=== PATIENT | female | born 1970 | race African-American/Black ===

== ENCOUNTER 2018-07-15 16:20 | Emergency (ER) | payer SELFPAY ==
[2018-07-15] MEDS ORDERED: KETOROLAC 30 MG/ML INJ ONE (17:01)
[2018-07-15] MEDS ORDERED: NA CHLORIDE 0.9% 1,000 ML ONE (17:01)
[2018-07-15 17:09] LABS: Absolute Lymphocytes (CBC) 1.4 K/uL (0.7-4.9); Absolute Monocytes 0.6 K/uL (0.1-1.3); Absolute Neutrophil 7.3 K/uL (1.8-8.0); Eosinophils % 1.4 % (0-4.4); Hematocrit 41.6 % (36.0-45.0); Lymphocytes % 14.2 % (15.3-44.8); MCH 30.2 pg (27.0-35.0); MCV 89.9 fL (80-100); MPV 8.2 fL (7.6-11.3); Monocytes % 6.7 % (3.3-12.3); RBC Red Blood Cell Count 4.62 M/uL (3.86-4.86)
--- NOTE | 2018-07-15 17:18 | RAD REPORT ---
EXAM DESCRIPTION: CT - Stone Protocol - 07/15/2018 5:06 pm CLINICAL HISTORY: Abdominal pain. Right flank pain COMPARISON: 2015 TECHNIQUE: Computed axial tomography of the abdomen pelvis was obtained without oral or IV contrast. Lack of IV and oral contrast limits evaluation of solid organs, bowel, and vessels. Coronal reformat matthew images were obtained and reviewed. All CT scans are performed using dose optimization technique as appropriate and may include automated exposure control or mA/KV adjustment according to patient size. FINDINGS: Bilateral renal calculi. Extrarenal pelves. Dilatation right renal calyces. Marked dilatat ion of the right extrarenal pelvis. A 9 millimeter calculus right ureteral pelvic junction Hounsfield unit 960 Small hepatic cysts. Spleen, pancreas and adrenals appear grossly normal There is no evidence of diverticulitis. The appendix appears normal. 2 centimeter right ovarian cyst. Small amount of free fluid IMPRESSION: 9 millimeter calculus right ureteral pelvic junction. Marked dilatation of the right ext rarenal pelvis. Mild dilatation of the right renal calices
[2018-07-15 17:27] LABS: Albumin 3.7 g/dL (3.4-5.0); Bilirubin Direct 0.1 mg/dL (0-0.2); Bilirubin Total 0.5 mg/dL (0.2-1.0); Potassium 3.7 mmol/L (3.5-5.1); Protein, Total 7.5 g/dL (6.4-8.2)
[2018-07-15 17:54] LABS: Urine Blood 2+ (NEG); Urine Glucose NEGATIVE (NEG); Urine Protein 2+ (NEG); Urine pH 8.5 (5.0-7.0)
[2018-07-15 17:54] LABS: Urine Amorphous Sediment 2+ /HPF (NONE SEEN); Urine Bacteria 20-50 /HPF (<20); Urine Culture Reflex Order NOT NEEDED; Urine RBC 20-50 /HPF (NONE SEEN)
--- NOTE | 2018-07-15 18:51 | RAD REPORT ---
EXAM DESCRIPTION: RAD - Abdomen 1 View (KUB) - 07/15/2018 6:42 pm CLINICAL HISTORY: Abdomen pain. FINDINGS: The bowel gas pattern is unremarkable. A 9 millimeter calculus adjacent to the right aspect of the L4 vertebral body lies within a dilated r ight renal pelvis
--- NOTE | 2018-07-15 19:00 | ER ---
Nurse's Notes [facility] Name: Joanna Lim Age: 48 yrs Sex: Female : 1970 Arrival Date: 07/15/2018 Time: 16:24 Bed 19 Private MD: None, None Diagnosis: Calculus right ureteral pelvic junction Presentation: 07/15 16:34 Presenting complaint: Patient states: right flank pain and RLQ pain. Diarrhea sv yesterday. Transition of care: patient was not received from another setting of care. Onset of symptoms was July 14, 2018. Care prior to arrival: None. 16:34 Method Of Arrival: Ambulatory sv 16:34 Acuity: JAYSHREE 3 sv 16:44 Risk Assessment: Do you want to hurt yourself or someone else? Patient reports no rv desire to harm self or others. Initial Sepsis Screen: Does the patient meet any 2 criteria? No. Patient's initial sepsis screen is negative. Does the patient have a suspected source of infection? No. Patient's initial sepsis screen is negative. Triage Assessment: 16:36 General: Appears in no apparent distress. uncomfortable, Behavior is calm, cooperative. sv Pain: Complains of pain in posterior aspect of right lateral abdomen, anterior aspect of right lateral abdomen and right lower quadrant Pain currently is 7 out of 10 on a pain scale. Neuro: Level of Consciousness is awake, alert, obeys commands, Oriented to person, place, time, situation, Moves all extremities. Full function Gait is steady. Respiratory: Respiratory effort is even, unlabored, Respiratory pattern is regular, symmetrical. GI: Reports lower abdominal pain. 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 - Social history:: Smoking status: Patient/guardian denies using tobacco. - Ebola Screening: : No symptoms or risks identified at this time. Screenin:43 Abuse screen: Denies threats or abuse. Denies injuries from another. Nutritional rv screening: No deficits noted. Tuberculosis screening: No symptoms or risk factors identified. Fall Risk None identified. Assessment: 16:42 Reassessment:. General: Appears in no apparent distress. uncomfortable, Behavior is rv calm, cooperative. Pain: Complains of pain in right lower quadrant Pain radiates to back Pain currently is 7 out of 10 on a pain scale. Neuro: Level of Consciousness is awake, alert, obeys commands, Oriented to person, place, time, situation. Cardiovascular: Capillary refill < 3 seconds. Respiratory: Breath sounds are clear bilaterally. GI: Bowel sounds present X 4 quads. Abd is soft and non tender X 4 quads. : No signs and/or symptoms were reported regarding the genitourinary system. EENT: No signs and/or symptoms were reported regarding the EENT system. Derm: Skin is intact. Musculoskeletal: No signs and/or symptoms reported regarding the musculoskeletal system. 18:28 Reassessment: Patient appears in no apparent distress at this time. rv 19:05 Reassessment: Patient appears in no apparent distress at this time. No changes from jd3 previously documented assessment. Patient and/or family updated on plan of care and expected duration. Pain level reassessed. Patient is alert, oriented x 3, equal unlabored respirations, skin warm/dry/pink. awaiting X-ray film before discharge. 20:16 Reassessment: Patient appears in no apparent distress at this time. No changes from jd3 previously documented assessment. Patient and/or family updated on plan of care and expected duration. Pain level reassessed. Patient is alert, oriented x 3, equal unlabored respirations, skin warm/dry/pink. Vital Signs: 16:35 BP 137 / 79; Pulse 78; Resp 20; Temp 98.4; Pulse Ox 99% ; Weight 98.88 kg; Height 5 ft. sv 9 in. (175.26 cm); Pain 7/10; 17:23 BP 131 / 90; Pulse 85; Resp 16; Pulse Ox 97% on R/A; rv 18:36 BP 138 / 90; Pulse 86; Resp 16; Pulse Ox 100% on R/A; rv 19:06 BP 136 / 89; Pulse 73; Resp 17 S; Pulse Ox 98% on R/A; jd3 20:18 Pulse 76; Resp 18 S; Pulse Ox 99% on R/A; jd3 16:35 Body Mass Index 32.19 (98.88 kg, 175.26 cm) sv ED Course: 16:24 Patient arrived in ED. dl4 16:25 None, None is Private Physician. dl4 16:35 Triage completed. sv 16:35 Arm band placed on. sv 16:40 Vel Curtis, GEOFF is PHCP. pm1 16:40 Steven Meehan MD is Attending Physician. pm1 16:44 Patient has correct armband on for positive identification. Bed in low position. Call rv light in reach. Side rails up X 1. Pulse ox on. NIBP on. 17:00 Inserted saline lock: 20 gauge in right antecubital area, using aseptic technique. rv Blood collected. 17:04 CT Stone Protocol In Process Unspecified. EDMS 17:08 Basic Metabolic Panel Sent. rv 17:08 CBC with Diff Sent. rv 17:08 Hepatic Function Sent. rv 17:08 Creatinine for Radiology Sent. rv 17:08 Lipase Sent. rv 17:37 Urine Culture Sent. rv 17:37 Urine Microscopic Only Sent. rv 18:41 X-ray completed. Portable x-ray completed in exam room. Patient tolerated procedure la2 well. 18:42 Abdomen 1 View (KUB) XRAY In Process Unspecified. EDMS 18:59 Lizzie Schmitt MD is Referral Physician. pm1 19:05 Toni Mcnally, JULIENNE is Primary Nurse. jd3 20:18 No provider procedures requiring assistance completed. jd3 21:00 IV discontinued, intact, bleeding controlled, No redness/swelling at site. Pressure jd3 dressing applied. Administered Medications: 17:00 Drug: NS 0.9% 1000 ml Route: IV; Rate: 1000 ml; Site: right antecubital; rv 19:07 Follow up: Response: No adverse reaction; IV Status: Completed infusion; IV Intake: jd3 1000ml 17:00 Drug: TORadol 30 mg Route: IVP; Site: right antecubital; rv 17:37 Follow up: Response: Pain is decreased rv 20:59 Drug: Bactrim (160 mg-800 mg (DS) 1 tablet Route: PO; jd3 20:59 Follow up: Response: Medication administered at discharge. jd3 20:59 Drug: UltRAM 50 mg Route: PO; jd3 20:59 Follow up: Response: Medication administered at discharge. jd3 Intake: 19:07 IV: 1000ml; Total: 1000ml. jd3 Outcome: 18:59 Discharge ordered by . pm1 20:18 Condition: stable jd3 20:59 Discharged to home ambulatory, with family. jd3 20:59 Discharge instructions given to patient, family, Instructed on discharge instructions, follow up and referral plans. medication usage, Demonstrated understanding of instructions, follow-up care, medications, Prescriptions given X 2. 21:00 Patient left the ED. jd3 Addendum: 07/18/2018 09:05 Addendum: Culture Results: Positive urine culture. Bacteria is resistant to, has s s intermediate sensitivity, or is not tested against prescribed antibiotics. Report given to JAVED for further evaluation and then to food editor for follow up with patient. Phone call Attempt #1 called patient, no answer, left VM. Certified letter sent to listed address for patient. Signatures: Dispatcher Soft Tissue Regeneration EDMS Nadege Gipson RN RN sv Smirch, Shelby, RN RN ss Marinas, Patrick, GEOFF BROKERAGE OFFICE MANAGER pm1 Nelli Contreras la2 Toni Mcnally RN RN jd3 Vicente, Ronaldo, RN RN rv Luna, David dl4 Corrections: (The following items were deleted from the chart) 07/15 16:37 16:35 Pulse 78bpm; Resp 20bpm; Pulse Ox 99%; Temp 98.4F; 98.88 kg; Height 5 ft. 9 in.; sv BMI: 32.1; Pain 7/10; sv 20:18 19:06 BP 138 / 90; Pulse 73bpm; Resp 17bpm; Spontaneous; Pulse Ox 98% RA; jd3 jd3 20:18 19:06 Pulse 76bpm; Resp 18bpm; Spontaneous; Pulse Ox 99% RA; jd3 jd3
--- NOTE | 2018-07-15 19:00 | EDPHYS ---
Physician Documentation [facility] Name: Joanna Lim Age: 48 yrs Sex: Female : 1970 Arrival Date: 07/15/2018 Time: 16:24 Bed 19 Private MD: None, None ED Physician Steven Meehan HPI: 07/15 17:13 This 48 yrs old Black Female presents to ER via Ambulatory with complaints of Right pm1 flank pain. 17:15 The patient complains of pain in the right low back. Location: right groin. Onset: The pm1 symptoms/episode began/occurred yesterday. Modifying factors: The symptoms are alleviated by nothing. the symptoms are aggravated by nothing. Associated signs and symptoms: Pertinent negatives: diarrhea, dysuria, fever, nausea, vomiting. Severity of pain: in the emergency department the pain is actually worse. The patient has experienced similar episodes in the past, a few times, today's symptoms are similar, to previous kidney stone. The patient has been recently seen by a physician: completed some antibiotics yesterday. Possibly had a UTI. . 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 - Social history:: Smoking status: Patient/guardian denies using tobacco. - Ebola Screening: : No symptoms or risks identified at this time. ROS: 17:15 Constitutional: Negative for fever, chills, and weight loss, Eyes: Negative for injury, pm1 pain, redness, and discharge, ENT: Negative for injury, pain, and discharge, Neck: Negative for injury, pain, and swelling, Cardiovascular: Negative for chest pain, palpitations, and edema, Respiratory: Negative for shortness of breath, cough, wheezing, and pleuritic chest pain, Abdomen/GI: Negative for abdominal pain, nausea, vomiting, diarrhea, and constipation. 17:15 : Negative for injury, bleeding, discharge, and swelling, MS/Extremity: Negative for injury and deformity, Skin: Negative for injury, rash, and discoloration, Neuro: Negative for headache, weakness, numbness, tingling, and seizure. 17:15 Back: Positive for flank pain, on the right, Negative for decreased range of motion. Exam: 17:15 Constitutional: This is a well developed, well nourished patient who is awake, alert, pm1 and in no acute distress. Head/Face: Normocephalic, atraumatic. Eyes: Pupils equal round and reactive to light, extra-ocular motions intact. Lids and lashes normal. Conjunctiva and sclera are non-icteric and not injected. Cornea within normal limits. Periorbital areas with no swelling, redness, or edema. ENT: Nares patent. No nasal discharge, no septal abnormalities noted. Tympanic membranes are normal and external auditory canals are clear. Oropharynx with no redness, swelling, or masses, exudates, or evidence of obstruction, uvula midline. Mucous membranes moist. Neck: Trachea midline, no thyromegaly or masses palpated, and no cervical lymphadenopathy. Supple, full range of motion without nuchal rigidity, or vertebral point tenderness. No Meningismus. Chest/axilla: Normal chest wall appearance and motion. Nontender with no deformity. No lesions are appreciated. Cardiovascular: Regular rate and rhythm with a normal S1 and S2. No gallops, murmurs, or rubs. Normal PMI, no JVD. No pulse deficits. Respiratory: Lungs have equal breath sounds bilaterally, clear to auscultation and percussion. No rales, rhonchi or wheezes noted. No increased work of breathing, no retractions or nasal flaring. Abdomen/GI: Soft, non-tender, with normal bowel sounds. No distension or tympany. No guarding or rebound. No evidence of tenderness throughout. Back: No spinal tenderness. No costovertebral tenderness. Full range of motion. Skin: Warm, dry with normal turgor. Normal color with no rashes, no lesions, and no evidence of cellulitis. MS/ Extremity: Pulses equal, no cyanosis. Neurovascular intact. Full, normal range of motion. 17:15 Neuro: Orientation: is normal, Motor: is normal, moves all fours. Vital Signs: 16:35 BP 137 / 79; Pulse 78; Resp 20; Temp 98.4; Pulse Ox 99% ; Weight 98.88 kg; Height 5 ft. sv 9 in. (175.26 cm); Pain 7/10; 17:23 BP 131 / 90; Pulse 85; Resp 16; Pulse Ox 97% on R/A; rv 18:36 BP 138 / 90; Pulse 86; Resp 16; Pulse Ox 100% on R/A; rv 19:06 BP 136 / 89; Pulse 73; Resp 17 S; Pulse Ox 98% on R/A; jd3 20:18 Pulse 76; Resp 18 S; Pulse Ox 99% on R/A; jd3 16:35 Body Mass Index 32.19 (98.88 kg, 175.26 cm) sv MDM: 16:40 Patient medically screened. iva 17:39 Data reviewed: vital signs. Data interpreted: Pulse oximetry: on room air is 99 %. pm1 Interpretation: normal. Counseling: I had a detailed discussion with the patient and/or guardian regarding: the historical points, exam findings, and any diagnostic results supporting the discharge/admit diagnosis, lab results, radiology results, the need for further work-up and treatment in the hospital. 17:43 Physician consultation: Lizzie Schmitt MD was called at 17:44, was contacted at 17:44, pm1 regarding consult, patient's condition, and will see patient will put stent. tomorrow, would like admission per Dr. Heena Velez MD NPO. 17:48 Physician consultation: Lizzie Schmitt MD was contacted at 17:48, regarding Dr. Schmitt pm1 called back and requested KUB and for the patient to bring a copy with her to the office. Right sided lying position at home to help the stone go back into the kidney. Follow up in the office on Tuesday morning. Discharge patient home with Ultram. . 18:06 ED course: patient has recently completed antibiotic, that is possibly cipro. Therefore pm1 I will give the patient bactrim as a prescription. 07/15 16:28 Order name: Urine Culture [facility] 07/15 16:28 Order name: Urine Microscopic Only; Complete Time: 17:59 snw 07/15 16:44 Order name: Basic Metabolic Panel; Complete Time: 17:28 pm1 07/15 16:44 Order name: CBC with Diff; Complete Time: 17:21 pm1 07/15 16:44 Order name: Creatinine for Radiology; Complete Time: 17:28 pm1 07/15 16:44 Order name: Hepatic Function; Complete Time: 17:28 pm1 07/15 16:44 Order name: Lipase; Complete Time: 17:28 pm1 07/15 16:44 Order name: CT Stone Protocol; Complete Time: 17:21 pm1 07/15 17:37 Order name: Urine Dipstick--Ancillary (enter results); Complete Time: 17:59 ss 07/15 17:37 Order name: Urine --Ancillary (enter results); Complete Time: 17:59 ss 07/15 17:53 Order name: Abdomen 1 View (KUB) XRAY; Complete Time: 18:59 pm1 07/15 16:28 Order name: Urine Dipstick-Ancillary (obtain specimen); Complete Time: 17:37 snw 07/15 16:44 Order name: IV Saline Lock; Complete Time: 17:08 pm1 12 16:44 Order name: Labs collected and sent; Complete Time: 17:08 pm1 07/15 16:44 Order name: Urine Test (obtain specimen); Complete Time: 17:37 pm1 Administered Medications: 17:00 Drug: NS 0.9% 1000 ml Route: IV; Rate: 1000 ml; Site: right antecubital; rv 19:07 Follow up: Response: No adverse reaction; IV Status: Completed infusion; IV Intake: jd3 1000ml 17:00 Drug: TORadol 30 mg Route: IVP; Site: right antecubital; rv 17:37 Follow up: Response: Pain is decreased rv 20:59 Drug: Bactrim (160 mg-800 mg (DS) 1 tablet Route: PO; jd3 20:59 Follow up: Response: Medication administered at discharge. jd3 20:59 Drug: UltRAM 50 mg Route: PO; jd3 20:59 Follow up: Response: Medication administered at discharge. jd3 Disposition: 07/15/18 18:59 Discharged to Home. Impression: Calculus right ureteral pelvic junction. - Condition is Stable. - Discharge Instructions: Kidney Stones, Dietary Guidelines to Help Prevent Kidney Stones. - Prescriptions for Ultram 50 mg Oral Tablet - take 1 tablet by ORAL route every 6 hours As needed; 20 tablet. Bactrim DS 800- 160 mg Oral Tablet - take 1 tablet by ORAL route every 12 hours for 10 days; 20 tablet. - Medication Reconciliation Form, Thank You Letter, Antibiotic Education, Prescription Opioid Use form. - Follow up: Emergency Department; When: As needed; Reason: Worsening of condition. Follow up: Lizzie Schmitt; When: 07/17/2018; Reason: Recheck today's complaints, Continuance of care, Re-evaluation by your physician. - Problem is new. - Symptoms have improved. Addendum: 07/17/2018 06:31 Co-signature as Attending Physician, Steven Meehan MD I agree with the assessment and c mcgovern plan of care. Signatures: Dispatcher [employer] Nadege He RN RN sv Anderson, Corey, MD MD cha Therrien, Shelly, HEAD OF SALES-C HEAD OF SALES-[employer] Vel Curtis, GEOFF PHOTONICS ENGINEERING TECHNICIAN pm1 Toni Mcnally RN RN jd3 Jerel Spaulding RN RN rv Corrections: (The following items were deleted from the chart) 07/15 17:39 17:15 Constitutional: This is a well developed, well nourished patient who is awake, pm1 alert, and in no acute distress. Head/Face: Normocephalic, atraumatic. Eyes: Pupils equal round and reactive to light, extra-ocular motions intact. Lids and lashes normal. Conjunctiva and sclera are non-icteric and not injected. Cornea within normal limits. Periorbital areas with no swelling, redness, or edema. ENT: Nares patent. No nasal discharge, no septal abnormalities noted. Tympanic membranes are normal and external auditory canals are clear. Oropharynx with no redness, swelling, or masses, exudates, or evidence of obstruction, uvula midline. Mucous membranes moist. Neck: Trachea midline, no thyromegaly or masses palpated, and no cervical lymphadenopathy. Supple, full range of motion without nuchal rigidity, or vertebral point tenderness. No Meningismus. Chest/axilla: Normal chest wall appearance and motion. Nontender with no deformity. No lesions are appreciated. Cardiovascular: Regular rate and rhythm with a normal S1 and S2. No gallops, murmurs, or rubs. Normal PMI, no JVD. No pulse deficits. Respiratory: Lungs have equal breath sounds bilaterally, clear to auscultation and percussion. No rales, rhonchi or wheezes noted. No increased work of breathing, no retractions or nasal flaring. Abdomen/GI: Soft, non-tender, with normal bowel sounds. No distension or tympany. No guarding or rebound. No evidence of tenderness throughout. Back: No spinal tenderness. No costovertebral tenderness. Full range of motion. Skin: Warm, dry with normal turgor. Normal color with no rashes, no lesions, and no evidence of cellulitis. MS/ Extremity: Pulses equal, no cyanosis. Neurovascular intact. Full, normal range of motion. pm1 21:00 18:59 07/15/2018 18:59 Discharged to Home. Impression: Calculus right ureteral pelvic jd3 junction. Condition is Stable. Discharge Instructions: Kidney Stones, Dietary Guidelines to Help Prevent Kidney Stones. Prescriptions for Ultram 50 mg Oral Tablet - take 1 tablet by ORAL route every 6 hours As needed; 20 tablet, Bactrim DS 800-160 mg Oral Tablet - take 1 tablet by ORAL route every 12 hours for 10 days; 20 tablet. and Forms are Medication Reconciliation Form, Thank You Letter, Antibiotic Education, Prescription Opioid Use. Follow up: Emergency Department; When: As needed; Reason: Worsening of condition. Follow up: Lizzie Schmitt; When: 07/17/2018; Reason: Recheck today's complaints, Continuance of care, Re-evaluation by your physician. Problem is new. Symptoms have improved. pm1
[2018-07-15] MEDS ORDERED: SMZ./TMP. 800/160 MG TABLET ONE (21:00)
[2018-07-15] MEDS ORDERED: TRAMADOL HCL 50 MG TAB ONE (21:01)
[2018-07-15 21:13] VITALS: TEMP 98.4
[2018-07-15 21:17] VITALS: BP 136/89
[2018-07-15 21:18] VITALS: O2SAT 99
== END 2018-07-15 21:00 | disposition home or self-care (01) ==
LOC: ER 16:20
DX: N20.0 Calculus of kidney (principal); Z87.442 Personal history of urinary calculi; Z88.0 Allergy status to penicillin
CPT/HCPCS: 36415; 74018; 74176; 76377; 80048; 80076; 81003; 81015; 81025; 83690; 85025; 87077; 87086; 87088; 87186; 96361; 96374; 99284; J7030

== ENCOUNTER 2018-07-16 19:48 | Inpatient (IN) | payer SELFPAY ==
[2018-07-16 21:02] LABS: Absolute Lymphocytes (CBC) 1.9 K/uL (0.7-4.9); Absolute Monocytes 0.7 K/uL (0.1-1.3); Absolute Neutrophil 5.7 K/uL (1.8-8.0); Basophils % 0.9 % (0-1.3); Eosinophils % 2.5 % (0-4.4); Lymphocytes % 22.2 % (15.3-44.8); MCH 30.5 pg (27.0-35.0); MCV 90.6 fL (80-100); MPV 8.2 fL (7.6-11.3); Monocytes % 8.4 % (3.3-12.3); RBC Red Blood Cell Count 4.52 M/uL (3.86-4.86)
[2018-07-16 21:08] LABS: Urine Blood 3+ (NEG); Urine Glucose NEGATIVE (NEG); Urine Protein 1+ (NEG); Urine pH 7.5 (5.0-7.0)
[2018-07-16 21:11] LABS: Albumin 3.8 g/dL (3.4-5.0); Bilirubin Direct 0.1 mg/dL (0-0.2); Bilirubin Total 0.4 mg/dL (0.2-1.0); Potassium 3.7 mmol/L (3.5-5.1); Protein, Total 7.4 g/dL (6.4-8.2)
[2018-07-16] MEDS ORDERED: KETOROLAC 30 MG/ML INJ ONE (21:29)
--- NOTE | 2018-07-16 21:31 | ER ---
Nurse's Notes [facility] Name: Joanna Lim Age: 48 yrs Sex: Female : 1970 Arrival Date: 07/16/2018 Time: 20:03 Bed 18 Private MD: Diagnosis: Hydronephrosis with renal and ureteral calculous obstruction Presentation: 07/16 20:06 Presenting complaint: EMS states: "She was seen yesterday for a 9 mm kidney stone that jd3 had not interred the ureter yet so she was discharged home to see Dr. Schmitt. Today she reports the pain that is more continuous and her tramadol has not helped.". Transition of care: patient was not received from another setting of care. Onset of symptoms was July 16, 2018. Risk Assessment: Do you want to hurt yourself or someone else? Patient reports no desire to harm self or others. Initial Sepsis Screen: Does the patient meet any 2 criteria? No. Patient's initial sepsis screen is negative. Does the patient have a suspected source of infection? No. Patient's initial sepsis screen is negative. Care prior to arrival: Medication(s) given: pt reported taking tramadol around 1630. 20:06 Method Of Arrival: EMS: [facility] jd3 20:06 Acuity: JAYSHREE 3 jd3 Triage Assessment: 20:19 General: Appears in no apparent distress. Behavior is calm, cooperative. Pain: ak1 Complains of pain in abdomen and pelvis. EENT: No signs and/or symptoms were reported regarding the EENT system. Neuro: No deficits noted. Cardiovascular: No deficits noted. Respiratory: No deficits noted. GI: Reports pain due to kidney stone. pt seen in ER last night dx 9mm stone in kidney. pt c/o pain that prescribed pain medication can not control at home. : Reports pain pt with 9mm kidney stone. Derm: No signs and/or symptoms reported regarding the dermatologic system. Musculoskeletal: No signs and/or symptoms reported regarding the musculoskeletal system. 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 - Social history:: Smoking status: Patient/guardian denies using tobacco. - Ebola Screening: : Patient negative for fever greater than or equal to 101.5 degrees Fahrenheit, and additional compatible Ebola Virus Disease symptoms. Screenin:13 Abuse screen: Denies threats or abuse. Nutritional screening: No deficits noted. jd3 Tuberculosis screening: No symptoms or risk factors identified. Fall Risk Ambulatory Aid- None/Bed Rest/Nurse Assist (0 pts). Gait- Normal/Bed Rest/Wheelchair (0 pts) Mental Status- Oriented to own ability (0 pts). Total Vicente Fall Scale indicates No Risk (0-24 pts). Assessment: 20:21 GI: Bowel sounds present X 4 quads. Abd is soft and non tender X 4 quads. ak1 20:21 Reassessment: Patient appears in no apparent distress at this time. No changes from ak1 previously documented assessment. see triage assessment. 21:49 Reassessment: pt given water and orange juice, pt NPO after midnight. ak1 Vital Signs: 20:12 BP 160 / 97; Pulse 82; Resp 18 S; Temp 98.4(O); Pulse Ox 98% on R/A; Weight 99.34 kg jd3 (R); Height 5 ft. 9 in. (175.26 cm) (R); Pain 10/10; 21:50 BP 138 / 99; Pulse 84; Resp 18; Pulse Ox 98% on R/A; Pain 0/10; oe 20:12 Body Mass Index 32.34 (99.34 kg, 175.26 cm) [facility] ED Course: 20:03 Patient arrived in ED. rg4 20:03 Meir Lara MD is Attending Physician. tw4 20:03 Phoenix Schreiber PA is PHCP. jr8 20:10 Triage completed. jd3 20:13 Arm band placed on. jd3 20:13 Patient has correct armband on for positive identification. Bed in low position. Call [facility] light in reach. Side rails up X 1. 20:19 Sasha Farnsworth, RN is Primary Nurse. ak1 20:49 Inserted saline lock: 20 gauge in right antecubital area, using aseptic technique. oe Blood collected. 21:09 No provider procedures requiring assistance completed. ak1 21:30 Rocio Kilpatrick MD is Hospitalizing Provider. jr8 21:47 XRAY KUB In Process Unspecified. EDMS 22:36 Patient admitted, IV remains in place. ak1 Administered Medications: 21:22 Drug: TORadol 30 mg Route: IVP; Site: right antecubital; ak1 21:33 Follow up: Response: No adverse reaction ak1 21:45 Drug: Rocephin 1 grams Route: IV; Rate: calculated rate; Site: right antecubital; ak1 21:45 Follow up: IV Status: Completed infusion ak1 Outcome: 21:30 Decision to Hospitalize by Provider. jr8 22:36 Admitted to Med/surg accompanied by tech, via wheelchair, room 219, with chart, Report ak1 called to Annette 22:36 Condition: stable 22:36 Instructed on the need for admit. 22:53 Patient left the ED. jd3 Signatures: Dispatcher [employer] EDNE Phoenix Schreiber PA PA jr8 Sasha Farnsworth RN RN ak1 Shannon Oliver 4 Golden Fleming Jonathon, JULIENNE RN jd3 Meir Lara MD MD tw4
--- NOTE | 2018-07-16 21:31 | EDPHYS ---
Physician Documentation [facility] Name: Joanna Lim Age: 48 yrs Sex: Female : 1970 Arrival Date: 07/16/2018 Time: 20:03 Bed 18 Private MD: ED Physician Meir Lara HPI: 07/16 20:36 This 48 yrs old Black Female presents to ER via EMS with complaints of Possible Kidney jr8 Stone. 20:36 Onset: The symptoms/episode began/occurred acutely, yesterday. Associated signs and jr8 symptoms: Pertinent positives: abdominal pain. Modifying factors: The patient symptoms are alleviated by nothing, the patient symptoms are aggravated by nothing. The patient has not experienced similar symptoms in the past. The patient has been recently seen at the [facility] Emergency Department, yesterday, for similar complaints labs were performed, X-rays were performed, CT scan was performed, was given a prescription for antibiotics, was given a prescription for pain medications, the patient was told to return for a recheck. Patient was diagnosed with ureteral pelvic junction stone. Dr. Schmitt consulted and will see patient on Tuesday for possible stent placement. Came back today with worsening of pain . 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 - Social history:: Smoking status: Patient/guardian denies using tobacco. - Ebola Screening: : Patient negative for fever greater than or equal to 101.5 degrees Fahrenheit, and additional compatible Ebola Virus Disease symptoms. ROS: 20:36 Eyes: Negative for injury, pain, redness, and discharge, ENT: Negative for injury, jr8 pain, and discharge, Neck: Negative for injury, pain, and swelling, Cardiovascular: Negative for chest pain, palpitations, and edema, Respiratory: Negative for shortness of breath, cough, wheezing, and pleuritic chest pain, MS/Extremity: Negative for injury and deformity, Skin: Negative for injury, rash, and discoloration, Neuro: Negative for headache, weakness, numbness, tingling, and seizure. 20:36 Abdomen/GI: Positive for abdominal pain, nausea, Negative for vomiting, diarrhea, abdominal distension, anorexia, dysphagia, hematemesis, black/tarry stool, rectal pain, rectal bleeding, bowel incontinence, flatulence. 20:36 Back: Positive for flank pain, on the right. Exam: 20:36 Eyes: Pupils equal round and reactive to light, extra-ocular motions intact. Lids and jr8 lashes normal. Conjunctiva and sclera are non-icteric and not injected. Cornea within normal limits. Periorbital areas with no swelling, redness, or edema. ENT: Nares patent. No nasal discharge, no septal abnormalities noted. Tympanic membranes are normal and external auditory canals are clear. Oropharynx with no redness, swelling, or masses, exudates, or evidence of obstruction, uvula midline. Mucous membranes moist. Neck: Trachea midline, no thyromegaly or masses palpated, and no cervical lymphadenopathy. Supple, full range of motion without nuchal rigidity, or vertebral point tenderness. No Meningismus. Cardiovascular: Regular rate and rhythm with a normal S1 and S2. No gallops, murmurs, or rubs. Normal PMI, no JVD. No pulse deficits. Respiratory: Lungs have equal breath sounds bilaterally, clear to auscultation and percussion. No rales, rhonchi or wheezes noted. No increased work of breathing, no retractions or nasal flaring. Skin: Warm, dry with normal turgor. Normal color with no rashes, no lesions, and no evidence of cellulitis. MS/ Extremity: Pulses equal, no cyanosis. Neurovascular intact. Full, normal range of motion. Neuro: Awake and alert, GCS 15, oriented to person, place, time, and situation. Cranial nerves II-XII grossly intact. Motor strength 5/5 in all extremities. Sensory grossly intact. Cerebellar exam normal. Normal gait. 20:36 Abdomen/GI: Inspection: obese Bowel sounds: active, all quadrants, Palpation: soft, in all quadrants, moderate abdominal tenderness, in the anterior aspect of right lateral abdomen and right lower quadrant, rebound tenderness, is not appreciated, voluntary guarding, is not appreciated, involuntary guarding, is not appreciated, no appreciated organomegaly, Indicators: McBurney's point is not tender, Wallace's sign is negative, Rovsing's sign is negative, Liver: tenderness, is not appreciated. 20:36 Back: pain, that is mild, of the right flank. Vital Signs: 20:12 BP 160 / 97; Pulse 82; Resp 18 S; Temp 98.4(O); Pulse Ox 98% on R/A; Weight 99.34 kg jd3 (R); Height 5 ft. 9 in. (175.26 cm) (R); Pain 10/10; 21:50 BP 138 / 99; Pulse 84; Resp 18; Pulse Ox 98% on R/A; Pain 0/10; oe 20:12 Body Mass Index 32.34 (99.34 kg, 175.26 cm) jd3 MDM: 20:03 Patient medically screened. tw4 21:27 Data reviewed: vital signs, nurses notes, old medical records, lab test result(s), jr8 radiologic studies, plain films. Data interpreted: Pulse oximetry: on room air is 98 %. Interpretation: normal. Counseling: I had a detailed discussion with the patient and/or guardian regarding: the historical points, exam findings, and any diagnostic results supporting the discharge/admit diagnosis, lab results, radiology results, the need for further work-up and treatment in the hospital. Physician consultation: Lizzie Schmitt MD was called at 21:28, was contacted at 21:28, regarding admission, to the medical/surgical unit. consult, patient's condition, and will see patient in inpatient room, would like admission per Dr. Rocio Kilpatrick MD. 07/16 20:12 Order name: Basic Metabolic Panel; Complete Time: 21:[address] [facility] 07/16 20:12 Order name: CBC with Diff; Complete Time: 21:[address] [facility] 07/16 20:12 Order name: Creatinine for Radiology; Complete Time: 21:[address] [facility] 07/16 20:12 Order name: Hepatic Function; Complete Time: 21:[address] [facility] 07/16 20:12 Order name: Lipase; Complete Time: 21:[address] [facility] 07/16 20:36 Order name: Urine Dipstick--Ancillary (enter results); Complete Time: 21: [facility] 07/16 20:36 Order name: Urine --Ancillary (enter results); Complete Time: 21: [facility] 07/16 21:47 Order name: Comprehensive Metabolic Panel EDMO 07/16 21:47 Order name: Comprehensive Metabolic Panel EDMO 07/16 21:47 Order name: Magnesium EDMS 07/16 21:47 Order name: Magnesium EDMS 07/16 21:47 Order name: Phosphorus EDMS 07/16 21:47 Order name: Phosphorus EDMS 07/16 21:48 Order name: CBC with Automated Diff EDMS 07/16 20:12 Order name: IV Saline Lock; Complete Time: 20:[address] [facility] 07/16 20:12 Order name: Labs collected and sent; Complete Time: 20:[address] [facility] 07/16 20:12 Order name: Urine Dipstick-Ancillary (obtain specimen); Complete Time: 20:[address] [facility] 07/16 21:21 Order name: XRAY LUDMILAB; Complete Time: 22:[address] [facility] 07/16 21:47 Order name: CONS Physician Consult EDMO 07/16 21:48 Order name: NPO EDMO 07/16 21:48 Order name: CBC with Automated Diff EDMS Administered Medications: 21:22 Drug: TORadol 30 mg Route: IVP; Site: right antecubital; ak1 21:33 Follow up: Response: No adverse reaction ak1 21:45 Drug: Rocephin 1 grams Route: IV; Rate: calculated rate; Site: right antecubital; ak1 21:45 Follow up: IV Status: Completed infusion ak1 Disposition: 07/17 01:35 Co-signature as Attending Physician, Meir Lara MD I agree with the assessment and tw4 plan of care. Disposition: 07/16/18 21:30 Hospitalization ordered by Rocio Kilpatrick for Observation. Preliminary diagnosis is Hydronephrosis with renal and ureteral calculous obstruction. - Bed requested for Telemetry/MedSurg (observation). - Status is Observation. jd3 - Condition is Stable. - Problem is new. - Symptoms have improved. UTI on Admission? No Signatures: Dispatcher [employer] EDMO Phoenix Schreiber PA PA jr8 Sasha Farnsworth RN RN ak1 Dayna Oliver RN Toni Whitaker RN RN jd3 Wadley, Terrence, MD MD tw4 Corrections: (The following items were deleted from the chart) 07/16 21:30 21:27 Data reviewed: vital signs, nurses notes, lab test result(s), radiologic studies, jr8 plain films, jr8 22:31 21:30 Hospitalization Ordered by Rocio Kilpatrick MD for Observation. Preliminary cg diagnosis is Hydronephrosis with renal and ureteral calculous obstruction. Bed requested for Telemetry/MedSurg (observation). Status is Observation. Condition is Stable. Problem is new. Symptoms have improved. UTI on Admission? No. jr8 22:53 22:31 07/16/2018 21:30 Hospitalization Ordered by Rocio Kilpatrick MD for Observation. jd3 Preliminary diagnosis is Hydronephrosis with renal and ureteral calculous obstruction. Bed requested for Telemetry/MedSurg (observation). Status is Observation. Condition is Stable. Problem is new. Symptoms have improved. UTI on Admission? No. cg
[2018-07-16] MEDS ORDERED: ONDANSETRON 4 MG/2 ML VIAL IV PRN (21:44)
[2018-07-16] MEDS ORDERED: ACETAMINOPHEN 500 MG TAB PO PRN (21:44)
[2018-07-16] MEDS ORDERED: MAGNESIUM HYDROXIDE 8% 30 ML PO PRN (21:44)
[2018-07-16] MEDS ORDERED: CEFTRIAXONE/SWI 1gm 1 GM/10 ML SYR ONE (21:45)
--- NOTE | 2018-07-16 22:14 | RAD REPORT ---
EXAM DESCRIPTION: RAD - Abdomen 1 View (KUB) - 07/16/2018 9:47 pm CLINICAL HISTORY: renal stone Pain COMPARISON: Abdomen 1 View (KUB) dated 07/15/2018; Stone Protocol dated 07/15/2018 FINDINGS: The bowel gas pattern is non-obstructive. No evidence of free air or pneumatosis. Previous ly noted calcification to the right of the L4 vertebral body is less conspicuous on today's study. Th is may be due to superimposed bowel gas.
[2018-07-16 23:11] VITALS: BMI 31.6
[2018-07-16] MEDS: HYDROMORPHONE HCL 1 MG/ML INJ IV PRN (23:13)
[2018-07-16] MEDS: NA CHLORIDE 0.9% 1,000 ML IV SCH (23:13)
[2018-07-17] MEDS: DIPHENHYDRAMINE 50 MG/ML VIAL IV PRN (02:32)
[2018-07-17] MEDS: Levofloxacin500mg IV 500 MG/100 ML BAG IV SCH (02:33)
[2018-07-17 06:04] LABS: Absolute Lymphocytes (CBC) 2.2 K/uL (0.7-4.9); Absolute Monocytes 0.8 K/uL (0.1-1.3); Absolute Neutrophil 5.7 K/uL (1.8-8.0); Basophils % 0.9 % (0-1.3); Eosinophils % 3.6 % (0-4.4); Hematocrit 38.4 % (36.0-45.0); Lymphocytes % 24.1 % (15.3-44.8); MCH 30.6 pg (27.0-35.0); MCV 89.5 fL (80-100); MPV 8.2 fL (7.6-11.3); Monocytes % 9.1 % (3.3-12.3)
[2018-07-17 06:22] LABS: Urine Appearance CLOUDY; Urine Bilirubin NEGATIVE (NEG); Urine Blood 3+ (NEG); Urine Color YELLOW; Urine Glucose NEGATIVE (NEG); Urine Protein TRACE (NEG); Urine Urobilinogen 0.2 mg/dL (0.2-1.0); Urine pH 6.5 (5.0-7.0)
[2018-07-17 06:25] LABS: Albumin 3.4 g/dL (3.4-5.0); Bilirubin Total 0.5 mg/dL (0.2-1.0); Magnesium 2.1 mg/dL (1.8-2.4); Phosphorus 3.9 mg/dL (2.5-4.9); Potassium 3.9 mmol/L (3.5-5.1); Protein, Total 6.9 g/dL (6.4-8.2)
[2018-07-17 06:26] LABS: Urine Microscopic Reflex ORDER UMIC
[2018-07-17] MEDS ORDERED: POTASSIUM CL SA 10 MEQ TAB PO ONE (06:27)
[2018-07-17 06:31] LABS: Urine Bacteria <20 /HPF (<20); Urine Culture Reflex Order REFLEXED; Urine RBC >50 /HPF (NONE SEEN)
[2018-07-17] MEDS: HYDROMORPHONE HCL 1 MG/ML INJ IV PRN ×2 (07:27→15:24)
[2018-07-17] MEDS: NA CHLORIDE 0.9% 1,000 ML IV SCH ×2 (08:30→17:46)
--- NOTE | 2018-07-17 09:03 | P.HP ---
Certification for Inpatient Patient admitted to: Inpatient With expected LOS: >2 Midnights Patient will require the following post-hospital care: None Practitioner: I am a practitioner with admitting privileges, knowledge of patient current condition, hospital course, and medical plan of care. Services: Services provided to patient in accordance with Admission requirements found in Title 42 Section 412.3 of the Code of Federal Regulations Patient History Date of Service: 07/16/18 Reason for admission: Obstructive uropathy History of Present Illness: Patient is a 48-year-old female came to the hospital with an obstructive uropathy. Patient has some pain in her right flank yesterday. She came into the ER her CT scan revealed a right UVJ stone. This was 9 mm. Patient was having significant pain and on discharge she was scheduled a follow with urology. However, her pain did not improve, and it got progressively worse so she came back into the emergency room. Patient was admitted to the hospital for surgical intervention the morning. Patient low risk for cardiopulmonary complications. Patient denies any significant cardiac disease. No chest pain or shortness of breath. She is a normal performance status with normal comorbidities. She should tolerate the procedure just fine. Allergies Penicillins Allergy (Verified 07/16/18 23:02) Hives Home Medications: Cyclobenzaprine [Flexeril*] 1 tab PO BID PRN 07/16/18 Sulfamethoxazole/Trimethoprim [Sulfamethoxazole-Tmp Ds Tablet] 1 tab PO Q12H 04/25 - Past Medical/Surgical History Has patient received pneumonia vaccine in the past: No Diabetic: No -: Hyperthyroidism -: Yeast infection -: hysterectomy 2016 - Family History Father Medical History: Other (see notes) Notes: kidney ca Mother Medical History: Other (see notes) Notes: alzheimers - Social History Smoking Status: Never smoker Alcohol use: Yes CD- Drugs: No Place of Residence: Home Review of Systems 10-point ROS is otherwise unremarkable Physical Examination - Vital Signs Temperature: 97.4 F Blood Pressure: 113/58 Pulse: 77 Respirations: 18 Pulse Ox (%): 97 - Physical Exam General: Alert, In no apparent distress, Oriented x3 HEENT: Atraumatic, PERRLA, Mucous membr. moist/pink, EOMI, Sclerae nonicteric Neck: Supple, 2+ carotid pulse no bruit, No LAD, Without JVD or thyroid abnormality Respiratory: Clear to auscultation bilaterally, Normal air movement Cardiovascular: Regular rate/rhythm, Normal S1 S2, No murmurs Gastrointestinal: Normal bowel sounds, Soft and benign, Non-distended, No tenderness Musculoskeletal: No clubbing, No swelling, No tenderness Integumentary: No rashes Neurological: Normal gait, Normal speech, Normal strength at 5/5 x4 extr, Normal tone, Sensation intact, Cranial nerves 3-12 intact, Normal affect Lymphatics: No axilla or inguinal lymphadenopathy - Studies Laboratory Data (last 24 hrs) 07/16/18 20:46: Creatinine 1.20 07/16/18 20:46: WBC 8.6, Hgb 13.8, Hct 41.0, Plt Count 280 07/16/18 20:46: Sodium 142, Potassium 3.7, BUN 15, Creatinine 1.10, Glucose 104 , Total Bilirubin 0.4, AST 6 L, ALT 15, Alkaline Phosphatase 82, Lipase 94 Assessment & Plan - Problems (Diagnosis) (1) Obstructive uropathy Current Visit: Yes Status: Acute - Plan Plan: 1. NPO 2. Urology consultation 3. Pain control 4. IV hydration 5. Monitor electrolytes 6. GI and DVT prophylaxis Discharge Plan: Home Plan to discharge in: Greater than 2 days - Advance Directives Does patient have a Living Will: No Does patient have a Durable POA for Healthcare: No - Code Status/Comfort Care Code Status Assessed: Yes Code Status: Full Code Critical Care: No Time Spent Managing PTS Care (In Minutes): 55
--- NOTE | 2018-07-17 13:40 | CON ---
Subjective: This is a pleasant 48-year-old. Unfortunately, she has been having right-sided pain for 9 months now or so. She said she has been to an emergency room and they gave her something for musc le relaxants so she thought that is what she needed. She has been taking muscle relaxants for 9 babatunde hs now along with some NSAIDs. She also thought that her back pain was maybe from the weight of her breasts since she has large breasts. However, the pain became so worse 2 days ago that she came to [facility] emergency room where a CAT scan was done showing a 9 mm stone that was read to be in the right ure teropelvic junction location, Hounsfield units 960. Her pain was well controlled, so she was sent ho [place]. She came back yesterday again with intractable pain, so she was admitted. A KUB was done, but [facility] stone was not seen, possibly due to bowel in the area, but we are planing to repeat her KUB tomorr ow morning. She may be a candidate for an ESWL plus or minus stent. If her stone is not able to see n, we could do ureteroscopy and laser lithotripsy of stone at that time. Allergies: PENICILLIN CAUSES HIVES. Home Medications: Flexeril and Bactrim. Past Medical And Surgical History: Hyperthyroidism, yeast infection, hysterectomy in 2016. Family History: Father had kidney cancer. Mother had Alzheimer's. Social History: Never smoked. She drinks alcohol occasionally. No drug use. She resides at home. Review of Systems: Ten-point review of systems otherwise unremarkable. Physical Examination: Vital Signs: Temperature 97.4, pulse 77, respirations 18, BP 113/58, saturations 97%. General: Alert and oriented, no acute distress, appears to be in good nutritional status. HEENT: Atraumatic, normocephalic. Mucous membranes moist. Neck: Supple. Respiratory: Clear. Cardiovascular: Normal S1, S2. Musculoskeletal: No clubbing. Skin: No rashes. Neurologic: Alert and oriented x3. Cranial nerves were grossly intact. Lymphatics: No lymphadenopathy. Diagnostic Studies: CT scan as mentioned above. Laboratory Data: White count normal at 9.1, hemoglobin and hematocrit 13 and 38, and platelet count 307. Chemistry shows normal sodium 141, potassium 3.9, chloride 109, carbon dioxide 24, BUN 14, crea tinine 0.90. Magnesium normal at 2.1. Urine study showed 3+ blood, greater than 50 RBCs, white cell s 5-10 squamous epithelial cells less than 5, bacteria less than 20, pH 6.5. Assessment: A pleasant lady who has been suffering from 9 months in a lot of pain. She has a 9 mm s tone, Hounsfield units 960, stone appears to be in the upper ureter at the level of L4-L5 area, but w as not seen on the KUB this morning. We will order a KUB tomorrow. If it can be seen on the KUB, we can attempt to do ESWL plus or minus stent. If the stone is not able was seen, we can do cystoscopy , ureteroscopy, and laser lithotripsy of stone. All the general information were given. Alternative s and risks and she wishes to proceed. DANA/SONALI Voice ID: [id number] Report ID: [id number]
--- NOTE | 2018-07-17 13:43 | P.PN ---
Subjective Date of Service: 07/17/18 Chief Complaint: Obstructive uropathy Subjective: No new changes, No C/O voiced Patient seen and examined at bedside. No family at bedside. Chart reviewed and case discussed with nursing staff. Pain has slightly improved with pain medications. Review of Systems As noted Physical Examination - Vital Signs Temperature: 97.4 F Blood Pressure: 113/58 Pulse: 77 Respirations: 18 Pulse Ox (%): 97 - Physical Exam General: Alert, Oriented x3, Mild distress HEENT: Atraumatic, PERRLA, EOMI Neck: Supple, JVD not distended Respiratory: Clear to auscultation bilaterally, Normal air movement Cardiovascular: Regular rate/rhythm, Normal S1 S2 Gastrointestinal: Normal bowel sounds, Tenderness (Lower abdomen) Integumentary: No rashes Neurological: Normal speech, Normal tone, Normal affect Lymphatics: No axilla or inguinal lymphadenopathy - Studies Laboratory Data (last 24 hrs) 07/16/18 20:46: Creatinine 1.20 07/16/18 20:46: WBC 8.6, Hgb 13.8, Hct 41.0, Plt Count 280 07/16/18 20:46: Sodium 142, Potassium 3.7, BUN 15, Creatinine 1.10, Glucose 104 , Total Bilirubin 0.4, AST 6 L, ALT 15, Alkaline Phosphatase 82, Lipase 94 Assessment And Plan - Plan This is a 48-year-old female with: Obstructive uropathy Urology consulted, recommendations appreciated. Continue IV fluids, continue IV antibiotics. Patient can eat today, NPO after midnight for pending procedure (cystoscopy with stent placement) with Dr. Schmitt tomorrow Continue IV pain control. Hyperthyroidism Stable, and not on any home medications. Vital signs stable DVT prophylaxis: None, encouraged ambulation GI prophylaxis: Not needed Diet: Regular, NPO after midnight Disposition: Pending urological surgical intervention tomorrow. Physician Review: Patient Assessed, Agree with Above Assessment and Plan Time Spent Managing PTS Care (In Minutes): 35
[2018-07-18] MEDS: HYDROMORPHONE HCL 1 MG/ML INJ IV PRN ×4 (00:57→22:30)
[2018-07-18] MEDS: Levofloxacin500mg IV 500 MG/100 ML BAG IV SCH (02:40)
[2018-07-18] MEDS: NA CHLORIDE 0.9% 1,000 ML IV SCH ×3 (02:41→23:30)
[2018-07-18] MEDS: DIPHENHYDRAMINE 50 MG/ML VIAL IV PRN (05:05)
[2018-07-18 06:32] LABS: Potassium 4.1 mmol/L (3.5-5.1)
--- NOTE | 2018-07-18 09:30 | RAD REPORT ---
EXAM DESCRIPTION: RAD - Abdomen 1 View (KUB) - 07/18/2018 7:50 am CLINICAL HISTORY: Abdomen pain. FINDINGS: The bowel gas pattern is unremarkable. Right ureteral calculus adjacent to L4 is unchanged
[2018-07-18] MEDS ORDERED: Ringers Lactate 1,000 ML IV ONE (10:14)
[2018-07-18] MEDS ORDERED: CYCLOBENZAPRINE 10 MG TAB PO PRN (11:59)
[2018-07-18] MEDS ORDERED: MIDAZOLAM HCL 2 MG/2 ML INJ ONE (12:11)
[2018-07-18] MEDS ORDERED: FENTANYL CITR 100 MCG/2 ML ONE (12:20)
[2018-07-18] MEDS ORDERED: PROPOFOL 200 MG/20 ML VIAL IV ONE (12:21)
[2018-07-18] MEDS ORDERED: LIDOCAINE 1% MPF 2 ML AMPULE ONE (12:21)
[2018-07-18] MEDS: MEPERIDINE HCL 50 MG/ML AMP ONE ×2 (13:25→13:32)
[2018-07-18] MEDS ORDERED: OXYBUTYNIN CHLORIDE 5 MG TAB ONE (13:40)
[2018-07-18 14:04] LABS: Urine Specific Gravity 1.025 (1.005-1.030)
[2018-07-18 14:27] LABS: Urine Appearance TURBID
[2018-07-18 14:31] LABS: Urine Bilirubin NEGATIVE (NEG); Urine Blood 3+ (NEG); Urine Glucose NEGATIVE (NEG); Urine Protein 2+ (NEG); Urine Urobilinogen 0.2 mg/dL (0.2-1.0); Urine pH 6.5 (5.0-7.0)
[2018-07-18 14:32] LABS: Urine Color RED
[2018-07-18 14:33] LABS: Urine Bacteria NONE SEEN /HPF (<20)
[2018-07-18 14:34] LABS: Urine Culture Reflex Order NOT NEEDED; Urine RBC TNTC /HPF (NONE SEEN)
--- NOTE | 2018-07-18 21:48 | PN ---
Date of Progress Note: 07/18/2018 Subjective: The patient was seen and examined. Chart reviewed and case discussed with RN. The patient went down for a cystoscopy and stent placement today by Dr. Schmitt. Tolerated the procedure well. The patient is complaining of significant amount of pain. Her IV seems to have been infiltrated. Medications: List reviewed. Physical Examination: Vital Signs: Temperature 98.6, heart rate 91, blood pressure 140/71, respirations 16, O2 93% on room air. General: Awake, alert, oriented x3, in some moderate distress due to pain. Obese female, ill-appearing. CV: S1, S2. No murmurs. Regular rate and rhythm. Peripheral pulses present. Respiratory: Moving air well bilaterally. No wheezing or stridor. Gastrointestinal: Abdomen is soft. Mild tenderness to palpation. No rebound or guarding. Positive bowel sounds. Extremities: No clubbing, cyanosis, or edema. Neurologic: Nonfocal. Laboratory Data: Sodium 140, potassium 4.1, chloride 110, CO2 26, BUN 11, creatinine 0.9, glucose 81, calcium 8.4. Urine is red with 3+ blood, negative nitrite, 2+ leukocyte esterase, too numerous to count RBCs, no WBCs or bacteria. Assessment: A 48-year-old female with: 1. Obstructive uropathy status post cystoscopy with stent placement. Appreciate Dr. Schmitt's input. The patient is still having some hematuria and a significant amount of pain. 2. Hyperthyroidism. Stable, not on any medications at home. 3. Obesity, BMI 31. 4. Gross hematuria. 5. Gastrointestinal and deep vein thrombosis prophylaxis addressed. No chemical anticoagulation due to recent procedure. 6. Nephrolithiasis Plan: Likely discharge in the a.m. /MODL Voice ID: [id number] Report ID: [id number] MTDD
--- NOTE | 2018-07-19 00:51 | OP ---
Surgeon: Lizzie Schmitt MD Career Development Manager: Ramila Rudolph. Anesthesiologist: Dr. King. Preoperative Diagnoses: A 9-mm right mid urolithiasis with intractable pain. The patient admitted a s an inpatient. Postoperative Diagnoses: A 9-mm right mid urolithiasis with intractable pain. The patient admitted as an inpatient. Very hydronephrotic system, proximal to the stone, proximal to L4. Procedure Performed: Right ESWL, 3000 shock waves of stone and cysto, right stent placement. Anesthesia: General, LMA. Ebl: Minimal. Replacement: See record. Path Specimen: None. Complications: None. Drains: Stent as above. Indications: A 48-year-old lady came with intractable pain and having pain for quite a while now and diagnosed with a 9-mm stone in the right mid ureter by L4, unable to pass. Therefore, she was given all the general information, alternatives, and risks for proceeding with the above procedures, which she wishes to do. Description Of Procedure: She was properly identified, taken to the operative suite, and placed in a supine lithotomy position. The area was prepped and draped in the usual sterile fashion. She recei jeannette right shock wave lithotripsy to her right kidney stone, right urolithiasis. Stone was difficult to see after a while, possibly broken. We then did a cysto, retrograde pyelogram showing a filling d efect in the area where the stone was supposed to be. We did another 1000 shocks for a total of 3000 shocks and we did measure the ureter and place a 6-Welsh x [address] String was left a ttached in the vagina for easily facilitate removal. She did have a hydronephrotic drip from the rig ht collecting system, so she may go into some postobstructive diuresis. We need to give her lots of hydration by bedside and see how she does. The patient tolerated the procedure well, went to recover y room in stable condition. PB/MODL Voice ID: [id number] Report ID: [id number]
[2018-07-19] MEDS: HYDROMORPHONE HCL 1 MG/ML INJ IV PRN ×2 (02:30→06:29)
[2018-07-19] MEDS: Levofloxacin500mg IV 500 MG/100 ML BAG IV SCH (02:30)
[2018-07-19 05:59] LABS: Absolute Lymphocytes (CBC) 1.5 K/uL (0.7-4.9); Absolute Monocytes 0.7 K/uL (0.1-1.3); Absolute Neutrophil 3.9 K/uL (1.8-8.0); Basophils % 1.3 % (0-1.3); Eosinophils % 4.4 % (0-4.4); Hematocrit 37.7 % (36.0-45.0); Lymphocytes % 23.3 % (15.3-44.8); MCH 30.8 pg (27.0-35.0); MPV 8.4 fL (7.6-11.3); Monocytes % 10.5 % (3.3-12.3); RBC Red Blood Cell Count 4.18 M/uL (3.86-4.86)
[2018-07-19 06:16] LABS: Potassium 4.3 mmol/L (3.5-5.1)
[2018-07-19 09:34] VITALS: O2SAT 94
[2018-07-19 10:19] VITALS: BP 119/67; TEMP 97.3
--- NOTE | 2018-07-20 06:41 | DS ---
Date of Discharge: 07/19/2018 Consultants: Dr. Schmitt with Urology. Procedures: On 07/18/2018, cystoscopy with stent placement, extracorporeal shock wave lithotripsy. Postoperative Diagnosis: A 9 mm mid urolithiasis with intractable pain. Admitting Diagnoses: 1.Obstructive uropathy. 2.Right-sided nephrolithiasis. 3.Obesity. 4.Hyperthyroidism. Discharge Diagnoses: 1.Obstructive uropathy, status post cystoscopy and stent placement. 2.Right-sided nephrolithiasis, status post extracorporeal shock wave lithotripsy. 3.Hyperthyroidism. 4.Obesity. BMI 31. 5.Gross hematuria. Hospital Course: The patient is a 48-year-old female with past medical history of hyperthyroidism, c omes in with obstructive uropathy. CT scan revealed a right UVJ stone, 9 mm. The patient was seen b y Dr. Schmitt, who performed the procedure as mentioned above. The patient did well postoperatively, d id have some significant pain, which improved. She no longer had any difficulty urinating. The carmen ent was then cleared for discharge and was sent home in a stable condition. Activity: As tolerated. Medications: As per medication reconciliation list. No driving or operating heavy machinery while o n narcotics. Followup: Follow up with primary care physician in 2 to 3 days. Follow up with urologist, Dr. Schmitt , in 2 weeks. Return to ER for worsening condition. Diet: Calorie-restricted diet. Medications: Finish up course of nitrofurantoin. Physical Examination: General: Awake, alert, oriented, in no acute distress. Obese female. CV: S1, S2. No murmurs. Respiratory: Moving air well bilaterally. No wheezing. Gastrointestinal: Abdomen is soft, nontender, nondistended. Positive bowel sounds. Extremities: No clubbing, cyanosis, or edema. Neurologic: Nonfocal. Total time spent discharging the patient was 37 minutes. SA/MODL Voice ID: [id number] Report ID: [id number]
== END 2018-07-19 11:30 | disposition home or self-care (01) | DRG 661 ==
LOC: ER 19:48 → ERHOLD 21:45 → 2ND 22:41
PROVIDERS: ADMIT Hospitalist; ATTEND Family Medicine
PROC: BT1DYZZ Fluoroscopy of Right Kidney, Ureter and Bladder using Other Contrast (ICD-10-PCS; 2018-07-18)
PROC: 0TF68ZZ Fragmentation in Right Ureter, Via Natural or Artificial Opening Endoscopic (ICD-10-PCS; 2018-07-18)
PROC: 0T768DZ Dilation of Right Ureter with Intraluminal Device, Via Natural or Artificial Opening Endoscopic (ICD-10-PCS; principal; 2018-07-18 11:00)
DX: N13.9 Obstructive and reflux uropathy, unspecified (principal); E66.9 Obesity, unspecified; Z68.31 Body mass index [BMI] 31.0-31.9, adult; R31.0 Gross hematuria; Z88.0 Allergy status to penicillin; E05.90 Thyrotoxicosis, unspecified without thyrotoxic crisis or storm; N20.2 Calculus of kidney with calculus of ureter
CPT/HCPCS: 36415; 50590; 74018; 80048; 80053; 80076; 81001; 81003; 81015; 81025; 83690; 83735; 84100; 85025; 96374; 96375; 99285; J0696; J1170; J2001; J2175; J2250; J2704; J3010; J7030; Q9967

== ENCOUNTER 2018-10-08 03:47 | Emergency (ER) | payer SELFPAY ==
[2018-10-08] MEDS ORDERED: MORPHINE 2 MG/ML SYR ONE (04:24)
[2018-10-08] MEDS ORDERED: DIPHENHYDRAMINE 50 MG/ML VIAL ONE (04:25)
[2018-10-08] MEDS ORDERED: METOCLOPRAMIDE 10 MG/2mL INJ ONE (04:25)
[2018-10-08] MEDS ORDERED: NA CHLORIDE 0.9% 1,000 ML ONE (04:25)
[2018-10-08] MEDS ORDERED: KETOROLAC 30 MG/ML INJ ONE (04:25)
[2018-10-08 04:57] LABS: ALT/SGPT 12 U/L (12-78); AST/SGOT 5 U/L (15-37); Albumin 3.9 g/dL (3.4-5.0); Alkaline Phosphatase 91 U/L (45-117); BUN Blood Urea Nitrogen 18 mg/dL (7-18); Bicarbonate 27 mmol/L (21-32); Bilirubin Total 0.4 mg/dL (0.2-1.0); Glucose Level 113 mg/dL (74-106); Potassium 3.8 mmol/L (3.5-5.1); Protein, Total 7.6 g/dL (6.4-8.2); Sodium Level 142 mmol/L (136-145)
[2018-10-08 05:03] LABS: Absolute Lymphocytes (CBC) 1.6 K/uL (0.7-4.9); Absolute Monocytes 0.4 K/uL (0.1-1.3); Absolute Neutrophil 4.3 K/uL (1.8-8.0); Basophils % 1.1 % (0-1.3); Eosinophils % 2.7 % (0-4.4); Hematocrit 40.7 % (36.0-45.0); Lymphocytes % 24.6 % (15.3-44.8); MPV 8.6 fL (7.6-11.3); Monocytes % 6.7 % (3.3-12.3); RBC Red Blood Cell Count 4.66 M/uL (3.86-4.86)
--- NOTE | 2018-10-08 06:23 | EDPHYS ---
Physician Documentation [facility] Name: Joanna Lim Age: 48 yrs Sex: Female : 1970 Arrival Date: 10/08/2018 Time: 03:49 Bed 7 Private MD: ED Physician Steven Meehan HPI: 10/08 04:05 This 48 yrs old Black Female presents to ER via Ambulatory with complaints of Headache. iva 04:05 The patient complains of pain to the right alevism, left alevism, left temporal area and iva right temporal area. The patient describes the headache as aching. Onset: The symptoms/episode began/occurred 14 day(s) ago. Associated signs and symptoms: The patient has no apparent associated signs or symptoms. Severity of symptoms: At its worst the pain was mild, moderate. Headache History: Denies prior headaches. The patient has not experienced similar symptoms in the past. 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 - Social history:: Smoking status: Patient/guardian denies using tobacco. - Ebola Screening: : Patient negative for fever greater than or equal to 101.5 degrees Fahrenheit, and additional compatible Ebola Virus Disease symptoms. - Family history:: not pertinent. ROS: 04:05 Constitutional: Negative for fever, chills, and weight loss, Eyes: Negative for injury, iva pain, redness, and discharge, ENT: Negative for injury, pain, and discharge, Neck: Negative for injury, pain, and swelling, Cardiovascular: Negative for chest pain, palpitations, and edema, Respiratory: Negative for shortness of breath, cough, wheezing, and pleuritic chest pain, Abdomen/GI: Negative for abdominal pain, nausea, vomiting, diarrhea, and constipation, Back: Negative for injury and pain, : Negative for injury, bleeding, discharge, and swelling, MS/Extremity: Negative for injury and deformity, Skin: Negative for injury, rash, and discoloration, Psych: Negative for depression, anxiety, suicide ideation, homicidal ideation, and hallucinations, Allergy/Immunology: Negative for hives, rash, and allergies, Endocrine: Negative for neck swelling, polydipsia, polyuria, polyphagia, and marked weight changes, Hematologic/Lymphatic: Negative for swollen nodes, abnormal bleeding, and unusual bruising. 04:05 Neuro: Positive for headache. Exam: 04:05 Constitutional: This is a well developed, well nourished patient who is awake, alert, iva and in no acute distress. Head/Face: Normocephalic, atraumatic. Eyes: Pupils equal round and reactive to light, extra-ocular motions intact. Lids and lashes normal. Conjunctiva and sclera are non-icteric and not injected. Cornea within normal limits. Periorbital areas with no swelling, redness, or edema. ENT: Nares patent. No nasal discharge, no septal abnormalities noted. Tympanic membranes are normal and external auditory canals are clear. Oropharynx with no redness, swelling, or masses, exudates, or evidence of obstruction, uvula midline. Mucous membranes moist. Neck: Trachea midline, no thyromegaly or masses palpated, and no cervical lymphadenopathy. Supple, full range of motion without nuchal rigidity, or vertebral point tenderness. No Meningismus. Chest/axilla: Normal chest wall appearance and motion. Nontender with no deformity. No lesions are appreciated. Cardiovascular: Regular rate and rhythm with a normal S1 and S2. No gallops, murmurs, or rubs. Normal PMI, no JVD. No pulse deficits. Respiratory: Lungs have equal breath sounds bilaterally, clear to auscultation and percussion. No rales, rhonchi or wheezes noted. No increased work of breathing, no retractions or nasal flaring. Abdomen/GI: Soft, non-tender, with normal bowel sounds. No distension or tympany. No guarding or rebound. No evidence of tenderness throughout. Back: No spinal tenderness. No costovertebral tenderness. Full range of motion. Female : Normal external genitalia. Skin: Warm, dry with normal turgor. Normal color with no rashes, no lesions, and no evidence of cellulitis. MS/ Extremity: Pulses equal, no cyanosis. Neurovascular intact. Full, normal range of motion. Neuro: Awake and alert, GCS 15, oriented to person, place, time, and situation. Cranial nerves II-XII grossly intact. Motor strength 5/5 in all extremities. Sensory grossly intact. Cerebellar exam normal. Normal gait. Psych: Awake, alert, with orientation to person, place and time. Behavior, mood, and affect are within normal limits. 04:12 Neck: ROM/movement: is normal, no acute changes, Meningeal signs: are not present, iva Kernig's sign is negative, Brudzinski's sign is negative. Vital Signs: 03:59 BP 147 / 95; Pulse 78; Resp 16 S; Temp 98.4(O); Pulse Ox 100% on R/A; Weight 95.25 kg jd3 (R); Height 5 ft. 8 in. (172.72 cm) (R); Pain 8/10; 05:06 BP 134 / 93; Pulse 84; Resp 17 S; Pulse Ox 95% on R/A; jd3 06:47 BP 142 / 90; Pulse 71; Resp 16 S; Pulse Ox 98% on R/A; jd3 03:59 Body Mass Index 31.93 (95.25 kg, 172.72 cm) jd3 MDM: 04:03 Patient medically screened. [facility] 04:07 Data reviewed: vital signs, nurses notes, lab test result(s), radiologic studies, CT iva scan, plain films. 10/08 04:27 Order name: Urine Culture EDDE 10/08 04:40 Order name: Comprehensive Metabolic Panel EDDE 10/08 04:40 Order name: CBC with Automated Diff; Complete Time: 06:10 [facility] 10/08 04:43 Order name: Urine Dipstick--Ancillary (enter results) ag4 10/08 06:29 Order name: Bilirubin Direct EDDE 10/08 04:38 Order name: Head angio EDDE 10/08 06:29 Order name: Troponin (Emerg Dept Use Only) EDDE 10/08 06:29 Order name: NT PRO-BNP EDDE 10/08 06:29 Order name: Magnesium EDDE 10/08 06:29 Order name: Protime (+INR) EDDE 10/08 06:37 Order name: Chest Single View EDDE 10/08 04:03 Order name: Urine Dipstick-Ancillary (obtain specimen); Complete Time: 04:33 [facility] 10/08 04:03 Order name: Oxygen; Complete Time: 04:51 [facility] 10/08 04:27 Order name: IV; Complete Time: 04:27 jd3 10/08 06:16 Order name: EKG; Complete Time: 07:14 iva 10/08 06:16 Order name: Cardiac monitoring; Complete Time: 06:20 iva 10/08 06:16 Order name: EKG - Nurse/Tech; Complete Time: 06:47 iva 10/08 06:16 Order name: Labs collected and sent; Complete Time: 06:47 iva 10/08 06:16 Order name: O2 Per Protocol; Complete Time: 06:20 iva 10/08 06:16 Order name: O2 Sat Monitoring; Complete Time: 06:20 [facility] Administered Medications: 04:31 Drug: NS 0.9% 1000 ml Route: IV; Rate: 1 bolus; Site: right antecubital; tl1 07:44 Follow up: IV Status: Completed infusion jl7 04:31 Drug: TORadol 30 mg Route: IVP; Infused Over: 2 mins; Site: right antecubital; tl1 06:50 Follow up: Response: No adverse reaction jd3 04:32 Drug: morphine 2 mg Route: IVP; Infused Over: 2 mins; Site: right antecubital; tl1 06:51 Follow up: Response: No adverse reaction jd3 04:32 Drug: Benadryl 25 mg Route: IVP; Infused Over: 3 mins; Site: right antecubital; tl1 06:51 Follow up: Response: No adverse reaction jd3 04:32 Drug: Reglan 10 mg Route: IVP; Infused Over: 2 mins; Site: right antecubital; tl1 06:51 Follow up: Response: No adverse reaction jd3 07:08 Drug: Keppra 1000 mg Route: IV; Rate: per protocol; Site: right antecubital; jd3 07:23 Follow up: Response: No adverse reaction; IV Status: Completed infusion jl7 Disposition: 10/08/18 06:23 Transfer ordered to [facility]. Diagnosis is Nontraumatic subdural hemorrhage, unspecified - SUBACUTE, with 1 cm midline right to left midline shift. - Reason for transfer: Higher level of care. - Accepting physician is to [facility] NEURO ICU. - Condition is Fair. - Problem is new. - Symptoms have improved. Signatures: Dispatcher [employer] EDSteven Arambula MD MD cha Lasagna, Tonya, RN RN tl1 Jewell Jimenes RN RN jl7 Toni Mcnally RN RN jd3 Corrections: (The following items were deleted from the chart) 07:20 07:11 CBC+H.LAB.BRZ ordered. EDMS EDMS 07:20 07:14 BASIC METABOLIC PANEL+C.LAB.BRZ ordered. EDMS EDMS 07:20 07:14 HEPATIC FUNCTION+C.LAB.BRZ ordered. EDMS EDMS 07:20 07:14 MAGNESIUM+C.LAB.BRZ ordered. EDMS EDMS 07:20 07:14 PROBNP+C.LAB.BRZ ordered. EDMS EDMS 07:20 07:14 PROTIME (+INR)+COAG.LAB.BRZ ordered. EDMS EDMS 07:20 07:14 TROPONIN (EMERG DEPT USE ONLY)+C.LAB.BRZ ordered. EDMS EDMS 07:21 07:11 COMPREHENSIVE METABOLIC PANEL+C.LAB.BRZ ordered. EDMS EDMS 07:21 07:11 Urine Culture+BA.LAB.BRZ ordered. EDMS EDMS 07:29 07:11 Head Brain Wo Cont+CT.RAD.BRZ ordered. EDMS EDMS 07:30 07:14 Chest Single View+RAD.RAD.BRZ ordered. EDDE EDMS 07:44 06:23 10/08/2018 06:23 Transfer ordered to [facility]. Diagnosis is jl7 Nontraumatic subdural hemorrhage, unspecified - SUBACUTE, with 1 cm midline right to left midline shift. Reason for transfer: Higher level of care. Accepting physician is to [facility] NEURO ICU. Condition is Fair. Problem is new. Symptoms have improved. iva
--- NOTE | 2018-10-08 06:23 | ER ---
Nurse's Notes [facility] Name: Joanna Lim Age: 48 yrs Sex: Female : 1970 Arrival Date: 10/08/2018 Time: 03:49 Bed 7 Private MD: Diagnosis: Nontraumatic subdural hemorrhage, unspecified-SUBACUTE, with 1 cm midline right to left midline shift Presentation: 10/08 03:57 Presenting complaint: Patient states: "I have had a head ache for for about 1 week and jd3 it just seems like it keeps getting worse.". Transition of care: patient was not received from another setting of care. Onset of symptoms was October 04, 2018. Risk Assessment: Do you want to hurt yourself or someone else? Patient reports no desire to harm self or others. Initial Sepsis Screen: Does the patient meet any 2 criteria? No. Patient's initial sepsis screen is negative. Does the patient have a suspected source of infection? No. Patient's initial sepsis screen is negative. Care prior to arrival: None. 03:57 Method Of Arrival: Ambulatory jd3 03:57 Acuity: JAYSHREE 3 jd3 Triage Assessment: 04:03 Headache History: Denies prior headaches. jd3 04:04 Pain: Pain currently is 8 out of 10 on a pain scale. Pain began 2-3 days ago. Also jd3 complains of sleeplessness. 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 - Social history:: Smoking status: Patient/guardian denies using tobacco. - Ebola Screening: : Patient negative for fever greater than or equal to 101.5 degrees Fahrenheit, and additional compatible Ebola Virus Disease symptoms. - Family history:: not pertinent. Screenin:03 Abuse screen: Denies threats or abuse. Nutritional screening: No deficits noted. jd3 Tuberculosis screening: No symptoms or risk factors identified. Fall Risk Ambulatory Aid- None/Bed Rest/Nurse Assist (0 pts). Gait- Normal/Bed Rest/Wheelchair (0 pts) Mental Status- Oriented to own ability (0 pts). Total Vicente Fall Scale indicates No Risk (0-24 pts). Assessment: 04:01 General: Appears in no apparent distress. uncomfortable, Behavior is calm, cooperative, jd3 appropriate for age. Pain: Complains of pain in head Quality of pain is described as aching, sharp, throbbing. Neuro: Level of Consciousness is awake, alert, obeys commands, Oriented to person, place, time, situation, Appropriate for age. Cardiovascular: Denies chest pain, Capillary refill < 3 seconds Patient's skin is warm and dry. Respiratory: Airway is patent Respiratory effort is even, unlabored, Respiratory pattern is regular, symmetrical, Denies shortness of breath. GI: No signs and/or symptoms were reported involving the gastrointestinal system. : No signs and/or symptoms were reported regarding the genitourinary system. EENT: No signs and/or symptoms were reported regarding the EENT system. Derm: Skin is intact, Skin is dry, Skin is normal, Skin temperature is warm. Musculoskeletal: Circulation, motion, and sensation intact. Range of motion: intact in all extremities. 05:07 Reassessment: Patient appears in no apparent distress at this time. Patient and/or [facility] family updated on plan of care and expected duration. Pain level reassessed. Patient is alert, oriented x 3, equal unlabored respirations, skin warm/dry/pink. Patient states feeling better. 06:00 Reassessment: Patient appears in no apparent distress at this time. No changes from jd3 previously documented assessment. Patient and/or family updated on plan of care and expected duration. Pain level reassessed. Patient is alert, oriented x 3, equal unlabored respirations, skin warm/dry/pink. 06:47 Reassessment: Patient appears in no apparent distress at this time. No changes from jd3 previously documented assessment. 07:17 Reassessment: report given Tiana ROBINS for transfer. [facility] Vital Signs: 03:59 BP 147 / 95; Pulse 78; Resp 16 S; Temp 98.4(O); Pulse Ox 100% on R/A; Weight 95.25 kg jd3 (R); Height 5 ft. 8 in. (172.72 cm) (R); Pain 8/10; 05:06 BP 134 / 93; Pulse 84; Resp 17 S; Pulse Ox 95% on R/A; jd3 06:47 BP 142 / 90; Pulse 71; Resp 16 S; Pulse Ox 98% on R/A; jd3 03:59 Body Mass Index 31.93 (95.25 kg, 172.72 cm) jd3 ED Course: 03:49 Patient arrived in ED. ag3 03:55 Steven Meehan MD is Attending Physician. [facility] 03:57 Toni Mcnally, JULIENNE is Primary Nurse. jd3 03:58 Triage completed. jd3 04:00 Arm band placed on. jd3 04:04 Patient has correct armband on for positive identification. Bed in low position. Call j light in reach. Side rails up X 1. 04:20 Inserted saline lock: 20 gauge in right antecubital area, using aseptic technique. jd3 Blood collected. 04:56 Radiology exam delayed due to lab results not completed at this time. (BUN/Creatinine). kw1 05:25 Patient moved to MD via wheelchair. kw1 05:43 Head angio In Process Unspecified. EDMS 06:[address] Meehan with Josephine Bowman at the [facility] transfer eb center. 06:[address] Cortez the Neurologist crisis intervention specialist from [facility] with Dr. Meehan for eb patient transfer consulation. 06:32 Per Josephine Bowman at the [facility] transfer center pt has be declined due to not eb having any ICU beds. 06:[address] Meehan with Michelle Huynh at the [facility] eb transfer center. 06:38 connected the Neurologist crisis intervention specialist Dr. Phan with Dr. Meehan for patient transfer eb consultation. 06:42 administrative approval given by Michelle Huynh/ patient is going to the ER/ Dr. Phan eb has accepted the patient in transfer/report to be called to [phone]. 06:45 Chest Single View In Process Unspecified. EDMS 07:39 No provider procedures requiring assistance completed. Patient transferred, IV remains jl7 in place. intact, No redness/swelling at site. Administered Medications: 04:31 Drug: NS 0.9% 1000 ml Route: IV; Rate: 1 bolus; Site: right antecubital; tl1 07:44 Follow up: IV Status: Completed infusion jl7 04:31 Drug: TORadol 30 mg Route: IVP; Infused Over: 2 mins; Site: right antecubital; tl1 06:50 Follow up: Response: No adverse reaction jd3 04:32 Drug: morphine 2 mg Route: IVP; Infused Over: 2 mins; Site: right antecubital; tl1 06:51 Follow up: Response: No adverse reaction jd3 04:32 Drug: Benadryl 25 mg Route: IVP; Infused Over: 3 mins; Site: right antecubital; tl1 06:51 Follow up: Response: No adverse reaction jd3 04:32 Drug: Reglan 10 mg Route: IVP; Infused Over: 2 mins; Site: right antecubital; tl1 06:51 Follow up: Response: No adverse reaction jd3 07:08 Drug: Keppra 1000 mg Route: IV; Rate: per protocol; Site: right antecubital; jd3 07:23 Follow up: Response: No adverse reaction; IV Status: Completed infusion jl7 Outcome: 06:23 ER care complete, transfer ordered by MD. enrique 07:39 Transferred by ground EMS to [facility], Transfer form completed. jl7 07:39 Condition: stable 07:39 Discharge instructions given to patient, Instructed on the need for transfer, Demonstrated understanding of instructions. 07:44 Patient left the ED. jl7 Signatures: Dispatcher [employer] EDSteven Arambula MD MD cha Lasagna, Tonya RN RN tl1 Jewell Jimenes RN RN jl7 Toni Mcnally RN RN jd3 Dasha Knott kw1 April Mock Alice ag3 Corrections: (The following items were deleted from the chart) 05:12 05:07 Reassessment: Patient appears in no apparent distress at this time. No changes jd3 from previously documented assessment. Patient and/or family updated on plan of care and expected duration. Pain level reassessed. Patient is alert, oriented x 3, equal unlabored respirations, skin warm/dry/pink. jd3
[2018-10-08 06:39] LABS: Protime INR 1.09
[2018-10-08 06:51] LABS: Bilirubin Direct 0.1 mg/dL (0-0.2); NT PRO-BNP 30 pg/mL (<125); Troponin (Emerg Dept Use Only) < 0.02 ng/mL (0.0-0.045)
[2018-10-08] MEDS ORDERED: LEVETIRACETAM 500 MG/5 ML VIAL IV ONE (07:06)
[2018-10-08] MEDS ORDERED: NA CHLORIDE 0.9% 100 ML IV ONE (07:06)
[2018-10-08 08:00] VITALS: TEMP 98.4
[2018-10-08 08:03] VITALS: BP 142/90; O2SAT 98
[2018-10-08 08:50] LABS: Urine Blood 2+ (NEG); Urine Glucose NEGATIVE (NEG); Urine Protein TRACE (NEG); Urine pH 5.5 (5.0-7.0)
--- NOTE | 2018-10-08 09:37 | RAD REPORT ---
EXAM DESCRIPTION: RAD - Chest Single View - 10/08/2018 6:45 am CLINICAL HISTORY: Cough COMPARISON: January 2016 TECHNIQUE: AP portable chest image was obtained 0641 hour . FINDINGS: Lung volumes are low. No acute lung parenchymal process. Interstitial pattern is similar t o comparison. Heart and vasculature are normal. No measurable pleural effusion and no pneumothorax. N o acute bony abnormality seen. No acute aortic findings suspected. IMPRESSION: No acute cardiopulmonary process. No significant interval change.
--- NOTE | 2018-10-09 09:13 | EKG ---
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
--- NOTE | 2018-10-09 12:25 | RAD REPORT ---
EXAM DESCRIPTION: CT - Head angio - 10/08/2018 6:28 am CLINICAL HISTORY: The patient is 48 years old and is Female; DIZZINESS; HEADACHE TECHNIQUE: Axial computed tomographic angiography images of the head without and with intravenous co ntrast using CT angiography protocol. Sagittal and coronal reformatted images were created and revi ewed. Sagittal and coronal reformatted images were created and reviewed. This CT exam was perform ed using one or more of the following dose reduction techniques: automated exposure control, adjust ment of the mA and/or kV according to patient size, and/or use of iterative reconstruction technique. MIP reconstructed images were created and reviewed. Reconstruction technique. MIP reconstructed images were created and reviewed. COMPARISON: No relevant prior studies available. FINDINGS: VASCULATURE: Right internal carotid artery: No acute findings. Intracranial segment is patent with no signi ficant stenosis. No aneurysm. Right anterior cerebral artery: Unremarkable. No occlusion or significant stenosis. No aneur ysm. Right middle cerebral artery: Unremarkable. No occlusion or significant stenosis. No aneurys m. Right posterior cerebral artery: Unremarkable. No occlusion or significant stenosis. No aneu rysm. Right vertebral artery: Unremarkable as visualized. Left internal carotid artery: No acute findings. Intracranial segment is patent with no signif icant stenosis. No aneurysm. Left anterior cerebral artery: Unremarkable. No occlusion or significant stenosis. No aneury sm. Left middle cerebral artery: Unremarkable. No occlusion or significant stenosis. No aneurysm . Left posterior cerebral artery: Unremarkable. No occlusion or significant stenosis. No aneur ysm. Left vertebral artery: Unremarkable as visualized. Basilar artery: Unremarkable. No significant stenosis. No occlusion. No aneurysm. HEAD: Brain: A 0.9 cm right subdural low attenuating collection is present. There is associated mass e ffect in the 1 cm leftward midline shift. The gutierrez-white differentiation is otherwise maintained. No hemorrhage. Ventricles: Unremarkable. No ventriculomegaly. Bones/joints: No acute fracture. Soft tissues: Unremarkable. Sinuses: Unremarkable as visualized. No acute sinusitis. Mastoid air cells: Unremarkable as visualized. No mastoid effusion. IMPRESSION: 1. Findings suggestive of a subacute/chronic right subdural hemorrhage with associated 1 cm leftward midline shift. 2. Unremarkable CTA. Electronically signed by: Riri Edmond MD 10/08/2018 5:56 AM [facility] ADDENDUM #1 THIS REPORT CONTAINS FINDINGS THAT MAY BE CRITICAL TO PATIENT CARE: The findings were verbally discussed via telephone conference with Dr. Steven Meehan by Dr. Hector Edmond on 6:09 AM [facility] .The results were acknowledged and understood. Electronically signed by: Riri Edmond MD 10/08/2018 6:11 AM [facility] End of Addendum EXAM DESCRIPTION: CT Angiography Head Without And With Intravenous Contrast CLINICAL HISTORY: The patient is 48 years old and is Female; DIZZINESS; HEADACHE TECHNIQUE: Axial computed tomographic angiography images of the head without and with intravenous co ntrast using CT angiography protocol. Sagittal and coronal reformatted images were created and revi ewed. Sagittal and coronal reformatted images were created and reviewed. This CT exam was perform ed using one or more of the following dose reduction techniques: automated exposure control, adjust ment of the mA and/or kV according to patient size, and/or use of iterative reconstruction technique. MIP reconstructed images were created and reviewed. COMPARISON: No relevant prior studies available. FINDINGS: VASCULATURE: Right internal carotid artery: No acute findings. Intracranial segment is patent with no signi ficant stenosis. No aneurysm. Right anterior cerebral artery: Unremarkable. No occlusion or significant stenosis. No aneur ysm. Right middle cerebral artery: Unremarkable. No occlusion or significant stenosis. No aneurys m. Right posterior cerebral artery: Unremarkable. No occlusion or significant stenosis. No aneu rysm. Right vertebral artery: Unremarkable as visualized. Left internal carotid artery: No acute findings. Intracranial segment is patent with no signif icant stenosis. No aneurysm. Left anterior cerebral artery: Unremarkable. No occlusion or significant stenosis. No aneury sm. Left middle cerebral artery: Unremarkable. No occlusion or significant stenosis. No aneurysm . Left posterior cerebral artery: Unremarkable. No occlusion or significant stenosis. No aneur ysm. Left vertebral artery: Unremarkable as visualized. Basilar artery: Unremarkable. No significant stenosis. No occlusion. No aneurysm. HEAD: Brain: A 0.9 cm right subdural low attenuating collection is present. There is associated mass e ffect in the 1 cm leftward midline shift. The gutierrez-white differentiation is otherwise maintained. No hemorrhage. Ventricles: Unremarkable. No ventriculomegaly. Bones/joints: No acute fracture. Soft tissues: Unremarkable. Sinuses: Unremarkable as visualized. No acute sinusitis. Mastoid air cells: Unremarkable as visualized. No mastoid effusion. IMPRESSION: 1. Findings suggestive of a subacute/chronic right subdural hemorrhage with associated 1 cm leftward midline shift. 2. Unremarkable CTA. Electronically signed by: Riri Edmond MD 10/08/2018 5:56 AM [facility] Due to temporary technical issues with the PACS/Fluency reporting system, reports are being signed by the in house radiologist as a courtesy to ensure prompt reporting. The interpreting radiologist is f ully responsible for the content of the report.
== END 2018-10-08 07:44 | disposition short-term general hospital (02) ==
LOC: ER 03:47
DX: I62.02 Nontraumatic subacute subdural hemorrhage (principal); Z88.0 Allergy status to penicillin
CPT/HCPCS: 36415; 70496; 71045; 80053; 81003; 82248; 83735; 83880; 84484; 85025; 85610; 87086; 87088; 93005; 96361; 96374; 96375; 99285; J1953; J2270; J2765; J7030; Q9967

== ENCOUNTER 2020-02-24 15:47 | Emergency (ER) | payer OTHER ==
--- OUTSIDE RECORDS SUMMARY | 2020-02-24 15:51 | XMS REPORT | Continuity of Care Document ---
:1970 Author Organization [employer] Care Team Providers Name Role Phone [employer] [facility] [facility] Unavailable Un available Problems Problem Status Onset Classification Date Comments Sourc e Date Reported CHRONIC SDH Active [place] [id number] [facility] NON SUBACUTE Active [facility] TRAUMATIC [address] [place] [address] SUBDURAL Center HEMATOMA Simple obesity Active Problem 04/08/2019 Misc her (disorder) Neuro, OPID [place], OPID [place] NONTRAUMATIC Active [facility] CHRONIC SUBDURAL Med ical HEMORRHAGE Center Medications Medication Details Route Status Patient Ordering Order Source Instructions Provider Date methocarbamol 500 mg = 1 tab, Active [place] 500 mg oral PO, Q8H, X 5 2019 Medical tablet day, # 15 tab, 0 Center Refill(s) Levetiracetam 500 mg = 1 tab, Active [place] 500 MG Oral PO, Q12H, # 6 2019 Medica l Tablet tab, 0 Refill(s) [place] Albuterol 0.833 3 mL, NEB, RQ4H, Active [place] MG/ML / PRN Wheezing, 0 2019 Medical Ipratropium Refill(s) Center Dent 0.167 MG/ML Inhalant Solution Acetaminophen 100.4 F, 0 Active Alli as 325 MG Oral Refill(s) 2019 Medical Tablet Center Bisacodyl Notes: (Same As: Inactive [place] Dulcolax, 2019 Medical Bisco-Lax) Center Tramadol Notes: Not to Inactive [facility] exceed 2019 Medical 400mg/day. (Same Center As: Ultram) heparin Notes: porcine [facility] Medical [place] remove patch 1 patch, Route: No Longer 03/05/ [facility] [place] TOP, Bedtime, Active 2019 Medical Drug form: Center ERFILM, Start date: 10/09/18 21:00:00 RECREATION ATTENDANT SUPERVISOR, Duration: 30 day, Stop date: 11/07/18 21:00:00 CDT Robaxin Notes: (Same No Longer [place] as:Robaxin) Active 2019 Medical Center Lyrica Notes: (Same as: [place] Longer [place] Lyrica) Active 2019 Medical Center Miralax Notes: Dissolve No Longer [place] as in 8 oz of water Active 2019 Medical or juice. (Same Center as: Miralax) Lidocaine 0.05 1 patch, Route: No Longer [place] MG/MG TOP, Daily, Drug Active 2019 Medical Transdermal form: FILM, [place] Patch Start date: 10/09/18 9:00:00 RECREATION ATTENDANT SUPERVISOR, Duration: 30 day, Stop date: 11/07/18 9:00:00 CDT Tramadol Notes: Not to [place]er [place] exceed Active 2019 Medical 400mg/day. (Same Center As: Ultra) Rock Notes: (Same No Longer [facility] as:Kepp) Active 2019 Medical Center Saline Flush Notes: (Same as: No Longer [facility] 0.9% BD Posiflush) Active 2019 [facility] Center Levetiracetam Notes: Inactive [place] MEDICATION WASTE 2019 Medical Product Center Size: 500 mg Product Wasted: ___ mg sennosides, GROUP HOME Notes: (Same as: No Longer 10/09 [place] Senokot) Active 2019 [facility] Center Docusate 100 mg, 1 cap, No Longer [place] as Route: PO, Drug Active 2019 Medical form: CAP, Q12H, Center Dosing Weight 95.455, kg, Start date: 10/08/18 21:00:00 RECREATION ATTENDANT SUPERVISOR, Duration: 30 day, Stop date: 11/07/18 9:00:00 CDT Vancomycin 2001 mg: infuse No Longer [facility] over 2.5 hours Active 2019 Medical For adult Center patients only: Round to nearest 250 mg per Medical Staff approval MEDICATION WASTE Product Size: 1000 mg Product Wasted: ___ mg Artificial Tears 2 drp, Route: No Longer [place] BOTH EYES, BID, Active 2019 Medical Drug form: SOLN, [place] Start date: 10/08/18 17:00:00 RECREATION ATTENDANT SUPERVISOR, Duration: 30 day, Stop date: 11/07/18 9:00:00 CDT Vancomycin 1 gm, Route: IV, Inactive [place] Q8H, Dosing 2019 Medical Weight 95.455, Center kg, Start date: 10/08/18 16:00:00 RECREATION ATTENDANT SUPERVISOR, Duration: 1 day, Stop date: 10/09/18 8:00:00 RECREATION ATTENDANT SUPERVISOR, ABX Indication: Surgical Prophylaxis Glucagon 1 mg, Route: IM, No Longer [place] Drug form: Active 2019 Medical PDR/INJ, PRN, Center Dosing Weight 95.455, kg, PRN Blood Glucose Results, Start date: 10/08/18 14:19:00 RECREATION ATTENDANT SUPERVISOR, Duration: 30 day, Stop date: 11/07/18 15:18:00 CDT Dextrose 50% 25 gm, 50 mL, No Longer [place] Syringe Route: IVP, Drug Active 2019 Medical Form: INJ, Center Dosing Weight 95.455, kg, PRN, PRN Blood Glucose Results, Start date: 10/08/18 14:19:00 RECREATION ATTENDANT SUPERVISOR, Duration: 30 day, Stop date: 11/07/18 15:18:00 CDT Insulin regular 60 units) No Longer [place] WASTE: F/P - Active 2019 Medical Black; E - Center Municipal Trash Bin Stable for 28 days at room temperature Expires in days from Da te Potassium Notes: (Same as: No Longer [place] Chloride KCL) Infuse Active 2019 Medical over 2 hours. Center Calcium Notes: WASTE: No Longer [place] Gluconate F/P - Sink; E - Active 2019 Medica l Municipal Tr[facility] Bin Magnesium Oxide Notes: (Same as: No Longer 10/08 [place] Mag-Ox 400) Active 2019 [facility] Magnesium oxide Center [id number] elemental magnesium Dose=____mg magnesium oxide (___mg elemental magnesium) Calcium Notes: (Same As: [place] Longer [place] Carbonate 500 MG Tums) Calcium Active 2019 edical Chewable Tablet Carbonate 500 mg Center = 200 mg elemental calcium Dose = mg calcium carbonate ( mg elemental calcium) potassium Notes: (Same as: No Longer [place] phosphate K Phosphate.) Active 2019 Medical Do not infuse Center phosphorous concurrently in the same line as TPN or IVF that contains calcium. For double lumen central lines, phosphorous may be infused in a separate lumen from TPN. 1 mMol phoshate has 1.47 mEq potassium Infuse over 4 hours potassium Notes: (Same as: No Longer [place] phosphate-sodium Phos-NaK) Each Active 2019 Medical phosphate 250 1.5 gm pkt has [address] mg-280 mg-160 mg 250mg oral powder for phosphorous. Mix reconstitution w/2.5oz water and stir. Magnesium Notes: WASTE: No Longer [place] Sulfate F/P - Sink; E - Active 2019 [facility] Trash [place] Bin sodium phosphate Notes: Infuse No Longer [place] over 4 hour. Do Active 2019 Medical not infuse Center phosphorous concurrently in the same line as TPN or IVF that contains calcium. For double lumen central lines, phosphorous may be infused in a separate lumen from TPN. Hydralazine Notes: (Same as: No Longer 10/08/ [facility] [place] [facility] Apresoline) Push Active 2019 Medical over 5 minutes Center Labetalol 10 mg, 2 mL, [place] Longer [place] Route: IVP, Drug Active 2019 Medical form: INJ, Q4H, Center Dosing Weight 95.455, kg, PRN Hypertension, Start date: 10/08/18 14:13:00 RECREATION ATTENDANT SUPERVISOR, Duration: 30 day, Stop date: 11/07/18 14:12:00 CDT sugammadex Route: IV, Drug Inactive [place] (ANES) form: SOLN, 2019 Medical ONCE, Stop date: Center 10/08/18 12:30:00 RECREATION ATTENDANT SUPERVISOR Hydralazine 10 mg, Route: Inactive [place] IVP, Q20Min, 2019 Medical Dosing Weight Center 95.455, kg, PRN Elevated BP, Start date: 10/08/18 12:18:00 RECREATION ATTENDANT SUPERVISOR, Duration: 2 doses or times, Stop date: Limited # of times Labetalol 10 mg, 2 mL, Inactive [place] Route: IVP, Drug 2019 Medical form: INJ, Center Q5Min, Dosing Weight 95.455, kg, PRN Elevated BP, Start date: 10/08/18 12:18:00 RECREATION ATTENDANT SUPERVISOR, Duration: 5 doses or times, Stop date: 10/09/18 0:00:00 RECREATION ATTENDANT SUPERVISOR Acetaminophen 1,000 mg, Route: Inactive 10/08[facility] [place] PO, Drug form: 2019 Medical TAB, ONCE, Center Dosing Weight 95.455, kg, PRN Pain Score 1-3, Start date: 10/08/18 12:18:00 RECREATION ATTENDANT SUPERVISOR Promethazine 6.25 mg, Route: Inactive [place] IVPB, ONCE, 2019 Medical Dosing Weight Center 95.455, kg, PRN Nausea & Vomiting, Start date: 10/08/18 12:18:00 RECREATION ATTENDANT SUPERVISOR Ondansetron 4 mg, Route: Inactive 10/08[facility] [place] as IVP, ONCE, 2019 Medical Dosing Weight Center 95.455, kg, PRN Nausea & Vomiting, Start date: 10/08/18 12:18:00 RECREATION ATTENDANT SUPERVISOR Dexamethasone 4 mg, Route: Inactive 10/08[facility] [place] IVP, ONCE, 2019 Medical Dosing Weight Center 95.455, kg, PRN Nausea & Vomiting, Start date: 10/08/18 12:18:00 RECREATION ATTENDANT SUPERVISOR Naloxone 0.4 mg, Route: [place] IVP, Q2MIN, 2019 Medical Dosing Weight Center 95.455, kg, PRN Narcotic Reversal, Start date: 10/08/18 12:18:00 RECREATION ATTENDANT SUPERVISOR, Duration: 8 doses or times, Stop date: Limited # of times Flumazenil 0.2 mg, Route: Inactive 10/08[facility] [place] IVP, PRN, Dosing 2019 Medical Weight 95.455, Center kg, PRN Benzodiazepine Reversal, Initial dose, Start date: 10/08/18 12:18:00 RECREATION ATTENDANT SUPERVISOR, Duration: 30 day, Stop date: 11/07/18 13:17:00 CDT Hydromorphone 0.5 mg, Route: Inactive 10/08[facility] [place] IVP, Q5Min, 2019 Medical Dosing Weight Center 95.455, kg, PRN Pain Score 7-10, Start date: 10/08/18 12:18:00 RECREATION ATTENDANT SUPERVISOR, Duration: 4 doses or times, Stop date: Limited # of times sugammadex Notes: (Same as: No Longer [place] Bridion) Active 2019 [facility] famotidine Route: IV, Drug Inactive [place] (ANES) form: INJ, ONCE, 2018 Medical Stop date: [place] 10/08/18 11:59:00 RECREATION ATTENDANT SUPERVISOR metoclopramide Route: IV, Drug Inactive 10/08/ [place] (ANES) form: INJ, ONCE, 2018 Medical Stop date: [place] 10/08/18 11:59:00 RECREATION ATTENDANT SUPERVISOR ondansetron Route: IV, Drug Inactive 10/08/ [place] (ANES) form: INJ, ONCE, 2018 Medical Stop date: [place] 10/08/18 11:59:00 RECREATION ATTENDANT SUPERVISOR phenylephrine Route: IV, Drug Inactive 10/08/ [facility] [place] (ANES) form: INJ, ONCE, 2018 Medical Stop date: [place] 10/08/18 11:57:00 RECREATION ATTENDANT SUPERVISOR lidocaine (ANES) Route: IV, Drug Inactive 10/08/ [place] form: INJ, ONCE, 2018 Medical Stop date: [place] 10/08/18 11:51:00 RECREATION ATTENDANT SUPERVISOR dexamethasone Route: IV, Drug Inactive 10/08/ [facility] [place] (ANES) form: INJ, ONCE, 2018 Medical Stop date: [place] 10/08/18 11:51:00 RECREATION ATTENDANT SUPERVISOR propofol (ANES) Route: IV, Drug Inactive 10/08/ [place] form: INJ, ONCE, 2018 Medical Stop date: [place] 10/08/18 11:51:00 RECREATION ATTENDANT SUPERVISOR rocuronium Route: IV, Drug Inactive 10/08/ [place] (ANES) form: INJ, ONCE, 2018 Medical Stop date: [place] 10/08/18 11:51:00 RECREATION ATTENDANT SUPERVISOR levETIRAcetam Route: IV, Drug Inactive 10/08/ M [facility] [place] (ANES) form: INJ, ONCE, 2018 Medical Stop date: [place] 10/08/18 11:51:00 RECREATION ATTENDANT SUPERVISOR fentaNYL (ANES) Route: IV, Drug Inactive 10/08/ [place] form: INJ, ONCE, 2018 Medical Stop date: [place] 10/08/18 11:51:00 RECREATION ATTENDANT SUPERVISOR propofol (ANES) Route: IV, Drug Inactive 10/08/ [place] 10 mg form: INJ, Start 2018 Medical date: 10/08/18 [place] 10:30:00 RECREATION ATTENDANT SUPERVISOR, Stop date: 10/08/18 11:30:00 RECREATION ATTENDANT SUPERVISOR remifentanil Route: IV, Drug Inactive [place] (ANES) 1 mg form: INJ, Start 2019 Med ical date: 10/08/18 Center 10:30:00 RECREATION ATTENDANT SUPERVISOR, Stop date: 10/08/18 11:30:00 RECREATION ATTENDANT SUPERVISOR Sodium Chloride Route: IV, Drug Inactive [place] 0.9% IV (ANES) form: INJ, Start 2019 Medical 235 mL + date: 10/08/18 Center vancomycin 10:25:00 RECREATION ATTENDANT SUPERVISOR, (ANES) 1500 mg Stop date: 10/08/18 11:25:00 RECREATION ATTENDANT SUPERVISOR Isolyte S PH 7.4 Route: IV, Total Inactive 10/08 [place] (ANES) 1000 mL Volume: 1,000, 2019 Me dical Start date: Center 10/08/18 10:09:00 RECREATION ATTENDANT SUPERVISOR, Stop date: 10/08/18 11:09:00 RECREATION ATTENDANT SUPERVISOR Saline Flush Notes: (Same as: No Longer [place] 0.9% BD Posiflush) Active 2019 Medical Center Albuterol 0.833 3 ml, Route: No Longer [place] MG/ML / NEB, Drug Form: Active 2019 Medical Ipratropium SOLN, Dosing Center Dent 0.167 Weight 95.455, MG/ML Inhalant kg, RQ4H, PRN Solution Wheezing, Start date: 10/08/18 9:57:00 RECREATION ATTENDANT SUPERVISOR, Duration: 30 day, Stop date: 11/07/18 9:56:00 CDT Labetalol 10 mg, 2 mL, Inactive [place] Route: IVP, Drug 2019 Medical form: INJ, Center Q15Min, Dosing Weight 95.455, kg, PRN Hypertension, Start date: 10/08/18 9:57:00 RECREATION ATTENDANT SUPERVISOR, Duration: 30 day, Stop date: 11/07/18 10:56:00 CDT Hydralazine 20 mg, 1 mL, Inactive [place] as Route: IVP, Drug 2019 Medical form: INJ, Q4H, Center Dosing Weight 95.455, kg, PRN Hypertension, Start date: 10/08/18 9:57:00 RECREATION ATTENDANT SUPERVISOR, Duration: 30 day, Stop date: 11/07/18 9:56:00 CDT Sodium Chloride 1,000 mL, Rate: Inactive [place] 0.9% IV 1,000 mL 50 ml/hr, Infuse 2019 Medical over: 20 hr, Center Route: IV, Dosing Weight 95.455 kg, Total Volume: 1,000, Start date: 10/08/18 9:57:00 RECREATION ATTENDANT SUPERVISOR, Duration: 30 day, Stop date: 11/07/18 9:56:00 CDT, 2.16, m2 Levetiracetam Notes: Same as No Longer 10/08/ [facility] [place] [facility] Keppra Mix with Active 2019 Medical 100 mL NS, LR or Center D5W MEDICATION WASTE Product Size: 500 mg Product Wasted: ___ mg Acetaminophen 100.4 F, Start No Longer [facility] date: 10/08/18 Active 2019 Medical 9:57:00 RECREATION ATTENDANT SUPERVISOR, Center Duration: 30 day, Stop date: 11/07/18 9:56:00 CDT Ondansetron Notes: No Longer [place] MEDICATION WASTE Active 2019 Medical Product Center Size: 4 mg Product Wasted: ___ mg Bisacodyl 10 mg, 1 supp, [place] Longer [place] Route: ID, Drug Active 2019 Medical form: SUPP, Center Daily, Dosing Weight 95.455, kg, PRN Constipation, Start date: 10/08/18 9:57:00 RECREATION ATTENDANT SUPERVISOR, Duration: 30 day, Stop date: 11/07/18 9:56:00 CDT Zofran 4 mg, Route: Inactive [facility] IVP, Drug form: 2019 Medical INJ, ONCE, Center Dosing Weight 95.455, kg, Priority: STAT, Start date: 10/08/18 9:09:00 RECREATION ATTENDANT SUPERVISOR, Stop date: 10/08/18 9:09:00 RECREATION ATTENDANT SUPERVISOR Morphine 4 mg, Route: Inactive [facility] IVP, ONCE, 2019 Medical Dosing Weight Center 95.455, kg, Priority: STAT, Start date: 10/08/18 9:09:00 RECREATION ATTENDANT SUPERVISOR, Stop date: 10/08/18 9:09:00 RECREATION ATTENDANT SUPERVISOR Sodium Chloride 1,000 mL, Infuse Inactive [facility] 0.9% (Bolus) IV Over: 1 hr, 2019 [facility] Route: IV, ONCE, Center Priority: STAT, Dosing Weight 95.455 kg, Start date: 10/08/18 9:09:00 RECREATION ATTENDANT SUPERVISOR, Stop date: 10/08/18 9:09:00 RECREATION ATTENDANT SUPERVISOR Allergies, Adverse Reactions, Alerts Substance Category Reaction Severity Reaction Status Date Comments S ource type Reported penicillin Assertion Drug Active Mis reta allergy Neuro Immunizations Immunization Date Given Site Status Last Updated Comments Mohini rce influenza virus 10/11/2018 Not Given Mis reta vaccine, Neuro,[facility] inactivated [facility], HEATH Gonzalez, HEATH Ngo and Results Order Name Results Value Reference Date Interpretation Comments Mohini rce Range CHEM PANEL eGFR 73 10/11 Result Comment: The Medical eGFR is Center calculated using the CKD-EPI formula. In most young, healthy individuals the eGFR will be >90 mL/min/1.73m2 . The eGFR declines with age. An eGFR of 60-89 may be normal in some populations, particularly the elderly, for whom the CKD-EPI formula has not been extensively validated. Use of the eGFR is not recommended in the following populations:< br/>
Carmen viduals with unstable creatinine concentration s, including patients and those with serious co-morbid conditions.<b r/>
Patie nts with extremes in muscle mass or diet.

The data above are obtained from the National Kidney Disease Education Program (NKDEP) which additionally recommends that when the eGFR is used in patients with extremes of body mass index for purposes of drug dosing, the eGFR should be multiplied by the estimated BMI. CHEM PANEL Glucose Lvl 74 70 - 99 10/11 [facility] CHEM PANEL Creatinine 0.93 0.50 - 10/11 [facility] Lvl 1.40 [facility] CHEM PANEL Sodium Lvl 140 135 - 145 10/11 [facility] CHEM PANEL BUN 18 7 - 22 10/11 [facility] CHEM PANEL Calcium Lvl 8.9 8.5 - 10.5 10/11 [place]i as [facility] CHEM PANEL Potassium Lvl 3.9 3.5 - 5.1 10/11 [place] [facility] CHEM PANEL Chloride Lvl 106 95 - 109 10/11 [place] [facility] CHEM PANEL CO2 26 24 - 32 10/11 [facility]2018 [facility] CHEM PANEL AGAP 11.9 10.0 - 10/11 [place] 20.0 [facility] HEMATOLOGY WBC 9.0 3.7 - 10.4 03/ [facility] HEMATOLOGY Platelet 319 133 - 450 03/ [facility] HEMATOLOGY MPV 8.7 7.4 - 10.4 10/11 2018 [facility] HEMATOLOGY RDW 13.6 11.5 - 10/11 [facility] 14.5 /2018 [facility] HEMATOLOGY MCHC 33.2 32.0 - 03/ [facility] 36.0 [facility] HEMATOLOGY MCH 29.6 27.0 - 10/11 [facility] 31.0 [facility] HEMATOLOGY Hct 38.3 36.0 - 10/11 [facility] 48.0 2019 [facility] HEMATOLOGY RBC 4.30 4.20 - 10/11 [facility] 5.40 [facility] HEMATOLOGY MCV 89.1 80.0 - 10/11 [facility] 98.0 [facility] HEMATOLOGY Hgb 12.7 12.0 - 10/11 [facility] 16.0 [facility] HEMATOLOGY Eosinophils 2.9 0.0 - 4.0 03 [facility] HEMATOLOGY Lymphocytes 28.7 20.0 - 03 [facility] 40.0 2019 [facility] HEMATOLOGY Monocytes 9.5 2.0 - 12.0 03 [facility]2018 [facility] HEMATOLOGY Segs 58.7 45.0 - 03 [facility] 75.0 2019 [facility] HEMATOLOGY Lymphocytes # 2.6 1.0 - 5.5 03 [facility] HEMATOLOGY Eosinophils # 0.3 0.0 - 0.[address] HEMATOLOGY Basophils 0.2 0.0 - 1.0 03 [facility]2018 [facility] HEMATOLOGY Neutrophils # 5.3 1.5 - 8.1 10/11 [facility] HEMATOLOGY Monocytes # 0.9 0.0 - 0.8 03 [facility] CHEM PANEL Magnesium Lvl 2.0 1.8 - 2.4 10/[address] CHEM PANEL eGFR 68 03/ [facility] Comment: The Medical eGFR is Center calculated using the CKD-EPI formula. In most young, healthy individuals the eGFR will be >90 mL/min/1.73m2 . The eGFR declines with age. An eGFR of 60-89 may be normal in some populations, particularly the elderly, for whom the CKD-EPI formula has not been extensively validated. Use of the eGFR is not recommended in the following populations:< br/>
Carmen viduals with unstable creatinine concentration s, including patients and those with serious co-morbid conditions.<b r/>
Patie nts with extremes in muscle mass or diet.

The data above are obtained from the National Kidney Disease Education Program (NKDEP) which additionally recommends that when the eGFR is used in patients with extremes of body mass index for purposes of drug dosing, the eGFR should be multiplied by the estimated BMI. CHEM PANEL Potassium Lvl 3.9 3.5 - 5.[address] CHEM PANEL Chloride Lvl 112 95 - [address] CHEM PANEL Sodium Lvl 144 135 - [address] CHEM PANEL Creatinine 1.00 0.50 - 03 [facility] Lvl 1.40 [facility] CHEM PANEL Glucose Lvl 90 70 - [address] CHEM PANEL BUN 21 7 - [address] CHEM PANEL CO2 28 24 - [address] CHEM PANEL Calcium Lvl 8.6 8.5 - 10.[address] CHEM PANEL AGAP 7.9 10.0 - 0305 [facility] 20.0 [facility] CHEM PANEL Phosphorus 3.9 2.5 - 4.[address] HEMATOLOGY Basophils # 0.1 0.0 - 0.2 03/ [address] HEMATOLOGY Eosinophils # 0.2 0.0 - 0.5 03/ [address] HEMATOLOGY Eosinophils 2.0 0.0 - 4.0 03/ [address] HEMATOLOGY Lymphocytes # 2.1 1.0 - 5.[address] HEMATOLOGY Monocytes # 0.8 0.0 - 0.[address] HEMATOLOGY Basophils 0.8 0.0 - 1.[address] HEMATOLOGY Neutrophils # 5.4 1.5 - 8.1 03 Te [facility] HEMATOLOGY Lymphocytes 24.5 20.0 - 03/05 [place] 40.0 /2018 [facility] HEMATOLOGY Segs 63.8 45.0 - 03/05 [place] 75.0 [facility] HEMATOLOGY Monocytes 8.9 2.0 - 12.0 03/ [facility] HEMATOLOGY Platelet 262 133 - 450 03 [facility]2018 [facility] HEMATOLOGY MPV 8.2 7.4 - 10.4 10/10 [facility] HEMATOLOGY Hgb 12.3 12.0 - 03/ [place] 16.0 [facility] HEMATOLOGY RBC 4.13 4.20 - 0305 [place] 5.40 /2018 [facility] HEMATOLOGY WBC 8.4 3.7 - 10.4 10/10 [facility] HEMATOLOGY MCV 88.9 80.0 - 10/10 [facility] 98.0 [facility] HEMATOLOGY MCH 29.9 27.0 - 10/10 [place] 31.0 [facility] HEMATOLOGY Hct 36.7 36.0 - 03 [place] 48.0 [facility] HEMATOLOGY RDW 13.6 11.5 - 03/05 [place] 14.5 [facility] HEMATOLOGY MCHC 33.6 32.0 - 03/05 [place] 36.0 [facility] PARATHYROID Ca Norm WB 1.14 1.05 - 0305 [facility] PROFILE 1.25 [facility] PARATHYROID Ca Ion WB 1.15 1.05 - 10/10 [facility] PROFILE 1. [facility] CHEM PANEL Phosphorus 3.2 2.5 - 4.5 10/09 [facility] CHEM PANEL Magnesium Lvl 1.9 1.8 - 2.4 10/09 [facility] CHEM PANEL eGFR 81 10/09 [facility] Comment: The Medical eGFR is Center calculated using the CKD-EPI formula. In most young, healthy individuals the eGFR will be >90 mL/min/1.73m2 . The eGFR declines with age. An eGFR of 60-89 may be normal in some populations, particularly the elderly, for whom the CKD-EPI formula has not been extensively validated. Use of the eGFR is not recommended in the following populations:< br/>
Carmen viduals with unstable creatinine concentration s, including patients and those with serious co-morbid conditions.<b r/>
Patie nts with extremes in muscle mass or diet.

The data above are obtained from the National Kidney Disease Education Program (NKDEP) which additionally recommends that when the eGFR is used in patients with extremes of body mass index for purposes of drug dosing, the eGFR should be multiplied by the estimated BMI. CHEM PANEL AGAP 10.9 10.0 - 03/ [facility] 20.0 [facility] CHEM PANEL Calcium Lvl 8.5 8.5 - 10.5 10/09 [facility] CHEM PANEL Potassium Lvl 3.9 3.5 - 5.1 03 [facility] CHEM PANEL Sodium Lvl 142 135 - [address] CHEM PANEL Chloride Lvl 111 95 - 109 10/09 [facility] CHEM PANEL Creatinine 0.96 0.50 - 03 [facility] Lvl 1.40 [facility] CHEM PANEL BUN 17 7 - [address] CHEM PANEL Glucose Lvl 126 70 - [address] CHEM PANEL CO2 24 24 - [address] HEMATOLOGY Segs 86.1 45.0 - 03 [facility] 75.0 [facility] HEMATOLOGY Basophils 0.4 0.0 - 1.[address] HEMATOLOGY Neutrophils # 12.7 1.5 - 8.1 03 [facility] HEMATOLOGY Lymphocytes 6.3 20.0 - 03 40.0 [facility] HEMATOLOGY Monocytes 7.2 2.0 - 12.0 03/ [address] HEMATOLOGY Lymphocytes # 0.9 1.0 - 5.[address] HEMATOLOGY Basophils # 0.1 0.0 - 0.2 03 [facility]2018 [facility] HEMATOLOGY Monocytes # 1.1 0.0 - 0.8 03 [facility]2018 [facility] HEMATOLOGY MPV 8.3 7.4 - 10.[address] HEMATOLOGY MCHC 33.3 32.0 - 03 [facility] 36.0 [facility] HEMATOLOGY RDW 13.5 11.5 - 10/09 [place] 14.5 /2018 [facility] HEMATOLOGY Platelet 330 133 - 450 03 [facility] HEMATOLOGY Hgb 12.8 12.0 - 10/09 [facility] 16.0 /2018 [facility] HEMATOLOGY Hct 38.4 36.0 - 10/09 [facility] 48.0 /2018 [facility] HEMATOLOGY MCV 88.1 80.0 - 10/09 [facility] 98.0 /2018 [facility] HEMATOLOGY MCH 29.4 27.0 - 10/09 [facility] 31.0 /2018 [facility] HEMATOLOGY WBC 14.7 3.7 - 10.4 10/09 [facility] HEMATOLOGY RBC 4.36 4.20 - 04 [place] 5.40 [facility] PARATHYROID Ca Ion WB 1.15 1.05 - 10/09 [facility] PROFILE 1.25 [facility] PARATHYROID Ca Norm WB 1.16 1.05 - 10/09 [facility] PROFILE 1. [facility] CARDIAC Troponin-I <0.02 0.00 - 10/08 [facility] ENZYMES 0.40 [facility] URINE AND UA Bacteria Occasional None Seen 10/[place] ST[place]OL /HPF /HPF /2018 [facility] URINE AND UA RBC 0-2 /HPF 0 - 2 10/08 [facility] STOOL [facility] URINE AND UA WBC 0-2 /HPF None Seen 10/08 [facility] STOOL /HPF /[address] [place] [address] URINE AND UA Sq Epi Moderate Few /LPF 10/08 [facility] STOOL /LPF /2018 [facility] URINE AND UA Bili Negative Negative 10/08 [facility] STOOL *NA* /2018 [facility] (10/08/18 9:59 AM) [place] URINE AND UA Glucose Negative Negative 10/08 [facility] (10/08/18 9:59 AM) [facility] URINE AND UA Ketones Negative Negative 10/08 [facility] STOOL *NA* [facility] (10/08/18 9:59 AM) [place] URINE AND UA Spec Grav 1.010 <=1.030 10/08 [facility] /[address] [place] [address] URINE AND UA pH 6.0 5.0 - 8.0 10/08 [facility] STOOL /[address] [place] [address] URINE AND UA Color Yellow Yellow 10/08 [facility] STOOL *NA* /2018 [facility] (10/08/18 9:59 AM) [place] URINE AND UA Turbidity Clear Clear 10/08 [facility] (10/08/18 9:59 AM) /2018 [facility] Center URINE AND UA Nitrite Negative Negative 10/08 [facility] STOOL (10/08/18 9:59 AM) [facility] Center URINE AND UA Protein Negative Negative 10/08 [facility] STOOL (10/08/18 9:59 AM) [facility] URINE AND UA Blood Small Negative 10/08 [facility] STOOL *ABN* /2018 [facility] (10/08/18 9:59 AM) Center URINE AND UA Leuk Est Negative Negative 10/08 [facility] STOOL (10/08/18 9:59 AM) [facility] URINE AND UA 0.2 0.1 - 1.0 10/08 [facility] STOOL Urobilinogen /2018 [facility] HEMATOLOGY PTT 36.5 22.9 - 10/08 [place] 35.8 [facility] HEMATOLOGY PT 13.3 12.0 - 10/08 [place] 14.7 [facility] HEMATOLOGY INR 1.03 0.85 - 10/08 [place] 1.17 [facility] HEMATOLOGY [place] 0.6 10/08 [place] Rapid [facility] HEMATOLOGY R-time Rapid 0.7 0.4 - 0.7 10/08 [place] [facility] HEMATOLOGY ACT (TEG) 113 86 - 118 10/08 [place] Rapid [facility] HEMATOLOGY G-value Rapid 15.0 5.0 - 11.6 10/08 [place] [facility] HEMATOLOGY K-time Rapid 0.8 0.6 - 2.3 10/08 [place] [facility] HEMATOLOGY Estimated % 0.3 0.0 - 7.5 10/08 [place] [facility] HEMATOLOGY Angle Rapid 79 64 - 80 10/08 [facility] HEMATOLOGY Max Amplitude 75 52 - 71 10/08 [place] [facility] Center BLOOD BANK ABO/Rh O POS 10/08 [place] RESULTS [facility] Center BLOOD BANK Antibody Scrn Negative 10/08 [place] RESULTS (10/08/18 9:20 AM) [facility] CARDIAC Troponin-I <0.02 0.00 - 10/08 [facility] ENZYMES 0.40 [facility] CHEM PANEL Phosphorus 3.9 2.5 - 4.5 10/08 [facility] CHEM PANEL Magnesium Lvl 1.9 1.8 - 2.4 10/08 [facility] [place] [facility] CHEM PANEL Lactic Acid 0.8 0.5 - 2.2 10/08 [facility] s Lvl [facility] HEMATOLOGY Basophils # 0.1 0.0 - 0.2 10/08 [facility] s [facility] HEMATOLOGY Eosinophils # 0.1 0.0 - 0.5 10/08 [facility] HEMATOLOGY Eosinophils 1.8 0.0 - 4.0 10/08 [facility] s [facility] Pathology Reports No Data Provided for This Section Diagnostic Reports Report Value Date Source Brain wo contrast CT EXAM: CT BRAIN WITHOUT CONTRAST 12/07/2018 [facility] DATE: 12/07/2018 10:20 CDT INDICATION: - pt is scheduled w/ Trauma clinic on 12/07 @ 11:15am COMPARISON: CT brain without contrast 10/24/2018 at 08 42. TECHNIQUE: Routine axial jeri ges of the brain were obtained without contrast.Coronal and sagittal reformatted images. IV contrast: None. FINDINGS: Surgical changes are again n oted related to prior right frontal parietal minerva holes for evacuation of a right cerebral convexity subdural hematoma. Previously demonstrated areas of subdural hemorrhage a long the right cerebral conv exity and right tentorial leaflet has resolved. Previously seen traumatic subarachnoid hemorrhage along some of the right cerebral convexity sulci has resolved. No new intrac ranial hemorrhage or mass ef fect. No midline shift or downward herniation. The gutierrez-white interfaces are preserved. Previously seen small area of hypodense edema or encephalomalacia in the right frontal lobe is less conspicuous on today's exam. The ventricles are normal in size. The basal cisterns are patent. IMPRESSION: No adverse interval change. Previously seen areas of sub dural and subarachnoid hemorrhage along the right cerebral convexity have resolved. Postoperative changes related to right frontoparietal cranial minerva holes. Brain wo contrast CT Clinical Indication: -Evaluate for sub dural hematoma. 10/24/2018 [facility] Comparison: Comparison is made to CT study of TECHNIQUE: CT images were ob tained from the foramen magnum to the vertex on a multidetector CT. Coronal and sagittal reconstructions were obtained. CT radiation dose DLP: 436 mGy-cm FINDINGS: BRAIN PARENCHYMA: There is n o longer a subdural hematoma along the right frontal convexity or along the free edge of the tentorium/falx cerebri. There is no acute cortical infarct or parenchymal hemorrh age. Minimal subcortical gli osis is suspected in the right frontal lobe. Sella and parasellar structures in normal. There is no cerebellar tonsillar ectopia. VENTRICLES: The lateral vent ricles, third and fourth ventricles appear unremarkable. The basilar cisterns are normal. ORBITS, MASTOIDS AND PARANAS AL SINUSES: The visualized orbits and paranasal sinuses are unremarkable. The mastoid air cells are clear. SKULL: There are 2 minerva holes in the right front al cranium. IMPRESSION: There is no longer a subdura l hematoma along the right frontal convexity or along the free edge of the tentorium/falx cerebri. There is no acute cortical infarct or parenchymal hemorrhage. Minimal subco rtical gliosis is suspected in the right frontal lobe. SL: IRIS Brain wo contrast CT 10/08/2018 [facility] dical EXAMINATION: CT head without contrast Center DATE: 10/08/2018 INDICATION: Subdural hemorrhage. FINDINGS: Noncontrast CT images of the head are compared to an examination performed 8 hours earlier the same day at an outside institution prior to transfer. Over the interval, minerva hole craniotomies have been performed over the right hemisphere with evacuation of the previously described subdural collection. Extra-axial drainage catheters are in place. Ther e is been some improvement i n mass effect and midline shift some residual right to left shift of about 3.5 mm. Brain parenchyma is unremarkable. IMPRESSION: Status post right-sided subd ural hematoma evacuation. Unremarkable postoperative appearance. Resident preliminary: 1. Postoperative changes fr om same day evacuation of chronic subdural hematoma on the right with minerva holes present in the right frontal and right parietal bones. 2. Extra-axial fluid measur ing approximately 9 mm along the right cerebral convexity. 3. Right to left midline sh ift measures approximately 7 mm centered on the septum pellucidum. 4. Pneumocephalus and subga johnson emphysema near the minerva hole entry sites are as expected. [place] SECTION: Neuro Consultation Notes No Data Provided for This Section Discharge Summaries No Data Provided for This Section History and Physicals No Data Provided for This Section Vital Signs Vital Sign Value Date Comments Source Heart Rate 83 10/11/2018 [facility] Center Temperature Oral (F) 97.9 F 10/11/2018 [facility] Respitory Rate 18 10/11/2018 [facility] Systolic (mm Hg) 129 10/11/2018 [facility] dical Center Diastolic (mm Hg) 86 10/11/2018 [facility] Center Systolic (mm Hg) 138 10/11/2018 [facility] dical Center Diastolic (mm Hg) 90 10/11/2018 [facility] Respitory Rate 18 10/11/2018 [facility] Heart Rate 82 10/11/2018 [facility] Temperature Oral (F) 99.1 F 10/11/2018 [facility] Temperature Oral (F) 97.9 F 10/11/2018 [facility] Heart Rate 84 10/11/2018 [facility] Respitory Rate 18 10/11/2018 [facility] Systolic (mm Hg) 127 10/11/2018 [facility] Diastolic (mm Hg) 85 10/11/2018 [facility] Weight 95.456 10/08/2018 [facility] Weight 95.455 10/08/2018 [facility] Height 172.72 cm 10/08/2018 [facility] BMI Calculated 32 10/08/2018 [facility] Encounters Location Location Encounter Encounter Reason Attending ADM DC Stat us Source Details Type Number For Provider Date Date Visit [facility] [id number] Steven 10/08 10/11 Crystal [facility] /2018 [facility] Phone [id number] 10/17 10/19 Misc her Neurosurger Message [facility] [id number] Edis 10/24 10/25 [facility] [id number] TRAUMA 10/26 Active [facility] [place] [facility] [id number] Edis 10/26 10/27 [facility] Phone [id number] 10/27 10/29 Misc her Neurosurger Message /2018 [facility] Phone [id number] 10/31 11/02 Misc her Neurosurger Message [facility] [id number] TRAUMA 12/07 Active [facility] [place] [facility] Out[facility] Diag [id number] Edis 12/07 12/08 [facility] [place] [facility]patient [id number] Edis 12/07 12/08 [facility] Neurosurger Leroy ro y [facility] Phone [id number] 12/08 12/10 Misc her Neurosurger Message [facility] Phone [id number] 12/21 12/23 Misc her Neurosurger Message [facility] Phone [id number] 04/04 04/06 Misc her Neurosurger Message [facility] Procedures No Data Provided for This Section Assessment and Plan No Data Provided for This Section Plan of Care No Data Provided for This Section Social History Social History Date Source Social History TypeResponse 10/08/2018 [facility] Smoking Status Never smoker; Previous treatment: None; Exposure to Tobacco Smoke None; Cigarette Smoking Last 365 Days No; Reg Smoking Cessation Counseling No entered on: 10/08/18 Social History TypeResponse 10/08/2018 [facility] Smoking Status Never smoker; Previous treatment: None; Exposure to Tobacco Smoke None; Cigarette Smoking Last 365 Days No; Reg Smoking Cessation Counseling No entered on: 10/08/18 Social History TypeResponse 10/08/2018 [facility] [place] Smoking Status Never smoker; Previous treatment: None; Exposure to Tobacco Smoke None; Cigarette Smoking Last 365 Days No; Reg Smoking Cessation Counseling No entered on: 10/08/18 Social History TypeResponse 10/08/2018 [facility] Smoking Status Never smoker; Previous treatment: None; Exposure to Tobacco Smoke None; Cigarette Smoking Last 365 Days No; Reg Smoking Cessation Counseling No entered on: 10/08/18 Family History No Data Provided for This Section Advance Directives No Data Provided for This Section Functional Status No Data Provided for This Section
--- OUTSIDE RECORDS SUMMARY | 2020-02-24 15:52 | XMS REPORT | Summary of Care ---
:1970 Author Organization [facility] Address [address] [place] [address] Care Team Providers Name Role Phone Pcp, Does Not Have A Primary Care Provider Reason for Visit Reason Comments Skin Problem Encounter Details Date Type Department Care Team Description 12/20/2019 Case Management [facility] D[facility]atology, Diana Tate, Skin Problem [place] [address] [place] [address] [address] [facility] Entrance [address], [address] [place] [id number] Allergies Active Allergy Reactions Severity Noted Date Comments Penicillins Other - See comments 05/14/2015 Childho od allergy documented as of this encounter (statuses as of 12/20/2019) Medications Medication Sig Dispensed Refills Start Date End Date Status ciprofloxacin HCl Take 1 tablet by 20 tablet 3 02/01/2019 Active (CIPRO) 500 mg mouth tabletIndications: SEE-INSTRUCTIONS. Recurrent UTI 1 PO BID x 3 days when UTI symptoms begin cetirizine 10 mg Take 1 tablet by 30 tablet 0 10/22/2019 Active tabletIndications: mouth daily. Viral URI with cough fluticasone propionate Use 2 Sprays in 16 g 0 10/22/2019 Active 50 mcg/actuation nasal each nostril sprayIndications: Viral daily. URI with cough brompheniramine-pseudoe Take 5 mL by 118 mL 0 10/22/2019 Active phedrine-DM (BROMFED mouth 3 (three) DM) 2-30-10 mg/5 mL times daily as syrupIndications: Viral needed for Cold URI with cough symptoms. documented as of this encounter (statuses as of 12/20/2019) Active Problems Problem Noted Date Status post vaginal hysterectomy 09/30/2015 Post-operative state 09/30/2015 Uterine polyp 08/12/2015 Goiter 05/14/2015 documented as of this encounter (statuses as of 12/20/2019) Resolved Problems Problem Noted Date Resolved Date Excessive or frequent menstruation 08/12/201510/13 documented as of this encounter (statuses as of 12/20/2019) Social History Tobacco Use Types Packs/Day Years Used Date Never Smoker Smokeless Tobacco: Never Used Alcohol Use Drinks/Week oz/Week Comments Yes 0 Standard drinks or equivalent 0.0 Sex Assigned at Date Recorded Not on file Job Start Date Occupation Industry Not on file Not on file Not on file Travel History Travel Start Travel End No recent travel history available. documented as of this encounter Last Filed Vital Signs Not on filedocumented in this encounter Progress Notes Diana Tate MD - 12/20/2019 6:07 PM CDTCalled patient thrice for Telehealth appointment scheduled for 10/19/19 without response. Left VM on first attempt. Visit not completed. documented in this encounter Plan of Treatment Date Type Specialty Care Team Description 01/25/2020 Office Visit Endocrinology Diabetes & Erick Belcher MD [facility] [address] [address] 15 [phone] Health Maintenance Due Date Last Done Comments DTaP,Tdap,and Td Vaccines (1 - 1982 Tdap) Breast Cancer Screening 2011 (MAMMOGRAM) PAP SMEAR 09/09/2014 09/09/2011 INFLUENZA VACCINE (Season Ended) 2020 PNEUMOCOCCAL 0-64 YEARS COMBINED Aged Out No longer eligible based on SERIES patient's age to complete this topic documented as of this encounter Results Not on filedocumented in this encounter Insurance Payer Benefit Plan / Subscriber ID Effective Dates Phone Addre ss Type Group [place] xxxxxxxxx 2019-Present Medicaid HEALTH PLAN - HEALTH MANAGED MEDICAID documented as of this encounter Advance Directives Type Date Recorded Patient Community Health Education Coordinator Explanati on Advance Directives and Living 05/18/2015 2:24 PM Will Power of Salad Bar Clerk 08/10/2013 2:49 PM
--- OUTSIDE RECORDS SUMMARY | 2020-02-24 15:52 | XMS REPORT | Continuity of Care Document ---
:1970 Author Organization [facility] t Address [address] [place] [address] Care Team Providers Name Role Phone Ree Tate MD Attending Clinician Julio Cesar LONDON Attending Clinician VISIT, CLINIC Attending Clinician Unavailable Linda Ken Attending Clinician Xiomy Cazares II Attending Clinician Brandyn Duvall Jr Admitting Clinician Problems Condition Condition Condition Status Onset Resolution Last Treating Co mments Source Name Details Category Date Date Treatment Clinician Date CHRONIC Diagnosis Active 2019-02-01 Me moria SDH 3-03 10:05:00 l CHRONIC 00:00: [place] SDH 00 Active 10/08/2018 [facility] NON Diagnosis Active 2018-10-08 Mem oria SUBACUTE 3-03 10:22:00 l TRAUMATIC NON 00:00: [place] SUBDURAL SUBACUTE 00 HEMATOMA TRAUMATIC SUBDURAL HEMATOMA Active 10/08/2018 [facility] Simple Problem Active 2019-04-08 Memor ia obesity 00:24:36 l (disorder) Simple Herm ree obesity (disorder) Active Problem 04/08/2019 Ariel Neuro, HEATH Gonazlez, HEATH Palumbo NONTRAUMAT Diagnosis Active 2019-02-01 Memoria IC CHRONIC 10:05:00 l SUBDURAL [place] HEMORRHAGE NONTRAUMAT IC CHRONIC SUBDURAL HEMORRHAGE Active [facility] Allergies, Adverse Reactions, Alerts Allergy Allergy Status Severity Reaction(s) Onset Inactive Treating Comm ents Source Name Type Date Date Clinician penicill penicill Active Memori a in in l [place] Social History Smoking Status Start Date Stop Date Source Social History [facility] Medications Ordered Filled Start Stop Current Ordering Indication Dosage Frequency Signature Comments Components Source Medication Medication Date Date Medication? Clinician (SIG) Name Name mikeocarbam Yes 500 mg = 1 Memoria ol 500 mg 3-06 tab, PO, l oral tablet 15:24: Q8H, X 5 He rmann 00 day, # 15 tab, 0 Refill(s) Levetiracet Yes 500 mg = 1 Memoria am 500 MG 3-06 tab, PO, l Oral Tablet 15:24: Q12H, # 6 H erm 00 tab, 0 Refill(s) Albuterol Yes 3 mL, NEB, Me moria 0.833 MG/ML 3-06 RQ4H, PRN l / 15:24: Wheezing, [place] Ipratropium 00 0 [place] Refill(s) 0.167 MG/ML Inhalant Solution Acetaminoph Yes 100.4 F, M emoria en 325 MG 3-06 0 l Oral Tablet 15:24: Refill(s) H erm Bisacodyl No Notes: Memori a 3-05 (Same As: l 20:47: Dulcolax, Bisco-Lax) Tramadol No Notes: Not Mem oria 3-05 to exceed l 19:56: 400mg/day. (Same As: Ultram) heparin No Notes: Memoria 3-05 porcine l 05:55: heparin remove No 1 patch, Memoria patch 3-05 Route: l 03:00: TOP, [place] 00 Bedtime, Drug form: ERFILM, Start date: 10/09/18 21:00:00 TUBE DEPATCHER, Duration: 30 day, Stop date: 11/07/18 21:00:00 CDT Robaxin No Notes: Memoria 3-04 (Same l 19:00: as:Robaxin ) Lyrica No Notes: Memoria 3-04 (Same as: l 15:18: Lyrica) [place] 00 Miralax No Notes: Memoria 3-04 Dissolve l 15:17: in 8 oz of water or juice. (Same as: Miralax) Lidocaine No 1 patch, Edison anny 0.05 MG/MG 10-09 Route: l Transdermal 15:00: TOP, Narinder n Patch 00 Daily, Drug form: FILM, Start date: 10/09/18 9:00:00 TUBE DEPATCHER, Duration: 30 day, Stop date: 11/07/18 9:00:00 CDT Tramadol No Notes: Not Mem oria -04 to exceed l 04:24: 400mg/day. [place] (Same As: Ultram) Keppra No Notes: Memoria 3-04 (Same l 03:00: as:Keppra) Saline No Notes: Memoria Flush 0.9% 10-09 (Same as: l 03:00: BD Posiflush) Levetiracet No Notes: Memoria am 10-09 MEDICATION l 03:00: WASTE Product Size: 500 mg Product Wasted: ___ mg sennosides, No Notes: Edison anny ALF -04 (Same as: l 03:00: Senokot) Docusate No 100 mg, 1 Edison anny -04 cap, l 03:00: Route: PO, Drug form: CAP, Q12H, Dosing Weight 95.455, kg, Start date: 10/08/18 21:00:00 TUBE DEPATCHER, Duration: 30 day, Stop date: 11/07/18 9:00:00 CDT Vancomycin 0 No 2001 mg: Me moria 3-04 infuse l 00:00: over 2.5 hours For adult patients only: Round to nearest 250 mg per Medical Staff approval MEDICATION WASTE Product Size: 1000 mg Product Wasted: ___ mg Artificial No 2 drp, Memor ia Tears 10-08 Route: l 23:00: BOTH EYES, BID, Drug form: SOLN, Start date: 10/08/18 17:00:00 TUBE DEPATCHER, Duration: 30 day, Stop date: 11/07/18 9:00:00 CDT Vancomycin 2019-0 No 1 gm, Memori a 3-03 Route: IV, l 22:00: Q8H, [place] 00 Dosing Weight 95.455, kg, Start date: 10/08/18 16:00:00 TUBE DEPATCHER, Duration: 1 day, Stop date: 10/09/18 8:00:00 TUBE DEPATCHER, ABX Indication : Surgical Prophylaxi s Glucagon 2019-0 No 1 mg, Memoria 3-03 Route: IM, l 20:19: Drug form: [place] 00 PDR/INJ, PRN, Dosing Weight 95.455, kg, PRN Blood Glucose Results, Start date: 10/08/18 14:19:00 TUBE DEPATCHER, Duration: 30 day, Stop date: 11/07/18 15:18:00 CDT Dextrose 2019-0 No 25 gm, 50 Edison anny 50% Syringe 3-03 mL, Route: l 20:19: IVP, Drug Form: INJ, Dosing Weight 95.455, kg, PRN, PRN Blood Glucose Results, Start date: 10/08/18 14:19:00 TUBE DEPATCHER, Duration: 30 day, Stop date: 11/07/18 15:18:00 CDT Insulin 2019-0 No 60 Memoria regular 3-03 units) l 20:19: WASTE: F/P Carlos 00 - Black; E - Municipal Trash Bin Stable for 28 days at room temperatur e Expires in days from ____Date Potassium 2019-0 No Notes: Memori a Chloride 3- (Same as: l 20:18: KCL) [place] 00 Infuse over 2 hours. Calcium 2018-0 No Notes: Memoria Gluconate 3-03 WASTE: F/P l 20:18: - Sink; E Carlos - Municipal Trash Bin Magnesium 2018-0 No Notes: Memori a Oxide 3-03 (Same as: l 20:18: Mag-Ox [place] 00 400) Magnesium oxide 450aa=963k g elemental magnesium Dose=____m g magnesium oxide (___mg elemental magnesium) Calcium 2019-0 No Notes: Memoria Carbonate 3-03 (Same As: l 500 MG 20:18: Tums) [place] Chewable 00 Calcium Tablet Carbonate 500 mg = 200 mg elemental calcium Dose = mg calcium carbonate ( mg elemental calcium) potassium No Notes: Memori a phosphate - (Same as: l 20:18: K [place] 00 Phosphate. ) Do not infuse phosphorou s concurrent ly in the same line as TPN or IVF that contains calcium. For double lumen central lines, phosphorou s may be infused in a separate lumen from TPN. 1 mMol phoshate has 1.47 mEq potassium Infuse over 4 hours potassium No Notes: Memori a phosphate-s - (Same as: l odium 20:18: Phos-NaK) Carlos phosphate 00 Each 1.5 250 mg-280 gm pkt has mg-160 mg 250mg oral powder phosphorou for s. Mix reconstitut w/2.5oz ion water and stir. Magnesium No Notes: Memori a Sulfate 10-08 WASTE: F/P l 20:18: - Sink; E Carlos 00 - Municipal Trash Bin sodium No Notes: Memoria phosphate - Infuse l 20:18: over 4 [place] 00 hour. Do not infuse phosphorou s concurrent ly in the same line as TPN or IVF that contains calcium. For double lumen central lines, phosphorou s may be infused in a separate lumen from TPN. Hydralazine No Notes: Edison anny - (Same as: l 20:13: Apresoline ) Push over 5 minutes Labetalol No 10 mg, 2 Edison anny 3-03 mL, Route: l 20:13: IVP, Drug [place] 00 form: INJ, Q4H, Dosing Weight 95.455, kg, PRN Hypertensi on, Start date: 10/08/18 14:13:00 TUBE DEPATCHER, Duration: 30 day, Stop date: 11/07/18 14:12:00 CDT sugammadex No Route: IV, Norma emoria (ANES) 10-08 Drug form: l 18:30: SOLN, [place] 00 ONCE, Stop date: 10/08/18 12:30:00 TUBE DEPATCHER Hydralazine No 10 mg, Edison anny 10-08 Route: l 18:18: IVP, [place] 00 Q20Min, Dosing Weight 95.455, kg, PRN Elevated BP, Start date: 10/08/18 12:18:00 TUBE DEPATCHER, Duration: 2 doses or times, Stop date: Limited # of times Labetalol 2019-0 No 10 mg, 2 Edison anny 3-03 mL, Route: l 18:18: IVP, Drug form: INJ, Q5Min, Dosing Weight 95.455, kg, PRN Elevated BP, Start date: 10/08/18 12:18:00 TUBE DEPATCHER, Duration: 5 doses or times, Stop date: 10/09/18 0:00:00 TUBE DEPATCHER Acetaminoph 2019-0 No 1,000 mg, M emoria en 3 Route: PO, l 18:18: Drug form: [place] 00 TAB, ONCE, Dosing Weight 95.455, kg, PRN Pain Score 1-3, Start date: 10/08/18 12:18:00 TUBE DEPATCHER Promethazin 2019-0 No 6.25 mg, Me moria e 3 Route: l 18:18: IVPB, [place] 00 ONCE, Dosing Weight 95.455, kg, PRN Nausea & Vomiting, Start date: 10/08/18 12:18:00 TUBE DEPATCHER Ondansetron 2019-0 No 4 mg, Memor ia 3 Route: l 18:18: IVP, ONCE, Dosing Weight 95.455, kg, PRN Nausea & Vomiting, Start date: 10/08/18 12:18:00 TUBE DEPATCHER Dexamethaso 2019-0 No 4 mg, Memor ia ne 3 Route: l 18:18: IVP, ONCE, Dosing Weight 95.455, kg, PRN Nausea & Vomiting, Start date: 10/08/18 12:18:00 TUBE DEPATCHER Naloxone 2019-0 No 0.4 mg, Memori a 3 Route: l 18:18: IVP, [place] 00 Q2MIN, Dosing Weight 95.455, kg, PRN Narcotic Reversal, Start date: 10/08/18 12:18:00 TUBE DEPATCHER, Duration: 8 doses or times, Stop date: Limited # of times Flumazenil 2019-0 No 0.2 mg, Edison anny 3- Route: l 18:18: IVP, PRN, Dosing Weight 95.455, kg, PRN Benzodiaze pine Reversal, Initial dose, Start date: 10/08/18 12:18:00 TUBE DEPATCHER, Duration: 30 day, Stop date: 11/07/18 13:17:00 CDT Hydromorpho No 0.5 mg, Mem oria ne 10-08 Route: l 18:18: IVP, Q5Min, Dosing Weight 95.455, kg, PRN Pain Score 7-10, Start date: 10/08/18 12:18:00 TUBE DEPATCHER, Duration: 4 doses or times, Stop date: Limited # of times sugammadex No Notes: Memor ia 10-08 (Same as: l 18:00: [place]) famotidine No Route: IV, M emoria (ANES) 10-08 Drug form: l 17:59: INJ, ONCE, Stop date: 10/08/18 11:59:00 TUBE DEPATCHER metoclopram No Route: IV, Memoria anais (ANES) 10-08 Drug form: l 17:59: INJ, ONCE, Stop date: 10/08/18 11:59:00 TUBE DEPATCHER ondansetron No Route: IV, Memoria (ANES) 10-08 Drug form: l 17:59: INJ, ONCE, Stop date: 10/08/18 11:59:00 TUBE DEPATCHER phenylephri No Route: IV, Memoria ne (ANES) 10-08 Drug form: l 17:57: INJ, ONCE, Stop date: 10/08/18 11:57:00 TUBE DEPATCHER lidocaine 2018-0 No Route: IV, Me moria (ANES) 10-08 Drug form: l 17:51: INJ, ONCE, Stop date: 10/08/18 11:51:00 TUBE DEPATCHER dexamethaso No Route: IV, Memoria ne (ANES) 10-08 Drug form: l 17:51: INJ, ONCE, Stop date: 10/08/18 11:51:00 TUBE DEPATCHER propofol 0 No Route: IV, Mem oria (ANES) 10-08 Drug form: l 17:51: INJ, ONCE, Stop date: 10/08/18 11:51:00 TUBE DEPATCHER rocuronium No Route: IV, M emoria (ANES) 10-08 Drug form: l 17:51: INJ, ONCE, Stop date: 10/08/18 11:51:00 TUBE DEPATCHER levETIRAcet No Route: IV, Memoria am (ANES) 10-08 Drug form: l 17:51: INJ, ONCE, Stop date: 10/08/18 11:51:00 TUBE DEPATCHER fentaNYL No Route: IV, Mem oria (ANES) 10-08 Drug form: l 17:51: INJ, ONCE, Stop date: 10/08/18 11:51:00 TUBE DEPATCHER propofol No Route: IV, Mem oria (ANES) 10 10-08 Drug form: l mg 16:30: INJ, Start date: 10/08/18 10:30:00 TUBE DEPATCHER, Stop date: 10/08/18 11:30:00 TUBE DEPATCHER remifentani No Route: IV, Memoria l (ANES) 1 10-08 Drug form: l mg 16:30: INJ, Start date: 10/08/18 10:30:00 TUBE DEPATCHER, Stop date: 10/08/18 11:30:00 TUBE DEPATCHER Sodium No Route: IV, Memor ia Chloride 10-08 Drug form: l 0.9% IV 16:25: INJ, Start Herm ree (ANES) 235 00 date: mL + 10/08/18 vancomycin 10:25:00 (ANES) 1500 TUBE DEPATCHER, Stop mg date: 10/08/18 11:25:00 TUBE DEPATCHER Isolyte S No Route: IV, Me moria PH 7.4 10-08 Total l (ANES) 1000 16:09: Volume: Her salas mL 00 1,000, Start date: 10/08/18 10:09:00 TUBE DEPATCHER, Stop date: 10/08/18 11:09:00 TUBE DEPATCHER Saline No Notes: Memoria Flush 0.9% 10-08 (Same as: l 15:57: BD Posiflush) Albuterol No 3 ml, Memoria 0.833 MG/ML 3-03 Route: l / 15:57: NEB, Drug [place] Ipratropium 00 Form: [place] SOLN, 0.167 MG/ML Dosing Inhalant Weight Solution 95.455, kg, RQ4H, PRN Wheezing, Start date: 10/08/18 9:57:00 TUBE DEPATCHER, Duration: 30 day, Stop date: 11/07/18 9:56:00 CDT Labetalol 2018-0 No 10 mg, 2 Edison anny 3-03 mL, Route: l 15:57: IVP, Drug [place] 00 form: INJ, Q15Min, Dosing Weight 95.455, kg, PRN Hypertensi on, Start date: 10/08/18 9:57:00 TUBE DEPATCHER, Duration: 30 day, Stop date: 11/07/18 10:56:00 CDT Hydralazine 2018-0 No 20 mg, 1 Me moria 3-03 mL, Route: l 15:57: IVP, Drug [place] 00 form: INJ, Q4H, Dosing Weight 95.455, kg, PRN Hypertensi on, Start date: 10/08/18 9:57:00 TUBE DEPATCHER, Duration: 30 day, Stop date: 11/07/18 9:56:00 CDT Sodium 0 No 1,000 mL, Memori a Chloride 10-08 Rate: 50 l 0.9% IV 15:57: ml/hr, Carlos 1,000 mL 00 Infuse over: 20 hr, Route: IV, Dosing Weight 95.455 kg, Total Volume: 1,000, Start date: 10/08/18 9:57:00 TUBE DEPATCHER, Duration: 30 day, Stop date: 11/07/18 9:56:00 CDT, 2.16, m2 Levetiracet 2018-0 No Notes: Edison anny am -03 Same as l 15:57: Keppra [place] 00 Mix with 100 mL NS, LR or D5W MEDICATION WASTE Product Size: 500 mg Product Wasted: ___ mg Acetaminoph 2018-0 No 100.4 F, M emoanny en 303 Start l 15:57: date: [place] 10/08/18 9:57:00 TUBE DEPATCHER, Duration: 30 day, Stop date: 11/07/18 9:56:00 CDT Ondansetron 2019-0 No Notes: Memoria 3-03 MEDICATION l 15:57: WASTE [place] Product Size: 4 mg Product Wasted: ___ mg Bisacodyl 2019-0 No 10 mg, 1 Edison anny 3-03 supp, l 15:57: Route: WA, [place] 00 Drug form: SUPP, Daily, Dosing Weight 95.455, kg, PRN Constipati on, Start date: 10/08/18 9:57:00 TUBE DEPATCHER, Duration: 30 day, Stop date: 11/07/18 9:56:00 CDT Zofran 2019-0 No 4 mg, Memoria 3- Route: l 15:09: IVP, Drug [place] 00 form: INJ, ONCE, Dosing Weight 95.455, kg, Priority: STAT, Start date: 10/08/18 9:09:00 TUBE DEPATCHER, Stop date: 10/08/18 9:09:00 TUBE DEPATCHER Morphine 2019-0 No 4 mg, Memoria - Route: l 15:09: IVP, ONCE, Dosing Weight 95.455, kg, Priority: STAT, Start date: 10/08/18 9:09:00 TUBE DEPATCHER, Stop date: 10/08/18 9:09:00 TUBE DEPATCHER Sodium 2019-0 No 1,000 mL, Memori a Chloride - Infuse l 0.9% 15:09: Over: 1 [place] (Bolus) IV 00 hr, Route: IV, ONCE, Priority: STAT, Dosing Weight 95.455 kg, Start date: 10/08/18 9:09:00 TUBE DEPATCHER, Stop date: 10/08/18 9:09:00 TUBE DEPATCHER Vital Signs Vital Name Observation Time Observation Value Comments Source Heart Rate 2018-10-11 17:26:00 [facility] Temperature Oral (F) 2018-10-11 17:26:00 97.9 F [facility] Respitory Rate 2018-10-11 17:26:00 Memori al [place] Systolic (mm Hg) 2018-10-11 17:26:00 Edison rial [place] Diastolic (mm Hg) 2018-10-11 17:26:00 Mem orial [place] Systolic (mm Hg) 2018-10-11 13:44:00 Edison rial [place] Diastolic (mm Hg) 2018-10-11 13:44:00 Mem orial [place] Respitory Rate 2018-10-11 13:44:00 Memori al [place] Heart Rate 2018-10-11 13:44:00 [facility] [place] Temperature Oral (F) 2018-10-11 13:44:00 99.1 F [facility] [place] Temperature Oral (F) 2018-10-11 10:47:00 97.9 F [facility] [place] Heart Rate 2018-10-11 10:47:00 [facility] [place] Respitory Rate 2018-10-11 10:47:00 Memori al [place] Systolic (mm Hg) 2018-10-11 10:47:00 Edison rial [place] Diastolic (mm Hg) 2018-10-11 10:47:00 Mem orial [place] Weight 2018-10-08 21:12:00 [facility] [place] Weight 2018-10-08 14:38:00 [facility] [place] Height 2018-10-08 14:38:00 [facility] Calculated 2018-10-08 14:38:00 Memori al [place] Procedures This patient has no known procedures. Encounters Start End Encounter Admission Attending Care Care Encounter Source Date/Time Date/Time Type Type Clinicians Facility Department ID 2018-10-08 Inpatient E [facility] [id number] [facility] 09:57:00 2019-12-20 2019-12-20 [id number] 00:00:00 00:00:00 Management Diana [facility] [id number] IALTY [id number] CENTER [id number] [facility] 2019-11-13 2019-11-13 Nazario Harrell [facility] [id number] 00:00:00 00:00:00 [facility] [id number] Surgical [id number] Specialti [id number] es [address] [place] 2019-10-22 2019-10-22 [facility] [id number] 18:16:28 18:31:28 Care [facility] [id number] Surgical [id number] Specialti [id number] es 370 [place] 2019-04-04 2019-04-05 Outpatient MHMISCHER MHMISCHER [id number] 12:21:53 23:59:59 2018-12-21 2018-12-22 Outpatient MHMISCHER MHMISCHER [id number] 10:05:32 23:59:59 2018-12-08 2018-12-09 Outpatient MHMISCHER MHMISCHER [id number] 13:27:20 23:59:59 2018-12-07 2018-12-07 Outpatient VISIT, MHMISCHER MHMISCHER [id number] 11:15:00 23:59:59 [facility] 2018-12-07 2018-12-07 [facility] [id number] 10:09:00 23:59:00 Edis Mckeon 2018-10-31 2018-11-01 Outpatient MHMISCHER MHMISCHER [id number] 12:52:00 23:59:59 2018-10-27 2018-10-28 Outpatient MHMISCHER MHMISCHER [id number] 09:49:00 23:59:59 2018-10-26 2018-10-26 Outpatient VISIT, MHMISCHER MHMISCHER [id number] 12:15:00 23:59:59 [facility] 00 CLINIC 2018-10-24 2018-10-24 Outpatient MICHAEL KenP OIP [id number] 08:26:00 23:59:00 Edis Mckeon 2018-10-17 2018-10-18 Outpatient MHMISCHER MHMISCHER [id number] 10:08:00 23:59:59 2018-10-08 2018-10-11 Outpatient Sage [facility] [id number] 08:37:00 15:18:00 Bryan Pisano Results Test Description Test Time Test Comments Results Result Comments Source CHEM PANEL 2018-10-11 73 [facility] 06:11:00 CHEM PANEL 2018-10-11 74 [facility] 06:11:00 CHEM PANEL 2018-10-11 0.93 [facility] 06:11:00 CHEM PANEL 2018-10-11 140 [facility] 06:11:00 CHEM PANEL 2018-10-11 18 [facility] 06:11:00 CHEM PANEL 2018-10-11 8.9 [facility] 06:11:00 CHEM PANEL 2018-10-11 3.9 [facility] nn 06:11:00 CHEM PANEL 2018-10-11 106 [facility] 06:11:00 CHEM PANEL 2018-10-11 26 [facility] 06:11:00 CHEM PANEL 2018-10-11 11.9 [facility] 06:11:00 HEMATOLOGY 2018-10-11 9.0 [facility] 06:11:00 HEMATOLOGY 2018-10-11 319 [facility] 06:11:00 HEMATOLOGY 2018-10-11 8.7 [facility] 06:11:00 HEMATOLOGY 2018-10-11 13.6 [facility] 06:11:00 HEMATOLOGY 2018-10-11 33.2 [facility] nn 06:11:00 HEMATOLOGY 2018-10-11 06:11:00 Test Item Value Reference Range Interpretation Comme nts MCH (test code = MCH) 29.6 pg 27.0-31.0 [facility] HuwssrmIVMEVFBWEH3809-27-69 06:11:0038.3[facility]annHEMATOLOGY 2018-10-11 06:11:004.30[facility] ZjcghugOLLHQRBWZQ7849-82-94 06:11:0089.1[facility] EmqeqerQKFJIELFXE5180-49-78 06:11:0012.7[facility] GhbbahmHFOGRONFVX8786-73-75 06:11:002.9[facility] MoguoiaBIHZKFZADV3060-68-25 06:11:0028.7[facility] Carlos YPOOXFKHQZ1253-79-72 06:11:009.5[facility] LavnuvyATMXVYXWVI1983-97-08 06:11:00 58.7[facility] CxnjsnbTEIEIWQASA5001-80-69 06:11:002.6[facility] HermannHEMATOLOGY 2018-10-11 06:11:000.3[facility] CfkikseRQXNVLWTNU0874-14-95 06:11:000.2[facility] GmwllwqOZSDYBSRFF4355-39-38 06:11:005.3[facility] WvdlqurKCIYIKYSBB9643-52-89 06:11:000.9[facility] HermannCHEM OBQTH2686-48-31 06:24:002.0[facility] HermannCHEM MTAHN5437-49-25 06:24:0068[facility] HermannCHEM FVPUI4017-58-57 06:24:003.9 [facility] HermannCHEM JPRQV6611-62-28 06:24:16247Mbfubjie HermannCHEM PANEL 2018-10-10 06:24:07208Xyhjrogy HermannCHEM YTENF6615-50-78 06:24:001.00[facility] HermannCHEM QHJBL9616-41-97 06:24:0090[facility] HermannCHEM SBKKY1101-83-05 06:24:0021[facility] HermannCHEM UOASK7659-92-12 06:24:0028[facility] HermannCHEM JZVSD6592-04-13 06:24:008.6[facility] HermannCHEM HYKNZ1107-35-37 06:24:007.9 [facility]annCHEM FWPVX6924-95-08 06:24:003.9[facility] HermannHEMATOLOGY 2018-10-10 06:24:000.1[facility] LidaactFULLETUWRO9729-15-38 06:24:000.2[facility] RfmcrgiKONLXPARWE8673-75-62 06:24:002.0[facility] NpwrwppEBYKKZERIM6687-90-10 06:24:002.1[facility] IgbovzmMXKHAWGCPQ4166-54-72 06:24:000.8[facility] [place] KYIXDTLCHD5282-13-66 06:24:000.8[facility] SnyrzzkPJOCUGHVDO1005-67-63 06:24:005.4 [facility] WcyvuylMRNZEMSUFT5945-54-21 06:24:0024.5[facility] HermannHEMATOLOGY 2018-10-10 06:24:0063.8[facility] XwovxcqLBPDTETQLF7847-44-92 06:24:008.9[facility] HwgkewwCOZMQUCDTY1650-93-14 06:24:23773Fujfcime UydolzpEYPKWUHRBB4849-92-32 06:24:008.2[facility] NlrrareYXISDDFGPB2717-73-47 06:24:0012.3[facility] [place] ANHRCYYBPX9998-47-17 06:24:004.13[facility] JbgqzwnDGZHFXGLIG5956-11-59 06:24:00 8.4[facility] PpuawuzDQIALWQEJX2465-90-89 06:24:0088.9[facility] HermannHEMATOLOGY 2018-10-10 06:24:00 Test Item Value Reference Range Interpretation Comments MCH (test code = MCH) 29.9 pg 27.0-31.0 [facility] IvommavKDDMEJPCOO4864-42-40 06:24:0036.7[facility] HermannHEMATOLOGY 2018-10-10 06:24:0013.6[facility] FlocxntNTBSSALATE5684-33-66 06:24:0033.6[facility] HermannPARATHYROID QUOVSSH0777-07-51 06:24:001.14[facility] HermannPARATHYROID HXWEZOZ1766-39-06 06:24:001.15[facility] HermannCHEM YWGBC1927-05-84 07:49:003.2 [facility] HermannCHEM FMSGG3537-26-44 07:49:001.9[facility] HermannCHEM PANEL 2018-10-09 07:49:0081[facility] HermannCHEM VNDQP0959-25-54 07:49:0010.9[facility] HermannCHEM AUFTY8437-80-29 07:49:008.5[facility] HermannCHEM QYQBI5997-20-20 07:49:003.9[facility] HermannCHEM THJUG8453-85-92 07:49:66166Acnxawwv HermannCHEM MUXCO3890-44-04 07:49:10424Wxtuurvp HermannCHEM IICUH5665-57-48 07:49:000.96 [facility] HermannCHEM XRWCX0019-05-97 07:49:0017[facility] HermannCHEM PANEL 2018-10-09 07:49:76747Kszynsny HermannCHEM MBUYO1281-71-88 07:49:0024[facility] FjacuweZFVGKJMYDY8146-30-35 07:49:0086.1[facility] UakmozvKNSKZXZBSH1396-46-76 07:49:000.4[facility] FcekcsrONZHJZIXUP9434-09-71 07:49:0012.7[facility] CBNPYJJRAO1509-34-88 07:49:006.3[facility] PoisshjLCLQWZMFBD4803-82-25 07:49:007.2 [facility] HhramchWIHQBKDUWD7610-95-13 07:49:000.9[facility] HermannHEMATOLOGY 2018-10-09 07:49:000.1[facility] NzyqktnMIRHPREJSE1984-28-77 07:49:001.1[facility] FwyigxePGLJXTPYSM8068-54-82 07:49:008.3[facility] LbayvqjYGNLFNOVZL5956-48-17 07:49:0033.3[facility] UgqzjasCVJBHGBAES5278-45-18 07:49:0013.5[facility] CNTWQRXDTO4665-96-63 07:49:76723Hnwddrif WvaipicQPMLYZXBTP5142-36-31 07:49:00 12.8[facility] OdbbbxoHXKWZZEYFA8788-15-66 07:49:0038.4[facility] 2018-10-09 07:49:0088.1[facility] PenfstxBVETKDQNBM7703-01-54 07:49:00 Test Item Value Reference Range Interpretation Comments MCH (test code = MCH) 29.4 pg 27.0-31.0 [facility] IpnbdujHGOMNBVCKI6557-02-51 07:49:0014.7[facility]Y 2018-10-09 07:49:004.36[facility]annPARATHYROID YEGOJSK3328-12-95 07:49:00 1.15[facility]annPARATHYROID TRJJVHQ6617-15-84 07:49:001.16[facility] CARDIAC GZFMKMK8081-07-40 18:27:00<0.02[facility] STOOL 2018-10-08 15:59:00Negative *NA*(10/08/18 9:59 AM)[facility] 2018-10-08 15:59:00Negative (10/08/18 9:59 AM)[facility] 2018-10-08 15:59:00Negative *NA*(10/08/18 9:59 AM)[facility] 2018-10-08 15:59:00 Test Item Value Reference Range Interpretation Comments UA Spec Grav (test code = UA Spec 1.010 1 Grav) [facility] JOCVP3397[facility]56 15:59:00 Test Item Value Reference Range Interpretation Comments UA pH (test code = UA pH) 6.0 1 5.0-8.0 [facility] FAOTR3480-19-16 15:59:00Yellow *NA*(10/08/18 9:59 AM) [facility] JZQRR3937-42-02 15:59:00Clear (10/08/18 9:59 AM)[facility] NOFWA1125-93-47 15:59:00Negative (10/08/18 9:59 AM)[facility] NCBNO0560-69-86 15:59:00Negative (10/08/18 9:59 AM)[facility] AZAUI4161-93-76 15:59:00Small *ABN*(10/08/18 9:59 AM)[facility] NQZTS0159-30-15 15:59:00Negative (10/08/18 9:59 AM)[facility] ILDXA4556-02-81 15:59:000.2[facility] GupatarSTIEVSDWLJ3770-91-94 15:21:00 Test Item Value Reference Range Interpretation Comments PTT (test code = PTT) 36.5 s 22.9-35.8 [facility]M1220[facility] 15:21:00 Test Item Value Reference Range Interpretation Comments PT (test code = PT) 13.3 s 12.0-14.7 [facility]AtfpnntAYQAOVAKXZ6565-29-74 15:21:00 Test Item Value Reference Range Interpretation Comments INR (test code = INR) 1.03 1 0.85-1.17 [facility]OVUJJVXGN1341-90-64 15:21:00 Test Item Value Reference Range Interpretation Comments Split Point Rapid (test code = Split 0.6 min Point Rapid) [facility] HospitalDtpyvnhBTVTEZLPFI2165-98-35 15:21:00 Test Item Value Reference Range Interpretation Comments R-time Rapid (test code = R-time 0.7 min 0.4-0.7 Rapid) [facility] HospitalZlsjbhwZMBDJSXVQX2547-26-76 15:21:00 Test Item Value Reference Range Interpretation Comments ACT (TEG) Rapid (test code = ACT (TEG) 113 s 86-118 Rapid) [facility] TlvwruaBEQZIFVMQW9303-49-60 15:21:0015.0[facility] 2018-10-08 15:21:00 Test Item Value Reference Range Interpretation Comments K-time Rapid (test code = K-time 0.8 min 0.6-2.3 Rapid) [facility] [id number] 15:21:000.3[facility] 2018-10-08 15:21:00 Test Item Value Reference Range Interpretation Comments Angle Rapid (test code = Angle 79 degrees 64-80 Rapid) [facility] [id number] 15:21:00 Test Item Value Reference Range Interpretation Comments Max Amplitude Rapid (test code = Max 75 mm 52-71 Amplitude Rapid) [facility] [id number] 15:20:00Negative (10/08/18 9:20 AM) [facility]CARD[facility] [id number] 15:18:00<0.02[facility]annCHEM [id number] 15:18:003.9[facility] HermannCHEM [id number] 15:18:001.9 [facility]ann[facility] [id number] 15:18:000.8[facility]annHEMATOLOGY 2018-10-08 15:18:000.1[facility] [id number] 15:18:000.1[facility] [id number] 15:18:001.8[facility]
--- NOTE | 2020-02-24 17:20 | RAD REPORT ---
EXAM DESCRIPTION: RAD - Lumbar Spine 3 Views - 02/24/2020 5:14 pm CLINICAL HISTORY: PAIN Radiculopathy COMPARISON: Lumbar Spine 3 Views dated 08/09/2016 FINDINGS: Vertebral body heights appear maintained. No compression fracture noted. Mild disc thinnin g with small endplate osteophytes seen lower lumbar spine. No spondylolysis or spondylolisthesis. Tra nsitional lower lumbar level is present. IMPRESSION: No acute lumbar finding. Mild lower lumbar degenerative spondylosis.
[2020-02-24 17:41] LABS: Urine Blood 2+ (NEG); Urine Glucose NEGATIVE (NEG); Urine Protein NEGATIVE (NEG); Urine Specific Gravity 1.025 (1.005-1.030); Urine pH 5.5 (5.0-7.0)
[2020-02-24 18:17] LABS: Urine Bacteria >50 /HPF (<20)
[2020-02-24 18:18] LABS: Urine Culture Reflex Order REFLEXED; Urine Mucus 2+ /HPF (NONE SEEN)
--- NOTE | 2020-02-24 18:25 | EDPHYS ---
Physician Documentation [facility] Name: Joanna Lim Age: 50 yrs Sex: Female : 1970 Arrival Date: 02/24/2020 Time: 15:53 Bed 17 Private MD: GAGANDEEP Physician Steven Meehan HPI: 02/23 16:30 This 50 yrs old Black Female presents to ER via Ambulatory with complaints of Back Pain.cp 16:30 The patient presents with pain that is chronic, with no known mechanism of injury. The cp symptoms are located in the low back area and mid back area. Onset: The symptoms/episode began/occurred low back pain started 4 months ago, mid back pain started yesterday. The pain does not radiate. Associated signs and symptoms: Pertinent positives: urinary frequency, Pertinent negatives: abdominal pain, constipation, fever, incontinence, numbness, urinary retention, weakness. The problem was sustained from unknown cause. 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 - Social history:: Smoking status: Patient denies any tobacco usage or history of. ROS: 16:35 Constitutional: Negative for body aches, chills, fever, poor PO intake. cp 16:35 Eyes: Negative for injury, pain, redness, and discharge. cp 16:35 Neck: Negative for pain with movement, pain at rest, stiffness. 16:35 Cardiovascular: Negative for chest pain, palpitations. 16:35 Respiratory: Negative for cough, shortness of breath, wheezing. 16:35 Abdomen/GI: Negative for abdominal pain, nausea, vomiting, and diarrhea, constipation, bowel incontinence. 16:35 Back: Positive for pain at rest, pain with movement, of the low back area and mid back area. 16:35 : Positive for urinary frequency, Negative for burning with urination, bladder incontinence. 16:35 MS/extremity: Negative for pain, paresthesias. 16:35 Skin: Negative for rash. 16:35 Neuro: Negative for altered mental status, headache, numbness, tingling, saddle anesthesia. 16:35 All other systems are negative. Exam: 16:45 Constitutional: The patient appears in no acute distress, alert, awake, non-toxic, well cp developed, well nourished. 16:45 Head/Face: Normocephalic, atraumatic. cp 16:45 Eyes: Periorbital structures: appear normal, Conjunctiva: normal, no exudate, no injection, Sclera: no appreciated abnormality, Lids and lashes: appear normal, bilaterally. 16:45 ENT: External ear(s): are unremarkable, Nose: is normal, Mouth: Lips: moist, Oral mucosa: moist, Posterior pharynx: Airway: no evidence of obstruction, patent. 16:45 Chest/axilla: Inspection: normal. 16:45 Cardiovascular: Rate: normal. 16:45 Respiratory: the patient does not display signs of respiratory distress, Respirations: normal, no use of accessory muscles, no retractions, labored breathing, is not present. 16:45 Abdomen/GI: Exam negative for discomfort, distension, guarding, Inspection: abdomen appears normal. 16:45 Back: pain, of the low back area and mid back area, ROM is painful, with flexion, vertebral tenderness, is not appreciated, Straight leg raises: of both lower extremities does not illicit pain. 16:45 Neuro: Motor: moves all fours, strength is normal, Sensation: is normal, Deep tendon reflexes are 2+ (normal) in the right patellar, right Achilles, left patellar and left Achilles. Vital Signs: 16:31 BP 154 / 97; Pulse 76; Resp 18; Temp 97.8; Pulse Ox 98% on R/A; Weight 95.25 kg; Height ph 5 ft. 9 in. (175.26 cm); 18:30 BP 150 / 118; Pulse 82; Resp 18; Pulse Ox 99% on R/A; vc 16:31 Body Mass Index 31.01 (95.25 kg, 175.26 cm) ph MDM: 16:18 Patient medically screened. iva 16:45 Differential diagnosis: Cholelithiasis chronic back pain, Pyelonephritis cp Ureterolithiasis UTI. 18:22 Data reviewed: vital signs, nurses notes, lab test result(s), radiologic studies, plain cp films, and as a result, I will discharge patient. Counseling: I had a detailed discussion with the patient and/or guardian regarding: the historical points, exam findings, and any diagnostic results supporting the discharge/admit diagnosis, lab results, radiology results, the need for outpatient follow up, a family practitioner. 02/23 17:15 Order name: Urine Microscopic Only; Complete Time: 18:20 cp 02/23 18:20 Interpretation: Normal except: UWBC 5-10; URBC 5-10; UBACT >50; SQEPI 10-20. 02/23 17:17 Order name: Urine Dipstick--Ancillary (enter results); Complete Time: 17:46 mt 02/23 17:46 Interpretation: Normal except: UKET 1+; UBLD 2+. 02/23 16:26 Order name: XRAY Lumbar Spine (3 Views); Complete Time: 17:21 02/23 17:21 Interpretation: Report reviewed. 02/23 17:17 Order name: Urine --Ancillary (enter results); Complete Time: 17:46 mt 02/23 18:19 Order name: Urine Culture EDSC 02/23 16:25 Order name: Urine Dipstick-Ancillary (obtain specimen); Complete Time: 17:16 02/23 16:25 Order name: Urine Test (obtain specimen); Complete Time: 17:16 cp Administered Medications: 18:58 Drug: TORadol 30 mg Route: IM; Site: right deltoid; vc 18:58 Drug: Flexeril 10 mg Route: PO; vc Disposition: 02/24 08:13 Co-signature as Attending Physician, Steven LOPEZ I agree with the assessment and iva plan of care. Disposition: 02/24/20 18:24 Discharged to Home. Impression: Low back pain. - Condition is Stable. - Discharge Instructions: Back Pain, Adult, Heat Therapy, Back Exercises. - Prescriptions for Naprosyn 500 mg Oral Tablet - take 1 tablet by ORAL route 2 times per day take with food; 20 tablet. Cyclobenzaprine 10 mg Oral Tablet - take 1 tablet by ORAL route every 8 hours As needed no driving while taking medication; 20 tablet. Tramadol 50 mg Oral Tablet - take 1 tablet by ORAL route every 8 hours as needed; 12 tablet. Bactrim DS 800- 160 mg Oral Tablet - take 1 tablet by ORAL route every 12 hours for 5 days; 10 tablet. Lidoderm 5 % Topical adhesive patch,medicated - apply 1 patch by TRANSDERMAL route once daily; 1 box. - Medication Reconciliation Form, Thank You Letter, Antibiotic Education, Prescription Opioid Use form. - Follow up: Private Physician; When: 2 - 3 days; Reason: Recheck today's complaints. - Problem is new. - Symptoms are unchanged. Signatures: Dispatcher [employer] EDSteven Arambula MD MD cha Hall, Patricia, RN RN Steven Evans PA PA cp Katy Blanco RN RN vc Corrections: (The following items were deleted from the chart) 02/23 18:58 18:24 02/24/2020 18:24 Discharged to Home. Impression: Low back pain. Condition is vc Stable. Forms are Medication Reconciliation Form, Thank You Letter, Antibiotic Education, Prescription Opioid Use. Follow up: Private Physician; When: 2 - 3 days; Reason: Recheck today's complaints. Problem is new. Symptoms are unchanged. cp
--- NOTE | 2020-02-24 18:25 | ER ---
Nurse's Notes [facility] Name: Joanna Lim Age: 50 yrs Sex: Female : 1970 Arrival Date: 02/24/2020 Time: 15:53 Bed 17 Private MD: Diagnosis: Low back pain Presentation: 02/23 16:31 Chief complaint: Patient states: Mid back pain x 1 day, frequent urination, low back ph pain x approx 4 months, denies fever, N/V/D. Coronavirus screen: Patient denies shortness of breath or difficulty breathing. Patient denies measured and/or subjective temperature greater than 100.4F prior to today's visit. Patient denies travel on a cruise ship or to a country the [facility] currently lists as an affected area. Patient denies contact with known and/or suspected case of COVID-19. Proceed with normal triage. Ebola Screen: No symptoms or risks identified at this time. Initial Sepsis Screen: Does the patient meet any 2 criteria? No. Patient's initial sepsis screen is negative. Does the patient have a suspected source of infection? No. Patient's initial sepsis screen is negative. Risk Assessment: Do you want to hurt yourself or someone else? Patient reports no desire to harm self or others. Onset of symptoms was February 24, 2020. 16:31 Method Of Arrival: Ambulatory 16:31 Acuity: JAYSHREE 4 ph Triage Assessment: 17:00 General: Appears in no apparent distress. uncomfortable, Behavior is calm, cooperative, vc appropriate for age. Pain: Complains of pain in mid back area and low back area Pain does not radiate. Musculoskeletal: Circulation, motion, and sensation intact. Range of motion: intact in all extremities. 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 - Social history:: Smoking status: Patient denies any tobacco usage or history of. Screenin:00 Abuse screen: Denies threats or abuse. Nutritional screening: No deficits noted. vc Tuberculosis screening: No symptoms or risk factors identified. Fall Risk None identified. Assessment: 17:00 General: Appears in no apparent distress. uncomfortable, Behavior is calm, cooperative, vc appropriate for age. Pain: Complains of pain in mid back area and low back area Pain does not radiate. Pain currently is 10 out of 10 on a pain scale. Quality of pain is described as sharp, stabbing. Neuro: Level of Consciousness is awake, alert, obeys commands, Oriented to person, place, time, situation, Appropriate for age. Cardiovascular: Capillary refill < 3 seconds Patient's skin is warm and dry. Respiratory: Airway is patent Respiratory effort is even, unlabored, Respiratory pattern is regular, symmetrical. GI: No signs and/or symptoms were reported involving the gastrointestinal system. : Reports urinary frequency. Derm: No signs and/or symptoms reported regarding the dermatologic system. 18:00 Reassessment: Patient appears in no apparent distress at this time. Patient and/or vc family updated on plan of care and expected duration. Pain level reassessed. Patient is alert, oriented x 3, equal unlabored respirations, skin warm/dry/pink. 18:48 Reassessment: Patient appears in no apparent distress at this time. Patient and/or vc family updated on plan of care and expected duration. Pain level reassessed. Patient is alert, oriented x 3, equal unlabored respirations, skin warm/dry/pink. Vital Signs: 16:31 BP 154 / 97; Pulse 76; Resp 18; Temp 97.8; Pulse Ox 98% on R/A; Weight 95.25 kg; Height ph 5 ft. 9 in. (175.26 cm); 18:30 BP 150 / 118; Pulse 82; Resp 18; Pulse Ox 99% on R/A; vc 16:31 Body Mass Index 31.01 (95.25 kg, 175.26 cm) ph ED Course: 15:53 Patient arrived in ED. fj1 16:15 Steven Yan PA is PHCP. cp 16:15 Steven Meehan MD is Attending Physician. cp 16:15 Katy Blanco, JULIENNE is Primary Nurse. vc 16:32 Triage completed. ph 16:33 Arm band placed on Patient placed in an exam room, on a stretcher. ph 17:00 Patient has correct armband on for positive identification. Bed in low position. Call vc light in reach. 17:14 XRAY Lumbar Spine (3 Views) In Process Unspecified. EDMS 18:55 No provider procedures requiring assistance completed. IV discontinued, intact, vc bleeding controlled, No redness/swelling at site. Pressure dressing applied. Administered Medications: 18:58 Drug: TORadol 30 mg Route: IM; Site: right deltoid; vc 18:58 Drug: Flexeril 10 mg Route: PO; vc Outcome: 18:24 Discharge ordered by MD. cp 18:55 Discharged to home ambulatory. vc 18:55 Condition: good 18:55 Discharge instructions given to patient, Instructed on discharge instructions, follow up and referral plans. medication usage, Demonstrated understanding of instructions, follow-up care, medications, Prescriptions given X 4. 18:58 Patient left the ED. vc Signatures: Dispatcher [employer] Toyin Sifuentes, RN RN Steven Evans PA PA cp Calcote, Vanessa RN RN Teto Lala fj1
[2020-02-24] MEDS ORDERED: KETOROLAC 30 MG/ML INJ ONE (19:03)
[2020-02-24] MEDS ORDERED: CYCLOBENZAPRINE 10 MG TAB ONE (19:03)
[2020-02-24 19:30] VITALS: TEMP 97.8
[2020-02-24 19:31] VITALS: BP 150/118; O2SAT 99
== END 2020-02-24 18:58 | disposition home or self-care (01) ==
LOC: ER 15:47
DX: M54.5 Low back pain (principal); E07.9 Disorder of thyroid, unspecified; Z88.0 Allergy status to penicillin
CPT/HCPCS: 72100; 81003; 81015; 81025; 87086; 87088; 96372; 99283

== ENCOUNTER 2020-05-30 09:43 | Emergency (ER) | payer OTHER ==
--- OUTSIDE RECORDS SUMMARY | 2020-05-30 09:46 | XMS REPORT | Continuity of Care Document ---
:1970 Author Organization [employer] Care Team Providers Name Role Phone [employer] Unavailable Un available Problems Problem Status Onset Classification Date Comments Sourc e Date Reported CHRONIC SDH Active [place] [address] [facility] NON SUBACUTE Active [facility] TRAUMATIC [address] [place] [address] SUBDURAL Center HEMATOMA Simple obesity Active Problem [...] 2019 Medica l Tablet tab, 0 Refill(s) [place] Albuterol 0.833 3 mL, NEB, RQ4H, Active [place] MG/ML / PRN Wheezing, 0 2019 Medical Ipratropium Refill(s) Center [place] 0.167 MG/ML Inhalant Solution Acetaminophen 100.4 F, 0 Active [place] as 325 MG Oral Refill(s) 2019 Medical Tablet Center Bisacodyl Notes: (Same As: Inactive [place] Dulcolax, 2019 Medical Bisco-Lax) Center Tramadol Notes: Not to Inactive [facility] exceed 2019 Medical 400mg/day. (Same Center As: Ultram) heparin Notes: porcine No Longer [facility] s heparin Active 2019 Medical [place] remove patch 1 patch, Route: No Longer 03/05/ M H [place] TOP, Bedtime, Active 2019 Medical Drug form: Center ERFILM, Start date: 10/09/18 21:00:00 COMMISSIONS ANALYST, Duration: 30 day, Stop date: 11/07/18 21:00:00 CDT Robaxin Notes: (Same No Longer [facility] as:Robaxin) Active 2019 Medical Center Lyrica Notes: (Same as: [place]er [place] Lyrica) Active 2019 Medical Center Miralax Notes: Dissolve No Longer [place] in 8 oz of water Active 2019 Medical or juice. (Same Center as: Miralax) Lidocaine 0.05 1 patch, Route: No Longer [place] MG/MG TOP, Daily, Drug Active 2019 Medical Transdermal form: FILM, [place] Patch Start date: 10/09/18 9:00:00 COMMISSIONS ANALYST, Duration: 30 day, Stop date: 11/07/18 9:00:00 CDT Tramadol Notes: Not to [place]er [place] exceed Active 2019 Medical 400mg/day. (Same Center As: Ultra) Rock Notes: (Same No Longer [facility] as:Keppra) Active 2019 Medical Center Saline Flush Notes: (Same as: No Longer [facility] 0.9% BD Posiflush) Active 2019 [facility] Center Levetiracetam Notes: Inactive [place] MEDICATION WASTE 2019 Medical Product Center Size: 500 mg Product Wasted: ___ mg sennosides, GROUP HOME Notes: (Same as: No Longer 10/09 [place] Senokot) Active 2019 [facility] Center Docusate 100 mg, 1 cap, No Longer [place] Route: PO, Drug Active 2019 Medical form: CAP, Q12H, Center Dosing Weight 95.455, kg, Start date: 10/08/18 21:00:00 COMMISSIONS ANALYST, Duration: 30 day, Stop date: 11/07/18 9:00:00 CDT Vancomycin 2001 mg: infuse No Longer [facility] over 2.5 hours Active 2019 Medical For adult Center patients only: Round to nearest 250 mg per Medical Staff approval MEDICATION WASTE Product Size: 1000 mg Product Wasted: ___ mg Artificial Tears 2 drp, Route: No Longer [place] BOTH EYES, BID, Active 2019 Medical Drug form: SOLN, [place] Start date: 10/08/18 17:00:00 COMMISSIONS ANALYST, Duration: 30 day, Stop date: 11/07/18 9:00:00 CDT Vancomycin 1 gm, Route: IV, Inactive [place] Q8H, Dosing 2019 Medical Weight 95.455, Center kg, Start date: 10/08/18 16:00:00 COMMISSIONS ANALYST, Duration: 1 day, Stop date: 10/09/18 8:00:00 COMMISSIONS ANALYST, ABX Indication: Surgical Prophylaxis Glucagon 1 mg, Route: IM, No Longer [place] Drug form: Active 2019 Medical PDR/INJ, PRN, Center Dosing Weight 95.455, kg, PRN Blood Glucose Results, Start date: 10/08/18 14:19:00 COMMISSIONS ANALYST, Duration: 30 day, Stop date: 11/07/18 15:18:00 CDT Dextrose 50% 25 gm, 50 mL, No Longer [place] Syringe Route: IVP, Drug Active 2019 Medical Form: INJ, Center Dosing Weight 95.455, kg, PRN, PRN Blood Glucose Results, Start date: 10/08/18 14:19:00 COMMISSIONS ANALYST, Duration: 30 day, Stop date: 11/07/18 15:18:00 CDT Insulin regular 60 units) No Longer [place] WASTE: F/P - Active 2019 Medical Black; E - Center Municipal Trash Bin Stable for 28 days at room temperature Expires in days from Da te Potassium Notes: (Same as: No Longer [place] Chloride KCL) Infuse Active 2019 Medical over 2 hours. Center Calcium Notes: WASTE: No Longer [facility] Gluconate F/P - Sink; E - Active 2019 Medica l Municipal Trash Center Bin Magnesium Oxide Notes: (Same as: No Longer 10/08 [place] Mag-Ox 400) Active 2019 [facility] Magnesium oxide Center [id number] elemental magnesium Dose=____mg magnesium oxide (___mg elemental magnesium) Calcium Notes: (Same As: [place] Longer [place] Carbonate 500 MG Tums) Calcium Active 2019 edical Chewable Tablet Carbonate 500 mg Center = 200 mg elemental calcium Dose = mg calcium carbonate ( mg elemental calcium) potassium Notes: (Same as: No Longer [place] phosphate K Phosphate.) Active 2019 Medical Do not infuse Center phosphorous concurrently in the same line as TPN or IVF that contains calcium. For double lumen central lines, phosphorous may be infused in a separate lumen from TPN. 1 mMol phoshate has 1.47 mEq potassium Infuse over 4 hours potassium Notes: (Same as: No Longer [place] phosphate-sodium Phos-NaK) Each Active 2019 Medical phosphate 250 1.5 gm pkt has [address] mg-280 mg-160 mg 250mg oral powder for phosphorous. Mix reconstitution w/2.5oz water and stir. Magnesium Notes: WASTE: No Longer [place] Sulfate F/P - Sink; E - Active 2019 [facility] Trash [place] Bin sodium phosphate Notes: Infuse No Longer [place] over 4 hour. Do Active 2019 Medical not infuse Center phosphorous concurrently in the same line as TPN or IVF that contains calcium. For double lumen central lines, phosphorous may be infused in a separate lumen from TPN. Hydralazine Notes: (Same as: No Longer 10/08/ [facility] Apresoline) Push Active 2019 Medical over 5 minutes Center Labetalol 10 mg, 2 mL, [place] Longer [place] Route: IVP, Drug Active 2019 Medical form: INJ, Q4H, Center Dosing Weight 95.455, kg, PRN Hypertension, Start date: 10/08/18 14:13:00 COMMISSIONS ANALYST, Duration: 30 day, Stop date: 11/07/18 14:12:00 CDT sugammadex Route: IV, Drug Inactive [place] (ANES) form: SOLN, 2019 Medical ONCE, Stop date: Center 10/08/18 12:30:00 COMMISSIONS ANALYST Hydralazine 10 mg, Route: Inactive [place] IVP, Q20Min, 2019 Medical Dosing Weight Center 95.455, kg, PRN Elevated BP, Start date: 10/08/18 12:18:00 COMMISSIONS ANALYST, Duration: 2 doses or times, Stop date: Limited # of times Labetalol 10 mg, 2 mL, Inactive [place] Route: IVP, Drug 2019 Medical form: INJ, Center Q5Min, Dosing Weight 95.455, kg, PRN Elevated BP, Start date: 10/08/18 12:18:00 COMMISSIONS ANALYST, Duration: 5 doses or times, Stop date: 10/09/18 0:00:00 COMMISSIONS ANALYST Acetaminophen 1,000 mg, Route: Inactive [place] PO, Drug form: 2019 Medical TAB, ONCE, Center Dosing Weight 95.455, kg, PRN Pain Score 1-3, Start date: 10/08/18 12:18:00 COMMISSIONS ANALYST Promethazine 6.25 mg, Route: Inactive 10/08[facility] [place] IVPB, ONCE, 2019 Medical Dosing Weight Center 95.455, kg, PRN Nausea & Vomiting, Start date: 10/08/18 12:18:00 COMMISSIONS ANALYST Ondansetron 4 mg, Route: Inactive 10/08[facility] [place] as IVP, ONCE, 2019 Medical Dosing Weight Center 95.455, kg, PRN Nausea & Vomiting, Start date: 10/08/18 12:18:00 COMMISSIONS ANALYST Dexamethasone 4 mg, Route: Inactive 10/08[facility] [place] IVP, ONCE, 2019 Medical Dosing Weight Center 95.455, kg, PRN Nausea & Vomiting, Start date: 10/08/18 12:18:00 COMMISSIONS ANALYST Naloxone 0.4 mg, Route: Inactive [place] IVP, Q2MIN, 2019 Medical Dosing Weight Center 95.455, kg, PRN Narcotic Reversal, Start date: 10/08/18 12:18:00 COMMISSIONS ANALYST, Duration: 8 doses or times, Stop date: Limited # of times Flumazenil 0.2 mg, Route: Inactive [place]/08[facility] [place] IVP, PRN, Dosing 2019 Medical Weight 95.455, Center kg, PRN Benzodiazepine Reversal, Initial dose, Start date: 10/08/18 12:18:00 COMMISSIONS ANALYST, Duration: 30 day, Stop date: 11/07/18 13:17:00 CDT Hydromorphone 0.5 mg, Route: Inactive 10/08[facility] [place] IVP, Q5Min, 2019 Medical Dosing Weight Center 95.455, kg, PRN Pain Score 7-10, Start date: 10/08/18 12:18:00 COMMISSIONS ANALYST, Duration: 4 doses or times, Stop date: Limited # of times sugammadex Notes: (Same as: No Longer [place] Bridion) Active 2019 [facility] famotidine Route: IV, Drug Inactive [place] (ANES) form: INJ, ONCE, 2018 Medical Stop date: [place] 10/08/18 11:59:00 COMMISSIONS ANALYST metoclopramide Route: IV, Drug Inactive 10/08/ [place] (ANES) form: INJ, ONCE, 2018 Medical Stop date: [place] 10/08/18 11:59:00 COMMISSIONS ANALYST ondansetron Route: IV, Drug Inactive 10/08/ [place] (ANES) form: INJ, ONCE, 2018 Medical Stop date: [place] 10/08/18 11:59:00 COMMISSIONS ANALYST phenylephrine Route: IV, Drug Inactive 10/08/ M H [place] (ANES) form: INJ, ONCE, 2018 Medical Stop date: [place] 10/08/18 11:57:00 COMMISSIONS ANALYST lidocaine (ANES) Route: IV, Drug Inactive 10/08/ [place] form: INJ, ONCE, 2018 Medical Stop date: [place] 10/08/18 11:51:00 COMMISSIONS ANALYST dexamethasone Route: IV, Drug Inactive 10/08/ H [place] (ANES) form: INJ, ONCE, 2018 Medical Stop date: [place] 10/08/18 11:51:00 COMMISSIONS ANALYST propofol (ANES) Route: IV, Drug Inactive 10/08/ [place] form: INJ, ONCE, 2018 Medical Stop date: [place] 10/08/18 11:51:00 COMMISSIONS ANALYST rocuronium Route: IV, Drug Inactive 10/08/ [place] (ANES) form: INJ, ONCE, 2018 Medical Stop date: [place] 10/08/18 11:51:00 COMMISSIONS ANALYST levETIRAcetam Route: IV, Drug Inactive 10/08/ H [place] (ANES) form: INJ, ONCE, 2018 Medical Stop date: [place] 10/08/18 11:51:00 COMMISSIONS ANALYST fentaNYL (ANES) Route: IV, Drug Inactive 10/08/ [place] form: INJ, ONCE, 2018 Medical Stop date: [place] 10/08/18 11:51:00 COMMISSIONS ANALYST propofol (ANES) Route: IV, Drug Inactive 10/08/ [place] 10 mg form: INJ, Start 2018 Medical date: 10/08/18 [place] 10:30:00 COMMISSIONS ANALYST, Stop date: 10/08/18 11:30:00 COMMISSIONS ANALYST remifentanil Route: IV, Drug Inactive [place] (ANES) 1 mg form: INJ, Start 2019 Med ical date: 10/08/18 Center 10:30:00 COMMISSIONS ANALYST, Stop date: 10/08/18 11:30:00 COMMISSIONS ANALYST Sodium Chloride Route: IV, Drug Inactive [place] 0.9% IV (ANES) form: INJ, Start 2019 Medical 235 mL + date: 10/08/18 Center vancomycin 10:25:00 COMMISSIONS ANALYST, (ANES) 1500 mg Stop date: 10/08/18 11:25:00 COMMISSIONS ANALYST Isolyte S PH 7.4 Route: IV, Total Inactive 10/08 [place] (ANES) 1000 mL Volume: 1,000, 2019 Me dical Start date: Center 10/08/18 10:09:00 COMMISSIONS ANALYST, Stop date: 10/08/18 11:09:00 COMMISSIONS ANALYST Saline Flush Notes: (Same as: No Longer [place] 0.9% BD Posiflush) Active 2019 Medical Center Albuterol 0.833 3 ml, Route: No Longer [place] MG/ML / NEB, Drug Form: Active 2019 Medical Ipratropium SOLN, Dosing Center [place] 0.167 Weight 95.455, MG/ML Inhalant kg, RQ4H, PRN Solution Wheezing, Start date: 10/08/18 9:57:00 COMMISSIONS ANALYST, Duration: 30 day, Stop date: 11/07/18 9:56:00 CDT Labetalol 10 mg, 2 mL, Inactive [place] Route: IVP, Drug 2019 Medical form: INJ, Center Q15Min, Dosing Weight 95.455, kg, PRN Hypertension, Start date: 10/08/18 9:57:00 COMMISSIONS ANALYST, Duration: 30 day, Stop date: 11/07/18 10:56:00 CDT Hydralazine 20 mg, 1 mL, Inactive [place] as Route: IVP, Drug 2019 Medical form: INJ, Q4H, Center Dosing Weight 95.455, kg, PRN Hypertension, Start date: 10/08/18 9:57:00 COMMISSIONS ANALYST, Duration: 30 day, Stop date: 11/07/18 9:56:00 CDT Sodium Chloride 1,000 mL, Rate: Inactive [place] 0.9% IV 1,000 mL 50 ml/hr, Infuse 2019 Medical over: 20 hr, Center Route: IV, Dosing Weight 95.455 kg, Total Volume: 1,000, Start date: 10/08/18 9:57:00 COMMISSIONS ANALYST, Duration: 30 day, Stop date: 11/07/18 9:56:00 CDT, 2.16, m2 Levetiracetam Notes: Same as No Longer 10/08/ [facility] Keppra Mix with Active 2019 Medical 100 mL NS, LR or Center D5W MEDICATION WASTE Product Size: 500 mg Product Wasted: ___ mg Acetaminophen 100.4 F, Start No Longer [facility] date: 10/08/18 Active 2019 Medical 9:57:00 COMMISSIONS ANALYST, Center Duration: 30 day, Stop date: 11/07/18 9:56:00 CDT Ondansetron Notes: No Longer [place] MEDICATION WASTE Active 2019 Medical Product Center Size: 4 mg Product Wasted: ___ mg Bisacodyl 10 mg, 1 supp, [place] Longer [place] Route: MO, Drug Active 2019 Medical form: SUPP, Center Daily, Dosing Weight 95.455, kg, PRN Constipation, Start date: 10/08/18 9:57:00 COMMISSIONS ANALYST, Duration: 30 day, Stop date: 11/07/18 9:56:00 CDT Zofran 4 mg, Route: Inactive [facility] IVP, Drug form: 2019 Medical INJ, ONCE, Center Dosing Weight 95.455, kg, Priority: STAT, Start date: 10/08/18 9:09:00 COMMISSIONS ANALYST, Stop date: 10/08/18 9:09:00 COMMISSIONS ANALYST Morphine 4 mg, Route: Inactive [facility] IVP, ONCE, 2019 Medical Dosing Weight Center 95.455, kg, Priority: STAT, Start date: 10/08/18 9:09:00 COMMISSIONS ANALYST, Stop date: 10/08/18 9:09:00 COMMISSIONS ANALYST Sodium Chloride 1,000 mL, Infuse Inactive [facility] 0.9% (Bolus) IV Over: 1 hr, 2019 [facility] [place] Route: IV, ONCE, Center Priority: STAT, Dosing Weight 95.455 kg, Start date: 10/08/18 9:09:00 COMMISSIONS ANALYST, Stop date: 10/08/18 9:09:00 COMMISSIONS ANALYST Allergies, Adverse Reactions, Alerts Substance Category Reaction Severity Reaction Status Date Comments S ource type Reported penicillin Assertion Drug Active Mis reta allergy Neuro Immunizations Immunization Date Given Site Status Last Updated Comments Mohini rce influenza virus 10/11/2018 Not Given Mis reta vaccine, Neuro,[facility] inactivated [facility], HEATH Gonzalez, HEATH Ngo and Results Order [...] Glucose Lvl 74 70 - 99 10/11 [facility] CHEM PANEL Creatinine 0.93 0.50 - 10/11 [facility] Lvl 1.40 [facility] CHEM PANEL Sodium Lvl 140 135 - 145 10/11 [facility] CHEM PANEL BUN 18 7 - 22 10/11 [facility] CHEM PANEL Calcium Lvl 8.9 8.5 - 10.5 10/11 [place] as [facility] CHEM PANEL Potassium Lvl 3.9 3.5 - 5.1 10/11 [place] [facility] CHEM PANEL Chloride Lvl 106 95 - 109 10/11 [place] [facility] CHEM PANEL CO2 26 24 - 32 10/11 [facility]2018 [facility] CHEM PANEL AGAP 11.9 10.0 - 10/11 [place] 20.0 [facility] HEMATOLOGY WBC 9.0 3.7 - 10.4 03/ [facility] HEMATOLOGY Platelet 319 133 - 450 03/ [facility] HEMATOLOGY MPV 8.7 7.4 - 10.4 03 [facility]2018 [facility] HEMATOLOGY RDW 13.6 11.5 - 03 [facility] 14.5 /2018 [facility] HEMATOLOGY MCHC 33.2 32.0 - 03 [facility] 36.0 [facility] HEMATOLOGY MCH 29.6 27.0 - 03 [facility] 31.0 2019 [facility] HEMATOLOGY Hct 38.3 36.0 - 03 [facility] 48.0 2019 [facility] HEMATOLOGY RBC 4.30 4.20 - 03 [facility] 5.40 [facility] HEMATOLOGY MCV 89.1 80.0 - 10/11 [facility] 98.0 [facility] HEMATOLOGY Hgb 12.7 12.0 - 03/ [facility] 16.0 [facility] HEMATOLOGY Eosinophils 2.9 0.0 - 4.0 03 [facility] HEMATOLOGY Lymphocytes 28.7 20.0 - 03 [facility] 40.0 [facility] HEMATOLOGY Monocytes 9.5 2.0 - 12.0 03/ [facility]2018 [facility] HEMATOLOGY Segs 58.7 45.0 - 03/ [facility] 75.0 2019 [facility] HEMATOLOGY Lymphocytes # 2.6 1.0 - 5.5 03 [facility] HEMATOLOGY Eosinophils # 0.3 0.0 - 0.[address] HEMATOLOGY Basophils 0.2 0.0 - 1.0 03 [facility]2018 [facility] HEMATOLOGY Neutrophils # 5.3 1.5 - 8.1 03 [facility]2018 [facility] HEMATOLOGY Monocytes # 0.9 0.0 - 0.8 03 [facility]2018 [facility] CHEM PANEL Magnesium Lvl 2.0 1.8 - 2.4 10/[address] CHEM PANEL eGFR 68 03/ [facility] Comment: The Medical eGFR is Center calculated [...] Potassium Lvl 3.9 3.5 - 5.[address] CHEM PANEL Chloride Lvl 112 95 - [address] CHEM PANEL Sodium Lvl 144 135 - [address] CHEM PANEL Creatinine 1.00 0.50 - 03 [facility] Lvl 1.40 [facility] CHEM PANEL Glucose Lvl 90 70 - 99 03/ [address] CHEM PANEL BUN 21 7 - [address] CHEM PANEL CO2 28 24 - [address] CHEM PANEL Calcium Lvl 8.6 8.5 - 10.[address] CHEM PANEL AGAP 7.9 10.0 - 03/05 [facility] 20.0 [facility] CHEM PANEL Phosphorus 3.9 2.5 - 4.[address] HEMATOLOGY Basophils # 0.1 0.0 - 0.[address] HEMATOLOGY Eosinophils # 0.2 0.0 - 0.5 03/ [address] HEMATOLOGY Eosinophils 2.0 0.0 - 4.[address] HEMATOLOGY Lymphocytes # 2.1 1.0 - 5.[address] HEMATOLOGY Monocytes # 0.8 0.0 - 0.[address] HEMATOLOGY Basophils 0.8 0.0 - 1.[address] HEMATOLOGY Neutrophils # 5.4 1.5 - 8.1 03/ [facility] HEMATOLOGY Lymphocytes 24.5 20.0 - 03/05 [place] 40.0 /2018 [facility] HEMATOLOGY Segs 63.8 45.0 - 03/05 [place] 75.0 [facility] HEMATOLOGY Monocytes 8.9 2.0 - 12.0 03/ 2018 [facility] HEMATOLOGY Platelet 262 133 - 450 03 [facility]2018 [facility] HEMATOLOGY MPV 8.2 7.4 - 10.4 10/10 [facility] HEMATOLOGY Hgb 12.3 12.0 - 03/05 [place] 16.0 [facility] HEMATOLOGY RBC 4.13 4.20 - 0305 [place] 5.40 /2018 [facility] HEMATOLOGY WBC 8.4 3.7 - 10.4 10/10 [facility] HEMATOLOGY MCV 88.9 80.0 - 10/10 [facility] 98.0 [facility] HEMATOLOGY MCH 29.9 27.0 - 10/10 [place] 31.0 [facility] HEMATOLOGY Hct 36.7 36.0 - 0305 [place] 48.0 [facility] HEMATOLOGY RDW 13.6 11.5 - 03/05 [place] 14.5 [facility] HEMATOLOGY MCHC 33.6 32.0 - 03/05 [place] 36.0 2019 [facility] PARATHYROID Ca Norm WB 1.14 1.05 - 0305 [facility] PROFILE 1.25 [facility] PARATHYROID Ca Ion WB 1.15 1.05 - 10/10 [facility] PROFILE 1. [facility] CHEM PANEL Phosphorus 3.2 2.5 - 4.5 10/09 [facility] CHEM PANEL Magnesium Lvl 1.9 1.8 - 2.4 10/09 [facility] CHEM PANEL eGFR 81 10/09 [facility] Comment: The Medical eGFR is Center calculated [...] CHEM PANEL AGAP 10.9 10.0 - 03/ [facility] 20.0 [facility] CHEM PANEL Calcium Lvl 8.5 8.5 - 10.5 10/09 [facility] CHEM PANEL Potassium Lvl 3.9 3.5 - 5.1 03 [facility] CHEM PANEL Sodium Lvl 142 135 - [address] CHEM PANEL Chloride Lvl 111 95 - 109 10/09 [facility] CHEM PANEL Creatinine 0.96 0.50 - 03 [facility] Lvl 1.40 [facility] CHEM PANEL BUN 17 7 - [address] CHEM PANEL Glucose Lvl 126 70 - [address] CHEM PANEL CO2 24 24 - 32 03/ [address] HEMATOLOGY Segs 86.1 45.0 - 03 [facility] 75.0 [facility] HEMATOLOGY Basophils 0.4 0.0 - 1.0 03/ [address] HEMATOLOGY Neutrophils # 12.7 1.5 - 8.1 03 [facility] HEMATOLOGY Lymphocytes 6.3 20.0 - 03/ 40.0 [facility] HEMATOLOGY Monocytes 7.2 2.0 - 12.0 03/ [address] HEMATOLOGY Lymphocytes # 0.9 1.0 - 5.5 03 [facility]2018 [facility] HEMATOLOGY Basophils # 0.1 0.0 - 0.2 03 [facility]2018 [facility] HEMATOLOGY Monocytes # 1.1 0.0 - 0.8 03 [facility] HEMATOLOGY MPV 8.3 7.4 - 10.4 03/ [facility]2018 [facility] HEMATOLOGY MCHC 33.3 32.0 - 03/ [facility] 36.0 [facility] HEMATOLOGY RDW 13.5 11.5 - 10/09 [facility] 14.5 /2018 [facility] HEMATOLOGY Platelet 330 133 - 450 03 [facility] HEMATOLOGY Hgb 12.8 12.0 - 10/09 [place] 16.0 [facility] HEMATOLOGY Hct 38.4 36.0 - 10/09 [facility] 48.0 [facility] HEMATOLOGY MCV 88.1 80.0 - 10/09 [facility] 98.0 [facility] HEMATOLOGY MCH 29.4 27.0 - 10/09 [facility] 31.0 [facility] HEMATOLOGY WBC 14.7 3.7 - 10.4 10/09 [facility] HEMATOLOGY RBC 4.36 4.20 - /04 [place] 5.40 [facility] PARATHYROID Ca Ion WB 1.15 1.05 - 10/09 [facility] PROFILE 1.25 [facility] PARATHYROID Ca Norm WB 1.16 1.05 - 10/09 [facility] PROFILE 1. [facility] CARDIAC Troponin-I <0.02 0.00 - 10/08 [facility] ENZYMES 0.40 [facility] URINE AND UA Bacteria Occasional None Seen 10/[place] STOOL /HPF /HPF /2018 [facility] URINE AND UA RBC 0-2 /HPF 0 - 2 10/08 [facility] STOOL /2018 [facility] URINE AND UA WBC 0-2 /HPF None Seen 10/08 [facility] STOOL /HPF /2019 [facility] URINE AND UA Sq Epi Moderate Few /LPF 10/08 [facility] STOOL /LPF /2018 [facility] URINE AND UA Bili Negative Negative 10/08 [facility] STOOL *NA* /2018 [facility] (10/08/18 9:59 AM) [place] URINE AND UA Glucose Negative Negative 10/08 [facility] (10/08/18 9:59 AM) /2018 [facility] URINE AND UA Ketones Negative Negative 10/08 [facility] STOOL *NA* [facility] (10/08/18 9:59 AM) [place] URINE AND UA Spec Grav 1.010 <=1.030 10/08 [facility] /[address] [place] [address] URINE AND UA pH 6.0 5.0 - 8.0 10/08 [facility] STOOL /[address] [place] [address] URINE AND UA Color Yellow Yellow 10/08 [facility] STOOL *NA* /2018 [facility] (10/08/18 9:59 AM) [place] URINE AND UA Turbidity Clear Clear 10/08 [facility] STOOL (10/08/18 9:59 AM) /2018 [facility] Center URINE AND UA Nitrite Negative Negative 10/08 [facility] STOOL (10/08/18 9:59 AM) /2018 [facility] Center URINE AND UA Protein Negative Negative 10/08 [facility] STOOL (10/08/18 9:59 AM) [facility] URINE AND UA Blood Small Negative 10/08 [facility] STOOL *ABN* /2018 [facility] (10/08/18 9:59 AM) Center URINE AND UA Leuk Est Negative Negative 10/08 [facility] STOOL (10/08/18 9:59 AM) [facility] URINE AND UA 0.2 0.1 - 1.0 10/08 [facility] STOOL Urobilinogen /2018 [facility] HEMATOLOGY PTT 36.5 22.9 - 10/08 [place] 35.8 [facility] HEMATOLOGY PT 13.3 12.0 - 10/08 [place] 14.7 [facility] HEMATOLOGY INR 1.03 0.85 - 10/08 [place] 1.17 [facility] HEMATOLOGY [place] 0.6 10/08 [place] Rapid [facility] HEMATOLOGY R-time Rapid 0.7 0.4 - 0.7 10/08 [place] [facility] HEMATOLOGY ACT (TEG) 113 86 - 118 10/08 [place] Rapid [facility] HEMATOLOGY G-value [place] 15.0 5.0 - 11.6 10/08 [place] [facility] HEMATOLOGY K-time Rapid 0.8 0.6 - 2.3 10/08 [place] [facility] HEMATOLOGY Estimated % 0.3 0.0 - 7[place]5 [place] [facility] HEMATOLOGY Angle Rapid 79 64 - 80 10/08 [facility] HEMATOLOGY Max Amplitude 75 52 - 71 10[place] [facility] BLOOD BANK ABO/Rh O POS 10/08 [place] RESULTS [facility] BLOOD BANK Antibody Scrn Negative 10/08 [place] RESULTS (10/08/18 9:20 AM) [facility] CARDIAC Troponin-I <0.02 0.00 - 10/08 [facility] ENZYMES 0.40 [facility] CHEM PANEL Phosphorus 3.9 2.5 - 4.5 10/08 [facility] CHEM PANEL Magnesium Lvl 1.9 1.8 - 2.4 10/08 [facility] xa [facility] CHEM PANEL Lactic Acid 0.8 0.5 - 2.2 10/08 [facility] s Lvl [facility] HEMATOLOGY Basophils # 0.1 0.0 - 0.2 10/08 [facility] HEMATOLOGY Eosinophils # 0.1 0.0 - 0.5 10/08 [facility] HEMATOLOGY Eosinophils 1.8 0.0 - 4.0 10/08 [facility] s [facility] Pathology Reports No Data Provided for This Section Diagnostic Reports Report Value Date Source Brain wo contrast CT EXAM: CT BRAIN WITHOUT CONTRAST [facility] [place] DATE: 12/07/2018 10:20 CDT INDICATION: - pt [...] SL: IRIS Brain wo contrast CT 10/08/2018 [facility] dical EXAMINATION: CT head without contrast [...] Date Comments Source Heart Rate 83 10/11/2018 [facility] Temperature Oral (F) 97.9 F 10/11/2018 [facility] Respitory Rate 18 10/11/2018 [facility] Systolic (mm Hg) 129 10/11/2018 [facility] dical Center Diastolic (mm Hg) 86 10/11/2018 [facility] Systolic (mm Hg) 138 10/11/2018 [facility] dical Center Diastolic (mm Hg) 90 10/11/2018 [facility] Respitory Rate 18 10/11/2018 [facility] Heart Rate 82 10/11/2018 [facility] Temperature Oral (F) 99.1 F 10/11/2018 [facility] Temperature Oral (F) 97.9 F 10/11/2018 [facility] Heart Rate 84 10/11/2018 [facility] Respitory Rate 18 10/11/2018 [facility] Systolic (mm Hg) 127 10/11/2018 [facility] dical Center Diastolic (mm Hg) 85 10/11/2018 [facility] Weight 95.456 10/08/2018 [facility] Weight 95.455 10/08/2018 [facility] Height 172.72 cm 10/08/2018 [facility] BMI Calculated 32 10/08/2018 [facility] Encounters Location Location Encounter Encounter Reason Attending ADM DC Stat us Source Details Type Number For Provider Date Date Visit [facility] [id number] Steven 10/08 10/11 [facility] /2018 [facility] MNA Phone [id number] 10/17 10/19 Misc her Neurosurger Message [facility] [id number] Edis 10/24 10/25 [facility] [id number] TRAUMA 10/26 [facility] [place] [facility] [id number] Edis 10/26 10/27 [facility] Neurosurger Leroy [facility] Phone [id number] 10/27 10/29 Misc her Neurosurger Message /2018 [facility] Phone [id number] 10/31 11/02 Misc her Neurosurger Message /2018 [facility] [id number] TRAUMA 12/07 [facility] [place] [facility] [id number] Edis 12/07 12/08 [facility] [place] [facility] Outpatient [id number] Edis 12/07 12/08 [facility] Leroy ro y [facility] Phone [id number] 12/08 12/10 Misc her Neurosurger Message Neur o y [facility] Phone [id number] 12/21 12/23 Misc her Neurosurger Message Neur o y [facility] Phone [id number] 04/04 04/06 Misc her Neurosurger Message Neur [...] entered on: 10/08/18 Social History TypeResponse 10/08/2018 [facility] Smoking Status Never smoker; Previous treatment: None; Exposure to Tobacco Smoke None; Cigarette Smoking Last 365 Days No; Reg Smoking Cessation Counseling No entered on: 10/08/18 Family History No Data Provided for This Section Advance Directives No Data Provided for This Section Functional Status No Data Provided for This Section
--- OUTSIDE RECORDS SUMMARY | 2020-05-30 09:48 | XMS REPORT | Continuity of Care Document ---
:1970 Author Organization [facility] t Address [address] [place] [address] Care Team Providers Name Role Phone Gilma Pettit MD Attending Clinician VISIT, CLINIC Attending Clinician Unavailable Linda Ken Attending Clinician Xiomy Cazares II Attending Clinician Brandyn Duvall Jr Admitting Clinician Problems Condition Condition Condition Status Onset Resolution Last Treating Co mments Source Name Details Category Date Date Treatment Clinician Date CHRONIC Diagnosis Active 2019-02-01 Me moria SDH 3-03 10:05:00 l CHRONIC 00:00: [place] SDH 00 Active 10/08/2018 [facility] NON Diagnosis Active 2018-10-08 Mem oria SUBACUTE 3-03 10:22:00 l TRAUMATIC NON 00:00: [place] SUBDURAL SUBACUTE 00 HEMATOMA TRAUMATIC SUBDURAL HEMATOMA Active 10/08/2018 [facility] 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[facility] - lumbar lumbar Memoria region region l without without Outpati myelopathy myelopathy en t or or Clinics radiculopa radiculopa thy thy Screening Screening Diagnosis Active [facility] for colon for colon [facility] - cancer cancer [facility] Clin[facility] Family Family Diagnosis Active [facility] history of history of [place] kes - colon colon Memoria cancer in cancer in l mother mother Outpati ent Clinics Muscle Muscle Diagnosis Active [facility] spasm spasm [facility] Low TSH Low TSH Diagnosis Active [facility] Simple Problem Active 2019-04-08 Memor ia obesity 00:24:36 l (disorder) Simple Herm ree obesity (disorder) Active Problem 04/08/2019 Ariel Neuro, HEATH Gonzalez, OPIEdmundo Palumbo NONTRAUMAT Diagnosis Active 2019-02-01 Memoria IC CHRONIC 10:05:00 l SUBDURAL [place] HEMORRHAGE NONTRAUMAT IC CHRONIC SUBDURAL HEMORRHAGE Active [facility] Allergies, Adverse Reactions, Alerts Allergy Allergy Status Severity Reaction(s) Onset Inactive Treating Comm ents Source Name Type Date Date Clinician Penicill Adverse Active hives [facility] amine Reaction [facility] ent Clinics penicill penicill Active [facility]ori a in in [facility] Social History Smoking Status Start Date Stop Date Source Social History [facility] Medications Ordered Filled Start Stop Current Ordering Indication Dosage Frequency Signature Comments Components Source Medication Medication Date Date Medication? Clinician (SIG) Name Name methocarbam Yes 500 mg = 1 Memoria ol 500 mg 3-06 tab, PO, l oral tablet 15:24: Q8H, X 5 He rm 00 day, # 15 tab, 0 Refill(s) Levetiracet Yes 500 mg = 1 Memoria am 500 MG 3-06 tab, PO, l Oral Tablet 15:24: Q12H, # 6 H erm tab, 0 Refill(s) Albuterol Yes 3 mL, NEB, Me moria 0.833 MG/ML 3-06 RQ4H, PRN l / 15:24: Wheezing, Carlos Ipratropium 00 0 [place] Refill(s) 0.167 MG/ML Inhalant Solution Acetaminoph Yes 100.4 F, M emoria en 325 MG 3-06 0 l Oral Tablet 15:24: Refill(s) H erm Bisacodyl No Notes: Memori a 3-05 (Same As: l 20:47: Dulcolax, Bisco-Lax) Tramadol No Notes: Not Mem oria 3-05 to exceed l 19:56: 400mg/day. 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 (Same as: Miralax) Lidocaine No 1 patch, Edison anny 0.05 MG/MG 3-04 Route: l Transdermal 15:00: TOP, Narinder n Patch 00 Daily, Drug form: FILM, Start date: 10/09/18 9:00:00 SKIN [employer]ING TEACHER, Duration: 30 day, Stop date: 11/07/18 9:00:00 CDT Tramadol No Notes: Not Mem oria 3-04 to exceed l 04:24: 400mg/day. Carlos 00 (Same As: Ultram) Keppra No Notes: Memoria 3-04 (Same l 03:00: as:Keppra) Saline No Notes: Memoria Flush 0.9% 3-04 (Same as: l 03:00: BD Posiflush) Levetiracet No Notes: Memoria am 3-04 MEDICATION l 03:00: WASTE Product Size: 500 mg Product Wasted: ___ mg sennosides, 20190 No Notes: Edison anny ASSISTED 3-04 (Same as: l 03:00: Senokot) Docusate 0 No 100 mg, 1 Edison anny 3-04 cap, l 03:00: Route: PO, [place] 00 Drug form: CAP, Q12H, Dosing Weight 95.455, kg, Start date: 10/08/18 21:00:00 SKIN [employer]ING TEACHER, Duration: 30 day, Stop date: 11/07/18 9:00:00 CDT Vancomycin 2019-0 No 2001 mg: Me moria 3-04 infuse l 00:00: over 2.5 00 hours For adult patients only: Round to nearest 250 mg per Medical Staff approval MEDICATION WASTE Product Size: 1000 mg Product Wasted: ___ mg Artificial 2019-0 No 2 drp, Memor ia Tears 3-03 Route: l 23:00: BOTH EYES, BID, Drug form: SOLN, Start date: 10/08/18 17:00:00 SKIN DIVING TEACHER, Duration: 30 day, Stop date: 11/07/18 9:00:00 CDT Vancomycin 2018-0 No 1 gm, Memori a 3- Route: IV, l 22:00: Q8H, Dosing Weight 95.455, kg, Start date: 10/08/18 16:00:00 SKIN DIVING TEACHER, Duration: 1 day, Stop date: 10/09/18 8:00:00 SKIN DIVING TEACHER, ABX Indication : Surgical Prophylaxi s Glucagon 2018-0 No 1 mg, Memoria 3-03 Route: IM, l 20:19: Drug form: PDR/INJ, PRN, Dosing Weight 95.455, kg, PRN Blood Glucose Results, Start date: 10/08/18 14:19:00 SKIN DIVING TEACHER, Duration: 30 day, Stop date: 11/07/18 15:18:00 CDT Dextrose 2019-0 No 25 gm, 50 Edison anny 50% Syringe 3-03 mL, Route: l 20:19: IVP, Drug Form: INJ, Dosing Weight 95.455, kg, PRN, PRN Blood Glucose Results, Start date: 10/08/18 14:19:00 SKIN DIVING TEACHER, Duration: 30 day, Stop date: 11/07/18 15:18:00 CDT Insulin 2019-0 No 60 Memoria regular 3-03 units) l 20:19: WASTE: F/P - Black; E - Municipal Trash Bin Stable for 28 days at room temperatur e Expires in days from ____Date Potassium 2019-0 No Notes: Memori a Chloride 3-03 (Same as: l 20:18: KCL) Carlos 00 Infuse over 2 hours. Calcium No Notes: Memoria Gluconate - WASTE: F/P l 20:18: - Sink; E Carlos - Municipal Trash Bin Magnesium No Notes: Memori a Oxide 3-03 (Same as: l 20:18: Mag-Ox Carlos 00 400) Magnesium oxide 790ru=312t g elemental magnesium Dose=____m g magnesium oxide (___mg elemental magnesium) Calcium No Notes: Memoria Carbonate 3-03 (Same As: l 500 MG 20:18: Tums) Carlos Chewable 00 Calcium Tablet Carbonate 500 mg = 200 mg elemental calcium Dose = mg calcium carbonate ( mg elemental calcium) potassium No Notes: Memori a phosphate -03 (Same as: l 20:18: K [place] 00 [...] - (Same as: l odium 20:18: Phos-NaK) phosphate 00 Each 1.5 250 mg-280 gm pkt has mg-160 mg 250mg oral powder phosphorou for s. Mix reconstitut w/2.5oz ion water and stir. Magnesium No Notes: Memori a Sulfate 10-08 WASTE: F/P l 20:18: - Sink; E - Municipal Trash Bin sodium No Notes: Memoria phosphate 3-03 Infuse l 20:18: over 4 Carlos 00 hour. Do not infuse phosphorou s concurrent ly in the same line as TPN or IVF that contains calcium. For double lumen central lines, phosphorou s may be infused in a separate lumen from TPN. 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 DIVING TEACHER, Duration: 30 day, Stop date: 11/07/18 14:12:00 CDT sugammadex 2019-0 No Route: IV, Norma quinonesria (ANES) 10-08 Drug form: l 18:30: SOLN, ONCE, Stop date: 10/08/18 12:30:00 SKIN [employer]ING TEACHER Hydralazine 2019-0 No 10 mg, Edison anny 10-08 Route: l 18:18: IVP, [place] 00 Q20Min, Dosing Weight 95.455, kg, PRN Elevated BP, Start date: 10/08/18 12:18:00 SKIN DIVING TEACHER, Duration: 2 doses or times, Stop date: Limited # of times Labetalol 2019-0 No 10 mg, 2 Edison anny -03 mL, Route: l 18:18: IVP, Drug form: INJ, Q5Min, Dosing Weight 95.455, kg, PRN Elevated BP, Start date: 10/08/18 12:18:00 SKIN DIVING TEACHER, Duration: 5 doses or times, Stop date: 10/09/18 0:00:00 SKIN DIVING TEACHER Acetaminoph 2019-0 No 1,000 mg, Norma emoria en 10-08 Route: PO, l 18:18: Drug form: [place] 00 TAB, ONCE, Dosing Weight 95.455, kg, PRN Pain Score 1-3, Start date: 10/08/18 12:18:00 SKIN DIVING TEACHER Promethazin 2019-0 No 6.25 mg, Me moria e 10-08 Route: l 18:18: IVPB, ONCE, Dosing Weight 95.455, kg, PRN Nausea & Vomiting, Start date: 10/08/18 12:18:00 SKIN DIVING TEACHER Ondansetron 2019-0 No 4 mg, Memor ia 10-08 Route: l 18:18: IVP, ONCE, Dosing Weight 95.455, kg, PRN Nausea & Vomiting, Start date: 10/08/18 12:18:00 SKIN DIVING TEACHER Dexamethaso 2019-0 No 4 mg, Memor ia ne 10-08 Route: l 18:18: IVP, ONCE, Dosing Weight 95.455, kg, PRN Nausea & Vomiting, Start date: 10/08/18 12:18:00 SKIN DIVING TEACHER Naloxone 2018-0 No 0.4 mg, Memori a 10-08 Route: l 18:18: IVP, [place] 00 Q2MIN, Dosing Weight 95.455, kg, PRN Narcotic Reversal, Start date: 10/08/18 12:18:00 SKIN DIVING TEACHER, Duration: 8 doses or times, Stop date: Limited # of times Flumazenil 2018-0 No 0.2 mg, Edison anny 10-08 Route: l 18:18: IVP, PRN, Dosing Weight 95.455, kg, PRN Benzodiaze pine Reversal, Initial dose, Start date: 10/08/18 12:18:00 SKIN DIVING TEACHER, Duration: 30 day, Stop date: 11/07/18 13:17:00 CDT Hydromorpho 0 No 0.5 mg, Mem oria ne 10-08 Route: l 18:18: IVP, [place] 00 Q5Min, Dosing Weight 95.455, kg, PRN Pain Score 7-10, Start date: 10/08/18 12:18:00 SKIN DIVING TEACHER, Duration: 4 doses or times, Stop date: Limited # of times sugammadex No Notes: Memor ia 10-08 (Same as: l 18:00: [place]) famotidine No Route: IV, M emoria (ANES) 10-08 Drug form: l 17:59: INJ, ONCE, Stop date: 10/08/18 11:59:00 SKIN DIVING TEACHER metoclopram No Route: IV, Memoria anais (ANES) 10-08 Drug form: l 17:59: INJ, ONCE, Stop date: 10/08/18 11:59:00 SKIN DIVING TEACHER ondansetron No Route: IV, Memoria (ANES) 10-08 Drug form: l 17:59: INJ, ONCE, Stop date: 10/08/18 11:59:00 SKIN DIVING TEACHER phenylephri No Route: IV, Memoria ne (ANES) 10-08 Drug form: l 17:57: INJ, ONCE, Stop date: 10/08/18 11:57:00 SKIN DIVING TEACHER lidocaine 2018-0 No Route: IV, Me moria (ANES) 10-08 Drug form: l 17:51: INJ, ONCE, Stop date: 10/08/18 11:51:00 SKIN DIVING TEACHER dexamethaso 2018-0 No Route: IV, Memoria ne (ANES) 10-08 Drug form: l 17:51: INJ, ONCE, Stop date: 10/08/18 11:51:00 SKIN DIVING TEACHER propofol 2018-0 No Route: IV, Mem oria (ANES) 10-08 Drug form: l 17:51: INJ, ONCE, Stop date: 10/08/18 11:51:00 SKIN DIVING TEACHER rocuronium No Route: IV, M emoria (ANES) 10-08 Drug form: l 17:51: INJ, ONCE, Stop date: 10/08/18 11:51:00 SKIN DIVING TEACHER levETIRAcet No Route: IV, Memoria am (ANES) 10-08 Drug form: l 17:51: INJ, ONCE, Stop date: 10/08/18 11:51:00 SKIN DIVING TEACHER fentaNYL 2018-0 No Route: IV, Mem oria (ANES) 10-08 Drug form: l 17:51: INJ, ONCE, Stop date: 10/08/18 11:51:00 SKIN DIVING TEACHER propofol 2019-0 No Route: IV, Mem oria (ANES) 10 10-08 Drug form: l mg 16:30: INJ, Start Carlos 00 date: 10/08/18 10:30:00 SKIN DIVING TEACHER, Stop date: 10/08/18 11:30:00 SKIN DIVING TEACHER remifentani 2018-0 No Route: IV, Memoria l (ANES) 1 10-08 Drug form: l mg 16:30: INJ, Start Carlos 00 date: 10/08/18 10:30:00 SKIN DIVING TEACHER, Stop date: 10/08/18 11:30:00 SKIN DIVING TEACHER Sodium 2019-0 No Route: IV, Memor ia Chloride 10-08 Drug form: l 0.9% IV 16:25: INJ, Start Herm ree (ANES) 235 00 date: mL + 10/08/18 vancomycin 10:25:00 (ANES) 1500 SKIN DIVING TEACHER, Stop mg date: 10/08/18 11:25:00 SKIN DIVING TEACHER Isolyte S 2019-0 No Route: IV, Me moria PH 7.4 10-08 Total l (ANES) 1000 16:09: Volume: Her salas mL 00 1,000, Start date: 10/08/18 10:09:00 SKIN DIVING TEACHER, Stop date: 10/08/18 11:09:00 SKIN DIVING TEACHER Saline 2018-0 No Notes: Memoria Flush 0.9% 10-08 (Same as: l 15:57: BD [place] 00 Posiflush) Albuterol 2019-0 No 3 ml, Memoria 0.833 MG/ML 10-08 Route: l / 15:57: NEB, Drug Carlos Ipratropium 00 Form: [place] SOLN, 0.167 MG/ML Dosing Inhalant Weight Solution 95.455, kg, RQ4H, PRN Wheezing, Start date: 10/08/18 9:57:00 SKIN DIVING TEACHER, Duration: 30 day, Stop date: 11/07/18 9:56:00 CDT Labetalol 2018-0 No 10 mg, 2 Edison anny 3-03 mL, Route: l 15:57: IVP, Drug [place] 00 form: INJ, Q15Min, Dosing Weight 95.455, kg, PRN Hypertensi on, Start date: 10/08/18 9:57:00 SKIN DIVING TEACHER, Duration: 30 day, Stop date: 11/07/18 10:56:00 CDT Hydralazine 2018-0 No 20 mg, 1 Me moria 3-03 mL, Route: l 15:57: IVP, Drug [place] 00 form: INJ, Q4H, Dosing Weight 95.455, kg, PRN Hypertensi on, Start date: 10/08/18 9:57:00 SKIN DIVING TEACHER, Duration: 30 day, Stop date: 11/07/18 9:56:00 CDT Sodium 2019-0 No 1,000 mL, Memori a Chloride 10-08 Rate: 50 l 0.9% IV 15:57: ml/hr, [place] 1,000 mL 00 Infuse over: 20 hr, Route: IV, Dosing Weight 95.455 kg, Total Volume: 1,000, Start date: 10/08/18 9:57:00 SKIN DIVING TEACHER, Duration: 30 day, Stop date: 11/07/18 9:56:00 CDT, 2.16, m2 Levetiracet 2019-0 No Notes: Edison anny am - Same as l 15:57: Keppra [place] 00 Mix with 100 mL NS, LR or D5W MEDICATION WASTE Product Size: 500 mg Product Wasted: ___ mg Acetaminoph 2019-0 No 100.4 F, M emoria en 303 Start l 15:57: date: [place] 00 10/08/18 9:57:00 SKIN DIVING TEACHER, Duration: 30 day, Stop date: 11/07/18 9:56:00 CDT Ondansetron 2019-0 No Notes: Memoria 3- MEDICATION l 15:57: WASTE Product Size: 4 mg Product Wasted: ___ mg Bisacodyl 2018-0 No 10 mg, 1 Edison anny - supp, l 15:57: Route: IN, Carlos 00 Drug form: SUPP, Daily, Dosing Weight 95.455, kg, PRN Constipati on, Start date: 10/08/18 9:57:00 SKIN DIVING TEACHER, Duration: 30 day, Stop date: 11/07/18 9:56:00 CDT Zofran 2018-0 No 4 mg, Memoria 3- Route: l 15:09: IVP, Drug form: INJ, ONCE, Dosing Weight 95.455, kg, Priority: STAT, Start date: 10/08/18 9:09:00 SKIN DIVING TEACHER, Stop date: 10/08/18 9:09:00 SKIN DIVING TEACHER Morphine 2018-0 No 4 mg, Memoria 3- Route: l 15:09: IVP, ONCE, Dosing Weight 95.455, kg, Priority: STAT, Start date: 10/08/18 9:09:00 SKIN DIVING TEACHER, Stop date: 10/08/18 9:09:00 SKIN DIVING TEACHER Sodium 2019-0 No 1,000 mL, Memori a Chloride 10-08 Infuse l 0.9% 15:09: Over: 1 [place] (Bolus) IV 00 hr, Route: IV, ONCE, Priority: STAT, Dosing Weight 95.455 kg, Start date: 10/08/18 9:09:00 SKIN DIVING TEACHER, Stop date: 10/08/18 9:09:00 SKIN DIVING TEACHER Sulfamethox Sulfamethox Yes Parminder not [facility] azole-TMP azole-TMP Velez defined L ukes - DS [facility] Tramadol Tramadol Yes Parminder [address] HCl HCl Velez [facility] Naproxen Naproxen Yes Parminder [address] Vele[place] with food [facility] - or milk as [facility]oria needed l Outpati ent Clinics Vital Signs Vital Name Observation Time Observation Value Comments Source Heart Rate 2018-10-11 17:26:00 [facility] [place] Temperature Oral (F) 2018-10-11 17:26:00 97.9 F [facility] [place] Respitory Rate 2018-10-11 17:26:00 Memori al [place] Systolic (mm Hg) 2018-10-11 17:26:00 Edison rial [place] Diastolic (mm Hg) 2018-10-11 17:26:00 Mem orial [place] Systolic (mm Hg) 2018-10-11 13:44:00 Edison rial [place] Diastolic (mm Hg) 2018-10-11 13:44:00 Mem orial [place] Respitory Rate 2018-10-11 13:44:00 Memori al [place] Heart Rate 2018-10-11 13:44:00 [facility] [place] Temperature Oral (F) 2018-10-11 13:44:00 99.1 F [facility] [place] Temperature Oral (F) 2018-10-11 10:47:00 97.9 F [facility] [place] Heart Rate 2018-10-11 10:47:00 [facility] [place] Respitory Rate 2018-10-11 10:47:00 Memori al [place] Systolic (mm Hg) 2018-10-11 10:47:00 Edison rial [place] Diastolic (mm Hg) 2018-10-11 10:47:00 Mem orial [place] Weight 2018-10-08 21:12:00 [facility] [place] Weight 2018-10-08 14:38:00 [facility] Height 2018-10-08 14:38:00 172.72 cm [facility] BMI Calculated 2018-10-08 14:38:00 Memori al [place] Procedures This patient has no known procedures. Encounters Start End Encounter Admission Attending Care Care Encounter Source Date/Time Date/Time Type Type Clinicians Facility Department ID 2018-10-08 Inpatient E [facility] [id number] [facility] 09:57:00 2020-03-26 2020-03-26 [facility] [id number] [facility] 15:00:00 15:00:00 [place] [facility]ina Goodman [facility] - [facility] Out[facility] ent Clinics 2020-03-24 2020-03-24 [facility] [id number] [facility] 08:34:00 08:34:00 [place] Georgina Goodman Luke [facility] - Drive [facility] 2020-03-18 2020-03-18 [facility] [id number] 16:45:00 16:45:00 [place] Georgina Goodman Luke s - Drive [facility] 2020-03-18 2020-03-18 [facility] [id number] [address] 15:30:00 15:30:00 [place] [facility] - [facility] Outpat[facility] Clinics 2020-03-05 2020-03-05 [facility] [id number] 10:30:00 10:30:00 [place] [facility] - [facility] Outpat[facility] ent [facility] 2020-01-25 2020-01-25 Office Pettit, [facility] [id number] 09:00:00 09:30:00 Visit [facility] [id number] [facility] [id number] [facility] [phone] [facility] 220 [facility] 2019-04-04 2019-04-05 Outpatient MHMISCHER MHMISCHER [id number] 12:21:53 23:59:59 05 2018-12-21 2018-12-22 Outpatient MHMISCHER MHMISCHER [id number] 10:05:32 23:59:59 04 2018-12-08 2018-12-09 Outpatient MHMISCHER MHMISCHER [id number] 13:27:20 23:59:59 03 2018-12-07 2018-12-07 Outpatient VISIT, MHMISCHER MHMISCHER [id number] 11:15:00 23:59:59 TRAUMA 01 CLINIC 2018-12-07 2018-12-07 Outpatient KALEN Ken [facility] [id number] 10:09:00 23:59:00 Edis Mckeon 2018-10-31 2018-11-01 Outpatient MHMISCHER MHMISCHER [id number] 12:52:00 23:59:59 2018-10-27 2018-10-28 Outpatient MHMISCHER MHMISCHER [id number] 09:49:00 23:59:59 2018-10-26 2018-10-26 Outpatient VISIT, MHMISCHER MHMISCHER [id number] 12:15:00 23:59:59 TRAUMA 00 CLINIC 2018-10-24 2018-10-24 Outpatient MICHAEL KenP OIP [id number] 08:26:00 23:59:00 Edis Linda 2018-10-17 2018-10-18 Outpatient MHMISCHER MHMISCHER [id number] 10:08:00 23:59:59 2018-10-08 2018-10-11 Outpatient Sage [facility] [id number] 08:37:00 15:18:00 Bryan W 62 Results Test Description Test Time Test Comments [...] code = MCH) 29.6 pg 27.0-31.0 [facility] AwftvusMURFOVOBAT0770-66-89 06:11:0038.3[facility]ann[facility]OLOGY 2018-10-11 06:11:004.30[facility] KvgelrbDFKWEJDLML9270-38-68 06:11:0089.1[facility] RezjtvuCSQVTQJXFA3890-67-82 06:11:0012.7[facility] HwxfgufCSKGCWXFHM6941-27-71 06:11:002.9[facility] CplyqbzNRUHDXURGS7283-06-94 06:11:0028.7[facility] [place] JWFFBSAXIK6803-07-62 06:11:009.5[facility] HqroewxUDBHXJGBYH0450-94-94 06:11:00 58.7[facility] HuxtqawCUDUCYSQXB6455-52-08 06:11:002.6[facility]annHEMATOLOGY 2018-10-11 06:11:000.3[facility] PrazgpuJIHSHMWOCF4775-15-16 06:11:000.2[facility] QdjbgqxGPHQXAMVSE8583-03-80 06:11:005.3[facility] WqvevwjEICNQYSPER9221-73-26 06:11:000.9[facility] HermannCHEM EEXSB9897-63-52 06:24:002.0[facility] HermannCHEM RKZYS4420-03-23 06:24:0068[facility] HermannCHEM GSDBH4389-49-82 06:24:003.9 [facility] HermannCHEM HPAFD8197-72-20 06:24:44636Erlnxyww HermannCHEM PANEL 2018-10-10 06:24:09922Uyjwvcev HermannCHEM BXRBZ6415-28-75 06:24:001.00[facility] HermannCHEM FTXHI6400-32-85 06:24:0090[facility] HermannCHEM KAUHV2914-22-52 06:24:0021[facility] HermannCHEM KTXXR4077-52-52 06:24:0028[facility] HermannCHEM QAPXC0181-25-29 06:24:008.6[facility] HermannCHEM KJXML6891-63-42 06:24:007.9 [facility] HermannCHEM IUSTQ4105-70-73 06:24:003.9[facility] HermannHEMATOLOGY 2018-10-10 06:24:000.1[facility] VajbgiiGSZHMYMKNW6578-60-36 06:24:000.2[facility] VecsarkPVWOQBYQOD6052-70-61 06:24:002.0[facility] KqslmbhZEIVJKBMWR5639-48-26 06:24:002.1[facility] DmlrawhYIXYEJUUMK2239-73-58 06:24:000.8[facility] [place] MZMDWSXZNG6372-49-02 06:24:000.8[facility] TfkelotVHEUUINHFG5754-76-75 06:24:005.4 [facility] UjxpmupTOCSVOPVKJ1205-70-61 06:24:0024.5[facility] HermannHEMATOLOGY 2018-10-10 06:24:0063.8[facility] EicrseqFVOVJRKIGU5260-64-08 06:24:008.9[facility] CaladkeRTGZRYUSRC8702-05-63 06:24:83901Scudmivl DfivzvvWXJDFXRHSS1256-04-52 06:24:008.2[facility] TltsknsPZOXWBWCTQ9865-31-27 06:24:0012.3[facility] [place] PLDQQPGRXN7876-86-60 06:24:004.13[facility] OwsvqftDCJIGWNXKL7690-27-53 06:24:00 8.4[facility] MdywuwqLXYSBHFRQS5047-21-20 06:24:0088.9[facility] HermannHEMATOLOGY 2018-10-10 06:24:00 Test Item Value Reference Range Interpretation Comments MCH (test code = MCH) 29.9 pg 27.0-31.0 [facility] TduxhxaNQPYLYVCQG0171-36-39 06:24:0036.7[facility] HermannHEMATOLOGY 2018-10-10 06:24:0013.6[facility] ViabgbvRLJHGHITUM5355-54-62 06:24:0033.6[facility] HermannPARATHYROID KQCFYCW0048-95-65 06:24:001.14[facility] HermannPARATHYROID UCXHRIA1568-20-30 06:24:001.15[facility] HermannCHEM SNXZO6243-92-45 07:49:003.2 [facility] HermannCHEM TYAVW6693-01-16 07:49:001.9[facility] HermannCHEM PANEL 2018-10-09 07:49:0081[facility] HermannCHEM HSYXV4659-38-46 07:49:0010.9[facility] HermannCHEM NZBET2316-68-10 07:49:008.5[facility] HermannCHEM KRVGE2621-31-99 07:49:003.9[facility] HermannCHEM LNHOM3750-60-13 07:49:56042Cpmmrurv HermannCHEM RIUXU7843-74-30 07:49:28722Movskpsx HermannCHEM QWBNO6460-43-90 07:49:000.96 [facility] HermannCHEM SBUJM3811-55-54 07:49:0017[facility] HermannCHEM PANEL 2018-10-09 07:49:00735Pgksdjph HermannCHEM VHZZB7548-78-52 07:49:0024[facility] UawankmUMEAISXVOV9864-39-31 07:49:0086.1[facility] EsztgsfCMOUEHDHBX6433-26-55 07:49:000.4[facility] CagacybRHGQVSIAQJ5063-49-56 07:49:0012.7[facility] HUBFBVGITB5527-22-19 07:49:006.3[facility] JmsepsiUOUUFFRFVS0003-58-30 07:49:007.2 [facility] WgknqbzGLPVXDTMCO9075-75-21 07:49:000.9[facility]annHEMATOLOGY 2018-10-09 07:49:000.1[facility] HxyjfgzJDGYZOPKLA9833-59-78 07:49:001.1[facility] QxzkrprXVTKWCINZL0495-50-56 07:49:008.3[facility] DgviqjdHFMDDHKBOQ3801-27-64 07:49:0033.3[facility] YupjxalCPJZARBPNU4613-62-27 07:49:0013.5[facility] IXUIAPRSNK1625-08-95 07:49:80476Pnazwoyn DvjnajnJQOOHJXCGA8043-80-88 07:49:00 12.8[facility] BfrtzkyBBQDTJBCBG6783-89-81 07:49:0038.4[facility]annHEMATOLOGY 2018-10-09 07:49:0088.1[facility] YilhgbjYGQFZKMJQD7683-92-51 07:49:00 Test Item Value Reference Range Interpretation Comments MCH (test code = MCH) 29.4 pg 27.0-31.0 [facility] VnldwsxPIHPXVICRL2924-92-75 07:49:0014.7[facility] HermannHEMATOLOGY 2018-10-09 07:49:004.36[facility] HermannPARATHYROID EUQPQOB4422-31-22 07:49:00 1.15[facility] HermannPARATHYROID ZOMQZQL9480-63-01 07:49:001.16[facility] CARDIAC XDTXSED3277-99-07 18:27:00<0.02[facility]annURINE AND STOOL 2018-10-08 15:59:00Negative *NA*(10/08/18 9:59 AM)[facility] STOOL 2018-10-08 15:59:00Negative (10/08/18 9:59 AM)[facility] STOOL 2018-10-08 15:59:00Negative *NA*(10/08/18 9:59 AM)[facility] ST[facility]OL 2018-10-08 15:59:00 Test Item Value Reference Range Interpretation Comments UA Spec Grav (test code = UA Spec 1.010 1 Grav) [facility] [id number] 15:59:00 Test Item Value Reference Range Interpretation Comments UA pH (test code = UA pH) 6.0 1 5.0-8.0 [facility] OJGFQ5477-35-35 15:59:00Yellow *NA*(10/08/18 9:59 AM) [facility] VEUOZ2171-26-25 15:59:00Clear (10/08/18 9:59 AM)[facility] DVKIU7496-72-36 15:59:00Negative (10/08/18 9:59 AM)[facility] EPIZD2153-18-60 15:59:00Negative (10/08/18 9:59 AM)[facility]ATL[facility] AND AZYIK2388-44-13 15:59:00Small *ABN*(10/08/18 9:59 AM)[facility] AND TDEMH6937-80-59 15:59:00Negative (10/08/18 9:59 AM)[facility] CampusannATLANT[facility] AND [id number] 15:59:000.2[facility] [id number] 15:21:00 Test Item Value Reference Range Interpretation Comments PTT (test code = PTT) 36.5 s 22.9-35.8 [facility]iscoSyujzydBLRJAKUARJ1239-99-07 15:21:00 Test Item Value Reference Range Interpretation Comments PT (test code = PT) 13.3 s 12.0-14.7 [facility]aultDurfpdgQDZSNSMERH1133-35-27 15:21:00 Test Item Value Reference Range Interpretation Comments INR (test code = INR) 1.03 1 0.85-1.17 [facility] [id number] 15:21:00 Test Item Value Reference Range Interpretation Comments Split Point Rapid (test code = Split 0.6 min Point Rapid) [facility] Sau[id number] 15:21:00 Test Item Value Reference Range Interpretation Comments R-time Rapid (test code = R-time 0.7 min 0.4-0.7 Rapid) [facility] [id number] 15:21:00 Test Item Value Reference Range Interpretation Comments ACT (TEG) Rapid (test code = ACT (TEG) 113 s 86-118 Rapid) [facility] Sau[id number] 15:21:0015.0[facility] 2018-10-08 15:21:00 Test Item Value Reference Range Interpretation Comments K-time Rapid (test code = K-time 0.8 min 0.6-2.3 Rapid) [facility] SaultWggjfpjQQPUFNBLOA0992-15-49 15:21:000.3[facility] 2018-10-08 15:21:00 Test Item Value Reference Range Interpretation Comments Angle Rapid (test code = Angle 79 degrees 64-80 Rapid) [facility] SaultWnxtnhzECDMOYYFQU8509-12-20 15:21:00 Test Item Value Reference Range Interpretation Comments Max Amplitude Rapid (test code = Max 75 mm 52-71 Amplitude Rapid) [facility] HermannBLOOD BANK [id number] 15:20:00Negative (10/08/18 9:20 AM) [facility]annCARDIAC [id number] 15:18:00<0.02[facility] HermannCHEM [id number] 15:18:003.9[facility] HermannCHEM [id number] 15:18:001.9 [facility]annCHEM [id number] 15:18:000.8[facility]annHEMATOLOGY 2018-10-08 15:18:000.1[facility] [id number] 15:18:000.1[facility] [id number] 15:18:001.8[facility] [place]
--- OUTSIDE RECORDS SUMMARY | 2020-05-30 09:48 | XMS REPORT ---
:1970 Author Organization eClinicalWorks Care Team Providers Name Role Phone Agustin Parminder Provider Role Unavailable Allergies, Adverse Reactions, Alerts Substance Reaction Event Type Penicillamine hives Drug Allergy Problems Problem Type Condition Code Onset Dates Condition Statu s Assessment Encounter for wellness examination Z00.00 Active in adult Problem Spondylosis of lumbar region M47.816 Active without myelopathy or radiculopathy Assessment Screening mammogram, encounter for Z12.31 Active Assessment Spondylosis of lumbar region M47.816 Active without myelopathy or radiculopathy Medications Medication Code Code Instructions Start End Status Dosage System Date Date Sulfamethoxazo NDC 0 Active not le-TMP DS defined Tramadol HCl NDC 66244141954 50 MG Orally Active 1 tablet Once a day as needed Naproxen NDC 54143193014 500 MG Orally Active 1 tab let every 12 hrs with food or milk as needed Results No Known Results Summary Purpose eClinicalWorks Submission
--- OUTSIDE RECORDS SUMMARY | 2020-05-30 09:48 | XMS REPORT ---
:1970 Author Organization eClinicalWorks Care Team Providers Name Role Phone Jose Daniel Velezh Provider Role Unavailable Allergies, Adverse Reactions, Alerts Substance Reaction Event Type Penicillamine hives Drug Allergy Problems Problem Type Condition Code Onset Dates Condition Statu s Assessment Spondylosis of lumbar region M47.816 Active without myelopathy or radiculopathy Problem Spondylosis of lumbar region M47.816 Active without myelopathy or radiculopathy Assessment Screening for colon cancer Z12.11 A ctive Assessment Family history of colon cancer in Z80.0 Active mother Assessment Muscle spasm M62.838 Active Assessment Low TSH level R79.89 Active Medications Medication Code Code Instructions Start End Status Dosage System Date Date Tramadol HCl [facility] 95032562627 50 MG Orally Active 1 tablet Once a day as needed Naproxen ND 27254168269 500 MG Orally Active 1 tab let every 12 hrs with food or milk as needed Sulfamethoxazo NDC 0 Active not le-TMP DS defined Results No Known Results Summary Purpose eClinicalWorks Submission
--- OUTSIDE RECORDS SUMMARY | 2020-05-30 09:48 | XMS REPORT ---
:1970 Author Organization eClinicalWorks Care Team Providers Name Role Phone Agustin Parminder Provider Role Unavailable Allergies No Known Allergies Problems Problem Type Condition Code Onset Dates Condition Statu s Problem Spondylosis of lumbar region M47.816 Active without myelopathy or radiculopathy Medications No Known Medications Results No Known Results Summary Purpose eClinicalWorks Submission
--- OUTSIDE RECORDS SUMMARY | 2020-05-30 09:48 | XMS REPORT ---
:1970 Author Organization eClinicalWorks Care Team Providers Name Role Phone [facility] Provider Role Unavailable Allergies, Adverse Reactions, Alerts Substance Reaction Event Type Penicillamine hives Drug Allergy Problems Problem Type Condition Code Onset Dates Condition Statu s Assessment Spondylosis of lumbar region M47.816 Active without myelopathy or radiculopathy Problem Spondylosis of lumbar region M47.816 Active without myelopathy or radiculopathy Assessment Muscle spasm M62.838 Active Medications Medication Code Code Instructions Start End Status Dosage System Date Date Sulfamethoxazo NDC 0 Active not le-TMP DS defined Tramadol HCl NDC 19532394661 50 MG Orally Active 1 tablet Once a day as needed Naproxen NDC 60838320914 500 MG Orally Active 1 tab let every 12 hrs with food or milk as needed Results No Known Results Summary Purpose eClinicalWorks Submission
[2020-05-30 10:22] LABS: Urine Blood TRACE (NEG); Urine Glucose NEGATIVE (NEG); Urine Protein NEGATIVE (NEG)
[2020-05-30] MEDS ORDERED: KETOROLAC 30 MG/ML INJ ONE (10:25)
[2020-05-30 10:35] LABS: Urine Bacteria >50 /HPF (<20); Urine Culture Reflex Order REFLEXED
--- NOTE | 2020-05-30 10:35 | ER ---
Nurse's Notes [facility] Name: Joanna Lim Age: 50 yrs Sex: Female : 1970 Arrival Date: 05/30/2020 Time: 09:47 Bed 15 Private MD: Diagnosis: Low back pain Presentation: 05/30 09:54 Chief complaint: Patient states: mid- low back pain that has been ongoing "forever". ss Coronavirus screen: Client denies travel out of the [place] in the last 14 days. Ebola Screen: Patient denies exposure to infectious person. Patient denies travel to an Ebola-affected area in the 21 days before illness onset. Initial Sepsis Screen: Does the patient meet any 2 criteria? No. Patient's initial sepsis screen is negative. Does the patient have a suspected source of infection? No. Patient's initial sepsis screen is negative. Risk Assessment: Do you want to hurt yourself or someone else? Patient reports no desire to harm self or others. Onset of symptoms is unknown. 09:54 Method Of Arrival: Ambulatory 09:54 Acuity: JAYSHREE 4 ss Triage Assessment: 10:47 General: Behavior is. 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 - Social history:: Smoking status: Patient denies any tobacco usage or history of. Screenin:00 Abuse screen: Denies threats or abuse. Denies injuries from another. Nutritional ca1 screening: No deficits noted. Tuberculosis screening: No symptoms or risk factors identified. Fall Risk None identified. Assessment: 10:00 General: Appears in no apparent distress. comfortable. Pain: Complains of pain in mid ca1 back area Pain does not radiate. Pain currently is 7 out of 10 on a pain scale. Is intermittent. Neuro: Level of Consciousness is awake, alert, obeys commands, Oriented to person, place, time, situation. : Reports urgency, urinary frequency. Derm: Skin is intact, is healthy with good turgor, Skin is pink, warm \\T\\ dry. Musculoskeletal: Capillary refill < 3 seconds, Range of motion: intact in all extremities. 10:41 Reassessment: Patient appears in no apparent distress at this time. Patient is alert, ca1 oriented x 3, equal unlabored respirations, skin warm/dry/pink. Vital Signs: 09:54 BP 146 / 86; Pulse 79; Resp 15; Temp 97.8(TE); Pulse Ox 100% on R/A; Weight 97.52 kg; Height 5 ft. 9 in. (175.26 cm); Pain 7/10; 10:41 BP 127 / 79; Pulse 77; Resp 16 S; Pulse Ox 100% on R/A; ca1 09:54 Body Mass Index 31.75 (97.52 kg, 175.26 cm) ED Course: 09:47 Patient arrived in ED. ds1 09:51 Steven Yan PA is PHCP. cp 09:51 Erick Snowden MD is Attending Physician. cp 09:55 Triage completed. ss 09:56 Nadia García RN is Primary Nurse. ca1 09:56 Arm band placed on right wrist. ss 10:00 Patient has correct armband on for positive identification. Bed in low position. Call ca1 light in reach. Side rails up X 1. Pulse ox on. NIBP on. Warm blanket given. 10:17 Urine Microscopic Only Sent. ca1 10:47 No provider procedures requiring assistance completed. Patient did not have IV access ca1 during this emergency room visit. Administered Medications: 10:15 Drug: Ketorolac 30 mg Route: IM; Site: right gluteus; ca1 10:45 Follow up: Response: No adverse reaction; Pain is decreased ca1 Outcome: 10:34 Discharge ordered by . cp 10:47 Discharged to home ambulatory. ca1 10:47 Condition: stable 10:47 Discharge instructions given to patient, Instructed on discharge instructions, follow up and referral plans. medication usage, Demonstrated understanding of instructions, follow-up care, medications, Prescriptions given X 2. 10:48 Patient left the ED. ca1 Signatures: Michelle Welsh ds1 Kina Lay RN RN Steven Yan PA PA cp Nadia García RN RN ca1
--- NOTE | 2020-05-30 10:35 | EDPHYS ---
Physician Documentation [facility] Name: Joanna Lim Age: 50 yrs Sex: Female : 1970 Arrival Date: 05/30/2020 Time: 09:47 Bed 15 Private MD: ED Physician Erick Snowden HPI: 05/30 10:10 This 50 yrs old Black Female presents to ER via Ambulatory with complaints of Lower cp Back Pain. 10:10 The patient presents with pain that is chronic, with no known mechanism of injury. The cp symptoms are located in the low back. The pain does not radiate. Onset: The symptoms/episode began/occurred "for years". Associated signs and symptoms: Pertinent positives: urinary frequency, Pertinent negatives: abdominal pain, constipation, dysuria, fever, incontinence, numbness, tingling, urinary retention, weakness. 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 - Social history:: Smoking status: Patient denies any tobacco usage or history of. ROS: 10:11 Constitutional: Negative for body aches, chills, fever. cp 10:11 Abdomen/GI: Negative for abdominal pain, bowel incontinence. 10:11 Back: Positive for pain at rest, pain with movement, of the low back area, Negative for decreased range of motion. 10:11 : Positive for urinary frequency, Negative for hematuria, flank pain, burning with urination, difficulty urinating, bladder incontinence. 10:11 Neuro: Negative for numbness, tingling, weakness. 10:11 All other systems are negative. Exam: 10:20 Constitutional: The patient appears in no acute distress, alert, awake, non-toxic, well cp developed, well nourished, obese. 10:20 Head/Face: Normocephalic, atraumatic. cp 10:20 Eyes: Periorbital structures: appear normal, Conjunctiva: normal, no exudate, no injection, Lids and lashes: appear normal, bilaterally. 10:20 Neck: ROM/movement: is normal, is supple, without pain, no range of motions limitations. 10:20 Chest/axilla: Inspection: normal. 10:20 Cardiovascular: Rate: normal. 10:20 Respiratory: the patient does not display signs of respiratory distress, Respirations: normal, no use of accessory muscles, no retractions. 10:20 Abdomen/GI: Exam negative for discomfort, distension, guarding, Inspection: abdomen appears normal. 10:20 Back: pain, that is mild, of the low back area, ROM is normal, vertebral tenderness, is not appreciated, Straight leg raises: of both lower extremities does not illicit pain. 10:20 Neuro: Motor: moves all fours, strength is normal, Sensation: no obvious gross deficits, Deep tendon reflexes are 2+ (normal) in the right patellar, right Achilles, left patellar and left Achilles. Vital Signs: 09:54 BP 146 / 86; Pulse 79; Resp 15; Temp 97.8(TE); Pulse Ox 100% on R/A; Weight 97.52 kg; ss Height 5 ft. 9 in. (175.26 cm); Pain 7/10; 10:41 BP 127 / 79; Pulse 77; Resp 16 S; Pulse Ox 100% on R/A; ca1 09:54 Body Mass Index 31.75 (97.52 kg, 175.26 cm) ss MDM: 10:03 Patient medically screened. cp 10:33 Data reviewed: vital signs, nurses notes, lab test result(s), and as a result, I will cp discharge patient. 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 05/30 10:09 Order name: Urine Microscopic Only cp 05/30 10:10 Order name: Urine Dipstick--Ancillary (enter results); Complete Time: 10:30 eb 05/30 10:30 Interpretation: Normal except: UBLD TRACE. cp 05/30 10:09 Order name: Urine Dipstick-Ancillary (obtain specimen); Complete Time: 10:10 cp 05/30 10:10 Order name: Urine --Ancillary (enter results); Complete Time: 10:30 eb 05/30 10:37 Order name: Urine Culture EDMS Administered Medications: 10:15 Drug: Ketorolac 30 mg Route: IM; Site: right gluteus; ca1 10:45 Follow up: Response: No adverse reaction; Pain is decreased ca1 Disposition: 11:00 Chart complete. cp 14:33 Co-signature as Attending Physician, Erick Snowden MD I agree with the assessment and kdr plan of care. Disposition: 05/30/20 10:34 Discharged to Home. Impression: Low back pain. - Condition is Stable. - Discharge Instructions: Chronic Back Pain, Heat Therapy, Back Exercises. - Prescriptions for Lidoderm 5 % Topical adhesive patch,medicated - apply 1 patch by TRANSDERMAL route once daily As needed; 1 box. Cyclobenzaprine 10 mg Oral Tablet - take 1 tablet by ORAL route every 8 hours As needed; 20 tablet. - Medication Reconciliation Form, Thank You Letter, Antibiotic Education, Prescription Opioid Use, Work release form form. - Follow up: Private Physician; When: 2 - 3 days; Reason: Recheck today's complaints. - Problem is chronic. - Symptoms have improved. Signatures: Dispatcher [employer] EDWI Erick Snowden MD MD [facility] Kina Lay RN RN ss Steven Yan PA PA cp Nadia García RN RN ca1 Corrections: (The following items were deleted from the chart) 10:48 10:34 05/30/2020 10:34 Discharged to Home. Impression: Low back pain. Condition is ca1 Stable. Forms are Medication Reconciliation Form, Thank You Letter, Antibiotic Education, Prescription Opioid Use. Follow up: Private Physician; When: 2 - 3 days; Reason: Recheck today's complaints. Problem is chronic. Symptoms have improved. cp
[2020-05-30 10:56] VITALS: TEMP 97.8; O2SAT 100
[2020-05-30 11:01] VITALS: BP 127/79
== END 2020-05-30 10:48 | disposition home or self-care (01) ==
LOC: ER 09:43
DX: M54.5 Low back pain (principal); Z88.0 Allergy status to penicillin
CPT/HCPCS: 81003; 81015; 81025; 87086; 87088; 96372; 99284

== ENCOUNTER 2021-04-01 13:00 | Emergency (ER) | payer OTHER ==
--- OUTSIDE RECORDS SUMMARY | 2021-04-01 13:04 | XMS REPORT | Continuity of Care Document ---
:1970 Author Organization [facility] t Address [address] [place] [address] Support Name Relationship Address Phone Carina Unavailable [address] [phone] [place] [address] Carina Unavailable [address] [phone] [place] [address] Ruiz Other [address] [place] [address] L Ruiz Relative [address] [place] [address] N Carina Child [address] [place] [address] Care Team Providers Name Role Phone Jaycee MAXWELL APRN, RENETTAP-BC, N Attending Clinician [phone] Doctor Unassigned, Name Attending Clinician Unavailable VISIT, CLINIC Attending Clinician Unavailable Linda Ken Attending Clinician Xiomy Cazares II Attending Clinician Kedar Duvall Jr Admitting Clinician Problems Condition Condition Condition Status Onset Resolution Last Treating Co mments Source Name Details Category Date Date Treatment Clinician Date CHRONIC Diagnosis Active 2019-02-01 Me moria SDH 3-03 10:05:00 l CHRONIC 00:00: [place] SDH 00 Active 10/08/2018 [facility] NON Diagnosis Active 2018-10-08 Mem oria SUBACUTE 3-03 10:22:00 l TRAUMATIC NON 00:00: [place] SUBDURAL SUBACUTE 00 HEMATOMA TRAUMATIC SUBDURAL HEMATOMA Active 10/08/2018 [facility] Simple Problem Active 2019-04-08 Memor ia obesity 00:24:36 l (disorder) Simple Herm ree obesity (disorder) Active Problem 04/08/2019 [facility] OPID Carlos, OPIEdmundo Palumbo NONTRAUMAT Diagnosis Active 2019-02-01 Memoria IC CHRONIC 10:05:00 l SUBDURAL Carlos HEMORRHAGE NONTRAUMAT IC CHRONIC SUBDURAL HEMORRHAGE Active [facility] Allergies, Adverse Reactions, Alerts Allergy Allergy Status Severity Reaction(s) Onset Inactive Treating Comm ents Source Name Type Date Date Clinician Penicill Adverse Active hives [facility] penicill penicill Active [facility] in l [place] Social History Smoking Status Start Date Stop Date Source Social History [facility] Medications Ordered Filled Start Stop Current Ordering Indication Dosage Frequency Signature Comments Components Source Medication Medication Date Date Medication? Clinician (SIG) Name Name methocarbam Yes 500 mg = 1 Memoria ol 500 mg 3-06 tab, PO, l oral tablet 15:24: Q8H, X 5 He rm day, # 15 tab, 0 Refill(s) Levetiracet Yes 500 mg = 1 Memoria am 500 MG 3-06 tab, PO, l Oral Tablet 15:24: Q12H, # 6 H erm 00 tab, 0 Refill(s) Albuterol Yes 3 mL, NEB, Me moria 0.833 MG/ML 3- RQ4H, PRN l / 15:24: Wheezing, [place] Ipratropium 00 0 [place] Refill(s) 0.167 MG/ML Inhalant Solution Acetaminoph Yes 100.4 F, M emoria en 325 MG 3-06 0 l Oral Tablet 15:24: Refill(s) H erm Bisacodyl No Notes: Memori a 3-05 (Same As: l 20:47: Dulcolax, [place] Bisco-Lax) Tramadol No Notes: Not Mem oria 3-05 to exceed l 19:56: 400mg/day. [place] 00 (Same As: Ultram) heparin No Notes: Memoria 3-05 porcine l 05:55: heparin Carlos remove No 1 patch, Memoria patch 3-05 Route: l 03:00: TOP, Carlos 00 Bedtime, Drug form: ERFILM, Start date: 10/09/18 21:00:00 TURBINE ATTENDANT, Duration: 30 day, Stop date: 11/07/18 21:00:00 CDT Robaxin No Notes: Memoria 3-04 (Same l 19:00: as:Robaxin ) Lyrica No Notes: Memoria 3-04 (Same as: l 15:18: Lyrica) Miralax No Notes: Memoria 3-04 Dissolve l 15:17: in 8 oz of water or juice. (Same as: Miralax) Lidocaine No 1 patch, Edison anny 0.05 MG/MG 10-09 Route: l Transdermal 15:00: TOP, Narinder n Patch 00 Daily, Drug form: FILM, Start date: 10/09/18 9:00:00 TURBINE ATTENDANT, Duration: 30 day, Stop date: 11/07/18 9:00:00 [...] ___ mg sennosides, No Notes: Edison anny [facility] 3-04 (Same as: l 03:00: Senokot) Docusate 0 No 100 mg, 1 Edison anny 3-04 cap, l 03:00: Route: PO, Drug form: CAP, Q12H, Dosing Weight 95.455, kg, Start date: 10/08/18 21:00:00 TURBINE ATTENDANT, Duration: 30 day, Stop date: 11/07/18 9:00:00 CDT Vancomycin 2018-0 No 2001 mg: Me moria 3-04 infuse l 00:00: over 2.5 [place] 00 hours For adult patients only: Round to nearest 250 mg per Medical Staff approval MEDICATION WASTE Product Size: 1000 mg Product Wasted: ___ mg Artificial 2019-0 No 2 drp, Memor ia Tears 10-08 Route: l 23:00: BOTH EYES, Carlos 00 BID, Drug form: SOLN, Start date: 10/08/18 17:00:00 TURBINE ATTENDANT, Duration: 30 day, Stop date: 11/07/18 9:00:00 CDT Vancomycin 2019-0 No 1 gm, Memori a 10-08 Route: IV, l 22:00: Q8H, Dosing Weight 95.455, kg, Start date: 10/08/18 16:00:00 TURBINE ATTENDANT, Duration: 1 day, Stop date: 10/09/18 8:00:00 TURBINE ATTENDANT, ABX Indication : Surgical Prophylaxi s Glucagon 2019-0 No 1 mg, Memoria -03 Route: IM, l 20:19: Drug form: PDR/INJ, PRN, Dosing Weight 95.455, kg, PRN Blood Glucose Results, Start date: 10/08/18 14:19:00 TURBINE ATTENDANT, Duration: 30 day, Stop date: 11/07/18 15:18:00 CDT Dextrose 2019-0 No 25 gm, 50 Edison anny 50% Syringe 3-03 mL, Route: l 20:19: IVP, Drug Form: INJ, Dosing Weight 95.455, kg, PRN, PRN Blood Glucose Results, Start date: 10/08/18 14:19:00 TURBINE ATTENDANT, Duration: 30 day, Stop date: 11/07/18 15:18:00 CDT Insulin 2019-0 No 60 Memoria regular 3-03 units) l 20:19: WASTE: F/P Carlos - Black; E - Municipal Trash Bin Stable for 28 days at room temperatur e Expires in days from ____Date Potassium 2018-0 No Notes: Memori a Chloride -03 (Same as: l 20:18: KCL) Infuse over 2 hours. Calcium 2018-0 No Notes: Memoria Gluconate - WASTE: F/P l 20:18: - Sink; E Carlos 00 - Municipal Trash Bin Magnesium No Notes: Memori a Oxide 3-03 (Same as: l 20:18: Mag-Ox [place] 00 400) Magnesium oxide [id number] g elemental magnesium Dose=____m g magnesium oxide (___mg elemental magnesium) Calcium No Notes: Memoria Carbonate 3-03 (Same As: l 500 MG 20:18: Tums) [place] Chewable 00 Calcium Tablet Carbonate 500 mg = 200 mg elemental calcium Dose = mg calcium carbonate ( mg elemental calcium) potassium No Notes: Memori a phosphate 3-03 (Same as: l 20:18: K Phosphate. ) Do not infuse phosphorou s [...] phosphate 3-03 Infuse l 20:18: over 4 hour. Do not infuse phosphorou s concurrent [...] PRN Hypertensi on, Start date: 10/08/18 14:13:00 TURBINE ATTENDANT, Duration: 30 day, Stop date: 11/07/18 14:12:00 CDT sugammadex 2019-0 No Route: IV, Norma quinonesria (ANES) 10-08 Drug form: l 18:30: SOLN, [place] 00 ONCE, Stop date: 10/08/18 12:30:00 TURBINE ATTENDANT Hydralazine 2019-0 No 10 mg, Edison anny - Route: l 18:18: IVP, [place] 00 Q20Min, Dosing Weight 95.455, kg, PRN Elevated BP, Start date: 10/08/18 12:18:00 TURBINE ATTENDANT, Duration: 2 doses or times, Stop date: Limited # of times Labetalol 2019-0 No 10 mg, 2 Edison anny 3-03 mL, Route: l 18:18: IVP, Drug form: INJ, Q5Min, Dosing Weight 95.455, kg, PRN Elevated BP, Start date: 10/08/18 12:18:00 TURBINE ATTENDANT, Duration: 5 doses or times, Stop date: 10/09/18 0:00:00 TURBINE ATTENDANT Acetaminoph 2019-0 No 1,000 mg, Norma emoria en 10-08 Route: PO, l 18:18: Drug form: [place] 00 TAB, ONCE, Dosing Weight 95.455, kg, PRN Pain Score 1-3, Start date: 10/08/18 12:18:00 TURBINE ATTENDANT Promethazin 2019-0 No 6.25 mg, Me moria e 10-08 Route: l 18:18: IVPB, [place] 00 ONCE, Dosing Weight 95.455, kg, PRN Nausea & Vomiting, Start date: 10/08/18 12:18:00 TURBINE ATTENDANT Ondansetron 2019-0 No 4 mg, Memor ia 10-08 Route: l 18:18: IVP, ONCE, Dosing Weight 95.455, kg, PRN Nausea & Vomiting, Start date: 10/08/18 12:18:00 TURBINE ATTENDANT Dexamethaso 2019-0 No 4 mg, Memor ia ne 10-08 Route: l 18:18: IVP, ONCE, Dosing Weight 95.455, kg, PRN Nausea & Vomiting, Start date: 10/08/18 12:18:00 TURBINE ATTENDANT Naloxone 2018-0 No 0.4 mg, Memori a 10-08 Route: l 18:18: IVP, Carlos 00 Q2MIN, Dosing Weight 95.455, kg, PRN Narcotic Reversal, Start date: 10/08/18 12:18:00 TURBINE ATTENDANT, Duration: 8 doses or times, Stop date: Limited # of times Flumazenil No 0.2 mg, Edison anny 10-08 Route: l 18:18: IVP, PRN, Carlos 00 Dosing Weight 95.455, kg, PRN Benzodiaze pine Reversal, Initial dose, Start date: 10/08/18 12:18:00 TURBINE ATTENDANT, Duration: 30 day, Stop date: 11/07/18 13:17:00 CDT Hydromorpho No 0.5 mg, Mem oria ne 10-08 Route: l 18:18: IVP, [place] 00 Q5Min, Dosing Weight 95.455, kg, PRN Pain Score 7-10, Start date: 10/08/18 12:18:00 TURBINE ATTENDANT, Duration: 4 doses or times, Stop date: Limited # of times sugammadex No Notes: Memor ia 10-08 (Same as: l 18:00: [place]) famotidine No Route: IV, M emoria (ANES) 10-08 Drug form: l 17:59: INJ, ONCE, Stop date: 10/08/18 11:59:00 TURBINE ATTENDANT metoclopram No Route: IV, Memoria anais (ANES) 10-08 Drug form: l 17:59: INJ, ONCE, Stop date: 10/08/18 11:59:00 TURBINE ATTENDANT ondansetron No Route: IV, Memoria (ANES) 10-08 Drug form: l 17:59: INJ, ONCE, Stop date: 10/08/18 11:59:00 TURBINE ATTENDANT phenylephri No Route: IV, Memoria ne (ANES) 10-08 Drug form: l 17:57: INJ, ONCE, Stop date: 10/08/18 11:57:00 TURBINE ATTENDANT lidocaine 0 No Route: IV, Me moria (ANES) 10-08 Drug form: l 17:51: INJ, ONCE, Stop date: 10/08/18 11:51:00 TURBINE ATTENDANT dexamethaso 2018- No Route: IV, Memoria ne (ANES) 10-08 Drug form: l 17:51: INJ, ONCE, Stop date: 10/08/18 11:51:00 TURBINE ATTENDANT propofol 2019-0 No Route: IV, Mem oria (ANES) 10-08 Drug form: l 17:51: INJ, ONCE, Stop date: 10/08/18 11:51:00 TURBINE ATTENDANT rocuronium No Route: IV, M emoria (ANES) 10-08 Drug form: l 17:51: INJ, ONCE, Stop date: 10/08/18 11:51:00 TURBINE ATTENDANT levETIRAcet No Route: IV, Memoria am (ANES) 10-08 Drug form: l 17:51: INJ, ONCE, Stop date: 10/08/18 11:51:00 TURBINE ATTENDANT fentaNYL 2019-0 No Route: IV, Mem oria (ANES) 10-08 Drug form: l 17:51: INJ, ONCE, Stop date: 10/08/18 11:51:00 TURBINE ATTENDANT propofol 2018-0 No Route: IV, Mem oria (ANES) 10 10-08 Drug form: l mg 16:30: INJ, Start date: 10/08/18 10:30:00 TURBINE ATTENDANT, Stop date: 10/08/18 11:30:00 TURBINE ATTENDANT remifentani No Route: IV, Memoria l (ANES) 1 10-08 Drug form: l mg 16:30: INJ, Start date: 10/08/18 10:30:00 TURBINE ATTENDANT, Stop date: 10/08/18 11:30:00 TURBINE ATTENDANT Sodium 2018-0 No Route: IV, Memor ia Chloride 10-08 Drug form: l 0.9% IV 16:25: INJ, Start Herm ree (ANES) date: mL + 10/08/18 vancomycin 10:25:00 (ANES) 1500 TURBINE ATTENDANT, Stop mg date: 10/08/18 11:25:00 TURBINE ATTENDANT Isolyte S No Route: IV, Me moria PH 7.4 10-08 Total l (ANES) 1000 16:09: Volume: Her salas mL 00 1,000, Start date: 10/08/18 10:09:00 TURBINE ATTENDANT, Stop date: 10/08/18 11:09:00 TURBINE ATTENDANT Saline 2018-0 No Notes: Memoria Flush 0.9% 10-08 (Same as: l 15:57: BD Carlos 00 Posiflush) Albuterol 2018-0 No 3 ml, Memoria 0.833 MG/ML 10-08 Route: l / 15:57: NEB, Drug [place] Ipratropium 00 Form: [place] SOLN, 0.167 MG/ML Dosing Inhalant Weight Solution 95.455, kg, RQ4H, PRN Wheezing, Start date: 10/08/18 9:57:00 TURBINE ATTENDANT, Duration: 30 day, Stop date: 11/07/18 9:56:00 CDT Labetalol 0 No 10 mg, 2 Edison anny 3-03 mL, Route: l 15:57: IVP, Drug [place] 00 form: INJ, Q15Min, Dosing Weight 95.455, kg, PRN Hypertensi on, Start date: 10/08/18 9:57:00 TURBINE ATTENDANT, Duration: 30 day, Stop date: 11/07/18 10:56:00 CDT Hydralazine 0 No 20 mg, 1 Me moria 3-03 mL, Route: l 15:57: IVP, Drug [place] 00 form: INJ, Q4H, Dosing Weight 95.455, kg, PRN Hypertensi on, Start date: 10/08/18 9:57:00 TURBINE ATTENDANT, Duration: 30 day, Stop date: 11/07/18 9:56:00 CDT Sodium 2019-0 No 1,000 mL, Memori a Chloride 10-08 Rate: 50 l 0.9% IV 15:57: ml/hr, [place] 1,000 mL 00 Infuse over: 20 hr, Route: IV, Dosing Weight 95.455 kg, Total Volume: 1,000, Start date: 10/08/18 9:57:00 TURBINE ATTENDANT, Duration: 30 day, Stop date: 11/07/18 9:56:00 CDT, 2.16, m2 Levetiracet 2018-0 No Notes: Edison anny am 3-03 Same as l 15:57: Keppra [place] 00 Mix with 100 mL NS, LR or D5W MEDICATION WASTE Product Size: 500 mg Product Wasted: ___ mg Acetaminoph 2019-0 No 100.4 F, M emoria en 10-08 Start l 15:57: date: Carlos 10/08/18 9:57:00 TURBINE ATTENDANT, Duration: 30 day, Stop date: 11/07/18 9:56:00 CDT Ondansetron 2019-0 No Notes: Memoria 3- MEDICATION l 15:57: WASTE Product Size: 4 mg Product Wasted: ___ mg Bisacodyl 2018-0 No 10 mg, 1 Edison anny 10-08 supp, l 15:57: Route: UT, Carlos 00 Drug form: SUPP, Daily, Dosing Weight 95.455, kg, PRN Constipati on, Start date: 10/08/18 9:57:00 TURBINE ATTENDANT, Duration: 30 day, Stop date: 11/07/18 9:56:00 CDT Zofran 2018-0 No 4 mg, Memoria 10-08 Route: l 15:09: IVP, Drug form: INJ, ONCE, Dosing Weight 95.455, kg, Priority: STAT, Start date: 10/08/18 9:09:00 TURBINE ATTENDANT, Stop date: 10/08/18 9:09:00 TURBINE ATTENDANT Morphine 2018-0 No 4 mg, Memoria 10-08 Route: l 15:09: IVP, ONCE, Dosing Weight 95.455, kg, Priority: STAT, Start date: 10/08/18 9:09:00 TURBINE ATTENDANT, Stop date: 10/08/18 9:09:00 TURBINE ATTENDANT Sodium 2019-0 No 1,000 mL, Memori a Chloride 10-08 Infuse l 0.9% 15:09: Over: 1 [place] (Bolus) IV 00 hr, Route: IV, ONCE, Priority: STAT, Dosing Weight 95.455 kg, Start date: 10/08/18 9:09:00 TURBINE ATTENDANT, Stop date: 10/08/18 9:09:00 TURBINE ATTENDANT Sulfamethox Sulfamethox Yes Parminder not [facility] [...] Comments Source Heart Rate 2018-10-11 17:26:00 [facility] [place] Temperature Oral (F) 2018-10-11 17:26:00 97.9 F [facility] [place] Respitory Rate 2018-10-11 17:26:00 Memori al [place] Systolic (mm Hg) 2018-10-11 17:26:00 Edison rial [place] Diastolic (mm Hg) 2018-10-11 17:26:00 Mem orial [place] Systolic (mm Hg) 2018-10-11 13:44:00 Edison rial [place] Diastolic (mm Hg) 2018-10-11 13:44:00 Mem orial [place] Respitory Rate 2018-10-11 13:44:00 Memori al [place] Heart Rate 2018-10-11 13:44:00 [facility] [place] Temperature Oral (F) 2018-10-11 13:44:00 99.1 F [facility] [place] Temperature Oral (F) 2018-10-11 10:47:00 97.9 F [facility] [place] Heart Rate 2018-10-11 10:47:00 [facility] [place] Respitory Rate 2018-10-11 10:47:00 Memori al [place] Systolic (mm Hg) 2018-10-11 10:47:00 Edison rial [place] Diastolic (mm Hg) 2018-10-11 10:47:00 Mem orial [place] Weight 2018-10-08 21:12:00 [facility] [place] Weight 2018-10-08 14:38:00 [facility] [place] Height 2018-10-08 14:38:00 172.72 cm [facility] [place] BMI Calculated 2018-10-08 14:38:00 Memori al [place] Procedures This patient has no known procedures. Encounters Start End Encounter Admission Attending Care Care Encounter Source Date/Time Date/Time Type Type Clinicians Facility Department ID 2018-10-08 Inpatient E [facility] [id number] [facility] 09:57:00 2021-02-23 2021-02-23 Outpatient [facility] [id number] [facility] 2021-02-23 2021-02-23 [facility] [id number] 2021-01-26 2021-01-26 [facility] [id number] [facility] 2021-01-23 2021-01-23 Office [facility] [id number] 08:50:29 10:03:02 Visit [facility] [id number] [place] [id number] [place] [id number] Medical 098 Office Building 2021-01-23 2021-01-23 Orders Doctor KEDAR [id number] 00:00:00 00:00:00 Only Unassigned, NIKO [id number] [place] [facility] [id number] 2021-01-15 2021-01-15 [facility] [id number] [facility] 2021-01-06 2021-01-06 [facility] [id number] [facility] 2020-11-25 2020-11-25 [facility] [id number] [facility] 2020-09-11 2020-09-11 [facility] [id number] [facility] 2020-09-11 2020-09-11 Outpatient [facility] [id number] [facility] 2020-08-14 2020-08-14 [facility] [id number] [facility] 2020-07-16 2020-07-16 Outpatient [facility] [id number] [facility] 2020-03-26 2020-03-26 [facility] [id number] 15:00:00 15:00:[address] [place] [address] [place] [address] - Drive [facility] Clinics 2020-03-24 2020-03-24 [facility] [id number] [address] 08:34:00 08:34:[address] [place] [address] Luke s - Drive [facility] Out[facility] Clinics 2020-03-18 2020-03-18 [facility] [id number] 16:45:00 16:45:00 [place] [address] Luke s - Drive [facility] Medicine Outpat[facility] ent Clinics 2020-03-18 2020-03-18 [facility] [id number] 15:30:00 15:30:00 [place] [address] Luke s - Drive [facility] Family [facility] l Medicine Outpat[facility] ent Clinics 2020-03-05 2020-03-05 [facility] [id number] 10:30:00 10:30:00 [place] [address] - [address] [facility] l Medicine Outpat[facility] ent Clinics 2019-04-04 2019-04-06 Phone nullFlavo MNA [id number] Memoria 17:21:53 04:59:59 Message r Neurosurger 05 l y [facility] 2019-04-04 2019-04-05 Outpatient MHMISCHER MHMISCHER [id number] 12:21:53 23:59:59 2018-12-21 2018-12-23 Phone nullFlavo MNA [id number] Memoria 15:05:32 04:59:59 Message r Neurosurger 04 l y [facility] 2018-12-21 2018-12-22 Outpatient MHMISCHER MHMISCHER [id number] 10:05:32 23:59:59 2018-12-08 2018-12-10 Phone nullFlavo MNA [id number] Memoria 18:27:20 04:59:59 Message r Neurosurger 03 l y [facility] 2018-12-08 2018-12-09 Outpatient MHMISCHER MHMISCHER [id number] 13:27:20 23:59:59 2018-12-07 2018-12-08 Outpatient nullFlavo MNA [id number] Memoria 16:15:00 04:59:59 r Neurosurger 01 l y [facility] 2018-12-07 2018-12-08 Outpt Diag nullFlavo [facility] [id number] Memoria 15:09:00 04:59:00 Services r Outpatient 01 l Imaging [facility] 2018-12-07 2018-12-07 Outpatient VISIT, MHMISCHER MHMISCHER [id number] 11:15:00 23:59:[address] [place] [address] 2018-12-07 2018-12-07 Outpatient Suellen [facility] [id number] 10:09:00 23:59:00 Edis Mckeon 2018-12-07 2018-12-07 Outpatient MHIE MHIE [id number] Memoria 11:15:00 11:15:00 01 pauly [place] 2018-10-31 2018-11-02 Phone nullFlavo MNA [id number] Memoria 17:52:00 04:59:59 Message r Neurosurger 02 l y [facility] 2018-10-31 2018-11-01 Outpatient MHMISCHER MHMISCHER [id number] 12:52:00 23:59:59 2018-10-27 2018-10-29 Phone nullFlavo MNA [id number] Memoria 14:49:00 04:59:59 Message r Neurosurger 01 l y [facility] 2018-10-27 2018-10-28 Outpatient MHMISCHER MHMISCHER [id number] 09:49:00 23:59:59 2018-10-26 2018-10-27 Outpatient nullFlavo MNA [id number] Memoria 17:15:00 04:59:59 r Neurosurger 00 l y [facility] 2018-10-26 2018-10-26 Outpatient VISIT, MHMISCHER MHMISCHER [id number] 12:15:00 23:59:59 TRAUMA 00 CLINIC 2018-10-26 2018-10-26 Outpatient MHIE MHIE [id number] Memoria 12:15:00 12:15:00 00 l [place] 2018-10-24 2018-10-25 Outpt Diag nullFlavo [facility] [id number] Memoria 13:26:00 04:59:00 Services r Outpatient 00 l Imaging [facility] 2018-10-24 2018-10-24 Outpatient MICHAEL KenP [facility] [id number] 08:26:00 23:59:00 Edis iji 00 2018-10-17 2018-10-19 Phone nullFlavo MNA [id number] Memoria 15:08:00 04:59:59 Message r Neurosurger 00 l y [facility] 2018-10-17 2018-10-18 Outpatient MISCHER MISCHER [id number] 10:08:00 23:59:59 00 2018-10-08 2018-10-11 Inpatient nullFlavo [facility] [id number] Memoria 14:37:00 21:18:00 r [place] 62 l [facility] 2018-10-08 2018-10-11 Outpatient Sage [facility] [id number] 08:37:00 15:18:00 Bryan Pisano Results Test Description Test Time Test Comments Results Result Comments Source CHEM PANEL 2018-10-11 18 [facility] Yoon nn [...] code = MCH) 29.6 pg 27.0-31.0 [facility] MzatetuYJDUYSYWXD6336-08-56 06:11:0038.3[facility] Hermann[facility]MATOLOGY 2018-10-11 06:11:004.30[facility] SuxespgCFLSDUBNEJ7282-00-74 06:11:0089.1[facility] UmlaoveGGENEBZOYU9442-27-70 06:11:0012.7[facility] XrjzgshCWXAAISHGI9091-17-12 06:11:002.9[facility] RwkvpeiHHPKGFJZDS0586-47-18 06:11:0028.7[facility] [place] RIHAHVZWCX2131-82-75 06:11:009.5[facility] PvbgieyVJHRCCPNZC5781-50-19 06:11:00 58.7[facility] RpezobwKYRLWPURRV5580-56-66 06:11:002.6[facility] HermannHEMATOLOGY 2018-10-11 06:11:000.3[facility] OjvbpzkRONYCESHKW6225-17-24 06:11:000.2[facility] JboamaoXHQDAGLVGT3521-97-63 06:11:005.3[facility] PapeprmSUAKLVNNSF3272-27-85 06:11:000.9[facility] HermannCHEM KIMCO3705-48-83 06:11:0073[facility] HermannCHEM HXAFB3775-53-17 06:11:0074[facility] HermannCHEM MZRZB2881-08-68 06:11:000.93 [facility] HermannCHEM [id number] 06:11:34485Kihttdpu HermannCHEM PANEL 2018-10-10 06:24:002.0[facility] HermannCHEM RBSSB5174-99-09 06:24:0068[facility] HermannCHEM VWNPN2539-22-00 06:24:003.9[facility] HermannCHEM CEPCN3760-61-10 06:24:59411Pfqchsbj HermannCHEM MUNUQ2272-20-35 06:24:00754Jlswywiq HermannCHEM PHOOX7091-34-20 06:24:001.00[facility] HermannCHEM XGDZF2371-06-89 06:24:0090 [facility] HermannCHEM ZZKFJ4477-20-78 06:24:0021[facility] HermannCHEM PANEL 2018-10-10 06:24:0028[facility] HermannCHEM AAIIG8633-13-15 06:24:008.6[facility] HermannCHEM SAGZA6735-59-86 06:24:007.9[facility] HermannCHEM TNKCF5308-82-10 06:24:003.9[facility] LjsfajnEJHQDNWCBB2666-81-49 06:24:000.1[facility] [place] LQYZIJJWHC8580-47-26 06:24:000.2[facility] LkiudrjJKUTUHHMRK4356-34-74 06:24:002.0 [facility] FnsqwxrWITWFZRGPW8121-33-01 06:24:002.1[facility]annHEMATOLOGY 2018-10-10 06:24:000.8[facility] DswizvhRWVPOPKHCL5785-39-79 06:24:000.8[facility] PnhrkqzUXLADTHROJ8425-59-72 06:24:005.4[facility] FzjuvarWWUXEEFKAX2265-32-35 06:24:0024.5[facility] NxxjonqOEIBNBWSNB3656-23-44 06:24:0063.8[facility] [place] VABKPXCXEF9652-26-21 06:24:008.9[facility] IxazwvtWOICSHEPFN2603-74-34 06:24:48962 [facility] ZdaqwjxGMITEQNSZD0505-35-38 06:24:008.2[facility]annHEMATOLOGY 2018-10-10 06:24:0012.3[facility] CkndvkdYMGEPXQKDX1505-50-93 06:24:004.13[facility] LixigzpRKIIRPKROV4793-18-53 06:24:008.4[facility] JtqvkhzGWIBQPVRAO7785-27-38 06:24:0088.9[facility] NbnbaebZCQCHLSNPZ9367-49-88 06:24:00 Test Item Value Reference Range Interpretation Comments MCH (test code = MCH) 29.9 pg 27.0-31.0 [facility] KishjgmBDUREIOYBD0120-49-82 06:24:0036.7[facility]annHEMATOLOGY 2018-10-10 06:24:0013.6[facility] McwcfvaMLKDBBXZDM2815-37-87 06:24:0033.6[facility] HermannPARATHYROID VGHCWMN4960-02-25 06:24:001.14[facility] HermannPARATHYROID YWXHAFQ4591-17-68 06:24:001.15[facility]annCHEM SZIDZ1296-97-37 07:49:003.2 [facility]annCHEM OPGNK3871-05-03 07:49:001.9[facility]annCHEM PANEL 2018-10-09 07:49:0081[facility]annCHEM JWUDN8863-97-83 07:49:0010.9[facility]annCHEM XTCUA9266-70-12 07:49:008.5[facility]annCHEM WXDKQ8738-50-81 07:49:003.9[facility]annCHEM PIWPT9206-31-44 07:49:54006Shoxerlc HermannCHEM XBRXG0575-90-48 07:49:02378Gkcpqugd HermannCHEM IQYLD4184-73-46 07:49:000.96 [facility]annCHE[facility] ITRYH5586-86-34 07:49:0017[facility]annCHEM PANEL 2018-10-09 07:49:55451Kzjfatvk HermannCHEM LPGWZ1492-41-10 07:49:0024[facility] LljhitlCEFFMZAMKC9058-58-96 07:49:0086.1[facility] TpzvndlIBCAENQAFZ7136-05-80 07:49:000.4[facility] KephdrmWAKCJUCECV3771-83-65 07:49:0012.7[facility] AYPMDKAFJC3898-56-09 07:49:006.3[facility] CtqqeswTXMXXSKMWQ9396-98-15 07:49:007.2 [facility] WwvekilWYYYQPOOXC4884-45-08 07:49:000.9[facility]annHEMATOLOGY 2018-10-09 07:49:000.1[facility] XtssshhYKHMHADKDL6850-14-96 07:49:001.1[facility] ShytavrYFQKQDFNLC5394-69-33 07:49:008.3[facility] HlmipazUTRUPDWXGJ0123-95-03 07:49:0033.3[facility] TfyjcijGYKULUGNMT6461-73-14 07:49:0013.5[facility] [place] RJTILGEIOA3152-89-96 07:49:23719Crvlhklw UgyitvhJUWBNQSSDT2583-49-62 07:49:00 12.8[facility] SatxbayXWWGXNRVYK4482-99-47 07:49:0038.4[facility]Y 2018-10-09 07:49:0088.1[facility] CuohiyyHQKEUSFBWA7951-21-31 07:49:00 Test Item Value Reference Range Interpretation Comments MCH (test code = MCH) 29.4 pg 27.0-31.0 [facility] VzzgvjmTGGTERMLGM6721-92-52 07:49:0014.7[facility]annHEMATOLOGY 2018-10-09 07:49:004.36[facility] HermannPARATHYROID MWDBFLH4743-72-79 07:49:00 1.15[facility] HermannPARATHYROID HLHTCWY7885-05-25 07:49:001.16[facility] CARDIAC HKSTZDG5087-57-18 18:27:00<0.02[facility]annURINE AND STOOL 2018-10-08 15:59:00Negative *NA*(10/08/18 9:59 AM)[facility] ST[facility]OL 2018-10-08 15:59:00Negative (10/08/18 9:59 AM)[facility] ST[facility] 2018-10-08 15:59:00Negative *NA*(10/08/18 9:59 AM)[facility] ST[facility]OL 2018-10-08 15:59:00 Test Item Value Reference Range Interpretation Comments UA Spec Grav (test code = UA Spec 1.010 1 Grav) [facility] [id number] 15:59:00 Test Item Value Reference Range Interpretation Comments UA pH (test code = UA pH) 6.0 1 5.0-8.0 [facility] [id number] 15:59:00Yellow *NA*(10/08/18 9:59 AM) [facility] [id number] 15:59:00Clear (10/08/18 9:59 AM)[facility] [id number] 15:59:00Negative (10/08/18 9:59 AM)[facility] [id number] 15:59:00Negative (10/08/18 9:59 AM)[facility] [id number] 15:59:00Small *ABN*(10/08/18 9:59 AM)[facility] [id number] 15:59:00Negative (10/08/18 9:59 AM)[facility] EKIPR5538-09-29 15:59:000.2[facility] CdnrabyRBAFOXWYOU4704-36-90 15:21:00 Test Item Value Reference Range Interpretation Comments PTT (test code = PTT) 36.5 s 22.9-35.[address] [facility]jodldoXBRZKXXSXL6385-99-42 15:21:00 Test Item Value Reference Range Interpretation Comments PT (test code = PT) 13.3 s 12.0-14.7 [facility]ser[facility]ICUIAOSRE0911-19-20 15:21:00 Test Item Value Reference Range Interpretation Comments INR (test code = INR) 1.03 1 0.85-1.17 [facility] CenterVuyvkeuKECYSZNULQ7083-12-79 15:21:00 Test Item Value Reference Range Interpretation Comments Split Point Rapid (test code = Split 0.6 min Point Rapid) [facility] HospitalHgdpnhxOAZRCXGCEJ5469-81-86 15:21:00 Test Item Value Reference Range Interpretation Comments R-time Rapid (test code = R-time 0.7 min 0.4-0.7 Rapid) [facility] CenterZtbtboqRAPDJVMRFT8165-61-46 15:21:00 Test Item Value Reference Range Interpretation Comments ACT (TEG) Rapid (test code = ACT (TEG) 113 s 86-118 Rapid) [facility] HospitalOxfgjxuTAAQYJKJOE7016-93-67 15:21:0015.0[facility] 2018-10-[facility] 15:21:00 Test Item Value Reference Range Interpretation Comments K-time Rapid (test code = K-time 0.8 min 0.6-2.3 Rapid) [facility] HospitalTlsrezgLXFRUIXZQV4689-71-47 15:21:000.3[facility]annHEMATOLOGY 2018-10-08 15:21:00 Test Item Value Reference Range Interpretation Comments Angle Rapid (test code = Angle 79 degrees 64-80 Rapid) [facility] [id number] 15:21:00 Test Item Value Reference Range Interpretation Comments Max Amplitude Rapid (test code = Max 75 mm 52-71 Amplitude Rapid) [facility] [id number] 15:20:00Negative (10/08/18 9:20 AM) [facility] HermannCARDIAC PYKQOYW3951-72-87 15:18:00<0.02[facility] HermannCHEM VOROJ3812-05-07 15:18:003.9[facility] HermannCHEM [id number] 15:18:001.9 [facility]annCHEM [id number] 15:18:000.8[facility]annHEMATOLOGY 2018-10-08 15:18:000.1[facility] IbpvmnfNZGKJSLYQH8255-02-63 15:18:000.1[facility] AoaxsvdPJEWGSXVXA8807-50-15 15:18:001.8[facility] [place]
[2021-04-01 15:03] LABS: SARS-COV-2 RT PCR NEGATIVE (NEGATIVE)
--- NOTE | 2021-04-01 15:37 | EDPHYS ---
Physician Documentation [facility] Name: Joanna Lim Age: 51 yrs Sex: Female : 1970 Arrival Date: 04/01/2021 Time: 13:03 Bed Waiting Private MD: GAGANDEEP Physician Steven Meehan HPI: 04/01 15:59 This 51 yrs old Black Female presents to ER via Ambulatory with complaints of r/o covid.kb 15:59 The patient or guardian reports flu symptoms, myalgias. Onset: The symptoms/episode kb began/occurred today. Severity of symptoms: At their worst the symptoms were very mild, in the emergency department the symptoms are unchanged. Modifying factors: The symptoms are alleviated by nothing, the symptoms are aggravated by nothing. Associated signs and symptoms: The patient has no apparent associated signs or symptoms. The patient has not experienced similar symptoms in the past. The patient has not recently seen a physician. Historical: - Allergies: 13:26 PENICILLINS; ss - PMHx: 13:26 "Thyroid Problem"; ss - Immunization history:: Client reports having NOT received the Covid vaccine. - Social history:: Smoking status: Patient denies any tobacco usage or history of. ROS: 15:59 Respiratory: Negative for shortness of breath, cough, wheezing, and pleuritic chest kb pain. 15:59 Constitutional: Positive for body aches. 15:59 All other systems are negative. Exam: 15:59 Constitutional: This is a well developed, well nourished patient who is awake, alert, kb and in no acute distress. Head/Face: Normocephalic, atraumatic. Respiratory: Respirations even and unlabored. No increased work of breathing, no retractions or nasal flaring. Skin: Warm, dry with normal turgor. Normal color. MS/ Extremity: Pulses equal, no cyanosis. Neurovascular intact. Full, normal range of motion. Neuro: Awake and alert, GCS 15, oriented to person, place, time, and situation. Moves all extremities. Normal gait. Psych: Awake, alert, with orientation to person, place and time. Behavior, mood, and affect are within normal limits. Vital Signs: 13:27 BP 128 / 92; Pulse 75; Resp 16; Temp 98.1(TE); Pulse Ox 100% on R/A; Pain 6/10; ss MDM: 14:03 Patient medically screened. kb 15:57 Data reviewed: vital signs, nurses notes. Data interpreted: Pulse oximetry: on room air kb is 100 %. Interpretation: normal. Counseling: I had a detailed discussion with the patient and/or guardian regarding: the historical points, exam findings, and any diagnostic results supporting the discharge/admit diagnosis, lab results, the need for outpatient follow up, a family practitioner, to return to the emergency department if symptoms worsen or persist or if there are any questions or concerns that arise at home. 04/01 15:03 Order name: COVID-19/FLU A+B; Complete Time: 15:28 EDMS Administered Medications: No medications were administered Disposition: 04/02 14:48 Co-signature as Attending Physician, Steven Meehan MD I agree with the assessment and iva plan of care. Disposition Summary: 04/01/21 15:37 Discharge Ordered Location: Home kb Condition: Stable kb Diagnosis - Myalgia kb Followup: kb - With: Emergency Department - When: As needed - Reason: Worsening of condition Followup: kb - With: Private Physician - When: 2 - 3 days - Reason: Recheck today's complaints, Continuance of care, Re-evaluation by your physician Discharge Instructions: - Discharge Summary Sheet kb - Muscle Pain, Adult kb Forms: - Medication Reconciliation Form kb - Thank You Letter kb - Antibiotic Education kb - Prescription Opioid Use kb - Work release form sv Signatures: Dispatcher [employer] EDLetitia Amador, GROUP INSURANCE SPECIAL AGENT-C GROUP INSURANCE SPECIAL AGENT-Steven Amezcua MD MD cha Smirch, Shelby, RN RN ss Corrections: (The following items were deleted from the chart) 04/01 14:20 13:27 CORONAVIRUS+MR.LAB.BRZ ordered. EDMS EDMS 14:21 13:27 Influenza Screen (A \\T\\ B)+BA.LAB.BRZ ordered. EDMS EDMS
--- NOTE | 2021-04-01 15:37 | ER ---
Nurse's Notes [facility] Name: Joanna Lim Age: 51 yrs Sex: Female : 1970 Arrival Date: 04/01/2021 Time: 13:03 Bed Waiting Private MD: Diagnosis: Myalgia Presentation: 04/01 13:25 Chief complaint: Patient states: "Sweats and body aches" Pt reports her symptoms have ss been ongoing for a week. Coronavirus screen: Client presents with at least one sign or symptom that may indicate coronavirus-19. Standard/surgical mask placed on the client. Provider contacted for isolation considerations. Ebola Screen: Patient denies exposure to infectious person. Patient denies travel to an Ebola-affected area in the 21 days before illness onset. Initial Sepsis Screen: Does the patient meet any 2 criteria? No. Patient's initial sepsis screen is negative. Does the patient have a suspected source of infection? No. Patient's initial sepsis screen is negative. Risk Assessment: Do you want to hurt yourself or someone else? Patient reports no desire to harm self or others. Onset of symptoms was March 25, 2021. 13:25 Method Of Arrival: Ambulatory ss 13:25 Acuity: JAYSHREE 4 ss Triage Assessment: 13:25 General: Appears in no apparent distress. comfortable, Behavior is calm, cooperative, sv appropriate for age. Pain: Denies pain. Neuro: Level of Consciousness is awake, alert, obeys commands, Oriented to person, place, time, situation, Gait is steady. Respiratory: Airway is patent Respiratory effort is even, unlabored. Derm: Skin is normal. Historical: - Allergies: 13:26 PENICILLINS; ss - PMHx: 13:26 "Thyroid Problem"; ss - Immunization history:: Client reports having NOT received the Covid vaccine. - Social history:: Smoking status: Patient denies any tobacco usage or history of. Screenin:50 Abuse screen: Denies threats or abuse. Denies injuries from another. Nutritional sv screening: No deficits noted. Tuberculosis screening: No symptoms or risk factors identified. Fall Risk None identified. Assessment: 15:50 Reassessment: Patient appears in no apparent distress at this time. No changes from sv previously documented assessment. Patient and/or family updated on plan of care and expected duration. Pain level reassessed. Patient is alert, oriented x 3, equal unlabored respirations, skin warm/dry/pink. Vital Signs: 13:27 BP 128 / 92; Pulse 75; Resp 16; Temp 98.1(TE); Pulse Ox 100% on R/A; Pain 6/10; ss ED Course: 13:03 Patient arrived in ED. as 13:26 Triage completed. ss 13:26 Arm band placed on left wrist. ss 14:02 Letitia Noe FNP-C is [facility]. kb 14:02 Steven Meehan MD is Attending Physician. kb 14:11 COVID swab sent to lab. Flu and/or RSV swab sent to lab. sv 15:50 Nadege Gipson, RN is Primary Nurse. sv 15:50 Patient has correct armband on for positive identification. sv 15:50 No provider procedures requiring assistance completed. Patient did not have IV access sv during this emergency room visit. Administered Medications: No medications were administered Outcome: 15:37 Discharge ordered by MD. kb 15:50 Patient left the ED. sv 15:50 Discharged to home ambulatory. sv 15:50 Condition: stable 15:50 Discharge instructions given to patient, Instructed on discharge instructions, follow up and referral plans. Demonstrated understanding of instructions, follow-up care. Signatures: Letitia Noe FNP-C NEONATOLOGIST-Ckb Nadege Gipson, RN RN Gabbi Casanova Shelby, RN RN Corrections: (The following items were deleted from the chart) 14:11 14:11 COVID swab sent to lab. sv sv
[2021-04-01 16:01] VITALS: BP 128/92; TEMP 98.1; O2SAT 100
== END 2021-04-01 15:50 | disposition home or self-care (01) ==
LOC: ER 13:00
DX: M79.10 Myalgia, unspecified site (principal); Z20.822 Contact with and (suspected) exposure to COVID-19; Z88.0 Allergy status to penicillin
CPT/HCPCS: 0240U; 99283

== ENCOUNTER 2021-04-19 18:40 | Emergency (ER) | payer OTHER ==
--- OUTSIDE RECORDS SUMMARY | 2021-04-19 18:44 | XMS REPORT | Continuity of Care Document ---
:1970 Author Organization [facility] t Address [address] [place] [address] Support Name Relationship Address Phone Carina Unavailable [address] [phone] [place] [address] Carina Unavailable [address] [phone] [place] [address] Ruiz Other [address] [place] [address] L Joseph Relative [address] [place] [address] N Carina Child [address] [place] [address] Care Team Providers Name Role Phone Jaycee MAXWELL, ACUTE SPECIALIST, CNP-BC, N Attending Clinician [phone] Doctor Unassigned, Name Attending Clinician Unavailable Problems This patient has no known problems. Allergies, Adverse Reactions, Alerts Allergy Allergy Status Severity Reaction(s) Onset Inactive Treating Comm ents Source Name Type Date Date Clinician Penicill Adverse Active hives [facility] Medications Ordered Filled Start Stop Current Ordering Indication Dosage Frequency Signature Comments Components Source Medication Medication Date Date Medication? Clinician (SIG) Name Name Sulfamethox Sulfamethox Yes Parminder not [facility] azole-TMP azole-TMP [place] defined [facility] - [facility] Tramadol Tramadol Yes Parminder [address] HCl HCl [place]ele[facility] as needed [facility] Naproxen Naproxen Yes Parminder [address] [place] with food [facility] - or milk as [facility] Procedures This patient has no known procedures. Encounters Start End Encounter Admission Attending Care Care Encounter Source Date/Time Date/Time Type Type Clinicians Facility Department ID 2021-02-23 2021-02-23 [id number] 2021-02-23 2021-02-23 [facility] [id number] [facility] 2021-01-26 2021-01-26 [facility] [id number] [facility] 2021-01-23 2021-01-23 Office [facility] [id number] 08:50:29 10:03:02 Visit [facility] [id number] [place] [id number] [place] [id number] Medical 098 Office Building 2021-01-23 2021-01-23 Orders Doctor KEDAR [id number] 00:00:00 00:00:00 Only Unassigned, NIKO [id number] [place] [facility] [id number] 2021-01-15 2021-01-15 [facility] [id number] [facility] 2021-01-06 2021-01-06 [facility] [id number] [facility] 2020-11-25 2020-11-25 [facility] [id number] 2020-09-11 2020-09-11 [facility] [id number] [facility] 2020-09-11 2020-09-11 [facility] [id number] [facility] 2020-08-14 2020-08-14 [facility] [id number] [facility] 2020-07-16 2020-07-16 [facility] [id number] [facility] 2020-03-26 2020-03-26 [facility] [id number] [address] 15:00:00 15:00:00 [facility] 2020-03-24 2020-03-24 [facility] [id number] [address] 08:34:00 08:34:00 [facility] [employer] [facility] 2020-03-18 2020-03-18 [facility] [id number] 16:45:00 16:45:00 t [place] [employer] [facility] 2020-03-18 2020-03-18 [facility] [id number] 15:30:00 15:30:00 [facility] [employer] [facility] 2020-03-05 2020-03-05 [facility] [id number] 10:30:00 10:30:00 [facility] [employer] [facility] Results This patient has no known results.
[2021-04-19 19:58] LABS: Urine Blood Trace-intact (Negative); Urine Glucose Negative (Negative); Urine Protein Negative (Negative); Urine Specific Gravity >=1.030 (1.005-1.030); Urine pH 5.5 (5.0-7.0)
[2021-04-19] MEDS ORDERED: KETOROLAC 30 MG/ML INJ ONE (20:10)
--- NOTE | 2021-04-19 20:55 | RAD REPORT ---
EXAM DESCRIPTION: CT - Stone Protocol - 04/19/2021 8:33 pm CLINICAL HISTORY: Flank pain. FLANK PAIN COMPARISON: Stone Protocol dated 07/15/2018 TECHNIQUE: Axial images were obtained without oral or IV contrast. Lack of contrast limits solid org an and vascular assessment. The haxmv-gq-kwui spans the entirety of the system partially obscuring uppermost abdomen and lung bases. Coronal reformatted images were obtained and reviewed. All CT scans are performed using dose optimization technique as appropriate and may include automated exposure control or mA/KV adjustment according to patient size. FINDINGS: The lower lung callejas are clear. Imaged portions of the liver and spleen show no suspicious findings on non-contrast imaging.Small low -density liver lesions are stable since comparative CT. The pancreas and adrenal glands are normal. N o pathologic lymphadenopathy in the abdomen or pelvis. 5 mm stone is present mid-pole left kidney. Punctate stone is noted mid-pole right kidney. No hydrone phrosis. No bowel obstruction, free air, free fluid or abscess. Normal appendix noted. No significant bony abnormality. IMPRESSION: Bilateral nephrolithiasis without hydronephrosis. Mild lower lumbar degenerative spondylosis.
--- NOTE | 2021-04-19 21:20 | EDPHYS ---
Physician Documentation [facility] Name: Joanna Lim Age: 51 yrs Sex: Female : 1970 Arrival Date: 04/19/2021 Time: 18:42 Bed 19 Private MD: ED Physician Meir Lara HPI: 04/20 05:37 This 51 yrs old Black Female presents to ER via Ambulatory with complaints of Back Pain.tw4 05:37 The patient presents with pain that is chronic, with no known mechanism of injury. The tw4 symptoms are located in the low back. Onset: The symptoms/episode began/occurred 6 month(s) ago, and became worse 4 day(s) ago. The pain does not radiate. Associated signs and symptoms: The patient has no apparent associated signs or symptoms. The problem was sustained from unknown cause. Modifying factors: The patient symptoms are alleviated by nothing, the patient symptoms are aggravated by lifting, movement. Severity of symptoms: At their worst the symptoms were mild, in the emergency department the symptoms are unchanged. The patient has experienced similar episodes in the past, several times. Historical: - Allergies: 04/19 18:47 PENICILLINS; hb - Home Meds: 18:47 Cyclobenzaprine Oral [Active]; Tramadol Oral [Active]; hb - PMHx: 18:47 "Thyroid Problem"; hb - Immunization history:: Client reports having NOT received the Covid vaccine. - Social history:: Smoking status: Patient denies any tobacco usage or history of. ROS: 04/20 05:37 Constitutional: Negative for fever, chills, and weight loss, Eyes: Negative for injury, tw4 pain, redness, and discharge, Cardiovascular: Negative for chest pain, palpitations, and edema, Respiratory: Negative for shortness of breath, cough, wheezing, and pleuritic chest pain, Abdomen/GI: Negative for abdominal pain, nausea, vomiting, diarrhea, and constipation, MS/Extremity: Negative for injury and deformity, Skin: Negative for injury, rash, and discoloration, Neuro: Negative for headache, weakness, numbness, tingling, and seizure. Back: Positive for decreased range of motion, pain at rest, pain with movement, Negative for injury or acute deformity, radiated pain. Exam: 05:37 Constitutional: This is a well developed, well nourished patient who is awake, alert, tw4 and in no acute distress. Head/Face: Normocephalic, atraumatic. Chest/axilla: Normal chest wall appearance and motion. Nontender with no deformity. No lesions are appreciated. Cardiovascular: Regular rate and rhythm with a normal S1 and S2. No gallops, murmurs, or rubs. Normal PMI, no JVD. No pulse deficits. Respiratory: Lungs have equal breath sounds bilaterally, clear to auscultation and percussion. No rales, rhonchi or wheezes noted. No increased work of breathing, no retractions or nasal flaring. Abdomen/GI: Soft, non-tender, with normal bowel sounds. No distension or tympany. No guarding or rebound. No evidence of tenderness throughout. 05:37 Skin: Warm, dry with normal turgor. Normal color with no rashes, no lesions, and no evidence of cellulitis. MS/ Extremity: Pulses equal, no cyanosis. Neurovascular intact. Full, normal range of motion. Neuro: Awake and alert, GCS 15, oriented to person, place, time, and situation. Cranial nerves II-XII grossly intact. Motor strength 5/5 in all extremities. Sensory grossly intact. Cerebellar exam normal. Normal gait. 05:37 Back: pain, that is mild, ROM is normal, normal spinal alignment noted. Vital Signs: 04/19 18:45 BP 146 / 97; Pulse 91; Resp 16; Temp 98; Pulse Ox 100% on R/A; Pain 8/10; hb 19:22 BP 139 / 92; Pulse 87; Resp 18; Pulse Ox 99% on R/A; lh3 21:55 BP 138 / 82; Pulse 73; Resp 18; Pulse Ox 99% on R/A; lh3 MDM: 21:19 Patient medically screened. tw4 04/20 05:37 Differential diagnosis: arthritis, chronic back pain, Fatigue Joint Injury Ligament tw4 Injury Osteoarthritis Pyelonephritis Ureterolithiasis. Data reviewed: vital signs, nurses notes. Data interpreted: Pulse oximetry: Interpretation: normal. Counseling: I had a detailed discussion with the patient and/or guardian regarding: the historical points, exam findings, and any diagnostic results supporting the discharge/admit diagnosis, lab results, radiology results. Special discussion: I discussed with the patient/guardian in detail that at this point there is no indication for admission to the hospital. It is understood, however, that if the symptoms persist or worsen the patient needs to return immediately for re-evaluation. 04/19 19:57 Order name: Urine Dipstick-Ancillary [facility] 04/19 19:43 Order name: Urine Dipstick-Ancillary (obtain specimen); Complete Time: 20:06 tw4 04/19 20:01 Order name: CT Stone Protocol; Complete Time: 20:56 tw4 Administered Medications: 04/19 19:47 Drug: Ketorolac 60 mg Route: IM; Site: right gluteus; lh3 Disposition Summary: 04/19/21 21:19 Discharge Ordered Location: Home tw4 Problem: new tw4 Symptoms: have improved tw4 Condition: Stable tw4 Diagnosis - Chronic back pain tw4 - Other intervertebral disc disorders, lumbar region tw4 - Calculus of kidney tw4 Followup: tw4 - With: Private Physician - When: Upon discharge from the Emergency Department - Reason: Recheck today's complaints, Continuance of care, Re-evaluation by your physician Followup: tw4 - With: Rhonda Rodríguez MD - When: Upon discharge from the Emergency Department - Reason: Recheck today's complaints, Continuance of care, Re-evaluation by your physician Followup: tw4 - With: Mendel Mercedes MD - When: Upon discharge from the Emergency Department - Reason: Recheck today's complaints, Continuance of care, Re-evaluation by your physician Followup: tw4 - With: Abdi Restrepo DO - When: Upon discharge from the Emergency Department - Reason: Recheck today's complaints, Continuance of care, Re-evaluation by your physician Discharge Instructions: - Discharge Summary Sheet tw4 - Chronic Back Pain tw4 - Degenerative Disk Disease tw4 - Kidney Stones tw4 Forms: - Medication Reconciliation Form tw4 - Thank You Letter tw4 - Antibiotic Education tw4 - Prescription Opioid Use tw4 Prescriptions: - Tramadol 50 mg Oral Tablet - take 1 tablet by ORAL route every 8 hours as needed; 12 tablet; Refills: 0, tw4 Product Selection Permitted - Lidoderm 5 % Topical adhesive patch,medicated - apply 2 patch by TRANSDERMAL route once daily; 1 patch; Refills: 0, Product tw4 Selection Permitted Signatures: Dispatcher [employer] Liyah Simpson, RN RN hb Meir Lara MD MD tw4 Maya Cline RN RN lh3
--- NOTE | 2021-04-19 21:20 | ER ---
Nurse's Notes [facility] Name: Joanna Lim Age: 51 yrs Sex: Female : 1970 Arrival Date: 04/19/2021 Time: 18:42 Bed 19 Private MD: Diagnosis: Chronic back pain;Other intervertebral disc disorders, lumbar region;Calculus of kidney Presentation: 04/19 18:45 Chief complaint: Chronic low back pain, today pain is 8/10. Sees pain management, has hb not taken her muscle relaxers today. Coronavirus screen: At this time, the client does not indicate any symptoms associated with coronavirus-19. Ebola Screen: No symptoms or risks identified at this time. Risk Assessment: Do you want to hurt yourself or someone else? Patient reports no desire to harm self or others. Onset of symptoms is unknown. 18:45 Method Of Arrival: Ambulatory hb 18:45 Acuity: JAYSHREE 4 hb 21:56 Initial Sepsis Screen: Does the patient meet any 2 criteria? No. Patient's initial 3 sepsis screen is negative. Does the patient have a suspected source of infection? No. Patient's initial sepsis screen is negative. Historical: - Allergies: 18:47 PENICILLINS; hb - Home Meds: 18:47 Cyclobenzaprine Oral [Active]; Tramadol Oral [Active]; hb - PMHx: 18:47 "Thyroid Problem"; hb - Immunization history:: Client reports having NOT received the Covid vaccine. - Social history:: Smoking status: Patient denies any tobacco usage or history of. Screenin:22 Abuse screen: Denies threats or abuse. Nutritional screening: No deficits noted. 3 Tuberculosis screening: No symptoms or risk factors identified. Fall Risk None identified. Assessment: 19:22 General: Appears in no apparent distress. Behavior is calm, cooperative, appropriate lh3 for age. Pain: Complains of pain in left mid back and right mid back. 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 Gait is steady, Speech is normal, Facial symmetry appears normal. 21:56 Reassessment: Patient states feeling better. 3 Vital Signs: 18:45 BP 146 / 97; Pulse 91; Resp 16; Temp 98; Pulse Ox 100% on R/A; Pain 8/10; hb 19:22 BP 139 / 92; Pulse 87; Resp 18; Pulse Ox 99% on R/A; lh3 21:55 BP 138 / 82; Pulse 73; Resp 18; Pulse Ox 99% on R/A; 3 ED Course: 18:42 Patient arrived in ED. rg4 18:47 Triage completed. hb 18:47 Arm band placed on. hb 19:13 Meir Lara MD is Attending Physician. tw4 19:14 Maya Cline, RN is Primary Nurse. lh3 19:22 Patient has correct armband on for positive identification. Bed in low position. Call 3 light in reach. Side rails up X 1. 19:22 No provider procedures requiring assistance completed. 3 20:33 CT Stone Protocol In Process Unspecified. EDMS 21:20 Rhonda Rodríguez MD is Referral Physician. tw4 21:20 Mendel Mercedes MD is Referral Physician. tw4 21:20 Abdi Restrepo DO is Referral Physician. tw4 21:56 Patient did not have IV access during this emergency room visit. 3 Administered Medications: 19:47 Drug: Ketorolac 60 mg Route: IM; Site: right gluteus; 3 Outcome: 21:19 Discharge ordered by . tw4 21:56 Discharged to home ambulatory. 3 21:56 Condition: good 21:56 Discharge instructions given to patient, Instructed on discharge instructions, follow up and referral plans. medication usage, Demonstrated understanding of instructions, follow-up care, medications, Prescriptions given X 1. 21:57 Patient left the ED. 3 Signatures: Dispatcher [employer] EDNH Liyah Arnold, RN RN Shannon Oliver 4 Meir Lara MD MD [facility] Maya Cline RN RN 3
[2021-04-19 22:12] VITALS: TEMP 98
[2021-04-19 22:14] VITALS: O2SAT 99
[2021-04-19 22:15] VITALS: BP 138/82
== END 2021-04-19 21:57 | disposition home or self-care (01) ==
LOC: ER 18:40
DX: N20.0 Calculus of kidney (principal); M51.86 Other intervertebral disc disorders, lumbar region; E07.9 Disorder of thyroid, unspecified; Z88.0 Allergy status to penicillin
CPT/HCPCS: 74176; 76377; 81003; 96372; 99283

== ENCOUNTER 2021-06-13 18:40 | Emergency (ER) | payer OTHER ==
[2021-06-13] MEDS ORDERED: MORPHINE 4 MG/ML SYR ONE (20:04)
[2021-06-13] MEDS ORDERED: ONDANSETRON 4 MG/2 ML VIAL ONE (20:05)
[2021-06-13] MEDS ORDERED: NA CHLORIDE 0.9% 2,000 ML ONE (20:05)
[2021-06-13 20:10] LABS: Urine Blood 2+ (Negative); Urine Glucose Negative (Negative); Urine Protein Negative (Negative); Urine Specific Gravity >=1.030 (1.005-1.030)
[2021-06-13 20:12] LABS: Absolute Lymphocytes (CBC) 2.6 K/uL (0.7-4.9); Basophils % 0.8 % (0-1.3); Lymphocytes % 28.6 % (15.3-44.8); MPV 8.4 fL (7.6-11.3)
[2021-06-13 20:23] LABS: Sodium Level 145 mmol/L (136-145)
[2021-06-13 20:24] LABS: Albumin 3.9 g/dL (3.4-5.0); BUN Blood Urea Nitrogen 18 mg/dL (7-18); Bicarbonate 31 mmol/L (21-32); Glucose Level 80 mg/dL (74-106); Lipase 108 U/L (73-393)
[2021-06-13 20:25] LABS: Potassium 4.6 mmol/L (3.5-5.1)
[2021-06-13 20:39] LABS: ALT/SGPT 17 U/L (12-78); Alkaline Phosphatase 85 U/L (45-117); Bilirubin Direct < 0.1 mg/dL (0-0.2); Bilirubin Total 0.4 mg/dL (0.2-1.0); Troponin (Emerg Dept Use Only) < 0.02 ng/mL (0.0-0.045)
[2021-06-13 20:41] LABS: AST/SGOT 16 U/L (15-37)
--- NOTE | 2021-06-13 21:39 | RAD REPORT ---
EXAM DESCRIPTION: US - Abdomen Exam Limited - 06/13/2021 9:18 pm CLINICAL HISTORY: ABD PAIN COMPARISON: Stone Protocol dated 04/19/2021 FINDINGS: The gallbladder demonstrates no gallstones. No pericholecystic fluid or gallbladder wall t hickening. The common bile duct is normal measuring 3 mm. The liver demonstrates no findings of intrahepatic biliary dilatation. IMPRESSION: Unremarkable examination. Negative for cholelithiasis or acute cholecystitis.
--- NOTE | 2021-06-13 22:06 | RAD REPORT ---
EXAM DESCRIPTION: CTAbdomen Pelvis W Contrast - 06/13/2021 9:57 pm CLINICAL HISTORY: ABD PAIN COMPARISON: Stone Protocol dated 04/19/2021 TECHNIQUE: CT of the abdomen and pelvis was performed. All CT scans are performed using dose optimization technique as appropriate and may include automated exposure control or mA/KV adjustment according to patient size. FINDINGS: Lower chest: No acute abnormality. Liver: Multiple low-density liver lesions which are incompletely characterized but favored benign. Th ere is a flash fill hemangioma in the right hepatic lobe measuring 9 millimeters. Biliary: No biliary ductal dilatation. Stomach: No significant focal abnormality. Duodenum: No significant focal abnormality. Pancreas: No significant abnormality. Spleen: No significant abnormality. Adrenal: No suspicious lesions. Kidney/ureter: No hydronephrosis. Nonobstructive bilateral nephrolithiasis. Retroperitoneum: No retroperitoneal adenopathy. Vascular: No aneurysm. Bowel: No significant focal abnormality. Normal appendix. Peritoneum: No ascites or free air. Bladder: Grossly unremarkable. Reproductive: No adnexal masses. Hysterectomy Bones: No acute fracture. Multilevel degenerative changes are present in the spine. Other: n/a IMPRESSION: No acute intra-abdominal or pelvic finding. Bilateral nonobstructive nephrolithiasis. No rmal appendix.
--- NOTE | 2021-06-13 23:14 | EDPHYS ---
Physician Documentation [facility] Name: Joanna Lim Age: 51 yrs Sex: Female : 1970 Arrival Date: 06/13/2021 Time: 18:46 Bed 15 Private MD: ED Physician Pino Barber HPI: 06/13 19:49 This 51 yrs old Black Female presents to ER via Ambulatory with complaints of Abdominal pkl Pain, Back Pain. 19:49 The patient presents with abdominal pain in the epigastric area. Onset: The pkl symptoms/episode began/occurred just prior to arrival, 3 hour(s) ago. The symptoms radiate to mid back. 19:51 Associated signs and symptoms: none. 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 - Social history:: Smoking status: Patient denies any tobacco usage or history of. ROS: 19:51 Eyes: Negative for injury, pain, redness, and discharge, ENT: Negative for injury, pkl pain, and discharge, Neck: Negative for injury, pain, and swelling, Cardiovascular: Negative for chest pain, palpitations, and edema, Respiratory: Negative for shortness of breath, cough, wheezing, and pleuritic chest pain. 19:51 Abdomen/GI: Positive for abdominal pain, of the epigastric area. 19:51 Back: Positive for pain at rest, of the mid back. 19:51 : Negative for urinary symptoms. 19:51 MS/extremity: Negative for acute changes. 19:51 Skin: Negative for rash. 19:51 Neuro: Negative for altered mental status, loss of consciousness. Exam: 19:51 Head/Face: Normocephalic, atraumatic. Eyes: Pupils equal round and reactive to light, pkl extra-ocular motions intact. Lids and lashes normal. Conjunctiva and sclera are non-icteric and not injected. Cornea within normal limits. Periorbital areas with no swelling, redness, or edema. ENT: Nares patent. No nasal discharge, no septal abnormalities noted. Tympanic membranes are normal and external auditory canals are clear. Oropharynx with no redness, swelling, or masses, exudates, or evidence of obstruction, uvula midline. Mucous membranes moist. Neck: Trachea midline, no thyromegaly or masses palpated, and no cervical lymphadenopathy. Supple, full range of motion without nuchal rigidity, or vertebral point tenderness. No Meningismus. Chest/axilla: Normal chest wall appearance and motion. Nontender with no deformity. No lesions are appreciated. Cardiovascular: Regular rate and rhythm with a normal S1 and S2. No gallops, murmurs, or rubs. Normal PMI, no JVD. No pulse deficits. Respiratory: Lungs have equal breath sounds bilaterally, clear to auscultation and percussion. No rales, rhonchi or wheezes noted. No increased work of breathing, no retractions or nasal flaring. 19:51 Abdomen/GI: Bowel sounds: normal, Palpation: soft, mild abdominal tenderness, in the epigastric area. 19:51 Back: pain, that is moderate, of the mid back, mild swelling noted. 19:51 : Exam negative for acute changes. 19:51 Musculoskeletal/extremity: Exam is negative for acute changes. 19:51 Skin: Exam negative for rash. 19:51 Neuro: Orientation: is normal, Mentation: is normal, Cranial nerves: grossly normal, Motor: is normal. Vital Signs: 19:06 BP 144 / 88; Pulse 67; Resp 18; Temp 97.6; Pulse Ox 100% ; Weight 92.53 kg; Height 5 vg1 ft. 8 in. (172.72 cm); Pain 7/10; 20:00 BP 113 / 60; Pulse 67; Resp 20; Pulse Ox 97% on R/A; Pain 1/10; dc2 21:00 BP 124 / 68; Pulse 68; Resp 17; Pulse Ox 98% on R/A; Pain 0/10; dc2 22:00 BP 134 / 76; Pulse 65; Resp 18; Pulse Ox 99% ; Pain 2/10; dc2 23:02 BP 153 / 80; Pulse 84; Resp 17; Temp 98.0; Pulse Ox 98% ; Pain 5/10; dc2 19:06 Body Mass Index 31.02 (92.53 kg, 172.72 cm) vg1 MDM: 19:38 Patient medically screened. pkl 23:07 Data reviewed: vital signs, nurses notes, lab test result(s), EKG, radiologic studies, pkl CT scan. ED course: Patient feeling better. Not in any distress. Discussed lab, EKG and imaging studies patient. Advised to follow up with PCP in 2 to 3 days. To return if necessary. Patient understood instructions. 06/13 19:47 Order name: Basic Metabolic Panel; Complete Time: 20:45 pkl 06/13 19:47 Order name: CBC with Diff; Complete Time: 20:45 pkl 06/13 19:47 Order name: Hepatic Function; Complete Time: 20:45 pkl 06/13 19:47 Order name: Lipase; Complete Time: 20:45 pkl 06/13 19:48 Order name: Troponin (emerg Dept Use Only); Complete Time: 20:45 pkl 06/13 20:10 Order name: Urine Dipstick-Ancillary; Complete Time: 20:45 EDMS 06/13 19:47 Order name: IV Saline Lock pkl 06/13 19:48 Order name: EKG; Complete Time: 19:49 pkl 06/13 20:13 Order name: US Abdomen Limited; Complete Time: 21:42 pkl 06/13 21:41 Order name: CT Abd/Pelvis - IV Contrast Only; Complete Time: 22:54 pkl 06/13 19:47 Order name: Labs collected and sent pkl 06/13 19:48 Order name: Urine Dipstick-Ancillary (obtain specimen); Complete Time: 20:25 pkl Administered Medications: 20:00 Drug: NS 0.9% 1000 ml Route: IV; Rate: 1000 ml; Infused Over: 1 hrs; Site: left dc2 antecubital; 23:23 Follow up: IV Status: Completed infusion; IV Intake: 1000ml dc2 20:00 Drug: NS 0.9% 1000 ml Route: IV; Rate: 125 ml/hr; Site: left antecubital; dc2 23:23 Follow up: IV Status: Order to discontinue infusion; IV Intake: 200ml dc2 20:00 Drug: Zofran (Ondansetron) 4 mg Route: IVP; Site: left antecubital; dc2 20:20 Follow up: Response: Nausea is decreased dc2 20:05 Drug: morphine 4 mg Route: IVP; Site: left antecubital; dc2 20:20 Follow up: Response: Pain is decreased dc2 Disposition Summary: 06/13/21 23:14 Discharge Ordered Location: Home pkl Problem: new pkl Symptoms: have improved pkl Condition: Stable pkl Diagnosis - Abbominal pain pkl Followup: pkl - With: Private Physician - When: 2 - 3 days - Reason: Re-evaluation by your physician Discharge Instructions: - Discharge Summary Sheet pkl Forms: - Medication Reconciliation Form pkl - Thank You Letter pkl - Antibiotic Education pkl - Prescription Opioid Use pkl Prescriptions: - Protonix 40 mg Oral tablet,delayed release (DR/EC) - take 1 tablet by ORAL route once daily; 15 tablet; Refills: 0, Product pkl Selection Permitted Signatures: Dispatcher [employer] Pino Kennedy MD MD pkl Carmen Oliver RN RN vg1 Ana Terry RN RN dc2
--- NOTE | 2021-06-13 23:14 | ER ---
Nurse's Notes [facility] Name: Joanna Lim Age: 51 yrs Sex: Female : 1970 Arrival Date: 06/13/2021 Time: 18:46 Bed 15 Private MD: Diagnosis: Abbominal pain Presentation: 06/13 19:06 Chief complaint: Patient states: About three hours ago pt states epigastric day and vg1 took two tums. Stated 'after a while' the pain would radiate to the back. Pt states that back feels swollen and is tender to touch. Denies NVD. Coronavirus screen: Vaccine status: Patient reports being unvaccinated. Client denies travel out of the [place] in the last 14 days. Ebola Screen: Patient negative for fever greater than or equal to 101.5 degrees Fahrenheit, and additional compatible Ebola Virus Disease symptoms. Initial Sepsis Screen: Does the patient meet any 2 criteria? No. Patient's initial sepsis screen is negative. Does the patient have a suspected source of infection? No. Patient's initial sepsis screen is negative. Risk Assessment: Do you want to hurt yourself or someone else? Patient reports no desire to harm self or others. Onset of symptoms was June 13, 2021. 19:06 Method Of Arrival: Ambulatory vg1 19:06 Acuity: JAYSHREE 3 vg1 Triage Assessment: 19:08 General: Appears in no apparent distress. uncomfortable, Behavior is cooperative. Pain: vg1 Complains of pain in back and epigastric area. GI: Abdomen is round. 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 - Social history:: Smoking status: Patient denies any tobacco usage or history of. Screenin:00 Abuse screen: Denies threats or abuse. Denies injuries from another. Nutritional dc2 screening: No deficits noted. Tuberculosis screening: No symptoms or risk factors identified. Never had TB. Fall Risk None identified. No fall in past 12 months (0 pts). No secondary diagnosis (0 pts). No IV (0 pts). Ambulatory Aid- None/Bed Rest/Nurse Assist (0 pts). Gait- Normal/Bed Rest/Wheelchair (0 pts) Mental Status- Oriented to own ability (0 pts). Total Vicente Fall Scale indicates No Risk (0-24 pts). Assessment: 19:39 Reassessment: Pt ambulate to room 15 with steady gait and triage nurse. dc2 19:46 Reassessment: Pt to bathroom for urine sample. Upon return instructed on poc re blood , dc2 iv, scans . Verbalize understaning. General: Appears in no apparent distress. uncomfortable, Behavior is calm, cooperative. Pain: Complains of pain in Right back, epigastric , upper abdominal pain Pain currently is 8 out of 10 on a pain scale. Quality of pain is described as throbbing, Pain began 4 hours ago. Has chronic back pain but this pain today is more towards the posterior right side , swelling can be felt and observed to right posterior middle back. Extremely tender to touch, epigastric pain started this afternoon. Neuro: No deficits noted. Level of Consciousness is awake, alert, obeys commands, Oriented to person, place, time, situation, Denies blurred vision headache. Cardiovascular: No deficits noted. Bruits present. Respiratory: No deficits noted. Airway is patent Breath sounds are clear bilaterally. GI: No deficits noted. No signs and/or symptoms were reported involving the gastrointestinal system. Bowel sounds present X 4 quads. Abd is soft and non tender Abdomen is tender to palpation in upper abdomen and epigastric area. : No deficits noted. No signs and/or symptoms were reported regarding the genitourinary system. Urine is clear. Derm: No deficits noted. No signs and/or symptoms reported regarding the dermatologic system. Musculoskeletal: No deficits noted. No signs and/or symptoms reported regarding the musculoskeletal system. Vital Signs: 19:06 BP 144 / 88; Pulse 67; Resp 18; Temp 97.6; Pulse Ox 100% ; Weight 92.53 kg; Height 5 vg1 ft. 8 in. (172.72 cm); Pain 7/10; 20:00 BP 113 / 60; Pulse 67; Resp 20; Pulse Ox 97% on R/A; Pain 1/10; dc2 21:00 BP 124 / 68; Pulse 68; Resp 17; Pulse Ox 98% on R/A; Pain 0/10; dc2 22:00 BP 134 / 76; Pulse 65; Resp 18; Pulse Ox 99% ; Pain 2/10; dc2 23:02 BP 153 / 80; Pulse 84; Resp 17; Temp 98.0; Pulse Ox 98% ; Pain 5/10; dc2 19:06 Body Mass Index 31.02 (92.53 kg, 172.72 cm) vg1 ED Course: 18:46 Patient arrived in ED. mr 19:08 Triage completed. vg1 19:08 Arm band placed on. vg1 19:38 Pino Barber MD is Attending Physician. pkl 19:39 Ana Terry RN is Primary Nurse. dc2 19:50 Patient has correct armband on for positive identification. Allergy band placed. Placed dc2 in gown. Bed in low position. Call light in reach. Side rails up X 1. tin recovery worker on. Pulse ox on. NIBP on. Door closed. Lights dimmed. 20:00 Inserted saline lock: 20 gauge in left antecubital area, using aseptic technique. dc2 20:56 ultrasound at bedside. dc2 21:18 US Abdomen Limited In Process Unspecified. EDMS 21:30 No provider procedures requiring assistance completed. dc2 21:[address] via stretcher. dc2 21:57 CT Abd/Pelvis - IV Contrast Only In Process Unspecified. EDMS 22:09 Patient moved back from CT. dc2 22:32 No apparent distress. Resting quietly. Awaiting lab results, Awaiting radiology results.dc2 23:22 IV discontinued, intact, bleeding controlled, No redness/swelling at site. Pressure dc2 dressing applied. Administered Medications: 20:00 Drug: NS 0.9% 1000 ml Route: IV; Rate: 1000 ml; Infused Over: 1 hrs; Site: left dc2 antecubital; 23:23 Follow up: IV Status: Completed infusion; IV Intake: 1000ml dc2 20:00 Drug: NS 0.9% 1000 ml Route: IV; Rate: 125 ml/hr; Site: left antecubital; dc2 23:23 Follow up: IV Status: Order to discontinue infusion; IV Intake: 200ml dc2 20:00 Drug: Zofran (Ondansetron) 4 mg Route: IVP; Site: left antecubital; dc2 20:20 Follow up: Response: Nausea is decreased dc2 20:05 Drug: morphine 4 mg Route: IVP; Site: left antecubital; dc2 20:20 Follow up: Response: Pain is decreased dc2 Intake: 23:23 IV: 200ml; Total: 200ml. dc2 23:23 IV: 1000ml; Total: 1200ml. dc2 Outcome: 23:14 Discharge ordered by . zuleika 23:22 Discharged to home ambulatory. dc2 23:22 Condition: stable 23:22 Discharge instructions given to Instructed on discharge instructions, follow up and referral plans. Demonstrated understanding of instructions, follow-up care. 23:24 Patient left the ED. dc2 Signatures: Dispatcher [employer] Pino Kennedy MD MD pkl Rivera, Mary Benito, Carmen, RN RN vg1 Ana eTrry RN RN dc2
[2021-06-13 23:40] VITALS: BP 153/80; TEMP 98; O2SAT 98
--- NOTE | 2021-06-15 18:28 | EKG ---
Test Date: 2021-06-13 Test Time: 20:07:27 Glove Brusher: ZACHARIAH MEASUREMENT RESULTS: Intervals: Rate: 76 ID: [id number] QRSD: 72 QT: 376 QTc: 423 [place]: P: 36 ID: [id number] QRS: 2 T: 39 INTERPRETIVE STATEMENTS: Normal sinus rhythm Normal ECG Compared to ECG 10/08/2018 06:32:37 Myocardial infarct finding no longer present Electronically Signed On 06-15-21 18:24:02 WOOLEN SUITING SHRINKER by Romel Green
--- OUTSIDE RECORDS SUMMARY | 2021-06-20 14:45 | XMS REPORT | Continuity of Care Document ---
:1970 Author Organization [facility] t Address [address] [place] [address] Support Name Relationship Address Phone Sedrick Unavailable [address] [phone] [place] [address] Sedrick Unavailable [address] [phone] [place] [address] SEDRICK, N E [address] [place] [address] OPAL, L Relative [address] [place] [address] L Ruiz Relative [address] [place] [address] N Sedrick Child [address] [place] [address] Ruiz Other [address] [place] [address] Care Team Providers Name Role Phone Norma VELEZ Primary Care Physician Unavailable BROWN, Gilma Attending Clinician Unavailable Brown LOPEZ, H Attending Clinician Jaycee DNP, [facility] N Attending Clinician Doctor Unassigned, Name Attending Clinician Unavailable Payers Payer Name Policy Type Policy Number Effective Date Expiration Date S [place] [employer] [id number] 2019 HEALTH 00:00:00 Problems Condition Condition Condition Status Onset Resolution Last Treating Co mments Source Name Details Category Date Date Treatment Clinician Date CHRONIC Diagnosis Active 2019-02-01 Me moria SDH 3-03 10:05:00 l CHRONIC 00:00: Carlos SDH 00 Active 10/08/2018 [facility] NON Diagnosis Active 2018-10-08 Mem oria SUBACUTE 3-03 10:22:00 l TRAUMATIC NON 00:00: Carlos SUBDURAL SUBACUTE 00 HEMATOMA TRAUMATIC SUBDURAL HEMATOMA Active 10/08/2018 [facility] Status Status Disease Active Univers post post 2 ity of vaginal vaginal 00:00: [place] hysterecto hysterecto 00 Me dical my my Branch Post-opera Post-opera Disease Active U nivers tive state tive state 09-30 it y of 00:00: [place] [facility] Uterine Uterine Disease Active Univers polyp polyp 1-05 ity of 00:00: [place] 00 Medical Branch Goiter Goiter Disease Active 2014-08 Univers 0-07 ity of 00:00: [place] 00 Medical [facility] Simple Problem Active 2019-04-08 Memor ia obesity 00:24:36 l (disorder) Simple Herm ree obesity (disorder) Active Problem 04/08/2019 [facility], OPID Carlos, OPID [place] NONTRAUMAT Diagnosis Active 2019-02-01 Memoria IC CHRONIC 10:05:00 l SUBDURAL [place] HEMORRHAGE NONTRAUMAT IC CHRONIC SUBDURAL HEMORRHAGE Active [facility] Allergies, Adverse Reactions, Alerts Allergy Allergy Status Severity Reaction(s) Onset Inactive Treating Comm ents Source Name Type Date Date Clinician PENICILL Drug Active Other-Cmnt 2014-08 Univ ers INS Class 0-07 ity of 00:00: [place] 00 Medical Branch Penicill Propensi Active Other - See 2014-08 Childhoo d Univers ins ty to comments 0-07 allergy ity of adverse 00:00: [place] reaction 00 Medical s Branch Penicill Adverse Active hives [facility] penicill penicill Active Memori a in in l [place] Social History Social Habit Start Date Stop Date Quantity Comments Source Exposure to Not sure [facility] SARS-CoV-2 (event) Medica l Branch Alcohol intake 2021-06-05 2021-06-05 0 /d [facility] 00:00:00 00:00:00 Medical Branch Sex [birth year] [facility] [place] 00:00:00 00:00:00 Medical Branch Smoking Status Start Date Stop Date Source Never smoker [facility] Medical Branch Medications Ordered Filled Start Stop Current Ordering Indication Dosage Frequency Signature Comments Components Source Medication Medication Date Date Medication? Clinician (SIG) Name Name NAPROXEN 2020-08 Yes 1{tbl} Take 1 Unive rs ORAL 0-29 tablet by ity of 10:13: mouth. [place] [id number] [facility] [place] DULoxetine 2020-08 Yes 20mg Take 20 mg U nivers 20 mg 0-29 by mouth ity of capsule 10:13: daily. [address] traMADoL 2019-08 Yes [id number] 50mg Take 1 Univers (ULTRAM) 50 2-02 tablet by ity of mg tablet 00:00: mouth [place] 00 every 6 Medical (six) Branch hours as needed for Pain (scale 7-10). Indication s: acute pain methocarbam 2019-08 Yes [id number] 750mg Take 1 Univers oL 750 mg 2-02 tablet by ity o f tablet 00:00: mouth [place] 00 every 6 Medical (six) Branch hours as needed (MUSCLE SPASM). Nitrofurant 2019-08- No [id number] 100mg Take 1 Univers oin&Nit. 2-02 10- capsule by ity of Macrocryst 00:00: 00:00 mouth 2 Alli as (MACROBID) 00 :00 (two) Medical 100 mg times Branch capsule daily. cetirizine Yes [id number] 10mg Take 1 Univers 10 mg 3-16 tablet by ity of tablet 00:00: mouth [place] 00 daily. Medical Branch fluticasone Yes [id number] 2{spray Use 2 Univers propionate 3-16 } Sprays in ity of 50 00:00: each [place] mcg/actuati 00 nostril Medic al on nasal daily. Branch spray bromphenira 2020- No [id number] 5mL Take 5 mL Univers mine-pseudo 3-16 -29 by mouth 3 i ty of ephedrine-D 00:00[place]three[place] (BROMFED 00 :00 times Medical DM) 2-30-10 daily as Bran ch mg/5 mL needed for syrup Cold symptoms. ciprofloxac 2020- No [id number] 500mg Take 1 Univers in HCl 6-27 10-29 tablet by ity of (CIPRO) 500 00:00: 00:00 [place] mg tablet 00 :00 SEE-INSTRU Medi calderon CTIONS. 1 Branch PO BID x 3 days when UTI symptoms begin methocarbam 2019- Yes 500 mg = 1 Memoria ol 500 mg 3-06 tab, PO, l oral tablet 15:24: Q8H, X 5 He rm day, # 15 tab, 0 Refill(s) Levetiracet 2019-0 Yes 500 mg = 1 Memoria am 500 MG 3-06 tab, PO, l Oral Tablet 15:24: Q12H, # 6 H ermann 00 tab, 0 Refill(s) Albuterol 2019-0 Yes 3 mL, NEB, Me moria 0.833 MG/ML 3-06 RQ4H, PRN l / 15:24: Wheezing, [place] Ipratropium 00 0 [place] Refill(s) 0.167 MG/ML Inhalant Solution Acetaminoph Yes 100.4 F, M emoria en 325 MG 3-06 0 l Oral Tablet 15:24: Refill(s) H erm methocarbam Yes 500 mg = 1 Memoria ol 500 mg 3-06 tab, PO, l oral tablet 15:24: Q8H, X 5 He rm day, # 15 tab, 0 Refill(s) Levetiracet 2019-0 Yes 500 mg = 1 Memoria am 500 MG 3-06 tab, PO, l Oral Tablet 15:24: Q12H, # 6 H ermann 00 tab, 0 Refill(s) Albuterol 2019-0 Yes 3 mL, NEB, Me moria 0.833 MG/ML 3-06 RQ4H, PRN l / 15:24: Wheezing, Carlos Ipratropium 00 0 [place] Refill(s) 0.167 MG/ML Inhalant Solution Acetaminoph Yes 100.4 F, M emoria en 325 MG 3-06 0 l Oral Tablet 15:24: Refill(s) H erm Bisacodyl No Notes: Memori a 3-05 (Same As: l 20:47: Dulcolax, Carlos 00 Bisco-Lax) Bisacodyl No Notes: Memori a 3-05 (Same As: l 20:47: Dulcolax, Carlos 00 Bisco-Lax) Tramadol No Notes: Not Mem oria 3-05 to exceed l 19:56: 400mg/day. Richardson 00 (Same As: Ultram) Tramadol No Notes: Not Mem oria 3-05 to exceed l 19:56: 400mg/day. Carlos 00 (Same As: Ultram) heparin No Notes: Memoria 3-05 porcine l 05:55: heparin [place] heparin No Notes: Memoria 3-05 porcine l 05:55: heparin [place] remove No 1 patch, Memoria patch 3-05 Route: l 03:00: TOP, Richardson 00 Bedtime, Drug form: ERFILM, Start date: 10/09/18 21:00:00 HEALTH/SAFETY JOB TITLES, Duration: 30 day, Stop date: 11/07/18 21:00:00 CDT remove No 1 patch, Memoria patch 305 Route: l 03:00: TOP, Richardson 00 Bedtime, Drug form: ERFILM, Start date: 10/09/18 21:00:00 HEALTH/SAFETY JOB TITLES, Duration: 30 day, Stop date: 11/07/18 21:00:00 CDT Robaxin No Notes: Memoria 3-04 (Same l 19:00: as:Robaxin [place] 00 ) Robaxin No Notes: Memoria 3-04 (Same l 19:00: as:Robaxin [place] 00 ) Lyrica No Notes: Memoria 3-04 (Same as: l 15:18: Lyrica) Carlos Lyrica No Notes: Memoria 3-04 (Same as: l 15:18: Lyrica) Carlos 00 Miralax No Notes: Memoria 3-04 Dissolve l 15:17: in 8 oz of Carlos 00 water or juice. (Same as: Miralax) Miralax No Notes: Memoria 3-04 Dissolve l 15:17: in 8 oz of Richardson 00 water or juice. (Same as: Miralax) Lidocaine No 1 patch, Edison anny 0.05 MG/MG 10-09 Route: l Transdermal 15:00: TOP, Narinder n Patch 00 Daily, Drug form: FILM, Start date: 10/09/18 9:00:00 HEALTH/SAFETY JOB TITLES, Duration: 30 day, Stop date: 11/07/18 9:00:00 CDT Lidocaine No 1 patch, Edison anny 0.05 MG/MG 3-04 Route: l Transdermal 15:00: TOP, Narinder n Patch 00 Daily, Drug form: FILM, Start date: 10/09/18 9:00:00 HEALTH/SAFETY JOB TITLES, Duration: 30 day, Stop date: 11/07/18 9:00:00 CDT Tramadol No Notes: Not Mem oria 3-04 to exceed l 04:24: 400mg/day. Richardson 00 (Same As: Ultram) Tramadol No Notes: Not Mem oria 3-04 to exceed l 04:24: 400mg/day. [place] 00 (Same As: Ultram) Keppra No Notes: Memoria 3-04 (Same l 03:00: as:Keppra) Saline No Notes: Memoria Flush 0.9% 3-04 (Same as: l 03:00: BD Posiflush) Levetiracet No Notes: Memoria am 3-04 MEDICATION l 03:00: WASTE Product Size: 500 mg Product Wasted: ___ mg sennosides, No Notes: Edison anny FDC 3-04 (Same as: l 03:00: Senokot) Docusate No 100 mg, 1 Edison anny 3-04 cap, l 03:00: Route: PO, Drug form: CAP, Q12H, Dosing Weight 95.455, kg, Start date: 10/08/18 21:00:00 HEALTH/SAFETY JOB TITLES, Duration: 30 day, Stop date: 11/07/18 9:00:00 CDT Keppra No Notes: Memoria 3-04 (Same l 03:00: as:Keppra) Saline No Notes: Memoria Flush 0.9% 3-04 (Same as: l 03:00: BD Richardson 00 Posiflush) Levetiracet No Notes: Memoria am 3-04 MEDICATION l 03:00: WASTE Product Size: 500 mg Product Wasted: ___ mg sennosides, 2019-0 No Notes: Edison anny FDC 3-04 (Same as: l 03:00: Senokot) Docusate 2019-0 No 100 mg, 1 Edison anny 3-04 cap, l 03:00: Route: PO, Drug form: CAP, Q12H, Dosing Weight 95.455, kg, Start date: 10/08/18 21:00:00 HEALTH/SAFETY JOB TITLES, Duration: 30 day, Stop date: 11/07/18 9:00:00 CDT Vancomycin 2019-0 No 2000 mg: Me moria 3-04 infuse l 00:00: over 2.5 [place] 00 hours For adult patients only: Round to nearest 250 mg per Medical Staff approval MEDICATION WASTE Product Size: 1000 mg Product Wasted: ___ mg Vancomycin 2019-0 No 2000 mg: Me moria 3-04 infuse l 00:00: over 2.5 [place] 00 hours For adult patients only: Round to nearest 250 mg per Medical Staff approval MEDICATION WASTE Product Size: 1000 mg Product Wasted: ___ mg Artificial 2019-0 No 2 drp, Memor ia Tears 3 Route: l 23:00: BOTH EYES, Carlos 00 BID, Drug form: SOLN, Start date: 10/08/18 17:00:00 HEALTH/SAFETY JOB TITLES, Duration: 30 day, Stop date: 11/07/18 9:00:00 CDT Artificial 2019-0 No 2 drp, Memor ia Tears 10-08 Route: l 23:00: BOTH EYES, Richardson 00 BID, Drug form: SOLN, Start date: 10/08/18 17:00:00 HEALTH/SAFETY JOB TITLES, Duration: 30 day, Stop date: 11/07/18 9:00:00 CDT Vancomycin 2018-0 No 1 gm, Memori a 3 Route: IV, l 22:00: Q8H, Dosing Weight 95.455, kg, Start date: 10/08/18 16:00:00 HEALTH/SAFETY JOB TITLES, Duration: 1 day, Stop date: 10/09/18 8:00:00 HEALTH/SAFETY JOB TITLES, ABX Indication : Surgical Prophylaxi s Vancomycin 2018-0 No 1 gm, Memori a 3-03 Route: IV, l 22:00: Q8H, Richardson 00 Dosing Weight 95.455, kg, Start date: 10/08/18 16:00:00 HEALTH/SAFETY JOB TITLES, Duration: 1 day, Stop date: 10/09/18 8:00:00 HEALTH/SAFETY JOB TITLES, ABX Indication : Surgical Prophylaxi s Glucagon 2019-0 No 1 mg, Memoria 3-03 Route: IM, l 20:19: Drug form: Carlos 00 PDR/INJ, PRN, Dosing Weight 95.455, kg, PRN Blood Glucose Results, Start date: 10/08/18 14:19:00 HEALTH/SAFETY JOB TITLES, Duration: 30 day, Stop date: 11/07/18 15:18:00 CDT Dextrose 2019-0 No 25 gm, 50 Edison anny 50% Syringe 3-03 mL, Route: l 20:19: IVP, Drug Form: INJ, Dosing Weight 95.455, kg, PRN, PRN Blood Glucose Results, Start date: 10/08/18 14:19:00 HEALTH/SAFETY JOB TITLES, Duration: 30 day, Stop date: 11/07/18 15:18:00 CDT Insulin 2019-0 No 60 Memoria regular 3-03 units) l 20:19: WASTE: F/P Carlos - Black; E - Municipal Trash Bin Stable for 28 days at room temperatur e Expires in days from ____Date Glucagon 2019-0 No 1 mg, Memoria 3-03 Route: IM, l 20:19: Drug form: PDR/INJ, PRN, Dosing Weight 95.455, kg, PRN Blood Glucose Results, Start date: 10/08/18 14:19:00 HEALTH/SAFETY JOB TITLES, Duration: 30 day, Stop date: 11/07/18 15:18:00 CDT Dextrose 2019-0 No 25 gm, 50 Edison anny 50% Syringe 3-03 mL, Route: l 20:19: IVP, Drug Form: INJ, Dosing Weight 95.455, kg, PRN, PRN Blood Glucose Results, Start date: 10/08/18 14:19:00 HEALTH/SAFETY JOB TITLES, Duration: 30 day, Stop date: 11/07/18 15:18:00 CDT Insulin 2019-0 No 60 Memoria regular 3-03 units) l 20:19: WASTE: F/P Richardson 00 - Black; E - Municipal Trash Bin Stable for 28 days at room temperatur e Expires in days from ____Date Potassium No Notes: Memori a Chloride 3-03 (Same as: l 20:18: KCL) Carlos 00 Infuse over 2 hours. Calcium No Notes: Memoria Gluconate 3- WASTE: F/P l 20:18: - Sink; E [place] - Municipal Trash Bin Magnesium No Notes: Memori a Oxide 3- (Same as: l 20:18: Mag-Ox Richardson 00 400) Magnesium oxide [id number] g elemental magnesium Dose=____m g magnesium oxide (___mg elemental magnesium) Calcium No Notes: Memoria Carbonate 3- (Same As: l 500 MG 20:18: Tums) Richardson Chewable 00 Calcium Tablet Carbonate 500 mg = 200 mg elemental calcium Dose = mg calcium carbonate ( mg elemental calcium) potassium No Notes: Memori a phosphate 3-03 (Same as: l 20:18: K Carlos 00 Phosphate. ) Do not infuse phosphorou s concurrent ly in the same line as TPN or IVF that contains calcium. For double lumen central lines, phosphorou s may be infused in a separate lumen from TPN. 1 mMol phoshate has 1.47 mEq potassium Infuse over 4 hours potassium No Notes: Memori a phosphate-s 3-03 (Same as: l odium 20:18: Phos-NaK) Richardson phosphate 00 Each 1.5 250 mg-280 gm pkt has mg-160 mg 250mg oral powder phosphorou for s. Mix reconstitut w/2.5oz ion water and stir. Magnesium No Notes: Memori a Sulfate 3- WASTE: F/P l 20:18: - Sink; E Richardson - Municipal Trash Bin sodium No Notes: Memoria phosphate 3-03 Infuse l 20:18: over 4 Richardson 00 hour. Do not infuse phosphorou s concurrent ly in the same line as TPN or IVF that contains calcium. For double lumen central lines, phosphorou s may be infused in a separate lumen from TPN. Potassium No Notes: Memori a Chloride 3-03 (Same as: l 20:18: KCL) Carlos 00 Infuse over 2 hours. Calcium No Notes: Memoria Gluconate 3-03 WASTE: F/P l 20:18: - Sink; E Richardson 00 - Municipal Trash Bin Magnesium No Notes: Memori a Oxide 3-03 (Same as: l 20:18: Mag-Ox Carlos 00 400) Magnesium oxide [id number]=[id number] g elemental magnesium Dose=____m g magnesium oxide (___mg elemental magnesium) Calcium No Notes: Memoria Carbonate 3-03 (Same As: l 500 MG 20:18: Tums) Richardson Chewable 00 Calcium Tablet Carbonate 500 mg = 200 mg elemental calcium Dose = mg calcium carbonate ( mg elemental calcium) potassium No Notes: Memori a phosphate 3-03 (Same as: l 20:18: K Carlos 00 Phosphate. ) Do not infuse phosphorou s concurrent ly in the same line as TPN or IVF that contains calcium. For double lumen central lines, phosphorou s may be infused in a separate lumen from TPN. 1 mMol phoshate has 1.47 mEq potassium Infuse over 4 hours potassium No Notes: Memori a phosphate-s 3-03 (Same as: l odium 20:18: Phos-NaK) Richardson phosphate 00 Each 1.5 250 mg-280 gm pkt has mg-160 mg 250mg oral powder phosphorou for s. Mix reconstitut w/2.5oz ion water and stir. Magnesium No Notes: Memori a Sulfate 3-03 WASTE: F/P l 20:18: - Sink; E Carlos - Municipal Trash Bin sodium No Notes: Memoria phosphate 3-03 Infuse l 20:18: over 4 Carlos 00 hour. Do not infuse phosphorou s concurrent ly in the same line as TPN or IVF that contains calcium. For double lumen central lines, phosphorou s may be infused in a separate lumen from TPN. Hydralazine No Notes: Edison anny 3-03 (Same as: l 20:13: Apresoline Richardson ) Push over 5 minutes Labetalol 2019-0 No 10 mg, 2 Edison anny 3-03 mL, Route: l 20:13: IVP, Drug Richardson form: INJ, Q4H, Dosing Weight 95.455, kg, PRN Hypertensi on, Start date: 10/08/18 14:13:00 HEALTH/SAFETY JOB TITLES, Duration: 30 day, Stop date: 11/07/18 14:12:00 CDT Hydralazine 2019-0 No Notes: Edison anny 3-03 (Same as: l 20:13: Apresoline Carlos 00 ) Push over 5 minutes Labetalol 2019-0 No 10 mg, 2 Edison anny 3-03 mL, Route: l 20:13: IVP, Drug Richardson 00 form: INJ, Q4H, Dosing Weight 95.455, kg, PRN Hypertensi on, Start date: 10/08/18 14:13:00 HEALTH/SAFETY JOB TITLES, Duration: 30 day, Stop date: 11/07/18 14:12:00 CDT sugammadex 2019-0 No Route: IV, M emoria (ANES) 3-03 Drug form: l 18:30: SOLN, Carlos 00 ONCE, Stop date: 10/08/18 12:30:00 HEALTH/SAFETY JOB TITLES sugammadex 2019-0 No Route: IV, M emoria (ANES) 3-03 Drug form: l 18:30: SOLN, Richardson 00 ONCE, Stop date: 10/08/18 12:30:00 HEALTH/SAFETY JOB TITLES Hydralazine 2019-0 No 10 mg, Edison anny 3-03 Route: l 18:18: IVP, Richardson 00 Q20Min, Dosing Weight 95.455, kg, PRN Elevated BP, Start date: 10/08/18 12:18:00 HEALTH/SAFETY JOB TITLES, Duration: 2 doses or times, Stop date: Limited # of times Labetalol 2019-0 No 10 mg, 2 Edison anny 3-03 mL, Route: l 18:18: IVP, Drug [place] 00 form: INJ, Q5Min, Dosing Weight 95.455, kg, PRN Elevated BP, Start date: 10/08/18 12:18:00 HEALTH/SAFETY JOB TITLES, Duration: 5 doses or times, Stop date: 10/09/18 0:00:00 HEALTH/SAFETY JOB TITLES Acetaminoph 2019-0 No 1,000 mg, M emoria en 3 Route: PO, l 18:18: Drug form: Carlos 00 TAB, ONCE, Dosing Weight 95.455, kg, PRN Pain Score 1-3, Start date: 10/08/18 12:18:00 HEALTH/SAFETY JOB TITLES Promethazin 2019-0 No 6.25 mg, Me moria e 3 Route: l 18:18: IVPB, Richardson 00 ONCE, Dosing Weight 95.455, kg, PRN Nausea & Vomiting, Start date: 10/08/18 12:18:00 HEALTH/SAFETY JOB TITLES Ondansetron 2019-0 No 4 mg, Memor ia 3- Route: l 18:18: IVP, ONCE, Dosing Weight 95.455, kg, PRN Nausea & Vomiting, Start date: 10/08/18 12:18:00 HEALTH/SAFETY JOB TITLES Dexamethaso 2019-0 No 4 mg, Memor ia ne 3 Route: l 18:18: IVP, ONCE, Dosing Weight 95.455, kg, PRN Nausea & Vomiting, Start date: 10/08/18 12:18:00 HEALTH/SAFETY JOB TITLES Naloxone 2019-0 No 0.4 mg, Memori a 10-08 Route: l 18:18: IVP, Richardson 00 Q2MIN, Dosing Weight 95.455, kg, PRN Narcotic Reversal, Start date: 10/08/18 12:18:00 HEALTH/SAFETY JOB TITLES, Duration: 8 doses or times, Stop date: Limited # of times Flumazenil 2019-0 No 0.2 mg, Edison anny 10-08 Route: l 18:18: IVP, PRN, Dosing Weight 95.455, kg, PRN Benzodiaze pine Reversal, Initial dose, Start date: 10/08/18 12:18:00 HEALTH/SAFETY JOB TITLES, Duration: 30 day, Stop date: 11/07/18 13:17:00 CDT Hydromorpho 2019-0 No 0.5 mg, Mem oria ne 3 Route: l 18:18: IVP, Carlos 00 Q5Min, Dosing Weight 95.455, kg, PRN Pain Score 7-10, Start date: 10/08/18 12:18:00 HEALTH/SAFETY JOB TITLES, Duration: 4 doses or times, Stop date: Limited # of times Hydralazine 2019-0 No 10 mg, Edison anny 3 Route: l 18:18: IVP, Carlos 00 Q20Min, Dosing Weight 95.455, kg, PRN Elevated BP, Start date: 10/08/18 12:18:00 HEALTH/SAFETY JOB TITLES, Duration: 2 doses or times, Stop date: Limited # of times Labetalol 2019-0 No 10 mg, 2 Edison anny 3-03 mL, Route: l 18:18: IVP, Drug form: INJ, Q5Min, Dosing Weight 95.455, kg, PRN Elevated BP, Start date: 10/08/18 12:18:00 HEALTH/SAFETY JOB TITLES, Duration: 5 doses or times, Stop date: 10/09/18 0:00:00 HEALTH/SAFETY JOB TITLES Acetaminoph 2019-0 No 1,000 mg, M emoria en 10-08 Route: PO, l 18:18: Drug form: Carlos 00 TAB, ONCE, Dosing Weight 95.455, kg, PRN Pain Score 1-3, Start date: 10/08/18 12:18:00 HEALTH/SAFETY JOB TITLES Promethazin 2019-0 No 6.25 mg, Me moria e 10-08 Route: l 18:18: IVPB, Richardson 00 ONCE, Dosing Weight 95.455, kg, PRN Nausea & Vomiting, Start date: 10/08/18 12:18:00 HEALTH/SAFETY JOB TITLES Ondansetron 2019-0 No 4 mg, Memor ia 10-08 Route: l 18:18: IVP, ONCE, Dosing Weight 95.455, kg, PRN Nausea & Vomiting, Start date: 10/08/18 12:18:00 HEALTH/SAFETY JOB TITLES Dexamethaso 2019-0 No 4 mg, Memor ia ne 10-08 Route: l 18:18: IVP, ONCE, Dosing Weight 95.455, kg, PRN Nausea & Vomiting, Start date: 10/08/18 12:18:00 HEALTH/SAFETY JOB TITLES Naloxone 2019-0 No 0.4 mg, Memori a 10-08 Route: l 18:18: IVP, Richardson 00 Q2MIN, Dosing Weight 95.455, kg, PRN Narcotic Reversal, Start date: 10/08/18 12:18:00 HEALTH/SAFETY JOB TITLES, Duration: 8 doses or times, Stop date: Limited # of times Flumazenil 2019-0 No 0.2 mg, Edison anny 10-08 Route: l 18:18: IVP, PRN, Carlos 00 Dosing Weight 95.455, kg, PRN Benzodiaze pine Reversal, Initial dose, Start date: 10/08/18 12:18:00 HEALTH/SAFETY JOB TITLES, Duration: 30 day, Stop date: 11/07/18 13:17:00 CDT Hydromorpho No 0.5 mg, Mem oria ne 10-08 Route: l 18:18: IVP, Carlos 00 Q5Min, Dosing Weight 95.455, kg, PRN Pain Score 7-10, Start date: 10/08/18 12:18:00 HEALTH/SAFETY JOB TITLES, Duration: 4 doses or times, Stop date: Limited # of times sugammadex No Notes: Memor ia 10-08 (Same as: l 18:00: [place]) sugammadex 2018-0 No Notes: Memor ia 10-08 (Same as: l 18:00: [place]) famotidine No Route: IV, M emoria (ANES) 10-08 Drug form: l 17:59: INJ, ONCE, Stop date: 10/08/18 11:59:00 HEALTH/SAFETY JOB TITLES metoclopram 0 No Route: IV, Memoria anais (ANES) 10-08 Drug form: l 17:59: INJ, ONCE, Stop date: 10/08/18 11:59:00 HEALTH/SAFETY JOB TITLES ondansetron 2018-0 No Route: IV, Memoria (ANES) 10-08 Drug form: l 17:59: INJ, ONCE, Stop date: 10/08/18 11:59:00 HEALTH/SAFETY JOB TITLES famotidine 2018-0 No Route: IV, M emoria (ANES) 10-08 Drug form: l 17:59: INJ, ONCE, Stop date: 10/08/18 11:59:00 HEALTH/SAFETY JOB TITLES metoclopram 2018-0 No Route: IV, Memoria anais (ANES) 10-08 Drug form: l 17:59: INJ, ONCE, Stop date: 10/08/18 11:59:00 HEALTH/SAFETY JOB TITLES ondansetron 2018-0 No Route: IV, Memoria (ANES) 10-08 Drug form: l 17:59: INJ, ONCE, Stop date: 10/08/18 11:59:00 HEALTH/SAFETY JOB TITLES phenylephri 2018-0 No Route: IV, Memoria ne (ANES) 10-08 Drug form: l 17:57: INJ, ONCE, Stop date: 10/08/18 11:57:00 HEALTH/SAFETY JOB TITLES phenylephri 2018-0 No Route: IV, Memoria ne (ANES) 10-08 Drug form: l 17:57: INJ, ONCE, Stop date: 10/08/18 11:57:00 HEALTH/SAFETY JOB TITLES lidocaine 2019-0 No Route: IV, Me moria (ANES) 10-08 Drug form: l 17:51: INJ, ONCE, Stop date: 10/08/18 11:51:00 HEALTH/SAFETY JOB TITLES dexamethaso 2018-0 No Route: IV, Memoria ne (ANES) 10-08 Drug form: l 17:51: INJ, ONCE, Stop date: 10/08/18 11:51:00 HEALTH/SAFETY JOB TITLES propofol 2019-0 No Route: IV, Mem oria (ANES) 10-08 Drug form: l 17:51: INJ, ONCE, Stop date: 10/08/18 11:51:00 HEALTH/SAFETY JOB TITLES rocuronium 2018-0 No Route: IV, M emoria (ANES) 10-08 Drug form: l 17:51: INJ, ONCE, Stop date: 10/08/18 11:51:00 HEALTH/SAFETY JOB TITLES levETIRAcet 2018-0 No Route: IV, Memoria am (ANES) 10-08 Drug form: l 17:51: INJ, ONCE, Stop date: 10/08/18 11:51:00 HEALTH/SAFETY JOB TITLES fentaNYL 2019-0 No Route: IV, Mem oria (ANES) 10-08 Drug form: l 17:51: INJ, ONCE, Stop date: 10/08/18 11:51:00 HEALTH/SAFETY JOB TITLES lidocaine 2019-0 No Route: IV, Me moria (ANES) 10-08 Drug form: l 17:51: INJ, ONCE, Stop date: 10/08/18 11:51:00 HEALTH/SAFETY JOB TITLES dexamethaso 2019-0 No Route: IV, Memoria ne (ANES) 10-08 Drug form: l 17:51: INJ, ONCE, Stop date: 10/08/18 11:51:00 HEALTH/SAFETY JOB TITLES propofol 2019-0 No Route: IV, Mem oria (ANES) 10-08 Drug form: l 17:51: INJ, ONCE, Stop date: 10/08/18 11:51:00 HEALTH/SAFETY JOB TITLES rocuronium 2018-0 No Route: IV, M emoria (ANES) 10-08 Drug form: l 17:51: INJ, ONCE, Stop date: 10/08/18 11:51:00 HEALTH/SAFETY JOB TITLES levETIRAcet 2018- No Route: IV, Memoria am (ANES) 10-08 Drug form: l 17:51: INJ, ONCE, Stop date: 10/08/18 11:51:00 HEALTH/SAFETY JOB TITLES fentaNYL 2019-0 No Route: IV, Mem oria (ANES) 10-08 Drug form: l 17:51: INJ, ONCE, Stop date: 10/08/18 11:51:00 HEALTH/SAFETY JOB TITLES propofol 2019-0 No Route: IV, Mem oria (ANES) 10 10-08 Drug form: l mg 16:30: INJ, Start date: 10/08/18 10:30:00 HEALTH/SAFETY JOB TITLES, Stop date: 10/08/18 11:30:00 HEALTH/SAFETY JOB TITLES remifentani 2019-0 No Route: IV, Memoria l (ANES) 1 10-08 Drug form: l mg 16:30: INJ, Start date: 10/08/18 10:30:00 HEALTH/SAFETY JOB TITLES, Stop date: 10/08/18 11:30:00 HEALTH/SAFETY JOB TITLES propofol 2019-0 No Route: IV, Mem oria (ANES) 10 10-08 Drug form: l mg 16:30: INJ, Start date: 10/08/18 10:30:00 HEALTH/SAFETY JOB TITLES, Stop date: 10/08/18 11:30:00 HEALTH/SAFETY JOB TITLES remifentani 2019-0 No Route: IV, Memoria l (ANES) 1 10-08 Drug form: l mg 16:30: INJ, Start date: 10/08/18 10:30:00 HEALTH/SAFETY JOB TITLES, Stop date: 10/08/18 11:30:00 HEALTH/SAFETY JOB TITLES Sodium 2019-0 No Route: IV, Memor ia Chloride 3-03 Drug form: l 0.9% IV 16:25: INJ, Start Herm ree (ANES) 235 00 date: mL + 10/08/18 vancomycin 10:25:00 (ANES) 1500 HEALTH/SAFETY JOB TITLES, Stop mg date: 10/08/18 11:25:00 HEALTH/SAFETY JOB TITLES Sodium 2019-0 No Route: IV, Memor ia Chloride 3-03 Drug form: l 0.9% IV 16:25: INJ, Start Herm ree (ANES) 235 00 date: mL + 10/08/18 vancomycin 10:25:00 (ANES) 1500 HEALTH/SAFETY JOB TITLES, Stop mg date: 10/08/18 11:25:00 HEALTH/SAFETY JOB TITLES Isolyte S 2019-0 No Route: IV, Me moria PH 7.4 3-03 Total l (ANES) 1000 16:09: Volume: Her salas mL 00 1,000, Start date: 10/08/18 10:09:00 HEALTH/SAFETY JOB TITLES, Stop date: 10/08/18 11:09:00 HEALTH/SAFETY JOB TITLES Isolyte S 2019-0 No Route: IV, Me moria PH 7.4 3-03 Total l (ANES) 1000 16:09: Volume: Her salas mL 00 1,000, Start date: 10/08/18 10:09:00 HEALTH/SAFETY JOB TITLES, Stop date: 10/08/18 11:09:00 HEALTH/SAFETY JOB TITLES Saline 2019-0 No Notes: Memoria Flush 0.9% 10-08 (Same as: l 15:57: BD Richardson 00 Posiflush) Albuterol 2018-0 No 3 ml, Memoria 0.833 MG/ML 03 Route: l / 15:57: NEB, Drug Richardson Ipratropium 00 Form: [place] SOLN, 0.167 MG/ML Dosing Inhalant Weight Solution 95.455, kg, RQ4H, PRN Wheezing, Start date: 10/08/18 9:57:00 HEALTH/SAFETY JOB TITLES, Duration: 30 day, Stop date: 11/07/18 9:56:00 CDT Labetalol 2019-0 No 10 mg, 2 Edison anny 3-03 mL, Route: l 15:57: IVP, Drug Carlos 00 form: INJ, Q15Min, Dosing Weight 95.455, kg, PRN Hypertensi on, Start date: 10/08/18 9:57:00 HEALTH/SAFETY JOB TITLES, Duration: 30 day, Stop date: 11/07/18 10:56:00 CDT Hydralazine 2018-0 No 20 mg, 1 Me moria 3-03 mL, Route: l 15:57: IVP, Drug form: INJ, Q4H, Dosing Weight 95.455, kg, PRN Hypertensi on, Start date: 10/08/18 9:57:00 HEALTH/SAFETY JOB TITLES, Duration: 30 day, Stop date: 11/07/18 9:56:00 CDT Sodium 2018-0 No 1,000 mL, Memori a Chloride 10-08 Rate: 50 l 0.9% IV 15:57: ml/hr, Richardson 1,000 mL 00 Infuse over: 20 hr, Route: IV, Dosing Weight 95.455 kg, Total Volume: 1,000, Start date: 10/08/18 9:57:00 HEALTH/SAFETY JOB TITLES, Duration: 30 day, Stop date: 11/07/18 9:56:00 CDT, 2.16, m2 Levetiracet 2018-0 No Notes: Edison anny am -03 Same as l 15:57: Keppra Mix with 100 mL NS, LR or D5W MEDICATION WASTE Product Size: 500 mg Product Wasted: ___ mg Acetaminoph 2019-0 No 100.4 F, M emoria en 3-03 Start l 15:57: date: 10/08/18 9:57:00 HEALTH/SAFETY JOB TITLES, Duration: 30 day, Stop date: 11/07/18 9:56:00 CDT Ondansetron 2018-0 No Notes: Memoria - MEDICATION l 15:57: WASTE Product Size: 4 mg Product Wasted: ___ mg Bisacodyl 2019-0 No 10 mg, 1 Edison anny 3-03 supp, l 15:57: Route: NH, Drug form: SUPP, Daily, Dosing Weight 95.455, kg, PRN Constipati on, Start date: 10/08/18 9:57:00 HEALTH/SAFETY JOB TITLES, Duration: 30 day, Stop date: 11/07/18 9:56:00 CDT Saline 2019-0 No Notes: Memoria Flush 0.9% 10-08 (Same as: l 15:57: BD Posiflush) Albuterol 2019-0 No 3 ml, Memoria 0.833 MG/ML 10-08 Route: l / 15:57: NEB, Drug Carlos Ipratropium 00 Form: [place] SOLN, 0.167 MG/ML Dosing Inhalant Weight Solution 95.455, kg, RQ4H, PRN Wheezing, Start date: 10/08/18 9:57:00 HEALTH/SAFETY JOB TITLES, Duration: 30 day, Stop date: 11/07/18 9:56:00 CDT Labetalol 0 No 10 mg, 2 Edisno anny 3-03 mL, Route: l 15:57: IVP, Drug Carlos 00 form: INJ, Q15Min, Dosing Weight 95.455, kg, PRN Hypertensi on, Start date: 10/08/18 9:57:00 HEALTH/SAFETY JOB TITLES, Duration: 30 day, Stop date: 11/07/18 10:56:00 CDT Hydralazine 0 No 20 mg, 1 Me moria 3-03 mL, Route: l 15:57: IVP, Drug form: INJ, Q4H, Dosing Weight 95.455, kg, PRN Hypertensi on, Start date: 10/08/18 9:57:00 HEALTH/SAFETY JOB TITLES, Duration: 30 day, Stop date: 11/07/18 9:56:00 CDT Sodium 2018-0 No 1,000 mL, Memori a Chloride 10-08 Rate: 50 l 0.9% IV 15:57: ml/hr, Carlos 1,000 mL 00 Infuse over: 20 hr, Route: IV, Dosing Weight 95.455 kg, Total Volume: 1,000, Start date: 10/08/18 9:57:00 HEALTH/SAFETY JOB TITLES, Duration: 30 day, Stop date: 11/07/18 9:56:00 CDT, 2.16, m2 Levetiracet 2018-0 No Notes: Edison anny am 03 Same as l 15:57: Keppra Carlos 00 Mix with 100 mL NS, LR or D5W MEDICATION WASTE Product Size: 500 mg Product Wasted: ___ mg Acetaminoph 2018-0 No 100.4 F, M emoria en 303 Start l 15:57: date: Carlos 10/08/18 9:57:00 HEALTH/SAFETY JOB TITLES, Duration: 30 day, Stop date: 11/07/18 9:56:00 CDT Ondansetron 2019-0 No Notes: Memoria 3-03 MEDICATION l 15:57: WASTE Carlos 00 Product Size: 4 mg Product Wasted: ___ mg Bisacodyl 2019-0 No 10 mg, 1 Edison anny 3-03 supp, l 15:57: Route: NH, Richardson Drug form: SUPP, Daily, Dosing Weight 95.455, kg, PRN Constipati on, Start date: 10/08/18 9:57:00 HEALTH/SAFETY JOB TITLES, Duration: 30 day, Stop date: 11/07/18 9:56:00 CDT Zofran 2019-0 No 4 mg, Memoria 3-03 Route: l 15:09: IVP, Drug form: INJ, ONCE, Dosing Weight 95.455, kg, Priority: STAT, Start date: 10/08/18 9:09:00 HEALTH/SAFETY JOB TITLES, Stop date: 10/08/18 9:09:00 HEALTH/SAFETY JOB TITLES Morphine 2019-0 No 4 mg, Memoria 3-03 Route: l 15:09: IVP, ONCE, Dosing Weight 95.455, kg, Priority: STAT, Start date: 10/08/18 9:09:00 HEALTH/SAFETY JOB TITLES, Stop date: 10/08/18 9:09:00 HEALTH/SAFETY JOB TITLES Sodium 2019-0 No 1,000 mL, Memori a Chloride 3-03 Infuse l 0.9% 15:09: Over: 1 Richardson (Bolus) IV 00 hr, Route: IV, ONCE, Priority: STAT, Dosing Weight 95.455 kg, Start date: 10/08/18 9:09:00 HEALTH/SAFETY JOB TITLES, Stop date: 10/08/18 9:09:00 HEALTH/SAFETY JOB TITLES Zofran 2019-0 No 4 mg, Memoria 3-03 Route: l 15:09: IVP, Drug form: INJ, ONCE, Dosing Weight 95.455, kg, Priority: STAT, Start date: 10/08/18 9:09:00 HEALTH/SAFETY JOB TITLES, Stop date: 10/08/18 9:09:00 HEALTH/SAFETY JOB TITLES Morphine 2019-0 No 4 mg, Memoria 3-03 Route: l 15:09: IVP, ONCE, Carlos 00 Dosing Weight 95.455, kg, Priority: STAT, Start date: 10/08/18 9:09:00 HEALTH/SAFETY JOB TITLES, Stop date: 10/08/18 9:09:00 HEALTH/SAFETY JOB TITLES Sodium 2019-0 No 1,000 mL, Memori a Chloride 3-03 Infuse l 0.9% 15:09: Over: 1 Richardson (Bolus) IV 00 hr, Route: IV, ONCE, Priority: STAT, Dosing Weight 95.455 kg, Start date: 10/08/18 9:09:00 HEALTH/SAFETY JOB TITLES, Stop date: 10/08/18 9:09:00 HEALTH/SAFETY JOB TITLES Sulfamethox Sulfamethox Yes Parminder not [facility] azole-TMP azole-TMP Velez defined [facility] Tramadol Tramadol Yes Parminder [address] HCl HCl Velez [facility] Naproxen Naproxen Yes Parminder [address] Velez with food [facility] or milk as [facility] Vital Signs Vital Name Observation Time Observation Value Comments Source Systolic blood 2021-06-05 15:13:00 122 mm[facility]Hg[facility] Diastolic blood 2021-06-05 15:13:00 75 mm[Hg[facility] 2021-06-05 15:13:00 81 /min [facility] Respiratory rate 2021-06-05 15:13:00 20 /min [facility] Body height 2021-06-05 15:13:00 172.7 cm [facility] Body weight 2021-06-05 15:13:00 95.573 kg [facility] BMI 2021-06-05 15:13:00 32.04 kg/m2 [facility] Oxygen saturation in 2021-06-05 15:13:00 98 /min [facility] Arterial blood by [facility] Pulse oximetry [facility] Heart Rate 2018-10-11 17:26:00 Tracy Gonzalez Temperature Oral (F) 2018-10-11 17:26:00 97.9 F Tracy Gonzalez Respitory Rate 2018-10-11 17:26:00 Kathy Otero Systolic (mm Hg) 2018-10-11 17:26:00 Edison rial Carlos Diastolic (mm Hg) 2018-10-11 17:26:00 Mem orial Carlos Systolic (mm Hg) 2018-10-11 13:44:00 Edison rial Carlos Diastolic (mm Hg) 2018-10-11 13:44:00 Mem orial Richardson Respitory Rate 2018-10-11 13:44:00 Memori al Richardson Heart Rate 2018-10-11 13:44:00 [facility] Richardson Temperature Oral (F) 2018-10-11 13:44:00 99.1 F [facility] Temperature Oral (F) 2018-10-11 10:47:00 97.9 F [facility] Heart Rate 2018-10-11 10:47:00 [facility] Richardson Respitory Rate 2018-10-11 10:47:00 Memori al Carlos Systolic (mm Hg) 2018-10-11 10:47:00 Edison rial Carlos Diastolic (mm Hg) 2018-10-11 10:47:00 Mem orial Carlos Weight 2018-10-08 21:12:00 [facility] Richardson Weight 2018-10-08 14:38:00 [facility] Height 2018-10-08 14:38:00 172.72 cm [facility] BMI Calculated 2018-10-08 14:38:00 Memori al Richardson Procedures This patient has no known procedures. Encounters Start End Encounter Admission Attending Care Care Encounter Source Date/Time Date/Time Type Type Clinicians Facility Department ID 2018-10-08 Inpatient E [facility] [id number] [facility] 09:57:00 2021-06-05 2021-06-05 Outpatient R BROWN [facility] [id number] [facility] 10:00:00 11:11:01 ERICK contreras [facility] 2021-06-05 2021-06-05 [facility] [id number] 09:59:23 11:11:01 Visit Erick Dillard [facility] [id number] Ines [id number] Alli as TRAM?BLEA [id number] [address] MEDICAL OFFICE BUILDING 2021-05-05 2021-05-05 Outpatient [facility] [id number] [facility] 2021-02-23 2021-02-23 [facility] [id number] [facility] 2021-02-23 2021-02-23 [facility] [id number] [facility] 2021-01-26 2021-01-26 [facility] [id number] [facility] 2021-01-23 2021-01-23 Office [facility] [id number] 08:50:29 10:03:02 Visit [facility] [id number] Clear [id number] [place] [id number] Medical 098 Office Building 2021-01-23 2021-01-23 Orders Doctor KEDAR [id number] 00:00:00 00:00:00 Only Unassigned, NIKO [id number] [place] [facility] [id number] 2021-01-15 2021-01-15 [facility] [id number] [facility] 2021-01-06 2021-01-06 [facility] [id number] [facility] 2020-11-25 2020-11-25 [facility] [id number] [facility] 2020-09-11 2020-09-11 [facility] [id number] [facility] 2020-09-11 2020-09-11 [facility] [id number] [facility] 2020-08-14 2020-08-14 [facility] [id number] [facility] 2020-07-16 2020-07-16 [facility] [id number] [facility] 2020-03-26 2020-03-26 [facility] [id number] 15:00:00 15:00:00 t Webrazzi s - [employer] [facility] Medicine Outpati ent Clinics 2020-03-24 2020-03-24 [facility] [id number] 08:34:00 08:34:00 t Webrazzi s - [employer] [facility] Medicine Outpati ent Clinics 2020-03-18 2020-03-18 [facility] [id number] 16:45:00 16:45:00 t Webrazzi s - Drive [facility] Medicine Outpati ent Clinics 2020-03-18 2020-03-18 [facility] [id number] 15:30:00 15:30:00 t Webrazzi s - [employer] [facility] Medicine Outpati ent Clinics 2020-03-05 2020-03-05 [facility] [id number] 10:30:00 10:30:00 t Webrazzi s - [employer] [facility] Medicine Outpati ent Clinics 2019-04-04 2019-04-06 Phone nullFlavo MNA [id number] Memoria 17:21:53 04:59:59 Message r Neurosurger 05 l y [facility] 2018-12-21 2018-12-23 Phone nullFlavo MNA [id number] [facility]oria 15:05:32 04:59:59 Message r Neurosurger 04 l y [facility] 2018-12-08 2018-12-10 Phone nullFlavo MNA [id number] [facility]oria 18:27:20 04:59:59 Message r Neurosurger 03 l y [facility] 2018-12-07 2018-12-08 Outpatient nullFlavo MNA [id number] Memoria 16:15:00 04:59:59 r Neurosurger 01 l y [facility] 2018-12-07 2018-12-08 Outpt Diag nullFlavo [facility] [id number] Memoria 15:09:00 04:59:00 Services r Outpatient 01 l Imaging [facility] 2018-10-31 2018-11-02 Phone nullFlavo MNA [id number] [facility] 17:52:00 04:59:59 Message r Neurosurger 02 l y [facility] 2018-10-27 2018-10-29 Phone nullFlavo MNA [id number] [facility] 14:49:00 04:59:59 Message r Neurosurger 01 l y [facility] 2018-10-26 2018-10-27 Outpatient nullFlavo VAA [id number] Memoria 17:15:00 04:59:59 r Neurosurger 00 l y [facility] 2018-10-24 2018-10-25 Outpt Diag nullFlavo [facility] [id number] Memoria 13:26:00 04:59:00 Services r Outpatient 00 l Imaging [facility] 2018-10-17 2018-10-19 Phone nullFlavo VAA [id number] [facility] 15:08:00 04:59:59 Message r Neurosurger 00 l y [facility] 2018-10-08 2018-10-11 Inpatient nullFlavo [facility] [id number] Memoria 14:37:00 21:18:00 r Richardson [address] [facility] Results Test Description Test Time Test Comments [...] code = MCH) 29.6 pg 27.0-31.0 [facility] MsebdxkGLRHUFOLDQ4642-00-87 06:11:0038.3[facility]ann[facility]MATOLOGY 2018-10-11 06:11:004.30[facility] KvsvzbqMRAIUWWLFT1281-11-78 06:11:0089.1[facility] QqqmahlYVXTNHQGQY9145-03-39 06:11:0012.7[facility] HggrkfpGLYFEUPVVD2076-15-96 06:11:002.9[facility] XyryumrYSCZLCTCJB6677-71-31 06:11:0028.7[facility] Richardson BMAQCZPHXF5457-54-08 06:11:009.5[facility] QaqnthaJKATNMOKBM8727-16-37 06:11:00 58.7[facility] TnxikqtUGTGQWNQSO0198-55-96 06:11:002.6[facility] HermannHEMATOLOGY 2018-10-11 06:11:000.3[facility] FlkqnuaKSNWYRINMN7943-11-39 06:11:000.2[facility] TezktvgHKYBFYBKUE6572-02-91 06:11:005.3[facility] HmprcdaJXVHJQLOGL5416-22-66 06:11:000.9[facility] UabjnhsGMLHOVTDBY9078-38-87 06:11:009.5[facility] Carlos EPQEYDAFOY3371-81-87 06:11:0058.7[facility] LtdtgrqZKTCCOWFXL2740-82-47 06:11:00 2.6[facility] XqorpzcJZKLLFFCBO4349-29-15 06:11:000.3[facility] HermannHEMATOLOGY 2018-10-11 06:11:000.2[facility] RwwypgxQRNWZVJYIG6507-87-21 06:11:005.3[facility] YrfsyueLJEFOLIGBP6922-06-62 06:11:000.9[facility] HermannCHEM ZBXGF2373-56-56 06:11:0073[facility] HermannCHEM LROXP5234-12-09 06:11:0074[facility] HermannCHEM XEALA4598-08-47 06:11:000.93[facility] HermannCHEM RNUSU1320-02-71 06:11:39335 [facility]annCHEM UIRZF9674-45-09 06:11:0018[facility] HermannCHEM PANEL 2018-10-11 06:11:008.9[facility] HermannCHEM TTFCT8750-91-69 06:11:003.9[facility] HermannCHEM URNFI4906-66-69 06:11:19862Jkbzpaty HermannCHEM UAPFI6850-70-20 06:11:0026[facility] HermannCHEM ITVYU5976-88-02 06:11:0011.9[facility] Richardson OJYSSMIOXR4674-91-63 06:11:009.0[facility] DkvmjbeMSBKJTHTLZ2641-18-95 06:11:07235 [facility] ShrahthGAHKHIXDBN5805-09-82 06:11:008.7[facility] HermannHEMATOLOGY 2018-10-11 06:11:0013.6[facility] IaaigtuEMTLXOJWUN6232-83-80 06:11:0033.2[facility] QwsemmiTCTANQOWQB8345-83-79 06:11:00 Test Item Value Reference Range Interpretation Comments MCH (test code = MCH) 29.6 pg 27.0-31.0 Memorial LmhoobsPHYZBDKKIO6597-43-49 06:11:0038.3[facility] HermannHEMATOLOGY 2018-10-11 06:11:004.30[facility] OucwzpgEQFEIXWJFM1710-72-74 06:11:0089.1[facility] MysalowSIFGQZNNAS4790-98-12 06:11:0012.7[facility] NldtsrkDXFHOTERAN6539-98-19 06:11:002.9[facility] HzfiewpHPGXAOXGXT0088-40-11 06:11:0028.7[facility] HermannCHEM JSMXE3824-09-49 06:24:002.0[facility] HermannCHEM IULON3074-55-35 06:24:0068 [facility] HermannCHEM GPXTW3767-78-57 06:24:003.9[facility] HermannCHEM PANEL 2018-10-10 06:24:17021[place] HermannCHEM PDXOH7011-59-02 06:24:03734Hksgpyra HermannCHEM ZVEUP6364-17-90 06:24:001.00[facility] HermannCHEM ZHGNQ6329-46-26 06:24:0090[facility] HermannCHEM FOJHR0561-89-84 06:24:0021[facility] HermannCHEM FPKUI4934-61-02 06:24:0028[facility] HermannCHEM TQLBT8835-01-14 06:24:008.6 [facility] HermannCHEM USIIS0529-35-64 06:24:007.9[facility] HermannCHEM PANEL 2018-10-10 06:24:003.9[facility] RrfczsnTUMOOTONYA6040-39-02 06:24:000.1[facility] BzssoqvPTOBQNNJZM0219-63-40 06:24:000.2[facility] RvivalfIHVKUSSHII3279-11-89 06:24:002.0[facility] QkpwtogLQMNHSJRAE3395-99-75 06:24:002.1[facility] Carlos AYULOPGQAC8668-38-34 06:24:000.8[facility] PdozcmdFZLGNGPPRN2066-73-38 06:24:000.8 [facility] ByqngkrPHLNTPLBVY0126-98-25 06:24:005.4[facility] HermannHEMATOLOGY 2018-10-10 06:24:0024.5[facility] ZvopigcQRIMTKLOCA4411-49-14 06:24:0063.8[facility] NqbfevgVUFMBEZKHD0861-28-07 06:24:008.9[facility] WcznppiXZNLNVVWHM0025-27-19 06:24:62916Lmjkpfig XrxtkmxQUVDTIXKTH0698-19-27 06:24:008.2[facility] Carlos SVPGLPEHUY0610-29-46 06:24:0012.3[facility] NmxwuyqCCIPOTHYGP6108-89-08 06:24:00 4.13[facility] VzineomNFMPQCQMGZ0104-25-98 06:24:008.4[facility] HermannHEMATOLOGY 2018-10-10 06:24:0088.9[facility] HdlowdhFHELCLEHVP5934-51-70 06:24:00 Test Item Value Reference Range Interpretation Comments MCH (test code = MCH) 29.9 pg 27.0-31.0 Memorial VggzsqwRBORDUMLWU2704-09-78 06:24:0036.7[facility] HermannHEMATOLOGY 2018-10-10 06:24:0013.6[facility] CxmppgbBZNGIEVVFF0280-15-25 06:24:0033.6[facility] HermannPARATHYROID PCLEPVG0764-75-19 06:24:001.14[facility] HermannPARATHYROID RBLPNLV5558-80-79 06:24:001.15[facility] HermannCHEM PJHES6537-14-77 06:24:002.0 [facility] HermannCHEM QWTJT9486-88-18 06:24:0068[facility] HermannCHEM PANEL 2018-10-10 06:24:003.9[facility] HermannCHEM DSKTH7380-58-46 06:24:80746Vmifhweg HermannCHEM JYFIO5885-21-33 06:24:33874Gzszqqko HermannCHEM ZJVGA5151-38-95 06:24:001.00[facility] HermannCHEM SPHIA8221-31-71 06:24:0090[facility] HermannCHEM TDLXB2217-94-92 06:24:0021[facility] HermannCHEM VLKSR4156-69-43 06:24:0028 [facility] HermannCHEM ZYXZB7395-14-74 06:24:008.6[facility] HermannCHEM PANEL 2018-10-10 06:24:007.9[facility] HermannCHEM WHVJO5696-67-27 06:24:003.9[facility] CcczxtdYFVCMYRVUK7376-57-46 06:24:000.1[facility] RsmotmdMBBUQNPQDB2744-21-30 06:24:000.2[facility] KadoldgTPVBNTYZWW7019-96-99 06:24:002.0[facility] ABHEUGUOFP8834-52-77 06:24:002.1[facility] VtgsbirHJCEQDTGWW5757-14-13 06:24:000.8 [facility] QjgrblkRQZRGMWFCW2148-73-66 06:24:000.8[facility] HermannHEMATOLOGY 2018-10-10 06:24:005.4[facility] TxlvnnwKPJPYUXNPO5246-46-26 06:24:0024.5[facility] FxcniaxGODMIVAYBF6429-95-48 06:24:0063.8[facility] VczhhagMONCLAMACY6572-62-54 06:24:008.9[facility] RdtfxlzSLSBIPLVVQ8760-72-75 06:24:39840Eqspmbtv Carlos PXMIRZQQON7736-36-67 06:24:008.2[facility] KzsuhkkNUWXTQRALI8263-83-39 06:24:00 12.3[facility] IhgonppPJFZRWRBHS9600-85-45 06:24:004.13[facility] HermannHEMATOLOGY 2018-10-10 06:24:008.4[facility] AfgeycoKENSNRITCN6479-87-33 06:24:0088.9[facility] LixmnuzMQNTGJRGFL8809-46-89 06:24:00 Test Item Value Reference Range Interpretation Comments MCH (test code = MCH) 29.9 pg 27.0-31.0 [facility] XrbttvyJRGDWTIALQ8247-63-05 06:24:0036.7[facility] HermannHEMATOLOGY 2018-10-10 06:24:0013.6[facility] KktmfvsVZOJFOSDLX7767-23-86 06:24:0033.6[facility] HermannPARATHYROID LPLYIAO0597-70-10 06:24:001.14[facility] HermannPARATHYROID OOZCBWW8423-69-07 06:24:001.15[facility] HermannCHEM QOWHE9755-46-77 07:49:003.2 [facility] HermannCHEM SECCM2453-39-37 07:49:001.9[facility] HermannCHEM PANEL 2018-10-09 07:49:0081[facility] HermannCHEM MBXZE1762-32-05 07:49:0010.9[facility] HermannCHEM VBYGH7240-83-86 07:49:008.5[facility] HermannCHEM WMVAK8707-44-28 07:49:003.9[facility] HermannCHEM IGCYN7360-25-98 07:49:95370Vvznogxl HermannCHEM PRTXN2274-35-45 07:49:52949Nglmbzgy HermannCHEM COBLT6563-97-85 07:49:000.96 [facility] HermannCHEM AEDUK8643-07-85 07:49:0017[facility] HermannCHEM PANEL 2018-10-09 07:49:01461Jkmfppyc HermannCHEM LRUDL2840-57-63 07:49:0024[facility] GdboxzdAGGYKQXLPD4444-47-32 07:49:0086.1[facility] DhrbkjaIUYIMLOSPZ8049-28-89 07:49:000.4[facility] QukvfpeSGPUDFCPAQ3476-33-47 07:49:0012.7[facility] Carlos VFYPNGTTXN0326-16-13 07:49:006.3[facility] UugqtypZSNCDEBPQA2216-33-59 07:49:007.2 [facility] BwrvmxuAHXORLYUSM9945-52-72 07:49:000.9[facility] HermannHEMATOLOGY 2018-10-09 07:49:000.1[facility] DohotzpQZWCFYXPNW3387-37-52 07:49:001.1[facility] TdtgsciVRLPDLFYTV1390-61-71 07:49:008.3[facility] OjqmvhcRCLPPKZYTA3065-12-67 07:49:0033.3[facility] VljlogbRJCZRTFOHY7945-37-93 07:49:0013.5[facility] OVNVLJPOIW8369-48-85 07:49:75484Pomerghm IsosogzPCIMPLCHZX7218-42-35 07:49:00 12.8[facility] RighweeNHYIBSLKYP7691-20-78 07:49:0038.4[facility]annHEMATOLOGY 2018-10-09 07:49:0088.1[facility] FiflxenSIPJLSIPMV8302-95-20 07:49:00 Test Item Value Reference Range Interpretation Comments MCH (test code = MCH) 29.4 pg 27.0-31.0 [facility] TwasjmfKVSFHULZWW6667-01-55 07:49:0014.7[facility]annHEMATOLOGY 2018-10-09 07:49:004.36[facility] HermannPARATHYROID FOIEGPI7695-20-63 07:49:00 1.15[facility]annPARATHYROID UBNJNPJ9313-69-25 07:49:001.16[facility] CHEM UNZRT2503-75-20 07:49:003.2[facility]annCHEM YSYEB2346-52-92 07:49:001.9 [facility]annCHEM WVEFL7951-88-90 07:49:0081[facility]annCHEM PANEL 2018-10-09 07:49:0010.9[facility]annCHEM MEHFB6614-09-30 07:49:008.5[facility]annCHEM QFSQL1499-46-60 07:49:003.9[facility]annCHEM FHEVJ2853-56-77 07:49:72928Uqbnqzlf HermannCHEM EFEQM4680-28-39 07:49:87698Dwzffwqh HermannCHEM CZVUU1553-28-64 07:49:000.96[facility]annCHEM IIYLZ0379-77-37 07:49:0017 [facility]annCHEM UJQGU5413-97-77 07:49:78639Iyvzbhuu HermannCHEM PANEL 2018-10-09 07:49:0024[facility] UelgphvCVAYQNUMDS2422-95-69 07:49:0086.1[facility] HjgdnjxGKXRIECVJH3604-98-85 07:49:000.4[facility] KgebhspOGQMLTWRHM7010-66-11 07:49:0012.7[facility] FyahdfiKCKCXWWGTZ3010-11-44 07:49:006.3[facility] ZLCVXOPNBL1152-15-32 07:49:007.2[facility] GjtgkunQACBINVVUM4064-58-38 07:49:000.9 [facility] QzqexjhCUJXTHDJTG2155-00-84 07:49:000.1[facility]annHEMATOLOGY 2018-10-09 07:49:001.1[facility] OserlduWATWYVSRSK8815-40-22 07:49:008.3[facility] HmuflbrVMVGKJUAGD0877-40-85 07:49:0033.3[facility] SubrvyiTOVGPVMTBH7859-53-87 07:49:0013.5[facility] RwqmacmDWECHETDXI9082-87-47 07:49:33874Zhdsvqwc Carlos ZOXDLWLSTO0427-91-94 07:49:0012.8[facility] OrbizhtQKRPJVBNFJ0605-30-70 07:49:00 38.4[facility] NnhvftmDMIDVCNFFE4530-36-22 07:49:0088.1[facility]annHEMATOLOGY 2018-10-09 07:49:00 Test Item Value Reference Range Interpretation Comments MCH (test code = MCH) 29.4 pg 27.0-31.0 [facility] IyjfowdMXMAJWDSAJ4107-62-36 07:49:0014.7[facility]annHEMATOLOGY 2018-10-09 07:49:004.36[facility] HermannPARATHYROID NVFKSQJ9711-90-52 07:49:00 1.15[facility] HermannPARATHYROID XNUCFQC9020-25-70 07:49:001.16[facility] CARDIAC IKGWLHZ2201-82-35 18:27:00<0.02[facility] HermannCARDIAC ENZYMES 2018-10-08 18:27:00<0.02[facility]annURINE AND CGVKK1001-87-79 15:59:00 Negative *NA*(10/08/18 9:59 AM)[facility] ETCZF8721-81-45 15:59:00 Negative (10/08/18 9:59 AM)[facility] IPORA7617-46-29 15:59:00 Negative *NA*(10/08/18 9:59 AM)[facility] YROIF7903-29-52 15:59:00 Test Item Value Reference Range Interpretation Comments UA Spec Grav (test code = UA Spec 1.010 1 Grav) [facility] YKGKN0245-25-28 15:59:00 Test Item Value Reference Range Interpretation Comments UA pH (test code = UA pH) 6.0 1 5.0-8.0 [facility] NURVK8255-54-76 15:59:00Yellow *NA*(10/08/18 9:59 AM) [facility] YKSYW8066-82-64 15:59:00Clear (10/08/18 9:59 AM)[facility] ENDEY5328-82-25 15:59:00Negative (10/08/18 9:59 AM)[facility] XOCMM0680-68-03 15:59:00Negative (10/08/18 9:59 AM)[facility] DKCZB9482-64-71 15:59:00Small *ABN*(10/08/18 9:59 AM)[facility] QFBZA9142-29-03 15:59:00Negative (10/08/18 9:59 AM)[facility] UTKEH2121-53-05 15:59:000.2[facility] STOOL 2018-10-08 15:59:00Negative *NA*(10/08/18 9:59 AM)[facility] STOOL 2018-10-08 15:59:00Negative (10/08/18 9:59 AM[facility]:59:00Negative *NA*(10/08/18 9:59 AM)[facility] 2018-10-08 15:59:00 Test Item Value Reference Range Interpretation Comments UA Spec Grav (test code = UA Spec 1.010 1 Grav) [facility] [id number] 15:59:00 Test Item Value Reference Range Interpretation Comments UA pH (test code = UA pH) 6.0 1 5.0-8.0 [facility] [id number] 15:59:00Yellow *NA*(10/08/18 9:59 AM) [facility] [id number] 15:59:00Clear (10/08/18 9:59 AM)[facility] [id number] 15:59:00Negative (10/08/18 9:59 AM)[facility] [id number] 15:59:00Negative (10/08/18 9:59 AM)[facility] [id number] 15:59:00Small *ABN*(10/08/18 9:59 AM)[facility] AND [id number] 15:59:00Negative (10/08/18 9:59 AM)[facility] AND [id number] 15:59:000.2[facility] GszgbmqEUBRYPARHX9856-78-84 15:21:00 Test Item Value Reference Range Interpretation Comments PTT (test code = PTT) 36.[address] [facility]JDMAXMJEVL6709-49-33 15:21:00 Test Item Value Reference Range Interpretation Comments PT (test code = PT) 13.3 s 12.0-14.[address] [facility]ZotmurmYJXZCTCAXS2185-07-38 15:21:00 Test Item Value Reference Range Interpretation Comments INR (test code = INR) 1.03 1 0.85-1.[address] [facility]PmcpdptRFFRFBFXPE5349-26-20 15:21:00 Test Item Value Reference Range Interpretation Comments Split Point Rapid (test code = Split 0.6 min Point Rapid) [facility] HospitalVioomjpDFSZJQHBAH1711-28-99 15:21:00 Test Item Value Reference Range Interpretation Comments R-time Rapid (test code = R-time 0.7 min 0.4-0.7 Rapid) [facility] HospitalNpvyeccZMKETWGNOB3205-88-12 15:21:00 Test Item Value Reference Range Interpretation Comments ACT (TEG) Rapid (test code = ACT (TEG) 113 s 86-118 Rapid) [facility] HospitalHaazcsvPMRJKALCQR2306-92-50 15:21:0015.0[facility] 2018-10-08 15:21:00 Test Item Value Reference Range Interpretation Comments K-time Rapid (test code = K-time 0.8 min 0.6-2.3 Rapid) [facility] HospitalNlhflpcQLXWXPHWPY8634-95-06 15:21:000.3[facility] 2018-10-08 15:21:00 Test Item Value Reference Range Interpretation Comments Angle Rapid (test code = Angle 79 degrees 64-80 Rapid) [facility] HospitalXsqdrdmRKTDFHJIFT1634-77-26 15:21:00 Test Item Value Reference Range Interpretation Comments Max Amplitude Rapid (test code = Max 75 mm 52-71 Amplitude Rapid) [facility] HospitalMiimkdpWDLONAWXSM3303-85-18 15:21:00 Test Item Value Reference Range Interpretation Comments PTT (test code = PTT) 36.5 s 22.9-35.[address] [facility]AvbaijcBIUKBOMCKK9731-85-25 15:21:00 Test Item Value Reference Range Interpretation Comments PT (test code = PT) 13.3 s 12.0-14.[address] [facility] HospitalBsccoltZIGHEMILQS9898-99-09 15:21:00 Test Item Value Reference Range Interpretation Comments INR (test code = INR) 1.03 1 0.85-1.[address] [facility] HospitalTojpiooIAZQLRSVGE5793-85-70 15:21:00 Test Item Value Reference Range Interpretation Comments Split Point Rapid (test code = Split 0.6 min Point Rapid) [facility] HospitalYarmwmoQAEWFYORTS9528-01-86 15:21:00 Test Item Value Reference Range Interpretation Comments R-time Rapid (test code = R-time 0.7 min 0.4-0.7 Rapid) [facility] HospitalPbpbysnSTBXZJDNFP2861-24-44 15:21:00 Test Item Value Reference Range Interpretation Comments ACT (TEG) Rapid (test code = ACT (TEG) 113 s 86-118 Rapid) [facility] HospitalOydjgkwHNCKVSZWYS4087-73-25 15:21:0015.0[facility] 2018-10-08 15:21:00 Test Item Value Reference Range Interpretation Comments K-time Rapid (test code = K-time 0.8 min 0.6-2.3 Rapid) [facility] HospitalScgtdzsMEIZLHGDWA0717-90-73 15:21:000.3[facility]annHE[facility] 2018-10-08 15:21:00 Test Item Value Reference Range Interpretation Comments Angle Rapid (test code = Angle 79 degrees 64-80 Rapid) [facility] HospitalFqnvzsbLGATIAYEBU8143-77-33 15:21:00 Test Item Value Reference Range Interpretation Comments Max Amplitude Rapid (test code = Max 75 mm 52-71 Amplitude Rapid) [facility] [id number] 15:20:00Negative (10/08/18 9:20 AM) [facility] [id number] 15:20:00Negative (10/08/18 9:20 AM) [facility] [id number] 15:18:00<0.02[facility] [id number] 15:18:003.9[facility]annCHE[facility] WMXYU3708-82-13 15:18:001.9 [facility] [id number] 15:18:000.8[facility]HE[facility] 2018-10-08 15:18:000.1[facility] AadhmbkPGFAXHFAJI5949-85-57 15:18:000.1[facility] ZmvuupiPDCSKAGGAY0741-10-46 15:18:001.8[facility]annCARD[facility]AC AIVICVF0921-17-91 15:18:00<0.02[facility]annCHEM BWDFN3725-19-64 15:18:003.9[facility]annCHE[facility] CNAPU5162-12-08 15:18:001.9[facility]annCHEM OYILU8352-85-22 15:18:000.8[facility] ZutjqnyAEXDQLIFVR9382-03-67 15:18:000.1[facility] ZNEKJEQUHN0897-68-85 15:18:000.1[facility] EjbttvjPNFEZBJTTO9162-71-00 15:18:001.8 [facility]
== END 2021-06-13 23:24 | disposition home or self-care (01) ==
LOC: ER 18:40
DX: R10.13 Epigastric pain (principal)
CPT/HCPCS: 96361; 93005; 85025; 80048; 36415; 80076; 81003; 84484; 83690; 74177; 76705; 96375; 96374; 99285; Q9967; J7030; J2405

== ENCOUNTER 2021-07-21 07:26 | Emergency (ER) | payer OTHER ==
--- OUTSIDE RECORDS SUMMARY | 2021-07-21 07:31 | XMS REPORT | Continuity of Care Document ---
:1970 Author Organization [facility] t Address [address] [place] [address] Support Name Relationship Address Phone Joseph Lauren [address] [place] [address] L Ruiz Relative [address] [place] [address] N Dubose Child [address] [place] [address] Sedrick Unavailable [address] [phone] [place] [address] Sedrick Unavailable [address] [phone] [place] [address] SEDRICK, N E [address] [place] [address] Savi RUIZ Relative [address] [place] [address] Care Team Providers Name Role Phone Norma VELEZ Primary Care Physician Unavailable KEREN Attending Clinician Unavailable [facility]rodynamics, Bls Urogyn Attending Clinician Unavailable Brittnee Wolf Attending Clinician Doctor Unassigned, Name Attending Clinician Unavailable Payers Payer Name Policy Type Policy Number Effective Date Expiration Date S [place] [employer] [id number] 2019 HEALTH 00:00:00 Problems Condition Condition Condition Status Onset Resolution Last Treating Co mments Source Name Details Category Date Date Treatment Clinician Date CHRONIC Diagnosis Active 2019-02-01 Me moria SDH - 10:05:00 l CHRONIC 00:00: Maxwell SDH 00 Active 10/08/2018 [facility] NON Diagnosis Active 2018-10-08 Mem oria SUBACUTE 10-08 10:22:00 l TRAUMATIC NON 00:00: Carlos SUBDURAL SUBACUTE 00 HEMATOMA TRAUMATIC SUBDURAL HEMATOMA Active 10/08/2018 [facility] Status Status Disease Active [facility] post post 09-30 ity of vaginal vaginal 00:00: [place] hysterecto [...] Active Problem 04/08/2019 [facility], OPID Carlos, OPID [place] NONTRAUMAT Diagnosis Active 2019-02-01 Memoria IC CHRONIC 10:05:00 l SUBDURAL Maxwell HEMORRHAGE NONTRAUMAT IC CHRONIC SUBDURAL HEMORRHAGE Active [facility] Allergies, Adverse Reactions, Alerts [...] penicill Active Memori a in in l Maxwell Social History Social Habit Start Date Stop Date Quantity Comments Source Exposure to Not sure [facility] SARS-CoV-2 (event) Medica l Branch Alcohol intake 2021-07-20 2021-07-20 0 /d [facility] 00:00:00 00:00:00 Medical Branch Sex Ass[birth year] At [birth year] [facility] 00:00:00 00:00:00 Medical Branch Smoking Status Start Date Stop Date Source Never smoker [facility] Medical Branch Medications Ordered Filled Start Stop Current Ordering Indication Dosage Frequency Signature Comments Components Source Medication Medication Date Date Medication? Clinician (SIG) Name Name NAPROXEN 2020-08 Yes 1{tbl} Take 1 Unive rs ORAL 0-29 tablet by ity of 10:13: mouth. [address] DULoxetine 2020-08 Yes 20mg Take 20 mg U nivers 20 mg 0-29 by mouth ity of capsule 10:13: daily. [address] traMADoL 2019-08 Yes [id number] 50mg Take 1 [facility] (ULTRAM) 50 2-02 tablet by ity of mg tablet 00:00: mouth [place] 00 every 6 Medical (six) Branch hours as needed for Pain (scale 7-10). Indication s: acute pain methocarbam 2019-08 Yes [id number] 750mg Take 1 [facility] oL 750 mg 2-02 tablet by ity o f tablet 00:00: mouth [place] 00 every 6 Medical (six) Branch hours as needed (MUSCLE SPASM). cetirizine Yes [id number] 10mg Take 1 [facility] 10 mg 3-16 tablet by ity of tablet 00:00: mouth [place] 00 daily. Medical Branch fluticasone Yes [id number] 2{spray Use 2 [facility] propionate 3-16 } Sprays in ity of 50 00:00: each [place] mcg/actuati 00 nostril Medic al on nasal daily. Branch spray methocarbam Yes 500 mg = 1 Memoria [...] / 15:24: Wheezing, Carlos Ipratropium 00 0 [place] Refill(s) 0.167 MG/ML Inhalant Solution Acetaminoph Yes [...] H ermann 00 tab, 0 Refill(s) Albuterol Yes 3 mL, NEB, Me moria 0.833 MG/ML 3-06 RQ4H, PRN l / 15:24: Wheezing, Maxwell Ipratropium 00 0 [place] Refill(s) 0.167 MG/ML Inhalant Solution Acetaminoph Yes 100.4 F, M emoria en 325 MG 3-06 0 l Oral Tablet 15:24: Refill(s) H erm Bisacodyl No Notes: Memori a 3-05 (Same As: l 20:47: Dulcolax, Maxwell 00 Bisco-Lax) Bisacodyl No Notes: Memori a 3-05 (Same As: l 20:47: Dulcolax, Carlos 00 Bisco-Lax) Tramadol No Notes: Not Mem oria 3-05 to exceed l 19:56: 400mg/day. Maxwell 00 (Same As: Ultram) Tramadol No Notes: Not Mem oria 3-05 to exceed l 19:56: 400mg/day. Carlos 00 (Same As: Ultram) heparin No Notes: Memoria 3-05 porcine l 05:55: heparin Carlos heparin No Notes: Memoria 3-05 porcine l 05:55: heparin Maxwell remove No 1 patch, Memoria patch 3-05 Route: l 03:00: TOP, Maxwell 00 Bedtime, Drug form: ERFILM, Start date: 10/09/18 21:00:00 [employer] SOL[employer]IONS ARCHITECT, Duration: 30 day, Stop date: 11/07/18 21:00:00 CDT remove No 1 patch, Memoria patch 3-05 Route: l 03:00: TOP, Carlos 00 Bedtime, Drug form: ERFILM, Start date: 10/09/18 21:00:00 [employer] SOL[employer]IONS ARCHITECT, Duration: 30 day, Stop date: 11/07/18 21:00:00 CDT Robaxin No Notes: Memoria 3-04 (Same l 19:00: as:Robaxin ) Robaxin No Notes: Memoria 3-04 (Same l 19:00: as:Robaxin Maxwell 00 ) Lyrica No Notes: Memoria 3-04 (Same as: l 15:18: Lyrica) Maxwell 00 Lyrica No Notes: Memoria 3-04 (Same as: l 15:18: Lyrica) Carlos 00 Miralax No Notes: Memoria 3-04 Dissolve l 15:17: in 8 oz of Maxwell 00 water or juice. (Same as: Miralax) Miralax No Notes: Memoria 3-04 Dissolve l 15:17: in 8 oz of Maxwell 00 water or juice. (Same as: Miralax) Lidocaine No 1 patch, Edison anny 0.05 MG/MG 3-04 Route: l Transdermal 15:00: TOP, Narinder n Patch 00 Daily, Drug form: FILM, Start date: 10/09/18 9:00:00 [employer] SOL[employer]IONS ARCHITECT, Duration: 30 day, Stop date: 11/07/18 9:00:00 CDT Lidocaine No 1 patch, Edison anny 0.05 MG/MG 3-04 Route: l Transdermal 15:00: TOP, Narinder n Patch 00 Daily, Drug form: FILM, Start date: 10/09/18 9:00:00 [employer] SOLUTIONS ARCHITECT, Duration: 30 day, Stop date: 11/07/18 9:00:00 CDT Tramadol No Notes: Not Mem oria 3-04 to exceed l 04:24: 400mg/day. Carlos (Same As: Ultram) Tramadol No Notes: Not Mem oria 3-04 to exceed l 04:24: 400mg/day. Maxwell 00 (Same As: Ultram) Keppra No Notes: Memoria 3-04 (Same l 03:00: as:Keppra) Saline No Notes: Memoria Flush 0.9% 3-04 (Same as: l 03:00: BD Carlos 00 Posiflush) Levetiracet 2019-0 No Notes: Memoria am 3-04 MEDICATION l 03:00: WASTE Product Size: 500 mg Product Wasted: ___ mg sennosides, No Notes: Edison anny GROUP HOME 3-04 (Same as: l 03:00: Senokot) Docusate No 100 mg, 1 Edison anny 3-04 cap, l 03:00: Route: PO, Carlos 00 Drug form: CAP, Q12H, Dosing Weight 95.455, kg, Start date: 10/08/18 21:00:00 [employer] SOL[employer]IONS ARCHITECT, Duration: 30 day, Stop date: 11/07/18 9:00:00 CDT Keppra No Notes: Memoria 3-04 (Same l 03:00: as:Keppra) Saline No Notes: Memoria Flush 0.9% 10-09 (Same as: l 03:00: BD Posiflush) Levetiracet No Notes: Memoria am 3-04 MEDICATION l 03:00: WASTE Product Size: 500 mg Product Wasted: ___ mg sennosides, No Notes: Edison anny GROUP HOME 3-04 (Same as: l 03:00: Senokot) Docusate No 100 mg, 1 Edison anny 3-04 cap, l 03:00: Route: PO, Carlos 00 Drug form: CAP, Q12H, Dosing Weight 95.455, kg, Start date: 10/08/18 21:00:00 [employer] SOL[employer] ARCHITECT, Duration: 30 day, Stop date: 11/07/18 9:00:00 CDT Vancomycin 2018-0 No 2001 mg: Me moria 3-04 infuse l 00:00: over 2.5 Carlos 00 hours For adult patients only: Round to nearest 250 mg per Medical Staff approval MEDICATION WASTE Product Size: 1000 mg Product Wasted: ___ mg Vancomycin 2018- No 2001 mg: Me moria 3-04 infuse l 00:00: over 2.5 Carlos 00 hours For adult patients only: Round to nearest 250 mg per Medical Staff approval MEDICATION WASTE Product Size: 1000 mg Product Wasted: ___ mg Artificial 2019-0 No 2 drp, Memor ia Tears 3- Route: l 23:00: BOTH EYES, Maxwell BID, Drug form: SOLN, Start date: 10/08/18 17:00:00 [employer] SOL[employer] ARCHITECT, Duration: 30 day, Stop date: 11/07/18 9:00:00 CDT Artificial 2019-0 No 2 drp, Memor ia Tears 3- Route: l 23:00: BOTH EYES, Carlos 00 BID, Drug form: SOLN, Start date: 10/08/18 17:00:00 [employer] SOL[employer]IONS ARCHITECT, Duration: 30 day, Stop date: 11/07/18 9:00:00 CDT Vancomycin 2019-0 No 1 gm, Memori a 3-03 Route: IV, l 22:00: Q8H, Dosing Weight 95.455, kg, Start date: 10/08/18 16:00:00 SAP SOLUTIONS ARCHITECT, Duration: 1 day, Stop date: 10/09/18 8:00:00 SAP SOLUTIONS ARCHITECT, ABX Indication : Surgical Prophylaxi s Vancomycin 2019-0 No 1 gm, Memori a 3-03 Route: IV, l 22:00: Q8H, Dosing Weight 95.455, kg, Start date: 10/08/18 16:00:00 SAP SOLUTIONS ARCHITECT, Duration: 1 day, Stop date: 10/09/18 8:00:00 SAP SOLUTIONS ARCHITECT, ABX Indication : Surgical Prophylaxi s Glucagon 2019-0 No 1 mg, Memoria 3-03 Route: IM, l 20:19: Drug form: Carlos PDR/INJ, PRN, Dosing Weight 95.455, kg, PRN Blood Glucose Results, Start date: 10/08/18 14:19:00 SAP SOLUTIONS ARCHITECT, Duration: 30 day, Stop date: 11/07/18 15:18:00 CDT Dextrose 2019-0 No 25 gm, 50 Edison anny 50% Syringe 3-03 mL, Route: l 20:19: IVP, Drug Form: INJ, Dosing Weight 95.455, kg, PRN, PRN Blood Glucose Results, Start date: 10/08/18 14:19:00 SAP SOLUTIONS ARCHITECT, Duration: 30 day, Stop date: 11/07/18 15:18:00 CDT Insulin 2019-0 No 60 Memoria regular 3-03 units) l 20:19: WASTE: F/P Carlos 00 - Black; E - Municipal Trash Bin Stable for 28 days at room temperatur e Expires in days from ____Date Glucagon 2019-0 No 1 mg, Memoria 3-03 Route: IM, l 20:19: Drug form: Carlos PDR/INJ, PRN, Dosing Weight 95.455, kg, PRN Blood Glucose Results, Start date: 10/08/18 14:19:00 SAP SOLUTIONS ARCHITECT, Duration: 30 day, Stop date: 11/07/18 15:18:00 CDT Dextrose 2019-0 No 25 gm, 50 Edison anny 50% Syringe 3-03 mL, Route: l 20:19: IVP, Drug Form: INJ, Dosing Weight 95.455, kg, PRN, PRN Blood Glucose Results, Start date: 10/08/18 14:19:00 SAP SOLUTIONS ARCHITECT, Duration: 30 day, Stop date: 11/07/18 15:18:00 CDT Insulin 2019-0 No 60 Memoria regular 3-03 units) l 20:19: WASTE: F/P Carlos 00 - Black; E - Municipal Trash Bin Stable for 28 days at room temperatur e Expires in days from ____Date Potassium 2018-0 No Notes: Memori a Chloride 3- (Same as: l 20:18: KCL) Carlos 00 Infuse over 2 hours. Calcium No Notes: Memoria Gluconate 3-03 WASTE: F/P l 20:18: - Sink; E Maxwell - Municipal Trash Bin Magnesium 2018- No Notes: Memori a Oxide 3-03 (Same as: l 20:18: Mag-Ox Maxwell 00 400) Magnesium oxide 357oi=395g g elemental magnesium Dose=____m g magnesium oxide (___mg elemental magnesium) Calcium No Notes: Memoria Carbonate 3-03 (Same As: l 500 MG 20:18: Tums) Maxwell Chewable 00 Calcium Tablet Carbonate 500 mg = 200 mg elemental calcium Dose = mg calcium carbonate ( mg elemental calcium) potassium No Notes: Memori a phosphate 3-03 (Same as: l 20:18: K Maxwell 00 Phosphate. ) Do not infuse phosphorou s concurrent ly in the same line as TPN or IVF that contains calcium. For double lumen central lines, phosphorou s may be infused in a separate lumen from TPN. 1 mMol phoshate has 1.47 mEq potassium Infuse over 4 hours potassium No Notes: Memori a phosphate-s 3-03 (Same as: l odium 20:18: Phos-NaK) Carlos phosphate 00 Each 1.5 250 mg-280 gm pkt has mg-160 mg 250mg oral powder phosphorou for s. Mix reconstitut w/2.5oz ion water and stir. Magnesium No Notes: Memori a Sulfate - WASTE: F/P l 20:18: - Sink; E Carlos - Municipal Trash Bin sodium No Notes: Memoria phosphate 3-03 Infuse l 20:18: over 4 Maxwell 00 hour. Do not infuse phosphorou s concurrent ly in the same line as TPN or IVF that contains calcium. For double lumen central lines, phosphorou s may be infused in a separate lumen from TPN. Potassium No Notes: Memori a Chloride 3-03 (Same as: l 20:18: KCL) 00 Infuse over 2 hours. Calcium No Notes: Memoria Gluconate 3- WASTE: F/P l 20:18: - Sink; E - Municipal Trash Bin Magnesium No Notes: Memori a Oxide 3-03 (Same as: l 20:18: Mag-Ox Carlos 00 400) Magnesium oxide 727sq=925x g elemental magnesium Dose=____m g magnesium oxide (___mg elemental magnesium) Calcium No Notes: Memoria Carbonate 3-03 (Same As: l 500 MG 20:18: Tums) Maxwell Chewable 00 Calcium Tablet Carbonate 500 mg = 200 mg elemental calcium Dose = mg calcium carbonate ( mg elemental calcium) potassium No Notes: Memori a phosphate 3-03 (Same as: l 20:18: K Maxwell 00 Phosphate. ) Do not infuse phosphorou s concurrent ly in the same line as TPN or IVF that contains calcium. For double lumen central lines, phosphorou s may be infused in a separate lumen from TPN. 1 mMol phoshate has 1.47 mEq potassium Infuse over 4 hours potassium No Notes: Memori a phosphate-s 3-03 (Same as: l odium 20:18: Phos-NaK) Maxwell phosphate 00 Each 1.5 250 mg-280 gm pkt has mg-160 mg 250mg oral powder phosphorou for s. Mix reconstitut w/2.5oz ion water and stir. Magnesium No Notes: Memori a Sulfate - WASTE: F/P l 20:18: - Sink; [...] PRN Hypertensi on, Start date: 10/08/18 14:13:00 SAP SOLUTIONS ARCHITECT, Duration: 30 day, Stop date: 11/07/18 14:12:00 CDT Hydralazine No Notes: Edison anny 3-03 (Same as: l 20:13: Apresoline ) Push over 5 minutes Labetalol No 10 mg, 2 Edison anny 3-03 mL, Route: l 20:13: IVP, Drug form: INJ, Q4H, Dosing Weight 95.455, kg, PRN Hypertensi on, Start date: 10/08/18 14:13:00 SAP SOLUTIONS ARCHITECT, Duration: 30 day, Stop date: 11/07/18 14:12:00 CDT sugammadex 2019-0 No Route: IV, Norma emoria (ANES) 10-08 Drug form: l 18:30: SOLN, Carlos 00 ONCE, Stop date: 10/08/18 12:30:00 SAP SOLUTIONS ARCHITECT sugammadex 2019-0 No Route: IV, Norma emoria (ANES) 10-08 Drug form: l 18:30: SOLN, Maxwell 00 ONCE, Stop date: 10/08/18 12:30:00 SAP SOLUTIONS ARCHITECT Hydralazine 2019-0 No 10 mg, Edison anny 10-08 Route: l 18:18: IVP, Carlos 00 Q20Min, Dosing Weight 95.455, kg, PRN Elevated BP, Start date: 10/08/18 12:18:00 SAP SOLUTIONS ARCHITECT, Duration: 2 doses or times, Stop date: Limited # of times Labetalol 2019-0 No 10 mg, 2 Edison anny -03 mL, Route: l 18:18: IVP, Drug form: INJ, Q5Min, Dosing Weight 95.455, kg, PRN Elevated BP, Start date: 10/08/18 12:18:00 SAP SOLUTIONS ARCHITECT, Duration: 5 doses or times, Stop date: 10/09/18 0:00:00 SAP SOLUTIONS ARCHITECT Acetaminoph 2019-0 No 1,000 mg, M emoria en 10-08 Route: PO, l 18:18: Drug form: Carlos 00 TAB, ONCE, Dosing Weight 95.455, kg, PRN Pain Score 1-3, Start date: 10/08/18 12:18:00 SAP SOLUTIONS ARCHITECT Promethazin 2019-0 No 6.25 mg, Me moria e 10-08 Route: l 18:18: IVPB, Maxwell 00 ONCE, Dosing Weight 95.455, kg, PRN Nausea & Vomiting, Start date: 10/08/18 12:18:00 SAP SOLUTIONS ARCHITECT Ondansetron 2019-0 No 4 mg, Memor ia 10-08 Route: l 18:18: IVP, ONCE, Dosing Weight 95.455, kg, PRN Nausea & Vomiting, Start date: 10/08/18 12:18:00 SAP SOLUTIONS ARCHITECT Dexamethaso 2019-0 No 4 mg, Memor ia ne 10-08 Route: l 18:18: IVP, ONCE, Dosing Weight 95.455, kg, PRN Nausea & Vomiting, Start date: 10/08/18 12:18:00 SAP SOLUTIONS ARCHITECT Naloxone 2019-0 No 0.4 mg, Memori a 3- Route: l 18:18: IVP, Carlos 00 Q2MIN, Dosing Weight 95.455, kg, PRN Narcotic Reversal, Start date: 10/08/18 12:18:00 SAP SOLUTIONS ARCHITECT, Duration: 8 doses or times, Stop date: Limited # of times Flumazenil 2019-0 No 0.2 mg, Edison anny 3- Route: l 18:18: IVP, PRN, Maxwell 00 Dosing Weight 95.455, kg, PRN Benzodiaze pine Reversal, Initial dose, Start date: 10/08/18 12:18:00 SAP SOLUTIONS ARCHITECT, Duration: 30 day, Stop date: 11/07/18 13:17:00 CDT Hydromorpho 2019-0 No 0.5 mg, Mem oria ne 3 Route: l 18:18: IVP, Carlos 00 Q5Min, Dosing Weight 95.455, kg, PRN Pain Score 7-10, Start date: 10/08/18 12:18:00 SAP SOLUTIONS ARCHITECT, Duration: 4 doses or times, Stop date: Limited # of times Hydralazine 2019-0 No 10 mg, Edison anny 3-03 Route: l 18:18: IVP, Maxwell 00 Q20Min, Dosing Weight 95.455, kg, PRN Elevated BP, Start date: 10/08/18 12:18:00 SAP SOLUTIONS ARCHITECT, Duration: 2 doses or times, Stop date: Limited # of times Labetalol 2019-0 No 10 mg, 2 Edison anny 3-03 mL, Route: l 18:18: IVP, Drug Carlos 00 form: INJ, Q5Min, Dosing Weight 95.455, kg, PRN Elevated BP, Start date: 10/08/18 12:18:00 SAP SOLUTIONS ARCHITECT, Duration: 5 doses or times, Stop date: 10/09/18 0:00:00 SAP SOLUTIONS ARCHITECT Acetaminoph 2019-0 No 1,000 mg, M emoria en 3-03 Route: PO, l 18:18: Drug form: Carlos 00 TAB, ONCE, Dosing Weight 95.455, kg, PRN Pain Score 1-3, Start date: 10/08/18 12:18:00 SAP SOLUTIONS ARCHITECT Promethazin 2019-0 No 6.25 mg, Me moria e 10-08 Route: l 18:18: IVPB, Carlos 00 ONCE, Dosing Weight 95.455, kg, PRN Nausea & Vomiting, Start date: 10/08/18 12:18:00 SAP SOLUTIONS ARCHITECT Ondansetron 2019-0 No 4 mg, Memor ia 3 Route: l 18:18: IVP, ONCE, Dosing Weight 95.455, kg, PRN Nausea & Vomiting, Start date: 10/08/18 12:18:00 SAP SOLUTIONS ARCHITECT Dexamethaso 2019-0 No 4 mg, Memor ia ne 10-08 Route: l 18:18: IVP, ONCE, Dosing Weight 95.455, kg, PRN Nausea & Vomiting, Start date: 10/08/18 12:18:00 SAP SOLUTIONS ARCHITECT Naloxone 2019-0 No 0.4 mg, Memori a 10-08 Route: l 18:18: IVP, Maxwell 00 Q2MIN, Dosing Weight 95.455, kg, PRN Narcotic Reversal, Start date: 10/08/18 12:18:00 SAP SOLUTIONS ARCHITECT, Duration: 8 doses or times, Stop date: Limited # of times Flumazenil 2018-0 No 0.2 mg, Edison anny 10-08 Route: l 18:18: IVP, PRN, Dosing Weight 95.455, kg, PRN Benzodiaze pine Reversal, Initial dose, Start date: 10/08/18 12:18:00 SAP SOLUTIONS ARCHITECT, Duration: 30 day, Stop date: 11/07/18 13:17:00 CDT Hydromorpho 2018-0 No 0.5 mg, Mem oria ne 10-08 Route: l 18:18: IVP, Maxwell 00 Q5Min, Dosing Weight 95.455, kg, PRN Pain Score 7-10, Start date: 10/08/18 12:18:00 SAP SOLUTIONS ARCHITECT, Duration: 4 doses or times, Stop date: Limited # of times sugammadex 2018-0 No Notes: Memor ia 3-03 (Same as: l 18:00: [place]) sugammadex 2018-0 No Notes: Memor ia 3-03 (Same as: l 18:00: [place]) famotidine 2018-0 No Route: IV, M emoria (ANES) 3-03 Drug form: l 17:59: INJ, ONCE, Stop date: 10/08/18 11:59:00 SAP SOLUTIONS ARCHITECT metoclopram 2019-0 No Route: IV, Memoria anais (ANES) 10-08 Drug form: l 17:59: INJ, ONCE, Stop date: 10/08/18 11:59:00 SAP SOLUTIONS ARCHITECT ondansetron 2019-0 No Route: IV, Memoria (ANES) 10-08 Drug form: l 17:59: INJ, ONCE, Stop date: 10/08/18 11:59:00 SAP SOLUTIONS ARCHITECT famotidine 2018-0 No Route: IV, M emoria (ANES) 10-08 Drug form: l 17:59: INJ, ONCE, Stop date: 10/08/18 11:59:00 SAP SOLUTIONS ARCHITECT metoclopram 2019-0 No Route: IV, Memoria anais (ANES) 10-08 Drug form: l 17:59: INJ, ONCE, Stop date: 10/08/18 11:59:00 SAP SOLUTIONS ARCHITECT ondansetron 2018-0 No Route: IV, Memoria (ANES) 10-08 Drug form: l 17:59: INJ, ONCE, Stop date: 10/08/18 11:59:00 SAP SOLUTIONS ARCHITECT phenylephri 2018-0 No Route: IV, Memoria ne (ANES) 10-08 Drug form: l 17:57: INJ, ONCE, Stop date: 10/08/18 11:57:00 SAP SOLUTIONS ARCHITECT phenylephri 2018-0 No Route: IV, Memoria ne (ANES) 10-08 Drug form: l 17:57: INJ, ONCE, Stop date: 10/08/18 11:57:00 SAP SOLUTIONS ARCHITECT lidocaine 2019-0 No Route: IV, Me moria (ANES) 10-08 Drug form: l 17:51: INJ, ONCE, Stop date: 10/08/18 11:51:00 SAP SOLUTIONS ARCHITECT dexamethaso 2018-0 No Route: IV, Memoria ne (ANES) 10-08 Drug form: l 17:51: INJ, ONCE, Stop date: 10/08/18 11:51:00 SAP SOLUTIONS ARCHITECT propofol 2019-0 No Route: IV, Mem oria (ANES) 10-08 Drug form: l 17:51: INJ, ONCE, Stop date: 10/08/18 11:51:00 SAP SOLUTIONS ARCHITECT rocuronium 2019-0 No Route: IV, M emoria (ANES) 10-08 Drug form: l 17:51: INJ, ONCE, Stop date: 10/08/18 11:51:00 SAP SOLUTIONS ARCHITECT levETIRAcet 2019-0 No Route: IV, Memoria am (ANES) 10-08 Drug form: l 17:51: INJ, ONCE, Stop date: 10/08/18 11:51:00 SAP SOLUTIONS ARCHITECT fentaNYL 2019-0 No Route: IV, Mem oria (ANES) 10-08 Drug form: l 17:51: INJ, ONCE, Stop date: 10/08/18 11:51:00 SAP SOLUTIONS ARCHITECT lidocaine 2019-0 No Route: IV, Me moria (ANES) 10-08 Drug form: l 17:51: INJ, ONCE, Stop date: 10/08/18 11:51:00 SAP SOLUTIONS ARCHITECT dexamethaso 2018-0 No Route: IV, Memoria ne (ANES) 10-08 Drug form: l 17:51: INJ, ONCE, Stop date: 10/08/18 11:51:00 SAP SOLUTIONS ARCHITECT propofol 2019-0 No Route: IV, Mem oria (ANES) 10-08 Drug form: l 17:51: INJ, ONCE, Stop date: 10/08/18 11:51:00 SAP SOLUTIONS ARCHITECT rocuronium 2019-0 No Route: IV, M emoria (ANES) 10-08 Drug form: l 17:51: INJ, ONCE, Stop date: 10/08/18 11:51:00 SAP SOLUTIONS ARCHITECT levETIRAcet 2019-0 No Route: IV, Memoria am (ANES) 10-08 Drug form: l 17:51: INJ, ONCE, Stop date: 10/08/18 11:51:00 SAP SOLUTIONS ARCHITECT fentaNYL 2019-0 No Route: IV, Mem oria (ANES) 10-08 Drug form: l 17:51: INJ, ONCE, Stop date: 10/08/18 11:51:00 SAP SOLUTIONS ARCHITECT propofol 2019-0 No Route: IV, Mem oria (ANES) 10 10-08 Drug form: l mg 16:30: INJ, Start date: 10/08/18 10:30:00 SAP SOLUTIONS ARCHITECT, Stop date: 10/08/18 11:30:00 SAP SOLUTIONS ARCHITECT remifentani 2019-0 No Route: IV, Memoria l (ANES) 1 10-08 Drug form: l mg 16:30: INJ, Start date: 10/08/18 10:30:00 SAP SOLUTIONS ARCHITECT, Stop date: 10/08/18 11:30:00 SAP SOLUTIONS ARCHITECT propofol 2019-0 No Route: IV, Mem oria (ANES) 10 10-08 Drug form: l mg 16:30: INJ, Start date: 10/08/18 10:30:00 SAP SOLUTIONS ARCHITECT, Stop date: 10/08/18 11:30:00 SAP SOLUTIONS ARCHITECT remifentani 2019-0 No Route: IV, Memoria l (ANES) 1 10-08 Drug form: l mg 16:30: INJ, date: 10/08/18 10:30:00 SAP SOLUTIONS ARCHITECT, Stop date: 10/08/18 11:30:00 SAP SOLUTIONS ARCHITECT Sodium 2019-0 No Route: IV, Memor ia Chloride 3-03 Drug form: l 0.9% IV 16:25: INJ, Start Herm ree (ANES) 00 date: mL + 10/08/18 vancomycin 10:25:00 (ANES) 1500 SAP SOLUTIONS ARCHITECT, Stop mg date: 10/08/18 11:25:00 SAP SOLUTIONS ARCHITECT Sodium 2019-0 No Route: IV, Memor ia Chloride 3-03 Drug form: l 0.9% IV 16:25: INJ, Start Herm ree (ANES) date: mL + 10/08/18 vancomycin 10:25:00 (ANES) 1500 SAP SOLUTIONS ARCHITECT, Stop mg date: 10/08/18 11:25:00 SAP SOLUTIONS ARCHITECT Isolyte S 2019-0 No Route: IV, Me moria PH 7.4 3-03 Total l (ANES) 1000 16:09: Volume: Her salas mL 00 1,000, Start date: 10/08/18 10:09:00 SAP SOLUTIONS ARCHITECT, Stop date: 10/08/18 11:09:00 SAP SOLUTIONS ARCHITECT Isolyte S 2019-0 No Route: IV, Me moria PH 7.4 3-03 Total l (ANES) 1000 16:09: Volume: Her salas mL 00 1,000, Start date: 10/08/18 10:09:00 SAP SOLUTIONS ARCHITECT, Stop date: 10/08/18 11:09:00 SAP SOLUTIONS ARCHITECT Saline 2018-0 No Notes: Memoria Flush 0.9% 10-08 (Same as: l 15:57: BD Maxwell 00 Posiflush) Albuterol 2018-0 No 3 ml, Memoria 0.833 MG/ML 10-08 Route: l / 15:57: NEB, Drug Maxwell Ipratropium 00 Form: [place] SOLN, 0.167 MG/ML Dosing Inhalant Weight Solution 95.455, kg, RQ4H, PRN Wheezing, Start date: 10/08/18 9:57:00 SAP SOLUTIONS ARCHITECT, Duration: 30 day, Stop date: 11/07/18 9:56:00 CDT Labetalol 2018-0 No 10 mg, 2 Edison anny 3-03 mL, Route: l 15:57: IVP, Drug Carlos 00 form: INJ, Q15Min, Dosing Weight 95.455, kg, PRN Hypertensi on, Start date: 10/08/18 9:57:00 SAP SOLUTIONS ARCHITECT, Duration: 30 day, Stop date: 11/07/18 10:56:00 CDT Hydralazine 0 No 20 mg, 1 Me moria 3-03 mL, Route: l 15:57: IVP, Drug form: INJ, Q4H, Dosing Weight 95.455, kg, PRN Hypertensi on, Start date: 10/08/18 9:57:00 [employer], Duration: 30 day, Stop date: 11/07/18 9:56:00 CDT Sodium 2019-0 No 1,000 mL, Memori a Chloride 10-08 Rate: 50 l 0.9% IV 15:57: ml/hr, Maxwell 1,000 mL 00 Infuse over: 20 hr, Route: IV, Dosing Weight 95.455 kg, Total Volume: 1,000, Start date: 10/08/18 9:57:00 [employer], Duration: 30 day, Stop date: 11/07/18 9:56:00 CDT, 2.16, m2 Levetiracet 2018-0 No Notes: Edison anny am -03 Same as l 15:57: Keppra Maxwell 00 Mix with 100 mL NS, LR or D5W MEDICATION WASTE Product Size: 500 mg Product Wasted: ___ mg Acetaminoph 2019-0 No 100.4 F, M emoria en 10-08 Start l 15:57: date: 10/08/18 9:57:00 [employer], Duration: 30 day, Stop date: 11/07/18 9:56:00 CDT Ondansetron 2018-0 No Notes: Memoria - MEDICATION l 15:57: WASTE Product Size: 4 mg Product Wasted: ___ mg Bisacodyl 2018-0 No 10 mg, 1 Edison anny -03 supp, l 15:57: Route: ND, Drug form: SUPP, Daily, Dosing Weight 95.455, kg, PRN Constipati on, Start date: 10/08/18 9:57:00 [employer], Duration: 30 day, Stop date: 11/07/18 9:56:00 CDT Saline 2018-0 No Notes: Memoria Flush 0.9% 10-08 (Same as: l 15:57: BD Posiflush) Albuterol 0 No 3 ml, Memoria 0.833 MG/ML 10-08 Route: l / 15:57: NEB, Drug Ipratropium Form: [place] SOLN, 0.167 MG/ML Dosing Inhalant Weight Solution 95.455, kg, RQ4H, PRN Wheezing, Start date: 10/08/18 9:57:00 [employer] SOLUTIONS ARCHITECT, Duration: 30 day, Stop date: 11/07/18 9:56:00 CDT Labetalol No 10 mg, 2 Edison anny 3-03 mL, Route: l 15:57: IVP, Drug form: INJ, Q15Min, Dosing Weight 95.455, kg, PRN Hypertensi on, Start date: 10/08/18 9:57:00 [employer] SOL[employer] ARCHITECT, Duration: 30 day, Stop date: 11/07/18 10:56:00 CDT Hydralazine 0 No 20 mg, 1 Me moria 3-03 mL, Route: l 15:57: IVP, Drug form: INJ, Q4H, Dosing Weight 95.455, kg, PRN Hypertensi on, Start date: 10/08/18 9:57:00 [employer] SOLUT[employer] ARCHITECT, Duration: 30 day, Stop date: 11/07/18 9:56:00 CDT Sodium 2019-0 No 1,000 mL, Memori a Chloride 10-08 Rate: 50 l 0.9% IV 15:57: ml/hr, Carlos 1,000 mL 00 Infuse over: 20 hr, Route: IV, Dosing Weight 95.455 kg, Total Volume: 1,000, Start date: 10/08/18 9:57:00 [employer] SOL[employer] ARCHITECT, Duration: 30 day, Stop date: 11/07/18 9:56:00 CDT, 2.16, m2 Levetiracet 2019-0 No Notes: Edison anny am 10-08 Same as l 15:57: Keppra Mix with 100 mL NS, LR or D5W MEDICATION WASTE Product Size: 500 mg Product Wasted: ___ mg Acetaminoph 2018-0 No 100.4 F, M emoria en 03 Start l 15:57: date: Carlos 10/08/18 9:57:00 [employer] SOL[employer] ARCHITECT, Duration: 30 day, Stop date: 11/07/18 9:56:00 CDT Ondansetron 2018-0 No Notes: Memoria - MEDICATION l 15:57: WASTE Product Size: 4 mg Product Wasted: ___ mg Bisacodyl 2019-0 No 10 mg, 1 Edison anny - supp, l 15:57: Route: ND, Drug form: SUPP, Daily, Dosing Weight 95.455, kg, PRN Constipati on, Start date: 10/08/18 9:57:00 [employer] ARCHITECT, Duration: 30 day, Stop date: 11/07/18 9:56:00 CDT Zofran 2018-0 No 4 mg, Memoria 3- Route: l 15:09: IVP, Drug form: INJ, ONCE, Dosing Weight 95.455, kg, Priority: STAT, Start date: 10/08/18 9:09:00 [employer] SOL[employer] ARCHITECT, Stop date: 10/08/18 9:09:00 [employer] SOL[employer] ARCHITECT Morphine 2018-0 No 4 mg, Memoria 3- Route: l 15:09: IVP, ONCE, Maxwell 00 Dosing Weight 95.455, kg, Priority: STAT, Start date: 10/08/18 9:09:00 [employer] SOL[employer] ARCHITECT, Stop date: 10/08/18 9:09:00 [employer] ARCHITECT Sodium 2019-0 No 1,000 mL, Memori a Chloride 3-03 Infuse l 0.9% 15:09: Over: 1 Maxwell (Bolus) IV 00 hr, Route: IV, ONCE, Priority: STAT, Dosing Weight 95.455 kg, Start date: 10/08/18 9:09:00 [employer] SOL[employer] ARCHITECT, Stop date: 10/08/18 9:09:00 [employer] SOL[employer] ARCHITECT Zofran 2019-0 No 4 mg, Memoria 3- Route: l 15:09: IVP, Drug form: INJ, ONCE, Dosing Weight 95.455, kg, Priority: STAT, Start date: 10/08/18 9:09:00 [employer] SOL[employer] ARCHITECT, Stop date: 10/08/18 9:09:00 [employer] SOL[employer] ARCHITECT Morphine 2019-0 No 4 mg, Memoria 3- Route: l 15:09: IVP, ONCE, Dosing Weight 95.455, kg, Priority: STAT, Start date: 10/08/18 9:09:00 [employer] SOL[employer] ARCHITECT, Stop date: 10/08/18 9:09:00 [employer] SOL[employer] ARCHITECT Sodium 2019-0 No 1,000 mL, Memori a Chloride 3-03 Infuse l 0.9% 15:09: Over: 1 Carlos (Bolus) IV 00 hr, Route: IV, ONCE, Priority: STAT, Dosing Weight 95.455 kg, Start date: 10/08/18 9:09:00 [employer] SOL[employer] ARCHITECT, Stop date: 10/08/18 9:09:00 [employer] SOL[employer] ARCHITECT Sulfamethox Sulfamethox Yes Parminder not [facility] [...] Name Observation Time Observation Value Comments Source Body height 2021-07-20 15:18:00 172.7 cm [facility] Body weight 2021-07-20 15:18:00 95.573 kg [facility] BMI 2021-07-20 15:18:00 32.04 kg/m2 [facility] Heart Rate 2018-10-11 17:26:00 [facility] Temperature Oral (F) 2018-10-11 17:26:00 97.9 F [facility] Respitory Rate 2018-10-11 17:26:00 Mem[facility] al [facility] Systolic (mm Hg) 2018-10-11 17:26:00 Edison rial [facility] Diastolic (mm Hg) 2018-10-11 17:26:00 Mem orial [facility] Systolic (mm Hg) 2018-10-11 13:44:00 Edison rial Carlos Diastolic (mm Hg) 2018-10-11 13:44:00 Mem orial [facility] Respitory Rate 2018-10-11 13:44:00 [facility] Heart Rate 2018-10-11 13:44:00 [facility] Temperature Oral (F) 2018-10-11 13:44:00 99.1 F [facility] Temperature Oral (F) 2018-10-11 10:47:00 97.9 F [facility] Heart Rate 2018-10-11 10:47:00 [facility] Respitory Rate 2018-10-11 10:47:00 [facility] Systolic (mm Hg) 2018-10-11 10:47:00 Edison rial [facility] Diastolic (mm Hg) 2018-10-11 10:47:00 Mem orial [facility] Weight 2018-10-08 21:12:00 [facility] Weight 2018-10-08 14:38:00 [facility] Height 2018-10-08 14:38:00 172.72 cm [facility] BMI Calculated 2018-10-08 14:38:00 [facility] Procedures This patient has no known procedures. Encounters Start End Encounter Admission Attending Care Care Encounter Source Date/Time Date/Time Type Type Clinicians Facility Department ID 2018-10-08 Inpatient E [facility] [id number] [facility] 09:57:00 2021-07-24 2021-07-24 Outpatient R KEREN [facility] [id number] [facility] 10:30:00 10:30:00 KELBY contreras [facility] 2021-07-20 2021-07-20 Office Urodynamics, Clc Bls Urogyn [facility] [id number] [facility] 09:04:35 10:09:39 Visit Felisa Champion [facility] [id number] 10 ity of CLEAR [id number] Allia kayode TORRES [phone] [address] OFFICE BUILDING 2021-07-01 2021-07-01 ambulatory [facility] [id number] [facility] 2021-06-30 2021-06-30 ambulatory [facility] [id number] [facility] 2021-05-05 2021-05-05 Outpatient [facility] [id number] [facility] 2021-02-23 2021-02-23 Outpatient [facility] [id number] [facility] 2021-02-23 2021-02-23 Outpatient [facility] [id number] [facility] 2021-01-26 2021-01-26 Outpatient [facility] [id number] [facility] 2021-01-23 2021-01-23 Office Jaycee [facility] [id number] 08:50:29 10:03:02 Visit Felisa [facility] [id number] Clear [id number] Torres [phone] [place] [address] Office Building 2021-01-23 2021-01-23 Orders Doctor THACKER [id number] 00:00:00 00:00:00 Only Unassigned, NIKO [id number] [facility] [id number] 2021-01-15 2021-01-15 Outpatient [facility] [id number] [facility] 2021-01-06 2021-01-06 Outpatient [facility] [id number] [facility] 2020-11-25 2020-11-25 Outpatient [facility] [id number] [facility] 2020-09-11 2020-09-11 Outpatient [facility] [id number] [facility] 2020-09-11 2020-09-11 Outpatient [facility] [id number] [facility] 2020-08-14 2020-08-14 Outpatient [facility] [id number] [facility] 2020-07-16 2020-07-16 Outpatient [facility] [id number] [facility] 2020-03-26 2020-03-26 [facility] [id number] 15:00:00 15:00:00 t [place] [email or web address] s - [facility] l Medicine Outpati ent Clinics 2020-03-24 2020-03-24 [facility] [id number] 08:34:00 08:34:00 t [place] [email or web address] [facility] - [facility] l Medicine Outpati ent Clinics 2020-03-18 2020-03-18 [facility] [id number] [address] 16:45:00 16:45:00 t [place] [facility] l Medicine Outpati ent Clinics 2020-03-18 2020-03-18 [facility] [id number] 15:30:00 15:30:[address] [facility] Medicine Outpati ent Clinics 2020-03-05 2020-03-05 [facility] [id number] 10:30:00 10:30:[address] [facility] Medicine Outpati ent Clinics 2019-04-04 2019-04-06 Phone nullFlavo MNA [id number] [facility] 17:21:53 04:59:59 Message r Neurosurger 05 l [facility] 2018-12-21 2018-12-23 Phone nullFlavo MNA [id number] [facility] 15:05:32 04:59:59 Message r Neurosurger 04 l y [facility] 2018-12-08 2018-12-10 Phone nullFlavo MNA [id number] [facility] 18:27:20 04:59:59 Message r Neurosurger 03 l y [facility] 2018-12-07 2018-12-08 Outpatient nullFlavo MNA [id number] [facility] 16:15:00 04:59:59 r Neurosurger 01 l y [facility] 2018-12-07 2018-12-08 Outpt Diag nullFlavo [facility] [id number] Memoria 15:09:00 04:59:00 Services r Outpatient 01 l Imaging [facility] 2018-10-31 2018-11-02 Phone nullFlavo MNA [id number] [facility] 17:52:00 04:59:59 Message r Neurosurger 02 l y [facility] 2018-10-27 2018-10-29 Phone nullFlavo MNA [id number] [facility] 14:49:00 04:59:59 Message r Neurosurger 01 l y [facility] 2018-10-26 2018-10-27 Outpatient nullFlavo MNA [id number] [facility] 17:15:00 04:59:59 r Neurosurger 00 l y [facility] 2018-10-24 2018-10-25 Outpt Diag nullFlavo [facility] [id number] Memoria 13:26:00 04:59:00 Services r Outpatient 00 l Imaging [facility] 2018-10-17 2018-10-19 Phone nullFlavo MNA [id number] [facility] 15:08:00 04:59:59 Message r Neurosurger 00 l y [facility] 2018-10-08 2018-10-11 Inpatient nullFlavo [facility] [id number] Mem[facility] 14:37:00 21:18:00 [facility] Results Test Description Test Time Test Comments [...] code = MCH) 29.6 pg 27.0-31.0 [facility] MfvchglDXTECFXWQQ8671-54-12 06:11:0038.3[facility]ann[facility]OLOGY 2018-10-11 06:11:004.30[facility] PsefpbdNLHSESSDYQ7990-30-12 06:11:0089.1[facility] LgjcrbzMCPSZTYATZ4580-98-82 06:11:0012.7[facility] RjpcsytIVOZAJBPVN5077-81-13 06:11:002.9[facility] VhlssnyQBHGYHJVRN6000-20-08 06:11:0028.7[facility] LSTAFXMVXA2193-21-50 06:11:009.5[facility] RcnbsmbGQQJZGDIUL6318-24-71 06:11:00 58.7[facility] KixltyfVPECHZXTIV2496-80-33 06:11:002.6[facility]annHEMATOLOGY 2018-10-11 06:11:000.3[facility] HtgqrypTYTXMVZNKY9220-59-19 06:11:000.2[facility] BrevvpuBHOLZPQSER5292-19-70 06:11:005.3[facility] SqadltsVNAAEPXTMV4393-30-57 06:11:000.9[facility] EdbcuomMGFOXQFOUX4888-06-93 06:11:005.3[facility] ZQGUKBHQCX6426-41-53 06:11:000.9[facility] HermannCHEM EYFEB7194-98-24 06:11:0073 [facility]annCHEM VAPBU0718-61-86 06:11:0074[facility] HermannCHEM PANEL 2018-10-11 06:11:000.93[facility] HermannCHEM QHTBA9184-41-44 06:11:80674Qxqoolft HermannCHEM JSWZQ3893-65-58 06:11:0018[facility] HermannCHEM GISXY9012-19-96 06:11:008.9[facility]annCHEM NCTPT4731-64-20 06:11:003.9[facility]annCHEM QTOTF0665-28-14 06:11:72408Hnphvpoc HermannCHEM BIRTU6797-85-87 06:11:0026 [facility]annCHEM KAOOT9577-35-01 06:11:0011.9[facility]annHEMATOLOGY 2018-10-11 06:11:009.0[facility] LenyuldKYXDAWJQLQ0900-99-80 06:11:75947Lvfntmoa UajjtqpZHSMYHYXWC8583-66-36 06:11:008.7[facility] VxbntatLIZPNYHHSM3429-78-53 06:11:0013.6[facility] DyqxryqTQEVAJQRCN7104-66-82 06:11:0033.2[facility] IMBXKUWBDN1683-68-04 06:11:00 Test Item Value Reference Range Interpretation Comments MCH (test code = MCH) 29.6 pg 27.0-31.0 [facility] WhxyybrWDLJYKGLZW8298-14-89 06:11:0038.3[facility]annHEMATOLOGY 2018-10-11 06:11:004.30[facility] PkfwifhUILPFOULDR6750-10-46 06:11:0089.1[facility] HtqunxlWPCSCWFCLZ3844-95-78 06:11:0012.7[facility] WozeqehFFVSUNQFMM4487-32-94 06:11:002.9[facility] CddiafoISEOEUZXXU8808-01-28 06:11:0028.7[facility] PGCFJAZFWD7686-82-72 06:11:009.5[facility] YnwdptoHYRVKLRMXB4609-99-75 06:11:00 58.7[facility] JniosqvYEORJDGRYT0732-71-79 06:11:002.6[facility]annHEMATOLOGY 2018-10-11 06:11:000.3[facility] JlvtqlaTVHPXUZRXA9878-79-46 06:11:000.2[facility] HermannCHEM CKNSZ4565-95-70 06:24:002.0[facility] HermannCHEM BMKZJ9115-55-63 06:24:0068[facility] HermannCHEM VAEWF5018-52-98 06:24:003.9[facility] HermannCHEM VJFGQ6497-95-71 06:24:11191Hmsiorts HermannCHEM KQLHE9464-29-96 06:24:40043 [facility]annCHEM WVSKK7455-11-43 06:24:001.00[facility] HermannCHEM PANEL 2018-10-10 06:24:0090[facility] HermannCHEM HQQHA4444-40-69 06:24:0021[facility] HermannCHEM WJVYQ7434-28-43 06:24:0028[facility] HermannCHEM ONZCR3282-03-52 06:24:008.6[facility] HermannCHEM BACCQ5124-82-67 06:24:007.9[facility] HermannCHEM AFSLM7577-05-39 06:24:003.9[facility] QmceciiPQUMRVFTYA5774-79-06 06:24:000.1 [facility] EidkanqMHCGANNUVJ6259-99-93 06:24:000.2[facility] HermannHEMATOLOGY 2018-10-10 06:24:002.0[facility] BasyxrcDXMYGRKBNI3880-63-93 06:24:002.1[facility] RgdqbtyBFUIHTCVAY1207-41-41 06:24:000.8[facility] IcgqezjIJIUABUNKU5537-07-51 06:24:000.8[facility] ByexyavAXENWROJSX2652-10-36 06:24:005.4[facility] YPGLMWMXRH0087-72-78 06:24:0024.5[facility] CfaucagKSWDPEOAUQ6628-45-84 06:24:00 63.8[facility] DcatfzzQQLGTFNONB3973-27-10 06:24:008.9[facility] HermannHEMATOLOGY 2018-10-10 06:24:84108Wwyufvwd XgrtoraMUXVREMAWO4435-57-77 06:24:008.2[facility] XuutojiEJMACFMJEG8371-02-97 06:24:0012.3[facility] EaogfywJMRKMYBQTW7189-12-22 06:24:004.13[facility] OhmvgdwCFVCKOXKCX5375-99-92 06:24:008.4[facility] WDFORNKIVJ0144-93-09 06:24:0088.9[facility] NmkyupeXGBXHGUHNQ0165-02-06 06:24:00 Test Item Value Reference Range Interpretation Comments MCH (test code = MCH) 29.9 pg 27.0-31.0 [facility] DvrhreiCPUELVMDUO2930-38-14 06:24:0036.7[facility] HermannHEMATOLOGY 2018-10-10 06:24:0013.6[facility] HsvcdyxUQBUAGYCKQ1753-63-24 06:24:0033.6[facility] HermannPARATHYROID IYDOMSP2726-08-40 06:24:001.14[facility] HermannPARATHYROID EZGTRDY2103-03-21 06:24:001.15[facility] HermannCHEM PWVQL3375-97-19 06:24:002.0 [facility] HermannCHEM YFWLW5788-37-84 06:24:0068[facility] HermannCHEM PANEL 2018-10-10 06:24:003.9[facility] HermannCHEM ZFJEP7207-01-44 06:24:56706Vqdxgutf HermannCHEM ILIUF7919-94-89 06:24:25514Oqiuahfd HermannCHEM GXULX5308-74-28 06:24:001.00[facility] HermannCHEM LBMFO7360-04-60 06:24:0090[facility] HermannCHEM MNRKB6859-50-07 06:24:0021[facility] HermannCHEM LSXRB5791-72-62 06:24:0028 [facility] HermannCHEM HHJYT7317-06-83 06:24:008.6[facility] HermannCHEM PANEL 2018-10-10 06:24:007.9[facility] HermannCHEM WKTGC7306-46-32 06:24:003.9[facility] IhehhpkUTLVOMZBHD2990-71-14 06:24:000.1[facility] AgdylmiFIPXICXHYK7134-53-06 06:24:000.2[facility] QkqukfyYXWPZPYBWW8317-96-71 06:24:002.0[facility] YMMEEVVUKI3999-86-14 06:24:002.1[facility] QeetzjuYAADBEHSKG5228-95-60 06:24:000.8 [facility] QbwzmzmATWBBFBIPJ8995-37-24 06:24:000.8[facility] HermannHEMATOLOGY 2018-10-10 06:24:005.4[facility] RkpzxoyBMYBJAVRDI3365-40-03 06:24:0024.5[facility] IpxajduPKFQDGHZKO8359-42-48 06:24:0063.8[facility] PxiebosNEGVJRDSTV6604-95-32 06:24:008.9[facility] HfkernyDVJVOMBEIP5821-68-62 06:24:26425Vailnqxh Carlos OOXQTGRJKT2837-50-29 06:24:008.2[facility] JnmdfsuHIIHTZISEH7027-85-23 06:24:00 12.3[facility] GkicyxlJILDCPGDZK0892-33-94 06:24:004.13[facility] HermannHEMATOLOGY 2018-10-10 06:24:008.4[facility] XocfjaiQMVBUBJIRT4266-76-07 06:24:0088.9[facility] KzjhqyqWWOOGGCGKZ6371-10-80 06:24:00 Test Item Value Reference Range Interpretation Comments MCH (test code = MCH) 29.9 pg 27.0-31.0 [facility] DntxcnfTECCJGETLF7826-06-38 06:24:0036.7[facility] HermannHEMATOLOGY 2018-10-10 06:24:0013.6[facility] IttwuaoPBUFFYKXLT3950-80-06 06:24:0033.6[facility] HermannPARATHYROID DZQBASH2532-89-65 06:24:001.14[facility] HermannPARATHYROID PNPNYEV6050-78-04 06:24:001.15[facility] HermannCHEM CVREJ4904-98-89 07:49:003.2 [facility] HermannCHEM EOYFN6821-49-97 07:49:001.9[facility] HermannCHEM PANEL 2018-10-09 07:49:0081[facility] HermannCHEM GTYXH2520-46-21 07:49:0010.9[facility] HermannCHEM SPJPS6631-34-26 07:49:008.5[facility] HermannCHEM OCKZY7527-45-96 07:49:003.9[facility] HermannCHEM XYOHB8076-28-81 07:49:92206Gadutfgu HermannCHEM QBVCX3884-13-57 07:49:45889Xzlfecfc HermannCHEM UYOWP1657-58-06 07:49:000.96 [facility]annCHEM HOJKQ5269-66-42 07:49:0017[facility] HermannCHEM PANEL 2018-10-09 07:49:14774Kgqwbbok HermannCHEM NGPBC6043-47-71 07:49:0024[facility] MezgrgcQIOXXDWNFP4562-38-55 07:49:0086.1[facility] LtbiwphNNKAYGNOWO0422-89-29 07:49:000.4[facility] OgdinghYGEGMCNEZM9486-48-68 07:49:0012.7[facility] VKDAUGUBNG0861-81-60 07:49:006.3[facility] WiivjvvMJANHIQZDC4517-09-33 07:49:007.2 [facility] JofkaclWSTHJRSIQS3802-21-66 07:49:000.9[facility] HermannHEMATOLOGY 2018-10-09 07:49:000.1[facility] PhyuaoqAWSICCZYMJ5849-17-25 07:49:001.1[facility] PrxjkxyDSFLFKBTRC6869-85-68 07:49:008.3[facility] YmowvpqQNAXQJXGQX4087-25-13 07:49:0033.3[facility] DnqvzrhJDZXSWPBNZ0828-80-22 07:49:0013.5[facility] TZVTUYARMS9060-70-15 07:49:66758Owjvbala VarvmziFKOQAPLSMC2046-32-58 07:49:00 12.8[facility] IxicxmpUFCMEUPRKG0771-37-83 07:49:0038.4[facility] HermannHEMATOLOGY 2018-10-09 07:49:0088.1[facility] BpwzwgbKCZKFDLEIW3567-07-38 07:49:00 Test Item Value Reference Range Interpretation Comments MCH (test code = MCH) 29.4 pg 27.0-31.0 [facility] IdcxzzuNUBENYIXLD4194-46-78 07:49:0014.7[facility] HermannHEMATOLOGY 2018-10-09 07:49:004.36[facility] HermannPARATHYROID IFSMLJU4148-08-68 07:49:00 1.15[facility] HermannPARATHYROID HZMMZEZ4867-90-97 07:49:001.16[facility] CHEM PZVHN6290-67-88 07:49:003.2[facility] HermannCHEM RWQQR7297-56-86 07:49:001.9 [facility]annCHEM UMDGS4394-39-40 07:49:0081[facility] HermannCHEM PANEL 2018-10-09 07:49:0010.9[facility] HermannCHEM EHSUE3581-49-59 07:49:008.5[facility] HermannCHEM MHVFN8308-42-91 07:49:003.9[facility] HermannCHEM FZOMF4613-16-49 07:49:79521Qarlrfte HermannCHEM DDNSQ1396-49-17 07:49:98858Vwusszly HermannCHEM NVHDX4969-99-13 07:49:000.96[facility] HermannCHEM RJLVX6693-40-39 07:49:0017 [facility]annCHEM WWOBF5971-40-55 07:49:64287Xibyofnd HermannCHEM PANEL 2018-10-09 07:49:0024[facility] MmfhflzLPXOINGZRV5556-91-09 07:49:0086.1[facility] YkehazxLYRLZHGLHX6566-42-01 07:49:000.4[facility] DudjrfxBHVBZKWXRX4014-72-11 07:49:0012.7[facility] QzkxdmjONNZAEMFPY2571-85-44 07:49:006.3[facility] QUZAGFTATS0128-85-10 07:49:007.2[facility] TibjyfsJWKVQYPSHH4320-99-67 07:49:000.9 [facility] BgmtesmUGOYKRORSV4381-94-18 07:49:000.1[facility]annHEMATOLOGY 2018-10-09 07:49:001.1[facility] NgjewryLYTTTPWJKA7668-80-18 07:49:008.3[facility] SrzvknzFKQQQBDDLJ5372-88-70 07:49:0033.3[facility] NdsxemzCROQUTZMKF5272-40-64 07:49:0013.5[facility] ZeauqxhXJXVLZROLT4920-50-66 07:49:50711Kdvdrwqh [facility] ISOFFQGLYM5736-59-05 07:49:0012.8[facility] SwqyobtSJRTYMIGCP6508-74-89 07:49:00 38.4[facility] FsptdipEEVSPRYTFX8456-16-36 07:49:0088.1[facility]annHEMATOLOGY 2018-10-09 07:49:00 Test Item Value Reference Range Interpretation Comments MCH (test code = MCH) 29.4 pg 27.0-31.0 [facility] UirorvaHZFFJCMULQ2736-10-62 07:49:0014.7[facility] HermannHEMATOLOGY 2018-10-09 07:49:004.36[facility] HermannPARATHYROID OPJTHKI6473-01-90 07:49:00 1.15[facility] HermannPARATHYROID RHCWLZJ5289-51-06 07:49:001.16[facility] CARDIAC OLYDAKJ0009-17-92 18:27:00<0.02[facility] HermannCARDIAC ENZYMES 2018-10-08 18:27:00<0.02[facility]annURINE AND UFPEC6988-64-76 15:59:00 Negative *NA*(10/08/18 9:59 AM)[facility] OKSOU6334-47-75 15:59:00 Negative (10/08/18 9:59 AM)[facility] UZCMH1518-41-96 15:59:00 Negative *NA*(10/08/18 9:59 AM)[facility] LPVHM2450-21-99 15:59:00 Test Item Value Reference Range Interpretation Comments UA Spec Grav (test code = UA Spec 1.010 1 Grav) [facility] RXDNL2859-10-09 15:59:00 Test Item Value Reference Range Interpretation Comments UA pH (test code = UA pH) 6.0 1 5.0-8.0 [facility] VWITB1405-80-57 15:59:00Yellow *NA*(10/08/18 9:59 AM) [facility] EGAEM0724-10-31 15:59:00Clear (10/08/18 9:59 AM)[facility] ATOXJ9004-86-53 15:59:00Negative (10/08/18 9:59 AM)[facility] [id number] 15:59:00Negative (10/08/18 9:59 AM)[facility] [id number] 15:59:00Small *ABN*(10/08/18 9:59 AM)[facility] [id number] 15:59:00Negative (10/08/18 9:59 AM)[facility] [id number] 15:59:000.2[facility] STOOL 2018-10-08 15:59:00Negative *NA*(10/08/18 9:59 AM)[facility] 2018-10-08 15:59:00Negative (10/08/18 9:59 AM)[facility] 2018-10-08 15:59:00Negative *NA*(10/08/18 9:59 AM)[facility] 2018-10-08 15:59:00 Test Item Value Reference Range Interpretation Comments UA Spec Grav (test code = UA Spec 1.010 1 Grav) [facility] [id number] 15:59:00 Test Item Value Reference Range Interpretation Comments UA pH (test code = UA pH) 6.0 1 5.0-8.0 [facility] [id number] 15:59:00Yellow *NA*(10/08/18 9:59 AM) [facility] [id number] 15:59:00Clear (10/08/18 9:59 AM)[facility] [id number] 15:59:00Negative (10/08/18 9:59 AM)[facility] [id number] 15:59:00Negative (10/08/18 9:59 AM)[facility] [id number] 15:59:00Small *ABN*(10/08/18 9:59 AM)[facility] [id number] 15:59:00Negative (10/08/18 9:59 AM)[facility] [id number] 15:59:000.2[facility] LaiodorTQHQUFRJBS0597-40-10 15:21:00 Test Item Value Reference Range Interpretation Comments PTT (test code = PTT) 36.5 s 22.9-35.8 [facility] SngtikfTNUAFMRHFV5450-31-41 15:21:00 Test Item Value Reference Range Interpretation Comments PT (test code = PT) 13.3 s 12.0-14.7 [facility] KacqamlRTTJBDDIPJ5136-16-82 15:21:00 Test Item Value Reference Range Interpretation Comments INR (test code = INR) 1.03 1 0.85-1.17 [facility] VxpiumuVOZTRFTYAB8219-46-23 15:21:00 Test Item Value Reference Range Interpretation Comments Split Point Rapid (test code = Split 0.6 min Point Rapid) [facility] AgirfsuJXJCJXJDQD7080-66-96 15:21:00 Test Item Value Reference Range Interpretation Comments R-time Rapid (test code = R-time 0.7 min 0.4-0.7 Rapid) [facility]UVZVXRIX1339-42-64 15:21:00 Test Item Value Reference Range Interpretation Comments ACT (TEG) Rapid (test code = ACT (TEG) 113 s 86-118 Rapid) [facility] CenterKsksqnhLOHGLIPPAX3260-88-27 15:[facility] 15:21:00 Test Item Value Reference Range Interpretation Comments K-time Rapid (test code = K-time 0.8 min 0.6-2.3 Rapid) [facility] CenterQdbsgsqFSFORHHDPG1294-12-19 15:21:000.3[facility] 2018-10-08 15:21:00 Test Item Value Reference Range Interpretation Comments Angle Rapid (test code = Angle 79 degrees 64-80 Rapid) [facility] CenterLfxgkuhWWNPFPXHMA5180-06-57 15:21:00 Test Item Value Reference Range Interpretation Comments Max Amplitude Rapid (test code = Max 75 mm 52-71 Amplitude Rapid) [facility] CenterPxwtwxvLEUIODBNYJ7572-15-34 15:21:00 Test Item Value Reference Range Interpretation Comments PTT (test code = PTT) 36.5 s 22.9-35.8 [facility] CenterRskfpmuGEPDKFZGNJ3657-11-09 15:21:00 Test Item Value Reference Range Interpretation Comments PT (test code = PT) 13.3 s 12.0-14.7 [facility] CenterQnizmnpRTJUOFJQVF0841-19-76 15:21:00 Test Item Value Reference Range Interpretation Comments INR (test code = INR) 1.03 1 0.85-1.17 [facility] CenterGvevdzmHGAJPMOCHE7194-70-96 15:21:00 Test Item Value Reference Range Interpretation Comments Split Point Rapid (test code = Split 0.6 min Point Rapid) [facility] CenterMhqpmgtJKBSFXWWIO2789-25-87 15:21:00 Test Item Value Reference Range Interpretation Comments R-time Rapid (test code = R-time 0.7 min 0.4-0.7 Rapid) [facility] CenterIfonvvePHGJPYVSTT4787-02-59 15:21:00 Test Item Value Reference Range Interpretation Comments ACT (TEG) Rapid (test code = ACT (TEG) 113 s 86-118 Rapid) [facility] CenterRzoljwnOINHNMPBDN9972-39-56 15:21:0015.0[facility] 2018-10-08 15:21:00 Test Item Value Reference Range Interpretation Comments K-time Rapid (test code = K-time 0.8 min 0.6-2.3 Rapid) [facility] EkggicmNRJMVCCYWD0633-34-36 15:21:[facility].3[facility] 2018-[facility]-08 15:21:00 Test Item Value Reference Range Interpretation Comments Angle Rapid (test code = Angle 79 degrees 64-80 Rapid) [facility] [id number] 15:21:00 Test Item Value Reference Range Interpretation Comments Max Amplitude Rapid (test code = Max 75 mm 52-71 Amplitude Rapid) [facility] [id number] 15:20:00Negative (10/08/18 9:20 AM) [facility] B[facility] [id number] 15:20:00Negative (10/08/18 9:20 AM) [facility]ARD[facility] [id number] 15:18:00<0.02[facility]annCHEM [id number] 15:18:003.9[facility]annCHEM [id number] 15:18:001.9 [facility]annCHEM [id number] 15:18:000.8[facility]annHEMATOLOGY 2018-10-08 15:18:000.1[facility] [id number] 15:18:000.1[facility] [id number] 15:18:001.8[facility]annCARDIAC [id number] 15:18:00<0.02[facility]annCHEM [id number] 15:18:003.9[facility] CHEM [id number] 15:18:001.9[facility] HermannCHEM [id number] 15:18:000.8 [facility] [id number] 15:18:000.1[facility]annHEMATOLOGY 2018-10-08 15:18:000.1[facility] [id number] 15:18:001.8[facility]
[2021-07-21] MEDS ORDERED: IBUPROFEN 400 MG TAB ONE (07:54)
[2021-07-21 08:52] LABS: Urine Blood 1+ (Negative); Urine Glucose Negative (Negative); Urine Protein Negative (Negative); Urine Specific Gravity 1.015 (1.005-1.030)
[2021-07-21 08:58] LABS: SARS-COV-2 RT PCR POSITIVE (NEGATIVE)
--- NOTE | 2021-07-21 09:09 | EDPHYS ---
Physician Documentation [facility] Name: Joanna Lim Age: 51 yrs Sex: Female : 1970 Arrival Date: 07/21/2021 Time: 07:28 Bed 16 Private MD: Parminder Velez ED Physician Sarkis Munoz HPI: 07/21 07:45 This 51 yrs old Black Female presents to ER via Ambulatory with complaints of Fever. rn 07:45 The patient reports fever, not measured (subjective). Onset: The symptoms/episode rn began/occurred last night. Modifying factors: The patient has had contact with sick daughter. Associated signs and symptoms: Pertinent positives: cough, runny nose, sore throat, Pertinent negatives: abdominal pain, altered mental status, chest pain, headache, hemoptysis, skin rash, shortness of breath, vomiting. Severity of symptoms: At their worst the symptoms were mild in the emergency department the symptoms are unchanged. The patient has experienced similar episodes in the past. The patient has not recently seen a physician. Pt reports subjective fever, cough, runny nose, sore throat, raspy voice since yesterday at 8 pm. Reports daughter with similar symptoms. Non-smoker. No sob . No abd pain/vomiting/diarrhea. . 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 - Social history:: Smoking status: Patient denies any tobacco usage or history of. - Family history:: not pertinent. - Hospitalizations: : No recent hospitalization is reported. ROS: 07:45 Constitutional: + fever Eyes: Negative for injury, pain, redness, and discharge, ENT: + rn nasal congestion and sore throat Cardiovascular: Negative for chest pain, palpitations, and edema, Respiratory: + cough Abdomen/GI: Negative for abdominal pain, nausea, vomiting, diarrhea, and constipation, Back: Negative for injury and pain, : Negative for injury, bleeding, discharge, and swelling, MS/Extremity: Negative for injury and deformity, Skin: Negative for injury, rash, and discoloration, Neuro: Negative for headache, weakness, numbness, tingling, and seizure. Exam: 07:54 Constitutional: This is a well developed, well nourished patient who is awake, alert, rn and in no acute distress. Ambulatory to room without difficulty or assistance. Head/Face: Normocephalic, atraumatic. Eyes: Periorbital areas with no swelling, redness, or edema. Cardiovascular: Tachycardic, regular. No pulse deficits. Respiratory: No increased work of breathing, no retractions or nasal flaring. Abdomen/GI: Soft, non-tender Skin: Warm, dry MS/ Extremity: Pulses equal, no cyanosis. Neuro: Awake and alert, GCS 15 Vital Signs: 07:32 BP 132 / 89; Pulse 107; Resp 17; Temp 99.3; Pulse Ox 98% ; Weight 97.52 kg; Height 5 jh6 ft. 8 in. (172.72 cm); Pain 8/10; 07:46 BP 127 / 79; Pulse 103; Resp 18; Pulse Ox 99% on R/A; ap3 07:32 Body Mass Index 32.69 (97.52 kg, 172.72 cm) 6 MDM: 07:38 Patient medically screened. rn 09:06 Differential diagnosis: viral Infection, bacterial infection, URI, pneumonia COVID. rn Data reviewed: vital signs, nurses notes, lab test result(s), radiologic studies, plain films, and as a result, I will discharge patient. Test interpretation: by ED physician or midlevel provider: plain radiologic studies, CXR negative for pneumonia/pneumothorax. Counseling: I had a detailed discussion with the patient and/or guardian regarding: the historical points, exam findings, and any diagnostic results supporting the discharge/admit diagnosis, lab results, radiology results, the need for outpatient follow up, to return to the emergency department if symptoms worsen or persist or if there are any questions or concerns that arise at home. Special discussion: I discussed with the patient/guardian in detail that at this point there is no indication for admission to the hospital. It is understood, however, that if the symptoms persist or worsen the patient needs to return immediately for re-evaluation. 09:06 ED course: CXR neg for pneumonia, COVID +, no oxygen requirement, will dc home with rn instructions to quarantine.. 07/21 07:45 Order name: Strep; Complete Time: 08:53 rn 07/21 08:15 Order name: COVID-19/FLU A+B; Complete Time: 08:59 EDMS 07/21 08:30 Order name: Throat Culture EDRI 07/21 08:52 Order name: Urine Dipstick-Ancillary EDRI 07/21 07:45 Order name: XRAY Chest (1 view); Complete Time: 09:30 rn 07/21 07:54 Order name: Urine Dipstick-Ancillary (obtain specimen); Complete Time: 09:11 rn Administered Medications: 07:55 Drug: Motrin (ibuprofen) 800 mg Route: PO; ap3 09:22 Follow up: Response: No adverse reaction; Pain is decreased ap3 Disposition Summary: 07/21/21 09:08 Discharge Ordered Location: Home rn Problem: new rn Symptoms: have improved rn Condition: Stable rn Diagnosis - Acute upper respiratory infection, unspecified rn - Fever, unspecified rn Followup: rn - With: Private Physician - When: As needed - Reason: Recheck today's complaints, Re-evaluation by your physician Discharge Instructions: - Discharge Summary Sheet rn - Fever, Adult rn - Upper Respiratory Infection, Adult rn - Viral Respiratory Infection rn Forms: - Medication Reconciliation Form rn - Thank You Letter 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 rn - Work release form ap3 Signatures: Dispatcher [employer] EDMS Sarkis Munoz MD MD rn Prokisch, Amanda, RN RN 3 Michelle Rios RN RN 6 Corrections: (The following items were deleted from the chart) 07:36 07:35 PMHx: "Thyroid Problem"; [place] [id number] 07:36 07:35 PMHx: Chronic pain; [place] [address] 07:54 07:45 Constitutional: + fever Eyes: Negative for injury, pain, redness, and discharge, 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 EDRI EDMS 08:16 07:45 Influenza Screen (A \\T\\ B)+BA.LAB.BRZ ordered. EDRI EDMS
--- NOTE | 2021-07-21 09:09 | ER ---
Nurse's Notes [facility] Name: Joanna Lim Age: 51 yrs Sex: Female : 1970 Arrival Date: 07/21/2021 Time: 07:28 Bed 16 Private MD: Parminder Velez Diagnosis: Acute upper respiratory infection, unspecified;Fever, unspecified Presentation: 07/21 07:32 Chief complaint: Patient states: fever body aches started last night. 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 [facility] Coronavirus screen: At this time, unable to obtain information related to travel outside the [place] At this time, the client does not indicate any symptoms associated with coronavirus-19. Ebola Screen: Patient denies travel to an Ebola-affected area in the 21 days before illness onset. Initial Sepsis Screen: Does the patient meet any 2 criteria? No. Patient's initial sepsis screen is negative. Does the patient have a suspected source of infection? No. Patient's initial sepsis screen is negative. Risk Assessment: Do you want to hurt yourself or someone else? Patient reports no desire to harm self or others. Onset of symptoms was July 20, 2021. Care prior to arrival: None. 07:32 Method Of Arrival: Ambulatory [facility] 07:32 Method Of Arrival: Ambulatory [facility] 07:32 Acuity: JAYSHREE 4 6 Triage Assessment: 07:36 General: Appears in no apparent distress. uncomfortable, Behavior is calm, cooperative. 6 Pain: Complains of pain in face Pain currently is 8 out of 10 on a pain scale. Quality of pain is described as aching. EENT: Reports nasal congestion pain in forehead. 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 - Social history:: Smoking status: Patient denies any tobacco usage or history of. - Family history:: not pertinent. - Hospitalizations: : No recent hospitalization is reported. Screenin:45 Abuse screen: Denies threats or abuse. Nutritional screening: No deficits noted. ap3 Tuberculosis screening: No symptoms or risk factors identified. Fall Risk None identified. Assessment: 07:45 General: Appears in no apparent distress. uncomfortable, Behavior is calm, cooperative. ap3 General: Reports fever for 0-12 hours. Pain: Complains of pain in general body aches and pains. Neuro: Level of Consciousness is awake, alert, obeys commands, Oriented to person, place, time, situation, Appropriate for age Gait is steady, Speech is normal. Cardiovascular: Capillary refill < 3 seconds Patient's skin is warm and dry. Respiratory: Reports cough that is dry, Airway is patent Respiratory effort is even, unlabored, Respiratory pattern is regular, symmetrical, Breath sounds are clear bilaterally. Vital Signs: 07:32 BP 132 / 89; Pulse 107; Resp 17; Temp 99.3; Pulse Ox 98% ; Weight 97.52 kg; Height 5 jh6 ft. 8 in. (172.72 cm); Pain 8/10; 07:46 BP 127 / 79; Pulse 103; Resp 18; Pulse Ox 99% on R/A; ap3 07:32 Body Mass Index 32.69 (97.52 kg, 172.72 cm) 6 ED Course: 07:28 Patient arrived in ED. ds1 07:28 Parminder Velez DO is Private Physician. ds1 07:35 Triage completed. jh6 07:37 Arm band placed on left wrist. jh6 07:38 Sarkis Munoz MD is Attending Physician. rn 07:39 Bessie Smith RN is Primary Nurse. ap3 07:45 Patient has correct armband on for positive identification. Bed in low position. Call ap3 light in reach. Side rails up X 1. Pulse ox on. NIBP on. Door closed. Noise minimized. 07:54 Strep Sent. mh5 07:54 COVID swab sent to lab. Flu and/or RSV swab sent to lab. Strep swab sent to lab. mh5 07:59 XRAY Chest (1 view) In Process Unspecified. EDMS 09:04 ED physician to see patient. ap3 09:33 No provider procedures requiring assistance completed. Patient did not have IV access ap3 during this emergency room visit. Administered Medications: 07:55 Drug: Motrin (ibuprofen) 800 mg Route: PO; ap3 09:22 Follow up: Response: No adverse reaction; Pain is decreased ap3 Outcome: 09:08 Discharge ordered by . rn 09:34 Discharged to home ambulatory. ap3 09:34 Condition: good 09:34 Discharge instructions given to patient, Instructed on discharge instructions, follow up and referral plans. COVID quarantine Demonstrated understanding of instructions, follow-up care. 09:35 Patient left the ED. ap3 Signatures: Dispatcher [employer] [facility] BlaiseMichelle 1 Sarkis Munoz MD MD rn Martinez, Maria [facility] Bessie Smith RN RN ap3 Michelle Rios RN RN 6 Corrections: (The following items were deleted from the chart) 07:36 07:35 PMHx: "Thyroid Problem"; [place] [id number] 07:36 07:35 PMHx: Chronic pain; [place] [id number] 08:15 07:54 SARS-COV-2 RT PCR+MOL.LAB.BRZ drawn and sent. [address] 08:16 07:54 Influenza Screen (A \\T\\ B)+BA.LAB.BRZ drawn and sent. [address]
--- NOTE | 2021-07-21 09:26 | RAD REPORT ---
EXAM DESCRIPTION: RAD - Chest Single View - 07/21/2021 7:59 am CLINICAL HISTORY: COUGH COMPARISON: October 2018 TECHNIQUE: AP portable chest image was obtained 07/21/2021 7:59 am . FINDINGS: Lung volumes are very low. Large body habitus and overlying soft tissue affects further li mannie the examination. No focal mass or consolidation. Lung base and posterior gutter assessment is limited. Failure and vol ume overload are not suspected. Heart and vasculature are normal. No measurable pleural effusion and no pneumothorax. No acute bony a bnormality seen. No acute aortic findings suspected. IMPRESSION: Chest exam is limited but no acute cardiopulmonary process identified.
[2021-07-21 09:44] VITALS: TEMP 99.3
[2021-07-21 09:48] VITALS: BP 127/79; O2SAT 99
== END 2021-07-21 09:35 | disposition home or self-care (01) ==
LOC: ER 07:26
DX: U07.1 COVID-19 (principal); J06.9 Acute upper respiratory infection, unspecified
CPT/HCPCS: 87070; 87081; 81003; 0240U; 71045; 99284

== ENCOUNTER 2021-08-03 08:49 | Emergency (ER) | payer OTHER ==
--- OUTSIDE RECORDS SUMMARY | 2021-08-03 08:54 | XMS REPORT | Continuity of Care Document ---
:1970 Author Organization [facility] t Address [address] [place] [address] Support Name Relationship Address Phone Joseph Other [address] [place] [address] L Ruiz Relative [address] [place] [address] N Sedrick Child [address] [place] [address] Sedrick Unavailable [address] [phone] [place] [address] Sedrick Unavailable [address] [phone] [place] [address] SEDRICK, N [address] [place] [address] Savi RUIZ Relative [address] [place] [address] Care Team Providers Name Role Phone Norma Velez Primary Care Physician Hasmukh LOPEZ Attending Clinician Jaycee DNP, APPOINTMENT MANAGER, CNP-BC, N Attending Clinician Doctor Unassigned, Name Attending Clinician Unavailable Payers Payer Name Policy Type Policy Number Effective Date Expiration Date S ource Problems Condition Condition Condition Status Onset Resolution Last Treating Co mments Source Name Details Category Date Date Treatment Clinician Date CHRONIC Diagnosis Active 2019-02-01 Me moria SDH 3-03 10:05:00 l CHRONIC 00:00: [place] SDH 00 Active 10/08/2018 [facility] NON Diagnosis Active 2018-10-08 Mem oria SUBACUTE 3-03 10:22:00 l TRAUMATIC NON 00:00: Carlos SUBDURAL SUBACUTE 00 HEMATOMA TRAUMATIC SUBDURAL HEMATOMA Active 10/08/2018 [facility] Status Status Disease Active [facility] post post 2 ity of vaginal vaginal 00:00: [place] hysterecto hysterecto 00 Me dical my my Branch Post-opera Post-opera Disease Active U nivers tive state tive state 2-23 it y of 00:00: [place] 00 Medical Branch Uterine Uterine Disease Active [facility] polyp polyp 1-05 ity of 00:00: [place] 00 Medical Branch Goiter Goiter Disease Active 2014-08 [facility] 0-07 ity of 00:00: [place] 00 Medical Branch Simple Problem Active 2019-04-08 Memor ia obesity 00:24:36 l (disorder) Simple Herm ree obesity (disorder) Active Problem 04/08/2019 [facility], OPID Carlos, OPID Dewar NONTRAUMAT Diagnosis Active 2019-02-01 Memoria IC CHRONIC 10:05:00 l SUBDURAL Carlos HEMORRHAGE NONTRAUMAT IC CHRONIC SUBDURAL HEMORRHAGE Active [facility] Allergies, Adverse Reactions, Alerts Allergy Allergy Status Severity Reaction(s) Onset Inactive Treating Comm ents Source Name Type Date Date Clinician Penicill Propensi Active Other - See 2014-08 Childhoo d [facility] ins ty to comments 07 allergy ity of adverse 00:00: [place] reaction 00 Medical s Branch Penicill Adverse Active hives [facility] penicill penicill Active Memori a in in l [place] Social History Social Habit Start Date Stop Date Quantity Comments Source History SDDC [facility] [place] Alcohol Frequency Medical Branch History SDOH [facility] [place] Alcohol Std Drinks Medica l Branch History [facility] [place] Alcohol Binge Medical [facility] Exposure to Not sure [facility] SARS-CoV-2 (event) Medica l Branch Alcohol intake 2021-07-24 2021-07-24 0 /d [facility] 00:00:00 00:00:00 Medical Branch Alcohol Comment 2021-07-24 2021-07-24 occasional [facility] 00:00:00 00:00:00 Medical Branch Sex Ass[birth year] [facility] 00:00:00 00:00:00 Medical Branch Smoking Status Start Date Stop Date Source Never smoker [facility] Medical Branch Medications Ordered Filled Start Stop Current Ordering Indication Dosage Frequency Signature Comments Components Source Medication Medication Date Date Medication? Clinician (SIG) Name Name solifenacin 2020-08 Yes [id number] 10mg Take 1 Univers (VESICARE) 2-17 tablet by ity of 10 mg 00:00: mouth at [place] tablet 00 bedtime. Medical Branch NAPROXEN 2020-08 Yes 1{tbl} Take 1 Unive rs ORAL 0-29 tablet by ity of 10:13: mouth. [address] DULoxetine 2020-08 Yes 20mg Take 20 mg U nivers 20 mg 0-29 by mouth ity of capsule 10:13: daily. [address] traMADoL 2019-08 Yes [id number] 50mg Take 1 Univers (ULTRAM) 50 2-02 tablet by ity of mg tablet 00:00: mouth [place] 00 every 6 Medical (six) Branch hours as needed for Pain (scale 7-10). Indication s: acute pain methocarbam 2019-08 Yes [id number] 750mg Take 1 Univers oL 750 mg 2-02 tablet by ity o f tablet 00:00: mouth [place] 00 every 6 Medical (six) Branch hours as needed (MUSCLE SPASM). cetirizine Yes [id number] 10mg Take 1 Univers 10 mg 3-16 tablet by ity of tablet 00:00: mouth [place] 00 daily. Medical Branch fluticasone Yes [id number] 2{spray Use 2 Univers propionate 3-16 } [...] H ermann 00 tab, 0 Refill(s) Albuterol 2018- Yes 3 mL, NEB, Me moria 0.833 MG/ML 3-06 RQ4H, PRN l / 15:24: Wheezing, Carlos Ipratropium 00 0 [place] Refill(s) 0.167 MG/ML Inhalant Solution Acetaminoph Yes [...] / 15:24: Wheezing, Carlos Ipratropium 00 0 [place] Refill(s) 0.167 MG/ML Inhalant Solution Acetaminoph Yes 100.4 F, M emoria en 325 MG 3-06 0 l Oral Tablet 15:24: Refill(s) H erm Bisacodyl No Notes: Memori a 3-05 (Same As: l 20:47: Dulcolax, [place] 00 Bisco-Lax) Bisacodyl No Notes: Memori a 3-05 (Same As: l 20:47: Dulcolax, [place] 00 Bisco-Lax) Tramadol No Notes: Not Mem oria 3-05 to exceed l 19:56: 400mg/day. Perry 00 (Same As: Ultram) Tramadol No Notes: Not Mem oria 3-05 to exceed l 19:56: 400mg/day. [place] 00 (Same As: Ultram) heparin No Notes: Memoria 3-05 porcine l 05:55: heparin [place] heparin No Notes: Memoria 3-05 porcine l 05:55: heparin [place] 00 remove No 1 patch, Memoria patch 3-05 Route: l 03:00: TOP, Perry 00 Bedtime, Drug form: ERFILM, Start date: 10/09/18 21:00:00 EXCEL DEVELOPER, Duration: 30 day, Stop date: 11/07/18 21:00:00 CDT remove No 1 patch, Memoria patch 3-05 Route: l 03:00: TOP, Carlos 00 Bedtime, Drug form: ERFILM, Start date: 10/09/18 21:00:00 EXCEL DEVELOPER, Duration: 30 day, Stop date: 11/07/18 21:00:00 CDT Robaxin No Notes: Memoria 3-04 (Same l 19:00: as:Robaxin [place] ) Robaxin No Notes: Memoria 3-04 (Same l 19:00: as:Robaxin Carlos 00 ) Lyrica No Notes: Memoria 3-04 (Same as: l 15:18: Lyrica) Carlos Lyrica No Notes: Memoria 3-04 (Same as: l 15:18: Lyrica) Carlos 00 Miralax No Notes: Memoria 3-04 Dissolve l 15:17: in 8 oz of Perry 00 water or juice. (Same as: Miralax) Miralax No Notes: Memoria 3-04 Dissolve l 15:17: in 8 oz of Perry 00 water or juice. (Same as: Miralax) Lidocaine No 1 patch, Edison anny 0.05 MG/MG 3-04 Route: l Transdermal 15:00: TOP, Narinder n Patch 00 Daily, Drug form: FILM, Start date: 10/09/18 9:00:00 EXCEL DEVELOPER, Duration: 30 day, Stop date: 11/07/18 9:00:00 CDT Lidocaine No 1 patch, Edison anny 0.05 MG/MG 3-04 Route: l Transdermal 15:00: TOP, Narinder n Patch 00 Daily, Drug form: FILM, Start date: 10/09/18 9:00:00 EXCEL DEVELOPER, Duration: 30 day, Stop date: 11/07/18 9:00:00 CDT Tramadol No Notes: Not Mem oria 3-04 to exceed l 04:24: 400mg/day. Perry 00 (Same As: Ultram) Tramadol No Notes: [...] ___ mg sennosides, No Notes: Edison anny ASSISTED 3-04 (Same as: l 03:00: Senokot) Docusate No 100 mg, 1 Edison anny 3-04 cap, l 03:00: Route: PO, Carlos 00 Drug form: CAP, Q12H, Dosing Weight 95.455, kg, Start date: 10/08/18 21:00:00 EXCEL DEVELOPER, Duration: 30 day, Stop date: 11/07/18 9:00:00 CDT Keppra No Notes: Memoria 3-04 (Same l 03:00: as:Keppra) Saline No Notes: Memoria Flush 0.9% 3-04 (Same as: l 03:00: BD Posiflush) Levetiracet No Notes: Memoria am 3-04 MEDICATION l 03:00: WASTE Product Size: 500 mg Product Wasted: ___ mg sennosides, No Notes: Edison anny ASSISTED 3-04 (Same as: l 03:00: Senokot) Docusate No 100 mg, 1 Edison anny 3-04 cap, l 03:00: Route: PO, Perry 00 Drug form: CAP, Q12H, Dosing Weight 95.455, kg, Start date: 10/08/18 21:00:00 EXCEL DEVELOPER, Duration: 30 day, Stop date: 11/07/18 9:00:00 CDT Vancomycin No 2001 mg: Me moria 3-04 infuse l 00:00: over 2.5 [place] 00 hours For adult patients only: Round to nearest 250 mg per Medical Staff approval MEDICATION WASTE Product Size: 1000 mg Product Wasted: ___ mg Vancomycin 2019-0 No 2001 mg: Me moria 3-04 infuse l 00:00: over 2.5 Carlos 00 hours For adult patients only: Round to nearest 250 mg per Medical Staff approval MEDICATION WASTE Product Size: 1000 mg Product Wasted: ___ mg Artificial 2019-0 No 2 drp, Memor ia Tears 3 Route: l 23:00: BOTH EYES, Carlos 00 BID, Drug form: SOLN, Start date: 10/08/18 17:00:00 EXCEL DEVELOPER, Duration: 30 day, Stop date: 11/07/18 9:00:00 CDT Artificial 2019-0 No 2 drp, Memor ia Tears 10-08 Route: l 23:00: BOTH EYES, Perry 00 BID, Drug form: SOLN, Start date: 10/08/18 17:00:00 EXCEL DEVELOPER, Duration: 30 day, Stop date: 11/07/18 9:00:00 CDT Vancomycin 2019-0 No 1 gm, Memori a 3- Route: IV, l 22:00: Q8H, Dosing Weight 95.455, kg, Start date: 10/08/18 16:00:00 EXCEL DEVELOPER, Duration: 1 day, Stop date: 10/09/18 8:00:00 EXCEL DEVELOPER, ABX Indication : Surgical Prophylaxi s Vancomycin 2019-0 No 1 gm, Memori a 3-03 Route: IV, l 22:00: Q8H, Dosing Weight 95.455, kg, Start date: 10/08/18 16:00:00 EXCEL DEVELOPER, Duration: 1 day, Stop date: 10/09/18 8:00:00 EXCEL DEVELOPER, ABX Indication : Surgical Prophylaxi s Glucagon 2019-0 No 1 mg, Memoria 3-03 Route: IM, l 20:19: Drug form: Carlos PDR/INJ, PRN, Dosing Weight 95.455, kg, PRN Blood Glucose Results, Start date: 10/08/18 14:19:00 EXCEL DEVELOPER, Duration: 30 day, Stop date: 11/07/18 15:18:00 CDT Dextrose 2019-0 No 25 gm, 50 Edison anny 50% Syringe 3-03 mL, Route: l 20:19: IVP, Drug [place] 00 Form: INJ, Dosing Weight 95.455, kg, PRN, PRN Blood Glucose Results, Start date: 10/08/18 14:19:00 EXCEL DEVELOPER, Duration: 30 day, Stop date: 11/07/18 15:18:00 [...] Blood Glucose Results, Start date: 10/08/18 14:19:00 EXCEL DEVELOPER, Duration: 30 day, Stop date: 11/07/18 15:18:00 CDT Dextrose 2019-0 No 25 gm, 50 Edison anny 50% Syringe 3-03 mL, Route: l 20:19: IVP, Drug Carlos 00 Form: INJ, Dosing Weight 95.455, kg, PRN, PRN Blood Glucose Results, Start date: 10/08/18 14:19:00 EXCEL DEVELOPER, Duration: 30 day, Stop date: 11/07/18 15:18:00 CDT Insulin 2019-0 No 60 Memoria regular 3-03 units) l 20:19: WASTE: F/P [place] - Black; E - Municipal Trash Bin Stable for 28 days at room temperatur e Expires in days from ____Date Potassium 2019-0 No Notes: Memori a Chloride - (Same as: l 20:18: KCL) [place] 00 Infuse over 2 hours. Calcium 2018-0 No Notes: Memoria Gluconate 3- WASTE: F/P l 20:18: - Sink; E [place] - Municipal Trash Bin Magnesium 2019-0 No Notes: Memori a Oxide - (Same as: l 20:18: Mag-Ox Carlos 00 400) Magnesium oxide 113rk=244v g elemental magnesium Dose=____m g magnesium oxide [...] 3-03 (Same as: l odium 20:18: Phos-NaK) [place] phosphate 00 Each 1.5 250 mg-280 gm pkt has mg-160 mg 250mg oral powder phosphorou for s. Mix reconstitut w/2.5oz ion water and stir. Magnesium No Notes: Memori a Sulfate - WASTE: F/P l 20:18: - Sink; E Perry 00 - Municipal Trash Bin sodium No Notes: Memoria phosphate 3-03 Infuse l 20:18: over 4 Perry 00 hour. Do not infuse phosphorou s [...] WASTE: F/P l 20:18: - Sink; E [place] - Municipal Trash Bin Magnesium No Notes: Memori a Oxide 3-03 (Same as: l 20:18: Mag-Ox Carlos 00 400) Magnesium oxide 179ol=170o g elemental magnesium Dose=____m g magnesium oxide [...] phosphate 3-03 Infuse l 20:18: over 4 Perry 00 hour. Do not infuse phosphorou s [...] PRN Hypertensi on, Start date: 10/08/18 14:13:00 EXCEL DEVELOPER, Duration: 30 day, Stop date: 11/07/18 14:12:00 CDT Hydralazine No Notes: Edison anny 3-03 (Same as: l 20:13: Apresoline ) Push over 5 minutes Labetalol No 10 mg, 2 Edison anny 3-03 mL, Route: l 20:13: IVP, Drug Carlos 00 form: INJ, Q4H, Dosing Weight 95.455, kg, PRN Hypertensi on, Start date: 10/08/18 14:13:00 EXCEL DEVELOPER, Duration: 30 day, Stop date: 11/07/18 14:12:00 CDT sugammadex 2019-0 No Route: IV, Norma emoria (ANES) 10-08 Drug form: l 18:30: SOLN, Carlos 00 ONCE, Stop date: 10/08/18 12:30:00 EXCEL DEVELOPER sugammadex 2019-0 No Route: IV, M emoria (ANES) 10-08 Drug form: l 18:30: SOLN, Carlos 00 ONCE, Stop date: 10/08/18 12:30:00 EXCEL DEVELOPER Hydralazine 2019-0 No 10 mg, Edison anny 10-08 Route: l 18:18: IVP, [place] 00 Q20Min, Dosing Weight 95.455, kg, PRN Elevated BP, Start date: 10/08/18 12:18:00 EXCEL DEVELOPER, Duration: 2 doses or times, Stop date: Limited # of times Labetalol 2019-0 No 10 mg, 2 Edison anny 3-03 mL, Route: l 18:18: IVP, Drug form: INJ, Q5Min, Dosing Weight 95.455, kg, PRN Elevated BP, Start date: 10/08/18 12:18:00 EXCEL DEVELOPER, Duration: 5 doses or times, Stop date: 10/09/18 0:00:00 EXCEL DEVELOPER Acetaminoph 2019-0 No 1,000 mg, M emoria en 10-08 Route: PO, l 18:18: Drug form: Carlos 00 TAB, ONCE, Dosing Weight 95.455, kg, PRN Pain Score 1-3, Start date: 10/08/18 12:18:00 EXCEL DEVELOPER Promethazin 2019-0 No 6.25 mg, Me moria e 10-08 Route: l 18:18: IVPB, Carlos 00 ONCE, Dosing Weight 95.455, kg, PRN Nausea & Vomiting, Start date: 10/08/18 12:18:00 EXCEL DEVELOPER Ondansetron 2019-0 No 4 mg, Memor ia 10-08 Route: l 18:18: IVP, ONCE, Carlos 00 Dosing Weight 95.455, kg, PRN Nausea & Vomiting, Start date: 10/08/18 12:18:00 EXCEL DEVELOPER Dexamethaso 2019-0 No 4 mg, Memor ia ne 10-08 Route: l 18:18: IVP, ONCE, [place] 00 Dosing Weight 95.455, kg, PRN Nausea & Vomiting, Start date: 10/08/18 12:18:00 EXCEL DEVELOPER Naloxone 2019-0 No 0.4 mg, Memori a 10-08 Route: l 18:18: IVP, Carlos 00 Q2MIN, Dosing Weight 95.455, kg, PRN Narcotic Reversal, Start date: 10/08/18 12:18:00 EXCEL DEVELOPER, Duration: 8 doses or times, Stop date: Limited # of times Flumazenil 2019-0 No 0.2 mg, Edison anny 10-08 Route: l 18:18: IVP, PRN, Dosing Weight 95.455, kg, PRN Benzodiaze pine Reversal, Initial dose, Start date: 10/08/18 12:18:00 EXCEL DEVELOPER, Duration: 30 day, Stop date: 11/07/18 13:17:00 CDT Hydromorpho 2019-0 No 0.5 mg, Mem oria ne 10-08 Route: l 18:18: IVP, [place] 00 Q5Min, Dosing Weight 95.455, kg, PRN Pain Score 7-10, Start date: 10/08/18 12:18:00 EXCEL DEVELOPER, Duration: 4 doses or times, Stop date: Limited # of times Hydralazine 2019-0 No 10 mg, Edison anny 3-03 Route: l 18:18: IVP, [place] 00 Q20Min, Dosing Weight 95.455, kg, PRN Elevated BP, Start date: 10/08/18 12:18:00 EXCEL DEVELOPER, Duration: 2 doses or times, Stop date: Limited # of times Labetalol 2019-0 No 10 mg, 2 Edison anny 3-03 mL, Route: l 18:18: IVP, Drug form: INJ, Q5Min, Dosing Weight 95.455, kg, PRN Elevated BP, Start date: 10/08/18 12:18:00 EXCEL DEVELOPER, Duration: 5 doses or times, Stop date: 10/09/18 0:00:00 EXCEL DEVELOPER Acetaminoph 2019-0 No 1,000 mg, M joniria en 3 Route: PO, l 18:18: Drug form: [place] 00 TAB, ONCE, Dosing Weight 95.455, kg, PRN Pain Score 1-3, Start date: 10/08/18 12:18:00 EXCEL DEVELOPER Promethazin 2019-0 No 6.25 mg, Me moria e 10-08 Route: l 18:18: IVPB, [place] 00 ONCE, Dosing Weight 95.455, kg, PRN Nausea & Vomiting, Start date: 10/08/18 12:18:00 EXCEL DEVELOPER Ondansetron 2019-0 No 4 mg, Memor ia - Route: l 18:18: IVP, ONCE, Dosing Weight 95.455, kg, PRN Nausea & Vomiting, Start date: 10/08/18 12:18:00 EXCEL DEVELOPER Dexamethaso 2019-0 No 4 mg, Memor ia ne 10-08 Route: l 18:18: IVP, ONCE, Dosing Weight 95.455, kg, PRN Nausea & Vomiting, Start date: 10/08/18 12:18:00 EXCEL DEVELOPER Naloxone 2019-0 No 0.4 mg, Memori a 10-08 Route: l 18:18: IVP, [place] 00 Q2MIN, Dosing Weight 95.455, kg, PRN Narcotic Reversal, Start date: 10/08/18 12:18:00 EXCEL DEVELOPER, Duration: 8 doses or times, Stop date: Limited # of times Flumazenil 2019-0 No 0.2 mg, Edison anny 10-08 Route: l 18:18: IVP, PRN, Dosing Weight 95.455, kg, PRN Benzodiaze pine Reversal, Initial dose, Start date: 10/08/18 12:18:00 EXCEL DEVELOPER, Duration: 30 day, Stop date: 11/07/18 13:17:00 CDT Hydromorpho 2019-0 No 0.5 mg, Mem oria ne 10-08 Route: l 18:18: IVP, [place] 00 Q5Min, Dosing Weight 95.455, kg, PRN Pain Score 7-10, Start date: 10/08/18 12:18:00 EXCEL DEVELOPER, Duration: 4 doses or times, Stop date: Limited # of times sugammadex 2019-0 No Notes: Memor ia 3- (Same as: l 18:00: [place]) sugammadex 2018-0 No Notes: Memor ia 3- (Same as: l 18:00: [place]) famotidine 0 No Route: IV, M emoria (ANES) 10-08 Drug form: l 17:59: INJ, ONCE, Stop date: 10/08/18 11:59:00 EXCEL DEVELOPER metoclopram 2018-0 No Route: IV, Memoria anais (ANES) 10-08 Drug form: l 17:59: INJ, ONCE, Stop date: 10/08/18 11:59:00 EXCEL DEVELOPER ondansetron 2018-0 No Route: IV, Memoria (ANES) 10-08 Drug form: l 17:59: INJ, ONCE, Stop date: 10/08/18 11:59:00 EXCEL DEVELOPER famotidine 2018-0 No Route: IV, M emoria (ANES) 10-08 Drug form: l 17:59: INJ, ONCE, Stop date: 10/08/18 11:59:00 EXCEL DEVELOPER metoclopram 2018-0 No Route: IV, Memoria anais (ANES) 10-08 Drug form: l 17:59: INJ, ONCE, Stop date: 10/08/18 11:59:00 EXCEL DEVELOPER ondansetron 2018-0 No Route: IV, Memoria (ANES) 10-08 Drug form: l 17:59: INJ, ONCE, Stop date: 10/08/18 11:59:00 EXCEL DEVELOPER phenylephri 2018-0 No Route: IV, Memoria ne (ANES) 10-08 Drug form: l 17:57: INJ, ONCE, Stop date: 10/08/18 11:57:00 EXCEL DEVELOPER phenylephri 2018-0 No Route: IV, Memoria ne (ANES) 10-08 Drug form: l 17:57: INJ, ONCE, Stop date: 10/08/18 11:57:00 EXCEL DEVELOPER lidocaine 2019-0 No Route: IV, Me moria (ANES) 10-08 Drug form: l 17:51: INJ, ONCE, Stop date: 10/08/18 11:51:00 EXCEL DEVELOPER dexamethaso 2019-0 No Route: IV, Memoria ne (ANES) 10-08 Drug form: l 17:51: INJ, ONCE, Stop date: 10/08/18 11:51:00 EXCEL DEVELOPER propofol 2019-0 No Route: IV, Mem oria (ANES) 10-08 Drug form: l 17:51: INJ, ONCE, Stop date: 10/08/18 11:51:00 EXCEL DEVELOPER rocuronium 2019-0 No Route: IV, M emoria (ANES) 10-08 Drug form: l 17:51: INJ, ONCE, Stop date: 10/08/18 11:51:00 EXCEL DEVELOPER levETIRAcet 2019-0 No Route: IV, Memoria am (ANES) 10-08 Drug form: l 17:51: INJ, ONCE, Stop date: 10/08/18 11:51:00 EXCEL DEVELOPER fentaNYL 2019-0 No Route: IV, Mem oria (ANES) 10-08 Drug form: l 17:51: INJ, ONCE, Stop date: 10/08/18 11:51:00 EXCEL DEVELOPER lidocaine 2019-0 No Route: IV, Me moria (ANES) 10-08 Drug form: l 17:51: INJ, ONCE, Stop date: 10/08/18 11:51:00 EXCEL DEVELOPER dexamethaso 2019-0 No Route: IV, Memoria ne (ANES) 10-08 Drug form: l 17:51: INJ, ONCE, Stop date: 10/08/18 11:51:00 EXCEL DEVELOPER propofol 2019-0 No Route: IV, Mem oria (ANES) 10-08 Drug form: l 17:51: INJ, ONCE, Stop date: 10/08/18 11:51:00 EXCEL DEVELOPER rocuronium 2019-0 No Route: IV, M emoria (ANES) 10-08 Drug form: l 17:51: INJ, ONCE, Stop date: 10/08/18 11:51:00 EXCEL DEVELOPER levETIRAcet 2019-0 No Route: IV, Memoria am (ANES) 10-08 Drug form: l 17:51: INJ, ONCE, Stop date: 10/08/18 11:51:00 EXCEL DEVELOPER fentaNYL 2019-0 No Route: IV, Mem oria (ANES) 10-08 Drug form: l 17:51: INJ, ONCE Stop date: 10/08/18 11:51:00 EXCEL DEVELOPER propofol 2019-0 No Route: IV, Mem oria (ANES) 10 10-08 Drug form: l mg 16:30: INJ, date: 10/08/18 10:30:00 EXCEL DEVELOPER, Stop date: 10/08/18 11:30:00 EXCEL DEVELOPER remifentani 2019-0 No Route: IV, Memoria l (ANES) 1 10-08 Drug form: l mg 16:30: INJ, date: 10/08/18 10:30:00 EXCEL DEVELOPER, Stop date: 10/08/18 11:30:00 EXCEL DEVELOPER propofol 2019-0 No Route: IV, Mem oria (ANES) 10 10-08 Drug form: l mg 16:30: INJ, date: 10/08/18 10:30:00 EXCEL DEVELOPER, Stop date: 10/08/18 11:30:00 EXCEL DEVELOPER remifentani 2019-0 No Route: IV, Memoria l (ANES) 1 10-08 Drug form: l mg 16:30: INJ, date: 10/08/18 10:30:00 EXCEL DEVELOPER, Stop date: 10/08/18 11:30:00 EXCEL DEVELOPER Sodium 2019-0 No Route: IV, Memor ia Chloride 10-08 Drug form: l 0.9% IV 16:25: INJ, Start Herm ree (ANES) date: mL + 10/08/18 vancomycin 10:25:00 (ANES) 1500 EXCEL DEVELOPER, Stop mg date: 10/08/18 11:25:00 EXCEL DEVELOPER Sodium 2019-0 No Route: IV, Memor ia Chloride 303 Drug form: l 0.9% IV 16:25: INJ, Start Herm ree (ANES) date: mL 10/08/18 vancomycin 10:25:00 (ANES) 1500 EXCEL DEVELOPER, Stop mg date: 10/08/18 11:25:00 EXCEL DEVELOPER Isolyte S 2018-0 No Route: IV, Me moria PH 7.4 3-03 Total l (ANES) 1000 16:09: Volume: Her salas mL 00 1,000, Start date: 10/08/18 10:09:00 EXCEL DEVELOPER, Stop date: 10/08/18 11:09:00 EXCEL DEVELOPER Isolyte S 2018-0 No Route: IV, Me moria PH 7.4 3-03 Total l (ANES) 1000 16:09: Volume: Her salas mL 00 1,000, Start date: 10/08/18 10:09:00 EXCEL DEVELOPER, Stop date: 10/08/18 11:09:00 EXCEL DEVELOPER Saline 2018-0 No Notes: Memoria Flush 0.9% 10-08 (Same as: l 15:57: BD Perry 00 Posiflush) Albuterol 2019-0 No 3 ml, Memoria 0.833 MG/ML 10-08 Route: l / 15:57: NEB, Drug Perry Ipratropium 00 Form: [place] SOLN, 0.167 MG/ML Dosing Inhalant Weight Solution 95.455, kg, RQ4H, PRN Wheezing, Start date: 10/08/18 9:57:00 EXCEL DEVELOPER, Duration: 30 day, Stop date: 11/07/18 9:56:00 CDT Labetalol 2018-0 No 10 mg, 2 Edison anny 3-03 mL, Route: l 15:57: IVP, Drug Perry 00 form: INJ, Q15Min, Dosing Weight 95.455, kg, PRN Hypertensi on, Start date: 10/08/18 9:57:00 EXCEL DEVELOPER, Duration: 30 day, Stop date: 11/07/18 10:56:00 CDT Hydralazine 2018-0 No 20 mg, 1 Me moria 3-03 mL, Route: l 15:57: IVP, Drug Carlos 00 form: INJ, Q4H, Dosing Weight 95.455, kg, PRN Hypertensi on, Start date: 10/08/18 9:57:00 EXCEL DEVELOPER, Duration: 30 day, Stop date: 11/07/18 9:56:00 CDT Sodium 2019-0 No 1,000 mL, Memori a Chloride 10-08 Rate: 50 l 0.9% IV 15:57: ml/hr, Carlos 1,000 mL 00 Infuse over: 20 hr, Route: IV, Dosing Weight 95.455 kg, Total Volume: 1,000, Start date: 10/08/18 9:57:00 EXCEL DEVELOPER, Duration: 30 day, Stop date: 11/07/18 9:56:00 CDT, 2.16, m2 Levetiracet No Notes: Edison anny am 10-08 Same as l 15:57: Keppra Mix with 100 mL NS, LR or D5W MEDICATION WASTE Product Size: 500 mg Product Wasted: ___ mg Acetaminoph No 100.4 F, M emoria en 03 Start l 15:57: date: Perry 00 10/08/18 9:57:00 EXCEL DEVELOPER, Duration: 30 day, Stop date: 11/07/18 9:56:00 CDT Ondansetron No Notes: Memoria - MEDICATION l 15:57: WASTE Product Size: 4 mg Product Wasted: ___ mg Bisacodyl No 10 mg, 1 Edison anny 10-08 supp, l 15:57: Route: IA, Drug form: SUPP, Daily, Dosing Weight 95.455, kg, PRN Constipati on, Start date: 10/08/18 9:57:00 EXCEL DEVELOPER, Duration: 30 day, Stop date: 11/07/18 9:56:00 CDT Saline 0 No Notes: Memoria Flush 0.9% 10-08 (Same as: l 15:57: BD Posiflush) Albuterol No 3 ml, Memoria 0.833 MG/ML 10-08 Route: l / 15:57: NEB, Drug Ipratropium Form: [place] SOLN, 0.167 MG/ML Dosing Inhalant Weight Solution 95.455, kg, RQ4H, PRN Wheezing, Start date: 10/08/18 9:57:00 EXCEL DEVELOPER, Duration: 30 day, Stop date: 11/07/18 9:56:00 CDT Labetalol No 10 mg, 2 Edison anny 3-03 mL, Route: l 15:57: IVP, Drug form: INJ, Q15Min, Dosing Weight 95.455, kg, PRN Hypertensi on, Start date: 10/08/18 9:57:00 EXCEL DEVELOPER, Duration: 30 day, Stop date: 11/07/18 10:56:00 CDT Hydralazine 2019-0 No 20 mg, 1 Me moria 3-03 mL, Route: l 15:57: IVP, Drug form: INJ, Q4H, Dosing Weight 95.455, kg, PRN Hypertensi on, Start date: 10/08/18 9:57:00 EXCEL DEVELOPER, Duration: 30 day, Stop date: 11/07/18 9:56:00 CDT Sodium 2018-0 No 1,000 mL, Memori a Chloride 10-08 Rate: 50 l 0.9% IV 15:57: ml/hr, Carlos 1,000 mL 00 Infuse over: 20 hr, Route: IV, Dosing Weight 95.455 kg, Total Volume: 1,000, Start date: 10/08/18 9:57:00 EXCEL DEVELOPER, Duration: 30 day, Stop date: 11/07/18 9:56:00 CDT, 2.16, m2 Levetiracet 2018-0 No Notes: Edison anny am -03 Same as l 15:57: Keppra Mix with 100 mL NS, LR or D5W MEDICATION WASTE Product Size: 500 mg Product Wasted: ___ mg Acetaminoph 2018-0 No 100.4 F, M emoria en 3-03 Start l 15:57: date: 10/08/18 9:57:00 EXCEL DEVELOPER, Duration: 30 day, Stop date: 11/07/18 9:56:00 CDT Ondansetron 2018-0 No Notes: Memoria 3-03 MEDICATION l 15:57: WASTE Product Size: 4 mg Product Wasted: ___ mg Bisacodyl 2019-0 No 10 mg, 1 Edison anny 3-03 supp, l 15:57: Route: IA, Drug form: SUPP, Daily, Dosing Weight 95.455, kg, PRN Constipati on, Start date: 10/08/18 9:57:00 EXCEL DEVELOPER, Duration: 30 day, Stop date: 11/07/18 9:56:00 CDT Zofran 2019-0 No 4 mg, Memoria 3-03 Route: l 15:09: IVP, Drug Perry 00 form: INJ, ONCE, Dosing Weight 95.455, kg, Priority: STAT, Start date: 10/08/18 9:09:00 EXCEL DEVELOPER, Stop date: 10/08/18 9:09:00 EXCEL DEVELOPER Morphine 2019-0 No 4 mg, Memoria 3-03 Route: l 15:09: IVP, ONCE, Perry 00 Dosing Weight 95.455, kg, Priority: STAT, Start date: 10/08/18 9:09:00 EXCEL DEVELOPER, Stop date: 10/08/18 9:09:00 EXCEL DEVELOPER Sodium 2019-0 No 1,000 mL, Mem[facility] a Chloride 3-03 Infuse l 0.9% 15:09: Over: 1 Perry (Bolus) IV 00 hr, Route: IV, ONCE, Priority: STAT, Dosing Weight 95.455 kg, Start date: 10/08/18 9:09:00 EXCEL DEVELOPER, Stop date: 10/08/18 9:09:00 EXCEL DEVELOPER Zofran 2019-0 No 4 mg, [facility] 3-03 Route: l 15:09: IVP, Drug Perry form: INJ, ONCE, Dosing Weight 95.455, kg, Priority: STAT, Start date: 10/08/18 9:09:00 EXCEL DEVELOPER, Stop date: 10/08/18 9:09:00 EXCEL DEVELOPER Morphine 2019-0 No 4 mg, [facility] 3-03 Route: l 15:09: IVP, ONCE, Perry Dosing Weight 95.455, kg, Priority: STAT, Start date: 10/08/18 9:09:00 EXCEL DEVELOPER, Stop date: 10/08/18 9:09:00 EXCEL DEVELOPER Sodium 2019-0 No 1,000 mL, [facility] a Chloride 3-03 Infuse l 0.9% 15:09: Over: 1 Carlos (Bolus) IV 00 hr, Route: IV, ONCE, Priority: STAT, Dosing Weight 95.455 kg, Start date: 10/08/18 9:09:00 EXCEL DEVELOPER, Stop date: 10/08/18 9:09:00 EXCEL DEVELOPER Sulfamethox Sulfamethox Yes Parminder not [facility] [...] Comments Source Heart Rate 2018-10-11 17:26:00 [facility] Temperature Oral (F) 2018-10-11 17:26:00 97.9 F [facility] Respitory Rate 2018-10-11 17:26:00 [facility] Systolic (mm Hg) 2018-10-11 17:26:00 [facility] Diastolic (mm Hg) 2018-10-11 17:26:00 [facility] Systolic (mm Hg) 2018-10-11 13:44:00 [facility] Diastolic (mm Hg) 2018-10-11 13:44:00 [facility] Respitory Rate 2018-10-11 13:44:00 [facility] Heart Rate 2018-10-11 13:44:00 [facility] Temperature Oral (F) 2018-10-11 13:44:00 99.1 F [facility] Temperature Oral (F) 2018-10-11 10:47:00 97.9 F [facility] Heart Rate 2018-10-11 10:47:00 [facility] Respitory Rate 2018-10-11 10:47:00 [facility] Systolic (mm Hg) 2018-10-11 10:47:00 [facility] Diastolic (mm Hg) 2018-10-11 10:47:00 [facility] [place] Weight 2018-10-08 21:12:00 [facility] Carlos Weight 2018-10-08 14:38:00 [facility] Carlos Height 2018-10-08 14:38:00 172.72 cm [facility] BMI Calculated 2018-10-08 14:38:00 [facility] Procedures This patient has no known procedures. Encounters Start End Encounter Admission Attending Care Care Encounter Source Date/Time Date/Time Type Type Clinicians Facility Department ID 2018-10-08 Inpatient E [facility] [id number] [facility] 09:57:00 2021-07-27 2021-07-27 Telephone Hasmukh [facility] [id number] [facility] 00:00:00 00:00:00 [facility] [id number] it y of CLEAR [id number] Zahira TORRES [id number] [facility] [address] [place] OFFICE BUILDING 2021-07-01 2021-07-01 ambulatory [facility] [id number] [facility] 2021-06-30 2021-06-30 ambulatory [facility] [id number] [facility] 2021-05-05 2021-05-05 Outpatient [facility] [id number] [facility] 2021-02-23 2021-02-23 Outpatient [facility] [id number] [facility] 2021-02-23 2021-02-23 Outpatient [facility] [id number] [facility] 2021-01-26 2021-01-26 Outpatient [facility] [id number] [facility] 2021-01-23 2021-01-23 Office [facility] [id number] 08:50:29 10:03:[facility] [id number] Clear [id number] Torres [phone] [place] [address] Office Building 2021-01-23 2021-01-23 Orders Doctor KEDAR [id number] 00:00:00 00:00:00 Only Unassigned, NIKO [id number] [place] [facility] [id number] 2021-01-15 2021-01-15 Outpatient [facility] [id number] [facility] 2021-01-06 2021-01-06 Outpatient [facility] [id number] [facility] 2020-11-25 2020-11-25 Outpatient [facility] [id number] [facility] 2020-09-11 2020-09-11 Outpatient [facility]LC [id number] [facility] 2020-09-11 2020-09-11 Outpatient [facility] [id number] [facility] 2020-08-14 2020-08-14 Outpatient [facility] [id number] [facility] 2020-07-16 2020-07-16 [id number] 2020-03-26 2020-03-26 [facility] [id number] [facility] 15:00:00 15:00:00 t Casar [employer] s - Drive [facility] Family Medicine l Medicine Outpati ent Clinics 2020-03-24 2020-03-24 [facility] [id number] 08:34:00 08:34:00 t Casar [employer] s - Drive [facility] Family Medicine l Medicine Outpati ent Clinics 2020-03-18 2020-03-18 [facility] [id number] 16:45:00 16:45:00 t Casar [employer] s - Drive [facility] Family Medicine l Medicine Outpati ent Clinics 2020-03-18 2020-03-18 [facility] [id number] 15:30:00 15:30:00 t Casar [employer] s - Drive [facility] Medicine l Medicine Outpati ent Clinics 2020-03-05 2020-03-05 [facility] [id number] 10:30:00 10:30:[address] [facility] Family Medicine Medicine Outpati ent Clinics 2019-04-04 2019-04-06 Phone nullFlavo MNA [id number] [facility] 17:21:53 04:59:59 Message r Neurosurger 05 l y [facility] 2018-12-21 2018-12-23 Phone nullFlavo MNA [id number] [facility] 15:05:32 04:59:59 Message r Neurosurger 04 l y [facility] 2018-12-08 2018-12-10 Phone nullFlavo MNA [id number] [facility] 18:27:20 04:59:59 Message r Neurosurger 03 l y [facility] 2018-12-07 2018-12-08 Outpatient nullFlavo MEA [id number] [facility] 16:15:00 04:59:59 r Neurosurger 01 l y [facility] 2018-12-07 2018-12-08 Outpt Diag nullFlavo [facility] [id number] Memoria 15:09:00 04:59:00 Services r Outpatient 01 l Imaging [facility] 2018-10-31 2018-11-02 Phone nullFlavo MNA [id number] [facility] 17:52:00 04:59:59 Message r Neurosurger 02 l y [facility] 2018-10-27 2018-10-29 Phone nullFlavo MNA [id number] [facility] 14:49:00 04:59:59 Message r Neurosurger 01 l y [facility] 2018-10-26 2018-10-27 Outpatient nullFlavo MEA [id number] [facility] 17:15:00 04:59:59 r Neurosurger 00 l y [facility] 2018-10-24 2018-10-25 Outpt Diag nullFlavo [facility] [id number] Memoria 13:26:00 04:59:00 Services r Outpatient 00 l Imaging [facility] 2018-10-17 2018-10-19 Phone nullFlavo MNA [id number] [facility] 15:08:00 04:59:59 Message r Neurosurger 00 l y [facility] 2018-10-08 2018-10-11 Inpatient nullFlavo [facility] [id number] [facility] 14:37:00 21:18:00 [facility] Results Test Description Test Time Test Comments [...] code = MCH) 29.6 pg 27.0-31.0 [facility] EoyquqrTYPNKRKBTS9318-33-98 06:11:0038.3[facility]OLOG[facility] 2018-10-11 06:11:004.30[facility] CyuyqvjRENSSZLEHS0081-89-14 06:11:0089.1[facility] XsfjfcfVKXAHLHXUI7257-58-40 06:11:0012.7[facility] KlpddnyCVCDMZNAIV8338-68-71 06:11:002.9[facility] DzemjedQEXIRWZAEO3275-22-19 06:11:0028.7[facility] OZRUDLUTVJ5677-73-82 06:11:009.5[facility] HfubgrtYSPOHIPAVY4643-50-43 06:11:00 58.7[facility] CuemyplOZCBGXQBQG0961-55-46 06:11:002.6[facility] HermannHEMATOLOGY 2018-10-11 06:11:000.3[facility] YortbgfDNCQAISVVU0759-42-96 06:11:000.2[facility] HmidzxqDVBHOOWBMC5065-53-65 06:11:005.3[facility] KcgmovbWHTHMIXEIC4596-45-33 06:11:000.9[facility] XffqgvhCSOZRRIITR1990-74-53 06:11:000.9[facility] HermannCHEM ADLZD6475-21-36 06:11:0073[facility] HermannCHEM DQLXM5898-14-37 06:11:0074 [facility] HermannCHEM IYVOK8906-31-35 06:11:000.93[facility] HermannCHEM PANEL 2018-10-11 06:11:11427Ftubdsri HermannCHEM XYQEO4184-88-37 06:11:0018[facility] HermannCHEM IQJKU2101-02-40 06:11:008.9[facility] HermannCHEM GBQIZ4931-42-63 06:11:003.9[facility] HermannCHEM YPESL4832-81-80 06:11:07239Dmgjivqk HermannCHEM JBULD0671-67-96 06:11:0026[facility] HermannCHEM GVXND0857-67-49 06:11:0011.9 [facility] ZvvnxldCKQNYIMHDS2964-53-06 06:11:009.0[facility] HermannHEMATOLOGY 2018-10-11 06:11:13553Ymhamffx CbprnnsIVBKSQFNVS4831-55-86 06:11:008.7[facility] SixdcakHNZULDBPXA9771-48-41 06:11:0013.6[facility] ZdtpsusXMVNRGCDYI2885-51-78 06:11:0033.2[facility] KrdkzghGFFNMMOFJV1092-10-35 06:11:00 Test Item Value Reference Range Interpretation Comments MCH (test code = MCH) 29.6 pg 27.0-31.0 [facility] RkjdugsUOCQWQHCDE2561-01-52 06:11:0038.3[facility] HermannHEMATOLOGY 2018-10-11 06:11:004.30[facility] SvmuuirVVSKIJVEVK3998-97-77 06:11:0089.1[facility] RovnvyjRCYGZNVLAE4615-13-00 06:11:0012.7[facility] WpgtsxgQXUWYCAZEH9747-17-18 06:11:002.9[facility] RwlejleUWAFFMPUBE6042-10-47 06:11:0028.7[facility] NYIQOWIRTR9467-92-43 06:11:009.5[facility] LzzcncnGZRJTDERRA2669-80-28 06:11:00 58.7[facility] OrtqlxnXJAFRXZLKO1080-23-78 06:11:002.6[facility] HermannHEMATOLOGY 2018-10-11 06:11:000.3[facility] DxjdlyjKJGTWLMDTW5747-83-54 06:11:000.2[facility] OcmcxwsMEZMRUTBOK6450-78-10 06:11:005.3[facility] HermannCHEM QQTCP5863-53-61 06:24:002.0[facility] HermannCHEM EMAFA2282-51-40 06:24:0068[facility] HermannCHEM HGXUR9630-78-50 06:24:003.9[facility] HermannCHEM GVXOU3485-28-50 06:24:19234 [facility]annCHEM EMNGR9656-86-57 06:24:91331Whqzbsjn HermannCHEM PANEL 2018-10-10 06:24:001.00[facility] HermannCHEM EETZZ2479-72-40 06:24:0090[facility] HermannCHEM WMKDI7482-14-74 06:24:0021[facility] HermannCHEM GKNVO3500-87-91 06:24:0028[facility] HermannCHEM PWTGZ7104-72-94 06:24:008.6[facility] HermannCHEM TOTEB7494-21-32 06:24:007.9[facility] HermannCHEM CDWGX3044-45-02 06:24:003.9 [facility] CmzpegmZVFWOLMPMV6788-08-81 06:24:000.1[facility] HermannHEMATOLOGY 2018-10-10 06:24:000.2[facility] GwgaqlbOMSWFHDEVZ1942-68-77 06:24:002.0[facility] BzdsnzzILEALGZNXV5689-19-95 06:24:002.1[facility] KtgfciaJUOEHMGWSX9514-13-78 06:24:000.8[facility] RkofbbbWSGLSDCUBE2211-70-13 06:24:000.8[facility] NMIBAPKBSZ0758-73-59 06:24:005.4[facility] UwycmanVNATXWZLGL7660-08-72 06:24:00 24.5[facility] QuulmwjCGMTORPCMR1151-34-79 06:24:0063.8[facility] HermannHEMATOLOGY 2018-10-10 06:24:008.9[facility] LvqlrmpIWXUTTICLN3792-08-49 06:24:08391Lpciadcx DgljatcCWFJDMNQHE2835-53-72 06:24:008.2[facility] UnqkkrhCHGLHHJJHS6031-33-84 06:24:0012.3[facility] JztcvurJUZUSIKIUF6323-10-24 06:24:004.13[facility] RKYAJUYZCT4867-02-16 06:24:008.4[facility] RkwkftnWGIUBLFJTV8396-99-66 06:24:00 88.9[facility] SguusgkVFKJPUBBYJ5669-74-46 06:24:00 Test Item Value Reference Range Interpretation Comments MCH (test code = MCH) 29.9 pg 27.0-31.0 [facility] PjokupsCMHNCFRAWR0675-79-89 06:24:0036.7[facility] HermannHEMATOLOGY 2018-10-10 06:24:0013.6[facility] VjwzwloRMTWSREHYI1348-97-27 06:24:0033.6[facility] HermannPARATHYROID UWXJJCX3623-89-91 06:24:001.14[facility] HermannPARATHYROID PUBVPZD6584-14-74 06:24:001.15[facility] HermannCHEM PVZDN0324-12-21 06:24:002.0 [facility] HermannCHEM KQYUS2308-18-26 06:24:0068[facility] HermannCHEM PANEL 2018-10-10 06:24:003.9[facility] HermannCHEM WSIRP8129-03-00 06:24:35927Yhdroygp HermannCHEM OWXWY8635-66-89 06:24:40788Qtfkeeqv HermannCHEM OSGCT7511-71-08 06:24:001.00[facility] HermannCHEM EBPPO8888-85-42 06:24:0090[facility] HermannCHEM LIBEQ9611-37-51 06:24:0021[facility] HermannCHEM DHKLM1264-79-34 06:24:0028 [facility] HermannCHEM UHIQC9515-62-57 06:24:008.6[facility] HermannCHEM PANEL 2018-10-10 06:24:007.9[facility] HermannCHEM LXINZ0731-24-28 06:24:003.9[facility] QpinuloPULLOPNZRH2310-85-25 06:24:000.1[facility] TgkomwpIYMRDFINOD7738-95-20 06:24:000.2[facility] ZkfairiDOMWPQQXSM1137-43-68 06:24:002.0[facility] SMRVAXCUQS3328-49-05 06:24:002.1[facility] OovkdajMQBNGTROQP5365-84-27 06:24:000.8 [facility] RcevaqjJDFFYNWIVP5116-92-66 06:24:000.8[facility] HermannHEMATOLOGY 2018-10-10 06:24:005.4[facility] BtguzeiEPVNKQBJVK6431-79-78 06:24:0024.5[facility] AdmdhexYHDJUXYNML7164-72-16 06:24:0063.8[facility] QnnommbHVRPXIZPJS0914-36-10 06:24:008.9[facility] DfzejlzDJNEDUGKZZ0129-23-79 06:24:24802Umiudnby Carlos SQTGIWSOOB1518-78-58 06:24:008.2[facility] QjsymchWNNHXAFCBZ6047-99-99 06:24:00 12.3[facility] PtamaqsLDNLMMJBNX3987-81-95 06:24:004.13[facility] HermannHEMATOLOGY 2018-10-10 06:24:008.4[facility] WkvqivtUEOKTAVCYC8517-87-02 06:24:0088.9[facility] KtgszrhIGEMZVTLCJ8187-00-89 06:24:00 Test Item Value Reference Range Interpretation Comments MCH (test code = MCH) 29.9 pg 27.0-31.0 [facility] VthmhtuPLVLVTGBOQ9258-25-08 06:24:0036.7[facility] HermannHEMATOLOGY 2018-10-10 06:24:0013.6[facility] ZxwubceVEGDWUWVHX7666-76-01 06:24:0033.6[facility] HermannPARATHYROID AFJMLSL3519-93-17 06:24:001.14[facility] HermannPARATHYROID NWTVKST6654-42-85 06:24:001.15[facility] HermannCHEM BYTXB1757-98-39 07:49:003.2 [facility] HermannCHEM UBMBC6108-19-65 07:49:001.9[facility] HermannCHEM PANEL 2018-10-09 07:49:0081[facility] HermannCHEM SBSAC8116-88-76 07:49:0010.9[facility] HermannCHEM BQNMP6517-77-86 07:49:008.5[facility] HermannCHEM COGVI8171-97-53 07:49:003.9[facility] HermannCHEM KUEJX5763-02-81 07:49:20058Fsilwjxj HermannCHEM ONQEP9407-48-21 07:49:46824Sqkeljnv HermannCHEM MTVUQ5021-87-95 07:49:000.96 [facility] HermannCHEM DVFRE7027-10-04 07:49:0017[facility] HermannCHEM PANEL 2018-10-09 07:49:56780Daxhxwii HermannCHEM UEWGM9487-71-29 07:49:0024[facility] BjnbsxyDLFLOBAOLV8961-16-26 07:49:0086.1[facility] VnupfuuIWMAVNKTGD4618-44-23 07:49:000.4[facility] PoygkgmAFKLPPLDSO3144-37-15 07:49:0012.7[facility] IBZZRNSBIN6457-22-56 07:49:006.3[facility] YesynxaCQGLKIQTIS8926-36-15 07:49:007.2 [facility] VssmidaFAWEYNKWYO6701-73-01 07:49:000.9[facility] HermannHEMATOLOGY 2018-10-09 07:49:000.1[facility] FrzeolqYCYFRSJHBR6306-03-67 07:49:001.1[facility] XrsqgjhKTLVWNJIWX5138-65-40 07:49:008.3[facility] QqaoupcUTRRYDMKXD4997-87-24 07:49:0033.3[facility] YfapfjfXJXUEHIPCN3281-99-80 07:49:0013.5[facility] XSALNUKTSB9118-74-89 07:49:29903Wepuibgh CpczdicMDGLLMYYML6929-69-62 07:49:00 12.8[facility] IuxniqgMEIULMCUXK4083-11-26 07:49:0038.4[facility] HermannHEMATOLOGY 2018-10-09 07:49:0088.1[facility] UrklxbhTHZEJGPXBA6294-34-61 07:49:00 Test Item Value Reference Range Interpretation Comments MCH (test code = MCH) 29.4 pg 27.0-31.0 [facility] PnofkzaYGWROBAKAA2981-29-07 07:49:0014.7[facility] HermannHEMATOLOGY 2018-10-09 07:49:004.36[facility] HermannPARATHYROID JVAQGYI3239-94-52 07:49:00 1.15[facility] HermannPARATHYROID PBGXSBL4378-70-83 07:49:001.16[facility] CHEM YJNRT6522-70-16 07:49:003.2[facility] HermannCHEM NECLQ6114-87-81 07:49:001.9 [facility] HermannCHEM WIKJY9862-15-61 07:49:0081[facility] HermannCHEM PANEL 2018-10-09 07:49:0010.9[facility] HermannCHEM JNUSF9228-24-14 07:49:008.5[facility] HermannCHEM VHKIV7970-87-30 07:49:003.9[facility] HermannCHEM DLXRK9871-88-99 07:49:01019Trubpxyf HermannCHEM ERENC4802-54-75 07:49:76647Fgrjhfhj HermannCHEM PPGCN2082-26-01 07:49:000.96[facility] HermannCHEM DQZOR8442-32-20 07:49:0017 [facility] HermannCHEM KXWQG6922-52-66 07:49:39573Svlqimfr HermannCHEM PANEL 2018-10-09 07:49:0024[facility] FeuowzfYWLGORTOOD0251-22-38 07:49:0086.1[facility] YnqzhngWQGTSWUWPX0823-82-25 07:49:000.4[facility] MsukqijURVBFOXJWT6845-38-58 07:49:0012.7[facility] SxkdfnkDHVCJKVNGL0412-51-40 07:49:006.3[facility] AWKDHTOYEE1828-72-16 07:49:007.2[facility] DofrinuYZNKCWVHXF7412-18-56 07:49:000.9 [facility] BsrxxddDDXEYBPSBA7308-50-31 07:49:000.1[facility]annHEMATOLOGY 2018-10-09 07:49:001.1[facility] XxrzeivOUOPTBTVIW6382-95-92 07:49:008.3[facility] RftvwmrVPSWCWFCZM4083-69-58 07:49:0033.3[facility] DqwwvsjOPSUFTAXAW5031-70-51 07:49:0013.5[facility] KcxpwyjJUSAEZFPAW4623-22-08 07:49:75129Hcygxdcb Carlos OAHZOZHGCY9803-75-10 07:49:0012.8[facility] CduwfmwBEZRQRIWOH3321-89-70 07:49:00 38.4[facility] FvkudwkXKAXZDRQLZ4755-13-69 07:49:0088.1[facility] HermannHEMATOLOGY 2018-10-09 07:49:00 Test Item Value Reference Range Interpretation Comments MCH (test code = MCH) 29.4 pg 27.0-31.0 [facility] BrfqvgnOSJHFUQSJY7787-92-74 07:49:0014.7[facility] HermannHEMATOLOGY 2018-10-09 07:49:004.36[facility] HermannPARATHYROID XIKJTWE5684-44-85 07:49:00 1.15[facility] HermannPARATHYROID XDUGCBZ4750-65-84 07:49:001.16[facility] CARDIAC NUUDEKP6195-67-14 18:27:00<0.02[facility] HermannCARDIAC ENZYMES 2018-10-08 18:27:00<0.02[facility]annURINE AND BMIZQ8074-24-25 15:59:00 Negative *NA*(10/08/18 9:59 AM)[facility] TJXLO6239-80-38 15:59:00 Negative (10/08/18 9:59 AM)[facility] FNXCM4892-30-40 15:59:00 Negative *NA*(10/08/18 9:59 AM)[facility] NVFJQ3310-24-28 15:59:00 Test Item Value Reference Range Interpretation Comments UA Spec Grav (test code = UA Spec 1.010 1 Grav) [facility] YGBDM4024-42-02 15:59:00 Test Item Value Reference Range Interpretation Comments UA pH (test code = UA pH) 6.0 1 5.0-8.0 [facility] HPJJY6136-97-86 15:59:00Yellow *NA*(10/08/18 9:59 AM) [facility] MVGHU0373-46-48 15:59:00Clear (10/08/18 9:59 AM)[facility] ATWSW6606-97-56 15:59:00Negative (10/08/18 9:59 AM)[facility] HCMWH2346-43-71 15:59:00Negative (10/08/18 9:59 AM)[facility] NTJSP3445-29-24 15:59:00Small *ABN*(10/08/18 9:59 AM)[facility] XVOWF3798-69-93 15:59:00Negative (10/08/18 9:59 AM)[facility] ZSZJO5610-54-42 15:59:000.2[facility] STOOL 2018-10-08 15:59:00Negative *NA*(10/08/18 9:59 AM)[facility] STOOL 2018-10-08 15:59:00Negative (10/08/18 9:59 AM)[facility] STOOL 2018-10-08 15:59:00Negative *NA*(10/08/18 9:59 AM)[facility] STOOL 2018-10-08 15:59:00 Test Item Value Reference Range Interpretation Comments UA Spec Grav (test code = UA Spec 1.010 1 Grav) [facility] XXZJJ6316-06-29 15:59:00 Test Item Value Reference Range Interpretation Comments UA pH (test code = UA pH) 6.0 1 5.0-8.0 [facility] VKRXR1767-12-76 15:59:00Yellow *NA*(10/08/18 9:59 AM) [facility] HAPRW0686-90-91 15:59:00Clear (10/08/18 9:59 AM)[facility] XOAIH4036-17-35 15:59:00Negative (10/08/18 9:59 AM)[facility] LTTHC7159-32-54 15:59:00Negative (10/08/18 9:59 AM)[facility] VEHVP8712-78-58 15:59:00Small *ABN*(10/08/18 9:59 AM)[facility] TZOTF7730-80-05 15:59:00Negative (10/08/18 9:59 AM)[facility] HZWJD7128-03-29 15:59:000.2[facility] CbxqtpyKHUSBAAGDB2591-37-96 15:21:00 Test Item Value Reference Range Interpretation Comments PTT (test code = PTT) 36.5 s 22.9-35.8 [facility]GxdakohPPSCVXJPOW9339-68-19 15:21:00 Test Item Value Reference Range Interpretation Comments PT (test code = PT) 13.3 s 12.0-14.7 [facility] HealthLbkmlwgZEIDTNZFDX4097-26-06 15:21:00 Test Item Value Reference Range Interpretation Comments INR (test code = INR) 1.03 1 0.85-1.17 [facility] HealthEkpytmwKAUQLOVFBV2233-16-19 15:21:00 Test Item Value Reference Range Interpretation Comments Split Point Rapid (test code = Split 0.6 min Point Rapid) [facility] HealthKvsbpxnHQAZDMSTJC2384-32-53 15:21:00 Test Item Value Reference Range Interpretation Comments R-time Rapid (test code = R-time 0.7 min 0.4-0.7 Rapid) [facility] HealthCgbtxkyDSZDCTCSZY2475-23-40 15:21:00 Test Item Value Reference Range Interpretation Comments ACT (TEG) Rapid (test code = ACT (TEG) 113 s 86-118 Rapid) [facility]nRMXVXMHPSD3825-90-29 15:21:0015.0[facility] 2018-10[facility]08 15:21:00 Test Item Value Reference Range Interpretation Comments K-time Rapid (test code = K-time 0.8 min 0.6-2.3 Rapid) [facility]NlwgujjWOLFUXMXOT5057-09-59 15:21:000.3[facility] 2018-10-08 15:21:00 Test Item Value Reference Range Interpretation Comments Angle Rapid (test code = Angle 79 degrees 64-80 Rapid) [facility]SydapzfWXPHGCKODG0066-35-33 15:21:00 Test Item Value Reference Range Interpretation Comments Max Amplitude Rapid (test code = Max 75 mm 52-71 Amplitude Rapid) [facility] CenterOydvlufYNRSQHJDST5710-92-79 15:21:00 Test Item Value Reference Range Interpretation Comments PTT (test code = PTT) 36.5 s 22.9-35.8 [facility] CenterJthkuazMKFZDNWAPD1361-62-44 15:21:00 Test Item Value Reference Range Interpretation Comments PT (test code = PT) 13.3 s 12.0-14.7 [facility] CenterLgxjetpTTORAFXPWJ0663-78-28 15:21:00 Test Item Value Reference Range Interpretation Comments INR (test code = INR) 1.03 1 0.85-1.17 [facility]UmzhynmYFJYWBOEWG2183-33-06 15:21:00 Test Item Value Reference Range Interpretation Comments Split Point Rapid (test code = Split 0.6 min Point Rapid) [facility] CenterMazznluONKQJUTMZI3929-48-51 15:21:00 Test Item Value Reference Range Interpretation Comments R-time Rapid (test code = R-time 0.7 min 0.4-0.7 Rapid) [facility] CenterIaomlepWJLAVEFYNG9615-20-41 15:21:00 Test Item Value Reference Range Interpretation Comments ACT (TEG) Rapid (test code = ACT (TEG) 113 s 86-118 Rapid) [facility] CenterRmeocozERZKEBTOZK4858-69-15 15:21:0015.0[facility] 2018-10-08 15:21:00 Test Item Value Reference Range Interpretation Comments K-time Rapid (test code = K-time 0.8 min 0.6-2.3 Rapid) [facility] CenterNvtjnaqSEMHOWDOFY7195-92-75 15:[facility].3[facility] 2018-[facility]08 15:21:00 Test Item Value Reference Range Interpretation Comments Angle Rapid (test code = Angle 79 degrees 64-80 Rapid) [facility] TnrdlqrYYNKHSQVOB6740-94-87 15:21:00 Test Item Value Reference Range Interpretation Comments Max Amplitude Rapid (test code = Max 75 mm 52-71 Amplitude Rapid) [facility] [id number] 15:20:00Negative (10/08/18 9:20 AM) [facility] [id number] 15:20:00Negative (10/08/18 9:20 AM) [facility]annCARDIAC QYWRCSF8338-69-76 15:18:00<0.02[facility]annCHEM [id number] 15:18:003.9[facility]annCHEM [id number] 15:18:001.9 [facility]annCHE[facility] [id number] 15:18:000.8[facility] 2018-10-08 15:18:000.1[facility] OnqlimxTALAPNNTWX6131-91-33 15:18:000.1[facility] AljffsoPYNUBIOZIR6632-40-77 15:18:001.8[facility]annCARDIAC OYUPOMQ3314-28-30 15:18:00<0.02[facility]annCHEM OZSWT3740-31-35 15:18:003.9[facility] CHEM ILFVU1043-06-93 15:18:001.9[facility]annCHEM NEWJE3334-60-67 15:18:000.8 [facility] OiivaveWRROWTEPQD1840-70-58 15:18:000.1[facility] 2018-10-08 15:18:000.1[facility] EwffblzPXVNFUKHNW3445-20-09 15:18:001.8[facility]
--- NOTE | 2021-08-03 11:44 | RAD REPORT ---
EXAM DESCRIPTION: RAD - Chest Pa And Lat (2 Views) - 08/03/2021 11:18 am CLINICAL HISTORY: Cough;Congestion COMPARISON: July 21October 2018 TECHNIQUE: Frontal and lateral views of the chest were obtained. FINDINGS: The lungs are clear. Interstitial pattern is similar to comparison. Lung volumes are low. There is lung base atelectasis present. Heart size is normal and central vasculature is within carmen l limits. No pneumothorax seen. Costophrenic angle blunting on the right on the frontal projection i s believed be due to overlying soft tissues. No measurable pleural effusion seen. No acute bony finding noted. No aortic abnormality. IMPRESSION: No acute cardiopulmonary process. No significant change from comparison.
--- NOTE | 2021-08-03 11:55 | ER ---
Nurse's Notes [facility] Name: Joanna Lim Age: 51 yrs Sex: Female : 1970 Arrival Date: 08/03/2021 Time: 08:52 Bed 11 Private MD: Parminder Velez Diagnosis: Cough Presentation: 08/03 09:23 Chief complaint: Patient states: she tested positive for COVID 07/20/21. Patient ap3 reports continued symptoms of cough and congestion. Coronavirus screen: Client reports previous positive COVID test result. Date of collection: July 20, 2021. Ebola Screen: No symptoms or risks identified at this time. Initial Sepsis Screen: Does the patient meet any 2 criteria? No. Patient's initial sepsis screen is negative. Does the patient have a suspected source of infection? No. Patient's initial sepsis screen is negative. Risk Assessment: Do you want to hurt yourself or someone else? Patient reports no desire to harm self or others. Onset of symptoms was July 19, 2021. 09:23 Method Of Arrival: Ambulatory ap3 09:23 Acuity: JAYSHREE 4 ap3 Triage Assessment: : General: Appears in no apparent distress. Behavior is calm, cooperative. Pain: Denies ap3 pain. EENT: Reports nasal congestion. Neuro: Level of Consciousness is awake, alert, obeys commands, Oriented to person, place, time, situation, Appropriate for age. Respiratory: Airway is patent Respiratory effort is even, unlabored. 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 - Social history:: Smoking status: Patient denies any tobacco usage or history of. Patient uses alcohol, occasionally. Screenin:28 Abuse screen: Denies threats or abuse. Nutritional screening: No deficits noted. ap3 Tuberculosis screening: No symptoms or risk factors identified. Fall Risk None identified. Assessment: 10:19 Reassessment: No changes from previously documented assessment. Patient and/or family ll1 updated on plan of care and expected duration. Pain level reassessed. Patient is alert, oriented x 3, equal unlabored respirations, skin warm/dry/pink. 11:20 Reassessment: No changes from previously documented assessment. Patient and/or family ll1 updated on plan of care and expected duration. Pain level reassessed. Patient is alert, oriented x 3, equal unlabored respirations, skin warm/dry/pink. 12:07 Reassessment: No changes from previously documented assessment. Patient and/or family ll1 updated on plan of care and expected duration. Pain level reassessed. Patient is alert, oriented x 3, equal unlabored respirations, skin warm/dry/pink. Vital Signs: 09:23 BP 132 / 78; Pulse 66; Resp 17; Temp 98.1(TE); Pulse Ox 98% on R/A; Weight 94.35 kg; ap3 Height 5 ft. 8 in. (172.72 cm); 12:06 BP 145 / 79; Pulse 65; Resp 17; Pulse Ox 98% ; ll1 09:23 Body Mass Index 31.63 (94.35 kg, 172.72 cm) ap3 ED Course: 08:52 Patient arrived in ED. mr 08:53 Parminder Velez DO is Private Physician. mr 09:24 Triage completed. ap3 09:28 Arm band placed on right wrist. ap3 09:28 Patient has correct armband on for positive identification. Call light in reach. Pulse ap3 ox on. NIBP on. 10:13 Let[facility] No[facility]C [facility]. kb 10:13 Steven Meehan MD is Attending Physician. kb 10:13 Arm band placed on Patient placed in an exam room, on a stretcher. ll1 10:18 Alanis Chang, JULIENNE is Primary Nurse. ll1 11:18 Chest Pa And Lat (2 Views) XRAY In Process Unspecified. EDMS 12:07 No provider procedures requiring assistance completed. Patient did not have IV access ll1 during this emergency room visit. Administered Medications: No medications were administered Outcome: 11:54 Discharge ordered by . kb 12:07 Discharged to home ambulatory. ll1 12:07 Condition: stable 12:07 Discharge instructions given to patient, Instructed on discharge instructions, follow up and referral plans. Demonstrated understanding of instructions, follow-up care. 12:07 Patient left the ED. ll1 Signatures: Dispatcher [employer] EDLetitia Amador, DANTE MANRIQUEZ-Ramila Cormier Amanda RN RN ap3 Alanis Chang RN RN ll1
--- NOTE | 2021-08-03 11:55 | EDPHYS ---
Physician Documentation [facility] Name: Joanna Lim Age: 51 yrs Sex: Female : 1970 Arrival Date: 08/03/2021 Time: 08:52 Bed 11 Private MD: Agustin [facility] ED Physician Steven Meehan HPI: 08/03 11:10 This 51 yrs old Black Female presents to ER via Ambulatory with complaints of Sinus kb Congestion, Cough. 11:51 The patient or guardian reports cough, that is intermittent, described as mild. Onset: kb The symptoms/episode began/occurred 2 week(s) ago. Severity of symptoms: At their worst the symptoms were mild, in the emergency department the symptoms are unchanged. Modifying factors: The symptoms are alleviated by nothing, the symptoms are aggravated by nothing. Associated signs and symptoms: Pertinent positives: rhinorrhea, Pertinent negatives: chest pain, diarrhea, ear ache, fever, nausea, sore throat, vomiting. The patient has not experienced similar symptoms in the past. The patient has not recently seen a physician. Pt reports she tested positive for COVID on 07/20 and is still having cough and congestion. . 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 - Social history:: Smoking status: Patient denies any tobacco usage or history of. Patient uses alcohol, occasionally. ROS: 11:51 Constitutional: Negative for fever, chills, and weight loss. kb 11:51 ENT: Positive for rhinorrhea, sinus congestion. 11:51 Respiratory: Positive for cough, Negative for dyspnea on exertion, hemoptysis, orthopnea, pleurisy, shortness of breath, sputum production, wheezing. 11:51 All other systems are negative. Exam: 11:53 Constitutional: This is a well developed, well nourished patient who is awake, alert, kb and in no acute distress. Head/Face: Normocephalic, atraumatic. ENT: Moist Mucous membranes Cardiovascular: Regular rate and rhythm with a normal S1 and S2. No gallops, murmurs, or rubs. No pulse deficits. Respiratory: Respirations even and unlabored. No increased work of breathing. Talking in full sentences Skin: Warm, dry with normal turgor. Normal color. MS/ Extremity: Pulses equal, no cyanosis. Neurovascular intact. Full, normal range of motion. Neuro: Awake and alert, GCS 15, oriented to person, place, time, and situation. Moves all extremities. Normal gait. Psych: Awake, alert, with orientation to person, place and time. Behavior, mood, and affect are within normal limits. Vital Signs: 09:23 BP 132 / 78; Pulse 66; Resp 17; Temp 98.1(TE); Pulse Ox 98% on R/A; Weight 94.35 kg; ap3 Height 5 ft. 8 in. (172.72 cm); 12:06 BP 145 / 79; Pulse 65; Resp 17; Pulse Ox 98% ; ll1 09:23 Body Mass Index 31.63 (94.35 kg, 172.72 cm) ap3 MDM: 10:13 Patient medically screened. kb 11:52 Data reviewed: vital signs, nurses notes. Data interpreted: Pulse oximetry: on room air kb is 98 %. Interpretation: normal. Counseling: I had a detailed discussion with the patient and/or guardian regarding: the historical points, exam findings, and any diagnostic results supporting the discharge/admit diagnosis, radiology results, the need for outpatient follow up, a family practitioner, to return to the emergency department if symptoms worsen or persist or if there are any questions or concerns that arise at home. 08/03 09:58 Order name: Chest Pa And Lat (2 Views) XRAY; Complete Time: 11:46 kb Administered Medications: No medications were administered Disposition Summary: 08/03/21 11:54 Discharge Ordered Location: Home kb Condition: Stable kb Diagnosis - Cough kb Followup: kb - With: Emergency Department - When: As needed - Reason: Worsening of condition Followup: kb - With: Private Physician - When: 2 - 3 days - Reason: Recheck today's complaints, Continuance of care, Re-evaluation by your physician Discharge Instructions: - Discharge Summary Sheet kb - Viral Respiratory Infection, [id number] kb Forms: - Medication Reconciliation Form kb - Thank You Letter kb - Antibiotic Education kb - Prescription Opioid Use kb Addendum: 08/04/2021 12:50 Co-signature as Attending Physician, Steven Meehan MD I agree with the assessment and c mcgovern plan of care. Signatures: Dispatcher [employer] EDLetitia Amador, DEHAIRING MACHINE TENDER-C DEHAIRING MACHINE TENDER-Ckb Steven Meehan MD MD cha Prokisch, Amanda, RN RN ap3
[2021-08-03 12:20] VITALS: TEMP 98.1; O2SAT 98
[2021-08-03 12:26] VITALS: BP 145/79
== END 2021-08-03 12:07 | disposition home or self-care (01) ==
LOC: ER 08:49
DX: R05.9 Cough, unspecified (principal); Z86.16 Personal history of COVID-19
CPT/HCPCS: 71046; 99283

== ENCOUNTER 2021-09-16 17:26 | Emergency (ER) | payer OTHER ==
--- OUTSIDE RECORDS SUMMARY | 2021-09-16 17:32 | XMS REPORT | Continuity of Care Document ---
:1970 Author Organization [facility] t Address [address] [place] [address] Support Name Relationship Address Phone Carina Unavailable [address] [phone] [place] [address] Dubose Unavailable [address] [phone] [place] [address] [address] Other [address] [place] [address] L Ruiz Relative [address] [place] [address] N Carina Child [address] [place] [address] Brittnee DUBOSE [address] [place] [address] Savi RUIZ Relative [address] [place] [address] Care Team Providers Name Role Phone Norma VELEZ Primary Care Physician Unavailable Norma Velez Attending Clinician Unavailable [place] Attending Clinician Unavailable Jaycee DNP, GAS CUTTING MACHINE OPERATOR, CNP-BC, N Attending Clinician Doctor Unassigned, Name Attending Clinician Unavailable Payers Payer Name Policy Type Policy Number Effective Date Expiration Date S [place] [employer] [id number] 2016 HEALTH 00:00:00 Problems Condition Condition Condition Status Onset Resolution Last Treating Co mments Source Name Details Category Date Date Treatment Clinician Date CHRONIC Diagnosis Active 2019-02-01 Me moria SDH 3- 10:05:00 l CHRONIC 00:00: Carlos SDH 00 Active 10/08/2018 [facility] NON Diagnosis Active 2018-10-08 Mem oria SUBACUTE 3 10:22:00 l TRAUMATIC NON 00:00: [place] SUBDURAL SUBACUTE 00 HEMATOMA TRAUMATIC SUBDURAL HEMATOMA Active 10/08/2018 [facility] Status Status Disease Active Univers post post 2 ity of vaginal vaginal 00:00: [place] hysterecto hysterecto 00 Me dical my my Branch Post-opera Post-opera Disease Active U nivers tive state tive state 2- it y of 00:00: [place] 00 Medical Branch Uterine Uterine Disease Active [facility] polyp polyp 1-05 ity of 00:00: [place] 00 Medical Branch Goiter Goiter Disease Active 2014-08 Univers 0-07 ity of 00:00: [place] 00 Medical Branch Simple Problem Active 2019-04-08 Memor ia obesity 00:24:36 l (disorder) Simple Herm ree obesity (disorder) Active Problem 04/08/2019 [facility] OPID [place], OPID [place] NONTRAUMAT Diagnosis Active 2019-02-01 Memoria IC CHRONIC 10:05:00 l SUBDURAL [place] HEMORRHAGE NONTRAUMAT IC CHRONIC SUBDURAL HEMORRHAGE Active [facility] Allergies, Adverse Reactions, Alerts Allergy Allergy Status Severity Reaction(s) Onset Inactive Treating Comm ents Source Name Type Date Date Clinician Penicill Propensi Active Other - See 2014-08 Childhoo d [facility] ins ty to comments 0-07 allergy ity of adverse 00:00: [place] reaction 00 Medical s Branch PENICILL Drug Active Other-Cmnt 2014-08 Univ ers INS Class 0-07 ity of 00:00: [place] 00 Medical Branch penicill penicill Active Memori a in in l [place] Penicill Adverse Active hives [facility] Social History Social Habit Start Date Stop Date Quantity Comments Source Exposure to Not sure [facility] SARS-CoV-2 (event) Medica l Branch History SDOH [facility] [place] Alcohol Frequency Medical Branch History SDOH [facility] [place] Alcohol Std Drinks Medica l Branch History SDCT [facility] [place] Alcohol Binge Medical [facility] Alcohol intake 2021-08-21 2021-08-21 [facility] 00:[facility] 00:00:00 Medical Branch Alcohol Comment 2021-07-24 2021-07-24 occasional [facility] 00:00:00 00:00:00 Medical Branch Sex Ass[birth year] [facility] [place] 00:00:00 00:00:00 Medical Branch Smoking Status Start Date Stop Date Source Never smoker [facility] Medical Branch Medications Ordered Filled Start Stop Current Ordering Indication Dosage Frequency Signature Comments Components Source Medication Medication Date Date Medication? Clinician (SIG) Name Name kelly 2020-08 Yes [id number] 10mg Take 1 Univers (VESICARE) 2-17 tablet by ity of 10 mg 00:00: mouth at [place] tablet 00 bedtime. Medical Branch NAPROXEN 2020-08 Yes 1{tbl} Take 1 Unive rs ORAL 0-29 tablet by ity of 10:13: mouth. [address] DULoxetine 2020-08 Yes 20mg Take 20 mg U nivers 20 mg 0-29 by mouth ity of capsule 10:13: daily. [address] traMADoL 2019-08 Yes [id number] 50mg Take 1 Univers (ULTRAM) 50 2-02 tablet by ity of mg tablet 00:00: mouth [place] 00 every 6 Medical (six) Branch hours as needed for Pain (scale 7-10). Indication s: acute pain methocarbam 2019-08 Yes [id number] 750mg Take 1 Univers oL 750 mg 2-02 tablet by ity o f tablet 00:00: mouth [place] 00 every 6 Medical (six) Branch hours as needed (MUSCLE SPASM). cetirizine Yes [id number] 10mg Take 1 Univers 10 mg 3-16 tablet by ity of tablet 00:00: mouth [place] 00 daily. Medical Branch fluticasone Yes [id number] 2{spray Use 2 Univers propionate 3-16 } [...] / 15:24: Wheezing, [place] Ipratropium 00 0 [place] Refill(s) 0.167 MG/ML Inhalant Solution Acetaminoph Yes [...] / 15:24: Wheezing, [place] Ipratropium 00 0 [place] Refill(s) 0.167 MG/ML Inhalant Solution Acetaminoph Yes [...] 19:56: 400mg/day. [place] 00 (Same As: Ultram) Tramadol No Notes: Not Mem oria 3-05 to exceed l 19:56: 400mg/day. [place] 00 (Same As: Ultram) heparin No Notes: Memoria 3-05 porcine l 05:55: heparin [place] 00 heparin No Notes: Memoria 3-05 porcine l 05:55: heparin [place] 00 remove No 1 patch, Memoria patch 3-05 Route: l 03:00: TOP, [place] 00 Bedtime, Drug form: ERFILM, Start date: 10/09/18 21:00:00 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, Duration: 30 day, Stop date: 11/07/18 21:00:00 CDT remove 2019-0 No 1 patch, Memoria patch 3-05 Route: l 03:00: TOP, [place] 00 Bedtime, Drug form: ERFILM, Start date: 10/09/18 21:00:00 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, Duration: 30 day, Stop date: 11/07/18 21:00:00 CDT Robaxin No Notes: Memoria 3-04 (Same l 19:00: as:Robaxin [place] ) Robaxin No Notes: Memoria 3-04 (Same l 19:00: as:Robaxin [place] ) Lyrica No Notes: Memoria 3-04 (Same as: l 15:18: Lyrica) [place] Lyrica No Notes: Memoria 3-04 (Same as: l 15:18: Lyrica) [place] Miralax No Notes: Memoria 3-04 Dissolve l 15:17: in 8 oz of [place] 00 water or juice. (Same as: Miralax) Miralax No Notes: Memoria 3-04 Dissolve l 15:17: in 8 oz of [place] 00 water or juice. (Same as: Miralax) Lidocaine No 1 patch, Edison anny 0.05 MG/MG 3-04 Route: l Transdermal 15:00: TOP, Narinder n Patch 00 Daily, Drug form: FILM, Start date: 10/09/18 9:00:00 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, Duration: 30 day, Stop date: 11/07/18 9:00:00 CDT Lidocaine 2018- No 1 patch, Edison anny 0.05 MG/MG 3-04 Route: l Transdermal 15:00: TOP, Narinder n Patch 00 Daily, Drug form: FILM, Start date: 10/09/18 9:00:00 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, Duration: 30 day, Stop date: 11/07/18 9:00:00 CDT Tramadol 2018- No Notes: Not Mem oria 3-04 to exceed l 04:24: 400mg/day. [place] 00 (Same As: Ultram) Tramadol No Notes: Not Mem oria 3-04 to exceed l 04:24: 400mg/day. [place] 00 (Same As: Ultram) Keppra No Notes: Memoria 3-04 (Same l 03:00: as:Keppra) Saline No Notes: Memoria Flush 0.9% 3-04 (Same as: l 03:00: BD [place] 00 Posiflush) Levetiracet No Notes: Memoria am 3-04 MEDICATION l 03:00: WASTE Product Size: 500 mg Product Wasted: ___ mg sennosides, No Notes: Edison anny SKILLED NURSING 3-04 (Same as: l 03:00: Senokot) Docusate No 100 mg, 1 Edison anny 3-04 cap, l 03:00: Route: PO, [place] 00 Drug form: CAP, Q12H, Dosing Weight 95.455, kg, Start date: 10/08/18 21:00:00 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, Duration: 30 day, Stop date: 11/07/18 9:00:00 CDT Keppra No Notes: Memoria 3-04 (Same l 03:00: as:Keppra) Saline No Notes: Memoria Flush 0.9% 3-04 (Same as: l 03:00: BD Posiflush) Levetiracet No Notes: Memoria am 3-04 MEDICATION l 03:00: WASTE Product Size: 500 mg Product Wasted: ___ mg sennosides, No Notes: Edison anny SKILLED NURSING 3-04 (Same as: l 03:00: Senokot) Docusate No 100 mg, 1 Edison anny 3-04 cap, l 03:00: Route: PO, [place] 00 Drug form: CAP, Q12H, Dosing Weight 95.455, kg, Start date: 10/08/18 21:00:00 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, Duration: 30 day, Stop date: 11/07/18 9:00:00 CDT Vancomycin 2019-0 No 2000 mg: Me moria 3-04 infuse l 00:00: over 2.5 [place] 00 hours For adult patients only: Round [...] Drug form: SOLN, Start date: 10/08/18 17:00:00 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, Duration: 30 day, Stop date: 11/07/18 9:00:00 CDT Artificial 2019-0 No 2 drp, Memor ia Tears 10-08 Route: l 23:00: BOTH EYES, [place] 00 BID, Drug form: SOLN, Start date: 10/08/18 17:00:00 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, Duration: 30 day, Stop date: 11/07/18 9:00:00 CDT Vancomycin 2018-0 No 1 gm, Memori a 3- Route: IV, l 22:00: Q8H, Dosing Weight 95.455, kg, Start date: 10/08/18 16:00:00 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, Duration: 1 day, Stop date: 10/09/18 8:00:00 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, ABX Indication : Surgical Prophylaxi s Vancomycin 2018-0 No 1 gm, Memori a 3-03 Route: IV, l 22:00: Q8H, Dosing Weight 95.455, kg, Start date: 10/08/18 16:00:00 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, Duration: 1 day, Stop date: 10/09/18 8:00:00 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, ABX Indication : Surgical Prophylaxi s Glucagon 2019-0 No 1 mg, Memoria 3-03 Route: IM, l 20:19: Drug form: [place] 00 PDR/INJ, PRN, Dosing Weight 95.455, kg, PRN Blood Glucose Results, Start date: 10/08/18 14:19:00 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, Duration: 30 day, Stop date: 11/07/18 15:18:00 CDT Dextrose 2019-0 No 25 gm, 50 Edison anny 50% Syringe 3-03 mL, Route: l 20:19: IVP, Drug Form: INJ, Dosing Weight 95.455, kg, PRN, PRN Blood Glucose Results, Start date: 10/08/18 14:19:00 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, Duration: 30 day, Stop date: 11/07/18 15:18:00 [...] Blood Glucose Results, Start date: 10/08/18 14:19:00 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, Duration: 30 day, Stop date: 11/07/18 15:18:00 CDT Dextrose 2019-0 No 25 gm, 50 Edison anny 50% Syringe 3-03 mL, Route: l 20:19: IVP, Drug Form: INJ, Dosing Weight 95.455, kg, PRN, PRN Blood Glucose Results, Start date: 10/08/18 14:19:00 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, Duration: 30 day, Stop date: 11/07/18 15:18:00 CDT Insulin 2019-0 No 60 Memoria regular 3-03 units) l 20:19: WASTE: F/P [place] 00 - Black; E - Municipal Trash Bin Stable for 28 days at room temperatur e Expires in days from ____Date Potassium 2018-0 No Notes: Memori a Chloride - (Same as: l 20:18: KCL) Infuse over 2 hours. Calcium 2019-0 No Notes: Memoria Gluconate - WASTE: F/P l 20:18: - Sink; E [place] - Municipal Trash Bin Magnesium No Notes: Memori a Oxide 3-03 (Same as: l 20:18: Mag-Ox [place] 00 400) Magnesium oxide [id number] g elemental magnesium Dose=____m g magnesium oxide (___mg elemental magnesium) Calcium No Notes: Memoria Carbonate 3-03 (Same As: l 500 MG 20:18: Tums) [place] Chewable 00 Calcium Tablet Carbonate 500 mg = 200 mg elemental calcium Dose = mg calcium carbonate ( mg elemental calcium) potassium No Notes: Memori a phosphate 3-03 (Same as: l 20:18: K [place] Phosphate. ) Do not infuse phosphorou s concurrent ly in the same line as TPN or IVF that contains calcium. For double lumen central lines, phosphorou s may be infused in a separate lumen from TPN. 1 mMol phoshate has 1.47 mEq potassium Infuse over 4 hours potassium No Notes: Memori a phosphate-s 3-03 (Same as: l odium 20:18: Phos-NaK) [place] phosphate 00 Each 1.5 250 mg-280 gm [...] WASTE: F/P l 20:18: - Sink; E [place] - Municipal Trash Bin Magnesium No Notes: Memori a Oxide 3-03 (Same as: l 20:18: Mag-Ox [place] 00 400) Magnesium oxide [id number] g elemental magnesium Dose=____m g magnesium oxide (___mg elemental magnesium) Calcium No Notes: Memoria Carbonate 3-03 (Same As: l 500 MG 20:18: Tums) [place] Chewable 00 Calcium Tablet Carbonate 500 mg = 200 mg elemental calcium Dose = mg calcium carbonate ( mg elemental calcium) potassium No Notes: Memori a phosphate 3-03 (Same as: l 20:18: K [place] 00 Phosphate. ) Do not infuse phosphorou s concurrent ly in the same line as TPN or IVF that contains calcium. For double lumen central lines, phosphorou s may be infused in a separate lumen from TPN. 1 mMol phoshate has 1.47 mEq potassium Infuse over 4 hours potassium No Notes: Memori a phosphate-s -03 (Same as: l odium 20:18: Phos-NaK) [place] phosphate 00 Each 1.5 250 mg-280 gm pkt has mg-160 mg 250mg oral powder phosphorou for s. Mix reconstitut w/2.5oz ion water and stir. Magnesium No Notes: Memori a Sulfate - WASTE: F/P l 20:18: - Sink; E [place] 00 - Municipal Trash Bin sodium No [...] 5 minutes Labetalol No 10 mg, 2 Ediosn anny 3-03 mL, Route: l 20:13: IVP, Drug form: INJ, Q4H, Dosing Weight 95.455, kg, PRN Hypertensi on, Start date: 10/08/18 14:13:00 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, Duration: 30 day, Stop date: 11/07/18 14:12:00 CDT Hydralazine No Notes: Edison anny 3-03 (Same as: l 20:13: Apresoline [place] 00 ) Push over 5 minutes Labetalol 2019-0 No 10 mg, 2 Edison anny 3-03 mL, Route: l 20:13: IVP, Drug [place] 00 form: INJ, Q4H, Dosing Weight 95.455, kg, PRN Hypertensi on, Start date: 10/08/18 14:13:00 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, Duration: 30 day, Stop date: 11/07/18 14:12:00 CDT sugammadex 2019-0 No Route: IV, M emoria (ANES) 10-08 Drug form: l 18:30: SOLN, [place] 00 ONCE, Stop date: 10/08/18 12:30:00 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 sugammadex 2019-0 No Route: IV, M emoria (ANES) 10-08 Drug form: l 18:30: SOLN, [place] 00 ONCE, Stop date: 10/08/18 12:30:00 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 Hydralazine 2019-0 No 10 mg, Edison anny 10-08 Route: l 18:18: IVP, [place] 00 Q20Min, Dosing Weight 95.455, kg, PRN Elevated BP, Start date: 10/08/18 12:18:00 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, Duration: 2 doses or times, Stop date: Limited # of times Labetalol 2019-0 No 10 mg, 2 Edison anny 3-03 mL, Route: l 18:18: IVP, Drug form: INJ, Q5Min, Dosing Weight 95.455, kg, PRN Elevated BP, Start date: 10/08/18 12:18:00 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, Duration: 5 doses or times, Stop date: 10/09/18 0:00:00 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 Acetaminoph 2019-0 No 1,000 mg, M emoria en 10-08 Route: PO, l 18:18: Drug form: [place] 00 TAB, ONCE, Dosing Weight 95.455, kg, PRN Pain Score 1-3, Start date: 10/08/18 12:18:00 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 Promethazin 2019-0 No 6.25 mg, Me moria e 10-08 Route: l 18:18: IVPB, [place] 00 ONCE, Dosing Weight 95.455, kg, PRN Nausea & Vomiting, Start date: 10/08/18 12:18:00 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 Ondansetron 2019-0 No 4 mg, Memor ia 3-03 Route: l 18:18: IVP, ONCE, Dosing Weight 95.455, kg, PRN Nausea & Vomiting, Start date: 10/08/18 12:18:00 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 Dexamethaso 2019-0 No 4 mg, Memor ia ne 3- Route: l 18:18: IVP, ONCE, [place] 00 Dosing Weight 95.455, kg, PRN Nausea & Vomiting, Start date: 10/08/18 12:18:00 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 Naloxone 2019-0 No 0.4 mg, Memori a 3-03 Route: l 18:18: IVP, [place] 00 Q2MIN, Dosing Weight 95.455, kg, PRN Narcotic Reversal, Start date: 10/08/18 12:18:00 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, Duration: 8 doses or times, Stop date: Limited # of times Flumazenil 2019-0 No 0.2 mg, Edison anny 3-03 Route: l 18:18: IVP, PRN, Dosing Weight 95.455, kg, PRN Benzodiaze pine Reversal, Initial dose, Start date: 10/08/18 12:18:00 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, Duration: 30 day, Stop date: 11/07/18 13:17:00 CDT Hydromorpho 2019-0 No 0.5 mg, Mem oria ne 3-03 Route: l 18:18: IVP, [place] 00 Q5Min, Dosing Weight 95.455, kg, PRN Pain Score 7-10, Start date: 10/08/18 12:18:00 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, Duration: 4 doses or times, Stop date: Limited # of times Hydralazine 2019-0 No 10 mg, Edison anny 3-03 Route: l 18:18: IVP, [place] 00 Q20Min, Dosing Weight 95.455, kg, PRN Elevated BP, Start date: 10/08/18 12:18:00 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, Duration: 2 doses or times, Stop date: Limited # of times Labetalol 2019-0 No 10 mg, 2 Edison anny 3-03 mL, Route: l 18:18: IVP, Drug [place] 00 form: INJ, Q5Min, Dosing Weight 95.455, kg, PRN Elevated BP, Start date: 10/08/18 12:18:00 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, Duration: 5 doses or times, Stop date: 10/09/18 0:00:00 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 Acetaminoph 2019-0 No 1,000 mg, M emoria en 10-08 Route: PO, l 18:18: Drug form: [place] 00 TAB, ONCE, Dosing Weight 95.455, kg, PRN Pain Score 1-3, Start date: 10/08/18 12:18:00 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 Promethazin 2019-0 No 6.25 mg, Me moria e 10-08 Route: l 18:18: IVPB, [place] 00 ONCE, Dosing Weight 95.455, kg, PRN Nausea & Vomiting, Start date: 10/08/18 12:18:00 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 Ondansetron 2019-0 No 4 mg, Memor ia 10-08 Route: l 18:18: IVP, ONCE, Dosing Weight 95.455, kg, PRN Nausea & Vomiting, Start date: 10/08/18 12:18:00 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 Dexamethaso 2019-0 No 4 mg, Memor ia ne 10-08 Route: l 18:18: IVP, ONCE, Dosing Weight 95.455, kg, PRN Nausea & Vomiting, Start date: 10/08/18 12:18:00 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 Naloxone 2019-0 No 0.4 mg, Memori a 10-08 Route: l 18:18: IVP, [place] 00 Q2MIN, Dosing Weight 95.455, kg, PRN Narcotic Reversal, Start date: 10/08/18 12:18:00 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, Duration: 8 doses or times, Stop date: Limited # of times Flumazenil 2019-0 No 0.2 mg, Edison anny 10-08 Route: l 18:18: IVP, PRN, [place] 00 Dosing Weight 95.455, kg, PRN Benzodiaze pine Reversal, Initial dose, Start date: 10/08/18 12:18:00 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, Duration: 30 day, Stop date: 11/07/18 13:17:00 CDT Hydromorpho 2019-0 No 0.5 mg, Mem oria ne 10-08 Route: l 18:18: IVP, [place] 00 Q5Min, Dosing Weight 95.455, kg, PRN Pain Score 7-10, Start date: 10/08/18 12:18:00 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, Duration: 4 doses or times, Stop date: Limited # of times sugammadex 2019-0 No Notes: Memor ia 3-03 (Same as: l 18:00: [place]) sugammadex 2018-0 No Notes: Memor ia 3-03 (Same as: l 18:00: [place]) famotidine 2018-0 No Route: IV, M emoria (ANES) 10-08 Drug form: l 17:59: INJ, ONCE, Stop date: 10/08/18 11:59:00 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 metoclopram 2019-0 No Route: IV, Memoria anais (ANES) 10-08 Drug form: l 17:59: INJ, ONCE, Stop date: 10/08/18 11:59:00 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 ondansetron 2019-0 No Route: IV, Memoria (ANES) 10-08 Drug form: l 17:59: INJ, ONCE, Stop date: 10/08/18 11:59:00 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 famotidine 2018-0 No Route: IV, M emoria (ANES) 10-08 Drug form: l 17:59: INJ, ONCE, Stop date: 10/08/18 11:59:00 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 metoclopram 2019-0 No Route: IV, Memoria anais (ANES) 10-08 Drug form: l 17:59: INJ, ONCE, Stop date: 10/08/18 11:59:00 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 ondansetron 2019-0 No Route: IV, Memoria (ANES) 3 Drug form: l 17:59: INJ, ONCE, Stop date: 10/08/18 11:59:00 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 phenylephri 2019-0 No Route: IV, Memoria ne (ANES) 3 Drug form: l 17:57: INJ, ONCE, Stop date: 10/08/18 11:57:00 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 phenylephri 2019-0 No Route: IV, Memoria ne (ANES) 3 Drug form: l 17:57: INJ, ONCE, Stop date: 10/08/18 11:57:00 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 lidocaine 2019-0 No Route: IV, Me moria (ANES) 10-08 Drug form: l 17:51: INJ, ONCE, Stop date: 10/08/18 11:51:00 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 dexamethaso 2019-0 No Route: IV, Memoria ne (ANES) 10-08 Drug form: l 17:51: INJ, ONCE, Stop date: 10/08/18 11:51:00 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 propofol 2019-0 No Route: IV, Mem oria (ANES) 10-08 Drug form: l 17:51: INJ, ONCE, Stop date: 10/08/18 11:51:00 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 rocuronium 2019-0 No Route: IV, M emoria (ANES) 10-08 Drug form: l 17:51: INJ, ONCE, Stop date: 10/08/18 11:51:00 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 levETIRAcet 2019-0 No Route: IV, Memoria am (ANES) 10-08 Drug form: l 17:51: INJ, ONCE, Stop date: 10/08/18 11:51:00 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 fentaNYL 2019-0 No Route: IV, Mem oria (ANES) 10-08 Drug form: l 17:51: INJ, ONCE, Stop date: 10/08/18 11:51:00 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 lidocaine 2019-0 No Route: IV, Me moria (ANES) 10-08 Drug form: l 17:51: INJ, ONCE, Stop date: 10/08/18 11:51:00 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 dexamethaso 2019-0 No Route: IV, Memoria ne (ANES) 10-08 Drug form: l 17:51: INJ, ONCE, Stop date: 10/08/18 11:51:00 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 propofol 2019-0 No Route: IV, Mem oria (ANES) 10-08 Drug form: l 17:51: INJ, ONCE, Stop date: 10/08/18 11:51:00 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 rocuronium 2019-0 No Route: IV, M emoria (ANES) 10-08 Drug form: l 17:51: INJ, ONCE, Stop date: 10/08/18 11:51:00 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 levETIRAcet 2018-0 No Route: IV, Memoria am (ANES) 10-08 Drug form: l 17:51: INJ, ONCE Stop date: 10/08/18 11:51:00 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 fentaNYL 2019-0 No Route: IV, Mem oria (ANES) 10-08 Drug form: l 17:51: INJ, ONCE, Stop date: 10/08/18 11:51:00 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 propofol 2019-0 No Route: IV, Mem oria (ANES) 10 10-08 Drug form: l mg 16:30: INJ, Start date: 10/08/18 10:30:00 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, Stop date: 10/08/18 11:30:00 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 remifentani 2019-0 No Route: IV, Memoria l (ANES) 1 10-08 Drug form: l mg 16:30: INJ, Start date: 10/08/18 10:30:00 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, Stop date: 10/08/18 11:30:00 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 propofol 2019-0 No Route: IV, Mem oria (ANES) 10 10-08 Drug form: l mg 16:30: INJ, Start date: 10/08/18 10:30:00 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, Stop date: 10/08/18 11:30:00 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 remifentani 2018-0 No Route: IV, Memoria l (ANES) 1 10-08 Drug form: l mg 16:30: INJ, Start date: 10/08/18 10:30:00 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, Stop date: 10/08/18 11:30:00 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 Sodium 2019-0 No Route: IV, Memor ia Chloride 10-08 Drug form: l 0.9% IV 16:25: INJ, Start Herm ree (ANES) date: mL + 10/08/18 vancomycin 10:25:00 (ANES) 1500 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, Stop mg date: 10/08/18 11:25:00 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 Sodium 2019-0 No Route: IV, Memor ia Chloride 10-08 Drug form: l 0.9% IV 16:25: INJ, Start Herm ree (ANES) date: mL + 10/08/18 vancomycin 10:25:00 (ANES) 1500 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, Stop mg date: 10/08/18 11:25:00 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 Isolyte S 2019-0 No Route: IV, Me moria PH 7.4 3-03 Total l (ANES) 1000 16:09: Volume: Her salas mL 00 1,000, Start date: 10/08/18 10:09:00 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, Stop date: 10/08/18 11:09:00 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 Isolyte S 2019-0 No Route: IV, Me moria PH 7.4 3-03 Total l (ANES) 1000 16:09: Volume: Her salas mL 00 1,000, Start date: 10/08/18 10:09:00 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, Stop date: 10/08/18 11:09:00 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 Saline 2018-0 No Notes: Memoria Flush 0.9% 3 (Same as: l 15:57: BD [place] 00 Posiflush) Albuterol 2019-0 No 3 ml, Memoria 0.833 MG/ML 10-08 Route: l / 15:57: NEB, Drug [place] Ipratropium 00 Form: [place] SOLN, 0.167 MG/ML Dosing Inhalant Weight Solution 95.455, kg, RQ4H, PRN Wheezing, Start date: 10/08/18 9:57:00 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, Duration: 30 day, Stop date: 11/07/18 9:56:00 CDT Labetalol 2019-0 No 10 mg, 2 Edison anny 3-03 mL, Route: l 15:57: IVP, Drug [place] form: INJ, Q15Min, Dosing Weight 95.455, kg, PRN Hypertensi on, Start date: 10/08/18 9:57:00 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, Duration: 30 day, Stop date: 11/07/18 10:56:00 CDT Hydralazine 2018-0 No 20 mg, 1 Me moria 3-03 mL, Route: l 15:57: IVP, Drug [place] form: INJ, Q4H, Dosing Weight 95.455, kg, PRN Hypertensi on, Start date: 10/08/18 9:57:00 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, Duration: 30 day, Stop date: 11/07/18 9:56:00 CDT Sodium 2019-0 No 1,000 mL, Memori a Chloride 303 Rate: 50 l 0.9% IV 15:57: ml/hr, [place] 1,000 mL 00 Infuse over: 20 hr, Route: IV, Dosing Weight 95.455 kg, Total Volume: 1,000, Start date: 10/08/18 9:57:00 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, Duration: 30 day, Stop date: 11/07/18 9:56:00 CDT, 2.16, m2 Levetiracet 2019-0 No Notes: Edison anny am 10-08 Same as l 15:57: Keppra Mix with 100 mL NS, LR or D5W MEDICATION WASTE Product Size: 500 mg Product Wasted: ___ mg Acetaminoph 2018-0 No 100.4 F, M emoria en 10-08 Start l 15:57: date: [place] 00 10/08/18 9:57:00 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, Duration: 30 day, Stop date: 11/07/18 9:56:00 CDT Ondansetron 2018-0 No Notes: Memoria - MEDICATION l 15:57: WASTE Product Size: 4 mg Product Wasted: ___ mg Bisacodyl 2018-0 No 10 mg, 1 Edison anny - supp, l 15:57: Route: FL, Drug form: SUPP, Daily, Dosing Weight 95.455, kg, PRN Constipati on, Start date: 10/08/18 9:57:00 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, Duration: 30 day, Stop date: 11/07/18 9:56:00 CDT Saline 2018-0 No Notes: Memoria Flush 0.9% 10-08 (Same as: l 15:57: BD Posiflush) Albuterol 0 No 3 ml, Memoria 0.833 MG/ML 10-08 Route: l / 15:57: NEB, Drug Ipratropium Form: [place] SOLN, 0.167 MG/ML Dosing Inhalant Weight Solution 95.455, kg, RQ4H, PRN Wheezing, Start date: 10/08/18 9:57:00 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, Duration: 30 day, Stop date: 11/07/18 9:56:00 CDT Labetalol 0 No 10 mg, 2 Edison anny 3-03 mL, Route: l 15:57: IVP, Drug form: INJ, Q15Min, Dosing Weight 95.455, kg, PRN Hypertensi on, Start date: 10/08/18 9:57:00 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, Duration: 30 day, Stop date: 11/07/18 10:56:00 CDT Hydralazine 2019-0 No 20 mg, 1 Me moria 3-03 mL, Route: l 15:57: IVP, Drug form: INJ, Q4H, Dosing Weight 95.455, kg, PRN Hypertensi on, Start date: 10/08/18 9:57:00 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, Duration: 30 day, Stop date: 11/07/18 9:56:00 CDT Sodium 2018-0 No 1,000 mL, Memori a Chloride 10-08 Rate: 50 l 0.9% IV 15:57: ml/hr, [place] 1,000 mL 00 Infuse over: 20 hr, Route: IV, Dosing Weight 95.455 kg, Total Volume: 1,000, Start date: 10/08/18 9:57:00 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, Duration: 30 day, Stop date: 11/07/18 9:56:00 CDT, 2.16, m2 Levetiracet 2018-0 No Notes: Edison anny am - Same as l 15:57: Keppra Mix with 100 mL NS, LR or D5W MEDICATION WASTE Product Size: 500 mg Product Wasted: ___ mg Acetaminoph 2018-0 No 100.4 F, M emoria en 03 Start l 15:57: date: [place] 00 10/08/18 9:57:00 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, Duration: 30 day, Stop date: 11/07/18 9:56:00 CDT Ondansetron 2018-0 No Notes: Memoria -03 MEDICATION l 15:57: WASTE Product Size: 4 mg Product Wasted: ___ mg Bisacodyl 2019-0 No 10 mg, 1 Edison anny 3-03 supp, l 15:57: Route: FL, [place] 00 Drug form: SUPP, Daily, Dosing Weight 95.455, kg, PRN Constipati on, Start date: 10/08/18 9:57:00 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, Duration: 30 day, Stop date: 11/07/18 9:56:00 CDT Zofran 2019-0 No 4 mg, Memoria 3-03 Route: l 15:09: IVP, Drug [place] 00 form: INJ, ONCE, Dosing Weight 95.455, kg, Priority: STAT, Start date: 10/08/18 9:09:00 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, Stop date: 10/08/18 9:09:00 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 Morphine 2019-0 No 4 mg, Memoria 3-03 Route: l 15:09: IVP, ONCE, [place] 00 Dosing Weight 95.455, kg, Priority: STAT, Start date: 10/08/18 9:09:00 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, Stop date: 10/08/18 9:09:00 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 Sodium 2019-0 No 1,000 mL, Memori a Chloride 3-03 Infuse l 0.9% 15:09: Over: 1 Carlos (Bolus) IV 00 hr, Route: IV, ONCE, Priority: STAT, Dosing Weight 95.455 kg, Start date: 10/08/18 9:09:00 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, Stop date: 10/08/18 9:09:00 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 Zofran 2019-0 No 4 mg, Memoria 3-03 Route: l 15:09: IVP, Drug [place] form: INJ, ONCE, Dosing Weight 95.455, kg, Priority: STAT, Start date: 10/08/18 9:09:00 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, Stop date: 10/08/18 9:09:00 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 Morphine 2019-0 No 4 mg, Memoria 3-03 Route: l 15:09: IVP, ONCE, [place] 00 Dosing Weight 95.455, kg, Priority: STAT, Start date: 10/08/18 9:09:00 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, Stop date: 10/08/18 9:09:00 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 Sodium 2019-0 No 1,000 mL, Memori a Chloride 3-03 Infuse l 0.9% 15:09: Over: 1 Carlos (Bolus) IV 00 hr, Route: IV, ONCE, Priority: STAT, Dosing Weight 95.455 kg, Start date: 10/08/18 9:09:00 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, Stop date: 10/08/18 9:09:00 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 Sulfamethox Sulfamethox Yes Parminder not [facility] azole-TMP azole-TMP Velez defined L ukes - DS DS [facility] Tramadol Tramadol Yes Parminder [address] HCl HCl [facility]elez as [facility] Naproxen Naproxen Yes Parminder [address] [facility] with food [facility] or milk as [facility] Vital Signs Vital Name Observation Time Observation Value Comments Source Systolic blood 2021-08-21 16:46:00 [facility] Diastolic blood 2021-08-21 16:46:00 89 mm[Hg] [facility] 2021-08-21 16:45:00 75 /min [facility] Body temperature 2021-08-21 16:45:00 36.94 [facility] Respiratory rate 2021-08-21 16:45:00 18 /min [facility] Body height 2021-08-21 16:45:00 172.7 cm [facility] Body weight 2021-08-21 16:45:00 96.163 kg [facility] BMI 2021-08-21 16:45:00 32.23 kg/m2 [facility] Heart Rate 2018-10-11 17:26:00 [facility] [place] Temperature Oral (F) 2018-10-11 17:26:00 97.9 F [facility] [place] Respitory Rate 2018-10-11 17:26:00 Memori al [place] Systolic (mm Hg) 2018-10-11 17:26:00 Edison rial [place] Diastolic (mm Hg) 2018-10-11 17:26:00 Mem orial [place] Systolic (mm Hg) 2018-10-11 13:44:00 Edison rial [place] Diastolic (mm Hg) 2018-10-11 13:44:00 Mem orial [place] Respitory Rate 2018-10-11 13:44:00 Memori al [place] Heart Rate 2018-10-11 13:44:00 [facility] [place] Temperature Oral (F) 2018-10-11 13:44:00 99.1 F [facility] [place] Temperature Oral (F) 2018-10-11 10:47:00 97.9 F [facility] 2018-10-11 10:47:00 [facility] [place] Respitory Rate 2018-10-11 10:47:00 Kathy estrada [place] Systolic (mm Hg) 2018-10-11 10:47:00 Edison alvarez [place] Diastolic (mm Hg) 2018-10-11 10:47:00 Eben Chiann Weight 2018-10-08 21:12:00 [facility] [place] Weight 2018-10-08 14:38:00 [facility] Height 2018-10-08 14:38:00 172.72 cm [facility] BMI Calculated 2018-10-08 14:38:00 Kathy Otero Procedures This patient has no known procedures. Encounters Start End Encounter Admission Attending Care Care Encounter Source Date/Time Date/Time Type Type Clinicians Facility Department ID 2021-09-07 Out[facility], [facility]02 [facility] 2021-09-02 Outpatient Velez, [facility] 14:16:27 [facility] [id number] [facility] 2021-09-02 Outpatient Velez, [facility] 14:04:31 [facility]minder [id number] [facility] 2021-09-02 Outpatient Velez, [facility] 13[facility]55:58 [facility] [id number] [facility] 2021-09-02 Outpatient Velez, [facility] [id number] 13:16:30 [facility]minder [id number] [facility] 2021-09-02 Outpatient Velez, [facility] [id number] 13:09:28 [facility]minder [id number] [facility] 2021-09-02 Outpatient Velez, [facility] [id number] [facility] 13:08:55 Parminder [id number] [facility] 2021-09-02 Outpatient Velez, [facility] [id number] [facility] 12:53:51 Parminder [id number] [facility] 2021-09-02 Outpatient Velez, [facility] 12:45:22 [facility]minder [id number] [facility] 2021-09-02 Outpatient Velez, [facility] 12:36:15 [facility]min[facility] [id number] [facility] 2021-09-02 Outpatient Velez, [facility] 12:19:27 Parminder [id number] [facility] 2021-09-02 Outpatient Velez, [facility] 12:07:47 Parminder [id number] [facility] 2021-09-02 Outpatient Velez, [facility] 12:07:23 Parminder [id number] [facility] 2021-09-02 Outpatient Velez, [facility] 11:44:55 Parminder [id number] [facility] 2021-09-02 Outpatient Velez, [facility] 11:42:01 Parminder [id number] [facility] 2021-09-02 Outpatient Velez, [facility] 11:39:14 Parminder [id number] [facility] 2021-09-02 [facility] 11[facility]33:37 [facility]min[facility] [id number] [facility] 2018-10-08 Inpatient E [facility] [id number] [facility] 09:57:00 2021-09-18 2021-09-18 [facility] [id number] Univers 11:30:00 11:30:00 PREMA [id number] [facility] 2021-09-18 2021-09-18 [facility] [id number] Univers 11:30:00 11:30:00 PREMA [facility] 2021-08-21 2021-08-21 Outpatient [facility] [id number] Univers 10:30:00 11:04:[address] [facility] 2021-08-21 2021-08-21 Office [facility] [id number] Univers 10:30:00 11:00:00 Visit Prema LUNDY [id number] i jj alvarez [place] [id number] Zahira BENITEZ [id number] Ok dical NAL 8 Branch [facility] 2021-07-01 2021-07-01 ambulatory [facility] [id number] [facility] 2021-06-30 2021-06-30 ambulatory [facility] [id number] [facility]00 [facility] 2021-05-05 2021-05-05 Outpatient [facility] [id number] [facility]00 [facility] 2021-02-23 2021-02-23 Outpatient [facility] [id number] [facility]00 [facility] 2021-02-23 2021-02-23 Outpatient [facility] [id number] [facility]00 [facility] 2021-01-26 2021-01-26 Outpatient [facility] [id number] [facility]00 [facility] 2021-01-23 2021-01-23 Office [facility] [id number] 08:50:29 10:03:02 Visit Felisa Vasquez [id number] [place] [id number] [place] [phone] [place] [id number] Office [facility] 2021-01-23 2021-01-23 Orders Doctor THACKER [id number] 00:00:00 00:00:00 Only Unassigned, NIKO [id number] [place] [facility] [id number] 2021-01-15 2021-01-15 Outpatient [facility] [id number] [facility]00 [facility] 2021-01-06 2021-01-06 Outpatient [facility] [id number] [facility] 2020-11-25 2020-11-25 Outpatient [facility] [id number] [facility] 2020-09-11 2020-09-11 Outpatient [facility] [id number] [facility]00 [facility] 2020-09-11 2020-09-11 Outpatient [facility] [id number] [facility]00 [facility] 2020-08-14 2020-08-14 Outpatient [facility] [id number] [facility]00 [facility] 2020-07-16 2020-07-16 Outpatient [facility] [id number] [facility]00 [facility] 2020-03-26 2020-03-26 [facility] [id number] [facility] 15:00:00 15:00:00 t Sh[place] s - Drive [facility] Medicine l Medicine Outpati ent Clinics 2020-03-24 2020-03-24 [facility] [id number] [facility] 08:34:00 08:34:00 t Shaser s - Drive [facility] Medicine l Medicine Outpati ent Clinics 2020-03-18 2020-03-18 [facility] [id number] 16:45:00 16:45:00 t Sh[place] s - Drive [facility] Medicine l Medicine Outpati ent Clinics 2020-03-18 2020-03-18 [facility] [id number] 15:30:00 15:30:[address] [place] s - Drive [facility] Medicine Outpati ent Clinics 2020-03-05 2020-03-05 [facility] [id number] 10:30:00 10:30:[address] [place] Drive [facility] Outpati ent Clinics 2019-04-04 2019-04-06 Phone nullFlavo MNA [id number] Memoria 17:21:53 04:59:59 Message r Neurosurger 05 l y [facility] 2018-12-21 2018-12-23 Phone nullFlavo MNA [id number] [facility]oria 15:05:32 04:59:59 Message r Neurosurger 04 l y [facility] 2018-12-08 2018-12-10 Phone nullFlavo MNA [id number] [facility] 18:27:20 04:59:59 Message r Neurosurger 03 l y [facility] 2018-12-07 2018-12-08 Outpatient nullFlavo RIA [id number] Mem[facility] 16:15:00 04:59:59 r Neurosurger 01 l y [facility] 2018-12-07 2018-12-08 Outpt Diag nullFlavo [facility] [id number] Memoria 15:09:00 04:59:00 Services r Outpatient 01 l Imaging [facility] 2018-10-31 2018-11-02 Phone nullFlavo MNA [id number] [facility] 17:52:00 04:59:59 Message r Neurosurger 02 l y [facility] 2018-10-27 2018-10-29 Phone nullFlavo MNA [id number] [facility] 14:49:00 04:59:59 Message r Neurosurger 01 l y [facility] 2018-10-26 2018-10-27 Outpatient nullFlavo MNA [id number] [facility] 17:15:00 04:59:59 r Neurosurger 00 l y [facility] 2018-10-24 2018-10-25 Outpt Diag nullFlavo [facility] [id number] Memoria 13:26:00 04:59:00 Services r Outpatient 00 l Imaging [facility] 2018-10-17 2018-10-19 Phone nullFlavo MNA [id number] [facility]oria 15:08:00 04:59:59 Message r Neurosurger 00 l y [facility] 2018-10-08 2018-10-11 Inpatient nullFlavo [facility] [id number] Mem[facility] 14:37:00 21:18:00 [facility] [place] [facility] [place] Results Test Description Test Time Test Comments [...] code = MCH) 29.6 pg 27.0-31.0 [facility] CeabiubBRMODKRLSE5542-88-67 06:11:0038.3[facility] 2018-10-11 06:11:004.30[facility] WwkudyaMNIOHHNUYT5514-93-62 06:11:0089.1[facility] XwwynweNSXNIBOFKW7436-38-82 06:11:0012.7[facility] RriofohLEQKVHGOAJ6561-26-50 06:11:002.9[facility] HodzuxbUBCQKLZDEQ5295-46-23 06:11:0028.7[facility] [place] JBZDMATSCD1471-36-90 06:11:009.5[facility] IirktuyXRJFGXCRGC5435-93-44 06:11:00 58.7[facility] CqonwcpBOFPWCIKWH8842-00-85 06:11:002.6[facility]ann[facility]MATOLOGY 2018-10-11 06:11:000.3[facility] StucqyqHHQZKGBSRZ7309-35-95 06:11:000.2[facility] IcigdmmYDVWYIEKKJ5029-52-18 06:11:005.3[facility] SrfadvlKZQOXRXITM9897-16-20 06:11:000.9[facility] EytvwjpWHIXMDTJJR1946-90-79 06:11:009.0[facility] [place] IOEDQUNLLY1510-89-67 06:11:09632Jzphppup MrrecqrQUNENNIKTF9097-03-26 06:11:008.7 [facility] FgaegzsSNTTVHYLOJ0490-14-01 06:11:0013.6[facility]annHEMATOLOGY 2018-10-11 06:11:0033.2[facility] CdxocllIWMQGSMNSV4202-83-55 06:11:00 Test Item Value Reference Range Interpretation Comments MCH (test code = MCH) 29.6 pg 27.0-31.0 [facility] NxrbcgwGCBBHOMUPE8163-66-26 06:11:0038.3[facility]annHEMATOLOGY 2018-10-11 06:11:004.30[facility] YtjizmfDKWAJBLUKB4916-08-92 06:11:0089.1[facility] OqbatlgGVTRVUVYNC9901-86-28 06:11:0012.7[facility] KuuorxsJBQOONRLQO0058-49-67 06:11:002.9[facility] AtkojjyQICOVVKCMR7688-11-74 06:11:0028.7[facility] [place] DMKUVQNAPQ3465-90-72 06:11:009.5[facility] PqxsvzcGUGBPTUVGT4367-27-70 06:11:00 58.7[facility] HdqeoegHRAZTBAFQU8102-08-24 06:11:002.6[facility]ann[facility]MATOLOGY 2018-10-11 06:11:000.3[facility] PaplatgAQHIUHIRCL5436-97-80 06:11:000.2[facility] GbfpwlsLOLWCGPDFY2667-35-36 06:11:005.3[facility] EfvjulwZGQTJKAFIC7834-95-51 06:11:000.9[facility] HermannCHEM DYYHN1619-15-80 06:11:0073[facility] HermannCHEM BXRHO6716-35-19 06:11:0074[facility] HermannCHEM DEXQA3386-35-63 06:11:000.93 [facility] HermannCHEM KREPQ2825-50-39 06:11:17918Btygxpxz HermannCHEM PANEL 2018-10-11 06:11:0018[facility] HermannCHEM FPGCA1388-32-04 06:11:008.9[facility] HermannCHEM VLNQC0318-57-11 06:11:003.9[facility] HermannCHEM QAKWX2781-86-72 06:11:96304Prdqient HermannCHEM JQQZH4068-40-38 06:11:0026[facility] HermannCHEM VEVCS4053-82-35 06:11:0011.9[facility] HermannCHEM RWFRW3474-16-44 06:24:002.0 [facility] HermannCHEM XXNFT8222-58-35 06:24:0068[facility] HermannCHEM PANEL 2018-10-10 06:24:003.9[facility] HermannCHEM OSSLI7984-86-76 06:24:87103Blwmmarb HermannCHEM FUOIG8344-47-93 06:24:70418Phrgubvw HermannCHEM AVQME6591-42-47 06:24:001.00[facility] HermannCHEM MTHNB7823-85-30 06:24:0090[facility] HermannCHEM XNWZN1134-35-90 06:24:0021[facility] HermannCHEM EZWHX5607-03-05 06:24:0028 [facility] HermannCHEM DSUDB4182-30-06 06:24:008.6[facility] HermannCHEM PANEL 2018-10-10 06:24:007.9[facility] HermannCHEM GSXBK2905-95-56 06:24:003.9[facility] JuzzbexESFVSAUPJE2212-62-37 06:24:000.1[facility] RqjxbcvRHYPZUUWZT4100-62-92 06:24:000.2[facility] XjevlybCBTTSUEKTY5745-26-95 06:24:002.0[facility] [place] MBAWMBVSLN3557-89-78 06:24:002.1[facility] PzshgytDHFTCMNCFK8011-64-71 06:24:000.8 [facility] XzddodiWGPGHYGZSH6927-29-65 06:24:000.8[facility] HermannHEMATOLOGY 2018-10-10 06:24:005.4[facility] WyfhfccPMAGDJNPQL6619-83-21 06:24:0024.5[facility] LgzhkflLNNITXIBJC8802-25-77 06:24:0063.8[facility] BhexnpuLXOXZHZDWC8104-97-87 06:24:008.9[facility] IvvwsbeBCTYQTNCJU4377-30-07 06:24:92588Ouwwjjjl [place] ZCAZWDTBZF5816-43-26 06:24:008.2[facility] CxpnlbhXQCCKFIVEL0245-42-64 06:24:00 12.3[facility] EgndxulTQFZDFHLYN2528-93-57 06:24:004.13[facility]annHEMATOLOGY 2018-10-10 06:24:008.4[facility] TjzhpggLARMAIXFDH2625-00-58 06:24:0088.9[facility] YesayvkQIXNYHHNIC8935-31-88 06:24:00 Test Item Value Reference Range Interpretation Comments MCH (test code = MCH) 29.9 pg 27.0-31.0 [facility] UfwmantRWZRPHNUYM9771-40-41 06:24:0036.7[facility]annHEMATOLOGY 2018-10-10 06:24:0013.6[facility] YxlqqtiYUNJMBATHF3794-82-00 06:24:0033.6[facility] HermannPARATHYROID ZPFLIEI9797-38-78 06:24:001.14[facility] HermannPARATHYROID YRYXXPA7491-91-40 06:24:001.15[facility] HermannCHEM JBPTE9105-25-71 06:24:002.0 [facility] HermannCHEM JEGLN1625-86-43 06:24:0068[facility] HermannCHEM PANEL 2018-10-10 06:24:003.9[facility] HermannCHEM SHWTS3742-40-88 06:24:42927Erhvwrjy HermannCHEM KMWUQ9580-72-59 06:24:50437Migdfijn HermannCHEM DXANO7688-69-52 06:24:001.00[facility] HermannCHEM LOHMM5958-42-32 06:24:0090[facility] HermannCHEM GHXCQ3789-83-22 06:24:0021[facility] HermannCHEM IGVCN3150-73-87 06:24:0028 [facility] HermannCHEM UCFJJ4265-44-33 06:24:008.6[facility] HermannCHEM PANEL 2018-10-10 06:24:007.9[facility] HermannCHEM DERWB2215-68-51 06:24:003.9[facility] QiiaqobYBJEXJKFRO9556-81-32 06:24:000.1[facility] DwksyvfSBPFRPYBHI0127-38-56 06:24:000.2[facility] YejdolwDRDCDTBYMW7102-18-83 06:24:002.0[facility] [place] ZAMUNAQLTE0067-39-91 06:24:002.1[facility] XkpvqniUDAFAVKZJD7835-87-65 06:24:000.8 [facility] IxssclpWKWWAVKPQP7038-94-53 06:24:000.8[facility]annHEMATOLOGY 2018-10-10 06:24:005.4[facility] FjbjvysWGKCXCBVUK4509-99-57 06:24:0024.5[facility] SxicbyfNILDNFWURS1621-94-60 06:24:0063.8[facility] ChwreuuMBKMCOKBCK8016-20-34 06:24:008.9[facility] ZmsxlibONTUIJUPOI6351-34-71 06:24:16209Trnzufbe Carlos XDGKECILHR6921-81-23 06:24:008.2[facility] SiepfmzVGZJWFICTL8431-95-90 06:24:00 12.3[facility] AuyipdlHHAZWYKGJB6709-51-98 06:24:004.13[facility]annHEMATOLOGY 2018-10-10 06:24:008.4[facility] JdcceiwJQHXYCNHRD6832-61-04 06:24:0088.9[facility] FwmyhryNALDXVKWCK0995-13-81 06:24:00 Test Item Value Reference Range Interpretation Comments MCH (test code = MCH) 29.9 pg 27.0-31.0 [facility] IhfixpcVDVUAMCSBP0744-33-33 06:24:0036.7[facility]annHEMATOLOGY 2018-10-10 06:24:0013.6[facility] DymvfwhBXKEVBGXWL2693-70-95 06:24:0033.6[facility] HermannPARATHYROID JQVWDAD8052-80-99 06:24:001.14[facility] HermannPARATHYROID GSNGIKA4768-94-57 06:24:001.15[facility] HermannCHEM JRQQC2412-86-26 07:49:003.2 [facility] HermannCHEM AHWWF5957-88-71 07:49:001.9[facility] HermannCHEM PANEL 2018-10-09 07:49:0081[facility] HermannCHEM VUAJK8471-85-43 07:49:0010.9[facility] HermannCHEM XRWVE7379-03-94 07:49:008.5[facility] HermannCHEM BFXUU5110-82-88 07:49:003.9[facility] HermannCHEM HFUKB4971-58-24 07:49:70342Vkazffav HermannCHEM WWZJI9433-25-77 07:49:71170Mtnsdxvy HermannCHEM HXBJP3130-89-72 07:49:000.96 [facility] HermannCHEM ECLNQ9336-25-70 07:49:0017[facility] HermannCHEM PANEL 2018-10-09 07:49:99257Tbluuszn HermannCHEM EXJZG5370-68-45 07:49:0024[facility] VgvixxaAAHTWPDETC7569-86-48 07:49:0086.1[facility] VcpaplwCXCKNJIKMU8075-89-19 07:49:000.4[facility] AsyxzqnVQHWSOFRIB0707-23-86 07:49:0012.7[facility] [place] KTUMTVBNOO3171-95-50 07:49:006.3[facility] EftktoaSOJLFFUHRL2141-35-69 07:49:007.2 [facility] MrdlfutYMBDHTMWSX9391-28-16 07:49:000.9[facility] HermannHEMATOLOGY 2018-10-09 07:49:000.1[facility] JiqsepaYODOABEWUT7552-37-79 07:49:001.1[facility] HfxcbflASRBTSNMQG1272-04-27 07:49:008.3[facility] WgzzywlICMETHYTXM5475-10-75 07:49:0033.3[facility] NpsbkqwZOMULWDVPN7738-39-09 07:49:0013.5[facility] [place] WCTDBCSYNT8757-73-65 07:49:29574Qtzetgpu RvrlokzNFDRQULCKU1488-11-82 07:49:00 12.8[facility] TowrdiaKRVUQWPOLB3909-61-08 07:49:0038.4[facility]annHEMATOLOGY 2018-10-09 07:49:0088.1[facility] WkdzldaQKODOYZMDX8101-74-58 07:49:00 Test Item Value Reference Range Interpretation Comments MCH (test code = MCH) 29.4 pg 27.0-31.0 [facility] UojejdoZQZQQRCJCI0954-02-62 07:49:0014.7[facility] HermannHEMATOLOGY 2018-10-09 07:49:004.36[facility] HermannPARATHYROID YSLTXNY9142-94-88 07:49:00 1.15[facility] HermannPARATHYROID TLAYRNU2793-33-76 07:49:001.16[facility] [place] CHEM TXMXU6972-28-12 07:49:003.2[facility] HermannCHEM XJKTU2234-50-03 07:49:001.9 [facility] HermannCHEM YOQBF1271-84-82 07:49:0081[facility]annCHEM PANEL 2018-10-09 07:49:0010.9[facility]annCHEM RNWQC3987-04-66 07:49:008.5[facility]annCHEM ZDXMX0886-81-57 07:49:003.9[facility]annCHEM SRZTO3651-77-63 07:49:68214Jvciqcaz HermannCHEM PFYMU2287-16-72 07:49:13414Wqncjgfp HermannCHEM TWSTO3340-02-65 07:49:000.96[facility]annCHEM RFHGG6407-26-59 07:49:0017 [facility]annCHEM ALVVB6920-02-60 07:49:04135Fpvqnqjv HermannCHEM PANEL 2018-10-09 07:49:0024[facility] MvdonibZIPFVNVVOH2161-86-98 07:49:0086.1[facility] TyqeraaXOUEVMLRLA5527-52-17 07:49:000.4[facility] WnwavbdKFWBJKAEEB1386-45-83 07:49:0012.7[facility] ZpwwcubIHAEIBKPTJ8293-41-60 07:49:006.3[facility] DTBACPGBMP9094-46-59 07:49:007.2[facility] IfttutvNMUAJLEVXE7037-85-99 07:49:000.9 [facility] TqpruppBLXOTILGIS2452-03-08 07:49:000.1[facility]annHEMATOLOGY 2018-10-09 07:49:001.1[facility] FwafcsuELJOZXBJZI4160-87-59 07:49:008.3[facility] CqfyjybTXKQDDPLLO8089-33-93 07:49:0033.3[facility] QeulkvdXFOIBTXYMI8473-95-29 07:49:0013.5[facility] YsvebhgPWGTTRQUQT9225-38-46 07:49:98299Xxtctzbt [place] LYKABGFXVT3117-34-92 07:49:0012.8[facility] BqwvtbtAGPFKSZCFR3451-99-25 07:49:00 38.4[facility] YqfreesDRWSLGDTOB8231-74-74 07:49:0088.1[facility]annHEMATOLOGY 2018-10-09 07:49:00 Test Item Value Reference Range Interpretation Comments MCH (test code = MCH) 29.4 pg 27.0-31.0 [facility] YiolaktRNWPTPKIUF5142-89-86 07:49:0014.7[facility]annHEMATOLOGY 2018-10-09 07:49:004.36[facility]annPARATHYROID INXLIVD5928-91-72 07:49:00 1.15[facility]annPARATHYROID KFGUGOX0293-77-32 07:49:001.16[facility] [place] CARDIAC WGSERIB8779-49-01 18:27:00<0.02[facility]annCARDIAC ENZYMES 2018-10-08 18:27:00<0.02[facility]annUR[facility] AND GQKPK0214-68-99 15:59:00 Negative *NA*(10/08/18 9:59 AM)[facility] EWLRW9265-26-72 15:59:00 Negative (10/08/18 9:59 AM)[facility] ULPKP0175-58-52 15:59:00 Negative *NA*(10/08/18 9:59 AM)[facility] WUVQQ6738-27-82 15:59:00 Test Item Value Reference Range Interpretation Comments UA Spec Grav (test code = UA Spec 1.010 1 Grav) [facility] [id number] 15:59:00 Test Item Value Reference Range Interpretation Comments UA pH (test code = UA pH) 6.0 1 5.0-8.0 [facility] IPRWK2622-36-80 15:59:00Yellow *NA*(10/08/18 9:59 AM) [facility] ASEPZ1924-91-72 15:59:00Clear (10/08/18 9:59 AM)[facility] FJXMS2404-39-42 15:59:00Negative (10/08/18 9:59 AM)[facility] UOMQL7809-51-83 15:59:00Negative (10/08/18 9:59 AM)[facility] RRCQO5879-79-57 15:59:00Small *ABN*(10/08/18 9:59 AM)[facility] BMBXJ1097-21-69 15:59:00Negative (10/08/18 9:59 AM)[facility] GNLVF4267-17-58 15:59:000.2[facility] STOOL 2018-10-08 15:59:00Negative *NA*(10/08/18 9:59 AM)[facility] STOOL 2018-10-08 15:59:00Negative (10/08/18 9:59 AM)[facility] STOOL 2018-10-08 15:59:00Negative *NA*(10/08/18 9:59 AM)[facility] STOOL 2018-10-08 15:59:00 Test Item Value Reference Range Interpretation Comments UA Spec Grav (test code = UA Spec 1.010 1 Grav) [facility] [id number] 15:59:00 Test Item Value Reference Range Interpretation Comments UA pH (test code = UA pH) 6.0 1 5.0-8.0 [facility] SIJFG1010-05-39 15:59:00Yellow *NA*(10/08/18 9:59 AM) [facility] TZTGM4677-92-60 15:59:00Clear (10/08/18 9:59 AM)[facility] PXTER2044-10-97 15:59:00Negative (10/08/18 9:59 AM)[facility] [id number] 15:59:00Negative (10/08/18 9:59 AM)[facility] [id number] 15:59:00Small *ABN*(10/08/18 9:59 AM)[facility] [id number] 15:59:00Negative (10/08/18 9:59 AM)[facility] [id number] 15:59:000.2[facility] [id number] 15:21:00 Test Item Value Reference Range Interpretation Comments PTT (test code = PTT) 36.5 s 22.9-35.8 [facility] [id number] 15:21:00 Test Item Value Reference Range Interpretation Comments PT (test code = PT) 13.3 s 12.0-14.7 [facility] [id number] 15:21:00 Test Item Value Reference Range Interpretation Comments INR (test code = INR) 1.03 1 0.85-1.17 [facility] RlkjfszLJPMPZTWEQ2667-06-30 15:21:00 Test Item Value Reference Range Interpretation Comments Split Point Rapid (test code = Split 0.6 min Point Rapid) [facility] [id number] 15:21:00 Test Item Value Reference Range Interpretation Comments R-time Rapid (test code = R-time 0.7 min 0.4-0.7 Rapid) [id number] 15:21:00 Test Item Value Reference Range Interpretation Comments ACT (TEG) Rapid (test code = ACT (TEG) 113 s 86-118 Rapid) [facility] AtlantaCeoxaqnTJVXUUJENJ1785-27-20 15:21:0015.0[facility] 2018-10-08 15:21:00 Test Item Value Reference Range Interpretation Comments K-time Rapid (test code = K-time 0.8 min 0.6-2.3 Rapid) [facility] [id number] 15:21:000.3[facility] 2018-10-08 15:21:00 Test Item Value Reference Range Interpretation Comments Angle Rapid (test code = Angle 79 degrees 64-80 Rapid) [facility] [id number] 15:21:00 Test Item Value Reference Range Interpretation Comments Max Amplitude Rapid (test code = Max 75 mm 52-71 Amplitude Rapid) [facility] AtlantaAilxwjmKBEBLVRWAU1164-49-00 15:21:00 Test Item Value Reference Range Interpretation Comments PTT (test code = PTT) 36.5 s 22.9-35.8 [facility] AtlantaUdsazpqUXNMUCKIRQ0637-24-10 15:21:00 Test Item Value Reference Range Interpretation Comments PT (test code = PT) 13.3 s 12.0-14.7 [facility] [id number] 15:21:00 Test Item Value Reference Range Interpretation Comments INR (test code = INR) 1.03 1 0.85-1.17 [facility] AtlantaRrelxbuKBEVSQNQRZ4480-83-71 15:21:00 Test Item Value Reference Range Interpretation Comments Split Point Rapid (test code = Split 0.6 min Point Rapid) [facility] [id number] 15:21:00 Test Item Value Reference Range Interpretation Comments R-time Rapid (test code = R-time 0.7 min 0.4-0.7 Rapid) [facility] [id number] 15:21:00 Test Item Value Reference Range Interpretation Comments ACT (TEG) Rapid (test code = ACT (TEG) 113 s 86-118 Rapid) [facility] AtlantaWiqrcfvNBZJUYAENS6362-78-81 15:21:0015.0[facility] 2018-10-08 15:21:00 Test Item Value Reference Range Interpretation Comments K-time Rapid (test code = K-time 0.8 min 0.6-2.3 Rapid) [facility] XkvogppCWRKPXBUDI9622-66-59 15:21:000.3[facility] 2018-10-08 15:21:00 Test Item Value Reference Range Interpretation Comments Angle Rapid (test code = Angle 79 degrees 64-80 Rapid) [facility] EqbmseoMKLYCNHPWJ4475-57-52 15:21:00 Test Item Value Reference Range Interpretation Comments Max Amplitude Rapid (test code = Max 75 mm 52-71 Amplitude Rapid) [facility] [id number] 15:20:00Negative (10/08/18 9:20 AM) [facility] [id number] 15:20:00Negative (10/08/18 9:20 AM) [facility]CARDIAC [id number] 15:18:00<0.02[facility]annCHEM [id number] 15:18:003.9[facility]annCHEM [id number] 15:18:001.9 [facility]annCHE[facility] [id number] 15:18:000.8[facility] 2018-10-08 15:18:000.1[facility] FnbxpwnDNSGUXZNZZ4413-53-38 15:18:000.1[facility] DqnufmoOUQNIVMPRS7553-13-44 15:18:001.8[facility]annCARDIAC [id number] 15:18:00<0.02[facility]annCHEM [id number] 15:18:003.9[facility]annCHEM [id number] 15:18:001.9[facility]annCHEM [id number] 15:18:000.8[facility] OtqlovtKNWPDYKMCX8237-67-29 15:18:000.1[facility] [id number] 15:18:000.1[facility] ZyvakczHGKQWQIIQM1164-19-27 15:18:001.8 [facility]
[2021-09-16 19:04] LABS: Urine Bacteria >50 /HPF (<20); Urine RBC LOADED /HPF (NONE SEEN)
--- NOTE | 2021-09-16 19:24 | EDPHYS ---
Physician Documentation [facility] Name: Joanna Lim Age: 51 yrs Sex: Female : 1970 Arrival Date: 09/16/2021 Time: 17:29 Bed 12 Private MD: Jose Daniel Velezh ED Physician Steven Meehan HPI: 09/16 19:17 This 51 yrs old Black Female presents to ER via Ambulatory with complaints of Dysuria. jmm 19:17 The patient presents with urinary symptoms, Abnormal color, abnormal color, abnormal jmm smell. Onset: The symptoms/episode began/occurred gradually. Modifying factors: The symptoms are alleviated by nothing, the symptoms are aggravated by nothing. Associated signs and symptoms: Pertinent negatives: fever, vaginal bleeding, vaginal discharge, vomiting. 51-year-old female with a history of chronic lower back pain the presents emerged part with complaints of abnormal urination, abnormal smell to her urine, and increased frequency. Patient denies back pain, vomiting. 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 - Social history:: Smoking status: Patient denies any tobacco usage or history of. ROS: 19:17 Constitutional: Negative for fever, chills, and weight loss, Cardiovascular: Negative jmm for chest pain, palpitations, and edema, Respiratory: Negative for shortness of breath, cough, wheezing, and pleuritic chest pain. 19:17 Back: Positive for pain with movement. 19:17 : Positive for urinary symptoms. 19:17 All other systems are negative. Exam: 19:17 Constitutional: This is a well developed, well nourished patient who is awake, alert, jmm and in no acute distress. Head/Face: atraumatic. Eyes: EOMI, no conjunctival erythema appreciated ENT: Moist Mucus Membranes Neck: Trachea midline, Supple Chest/axilla: Normal chest wall appearance and motion. Cardiovascular: Regular rate and rhythm. No edema appreciated Respiratory: Normal respirations, no respiratory distress appreciated 19:17 Back: Normal ROM Skin: General appearance color normal MS/ Extremity: Moves all extremities, no obvious deformities appreciated, no edema noted to the lower extremities Neuro: Awake and alert Psych: Behavior is normal, Mood is normal, Patient is cooperative and pleasant 19:17 Abdomen/GI: Inspection: abdomen appears normal, Bowel sounds: normal, Palpation: soft, nontender, in all quadrants. Vital Signs: 17:34 BP 153 / 103; Pulse 88; Resp 17; Temp 97.6; Pulse Ox 100% ; Weight 95.25 kg; Height 5 vg1 ft. 8 in. (172.72 cm); Pain 2/10; 19:09 BP 149 / 86; Pulse 81; Resp 16; Pulse Ox 98% on R/A; ab2 17:34 Body Mass Index 31.93 (95.25 kg, 172.72 cm) vg1 MDM: 17:38 Patient medically screened. [facility] 19:21 Data reviewed: vital signs, nurses notes. Counseling: I had a detailed discussion with [facility] the patient and/or guardian regarding: the historical points, exam findings, and any diagnostic results supporting the discharge/admit diagnosis, lab results, the need for outpatient follow up, to return to the emergency department if symptoms worsen or persist or if there are any questions or concerns that arise at home. ED course: Patient alert and nontoxic in appearance in the ED. UA reveals concerns for UTI. Will treat with oral antibiotics. Patient otherwise given strict return precautions. Patient understood agrees plan of care.. 09/16 17:43 Order name: Urine Microscopic Only; Complete Time: 19:05 [facility] 09/16 17:43 Order name: Urine Culture [facility] 09/16 17:42 Order name: Urine Dipstick-Ancillary (obtain specimen); Complete Time: 17:46 vg1 Administered Medications: 19:28 Drug: Valium (diazepam) 5 mg Route: PO; ab2 Disposition: 09/17 08:26 Co-signature as Attending Physician, Steven Meehan MD I agree with the assessment and [facility] plan of care. Disposition Summary: 09/16/21 19:23 Discharge Ordered Location: Home [facility] Condition: Stable [facility] Diagnosis - UTI/ Urinary tract infection, site not specified [facility] Followup: [facility] - With: Parminder Velez, DO - When: 2 - 3 days - Reason: Recheck today's complaints, Continuance of care, Re-evaluation by your physician Discharge Instructions: - Discharge Summary Sheet [facility] - Urinary Tract Infection, Adult [facility] Forms: - Medication Reconciliation Form [facility] - Thank You Letter [facility] - Antibiotic Education [facility] - Prescription Opioid Use [facility] Prescriptions: - Macrobid 100 mg Oral Capsule - take 1 capsule by ORAL route every 12 hours for 7 days; 14 capsule; Refills: 0, jm Product Selection Permitted Signatures: Dispatcher [employer] Steven Wynne MD MD cha Mickail, Joel, PA PA jmm Garcia, Victoria, RN RN vg1 Samuel Patterson2
--- NOTE | 2021-09-16 19:24 | ER ---
Nurse's Notes [facility] Name: Joanna Lim Age: 51 yrs Sex: Female : 1970 Arrival Date: 09/16/2021 Time: 17:29 Bed 12 Private MD: Parminder Velez Diagnosis: UTI/ Urinary tract infection, site not specified Presentation: 09/16 17:34 Chief complaint: Patient states: frequent urination began today; states urine is 'dark vg1 in color' and LLQ pain and headache. Coronavirus screen: Vaccine status: Patient reports being unvaccinated. Client denies travel out of the [place] in the last 14 days. Ebola Screen: Patient negative for fever greater than or equal to 101.5 degrees Fahrenheit, and additional compatible Ebola Virus Disease symptoms. Initial Sepsis Screen: Does the patient meet any 2 criteria? No. Patient's initial sepsis screen is negative. Does the patient have a suspected source of infection? No. Patient's initial sepsis screen is negative. Risk Assessment: Do you want to hurt yourself or someone else? Patient reports no desire to harm self or others. Onset of symptoms was September 16, 2021. 17:34 Method Of Arrival: Ambulatory vg1 17:34 Acuity: JAYSHREE 4 vg1 Triage Assessment: 17:36 General: Appears in no apparent distress. uncomfortable, Behavior is calm, cooperative. vg1 Pain: Complains of pain in left lower quadrant and head. 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 - Social history:: Smoking status: Patient denies any tobacco usage or history of. Screenin:59 Abuse screen: Denies threats or abuse. Denies injuries from another. Nutritional ab2 screening: No deficits noted. Tuberculosis screening: No symptoms or risk factors identified. Fall Risk None identified. Assessment: 17:57 General: Appears in no apparent distress. comfortable, Behavior is calm, cooperative, ab2 appropriate for age. Pain: Complains of pain in left lower quadrant Pain currently is 6 out of 10 on a pain scale. Neuro: Level of Consciousness is awake, alert, obeys commands, Oriented to person, place, time, situation, Appropriate for age. Neuro: Reports headache. Cardiovascular: No deficits noted. Denies chest pain, Heart tones S1 S2 present Patient's skin is warm and dry. Chest pain is denied. Respiratory: No deficits noted. Airway is patent Breath sounds are clear bilaterally. Denies shortness of breath. GI: Reports lower abdominal pain. : Urine is blood tinged, Reports urgency, urinary frequency. EENT: No deficits noted. No signs and/or symptoms were reported regarding the EENT system. Derm: No deficits noted. No signs and/or symptoms reported regarding the dermatologic system. 19:32 Reassessment: Patient appears in no apparent distress at this time. ab2 Vital Signs: 17:34 BP 153 / 103; Pulse 88; Resp 17; Temp 97.6; Pulse Ox 100% ; Weight 95.25 kg; Height 5 vg1 ft. 8 in. (172.72 cm); Pain 2/10; 19:09 BP 149 / 86; Pulse 81; Resp 16; Pulse Ox 98% on R/A; ab2 17:34 Body Mass Index 31.93 (95.25 kg, 172.72 cm) vg1 ED Course: 17:29 Patient arrived in ED. am2 17:29 Parminder Velez DO is Private Physician. am2 17:36 Triage completed. vg1 17:36 [facility] Tony [facility] 17:36 Steven Meehan MD is Attending Physician. [facility] 17:36 Arm band placed on. vg1 17:45 Samuel Patterson is Primary Nurse. ab2 17:46 Urine Culture Sent. ab2 17:46 Urine Microscopic Only Sent. ab2 17:59 Patient has correct armband on for positive identification. Bed in low position. Call ab2 light in reach. Side rails up X2. 17:59 No provider procedures requiring assistance completed. ab2 19:22 Parminder Velez DO is Referral Physician. [facility] 19:32 Patient did not have IV access during this emergency room visit. ab2 Administered Medications: 19:28 Drug: Valium (diazepam) 5 mg Route: PO; ab2 Outcome: 19:23 Discharge ordered by . sanjuanita 19:32 Discharged to home ambulatory. ab2 19:32 Condition: good 19:32 Discharge instructions given to patient, Instructed on discharge instructions, follow up and referral plans. medication usage, Demonstrated understanding of instructions, follow-up care, medications, Prescriptions given X 1. 19:32 Patient left the ED. ab2 Signatures: Francis Tony PA PA jmm Moreno, Amanda am2 Garcia, Victoria, RN RN vg1 Samuel Patterson ab2
[2021-09-16] MEDS ORDERED: DIAZEPAM 5 MG TABLET ONE (19:29)
[2021-09-16 19:49] VITALS: TEMP 97.6
[2021-09-16 19:50] VITALS: BP 149/86; O2SAT 98
== END 2021-09-16 19:32 | disposition home or self-care (01) ==
LOC: ER 17:26
DX: N39.0 Urinary tract infection, site not specified (principal); Z88.0 Allergy status to penicillin
CPT/HCPCS: 81015; 87086; 87088; 99283

== ENCOUNTER 2021-10-27 19:58 | Emergency (ER) | payer OTHER ==
--- OUTSIDE RECORDS SUMMARY | 2021-10-27 20:06 | XMS REPORT | Continuity of Care Document ---
:1970 Author Organization [facility] t Address [address] [place] [address] Support Name Relationship Address Phone Joseph Lauren [address] [place] [address] L Joseph Relative [address] [place] [address] N Carina Child [address] [facility] [place] [address] Carina Unavailable [address] [phone] [place] [address] Carina Unavailable [address] [phone] [place] [address] Brittnee DUBOSE E [address] [facility] [facility] [place] [address] JOSEPHSavi Relative [address] [place] [address] Care Team Providers Name Role Phone Norma Velez Primary Care Physician Katie VELEZ Attending Clinician Unavailable Norma Velez Attending Clinician Unavailable Bc LOPEZ Attending Clinician BC Attending Clinician Unavailable Only, Test Attending Clinician Unavailable Rashi MANRIQUEZ A Attending Clinician Catrina LOPEZ Attending Clinician CATRINA Attending Clinician Unavailable Pob, Lab Main Attending Clinician Unavailable Joey ROBINS, L Attending Clinician Unavailable TRISTON KEITA Attending Clinician Unavailable TRISTON KEITA Attending Clinician Unavailable Zach CORCORAN Attending Clinician Unavailable [place] DNP, RECYCLING OR RUBBISH COLLECTOR, CNP-BC, N Attending Clinician Doctor Unassigned, Name Attending Clinician Unavailable Bc LOPEZ Admitting Clinician BC Admitting Clinician Unavailable Payers Payer Name Policy Type Policy Number Effective Date Expiration Date Emilia naranjo [place] [id number] 2019 00:00:00 [employer] PLAN CHIP Problems Condition Condition Condition Status Onset Resolution Last Treating Co mments Source Name Details Category Date Date Treatment Clinician Date Left Left Disease Active Overview: Univer s ureteral ureteral 3-07 Formattin ity of stone stone 00:00: g of this [place] 00 note Medical might be Branch different from the original. Added automatic ally from request for surgery [id number] Obesity Obesity Disease Active Univers (BMI (BMI 3-07 ity of 30-39.9) 30-39.9) 00:00: [place] 00 Medical Branch CHRONIC Diagnosis Active 2019-02-01 Me moria SDH 3-03 10:05:00 l CHRONIC 00:00: [place] SDH 00 Active 10/08/2018 [facility] NON Diagnosis Active 2018-10-08 Mem oria SUBACUTE 3-03 10:22:00 l TRAUMATIC NON 00:00: [place] SUBDURAL SUBACUTE 00 HEMATOMA TRAUMATIC SUBDURAL HEMATOMA Active 10/08/2018 [facility] Status Status Disease Active Univers post post 2-23 ity of vaginal vaginal 00:00: [place] hysterecto hysterecto 00 Me dical my my Branch Post-opera Post-opera Disease Active U nivers tive state tive state 2-23 it y of 00:00: [place] Medical [facility] [...] 2019-02-01 Memoria IC CHRONIC 10:05:00 l SUBDURAL [place] HEMORRHAGE NONTRAUMAT IC CHRONIC SUBDURAL HEMORRHAGE Active [facility] Allergies, Adverse Reactions, Alerts [...] of 00:00: [place] 00 Medical Branch Penicill Adverse Active hives [facility] Reaction [facility] penicill penicill Active Memori a in in l [place] Social History Social Habit Start Date Stop Date Quantity Comments Source History SDOH [facility] [place] Alcohol Frequency Medical Branch History SDOH [facility] [place] Alcohol Std Drinks Medica l Branch History [facility] [place] Alcohol Binge Medical [facility] Exposure to Not sure [facility] SARS-CoV-2 (event) Medica l Branch Alcohol intake 2021-10-14 2021-10-14 0 /d [facility] 00:00:00 00:00:00 Medical Branch Alcohol Comment 2021-07-24 2021-07-24 occasional [facility] 00:00:00 00:00:00 Medical Branch Sex Ass[birth year] [facility] 00:00:00 00:00:00 Smoking Status Start Date Stop Date Source Never smoker [facility] Medications Ordered Filled Start Stop Current Ordering Indication Dosage Frequency Signature Comments Components Source Medication Medication Date Date Medication? Clinician (SIG) Name Name lactated Yes 500mL at 75 Univers ringers IV 3-22 mL/hr, 500 ity of infusion 13:45: mL, IV [place] 500 mL 00 Infusion, Medical CONTINUOUS Branch , Starting on Tue10/27/21 at 0845, Until Discontinu ed, Routine, PACU HYDROcodone 2021- No 1{tbl} 1 tablet, Univers -acetaminop 10-27 Oral, ity of hen (NORCO 13:45: 15:48 ONCE, 1 Alli as 5) 5-325 mg 00 :00 dose, On Medi calderon tablet 1 Tue Branch tablet 10/27/21 at 0845, Routine, PACU HYDROmorphO Yes .2mg 0.2 mg, Uni vers ne 10-27 Slow IV ity of (DILAUDID) 13:40: Push, [place] injection 06 Q5MIN PRN, Medi calderon 0.2 mg 10 doses, Branch Starting on Tue10/27/21 at 0840, Until Discontinu ed, Routine, Pain (scale 7-10), PACU
Us e approved by (Faculty): PACU USE -ANESTHESI A SERVICE-HY DROMORPHON E INJECTIONS FENTanyl PF 2021-0 Yes 25ug 25 mcg, Uni vers (SUBLIMAZE 3-22 Slow IV ity of (PF)) 13:40: Push, [place] injection 06 Q5MIN PRN, Medi calderon 25 mcg 4 doses, Branch Starting on Tue10/27/21 at 0840, Until Discontinu ed, Routine, Pain (scale 4-6), PACU ondansetron 0 Yes 4mg 4 mg, Slow Univers (ZOFRAN 3-22 IV Push, ity of (PF)) 13:40: PRN, 1 [place] injection 4 06 dose, Medical mg Starting Branch on Tue10/27/21 at 0840, Until Discontinu ed, Routine, Nausea and Vomiting (N/V), PACU NAPROXEN 2021-0 Yes 1{tbl} Take 1 Unive rs ORAL 3-22 tablet by ity of 11:13: mouth. [address] DULoxetine 2021-0 Yes 20mg Take 20 mg U nivers 20 mg 3-22 by mouth ity of capsule 11:13: daily. [address] tiZANidine 2021-0 Yes 4mg Take 4 mg Un leonel 4 mg 3-22 by mouth 3 ity of capsule 11:13: (three) [place] [id number] times Medical daily. Branch NAPROXEN 2021-0 Yes 1{tbl} Take 1 Unive rs ORAL 3-22 tablet by ity of 11:13: mouth. [address] DULoxetine 2021-0 Yes 20mg Take 20 mg U nivers 20 mg 3-22 by mouth ity of capsule 11:13: daily. [address] tiZANidine 2021-0 Yes 4mg Take 4 mg Un leonel 4 mg 3-22 by mouth 3 ity of capsule 11:13: (three) [place] 06 times Medical daily. Branch ibuprofen 2021-0 Yes [id number] 400mg Take 2 U nivers (MOTRIN IB) 3-22 tablets by it y of 200 mg 00:00: mouth [place] tablet 00 every 6 Medical (six) Branch hours as needed for Pain (scale 1-3). ibuprofen Yes [id number] 400mg Take 2 U nivers (MOTRIN IB) 3-22 tablets by it y of 200 mg 00:00: mouth [place] tablet 00 every 6 Medical (six) Branch hours as needed for Pain (scale 1-3). acetaminoph 2022- Yes [id number] 650mg Take 2 Univers en 325 mg -27 10-23 tablets by ity of tablet 00:00: 04:59 mouth [place] 00 :00 every 6 Medical (six) Branch hours as needed for Pain (scale 1-3). acetaminoph 2022- Yes [id number] 650mg Take 2 Univers en 325 mg -27 10-23 tablets by ity of tablet 00:00: 04:59 mouth [place] 00 :00 every 6 Medical (six) Branch hours as needed for Pain (scale 1-3). oxybutynin 2021- Yes [id number] 5mg Take 1 Univers chloride 5 -27 10-30 tablet by ity of mg tablet 00:00: 04:59 mouth 3 [place] 00 :[place] (three) Medical times Branch daily as needed for Bladder spasms for up to 7 days. For bladder spasms or stent pain. tamsulosin 2021- Yes [id number] .4mg Take 1 Univers 0.4 mg 24 -27 10-30 capsule by ity of hr capsule 00:00: 04:59 mouth [place] 00 :00 daily for Medical 7 days. Branch oxybutynin 2021- Yes [id number] 5mg Take 1 Univers chloride 5 -27 10-30 tablet by ity of mg tablet 00:00: 04:59 mouth 3 [place] 00 :00 (three) Medical times Branch daily as needed for Bladder spasms for up to 7 days. For bladder spasms or stent pain. tamsulosin 2021- Yes [id number] .4mg Take 1 Univers 0.4 mg 24 3- 03-30 capsule by ity of hr capsule 00:00: 04:59 mouth [place] 00 :00 daily for Medical 7 days. Branch tiZANidine Yes 4mg Take 4 mg Un leonel 4 mg 3-16 by mouth 3 ity of capsule 11:43: (three) [place] 56 times Medical daily. Branch tiZANidine 2-0 Yes 4mg Take 4 mg Un leonel 4 mg 3-10 by mouth 3 ity of capsule 04:22: (three) [place] 01 times Medical daily. Branch tiZANidine 2022-0 Yes 4mg Take 4 mg Un leonel 4 mg 3-10 by mouth 3 ity of capsule 04:22: (three) [place] 01 times Medical daily. Branch HYDROcodone 2021-0 2022- No 1{tbl} 1 tablet, Univers -acetaminop 3-08 03-08 Oral, ity of hen (NORCO 21:15: 21:13 ONCE, 1 Alli as 5) 5-325 mg 00 :00 dose, On Medi calderon tablet 1 Tue10/13/21 Branc h tablet at 1515, Routine, PACU HYDROcodone 2021-0 2- No 1{tbl} 1 tablet, Univers -acetaminop 3- 03-08 Oral, ity of hen (NORCO 21:15: 21:13 ONCE, 1 Alli as 5) 5-325 mg 00 :00 dose, On Medi calderon tablet 1 Tue10/13/21 Branc h tablet at 1515, Routine, PACU HYDROmorphO 2021-0 Yes .2mg 0.2 mg, Uni vers ne 3-08 Slow IV ity of (DILAUDID) 21:00: Push, [place] injection 51 Q5MIN PRN, Medi calderon 0.2 mg 10 doses, Branch Starting on Tue10/13/21 at 1500, Until Discontinu ed, Routine, Pain (scale 7-10), PACU
Us e approved by (Faculty): PACU USE -ANESTHESI A SERVICE-HY DROMORPHON E INJECTIONS FENTanyl PF 2021-0 Yes 25ug 25 mcg, Uni vers (SUBLIMAZE 3-08 Slow IV ity of (PF)) 21:00: Push, [place] injection 51 Q5MIN PRN, Medi calderon 25 mcg 4 doses, Branch Starting on Tue10/13/21 at 1500, Until Discontinu ed, Routine, Pain (scale 4-6), PACU ondansetron 2021-0 Yes 4mg 4 mg, Slow Univers (ZOFRAN 3-08 IV Push, ity of (PF)) 21:00: PRN, 1 [place] injection 4 51 dose, Medical mg Starting Branch on Tue10/13/21 at 1500, Until Discontinu ed, Routine, Nausea and Vomiting (N/V), PACU HYDROmorphO 2021- No .2mg 0.2 mg, Un leonel ne 10-13-09 Slow IV ity of (DILAUDID) 21:00: 00:27 Push, [place] injection 51 :52 Q5MIN PRN, Medi calderon 0.2 mg 10 doses, Branch Starting on Tue10/13/21 at 1500, Until Tue10/13/21 at 1827, Routine, Pain (scale 7-10), PACU
Us e approved by (Faculty): PACU USE -ANESTHESI A SERVICE-HY DROMORPHON E INJECTIONS FENTanyl PF 2021- No 25ug 25 mcg, Un leonel (SUBLIMAZE 10-13 Slow IV ity o f (PF)) 21:00: 00:27 Push, [place] injection 51 :52 Q5MIN PRN, Medi calderon 25 mcg 4 doses, Branch Starting on Tue10/13/21 at 1500, Until Tue10/13/21 at 1827, Routine, Pain (scale 4-6), PACU ondansetron 2021- No 4mg 4 mg, Slow Univers (ZOFRAN 10-13- IV Push, ity of (PF)) 21:00: 00:27 PRN, 1 [place] injection 4 51 :52 dose, Medical mg Starting Branch on Tue10/13/21 at 1500, Until Tue10/13/21 at 1827, Routine, Nausea and Vomiting (N/V), PACU ibuprofen 2021- Yes 800mg 800 mg, Univ ers (IBU) 3-08 Oral, PRN, ity of tablet 800 21:00: 1 dose, [place] mg 47 Starting Medical on Tue Branch 10/13/21 at 1500, Until Discontinu ed, Routine, Pain (scale 1-3), DSU Recovery ondansetron 2021-0 Yes 4mg 4 mg, Slow Univers (ZOFRAN 3-08 IV Push, ity of (PF)) 21:00: Q4HPRN, 1 [place] injection 4 47 dose, Medical mg Starting Branch on Tue10/13/21 at 1500, Until Discontinu ed, Routine, Nausea and Vomiting (N/V), DSU Recovery ibuprofen No 800mg 800 mg, Uni vers (IBU) 10-13 03-09 Oral, PRN, ity of tablet 800 21:00: 00:27 1 dose, Alli as mg 47 :52 Starting Medical on Tue10/13/21 at 1500, Until Tue10/13/21 at 1827, Routine, Pain (scale 1-3), DSU Recovery ondansetron 2021- No 4mg 4 mg, Slow Univers (ZOFRAN 10-1309 IV Push, ity of (PF)) 21:00: 00:27 Q4HPRN, 1 [place] injection 4 47 :52 dose, Medical mg Starting Branch on Tue10/13/21 at 1500, Until Tue10/13/21 at 1827, Routine, Nausea and Vomiting (N/V), DSU Recovery NAPROXEN 2021-0 Yes 1{tbl} Take 1 Unive rs ORAL 3-08 tablet by ity of 16:27: mouth. [address] DULoxetine 0 Yes 20mg Take 20 mg U nivers 20 mg 3-08 by mouth ity of capsule 16:27: daily. [address] tiZANidine 0 Yes 4mg Take 4 mg Un leonel 4 mg 3-08 by mouth 3 ity of capsule 16:27: (three) [address] daily[address] Branch NAPROXEN 0 Yes 1{tbl} Take 1 Unive rs ORAL 3-08 tablet by ity of 16:27: mouth. [address] DULoxetine 0 Yes 20mg Take 20 mg U nivers 20 mg 3-08 by mouth ity of capsule 16:27: daily. [address] NAPROXEN 2021-0 Yes 1{tbl} Take 1 Unive rs ORAL 3-08 tablet by ity of 16:27: mouth. [place] [address] Medical [place] DULoxetine 2021-0 Yes 20mg Take 20 mg U nivers 20 mg 3-08 by mouth ity of capsule 16:27: daily. [place] [address] Medical Branch NAPROXEN 2021-0 Yes 1{tbl} Take 1 Unive rs ORAL 3-08 tablet by ity of 16:27: mouth. [address] Branch DULoxetine 2021-0 Yes 20mg Take 20 mg U nivers 20 mg 3-08 by mouth ity of capsule 16:27: daily. [address] NAPROXEN 2021-0 Yes 1{tbl} Take 1 Unive rs ORAL 3-08 tablet by ity of 16:27: mouth. [address] DULoxetine 2021-0 Yes 20mg Take 20 mg U nivers 20 mg 3-08 by mouth ity of capsule 16:27: daily. [address] Branch tiZANidine 2021-0 Yes 4mg Take 4 mg Un leonel 4 mg 3-08 by mouth 3 ity of capsule 16:27: (three) [place] [address] times Medical daily. Branch NAPROXEN 2021-0 Yes 1{tbl} Take 1 Unive rs ORAL 3-08 tablet by ity of 16:27: mouth. [address] DULoxetine 2021-0 Yes 20mg Take 20 mg U nivers 20 mg 3-08 by mouth ity of capsule 16:27: daily. [address] Branch tiZANidine 2021-0 Yes 4mg Take 4 mg Un leonel 4 mg 3-08 by mouth 3 ity of capsule 16:27: (three) [place] [address] times Medical daily. Branch ibuprofen 2021-0 Yes [id number] 400mg Take 2 U nivers (MOTRIN IB) 3-08 tablets by it y of 200 mg 00:00: mouth [place] tablet 00 every 6 Medical (six) Branch hours as needed for Pain (scale 1-3). phenazopyri 2021-0 Yes [id number] 100mg Take 1 Univers dine 100 mg 3-08 tablet by ity of tablet 00:00: mouth 3 [place] 00 (three) Medical times Branch daily as needed (Bladder Pain). ibuprofen 202-0 Yes [id number] 400mg Take 2 U nivers (MOTRIN IB) 3-08 tablets by it y of 200 mg 00:00: mouth [place] tablet 00 every 6 Medical (six) Branch hours as needed for Pain (scale 1-3). phenazopyri 202-0 Yes [id number] 100mg Take 1 Univers dine 100 mg 3-08 tablet by ity of tablet 00:00: mouth 3 [place] 00 (three) Medical times Branch daily as needed (Bladder Pain). ibuprofen 2021-0 Yes [id number] 400mg Take 2 U nivers (MOTRIN IB) 3-08 tablets by it y of 200 mg 00:00: mouth [place] tablet 00 every 6 Medical (six) Branch hours as needed for Pain (scale 1-3). phenazopyri 2021-0 Yes [id number] 100mg Take 1 Univers dine 100 mg 3-08 tablet by ity of tablet 00:00: mouth 3 [place] 00 (three) Medical times Branch daily as needed (Bladder Pain). ibuprofen 2021-0 Yes [id number] 400mg Take 2 U nivers (MOTRIN IB) 3-08 tablets by it y of 200 mg 00:00: mouth [place] tablet 00 every 6 Medical (six) Branch hours as needed for Pain (scale 1-3). phenazopyri 2021-0 Yes [id number] 100mg Take 1 Univers dine 100 mg 3-08 tablet by ity of tablet 00:00: mouth 3 [place] 00 (three) Medical times Branch daily as needed (Bladder Pain). ibuprofen 2021-0 Yes [id number] 400mg Take 2 U nivers (MOTRIN IB) 3-08 tablets by it y of 200 mg 00:00: mouth [place] tablet 00 every 6 Medical (six) Branch hours as needed for Pain (scale 1-3). phenazopyri 2021-0 Yes [id number] 100mg Take 1 Univers dine 100 mg 3-08 tablet by ity of tablet 00:00: mouth 3 [place] 00 (three) Medical times Branch daily as needed (Bladder Pain). ibuprofen 2021-0 Yes [id number] 400mg Take 2 U nivers (MOTRIN IB) 3-08 tablets by it y of 200 mg 00:00: mouth [place] tablet 00 every 6 Medical (six) Branch hours as needed for Pain (scale 1-3). phenazopyri 2022-0 Yes [id number] 100mg Take 1 Univers dine 100 mg 3-08 tablet by ity of tablet 00:00: mouth 3 [place] 00 (three) Medical times Branch daily as needed (Bladder Pain). ibuprofen 2021-0 Yes [id number] 400mg Take 2 U nivers (MOTRIN IB) 3-08 tablets by it y of 200 mg 00:00: mouth [place] tablet 00 every 6 Medical (six) Branch hours as needed for Pain (scale 1-3). phenazopyri Yes [id number] 100mg Take 1 Univers dine 100 mg 3-08 tablet by ity of tablet 00:00: mouth 3 [place] 00 (three) Medical times Branch daily as needed (Bladder Pain). ibuprofen Yes [id number] 400mg Take 2 U nivers (MOTRIN IB) 3-08 tablets by it y of 200 mg 00:00: mouth [place] tablet 00 every 6 Medical (six) Branch hours as needed for Pain (scale 1-3). phenazopyri Yes [id number] 100mg Take 1 Univers dine 100 mg 3-08 tablet by ity of tablet 00:00: mouth 3 [place] 00 (three) Medical times Branch daily as needed (Bladder Pain). acetaminoph 2022- Yes [id number] 650mg Take 2 Univers en 325 mg 3-08 03-09 tablets by ity of tablet 00:00: 05:59 mouth [place] 00 :00 every 6 Medical (six) Branch hours as needed for Pain (scale 1-3). acetaminoph 2022- Yes [id number] 650mg Take 2 Univers en 325 mg 3-08 03-09 tablets by ity of tablet 00:00: 05:59 mouth [place] 00 :00 every 6 Medical (six) Branch hours as needed for Pain (scale 1-3). acetaminoph 2022- Yes [id number] 650mg Take 2 Univers en 325 mg 3-08 03-09 tablets by ity of tablet 00:00: 05:59 mouth [place] 00 :00 every 6 Medical (six) Branch hours as needed for Pain (scale 1-3). acetaminoph 2022- Yes [id number] 650mg Take 2 Univers en 325 mg 3-08 03-09 tablets by ity of tablet 00:00: 05:59 mouth [place] 00 :00 every 6 Medical (six) Branch hours as needed for Pain (scale 1-3). acetaminoph 2022- Yes [id number] 650mg Take 2 Univers en 325 mg 3-08 03-09 tablets by ity of tablet 00:00: 05:59 mouth [place] 00 :00 every 6 Medical (six) Branch hours as needed for Pain (scale 1-3). acetaminoph 2022- Yes [id number] 650mg Take 2 Univers en 325 mg 10-13-09 tablets by ity of tablet 00:00: 05:59 mouth [place] 00 :00 every 6 Medical (six) Branch hours as needed for Pain (scale 1-3). acetaminoph 2022- Yes [id number] 650mg Take 2 Univers en 325 mg 10-13- tablets by ity of tablet 00:00: 05:59 mouth [place] 00 :00 every 6 Medical (six) Branch hours as needed for Pain (scale 1-3). acetaminoph 2022- Yes [id number] 650mg Take 2 Univers en 325 mg 10-13- tablets by ity of tablet 00:00: 05:59 mouth [place] 00 :00 every 6 Medical (six) Branch hours as needed for Pain (scale 1-3). oxybutynin 2021- Yes [id number] 5mg Take 1 Univers chloride 5 10-13 tablet by ity of mg tablet 00:00: 04:59 mouth 3 [place] 00 :00 (three) Medical times Branch daily as needed for Bladder spasms for up to 14 days. For bladder spasms or stent pain. tamsulosin 2021- Yes [id number] .4mg Take 1 Univers 0.4 mg 24 10-13 capsule by ity of hr capsule 00:00: 04:59 mouth [place] 00 :00 daily for Medical 14 days. Branch oxybutynin 2021- Yes [id number] 5mg Take 1 Univers chloride 5 10-13 tablet by ity of mg tablet 00:00: 04:59 mouth 3 [place] 00 :00 (three) Medical times Branch daily as needed for Bladder spasms for up to 14 days. For bladder spasms or stent pain. tamsulosin 2021- Yes [id number] .4mg Take 1 Univers 0.4 mg 24 10-13 capsule by ity of hr capsule 00:00: 04:59 mouth [place] 00 :00 daily for Medical 14 days. Branch oxybutynin 2021- Yes [id number] 5mg Take 1 Univers chloride 5 3-08 03-23 tablet by ity of mg tablet 00:00: 04:59 mouth 3 [place] 00 :00 (three) Medical times Branch daily as needed for Bladder spasms for up to 14 days. For bladder spasms or stent pain. tamsulosin 2021- Yes [id number] .4mg Take 1 Univers 0.4 mg 24 3-23 capsule by ity of hr capsule 00:00: 04:59 mouth [place] 00 :00 daily for Medical 14 days. Branch oxybutynin 2021- Yes [id number] 5mg Take 1 Univers chloride 5 10-13- tablet by ity of mg tablet 00:00: 04:59 mouth 3 [place] 00 :00 (three) Medical times Branch daily as needed for Bladder spasms for up to 14 days. For bladder spasms or stent pain. tamsulosin 2021- Yes [id number] .4mg Take 1 Univers 0.4 mg 24 10-13 capsule by ity of hr capsule 00:00: 04:59 mouth [place] 00 :00 daily for Medical 14 days. Branch oxybutynin 2021- Yes [id number] 5mg Take 1 Univers chloride 5 10-13 tablet by ity of mg tablet 00:00: 04:59 mouth 3 [place] 00 :00 (three) Medical times Branch daily as needed for Bladder spasms for up to 14 days. For bladder spasms or stent pain. tamsulosin 2021- Yes [id number] .4mg Take 1 Univers 0.4 mg 24 10-13 capsule by ity of hr capsule 00:00: 04:59 mouth [place] 00 :00 daily for Medical 14 days. Branch oxybutynin 2021- Yes [id number] 5mg Take 1 Univers chloride 5 10-13 tablet by ity of mg tablet 00:00: 04:59 mouth 3 [place] 00 :00 (three) Medical times Branch daily as needed for Bladder spasms for up to 14 days. For bladder spasms or stent pain. tamsulosin 2021- Yes [id number] .4mg Take 1 Univers 0.4 mg 24 3- capsule by ity of hr capsule 00:00: 04:59 mouth [place] 00 :00 daily for Medical 14 days. Branch oxybutynin 2021- Yes [id number] 5mg Take 1 Univers chloride 5 10-13 tablet by ity of mg tablet 00:00: 04:59 mouth 3 [place] 00 :00 (three) Medical times [place] daily as needed for Bladder spasms for up to 14 days. For bladder spasms or stent pain. tamsulosin 2021- Yes [id number] .4mg Take 1 Univers 0.4 mg 24 10-13 capsule by ity of hr capsule 00:00: 04:59 mouth [place] 00 :00 daily for Medical 14 days. Branch oxybutynin 2021- Yes [id number] 5mg Take 1 Univers chloride 5 10-13 tablet by ity of mg tablet 00:00: 04:59 mouth 3 [place] 00 :00 (three) Medical times [place] daily as needed for Bladder spasms for up to 14 days. For bladder spasms or stent pain. tamsulosin 2021- Yes [id number] .4mg Take 1 Univers 0.4 mg 24 10-13 capsule by ity of hr capsule 00:00: 04:59 mouth [place] 00 :00 daily for Medical 14 days. [place] NAPROXEN 0 Yes 1{tbl} Take 1 Unive rs ORAL 3-07 tablet by ity of 14:27: mouth. [address] DULoxetine 0 Yes 20mg Take 20 mg U nivers 20 mg 3-07 by mouth ity of capsule 14:27: daily. [address] tiZANidine 2021-0 Yes 4mg Take 4 mg Un leonel 4 mg 3-07 by mouth 3 ity of capsule 14:27: (three) [place] [address] times [facility] daily. [place] NAPROXEN 0 Yes 1{tbl} Take 1 Unive rs ORAL 3-07 tablet by ity of 14:27: mouth. [address] DULoxetine 2021-0 Yes 20mg Take 20 mg U nivers 20 mg 3-07 by mouth ity of capsule 14:27: daily. [address] tiZANidine 2021-0 Yes 4mg Take 4 mg Un leonel 4 mg 3-07 by mouth 3 ity of capsule 14:27: (three) [place] [address] times Medical daily. Branch NAPROXEN 2-0 Yes 1{tbl} Take 1 Unive rs ORAL 3-07 tablet by ity of 14:27: mouth. [address] Branch DULoxetine 2-0 Yes 20mg Take 20 mg U nivers 20 mg 3-07 by mouth ity of capsule 14:27: daily. [address] Branch tiZANidine 2-0 Yes 4mg Take 4 mg Un leonel 4 mg 3-07 by mouth 3 ity of capsule 14:27: (three) [place] [address] times Medical daily. Branch NAPROXEN 2-0 Yes 1{tbl} Take 1 Unive rs ORAL 3-07 tablet by ity of 14:27: mouth. [address] Branch DULoxetine 2021-0 Yes 20mg Take 20 mg U nivers 20 mg 3-07 by mouth ity of capsule 14:27: daily. [address] Branch tiZANidine 2021-0 Yes 4mg Take 4 mg Un leonel 4 mg 3-07 by mouth 3 ity of capsule 14:27: (three) [address] Medical daily. Branch DULoxetine 2-0 Yes 20mg Take 20 mg U nivers 20 mg 3-07 by mouth ity of capsule 08:32: daily. [address] Branch DULoxetine 2-0 Yes 20mg Take 20 mg U nivers 20 mg 3-07 by mouth ity of capsule 08:32: daily. [address] Branch DULoxetine 2-0 Yes 20mg Take 20 mg U nivers 20 mg 3-07 by mouth ity of capsule 08:32: daily. [address] DULoxetine 2-0 Yes 20mg Take 20 mg U nivers 20 mg 3-07 by mouth ity of capsule 08:32: daily. [address] Branch DULoxetine 2-0 Yes 20mg Take 20 mg U nivers 20 mg 3-07 by mouth ity of capsule 08:32: daily. [address] Branch sulfamethox 2022-0 Yes [id number] 1{tbl} Take 1 Univers azole-trime 3-07 tablet by ity of thoprim 00:00: mouth 2 [place] (BACTRIM 00 (two) Medical DS) 800-160 times Branch mg per daily. tablet sulfamethox 2022-0 Yes [id number] 1{tbl} Take 1 Univers azole-trime 3-07 tablet by ity of thoprim 00:00: mouth 2 [place] (BACTRIM 00 (two) Medical DS) 800-160 times Branch mg per daily. tablet sulfamethox 2022-0 Yes [id number] 1{tbl} Take 1 Univers azole-trime 3-07 tablet by ity of thoprim 00:00: mouth 2 [place] (BACTRIM 00 (two) Medical DS) 800-160 times Branch mg per daily. tablet sulfamethox 2022-0 Yes [id number] 1{tbl} Take 1 Univers azole-trime 3-07 tablet by ity of thoprim 00:00: mouth 2 [place] (BACTRIM 00 (two) Medical DS) 800-160 times Branch mg per daily. tablet sulfamethox 2022-0 Yes [id number] 1{tbl} Take 1 Univers azole-trime 3-07 tablet by ity of thoprim 00:00: mouth 2 [place] (BACTRIM 00 (two) Medical DS) 800-160 times Branch mg per daily. tablet sulfamethox 2022-0 Yes [id number] 1{tbl} Take 1 Univers azole-trime 3-07 tablet by ity of thoprim 00:00: mouth 2 [place] (BACTRIM 00 (two) Medical DS) 800-160 times Branch mg per daily. tablet sulfamethox 2022-0 Yes [id number] 1{tbl} Take 1 Univers azole-trime 3-07 tablet by ity of thoprim 00:00: mouth 2 [place] (BACTRIM 00 (two) Medical DS) 800-160 times Branch mg per daily. tablet sulfamethox 2022-0 Yes [id number] 1{tbl} Take 1 Univers azole-trime 3-07 tablet by [facility] of thoprim 00:00: mouth 2 [place] (BACTRIM 00 (two) Medical DS) 800-160 times Branch mg per daily. tablet sulfamethox 2022-0 Yes [id number] 1{tbl} Take 1 [facility] azole-trime 3-07 tablet by ity of thoprim 00:00: mouth 2 [place] (BACTRIM 00 (two) Medical DS) 800-160 times Branch mg per daily. tablet sulfamethox 2022-0 Yes [id number] 1{tbl} Take 1 [facility] azole-trime 3-07 tablet by ity of thoprim 00:00: mouth 2 [place] (BACTRIM 00 (two) Medical DS) 800-160 times Branch mg per daily. tablet sulfamethox 2022-0 Yes [id number] 1{tbl} Take 1 [facility] azole-trime 3-07 tablet by ity of thoprim 00:00: mouth 2 [place] (BACTRIM 00 (two) Medical DS) 800-160 times Branch mg per daily. tablet sulfamethox 2022-0 Yes [id number] 1{tbl} Take 1 [facility] azole-trime 3-07 tablet by ity of thoprim 00:00: mouth 2 [place] (BACTRIM 00 (two) Medical DS) 800-160 times Branch mg per daily. tablet sulfamethox 2022-0 Yes [id number] 1{tbl} Take 1 [facility] azole-trime 3-07 tablet by ity of thoprim 00:00: mouth 2 [place] (BACTRIM 00 (two) Medical DS) 800-160 times Branch mg per daily. tablet tamsulosin 2021-0 Yes [id number] .4mg Take 1 [facility] (FLOMAX) 2-28 capsule by ity o f 0.4 mg 24 00:00: mouth [place] hr capsule 00 daily. Medical Branch tamsulosin 2021-0 Yes [id number] .4mg Take 1 [facility] (FLOMAX) 2-28 capsule by ity o f 0.4 mg 24 00:00: mouth [place] hr capsule 00 daily. Medical [facility] tamsulosin 2021-0 Yes [id number] .4mg Take 1 [facility] (FLOMAX) 2-28 capsule by ity o f 0.4 mg 24 00:00: mouth [place] hr capsule 00 daily. [facility] tamsulosin 2021-0 Yes [id number] .4mg Take 1 [facility] (FLOMAX) 2-28 capsule by ity o f 0.4 mg 24 00:00: mouth [place] hr capsule 00 daily. [facility] tamsulosin 2021-0 Yes [id number] .4mg Take 1 [facility] (FLOMAX) 2-28 capsule by ity o f 0.4 mg 24 00:00: mouth [place] hr capsule 00 daily. [facility] tamsulosin 2021-0 Yes [id number] .4mg Take 1 [facility] (FLOMAX) 2-28 capsule by ity o f 0.4 mg 24 00:00: mouth [place] hr capsule 00 daily. [facility] tamsulosin 2021-0 Yes [id number] .4mg Take 1 [facility] (FLOMAX) 2-28 capsule by ity o f 0.4 mg 24 00:00: mouth [place] hr capsule 00 daily. [facility] tamsulosin 2021-0 Yes [id number] .4mg Take 1 [facility] (FLOMAX) 2-28 capsule by ity o f 0.4 mg 24 00:00: mouth [place] hr capsule 00 daily. [facility] tamsulosin 0 Yes [id number] .4mg Take 1 [facility] (FLOMAX) 2-28 capsule by ity o f 0.4 mg 24 00:00: mouth [place] hr capsule 00 daily. [facility] tamsulosin 0 Yes [id number] .4mg Take 1 [facility] (FLOMAX) 2-28 capsule by ity o f 0.4 mg 24 00:00: mouth [place] hr capsule 00 daily. [facility] tamsulosin 0 Yes [id number] .4mg Take 1 [facility] (FLOMAX) 2-28 capsule by ity o f 0.4 mg 24 00:00: mouth [place] hr capsule 00 daily. [facility] tamsulosin 0 Yes [id number] .4mg Take 1 [facility] (FLOMAX) 2-28 capsule by ity o f 0.4 mg 24 00:00: mouth [place] hr capsule 00 daily. [facility] tamsulosin 0 Yes [id number] .4mg Take 1 [facility] (FLOMAX) 2-28 capsule by ity o f 0.4 mg 24 00:00: mouth [place] hr capsule 00 daily. [facility] tamsulosin 0 Yes [id number] .4mg Take 1 [facility] (FLOMAX) 2-28 capsule by ity o f 0.4 mg 24 00:00: mouth [place] hr capsule 00 daily. [facility] tamsulosin 2021-0 Yes [id number] .4mg Take 1 [facility] (FLOMAX) 2-28 capsule by ity o f 0.4 mg 24 00:00: mouth [place] hr capsule 00 daily. Medical [facility] tamsulosin 2021-0 Yes [id number] .4mg Take 1 [facility] (FLOMAX) 2-28 capsule by ity o f 0.4 mg 24 00:00: mouth [place] hr capsule 00 daily. Medical [facility] tamsulosin 2021-0 Yes [id number] .4mg Take 1 [facility] (FLOMAX) 2-28 capsule by ity o f 0.4 mg 24 00:00: mouth [place] hr capsule 00 daily. [facility] ketorolac 2-0 Yes [id number] 10mg Take 1 [facility] 10 mg 2-22 tablet by ity of tablet 00:00: mouth [place] 00 every 6 Medical (six) Branch hours as needed for Pain (scale 1-3). ketorolac 2021-0 Yes [id number] 10mg Take 1 [facility] [place] 10 mg 2-22 tablet by ity of tablet 00:00: mouth [place] 00 every 6 Medical (six) Branch hours as needed for Pain (scale 1-3). ketorolac 2021-0 Yes [id number] 10mg Take 1 [facility] [place] 10 mg 2-22 tablet by ity of tablet 00:00: mouth [place] 00 every 6 Medical (six) Branch hours as needed for Pain (scale 1-3). ketorolac 2021-0 Yes [id number] 10mg Take 1 [facility] [place] 10 mg 2-22 tablet by ity of tablet 00:00: mouth [place] 00 every 6 Medical (six) Branch hours as needed for Pain (scale 1-3). ketorolac 2-0 Yes [id number] 10mg Take 1 [facility] [place] 10 mg 2-22 tablet by ity of tablet 00:00: mouth [place] 00 every 6 Medical (six) Branch hours as needed for Pain (scale 1-3). ketorolac 2022-0 Yes [id number] 10mg Take 1 [facility] [place] 10 mg 2-22 tablet by ity of tablet 00:00: mouth [place] 00 every 6 Medical (six) Branch hours as needed for Pain (scale 1-3). ketorolac 2022-0 Yes [id number] 10mg Take 1 [facility] [place] 10 mg 2-22 tablet by ity of tablet 00:00: mouth [place] 00 every 6 Medical (six) Branch hours as needed for Pain (scale 1-3). ketorolac 2022-0 Yes [id number] 10mg Take 1 [facility] [place] 10 mg 2-22 tablet by ity of tablet 00:00: mouth [place] 00 every 6 Medical (six) Branch hours as needed for Pain (scale 1-3). ketorolac 2022-0 Yes [id number] 10mg Take 1 [facility] 10 mg 2-22 tablet by ity of tablet 00:00: mouth [place] 00 every 6 Medical (six) Branch hours as needed for Pain (scale 1-3). ketorolac 2022-0 Yes [id number] 10mg Take 1 Un elonel 10 mg 2-22 tablet by ity of tablet 00:00: mouth [place] 00 every 6 Medical (six) Branch hours as needed for Pain (scale 1-3). ketorolac 2022-0 Yes [id number] 10mg Take 1 [facility] [place] 10 mg 2-22 tablet by ity of tablet 00:00: mouth [place] 00 every 6 Medical (six) Branch hours as needed for Pain (scale 1-3). ketorolac 2022-0 Yes [id number] 10mg Take 1 [facility] [place] 10 mg 2-22 tablet by ity of tablet 00:00: mouth [place] 00 every 6 Medical (six) Branch hours as needed for Pain (scale 1-3). ketorolac 2022-0 Yes [id number] 10mg Take 1 [facility] [place] 10 mg 2-22 tablet by ity of tablet 00:00: mouth [place] 00 every 6 Medical (six) Branch hours as needed for Pain (scale 1-3). ketorolac 2022-0 Yes [id number] 10mg Take 1 [facility] [place] 10 mg 2-22 tablet by ity of tablet 00:00: mouth [place] 00 every 6 Medical (six) Branch hours as needed for Pain (scale 1-3). ketorolac 2022-0 Yes [id number] 10mg Take 1 [facility] [place] 10 mg 2-22 tablet by ity of tablet 00:00: mouth [place] 00 every 6 Medical (six) Branch hours as needed for Pain (scale 1-3). ketorolac 2022-0 Yes [id number] 10mg Take 1 [facility] [place] 10 mg 2-22 tablet by ity of tablet 00:00: mouth [place] 00 every 6 Medical (six) Branch hours as needed for Pain (scale 1-3). ketorolac 2022-0 Yes [id number] 10mg Take 1 [facility] [place] 10 mg 2-22 tablet by ity of tablet 00:00: mouth [place] 00 every 6 Medical (six) Branch hours as needed for Pain (scale 1-3). solifenacin 2020-08 Yes [id number] 10mg Take 1 [facility] (VESICARE) 2-17 tablet by ity of 10 mg 00:00: mouth at [place] tablet 00 bedtime. [facility] Branch solifenacin 2020-08 Yes [id number] 10mg Take 1 [facility] (VESICARE) 2-17 tablet by ity of 10 mg 00:00: mouth at [place] tablet 00 bedtime. [facility] solifenacin 2020-08 Yes [id number] 10mg Take 1 [facility] (VESICARE) 2-17 tablet by ity of 10 mg 00:00: mouth at [place] tablet 00 bedtime. [facility] solifenacin 2020-08 Yes [id number] 10mg Take 1 [facility] (VESICARE) 2-17 tablet by ity of 10 mg 00:00: mouth at [place] tablet 00 bedtime. [facility] solifenacin 2020-08 Yes [id number] 10mg Take 1 [facility] (VESICARE) 2-17 tablet by ity of 10 mg 00:00: mouth at [place] tablet 00 bedtime. [facility] solifenacin 2020-08 Yes [id number] 10mg Take 1 [facility] (VESICARE) 2-17 tablet by ity of 10 mg 00:00: mouth at [place] tablet 00 bedtime. [facility] solifenacin 2020-08 Yes [id number] 10mg Take 1 [facility] (VESICARE) 2-17 tablet by ity of 10 mg 00:00: mouth at [place] tablet 00 bedtime. [facility] solifenacin 2020-08 Yes [id number] 10mg Take 1 [facility] (VESICARE) 2-17 tablet by ity of 10 mg 00:00: mouth at [place] tablet 00 bedtime. [facility] solifenacin 2020-08 Yes [id number] 10mg Take 1 [facility] (VESICARE) 2-17 tablet by ity of 10 mg 00:00: mouth at [place] tablet 00 bedtime. [facility] solifenacin 2020-08 Yes [id number] 10mg Take 1 [facility] (VESICARE) 2-17 tablet by ity of 10 mg 00:00: mouth at [place] tablet 00 bedtime. [facility] solifenacin 2020-08 Yes [id number] 10mg Take 1 [facility] (VESICARE) 2-17 tablet by ity of 10 mg 00:00: mouth at [place] tablet 00 bedtime. [facility] solifenacin 2020-08 Yes [id number] 10mg Take 1 [facility] (VESICARE) 2-17 tablet by ity of 10 mg 00:00: mouth at [place] tablet 00 bedtime. [facility] solifenacin 2020-08 Yes [id number] 10mg Take 1 [facility] (VESICARE) 2-17 tablet by ity of 10 mg 00:00: mouth at [place] tablet 00 bedtime. [facility] solifenacin 2020-08 Yes [id number] 10mg Take 1 [facility] (VESICARE) 2-17 tablet by ity of 10 mg 00:00: mouth at [place] tablet 00 bedtime. [facility] solifenacin 2020-08 Yes [id number] 10mg Take 1 [facility] (VESICARE) 2-17 tablet by ity of 10 mg 00:00: mouth at [place] tablet 00 bedtime. [facility] solifenacin 2020-08 Yes [id number] 10mg Take 1 [facility] (VESICARE) 2-17 tablet by ity of 10 mg 00:00: mouth at [place] tablet 00 bedtime. [facility] solifenacin 2020-08 Yes [id number] 10mg Take 1 [facility] (VESICARE) 2-17 tablet by ity of 10 mg 00:00: mouth at [place] tablet 00 bedtime. [facility] NAPROXEN 2020-08 Yes 1{tbl} Take 1 Unive rs ORAL 0-29 tablet by ity of 10:13: mouth. [address] NAPROXEN 2020-08 Yes 1{tbl} Take 1 Unive rs ORAL 0-29 tablet by ity of 10:13: mouth. [address] NAPROXEN 2020-08 Yes 1{tbl} Take 1 Unive rs ORAL 0-29 tablet by ity of 10:13: mouth. [address] NAPROXEN 2020-08 Yes 1{tbl} Take 1 Unive rs ORAL 0-29 tablet by ity of 10:13: mouth. [address] NAPROXEN 2020-08 Yes 1{tbl} Take 1 Unive rs ORAL 0-29 tablet by ity of 10:13: mouth. [address] traMADoL 2019-08 Yes [id number] 50mg Take 1 [facility] (ULTRAM) 50 2-02 tablet by ity of mg tablet 00:00: mouth [place] 00 every 6 Medical (six) Branch hours as needed for Pain (scale 7-10). Indication s: acute pain methocarbam 2019- Yes [id number] 750mg Take 1 [facility] oL 750 mg 2-02 tablet by ity o f tablet 00:00: mouth [place] 00 every 6 Medical (six) Branch hours as needed (MUSCLE SPASM). traMADoL 2019-08 Yes [id number] 50mg Take 1 [facility] (ULTRAM) 50 2-02 tablet by ity of mg tablet 00:00: mouth [place] 00 every 6 Medical (six) Branch hours as needed for Pain (scale 7-10). Indication s: acute pain methocarbam 2019-08 Yes [id number] 750mg Take 1 [facility] oL 750 mg 2-02 tablet by ity o f tablet 00:00: mouth [place] 00 every 6 Medical (six) Branch hours as needed (MUSCLE SPASM). traMADoL 2019-08 Yes [id number] 50mg Take 1 [facility] (ULTRAM) 50 2-02 tablet by ity of mg tablet 00:00: mouth [place] 00 every 6 Medical (six) Branch hours as needed for Pain (scale 7-10). Indication s: acute pain methocarbam 2019-08 Yes [id number] 750mg Take 1 [facility] oL 750 mg 2-02 tablet by ity o f tablet 00:00: mouth [place] 00 every 6 Medical (six) Branch hours as needed (MUSCLE SPASM). traMADoL 2019-08 Yes [id number] 50mg Take 1 [facility] (ULTRAM) 50 2-02 tablet by ity of mg tablet 00:00: mouth [place] 00 every 6 Medical (six) Branch hours as needed for Pain (scale 7-10). Indication s: acute pain methocarbam 2019- Yes [id number] 750mg Take 1 [facility] oL 750 mg 2-02 tablet by ity o f tablet 00:00: mouth [place] 00 every 6 Medical (six) Branch hours as needed (MUSCLE SPASM). traMADoL 2019- Yes [id number] 50mg Take 1 [facility] (ULTRAM) 50 2-02 tablet by ity of mg tablet 00:00: mouth [place] 00 every 6 Medical (six) Branch hours as needed for Pain (scale 7-10). Indication s: acute pain methocarbam 2019- Yes [id number] 750mg Take 1 [facility] oL 750 mg 2-02 tablet by ity o f tablet 00:00: mouth [place] 00 every 6 Medical (six) Branch hours as needed (MUSCLE SPASM). traMADoL 2019-08 Yes [id number] 50mg Take 1 [facility] (ULTRAM) 50 2-02 tablet by ity of mg tablet 00:00: mouth [place] 00 every 6 Medical (six) Branch hours as needed for Pain (scale 7-10). Indication s: acute pain methocarbam 2019-08 Yes [id number] 750mg Take 1 [facility] oL 750 mg 2-02 tablet by ity o f tablet 00:00: mouth [place] 00 every 6 Medical (six) Branch hours as needed (MUSCLE SPASM). traMADoL 2019-08 Yes [id number] 50mg Take 1 [facility] (ULTRAM) 50 2-02 tablet by ity of mg tablet 00:00: mouth [place] 00 every 6 Medical (six) Branch hours as needed for Pain (scale 7-10). Indication s: acute pain methocarbam 2019-08 Yes [id number] 750mg Take 1 [facility] oL 750 mg 2-02 tablet by ity o f tablet 00:00: mouth [place] 00 every 6 Medical (six) Branch hours as needed (MUSCLE SPASM). traMADoL 2019-08 Yes [id number] 50mg Take 1 [facility] (ULTRAM) 50 2-02 tablet by ity of mg tablet 00:00: mouth [place] 00 every 6 Medical (six) Branch hours as needed for Pain (scale 7-10). Indication s: acute pain methocarbam 2019-08 Yes [id number] 750mg Take 1 [facility] oL 750 mg 2-02 tablet by ity o f tablet 00:00: mouth [place] 00 every 6 Medical (six) Branch hours as needed (MUSCLE SPASM). traMADoL 2019-08 Yes [id number] 50mg Take 1 [facility] (ULTRAM) 50 2-02 tablet by ity of mg tablet 00:00: mouth [place] 00 every 6 Medical (six) Branch hours as needed for Pain (scale 7-10). Indication s: acute pain methocarbam 2019-08 Yes [id number] 750mg Take 1 [facility] oL 750 mg 2-02 tablet by ity o f tablet 00:00: mouth [place] 00 every 6 Medical (six) Branch hours as needed (MUSCLE SPASM). traMADoL 2019-08 Yes [id number] 50mg Take 1 [facility] (ULTRAM) 50 2-02 tablet by ity of mg tablet 00:00: mouth [place] 00 every 6 Medical (six) Branch hours as needed for Pain (scale 7-10). Indication s: acute pain methocarbam 2019- Yes [id number] 750mg Take 1 [facility] oL 750 mg 2-02 tablet by ity o f tablet 00:00: mouth [place] 00 every 6 Medical (six) Branch hours as needed (MUSCLE SPASM). traMADoL 2019-08 Yes [id number] 50mg Take 1 [facility] (ULTRAM) 50 2-02 tablet by ity of mg tablet 00:00: mouth [place] 00 every 6 Medical (six) Branch hours as needed for Pain (scale 7-10). Indication s: acute pain methocarbam 2019-08 Yes [id number] 750mg Take 1 [facility] oL 750 mg 2-02 tablet by ity o f tablet 00:00: mouth [place] 00 every 6 Medical (six) Branch hours as needed (MUSCLE SPASM). traMADoL 2019-08 Yes [id number] 50mg Take 1 [facility] (ULTRAM) 50 2-02 tablet by ity of mg tablet 00:00: mouth [place] 00 every 6 Medical (six) Branch hours as needed for Pain (scale 7-10). Indication s: acute pain methocarbam 2019-08 Yes [id number] 750mg Take 1 [facility] oL 750 mg 2-02 tablet by ity o f tablet 00:00: mouth [place] 00 every 6 Medical (six) Branch hours as needed (MUSCLE SPASM). traMADoL 2019-08 Yes [id number] 50mg Take 1 [facility] (ULTRAM) 50 2-02 tablet by ity of mg tablet 00:00: mouth [place] 00 every 6 Medical (six) Branch hours as needed for Pain (scale 7-10). Indication s: acute pain methocarbam 2019-08 Yes [id number] 750mg Take 1 [facility] oL 750 mg 2-02 tablet by ity o f tablet 00:00: mouth [place] 00 every 6 Medical (six) Branch hours as needed (MUSCLE SPASM). traMADoL 2019-08 Yes [id number] 50mg Take 1 [facility] (ULTRAM) 50 2-02 tablet by ity of mg tablet 00:00: mouth [place] 00 every 6 Medical (six) Branch hours as needed for Pain (scale 7-10). Indication s: acute pain methocarbam 2019- Yes [id number] 750mg Take 1 [facility] oL 750 mg 2-02 tablet by ity o f tablet 00:00: mouth [place] 00 every 6 Medical (six) Branch hours as needed (MUSCLE SPASM). traMADoL 2019-08 Yes [id number] 50mg Take 1 [facility] (ULTRAM) 50 2-02 tablet by ity of mg tablet 00:00: mouth [place] 00 every 6 Medical (six) Branch hours as needed for Pain (scale 7-10). Indication s: acute pain methocarbam 2019-08 Yes [id number] 750mg Take 1 [facility] oL 750 mg 2-02 tablet by ity o f tablet 00:00: mouth [place] 00 every 6 Medical (six) Branch hours as needed (MUSCLE SPASM). traMADoL 2019-08 Yes [id number] 50mg Take 1 [facility] (ULTRAM) 50 2-02 tablet by ity of mg tablet 00:00: mouth [place] 00 every 6 Medical (six) Branch hours as needed for Pain (scale 7-10). Indication s: acute pain methocarbam 2019-08 Yes [id number] 750mg Take 1 [facility] oL 750 mg 2-02 tablet by ity o f tablet 00:00: mouth [place] 00 every 6 Medical (six) Branch hours as needed (MUSCLE SPASM). traMADoL 2019-08 Yes [id number] 50mg Take 1 [facility] (ULTRAM) 50 2-02 tablet by ity of mg tablet 00:00: mouth [place] 00 every 6 Medical (six) Branch hours as needed for Pain (scale 7-10). Indication s: acute pain methocarbam 2019-08 Yes [id number] 750mg Take 1 [facility] oL 750 mg 2-02 tablet by ity o f tablet 00:00: mouth [place] 00 every 6 Medical (six) Branch hours as needed (MUSCLE SPASM). cetirizine 2019-0 Yes [id number] 10mg Take 1 [facility] 10 mg 3-16 tablet by ity of tablet 00:00: mouth [place] 00 daily. Medical Branch fluticasone 2019-0 Yes [id number] 2{spray Use 2 [facility] propionate 3-16 } Sprays in ity of 50 00:00: each [place] mcg/actuati 00 nostril Medic al on nasal daily. Branch spray cetirizine 2019-0 Yes [id number] 10mg Take 1 [facility] 10 mg 3-16 tablet by ity of tablet 00:00: mouth [place] 00 daily. Medical Branch fluticasone 2019-0 Yes [id number] 2{spray Use 2 [facility] propionate 3-16 } Sprays in ity of 50 00:00: each [place] mcg/actuati 00 nostril Medic al on nasal daily. Branch spray cetirizine 2020-0 Yes [id number] 10mg Take 1 [facility] 10 mg 3-16 tablet by ity of tablet 00:00: mouth [place] 00 daily. Medical Branch fluticasone 2020-0 Yes [id number] 2{spray Use 2 [facility] propionate 3-16 } Sprays in ity of 50 00:00: each [place] mcg/actuati 00 nostril Medic al on nasal daily. Branch spray cetirizine 2020-0 Yes [id number] 10mg Take 1 [facility] 10 mg 3-16 tablet by ity of tablet 00:00: mouth [place] 00 daily. Medical Branch fluticasone 2020-0 Yes [id number] 2{spray Use 2 [facility] propionate 3-16 } Sprays in ity of 50 00:00: each [place] mcg/actuati 00 nostril Medic al on nasal daily. Branch spray cetirizine 2020-0 Yes [id number] 10mg Take 1 [facility] 10 mg 3-16 tablet by ity of tablet 00:00: mouth [place] 00 daily. Medical Branch fluticasone 2020-0 Yes [id number] 2{spray Use 2 [facility] propionate 3-16 } Sprays in ity of 50 00:00: each [place] mcg/actuati 00 nostril Medic al on nasal daily. Branch spray cetirizine 2020-0 Yes [id number] 10mg Take 1 [facility] 10 mg 3-16 tablet by ity of tablet 00:00: mouth [place] 00 daily. Medical Branch fluticasone 2020-0 Yes [id number] 2{spray Use 2 [facility] propionate 3-16 } Sprays in ity of 50 00:00: each [place] mcg/actuati 00 nostril Medic al on nasal daily. Branch spray cetirizine 2020-0 Yes [id number] 10mg Take 1 [facility] 10 mg 3-16 tablet by ity of tablet 00:00: mouth [place] 00 daily. Medical Branch fluticasone 2020-0 Yes [id number] 2{spray Use 2 [facility] propionate 3-16 } Sprays in ity of 50 00:00: each [place] mcg/actuati 00 nostril Medic al on nasal daily. Branch spray cetirizine 2020-0 Yes [id number] 10mg Take 1 [facility] 10 mg 3-16 tablet by ity of tablet 00:00: mouth [place] 00 daily. Medical Branch fluticasone 2020-0 Yes [id number] 2{spray Use 2 [facility] propionate 3-16 } Sprays in ity of 50 00:00: each [place] mcg/actuati 00 nostril Medic al on nasal daily. Branch spray cetirizine 2020-0 Yes [id number] 10mg Take 1 [facility] 10 mg 3-16 tablet by ity of tablet 00:00: mouth [place] 00 daily. Medical Branch fluticasone 2020-0 Yes [id number] 2{spray Use 2 [facility] propionate 3-16 } Sprays in ity of 50 00:00: each [place] mcg/actuati 00 nostril Medic al on nasal daily. Branch spray cetirizine 2020-0 Yes [id number] 10mg Take 1 [facility] 10 mg 3-16 tablet by ity of tablet 00:00: mouth [place] 00 daily. Medical Branch fluticasone 2020-0 Yes [id number] 2{spray Use 2 [facility] propionate 3-16 } Sprays in ity of 50 00:00: each [place] mcg/actuati 00 nostril Medic al on nasal daily. Branch spray cetirizine 2020-0 Yes [id number] 10mg Take 1 [facility] 10 mg 3-16 tablet by ity of tablet 00:00: mouth [place] 00 daily. Medical Branch fluticasone 2020-0 Yes [id number] 2{spray Use 2 [facility] propionate 3-16 } Sprays in ity of 50 00:00: each [place] mcg/actuati 00 nostril Medic al on nasal daily. Branch spray cetirizine 2020-0 Yes [id number] 10mg Take 1 [facility] 10 mg 3-16 tablet by ity of tablet 00:00: mouth [place] 00 daily. Medical Branch fluticasone 2020-0 Yes [id number] 2{spray Use 2 [facility] propionate 3-16 } Sprays in ity of 50 00:00: each [place] mcg/actuati 00 nostril Medic al on nasal daily. Branch spray cetirizine 2020-0 Yes [id number] 10mg Take 1 [facility] 10 mg 3-16 tablet by ity of tablet 00:00: mouth [place] 00 daily. Medical Branch fluticasone 2020-0 Yes [id number] 2{spray Use 2 [facility] propionate 3-16 } Sprays in ity of 50 00:00: each [place] mcg/actuati 00 nostril Medic al on nasal daily. Branch spray cetirizine 2020-0 Yes [id number] 10mg Take 1 [facility] 10 mg 3-16 tablet by ity of tablet 00:00: mouth [place] 00 daily. Medical Branch fluticasone 2020-0 Yes [id number] 2{spray Use 2 [facility] propionate 3-16 } Sprays in ity of 50 00:00: each [place] mcg/actuati 00 nostril Medic al on nasal daily. Branch spray cetirizine 2020-0 Yes [id number] 10mg Take 1 [facility] 10 mg 3-16 tablet by ity of tablet 00:00: mouth [place] 00 daily. Medical Branch fluticasone 2020-0 Yes [id number] 2{spray Use 2 [facility] propionate 3-16 } Sprays in ity of 50 00:00: each [place] mcg/actuati 00 nostril Medic al on nasal daily. Branch spray cetirizine 2020-0 Yes [id number] 10mg Take 1 [facility] 10 mg 3-16 tablet by ity of tablet 00:00: mouth [place] 00 daily. Medical Branch fluticasone 2020-0 Yes [id number] 2{spray Use 2 [facility] propionate 3-16 } Sprays in ity of 50 00:00: each [place] mcg/actuati 00 nostril Medic al on nasal daily. Branch spray cetirizine 2020-0 Yes [id number] 10mg Take 1 [facility] 10 mg 3-16 tablet by ity of tablet 00:00: mouth [place] 00 daily. Medical Branch fluticasone 2020-0 Yes [id number] 2{spray Use 2 [facility] propionate 3-16 } Sprays in ity of 50 00:00: each [place] mcg/actuati 00 nostril Medic al on nasal daily. Branch spray methocarbam 2018- Yes 500 mg = 1 [facility] ol 500 mg 3-06 tab, PO, l oral tablet 15:24: Q8H, X 5 He rmann day, # 15 tab, 0 Refill(s) Levetiracet 2018-0 Yes 500 mg = 1 [facility] am 500 MG 3-06 tab, PO, l Oral Tablet 15:24: Q12H, # 6 H ermann 00 tab, 0 Refill(s) Albuterol 2019- Yes 3 mL, NEB, Me moria 0.833 MG/ML 3-06 RQ4H, PRN l / 15:24: Wheezing, [place] Ipratropium 00 0 [place] Refill(s) 0.167 MG/ML Inhalant Solution Acetaminoph Yes [...] 3 mL, NEB, Me moria 0.833 MG/ML 306 RQ4H, PRN l / 15:24: Wheezing, [place] Ipratropium 00 0 [place] Refill(s) 0.167 MG/ML Inhalant Solution Acetaminoph Yes 100.4 F, M emoria en 325 MG 3-06 0 l Oral Tablet 15:24: Refill(s) H Bisacodyl No Notes: Memori a 3-05 (Same As: l 20:47: Dulcolax, [place] 00 Bisco-Lax) Bisacodyl No Notes: Mem[facility] a 3-05 (Same As: l 20:47: Dulcolax, [place] 00 Bisco-Lax) Tramadol No Notes: Not Mem oria 3-05 to exceed l 19:56: 400mg/day. [place] 00 (Same As: Ultram) Tramadol No Notes: Not Mem [facility] 3-05 to exceed l 19:56: 400mg/day. 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 (Same as: Miralax) Miralax No Notes: [facility] 3-04 Dissolve l 15:17: in 8 oz of [place] 00 water or juice. 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 [place] 00 (Same As: Ultram) Tramadol No Notes: Not Mem oria 3-04 to exceed l 04:24: 400mg/day. Carlos 00 (Same As: Ultram) Keppra No Notes: Memoria 3-04 (Same l 03:00: as:Keppra) [place] 00 Saline No Notes: Memoria Flush 0.9% 3-04 (Same as: l 03:00: BD [place] 00 Posiflush) Levetiracet No Notes: Memoria am 3-04 MEDICATION l 03:00: WASTE Product Size: 500 mg Product Wasted: ___ mg sennosides, No Notes: Edison anny RESIDENTIAL 3-04 (Same as: l 03:00: Senokot) Docusate No 100 mg, 1 Edison anny 3-04 cap, l 03:00: Route: PO, Drug form: CAP, Q12H, Dosing Weight 95.455, kg, Start date: 10/08/18 21:00:00 HEATER OPERATOR, Duration: 30 day, Stop date: 11/07/18 9:00:00 CDT Keppra No Notes: Memoria 3-04 (Same l 03:00: as:Keppra) Saline No Notes: Memoria Flush 0.9% 3-04 (Same as: l 03:00: BD Posiflush) Levetiracet No Notes: Memoria am 3-04 MEDICATION l 03:00: WASTE Product Size: 500 mg Product Wasted: ___ mg sennosides, No Notes: Edison anny RESIDENTIAL 3-04 (Same as: l 03:00: Senokot) Docusate No 100 mg, 1 Edison anny 3-04 cap, l 03:00: Route: PO, Carlos 00 Drug form: CAP, Q12H, Dosing Weight 95.455, kg, Start date: 10/08/18 21:00:00 HEATER OPERATOR, Duration: 30 day, Stop date: 11/07/18 9:00:00 CDT Vancomycin 2019-0 No 2000 mg: Me moria 3-04 infuse l 00:00: over 2.5 [place] 00 hours For adult patients only: Round to nearest 250 mg per Medical Staff approval MEDICATION WASTE Product Size: 1000 mg Product Wasted: ___ mg Vancomycin 2019-0 No 2000 mg: Me moria 3-04 infuse l 00:00: over 2.5 [place] 00 hours For adult patients only: Round to nearest 250 mg per Medical Staff approval MEDICATION WASTE Product Size: 1000 mg Product Wasted: ___ mg Artificial 2019-0 No 2 drp, Memor ia Tears 10-08 Route: l 23:00: BOTH EYES, [place] 00 BID, Drug form: SOLN, Start date: 10/08/18 17:00:00 HEATER OPERATOR, Duration: 30 day, Stop date: 11/07/18 9:00:00 CDT Artificial 2019-0 No 2 drp, Memor ia Tears 10-08 Route: l 23:00: BOTH EYES, [place] 00 BID, Drug form: SOLN, Start date: 10/08/18 17:00:00 HEATER OPERATOR, Duration: 30 day, Stop date: 11/07/18 9:00:00 CDT Vancomycin 2019-0 No 1 gm, Memori a 3-03 Route: IV, l 22:00: Q8H, [place] 00 Dosing Weight 95.455, kg, Start date: 10/08/18 16:00:00 HEATER OPERATOR, Duration: 1 day, Stop date: 10/09/18 8:00:00 HEATER OPERATOR, ABX Indication : Surgical Prophylaxi s Vancomycin 2019-0 No 1 gm, Memori a 3-03 Route: IV, l 22:00: Q8H, [place] 00 Dosing Weight 95.455, kg, Start date: 10/08/18 16:00:00 HEATER OPERATOR, Duration: 1 day, Stop date: 10/09/18 8:00:00 HEATER OPERATOR, ABX Indication : Surgical Prophylaxi s Glucagon 2019-0 No 1 mg, Memoria 3-03 Route: IM, l 20:19: Drug form: [place] 00 PDR/INJ, PRN, Dosing Weight 95.455, kg, PRN Blood Glucose Results, Start date: 10/08/18 14:19:00 HEATER OPERATOR, Duration: 30 day, Stop date: 11/07/18 15:18:00 CDT Dextrose 2019-0 No 25 gm, 50 Edison anny 50% Syringe 3-03 mL, Route: l 20:19: IVP, Drug Form: INJ, Dosing Weight 95.455, kg, PRN, PRN Blood Glucose Results, Start date: 10/08/18 14:19:00 HEATER OPERATOR, Duration: 30 day, Stop date: 11/07/18 15:18:00 [...] Blood Glucose Results, Start date: 10/08/18 14:19:00 HEATER OPERATOR, Duration: 30 day, Stop date: 11/07/18 15:18:00 CDT Dextrose 2019-0 No 25 gm, 50 Edison anny 50% Syringe 3-03 mL, Route: l 20:19: IVP, Drug Form: INJ, Dosing Weight 95.455, kg, PRN, PRN Blood Glucose Results, Start date: 10/08/18 14:19:00 HEATER OPERATOR, Duration: 30 day, Stop date: 11/07/18 15:18:00 CDT Insulin 2019-0 No 60 Memoria regular 3-03 units) l 20:19: WASTE: F/P [place] - Black; E - Municipal Trash Bin Stable for 28 days at room temperatur e Expires in days from ____Date Potassium 2019-0 No Notes: Memori a Chloride -03 (Same as: l 20:18: KCL) Infuse over 2 hours. Calcium 2019-0 No Notes: Memoria Gluconate 3-03 WASTE: F/P l 20:18: - Sink; E [place] 00 - Municipal Trash Bin Magnesium No Notes: Memori a Oxide 3-03 (Same as: l 20:18: Mag-Ox [place] 00 400) Magnesium oxide [id number] g elemental magnesium Dose=____m g magnesium oxide (___mg elemental magnesium) Calcium No Notes: Memoria Carbonate 3-03 (Same As: l 500 MG 20:18: Tums) [place] Chewable 00 Calcium Tablet Carbonate 500 mg = 200 mg elemental calcium Dose = mg calcium carbonate ( mg elemental calcium) potassium No Notes: Memori a phosphate 3-03 (Same as: l 20:18: K [place] 00 Phosphate. ) Do not infuse phosphorou [...] 20:18: Mag-Ox [place] 00 400) Magnesium oxide 888np=263i g elemental magnesium Dose=____m g magnesium oxide (___mg elemental magnesium) Calcium No Notes: Memoria Carbonate 3-03 (Same As: l 500 MG 20:18: Tums) [place] Chewable 00 Calcium Tablet Carbonate 500 mg [...] 3-03 (Same as: l odium 20:18: Phos-NaK) [place] phosphate 00 Each 1.5 250 mg-280 gm pkt has mg-160 mg 250mg oral powder phosphorou for s. Mix reconstitut w/2.5oz ion water and stir. Magnesium No Notes: Memori a Sulfate - WASTE: F/P l 20:18: - Sink; E - Municipal Trash Bin sodium No Notes: Memoria phosphate 3-03 Infuse l 20:18: over 4 [place] 00 hour. Do not infuse phosphorou s [...] PRN Hypertensi on, Start date: 10/08/18 14:13:00 HEATER OPERATOR, Duration: 30 day, Stop date: 11/07/18 14:12:00 CDT Hydralazine 2019-0 No Notes: Edison anny 3-03 (Same as: l 20:13: Apresoline [place] 00 ) Push over 5 minutes Labetalol 2019-0 No 10 mg, 2 Edison anny 3-03 mL, Route: l 20:13: IVP, Drug [place] 00 form: INJ, Q4H, Dosing Weight 95.455, kg, PRN Hypertensi on, Start date: 10/08/18 14:13:00 HEATER OPERATOR, Duration: 30 day, Stop date: 11/07/18 14:12:00 CDT sugammadex 2018-0 No Route: IV, M emoria (ANES) 10-08 Drug form: l 18:30: SOLN, [place] 00 ONCE, Stop date: 10/08/18 12:30:00 HEATER OPERATOR sugammadex 2019-0 No Route: IV, M emoria (ANES) 10-08 Drug form: l 18:30: SOLN, [place] 00 ONCE, Stop date: 10/08/18 12:30:00 HEATER OPERATOR Hydralazine 2019-0 No 10 mg, Edison anny - Route: l 18:18: IVP, [place] 00 Q20Min, Dosing Weight 95.455, kg, PRN Elevated BP, Start date: 10/08/18 12:18:00 HEATER OPERATOR, Duration: 2 doses or times, Stop date: Limited # of times Labetalol 2019-0 No 10 mg, 2 Edison anny 3-03 mL, Route: l 18:18: IVP, Drug form: INJ, Q5Min, Dosing Weight 95.455, kg, PRN Elevated BP, Start date: 10/08/18 12:18:00 HEATER OPERATOR, Duration: 5 doses or times, Stop date: 10/09/18 0:00:00 HEATER OPERATOR Acetaminoph 2019-0 No 1,000 mg, M emoria en - Route: PO, l 18:18: Drug form: [place] 00 TAB, ONCE, Dosing Weight 95.455, kg, PRN Pain Score 1-3, Start date: 10/08/18 12:18:00 HEATER OPERATOR Promethazin 2019-0 No 6.25 mg, Me moria e 10-08 Route: l 18:18: IVPB, [place] 00 ONCE, Dosing Weight 95.455, kg, PRN Nausea & Vomiting, Start date: 10/08/18 12:18:00 HEATER OPERATOR Ondansetron 2019-0 No 4 mg, Memor ia 3-03 Route: l 18:18: IVP, ONCE, Dosing Weight 95.455, kg, PRN Nausea & Vomiting, Start date: 10/08/18 12:18:00 HEATER OPERATOR Dexamethaso 2019-0 No 4 mg, Memor ia ne 3-03 Route: l 18:18: IVP, ONCE, Dosing Weight 95.455, kg, PRN Nausea & Vomiting, Start date: 10/08/18 12:18:00 HEATER OPERATOR Naloxone 2019-0 No 0.4 mg, Memori a 3-03 Route: l 18:18: IVP, [place] 00 Q2MIN, Dosing Weight 95.455, kg, PRN Narcotic Reversal, Start date: 10/08/18 12:18:00 HEATER OPERATOR, Duration: 8 doses or times, Stop date: Limited # of times Flumazenil 2019-0 No 0.2 mg, Edison anny 3-03 Route: l 18:18: IVP, PRN, Dosing Weight 95.455, kg, PRN Benzodiaze pine Reversal, Initial dose, Start date: 10/08/18 12:18:00 HEATER OPERATOR, Duration: 30 day, Stop date: 11/07/18 13:17:00 CDT Hydromorpho 2019-0 No 0.5 mg, Mem oria ne 3-03 Route: l 18:18: IVP, [place] 00 Q5Min, Dosing Weight 95.455, kg, PRN Pain Score 7-10, Start date: 10/08/18 12:18:00 HEATER OPERATOR, Duration: 4 doses or times, Stop date: Limited # of times Hydralazine 2019-0 No 10 mg, Edison anny 3-03 Route: l 18:18: IVP, [place] 00 Q20Min, Dosing Weight 95.455, kg, PRN Elevated BP, Start date: 10/08/18 12:18:00 HEATER OPERATOR, Duration: 2 doses or times, Stop date: Limited # of times Labetalol 2019-0 No 10 mg, 2 Edison anny 3-03 mL, Route: l 18:18: IVP, Drug form: INJ, Q5Min, Dosing Weight 95.455, kg, PRN Elevated BP, Start date: 10/08/18 12:18:00 HEATER OPERATOR, Duration: 5 doses or times, Stop date: 10/09/18 0:00:00 HEATER OPERATOR Acetaminoph 2019-0 No 1,000 mg, M emoria en 10-08 Route: PO, l 18:18: Drug form: [place] 00 TAB, ONCE, Dosing Weight 95.455, kg, PRN Pain Score 1-3, Start date: 10/08/18 12:18:00 HEATER OPERATOR Promethazin 2019-0 No 6.25 mg, Me moria e 10-08 Route: l 18:18: IVPB, ONCE, Dosing Weight 95.455, kg, PRN Nausea & Vomiting, Start date: 10/08/18 12:18:00 HEATER OPERATOR Ondansetron 2019-0 No 4 mg, Memor ia 10-08 Route: l 18:18: IVP, ONCE, Dosing Weight 95.455, kg, PRN Nausea & Vomiting, Start date: 10/08/18 12:18:00 HEATER OPERATOR Dexamethaso 2019-0 No 4 mg, Memor ia ne 10-08 Route: l 18:18: IVP, ONCE, Dosing Weight 95.455, kg, PRN Nausea & Vomiting, Start date: 10/08/18 12:18:00 HEATER OPERATOR Naloxone 2019-0 No 0.4 mg, Memori a 10-08 Route: l 18:18: IVP, Q2MIN, Dosing Weight 95.455, kg, PRN Narcotic Reversal, Start date: 10/08/18 12:18:00 HEATER OPERATOR, Duration: 8 doses or times, Stop date: Limited # of times Flumazenil 2019-0 No 0.2 mg, Edison anny 10-08 Route: l 18:18: IVP, PRN, Dosing Weight 95.455, kg, PRN Benzodiaze pine Reversal, Initial dose, Start date: 10/08/18 12:18:00 HEATER OPERATOR, Duration: 30 day, Stop date: 11/07/18 13:17:00 CDT Hydromorpho 2019-0 No 0.5 mg, Mem oria ne 3- Route: l 18:18: IVP, [place] 00 Q5Min, Dosing Weight 95.455, kg, PRN Pain Score 7-10, Start date: 10/08/18 12:18:00 HEATER OPERATOR, Duration: 4 doses or times, Stop date: Limited # of times sugammadex No Notes: Memor ia 3- (Same as: l 18:00: [place]) sugammadex 2018- No Notes: Memor ia 3- (Same as: l 18:00: [place]) famotidine No Route: IV, M emoria (ANES) 10-08 Drug form: l 17:59: INJ, ONCE, Stop date: 10/08/18 11:59:00 HEATER OPERATOR metoclopram 0 No Route: IV, Memoria anais (ANES) 10-08 Drug form: l 17:59: INJ, ONCE, Stop date: 10/08/18 11:59:00 HEATER OPERATOR ondansetron 2018-0 No Route: IV, Memoria (ANES) 10-08 Drug form: l 17:59: INJ, ONCE, Stop date: 10/08/18 11:59:00 HEATER OPERATOR famotidine No Route: IV, M emoria (ANES) 10-08 Drug form: l 17:59: INJ, ONCE, Stop date: 10/08/18 11:59:00 HEATER OPERATOR metoclopram 0 No Route: IV, Memoria anais (ANES) 10-08 Drug form: l 17:59: INJ, ONCE, Stop date: 10/08/18 11:59:00 HEATER OPERATOR ondansetron 2018-0 No Route: IV, Memoria (ANES) 10-08 Drug form: l 17:59: INJ, ONCE, Stop date: 10/08/18 11:59:00 HEATER OPERATOR phenylephri 2018-0 No Route: IV, Memoria ne (ANES) 10-08 Drug form: l 17:57: INJ, ONCE, Stop date: 10/08/18 11:57:00 HEATER OPERATOR phenylephri 2018-0 No Route: IV, Memoria ne (ANES) 10-08 Drug form: l 17:57: INJ, ONCE, Stop date: 10/08/18 11:57:00 HEATER OPERATOR lidocaine 2019-0 No Route: IV, Me moria (ANES) 10-08 Drug form: l 17:51: INJ, ONCE, Stop date: 10/08/18 11:51:00 HEATER OPERATOR dexamethaso 2019-0 No Route: IV, Memoria ne (ANES) 10-08 Drug form: l 17:51: INJ, ONCE, Stop date: 10/08/18 11:51:00 HEATER OPERATOR propofol 2019-0 No Route: IV, Mem oria (ANES) 10-08 Drug form: l 17:51: INJ, ONCE, Stop date: 10/08/18 11:51:00 HEATER OPERATOR rocuronium 2019-0 No Route: IV, M emoria (ANES) 10-08 Drug form: l 17:51: INJ, ONCE, Stop date: 10/08/18 11:51:00 HEATER OPERATOR levETIRAcet 2018-0 No Route: IV, Memoria am (ANES) 10-08 Drug form: l 17:51: INJ, ONCE, Stop date: 10/08/18 11:51:00 HEATER OPERATOR fentaNYL 2019-0 No Route: IV, Mem oria (ANES) 10-08 Drug form: l 17:51: INJ, ONCE, Stop date: 10/08/18 11:51:00 HEATER OPERATOR lidocaine 2019-0 No Route: IV, Me moria (ANES) 10-08 Drug form: l 17:51: INJ, ONCE, Stop date: 10/08/18 11:51:00 HEATER OPERATOR dexamethaso 2019-0 No Route: IV, Memoria ne (ANES) 10-08 Drug form: l 17:51: INJ, ONCE, Stop date: 10/08/18 11:51:00 HEATER OPERATOR propofol 2019-0 No Route: IV, Mem oria (ANES) 10-08 Drug form: l 17:51: INJ, ONCE, Stop date: 10/08/18 11:51:00 HEATER OPERATOR rocuronium 2019-0 No Route: IV, M emoria (ANES) 10-08 Drug form: l 17:51: INJ, ONCE Stop date: 10/08/18 11:51:00 HEATER OPERATOR levETIRAcet 2019-0 No Route: IV, Memoria am (ANES) 10-08 Drug form: l 17:51: INJ, ONCE Stop date: 10/08/18 11:51:00 HEATER OPERATOR fentaNYL 2019-0 No Route: IV, Mem oria (ANES) 10-08 Drug form: l 17:51: INJ, ONCE, Stop date: 10/08/18 11:51:00 HEATER OPERATOR propofol 2019-0 No Route: IV, Mem oria (ANES) 10 10-08 Drug form: l mg 16:30: INJ, Start date: 10/08/18 10:30:00 HEATER OPERATOR, Stop date: 10/08/18 11:30:00 HEATER OPERATOR remifentani 2019-0 No Route: IV, Memoria l (ANES) 1 10-08 Drug form: l mg 16:30: INJ, date: 10/08/18 10:30:00 HEATER OPERATOR, Stop date: 10/08/18 11:30:00 HEATER OPERATOR propofol 2019-0 No Route: IV, Mem oria (ANES) 10 10-08 Drug form: l mg 16:30: INJ, Start date: 10/08/18 10:30:00 HEATER OPERATOR, Stop date: 10/08/18 11:30:00 HEATER OPERATOR remifentani 2019-0 No Route: IV, Memoria l (ANES) 1 10-08 Drug form: l mg 16:30: INJ, Start date: 10/08/18 10:30:00 HEATER OPERATOR, Stop date: 10/08/18 11:30:00 HEATER OPERATOR Sodium 2019-0 No Route: IV, Memor ia Chloride 10-08 Drug form: l 0.9% IV 16:25: INJ, Start Herm ree (ANES) date: mL + 10/08/18 vancomycin 10:25:00 (ANES) 1500 HEATER OPERATOR, Stop mg date: 10/08/18 11:25:00 HEATER OPERATOR Sodium 2019-0 No Route: IV, Memor ia Chloride 10-08 Drug form: l 0.9% IV 16:25: INJ, Start Herm ree (ANES) date: mL + 10/08/18 vancomycin 10:25:00 (ANES) 1500 HEATER OPERATOR, Stop mg date: 10/08/18 11:25:00 HEATER OPERATOR Isolyte S 2019-0 No Route: IV, Me moria PH 7.4 3-03 Total l (ANES) 1000 16:09: Volume: Her salas mL 00 1,000, Start date: 10/08/18 10:09:00 HEATER OPERATOR, Stop date: 10/08/18 11:09:00 HEATER OPERATOR Isolyte S 2019-0 No Route: IV, Me moria PH 7.4 3-03 Total l (ANES) 1000 16:09: Volume: Her salas mL 00 1,000, Start date: 10/08/18 10:09:00 HEATER OPERATOR, Stop date: 10/08/18 11:09:00 HEATER OPERATOR Saline 2019-0 No Notes: Memoria Flush 0.9% 3 (Same as: l 15:57: BD [place] 00 Posiflush) Albuterol 2019-0 No 3 ml, Memoria 0.833 MG/ML 10-08 Route: l / 15:57: NEB, Drug [place] Ipratropium 00 Form: [place] SOLN, 0.167 MG/ML Dosing Inhalant Weight Solution 95.455, kg, RQ4H, PRN Wheezing, Start date: 10/08/18 9:57:00 HEATER OPERATOR, Duration: 30 day, Stop date: 11/07/18 9:56:00 CDT Labetalol 2019-0 No 10 mg, 2 Edison anny 3-03 mL, Route: l 15:57: IVP, Drug [place] 00 form: INJ, Q15Min, Dosing Weight 95.455, kg, PRN Hypertensi on, Start date: 10/08/18 9:57:00 HEATER OPERATOR, Duration: 30 day, Stop date: 11/07/18 10:56:00 CDT Hydralazine 2019-0 No 20 mg, 1 Me moria 3-03 mL, Route: l 15:57: IVP, Drug [place] 00 form: INJ, Q4H, Dosing Weight 95.455, kg, PRN Hypertensi on, Start date: 10/08/18 9:57:00 HEATER OPERATOR, Duration: 30 day, Stop date: 11/07/18 9:56:00 CDT Sodium 0 No 1,000 mL, Memori a Chloride 10-08 Rate: 50 l 0.9% IV 15:57: ml/hr, [place] 1,000 mL 00 Infuse over: 20 hr, Route: IV, Dosing Weight 95.455 kg, Total Volume: 1,000, Start date: 10/08/18 9:57:00 HEATER OPERATOR, Duration: 30 day, Stop date: 11/07/18 9:56:00 CDT, 2.16, m2 Levetiracet 2018-0 No Notes: Edison anny am 10-08 Same as l 15:57: Keppra Mix with 100 mL NS, LR or D5W MEDICATION WASTE Product Size: 500 mg Product Wasted: ___ mg Acetaminoph No 100.4 F, M emoria en 10-08 Start l 15:57: date: [place] 10/08/18 9:57:00 HEATER OPERATOR, Duration: 30 day, Stop date: 11/07/18 9:56:00 CDT Ondansetron 2018-0 No Notes: Memoria - MEDICATION l 15:57: WASTE Product Size: 4 mg Product Wasted: ___ mg Bisacodyl No 10 mg, 1 Edison anny 10-08 supp, l 15:57: Route: OK, Drug form: SUPP, Daily, Dosing Weight 95.455, kg, PRN Constipati on, Start date: 10/08/18 9:57:00 HEATER OPERATOR, Duration: 30 day, Stop date: 11/07/18 9:56:00 CDT Saline 2018-0 No Notes: Memoria Flush 0.9% 10-08 (Same as: l 15:57: BD [place] 00 Posiflush) Albuterol 0 No 3 ml, Memoria 0.833 MG/ML 10-08 Route: l / 15:57: NEB, Drug Ipratropium 00 Form: [place] SOLN, 0.167 MG/ML Dosing Inhalant Weight Solution 95.455, kg, RQ4H, PRN Wheezing, Start date: 10/08/18 9:57:00 HEATER OPERATOR, Duration: 30 day, Stop date: 11/07/18 9:56:00 CDT Labetalol 2018-0 No 10 mg, 2 Edison anny 3-03 mL, Route: l 15:57: IVP, Drug form: INJ, Q15Min, Dosing Weight 95.455, kg, PRN Hypertensi on, Start date: 10/08/18 9:57:00 HEATER OPERATOR, Duration: 30 day, Stop date: 11/07/18 10:56:00 CDT Hydralazine 0 No 20 mg, 1 Me moria 3-03 mL, Route: l 15:57: IVP, Drug form: INJ, Q4H, Dosing Weight 95.455, kg, PRN Hypertensi on, Start date: 10/08/18 9:57:00 HEATER OPERATOR, Duration: 30 day, Stop date: 11/07/18 9:56:00 CDT Sodium 2018-0 No 1,000 mL, Memori a Chloride 10-08 Rate: 50 l 0.9% IV 15:57: ml/hr, [place] 1,000 mL 00 Infuse over: 20 hr, Route: IV, Dosing Weight 95.455 kg, Total Volume: 1,000, Start date: 10/08/18 9:57:00 HEATER OPERATOR, Duration: 30 day, Stop date: 11/07/18 9:56:00 CDT, 2.16, m2 Levetiracet 2018-0 No Notes: Edison anny am -03 Same as l 15:57: Keppra Mix with 100 mL NS, LR or D5W MEDICATION WASTE Product Size: 500 mg Product Wasted: ___ mg Acetaminoph 2018-0 No 100.4 F, M emoria en -03 Start l 15:57: date: [place] 00 10/08/18 9:57:00 HEATER OPERATOR, Duration: 30 day, Stop date: 11/07/18 9:56:00 CDT Ondansetron 2018-0 No Notes: Memoria 3-03 MEDICATION l 15:57: WASTE Product Size: 4 mg Product Wasted: ___ mg Bisacodyl 2019-0 No 10 mg, 1 Edison anny 3-03 supp, l 15:57: Route: OK, Drug form: SUPP, Daily, Dosing Weight 95.455, kg, PRN Constipati on, Start date: 10/08/18 9:57:00 HEATER OPERATOR, Duration: 30 day, Stop date: 11/07/18 9:56:00 CDT Zofran 2019-0 No 4 mg, Memoria 3-03 Route: l 15:09: IVP, Drug [place] 00 form: INJ, ONCE, Dosing Weight 95.455, kg, Priority: STAT, Start date: 10/08/18 9:09:00 HEATER OPERATOR, Stop date: 10/08/18 9:09:00 HEATER OPERATOR Morphine 2019-0 No 4 mg, Memoria 3-03 Route: l 15:09: IVP, ONCE, [place] 00 Dosing Weight 95.455, kg, Priority: STAT, Start date: 10/08/18 9:09:00 HEATER OPERATOR, Stop date: 10/08/18 9:09:00 HEATER OPERATOR Sodium 2019-0 No 1,000 mL, Memori a Chloride 3-03 Infuse l 0.9% 15:09: Over: 1 Carlos (Bolus) IV 00 hr, Route: IV, ONCE, Priority: STAT, Dosing Weight 95.455 kg, Start date: 10/08/18 9:09:00 HEATER OPERATOR, Stop date: 10/08/18 9:09:00 HEATER OPERATOR Zofran 2019-0 No 4 mg, Memoria 3-03 Route: l 15:09: IVP, Drug [place] 00 form: INJ, ONCE, Dosing Weight 95.455, kg, Priority: STAT, Start date: 10/08/18 9:09:00 HEATER OPERATOR, Stop date: 10/08/18 9:09:00 HEATER OPERATOR Morphine 2019-0 No 4 mg, Memoria 3-03 Route: l 15:09: IVP, ONCE, [place] 00 Dosing Weight 95.455, kg, Priority: STAT, Start date: 10/08/18 9:09:00 HEATER OPERATOR, Stop date: 10/08/18 9:09:00 HEATER OPERATOR Sodium 2019-0 No 1,000 mL, Memori a Chloride 3-03 Infuse l 0.9% 15:09: Over: 1 [place] (Bolus) IV 00 hr, Route: IV, ONCE, Priority: STAT, Dosing Weight 95.455 kg, Start date: 10/08/18 9:09:00 HEATER OPERATOR, Stop date: 10/08/18 9:09:00 HEATER OPERATOR Sulfamethox Sulfamethox Yes Parminder not [facility] azole-TMP azole-TMP Velez defined L [facility]kes - DS DS [facility] Tramadol Tramadol Yes Parminder [address] HCl HCl [facility]elez as needed [facility] Naproxen Naproxen Yes Parminder [address] [facility]ele[facility] with food [facility] - or milk as [facility] needed l [facility] Vital Signs Vital Name Observation Time Observation Value Comments Source Systolic blood 2021-10-27 15:45:00 144 mm[Hg] [facility] Diastolic blood 2021-10-27 15:45:00 95 mm[facility]Hg] [facility] Heart rate 2021-10-27 15:45:00 85 /min [facility] Respiratory rate 2021-10-27 15:45:00 21 /min [facility] saturation in 2021-10-27 15:45:00 98 /min [facility] blood by [facility] Pulse oximetry Branch Body temperature 2021-10-27 14:14:00 36 [facility] Body height 2021-10-27 10:39:00 172.7 cm [facility] Body weight 2021-10-27 10:39:00 95.8 kg [facility] BMI 2021-10-27 10:39:00 32.11 kg/m2 [facility] Systolic blood 2021-10-13 22:00:00 128 mm[Hg] [facility] Diastolic blood 2021-10-13 22:00:00 79 mm[Hg] [facility] Heart rate 2021-10-13 22:00:00 83 /min [facility] Respiratory rate 2021-10-13 22:00:00 17 /min [facility] in 2021-10-13 22:00:00 95 /min [facility]ter[facility] blood by [facility] Pulse oximetry [facility] Body temperature 2021-10-13 20:55:00 36 [facility] Body height 2021-10-13 17:44:00 172.7 cm [facility] Body weight 2021-10-13 17:44:00 97 kg [facility] BMI 2021-10-13 17:44:00 32.52 kg/m2 [facility] Systolic blood 2021-10-13 17:44:00 162 mm[Hg] [facility] Diastolic blood 2021-10-13 17:44:00 90 mm[Hg] [facility] Heart rate 2021-10-13 17:44:00 68 /min [facility] Body temperature 2021-10-13 17:44:00 35.61 [facility] Respiratory rate 2021-10-13 17:44:00 16 /min [facility] Body height 2021-10-13 17:44:00 172.7 cm [facility] Body weight 2021-10-13 17:44:00 97 kg [facility] BMI 2021-10-13 17:44:00 32.52 kg/m2 [facility] Oxygen saturation in 2021-10-13 17:44:00 100 /min [facility]ter[facility] blood by [facility] Pulse oximetry [facility] Systolic blood 2021-10-12 14:28:00 139 mm[Hg] [facility] Diastolic blood 2021-10-12 14:28:00 88 mm[Hg] [facility] Heart rate 2021-10-12 14:28:00 80 /min [facility] Body temperature 2021-10-12 14:28:00 36.83 [facility] Respiratory rate 2021-10-12 14:28:00 18 /min [facility] Body height 2021-10-12 14:28:00 172.7 cm [facility] Body weight 2021-10-12 14:28:00 96.616 kg [facility] BMI 2021-10-12 14:28:00 32.39 kg/m2 [facility] Oxygen saturation in 2021-10-12 14:28:00 99 /min [facility] Arterial blood by [facility] Pulse oximetry Branch Heart Rate 2018-10-11 17:26:00 [facility] Temperature Oral (F) 2018-10-11 17:26:00 97.9 F [facility] Respitory Rate 2018-10-11 17:26:00 [facility] Systolic (mm Hg) 2018-10-11 17:26:00 [facility] [place] Diastolic (mm Hg) 2018-10-11 17:26:00 [facility] [place] Systolic (mm Hg) 2018-10-11 13:44:00 [facility] [place] Diastolic (mm Hg) 2018-10-11 13:44:00 [facility] [place] Respitory Rate 2018-10-11 13:44:00 [facility] Heart Rate 2018-10-11 13:44:00 [facility] Temperature Oral (F) 2018-10-11 13:44:00 99.1 F [facility] Temperature Oral (F) 2018-10-11 10:47:00 97.9 F [facility] Heart Rate 2018-10-11 10:47:00 [facility] Respitory Rate 2018-10-11 10:47:00 [facility] [place] Systolic (mm Hg) 2018-10-11 10:47:00 [facility] [place] Diastolic (mm Hg) 2018-10-11 10:47:00 [facility] [place] Weight 2018-10-08 21:12:00 [facility] Weight 2018-10-08 14:38:00 [facility] 2018-10-08 14:38:00 172[facility]72 [facility] BMI Calculated 2018-10-08 14:38:00 [facility] [place] Procedures Procedure Date / Time Performing Clinician Source Performed CONSENT/REFUSAL FOR 2021-10-27 10:32:27 Doctor Unassigned, [facility] DIAGNOSIS AND TREATMENT [facility] ASSIGNMENT OF BENEFITS 2021-10-27 10:32:06 Doctor Unassigned, [facility] [place] TIME OR (NON-REPORTABLE) 2021-10-13 20:41:00 Alfredo Frank [facility] [place] TIME OR (NON-REPORTABLE) 2021-10-13 20:41:00 Alfredo Frank [facility] URINE CULTURE 2021-10-13 20:14:00 [facility] STENT PLACEMENT 2021-10-13 19:28:00 [facility] INTRAOPERATIVE 2021-10-13 19:28:00 [facility] [place], [facility] NEPHROURETEROGRAM [facility] CONSENT/REFUSAL FOR 2021-10-13 17:27:15 [facility] CONSENT/REFUSAL FOR 2021-10-13 17:27:15 Doctor [facility]alicia [facility]IS [facility] TREATMENT [facility] ASSIGNMENT OF BENEFITS 2021-10-13 17:26:59 Doctor Un[facility]alicia, [facility] [facility] ASSIGNMENT OF BENEFITS 2021-10-13 17:26:59 Doctor Breessalicia, [facility] [place] [facility] 2021-10-13 06:01:00 [facility] [facility] NOTICE OF PRIVACY PRACTICES 2021-10-12 22:38:48 Doctor Ortiz bond [facility] NOTICE OF PRIVACY PRACTICES 2021-10-12 22:38:48 Doctor Ortiz bond [facility] CONSENT/REFUSAL FOR 2021-10-12 22:38:21 Doctor Aleksandar [facility] DIAGNOSIS AND TREATMENT [facility] CONSENT/REFUSAL FOR 2021-10-12 22:38:21 Doctor [facility]andar [facility] DI[facility]NOSIS [facility] TREATMENT [facility] ASSIGNMENT OF BENEFITS 2021-10-12 22:37:55 Doctor Bre[facility]alicia, [facility] [facility] ASSIGNMENT OF BENEFITS 2021-10-12 22:37:55 Doctor Breessalicia, [facility] [place] [facility] CT ABDOMEN PELVIS WO 2021-10-12 15:46:00 [facility] CONTRAST [facility] Branch POCT URINALYSIS AUTO 2021-10-12 14:48:00 Jeanna Markham [facility] Plan of Care Planned Activity Planned Date Details Comments Source Encounters Start End Encounter Admission Attending Care Care Encounter Source Date/Time Date/Time Type Type Clinicians Facility Department ID 2021-09-21 Outpatient VELEZ, [facility] [id number] [place] 08:39:13 [facility] 2021-09-07 Outpatient Velez, [facility] 10[facility] 2021-09-02 Outpatient Velez, [facility] 14:16:27 Parminder [id number] [facility] 2021-09-02 Outpatient Velez, [facility] 14:04:31 Parminder [id number] [facility] 2021-09-02 Outpatient Velez, [facility] 13:55:58 Parminder [id number] [facility] 2021-09-02 Outpatient Velez, [facility] 13:16:30 Parminder [id number] [facility] 2021-09-02 Outpatient Velez, [facility] 13:09:28 Parminder [id number] [facility] 2021-09-02 Outpatient Velez, [facility] 13:08:55 Parminder [id number] [facility] 2021-09-02 Outpatient Velez, [facility] 12:53:51 Parminder [id number] [facility] 2021-09-02 Outpatient Velez, [facility] [id number] 12:45:22 Parminder [id number] [facility] 2021-09-02 Outpatient Velez, [facility] [id number] 12:36:15 Parminder [id number] [facility] 2021-09-02 Outpatient Velez, [facility] 12:19:27 Parminder [id number] [facility] 2021-09-02 Outpatient Velez, [facility] [id number] 12:07:47 Parminder [id number] [facility] 2021-09-02 Outpatient Velez, [facility] [id number] 12:07:23 Parminder [id number] [facility] 2021-09-02 Outpatient Velez, [facility] [id number] 11:44:55 Parminder [id number] [facility] 2021-09-02 Outpatient Velez, [facility] [id number] 11:42:01 Parminder [id number] [facility] 2021-09-02 Outpatient Velez, ST[facility] [id number] 11:39:14 Parminder [id number] [facility] 2021-09-02 Outpatient Velez, [facility] 11:33:37 Parminder [id number] [facility] 2018-10-08 [facility] [id number] [facility] 09:57:00 2021-10-27 2021-10-27 [facility] RUTHANN Yancey [id number] Univers 05:30:00 11:13:00 Encounter Lidia POPE [id number] ity [facility] 4.2.7.2.686 Alli as [phone] [address] 2021-10-27 2021-10-27 Outpatient R DEBORA YANCEY SUU [id number] Univers 05:30:00 11:13:00 LIDIA ity [facility] 2021-10-27 2021-10-27 Telephone DEBORA Yancey 1.2.840.114 [id number] Univers 00:00:00 00:00:00 Lidia LUNDY [id number] i ty [facility] [place] [id number] [place] dic[address] 2021-10-24 2021-10-24 Laboratory Only, Adc Test [facility] 1.2.840. 114 [id number] Univers 11:30:00 11:45:00 Only Lidia Yancey [place] [id number] ity [facility] [place] [id number] [address] 2021-10-24 2021-10-24 Outpatient R [facility] [id number] Univers 11:30:00 11:30:00 [id number] ity of [facility] 2021-10-24 2021-10-24 Outpatient R [facility] [id number] Univers 11:30:00 11:30:00 LIDIA ity [facility] 2021-10-19 2021-10-19 Telephone [facility] 1.2.840.114 [id number] Univers 00:00:00 00:00:00 Lidia [place] 350.1.13.10 i ty of [place] 4.[place].7.2.[place] [id number] [address] 2021-10-16 2021-10-16 Telephone [facility] 1.2.840.114 [id number] Univers 00:00:00 00:00:00 Lidia [place] [id number] i ty of [place] 4.2.7.2.[place] [id number] [address] 2021-10-14 2021-10-14 [facility] [id number] Univers 00:00:00 00:00:00 Jeanna LUNDY [id number] ity of [place] 4.[place].7.2.[place] [id number] [address] 2021-10-13 2021-10-13 Outpatient R [facility] SUU [id number] Univers 11:26:00 16:22:00 LIDIA ity of [facility] 2021-10-13 2021-10-13 [facility] RUTHANN Yancey [id number] Univers 11:26:00 16:22:00 Encounter Lidia NIKO 350.1.13.10 ity of [place] [id number] [place]i [place] [phone] [facility] 104 Branch 2021-10-13 2021-10-13 Surgery RUTHANN Yancey 1.2.840.114 [id number] Univers 12:50:00 14:52:00 Lidia POPE 350.1.13.10 it y of [facility] 4.2.7.2.686 Alli as [phone] [facility] 103 Branch 2021-10-12 2021-10-12 Hospital [facility] 1.2.840.114 [id number] Univers 09:12:54 23:59:00 Encounter Jeanna LUNDY 350.1.13.10 ity of [place] 4.2.7.2.686 [place] [id number] [facility] 801 Branch 2021-10-12 2021-10-12 Outpatient R [facility] [id number] Univers 16:45:00 16:45:00 [id number] ity [facility] 2021-10-12 2021-10-12 Laboratory Only, Adc Test [facility] 1.2.840. 114 [id number] Univers 16:00:00 16:15:00 Only Kyle Stanley 350.1.13.10 ity of [facility] 4.2.7.2.686 [facility] [id number] [facility] 353 Branch 2021-10-12 2021-10-12 Outpatient R CATRINA [facility] [id number] Univers 16:00:00 16:00:00 KYLE itstevie [facility] 2021-10-12 2021-10-12 [employer] Operator [employer] Taylor, Adc Lab Main [facility] 1.2.8 40.114 [id number] Univers 11:15:00 11:30:00 Visit Jeanna Markham 350.1.13.10 ity of [facility] 4.2.7.2.[address] [place] [facility] [phone] [place] dic[address] 2021-10-12 2021-10-12 Office [facility] 1.2.840.114 [id number] Univers 08:00:00 08:57:20 Visit Jeanna LUNDY 350.1.13.10 ity of [facility] 4.2.7.2.[place] [phone] [address] 2021-10-12 2021-10-12 [facility] 1.2.840.114 [id number] Univers 00:00:00 00:00:00 Surgery Jeanna LUNDY 350.1.13.10 ity of [place] 4.2.7.2.[place] [id number] [address] 2021-10-12 2021-10-12 Case [facility] 1.2.840.114 [id number] Univers 00:00:00 00:00:00 Management Jeanna Shaffer NIKKIE 350.1.13.10 ity of [place] 4.2.7.2.[place] [id number] [address] 2021-10-12 2021-10-12 Telephone [facility] [id number] Univers 00:00:00 00:00:00 Jeanna LUNDY 350.1.13.10 ity of [place] 4.2.7.2.[place] [id number] [address] 2021-10-12 2021-10-12 Telephone JoeyKEDAR 1.2.222.354 [id number] Univers 00:00:00 00:00:00 Jason POPE 350.1.13.10 ity of [facility] 4.2.7.2.686 Alli as [phone] [address] 2021-10-09 2021-10-09 Outpatient R CECILE KEITA [facility] [id number] Univers 10:30:00 10:30:00 CECILE KEITA of [facility] 2021-09-29 2021-09-29 ambulatory [facility] [id number] [facility] 00[facility]:00 Tonja Pineda ent Clinics 2021-09-23 2021-09-23 ambulatory [facility] [id number] [facility] 2021-09-22 2021-09-22 ambulatory [facility] [id number] [facility] 2021-09-22 2021-09-22 ambulatory [facility] [id number] [facility] 2021-09-21 2021-09-21 ambulatory [facility] [id number] [facility] 2021-09-17 2021-09-17 Telephone Nilda Serrano [facility] 1.2.840. 114 [id number] [place] 00:00:00 00:00:00 Nilda Serrano [facility] 350.1.13.58 Health [address] 9.2.7.2.686 [id number] 2021-09-16 2021-09-16 Telephone VERONICA Velez [id number] 1.2.840.114 [id number] [place] 00:00:00 00:00:[address] 350.1.13.58 Health 9.2.7.2.686 [id number] 2021-07-01 2021-07-01 ambulatory [facility] [id number] [facility] 2021-06-30 2021-06-30 ambulatory [facility] [id number] [facility] 2021-05-05 2021-05-05 Outpatient [facility] [id number] [facility] 2021-02-23 2021-02-23 Outpatient [facility] [id number] [facility] 2021-02-23 2021-02-23 Outpatient [facility] [id number] [facility] 2021-01-26 2021-01-26 Outpatient [facility] [id number] [facility]00 [facility] 2021-01-23 2021-01-23 Office DEBORA Champion 1.2.840.114 [id number] 08:50:29 10:03:02 Visit Felisa [facility] 350.1.13.10 [place] 4.2.7.2.686 [place] [phone] Medical 098 Office Building 2021-01-23 2021-01-23 Orders Doctor KEDAR 1.2.840.114 [id number] 00:00:00 00:00:00 Only Unassigned, NIKO 350.1.13.10 [place] [facility] 4.2.7.2.686 [id number] 2021-01-15 2021-01-15 Outpatient [facility] [id number] [facility] 2021-01-06 2021-01-06 Outpatient [facility] [id number] [facility] 2020-11-25 2020-11-25 Outpatient [facility] [id number] [facility] 2020-09-11 2020-09-11 Outpatient [facility] [id number] [facility]00 [facility] 2020-09-11 2020-09-11 Outpatient [facility] [id number] [facility]00 [facility] 2020-08-14 2020-08-14 Outpatient [facility] [id number] [facility] 2020-07-16 2020-07-16 Outpatient [facility] [id number] [facility] 2020-03-26 2020-03-26 [facility] [id number] 15:00:00 15:00:00 [place] s - Drive [facility] l Medicine Outpati ent Clinics 2020-03-24 2020-03-24 [facility] [id number] 08:34:00 08:34:00 [place] BRAINDIGIT s - [employer] [facility] Medicine l Medicine Outpati ent Clinics 2020-03-18 2020-03-18 [facility] [id number] 16:45:00 16:45:00 [place] BRAINDIG[place] s - Drive [facility] Medicine l Medicine Outpati ent Clinics 2020-03-18 2020-03-18 [facility] [id number] 15:30:00 15:30:00 t [place] [employer] s - Drive [facility] Medicine l Medicine Outpati ent Clinics 2020-03-05 2020-03-05 [facility] [id number] 10:30:00 10:30:00 t [place] - [employer] [facility] Medicine l Medicine Outpati ent Clinics 2019-04-04 2019-04-06 Phone nullFlavo MNA [id number] Memoria 17:21:53 04:59:59 Message r Neurosurger 05 l y [facility] 2018-12-21 2018-12-23 Phone nullFlavo MNA [id number] Memoria 15:05:32 04:59:59 Message r Neurosurger 04 l y [facility] 2018-12-08 2018-12-10 Phone nullFlavo MNA [id number] Memoria 18:27:20 04:59:59 Message r Neurosurger 03 l y [facility] 2018-12-07 2018-12-08 Outpatient nullFlavo MNA [id number] Memoria 16:15:00 04:59:59 r Neurosurger 01 l y [facility] 2018-12-07 2018-12-08 Outpt Diag nullFlavo [facility] [id number] Memoria 15:09:00 04:59:00 Services r Outpatient 01 l Imaging [facility] 2018-10-31 2018-11-02 Phone nullFlavo MNA [id number] Memoria 17:52:00 04:59:59 Message r Neurosurger 02 l y [facility] 2018-10-27 2018-10-29 Phone nullFlavo MNA [id number] Memoria 14:49:00 04:59:59 Message r Neurosurger 01 l y [facility] 2018-10-26 2018-10-27 Outpatient nullFlavo [facility] [id number] Memoria 17:15:00 04:59:59 r Neurosurger 00 l y [facility] 2018-10-24 2018-10-25 Outpt Diag nullFlavo [facility] [id number] Memoria 13:26:00 04:59:00 Services r Outpatient 00 l Imaging [facility] 2018-10-17 2018-10-19 Phone nullFlavo MNA [id number] Memoria 15:08:00 04:59:59 Message r Neurosurger [address] [facility] 2018-10-08 2018-10-11 Inpatient nullFlavo [facility] [id number] Memoria 14:37:00 21:18:00 [facility] 62 l [facility] Results Test Description Test Time Test Comments Results Result Comments Source POCT URINALYSIS, INSTRUMENT 2021-10-12 14:49:00 Test Item Value Reference Range Interpretation Comme nts POCT U SP GRAV (test code = 3255) 1.025 mg/dl 1.005-1.025 POCT PH U (test code = 3254) 6.5 mg/dl 5-8 POCT U LEUK EST (test code = 3263) small Negative - Negative POCT U NIT (test code = 3262) negative Negative - Negative POCT U PROT (test code = 3259) Negative - Negative POCT U GLU (test code = 3256) negative Negative - Negative POCT U KETONE (test code = 3258) negative Negative - Negative POCT U UROBILI (test code = 3260) 0.2 mg/dl 0.2-1 POCT U BILI (test code = 3261) negative Negative - Negative POCT U BLD (test code = 3257) large Negative - Negative POCT U COLOR (test code = 3266) dark yellow POCT U APPEAR (test code = 3267) cloudy Lab Interpretation (test code = 04216-4) [facility] [id number] 14:49:00 Test Item Value Reference Range Interpretation Comments POCT U SP GRAV (test code = 1.025 mg/dl 1.005-1.025 3255) POCT PH U (test code = 3254) 6.5 mg/dl 5-8 POCT U LEUK EST (test code = small Negative - Negative 3263) POCT U NIT (test code = 3262) negative Negative - Negative POCT U PROT (test code = Negative - Negative 3259) POCT U GLU (test code = 3256) negative Negative - Negative POCT U KETONE (test code = negative Negative - Negative 3258) POCT U UROBILI (test code = 0.2 mg/dl 0.2-1 3260) POCT U BILI (test code = negative Negative - Negative 3261) POCT U BLD (test code = 3257) large Negative - Negative POCT U COLOR (test code = dark yellow 3266) POCT U APPEAR (test code = cloudy 3267) Lab Interpretation (test code Abnormal = 97703-2) [facility] GIZUC4940-93-12 06:11:0073[facility] SDXVQ7486-23-83 06:11:0074[facility]ann[facility] MWINL5468-50-05 06:11:000.93[facility]ann[facility] ADCFA1263-11-83 06:11:92408Txukqlgy HermannCHEM ZAWQD6559-79-04 06:11:0018[facility]ann[facility] EHTPZ3631-25-79 06:11:008.9 [facility] OXXDV7144-59-25 06:11:003.9[facility]ann[facility] PANEL 2018-10-11 06:11:91796Riqwpzvt HermannCHEM MZQXJ0201-44-71 06:11:0026[facility]annCHEM GDSUK2420-38-08 06:11:0011.9[facility] PuccushCRRERGUXAU3931-90-87 06:11:009.0[facility] NakbkwrMYLGLATJYT5114-01-16 06:11:76325Ykqadrhq [place] WSMWFIYKQY3412-55-87 06:11:008.7[facility]orial TxopmnyYWYRXLXZIM1233-07-25 06:11:00 13.6Memorial KtqnebmLMRHTCSSFH6939-63-64 06:11:0033.2[facility]ann[facility]MATOLOGY 2018-10-11 06:11:00 Test Item Value Reference Range Interpretation Comments MCH (test code = MCH) 29.6 pg 27.0-31.0 Memorial LjlpclbMWBGFNQIZR7334-64-50 06:11:0038.3[facility]ann[facility]MATOLOGY 2018-10-11 06:11:004.30[facility] FlynwkoAFDIKXOKNP8782-89-71 06:11:0089.1[facility]orial SwtmqwyVTXKAVAXQD4851-41-91 06:11:0012.7[facility] WictfouBIBPYRMRRD6773-39-81 06:11:002.9[facility]orial ElkzvgvSQHCHWQGXS8793-36-43 06:11:0028.7[facility] [place] UZOTJDMVYS5779-70-05 06:11:009.5[facility] JysrztrSXYPMYBOIW5868-67-19 06:11:00 58.7[facility] ZevejtcVARFNGGTWA3002-41-63 06:11:002.6[facility]ann[facility]MATOLOGY 2018-10-11 06:11:000.3[facility] SmbrpplXZWZLBCSFK2007-36-66 06:11:000.2[facility] GiuctnhXPSBTAIKLZ9630-70-60 06:11:005.3[facility]orial YsufnozHSDSPBTELK8342-50-34 06:11:000.9[facility]orial GsyfbvtZMCQKVUVJG4950-30-17 06:11:0038.3[facility] Carlos MGHGWTVRIX8728-34-35 06:11:004.30[facility] AimcvhqNPOAPPSJLT3980-69-90 06:11:00 89.1Memorial XmeazkhECVUGERNKH5473-78-30 06:11:0012.7[facility] HermannHEMATOLOGY 2018-10-11 06:11:002.9[facility]orial KkhptknMRYIFKQKGP5448-86-12 06:11:0028.7[facility] MrjjfucSGHRENOQNS5775-24-26 06:11:009.5[facility]orial LeyfhxgYJQMDWOJUZ0299-07-49 06:11:0058.7[facility]orial RpabsugXNBRJOQNTX3483-82-86 06:11:002.6[facility] [place] IFFMRUHKZB0348-58-86 06:11:000.3[facility] JflhwzpGSYUUASTIB3545-36-60 06:11:000.2 Memorial BlbhaklOAJBOPTGRB0396-28-25 06:11:005.3[facility] HermannHEMATOLOGY 2018-10-11 06:11:000.9[facility] HermannCHEM GFGGA8909-49-80 06:11:0073[facility] HermannCHEM PTNGX4837-58-50 06:11:0074[facility] HermannCHEM HKZBF5305-44-99 06:11:000.93[facility] HermannCHEM UHNYR1857-19-38 06:11:40667Diaojyfy HermannCHEM SGYMH6226-32-79 06:11:0018[facility] HermannCHEM CJJRM8172-85-72 06:11:008.9 [facility]annCHEM GNYZY8142-81-89 06:11:003.9[facility] HermannCHEM PANEL 2018-10-11 06:11:49152Zmxkfglv HermannCHEM ZJNDM5688-72-81 06:11:0026[facility] HermannCHEM OKFHF2774-98-07 06:11:0011.9[facility] JfdzsrrQFBBUZUYPN9366-18-06 06:11:009.0[facility] FqggqocIHEAUODHVT8011-65-14 06:11:23119Ywxjntmm [place] JDLWIARFNE8959-36-60 06:11:008.7[facility] PujgwbeRJNSBSYPVN1900-61-21 06:11:00 13.6Memorial RdsgdihYENHEPIDVK2664-10-04 06:11:0033.2[facility] HermannHEMATOLOGY 2018-10-11 06:11:00 Test Item Value Reference Range Interpretation Comments MCH (test code = MCH) 29.6 pg 27.0-31.0 [facility]annCHEM VBPGK9810-68-84 06:24:002.0[facility] HermannCHEM PANEL 2018-10-10 06:24:0068[facility] HermannCHEM LITHL5893-89-50 06:24:003.9[facility] HermannCHEM WXLIC4559-75-63 06:24:34647Ztpdzmuj HermannCHEM FWLNL6284-69-95 06:24:86239Wsxtewtg HermannCHEM BEVIH7367-33-01 06:24:001.00[facility] HermannCHEM EDEOW8685-03-48 06:24:0090[facility] HermannCHEM QSWYA1715-18-42 06:24:0021 [facility] HermannCHEM VLUAQ8973-10-92 06:24:0028[facility] HermannCHEM PANEL 2018-10-10 06:24:008.6[facility] HermannCHEM EIIKQ2227-21-54 06:24:007.9[facility] HermannCHEM GXTLW2794-28-46 06:24:003.9[facility]orial ZqghtydPXSVVJLWXQ0215-65-42 06:24:000.1Memorial QjoaudwECKVAVDITP3852-09-83 06:24:000.2[facility] [place] RENPWEVJMB7060-38-46 06:24:002.0[facility]orial BzpswxiGIHWUZLWYX9585-46-64 06:24:002.1 Memorial EkqvxebPWGHNNXYKQ7260-64-74 06:24:000.8[facility] HermannHEMATOLOGY 2018-10-10 06:24:000.8[facility] LimzsmnOTWLZMSGZN0896-33-19 06:24:005.4Memorial IstweorJZIPJOHUPD1907-18-35 06:24:0024.5[facility] PjimmjgRPRMTMNXJI6562-68-92 06:24:0063.8[facility] NyhrtcxKJTLXNVXED3966-30-54 06:24:008.9[facility] IGDOXAPPJA9397-44-53 06:24:71633Xeowssnv IzdfyunVFYQHJHYWV2504-34-69 06:24:008.2 [facility] VhethtcGVFAJGPQZK7649-74-03 06:24:0012.3[facility]annHEMATOLOGY 2018-10-10 06:24:004.13[facility] IilmxtlEANRHBZTHK3801-51-44 06:24:008.4[facility] MuwjqguHTNICSOJDG2026-84-06 06:24:0088.9[facility] FotsesiTNCELHOENH4302-92-11 06:24:00 Test Item Value Reference Range Interpretation Comments MCH (test code = MCH) 29.9 pg 27.0-31.0 [facility] QiahbncRCRWDWVOTX2364-02-63 06:24:0036.7[facility]annHEMATOLOGY 2018-10-10 06:24:0013.6[facility] NqvomftPTSTVHGAZB0376-30-89 06:24:0033.6[facility] HermannPARATHYROID DZTMQNA1282-82-26 06:24:001.14[facility] HermannPARATHYROID GXGDXXT6927-17-07 06:24:001.15[facility]annCHEM TOYNJ9480-49-85 06:24:002.0 [facility]annCHEM VYGFA7766-70-01 06:24:0068[facility]annCHEM PANEL 2018-10-10 06:24:003.9[facility]annCHEM QQENL6602-19-78 06:24:45956Rzvqqtfn HermannCHEM QYNZC8036-00-89 06:24:23453Kykkuany HermannCHEM DMQQE2974-69-20 06:24:001.00[facility]annCHEM EJXCK6072-66-21 06:24:0090[facility]annCHEM JVKZR8831-52-92 06:24:0021[facility]annCHEM JDFSO4963-39-80 06:24:0028 [facility]annCHEM JTDRO7402-02-39 06:24:008.6[facility]annCHEM PANEL 2018-10-10 06:24:007.9[facility]annCHEM MOKQD0227-98-29 06:24:003.9[facility] NmxjhegMDJHOHLTGF3317-61-29 06:24:000.1[facility] LrmbkcyZAJFNLOWOU7482-28-82 06:24:000.2[facility] WjfgpqjHQNZZJQQMY9307-69-46 06:24:002.0[facility] QYVHYVAIFV2393-31-25 06:24:002.1[facility] IdsdcepFLRNAEBDKA4776-29-22 06:24:000.8 [facility] DbpydcoXFVESHENRA3383-39-88 06:24:000.8[facility]annHEMATOLOGY 2018-10-10 06:24:005.4[facility] KvwrpryDAEDPUPYKD2384-62-19 06:24:0024.5[facility] VkujcayTJESXXTQGO4623-85-21 06:24:0063.8[facility] HqcbwogFBPFHINXHD2683-29-03 06:24:008.9[facility] QsvmufdKRBQBQKRNQ4070-47-20 06:24:62510Hcvqcedu [facility] UGYSANVDED6089-28-31 06:24:008.2[facility] VujfaolMMRWINCZHZ7327-20-77 06:24:00 12.3[facility] CzfwbufYCFBUKVVLP8418-60-29 06:24:004.13[facility]annHEMATOLOGY 2018-10-10 06:24:008.4[facility] RqgybptTXSIAKBWQU9917-97-75 06:24:0088.9[facility] OhunpkwBWUYEXNKDM9205-37-78 06:24:00 Test Item Value Reference Range Interpretation Comments MCH (test code = MCH) 29.9 pg 27.0-31.0 [facility] ZfkyvoaJQIAOSRJBZ3692-05-64 06:24:0036.7[facility]annHEMATOLOGY 2018-10-10 06:24:0013.6[facility] GkmdhhfXQTMZDWZEP8117-38-89 06:24:0033.6[facility] HermannPARATHYROID QKQQPKY6204-65-47 06:24:001.14[facility] HermannPARATHYROID AFFBXME2248-10-12 06:24:001.15[facility] HermannCHEM YJGLG8819-50-19 07:49:003.2 [facility]annCHEM USKBJ6319-15-82 07:49:001.9[facility]annCHEM PANEL 2018-10-09 07:49:0081[facility]annCHEM YKAIZ0609-62-28 07:49:0010.9[facility] HermannCHEM CKSVJ6205-08-70 07:49:008.5[facility]annCHEM ZEWLQ5741-92-53 07:49:003.9[facility] HermannCHEM BVCCO0415-62-46 07:49:59228Ddtokiss HermannCHEM EQNMY6195-94-12 07:49:40390Pfmcqbvd HermannCHEM MEPSK7305-18-00 07:49:000.96 [facility] YNZVC9039-76-68 07:49:0017[facility]annCHEM PANEL 2018-10-09 07:49:56616Sjnveclt HermannCHEM OCSPP7774-25-11 07:49:0024[facility] HkgnlsdSAEROCRFYB2032-90-23 07:49:0086.1[facility] WkqrikxLOFPQSFFTC0176-02-13 07:49:000.4[facility] DemlbtdAVPFSOFXDE5297-94-91 07:49:0012.7[facility] OOWCDAASBA2611-03-30 07:49:006.3[facility] PuweambZLZPSXFNSB0319-94-13 07:49:007.2 [facility] DdmatqyHRPJJBBELC2588-37-94 07:49:000.9[facility] HermannHEMATOLOGY 2018-10-09 07:49:000.1[facility] YpswnnyTEEXFQPSUN8895-01-70 07:49:001.1[facility] EckzbceJMWZFRZAOK1494-80-50 07:49:008.3[facility] BovbzznAUAOBDDDAZ2235-24-80 07:49:0033.3[facility] WkgdxtfPBKTNBOANY9863-62-44 07:49:0013.5[facility] TQBPFTHTVZ5884-61-39 07:49:20130Fnnsjmuh FehzdulIKEFRIZQKY8520-41-73 07:49:00 12.8[facility] QhwtrmpZRZQYVPFRW8207-27-14 07:49:0038.4[facility] HermannHEMATOLOGY 2018-10-09 07:49:0088.1[facility] UdkrrnhCNHFFISWMP4448-28-01 07:49:00 Test Item Value Reference Range Interpretation Comments MCH (test code = MCH) 29.4 pg 27.0-31.0 [facility] HxmkhteBAGTDVNYMG7918-56-39 07:49:0014.7[facility] HermannHEMATOLOGY 2018-10-09 07:49:004.36[facility] HermannPARATHYROID YNXFUVX7396-96-25 07:49:00 1.15[facility] HermannPARATHYROID HLWZXZK3784-16-40 07:49:001.16[facility] CHEM EZZHE7867-25-75 07:49:003.2[facility]annCHEM EAJYX8758-14-90 07:49:001.9 [facility]annCHE[facility] SKVVM7922-94-28 07:49:0081[facility]annCHEM PANEL 2018-10-09 07:49:0010.9[facility]annCHEM KEKSG5624-32-40 07:49:008.5[facility]annCHEM KWANA4329-04-89 07:49:003.9[facility]annCHEM GKOGU4282-30-94 07:49:30691Ejnjrupa HermannCHEM DEUVM0126-62-93 07:49:49026Rjjfiiqm HermannCHEM ITYHU5096-91-81 07:49:000.96[facility]annCHEM ETINZ9535-97-80 07:49:0017 [facility]CHE[facility] YVIGZ4392-77-62 07:49:55150Abwamslu HermannCHEM PANEL 2018-10-09 07:49:0024[facility] TiwaibxVPJYUCDHJR1454-11-59 07:49:0086.1[facility] JohbjlvMYAOYGHYKW0555-21-09 07:49:000.4[facility] MqavjqsZJPDMLSWOV1008-96-54 07:49:0012.7[facility] BaisqstBMHOWKKNUV9945-44-10 07:49:006.3[facility] [place] EAMOPQIRRS4120-53-29 07:49:007.2[facility] XjdoydqVTFFBGZEQJ2814-51-03 07:49:000.9 [facility] TettqwcSIKTVXEHYL4878-52-69 07:49:000.1[facility]annHEMATOLOGY 2018-10-09 07:49:001.1[facility] QhgvquiVOTSABEDTI6061-95-95 07:49:008.3[facility] TfbbsvnLJJKHNPBXR9351-52-01 07:49:0033.3[facility] QtqjsipGTGSKGOBKM7268-55-42 07:49:0013.5[facility] TgsbiywFJRFYCQVHU2618-40-96 07:49:55646Zoummrkd [place] FIVDBDWDSI8699-40-70 07:49:0012.8[facility] FiutnkyBDVFEEMDXK8298-46-67 07:49:00 38.4[facility] WytbmzyAMVNCHBTSG0394-57-87 07:49:0088.1[facility]annHEMATOLOGY 2018-10-09 07:49:00 Test Item Value Reference Range Interpretation Comments MCH (test code = MCH) 29.4 pg 27.0-31.0 [facility] QxayxdrHJFCMFZOLC8494-59-82 07:49:0014.7[facility] HermannHEMATOLOGY 2018-10-09 07:49:004.36[facility] HermannPARATHYROID ZGHXYAK6181-33-32 07:49:00 1.15[facility] HermannPARATHYROID FOZEFNM0276-43-09 07:49:001.16[facility] CARDIAC HZEXPJL4477-24-33 18:27:00<0.02[facility] HermannCARDIAC ENZYMES 2018-10-08 18:27:00<0.02[facility]annURINE AND GWKJT5809-36-79 15:59:00 Negative *NA*(10/08/18 9:59 AM)[facility] PBFWC5305-69-12 15:59:00 Negative (10/08/18 9:59 AM)[facility] CRYMJ1659-22-46 15:59:00 Negative *NA*(10/08/18 9:59 AM)[facility] FVVGY0172-35-32 15:59:00 Test Item Value Reference Range Interpretation Comments UA Spec Grav (test code = UA Spec 1.010 1 Grav) [facility] WTCYU1667-23-63 15:59:00 Test Item Value Reference Range Interpretation Comments UA pH (test code = UA pH) 6.0 1 5.0-8.0 [facility] GDLUZ9280-68-87 15:59:00Yellow *NA*(10/08/18 9:59 AM) [facility] EAOYV4303-07-39 15:59:00Clear (10/08/18 9:59 AM)[facility] DBUBH6318-69-03 15:59:00Negative (10/08/18 9:59 AM)[facility] HABAA1861-77-97 15:59:00Negative (10/08/18 9:59 AM)[facility] SLZOX9058-79-73 15:59:00Small *ABN*(10/08/18 9:59 AM)[facility] IDZNH6857-38-84 15:59:00Negative (10/08/18 9:59 AM)[facility] TGRGP2932-45-38 15:59:000.2[facility] STOOL 2018-10-08 15:59:00Negative *NA*(10/08/18 9:59 AM)[facility] STOOL 2018-10-08 15:59:00Negative (10/08/18 9:59 AM)[facility] STOOL 2018-10-08 15:59:00Negative *NA*(10/08/18 9:59 AM)[facility] STOOL 2018-10-08 15:59:00 Test Item Value Reference Range Interpretation Comments UA Spec Grav (test code = UA Spec 1.010 1 Grav) [facility] JZXKA2556-58-33 15:59:00 Test Item Value Reference Range Interpretation Comments UA pH (test code = UA pH) 6.0 1 5.0-8.0 [facility] WBQBI6689-46-61 15:59:00Yellow *NA*(10/08/18 9:59 AM) [facility] CVBIT8864-74-43 15:59:00Clear (10/08/18 9:59 AM)[facility] FZKQW6235-53-41 15:59:00Negative (10/08/18 9:59 AM)[facility] SZKIU4456-98-32 15:59:00Negative (10/08/18 9:59 AM)[facility] WPAAE2760-25-15 15:59:00Small *ABN*(10/08/18 9:59 AM)[facility] HHIGN6940-60-55 15:59:00Negative (10/08/18 9:59 AM)[facility]2019-03-03 15:59:000.2[facility] JiciuiyFUIIYFUMER7544-24-96 15:21:00 Test Item Value Reference Range Interpretation Comments PTT (test code = PTT) 36.5 s 22.9-35.8 [facility]dpjqxfKZQPRASMTP0346-88-19 15:21:00 Test Item Value Reference Range Interpretation Comments PT (test code = PT) 13.3 s 12.0-14.7 [facility]burgGjpdqojIRMLZSMDYV4679-59-61 15:21:00 Test Item Value Reference Range Interpretation Comments INR (test code = INR) 1.03 1 0.85-1.17 [facility]burgVjxwsaiYUOWKSISAM0316-59-31 15:21:00 Test Item Value Reference Range Interpretation Comments Split Point Rapid (test code = Split 0.6 min Point Rapid) [facility]burgTgzcdchHBYZUJFUUX6234-31-73 15:21:00 Test Item Value Reference Range Interpretation Comments R-time Rapid (test code = R-time 0.7 min 0.4-0.7 Rapid) [facility]burgBbghstrJMHQVMCOCV5992-91-22 15:21:00 Test Item Value Reference Range Interpretation Comments ACT (TEG) Rapid (test code = ACT (TEG) 113 s 86-118 Rapid) [facility]burgWohgcjzQWWUFJJMZP5228-61-34 15:21:0015.0[facility] 2018-10-08 15:21:00 Test Item Value Reference Range Interpretation Comments K-time Rapid (test code = K-time 0.8 min 0.6-2.3 Rapid) [facility]burgZqgyxogIBMAZVSNLA8745-24-58 15:21:000.3[facility] 2018-10-08 15:21:00 Test Item Value Reference Range Interpretation Comments Angle Rapid (test code = Angle 79 degrees 64-80 Rapid) [facility]burgRnkehiyAYQDEWXYQP1138-96-73 15:21:00 Test Item Value Reference Range Interpretation Comments Max Amplitude Rapid (test code = Max 75 mm 52-71 Amplitude Rapid) [facility]burgFpxuzdpJQBXCSWLMA8048-11-93 15:21:00 Test Item Value Reference Range Interpretation Comments PTT (test code = PTT) 36.5 s 22.9-35.8 [facility]burgSlisnwhFHPDZTAYHA8439-16-94 15:21:00 Test Item Value Reference Range Interpretation Comments PT (test code = PT) 13.3 s 12.0-14.7 [facility]IkrijciSDTPMTZWQQ0655-78-54 15:21:00 Test Item Value Reference Range Interpretation Comments INR (test code = INR) 1.03 1 0.85-1.17 [facility] MarshallJnhjtvxAMXIXLSFFP5333-62-08 15:21:00 Test Item Value Reference Range Interpretation Comments Split Point Rapid (test code = Split 0.6 min Point Rapid) [facility] MarshallVkggdqqVYNRCTGQMH9995-08-32 15:21:00 Test Item Value Reference Range Interpretation Comments R-time Rapid (test code = R-time 0.7 min 0.4-0.7 Rapid) [facility]IMZWXILVGT2265-86-78 15:21:00 Test Item Value Reference Range Interpretation Comments ACT (TEG) Rapid (test code = ACT (TEG) 113 s 86-118 Rapid) [facility] MarshallJbqmkxwTEIHYEBETB0576-21-10 15:21:0015.0[facility] 2018-10-08 15:21:00 Test Item Value Reference Range Interpretation Comments K-time Rapid (test code = K-time 0.8 min 0.6-2.3 Rapid) [facility] MarshallQotiiqhCSCMWHFNTM7553-51-71 15:21:000.3[facility] 2018-10-08 15:21:00 Test Item Value Reference Range Interpretation Comments Angle Rapid (test code = Angle 79 degrees 64-80 Rapid) [facility] MarshallCmrptqpUWSDLCXWMN7495-32-34 15:21:00 Test Item Value Reference Range Interpretation Comments Max Amplitude Rapid (test code = Max 75 mm 52-71 Amplitude Rapid) [facility] ZHOEISJ8521-82-20 15:20:00Negative (10/08/18 9:20 AM) [facility] BWASLSI4570-76-50 15:20:00Negative (10/08/18 9:20 AM) [facility] CenterannCARDIAC LRSBHXF8820-47-20 15:18:00<0.02[facility] HermannCHEM UUARF3238-95-54 15:18:003.9[facility] HermannCHEM KUFKM9297-50-56 15:18:001.9 [facility]annCHEM VSWWG5271-48-91 15:18:000.8[facility]annHEMATOLOGY 2018-10-08 15:18:000.1[facility] TjfioxtMNHMSXEYMS2960-12-67 15:18:000.1[facility] HyiiiedOXTWMRTSPN0079 15:18:001.8[facility] HermannCARDIAC WQEGUCE2055-55-93 15:18:00<0.02[facility] HermannCHEM QLTLS7000-28-42 15:18:003.9[facility] HermannCHEM BDWLX8675-26-13 15:18:001.9[facility] HermannCHEM FUOSH9153-84-28 15:18:000.8[facility] LakuigtJPPRECFEQU5573-65-32 15:18:000.1[facility] HNRTZJVPDW0399-55-13 15:18:000.1[facility] XdmuwpkVMEKWFYXKN6173-44-57 15:18:001.8 [facility]
[2021-10-27] MEDS ORDERED: ONDANSETRON 4 MG/2 ML VIAL ONE (20:46)
[2021-10-27] MEDS ORDERED: CEFTRIAXONE 1000 MG/VIAL ONE (20:46)
[2021-10-27] MEDS ORDERED: NA CHLORIDE 0.9% 1,000 ML ONE (20:46)
[2021-10-27] MEDS ORDERED: MORPHINE 2 MG/ML SYR ONE (20:46)
[2021-10-27 20:57] LABS: Urine Blood 3+ (Negative); Urine Glucose Negative (Negative); Urine Protein 2+ (Negative)
[2021-10-27 21:17] LABS: Absolute Lymphocytes (CBC) 0.7 K/uL (0.7-4.9); Hematocrit 40.1 % (36.0-45.0); Lymphocytes % 4.3 % (15.3-44.8); MPV 8.9 fL (7.6-11.3); RBC Red Blood Cell Count 4.59 M/uL (3.86-4.86)
[2021-10-27 21:19] LABS: Protime INR 1.05
--- NOTE | 2021-10-27 21:37 | RAD REPORT ---
EXAM DESCRIPTION: CT - Stone Protocol - 10/27/2021 9:09 pm CLINICAL HISTORY: Abdominal pain. COMPARISON: 2020 TECHNIQUE: Computed axial tomography of the abdomen pelvis was obtained without oral or IV contrast. Lack of IV and oral contrast limits evaluation of solid organs, bowel, and vessels. Coronal reformat matthew images were obtained and reviewed. All CT scans are performed using dose optimization technique as appropriate and may include automated exposure control or mA/KV adjustment according to patient size. FINDINGS: Recent placement of a left ureteral stent is in place. There is marked dilatation of the l eft extrarenal pelvis and proximal left ureter. 6 millimeter calculus is present within the proximal left ureter best seen on the coronal reconstruction. There is present within the left renal calices. Air within the bladder. Bilateral small renal calculi Moderate dilatation of the right extrarenal pelvis. Small hepatic cysts. The spleen, pancreas and adrenals are unremarkable There is no evidence of diverticulitis. The appendix appears normal A 4 centimeter right ovarian cyst mildly enlarged from the prior exam IMPRESSION: Marked dilatation of a left extrarenal pelvis and proximal left ureter. 6 millimeter calderon cification within the proximal left ureter near the transition to normal caliber ureter. It is uncert ain if this is the cause of the obstruction. 4 centimeter right ovarian cyst is mildly enlarged
--- NOTE | 2021-10-27 21:39 | RAD REPORT ---
EXAM DESCRIPTION: Kate Single View10/27/2021 9:20 pm CLINICAL HISTORY: Abdominal pain COMPARISON: 2020 FINDINGS: The lungs appear clear of acute infiltrate. The heart is normal size IMPRESSION: No acute abnormalities displayed
--- NOTE | 2021-10-27 21:41 | RAD REPORT ---
EXAM DESCRIPTION: RAD - Abdomen 1 View (KUB) - 10/27/2021 9:20 pm CLINICAL HISTORY: Abdomen pain. FINDINGS: The bowel gas pattern is unremarkable. Pelvic calcifications likely phleboliths Patient's known genitourinary calculi are not well visualized on this exam
[2021-10-27] MEDS ORDERED: Levofloxacin500mg IV 500 MG/100 ML BAG IV ONE (21:49)
[2021-10-27 21:54] LABS: Blood Morphology Comment NOT SEEN (NOT SEEN); Platelet Estimate ADEQ; White Blood Cell Scan OK (OK)
--- NOTE | 2021-10-27 22:19 | ER ---
Nurse's Notes [facility] Name: Joanna Lim Age: 51 yrs Sex: Female : 1970 Arrival Date: 10/27/2021 Time: 19:59 Bed 4 Private MD: Diagnosis: Hydronephrosis with renal and ureteral calculous obstruction;Abdominal tenderness;Elevated white blood cell count;UTI/ Urinary tract infection, site not specified Presentation: 10/27 19:59 Chief complaint: Patient states: increasing left sided pain after kidney stone removal lg3 and stent placement this morning. Coronavirus screen: Client denies travel out of the [place] in the last 14 days. At this time, the client does not indicate any symptoms associated with coronavirus-19. Ebola Screen: No symptoms or risks identified at this time. Initial Sepsis Screen: Does the patient meet any 2 criteria? No. Patient's initial sepsis screen is negative. Does the patient have a suspected source of infection? No. Patient's initial sepsis screen is negative. Risk Assessment: Do you want to hurt yourself or someone else? Patient reports no desire to harm self or others. Onset of symptoms was October 27, 2021. 19:59 Method Of Arrival: EMS: [facility] lg3 19:59 Acuity: JAYSHREE 3 lg3 Triage Assessment: 20:03 General: Appears in no apparent distress. uncomfortable, Behavior is calm, cooperative. lg3 Pain: Complains of pain in left upper quadrant and left lower quadrant Pain currently is 10 out of 10 on a pain scale. EENT: No deficits noted. No signs and/or symptoms were reported regarding the EENT system. Neuro: No deficits noted. Level of Consciousness is awake, alert, obeys commands, Oriented to person, place, time, situation. Cardiovascular: No deficits noted. Denies chest pain, shortness of breath. Respiratory: No deficits noted. Airway is patent Trachea midline Respiratory effort is even, unlabored, Respiratory pattern is regular, symmetrical. GI: Abdomen is round Bowel sounds present X 4 quads. Reports lower abdominal pain, upper abdominal pain, cramping, Pain is 10 out of 10 on a pain scale. : Reports urinary frequency. Derm: No deficits noted. Skin is intact, is healthy with good turgor, Skin is dry. Musculoskeletal: No deficits noted. No signs and/or symptoms reported regarding the musculoskeletal system. Circulation, motion, and sensation intact. Range of motion: intact in all extremities. STEWARD/STEWARDESS NIGHT: 20:03 LMP N/A - Hysterectomy lg3 Historical: - Allergies: 20:03 PENICILLINS; lg3 - Home Meds: 20:03 meloxicam Oral [Active]; multiple muscle relaxers [Active]; tizanidine Oral [Active]; lg3 - PMHx: 20:03 Back pain; lg3 - PSHx: 20:03 Total abdominal hysterectomy; Lithotripsy; renal stent; lg3 - Immunization history:: Adult Immunizations up to date, Client reports having NOT received the Covid vaccine. - Social history:: Smoking status: Patient denies any tobacco usage or history of. Patient uses alcohol, occasionally. - Family history:: not pertinent. Screenin:07 Abuse screen: Denies threats or abuse. Denies injuries from another. Nutritional lg3 screening: No deficits noted. Tuberculosis screening: No symptoms or risk factors identified. Fall Risk None identified. Assessment: 20:07 General: see triage assessment . lg3 21:08 Reassessment: Patient appears in no apparent distress at this time. No changes from lg3 previously documented assessment. Patient and/or family updated on plan of care and expected duration. Pain level reassessed. Patient is alert, oriented x 3, equal unlabored respirations, skin warm/dry/pink. Vital Signs: 19:59 BP 156 / 92; Pulse 87; Resp 16; Temp 97.9(O); Pulse Ox 97% on R/A; Weight 96.62 kg (R); lg3 Height 5 ft. 8 in. (172.72 cm) (R); Pain 10/10; 21:49 BP 140 / 81; Pulse 85; Resp 18 S; Pulse Ox 98% on R/A; lg3 22:30 BP 144 / 89; Pulse 88; Resp 25 S; Pulse Ox 100% on R/A; as6 23:28 BP 120 / 100; Pulse 80; Resp 14 S; Pulse Ox 99% on R/A; as6 19:59 Body Mass Index 32.39 (96.62 kg, 172.72 cm) lg3 ED Course: 19:59 Patient arrived in ED. oe 20:03 Triage completed. lg3 20:03 Arm band placed on right wrist. lg3 20:07 Sharona Campbell, JULIENNE is Primary Nurse. lg3 20:07 Patient has correct armband on for positive identification. Bed in low position. Call lg3 light in reach. Side rails up X 1. Pulse ox on. NIBP on. Door closed. Noise minimized. Warm blanket given. 20:23 Steven Meehan MD is Attending Physician. iva 21:04 Urine Culture Sent. lg3 21:04 Lipase Sent. lg3 21:05 Basic Metabolic Panel Sent. lg3 21:05 CBC with Diff Sent. lg3 21:05 LFT's Sent. lg3 21:06 Magnesium Sent. lg3 21:06 PT-INR Sent. lg3 21:06 Troponin HS Sent. lg3 21:06 Inserted saline lock: 20 gauge in left antecubital area, using aseptic technique. Blood lg3 collected. 21:09 CT Stone Protocol In Process Unspecified. EDMS 21:19 XRAY Chest (1 view) In Process Unspecified. EDMS 21:19 Abdomen 1 View (KUB) XRAY In Process Unspecified. EDMS 21:26 Basic Metabolic Panel Sent. lg3 21:26 LFT's Sent. lg3 21:26 Magnesium Sent. lg3 21:26 Troponin HS Sent. lg3 22:08 initiated a transfer with Parker from [facility] Transfer center[facility] 22:36 administrative approval given by Parker Muniz/ patient has been accepted to [address] 9 D 967/ Dr. Grier accepted the patient in transfer/report to be called to [phone]. 22:54 SARS-COV-2 RT PCR (Document "Date of Onset" if Symptomatic) Sent. lg3 22:54 SARS-COV-2 RT PCR Sent. lg3 22:54 Urine Culture Sent. lg3 10/28 00:02 No provider procedures requiring assistance completed. Patient transferred, IV remains lg3 in place. intact, No redness/swelling at site. Administered Medications: 10/27 21:03 Drug: morphine 2 mg Route: IVP; Site: left antecubital; lg3 21:04 Follow up: Response: No adverse reaction; RASS: Alert and Calm (0) lg3 21:03 Drug: Zofran (Ondansetron) 4 mg Route: IVP; Site: left antecubital; lg3 21:03 Follow up: Response: No adverse reaction lg3 21:03 Drug: Rocephin (cefTRIAXone) 1 grams Route: IV; Rate: per protocol; Site: left lg3 antecubital; 21:03 Follow up: Response: No adverse reaction lg3 21:26 Drug: NS 0.9% 1000 ml Route: IV; Rate: 1 bolus; Site: left antecubital; lg3 10/28 00:04 Follow up: Response: No adverse reaction; IV Status: Completed infusion; IV Intake: as6 1000ml 10/27 21:48 Drug: levofloxacin 500 mg Volume: 100 ml; Route: IVPB; Infused Over: 60 mins; Site: lg3 left antecubital; 10/28 00:03 Follow up: IV Status: Completed infusion; IV Intake: 100ml lg3 00:03 Follow up: Response: No adverse reaction; IV Status: Completed infusion; IV Intake: as6 100ml 10/27 23:20 Drug: Dilaudid (HYDROmorphone) 0.5 mg Route: IVP; Site: left antecubital; as6 10/28 00:03 Follow up: Response: No adverse reaction; RASS: Alert and Calm (0) lg3 Intake: 00:03 IV: 100ml; Total: 100ml. lg3 00:03 IV: 100ml; Total: 200ml. as6 00:04 IV: 1000ml; Total: 1200ml. as6 Outcome: 10/27 22:18 ER care complete, transfer ordered by . iva 10/28 00:02 Transferred by ground EMS to [facility], Transfer form lg3 completed. Condition: stable Instructed on the need for transfer. 00:04 Patient left the ED. as6 Signatures: Dispatcher [employer] EDSteven Arambula MD MD cha Espinosa, [place] oe [place], MyKena mw2 Sharona Campbell, JULIENNE RN lg3 Ravi Bautista RN RN as6
--- NOTE | 2021-10-27 22:19 | EDPHYS ---
Physician Documentation [facility] Name: Joanna Lim Age: 51 yrs Sex: Female : 1970 Arrival Date: 10/27/2021 Time: 19:59 Bed 4 Private MD: Steven Fields HPI: 10/27 20:35 This 51 yrs old Black Female presents to ER via EMS with complaints of abd pain , left iva flank pain sp lithotripsy. 20:35 The patient presents with abdominal pain in the left lower quadrant, abdominal iva distention in the upper abdomen, in the lower abdomen. Onset: The symptoms/episode began/occurred today. The patient complains of pain in the left low back and left mid back. The pain does not radiate. Onset: The symptoms/episode began/occurred today. Modifying factors: The symptoms are alleviated by nothing. the symptoms are aggravated by nothing. The patient presents with flank pain, on the left. Onset: The symptoms/episode began/occurred today. Modifying factors: The symptoms are alleviated by nothing, the symptoms are aggravated by movement, pressure, walking. Associated signs and symptoms: The patient has no apparent associated signs or symptoms. Severity of symptoms: At their worst the symptoms were moderate, in the emergency department the symptoms are unchanged. [employer] INSIGHTS: 20:03 LMP N/A - Hysterectomy lg3 Historical: - Allergies: 20:03 PENICILLINS; lg3 - Home Meds: 20:03 meloxicam Oral [Active]; multiple muscle relaxers [Active]; tizanidine Oral [Active]; lg3 - PMHx: 20:03 Back pain; lg3 - PSHx: 20:03 Total abdominal hysterectomy; Lithotripsy; renal stent; lg3 - Immunization history:: Adult Immunizations up to date, Client reports having NOT received the Covid vaccine. - Social history:: Smoking status: Patient denies any tobacco usage or history of. Patient uses alcohol, occasionally. - Family history:: not pertinent. ROS: 20:35 Constitutional: Negative for fever, chills, and weight loss, Eyes: Negative for injury, iva pain, redness, and discharge, ENT: Negative for injury, pain, and discharge, Neck: Negative for injury, pain, and swelling, Cardiovascular: Negative for chest pain, palpitations, and edema, Respiratory: Negative for shortness of breath, cough, wheezing, and pleuritic chest pain, Back: Negative for injury and pain, MS/Extremity: Negative for injury and deformity, Skin: Negative for injury, rash, and discoloration, Neuro: Negative for headache, weakness, numbness, tingling, and seizure, Psych: Negative for depression, anxiety, suicide ideation, homicidal ideation, and hallucinations, Allergy/Immunology: Negative for hives, rash, and allergies, Endocrine: Negative for neck swelling, polydipsia, polyuria, polyphagia, and marked weight changes, Hematologic/Lymphatic: Negative for swollen nodes, abnormal bleeding, and unusual bruising. 20:35 Abdomen/GI: Positive for abdominal pain, of the posterior aspect of left lateral abdomen, anterior aspect of left lateral abdomen, left upper quadrant and left lower quadrant. Exam: 20:35 Constitutional: This is a well developed, well nourished patient who is awake, alert, iva and in no acute distress. Head/Face: Normocephalic, atraumatic. Eyes: Pupils equal round and reactive to light, extra-ocular motions intact. Lids and lashes normal. Conjunctiva and sclera are non-icteric and not injected. Cornea within normal limits. Periorbital areas with no swelling, redness, or edema. ENT: Nares patent. No nasal discharge, no septal abnormalities noted. Tympanic membranes are normal and external auditory canals are clear. Oropharynx with no redness, swelling, or masses, exudates, or evidence of obstruction, uvula midline. Mucous membranes moist. Neck: Trachea midline, no thyromegaly or masses palpated, and no cervical lymphadenopathy. Supple, full range of motion without nuchal rigidity, or vertebral point tenderness. No Meningismus. Chest/axilla: Normal chest wall appearance and motion. Nontender with no deformity. No lesions are appreciated. Cardiovascular: Regular rate and rhythm with a normal S1 and S2. No gallops, murmurs, or rubs. Normal PMI, no JVD. No pulse deficits. Respiratory: Lungs have equal breath sounds bilaterally, clear to auscultation and percussion. No rales, rhonchi or wheezes noted. No increased work of breathing, no retractions or nasal flaring. Skin: Warm, dry with normal turgor. Normal color with no rashes, no lesions, and no evidence of cellulitis. MS/ Extremity: Pulses equal, no cyanosis. Neurovascular intact. Full, normal range of motion. Neuro: Awake and alert, GCS 15, oriented to person, place, time, and situation. Cranial nerves II-XII grossly intact. Motor strength 5/5 in all extremities. Sensory grossly intact. Cerebellar exam normal. Normal gait. Psych: Awake, alert, with orientation to person, place and time. Behavior, mood, and affect are within normal limits. 20:35 Abdomen/GI: Inspection: distension, that is mild, Bowel sounds: normal, Palpation: moderate abdominal tenderness, in the posterior aspect of left lateral abdomen, anterior aspect of left lateral abdomen, left upper quadrant and left lower quadrant, Liver: no appreciated palpable abnormalities, Hernia: not appreciated. 21:35 ECG was reviewed by the Attending Physician. iva Vital Signs: 19:59 BP 156 / 92; Pulse 87; Resp 16; Temp 97.9(O); Pulse Ox 97% on R/A; Weight 96.62 kg (R); lg3 Height 5 ft. 8 in. (172.72 cm) (R); Pain 10/10; 21:49 BP 140 / 81; Pulse 85; Resp 18 S; Pulse Ox 98% on R/A; lg3 22:30 BP 144 / 89; Pulse 88; Resp 25 S; Pulse Ox 100% on R/A; as6 23:28 BP 120 / 100; Pulse 80; Resp 14 S; Pulse Ox 99% on R/A; as6 19:59 Body Mass Index 32.39 (96.62 kg, 172.72 cm) lg3 MDM: 20:23 Patient medically screened. iva 20:39 Differential diagnosis: nephrolithiasis, pyelonephritis, urinary tract infection, bowel iva obstruction, diverticulitis, non-specific abd pain, pancreatitis. Data reviewed: vital signs, nurses notes, lab test result(s), EKG, radiologic studies, CT scan, plain films. Data interpreted: equipment monitor phototypesetting: rate is 87 beats/min, rhythm is regular, Pulse oximetry: on room air is 97 %. Test interpretation: by ED physician or midlevel provider: ECG, plain radiologic studies. Counseling: I had a detailed discussion with the patient and/or guardian regarding: the historical points, exam findings, and any diagnostic results supporting the discharge/admit diagnosis, lab results, radiology results, the need for outpatient follow up. 10/27 20:32 Order name: Basic Metabolic Panel; Complete Time: 23:43 [facility] 10/27 20:32 Order name: CBC with Diff 10/27 20:32 Order name: LFT's; Complete Time: 23:43 [facility] 10/27 20:32 Order name: Magnesium; Complete Time: 23:43 [facility] 10/27 20:32 Order name: PT-INR; Complete Time: 21:33 [facility] 10/27 20:32 Order name: Troponin HS; Complete Time: 23:43 [facility] 10/27 20:32 Order name: XRAY Chest (1 view); Complete Time: 22:07 [facility] 10/27 20:32 Order name: Lipase; Complete Time: 23:43 [facility] 10/27 20:32 Order name: Abdomen 1 View (KUB) XRAY; Complete Time: 22:07 [facility] 10/27 20:45 Order name: Urine Culture [facility] 10/27 20:57 Order name: Urine Dipstick-Ancillary; Complete Time: 21:33 [facility] [place] 10/27 21:54 Order name: CBC Smear Scan [facility] 10/27 22:14 Order name: SARS-COV-2 RT PCR (Document "Date of Onset" if Symptomatic) [facility] 10/27 22:14 Order name: SARS-COV-2 RT PCR [facility] [place] 10/27 20:32 Order name: EKG; Complete Time: 20:33 [facility] 10/27 20:32 Order name: Cardiac monitoring; Complete Time: 21:26 [facility] 10/27 20:32 Order name: EKG - Nurse/Tech; Complete Time: 21:26 [facility] 10/27 20:32 Order name: IV Saline Lock; Complete Time: 21:05 [facility] 10/27 20:32 Order name: Labs collected and sent; Complete Time: 21:05 [facility] 10/27 20:32 Order name: O2 Per Protocol; Complete Time: 21:05 [facility] 10/27 20:32 Order name: O2 Sat Monitoring; Complete Time: 21:05 [facility] 10/27 20:32 Order name: CT Stone Protocol; Complete Time: 22:07 [facility] 10/27 20:45 Order name: Urine Dipstick-Ancillary (obtain specimen); Complete Time: 20:59 [facility] 10/27 22:39 Order name: IV Saline Lock - Large Bore; Complete Time: 22:54 [facility] EC:35 Rate is 84 beats/min. Rhythm is regular. QRS [place] is Normal. [place] interval is normal. QRS iva interval is normal. QT interval is normal. No Q waves. T waves are Normal. No ST changes noted. Clinical impression: Normal ECG and No evidence of ischemia. Interpreted by me. Reviewed by me. Administered Medications: 21:03 Drug: morphine 2 mg Route: IVP; Site: left antecubital; lg3 21:04 Follow up: Response: No adverse reaction; RASS: Alert and Calm (0) lg3 21:03 Drug: Zofran (Ondansetron) 4 mg Route: IVP; Site: left antecubital; lg3 21:03 Follow up: Response: No adverse reaction lg3 21:03 Drug: Rocephin (cefTRIAXone) 1 grams Route: IV; Rate: per protocol; Site: left lg3 antecubital; 21:03 Follow up: Response: No adverse reaction lg3 21:26 Drug: NS 0.9% 1000 ml Route: IV; Rate: 1 bolus; Site: left antecubital; lg3 10/28 00:04 Follow up: Response: No adverse reaction; IV Status: Completed infusion; IV Intake: as6 1000ml 10/27 21:48 Drug: levofloxacin 500 mg Volume: 100 ml; Route: IVPB; Infused Over: 60 mins; Site: 3 left antecubital; 10/28 00:03 Follow up: IV Status: Completed infusion; IV Intake: 100ml lg3 00:03 Follow up: Response: No adverse reaction; IV Status: Completed infusion; IV Intake: as6 100ml 10/27 23:20 Drug: Dilaudid (HYDROmorphone) 0.5 mg Route: IVP; Site: left antecubital; as6 10/28 00:03 Follow up: Response: No adverse reaction; RASS: Alert and Calm (0) lg3 Disposition Summary: 10/27/21 22:18 Transfer Ordered Transfer Location: [facility] iva Reason: Higher level of care iva Condition: Fair iva Problem: new iva Symptoms: have improved iva Accepting Physician: [facility](10/28/21 00:04) as6 Diagnosis - Hydronephrosis with renal and ureteral calculous obstruction iva - Abdominal tenderness iva - Elevated white blood cell count iva - UTI/ Urinary tract infection, site not specified iva Forms: - Medication Reconciliation Form iva - SBAR form iva Signatures: Dispatcher [employer] Steven Wynne MD MD cha Gibson, Lacie, RN RN lg3 Ravi Bautista RN RN as6 Corrections: (The following items were deleted from the chart) 00:04 10/27 22:18 [facility] iva as6
[2021-10-27 22:46] LABS: ALT/SGPT 14 U/L (12-78); AST/SGOT 5 U/L (15-37); Albumin 3.2 g/dL (3.4-5.0); Alkaline Phosphatase 68 U/L (45-117); BUN Blood Urea Nitrogen 18 mg/dL (7-18); Bicarbonate 28 mmol/L (21-32); Bilirubin Total 0.2 mg/dL (0.2-1.0); Glucose Level 125 mg/dL (74-106); Lipase 57 U/L (73-393); Magnesium 1.8 mg/dL (1.8-2.4); Potassium 4.1 mmol/L (3.5-5.1); Protein, Total 6.8 g/dL (6.4-8.2); Sodium Level 144 mmol/L (136-145)
[2021-10-27 23:04] LABS: Bilirubin Direct < 0.1 mg/dL (0-0.2)
[2021-10-27] MEDS ORDERED: HYDROMORPHONE HCL 0.5 MG/0.5 ML INJ ONE (23:12)
[2021-10-28 02:26] VITALS: TEMP 97.9
[2021-10-28 02:30] VITALS: BP 120/100; O2SAT 99
--- NOTE | 2021-10-29 07:46 | EKG ---
Test Date: 2021-10-27 Test Time: 21:24:04 [employer] Teacher: NIK MEASUREMENT RESULTS: Intervals: Rate: 84 ME: 136 QRSD: 76 QT: 358 QTc: 423 [place]: P: 48 ME: 136 QRS: 15 T: 51 INTERPRETIVE STATEMENTS: Normal sinus rhythm Normal ECG Compared to ECG 06/13/2021 20:07:27 No significant changes Electronically Signed On 10-29-21 07:41:45 CDT by Romel Green
== END 2021-10-28 00:04 | disposition short-term general hospital (02) ==
LOC: ER 19:58
DX: N13.2 Hydronephrosis with renal and ureteral calculous obstruction (principal); N39.0 Urinary tract infection, site not specified; D72.829 Elevated white blood cell count, unspecified; Z20.822 Contact with and (suspected) exposure to COVID-19; Z88.0 Allergy status to penicillin
CPT/HCPCS: 96365; 93005; 87088; 85025; 87086; 80048; 36415; 83735; 85610; 80076; 81003; 84484; 83690; 76377; 74176; 74018; 71045; 96375; 99285; 96366; U0003; J2270; J1170; J7030; J2405

== ENCOUNTER 2022-03-26 12:18 | Emergency (ER) | payer OTHER ==
--- OUTSIDE RECORDS SUMMARY | 2022-03-26 12:25 | XMS REPORT | Continuity of Care Document ---
:1970 Author Organization [facility] t Address [address] [place] [address] Support Name Relationship Address Phone Yolanda Ruiz [address] [place] [address] L Dane Ruiz Relative [address] [place] [address] N Jonah Dubose Child [address] [place] [address] Dubose, Joanna Unavailable [address] [phone] [place] [address] Carina Joanna Unavailable [address] [phone] [place] [address] JONAH DUBOSE N [address] [place] [address] DANE RUIZ Relative [address] [place] [address] Care Team Providers Name Role Phone GIANNA VELEZ Primary Care Physician Unavailable Gianna Velez Attending Clinician Unavailable KARMEN VELEZ Attending Clinician Unavailable PINA WILLIAMSON Attending Clinician Unavailable ALEXYS AGUILAR Attending Clinician Unavailable LIDIA YANCEY Attending Clinician Unavailable Lidia Yancey MD Attending Clinician PATSY FROST Attending Clinician Unavailable Doctor Unassigned, [place] Attending Clinician Unavailable Nilda Serrano MA Attending Clinician Unavailable Jaycee DNP, HEALTH INFORMATION ASSISTANT, CNP-BC, Felisa Denton Attending Clinician LIDIA YANCEY Admitting Clinician Unavailable Payers Payer Name Policy Type Policy Number Effective Date Expiration Date [place] [id number] 2019 HEALTH PLAN CHIP 00:00:00 [place] CHILDRENEmilia [id number] 2016 HEALTH 00:00:00 Problems Condition Condition Condition Status Onset Resolution Last Treating Co mments Source Name Details Category Date Date Treatment Clinician Date 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 Added automatic ally from request for surgery [id number] Obesity Obesity Disease Active Univers (BMI (BMI 3 ity of 30-39.9) 30-39.9) 00:00: [place] [address] Medical Branch CHRONIC CHRONIC Diagnosis Active 2019-02-01 Memoria SDH SDH Active 10-08 10:05:00 l 10/08/2018 00:00: Narinder denton [address] NON NON Diagnosis Active 2018-10-08 Mem oria SUBACUTE SUBACUTE 10-08 10:22:00 l TRAUMATIC TRAUMATIC 00:00: [facility] ree SUBDURAL SUBDURAL 00 HEMATOMA HEMATOMA Active 10/08/2018 [facility] Status Status Disease Active Univers post post 2 ity of vaginal vaginal 00:00: [place] hysterecto hysterecto 00 Me dical my my Branch Post-opera Post-opera Disease Active U nivers tive state tive state 2- it y of 00:00: Medical Branch Uterine Uterine Disease Active Univers polyp polyp 1-05 ity of 00:00: [place] [address] Medical Branch Goiter Goiter Disease Active 2014-08 Univers 0-07 ity of 00:00: [place] [address] Medical Branch Simple Simple Problem Active 2019-04-08 [place] anny obesity obesity 00:24:36 l (disorder) (disorder) He rmann Active Problem 04/08/2019 Ariel Neuro, HEATH Gonzalez, HEATH Palumbo NONTRAUMAT NONTRAUMA Diagnosis Active 2019-02-01 Memoria IC CHRONIC TIC 10:05:00 l SUBDURAL CHRONIC [place] HEMORRHAGE SUBDURAL HEMORRHAGE Active [facility] Allergies, Adverse Reactions, Alerts Allergy [...] Active Memori a in in l [place] Adverse Active hives Common amine Reaction [facility] Social History Social Habit Start Date Stop Date Quantity Comments Source History SDOH University o f Alcohol Frequency [place] M edical Branch History SDOH University o f Alcohol Std [place] Medical Drinks Branch History SDOH University o f Alcohol Binge [place] Medic al Branch Exposure to 2022-02-28 2022-03-10 Not sure [facility] SARS-CoV-2 00:00:00 18:20:00 [facility] (event) Branch Alcohol intake 2022-01-25 2022-01-25 0 /d University of 00:00:00 00:00:00 [facility] Alcohol Comment 2021-07-24 2021-07-24 occasional Universit y of 00:00:00 00:00:00 [facility] Tobacco use and 2019-02-01 2019-02-01 Smokeless tobacco Un iversity of exposure 00:00:00 00:00:00 non-user [facility] Sex Assigned At [birth year] [facility] 00:00:00 00:00:00 Smoking Status Start Date Stop Date Source Never smoked tobacco [facility] [place] [facility] Medications Ordered Filled Start Stop Current Ordering Indication Dosage Frequency Signature Comments Components Source Medication Medication Date Date Medication? Clinician (SIG) Name Name NAPROXEN Yes 1{tbl} Take 1 Unive rs ORAL 6-20 tablet by ity of 14:45: mouth. [address] tiZANidine Yes 4mg Take 4 mg Un leonel 4 mg 6-20 by mouth 3 ity of capsule 14:45: (three) [place] [address] times Medical daily. Branch NAPROXEN Yes 1{tbl} Take 1 Unive rs ORAL 6-20 tablet by ity of 14:45: mouth. [address] tiZANidine Yes 4mg Take 4 mg Un leonel 4 mg 6-20 by mouth 3 ity of capsule 14:45: (three) [place] 04 times Medical daily. Branch NAPROXEN 2021-0 Yes 1{tbl} Take 1 Unive rs ORAL 6-20 tablet by ity of 14:45: mouth. [place] [address] Medical Branch tiZANidine 2021-0 Yes 4mg Take 4 mg Un leonel 4 mg 6-20 by mouth 3 ity of capsule 14:45: (three) [place] 04 times Medical daily. Branch NAPROXEN 2021-0 Yes 1{tbl} Take 1 Unive rs ORAL 6-20 tablet by ity of 14:45: mouth. [place] [address] Medical Branch tiZANidine 2021-0 Yes 4mg Take 4 mg Un leonel 4 mg 6-20 by mouth 3 ity of capsule 14:45: (three) [place] 04 times Medical daily. Branch DULoxetine 2021-0 Yes 20mg Take 20 mg U nivers 20 mg 3-23 by mouth ity of capsule 19:13: daily. [address] Branch DULoxetine 2021-0 Yes 20mg Take 20 mg U nivers 20 mg 3-23 by mouth ity of capsule 19:13: daily. [address] Branch DULoxetine 2021-0 Yes 20mg Take 20 mg U nivers 20 mg 3-23 by mouth ity of capsule 19:13: daily. [address] Branch DULoxetine 2021-0 Yes 20mg Take 20 mg U nivers 20 mg 3-23 by mouth ity of capsule 19:13: daily. [address] Branch TAMSULOSIN 2021-0 Yes [id number] TAKE 1 U nivers 0.4 mg 24 3-23 CAPSULE BY ity of hr capsule 00:00: MOUTH [place] 00 EVERY DAY Medical Branch TAMSULOSIN 2-0 Yes [id number] TAKE 1 U nivers 0.4 mg 24 3-23 CAPSULE BY ity of hr capsule 00:00: MOUTH [place] EVERY DAY Medical Branch TAMSULOSIN 2-0 Yes [id number] TAKE 1 U nivers 0.4 mg 24 3-23 CAPSULE BY ity of hr capsule 00:00: MOUTH [place] EVERY DAY Medical Branch TAMSULOSIN 2-0 Yes [id number] TAKE 1 U nivers 0.4 mg 24 3-23 CAPSULE BY ity of hr capsule 00:00: MOUTH [place] 00 EVERY DAY Medical Branch ibuprofen Yes [id number] 400mg Take 2 U nivers (MOTRIN IB) 3-22 tablets by it y of 200 mg 00:00: mouth [place] tablet 00 every 6 Medical (six) Branch hours as needed for Pain (scale 1-3). ibuprofen Yes [id number] 400mg Take 2 U nivers (MOTRIN IB) 3-22 tablets by it y of 200 mg 00:00: mouth [place] tablet 00 every 6 Medical (six) Branch hours as needed for Pain (scale 1-3). ibuprofen Yes [id number] 400mg Take 2 U nivers (MOTRIN IB) 3-22 tablets by it y of 200 mg 00:00: mouth [place] tablet 00 every 6 Medical (six) Branch hours as needed for Pain (scale 1-3). ibuprofen Yes [id number] 400mg Take 2 U nivers (MOTRIN IB) 3-22 tablets by it y of 200 mg 00:00: mouth [place] tablet 00 every 6 Medical (six) Branch hours as needed for Pain (scale 1-3). acetaminoph 2022- No [id number] 650mg Take 2 Univers en 325 mg 3-22 03-23 tablets by ity of tablet 00:00: 04:59 mouth [place] 00 :00 every 6 Medical (six) Branch hours as needed for Pain (scale 1-3). acetaminoph 2022- No [id number] 650mg Take 2 Univers en 325 mg 3-22 03-23 tablets by ity of tablet 00:00: 04:59 mouth [place] 00 :00 every 6 Medical (six) Branch hours as needed for Pain (scale 1-3). acetaminoph 2022- No [id number] 650mg Take 2 Univers en 325 mg 3-22 03-23 tablets by ity of tablet 00:00: 04:59 mouth [place] 00 :00 every 6 Medical (six) Branch hours as needed for Pain (scale 1-3). acetaminoph 2022- No [id number] 650mg Take 2 Univers en 325 mg 3-22 03-23 tablets by ity of tablet 00:00: 04:59 mouth [place] 00 :00 every 6 Medical (six) Branch hours as needed for Pain (scale 1-3). ibuprofen 2022-0 Yes [id number] 400mg Take 2 U nivers (MOTRIN IB) 3-08 tablets by it y of 200 mg 00:00: mouth [place] tablet 00 every 6 Medical (six) Branch hours as needed for Pain (scale 1-3). phenazopyri 2021-0 Yes [id number] 100mg Take 1 Univers dine 100 mg 3-08 tablet by ity of tablet 00:00: mouth 3 [place] 00 (three) Medical times Branch daily as needed (Bladder Pain). ibuprofen 2021-0 Yes [id number] 400mg Take 2 U nivers (MOTRIN IB) 3-08 tablets by it y of 200 mg 00:00: mouth [place] tablet 00 every 6 Medical (six) Branch hours as needed for Pain (scale 1-3). phenazopyri 2021-0 Yes [id number] 100mg Take 1 Univers dine 100 mg 3-08 tablet by ity of tablet 00:00: mouth 3 [place] 00 (three) Medical times Branch daily as needed (Bladder Pain). ibuprofen 2021-0 Yes [id number] 400mg Take 2 U nivers (MOTRIN IB) 3-08 tablets by it y of 200 mg 00:00: mouth [place] tablet 00 every 6 Medical (six) Branch hours as needed for Pain (scale 1-3). phenazopyri 2021-0 Yes [id number] 100mg Take 1 Univers dine 100 mg 3-08 tablet by ity of tablet 00:00: mouth 3 [place] 00 (three) Medical times Branch daily as needed (Bladder Pain). ibuprofen 2021-0 Yes [id number] 400mg Take 2 U nivers (MOTRIN IB) 3-08 tablets by it y of 200 mg 00:00: mouth [place] tablet 00 every 6 Medical (six) Branch hours as needed for Pain (scale 1-3). phenazopyri 2021-0 Yes [id number] 100mg Take 1 Univers dine 100 mg 3-08 tablet by ity of tablet 00:00: mouth 3 [place] 00 (three) Medical times Branch daily as needed (Bladder Pain). acetaminoph 2021-0 2023- No [id number] 650mg Take 2 Univers en 325 mg 3-08 03-09 tablets by ity of tablet 00:00: 05:59 mouth [place] 00 :00 every 6 Medical (six) Branch hours as needed for Pain (scale 1-3). acetaminoph 2021-0 3- No [id number] 650mg Take 2 Univers en 325 mg 3-08 03-09 tablets by ity of tablet 00:00: 05:59 mouth [place] 00 :00 every 6 Medical (six) Branch hours as needed for Pain (scale 1-3). acetaminoph 2021-0 3- No [id number] 650mg Take 2 Univers en 325 mg 3-08 03-09 tablets by ity of tablet 00:00: 05:59 mouth [place] 00 :00 every 6 Medical (six) Branch hours as needed for Pain (scale 1-3). acetaminoph 2021-0 3- No [id number] 650mg Take 2 Univers en 325 mg 3-08 03-09 tablets by ity of tablet 00:00: 05:59 mouth [place] 00 :00 every 6 Medical (six) Branch hours as needed for Pain (scale 1-3). sulfamethox 2022-0 Yes [id number] 1{tbl} Take 1 Univers azole-trime 3-07 tablet by ity of thoprim 00:00: mouth 2 [place] (BACTRIM 00 (two) Medical DS) 800-160 times Branch mg per daily. tablet sulfamethox 2022-0 Yes [id number] 1{tbl} Take 1 Univers azole-trime 3-07 tablet by ity of thoprim 00:00: mouth 2 [place] (BACTRIM 00 (two) Medical DS) 800-160 times Branch mg per daily. tablet sulfamethox 2022-0 Yes [id number] 1{tbl} Take 1 Univers azole-trime 3-07 tablet by ity of thoprim 00:00: mouth 2 [place] (BACTRIM 00 (two) Medical DS) 800-160 times Branch mg per daily. tablet sulfamethox 2022-0 Yes [id number] 1{tbl} Take 1 Univers azole-trime 3-07 tablet by ity of thoprim 00:00: mouth 2 [place] (BACTRIM 00 (two) Medical DS) 800-160 times Branch mg per daily. tablet ketorolac 2022-0 Yes [id number] 10mg Take 1 Un leonel 10 mg 2-22 tablet by ity of tablet 00:00: mouth [place] 00 every 6 Medical (six) Branch hours as needed for Pain (scale 1-3). ketorolac 2022-0 Yes [id number] 10mg Take 1 Un leonel 10 mg 2-22 tablet by ity of tablet 00:00: mouth [place] 00 every 6 Medical (six) Branch hours as needed for Pain (scale 1-3). ketorolac Yes [id number] 10mg Take 1 Un leonel 10 mg 2-22 tablet by ity of tablet 00:00: mouth [place] 00 every 6 Medical (six) Branch hours as needed for Pain (scale 1-3). ketorolac Yes [id number] 10mg Take 1 Un leonel 10 mg 2-22 tablet by ity of tablet 00:00: mouth [place] 00 every 6 Medical (six) Branch hours as needed for Pain (scale 1-3). solifenacin 2020-08 Yes [id number] 10mg Take 1 Univers (VESICARE) 2-17 tablet by ity of 10 mg 00:00: mouth at [place] tablet 00 bedtime. Medical Branch solifenacin 2020-08 Yes [id number] 10mg Take 1 Univers (VESICARE) 2-17 tablet by ity of 10 mg 00:00: mouth at [place] tablet 00 bedtime. Medical Branch solifenacin 2020-08 Yes [id number] 10mg Take 1 Univers (VESICARE) 2-17 tablet by ity of 10 mg 00:00: mouth at [place] tablet 00 bedtime. Medical Branch solifenacin 2020-08 Yes [id number] 10mg Take 1 Univers (VESICARE) 2-17 tablet by ity of 10 mg 00:00: mouth at [place] tablet 00 bedtime. Medical Branch traMADoL 2019-08 Yes [id number] 50mg Take 1 Univers (ULTRAM) 50 2-02 tablet by ity of mg tablet 00:00: mouth [place] 00 every 6 Medical (six) Branch hours as needed for Pain (scale 7-10). Indication s: acute pain methocarbam 2019-08 Yes [id number] 750mg Take 1 Univers oL 750 mg [...] (scale 7-10). Indication s: acute pain methocarbam 2020-1 Yes [id number] 750mg Take 1 Univers oL 750 mg [...] Indication s: acute pain methocarbam 2019- Yes [id number] 750mg Take 1 Univers oL 750 mg [...] (scale 7-10). Indication s: acute pain methocarbam 2019-1 Yes [id number] 750mg Take 1 Univers oL 750 mg 2-02 tablet by ity o f tablet 00:00: mouth [place] 00 every 6 Medical (six) Branch hours as needed (MUSCLE SPASM). cetirizine 2020-0 Yes [id number] 10mg Take 1 Univers 10 mg 3-16 tablet by ity of tablet 00:00: mouth [place] 00 daily. Medical Branch fluticasone 2020-0 Yes [id number] 2{spray Use 2 Univers propionate 3-16 } Sprays in ity of 50 00:00: each [place] mcg/actuati 00 nostril Medic al on nasal daily. Branch spray cetirizine 2020-0 Yes [id number] 10mg Take 1 Univers 10 mg 3-16 tablet by ity of tablet 00:00: mouth [place] 00 daily. Medical Branch fluticasone 2020-0 Yes [id number] 2{spray Use 2 Univers propionate 3-16 } Sprays in ity of 50 00:00: each [place] mcg/actuati 00 nostril Medic al on nasal daily. Branch spray cetirizine 2020-0 Yes [id number] 10mg Take 1 Univers 10 mg 3-16 tablet by ity of tablet 00:00: mouth [place] 00 daily. [facility] fluticasone 2020-0 Yes [id number] 2{spray Use 2 Univers propionate 3-16 } Sprays in ity of 50 00:00: each [place] mcg/actuati 00 nostril Medic al on nasal daily. [place] spray cetirizine 2019-0 Yes [id number] 10mg Take 1 Univers 10 mg 3-16 tablet by ity of tablet 00:00: mouth daily. [facility] fluticasone 2020-0 Yes [id number] 2{spray Use 2 Univers propionate 3-16 } Sprays in ity of 50 00:00: each [place] mcg/actuati 00 nostril Medic al on nasal daily. [place] spray methocarbam 2018- Yes 500 mg = [...] 3-06 RQ4H, PRN l / 15:24: Wheezing, [place] Ipratropium 00 0 [place] Refill(s) 0.167 MG/ML Inhalant Solution Acetaminoph 2018-0 Yes 100.4 F, M emoria en 325 MG 3-06 0 l Oral Tablet 15:24: Refill(s) H erm methocarbam 2019-0 Yes 500 mg = 1 Memoria ol [...] / 15:24: Wheezing, [place] Ipratropium 00 0 [place] Refill(s) 0.167 MG/ML Inhalant Solution Acetaminoph Yes 100.4 F, M emoria en 325 MG 3-06 0 l Oral Tablet 15:24: Refill(s) H erm Bisacodyl No Notes: Memori a 3-05 (Same As: l 20:47: Dulcolax, [place] 00 Bisco-Lax) Bisacodyl No Notes: Memori a 3-05 (Same As: l 20:47: Dulcolax, [place] 00 Bisco-Lax) Tramadol No Notes: Not Mem [...] Drug form: ERFILM, Start date: 10/09/18 21:00:00 QUALITY CONTROL TECHNICIAN, Duration: 30 day, Stop date: 11/07/18 21:00:00 CDT remove No 1 patch, Memoria patch 3-05 Route: l 03:00: TOP, [place] 00 Bedtime, Drug form: ERFILM, Start date: 10/09/18 21:00:00 QUALITY CONTROL TECHNICIAN, Duration: 30 day, Stop date: 11/07/18 21:00:00 CDT Robaxin No Notes: Memoria 3-04 (Same l 19:00: as:Robaxin [place] 00 ) Robaxin No Notes: Memoria 3-04 (Same l 19:00: as:Robaxin ) Lyrica No Notes: Memoria 3-04 (Same as: l 15:18: Lyrica) [place] 00 Lyrica No Notes: Memoria 3-04 (Same as: l 15:18: Lyrica) Miralax No Notes: Memoria 3-04 Dissolve l 15:17: in 8 oz of [place] 00 water or juice. (Same as: Miralax) Miralax No Notes: Memoria 3-04 Dissolve l 15:17: in 8 oz of [place] 00 water or juice. (Same as: Miralax) Lidocaine No 1 patch, [place] ann[place] 0.05 MG/MG 3-04 Route: l Transdermal 15:00: TOP, Narinder n Patch 00 Daily, Drug form: FILM, Start date: 10/09/18 9:00:00 QUALITY CONTROL TECHNICIAN, Duration: 30 day, Stop date: 11/07/18 9:00:00 CDT Lidocaine No 1 patch, [place] ann[place] 0.05 MG/MG 3-04 Route: l Transdermal 15:00: TOP, Narinder n Patch 00 Daily, Drug form: FILM, Start date: 10/09/18 9:00:00 QUALITY CONTROL TECHNICIAN, Duration: 30 day, Stop date: 11/07/18 9:00:00 CDT Tramadol No Notes: Not Mem oria 3-04 to exceed l 04:24: 400mg/day. (Same As: Ultram) Tramadol No Notes: Not Mem oria 3-04 to exceed l 04:24: 400mg/day. (Same As: Ultram) Keppra No Notes: Memoria [...] Weight 95.455, kg, Start date: 10/08/18 21:00:00 QUALITY CONTROL TECHNICIAN, Duration: 30 day, Stop date: 11/07/18 9:00:00 CDT Keppra 0 No Notes: Memoria 3-04 (Same l 03:00: [...] Weight 95.455, kg, Start date: 10/08/18 21:00:00 QUALITY CONTROL TECHNICIAN, Duration: 30 day, Stop date: 11/07/18 9:00:00 CDT Vancomycin No 2001 mg: Me moria 3-04 infuse l 00:00: over 2.5 [place] 00 hours For adult patients only: Round to nearest 250 mg per Medical Staff approval MEDICATION WASTE Product Size: 1000 mg Product Wasted: ___ mg Vancomycin No 2001 mg: Me moria 3-04 infuse l 00:00: over 2.5 [place] 00 hours For adult patients only: Round to nearest 250 mg per Medical Staff approval MEDICATION WASTE Product Size: 1000 mg Product Wasted: ___ mg Artificial No 2 drp, Memor ia Tears 3 Route: l 23:00: BOTH EYES, [place] 00 BID, Drug form: SOLN, Start date: 10/08/18 17:00:00 QUALITY CONTROL TECHNICIAN, Duration: 30 day, Stop date: 11/07/18 9:00:00 CDT Artificial 0 No 2 drp, Memor ia Tears 3 Route: l 23:00: BOTH EYES, [place] 00 BID, Drug form: SOLN, Start date: 10/08/18 17:00:00 QUALITY CONTROL TECHNICIAN, Duration: 30 day, Stop date: 11/07/18 9:00:00 CDT Vancomycin 2019-0 No 1 gm, Memori a 10-08 Route: IV, l 22:00: Q8H, Dosing Weight 95.455, kg, Start date: 10/08/18 16:00:00 QUALITY CONTROL TECHNICIAN, Duration: 1 day, Stop date: 10/09/18 8:00:00 QUALITY CONTROL TECHNICIAN, ABX Indication : Surgical Prophylaxi s Vancomycin 2019-0 No 1 gm, Memori a - Route: IV, l 22:00: Q8H, Dosing Weight 95.455, kg, Start date: 10/08/18 16:00:00 QUALITY CONTROL TECHNICIAN, Duration: 1 day, Stop date: 10/09/18 8:00:00 QUALITY CONTROL TECHNICIAN, ABX Indication : Surgical Prophylaxi s Glucagon 2019-0 No 1 mg, Memoria 10-08 Route: IM, l 20:19: Drug form: [place] 00 PDR/INJ, PRN, Dosing Weight 95.455, kg, PRN Blood Glucose Results, Start date: 10/08/18 14:19:00 QUALITY CONTROL TECHNICIAN, Duration: 30 day, Stop date: 11/07/18 15:18:00 CDT Dextrose 2019-0 No 25 gm, 50 [place] ann[place] 50% Syringe 3-03 mL, Route: l 20:19: IVP, Drug Form: INJ, Dosing Weight 95.455, kg, PRN, PRN Blood Glucose Results, Start date: 10/08/18 14:19:00 QUALITY CONTROL TECHNICIAN, Duration: 30 day, Stop date: 11/07/18 15:18:00 CDT Insulin 2019-0 No 60 units) [place] anny regular 10-08 WASTE: F/P l 20:19: - Black; E - Municipal Trash Bin Stable for 28 days at room temperatur e Expires in days from ____Date Glucagon 2019-0 No 1 mg, Memoria 10-08 Route: IM, l 20:19: Drug form: [place] 00 PDR/INJ, PRN, Dosing Weight 95.455, kg, PRN Blood Glucose Results, Start date: 10/08/18 14:19:00 QUALITY CONTROL TECHNICIAN, Duration: 30 day, Stop date: 11/07/18 15:18:00 CDT Dextrose 2019-0 No 25 gm, 50 [place] ann[place] 50% Syringe 3-03 mL, Route: l 20:19: IVP, Drug [place] 00 Form: INJ, Dosing Weight 95.455, kg, PRN, PRN Blood Glucose Results, Start date: 10/08/18 14:19:00 QUALITY CONTROL TECHNICIAN, Duration: 30 day, Stop date: 11/07/18 15:18:00 CDT Insulin 2019- No 60 units) [place] ann[place] regular 3- WASTE: F/P l 20:19: - Black; E [place] - Municipal Trash Bin Stable for 28 days at room temperatur e Expires in days from ____Date Potassium No Notes: Memori a Chloride - (Same as: l 20:18: KCL) [place] Infuse over 2 hours. Calcium No Notes: Memoria Gluconate 3- WASTE: F/P l 20:18: - Sink; E [place] - Municipal Trash Bin Magnesium No Notes: Memori a Oxide - (Same as: l 20:18: Mag-Ox [place] 00 400) Magnesium oxide 419rc=754l g elemental magnesium Dose=____m g magnesium oxide (___mg elemental magnesium) Calcium No Notes: Memoria Carbonate 3- (Same As: l 500 MG 20:18: Tums) [place] Chewable 00 Calcium Tablet Carbonate 500 mg = 200 mg elemental calcium Dose = mg calcium carbonate ( mg elemental calcium) potassium No Notes: Memori a phosphate 3-03 (Same as: l 20:18: K [place] Phosphate. ) Do not infuse phosphorou s [...] WASTE: F/P l 20:18: - Sink; E [place] 00 - Municipal Trash Bin sodium No Notes: Memoria phosphate 3-03 Infuse l 20:18: over 4 [place] 00 hour. Do not infuse phosphorou s concurrent ly in the same line as TPN or IVF that contains calcium. For double lumen central lines, phosphorou s may be infused in a separate lumen from TPN. Potassium No Notes: Memori a Chloride - (Same as: l 20:18: KCL) [place] 00 Infuse over 2 hours. Calcium No Notes: Memoria Gluconate 10-08 WASTE: F/P l 20:18: - Sink; E [place] - Municipal Trash Bin Magnesium No Notes: Memori a Oxide - (Same as: l 20:18: Mag-Ox [place] 00 400) Magnesium oxide 582ri=120d g elemental magnesium Dose=____m g magnesium oxide (___mg elemental magnesium) Calcium No Notes: Memoria Carbonate - (Same As: l 500 MG 20:18: Tums) [...] -03 (Same as: l odium 20:18: Phos-NaK) [place] phosphate 00 Each 1.5 250 mg-280 gm pkt has mg-160 mg 250mg oral powder phosphorou for s. Mix reconstitut w/2.5oz ion water and stir. Magnesium No Notes: Memori a Sulfate 10-08 WASTE: F/P l 20:18: - Sink; E [place] 00 - Municipal Trash Bin sodium No Notes: Memoria phosphate 3-03 Infuse l 20:18: over 4 [place] 00 hour. Do not infuse phosphorou s [...] PRN Hypertensi on, Start date: 10/08/18 14:13:00 QUALITY CONTROL TECHNICIAN, Duration: 30 day, Stop date: 11/07/18 14:12:00 CDT Hydralazine No Notes: [place] anny 3-03 (Same as: l 20:13: Apresoline ) Push over 5 minutes Labetalol No 10 mg, 2 [place] anny 3-03 mL, Route: l 20:13: IVP, Drug form: INJ, Q4H, Dosing Weight 95.455, kg, PRN Hypertensi on, Start date: 10/08/18 14:13:00 QUALITY CONTROL TECHNICIAN, Duration: 30 day, Stop date: 11/07/18 14:12:00 CDT sugammadex No Route: IV, M emoria (ANES) 10-08 Drug form: l 18:30: SOLN, [place] 00 ONCE, Stop date: 10/08/18 12:30:00 QUALITY CONTROL TECHNICIAN sugammadex 2018-0 No Route: IV, M emoria (ANES) 3 Drug form: l 18:30: SOLN, [place] 00 ONCE, Stop date: 10/08/18 12:30:00 QUALITY CONTROL TECHNICIAN Hydralazine No 10 mg, [place] anny 3-03 Route: l 18:18: IVP, [place] 00 Q20Min, Dosing Weight 95.455, kg, PRN Elevated BP, Start date: 10/08/18 12:18:00 QUALITY CONTROL TECHNICIAN, Duration: 2 doses or times, Stop date: Limited # of times Labetalol 2019-0 No 10 mg, 2 [place] anny 3-03 mL, Route: l 18:18: IVP, Drug form: INJ, Q5Min, Dosing Weight 95.455, kg, PRN Elevated BP, Start date: 10/08/18 12:18:00 QUALITY CONTROL TECHNICIAN, Duration: 5 doses or times, Stop date: 10/09/18 0:00:00 QUALITY CONTROL TECHNICIAN Acetaminoph 2019-0 No 1,000 mg, M emoria en 10-08 Route: PO, l 18:18: Drug form: [place] 00 TAB, ONCE, Dosing Weight 95.455, kg, PRN Pain Score 1-3, Start date: 10/08/18 12:18:00 QUALITY CONTROL TECHNICIAN Promethazin 2019-0 No 6.25 mg, Me moria e 10-08 Route: l 18:18: IVPB, [place] 00 ONCE, Dosing Weight 95.455, kg, PRN Nausea & Vomiting, Start date: 10/08/18 12:18:00 QUALITY CONTROL TECHNICIAN Ondansetron 2019-0 No 4 mg, Memor ia 10-08 Route: l 18:18: IVP, ONCE, Dosing Weight 95.455, kg, PRN Nausea & Vomiting, Start date: 10/08/18 12:18:00 QUALITY CONTROL TECHNICIAN Dexamethaso 2019-0 No 4 mg, Memor ia ne 10-08 Route: l 18:18: IVP, ONCE, Dosing Weight 95.455, kg, PRN Nausea & Vomiting, Start date: 10/08/18 12:18:00 QUALITY CONTROL TECHNICIAN Naloxone 2019-0 No 0.4 mg, Memori a 10-08 Route: l 18:18: IVP, [place] 00 Q2MIN, Dosing Weight 95.455, kg, PRN Narcotic Reversal, Start date: 10/08/18 12:18:00 QUALITY CONTROL TECHNICIAN, Duration: 8 doses or times, Stop date: Limited # of times Flumazenil 2019-0 No 0.2 mg, [place] anny 10-08 Route: l 18:18: IVP, PRN, [place] 00 Dosing Weight 95.455, kg, PRN Benzodiaze pine Reversal, Initial dose, Start date: 10/08/18 12:18:00 QUALITY CONTROL TECHNICIAN, Duration: 30 day, Stop date: 11/07/18 13:17:00 CDT Hydromorpho 2019-0 No 0.5 mg, Mem oria ne 3-03 Route: l 18:18: IVP, [place] 00 Q5Min, Dosing Weight 95.455, kg, PRN Pain Score 7-10, Start date: 10/08/18 12:18:00 QUALITY CONTROL TECHNICIAN, Duration: 4 doses or times, Stop date: Limited # of times Hydralazine 2019-0 No 10 mg, Edison anny 3-03 Route: l 18:18: IVP, [place] 00 Q20Min, Dosing Weight 95.455, kg, PRN Elevated BP, Start date: 10/08/18 12:18:00 QUALITY CONTROL TECHNICIAN, Duration: 2 doses or times, Stop date: Limited # of times Labetalol 2019-0 No 10 mg, 2 Edison anny 3-03 mL, Route: l 18:18: IVP, Drug form: INJ, Q5Min, Dosing Weight 95.455, kg, PRN Elevated BP, Start date: 10/08/18 12:18:00 QUALITY CONTROL TECHNICIAN, Duration: 5 doses or times, Stop date: 10/09/18 0:00:00 QUALITY CONTROL TECHNICIAN Acetaminoph 2019-0 No 1,000 mg, M emoria en 3- Route: PO, l 18:18: Drug form: [place] 00 TAB, ONCE, Dosing Weight 95.455, kg, PRN Pain Score 1-3, Start date: 10/08/18 12:18:00 QUALITY CONTROL TECHNICIAN Promethazin 2019-0 No 6.25 mg, Me moria e 3- Route: l 18:18: IVPB, [place] 00 ONCE, Dosing Weight 95.455, kg, PRN Nausea & Vomiting, Start date: 10/08/18 12:18:00 QUALITY CONTROL TECHNICIAN Ondansetron 2019-0 No 4 mg, Memor ia 3- Route: l 18:18: IVP, ONCE, Dosing Weight 95.455, kg, PRN Nausea & Vomiting, Start date: 10/08/18 12:18:00 QUALITY CONTROL TECHNICIAN Dexamethaso 2019-0 No 4 mg, Memor ia ne 10-08 Route: l 18:18: IVP, ONCE, Dosing Weight 95.455, kg, PRN Nausea & Vomiting, Start date: 10/08/18 12:18:00 QUALITY CONTROL TECHNICIAN Naloxone 2018-0 No 0.4 mg, Memori a 10-08 Route: l 18:18: IVP, [place] 00 Q2MIN, Dosing Weight 95.455, kg, PRN Narcotic Reversal, Start date: 10/08/18 12:18:00 QUALITY CONTROL TECHNICIAN, Duration: 8 doses or times, Stop date: Limited # of times Flumazenil 2018-0 No 0.2 mg, Edison anny 10-08 Route: l 18:18: IVP, PRN, [place] 00 Dosing Weight 95.455, kg, PRN Benzodiaze pine Reversal, Initial dose, Start date: 10/08/18 12:18:00 QUALITY CONTROL TECHNICIAN, Duration: 30 day, Stop date: 11/07/18 13:17:00 CDT Hydromorpho 2018-0 No 0.5 mg, Mem oria ne 10-08 Route: l 18:18: IVP, [place] 00 Q5Min, Dosing Weight 95.455, kg, PRN Pain Score 7-10, Start date: 10/08/18 12:18:00 QUALITY CONTROL TECHNICIAN, Duration: 4 doses or times, Stop date: Limited # of times sugammadex 0 No Notes: Memor ia 3-03 (Same as: l 18:00: [place]) sugammadex 2018-0 No Notes: Memor ia 3-03 (Same as: l 18:00: [place]) famotidine No Route: IV, M emoria (ANES) 10-08 Drug form: l 17:59: INJ, ONCE, Stop date: 10/08/18 11:59:00 QUALITY CONTROL TECHNICIAN metoclopram No Route: IV, Memoria anais (ANES) 10-08 Drug form: l 17:59: INJ, ONCE, Stop date: 10/08/18 11:59:00 QUALITY CONTROL TECHNICIAN ondansetron No Route: IV, Memoria (ANES) - Drug form: l 17:59: INJ, ONCE, Stop date: 10/08/18 11:59:00 QUALITY CONTROL TECHNICIAN famotidine 2018-0 No Route: IV, M emoria (ANES) 10-08 Drug form: l 17:59: INJ, ONCE, Stop date: 10/08/18 11:59:00 QUALITY CONTROL TECHNICIAN metoclopram 2018-0 No Route: IV, Memoria anais (ANES) 10-08 Drug form: l 17:59: INJ, ONCE, Stop date: 10/08/18 11:59:00 QUALITY CONTROL TECHNICIAN ondansetron 2018-0 No Route: IV, Memoria (ANES) 10-08 Drug form: l 17:59: INJ, ONCE, Stop date: 10/08/18 11:59:00 QUALITY CONTROL TECHNICIAN phenylephri 2018-0 No Route: IV, Memoria ne (ANES) 10-08 Drug form: l 17:57: INJ, ONCE, Stop date: 10/08/18 11:57:00 QUALITY CONTROL TECHNICIAN phenylephri 2018-0 No Route: IV, Memoria ne (ANES) 10-08 Drug form: l 17:57: INJ, ONCE, Stop date: 10/08/18 11:57:00 QUALITY CONTROL TECHNICIAN lidocaine 2018-0 No Route: IV, Me moria (ANES) 10-08 Drug form: l 17:51: INJ, ONCE, Stop date: 10/08/18 11:51:00 QUALITY CONTROL TECHNICIAN dexamethaso 2018-0 No Route: IV, Memoria ne (ANES) 10-08 Drug form: l 17:51: INJ, ONCE, Stop date: 10/08/18 11:51:00 QUALITY CONTROL TECHNICIAN propofol 2019-0 No Route: IV, Mem oria (ANES) 10-08 Drug form: l 17:51: INJ, ONCE, Stop date: 10/08/18 11:51:00 QUALITY CONTROL TECHNICIAN rocuronium 2018-0 No Route: IV, M emoria (ANES) 10-08 Drug form: l 17:51: INJ, ONCE, Stop date: 10/08/18 11:51:00 QUALITY CONTROL TECHNICIAN levETIRAcet 2018-0 No Route: IV, Memoria am (ANES) 10-08 Drug form: l 17:51: INJ, ONCE, Stop date: 10/08/18 11:51:00 QUALITY CONTROL TECHNICIAN fentaNYL 2019-0 No Route: IV, Mem oria (ANES) 10-08 Drug form: l 17:51: INJ, ONCE, Stop date: 10/08/18 11:51:00 QUALITY CONTROL TECHNICIAN lidocaine 2019-0 No Route: IV, Me moria (ANES) 10-08 Drug form: l 17:51: INJ, ONCE, Stop date: 10/08/18 11:51:00 QUALITY CONTROL TECHNICIAN dexamethaso 2018-0 No Route: IV, Memoria ne (ANES) 10-08 Drug form: l 17:51: INJ, ONCE, Stop date: 10/08/18 11:51:00 QUALITY CONTROL TECHNICIAN propofol 2019-0 No Route: IV, Mem oria (ANES) 10-08 Drug form: l 17:51: INJ, ONCE, Stop date: 10/08/18 11:51:00 QUALITY CONTROL TECHNICIAN rocuronium 2019-0 No Route: IV, M emoria (ANES) 10-08 Drug form: l 17:51: INJ, ONCE, Stop date: 10/08/18 11:51:00 QUALITY CONTROL TECHNICIAN levETIRAcet 2018-0 No Route: IV, Memoria am (ANES) 10-08 Drug form: l 17:51: INJ, ONCE, Stop date: 10/08/18 11:51:00 QUALITY CONTROL TECHNICIAN fentaNYL 2019-0 No Route: IV, Mem oria (ANES) 10-08 Drug form: l 17:51: INJ, ONCE, Stop date: 10/08/18 11:51:00 QUALITY CONTROL TECHNICIAN propofol 2019-0 No Route: IV, Mem oria (ANES) 10 10-08 Drug form: l mg 16:30: INJ, Start date: 10/08/18 10:30:00 QUALITY CONTROL TECHNICIAN, Stop date: 10/08/18 11:30:00 QUALITY CONTROL TECHNICIAN remifentani 2019-0 No Route: IV, Memoria l (ANES) 1 10-08 Drug form: l mg 16:30: INJ, Start date: 10/08/18 10:30:00 QUALITY CONTROL TECHNICIAN, Stop date: 10/08/18 11:30:00 QUALITY CONTROL TECHNICIAN propofol 2019-0 No Route: IV, Mem oria (ANES) 10 10-08 Drug form: l mg 16:30: INJ, Start [place] 00 date: 10/08/18 10:30:00 QUALITY CONTROL TECHNICIAN, Stop date: 10/08/18 11:30:00 QUALITY CONTROL TECHNICIAN remifentani 2018-0 No Route: IV, Memoria l (ANES) 1 10-08 Drug form: l mg 16:30: INJ, Start [place] 00 date: 10/08/18 10:30:00 QUALITY CONTROL TECHNICIAN, Stop date: 10/08/18 11:30:00 QUALITY CONTROL TECHNICIAN Sodium 2018-0 No Route: IV, Memor ia Chloride 10-08 Drug form: l 0.9% IV 16:25: INJ, Start Herm ree (ANES) 235 00 date: mL + 10/08/18 vancomycin 10:25:00 (ANES) 1500 QUALITY CONTROL TECHNICIAN, Stop mg date: 10/08/18 11:25:00 QUALITY CONTROL TECHNICIAN Sodium 2018-0 No Route: IV, Memor ia Chloride 10-08 Drug form: l 0.9% IV 16:25: INJ, Start Herm ree (ANES) 235 00 date: mL + 10/08/18 vancomycin 10:25:00 (ANES) 1500 QUALITY CONTROL TECHNICIAN, Stop mg date: 10/08/18 11:25:00 QUALITY CONTROL TECHNICIAN Isolyte S 2018-0 No Route: IV, Me moria PH 7.4 3-03 Total l (ANES) 1000 16:09: Volume: Her salas mL 00 1,000, Start date: 10/08/18 10:09:00 QUALITY CONTROL TECHNICIAN, Stop date: 10/08/18 11:09:00 QUALITY CONTROL TECHNICIAN Isolyte S 2018-0 No Route: IV, Me moria PH 7.4 3-03 Total l (ANES) 1000 16:09: Volume: Her salas mL 00 1,000, Start date: 10/08/18 10:09:00 QUALITY CONTROL TECHNICIAN, Stop date: 10/08/18 11:09:00 QUALITY CONTROL TECHNICIAN Saline 2018-0 No Notes: Memoria Flush 0.9% 10-08 (Same as: l 15:57: BD [place] 00 Posiflush) Albuterol 2018-0 No 3 ml, Memoria 0.833 MG/ML 10-08 Route: l / 15:57: NEB, Drug [place] Ipratropium 00 Form: [place] SOLN, 0.167 MG/ML Dosing Inhalant Weight Solution 95.455, kg, RQ4H, PRN Wheezing, Start date: 10/08/18 9:57:00 QUALITY CONTROL TECHNICIAN, Duration: 30 day, Stop date: 11/07/18 9:56:00 CDT Labetalol 0 No 10 mg, 2 Edison anny 3-03 mL, Route: l 15:57: IVP, Drug form: INJ, Q15Min, Dosing Weight 95.455, kg, PRN Hypertensi on, Start date: 10/08/18 9:57:00 QUALITY CONTROL TECHNICIAN, Duration: 30 day, Stop date: 11/07/18 10:56:00 CDT Hydralazine No 20 mg, 1 Me moria 3-03 mL, Route: l 15:57: IVP, Drug form: INJ, Q4H, Dosing Weight 95.455, kg, PRN Hypertensi on, Start date: 10/08/18 9:57:00 QUALITY CONTROL TECHNICIAN, Duration: 30 day, Stop date: 11/07/18 9:56:00 CDT Sodium No 1,000 mL, Memori a Chloride 10-08 Rate: 50 l 0.9% IV 15:57: ml/hr, Carlos 1,000 mL 00 Infuse over: 20 hr, Route: IV, Dosing Weight 95.455 kg, Total Volume: 1,000, Start date: 10/08/18 9:57:00 QUALITY CONTROL TECHNICIAN, Duration: 30 day, Stop date: 11/07/18 9:56:00 CDT, 2.16, m2 Levetiracet 0 No Notes: Edison anny am 10-08 Same as l 15:57: Keppra Mix with 100 mL NS, LR or D5W MEDICATION WASTE Product Size: 500 mg Product Wasted: ___ mg Acetaminoph No 100.4 F, M emoria en 10-08 Start l 15:57: date: 10/08/18 9:57:00 QUALITY CONTROL TECHNICIAN, Duration: 30 day, Stop date: 11/07/18 9:56:00 CDT Ondansetron 0 No Notes: Memoria 3-03 MEDICATION l 15:57: WASTE Product Size: 4 mg Product Wasted: ___ mg Bisacodyl 2019-0 No 10 mg, 1 Edison anny 3-03 supp, l 15:57: Route: [place], [place] 00 Drug form: SUPP, Daily, Dosing Weight 95.455, kg, PRN Constipati on, Start date: 10/08/18 9:57:00 QUALITY CONTROL TECHNICIAN, Duration: 30 day, Stop date: 11/07/18 9:56:00 CDT Saline 2019-0 No Notes: Memoria Flush 0.9% 10-08 (Same as: l 15:57: BD [place] 00 Posiflush) Albuterol 2019-0 No 3 ml, Memoria 0.833 MG/ML 10-08 Route: l / 15:57: NEB, Drug Ipratropium 00 Form: [place] SOLN, 0.167 MG/ML Dosing Inhalant Weight Solution 95.455, kg, RQ4H, PRN Wheezing, Start date: 10/08/18 9:57:00 QUALITY CONTROL TECHNICIAN, Duration: 30 day, Stop date: 11/07/18 9:56:00 CDT Labetalol 2019-0 No 10 mg, 2 Edison anny 3-03 mL, Route: l 15:57: IVP, Drug form: INJ, Q15Min, Dosing Weight 95.455, kg, PRN Hypertensi on, Start date: 10/08/18 9:57:00 QUALITY CONTROL TECHNICIAN, Duration: 30 day, Stop date: 11/07/18 10:56:00 CDT Hydralazine 2018-0 No 20 mg, 1 Me moria 3-03 mL, Route: l 15:57: IVP, Drug form: INJ, Q4H, Dosing Weight 95.455, kg, PRN Hypertensi on, Start date: 10/08/18 9:57:00 QUALITY CONTROL TECHNICIAN, Duration: 30 day, Stop date: 11/07/18 9:56:00 CDT Sodium 2019-0 No 1,000 mL, Memori a Chloride 10-08 Rate: 50 l 0.9% IV 15:57: ml/hr, Carlos 1,000 mL 00 Infuse over: 20 hr, Route: IV, Dosing Weight 95.455 kg, Total Volume: 1,000, Start date: 10/08/18 9:57:00 QUALITY CONTROL TECHNICIAN, Duration: 30 day, Stop date: 11/07/18 9:56:00 CDT, 2.16, m2 Levetiracet 2019-0 No Notes: Edison anny am 10-08 Same as l 15:57: Keppra Mix with 100 mL NS, LR or D5W MEDICATION WASTE Product Size: 500 mg Product Wasted: ___ mg Acetaminoph 2018-0 No 100.4 F, M emoria en - Start l 15:57: date: [place] 10/08/18 9:57:00 QUALITY CONTROL TECHNICIAN, Duration: 30 day, Stop date: 11/07/18 9:56:00 CDT Ondansetron 2018-0 No Notes: Memoria - MEDICATION l 15:57: WASTE Product Size: 4 mg Product Wasted: ___ mg Bisacodyl 2018-0 No 10 mg, 1 Edison anny 10-08 supp, l 15:57: Route: [place], [place] 00 Drug form: SUPP, Daily, Dosing Weight 95.455, kg, PRN Constipati on, Start date: 10/08/18 9:57:00 QUALITY CONTROL TECHNICIAN, Duration: 30 day, Stop date: 11/07/18 9:56:00 CDT Zofran 2018-0 No 4 mg, Memoria 3- Route: l 15:09: IVP, Drug form: INJ, ONCE, Dosing Weight 95.455, kg, Priority: STAT, Start date: 10/08/18 9:09:00 QUALITY CONTROL TECHNICIAN, Stop date: 10/08/18 9:09:00 QUALITY CONTROL TECHNICIAN Morphine 2018-0 No 4 mg, Memoria -03 Route: l 15:09: IVP, ONCE, Dosing Weight 95.455, kg, Priority: STAT, Start date: 10/08/18 9:09:00 QUALITY CONTROL TECHNICIAN, Stop date: 10/08/18 9:09:00 QUALITY CONTROL TECHNICIAN Sodium 2018-0 No 1,000 mL, Memori a Chloride 10-08 Infuse l 0.9% 15:09: Over: 1 [place] (Bolus) IV 00 hr, Route: IV, ONCE, Priority: STAT, Dosing Weight 95.455 kg, Start date: 10/08/18 9:09:00 QUALITY CONTROL TECHNICIAN, Stop date: 10/08/18 9:09:00 QUALITY CONTROL TECHNICIAN Zofran 2019-0 No 4 mg, Memoria 3- Route: l 15:09: IVP, Drug form: INJ, ONCE, Dosing Weight 95.455, kg, Priority: STAT, Start date: 10/08/18 9:09:00 QUALITY CONTROL TECHNICIAN, Stop date: 10/08/18 9:09:00 QUALITY CONTROL TECHNICIAN Morphine 2019-0 No 4 mg, Memoria 3- Route: l 15:09: IVP, ONCE, Dosing Weight 95.455, kg, Priority: STAT, Start date: 10/08/18 9:09:00 QUALITY CONTROL TECHNICIAN, Stop date: 10/08/18 9:09:00 QUALITY CONTROL TECHNICIAN Sodium 2019-0 No 1,000 mL, Memori a Chloride - Infuse l 0.9% 15:09: Over: 1 [place] (Bolus) IV 00 hr, Route: IV, ONCE, Priority: STAT, Dosing Weight 95.455 kg, Start date: 10/08/18 9:09:00 QUALITY CONTROL TECHNICIAN, Stop date: 10/08/18 9:09:00 QUALITY CONTROL TECHNICIAN Sulfamethox Sulfamethox Yes Gianna not Common azole-TMP azole-TMP Velez defined S pirit DS DS - [facility] Tramadol Tramadol Yes Gianna 1 tablet C ommon HCl HCl Velez as needed Spirit - [facility] Naproxen Naproxen Yes Gianna 1 tablet C ommon Velez with food Spirit or milk as - [facility] needed [facility] Vital Signs Vital Name Observation Time Observation Value Comments Source Systolic blood 2022-01-25 19:43:00 131 mm[Hg] [facility] Diastolic blood 2022-01-25 19:43:00 85 mm[Hg[facility] Heart rate 2022-01-25 19:43:00 80 /min [facility] Body temperature 2022-01-25 19:43:00 35.94 [facility] Respiratory rate 2022-01-25 19:43:00 18 /min [facility] Body height 2022-01-25 19:43:00 172.7 cm [facility] Body weight 2022-01-25 19:43:00 94.802 kg [facility] BMI 2022-01-25 19:43:00 31.78 kg/m2 [facility] Heart Rate 2018-10-11 17:26:00 [facility] [place] Temperature Oral (F) 2018-10-11 17:26:00 97.9 F [facility] [place] Respitory Rate 2018-10-11 17:26:00 Memori al [place] Systolic (mm Hg) 2018-10-11 17:26:00 Edison rial [place] Diastolic (mm Hg) 2018-10-11 17:26:00 Mem orial [place] Systolic (mm Hg) 2018-10-11 13:44:00 Edison rial [place] Diastolic (mm Hg) 2018-10-11 13:44:00 Mem orial [place] Respitory Rate 2018-10-11 13:44:00 Memori al [place] Heart Rate 2018-10-11 13:44:00 [facility] [place] Temperature Oral (F) 2018-10-11 13:44:00 99.1 F [facility] [place] Temperature Oral (F) 2018-10-11 10:47:00 97.9 F [facility] [place] Heart Rate 2018-10-11 10:47:00 [facility] [place] Respitory Rate 2018-10-11 10:47:00 Memori al [place] Systolic (mm Hg) 2018-10-11 10:47:00 Edison rial [place] Diastolic (mm Hg) 2018-10-11 10:47:00 Mem orial [place] Weight 2018-10-08 21:12:00 [facility] [place] Weight 2018-10-08 14:38:00 [facility] [place] Height 2018-10-08 14:38:00 172.72 cm [facility] [place] BMI Calculated 2018-10-08 14:38:00 Memori al [place] Procedures Procedure Date / Time Performing Clinician Source Performed US RETROPERITONEAL 2022-03-16 15:37:56 Lidia Yancey [facility] Branch POCT URINALYSIS AUTO 2022-01-25 19:47:00 Lidia Yancey [facility] AUTHORIZATION FOR RELEASE 2021-11-10 05:01:00 Doctor Unassigned, [facility] [place] [facility] Encounters Start End Encounter Admission Attending Care Care Encounter Source Date/Time Date/Time Type Type Clinicians Facility Department ID 2022-01-27 Outpatient Velez, STLMLC STLMLC [id number] Common 09:17:01 Gianna [facility] 2021-12-28 Outpatient Velez, STLMLC STLMLC [id number] Common 14:58:02 Gianna [facility] 2021-12-23 Outpatient Velez, STLMLC STLMLC [id number] Common 10:50:32 Gianna [facility] 2021-09-21 Outpatient VELEZ, [facility] [id number] [place] 08:39:13 [facility] 2021-09-07 Outpatient Velez, STLMLC STLMLC [id number] Common 10:55:02 Gianna [facility] 2021-09-02 Outpatient Velez, STLMLC STLMLC [id number] Common 14:16:27 Gianna [id number] [facility] 2021-09-02 Outpatient Velez, STLMLC STLMLC [id number] Common 14:04:31 Gianna [id number] [facility] 2021-09-02 Outpatient Velez, STLMLC STLMLC [id number] Common 13:55:58 Gianna [id number] [facility] 2021-09-02 Outpatient Velez, STLMLC STLMLC [id number] Common 13:16:30 Gianna [id number] [facility] 2021-09-02 Outpatient Velez, STLMLC STLMLC [id number] Common 13:09:28 Gianna [id number] [facility] 2021-09-02 Outpatient Velez, STLMLC STLMLC [id number] Common 13:08:55 Gianna [id number] [facility] 2021-09-02 Outpatient Velez, STLMLC STLMLC [id number] Common 12:53:51 Gianna [id number] [facility] 2021-09-02 Outpatient Velez, STLMLC STLMLC [id number] Common 12:45:22 Gianna [id number] [facility] 2021-09-02 Outpatient Velez, STLMLC STLMLC [id number] Common 12:36:15 Gianna [id number] [facility] 2021-09-02 Outpatient Velez, STLMLC STLMLC [id number] Common 12:19:27 Gianna [id number] [facility] 2021-09-02 Outpatient Velez, STLMLC STLMLC [id number] Common 12:07:47 Gianna [id number] [facility] 2021-09-02 Outpatient Velez, STLMLC STLMLC [id number] Common 12:07:23 Gianna [id number] [facility] 2021-09-02 Outpatient Velez, STLMLC STLMLC [id number] Common 11:44:55 Gianna 23425 [facility] 2021-09-02 Outpatient Velez, STLMLC STLMLC [id number] Common 11:42:01 Gianna [id number] [facility] 2021-09-02 Outpatient Velez, STLMLC STLMLC [id number] Common 11:39:14 Gianna [id number] [facility] 2021-09-02 Outpatient Velez, STLMLC STLMLC [id number] Common 11:33:37 Gianna [id number] [facility] 2018-10-08 [id number] 09:57:00 2022-07-28 2022-07-28 Outpatient R [facility] [id number] [facility] 10:00:00 10:00:00 PINA [id number] diane o f [facility] 2022-04-29 2022-04-29 [facility] [id number] Univers 10:00:00 10:00:00 ALEXYS [id number] [facility] 2022-03-16 2022-03-16 [facility] [id number] Univers 10:05:27 23:59:00 LIDIA [facility] 2022-03-16 2022-03-16 [facility] [id number] Univers : 23:59:00 Encounter Lidia LUNDY [id number] ity [facility] [id number] [place] [id number] [facility] [address] [place] 2022-03-16 2022-03-16 [facility] [id number] Univers 10:00:00 10:00:00 [facility] [id number] [facility] 2022-02-03 2022-02-03 [facility] [id number] Univers 16:15:00 16:15:00 PATSY [facility] 2022-01-27 2022-01-27 ambulatory STLMLC STLMLC [id number] Common 00:00:00 00:00:00 [facility] 2022-01-25 2022-01-25 Office [facility] [id number] Univers 13:45:00 14:56:27 Visit Lidia LUNDY [id number] i ty [facility] [id number] [id number] [place] [address] 2022-01-25 2022-01-25 [facility] [id number] Univers 13:45:00 14:56:27 [facility] 2022-01-07 2022-01-07 ambulatory STLMLC STLMLC [id number] Common 00:00:00 00:00:00 [facility] 2021-12-28 2021-12-28 ambulatory STLMLC STLMLC [id number] Common 00:00:00 00:00:00 [facility] 2021-12-25 2021-12-25 ambulatory STLMLC STLMLC [id number] Common 00:00:00 00:00:00 [facility] 2021-11-12 2021-11-12 ambulatory STLMLC STLMLC [id number] Common 00:00:00 00:00:00 [facility] 2021-11-10 2021-11-10 Orders Doctor KEDAR [id number] Univers 00:00:00 00:00:00 Only Unassigned, NIKO [id number] ity of [place] [facility] [id number] Alli as [id number] [place] [address] Branch 2021-09-29 2021-09-29 ambulatory STLMLC STLMLC [id number] Common 00:00:00 00:00:00 [facility] 2021-09-23 2021-09-23 ambulatory STLMLC STLMLC [id number] Common 00:00:00 00:00:00 [facility] 2021-09-22 2021-09-22 ambulatory STLMLC STLMLC [id number] Common 00:00:00 00:00:00 [facility] 2021-09-22 2021-09-22 ambulatory STLMLC STLMLC [id number] Common 00:00:00 00:00:00 [facility] 2021-09-21 2021-09-21 ambulatory STLMLC STLMLC [id number] Common 00:00:00 00:00:00 [facility] 2021-09-17 2021-09-17 Telephone Nilda Serrano [facility] [id number] [place] 00:00:00 00:00:00 Nilda Serrano [facility] [id number] Health [address] [id number] 2021-09-16 2021-09-16 Telephone VERONICA Velez [id number] [place] 00:00:00 00:00:[address] [id number] Health [id number] 2021-07-01 2021-07-01 ambulatory STLMLC STLMLC [id number] Common 00:00:00 00:00:00 [facility] 2021-06-30 2021-06-30 ambulatory STLMLC STLMLC [id number] Common 00:00:00 00:00:00 [facility] 2021-05-05 2021-05-05 Outpatient STLMLC STLMLC [id number] Common 00:00:00 00:00:00 [facility] 2021-02-23 2021-02-23 Outpatient STLMLC STLMLC [id number] Common 00:00:00 00:00:00 [facility] 2021-02-23 2021-02-23 Outpatient STLMLC STLMLC [id number] Common 00:00:00 00:00:00 [facility] 2021-01-26 2021-01-26 Outpatient STLMLC STLMLC [id number] Common 00:00:00 00:00:00 [facility] 2021-01-23 2021-01-23 Office [facility] [id number] 08:50:29 10:03:02 Visit [facility] [id number] [place] [id number] [place] [phone] Medical 098 Office Building 2021-01-23 2021-01-23 Orders Doctor [facility] [id number] 00:00:00 00:00:00 Only Unassigned, [place] [id number] [place] [facility] [id number] 2021-01-15 2021-01-15 Outpatient STLMLC STLMLC [id number] Common 00:00:00 00:00:00 [facility] 2021-01-06 2021-01-06 Outpatient STLMLC STLMLC [id number] Common 00:00:00 00:00:00 [facility] 2020-11-25 2020-11-25 Outpatient STLMLC STLMLC [id number] Common 00:00:00 00:00:00 [facility] 2020-09-11 2020-09-11 Outpatient STLMLC STLMLC [id number] Common 00:00:00 00:00:00 [facility] 2020-09-11 2020-09-11 Outpatient STLMLC STLMLC [id number] Common 00:00:00 00:00:00 [facility] 2020-08-14 2020-08-14 Outpatient STLMLC STLMLC [id number] Common 00:00:00 00:00:00 [facility] 2020-07-16 2020-07-16 Outpatient STLMLC STLMLC [id number] Common 00:00:00 00:00:00 [facility] 2020-03-26 2020-03-26 [facility] [id number] Common 15:00:00 15:00:[address] [facility] 2020-03-24 2020-03-24 [facility] [id number] Common 08:34:00 08:34:[address] [facility] 2020-03-18 2020-03-18 [facility] [id number] Common 16:45:00 16:45:[address] [facility] 2020-03-18 2020-03-18 [facility] [id number] Common 15:30:00 15:30:[address] [facility] 2020-03-05 2020-03-05 [facility] [id number] Common 10:30:00 10:30:[address] [facility] 2019-04-04 2019-04-06 Phone nullFlavo MNA [id number] [place]oria 17:21:53 04:59:59 Message r Neurosurger 05 l y [facility] 2018-12-21 2018-12-23 Phone nullFlavo MNA [id number] [place] 15:05:32 04:59:59 Message r Neurosurger 04 l y [facility] 2018-12-08 2018-12-10 Phone nullFlavo MNA [id number] [place] 18:27:20 04:59:59 Message r Neurosurger 03 l y [facility] 2018-12-07 2018-12-08 Outpatient nullFlavo MNA [id number] [place] 16:15:00 04:59:59 r Neurosurger 01 l y [facility] 2018-12-07 2018-12-08 Outpt Diag nullFlavo [facility] [id number] Memoria 15:09:00 04:59:00 Services r Outpatient 01 l Imaging [facility] 2018-10-31 2018-11-02 Phone nullFlavo MNA [id number] [place] 17:52:00 04:59:59 Message r Neurosurger 02 l y [facility] 2018-10-27 2018-10-29 Phone nullFlavo MNA [phone] Memoria 14:49:00 04:59:59 Message r Neurosurger 01 l y [facility] 2018-10-26 2018-10-27 Outpatient nullFlavo SDA [phone] Memoria 17:15:00 04:59:59 r Neurosurger 00 l y [facility] 2018-10-24 2018-10-25 Outpt Diag nullFlavo [facility] [phone] Memoria 13:26:00 04:59:00 Services r Outpatient 00 l Imaging [facility] 2018-10-17 2018-10-19 Phone nullFlavo SDA [phone] Memoria 15:08:00 04:59:59 Message r Neurosurger [address] [facility] 2018-10-08 2018-10-11 Inpatient nullFlavo [facility] [phone] Memoria 14:37:00 21:18:[address] Results Test Description Test Time Test Comments Results Result Comments Source POCT URINALYSIS, INSTRUMENT 2022-01-25 19:47:00 Test Item Value Reference Range Interpretation Comme nts POCT U SP GRAV (test code = 3255) >1.030 1.005-1.025 A POCT PH U (test code = 3254) 6.0 mg/dl 5-8 POCT U LEUK EST (test code = 3263) negative Negative - Negative POCT U NIT (test code = 3262) negative Negative - Negative POCT U PROT (test code = 3259) negative Negative - Negative POCT U GLU (test code = 3256) negative Negative - Negative POCT U KETONE (test code = 3258) trace Negative - Negative POCT U UROBILI (test code = 3260) 0.2 mg/dl 0.2-1 POCT U BILI (test code = 3261) negative Negative - Negative POCT U BLD (test code = 3257) negative Negative - Negative POCT U COLOR (test code = 3266) yellow POCT U APPEAR (test code = 3267) clear Lab Interpretation (test code = 38488-0) Abnormal [facility], FRCUERFQXI7239-09-63 19:47:00 Test Item Value Reference Range Interpretation Comments POCT U SP GRAV (test code = >1.030 1.005-1.025 A 3255) POCT PH U (test code = 3254) 6.0 mg/dl 5-8 POCT U LEUK EST (test code = negative Negative - Negative 3263) POCT U NIT (test code = 3262) negative Negative - Negative POCT U PROT (test code = 3259) negative Negative - Negative POCT U GLU (test code = 3256) negative Negative - Negative POCT U KETONE (test code = trace Negative - Negative 3258) POCT U UROBILI (test code = 0.2 mg/dl 0.2-1 3260) POCT U BILI (test code = 3261) negative Negative - Negative POCT U BLD (test code = 3257) negative Negative - Negative POCT U COLOR (test code = 3266) yellow POCT U APPEAR (test code = clear 3267) Lab Interpretation (test code = Abnormal 50694-1) [facility] TUVQS2172-55-05 06:11:0073[facility] LAALG4620-37-44 06:11:0074[facility]annCHEM NGZVB1279-07-46 06:11:000.93[facility]annCHEM BQMRR1037-19-40 06:11:01623Mrdvtyiy HermannCHEM ZYQAW8687-07-43 06:11:0018[facility]annCHE[facility] TVLRF8601-69-94 06:11:008.9 [facility]annCHE[facility] OVOMJ2736-33-12 06:11:003.9[facility]annCHEM PANEL 2018-10-11 06:11:23882Vstwwmqv HermannCHEM QMEUC3148-87-22 06:11:0026[facility]annCHEM PQBSK7499-52-60 06:11:0011.9[facility] UoxwttoLVCEPMMIZR5441-21-23 06:11:009.0[facility] PpcebzfVBCEJUUXPU3622-71-76 06:11:88639Jvayqaag [place] DKHYBYUCZF5357-98-78 06:11:008.7[facility] SlhdjeaUVAZHFQIAV1976-42-36 06:11:00 13.6[facility] YwllolqUEPUPBIPYX6331-00-33 06:11:0033.2[facility]annHEMATOLOGY 2018-10-11 06:11:00 Test Item Value Reference Range Interpretation Comments MCH (test code = MCH) 29.6 pg 27.0-31.0 [facility] EamztnrZJLJWJJXLI8953-43-70 06:11:0038.3[facility]annHEMATOLOGY 2018-10-11 06:11:004.30[facility] FqbztalBLPFQGJPJC7138-19-51 06:11:0089.1[facility] MndhsihPBYPJPAPNG7361-16-38 06:11:0012.7[facility] PlrmhxtCUEMJZFJXT2667-79-45 06:11:002.9[facility] NflsrwvIRLKKDQVIL7463-66-40 06:11:0028.7[facility] KOEMTPAAKN7988-48-55 06:11:009.5[facility] DgpfatgCDFDMPBTGX5102-67-70 06:11:00 58.7[facility] IaznmseWQHQRHIWAH8397-03-73 06:11:002.6[facility]annHEMATOLOGY 2018-10-11 06:11:000.3[facility] CiewsynJNPRXVTDFH1605-15-97 06:11:000.2[facility] WowwrehNMDTGBXGQB5546-03-95 06:11:005.3[facility] VncdjonNDGFHWHLMC8928-83-44 06:11:000.9[facility] MrcxpxjAIQIWXZSJQ4242-24-25 06:11:009.0[facility] UHUGIBZEIH5477-48-43 06:11:07433Aubtqrub UyifgqaPYDWIXRXHB0874-78-40 06:11:008.7 [facility] KfrqxoiOXSAENHNPT2001-12-88 06:11:0013.6[facility]annHEMATOLOGY 2018-10-11 06:11:0033.2[facility] SyujylsXSQAIJJGYQ1392-05-19 06:11:00 Test Item Value Reference Range Interpretation Comments MCH (test code = MCH) 29.6 pg 27.0-31.0 [facility] JdyrlpwVDHKCXBOXY3418-15-30 06:11:0038.3[facility]annHEMATOLOGY 2018-10-11 06:11:004.30[facility] JsnkfkuGZVNJSEKWS7508-18-77 06:11:0089.1[facility] WmgwttaQPHPGAMOFG5696-34-78 06:11:0012.7[facility] YxbjiuaERGBZNCBXJ7632-70-11 06:11:002.9[facility] XlrurwiBLMERXTBWE4416-62-93 06:11:0028.7[facility] [place] TNRWTHMZLF0062-09-17 06:11:009.5[facility] YtyqisrYZUZEHMEOD0922-79-76 06:11:00 58.7[facility] CgvrxbmEJVDUYIFYU0130-09-17 06:11:002.6[facility]annHEMATOLOGY 2018-10-11 06:11:000.3[facility] MuyseqyEBQSUKDUVF7571-67-11 06:11:000.2[facility] PrvkoozXEKCSBWBOU6449-19-59 06:11:005.3[facility] UyezctyUFLZFGVZKG1816-26-45 06:11:000.9[facility]annCHEM XLUPH0432-77-11 06:11:0073[facility]annCHEM NNXUC4562-39-66 06:11:0074[facility]annCHEM UHAJS4317-87-31 06:11:000.93 [facility]annCHE[facility] SDQNM6654-59-90 06:11:45939Ftzjcnsd HermannCHEM PANEL 2018-10-11 06:11:0018[facility]annCHEM OFUYC7926-73-60 06:11:008.9[facility]annCHEM RCHIY2152-64-50 06:11:003.9[facility]annCHEM KBRPL8799-22-58 06:11:03639Bsgevlhr HermannCHEM GDJJJ4263-79-51 06:11:0026[facility]annCHEM ECENG6606-31-98 06:11:0011.9[facility]annCHEM EGXCU6885-41-79 06:24:002.0 [facility]annCHE[facility] XWWYR4246-26-78 06:24:0068[facility]annCHEM PANEL 2018-10-10 06:24:003.9[facility]annCHEM UBYHP6922-40-39 06:24:98922Ivwfilfu HermannCHEM NBUWD8062-93-72 06:24:63879Nhuuejpk HermannCHEM XQEJN5651-49-66 06:24:001.00[facility]annCHEM HCBTV0094-89-58 06:24:0090[facility]annCHEM MVYSC9556-46-03 06:24:0021[facility]annCHEM STSIM3749-83-37 06:24:0028 [facility]annCHE[facility] LNJZU3912-39-44 06:24:008.6[facility]annCHEM PANEL 2018-10-10 06:24:007.9[facility] HermannCHEM BFVXD1234-15-85 06:24:003.9[facility] TlekxmwAEMOIUHRFZ0755-10-61 06:24:000.1[facility] BlrgijnPNCSMFPBQG0505-75-23 06:24:000.2[facility] EyfhfuhTNOUQQUMGU8346-54-00 06:24:002.0[facility] [place] CQAFIQDCNA6973-22-52 06:24:002.1[facility] IxpwhrtOIVTYGIISR1297-97-99 06:24:000.8 [facility] JftcwwpJHRLOLASVQ0374-02-01 06:24:000.8[facility]annHEMATOLOGY 2018-10-10 06:24:005.4[facility] OcilcgoFOWAKTYJCI6655-67-14 06:24:0024.5[facility] OibfimtXCWHJXDUMY1051-16-42 06:24:0063.8[facility] IrirtypZBYHMXSSWX0007-38-82 06:24:008.9[facility] VfsjhxxETLQZRYLAS2533-23-37 06:24:65509Dpzvlrcg Carlos GWVRTHMJZN6320-08-47 06:24:008.2[facility] MiwcdgcUFNYVDPARG3858-96-54 06:24:00 12.3[facility] VwfpxjbFGLQEAYMJJ4569-23-38 06:24:004.13[facility]annHEMATOLOGY 2018-10-10 06:24:008.4[facility] WxkmfqyZNSLUWEUZM8070-96-25 06:24:0088.9[facility] GrjrovfRMVZGMRYNU4338-40-39 06:24:00 Test Item Value Reference Range Interpretation Comments MCH (test code = MCH) 29.9 pg 27.0-31.0 [facility] ZvxtojqDRDQUASPLY1921-47-89 06:24:0036.7[facility]annHEMATOLOGY 2018-10-10 06:24:0013.6[facility] ZzdnjxmSLZDAEBRXZ2925-91-70 06:24:0033.6[facility] HermannPARATHYROID DTGZKJQ6676-05-52 06:24:001.14[facility] HermannPARATHYROID ZQGBECS9900-61-42 06:24:001.15[facility] HermannCHEM QMZQJ2038-16-86 06:24:002.0 [facility]annCHEM DMVZS7542-67-99 06:24:0068[facility] HermannCHEM PANEL 2018-10-10 06:24:003.9[facility] HermannCHEM XQOCT6314-57-14 06:24:73168Xbrsmmsm HermannCHEM BPPGW7274-25-86 06:24:22647Egomqrfv HermannCHEM GSAYT0580-11-67 06:24:001.00[facility] HermannCHEM IDHTO3583-51-49 06:24:0090[facility] HermannCHEM IHMSX7752-28-47 06:24:0021[facility] HermannCHEM GAOZT7185-82-68 06:24:0028 [facility]annCHEM WHVSF9302-95-89 06:24:008.6[facility] HermannCHEM PANEL 2018-10-10 06:24:007.9[facility] HermannCHEM HMSQM6293-45-01 06:24:003.9[facility] IlhyoirQTZTYZNRUC4017-40-95 06:24:000.1[facility] LczwhzzLGCHZKKNFL9295-79-61 06:24:000.2[facility] FvfukgbYQWQLVIXDJ1546-50-16 06:24:002.0[facility] [place] PLWYETNPEZ5289-81-28 06:24:002.1[facility] ZkiqgizYPMOTAYKQR7908-85-90 06:24:000.8 [facility] EpvfqieCJFJBIYSLB7640-02-99 06:24:000.8[facility] HermannHEMATOLOGY 2018-10-10 06:24:005.4[facility] DatwvrxUPRBPFWJBH2862-45-84 06:24:0024.5[facility] ZgnviirRBALOWMDEK2475-75-92 06:24:0063.8[facility] WdujlmnNVKKZHFTDD9420-89-16 06:24:008.9[facility] PpnukulZMYJCVWFWX8158-91-76 06:24:11087Jpqvsqxs Carlos YFFSLGJTSK2173-20-15 06:24:008.2[facility] EmevknvPCEMDQNPVJ4181-78-18 06:24:00 12.3[facility] JutgofhIKUBWPBZIZ5170-27-12 06:24:004.13[facility] HermannHEMATOLOGY 2018-10-10 06:24:008.4[facility] VrwfrtzSFXKTEFOLR6710-91-39 06:24:0088.9[facility] FkzhoznUDPSQNTKSI5782-94-83 06:24:00 Test Item Value Reference Range Interpretation Comments MCH (test code = MCH) 29.9 pg 27.0-31.0 [facility] ImmckjtERYEZIAFZY1817-97-63 06:24:0036.7[facility] HermannHEMATOLOGY 2018-10-10 06:24:0013.6[facility] NykdusiODQJHZNJIP0614-18-32 06:24:0033.6[facility] HermannPARATHYROID UGOBPFS9200-78-16 06:24:001.14[facility] HermannPARATHYROID JMEZCEJ5864-26-19 06:24:001.15[facility] HermannCHEM XTTCM0854-80-84 07:49:003.2 [facility]annCHEM YUKZQ7829-99-13 07:49:001.9[facility] HermannCHEM PANEL 2018-10-09 07:49:0081[facility] HermannCHEM WLRIF1146-88-90 07:49:0010.9[facility] HermannCHEM DWOJX2885-86-42 07:49:008.5[facility] HermannCHEM HLYED2538-20-66 07:49:003.9[facility]annCHEM IXXQZ4846-06-92 07:49:73447Yjsbqqjm HermannCHEM HDYJI4485-29-94 07:49:95295Yikikvak HermannCHEM KEOHM7582-53-82 07:49:000.96 [facility]annCHE[facility] QZAEY0263-39-50 07:49:0017[facility] HermannCHEM PANEL 2018-10-09 07:49:36162Ymtbokfy HermannCHEM SHPCU9098-00-90 07:49:0024[facility] RzkgcnvWJKWJVWFIG9160-83-55 07:49:0086.1[facility] ZztajnuDCKHLPGKQF4187-06-41 07:49:000.4[facility] PgmfpijKDZHVOFROD7750-75-58 07:49:0012.7[facility] [place] NYFXQBMSIC1432-77-26 07:49:006.3[facility] MgihujzJWEEFMEYQW2700-11-74 07:49:007.2 [facility] InuixlzCDGHAYJERI9205-16-73 07:49:000.9[facility]annHEMATOLOGY 2018-10-09 07:49:000.1[facility] TppxmttFPZXZOVPYR5524-05-57 07:49:001.1[facility] NdquleuGHGCYSGMWC5613-87-93 07:49:008.3[facility] WryyyooTQMUQRRNES4742-42-37 07:49:0033.3[facility] DtncqjaSJWDBYEDPC6047-94-29 07:49:0013.5[facility] SCTDRKBKCS5952-77-41 07:49:51133Zaunbhjx KmwzhalWKNJVHKHME6964-85-66 07:49:00 12.8[facility] RzymmcoYEMCDQMZHE4214-26-65 07:49:0038.4[facility]annHEMATOLOGY 2018-10-09 07:49:0088.1[facility] BocyfgiDCPDIMRJFC3175-82-83 07:49:00 Test Item Value Reference Range Interpretation Comments MCH (test code = MCH) 29.4 pg 27.0-31.0 [facility] FibygouKYHDWCWFFD8196-16-88 07:49:0014.7[facility]annHEMATOLOGY 2018-10-09 07:49:004.36[facility] HermannPARATHYROID YUFQQIT8657-18-15 07:49:00 1.15[facility] HermannPARATHYROID TRJXCFE3793-24-25 07:49:001.16[facility] CHEM PNIUR5992-24-55 07:49:003.2[facility] HermannCHEM PWNYK1306-55-64 07:49:001.9 [facility]annCHEM LEQCA6193-16-72 07:49:0081[facility]annCHEM PANEL 2018-10-09 07:49:0010.9[facility] HermannCHEM LWDTQ7936-73-39 07:49:008.5[facility]annCHEM BWHMI3827-74-77 07:49:003.9[facility] HermannCHEM UWTKY4860-03-74 07:49:58900Sduorkfg HermannCHEM OYUOU7953-06-47 07:49:75751Hsdxsfcn HermannCHEM GBTKP7206-61-22 07:49:000.96[facility]annCHEM UJUKZ8848-23-42 07:49:0017 [facility]annCHEM JUKIG2838-21-69 07:49:60648Mlxrihbm HermannCHEM PANEL 2018-10-09 07:49:0024[facility] MjnqxssXYECTJDVPX3176-58-83 07:49:0086.1[facility] XjlqpgpFCNOHGSPJY9876-18-50 07:49:000.4[facility] XaaxsjlRDCAALMYPT3903-74-69 07:49:0012.7[facility] LqlkmrjMSJNSGMXTJ4255-07-67 07:49:006.3[facility] [place] CZFKHESBMS4187-49-25 07:49:007.2[facility] ZwdswmbBHEJEHHXFA7412-23-37 07:49:000.9 [facility] CvdgdmlWRGZLDGXCC5370-29-28 07:49:000.1[facility]annHEMATOLOGY 2018-10-09 07:49:001.1[facility] VykzlmoZTBLXMVZJL2900-75-91 07:49:008.3[facility] AdngojkXUGJBZYOCQ8764-09-31 07:49:0033.3[facility] RvnpyxnNQTVAIGFXE4584-59-03 07:49:0013.5[facility] DosdiqfUNSUKOYKIJ1118-40-74 07:49:98075Eisnuolr [place] FLXEYVMWQI2075-03-84 07:49:0012.8[facility] DkonrueKRVSJCMRBG1121-08-85 07:49:00 38.4[facility] ImtmyueAINWXLJJBQ6340-35-88 07:49:0088.1[facility]annHEMATOLOGY 2018-10-09 07:49:00 Test Item Value Reference Range Interpretation Comments MCH (test code = MCH) 29.4 pg 27.0-31.0 [facility] PhrajsrYQMYJJVWFY4491-06-75 07:49:0014.7[facility]annHEMATOLOGY 2018-10-09 07:49:004.36[facility] HermannPARATHYROID FMTLAPC7321-00-25 07:49:00 1.15[facility] HermannPARATHYROID GVTWKMQ5520-98-39 07:49:001.16[facility] [place] CARDIAC MOCHDMO3465-44-02 18:27:00<0.02[facility] HermannCARDIAC ENZYMES 2018-10-08 18:27:00<0.02[facility]annURINE AND BYIBA0541-59-51 15:59:00 Negative *NA*(10/08/18 9:59 AM)[facility] WJXBH7260-42-71 15:59:00 Negative (10/08/18 9:59 AM)[facility] CQKCP1905-07-04 15:59:00 Negative *NA*(10/08/18 9:59 AM)[facility] QHKHP6645-91-75 15:59:00 Test Item Value Reference Range Interpretation Comments UA Spec Grav (test code = UA Spec 1.010 1 Grav) [facility] MAYQI1157-53-83 15:59:00 Test Item Value Reference Range Interpretation Comments UA pH (test code = UA pH) 6.0 1 5.0-8.0 [facility] BJUDD2175-58-52 15:59:00Yellow *NA*(10/08/18 9:59 AM) [facility] QOYAR8802-10-95 15:59:00Clear (10/08/18 9:59 AM)[facility] VJFZC1753-55-90 15:59:00Negative (10/08/18 9:59 AM)[facility] TZVFH7598-04-21 15:59:00Negative (10/08/18 9:59 AM)[facility] XLIEH8168-44-66 15:59:00Small *ABN*(10/08/18 9:59 AM)[facility] JJULX6584-57-46 15:59:00Negative (10/08/18 9:59 AM)[facility] XRZWM1984-70-67 15:59:000.2[facility] STOOL 2018-10-08 15:59:00Negative *NA*(10/08/18 9:59 AM)[facility] STOOL 2018-10-08 15:59:00Negative (10/08/18 9:59 AM)[facility] STOOL 2018-10-08 15:59:00Negative *NA*(10/08/18 9:59 AM)[facility] STOOL 2018-10-08 15:59:00 Test Item Value Reference Range Interpretation Comments UA Spec Grav (test code = UA Spec 1.010 1 Grav) [facility] PMBJN6623-86-35 15:59:00 Test Item Value Reference Range Interpretation Comments UA pH (test code = UA pH) 6.0 1 5.0-8.0 [facility] LNZXF2254-34-05 15:59:00Yellow *NA*(10/08/18 9:59 AM) [facility] VWPCE4309-32-44 15:59:00Clear (10/08/18 9:59 AM)[facility] BOKSB2689-20-58 15:59:00Negative (10/08/18 9:59 AM)[facility] DTLKR1126-28-16 15:59:00Negative (10/08/18 9:59 AM)[facility] AND UAVGA5116-45-90 15:59:00Small *ABN*(10/08/18 9:59 AM)[facility] AND XFAUX8195-99-16 15:59:00Negative (10/08/18 9:59 AM)[facility] AND YKSFL6772-64-50 15:59:000.2[facility] SlouwxoZJXYWNSPIQ7295-70-96 15:21:00 Test Item Value Reference Range Interpretation Comments PTT (test code = PTT) 36.5 s 22.9-35.8 [facility]GezgzmhCDCVATWTFC6746-30-[facility] 15:21:00 Test Item Value Reference Range Interpretation Comments PT (test code = PT) 13.3 s 12.0-14.7 [facility] CenterYalgjseHDABIUFMEA4392-65-39 15:21:00 Test Item Value Reference Range Interpretation Comments INR (test code = INR) 1.03 1 0.85-1.17 [facility] CenterOlpcqpiARISGNVDJC7733-24-51 15:21:00 Test Item Value Reference Range Interpretation Comments Split Point Rapid (test code = Split 0.6 min Point Rapid) [facility] CenterZeuhvvmVLQAISHQHZ6830-53-70 15:21:00 Test Item Value Reference Range Interpretation Comments R-time Rapid (test code = R-time 0.7 min 0.4-0.7 Rapid) [facility] CenterZfctswoHMYYTOPWOV5003-80-09 15:21:00 Test Item Value Reference Range Interpretation Comments ACT (TEG) Rapid (test code = ACT (TEG) 113 s 86-118 Rapid) [facility] CenterSvjeofbTNKGJEHKVH0751-56-26 15:21:0015.0[facility] 2018-10-08 15:21:00 Test Item Value Reference Range Interpretation Comments K-time Rapid (test code = K-time 0.8 min 0.6-2.3 Rapid) [facility] CenterWduqrkrGCWZEWEPTK1240-45-13 15:21:[facility].3[facility] 15:21:00 Test Item Value Reference Range Interpretation Comments Angle Rapid (test code = Angle 79 degrees 64-80 Rapid) [facility] CenterEqanedeLQULLZJVCQ5540-07-68 15:21:00 Test Item Value Reference Range Interpretation Comments Max Amplitude Rapid (test code = Max 75 mm 52-71 Amplitude Rapid) [facility] CenterBzdldbpWXJWZVYSYF2649-44-20 15:21:00 Test Item Value Reference Range Interpretation Comments PTT (test code = PTT) 36.5 s 22.9-35.8 [facility] CenterPtmezwsBFAPXVVGFG7806-13-84 15:21:00 Test Item Value Reference Range Interpretation Comments PT (test code = PT) 13.3 s 12.0-14.7 [facility] CenterAffupueAHIKLOJETA4816-86-03 15:21:00 Test Item Value Reference Range Interpretation Comments INR (test code = INR) 1.03 1 0.85-1.17 [facility] CenterAdwjlniAXUWAOOJCF9432-46-26 15:21:00 Test Item Value Reference Range Interpretation Comments Split Point Rapid (test code = Split 0.6 min Point Rapid) [facility] CenterYfuzrgePYWRJDERZK5290-93-35 15:21:00 Test Item Value Reference Range Interpretation Comments R-time Rapid (test code = R-time 0.7 min 0.4-0.7 Rapid) [facility] CenterAwkaehpJTZFVPQJCV3644-69-26 15:21:00 Test Item Value Reference Range Interpretation Comments ACT (TEG) Rapid (test code = ACT (TEG) 113 s 86-118 Rapid) [facility] CenterQrnujdaCTUXQIWGNQ9519-22-24 15:21:0015.0[facility] 2018-[facility] 15:21:00 Test Item Value Reference Range Interpretation Comments K-time Rapid (test code = K-time 0.8 min 0.6-2.3 Rapid) [facility] CenterHdssffdZYKPELMRHH7893-33-39 15:21:000.3[facility] 2018-10-08 15:21:00 Test Item Value Reference Range Interpretation Comments Angle Rapid (test code = Angle 79 degrees 64-80 Rapid) [facility] CenterYbwakieXDXWMSBTUS1333-97-97 15:21:00 Test Item Value Reference Range Interpretation Comments Max Amplitude Rapid (test code = Max 75 mm 52-71 Amplitude Rapid) [facility] OWUOVCF9036-66-34 15:20:00Negative (10/08/18 9:20 AM) [facility] KUUXJNH5310-61-58 15:20:00Negative (10/08/18 9:20 AM) [facility] JCOCYLP0122-90-40 15:18:00<0.02[facility] HermannCHEM MIUYB0518-44-65 15:18:003.9[facility] HermannCHEM FCSKE5505-61-00 15:18:001.9 [facility]annCHE[facility] PVXBM8178-37-39 15:18:000.8[facility]annHEMATOLOGY 2018-10-08 15:18:000.1[facility] EfkoruoIRHNPULXBQ3959-30-07 15:18:000.1[facility] EvsbolnHXKGCLJHEV7403-80-52 15:18:001.8[facility] HermannCARDIAC WAQJXJA9519-76-12 15:18:00<0.02[facility] HermannCHEM HVBGA0267-01-60 15:18:003.9[facility] HermannCHEM HLSHP0910-07-37 15:18:001.9[facility] HermannCHEM FFEPO0550-58-95 15:18:000.8[facility] EnmzoyqFJOAQSJXYY1666-35-77 15:18:000.1[facility] ZNUDXMHFVF5006-07-01 15:18:000.1[facility] JmdfgcsGVZBCNXYKJ2006-54-70 15:18:001.8 [facility]
[2022-03-26] MEDS ORDERED: HYDROCODONE/APAP 10/325 TAB ONE (12:55)
--- NOTE | 2022-03-26 13:33 | RAD REPORT ---
EXAM DESCRIPTION: USExtremity Venous Uni Ltd03/26/2022 1:19 pm CLINICAL HISTORY: left leg pain COMPARISON: None FINDINGS: Left common femoral, superficial femoral, popliteal and posterior tibial veins are compre ssible and demonstrate augmentation. Doppler demonstrates good flow. Grayscale, color and spectral analysis performed on all vessels IMPRESSION: No evidence of deep venous thrombosis involving the left lower extremity.
--- NOTE | 2022-03-26 13:35 | RAD REPORT ---
EXAM DESCRIPTION: RAD - Pelvis - 03/26/2022 1:20 pm CLINICAL HISTORY: Pelvic pain FINDINGS: No fracture or dislocation is seen. No significant bone or joint abnormality noted. Brad sacralization L5
--- NOTE | 2022-03-26 13:36 | RAD REPORT ---
EXAM DESCRIPTION: RAD - Hip Left 2 View - 03/26/2022 1:20 pm CLINICAL HISTORY: Left hip pain FINDINGS: No fracture or dislocation is seen. No significant bone joint abnormality noted
--- NOTE | 2022-03-26 13:38 | RAD REPORT ---
EXAM DESCRIPTION: RAD - Foot Left 3 View - 03/26/2022 1:20 pm CLINICAL HISTORY: Left Foot pain FINDINGS: No fracture or dislocation is seen. No significant bone or joint abnormality noted
[2022-03-26] MEDS ORDERED: NA CHLORIDE 0.9% 1,000 ML ONE (14:36)
[2022-03-26] MEDS ORDERED: KETOROLAC 30 MG/ML INJ ONE (14:36)
[2022-03-26 14:57] LABS: Absolute Lymphocytes (CBC) 1.8 K/uL (0.7-4.9); Hematocrit 38.6 % (36.0-45.0); Lymphocytes % 21.6 % (15.3-44.8); MCV 85.1 fL (80-100); MPV 7.5 fL (7.6-11.3); RBC Red Blood Cell Count 4.54 M/uL (3.86-4.86)
[2022-03-26 15:17] LABS: C-Reactive Protein 7.26 mg/L (<3.00); Potassium 3.6 mmol/L (3.5-5.1)
[2022-03-26 16:38] LABS: Urine Blood 3+ (Negative); Urine Glucose Negative (Negative); Urine Protein Negative (Negative); Urine Specific Gravity 1.025 (1.005-1.030)
[2022-03-26 17:00] LABS: Urine Bacteria 20-50 /HPF (<20); Urine RBC >50 /HPF (None Seen)
--- NOTE | 2022-03-26 17:27 | ER ---
Nurse's Notes [facility] Name: Joanna Lim Age: 52 yrs Sex: Female : 1970 Arrival Date: 03/26/2022 Time: 12:19 Bed 12 Private MD: Parminder Velez Diagnosis: Pain in left toe(s);Sciatica, left side;UTI/ Urinary tract infection, site not specified Presentation: 03/26 12:29 Chief complaint: Patient states: my left toenail came off and it hurts and also my left ap3 hip started hurting really bad and I think there is something wrong with my leg. Coronavirus screen: At this time, the client does not indicate any symptoms associated with coronavirus-19. Ebola Screen: No symptoms or risks identified at this time. Initial Sepsis Screen: Does the patient meet any 2 criteria? No. Patient's initial sepsis screen is negative. Does the patient have a suspected source of infection? No. Patient's initial sepsis screen is negative. Risk Assessment: Do you want to hurt yourself or someone else? Patient reports no desire to harm self or others. Onset of symptoms was March 26, 2022. 12:29 Method Of Arrival: Ambulatory ap3 12:29 Acuity: JAYSHREE 4 ap3 Triage Assessment: 12:30 General: Appears in no apparent distress. uncomfortable, Behavior is calm, cooperative, ap3 appropriate for age. Pain: Complains of pain in left iliac crest and left hip Pain radiates to left femoral area. EENT: No deficits noted. No signs and/or symptoms were reported regarding the EENT system. Neuro: No deficits noted. Cardiovascular: No deficits noted. Respiratory: No deficits noted. GI: No deficits noted. No signs and/or symptoms were reported involving the gastrointestinal system. : No deficits noted. No signs and/or symptoms were reported regarding the genitourinary system. Derm: No deficits noted. No signs and/or symptoms reported regarding the dermatologic system. Musculoskeletal: Reports pain in left hip. BUILDING PRINCIPAL: 12:28 LMP N/A - Post-menopause ap3 Historical: - Allergies: 12:30 PENICILLINS; ap3 - Home Meds: 12:30 meloxicam Oral [Active]; tizanidine Oral [Active]; multiple muscle relaxers [Active]; ap3 - PMHx: 12:30 Back pain; ap3 - PSHx: 16:22 Lithotripsy; renal stent; Total abdominal hysterectomy; kb3 - Immunization history:: Adult Immunizations up to date. - Social history:: Patient/guardian denies using tobacco products, Smoking status: Patient denies any tobacco usage or history of. Screenin:32 Abuse screen: Denies threats or abuse. Nutritional screening: No deficits noted. ap3 Tuberculosis screening: No symptoms or risk factors identified. Fall Risk No fall in past 12 months (0 pts). Secondary diagnosis (15 points) impaired mobility, No IV (0 pts). Ambulatory Aid- None/Bed Rest/Nurse Assist (0 pts). Gait- Weak (10 pts.). Mental Status- Oriented to own ability (0 pts). Total Vicente Fall Scale indicates Low Risk Score (25-44 pts). Fall prevention measures have been instituted. Side Rails Up X 2 Placed close to Nursing Station Frequent Obs/Assesments occuring As available Patient and Family Educated on Fall Prevention Program and strategies. Assessment: 15:10 Reassessment: No changes from previously documented assessment. Patient and/or family kb3 updated on plan of care and expected duration. Pain level reassessed. 15:10 General: Received care of pt from day shift RN. Pt is AAO x4, states no needs at this 3 time. Updated regarding POC including awaiting all test results for disposition. Educated pt regarding need for urine sample to complete testing. Pt states understanding. Call light within reach. 15:50 General: Pt ambulatory to restroom without distress. Upon return, pt reports that she [facility] has no urge to void at this time and would like to ask PA if she can be discharged without urinae specimen. OLAF Yan notified of pt request.. 16:39 General: Pt reports that she was able to collect a urine specimen. PA notified. 3 Vital Signs: 12:28 BP 145 / 75; Pulse 90; Resp 16; Temp 97.8(TE); Pulse Ox 100% on R/A; Weight 97.52 kg ap3 (R); Height 5 ft. 8 in. (172.72 cm); Pain 9/10; 15:10 BP 154 / 93; Pulse 72; Resp 18; Temp 98.2; Pulse Ox 100% ; Pain 5/10; kb3 17:49 BP 148 / 88; Pulse 78; Resp 20; Pulse Ox 99% ; Pain 5/10; kb3 12:28 Body Mass Index 32.69 (97.52 kg, 172.72 cm) ap3 ED Course: 12:19 Patient arrived in ED. am2 12:19 Parminder Velez DO is Private Physician. am2 12:28 Arm band placed on right wrist. ap3 12:30 Steven Yan PA is PHCP. cp 12:30 Steven Meehan MD is Attending Physician. cp 12:30 Triage completed. ap3 12:32 Patient has correct armband on for positive identification. Bed in low position. Call ap3 light in reach. Side rails up X 1. Pulse ox on. NIBP on. Door closed. Noise minimized. Warm blanket given. 12:44 Bessie Smith, RN is Primary Nurse. ap3 13:21 XRAY Foot LEFT 3 View In Process Unspecified. EDMS 13:21 US Extremity Venous Unilateral Ltd In Process Unspecified. EDMS 13:22 XRAY Pelvis In Process Unspecified. EDMS 13:22 XRAY Hip LEFT 2 view In Process Unspecified. EDMS 14:44 Inserted saline lock: 20 gauge in right antecubital area, using aseptic technique. kc6 Blood collected. 14:44 ESR Sent. kc6 14:44 CK Sent. kc6 14:45 CRP Sent. kc6 14:45 BMP Sent. kc6 14:45 CBC with Diff Sent. kc6 15:10 No provider procedures requiring assistance completed. kb3 17:50 IV discontinued, intact, bleeding controlled, No redness/swelling at site. kb3 Administered Medications: 12:47 Drug: HYDROcodone-acetaminophen 10 mg-325 mg 1 tabs Route: PO; ap3 14:22 Follow up: Response: No adverse reaction; Pain is decreased ap3 14:52 Drug: NS 0.9% 1000 ml Route: IV; Rate: 500 ml/hr; Site: right antecubital; ap3 16:53 Follow up: IV Status: Completed infusion; IV Intake: 500ml kb3 16:53 Follow up: Response: No adverse reaction kb3 14:54 Drug: Ketorolac 15 mg Route: IVP; Site: right antecubital; ap3 16:53 Follow up: Response: No adverse reaction kb3 17:48 Drug: Bactrim (trimethoprim-sulfamethoxazole) (160 mg-800 mg (DS) 2 tabs Route: PO; kb3 17:48 Follow up: Response: No adverse reaction; Medication administered at discharge. kb3 Medication: 15:10 VIS not applicable for this client. kb3 Intake: 16:53 IV: 500ml; Total: 500ml. kb3 Outcome: 17:26 Discharge ordered by . moises 17:49 Discharged to home ambulatory. kb3 17:49 Condition: stable 17:49 Discharge instructions given to patient, Instructed on discharge instructions, follow up and referral plans. medication usage, wound care, Demonstrated understanding of instructions, follow-up care, medications, wound care, Prescriptions given X 3. 17:50 Patient left the ED. kb3 Signatures: Dispatcher [employer] EDMS Steven Yan PA PA cp Moreno, Amanda am2 Bessie Smith RN RN ap3 Portia Andrade kc6 Payal Boucher RN RN kb3
--- NOTE | 2022-03-26 17:27 | EDPHYS ---
Physician Documentation [facility] Name: Joanna Lim Age: 52 yrs Sex: Female : 1970 Arrival Date: 03/26/2022 Time: 12:19 Bed 12 Private MD: Agustin [facility] ED Physician Steven Meehan HPI: 03/26 13:00 This 52 yrs old Black Female presents to ER via Ambulatory with complaints of Hip Pain, cp Toe Injury. 13:00 The patient presents with pain, that is acute. The complaints affect the left gluteal cp fold and left hamstring and left great toe. 13:00 Context: left great toe pain started after having recent manicure and left posterior cp upper leg since yesterday. 13:00 Associated signs and symptoms: Pertinent positives: chronic back pain, Pertinent cp negatives fever, numbness, rash, tingling, warmth, weakness. 13:00 Treatment prior to arrival includes: over the counter medications. Severity of cp symptoms: in the emergency department the symptoms are unchanged, despite home interventions. 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 - Social history:: Patient/guardian denies using tobacco products, Smoking status: Patient denies any tobacco usage or history of. ROS: 13:05 Constitutional: Negative for body aches, chills, fever, poor PO intake. cp 13:05 Eyes: Negative for injury, pain, redness, and discharge. cp 13:05 ENT: Negative for drainage from ear(s), ear pain, sore throat, difficulty swallowing, difficulty handling secretions. 13:05 Cardiovascular: Negative for chest pain, edema, palpitations. 13:05 Respiratory: Negative for cough, shortness of breath, wheezing. 13:05 Abdomen/GI: Negative for abdominal pain, nausea, vomiting, and diarrhea. 13:05 Back: Positive for chronic pain. 13:05 MS/extremity: Positive for pain, of the posterior aspect of left upper leg and left great toe, Negative for injury or acute deformity, decreased range of motion. 13:05 Neuro: Negative for altered mental status, headache, weakness. 13:05 All other systems are negative. Exam: 13:10 Constitutional: The patient appears in no acute distress, alert, awake, non-toxic, well cp developed, well nourished, uncomfortable. 13:10 Head/Face: Normocephalic, atraumatic. cp 13:10 Eyes: Periorbital structures: appear normal, Conjunctiva: normal, no exudate, no injection, Sclera: no appreciated abnormality, Lids and lashes: appear normal, bilaterally. 13:10 ENT: External ear(s): are unremarkable, Nose: is normal, Mouth: Lips: moist, Oral mucosa: moist, Posterior pharynx: Airway: no evidence of obstruction, patent. 13:10 Chest/axilla: Inspection: normal. 13:10 Cardiovascular: Rate: normal, Rhythm: regular. 13:10 Respiratory: the patient does not display signs of respiratory distress, Respirations: normal, no use of accessory muscles, no retractions, labored breathing, is not present, Breath sounds: are clear throughout, no decreased breath sounds, no stridor, no wheezing. 13:10 Abdomen/GI: Inspection: abdomen appears normal, Palpation: abdomen is soft and non-tender, in all quadrants. 13:10 Back: pain, that is moderate, of the low back area, ROM is normal. 13:10 Musculoskeletal/extremity: Extremities: grossly normal except: noted in the posterior aspect left upper leg: pain, tenderness, noted in the left great toe: pain, tenderness, nail deformity. 13:10 Skin: cellulitis, is not appreciated, no rash present. 13:10 Neuro: Orientation: to person, place \T\ time. Mentation: is normal. Vital Signs: 12:28 BP 145 / 75; Pulse 90; Resp 16; Temp 97.8(TE); Pulse Ox 100% on R/A; Weight 97.52 kg ap3 (R); Height 5 ft. 8 in. (172.72 cm); Pain 9/10; 15:10 BP 154 / 93; Pulse 72; Resp 18; Temp 98.2; Pulse Ox 100% ; Pain 5/10; kb3 17:49 BP 148 / 88; Pulse 78; Resp 20; Pulse Ox 99% ; Pain 5/10; kb3 12:28 Body Mass Index 32.69 (97.52 kg, 172.72 cm) ap3 MDM: 12:30 Patient medically screened. [facility] 17:25 Data reviewed: vital signs, nurses notes, radiologic studies, plain films, and as a cp result, I will discharge patient. 17:25 Counseling: I had a detailed discussion with the patient and/or guardian regarding: the cp historical points, exam findings, and any diagnostic results supporting the discharge/admit diagnosis, lab results, radiology results, the need for outpatient follow up, a family practitioner, to return to the emergency department if symptoms worsen or persist or if there are any questions or concerns that arise at home. 03/26 14:15 Order name: CBC with Diff; Complete Time: 17:01 cp 03/26 17:01 Interpretation: Normal except: MPV 7.5. cp 03/26 14:15 Order name: BMP; Complete Time: 17: cp 03/26 17:01 Interpretation: Normal except: CL 111; ANION GAP 4.6; GFR 74. cp 03/26 14:15 Order name: CRP; Complete Time: 17:01 cp 03/26 17:01 Interpretation: Abnormal: C-REACTIVE PROT 7.26. cp 03/26 14:15 Order name: Urine Microscopic Only; Complete Time: 17:02 cp 03/26 17:03 Interpretation: Normal except: URBC >50; UBACT 20-50. cp 03/26 14:15 Order name: ESR; Complete Time: 17:01 cp 03/26 14:15 Order name: CK; Complete Time: 17:01 cp 03/26 12:42 Order name: XRAY Foot LEFT 3 View; Complete Time: 17: cp 03/26 17:01 Interpretation: Reviewed report. cp 03/26 12:42 Order name: US Extremity Venous Unilateral Ltd; Complete Time: 17:01 cp 03/26 12:42 Order name: XRAY Pelvis; Complete Time: 17:01 cp 03/26 12:42 Order name: XRAY Hip LEFT 2 view; Complete Time: 17: cp 03/26 16:38 Order name: Urine Dipstick-Ancillary; Complete Time: 17:01 EDMS 03/26 17:04 Order name: Urine Culture [facility] 03/26 14:15 Order name: Urine Dipstick-Ancillary (obtain specimen); Complete Time: 16:39 cp 03/26 14:15 Order name: IV; Complete Time: 14:44 cp Administered Medications: 12:47 Drug: HYDROcodone-acetaminophen 10 mg-325 mg 1 tabs Route: PO; ap3 14:22 Follow up: Response: No adverse reaction; Pain is decreased ap3 14:52 Drug: NS 0.9% 1000 ml Route: IV; Rate: 500 ml/hr; Site: right antecubital; ap3 16:53 Follow up: IV Status: Completed infusion; IV Intake: 500ml kb3 16:53 Follow up: Response: No adverse reaction kb3 14:54 Drug: Ketorolac 15 mg Route: IVP; Site: right antecubital; ap3 16:53 Follow up: Response: No adverse reaction kb3 17:48 Drug: Bactrim (trimethoprim-sulfamethoxazole) (160 mg-800 mg (DS) 2 tabs Route: PO; kb3 17:48 Follow up: Response: No adverse reaction; Medication administered at discharge. kb3 Disposition Summary: 03/26/22 17:26 Discharge Ordered Location: Home cp Problem: new cp Symptoms: have improved cp Condition: Stable cp Diagnosis - Pain in left toe(s) cp - Sciatica, left side cp - UTI/ Urinary tract infection, site not specified cp Followup: cp - With: Private Physician - When: 2 - 3 days - Reason: Recheck today's complaints Discharge Instructions: - Discharge Summary Sheet cp - Sciatica cp - Urinary Tract Infection, Adult cp - Back Exercises cp Forms: - Medication Reconciliation Form cp - Thank You Letter cp - Antibiotic Education cp - Prescription Opioid Use cp Prescriptions: - Diclofenac Sodium 75 mg Oral Tablet Sustained Release - take 1 tablet by ORAL route 2 times per day; 30 tablet; Refills: 0, Product cp Selection Permitted - Tramadol 50 mg Oral Tablet - take 1 tablet by ORAL route every 8 hours as needed; 12 tablet; Refills: 0, cp Product Selection Permitted - Bactrim DS 800-160 mg Oral Tablet - take 1 tablet by ORAL route every 12 hours for 7 days; 14 tablet; Refills: 0, cp Product Selection Permitted Signatures: Dispatcher [employer] EDMS Zoran, MD MD iva Harris Corey, PA PA cp Prokisch, Amanda, RN RN ap3 Payal Boucher, RN RN kb3
[2022-03-26] MEDS ORDERED: SMZ./TMP. 800/160 MG TABLET ONE (17:50)
[2022-03-26 20:05] VITALS: TEMP 98.2
[2022-03-26 20:07] VITALS: BP 148/88; O2SAT 99
== END 2022-03-26 17:50 | disposition home or self-care (01) ==
LOC: ER 12:18
DX: M79.675 Pain in left toe(s) (principal); M54.32 Sciatica, left side; N39.0 Urinary tract infection, site not specified; Z88.0 Allergy status to penicillin
CPT/HCPCS: 96361; 87088; 85025; 87086; 80048; 36415; 82550; 85652; 86140; 72170; 73502; 73630; 93971; 96374; 99284; J7030; 81003; 81015

== ENCOUNTER 2022-04-14 12:23 | Emergency (ER) | payer OTHER ==
--- OUTSIDE RECORDS SUMMARY | 2022-04-14 12:34 | XMS REPORT | Continuity of Care Document ---
:1970 Author Organization [facility] t Address [address] [place] [address] Support Name Relationship Address Phone Yolanda Ruiz [address] [place] [address] L Dane Ruiz Relative [address] [place] [address] N Jonah Dubose Child [address] [place] [address] Dubose, Joanna Unavailable [address] [phone] [place] [address] Carina Joanna Unavailable [address] [phone] [place] [address] JONAH DUBOSE N [address] [place] [address] DANE RUIZ Relative [address] [place] [address] Care Team Providers Name Role Phone GIANNA VELEZ Primary Care Physician Unavailable Gianna Velez Attending Clinician Unavailable KARMEN VELEZ Attending Clinician Unavailable PINA WILLIAMSON Attending Clinician Unavailable YVETTE ANN Attending Clinician Unavailable YVETTE ANN Attending Clinician Unavailable ALEXYS AGUILAR Attending Clinician Unavailable LIDIA YANCEY Attending Clinician Unavailable Lidia Yancey MD Attending Clinician PATSY FROST Attending Clinician Unavailable Doctor Unassigned, Gough Attending Clinician Unavailable Nilda Serrano MA Attending Clinician Unavailable Jaycee MAXWELL, MA[employer] SECURITY, CNP-BC, Felisa Denton Attending Clinician VISIT, [facility] Attending Clinician Unavailable Edis Ken Attending Clinician Bryan Cazares II Attending Clinician LIDIA YANCEY Admitting Clinician Unavailable Dmitry Duvall Jr Admitting Clinician Payers Payer Name Policy Type Policy Number Effective Date Expiration Date Emilia naranjo [place] [employer] [id number] 2019 HEALTH PLAN CHIP 00:00:00 [place] [facility] [id number] 2016 HEALTH 00:00:00 Problems Condition Condition Condition Status Onset Resolution Last Treating Co mments Source Name Details Category Date Date Treatment Clinician Date 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 Added automatic ally from request for surgery [id number] Obesity Obesity Disease Active Univers (BMI (BMI 10-12 ity of 30-39.9) 30-39.9) 00:00: [place] [address] Medical Branch CHRONIC CHRONIC Diagnosis Active 2019-02-01 Memoria SDH SDH Active 10-08 10:05:00 l 10/08/2018 00:00: Narinder denton [address] NON NON Diagnosis Active 2018-10-08 Mem oria SUBACUTE SUBACUTE 10-08 10:22:00 l TRAUMATIC TRAUMATIC 00:00: Alon keenan SUBDURAL SUBDURAL 00 HEMATOMA HEMATOMA Active 10/08/2018 [facility] Status Status Disease Active Univers post post 09-30 ity of vaginal vaginal 00:00: [place] hysterecto hysterecto 00 Me dical my my Branch Post-opera Post-opera Disease Active U nivers tive state tive state - it y of 00:00: [place] [facility] Uterine Uterine Disease Active Univers polyp polyp 1-05 ity of 00:00: [place] [facility] Goiter Goiter Disease Active 2014-08 Univers 0-07 ity of 00:00: [place] [address] Medical Branch Simple Simple Problem Active 2019-04-08 [place] anny obesity obesity 00:24:36 l (disorder) (disorder) Hai chau Active Problem 04/08/2019 [facility], OPID [place], OPID [place] NONTRAUMAT NONTRAUMA Diagnosis Active 2019-02-01 Memoria IC CHRONIC TIC 10:05:00 l SUBDURAL CHRONIC [place] HEMORRHAGE SUBDURAL HEMORRHAGE Active [facility] Allergies, Adverse Reactions, Alerts Allergy Allergy Status Severity Reaction(s) Onset Inactive Treating Comm ents Source Name Type Date Date Clinician Penicill Propensi Active Other - See 2014-08 Childhoo d Univers ins ty to comments 0-07 allergy ity of adverse 00:00: [place] reaction 00 Medical s Branch PENICILL Drug Active Other-Cmnt 2014-08 Univ ers INS Class 0-07 ity of 00:00: [place] [address] Medical Branch Penicill Adverse Active hives Common amine Reaction [facility] penicill penicill Active Memori a in in l [place] Social History Social Habit Start Date Stop Date Quantity Comments Source History SDOH University o f Alcohol Frequency [facility] edical Branch History SDOH University o f Alcohol Std [place] Medical Drinks Branch History SDWY University o f Alcohol Binge [place] Medic al Branch Exposure to 2022-02-28 2022-03-10 Not sure [facility] SARS-CoV-2 00:00:00 18:20:00 [facility] (event) Branch Alcohol intake 2022-01-25 2022-01-25 0 /d University of 00:00:00 00:00:00 [facility] Alcohol Comment 2021-07-24 2021-07-24 occasional Universit y of 00:00:00 00:00:00 [facility] Tobacco use and 2019-02-01 2019-02-01 Smokeless tobacco Un iversity of exposure 00:00:00 00:00:00 non-user [facility] Sex Assigned At [birth year] [facility] 00:00:00 00:00:00 Smoking Status Start Date Stop Date Source Social History [facility] Medications Ordered Filled Start Stop Current Ordering Indication Dosage Frequency Signature Comments Components Source Medication Medication Date Date Medication? Clinician (SIG) Name Name NAPROXEN Yes 1{tbl} Take 1 Unive rs ORAL 6-20 tablet by ity of 14:45: mouth. [address] tiZANidine Yes 4mg Take 4 mg Un [place] 4 mg 6-20 by mouth 3 ity of capsule 14:45: (three) [place] 04 times Medical daily. Branch NAPROXEN 2022-0 Yes 1{tbl} Take 1 Unive rs ORAL 6-20 tablet by ity of 14:45: mouth. [address] Branch tiZANidine 2022-0 Yes 4mg Take 4 mg Un [place] 4 mg 6-20 by mouth 3 ity of capsule 14:45: (three) [place] 04 times Medical daily. Branch NAPROXEN 2022-0 Yes 1{tbl} Take 1 Unive rs ORAL 6-20 tablet by ity of 14:45: mouth. [address] Branch tiZANidine 2-0 Yes 4mg Take 4 mg Un [place] 4 mg 6-20 by mouth 3 ity of capsule 14:45: (three) [place] 04 times Medical daily. Branch NAPROXEN 2-0 Yes 1{tbl} Take 1 Unive rs ORAL 6-20 tablet by ity of 14:45: mouth. [address] tiZANidine 2-0 Yes 4mg Take 4 mg Un [place] 4 mg 6-20 by mouth 3 ity of capsule 14:45: (three) [place] 04 times Medical daily. Branch DULoxetine 2-0 Yes 20mg Take 20 mg U nivers 20 mg 3-23 by mouth ity of capsule 19:13: daily. [address] DULoxetine 2-0 Yes 20mg Take 20 mg U nivers 20 mg 3-23 by mouth ity of capsule 19:13: daily. [address] DULoxetine 2022-0 Yes 20mg Take 20 mg U nivers 20 mg 3-23 by mouth ity of capsule 19:13: daily. [address] DULoxetine 2022-0 Yes 20mg Take 20 mg U nivers 20 mg 3-23 by mouth ity of capsule 19:13: daily. [address] Branch TAMSULOSIN 2-0 Yes [id number] TAKE 1 U nivers 0.4 mg 24 3-23 CAPSULE BY ity of hr capsule 00:00: MOUTH [place] 00 EVERY DAY Medical Branch TAMSULOSIN 2022-0 Yes [id number] TAKE 1 U nivers 0.4 mg 24 3-23 CAPSULE BY ity of hr capsule 00:00: MOUTH [place] 00 EVERY DAY Medical Branch TAMSULOSIN 2022-0 Yes [id number] TAKE 1 U nivers 0.4 mg 24 3-23 CAPSULE BY ity of hr capsule 00:00: MOUTH [place] 00 EVERY DAY Medical Branch TAMSULOSIN 0 Yes [id number] TAKE 1 U nivers 0.4 mg 24 3-23 CAPSULE BY ity of hr capsule 00:00: MOUTH [place] 00 EVERY DAY Medical Branch ibuprofen Yes [id number] 400mg Take 2 U nivers (MOTRIN IB) 3-22 tablets by it y of 200 mg 00:00: mouth [place] tablet 00 every 6 Medical (six) Branch hours as needed for Pain (scale 1-3). ibuprofen Yes [id number] 400mg Take 2 U nivers (MOTRIN IB) 3-22 tablets by it y of 200 mg 00:00: mouth [place] tablet 00 every 6 Medical (six) Branch hours as needed for Pain (scale 1-3). ibuprofen Yes [id number] 400mg Take 2 U nivers (MOTRIN IB) 3-22 tablets by it y of 200 mg 00:00: mouth [place] tablet 00 every 6 Medical (six) Branch hours as needed for Pain (scale 1-3). ibuprofen Yes [id number] 400mg Take 2 U nivers (MOTRIN IB) 3-22 tablets by it y of 200 mg 00:00: mouth [place] tablet 00 every 6 Medical (six) Branch hours as needed for Pain (scale 1-3). acetaminoph 2022- No [id number] 650mg Take 2 Univers en 325 mg 3-22 03-23 tablets by ity of tablet 00:00: 04:59 mouth [place] 00 :00 every 6 Medical (six) Branch hours as needed for Pain (scale 1-3). acetaminoph 2022- No [id number] 650mg Take 2 Univers en 325 mg 3-22 03-23 tablets by ity of tablet 00:00: 04:59 mouth [place] 00 :00 every 6 Medical (six) Branch hours as needed for Pain (scale 1-3). acetaminoph 2022- No [id number] 650mg Take 2 Univers en 325 mg 3-22 03-23 tablets by ity of tablet 00:00: 04:59 mouth [place] 00 :00 every 6 Medical (six) Branch hours as needed for Pain (scale 1-3). acetaminoph 2022-0 2023- No [id number] 650mg Take 2 Univers en 325 mg 3-22 03-23 tablets by ity of tablet 00:00: 04:59 mouth [place] 00 :00 every 6 Medical (six) Branch hours as needed for Pain (scale 1-3). ibuprofen 2021-0 Yes [id number] 400mg Take 2 U nivers (MOTRIN IB) 3-08 tablets by it y of 200 mg 00:00: mouth [place] tablet 00 every 6 Medical (six) Branch hours as needed for Pain (scale 1-3). phenazopyri 2021-0 Yes [id number] 100mg Take 1 Univers dine 100 mg 3-08 tablet by ity of tablet 00:00: mouth 3 [place] 00 (three) Medical times Branch daily as needed (Bladder Pain). ibuprofen 2021-0 Yes [id number] 400mg Take 2 U nivers (MOTRIN IB) 3-08 tablets by it y of 200 mg 00:00: mouth [place] tablet 00 every 6 Medical (six) Branch hours as needed for Pain (scale 1-3). phenazopyri 2021-0 Yes [id number] 100mg Take 1 Univers dine 100 mg 3-08 tablet by ity of tablet 00:00: mouth 3 [place] 00 (three) Medical times Branch daily as needed (Bladder Pain). ibuprofen 2021-0 Yes [id number] 400mg Take 2 U nivers (MOTRIN IB) 3-08 tablets by it y of 200 mg 00:00: mouth [place] tablet 00 every 6 Medical (six) Branch hours as needed for Pain (scale 1-3). phenazopyri 2021-0 Yes [id number] 100mg Take 1 Univers dine 100 mg 3-08 tablet by ity of tablet 00:00: mouth 3 [place] 00 (three) Medical times Branch daily as needed (Bladder Pain). ibuprofen 2021-0 Yes [id number] 400mg Take 2 U nivers (MOTRIN IB) 3-08 tablets by it y of 200 mg 00:00: mouth [place] tablet 00 every 6 Medical (six) Branch hours as needed for Pain (scale 1-3). phenazopyri 2021-0 Yes [id number] 100mg Take 1 Univers dine 100 mg 3-08 tablet by ity of tablet 00:00: mouth 3 [place] 00 (three) Medical times Branch daily as needed (Bladder Pain). acetaminoph 2021-0 3- No [id number] 650mg Take 2 Univers en 325 mg 3-08 03-09 tablets by ity of tablet 00:00: 05:59 mouth [place] 00 :00 every 6 Medical (six) Branch hours as needed for Pain (scale 1-3). acetaminoph 2-0 2023- No [id number] 650mg Take 2 Univers en 325 mg 3- 03-09 tablets by ity of tablet 00:00: 05:59 mouth [place] 00 :00 every 6 Medical (six) Branch hours as needed for Pain (scale 1-3). acetaminoph 2021-0 2023- No [id number] 650mg Take 2 Univers en 325 mg 3- 03-09 tablets by ity of tablet 00:00: 05:59 mouth [place] 00 :00 every 6 Medical (six) Branch hours as needed for Pain (scale 1-3). acetaminoph 2021-0 3- No [id number] 650mg Take 2 Univers en 325 mg 3- 03-09 tablets by ity of tablet 00:00: 05:59 mouth [place] 00 :00 every 6 Medical (six) Branch hours as needed for Pain (scale 1-3). sulfamethox 2022-0 Yes [id number] 1{tbl} Take 1 Univers azole-trime 3-07 tablet by ity of thoprim 00:00: mouth 2 [place] (BACTRIM 00 (two) Medical DS) 800-160 times Branch mg per daily. tablet sulfamethox 2022-0 Yes [id number] 1{tbl} Take 1 Univers azole-trime 3-07 tablet by ity of thoprim 00:00: mouth 2 [place] (BACTRIM 00 (two) Medical DS) 800-160 times Branch mg per daily. tablet sulfamethox 2022-0 Yes [id number] 1{tbl} Take 1 Univers azole-trime 3-07 tablet by ity of thoprim 00:00: mouth 2 [place] (BACTRIM 00 (two) Medical DS) 800-160 times Branch mg per daily. tablet sulfamethox 2022-0 Yes [id number] 1{tbl} Take 1 Univers azole-trime 3-07 tablet by ity of thoprim 00:00: mouth 2 [place] (BACTRIM 00 (two) Medical DS) 800-160 times Branch mg per daily. tablet ketorolac 2-0 Yes [id number] 10mg Take 1 Un leonel 10 mg 2-22 tablet by ity of tablet 00:00: mouth [place] 00 every 6 Medical (six) Branch hours as needed for Pain (scale 1-3). ketorolac 2021-0 Yes [id number] 10mg Take 1 Un le[place] 10 mg 2-22 tablet by ity of tablet 00:00: mouth [place] 00 every 6 Medical (six) Branch hours as needed for Pain (scale 1-3). ketorolac 202-0 Yes [id number] 10mg Take 1 Un le[place] 10 mg 2-22 tablet by ity of tablet 00:00: mouth [place] 00 every 6 Medical (six) Branch hours as needed for Pain (scale 1-3). ketorolac 2021-0 Yes [id number] 10mg Take 1 Un le[place] 10 mg 2-22 tablet by ity of tablet 00:00: mouth [place] 00 every 6 Medical (six) Branch hours as needed for Pain (scale 1-3). solifenacin 2020-08 Yes [id number] 10mg Take 1 Univers (VESICARE) 2-17 tablet by ity of 10 mg 00:00: mouth at [place] tablet 00 bedtime. Medical Branch solifenacin 2020-08 Yes [id number] 10mg Take 1 Univers (VESICARE) 2-17 tablet by ity of 10 mg 00:00: mouth at [place] tablet 00 bedtime. Medical Branch solifenacin 2020-08 Yes [id number] 10mg Take 1 Univers (VESICARE) 2-17 tablet by ity of 10 mg 00:00: mouth at [place] tablet 00 bedtime. Medical Branch solifenacin 2020-08 Yes [id number] 10mg Take 1 Univers (VESICARE) 2-17 tablet by ity of 10 mg 00:00: mouth at [place] tablet 00 bedtime. Medical Branch traMADoL 2019-08 Yes [id number] 50mg Take 1 Univers (ULTRAM) 50 2-02 tablet by ity of mg tablet 00:00: mouth [place] 00 every 6 Medical (six) Branch hours as needed for Pain (scale 7-10). Indication s: acute pain methocarbam 2019-08 Yes [id number] 750mg Take 1 Univers oL 750 mg [...] Indication s: acute pain methocarbam 2019-08 Yes [id number] 750mg Take 1 Univers oL 750 mg [...] Indication s: acute pain methocarbam 2019-08 Yes [id number] 750mg Take 1 Univers oL 750 mg [...] Indication s: acute pain methocarbam 2019-08 Yes [id number] 750mg Take 1 Univers oL 750 mg 2-02 tablet by ity o f tablet 00:00: mouth [place] 00 every 6 Medical (six) Branch hours as needed (MUSCLE SPASM). cetirizine 2019-0 Yes [id number] 10mg Take 1 Univers 10 mg 3-16 tablet by ity of tablet 00:00: mouth [place] 00 daily. Medical Branch fluticasone 2019-0 Yes [id number] 2{spray Use 2 Univers propionate 3-16 } Sprays in ity of 50 00:00: each [place] mcg/actuati 00 nostril Medic al on nasal daily. Branch spray cetirizine 2019-0 Yes [id number] 10mg Take 1 Univers 10 mg 3-16 tablet by ity of tablet 00:00: mouth [place] 00 daily. Medical Branch fluticasone 2019-0 Yes [id number] 2{spray Use 2 Univers propionate 3-16 } Sprays in ity of 50 00:00: each [place] mcg/actuati 00 nostril Medic al on nasal daily. Branch spray cetirizine 2020-0 Yes [id number] 10mg Take 1 Univers 10 mg 3-16 tablet by ity of tablet 00:00: mouth 00 daily. Medical Branch fluticasone 2020-0 Yes [id number] 2{spray Use 2 Univers propionate 3-16 } Sprays in ity of 50 00:00: each [place] mcg/actuati 00 nostril Medic al on nasal daily. Branch spray cetirizine 2020-0 Yes [id number] 10mg Take 1 Univers 10 mg 3-16 tablet by ity of tablet 00:00: mouth 00 daily. Medical Branch fluticasone 2020-0 Yes [id number] 2{spray Use 2 Univers propionate 3-16 } [...] Tablet 15:24: Q12H, # 6 H ermann tab, 0 Refill(s) Albuterol 2018- Yes 3 mL, NEB, Me moria 0.833 MG/ML 3-06 RQ4H, PRN l / 15:24: Wheezing, [place] Ipratropium 00 0 [place] Refill(s) 0.167 MG/ML Inhalant Solution Acetaminoph 2018- Yes 100.4 F, M emoria en 325 MG 3-06 0 l Oral Tablet 15:24: Refill(s) H erm methocarbam 2018- Yes 500 mg = 1 Memoria ol 500 mg 3-06 tab, PO, l oral tablet 15:24: Q8H, X 5 He rm day, # 15 tab, 0 Refill(s) Levetiracet 2018- Yes 500 mg = 1 Memoria am 500 MG 3-06 tab, PO, l Oral Tablet 15:24: Q12H, # 6 H ermann 00 tab, 0 Refill(s) Albuterol 2018-0 Yes 3 mL, NEB, Me moria 0.833 MG/ML 3-06 RQ4H, PRN l / 15:24: Wheezing, [place] Ipratropium 00 0 [place] Refill(s) 0.167 MG/ML Inhalant Solution Acetaminoph Yes [...] 3-06 RQ4H, PRN l / 15:24: Wheezing, [place] Ipratropium 00 0 [place] Refill(s) 0.167 MG/ML Inhalant Solution Acetaminoph Yes 100.4 F, M emoria en 325 MG 3-06 0 l Oral Tablet 15:24: Refill(s) H Bisacodyl No Notes: Memori a 3-05 (Same As: l 20:47: Dulcolax, [place] 00 Bisco-Lax) Bisacodyl No Notes: Memori a 3-05 (Same As: l 20:47: Dulcolax, [place] 00 Bisco-Lax) Bisacodyl No Notes: Memori a 3-05 (Same As: l 20:47: Dulcolax, [place] 00 Bisco-Lax) Tramadol No Notes: Not Mem oria 3-05 to exceed l 19:56: 400mg/day. (Same As: Ultram) Tramadol No Notes: Not Mem oria 3-05 to exceed l 19:56: 400mg/day. Acrlos 00 (Same As: Ultram) Tramadol No Notes: Not Mem oria 3-05 to exceed l 19:56: 400mg/day. [place] 00 (Same As: Ultram) heparin No Notes: Memoria 3-05 porcine l 05:55: heparin [place] heparin No Notes: Memoria 3-05 porcine l 05:55: heparin [place] heparin No Notes: Memoria 3-05 porcine l 05:55: heparin [place] remove No 1 patch, Memoria patch 3-05 Route: l 03:00: TOP, [place] 00 Bedtime, Drug form: ERFILM, Start date: 10/09/18 21:00:00 [place], Duration: 30 day, Stop date: 11/07/18 21:00:00 CDT remove No 1 patch, Memoria patch 3-05 Route: l 03:00: TOP, [place] 00 Bedtime, Drug form: ERFILM, Start date: 10/09/18 21:00:00 [place], Duration: 30 day, Stop date: 11/07/18 21:00:00 CDT remove No 1 patch, Memoria patch 305 Route: l 03:00: TOP, [place] 00 Bedtime, Drug form: ERFILM, Start date: 10/09/18 21:00:00 [place], Duration: 30 day, Stop date: 11/07/18 21:00:00 CDT Robaxin No Notes: Memoria 3-04 (Same l 19:00: as:Robaxin [place] 00 ) Robaxin No Notes: Memoria 3-04 (Same l 19:00: as:Robaxin [place] 00 ) Robaxin No Notes: Memoria 3-04 (Same l 19:00: as:Robaxin [place] 00 ) Lyrica No Notes: Memoria 3-04 (Same as: l 15:18: Lyrica) [place] Lyrica No Notes: Memoria 3-04 (Same as: l 15:18: Lyrica) [place] Lyrica No Notes: Memoria 3-04 (Same as: l 15:18: Lyrica) [place] 00 Miralax 2018- No Notes: Memoria 3-04 Dissolve l 15:17: in 8 oz of [place] 00 water or juice. (Same as: Miralax) Miralax 0 No Notes: Memoria 3-04 Dissolve l 15:17: in 8 oz of [place] 00 water or juice. (Same as: Miralax) Miralax No Notes: Memoria 3-04 Dissolve l 15:17: in 8 oz of [place] 00 water or juice. (Same as: Miralax) Lidocaine No 1 patch, [place] anny 0.05 MG/MG 3-04 Route: l Transdermal 15:00: TOP, Narinder n Patch 00 Daily, Drug form: FILM, Start date: 10/09/18 9:00:00 [place], Duration: 30 day, Stop date: 11/07/18 9:00:00 CDT Lidocaine No 1 patch, [place] anny 0.05 MG/MG 3-04 Route: l Transdermal 15:00: TOP, Narinder n Patch 00 Daily, Drug form: FILM, Start date: 10/09/18 9:00:00 [place], Duration: 30 day, Stop date: 11/07/18 9:00:00 CDT Lidocaine No 1 patch, [place] anny 0.05 MG/MG 3-04 Route: l Transdermal 15:00: TOP, Narinder n Patch 00 Daily, Drug form: FILM, Start date: 10/09/18 9:00:00 [place], Duration: 30 day, Stop date: 11/07/18 9:00:00 CDT Tramadol 0 No Notes: Not Mem oria 3-04 to exceed l 04:24: 400mg/day. [place] 00 (Same As: Ultram) Tramadol 2018-0 No Notes: Not Mem oria 3-04 to exceed l 04:24: 400mg/day. [place] 00 (Same As: Ultram) Tramadol 2018-0 No Notes: Not Mem oria 3-04 to exceed l 04:24: 400mg/day. [place] 00 (Same As: Ultram) Keppra 2018-0 No Notes: Memoria 3-04 (Same l 03:00: as:Keppra) [place] 00 Saline 2019-0 No Notes: Memoria Flush 0.9% 3-04 (Same as: l 03:00: BD [place] Posiflush) Levetiracet No Notes: Memoria am 3-04 MEDICATION l 03:00: WASTE Product Size: 500 mg Product Wasted: ___ mg sennosides, No Notes: [place] anny [facility] 3-04 (Same as: l 03:00: Senokot) Docusate No 100 mg, 1 [place] anny 3-04 cap, l 03:00: Route: PO, [place] 00 Drug form: CAP, Q12H, Dosing Weight 95.455, kg, Start date: 10/08/18 21:00:00 [place], Duration: 30 day, Stop date: 11/07/18 9:00:00 CDT Keppra No Notes: Memoria 3-04 (Same l 03:00: as:Keppra) [place] 00 Saline No Notes: Memoria Flush 0.9% 3-04 (Same as: l 03:00: BD [place] Posiflush) Levetiracet No Notes: Memoria am 3-04 MEDICATION l 03:00: WASTE Product Size: 500 mg Product Wasted: ___ mg sennosides, No Notes: [place] anny [facility] 3-04 (Same as: l 03:00: Senokot) Docusate No 100 mg, 1 [place] anny 3-04 cap, l 03:00: Route: PO, [place] 00 Drug form: CAP, Q12H, Dosing Weight 95.455, kg, Start date: 10/08/18 21:00:00 [place], Duration: 30 day, Stop date: 11/07/18 9:00:00 CDT Keppra No Notes: Memoria 3-04 (Same l 03:00: as:Keppra) [place] 00 Saline No Notes: Memoria Flush 0.9% 3-04 (Same as: l 03:00: BD [place] Posiflush) Levetiracet 2019-0 No Notes: Memoria am 3-04 MEDICATION l 03:00: WASTE Product Size: 500 mg Product Wasted: ___ mg sennosides, 2018-0 No Notes: [place] anny [facility] 3-04 (Same as: l 03:00: Senokot) Docusate 2018-0 No 100 mg, 1 [place] anny 3-04 cap, l 03:00: Route: PO, Drug form: CAP, Q12H, Dosing Weight 95.455, kg, Start date: 10/08/18 21:00:00 [place], Duration: 30 day, Stop date: 11/07/18 9:00:00 [...] 1000 mg Product Wasted: ___ mg Vancomycin 2018-0 No 2001 mg: Me moria 3-04 infuse l 00:00: over 2.5 [place] 00 hours For adult patients only: Round to nearest 250 mg per Medical Staff approval MEDICATION WASTE Product Size: 1000 mg Product Wasted: ___ mg Artificial 2018-0 No 2 drp, Memor ia Tears 10-08 Route: l 23:00: BOTH EYES, [place] 00 BID, Drug form: SOLN, Start date: 10/08/18 17:00:00 [place], Duration: 30 day, Stop date: 11/07/18 9:00:00 CDT Artificial 2018-0 No 2 drp, Memor ia Tears 10-08 Route: l 23:00: BOTH EYES, [place] 00 BID, Drug form: SOLN, Start date: 10/08/18 17:00:00 [place], Duration: 30 day, Stop date: 11/07/18 9:00:00 CDT Artificial 2018-0 No 2 drp, Memor ia Tears 10-08 Route: l 23:00: BOTH EYES, BID, Drug form: SOLN, Start date: 10/08/18 17:00:00 [place], Duration: 30 day, Stop date: 11/07/18 9:00:00 CDT Vancomycin 2019-0 No 1 gm, Memori a 10-08 Route: IV, l 22:00: Q8H, Dosing Weight 95.455, kg, Start date: 10/08/18 16:00:00 [place], Duration: 1 day, Stop date: 10/09/18 8:00:00 [place], ABX Indication : Surgical Prophylaxi s Vancomycin 2019-0 No 1 gm, Memori a 10-08 Route: IV, l 22:00: Q8H, Dosing Weight 95.455, kg, Start date: 10/08/18 16:00:00 [place], Duration: 1 day, Stop date: 10/09/18 8:00:00 [place], ABX Indication : Surgical Prophylaxi s Vancomycin 2019-0 No 1 gm, Memori a 10-08 Route: IV, l 22:00: Q8H, Dosing Weight 95.455, kg, Start date: 10/08/18 16:00:00 [place], Duration: 1 day, Stop date: 10/09/18 8:00:00 [place], ABX Indication : Surgical Prophylaxi s Glucagon 2019-0 No 1 mg, Memoria 10-08 Route: IM, l 20:19: Drug form: PDR/INJ, PRN, Dosing Weight 95.455, kg, PRN Blood Glucose Results, Start date: 10/08/18 14:19:00 [place], Duration: 30 day, Stop date: 11/07/18 15:18:00 CDT Dextrose 2019-0 No 25 gm, 50 [place] anny 50% Syringe 3- mL, Route: l 20:19: IVP, Drug Form: INJ, Dosing Weight 95.455, kg, PRN, PRN Blood Glucose Results, Start date: 10/08/18 14:19:00 [place], Duration: 30 day, Stop date: 11/07/18 15:18:00 CDT Insulin 2019-0 No 60 units) [place] anny regular 10-08 WASTE: F/P l 20:19: - Black; E [place] 00 - Municipal Trash Bin Stable for 28 days at room temperatur e Expires in days from ____Date Glucagon 2018-0 No 1 mg, Memoria 10-08 Route: IM, l 20:19: Drug form: [place] 00 PDR/INJ, PRN, Dosing Weight 95.455, kg, PRN Blood Glucose Results, Start date: 10/08/18 14:19:00 [place], Duration: 30 day, Stop date: 11/07/18 15:18:00 CDT Dextrose 2019-0 No 25 gm, 50 [place] anny 50% Syringe 3-03 mL, Route: l 20:19: IVP, Drug Form: INJ, Dosing Weight 95.455, kg, PRN, PRN Blood Glucose Results, Start date: 10/08/18 14:19:00 [place], Duration: 30 day, Stop date: 11/07/18 15:18:00 CDT Insulin 2019-0 No 60 units) [place] anny regular 10-08 WASTE: F/P l 20:19: - Black; E [place] 00 - [facility] Trash Bin Stable for 28 days at room temperatur e Expires in days from ____Date Glucagon 2018-0 No 1 mg, Memoria 10-08 Route: IM, l 20:19: Drug form: PDR/INJ, PRN, Dosing Weight 95.455, kg, PRN Blood Glucose Results, Start date: 10/08/18 14:19:00 [place], Duration: 30 day, Stop date: 11/07/18 15:18:00 CDT Dextrose 2019-0 No 25 gm, 50 [place] anny 50% Syringe 3-03 mL, Route: l 20:19: IVP, Drug Form: INJ, Dosing Weight 95.455, kg, PRN, PRN Blood Glucose Results, Start date: 10/08/18 14:19:00 [place], Duration: 30 day, Stop date: 11/07/18 15:18:00 CDT Insulin 2019-0 No 60 units) [place] anny regular 10-08 WASTE: F/P l 20:19: - Black; E [place] - [facility] Trash Bin Stable for 28 days at room temperatur e Expires in days from ____Date Potassium No Notes: Memori a Chloride 3-03 (Same as: l 20:18: KCL) [place] 00 Infuse over 2 hours. Calcium No Notes: [facility] Gluconate 3- WASTE: F/P l 20:18: - Sink; E [place] - [facility] Trash [facility] Magnesium No Notes: Memori a Oxide 3-03 (Same as: l 20:18: Mag-Ox [place] 00 400) Magnesium oxide 143rv=807v g elemental magnesium Dose=____m g magnesium oxide (___mg elemental magnesium) Calcium No Notes: [facility] Carbonate 3-03 (Same As: l 500 MG 20:18: Tums) [place] Chewable 00 Calcium Tablet Carbonate 500 mg = 200 mg elemental calcium Dose = mg calcium carbonate ( mg elemental calcium) potassium No Notes: Memori a phosphate 3-03 (Same as: l 20:18: K [place] 00 Phosphate. ) Do not infuse phosphorou s concurrent ly in the same line as TPN or IVF that contains calcium. For double lumen central lines, phosphorou s may be infused in a separate lumen from TPN. 1 mMol phoshate has 1.47 mEq potassium Infuse over 4 hours potassium No Notes: Memori a phosphate-s -03 (Same as: l odium 20:18: Phos-NaK) [place] phosphate 00 Each 1.5 250 mg-280 gm pkt has mg-160 mg 250mg oral powder phosphorou for s. Mix reconstitut w/2.5oz ion water and stir. Magnesium No Notes: Memori a Sulfate 3- WASTE: F/P l 20:18: - Sink; E [place] - [facility] Tr[facility] sodium No Notes: [facility]oria phosphate 3-03 Infuse l 20:18: over 4 [place] 00 hour. Do not infuse phosphorou s [...] 20:18: Mag-Ox [place] 00 400) Magnesium oxide [id number] g elemental magnesium Dose=____m g magnesium oxide [...] WASTE: F/P l 20:18: - Sink; E [place] - [facility] sodium No Notes: [facility] phosphate 3-03 Infuse l 20:18: over 4 [place] 00 hour. Do not infuse phosphorou s [...] WASTE: F/P l 20:18: - Sink; E [place] - [facility] Magnesium No Notes: Memori a Oxide 3-03 (Same as: l 20:18: Mag-Ox [place] 00 400) Magnesium oxide [id number]=401r g elemental magnesium Dose=____m g magnesium oxide (___mg elemental magnesium) Calcium No Notes: [facility] Carbonate 3- (Same As: l 500 MG 20:18: Tums) [place] Chewable 00 Calcium Tablet Carbonate 500 mg = 200 mg elemental calcium Dose = mg calcium carbonate ( mg elemental calcium) potassium No Notes: Memori a phosphate -03 (Same as: l 20:18: K [place] 00 Phosphate. ) Do not infuse phosphorou [...] 3-03 mL, Route: l 20:13: IVP, Drug [place] 00 form: INJ, Q4H, Dosing Weight 95.455, kg, PRN Hypertensi on, Start date: 10/08/18 14:13:00 [facility], Duration: 30 day, Stop date: 11/07/18 14:12:00 CDT Hydralazine 2019-0 No Notes: [facility] anny 3-03 (Same as: l 20:13: Apresoline [place] ) Push over 5 minutes Labetalol 2019-0 No 10 mg, 2 Edison anny 3-03 mL, Route: l 20:13: IVP, Drug [place] form: INJ, Q4H, Dosing Weight 95.455, kg, PRN Hypertensi on, Start date: 10/08/18 14:13:00 [facility], Duration: 30 day, Stop date: 11/07/18 14:12:00 CDT Hydralazine 2019-0 No Notes: Edison anny 3-03 (Same as: l 20:13: Apresoline [place] ) Push over 5 minutes Labetalol 2018-0 No 10 mg, 2 Edison anny 3-03 mL, Route: l 20:13: IVP, Drug [place] 00 form: INJ, Q4H, Dosing Weight 95.455, kg, PRN Hypertensi on, Start date: 10/08/18 14:13:00 [facility], Duration: 30 day, Stop date: 11/07/18 14:12:00 CDT sugammadex 2019-0 No Route: IV, M emoria (ANES) 3- Drug form: l 18:30: SOLN, [place] 00 ONCE, Stop date: 10/08/18 12:30:00 [facility] sugammadex 2019-0 No Route: IV, M emoria (ANES) 3- Drug form: l 18:30: SOLN, [place] 00 ONCE, Stop date: 10/08/18 12:30:00 [facility] sugammadex 2019-0 No Route: IV, M emoria (ANES) 3- Drug form: l 18:30: SOLN, [place] 00 ONCE, Stop date: 10/08/18 12:30:00 [facility] Hydralazine 2019-0 No 10 mg, Edison anny 3-03 Route: l 18:18: IVP, [place] 00 Q20Min, Dosing Weight 95.455, kg, PRN Elevated BP, Start date: 10/08/18 12:18:00 [facility], Duration: 2 doses or times, Stop date: Limited # of times Labetalol 2019-0 No 10 mg, 2 Edison anny 3-03 mL, Route: l 18:18: IVP, Drug form: INJ, Q5Min, Dosing Weight 95.455, kg, PRN Elevated BP, Start date: 10/08/18 12:18:00 [facility], Duration: 5 doses or times, Stop date: 10/09/18 0:00:00 [facility] Acetaminoph 2019-0 No 1,000 mg, M emoria en 3 Route: PO, l 18:18: Drug form: [place] 00 TAB, ONCE, Dosing Weight 95.455, kg, PRN Pain Score 1-3, Start date: 10/08/18 12:18:00 [facility] Promethazin 2019-0 No 6.25 mg, Me moria e 3 Route: l 18:18: IVPB, [place] 00 ONCE, Dosing Weight 95.455, kg, PRN Nausea & Vomiting, Start date: 10/08/18 12:18:00 [facility] Ondansetron 2019-0 No 4 mg, Memor ia 3- Route: l 18:18: IVP, ONCE, Dosing Weight 95.455, kg, PRN Nausea & Vomiting, Start date: 10/08/18 12:18:00 [facility] Dexamethaso 2019-0 No 4 mg, Memor ia ne 3 Route: l 18:18: IVP, ONCE, Dosing Weight 95.455, kg, PRN Nausea & Vomiting, Start date: 10/08/18 12:18:00 [facility] Naloxone 2019-0 No 0.4 mg, Memori a 3 Route: l 18:18: IVP, [place] 00 Q2MIN, Dosing Weight 95.455, kg, PRN Narcotic Reversal, Start date: 10/08/18 12:18:00 [facility], Duration: 8 doses or times, Stop date: Limited # of times Flumazenil 2019-0 No 0.2 mg, Edison anny 3-03 Route: l 18:18: IVP, PRN, [place] 00 Dosing Weight 95.455, kg, PRN Benzodiaze pine Reversal, Initial dose, Start date: 10/08/18 12:18:00 [facility], Duration: 30 day, Stop date: 11/07/18 13:17:00 CDT Hydromorpho 2019-0 No 0.5 mg, Mem oria ne 3- Route: l 18:18: IVP, [place] 00 Q5Min, Dosing Weight 95.455, kg, PRN Pain Score 7-10, Start date: 10/08/18 12:18:00 [facility], Duration: 4 doses or times, Stop date: Limited # of times Hydralazine 2019-0 No 10 mg, Edison anny 3- Route: l 18:18: IVP, [place] 00 Q20Min, Dosing Weight 95.455, kg, PRN Elevated BP, Start date: 10/08/18 12:18:00 [facility], Duration: 2 doses or times, Stop date: Limited # of times Labetalol 2019-0 No 10 mg, 2 Edison anny 3-03 mL, Route: l 18:18: IVP, Drug form: INJ, Q5Min, Dosing Weight 95.455, kg, PRN Elevated BP, Start date: 10/08/18 12:18:00 [facility], Duration: 5 doses or times, Stop date: 10/09/18 0:00:00 [facility] Acetaminoph 2019-0 No 1,000 mg, M emoria en 10-08 Route: PO, l 18:18: Drug form: [place] 00 TAB, ONCE, Dosing Weight 95.455, kg, PRN Pain Score 1-3, Start date: 10/08/18 12:18:00 [facility] Promethazin 2019-0 No 6.25 mg, Me moria e 3- Route: l 18:18: IVPB, ONCE, Dosing Weight 95.455, kg, PRN Nausea & Vomiting, Start date: 10/08/18 12:18:00 [facility] Ondansetron 2019-0 No 4 mg, Memor ia 3- Route: l 18:18: IVP, ONCE, Dosing Weight 95.455, kg, PRN Nausea & Vomiting, Start date: 10/08/18 12:18:00 [facility] Dexamethaso 2019-0 No 4 mg, Memor ia ne 10-08 Route: l 18:18: IVP, ONCE, [place] 00 Dosing Weight 95.455, kg, PRN Nausea & Vomiting, Start date: 10/08/18 12:18:00 [facility] Naloxone 2019-0 No 0.4 mg, Memori a 10-08 Route: l 18:18: IVP, [place] 00 Q2MIN, Dosing Weight 95.455, kg, PRN Narcotic Reversal, Start date: 10/08/18 12:18:00 [facility], Duration: 8 doses or times, Stop date: Limited # of times Flumazenil 2019-0 No 0.2 mg, Edison anny 10-08 Route: l 18:18: IVP, PRN, [place] 00 Dosing Weight 95.455, kg, PRN Benzodiaze pine Reversal, Initial dose, Start date: 10/08/18 12:18:00 [facility], Duration: 30 day, Stop date: 11/07/18 13:17:00 CDT Hydromorpho 2019-0 No 0.5 mg, Mem oria ne 10-08 Route: l 18:18: IVP, [place] 00 Q5Min, Dosing Weight 95.455, kg, PRN Pain Score 7-10, Start date: 10/08/18 12:18:00 [facility], Duration: 4 doses or times, Stop date: Limited # of times Hydralazine 2019-0 No 10 mg, Edison anny - Route: l 18:18: IVP, [place] 00 Q20Min, Dosing Weight 95.455, kg, PRN Elevated BP, Start date: 10/08/18 12:18:00 [facility], Duration: 2 doses or times, Stop date: Limited # of times Labetalol 2019-0 No 10 mg, 2 [facility] anny 3-03 mL, Route: l 18:18: IVP, Drug [place] 00 form: INJ, Q5Min, Dosing Weight 95.455, kg, PRN Elevated BP, Start date: 10/08/18 12:18:00 [facility], Duration: 5 doses or times, Stop date: 10/09/18 0:00:00 [facility] Acetaminoph 2019-0 No 1,000 mg, M emoria en 10-08 Route: PO, l 18:18: Drug form: [place] 00 TAB, ONCE, Dosing Weight 95.455, kg, PRN Pain Score 1-3, Start date: 10/08/18 12:18:00 [facility] Promethazin 2019-0 No 6.25 mg, Me moria e 3- Route: l 18:18: IVPB, [place] 00 ONCE, Dosing Weight 95.455, kg, PRN Nausea & Vomiting, Start date: 10/08/18 12:18:00 [facility] Ondansetron 2019-0 No 4 mg, Memor ia 3- Route: l 18:18: IVP, ONCE, Dosing Weight 95.455, kg, PRN Nausea & Vomiting, Start date: 10/08/18 12:18:00 [facility] Dexamethaso 2019-0 No 4 mg, Memor ia ne 3- Route: l 18:18: IVP, ONCE, Dosing Weight 95.455, kg, PRN Nausea & Vomiting, Start date: 10/08/18 12:18:00 [facility] Naloxone 2019-0 No 0.4 mg, Memori a - Route: l 18:18: IVP, [place] 00 Q2MIN, Dosing Weight 95.455, kg, PRN Narcotic Reversal, Start date: 10/08/18 12:18:00 [facility], Duration: 8 doses or times, Stop date: Limited # of times Flumazenil 2019-0 No 0.2 mg, Edison anny 10-08 Route: l 18:18: IVP, PRN, Dosing Weight 95.455, kg, PRN Benzodiaze pine Reversal, Initial dose, Start date: 10/08/18 12:18:00 [facility], Duration: 30 day, Stop date: 11/07/18 13:17:00 CDT Hydromorpho 2019-0 No 0.5 mg, Mem oria ne 3- Route: l 18:18: IVP, [place] 00 Q5Min, Dosing Weight 95.455, kg, PRN Pain Score 7-10, Start date: 10/08/18 12:18:00 [facility], Duration: 4 doses or times, Stop date: Limited # of times sugammadex 2019-0 No Notes: Memor ia 3-03 (Same as: l 18:00: [place]) [place] 00 sugammadex 2019-0 No Notes: Memor ia 3- (Same as: l 18:00: [place]) sugammadex 2018-0 No Notes: Memor ia 3- (Same as: l 18:00: [place]) famotidine 2018-0 No Route: IV, M emoria (ANES) 10-08 Drug form: l 17:59: INJ, ONCE, Stop date: 10/08/18 11:59:00 [facility] metoclopram 2019-0 No Route: IV, Memoria anais (ANES) 10-08 Drug form: l 17:59: INJ, ONCE, Stop date: 10/08/18 11:59:00 [facility] ondansetron 2019-0 No Route: IV, [facility]oria (ANES) 10-08 Drug form: l 17:59: INJ, ONCE, Stop date: 10/08/18 11:59:00 [facility] famotidine 2018-0 No Route: IV, M emoria (ANES) 10-08 Drug form: l 17:59: INJ, ONCE, Stop date: 10/08/18 11:59:00 [facility] metoclopram 2018-0 No Route: IV, [facility]oria anais (ANES) 10-08 Drug form: l 17:59: INJ, ONCE, Stop date: 10/08/18 11:59:00 [facility] ondansetron 2019-0 No Route: IV, Memoria (ANES) 10-08 Drug form: l 17:59: INJ, ONCE, Stop date: 10/08/18 11:59:00 [facility] famotidine 2018-0 No Route: IV, M emoria (ANES) 10-08 Drug form: l 17:59: INJ, ONCE, Stop date: 10/08/18 11:59:00 [facility] metoclopram 2019-0 No Route: IV, Memoria anais (ANES) 10-08 Drug form: l 17:59: INJ, ONCE, Stop date: 10/08/18 11:59:00 [facility] ondansetron 2019-0 No Route: IV, [facility]oria (ANES) 10-08 Drug form: l 17:59: INJ, ONCE, Stop date: 10/08/18 11:59:00 [facility] phenylephri 2018-0 No Route: IV, Memoria ne (ANES) 10-08 Drug form: l 17:57: INJ, ONCE, Stop date: 10/08/18 11:57:00 [facility] phenylephri 2018-0 No Route: IV, Memoria ne (ANES) 10-08 Drug form: l 17:57: INJ, ONCE, Stop date: 10/08/18 11:57:00 [facility] phenylephri 2018-0 No Route: IV, Memoria ne (ANES) 10-08 Drug form: l 17:57: INJ, ONCE, Stop date: 10/08/18 11:57:00 [facility] lidocaine 2018-0 No Route: IV, Me moria (ANES) 10-08 Drug form: l 17:51: INJ, ONCE, Stop date: 10/08/18 11:51:00 [facility] dexamethaso 2018-0 No Route: IV, Memoria ne (ANES) 10-08 Drug form: l 17:51: INJ, ONCE, Stop date: 10/08/18 11:51:00 [facility] propofol 2019-0 No Route: IV, Mem oria (ANES) 10-08 Drug form: l 17:51: INJ, ONCE, Stop date: 10/08/18 11:51:00 [facility] rocuronium 2018-0 No Route: IV, M emoria (ANES) 10-08 Drug form: l 17:51: INJ, ONCE, Stop date: 10/08/18 11:51:00 [facility] levETIRAcet 2018-0 No Route: IV, Memoria am (ANES) 10-08 Drug form: l 17:51: INJ, ONCE, Stop date: 10/08/18 11:51:00 [facility] fentaNYL 2019-0 No Route: IV, Mem oria (ANES) 10-08 Drug form: l 17:51: INJ, ONCE, Stop date: 10/08/18 11:51:00 [facility] lidocaine 2019-0 No Route: IV, Me moria (ANES) 10-08 Drug form: l 17:51: INJ, ONCE, Stop date: 10/08/18 11:51:00 [facility] dexamethaso 2019-0 No Route: IV, Memoria ne (ANES) 10-08 Drug form: l 17:51: INJ, ONCE, Stop date: 10/08/18 11:51:00 [facility] propofol 2019-0 No Route: IV, Mem oria (ANES) 10-08 Drug form: l 17:51: INJ, ONCE, Stop date: 10/08/18 11:51:00 [facility] rocuronium 2019-0 No Route: IV, M emoria (ANES) 10-08 Drug form: l 17:51: INJ, ONCE, Stop date: 10/08/18 11:51:00 [facility] levETIRAcet 2019-0 No Route: IV, Memoria am (ANES) 10-08 Drug form: l 17:51: INJ, ONCE, Stop date: 10/08/18 11:51:00 [facility] fentaNYL 2019-0 No Route: IV, Mem oria (ANES) 10-08 Drug form: l 17:51: INJ, ONCE, Stop date: 10/08/18 11:51:00 [facility] lidocaine 2019-0 No Route: IV, Me moria (ANES) 10-08 Drug form: l 17:51: INJ, ONCE, Stop date: 10/08/18 11:51:00 [facility] dexamethaso 2019-0 No Route: IV, Memoria ne (ANES) 10-08 Drug form: l 17:51: INJ, ONCE, Stop date: 10/08/18 11:51:00 [facility] propofol 2019-0 No Route: IV, Mem oria (ANES) 10-08 Drug form: l 17:51: INJ, ONCE, Stop date: 10/08/18 11:51:00 [facility] rocuronium 2019-0 No Route: IV, M emoria (ANES) 3 Drug form: l 17:51: INJ, ONCE, Stop date: 10/08/18 11:51:00 [facility] levETIRAcet 2019-0 No Route: IV, Memoria am (ANES) 10-08 Drug form: l 17:51: INJ, ONCE, Stop date: 10/08/18 11:51:00 [facility] fentaNYL 2019-0 No Route: IV, Mem oria (ANES) 10-08 Drug form: l 17:51: INJ, ONCE Stop date: 10/08/18 11:51:00 [facility] propofol 2019-0 No Route: IV, Mem oria (ANES) 10 10-08 Drug form: l mg 16:30: INJ, Start date: 10/08/18 10:30:00 [facility], Stop date: 10/08/18 11:30:00 [facility] remifentani 2019-0 No Route: IV, Memoria l (ANES) 1 10-08 Drug form: l mg 16:30: INJ, Start [place] 00 date: 10/08/18 10:30:00 [facility], Stop date: 10/08/18 11:30:00 [facility] propofol 2019-0 No Route: IV, Mem oria (ANES) 10 10-08 Drug form: l mg 16:30: INJ, Start date: 10/08/18 10:30:00 [facility], Stop date: 10/08/18 11:30:00 [facility] remifentani 2018-0 No Route: IV, Memoria l (ANES) 1 10-08 Drug form: l mg 16:30: INJ, Start [place] 00 date: 10/08/18 10:30:00 [facility], Stop date: 10/08/18 11:30:00 [facility] propofol 2019-0 No Route: IV, Mem oria (ANES) 10 10-08 Drug form: l mg 16:30: INJ, Start [place] 00 date: 10/08/18 10:30:00 [facility], Stop date: 10/08/18 11:30:00 [facility] remifentani 2018-0 No Route: IV, Memoria l (ANES) 1 10-08 Drug form: l mg 16:30: INJ, Start [place] 00 date: 10/08/18 10:30:00 [facility], Stop date: 10/08/18 11:30:00 [facility] Sodium 2019-0 No Route: IV, Memor ia Chloride 10-08 Drug form: l 0.9% IV 16:25: INJ, Start Herm ree (ANES) 235 00 date: mL + 10/08/18 vancomycin 10:25:00 (ANES) 1500 [facility], Stop mg date: 10/08/18 11:25:00 [facility] Sodium 2019-0 No Route: IV, Memor ia Chloride -03 Drug form: l 0.9% IV 16:25: INJ, Start Herm ree (ANES) 235 00 date: mL + 10/08/18 vancomycin 10:25:00 (ANES) 1500 [facility], Stop mg date: 10/08/18 11:25:00 [facility] Sodium 2019-0 No Route: IV, Memor ia Chloride -03 Drug form: l 0.9% IV 16:25: INJ, Start Herm ree (ANES) 235 00 date: mL + 10/08/18 vancomycin 10:25:00 (ANES) 1500 [facility], Stop mg date: 10/08/18 11:25:00 [facility] Isolyte S 2019-0 No Route: IV, Me moria PH 7.4 3-03 Total l (ANES) 1000 16:09: Volume: Her salas mL 00 1,000, Start date: 10/08/18 10:09:00 [facility], Stop date: 10/08/18 11:09:00 [facility] Isolyte S 2019-0 No Route: IV, Me moria PH 7.4 3-03 Total l (ANES) 1000 16:09: Volume: Her sal[place] mL 00 1,000, Start date: 10/08/18 10:09:00 [facility], Stop date: 10/08/18 11:09:00 [facility] Isolyte S 2019-0 No Route: IV, Me moria PH 7.4 3-03 Total l (ANES) 1000 16:09: Volume: Her sal[place] mL 00 1,000, Start date: 10/08/18 10:09:00 [facility], Stop date: 10/08/18 11:09:00 [facility] Saline 2019-0 No Notes: [facility] Flush 0.9% 10-08 (Same as: l 15:57: BD [place] 00 Posiflush) Albuterol 2019-0 No 3 ml, Memoria 0.833 MG/ML 10-08 Route: l / 15:57: NEB, Drug [place] Ipratropium 00 Form: [place] SOLN, 0.167 MG/ML Dosing Inhalant Weight Solution 95.455, kg, RQ4H, PRN Wheezing, Start date: 10/08/18 9:57:00 [facility], Duration: 30 day, Stop date: 11/07/18 9:56:00 CDT Labetalol 2019-0 No 10 mg, 2 Edison anny 3-03 mL, Route: l 15:57: IVP, Drug form: INJ, Q15Min, Dosing Weight 95.455, kg, PRN Hypertensi on, Start date: 10/08/18 9:57:00 [facility], Duration: 30 day, Stop date: 11/07/18 10:56:00 CDT Hydralazine 0 No 20 mg, 1 Me moria 3-03 mL, Route: l 15:57: IVP, Drug form: INJ, Q4H, Dosing Weight 95.455, kg, PRN Hypertensi on, Start date: 10/08/18 9:57:00 [facility], Duration: 30 day, Stop date: 11/07/18 9:56:00 CDT Sodium 2018-0 No 1,000 mL, Memori a Chloride 10-08 Rate: 50 l 0.9% IV 15:57: ml/hr, [place] 1,000 mL 00 Infuse over: 20 hr, Route: IV, Dosing Weight 95.455 kg, Total Volume: 1,000, Start date: 10/08/18 9:57:00 [facility], Duration: 30 day, Stop date: 11/07/18 9:56:00 CDT, 2.16, m2 Levetiracet 2018-0 No Notes: Edison anny am -03 Same as l 15:57: Keppra Mix with 100 mL NS, LR or D5W MEDICATION WASTE Product Size: 500 mg Product Wasted: ___ mg Acetaminoph 2019-0 No 100.4 F, M emoria en 3-03 Start l 15:57: date: [place] 00 10/08/18 9:57:00 [facility], Duration: 30 day, Stop date: 11/07/18 9:56:00 CDT Ondansetron 2018-0 No Notes: Memoria 3-03 MEDICATION l 15:57: WASTE Product Size: 4 mg Product Wasted: ___ mg Bisacodyl 0 No 10 mg, 1 Edison anny 3-03 supp, l 15:57: Route: IA, [place] 00 Drug form: SUPP, Daily, Dosing Weight 95.455, kg, PRN Constipati on, Start date: 10/08/18 9:57:00 [facility], Duration: 30 day, Stop date: 11/07/18 9:56:00 CDT Saline 2019-0 No Notes: Memoria Flush 0.9% 3 (Same as: l 15:57: BD [place] 00 Posiflush) Albuterol 2019-0 No 3 ml, Memoria 0.833 MG/ML 10-08 Route: l / 15:57: NEB, Drug [place] Ipratropium 00 Form: [place] SOLN, 0.167 MG/ML Dosing Inhalant Weight Solution 95.455, kg, RQ4H, PRN Wheezing, Start date: 10/08/18 9:57:00 [facility], Duration: 30 day, Stop date: 11/07/18 9:56:00 CDT Labetalol 2019-0 No 10 mg, 2 Edison anny 3-03 mL, Route: l 15:57: IVP, Drug form: INJ, Q15Min, Dosing Weight 95.455, kg, PRN Hypertensi on, Start date: 10/08/18 9:57:00 [facility], Duration: 30 day, Stop date: 11/07/18 10:56:00 CDT Hydralazine 2018-0 No 20 mg, 1 Me moria 3-03 mL, Route: l 15:57: IVP, Drug form: INJ, Q4H, Dosing Weight 95.455, kg, PRN Hypertensi on, Start date: 10/08/18 9:57:00 [facility], Duration: 30 day, Stop date: 11/07/18 9:56:00 CDT Sodium 2019-0 No 1,000 mL, Memori a Chloride 10-08 Rate: 50 l 0.9% IV 15:57: ml/hr, [place] 1,000 mL 00 Infuse over: 20 hr, Route: IV, Dosing Weight 95.455 kg, Total Volume: 1,000, Start date: 10/08/18 9:57:00 [facility], Duration: 30 day, Stop date: 11/07/18 9:56:00 CDT, 2.16, m2 Levetiracet 2019-0 No Notes: Edison anny am - Same as l 15:57: Keppra Mix with 100 mL NS, LR or D5W MEDICATION WASTE Product Size: 500 mg Product Wasted: ___ mg Acetaminoph 0 No 100.4 F, M emoria en 10-08 Start l 15:57: date: 10/08/18 9:57:00 [facility], Duration: 30 day, Stop date: 11/07/18 9:56:00 CDT Ondansetron 2018-0 No Notes: Memoria - MEDICATION l 15:57: WASTE Product Size: 4 mg Product Wasted: ___ mg Bisacodyl No 10 mg, 1 Edison anny - supp, l 15:57: Route: IA, Drug form: SUPP, Daily, Dosing Weight 95.455, kg, PRN Constipati on, Start date: 10/08/18 9:57:00 [facility], Duration: 30 day, Stop date: 11/07/18 9:56:00 CDT Saline 2018-0 No Notes: Memoria Flush 0.9% 10-08 (Same as: l 15:57: BD Posiflush) Albuterol No 3 ml, Memoria 0.833 MG/ML 10-08 Route: l / 15:57: NEB, Drug Ipratropium Form: [place] SOLN, 0.167 MG/ML Dosing Inhalant Weight Solution 95.455, kg, RQ4H, PRN Wheezing, Start date: 10/08/18 9:57:00 [facility], Duration: 30 day, Stop date: 11/07/18 9:56:00 CDT Labetalol No 10 mg, 2 Edison anny 3-03 mL, Route: l 15:57: IVP, Drug form: INJ, Q15Min, Dosing Weight 95.455, kg, PRN Hypertensi on, Start date: 10/08/18 9:57:00 [facility], Duration: 30 day, Stop date: 11/07/18 10:56:00 CDT Hydralazine 0 No 20 mg, 1 Me moria 3-03 mL, Route: l 15:57: IVP, Drug form: INJ, Q4H, Dosing Weight 95.455, kg, PRN Hypertensi on, Start date: 10/08/18 9:57:00 [facility], Duration: 30 day, Stop date: 11/07/18 9:56:00 CDT Sodium 2019-0 No 1,000 mL, Memori a Chloride 10-08 Rate: 50 l 0.9% IV 15:57: ml/hr, [place] 1,000 mL 00 Infuse over: 20 hr, Route: IV, Dosing Weight 95.455 kg, Total Volume: 1,000, Start date: 10/08/18 9:57:00 [facility], Duration: 30 day, Stop date: 11/07/18 9:56:00 CDT, 2.16, m2 Levetiracet 2018-0 No Notes: Edison anny am 10-08 Same as l 15:57: Keppra Mix with 100 mL NS, LR or D5W MEDICATION WASTE Product Size: 500 mg Product Wasted: ___ mg Acetaminoph 2019-0 No 100.4 F, M emoria en 3-03 Start l 15:57: date: [place] 00 10/08/18 9:57:00 [facility], Duration: 30 day, Stop date: 11/07/18 9:56:00 CDT Ondansetron 2018-0 No Notes: Memoria 3-03 MEDICATION l 15:57: WASTE Product Size: 4 mg Product Wasted: ___ mg Bisacodyl 2019-0 No 10 mg, 1 Edison anny - supp, l 15:57: Route: IA, Drug form: SUPP, Daily, Dosing Weight 95.455, kg, PRN Constipati on, Start date: 10/08/18 9:57:00 [facility], Duration: 30 day, Stop date: 11/07/18 9:56:00 CDT Zofran 2018-0 No 4 mg, Memoria 3-03 Route: l 15:09: IVP, Drug form: INJ, ONCE, Dosing Weight 95.455, kg, Priority: STAT, Start date: 10/08/18 9:09:00 [place], Stop date: 10/08/18 9:09:00 [place] Morphine 2019-0 No 4 mg, Memoria 3-03 Route: l 15:09: IVP, ONCE, [place] 00 Dosing Weight 95.455, kg, Priority: STAT, Start date: 10/08/18 9:09:00 [place], Stop date: 10/08/18 9:09:00 [place] Sodium 2019-0 No 1,000 mL, Memori a Chloride 3-03 Infuse l 0.9% 15:09: Over: 1 Carlos (Bolus) IV 00 hr, Route: IV, ONCE, Priority: STAT, Dosing Weight 95.455 kg, Start date: 10/08/18 9:09:00 [place], Stop date: 10/08/18 9:09:00 [place] Zofran 2019-0 No 4 mg, Memoria 3-03 Route: l 15:09: IVP, Drug Carlos form: INJ, ONCE, Dosing Weight 95.455, kg, Priority: STAT, Start date: 10/08/18 9:09:00 [place], Stop date: 10/08/18 9:09:00 [place] Morphine 2019-0 No 4 mg, Memoria 3-03 Route: l 15:09: IVP, ONCE, Carlos Dosing Weight 95.455, kg, Priority: STAT, Start date: 10/08/18 9:09:00 [place], Stop date: 10/08/18 9:09:00 [place] Sodium 2019-0 No 1,000 mL, Memori a Chloride 3-03 Infuse l 0.9% 15:09: Over: 1 [place] (Bolus) IV 00 hr, Route: IV, ONCE, Priority: STAT, Dosing Weight 95.455 kg, Start date: 10/08/18 9:09:00 [place], Stop date: 10/08/18 9:09:00 [place] Zofran 2019-0 No 4 mg, Memoria 3-03 Route: l 15:09: IVP, Drug [place] 00 form: INJ, ONCE, Dosing Weight 95.455, kg, Priority: STAT, Start date: 10/08/18 9:09:00 [place], Stop date: 10/08/18 9:09:00 [place] Morphine 2019-0 No 4 mg, Memoria 3-03 Route: l 15:09: IVP, ONCE, [place] 00 Dosing Weight 95.455, kg, Priority: STAT, Start date: 10/08/18 9:09:00 [place], Stop date: 10/08/18 9:09:00 [place] Sodium 2019-0 No 1,000 mL, Memori a Chloride 3-03 Infuse l 0.9% 15:09: Over: 1 [place] (Bolus) IV 00 hr, Route: IV, ONCE, Priority: STAT, Dosing Weight 95.455 kg, Start date: 10/08/18 9:09:00 [place], Stop date: 10/08/18 9:09:00 [place] Sulfamethox Sulfamethox Yes Gianna not Common azole-TMP azole-TMP Velez defined S pirit DS DS - [facility] Tramadol Tramadol Yes Gianna 1 tablet C ommon HCl HCl Velez as needed Spirit - [facility] Naproxen Naproxen Yes Gianna 1 tablet C ommon Velez with food Spirit or milk as - [facility] Vital Signs Vital Name Observation Time Observation Value Comments Source Systolic blood 2022-01-25 19:43:00 131 mm[Hg] [facility] Diastolic blood 2022-01-25 19:43:00 85 mm[Hg] [facility] Heart rate 2022-01-25 19:43:00 80 /min [facility] Body temperature 2022-01-25 19:43:00 35.94 [facility] Respiratory rate 2022-01-25 19:43:00 18 /min [facility] Body height 2022-01-25 19:43:00 172.7 cm [facility] Body weight 2022-01-25 19:43:00 94.802 kg [facility] BMI 2022-01-25 19:43:00 31.78 kg/m2 [facility] Heart Rate 2018-10-11 17:26:00 Tracy Gonzalez Temperature Oral (F) 2018-10-11 17:26:00 97.9 F [facility] [place] Respitory Rate 2018-10-11 17:26:00 Kathy Otero Systolic (mm Hg) 2018-10-11 17:26:00 Edison rial [place] Diastolic (mm Hg) 2018-10-11 17:26:00 Mem orial [place] Systolic (mm Hg) 2018-10-11 13:44:00 Edison rial [place] Diastolic (mm Hg) 2018-10-11 13:44:00 Mem orial [place] Respitory Rate 2018-10-11 13:44:00 Memori al [place] Heart Rate 2018-10-11 13:44:00 [facility] Temperature Oral (F) 2018-10-11 13:44:00 99.1 F [facility] Temperature Oral (F) 2018-10-11 10:47:00 97.9 F [facility] Heart Rate 2018-10-11 10:47:00 [facility] Respitory Rate 2018-10-11 10:47:00 [facility] Systolic (mm Hg) 2018-10-11 10:47:00 [facility] [place] [facility] Diastolic (mm Hg) 2018-10-11 10:47:00 [facility] [place] [facility] Weight 2018-10-08 21:12:00 [facility] Weight 2018-10-08 14:38:00 [facility] Height 2018-10-08 14:38:00 172.72 cm [facility] BMI Calculated 2018-10-08 14:38:00 [facility] Procedures Procedure Date / Time Performing Clinician Source Performed US RETROPERITONEAL 2022-03-16 15:37:56 Lidia Yancey [facility] POCT URINALYSIS AUTO 2022-01-25 19:47:[address] [facility] AUTHORIZATION FOR RELEASE 2021-11-10 05:01:00 Doctor Unassigned, [facility] Encounters Start End Encounter Admission Attending Care Care Encounter Source Date/Time Date/Time Type Type Clinicians Facility Department ID 2022-01-27 Outpatient Velez, STLMLC STLMLC [id number] Common 09:17:01 [facility] 2021-12-28 Outpatient Velez, STLMLC STLMLC [id number] Common 14:58:02 [facility] 2021-12-23 Outpatient Velez, STLMLC STLMLC [id number] Common 10:50:32 Gianna [facility] 2021-09-21 Outpatient VELEZ, [facility] [id number] [place] 08:39:13 [facility] 2021-09-07 Outpatient Velez, STLMLC STLMLC [id number] Common 10:55:02 Gianna [facility] 2021-09-02 Outpatient Velez, STLMLC STLMLC [id number] Common 14:16:27 Gianna 16012 [facility] 2021-09-02 Outpatient Velez, STLMLC STLMLC [id number] Common 14:04:31 Gianna 74775 [facility] 2021-09-02 Outpatient Velez, STLMLC STLMLC [id number] Common 13:55:58 Gianna [facility] 2021-09-02 Outpatient Velez, STLMLC STLMLC [id number] Common 13:16:30 Gianna 07439 [facility] 2021-09-02 Outpatient Velez, STLMLC STLMLC [id number] Common 13:09:28 Gianna 50777 [facility] 2021-09-02 Outpatient Velez, STLMLC STLMLC [id number] Common 13:08:55 Gianna 19241 [facility] 2021-09-02 Outpatient Velez, STLMLC STLMLC [id number] Common 12:53:51 Gianna 07218 [facility] 2021-09-02 Outpatient Velez, STLMLC STLMLC [id number] Common 12:45:22 Gianna [id number] [facility] 2021-09-02 Outpatient Velez, STLMLC STLMLC [id number] Common 12:36:15 Gianna 82957 [facility] 2021-09-02 Outpatient Velez, STLMLC STLMLC [id number] Common 12:19:27 Gianna 01591 [facility] 2021-09-02 Outpatient Velez, STLMLC STLMLC [id number] Common 12:07:47 Gianna [id number] [facility] 2021-09-02 Outpatient [facility]z, [facility] [id number] Common 12:07:23 Gianna 14459 [facility] 2021-09-02 Outpatient Velez, ST[facility]MLC [facility] [id number] Common 11:44:55 Gianna [id number] [facility] 2021-09-02 Out[facility] Velez, STLC [facility] [id number] Common 11:42:01 Gianna 32412 [facility] 2021-09-02 Outpatient Velez, STLMLC [facility] [id number] Common 11:39:14 Gianna 69945 [facility] 2021-09-02 [facility] [id number] Common 11:33:37 Gianna 42278 [facility] 2018-10-08 [facility] [id number] [facility] 09:57:00 2022-07-28 2022-07-28 Outpatient R CLAY [facility] [id number] Univers 10:00:00 10:00:00 PINA [id number] ity o f [facility] 2022-04-30 2022-04-30 Outpatient R YVETTE ANN [facility] [id number] Univers 09:30:00 09:30:00 YVETTE ANN [id number] [facility] 2022-04-29 2022-04-29 [facility] [id number] Univers 10:00:00 10:00:00 ALEXYS [id number] [facility] 2022-03-16 2022-03-16 Outpatient R BC [facility] [id number] Univers 10:05:27 23:59:00 LIDIA [facility] 2022-03-16 2022-03-16 [facility] [id number] Univers 09:06:20 23:59:00 Encounter Lidia LUNDY [id number] [facility] [id number] [facility] [id number] [place] [address] Branch 2022-03-16 2022-03-16 Outpatient R BC [facility] [id number] Univers 10:00:00 10:00:00 [facility] [id number] [facility] 2022-02-03 2022-02-03 Outpatient R FROST [facility] [id number] Univers 16:15:00 16:15:00 PATSY [facility] 2022-01-27 2022-01-27 ambulatory STLMLC STLMLC [id number] Common 00:00:00 00:00:00 [facility] 2022-01-25 2022-01-25 [facility] [id number] Univers 13:45:00 14:56:27 Visit Lidia LUNDY [id number] i ty [facility] [phone] [address] 2022-01-25 2022-01-25 [facility] [id number] Univers 13:45:00 14:56:27 LIDIA [facility] 2022-01-07 2022-01-07 ambulatory STLMLC STLMLC [id number] Common 00:00:00 00:00:00 [facility] 2021-12-28 2021-12-28 ambulatory STLMLC STLMLC [id number] Common 00:00:00 00:00:00 [facility] 2021-12-25 2021-12-25 ambulatory STLMLC STLMLC [id number] Common 00:00:00 00:00:00 [facility] 2021-11-12 2021-11-12 ambulatory STLMLC STLMLC [id number] Common 00:00:00 00:00:00 [facility] 2021-11-10 2021-11-10 Orders Doctor THACKER [id number] Univers 00:00:00 00:00:00 Only Unassigned, NIKO [id number] ity of [facility] [id number] Alli as [id number] [address] 2021-09-29 2021-09-29 ambulatory STLMLC STLMLC [id number] Common 00:00:00 00:00:00 [facility] 2021-09-23 2021-09-23 ambulatory STLMLC STLMLC [id number] Common 00:00:00 00:00:00 [facility] 2021-09-22 2021-09-22 ambulatory STLMLC STLMLC [id number] Common 00:00:00 00:00:00 [facility] 2021-09-22 2021-09-22 ambulatory STLMLC STLMLC [id number] Common 00:00:00 00:00:00 [facility] 2021-09-21 2021-09-21 ambulatory STLMLC STLMLC [id number] Common 00:00:00 00:00:00 [facility] 2021-09-17 2021-09-17 Telephone Nilda Serrano [facility] 1.2.840. [id number] [place] 00:00:00 00:00:00 Nilda Serrano MED [id number] 2 [id number] [id number] 2021-09-16 2021-09-16 Telephone VERONICA Velez [id number] [id number] [place] 00:00:00 00:00:[address] [id number] Health [id number] [id number] 2021-07-01 2021-07-01 ambulatory STLMLC STLMLC [id number] Common 00:00:00 00:00:00 [facility] 2021-06-30 2021-06-30 ambulatory STLMLC STLMLC [id number] Common 00:00:00 00:00:00 [facility] 2021-05-05 2021-05-05 Outpatient STLMLC STLMLC [id number] Common 00:00:00 00:00:00 [facility] 2021-02-23 2021-02-23 Outpatient STLMLC STLMLC [id number] Common 00:00:00 00:00:00 [facility] 2021-02-23 2021-02-23 Outpatient STLMLC STLMLC [id number] Common 00:00:00 00:00:00 [facility] 2021-01-26 2021-01-26 Outpatient STLMLC STLMLC [id number] Common 00:00:00 00:00:00 [facility] 2021-01-23 2021-01-23 Office [place], [facility] [id number] 08:50:29 10:03:02 Visit [facility] [id number] [place] [id number] [place] [id number] Medical [address] Office Building 2021-01-23 2021-01-23 Orders Doctor KEDAR [id number] 00:00:00 00:00:00 Only Unassigned, NIKO [id number] [place] [facility] [id number] [id number] 2021-01-15 2021-01-15 Outpatient STLMLC STLMLC [id number] Common 00:00:00 00:00:00 [facility] 2021-01-06 2021-01-06 Outpatient STLMLC STLMLC [id number] Common 00:00:00 00:00:00 [facility] 2020-11-25 2020-11-25 Outpatient STLMLC STLMLC [id number] Common 00:00:00 00:00:00 [facility] 2020-09-11 2020-09-11 Outpatient STLMLC STLMLC [id number] Common 00:00:00 00:00:00 [facility] 2020-09-11 2020-09-11 Outpatient STLMLC STLMLC [id number] Common 00:00:00 00:00:00 [facility] 2020-08-14 2020-08-14 Outpatient STLMLC STLMLC [id number] Common 00:00:00 00:00:00 [facility] 2020-07-16 2020-07-16 Outpatient STLMLC STLMLC [id number] Common 00:00:00 00:00:00 [facility] 2020-03-26 2020-03-26 [facility] [id number] Common 15:00:00 15:00:[address] [facility] 2020-03-24 2020-03-24 [facility] [id number] Common 08:34:00 08:34:[address] [facility] 2020-03-18 2020-03-18 [facility] [id number] Common 16:45:00 16:45:[address] [facility] 2020-03-18 2020-03-18 [facility] [id number] Common 15:30:00 15:30:[address] [facility] 2020-03-05 2020-03-05 [facility] [id number] Common 10:30:00 10:30:[address] [facility] 2019-04-04 2019-04-06 Phone nullFlavo MNA [id number] [facility] 17:21:53 04:59:59 Message r Neurosurger 05 l y [facility] 2019-04-04 2019-04-06 Phone nullFlavo MNA [id number] Memoria 17:21:53 04:59:59 Message r Neurosurger 05 l y [facility] 2019-04-04 2019-04-05 Outpatient MHMISCHER MHMISCHER [id number] 12:21:53 23:59:59 2018-12-21 2018-12-23 Phone nullFlavo MNA [id number] Memoria 15:05:32 04:59:59 Message r Neurosurger 04 l y [facility] 2018-12-21 2018-12-23 Phone nullFlavo MNA [id number] Memoria 15:05:32 04:59:59 Message r Neurosurger 04 l y [facility] 2018-12-21 2018-12-22 Outpatient MHMISCHER MHMISCHER [id number] 10:05:32 23:59:59 04 2018-12-08 2018-12-10 Phone nullFlavo MNA [id number] Memoria 18:27:20 04:59:59 Message r Neurosurger 03 l y [facility] 2018-12-08 2018-12-10 Phone nullFlavo MNA [id number] Memoria 18:27:20 04:59:59 Message r Neurosurger 03 l y [facility] 2018-12-08 2018-12-09 Outpatient MHMISCHER MHMISCHER [id number] 13:27:20 23:59:59 03 2018-12-07 2018-12-08 Outpatient nullFlavo MNA [id number] Memoria 16:15:00 04:59:59 r Neurosurger 01 l y [facility] 2018-12-07 2018-12-08 Outpatient nullFlavo MNA [id number] Memoria 16:15:00 04:59:59 r Neurosurger 01 l y [facility] 2018-12-07 2018-12-08 Outpt Diag nullFlavo [facility] [id number] Memoria 15:09:00 04:59:00 Services r Outpatient 01 Imaging [facility] 2018-12-07 2018-12-08 Outpt Diag nullFlavo [facility] [id number] Memoria 15:09:00 04:59:00 Services r Outpatient 01 l [facility] 2018-12-07 2018-12-07 Outpatient VISIT, MHMISCHER MISCHER [id number] 11:15:00 23:59:59 [facility] 01 [facility] 2018-12-07 2018-12-07 [facility] [id number] 10:09:00 23:59:00 Edis Mckeon 2018-12-07 2018-12-07 Outpatient MHIE MHIE [id number] Memoria 11:15:00 11:15:[address] [place] [address] 2018-10-31 2018-11-02 Phone nullFlavo MNA [id number] Memoria 17:52:00 04:59:59 Message r Neurosurger 02 l y [facility] 2018-10-31 2018-11-02 Phone nullFlavo MNA [id number] Memoria 17:52:00 04:59:59 Message r Neurosurger 02 l y [facility] 2018-10-31 2018-11-01 Outpatient MHMISCHER MHMISCHER [id number] 12:52:00 23:59:59 2018-10-27 2018-10-29 Phone nullFlavo MNA [id number] Memoria 14:49:00 04:59:59 Message r Neurosurger 01 l y [facility] 2018-10-27 2018-10-29 Phone nullFlavo MNA [id number] Memoria 14:49:00 04:59:59 Message r Neurosurger 01 l y [facility] 2018-10-27 2018-10-28 Outpatient MHMISCHER MHMISCHER [id number] 09:49:00 23:59:59 2018-10-26 2018-10-27 Outpatient nullFlavo MNA [id number] Memoria 17:15:00 04:59:59 r Neurosurger 00 l y [facility] 2018-10-26 2018-10-27 Outpatient nullFlavo MNA [id number] Memoria 17:15:00 04:59:59 r Neurosurger 00 l y [facility] 2018-10-26 2018-10-26 Outpatient VISIT, MHMISCHER MISCHER [id number] 12:15:00 23:59:59 TRAUMA 00 CLINIC 2018-10-26 2018-10-26 Outpatient MHIE MHIE [id number] Memoria 12:15:00 12:15:00 00 [facility] 2018-10-24 2018-10-25 Outpt Diag nullFlavo [facility] [id number] Memoria 13:26:00 04:59:00 Services r Outpatient 00 l Imaging [facility] 2018-10-24 2018-10-25 Outpt Diag nullFlavo [facility] [id number] Memoria 13:26:00 04:59:00 Services r Outpatient 00 l [facility] 2018-10-24 2018-10-24 Outpatient Suellen[facility] [id number] 08:26:00 23:59:00 Edis Estradaiji 00 2018-10-17 2018-10-19 Phone nullFlavo MNA [id number] Memoria 15:08:00 04:59:59 Message r Neurosurger 00 l y [facility] 2018-10-17 2018-10-19 Phone nullFlavo MNA [id number] Memoria 15:08:00 04:59:59 Message r Neurosurger 00 l y [facility] 2018-10-17 2018-10-18 Outpatient [place] [id number] 10:08:00 23:59:59 00 2018-10-08 2018-10-11 Inpatient nullFlavo [facility] [id number] Memoria 14:37:00 21:18:[address] 2018-10-08 2018-10-11 Inpatient nullFlavo [facility] [id number] Memoria 14:37:00 21:18:[address] 2018-10-08 2018-10-11 [facility] [id number] 08:37:00 15:18:00 Bryan Pisano Results Test Description [...] 3267) clear Lab Interpretation (test code = 47344-2) Abnormal [facility] URINALYSIS, VOBBEIILQS7972-03-38 19:47:00 Test Item Value Reference Range Interpretation [...] 3267) Lab Interpretation (test code = Abnormal 63554-6) [facility] 06:[facility]:0073[facility] IIZCW9154-64-03 06:11:0074[facility] RBCAI1254-52-01 06:11:000.93[facility]annCHE[facility] QTGLE0765-35-82 06:11:26859Pshiudji HermannCHEM GTBIM9431-13-27 06:11:0018[facility]annCHEM CICHC4209-08-65 06:11:008.9 [facility] ULXHT2836-85-06 06:11:003.9[facility]annCHEM PANEL 2018-10-11 06:11:78679Vrjcpvky HermannCHEM TMKKJ1032-71-44 06:11:0026[facility]annCHEM UFXUR3360-24-14 06:11:0011.9[facility]orial GgnhidzOQTCKRPBCY4077-11-02 06:11:009.0[facility] KcahpxiBLGUDBIOVT0652-87-64 06:11:63444Dgdovtcc [facility] QKLXLUDONM2915-79-35 06:11:008.7[facility]orial XmhskuiXFTOTMWNHH4017-75-92 06:11:00 13.6Memorial JtuhxhwPOCAWWMMBC1668-18-94 06:11:0033.2[facility]OLOG[facility] 2018-10-11 06:11:00 Test Item Value Reference Range Interpretation Comments MCH (test code = MCH) 29.6 pg 27.0-31.0 [facility] HpkieauSELUZKCHDZ8672-66-38 06:11:0038.3[facility]ann[facility]MATOLOGY 2018-10-11 06:11:004.30[facility] YyuhppdLXFSIGHPCV9728-92-58 06:11:0089.1[facility]orial PbehjhuVFSUYLOIIJ2823-53-83 06:11:0012.7[facility] DdbihjmHUAUDCBPOG6761-82-91 06:11:002.9[facility] QpqlkkzMKZEYAAISA7541-19-50 06:11:0028.7[facility] RNNSHFHYZB9827-60-17 06:11:009.5[facility]orial YsiztiaGLBQFBECCY9939-81-28 06:11:00 58.7Memorial ColatgkLZSPVRXQPH0835-48-48 06:11:002.6[facility]annHEMATOLOGY 2018-10-11 06:11:000.3[facility]orial LmvhwwqBLFLTRALZR2502-24-50 06:11:000.2[facility]orial XfkmdpwKGKTJMHFGE5342-27-16 06:11:005.3[facility]orial GsxgomgZZRZOGSIOU5320-60-71 06:11:000.9[facility]annCHEM MQGQV7859-73-34 06:11:00 Test Item Value Reference Range Interpretation Comments BUN (test code = BUN) 18 7-22 [facility] HermannCHEM MYMSU3665-85-05 06:11:00 Test Item Value Reference Range Interpretation Comments Calcium Lvl (test code = Calcium Lvl) 8.9 8.5-10.5 [facility] HermannCHEM TEVZP5993-15-24 06:11:00 Test Item Value Reference Range Interpretation Comments Potassium Lvl (test code = Potassium 3.9 3.5-5.1 Lvl) [facility] MFIWL3592-92-50 06:11:00 Test Item Value Reference Range Interpretation Comments Chloride Lvl (test code = Chloride Lvl) 106 95-109 [facility] HermannCHEM XIKJB0308-21-41 06:11:00 Test Item Value Reference Range Interpretation Comments CO2 (test code = CO2) 26 24-32 [facility] QBQRV3615-93-56 06:11:00 Test Item Value Reference Range Interpretation Comments AGAP (test code = AGAP) 11.9 10.0-20.0 [facility]cfyntwKOKBZBXQBN4936-96-18 06:11:00 Test Item Value Reference Range Interpretation Comments WBC (test code = WBC) 9.0 3.7-10.4 [facility]leGkcmxzxNPSENJQVCG0397-66-57 06:11:00 Test Item Value Reference Range Interpretation Comments Platelet (test code = Platelet) 319 545-450 [facility]leRrklawdVFIECNPVRK6033-88-18 06:11:00 Test Item Value Reference Range Interpretation Comments MPV (test code = MPV) 8.7 7.4-10.4 [facility]leLqcacnkSIQEUYKZHX2399-75-64 06:11:00 Test Item Value Reference Range Interpretation Comments RDW (test code = RDW) 13.6 11.5-14.5 [facility]leMfuylysPCZMQJXNUT3697-36-59 06:11:00 Test Item Value Reference Range Interpretation Comments MCHC (test code = MCHC) 33.2 32.0-36.0 [facility]leOlxemetFMFSWTYDMH8089-82-78 06:11:00 Test Item Value Reference Range Interpretation Comments MCH (test code = MCH) 29.6 pg 27.0-31.0 [facility]leNjvfpgxPTFSDUHJOF6787-23-64 06:11:00 Test Item Value Reference Range Interpretation Comments Hct (test code = Hct) 38.3 36.0-48.0 [facility]lePqdjiiuHXNIQSMCUE1448-35-38 06:11:00 Test Item Value Reference Range Interpretation Comments RBC (test code = RBC) 4.30 4.20-5.40 [facility]leKzxquacWQFMXVAGPN1616-75-74 06:11:00 Test Item Value Reference Range Interpretation Comments MCV (test code = MCV) 89.1 80.0-98.0 [facility] AzleUzvitpbRIZVSXWFJT0183-76-76 06:11:00 Test Item Value Reference Range Interpretation Comments Hgb (test code = Hgb) 12.7 12.0-16.0 [facility] AzleLbguojiCRZSEZKXTL4856-39-07 06:11:00 Test Item Value Reference Range Interpretation Comments Eosinophils (test code = 2.9 See_Comment [A utomated message] The Eosinophils) system which ge nerated this result tra nsmitted reference range : <=4.0. The reference r kunal was not used to int erpret this result as normal/abnormal . [facility]lePxshlnvFVXZAHAZEI5371-57-50 06:11:00 Test Item Value Reference Range Interpretation Comments Lymphocytes (test code = Lymphocytes) 28.7 20.0-40.0 [facility] AzleRuexesmNJQPKWARHT4606-83-93 06:11:00 Test Item Value Reference Range Interpretation Comments Monocytes (test code = Monocytes) 9.5 2.0-12.0 [facility]leEoeeomfMHIYSIKLFU1624-99-82 06:11:00 Test Item Value Reference Range Interpretation Comments Segs (test code = Segs) 58.7 45.0-75.0 [facility]leNfhfwymQOMQWVKSRD9961-22-99 06:11:00 Test Item Value Reference Range Interpretation Comments Lymphocytes # (test code = Lymphocytes 2.6 1.0-5.5 #) [facility]leXwcntzbDKFJUITCKD9773-24-75 06:11:00 Test Item Value Reference Range Interpretation Comments Eosinophils # (test code 0.3 See_Comment [A utomated message] The = Eosinophils #) system [facility] generated this result tra nsmitted reference range : <=0.5. The reference r kunal was not used to int erpret this result as normal/abnormal . [facility] AzleWhfovuaDJGRDHQMKH8341-62-06 06:11:00 Test Item Value Reference Range Interpretation Comments Basophils (test code = 0.2 See_Comment [Aut omated message] The Basophils) system which ge nerated this result tra nsmitted reference range : <=1.0. The reference r kunal was not used to int erpret this result as normal/abnormal . [facility] AzleDyoxdxiRXALWRRGTA5590-66-86 06:11:00 Test Item Value Reference Range Interpretation Comments Neutrophils # (test code = Neutrophils 5.3 1.5-8.1 #) [facility] AzleDrwhlawLKLZIZZYLK2702-60-22 06:11:00 Test Item Value Reference Range Interpretation Comments Monocytes # (test code 0.9 See_Comment [Aut omated message] The = Monocytes #) system which generated this result tra nsmitted reference range : <=0.8. The reference r kunal was not used to int erpret this result as normal/abnormal . [facility] XAUTZ5945-62-29 06:11:00 Test Item Value Reference Range Interpretation Comments eGFR (test code = eGFR) 73 [facility]2019-03-06 06:11:00 Test Item Value Reference Range Interpretation Comments Glucose Lvl (test code = Glucose Lvl) 74 70-99 [facility]2019-03-06 06:11:00 Test Item Value Reference Range Interpretation Comments Creatinine Lvl (test code = Creatinine 0.93 0.50-1.40 Lvl) [facility] NKGKR7677-73-87 06:11:00 Test Item Value Reference Range Interpretation Comments Sodium Lvl (test code = Sodium Lvl) 140 135-145 [facility]stip[facility]OKOKZZMEG0946-22-65 06:11:009.0[facility] 2018-10-11 06:11:72001Poidmndx CuzwqjsIKEPIVQKEC4658-61-96 06:11:008.7[facility] PqgihjyYJDZWBFZHP1030-96-72 06:11:0013.6[facility] OsskntrLXZGVUSIJL7844-44-32 06:11:0033.2[facility] OjqxbwoUVHUYXWEEW2465-87-73 06:11:00 Test Item Value Reference Range Interpretation Comments MCH (test code = MCH) 29.6 pg 27.0-31.0 [facility] QxgapfgQFAIDOMCTK6411-63-44 06:11:0038.3[facility]annHEMATOLOGY 2018-10-11 06:11:004.30[facility] AvujrwqVZCMNCUMUQ7172-40-19 06:11:0089.1[facility] YeiercqJWVDETINNK5761-47-52 06:11:0012.7[facility] CqlbnbyILBWBYZOUU5780-98-82 06:11:002.9[facility] UtlaktpXZONLHELCV2526-90-70 06:11:0028.7[facility] ARKRSAYYAU6462-40-08 06:11:009.5[facility] ZoszsouPNOQGSXOUL5632-43-42 06:11:00 58.7[facility] CeuwjihXVNDTYFZJQ2805-69-50 06:11:002.6[facility] HermannHEMATOLOGY 2018-10-11 06:11:000.3[facility] HnilkrvOJOEKPWOQN3863-65-68 06:11:000.2[facility] NdyuxyuVCXXAOJYJC2529-39-77 06:11:005.3[facility] YlmtbcgREAFUCDYKF2845-60-55 06:11:000.9[facility] HermannCHEM IEPKZ8736-50-52 06:11:0073[facility] HermannCHEM ZQHNX6749-86-18 06:11:0074[facility] HermannCHEM EBXHR1214-54-22 06:11:000.93 [facility]annCHEM VVBDX8181-01-71 06:11:61842Qbwnohfi HermannCHEM PANEL 2018-10-11 06:11:0018[facility]annCHEM ZYGFZ5913-25-69 06:11:008.9[facility]annCHEM QNRQM9939-68-17 06:11:003.9[facility]annCHEM SGRWS7129-31-46 06:11:61761Bnsizbmt HermannCHEM LHXPC1760-52-90 06:11:0026[facility]annCHEM VNNJE4349-56-77 06:11:0011.9[facility]annCHEM OMQEZ3274-42-60 06:24:002.0 [facility]annCHE[facility] LEVQP6465-43-25 06:24:0068[facility]annCHEM PANEL 2018-10-10 06:24:003.9[facility]annCHEM WUJQF7914-85-42 06:24:00224Yhsiyouk HermannCHEM TZMUR5673-95-50 06:24:88329Zbgyrcvx HermannCHEM NHNDY6269-64-94 06:24:001.00[facility]annCHEM DSGTX5374-72-27 06:24:0090[facility]annCHEM ZDWKN0285-49-70 06:24:0021[facility]annCHEM MWNOX7135-14-94 06:24:0028 [facility]CHE[facility] ADQCJ2463-36-44 06:24:008.6[facility]annCHEM PANEL 2018-10-10 06:24:007.9[facility]annCHEM GAOSP9787-85-76 06:24:003.9[facility] PhedwddUGFMCDVVZH1912-23-73 06:24:000.1[facility] NggbzamDDJZUIFJEM7677-30-16 06:24:000.2[facility] PrdbuqeCSDMNOZUZJ1928-15-62 06:24:002.0[facility] PKBLOBAGLA6707-94-92 06:24:002.1[facility] ThludseSNGGMRGHII3190-85-19 06:24:000.8 [facility] PpxjairKXVKZAKCZL8227-40-11 06:24:000.8[facility] 2018-[facility]10 06:24:005.4[facility] JodpyxkYXNDMWLYVF2935-30-73 06:24:0024.5[facility] XvaqkbsKPNNSKZCCP0822-32-36 06:24:0063.8[facility] VnasowaDDMNGHOHOJ3664-92-51 06:24:008.9[facility] PmbbtptJFIGPFUIOK7687-63-59 06:24:89707Npetrket [place] ROZQXYGFVL4545-48-25 06:24:008.2[facility] ZexyieqBKUMKQBIQU1757-75-86 06:24:00 12.3[facility] GwcupchKQRZERGXXL8618-31-58 06:24:004.13[facility]ann[facility]OLOGY 2018-10-10 06:24:008.4[facility] KxiybmeBOJIYCXPVQ5412-05-33 06:24:0088.9[facility] FvqppciSRLZOXYVHL1075-29-43 06:24:00 Test Item Value Reference Range Interpretation Comments MCH (test code = MCH) 29.9 pg 27.0-31.0 [facility] ZbpbgzfXNSCQODQXK3000-86-95 06:24:0036.7[facility]annHEMATOLOGY 2018-10-10 06:24:0013.6[facility] MejygrtLSLZILPELE5301-41-13 06:24:0033.6[facility] HermannPARATHYROID TKKLEZJ4963-55-08 06:24:001.14[facility] HermannPARATHYROID DKBAAEB7031-72-69 06:24:001.15[facility]annCHEM WGMKP7118-17-91 06:24:00 Test Item Value Reference Range Interpretation Comments Magnesium Lvl (test code = Magnesium 2.0 1.8-2.4 Lvl) [facility]2019-03-05 06:24:00 Test Item Value Reference Range Interpretation Comments eGFR (test code = eGFR) 68 [facility]2019-03-05 06:24:00 Test Item Value Reference Range Interpretation Comments Potassium Lvl (test code = Potassium 3.9 3.5-5.1 Lvl) [facility]2019-03-05 06:24:00 Test Item Value Reference Range Interpretation Comments Chloride Lvl (test code = Chloride Lvl) 112 95-109 [facility]2019-03-05 06:24:00 Test Item Value Reference Range Interpretation Comments Sodium Lvl (test code = Sodium Lvl) 144 135-145 [facility]2019-03-05 06:24:00 Test Item Value Reference Range Interpretation Comments Creatinine Lvl (test code = Creatinine 1.00 0.50-1.40 Lvl) [facility]2019-03-05 06:24:00 Test Item Value Reference Range Interpretation Comments Glucose Lvl (test code = Glucose Lvl) 90 70-99 [facility]2019-03-05 06:24:00 Test Item Value Reference Range Interpretation Comments BUN (test code = BUN) 21 7-22 [facility]2019-03-05 06:24:00 Test Item Value Reference Range Interpretation Comments CO2 (test code = CO2) 28 24-32 [facility]2019-03-05 06:24:00 Test Item Value Reference Range Interpretation Comments Calcium Lvl (test code = Calcium Lvl) 8.6 8.5-10.5 [facility]2019-03-05 06:24:00 Test Item Value Reference Range Interpretation Comments AGAP (test code = AGAP) 7.9 10.0-20.0 [facility]2019-03-05 06:24:00 Test Item Value Reference Range Interpretation Comments Phosphorus (test code = Phosphorus) 3.9 2.5-4.5 [facility]BOS[facility]U9141[facility] 06:24:00 Test Item Value Reference Range Interpretation Comments Basophils # (test code 0.1 See_Comment [Aut omated message] The = Basophils #) system which generated this result tra nsmitted reference range : <=0.2. The reference r kunal was not used to int erpret this result as normal/abnormal . [facility]LqxwrqiUTOOUYIAXO4316-74-25 06:24:00 Test Item Value Reference Range Interpretation Comments Eosinophils # (test code 0.2 See_Comment [A utomated message] The = Eosinophils #) system whic h generated this result tra nsmitted reference range : <=0.5. The reference r kunal was not used to int erpret this result as normal/abnormal . [facility]leCgqtlttGGFRZXXAYO4565-88-79 06:24:00 Test Item Value Reference Range Interpretation Comments Eosinophils (test code = 2.0 See_Comment [A utomated message] The Eosinophils) system which ge nerated this result tra nsmitted reference range : <=4.0. The reference r kunal was not used to int erpret this result as normal/abnormal . [facility]leKdqtjusFPXNGDTYYW3019-63-88 06:24:00 Test Item Value Reference Range Interpretation Comments Lymphocytes # (test code = Lymphocytes 2.1 1.0-5.5 #) [facility]leAomhqbaQXXGNBSRZF7660-72-88 06:24:00 Test Item Value Reference Range Interpretation Comments Monocytes # (test code 0.8 See_Comment [Aut omated message] The = Monocytes #) system which generated this result tra nsmitted reference range : <=0.8. The reference r kunal was not used to int erpret this result as normal/abnormal . [facility]leTfiaxjaYXLIZRZTOW8160-28-86 06:24:00 Test Item Value Reference Range Interpretation Comments Basophils (test code = 0.8 See_Comment [Aut omated message] The Basophils) system which ge nerated this result tra nsmitted reference range : <=1.0. The reference r kunal was not used to int erpret this result as normal/abnormal . [facility] AzleZfpmjwzLREJFENVFG4287-96-93 06:24:00 Test Item Value Reference Range Interpretation Comments Neutrophils # (test code = Neutrophils 5.4 1.5-8.1 #) [facility] AzleYdzdwjiNNZRBFMGSW7270-69-65 06:24:00 Test Item Value Reference Range Interpretation Comments Lymphocytes (test code = Lymphocytes) 24.5 20.0-40.0 [facility] AzleZandnscTELMXFQIMI0437-51-53 06:24:00 Test Item Value Reference Range Interpretation Comments Segs (test code = Segs) 63.8 45.0-75.0 [facility]GflmlcnQVPNAJZXOX7303-40-17 06:24:00 Test Item Value Reference Range Interpretation Comments Monocytes (test code = Monocytes) 8.9 2.0-12.0 [facility]ombSmxqlqbURIUIFNCXU6169-38-66 06:24:00 Test Item Value Reference Range Interpretation Comments Platelet (test code = Platelet) 262 133-450 [facility]ombFypucbkQHNPVCEJGZ6917-51-33 06:24:00 Test Item Value Reference Range Interpretation Comments MPV (test code = MPV) 8.2 7.4-10.4 [facility]ombThegpmnVBYOEEYEJQ0320-75-74 06:24:00 Test Item Value Reference Range Interpretation Comments Hgb (test code = Hgb) 12.3 12.0-16.0 [facility] AzleGstdziiIRRHMVGBKV2360-70-43 06:24:00 Test Item Value Reference Range Interpretation Comments RBC (test code = RBC) 4.13 4.20-5.40 [facility] AzleEffpecdLKFSLSWZIT2096-46-71 06:24:00 Test Item Value Reference Range Interpretation Comments WBC (test code = WBC) 8.4 3.7-10.4 [facility]ombJudnodvMYKUBWAKAE8225-88-60 06:24:00 Test Item Value Reference Range Interpretation Comments MCV (test code = MCV) 88.9 80.0-98.0 [facility] CenterHxwdvyjUIKLOOGYJW6797-97-56 06:24:00 Test Item Value Reference Range Interpretation Comments MCH (test code = MCH) 29.9 pg 27.0-31.0 [facility]ombIwpfaqkNEAPVWSADB9748-80-54 06:24:00 Test Item Value Reference Range Interpretation Comments Hct (test code = Hct) 36.7 36.0-48.0 [facility] CenterIofiossHDUEJMRKTT4997-12-86 06:24:00 Test Item Value Reference Range Interpretation Comments RDW (test code = RDW) 13.6 11.5-14.5 [facility]ombXeukbetJSMIXIUFWK0908-48-27 06:24:00 Test Item Value Reference Range Interpretation Comments MCHC (test code = MCHC) 33.6 32.0-36.0 [facility] CenterPARATHYROID ISDZJVR9356-92-78 06:24:00 Test Item Value Reference Range Interpretation Comments Ca Norm WB (test code = Ca Norm WB) 1.14 1.05-1.25 [facility] CenterPARATHYROID WVSSRUU3273-86-28 06:24:00 Test Item Value Reference Range Interpretation Comments Ca Ion WB (test code = Ca Ion WB) 1.15 1.05-1.25 [facility]CHE[facility] CFPEO9589-02-14 06:24:002.0[facility]annCHEM PANEL 2018-10-10 06:24:0068[facility]annCHEM ZZFPR1312-21-30 06:24:003.9[facility]annCHEM PDEJX6075-12-68 06:24:69881Abwerjwj HermannCHEM NVDDM9730-06-82 06:24:39686Gtulfvyo HermannCHEM JVMPE7022-05-91 06:24:001.00[facility]annCHEM HSIIK6971-80-85 06:24:0090[facility]annCHEM BNPJA7751-28-13 06:24:0021 [facility]annCHE[facility] HGPTE1148-66-34 06:24:0028[facility]annCHEM PANEL 2018-10-10 06:24:008.6[facility]annCHEM DSLSS6570-18-69 06:24:007.9[facility]annCHEM BNBBV7165-86-97 06:24:003.9[facility] BgbcpbgGYKJFZVSXL4087-53-28 06:24:000.1[facility] ChnpqamUBYCRMUFTR1018-20-59 06:24:000.2[facility] LBOHZPBFRI0641-82-78 06:24:002.0[facility] TfnmmozHOYMYIEWSB3951-12-84 06:24:002.1 [facility] UlpnvxiQGZVFFKPFV7836-06-47 06:24:000.8[facility]annHEMATOLOGY 2018-10-10 06:24:000.8[facility] GgnmrysDBXCPFHKRR8469-22-75 06:24:005.4[facility] BdkavqbCZWQMXOJIC7259-53-40 06:24:0024.5[facility] CxmiqgkXVKIIRIKNH0980-57-65 06:24:0063.8[facility] XgquduyFVKJYNDLAO7519-04-57 06:24:008.9[facility] MXZLDPNSEW8610-79-97 06:24:98613Itdfizgd HzfilqiIAEIIRHWEU7048-48-86 06:24:008.2 [facility] ZvwngvfDEEZGVZVJR7792-46-51 06:24:0012.3[facility]annHEMATOLOGY 2018-10-10 06:24:004.13[facility] YtsdgrfMTPUPTEUQA1046-20-48 06:24:008.4[facility] LhcyqjxSRRYAEJSUD9181-47-23 06:24:0088.9[facility] YxgkztlNVOQHLHOUY6107-58-39 06:24:00 Test Item Value Reference Range Interpretation Comments MCH (test code = MCH) 29.9 pg 27.0-31.0 [facility] DpiidsuSVTZJPWSEL0247-69-55 06:24:0036.7[facility]annHEMATOLOGY 2018-10-10 06:24:0013.6[facility] PjbuxhgFKYVNROUXR6608-60-98 06:24:0033.6[facility] HermannPARATHYROID UHMYEOM7543-64-25 06:24:001.14[facility]annPARATHYROID GPBWTAD2316-35-65 06:24:001.15[facility]annCHEM ABDWV4349-68-47 07:49:003.2 [facility]annCHEM SEUDF0573-54-28 07:49:001.9[facility]annCHEM PANEL 2018-10-09 07:49:0081[facility]annCHEM FDUWH9968-88-86 07:49:0010.9[facility]annCHEM YLQMI1314-07-81 07:49:008.5[facility]annCHEM EXBKY8663-20-85 07:49:003.9[facility]annCHEM HLITP7443-75-55 07:49:85674Efmrxcqr HermannCHEM FLPPM7724-57-49 07:49:35507Sgikqcku HermannCHEM VZQWE8064-67-77 07:49:000.96 [facility]annCHEM PUPIS4201-45-84 07:49:0017[facility]annCHEM PANEL 2018-10-09 07:49:88842Fujwxhtp HermannCHEM VEYHU2698-87-56 07:49:0024[facility] MnwieuaSVKXKZCMSZ7878-43-94 07:49:0086.1[facility] RanmkxzALQZXJOVRB9306-43-83 07:49:000.4[facility] ObjbuueACRPCBIYBA3646-49-16 07:49:0012.7[facility] ZELLZUVCCK4156-34-56 07:49:006.3[facility] SdgrnoePSGAWSHUXK2580-02-63 07:49:007.2 [facility] QbmibcsPROIUVBZYY3446-32-59 07:49:000.9[facility]annHEMATOLOGY 2018-10-09 07:49:000.1[facility] HkgkyqbSREGUBBIHV1389-66-94 07:49:001.1[facility] OxsfqnzZPDEAMQCDL9931-40-79 07:49:008.3[facility] VhsaejtHDKXPJDGNH2091-62-51 07:49:0033.3[facility] MmafdsaOKHPFNLJWR7774-67-61 07:49:0013.5[facility] LVIKZEMHXS2156-67-31 07:49:54878Ybgrznsu CgmjpdqVPUQXCSLHJ1038-19-66 07:49:00 12.8[facility] EplesajLODUAZFDNR4077-27-11 07:49:0038.4[facility]annHEMATOLOGY 2018-10-09 07:49:0088.1[facility] LdeevrzQKLTWTRGRO8702-34-75 07:49:00 Test Item Value Reference Range Interpretation Comments MCH (test code = MCH) 29.4 pg 27.0-31.0 [facility] VlmrhuxSCDJRECAGF5883-39-14 07:49:0014.7[facility]annHEMATOLOGY 2018-10-09 07:49:004.36[facility] HermannPARATHYROID BZEZTOS1637-29-08 07:49:00 1.15[facility] HermannPARATHYROID JFVTQCQ8508-84-53 07:49:001.16[facility] CHEM GXTNG4629-81-30 07:49:00 Test Item Value Reference Range Interpretation Comments Phosphorus (test code = Phosphorus) 3.2 2.5-4.5 [facility]annCHEM OYOIA9851-24-85 07:49:00 Test Item Value Reference Range Interpretation Comments Magnesium Lvl (test code = Magnesium 1.9 1.8-2.4 Lvl) [facility]2019-03-04 07:49:00 Test Item Value Reference Range Interpretation Comments eGFR (test code = eGFR) 81 [facility]2019-03-04 07:49:00 Test Item Value Reference Range Interpretation Comments AGAP (test code = AGAP) 10.9 10.0-20.0 [place] 907019-03-04 07:49:00 Test Item Value Reference Range Interpretation Comments Calcium Lvl (test code = Calcium Lvl) 8.5 8.5-10.5 [facility]2019-03-04 07:49:00 Test Item Value Reference Range Interpretation Comments Potassium Lvl (test code = Potassium 3.9 3.5-5.1 Lvl) [facility]2019-03-04 07:49:00 Test Item Value Reference Range Interpretation Comments Sodium Lvl (test code = Sodium Lvl) 142 135-145 [facility]2019-03-04 07:49:00 Test Item Value Reference Range Interpretation Comments Chloride Lvl (test code = Chloride Lvl) 111 95-109 [facility]2019-03-04 07:49:00 Test Item Value Reference Range Interpretation Comments Creatinine Lvl (test code = Creatinine 0.96 0.50-1.40 Lvl) [facility]2019-03-04 07:49:00 Test Item Value Reference Range Interpretation Comments BUN (test code = BUN) 17 7-22 [facility]2019-03-04 07:49:00 Test Item Value Reference Range Interpretation Comments Glucose Lvl (test code = Glucose Lvl) 126 70-99 [facility]2019-03-04 07:49:00 Test Item Value Reference Range Interpretation Comments CO2 (test code = CO2) 24 24-32 [facility]leHffjmyrURGTTIFMGD2734-54-56 07:49:00 Test Item Value Reference Range Interpretation Comments Segs (test code = Segs) 86.1 45.0-75.0 [facility] AzleVsherfzDSHXEXHYXQ7075-67-71 07:49:00 Test Item Value Reference Range Interpretation Comments Basophils (test code = 0.4 See_Comment [Aut omated message] The Basophils) system which ge nerated this result tra nsmitted reference range : <=1.0. The reference r kunal was not used to int erpret this result as normal/abnormal . [facility] AzleDrqfruyGUTRJTLFJD6446-98-99 07:49:00 Test Item Value Reference Range Interpretation Comments Neutrophils # (test code = Neutrophils 12.7 1.5-8.1 #) [facility] AzleCoreemeEAAJYCSLVA8307-34-10 07:49:00 Test Item Value Reference Range Interpretation Comments Lymphocytes (test code = Lymphocytes) 6.3 20.0-40.0 [facility] AzleAwjjyhoGIBLITVKNX0309-65-12 07:49:00 Test Item Value Reference Range Interpretation Comments Monocytes (test code = Monocytes) 7.2 2.0-12.0 [facility] AzleAahsugjFZPJZWARIF7239-45-65 07:49:00 Test Item Value Reference Range Interpretation Comments Lymphocytes # (test code = Lymphocytes 0.9 1.0-5.5 #) [facility] AzleGioefmhAXUAXRNFAC2183-91-11 07:49:00 Test Item Value Reference Range Interpretation Comments Basophils # (test code 0.1 See_Comment [Aut omated message] The = Basophils #) system which generated this result tra nsmitted reference range : <=0.2. The reference r kunal was not used to int erpret this result as normal/abnormal . [facility] AzleIbajryiVIGCDZDFFI4149-12-32 07:49:00 Test Item Value Reference Range Interpretation Comments Monocytes # (test code 1.1 See_Comment [Aut omated message] The = Monocytes #) system which generated this result tra nsmitted reference range : <=0.8. The reference r kunal was not used to int erpret this result as normal/abnormal . [facility] AzleLrkfhccTAQJSMMVBX7047-80-31 07:49:00 Test Item Value Reference Range Interpretation Comments MPV (test code = MPV) 8.3 7.4-10.4 [facility] AzleFaczolhIKTAIKSESW7313-91-64 07:49:00 Test Item Value Reference Range Interpretation Comments MCHC (test code = MCHC) 33.3 32.0-36.0 [facility] AzleTmvjiaqBRLWKFMNDD9593-40-71 07:49:00 Test Item Value Reference Range Interpretation Comments RDW (test code = RDW) 13.5 11.5-14.5 [facility] AzlePmijufeSMAADIXPWU6634-54-44 07:49:00 Test Item Value Reference Range Interpretation Comments Platelet (test code = Platelet) 330 133450 [facility] CenterHnvgobaMUMKYKDQMM2793-65-13 07:49:00 Test Item Value Reference Range Interpretation Comments Hgb (test code = Hgb) 12.8 12.0-16.0 [facility] CenterDxljhfkHCOUXBKEPO8470-82-30 07:49:00 Test Item Value Reference Range Interpretation Comments Hct (test code = Hct) 38.4 36.0-48.0 [facility]StkjkkqSBOIPHPOZM9669-75-03 07:49:00 Test Item Value Reference Range Interpretation Comments MCV (test code = MCV) 88.1 80.0-98.0 [facility]OuzjisoLTMCZOKLFP7476-62-23 07:49:00 Test Item Value Reference Range Interpretation Comments MCH (test code = MCH) 29.4 pg 27.0-31.0 [facility] CenterMvmvverOAPUZBBDBS3483-66-41 07:49:00 Test Item Value Reference Range Interpretation Comments WBC (test code = WBC) 14.7 3.7-10.4 [facility]ombFejcmlrMERJGWXNKK0172-94-00 07:49:00 Test Item Value Reference Range Interpretation Comments RBC (test code = RBC) 4.36 4.20-5.40 [facility] HospitalannPARATHYROID DJCDQLJ2507-51-54 07:49:00 Test Item Value Reference Range Interpretation Comments Ca Ion WB (test code = Ca Ion WB) 1.15 1.05-1.25 [facility] HospitalannPARATHYROID QVQLPMB8499-68-07 07:49:00 Test Item Value Reference Range Interpretation Comments Ca Norm WB (test code = Ca Norm WB) 1.16 1.05-1.25 [facility]annCHE[facility] SDZVP9214-60-48 07:49:003.2[facility]annCHEM PANEL 2018-10-09 07:49:001.9[facility] HermannCHEM JSJXA6784-52-47 07:49:0081[facility]annCHEM BZKUD7120-29-07 07:49:0010.9[facility]annCHEM UNSVI4654-81-09 07:49:008.5[facility]annCHEM NLGKP1857-27-06 07:49:003.9[facility]annCHEM DVYYB9523-52-16 07:49:53849Jjiiefar HermannCHEM SBOZO8715-76-58 07:49:87834 [facility]annCHEM ZPIIE2123-82-76 07:49:000.96[facility]annCHEM PANEL 2018-10-09 07:49:0017[facility] HermannCHEM PUIYE2928-16-06 07:49:54831Cfzlabln HermannCHEM LIQCX7461-59-30 07:49:0024[facility] NzethecJUDWANXTMA9857-53-84 07:49:0086.1[facility] JbtybkyQOAYKRRIFH3028-95-07 07:49:000.4[facility] [place] TBWEMJIZQM0582-17-21 07:49:0012.7[facility] KosghddDMELLEIDZN9989-89-09 07:49:00 6.3[facility] MmtvljnMYWPUDDZCX1806-69-35 07:49:007.2[facility]annHEMATOLOGY 2018-10-09 07:49:000.9[facility] RofleluBIWDGMYXRY1770-03-04 07:49:000.1[facility] CzrqywbGUCAEQFTKU7027-34-40 07:49:001.1[facility] WlitmbtJPUUZRKCYR5803-25-68 07:49:008.3[facility] HznvarsBENMZZTQJW2209-52-16 07:49:0033.3[facility] CWNEUOJEPO0775-41-53 07:49:0013.5[facility] TuoykskUEDOOAKWDT9778-39-79 07:49:00 330[facility] LlctnvhQOEXOVNWMY0391-93-47 07:49:0012.8[facility]annHEMATOLOGY 2018-10-09 07:49:0038.4[facility] IqamrmkZRALXCIRJB9451-88-52 07:49:0088.1[facility] LlpwjldKWTSHQBYMS2424-06-95 07:49:00 Test Item Value Reference Range Interpretation Comments MCH (test code = MCH) 29.4 pg 27.0-31.0 [facility] MscpdzrATNLNJKXTU9571-35-12 07:49:0014.7[facility]annHEMATOLOGY 2018-10-09 07:49:004.36[facility] HermannPARATHYROID CQFJYTT1784-39-73 07:49:00 1.15[facility] HermannPARATHYROID SXMCMJQ1120-58-60 07:49:001.16[facility] [place] CARDIAC OXSDRBJ0137-17-13 18:27:00<0.02[facility] HermannCARDIAC ENZYMES 2018-10-08 18:27:00 Test Item Value Reference Range Interpretation Comments Troponin-I (test code no gt See_Comment [Auto mated message] The = Troponin-I) system which g enerated this result transmit matthew reference range : <=0.40. The reference r kunal was not used to interpr et this result as carmen l/abnormal. [facility]annCARDIAC CPQDKBF6979-01-72 18:27:00<0.02[facility]annURINE AND SBPYM2268-17-11 15:59:00Negative *NA*(10/08/18 9:59 AM)[facility] AND XDWWX3462-20-87 15:59:00Negative (10/08/18 9:59 AM)[facility] JDZUY0428-79-32 15:59:00Negative *NA*(10/08/18 9:59 AM)[facility] AND QPJCG8958-16-20 15:59:00 Test Item Value Reference Range Interpretation Comments UA Spec Grav (test code = UA Spec 1.010 1 Grav) [facility] PNMFT2285-20-31 15:59:00 Test Item Value Reference Range Interpretation Comments UA pH (test code = UA pH) 6.0 1 5.0-8.0 [facility] SWJGT5300-21-57 15:59:00Yellow *NA*(10/08/18 9:59 AM) [facility] UUZFE8246-18-70 15:59:00Clear (10/08/18 9:59 AM)[facility] TRDII0659-07-80 15:59:00Negative (10/08/18 9:59 AM)[facility] UTEON1764-28-16 15:59:00Negative (10/08/18 9:59 AM)[facility] WGBBP2405-57-21 15:59:00Small *ABN*(10/08/18 9:59 AM)[facility] VMQFY0264-11-67 15:59:00Negative (10/08/18 9:59 AM)[facility] AND AYGVI6971-29-99 15:59[facility]000.2[facility] 2018-10-08 15:59:00 Test Item Value Reference Range Interpretation Comments UA Bacteria (test code = UA Occasional /HPF Bacteria) [facility] AND [id number] 15:59:00 Test Item Value Reference Range Interpretation Comments UA RBC (test code = 0-2 /HPF See_Comment [Automa matthew message] The UA RBC) system which ge nerated this result tra nsmitted reference range : <=2. The reference range was not used to interpr et this result as carmen l/abnormal. [facility] AND NCUNU0695-53-58 15:59:00 Test Item Value Reference Range Interpretation Comments UA WBC (test code = UA WBC) 0-2 /HPF [facility] AND MJQOB1217-00-09 15:59:00 Test Item Value Reference Range Interpretation Comments UA Sq Epi (test code = UA Sq Moderate /LPF Epi) [facility] AND SGBSP8612-74-99 15:59:00 Test Item Value Reference Range Interpretation Comments UA Bili (test code = Negative *NA*(10/08/18 UA Bili) 9:59 AM) [facility] AND RNKNP9751-17-78 15:59:00 Test Item Value Reference Range Interpretation Comments UA Glucose (test code Negative (10/08/18 9:59 = UA Glucose) AM) [facility] AND [id number] 15:59:00 Test Item Value Reference Range Interpretation Comments UA Ketones (test code Negative *NA*(10/08/18 = UA Ketones) 9:59 AM) [facility] AND [id number] 15:59:00 Test Item Value Reference Range Interpretation Comments UA Spec Grav (test code = UA Spec 1.010 1 Grav) [facility] AND [id number] 15:59:00 Test Item Value Reference Range Interpretation Comments UA pH (test code = UA pH) 6.0 1 5.0-8.0 [facility] AND FDIAM2427-17-58 15:59:00 Test Item Value Reference Range Interpretation Comments UA Color (test code = Yellow *NA*(10/08/18 9:59 UA Color) AM) [facility] QRSNF7158-70-59 15:59:00 Test Item Value Reference Range Interpretation Comments UA Turbidity (test code = Clear (10/08/18 9:59 UA Turbidity) AM) [facility] ZCYIO1859-86-51 15:59:00 Test Item Value Reference Range Interpretation Comments UA Nitrite (test code Negative (10/08/18 9:59 = UA Nitrite) AM) [facility] KLEKZ7647-51-60 15:59:00 Test Item Value Reference Range Interpretation Comments UA Protein (test code Negative (10/08/18 9:59 = UA Protein) AM) [facility] [id number] 15:59:00 Test Item Value Reference Range Interpretation Comments UA Blood (test code = Small *ABN*(10/08/18 UA Blood) 9:59 AM) [facility] [id number] 15:59:00 Test Item Value Reference Range Interpretation Comments UA Leuk Est (test Negative (10/08/18 9:59 code = UA Leuk Est) AM) [facility] [id number] 15:59:00 Test Item Value Reference Range Interpretation Comments UA Urobilinogen (test code = UA 0.2 0.1-1.0 Urobilinogen) [facility] YPJUA9071-75-24 15:59:00Negative *NA*(10/08/18 9:59 AM) [facility] FAFVR2665-17-22 15:59:00Negative (10/08/18 9:59 AM) [facility] [id number] 15:59:00Negative *NA*(10/08/18 9:59 AM) [facility] [id number] 15:59:00 Test Item Value Reference Range Interpretation Comments UA Spec Grav (test code = UA Spec 1.010 1 Grav) [facility] [id number] 15:59:00 Test Item Value Reference Range Interpretation Comments UA pH (test code = UA pH) 6.0 1 5.0-8.0 [facility] [id number] 15:59:00Yellow *NA*(10/08/18 9:59 AM) [facility] [id number] 15:59:00Clear (10/08/18 9:59 AM)[facility] [id number] 15:59:00Negative (10/08/18 9:59 AM)[facility] [id number] 15:59:00Negative (10/08/18 9:59 AM)[facility] [id number] 15:59:00Small *ABN*(10/08/18 9:59 AM)[facility] [id number] 15:59:00Negative (10/08/18 9:59 AM)[facility] [id number] 15:59:000.2[id number] 15:21:00 Test Item Value Reference Range Interpretation Comments PTT (test code = PTT) 36.5 s 22.9-35.8 [id number] 15:21:00 Test Item Value Reference Range Interpretation Comments PT (test code = PT) 13.3 s 12.0-14.7 [facility]FDTZ[facility]RSER6090-84-10 15:21:00 Test Item Value Reference Range Interpretation Comments INR (test code = INR) 1.03 1 0.85-1.17 [facility]bz[facility]WTGFABKJFI5152-86-96 15:21:00 Test Item Value Reference Range Interpretation Comments Split Point Rapid (test code = Split 0.6 min Point Rapid) [facility] CenterNngbslrCHPKQUQMXS5152-57-66 15:21:00 Test Item Value Reference Range Interpretation Comments R-time Rapid (test code = R-time 0.7 min 0.4-0.7 Rapid) [facility] CenterXoxzssfWLNITKYXTZ1537-05-32 15:21:00 Test Item Value Reference Range Interpretation Comments ACT (TEG) Rapid (test code = ACT (TEG) 113 s 86-118 Rapid) [facility] CenterSbfqjfnPDIERNYDHW1515-70-24 15:21:0015.0[facility] 2018-10-08 15:21:00 Test Item Value Reference Range Interpretation Comments K-time Rapid (test code = K-time 0.8 min 0.6-2.3 Rapid) [facility] CenterTeyjbohBHZJPZBPTN9086-51-77 15:[facility] 15:21:00 Test Item Value Reference Range Interpretation Comments Angle Rapid (test code = Angle 79 degrees 64-80 Rapid) [facility]hbggdlYCWWURYKRD5772-98-07 15:21:00 Test Item Value Reference Range Interpretation Comments Max Amplitude Rapid (test code = Max 75 mm 52-71 Amplitude Rapid) [facility]leWrqclphYWMDCNEUUD8280-89-35 15:21:00 Test Item Value Reference Range Interpretation Comments PTT (test code = PTT) 36.5 s 22.9-35.8 [facility]leApuvqtxBRKNMRIGGE1096-47-53 15:21:00 Test Item Value Reference Range Interpretation Comments PT (test code = PT) 13.3 s 12.0-14.7 [facility]leTmydpovOCVAVGSPOE3279-95-40 15:21:00 Test Item Value Reference Range Interpretation Comments INR (test code = INR) 1.03 1 0.85-1.17 [facility]leNwxqwggPQXAJVBMBE5242-95-07 15:21:00 Test Item Value Reference Range Interpretation Comments Split Point Rapid (test code = Split 0.6 min Point Rapid) [facility]leTmaxlszBPPSYXTAYZ0463-52-80 15:21:00 Test Item Value Reference Range Interpretation Comments R-time Rapid (test code = R-time 0.7 min 0.4-0.7 Rapid) [facility] AzleFlesdeeYECPHQZYHJ0236-07-45 15:21:00 Test Item Value Reference Range Interpretation Comments ACT (TEG) Rapid (test code = ACT (TEG) 113 s 86-118 Rapid) [facility]leYyajmdwFMLUDMDEDG2513-49-20 15:21:00 Test Item Value Reference Range Interpretation Comments G-value Rapid (test code = G-value 15.0 5.0-11.6 Rapid) [facility]leOihooknMKMZVKRKYI5123-43-35 15:21:00 Test Item Value Reference Range Interpretation Comments K-time Rapid (test code = K-time 0.8 min 0.6-2.3 Rapid) [facility]leHiymygrYPXLIHNBUL6118-62-77 15:21:00 Test Item Value Reference Range Interpretation Comments Estimated % Lysis Rapid 0.3 See_Comment [Au tomated message] The (test code = Estimated syste m which generated % Lysis Rapid) this result t ransmitted reference range : <=7.5. The reference r kunal was not used to int erpret this result as normal/abnormal . [facility] AzleZapfbmoNQAEBCJBAY0206-30-35 15:21:00 Test Item Value Reference Range Interpretation Comments Angle Rapid (test code = Angle 79 degrees 64-80 Rapid) [facility]leQmqqkvvQHZMRTCNXT7305-61-81 15:21:00 Test Item Value Reference Range Interpretation Comments Max Amplitude Rapid (test code = Max 75 mm 52-71 Amplitude Rapid) [facility]leWitdixsBNQLCRCDPZ5508-08-29 15:21:00 Test Item Value Reference Range Interpretation Comments PTT (test code = PTT) 36.5 s 22.9-35.8 [facility]leNauzfbkEPTSMRNEVT5740-29-72 15:21:00 Test Item Value Reference Range Interpretation Comments PT (test code = PT) 13.3 s 12.0-14.7 [facility] AzleEgkcaekOJWDHXNFTD0202-40-96 15:21:00 Test Item Value Reference Range Interpretation Comments INR (test code = INR) 1.03 1 0.85-1.17 [facility] AzleFpqlpriQZFCVKIWML6731-35-00 15:21:00 Test Item Value Reference Range Interpretation Comments Split Point Rapid (test code = Split 0.6 min Point Rapid) [facility] AzleTrmhhlaBPQWSYBVCW9936-09-31 15:21:00 Test Item Value Reference Range Interpretation Comments R-time Rapid (test code = R-time 0.7 min 0.4-0.7 Rapid) [facility] AzleZkffaruUWQWFHVKFJ5569-33-32 15:21:00 Test Item Value Reference Range Interpretation Comments ACT (TEG) Rapid (test code = ACT (TEG) 113 s 86-118 Rapid) [facility] AzleYqgqjdjGXEYQHJZIK9767-33-70 15:21:0015.0[facility] 2018-10-08 15:21:00 Test Item Value Reference Range Interpretation Comments K-time Rapid (test code = K-time 0.8 min 0.6-2.3 Rapid) [facility] AzleJsjqgznEJMSQBMBFL6992-07-97 15:21:000.3[facility] 2018-10-08 15:21:00 Test Item Value Reference Range Interpretation Comments Angle Rapid (test code = Angle 79 degrees 64-80 Rapid) [facility] AzleDydsndsJMXDKKYVJS1578-85-16 15:21:00 Test Item Value Reference Range Interpretation Comments Max Amplitude Rapid (test code = Max 75 mm 52-71 Amplitude Rapid) [facility] [employer] BANK [id number] 15:20:00Negative (10/08/18 9:20 AM) [facility] [id number] 15:20:00 Test Item Value Reference Range Interpretation Comments ABO/Rh (test code = ABO/Rh) O [facility] [employer] BANK [id number] 15:20:00 Test Item Value Reference Range Interpretation Comments Antibody Scrn (test Negative (10/08/18 9:20 code = Antibody Scrn) AM) [facility] [employer] BANK [id number] 15:20:00Negative (10/08/18 9:20 AM) [facility]annCARDIAC [id number] 15:18:00<0.02[facility]annCHEM [id number] 15:18:003.9[facility]annCHEM [id number] 15:18:001.9 [facility] PF ChangsannCHEM [id number] 15:18:000.8[facility]annHEMATOLOGY 2018-10-08 15:18:000.1[facility] HubhketRCFNAAHXXY3172-67-35 15:18:000.1[facility] BgbrvonKCIHQDIVZF1060-15-22 15:18:001.8[facility] HermannCARDIAC [id number] 15:18:00 Test Item Value Reference Range Interpretation Comments Troponin-I (test code no gt See_Comment [Auto mated message] The = Troponin-I) system which g enerated this result transmit matthew reference range : <=0.40. The reference r kunal was not used to interpr et this result as carmen l/abnormal. [facility] ChangsannCHEM [id number] 15:18:00 Test Item Value Reference Range Interpretation Comments Phosphorus (test code = Phosphorus) 3.9 2.5-4.5 [facility] PF ChangsannCHEM [id number] 15:18:00 Test Item Value Reference Range Interpretation Comments Magnesium Lvl (test code = Magnesium 1.9 1.8-2.4 Lvl) [facility] PF ChangsannCHEM [id number] 15:18:00 Test Item Value Reference Range Interpretation Comments Lactic Acid Lvl (test code = Lactic 0.8 0.5-2.2 Acid Lvl) [facility] 15:18:00 Test Item Value Reference Range Interpretation Comments Basophils # (test code 0.1 See_Comment [Aut omated message] The = Basophils #) system which generated this result tra nsmitted reference range : <=0.2. The reference r kunal was not used to int erpret this result as normal/abnormal . [facility]AdmuetpHJJIMHQWPH7582-06-66 15:18:00 Test Item Value Reference Range Interpretation Comments Eosinophils # (test code 0.1 See_Comment [A utomated message] The = Eosinophils #) system whic h generated this result tra nsmitted reference range : <=0.5. The reference r kunal was not used to int erpret this result as normal/abnormal . [facility] AzleCxerjhoGNJHKALDTN2273-65-89 15:18:00 Test Item Value Reference Range Interpretation Comments Eosinophils (test code = 1.8 See_Comment [A utomated message] The Eosinophils) system which ge nerated this result tra nsmitted reference range : <=4.0. The reference r kunal was not used to int erpret this result as normal/abnormal . [facility] HermannCARDIAC [id number] 15:18:00<0.02[facility] HermannCHEM [id number] 15:18:003.9[facility] HermannCHEM [id number] 15:18:001.9 [facility]annCHEM [id number] 15:18:000.8[facility]annHEMATOLOGY 2018-10-08 15:18:000.1[facility] GaeqjtoKXGGKNZUYH6321-01-40 15:18:000.1[facility] VycfleoUIHNSJBCKT9892-04-22 15:18:001.8[facility]
--- NOTE | 2022-04-14 13:24 | RAD REPORT ---
EXAM DESCRIPTION: CT - Head Brain Wo Cont - 04/14/2022 1:13 pm CLINICAL HISTORY: frontal mcgovern, hx of subdural Headache, drowsiness COMPARISON: Head angio dated 10/08/2018 TECHNIQUE: All CT scans are performed using dose optimization technique as appropriate and may inclu de automated exposure control or mA/KV adjustment according to patient size. FINDINGS: No intracranial hemorrhage, hydrocephalus or extra-axial fluid collection.No areas of brai n edema or evidence of midline shift. The paranasal sinuses and mastoids are clear. The calvarium is intact. IMPRESSION: No acute intracranial abnormality.
[2022-04-14 14:45] LABS: Urine Blood 1+ (Negative); Urine Glucose Negative (Negative); Urine Protein 1+ (Negative); Urine Specific Gravity >=1.030 (1.005-1.030); Urine pH 5.5 (5.0-7.0)
--- NOTE | 2022-04-14 15:53 | ER ---
Nurse's Notes [facility] Name: Joanna Lim Age: 52 yrs Sex: Female : 1970 Arrival Date: 04/14/2022 Time: 12:25 Bed Treatment Private MD: Parminder Velez Diagnosis: Headache;Toenail Avulsion Presentation: 04/14 12:47 Chief complaint: Patient states: Pt reports VALLECILLO across forehead x2 days. States no kb3 relief with Aleve taken yesterday. Describes as tense. Coronavirus screen: Vaccine status: Patient reports receiving the 2nd dose of the covid vaccine. Client denies travel out of the [place] in the last 14 days. Ebola Screen: Patient negative for fever greater than or equal to 101.5 degrees Fahrenheit, and additional compatible Ebola Virus Disease symptoms Patient denies exposure to infectious person. Patient denies travel to an Ebola-affected area in the 21 days before illness onset. Initial Sepsis Screen: Does the patient meet any 2 criteria? No. Patient's initial sepsis screen is negative. Does the patient have a suspected source of infection? No. Patient's initial sepsis screen is negative. Risk Assessment: Do you want to hurt yourself or someone else? Patient reports no desire to harm self or others. Onset of symptoms was April 12, 2022 at 18:00. 12:47 Method Of Arrival: Ambulatory 3 12:47 Acuity: JAYSHREE 3 kb3 Triage Assessment: 12:50 Headache History: The patient has had previous headaches and this one is similar to kb3 previous episodes. General: Appears in no apparent distress. comfortable. General: Behavior is calm, cooperative. Pain: Complains of pain in forehead Pain does not radiate. Pain currently is 8 out of 10 on a pain scale. Pain began 2-3 days ago. Also complains of no other associated symptoms. Neuro: No deficits noted. 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 - Social history:: Smoking status: Patient denies any tobacco usage or history of. Screenin:14 Abuse screen: Denies threats or abuse. Denies injuries from another. iw 16:15 Nutritional screening: No deficits noted. Tuberculosis screening: No symptoms or risk iw factors identified. Fall Risk None identified. Assessment: 15:00 General: Appears in no apparent distress. Behavior is calm, cooperative. Pain: iw Complains of pain in forehead. Neuro: Level of Consciousness is awake, alert, obeys commands, Oriented to person, place, time, situation, Moves all extremities. Full function. Cardiovascular: Patient's skin is warm and dry. Respiratory: Respiratory effort is even, unlabored, Respiratory pattern is regular, symmetrical. Derm: No deficits noted. Musculoskeletal: Range of motion: intact in all extremities. Vital Signs: 12:47 BP 137 / 84; Pulse 81; Resp 20; Temp 97.9; Pulse Ox 98% ; Weight 97.52 kg; Height 5 ft. kb3 8 in. (172.72 cm); Pain 8/10; 12:47 Body Mass Index 32.69 (97.52 kg, 172.72 cm) kb3 ED Course: 12:25 Patient arrived in ED. am2 12:25 Parminder Velez DO is Private Physician. am2 12:50 Triage completed. kb3 12:50 Arm band placed on right wrist. kb3 12:53 Luis Alberto Hollins DO is Attending Physician. ms3 12:57 Francis Tony PA is PHCP. sanjuanita 13:15 CT Head Brain wo Cont In Process Unspecified. EDMS 15:00 Patient has correct armband on for positive identification. iw 15:07 Angela Cazares, RN is Primary Nurse. iw 15:51 Parminder Velez DO is Referral Physician. sanjuanita 16:14 No provider procedures requiring assistance completed. Patient did not have IV access iw during this emergency room visit. Administered Medications: 16:15 Drug: Ketorolac 30 mg Route: IM; Site: left deltoid; iw 16:30 Follow up: Response: No adverse reaction iw Medication: 16:30 VIS not applicable for this client. iw Outcome: 15:52 Discharge ordered by . sanjuanita 16:14 Discharged to home ambulatory. iw 16:14 Condition: good 16:14 Discharge instructions given to patient, Instructed on discharge instructions, follow up and referral plans. medication usage, Demonstrated understanding of instructions, follow-up care, Prescriptions given X 2. 16:15 Patient left the ED. iw Signatures: Dispatcher [employer] EDMS Francis Tony PA PA jmm Williams, Irene, RN RN iw Bessie Dia am2 Luis Alberto Hollins DO DO ms3 Payal Boucher RN RN kb3 Corrections: (The following items were deleted from the chart) 12:53 12:50 Home Meds: meloxicam Oral; kb3 kb3 12:53 12:50 Home Meds: multiple muscle relaxers; kb3 kb3 12:53 12:50 Home Meds: tizanidine Oral; kb3 kb3
--- NOTE | 2022-04-14 15:53 | EDPHYS ---
Physician Documentation [facility] Name: Joanna Lim Age: 52 yrs Sex: Female : 1970 Arrival Date: 04/14/2022 Time: 12:25 Bed Treatment Private MD: [facility] ED Physician Luis Alberto Hollins HPI: 04/14 12:59 This 52 yrs old Black Female presents to ER via Ambulatory with complaints of Headache, jmm Toe Injury. 12:59 The patient complains of pain to the forehead. Onset: The symptoms/episode jmm began/occurred gradually. Associated signs and symptoms: Pertinent negatives: fever. This is a 52-year-old female with a history of subdural hematoma that presents emerged department with complaints of a frontal headache beginning approximately 1 day ago. Patient states pain is similar to when she experienced a subdural hematoma. Also complains of a painful great toenail. Also complains of dysuria.. 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 - Social history:: Smoking status: Patient denies any tobacco usage or history of. ROS: 12:59 Constitutional: Negative for fever, chills, and weight loss, Cardiovascular: Negative jmm for chest pain, palpitations, and edema, Respiratory: Negative for shortness of breath, cough, wheezing, and pleuritic chest pain, Abdomen/GI: Negative for abdominal pain, nausea, vomiting, diarrhea, and constipation. 12:59 : Positive for urinary symptoms. 12:59 Neuro: Positive for headache. 12:59 All other systems are negative. Exam: 12:59 Constitutional: This is a well developed, well nourished patient who is awake, alert, jmm and in no acute distress. Head/Face: atraumatic. Eyes: EOMI, no conjunctival erythema appreciated ENT: Moist Mucus Membranes Neck: Trachea midline, Supple Chest/axilla: Normal chest wall appearance and motion. Cardiovascular: Regular rate and rhythm. No edema appreciated Respiratory: Normal respirations, no respiratory distress appreciated Abdomen/GI: Non distended Back: Normal ROM Skin: General appearance color normal 12:59 Musculoskeletal/extremity: ROM: intact in all extremities. 12:59 Skin: Appearance: Color: normal in color. 12:59 Neuro: Orientation: is normal, Mentation: is normal, Memory: is normal. 12:59 Psych: Behavior/mood is pleasant, cooperative. Vital Signs: 12:47 BP 137 / 84; Pulse 81; Resp 20; Temp 97.9; Pulse Ox 98% ; Weight 97.52 kg; Height 5 ft. kb3 8 in. (172.72 cm); Pain 8/10; 12:47 Body Mass Index 32.69 (97.52 kg, 172.72 cm) kb3 MDM: 12:59 Patient medically screened. [facility] 15:50 Data reviewed: vital signs, nurses notes. Counseling: I had a detailed discussion with sanjuanita the patient and/or guardian regarding: the historical points, exam findings, and any diagnostic results supporting the discharge/admit diagnosis, the need for outpatient follow up, to return to the emergency department if symptoms worsen or persist or if there are any questions or concerns that arise at home. 04/14 14:46 Order name: Urine Dipstick-Ancillary; Complete Time: 14:47 [facility] 04/14 13:00 Order name: CT Head Brain wo Cont; Complete Time: 13:25 [facility] 04/14 14:42 Order name: Urine Dipstick-Ancillary (obtain specimen); Complete Time: 15:30 [facility] Administered Medications: 16:15 Drug: Ketorolac 30 mg Route: IM; Site: left deltoid; iw 16:30 Follow up: Response: No adverse reaction iw Disposition: 23:00 Co-signature as Attending Physician, Luis Alberto Hollins DO I agree with the assessment and ms3 plan of care. Disposition Summary: 04/14/22 15:52 Discharge Ordered Location: Home [facility] Condition: Stable [facility] Diagnosis - Headache [facility] - Toenail Avulsion [facility] Followup: [facility] - With: Parminder Velez, DO - When: 2 - 3 days - Reason: Recheck today's complaints, Continuance of care, Re-evaluation by your physician Discharge Instructions: - Discharge Summary Sheet m - General Headache Without Cause jmm - Fingernail or Toenail Removal, Adult jm Forms: - Medication Reconciliation Form jmm - Thank You Letter jm - Antibiotic Education [facility] - Prescription Opioid Use [facility] Prescriptions: - Diclofenac Sodium 75 mg Oral Tablet Sustained Release - take 1 tablet by ORAL route 2 times per day; 30 tablet; Refills: 0, Product jm Selection Permitted - orphenadrine citrate 100 mg Oral Tablet Sustained Release - take 1 tablet by ORAL route 2 times per day As needed; 20 tablet; Refills: 0, jm Product Selection Permitted Signatures: Dispatcher [employer] EDMS Francis Tony PA PA jmm Williams, Irene, RN RN iw Sims, Marcus, DO DO ms3 Payal Boucher, JULIENNE RN kb3 Corrections: (The following items were deleted from the chart) 12:53 12:50 Home Meds: meloxicam Oral; kb3 kb3 12:53 12:50 Home Meds: multiple muscle relaxers; kb3 kb3 12:53 12:50 Home Meds: tizanidine Oral; kb3 kb3
[2022-04-14] MEDS ORDERED: KETOROLAC 30 MG/ML INJ ONE (16:15)
[2022-04-14 16:24] VITALS: BP 137/84; TEMP 97.9; O2SAT 98
== END 2022-04-14 16:15 | disposition home or self-care (01) ==
LOC: ER 12:23
DX: R51.9 Headache, unspecified (principal); S91.201A Unspecified open wound of right great toe with damage to nail, initial encounter; Z88.0 Allergy status to penicillin; Z88.5 Allergy status to narcotic agent
CPT/HCPCS: 70450; 81003; 96372; 99283

== ENCOUNTER 2022-08-24 21:22 | Emergency (ER) | payer OTHER ==
--- OUTSIDE RECORDS SUMMARY | 2022-08-24 21:34 | XMS REPORT | Continuity of Care Document ---
:1970 Author Organization [facility] t Address [address] [place] [address] Support Name Relationship Address Phone Yolanda Ruiz Other [address] [place] [address] L Dane Ruiz Relative [address] [place] [address] N Jonah Lim Child [address] [place] [address] JONAH LIM N [address] [place] [address] DANE RUIZ L Relative [address] [place] [address] Carina Joanna Unavailable [address] [phone] [place] [address] Lim, Joanna Unavailable [address] [phone] [place] [address] Care Team Providers Name Role Phone Parminder Velez Primary Care Physician [phone] Parminder Velez Attending Clinician Unavailable LIEN AYALA Attending Clinician Unavailable Lien Ramachandran Attending Clinician Pob, [facility] Main Attending Clinician Unavailable Doctor Unassigned, [place] Attending Clinician Unavailable RADIOLOGY Attending Clinician Unavailable ZOIE VASQUEZ Attending Clinician Unavailable Karmen Velez MD Attending Clinician Betty Be MA Attending Clinician Unavailable CHRIS CRANE Attending Clinician Unavailable Chris Crane MD Attending Clinician UNKNOWN, ATTENDING Attending Clinician Unavailable PATSY FROST Attending Clinician Unavailable SEBASTIAN KHAN Attending Clinician Unavailable Sebastian Franklin Attending Clinician Nurse, [facility] Surgery Gu Attending Clinician Unavailable Paula LOPEZ, Adiel Attending Clinician ADIEL MITCHELL Attending Clinician Unavailable Only, Adc Test Attending Clinician Unavailable Jeanna Gar Attending Clinician Jaden LOPEZ, Kyle Attending Clinician KYLE STANLEY Attending Clinician Unavailable JEANNA VILCHIS Attending Clinician Unavailable Joey ROBINS, Jason Hou Attending Clinician Unavailable CECILE EKITA Attending Clinician Unavailable CECILE KEITA Attending Clinician Unavailable 2, [facility] Lab Attending Clinician Unavailable NORA PEACOCK Attending Clinician Unavailable NORA PEACOCK Attending Clinician Unavailable NATALYA FUNES Attending Clinician Unavailable Natalya Funes DO Attending Clinician KELBY VELIZ Attending Clinician Unavailable Nilda Serrano MA Attending Clinician Unavailable Cecile Keita MD Attending Clinician Ifoema Harrell PA-C Attending Clinician [employer], [facility] Bl[facility] Urogyn Attending Clinician Unavailable Elizabeth Wolf Attending Clinician [phone] ELIZABETH MOREAU Attending Clinician Unavailable ERICK PETTIT Attending Clinician Unavailable Erick Pettit MD Attending Clinician JARROD ORTIZ Attending Clinician Unavailable Brooke Terrell MD Attending Clinician BROOKE TERRELL Attending Clinician Unavailable Keyon Marquez DO Attending Clinician JERMAINE LE Attending Clinician Unavailable [place] Attending Clinician Jermaine Le MD Attending Clinician Diana Tate MD Attending Clinician JESSICA HE Attending Clinician Unavailable NILS GARCIA Attending Clinician Unavailable Unknown, Attending Attending Clinician Unavailable MATTHEW METCALF Attending Clinician Unavailable VISIT[facility] Attending Clinician Unavailable Edis Ken Attending Clinician Bryan Funes II Attending Clinician CHRIS CRANE Admitting Clinician Unavailable SEBASTIAN KHAN Admitting Clinician Unavailable ADIEL MITCHELL Admitting Clinician Unavailable Adiel Mitchell MD Admitting Clinician Chris Crane MD Admitting Clinician NATALYA FUNES Admitting Clinician Unavailable RAZIA GRANT Admitting Clinician Unavailable ERICK PETTIT Admitting Clinician Unavailable Dmitry Duvall Jr Admitting Clinician Payers Payer Name Policy Type Policy Number Effective Date Expiration Date S mar[place] [id number] 2016 CHILDREN'S 00:00:00 HEALTH PLAN [place] [id number] 2020 Common Sp jaylene HEALTH PLAN 00:00:00 - [place] [id number] 2020 Common Sp jaylene HEALTH PLAN 00:00:00 - [place] [id number] 2020 Common Sp jaylene HEALTH PLAN 00:00:00 - [facility] Problems Condition Condition Condition Status Onset Resolution Last Treating Co mments Source Name Details Category Date Date Treatment Clinician Date Left Left Disease Active Overview: [facility] s ureteral ureteral 10-12 Formattin ity of stone stone 00:00: g of this [place] 00 note Medical might be Branch different from the original. Added automatic ally from request for surgery [id number] CHRONIC CHRONIC Diagnosis Active 2019-02-01 Memoria SDH SDH Active 10-08 10:05:00 l 10/08/2018 00:00: Narinder denton [address] NON NON Diagnosis Active 2018-10-08 Mem oria SUBACUTE SUBACUTE 10-08 10:22:00 l TRAUMATIC TRAUMATIC 00:00: Alon keenan SUBDURAL SUBDURAL 00 HEMATOMA HEMATOMA Active 10/08/2018 [facility] Status Status Disease Active Univers post post 2-23 ity of vaginal vaginal 00:00: [place] hysterecto hysterecto 00 Me dical my my Branch Status Status Disease Active Univers post post 09-30 ity of vaginal vaginal 00:00: [place] hysterecto hysterecto 00 Me dical my my Branch Post-opera Post-opera Disease Active U nivers tive state tive state 09-30 it y of 00:00: [place] 00 Medical Branch Uterine Uterine Disease Active Univers polyp polyp 1-05 ity of 00:00: [place] 00 Medical Branch Goiter Goiter Disease Active 2014-08 Univers 0-07 ity of 00:00: [place] 00 Medical Branch Simple Simple Problem Active 2019-04-08 [place] anny obesity obesity 00:24:36 l (disorder) (disorder) He rmann Active Problem 04/08/2019 Ariel Neuro, HEATH Gonzalez, HEATH Palumbo NONTRAUMAT NONTRAUMA Diagnosis Active 2019-02-01 Memoria IC CHRONIC TIC 10:05:00 l SUBDURAL CHRONIC [place] HEMORRHAGE SUBDURAL HEMORRHAGE Active [facility] [id number] Mixed Problem Common hyperlipid Spirit emia - [facility] [id number] Body mass Problem Com mon index Spirit [BMI] - [facility] 32.0-32.9, [facility] [id number] Other Problem Common obesity Spirit due to - [facility] excess [facility] [id number] 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 - [facility] region [facility] myelopathy Medica l or Center radiculopa thy [id number] Other Problem Common chronic Spirit pain - [facility] [id number] Thyroid Problem Commo n nodule Spirit - [facility] [id number] Renal Problem Common calculus Spirit or stone - [facility] [id number] Urinary Problem Commo n incontinen Spirit ce, - [facility] unspecifie [facility] Allergies, Adverse Reactions, Alerts Allergy Allergy Status Severity Reaction(s) Onset Inactive Treating Comm ents Source Name Type Date Date Clinician Penicill Allergy Active Hives 2021-08 [place] amine to 09-13 Health substanc 00:00: e 00 Penicill Propensi Active Other - See 2014-08 [...] 00:00: [place] reaction 00 Medical s Branch penicill penicill Active Memori a in in l [place] penicill penicill Active hives Common amine amine Spirit - [facility] Social History Social Habit Start Date Stop Date Quantity Comments Source History SDNY University o f Alcohol Frequency [place] M edical Branch History SDNY University o f Alcohol Std [place] Medical Drinks Branch History SDNY University o f Alcohol Binge [place] Medic al Branch History of Common Spirit - Tobacco Use [facility] Sex Assigned At Common Sp jaylene - [facility] Exposure to 2022-08-07 2022-08-17 Not sure [facility] SARS-CoV-2 00:00:00 14:58:00 [facility] (event) [place] Alcohol intake 2022-07-29 2022-07-29 0 /d University of 00:00:00 00:00:00 [facility] Tobacco use and 2022-07-28 2022-07-28 Smokeless tobacco Un iversity of exposure 00:00:00 00:00:00 non-user [facility] Tobacco Comment 2022-07-13 2022-07-13 Smoking History [facility] 00:00:00 Packs/day: N. Recorded:10/09/19 21 Alcohol Comment 2021-07-24 2021-07-24 occasional Universit y of 00:00:00 00:00:00 [facility] Smoking Status Start Date Stop Date Source Social History [facility] Medications Ordered Filled Start Stop Current Ordering Indication Dosage Frequency Signature Comments Components Source Medication Medication Date Date Medication? Clinician (SIG) Name Name celecoxib 2021-08- Yes [id number] 100mg Q.5D Take 1 [facility] (CeleBREX) 2-08-13 capsule Healt h 100 MG 00:00: 05:59 (100 mg capsule 00 :00 total) by mouth in the morning and 1 capsule (100 mg total) in the evening. orphenadrin 2021-08 Yes 100mg Q.5D Take 100 U T e (Norflex) 1-20 mg by Health 100 MG 12 00:00: mouth 2 hr tablet 00 (two) times a day if needed. NAPROXEN 2022-0 Yes 1{tbl} Take 1 Unive rs ORAL 6-20 tablet by ity of 14:45: mouth. [address] tiZANidine 2022-0 Yes 4mg Take 4 mg Un leonel 4 mg 6-20 by mouth 3 ity of capsule 14:45: (three) [place] 04 times Medical daily. Branch NAPROXEN 2022-0 Yes 1{tbl} Take 1 Unive rs ORAL 6-20 tablet by ity of 14:45: mouth. [address] tiZANidine 2022-0 Yes 4mg Take 4 mg Un leonel 4 mg 6-20 by mouth 3 ity of capsule 14:45: (three) [place] 04 times Medical daily. Branch NAPROXEN 2-0 Yes 1{tbl} Take 1 Unive rs ORAL 6-20 tablet by ity of 14:45: mouth. [address] tiZANidine 2-0 Yes 4mg Take 4 mg Un leonel 4 mg 6-20 by mouth 3 ity of capsule 14:45: (three) [place] 04 times Medical daily. Branch NAPROXEN 2-0 Yes 1{tbl} Take 1 Unive rs ORAL 6-20 tablet by ity of 14:45: mouth. [address] tiZANidine 2-0 Yes 4mg Take 4 mg Un leonel 4 mg 6-20 by mouth 3 ity of capsule 14:45: (three) [place] 04 times Medical daily. Branch NAPROXEN 2-0 Yes 1{tbl} Take 1 Unive rs ORAL 6-20 tablet by ity of 14:45: mouth. [address] tiZANidine 2-0 Yes 4mg Take 4 mg Un leonel 4 mg 6-20 by mouth 3 ity of capsule 14:45: (three) [place] 04 times Medical daily. Branch NAPROXEN 2-0 Yes 1{tbl} Take 1 Unive rs ORAL 6-20 tablet by ity of 14:45: mouth. [address] tiZANidine 2022-0 Yes 4mg Take 4 mg Un leonel 4 mg 6-20 by mouth 3 ity of capsule 14:45: (three) [place] 04 times Medical daily. Branch NAPROXEN 2-0 Yes 1{tbl} Take 1 Unive rs ORAL 6-20 tablet by ity of 14:45: mouth. [address] tiZANidine 2-0 Yes 4mg Take 4 mg Un leonel 4 mg 6-20 by mouth 3 ity of capsule 14:45: (three) [place] 04 times Medical daily. Branch NAPROXEN 2-0 Yes 1{tbl} Take 1 Unive rs ORAL 6-20 tablet by ity of 14:45: mouth. [address] tiZANidine 2-0 Yes 4mg Take 4 mg Un leonel 4 mg 6-20 by mouth 3 ity of capsule 14:45: (three) [place] 04 times Medical daily. Branch NAPROXEN 2-0 Yes 1{tbl} Take 1 Unive rs ORAL 6-20 tablet by ity of 14:45: mouth. [address] tiZANidine 2-0 Yes 4mg Take 4 mg Un leonel 4 mg 6-20 by mouth 3 ity of capsule 14:45: (three) [place] 04 times Medical daily. Branch NAPROXEN 2-0 Yes 1{tbl} Take 1 Unive rs ORAL 6-20 tablet by ity of 14:45: mouth. [address] tiZANidine 2-0 Yes 4mg Take 4 mg Un leonel 4 mg 6-20 by mouth 3 ity of capsule 14:45: (three) [place] 04 times Medical daily. Branch NAPROXEN 2-0 Yes 1{tbl} Take 1 Unive rs ORAL 6-20 tablet by ity of 14:45: mouth. [address] tiZANidine 2-0 Yes 4mg Take 4 mg Un leonel 4 mg 6-20 by mouth 3 ity of capsule 14:45: (three) [place] 04 times Medical daily. Branch NAPROXEN 2-0 Yes 1{tbl} Take 1 Unive rs ORAL 6-20 tablet by ity of 14:45: mouth. [address] tiZANidine 2-0 Yes 4mg Take 4 mg Un leonel 4 mg 6-20 by mouth 3 ity of capsule 14:45: (three) [place] 04 times Medical daily. Branch NAPROXEN 2-0 Yes 1{tbl} Take 1 Unive rs ORAL 6-20 tablet by ity of 14:45: mouth. [place] 04 Medical Branch tiZANidine 2021-0 Yes 4mg Take 4 mg Un leonel 4 mg 6-20 by mouth 3 ity of capsule 14:45: (three) [place] [address] times Medical daily. Branch DULoxetine 2021-0 Yes 20mg Take 20 mg U nivers 20 mg 3-23 by mouth ity of capsule 19:13: daily. [address] Branch DULoxetine 2021-0 Yes 20mg Take 20 mg U nivers 20 mg 3-23 by mouth ity of capsule 19:13: daily. [address] Branch DULoxetine 2021-0 Yes 20mg Take 20 mg U nivers 20 mg 3-23 by mouth ity of capsule 19:13: daily. [address] Branch DULoxetine 2021-0 Yes 20mg Take 20 mg U nivers 20 mg 3-23 by mouth ity of capsule 19:13: daily. [address] DULoxetine 2021-0 Yes 20mg Take 20 mg U nivers 20 mg 3-23 by mouth ity of capsule 19:13: daily. [address] DULoxetine 2021-0 Yes 20mg Take 20 mg U nivers 20 mg 3-23 by mouth ity of capsule 19:13: daily. [address] Branch DULoxetine 2021-0 Yes 20mg Take 20 mg U nivers 20 mg 3-23 by mouth ity of capsule 19:13: daily. [address] DULoxetine 2021-0 Yes 20mg Take 20 mg U nivers 20 mg 3-23 by mouth ity of capsule 19:13: daily. [address] DULoxetine 2021-0 Yes 20mg Take 20 mg U nivers 20 mg 3-23 by mouth ity of capsule 19:13: daily. [address] DULoxetine 2021-0 Yes 20mg Take 20 mg U nivers 20 mg 3-23 by mouth ity of capsule 19:13: daily. [address] DULoxetine 2021-0 Yes 20mg Take 20 mg U nivers 20 mg 3-23 by mouth ity of capsule 19:13: daily. [address] Branch DULoxetine 2021-0 Yes 20mg Take 20 mg U nivers 20 mg 3-23 by mouth ity of capsule 19:13: daily. [address] DULoxetine 2021-0 Yes 20mg Take 20 mg U nivers 20 mg 3-23 by mouth ity of capsule 19:13: daily. [place] [address] Medical Branch TAMSULOSIN 2-0 Yes [id number] TAKE 1 U nivers 0.4 mg 24 3-23 CAPSULE BY ity of hr capsule 00:00: [facility] EVERY DAY Medical Branch TAMSULOSIN 2-0 Yes [id number] TAKE 1 U nivers 0.4 mg 24 3-23 CAPSULE BY ity of hr capsule 00:00: [facility] EVERY DAY Medical Branch TAMSULOSIN 2-0 Yes [id number] TAKE 1 U nivers 0.4 mg 24 3-23 CAPSULE BY ity of hr capsule 00:00: [facility] EVERY DAY Medical Branch TAMSULOSIN 2021-0 Yes [id number] TAKE 1 U nivers 0.4 mg 24 3-23 CAPSULE BY ity of hr capsule 00:00: [facility] EVERY DAY Medical Branch TAMSULOSIN 2021-0 Yes [id number] TAKE 1 U nivers 0.4 mg 24 3-23 CAPSULE BY ity of hr capsule 00:00: [facility] EVERY DAY Medical Branch TAMSULOSIN 2021-0 Yes [id number] TAKE 1 U nivers 0.4 mg 24 3-23 CAPSULE BY ity of hr capsule 00:00: [facility] EVERY DAY Medical Branch TAMSULOSIN 2021-0 Yes [id number] TAKE 1 U nivers 0.4 mg 24 3-23 CAPSULE BY ity of hr capsule 00:00: [facility] EVERY DAY Medical Branch TAMSULOSIN 2-0 Yes [id number] TAKE 1 U nivers 0.4 mg 24 3-23 CAPSULE BY ity of hr capsule 00:00: [facility] EVERY DAY Medical Branch TAMSULOSIN 2-0 Yes [id number] TAKE 1 U nivers 0.4 mg 24 3-23 CAPSULE BY ity of hr capsule 00:00: [facility] EVERY DAY Medical Branch TAMSULOSIN 2-0 Yes [id number] TAKE 1 U nivers 0.4 mg 24 3-23 CAPSULE BY ity of hr capsule 00:00: [facility] EVERY DAY Medical Branch TAMSULOSIN 2-0 Yes [id number] TAKE 1 U nivers 0.4 mg 24 3-23 CAPSULE BY ity of hr capsule 00:00: [facility] EVERY DAY Medical Branch TAMSULOSIN 2-0 Yes [id number] TAKE 1 U nivers 0.4 mg 24 3-23 CAPSULE BY ity of hr capsule 00:00: MOUTH [place] 00 EVERY DAY Medical Branch TAMSULOSIN 2021-0 Yes [id number] TAKE 1 U nivers 0.4 mg 24 3-23 CAPSULE BY ity of hr capsule 00:00: MOUTH [place] 00 EVERY DAY Medical Branch ibuprofen 2021-0 Yes [id number] 400mg Take 2 U nivers (MOTRIN IB) 3-22 tablets by it y of 200 mg 00:00: mouth [place] tablet 00 every 6 Medical (six) Branch hours as needed for Pain (scale 1-3). ibuprofen 2021-0 Yes [id number] 400mg Take 2 U nivers (MOTRIN IB) 3-22 tablets by it y of 200 mg 00:00: mouth [place] tablet 00 every 6 Medical (six) Branch hours as needed for Pain (scale 1-3). ibuprofen 2021-0 Yes [id number] 400mg Take 2 U nivers (MOTRIN IB) 3-22 tablets by it y of 200 mg 00:00: mouth [place] tablet 00 every 6 Medical (six) Branch hours as needed for Pain (scale 1-3). ibuprofen 2021-0 Yes [id number] 400mg Take 2 U nivers (MOTRIN IB) 3-22 tablets by it y of 200 mg 00:00: mouth [place] tablet 00 every 6 Medical (six) Branch hours as needed for Pain (scale 1-3). ibuprofen 2021-0 Yes [id number] 400mg Take 2 U nivers (MOTRIN IB) 3-22 tablets by it y of 200 mg 00:00: mouth [place] tablet 00 every 6 Medical (six) Branch hours as needed for Pain (scale 1-3). ibuprofen 2021-0 Yes [id number] 400mg Take 2 U nivers (MOTRIN IB) 3-22 tablets by it y of 200 mg 00:00: mouth [place] tablet 00 every 6 Medical (six) Branch hours as needed for Pain (scale 1-3). ibuprofen 2021-0 Yes [id number] 400mg Take 2 U nivers (MOTRIN IB) 3-22 tablets by it y of 200 mg 00:00: mouth [place] tablet 00 every 6 Medical (six) Branch hours as needed for Pain (scale 1-3). ibuprofen 2021-0 Yes [id number] 400mg Take 2 U nivers (MOTRIN IB) 3-22 tablets by it y of 200 mg 00:00: mouth [place] tablet 00 every 6 Medical (six) Branch hours as needed for Pain (scale 1-3). ibuprofen 2021-0 Yes [id number] 400mg Take 2 U nivers (MOTRIN IB) 3-22 tablets by it y of 200 mg 00:00: mouth [place] tablet 00 every 6 Medical (six) Branch hours as needed for Pain (scale 1-3). ibuprofen 2021-0 Yes [id number] 400mg Take 2 U nivers (MOTRIN IB) 3-22 tablets by it y of 200 mg 00:00: mouth [place] tablet 00 every 6 Medical (six) Branch hours as needed for Pain (scale 1-3). ibuprofen 2021-0 Yes [id number] 400mg Take 2 U nivers (MOTRIN IB) 3-22 tablets by it y of 200 mg 00:00: mouth [place] tablet 00 every 6 Medical (six) Branch hours as needed for Pain (scale 1-3). ibuprofen Yes [id number] 400mg Take 2 U nivers (MOTRIN IB) 3-22 tablets by it y of 200 mg 00:00: mouth [place] tablet 00 every 6 Medical (six) Branch hours as needed for Pain (scale 1-3). ibuprofen 0 Yes [id number] 400mg Take 2 U nivers (MOTRIN IB) 3-22 tablets by it y of 200 mg 00:00: mouth [place] tablet 00 every 6 Medical (six) Branch hours as needed for Pain (scale 1-3). acetaminoph 2022- No [id number] 650mg Take 2 Univers en 325 mg 3-22 03-23 tablets by ity of tablet 00:00: 04:59 mouth [place] 00 :00 every 6 Medical (six) Branch hours as needed for Pain (scale 1-3). acetaminoph 2022- No [id number] 650mg Take 2 Univers en 325 mg 3-22 03-23 tablets by ity of tablet 00:00: 04:59 mouth [place] 00 :00 every 6 Medical (six) Branch hours as needed for Pain (scale 1-3). acetaminoph 2022- No [id number] 650mg Take 2 Univers en 325 mg 3-22 03-23 tablets by ity of tablet 00:00: 04:59 mouth [place] 00 :00 every 6 Medical (six) Branch hours as needed for Pain (scale 1-3). acetaminoph 2022- No [id number] 650mg Take 2 Univers en 325 mg 3-22 03-23 tablets by ity of tablet 00:00: 04:59 mouth [place] 00 :00 every 6 Medical (six) Branch hours as needed for Pain (scale 1-3). acetaminoph 2022- No [id number] 650mg Take 2 Univers en 325 mg 3-22 03-23 tablets by ity of tablet 00:00: 04:59 mouth [place] 00 :00 every 6 Medical (six) Branch hours as needed for Pain (scale 1-3). acetaminoph 2022- No [id number] 650mg Take 2 Univers en 325 mg 3-22 03-23 tablets by ity of tablet 00:00: 04:59 mouth [place] 00 :00 every 6 Medical (six) Branch hours as needed for Pain (scale 1-3). acetaminoph 2022- No [id number] 650mg Take 2 Univers en 325 mg 3-22 03-23 tablets by ity of tablet 00:00: 04:59 mouth [place] 00 :00 every 6 Medical (six) Branch hours as needed for Pain (scale 1-3). acetaminoph 2022- No [id number] 650mg Take 2 Univers en 325 mg 3-22 03-23 tablets by ity of tablet 00:00: 04:59 mouth [place] 00 :00 every 6 Medical (six) Branch hours as needed for Pain (scale 1-3). acetaminoph 2022- No [id number] 650mg Take 2 Univers en 325 mg 3-22 03-23 tablets by ity of tablet 00:00: 04:59 mouth [place] 00 :00 every 6 Medical (six) Branch hours as needed for Pain (scale 1-3). acetaminoph 2022- No [id number] 650mg Take 2 Univers en 325 mg 3-22 03-23 tablets by ity of tablet 00:00: 04:59 mouth [place] 00 :00 every 6 Medical (six) Branch hours as needed for Pain (scale 1-3). acetaminoph 2022- No [id number] 650mg Take 2 Univers en 325 mg 3-22 03-23 tablets by ity of tablet 00:00: 04:59 mouth [place] 00 :00 every 6 Medical (six) Branch hours as needed for Pain (scale 1-3). acetaminoph 2021-0 3- No [id number] 650mg Take 2 Univers en 325 mg 3-27 10-23 tablets by ity of tablet 00:00: 04:59 mouth [place] 00 :00 every 6 Medical (six) Branch hours as needed for Pain (scale 1-3). acetaminoph 2021-0 3- No [id number] 650mg Take 2 Univers en 325 mg 3-27 10-23 tablets by ity of tablet 00:00: 04:59 mouth [place] 00 :00 every 6 Medical (six) Branch hours as needed for Pain (scale 1-3). ibuprofen 2021-0 Yes [id number] 400mg Take 2 U nivers (MOTRIN IB) 3-08 tablets by it y of 200 mg 00:00: mouth [place] tablet 00 every 6 Medical (six) Branch hours as needed for Pain (scale 1-3). phenazopyri 2021-0 Yes [id number] 100mg Take 1 Univers dine 100 mg 3-08 tablet by ity of tablet 00:00: mouth 3 [place] 00 (three) Medical times Branch daily as needed (Bladder Pain). ibuprofen 2021-0 Yes [id number] 400mg Take 2 U nivers (MOTRIN IB) 3-08 tablets by it y of 200 mg 00:00: mouth [place] tablet 00 every 6 Medical (six) Branch hours as needed for Pain (scale 1-3). phenazopyri 2021-0 Yes [id number] 100mg Take 1 Univers dine 100 mg 3-08 tablet by ity of tablet 00:00: mouth 3 [place] 00 (three) Medical times Branch daily as needed (Bladder Pain). ibuprofen 2021-0 Yes [id number] 400mg Take 2 U nivers (MOTRIN IB) 3-08 tablets by it y of 200 mg 00:00: mouth [place] tablet 00 every 6 Medical (six) Branch hours as needed for Pain (scale 1-3). phenazopyri 2021-0 Yes [id number] 100mg Take 1 Univers dine 100 mg 3-08 tablet by ity of tablet 00:00: mouth 3 [place] 00 (three) Medical times Branch daily as needed (Bladder Pain). ibuprofen 2021-0 Yes [id number] 400mg Take 2 U nivers (MOTRIN IB) 3-08 tablets by it y of 200 mg 00:00: mouth [place] tablet 00 every 6 Medical (six) Branch hours as needed for Pain (scale 1-3). phenazopyri 2022-0 Yes [id number] 100mg Take 1 Univers dine 100 mg 3-08 tablet by ity of tablet 00:00: mouth 3 [place] 00 (three) Medical times Branch daily as needed (Bladder Pain). ibuprofen 2021-0 Yes [id number] 400mg Take 2 U nivers (MOTRIN IB) 3-08 tablets by it y of 200 mg 00:00: mouth [place] tablet 00 every 6 Medical (six) Branch hours as needed for Pain (scale 1-3). phenazopyri 2021-0 Yes [id number] 100mg Take 1 Univers dine 100 mg 3-08 tablet by ity of tablet 00:00: mouth 3 [place] 00 (three) Medical times Branch daily as needed (Bladder Pain). ibuprofen 2021-0 Yes [id number] 400mg Take 2 U nivers (MOTRIN IB) 3-08 tablets by it y of 200 mg 00:00: mouth [place] tablet 00 every 6 Medical (six) Branch hours as needed for Pain (scale 1-3). phenazopyri 2021-0 Yes [id number] 100mg Take 1 Univers dine 100 mg 3-08 tablet by ity of tablet 00:00: mouth 3 [place] 00 (three) Medical times Branch daily as needed (Bladder Pain). ibuprofen 2021-0 Yes [id number] 400mg Take 2 U nivers (MOTRIN IB) 3-08 tablets by it y of 200 mg 00:00: mouth [place] tablet 00 every 6 Medical (six) Branch hours as needed for Pain (scale 1-3). phenazopyri 2-0 Yes [id number] 100mg Take 1 Univers dine 100 mg 3-08 tablet by ity of tablet 00:00: mouth 3 [place] 00 (three) Medical times Branch daily as needed (Bladder Pain). ibuprofen 2022-0 Yes [id number] 400mg Take 2 U nivers (MOTRIN IB) 3-08 tablets by it y of 200 mg 00:00: mouth [place] tablet 00 every 6 Medical (six) Branch hours as needed for Pain (scale 1-3). phenazopyri 2022-0 Yes [id number] 100mg Take 1 Univers dine 100 mg 3-08 tablet by ity of tablet 00:00: mouth 3 [place] 00 (three) Medical times Branch daily as needed (Bladder Pain). ibuprofen 2021-0 Yes [id number] 400mg Take 2 U nivers (MOTRIN IB) 3-08 tablets by it y of 200 mg 00:00: mouth [place] tablet 00 every 6 Medical (six) Branch hours as needed for Pain (scale 1-3). phenazopyri 2021-0 Yes [id number] 100mg Take 1 Univers dine 100 mg 3-08 tablet by ity of tablet 00:00: mouth 3 [place] 00 (three) Medical times Branch daily as needed (Bladder Pain). ibuprofen 2021-0 Yes [id number] 400mg Take 2 U nivers (MOTRIN IB) 3-08 tablets by it y of 200 mg 00:00: mouth [place] tablet 00 every 6 Medical (six) Branch hours as needed for Pain (scale 1-3). phenazopyri 2021-0 Yes [id number] 100mg Take 1 Univers dine 100 mg 3-08 tablet by ity of tablet 00:00: mouth 3 [place] 00 (three) Medical times Branch daily as needed (Bladder Pain). ibuprofen 2021-0 Yes [id number] 400mg Take 2 U nivers (MOTRIN IB) 3-08 tablets by it y of 200 mg 00:00: mouth [place] tablet 00 every 6 Medical (six) Branch hours as needed for Pain (scale 1-3). phenazopyri 2021-0 Yes [id number] 100mg Take 1 [facility] dine 100 mg 3-08 tablet by [facility] of tablet 00:00: mouth 3 [place] 00 (three) Medical times Branch daily as needed (Bladder Pain). ibuprofen 2021-0 Yes [id number] 400mg Take 2 [facility] (MOTRIN IB) 3-08 tablets by it y of 200 mg 00:00: mouth [place] tablet 00 every 6 Medical (six) Branch hours as needed for Pain (scale 1-3). phenazopyri 2022-0 Yes [id number] 100mg Take 1 [facility] dine 100 mg 3-08 tablet by ity of tablet 00:00: mouth 3 [place] 00 (three) Medical times Branch daily as needed (Bladder Pain). ibuprofen 2022-0 Yes [id number] 400mg Take 2 [facility] (MOTRIN IB) 3-08 tablets by it y of 200 mg 00:00: mouth [place] tablet 00 every 6 Medical (six) Branch hours as needed for Pain (scale 1-3). phenazopyri 2021- Yes [id number] 100mg Take 1 [facility] dine 100 mg 3-08 tablet by ity of tablet 00:00: mouth 3 [place] 00 (three) Medical times Branch daily as needed (Bladder Pain). acetaminoph 2022- No [id number] 650mg Take 2 [facility] en 325 mg 3-08 03-09 tablets by ity of tablet 00:00: 05:59 mouth [place] 00 :00 every 6 Medical (six) Branch hours as needed for Pain (scale 1-3). acetaminoph 2022- No [id number] 650mg Take 2 [facility] en 325 mg 3- 03-09 tablets by ity of tablet 00:00: 05:59 mouth [place] 00 :00 every 6 Medical (six) Branch hours as needed for Pain (scale 1-3). acetaminoph 2022- No [id number] 650mg Take 2 [facility] en 325 mg 3-08 03-09 tablets by ity of tablet 00:00: 05:59 mouth [place] 00 :00 every 6 Medical (six) Branch hours as needed for Pain (scale 1-3). acetaminoph 2022- No [id number] 650mg Take 2 [facility] en 325 mg 3-08 03-09 tablets by ity of tablet 00:00: 05:59 mouth [place] 00 :00 every 6 Medical (six) Branch hours as needed for Pain (scale 1-3). acetaminoph 2022- No [id number] 650mg Take 2 [facility] en 325 mg 3-08 03-09 tablets by ity of tablet 00:00: 05:59 mouth [place] 00 :00 every 6 Medical (six) Branch hours as needed for Pain (scale 1-3). acetaminoph 2022- No [id number] 650mg Take 2 [facility] en 325 mg 3-08 03-09 tablets by ity of tablet 00:00: 05:59 mouth [place] 00 :00 every 6 Medical (six) Branch hours as needed for Pain (scale 1-3). acetaminoph 2022- No [id number] 650mg Take 2 [facility] en 325 mg 3-08 03-09 tablets by ity of tablet 00:00: 05:59 mouth [place] 00 :00 every 6 Medical (six) Branch hours as needed for Pain (scale 1-3). acetaminoph 2022- No [id number] 650mg Take 2 [facility] en 325 mg 3-03 10-09 tablets by ity of tablet 00:00: 05:59 mouth [place] 00 :00 every 6 Medical (six) Branch hours as needed for Pain (scale 1-3). acetaminoph 2022- No [id number] 650mg Take 2 [facility] en 325 mg 3-03 10-09 tablets by ity of tablet 00:00: 05:59 mouth [place] 00 :00 every 6 Medical (six) Branch hours as needed for Pain (scale 1-3). acetaminoph 2022- No [id number] 650mg Take 2 [facility] en 325 mg 3-03 10-09 tablets by ity of tablet 00:00: 05:59 mouth [place] 00 :00 every 6 Medical (six) Branch hours as needed for Pain (scale 1-3). acetaminoph 2022- No [id number] 650mg Take 2 [facility] en 325 mg 3-09 tablets by ity of tablet 00:00: 05:59 mouth [place] 00 :00 every 6 Medical (six) Branch hours as needed for Pain (scale 1-3). acetaminoph 2022- No [id number] 650mg Take 2 [facility] en 325 mg 3-09 tablets by ity of tablet 00:00: 05:59 mouth [place] 00 :00 every 6 Medical (six) Branch hours as needed for Pain (scale 1-3). acetaminoph 3- No [id number] 650mg Take 2 [facility] en 325 mg 3- 03-09 tablets by ity of tablet 00:00: 05:59 mouth [place] 00 :00 every 6 Medical (six) Branch hours as needed for Pain (scale 1-3). sulfamethox 2021-0 Yes [id number] 1{tbl} Take 1 [facility] azole-trime 3-07 tablet by ity of thoprim 00:00: mouth 2 [place] (BACTRIM 00 (two) Medical DS) 800-160 times Branch mg per daily. tablet sulfamethox 2022-0 Yes [id number] 1{tbl} Take 1 [facility] azole-trime 3-07 tablet by ity of thoprim 00:00: mouth 2 [place] (BACTRIM 00 (two) Medical DS) 800-160 times Branch mg per daily. tablet sulfamethox 2022-0 Yes [id number] 1{tbl} Take 1 [facility] azole-trime 3-07 tablet by ity of thoprim 00:00: mouth 2 [place] (BACTRIM 00 (two) Medical DS) 800-160 times Branch mg per daily. tablet sulfamethox 2022-0 Yes [id number] 1{tbl} Take 1 [facility] azole-trime 3-07 tablet by ity of thoprim 00:00: mouth 2 [place] (BACTRIM 00 (two) Medical DS) 800-160 times Branch mg per daily. tablet sulfamethox 2022-0 Yes [id number] 1{tbl} Take 1 [facility] azole-trime 3-07 tablet by ity of thoprim 00:00: mouth 2 [place] (BACTRIM 00 (two) Medical DS) 800-160 times Branch mg per daily. tablet sulfamethox 2022-0 Yes [id number] 1{tbl} Take 1 [facility] azole-trime 3-07 tablet by ity of thoprim 00:00: mouth 2 [place] (BACTRIM 00 (two) Medical DS) 800-160 times Branch mg per daily. tablet sulfamethox 2022-0 Yes [id number] 1{tbl} Take 1 [facility] azole-trime 3-07 tablet by ity of thoprim 00:00: mouth 2 [place] (BACTRIM 00 (two) Medical DS) 800-160 times Branch mg per daily. tablet sulfamethox 2022-0 Yes [id number] 1{tbl} Take 1 [facility] azole-trime 3-07 tablet by ity of thoprim 00:00: mouth 2 [place] (BACTRIM 00 (two) Medical DS) 800-160 times Branch mg per daily. tablet sulfamethox 2022-0 Yes [id number] 1{tbl} Take 1 [facility] azole-trime 3-07 tablet by ity of thoprim 00:00: mouth 2 [place] (BACTRIM 00 (two) Medical DS) 800-160 times Branch mg per daily. tablet sulfamethox 2022-0 Yes [id number] 1{tbl} Take 1 [facility] azole-trime 3-07 tablet by ity of thoprim 00:00: mouth 2 [place] (BACTRIM 00 (two) Medical DS) 800-160 times Branch mg per daily. tablet sulfamethox 2022-0 Yes [id number] 1{tbl} Take 1 [facility] azole-trime 3-07 tablet by ity of thoprim 00:00: mouth 2 [place] (BACTRIM 00 (two) Medical DS) 800-160 times Branch mg per daily. tablet sulfamethox 2022-0 Yes [id number] 1{tbl} Take 1 [facility] azole-trime 3-07 tablet by ity of thoprim 00:00: mouth 2 [place] (BACTRIM 00 (two) Medical DS) 800-160 times Branch mg per daily. tablet sulfamethox 2022-0 Yes [id number] 1{tbl} Take 1 [facility] azole-trime 3-07 tablet by ity of thoprim 00:00: mouth 2 [place] (BACTRIM 00 (two) Medical DS) 800-160 times Branch mg per daily. tablet ketorolac 2022-0 Yes [id number] 10mg Take 1 [facility] le[facility] 10 mg 2-22 tablet by ity of tablet 00:00: mouth [place] 00 every 6 Medical (six) Branch hours as needed for Pain (scale 1-3). ketorolac 2022-0 Yes [id number] 10mg Take 1 [facility] [place] 10 mg 2-22 tablet by ity of tablet 00:00: mouth [place] 00 every 6 Medical (six) Branch hours as needed for Pain (scale 1-3). ketorolac 2022-0 Yes [id number] 10mg Take 1 [facility] [place] 10 mg 2-22 tablet by ity of tablet 00:00: mouth [place] 00 every 6 Medical (six) Branch hours as needed for Pain (scale 1-3). ketorolac 2022-0 Yes [id number] 10mg Take 1 [facility] [place] 10 mg 2-22 tablet by ity of tablet 00:00: mouth [place] 00 every 6 Medical (six) Branch hours as needed for Pain (scale 1-3). ketorolac 2022-0 Yes [id number] 10mg Take 1 [facility] [place] 10 mg 2-22 tablet by ity of tablet 00:00: mouth [place] 00 every 6 Medical (six) Branch hours as needed for Pain (scale 1-3). ketorolac 2022-0 Yes [id number] 10mg Take 1 [facility] [place] 10 mg 2-22 tablet by ity of tablet 00:00: mouth [place] 00 every 6 Medical (six) Branch hours as needed for Pain (scale 1-3). ketorolac 2022-0 Yes [id number] 10mg Take 1 [facility] [place] 10 mg 2-22 tablet by it[facility] of tablet 00:00: mouth [place] 00 every 6 Medical (six) Branch hours as needed for Pain (scale 1-3). ketorolac 2022-0 Yes [id number] 10mg Take 1 [facility] [place] 10 mg 2-22 tablet by it[facility] of tablet 00:00: mouth [place] 00 every 6 Medical (six) Branch hours as needed for Pain (scale 1-3). ketorolac 2022-0 Yes [id number] 10mg Take 1 [facility] [place] 10 mg 2-22 tablet by it[facility] of tablet 00:00: mouth [place] 00 every 6 Medical (six) Branch hours as needed for Pain (scale 1-3). ketorolac 2022-0 Yes [id number] 10mg Take 1 [facility] [place] 10 mg 2-22 tablet by it[facility] of tablet 00:00: mouth [place] 00 every 6 Medical (six) Branch hours as needed for Pain (scale 1-3). ketorolac 2022-0 Yes [id number] 10mg Take 1 [facility] [place] 10 mg 2-22 tablet by ity of tablet 00:00: mouth [place] 00 every 6 Medical (six) Branch hours as needed for Pain (scale 1-3). ketorolac 2022-0 Yes [id number] 10mg Take 1 [facility] [place] 10 mg 2-22 tablet by ity of tablet 00:00: mouth [place] 00 every 6 Medical (six) Branch hours as needed for Pain (scale 1-3). ketorolac 2022-0 Yes [id number] 10mg Take 1 [facility] [place] 10 mg 2-22 tablet by ity of tablet 00:00: mouth [place] 00 every 6 Medical (six) Branch hours as needed for Pain (scale 1-3). Sulfamethox Sulfamethox 2022-0 2022- No 1{table BID Sulfametho azole-Trime azole-Trime 2-15 -20 t} xazole-Tri thoprim thoprim 00:00: 00:00 methoprim 800-160 MG 800-160 MG 00 :00 800-160 MG Sulfamethox Sulfamethox 2021- No 1{table BID Sulfametho azole-Trime azole-Trime -09-27 t} xazole-Tri thoprim thoprim 00:00: 00:00 methoprim 800-160 MG 800-160 MG 00 :00 800-160 MG Sulfamethox Sulfamethox 202- No 1{table BID Sulfametho azole-Trime azole-Trime 209-27 t} xazole-Tri thoprim thoprim 00:00: 00:00 methoprim 800-160 MG 800-160 MG 00 :00 800-160 MG solifenacin 2020-08 Yes [id number] 10mg Take 1 [facility] (VESICARE) 2-17 tablet by ity of 10 mg 00:00: mouth at [place] tablet 00 bedtime. Medical Branch solifenacin 2020-08 Yes [id number] 10mg Take 1 [facility] (VESICARE) 2-17 tablet by ity of 10 mg 00:00: mouth at [place] tablet 00 bedtime. Medical Branch solifenacin 2020-08 Yes [id number] 10mg Take 1 [facility] (VESICARE) 2-17 tablet by ity of 10 mg 00:00: mouth at [place] tablet 00 bedtime. Medical Branch solifenacin 2020-08 Yes [id number] 10mg Take 1 [facility] (VESICARE) 2-17 tablet by ity of 10 mg 00:00: mouth at [place] tablet 00 bedtime. Medical Branch solifenacin 2020-08 Yes [id number] 10mg Take 1 [facility] (VESICARE) 2-17 tablet by ity of 10 mg 00:00: mouth at [place] tablet 00 bedtime. Medical Branch solifenacin 2020-08 Yes [id number] 10mg Take 1 [facility] (VESICARE) 2-17 tablet by ity of 10 mg 00:00: mouth at [place] tablet 00 bedtime. Medical Branch solifenacin 2020-08 Yes [id number] 10mg Take 1 [facility] (VESICARE) 2-17 tablet by ity of 10 mg 00:00: mouth at [place] tablet 00 bedtime. Medical Branch solifenacin 2020-08 Yes [id number] 10mg Take 1 [facility] (VESICARE) 2-17 tablet by ity of 10 mg 00:00: mouth at [place] tablet 00 bedtime. Medical Branch solifenacin 2020-08 Yes [id number] 10mg Take 1 [facility] (VESICARE) 2-17 tablet by ity of 10 mg 00:00: mouth at [place] tablet 00 bedtime. Medical Branch solifenacin 2020-08 Yes [id number] 10mg Take 1 [facility] (VESICARE) 2-17 tablet by ity of 10 mg 00:00: mouth at [place] tablet 00 bedtime. Medical Branch solifenacin 2020-08 Yes [id number] 10mg Take 1 [facility] (VESICARE) 2-17 tablet by ity of 10 mg 00:00: mouth at [place] tablet 00 bedtime. Medical Branch solifenacin 2020-08 Yes [id number] 10mg Take 1 [facility] (VESICARE) 2-17 tablet by ity of 10 mg 00:00: mouth at [place] tablet 00 bedtime. Medical Branch solifenacin 2020-08 Yes [id number] 10mg Take 1 [facility] (VESICARE) 2-17 tablet by ity of 10 mg 00:00: mouth at [place] tablet 00 bedtime. Medical Branch DULoxetine Yes TAKE 1 [facility] (Cymbalta) 8-11 CAPSULE BY [place] lt [address] 00:00: MOUTH capsule 00 EVERY 12 HOURS DIRECTED traMADoL 2019-08 Yes [id number] 50mg Take 1 [facility] (ULTRAM) 50 2-02 tablet by ity of mg tablet 00:00: mouth [place] 00 every 6 Medical (six) Branch hours as needed for Pain (scale 7-10). Indication s: acute pain methocarbam 2019-08 Yes [id number] 750mg Take 1 [facility] oL 750 mg [...] Indication s: acute pain methocarbam 2019-08 Yes [id number] 750mg Take 1 [facility] oL 750 mg [...] Indication s: acute pain methocarbam 2019-08 Yes [id number] 750mg Take 1 [facility] oL 750 mg [...] Indication s: acute pain methocarbam 2019-08 Yes [id number] 750mg Take 1 [facility] oL 750 mg [...] Indication s: acute pain methocarbam 2019-08 Yes [id number] 750mg Take 1 [facility] oL 750 mg [...] Indication s: acute pain methocarbam 2019-08 Yes [id number] 750mg Take 1 [facility] oL 750 mg [...] Indication s: acute pain methocarbam 2019- Yes [id number] 750mg Take 1 [facility] oL 750 mg [...] Indication s: acute pain methocarbam 2019-08 Yes [id number] 750mg Take 1 [facility] oL 750 mg [...] Indication s: acute pain methocarbam 2019-08 Yes [id number] 750mg Take 1 [facility] oL 750 mg [...] Indication s: acute pain methocarbam 2019- Yes [id number] 750mg Take 1 [facility] oL 750 mg [...] Indication s: acute pain methocarbam 2019- Yes [id number] 750mg Take 1 [facility] oL 750 mg [...] Indication s: acute pain methocarbam 2019- Yes [id number] 750mg Take 1 [facility] oL 750 mg [...] Indication s: acute pain methocarbam 2019- Yes [id number] 750mg Take 1 [facility] oL 750 mg 2-02 tablet by ity o f tablet 00:00: mouth [place] 00 every 6 Medical (six) Branch hours as needed (MUSCLE SPASM). cetirizine 2020-0 Yes [id number] 10mg Take 1 [facility] 10 mg 3-16 tablet by ity of tablet 00:00: mouth [place] 00 daily. Medical Branch fluticasone 2020-0 Yes [id number] 2{spray Use 2 [facility] propionate 3-16 } Sprays in ity of 50 00:00: each [place] mcg/actuati 00 nostril Medic al on nasal daily. Branch spray cetirizine 2020-0 Yes [id number] 10mg Take 1 [facility] 10 mg 3-16 tablet by ity of tablet 00:00: mouth [place] 00 daily. Medical Branch fluticasone 2020-0 Yes [id number] 2{spray Use 2 [facility] propionate 3-16 } Sprays in ity of 50 00:00: each [place] mcg/actuati 00 nostril Medic al on nasal daily. Branch spray cetirizine 2020-0 Yes [id number] 10mg Take 1 [facility] 10 mg 3-16 tablet by ity of tablet 00:00: mouth [place] 00 daily. Medical Branch fluticasone 2020-0 Yes [id number] 2{spray Use 2 [facility] propionate 3-16 } Sprays in ity of 50 00:00: each [place] mcg/actuati 00 nostril Medic al on nasal daily. Branch spray cetirizine 2020-0 Yes [id number] 10mg Take 1 [facility] 10 mg 3-16 tablet by ity of tablet 00:00: mouth [place] 00 daily. Medical Branch fluticasone 2020-0 Yes [id number] 2{spray Use 2 [facility] propionate 3-16 } Sprays in ity of 50 00:00: each [place] mcg/actuati 00 nostril Medic al on nasal daily. Branch spray cetirizine 2020-0 Yes [id number] 10mg Take 1 [facility] 10 mg 3-16 tablet by ity of tablet 00:00: mouth [place] 00 daily. Medical Branch fluticasone 2020-0 Yes [id number] 2{spray Use 2 [facility] propionate 3-16 } Sprays in ity of 50 00:00: each [place] mcg/actuati 00 nostril Medic al on nasal daily. Branch spray cetirizine 2020-0 Yes [id number] 10mg Take 1 [facility] 10 mg 3-16 tablet by ity of tablet 00:00: mouth [place] 00 daily. Medical Branch fluticasone 2020-0 Yes [id number] 2{spray Use 2 [facility] propionate 3-16 } Sprays in ity of 50 00:00: each [place] mcg/actuati 00 nostril Medic al on nasal daily. Branch spray cetirizine 2020-0 Yes [id number] 10mg Take 1 [facility] 10 mg 3-16 tablet by ity of tablet 00:00: mouth [place] 00 daily. Medical Branch fluticasone 2020-0 Yes [id number] 2{spray Use 2 [facility] propionate 3-16 } Sprays in ity of 50 00:00: each [place] mcg/actuati 00 nostril Medic al on nasal daily. Branch spray cetirizine 2020-0 Yes [id number] 10mg Take 1 [facility] 10 mg 3-16 tablet by ity of tablet 00:00: mouth [place] 00 daily. Medical Branch fluticasone 2020-0 Yes [id number] 2{spray Use 2 [facility] propionate 3-16 } Sprays in ity of 50 00:00: each [place] mcg/actuati 00 nostril Medic al on nasal daily. Branch spray cetirizine 2020-0 Yes [id number] 10mg Take 1 [facility] 10 mg 3-16 tablet by ity of tablet 00:00: mouth [place] 00 daily. Medical Branch fluticasone 2020-0 Yes [id number] 2{spray Use 2 [facility] propionate 3-16 } Sprays in ity of 50 00:00: each [place] mcg/actuati 00 nostril Medic al on nasal daily. Branch spray cetirizine 2020-0 Yes [id number] 10mg Take 1 [facility] 10 mg 3-16 tablet by ity of tablet 00:00: mouth [place] 00 daily. Medical Branch fluticasone 2020-0 Yes [id number] 2{spray Use 2 [facility] propionate 3-16 } Sprays in ity of 50 00:00: each [place] mcg/actuati 00 nostril Medic al on nasal daily. Branch spray cetirizine 2020-0 Yes [id number] 10mg Take 1 [facility] 10 mg 3-16 tablet by ity of tablet 00:00: mouth [place] 00 daily. Medical Branch fluticasone 2020-0 Yes [id number] 2{spray Use 2 [facility] propionate 3-16 } Sprays in ity of 50 00:00: each [place] mcg/actuati 00 nostril Medic al on nasal daily. Branch spray cetirizine 2020-0 Yes [id number] 10mg Take 1 [facility] 10 mg 3-16 tablet by ity of tablet 00:00: mouth [place] 00 daily. Medical Branch fluticasone 2020-0 Yes [id number] 2{spray Use 2 [facility] propionate 3-16 } Sprays in ity of 50 00:00: each [place] mcg/actuati 00 nostril Medic al on nasal daily. Branch spray cetirizine 2020-0 Yes [id number] 10mg Take 1 [facility] 10 mg 3-16 tablet by ity of tablet 00:00: mouth [place] 00 daily. Medical Branch fluticasone 2020-0 Yes [id number] 2{spray Use 2 [facility] propionate 3-16 } [...] / 15:24: Wheezing, [place] Ipratropium 00 0 [place] Refill(s) 0.167 MG/ML Inhalant Solution Acetaminoph 2019-0 Yes 100.4 F, M emoria en 325 [...] / 15:24: Wheezing, [place] Ipratropium 00 0 [place] Refill(s) 0.167 MG/ML Inhalant Solution Acetaminoph 2018-0 [...] / 15:24: Wheezing, [place] Ipratropium 00 0 [place] Refill(s) 0.167 MG/ML Inhalant Solution Acetaminoph 2019-0 Yes 100.4 F, M emoria en 325 [...] 3 mL, NEB, Me moria 0.833 MG/ML 3 RQ4H, PRN l / 15:24: Wheezing, [place] Ipratropium 00 0 [place] Refill(s) 0.167 MG/ML Inhalant Solution Acetaminoph Yes 100.4 F, M emoria en 325 MG 3-06 0 l Oral Tablet 15:24: Refill(s) H erm Bisacodyl No Notes: [facility] a 3-05 (Same As: l 20:47: Dulcolax, [place] 00 Bisco-Lax) Bisacodyl No Notes: [facility] a 3-05 (Same As: l 20:47: Dulcolax, [place] 00 Bisco-Lax) Bisacodyl No Notes: [facility] a 3-05 (Same As: l 20:47: Dulcolax, [place] 00 Bisco-Lax) Bisacodyl No Notes: [facility] a 3-05 (Same As: l 20:47: Dulcolax, [place] 00 Bisco-Lax) Tramadol No Notes: Not Mem oria 3-05 to exceed l 19:56: 400mg/day. [place] 00 (Same As: Ultram) Tramadol No Notes: Not Mem o[facility] 3-05 to exceed l 19:56: 400mg/day. [place] 00 (Same As: Ultram) Tramadol No Notes: Not Mem o[facility] 3-05 to exceed l 19:56: 400mg/day. [place] 00 (Same As: Ultram) Tramadol No Notes: Not Mem o[facility] 3-05 to exceed l 19:56: 400mg/day. [place] 00 (Same As: Ultram) heparin No Notes: [facility] 3-05 porcine l 05:55: heparin [place] heparin No Notes: [facility] 3-05 porcine l 05:55: heparin [place] heparin No Notes: [facility] 3-05 porcine l 05:55: heparin [place] heparin No Notes: [facility] 3-05 porcine l 05:55: heparin [place] 00 remove No 1 patch, [facility] patch 3-05 Route: l 03:00: TOP, [place] 00 Bedtime, Drug form: ERFILM, Start date: 10/09/18 21:00:00 ADMITTED ATTORNEYS, Duration: 30 day, Stop date: 11/07/18 21:00:00 CDT remove No 1 patch, [facility] patch 3-05 Route: l 03:00: TOP, [place] 00 Bedtime, Drug form: ERFILM, Start date: 10/09/18 21:00:00 ADMITTED ATTORNEYS, Duration: 30 day, Stop date: 11/07/18 21:00:00 CDT remove No 1 patch, [facility] patch 3-05 Route: l 03:00: TOP, [place] 00 Bedtime, Drug form: ERFILM, Start date: 10/09/18 21:00:00 ADMITTED ATTORNEYS, Duration: 30 day, Stop date: 11/07/18 21:00:00 CDT remove No 1 patch, [facility] patch 3-05 Route: l 03:00: TOP, [place] 00 Bedtime, Drug form: ERFILM, Start date: 10/09/18 21:00:00 ADMITTED ATTORNEYS, Duration: 30 day, Stop date: 11/07/18 21:00:00 CDT Robaxin No Notes: [facility] 3-04 (Same l 19:00: as:Robaxin [place] 00 ) Robaxin No Notes: [facility] 3-04 (Same l 19:00: as:Robaxin [place] 00 ) Robaxin No Notes: [facility] 3-04 (Same l 19:00: as:Robaxin [place] 00 ) Robaxin No Notes: [facility] 3-04 (Same l 19:00: as:Robaxin ) Lyrica No Notes: [facility] 3-04 (Same as: l 15:18: Lyrica) [place] 00 Lyrica No Notes: [facility] 3-04 (Same as: l 15:18: Lyrica) [place] 00 Lyrica No Notes: [facility] 3-04 (Same as: l 15:18: Lyrica) [place] 00 Lyrica No Notes: [facility] 3-04 (Same as: l 15:18: Lyrica) Miralax No Notes: [facility] 3-04 Dissolve l 15:17: in 8 oz of [place] 00 water or juice. (Same as: Miralax) Miralax No Notes: [facility] 3-04 Dissolve l 15:17: in 8 oz of [place] 00 water or juice. (Same as: Miralax) [...] Drug form: FILM, Start date: 10/09/18 9:00:00 ADMITTED ATTORNEYS, Duration: 30 day, Stop date: 11/07/18 9:00:00 CDT Lidocaine No 1 patch, [place] anny 0.05 MG/MG 3-04 Route: l Transdermal 15:00: TOP, [place] n Patch 00 Daily, Drug form: FILM, Start date: 10/09/18 9:00:00 ADMITTED ATTORNEYS, Duration: 30 day, Stop date: 11/07/18 9:00:00 CDT Lidocaine 2018-0 No 1 patch, [place] anny 0.05 MG/MG 3-04 Route: l Transdermal 15:00: TOP, [place] n Patch 00 Daily, Drug form: FILM, Start date: 10/09/18 9:00:00 ADMITTED ATTORNEYS, Duration: 30 day, Stop date: 11/07/18 9:00:00 CDT Lidocaine 2018- No 1 patch, [place] anny 0.05 MG/MG 3- Route: l Transdermal 15:00: TOP, [place] n Patch 00 Daily, Drug form: FILM, Start date: 10/09/18 9:00:00 ADMITTED ATTORNEYS, Duration: 30 day, Stop date: 11/07/18 9:00:00 [...] ___ mg sennosides, No Notes: Edison anny INTERMEDIATE 3-04 (Same as: l 03:00: Senokot) Docusate 0 No 100 mg, 1 [place] anny 3-04 cap, l 03:00: Route: PO, Drug form: CAP, Q12H, Dosing Weight 95.455, kg, Start date: 10/08/18 21:00:00 ADMITTED ATTORNEYS, Duration: 30 day, Stop date: 11/07/18 9:00:00 CDT Keppra No Notes: [facility] 3-04 (Same l 03:00: as:Keppra) [place] Saline No Notes: [facility] Flush 0.9% 3-04 (Same as: l 03:00: BD [place] Posiflush) Levetiracet No Notes: [facility] am 3-04 MEDICATION l 03:00: WASTE Product Size: 500 mg Product Wasted: ___ mg sennosides, No Notes: [place] anny INTERMEDIATE 3-04 (Same as: l 03:00: Senokot) [place] 00 Docusate No 100 mg, 1 [place] anny 3-04 cap, l 03:00: Route: PO, [place] 00 Drug form: CAP, Q12H, Dosing Weight 95.455, kg, Start date: 10/08/18 21:00:00 ADMITTED ATTORNEYS, Duration: 30 day, Stop date: 11/07/18 9:00:00 CDT Keppra No Notes: [facility] 3-04 (Same l 03:00: as:Keppra) [place] 00 Saline No Notes: [facility] Flush 0.9% 3-04 (Same as: l 03:00: BD [place] Posiflush) Levetiracet No Notes: [facility] am 3-04 MEDICATION l 03:00: WASTE Product Size: 500 mg Product Wasted: ___ mg sennosides, No Notes: [place] anny INTERMEDIATE 3-04 (Same as: l 03:00: Senokot) [place] 00 Docusate No 100 mg, 1 [place] anny 3-04 cap, l 03:00: Route: PO, [place] 00 Drug form: CAP, Q12H, Dosing Weight 95.455, kg, Start date: 10/08/18 21:00:00 ADMITTED ATTORNEYS, Duration: 30 day, Stop date: 11/07/18 9:00:00 CDT Keppra No Notes: [facility] 3-04 (Same l 03:00: as:Keppra) [place] Saline No Notes: [facility] Flush 0.9% 3-04 (Same as: l 03:00: BD [place] Posiflush) Levetiracet 2018-0 No Notes: [facility] am 10-09 MEDICATION l 03:00: WASTE [place] 00 Product Size: 500 mg Product Wasted: ___ mg sennosides, 2018-0 No Notes: [facility] anny INTERMEDIATE 3-04 (Same as: l 03:00: Senokot) Docusate 0 No 100 mg, 1 [place] anny -04 cap, l 03:00: Route: PO, Drug form: CAP, Q12H, Dosing Weight 95.455, kg, Start date: 10/08/18 21:00:00 ADMITTED ATTORNEYS, Duration: 30 day, Stop date: 11/07/18 9:00:00 CDT Vancomycin 2018-0 No 2000 mg: Me moria 3-04 infuse l 00:00: over 2.5 [place] 00 hours For adult patients only: Round to nearest 250 mg per Medical Staff approval MEDICATION WASTE Product Size: 1000 mg Product Wasted: ___ mg Vancomycin 2018-0 No 2000 mg: Me moria 3-04 infuse l 00:00: over 2.5 [place] 00 hours For adult patients only: Round to nearest 250 mg per Medical Staff approval MEDICATION WASTE Product Size: 1000 mg Product Wasted: ___ mg Vancomycin 2018-0 No 2000 mg: Me moria 3-04 infuse l 00:00: over 2.5 [place] 00 hours For adult patients only: Round to nearest 250 mg per Medical Staff approval MEDICATION WASTE Product Size: 1000 mg Product Wasted: ___ mg Vancomycin 2018-0 No 2000 mg: Me moria 3-04 infuse l 00:00: over 2.5 [place] 00 hours For adult patients only: Round to nearest 250 mg per Medical Staff approval MEDICATION WASTE Product Size: 1000 mg Product Wasted: ___ mg Artificial 2019-0 No 2 drp, [facility] Tears 10-08 Route: l 23:00: BOTH EYES, [place] 00 BID, Drug form: SOLN, Start date: 10/08/18 17:00:00 ADMITTED ATTORNEYS, Duration: 30 day, Stop date: 11/07/18 9:00:00 CDT Artificial 2019-0 No 2 drp, [facility] Tears 3-03 Route: l 23:00: BOTH EYES, [place] 00 BID, Drug form: SOLN, Start date: 10/08/18 17:00:00 ADMITTED ATTORNEYS, Duration: 30 day, Stop date: 11/07/18 9:00:00 CDT Artificial 2019-0 No 2 drp, [facility] Tears 3-03 Route: l 23:00: BOTH EYES, [place] 00 BID, Drug form: SOLN, Start date: 10/08/18 17:00:00 ADMITTED ATTORNEYS, Duration: 30 day, Stop date: 11/07/18 9:00:00 CDT Artificial 2019-0 No 2 drp, [facility] Tears 3-03 Route: l 23:00: BOTH EYES, [place] 00 BID, Drug form: SOLN, Start date: 10/08/18 17:00:00 ADMITTED ATTORNEYS, Duration: 30 day, Stop date: 11/07/18 9:00:00 CDT Vancomycin 2019-0 No 1 gm, [facility] a 3-03 Route: IV, l 22:00: Q8H, [place] 00 Dosing Weight 95.455, kg, Start date: 10/08/18 16:00:00 ADMITTED ATTORNEYS, Duration: 1 day, Stop date: 10/09/18 8:00:00 ADMITTED ATTORNEYS, ABX Indication : Surgical Prophylaxi s Vancomycin 2019-0 No 1 gm, Memori a 3-03 Route: IV, l 22:00: Q8H, [place] 00 Dosing Weight 95.455, kg, Start date: 10/08/18 16:00:00 ADMITTED ATTORNEYS, Duration: 1 day, Stop date: 10/09/18 8:00:00 ADMITTED ATTORNEYS, ABX Indication : Surgical Prophylaxi s Vancomycin 2019-0 No 1 gm, Memori a 3-03 Route: IV, l 22:00: Q8H, [place] 00 Dosing Weight 95.455, kg, Start date: 10/08/18 16:00:00 ADMITTED ATTORNEYS, Duration: 1 day, Stop date: 10/09/18 8:00:00 ADMITTED ATTORNEYS, ABX Indication : Surgical Prophylaxi s Vancomycin 2019-0 No 1 gm, Memori a 3-03 Route: IV, l 22:00: Q8H, [place] 00 Dosing Weight 95.455, kg, Start date: 10/08/18 16:00:00 ADMITTED ATTORNEYS, Duration: 1 day, Stop date: 10/09/18 8:00:00 ADMITTED ATTORNEYS, ABX Indication : Surgical Prophylaxi s Glucagon 2019-0 No 1 mg, Memoria 3 Route: IM, l 20:19: Drug form: [place] PDR/INJ, PRN, Dosing Weight 95.455, kg, PRN Blood Glucose Results, Start date: 10/08/18 14:19:00 ADMITTED ATTORNEYS, Duration: 30 day, Stop date: 11/07/18 15:18:00 CDT Dextrose 2019-0 No 25 gm, 50 Edison anny 50% Syringe 3-03 mL, Route: l 20:19: IVP, Drug Form: INJ, Dosing Weight 95.455, kg, PRN, PRN Blood Glucose Results, Start date: 10/08/18 14:19:00 ADMITTED ATTORNEYS, Duration: 30 day, Stop date: 11/07/18 15:18:00 CDT Insulin 2019-0 No 60 units) Edison anny regular 10-08 WASTE: F/P l 20:19: - Black; E [place] 00 - [facility] Trash Bin Stable for 28 days at room [facility] Expires in days from ____Date Glucagon 2018-0 No 1 mg, Memoria 10-08 Route: IM, l 20:19: Drug form: [place] 00 PDR/INJ, PRN, Dosing Weight 95.455, kg, PRN Blood Glucose Results, Start date: 10/08/18 14:19:00 ADMITTED ATTORNEYS, Duration: 30 day, Stop date: 11/07/18 15:18:00 CDT Dextrose 2019-0 No 25 gm, 50 Edison anny 50% Syringe 3-03 mL, Route: l 20:19: IVP, Drug Form: INJ, Dosing Weight 95.455, kg, PRN, PRN Blood Glucose Results, Start date: 10/08/18 14:19:00 ADMITTED ATTORNEYS, Duration: 30 day, Stop date: 11/07/18 15:18:00 CDT Insulin 2019-0 No 60 units) Edison anny regular 10-08 WASTE: F/P l 20:19: - Black; E [place] 00 - Municipal Trash Bin Stable for 28 days at room [facility] Expires in days from ____Date Glucagon 2019-0 No 1 mg, Memoria 3-03 Route: IM, l 20:19: Drug form: [place] 00 PDR/INJ, PRN, Dosing Weight 95.455, kg, PRN Blood Glucose Results, Start date: 10/08/18 14:19:00 ADMITTED ATTORNEYS, Duration: 30 day, Stop date: 11/07/18 15:18:00 CDT Dextrose 2019-0 No 25 gm, 50 Edison anny 50% Syringe 3-03 mL, Route: l 20:19: IVP, Drug Form: INJ, Dosing Weight 95.455, kg, PRN, PRN Blood Glucose Results, Start date: 10/08/18 14:19:00 ADMITTED ATTORNEYS, Duration: 30 day, Stop date: 11/07/18 15:18:00 CDT Insulin 2019-0 No 60 units) Edison anny regular - WASTE: F/P l 20:19: - Black; E [facility] Trash Bin Stable for 28 days at room [facility] Expires in days from ____Date Glucagon 2019-0 No 1 mg, Memoria 3-03 Route: IM, l 20:19: Drug form: [place] 00 PDR/INJ, PRN, Dosing Weight 95.455, kg, PRN Blood Glucose Results, Start date: 10/08/18 14:19:00 ADMITTED ATTORNEYS, Duration: 30 day, Stop date: 11/07/18 15:18:00 CDT Dextrose 2019-0 No 25 gm, 50 Edison anny 50% Syringe 3-03 mL, Route: l 20:19: IVP, Drug Form: INJ, Dosing Weight 95.455, kg, PRN, PRN Blood Glucose Results, Start date: 10/08/18 14:19:00 ADMITTED ATTORNEYS, Duration: 30 day, Stop date: 11/07/18 15:18:00 CDT Insulin 2019-0 No 60 units) Edison anny regular 3- WASTE: F/P l 20:19: - Black; E [place] [facility] Trash Bin Stable for 28 days [...] Oxide 3-03 (Same as: l 20:18: Mag-Ox [place] 00 400) Magnesium oxide 618sl=472d g elemental magnesium Dose=____m g magnesium oxide [...] 3-03 (Same as: l odium 20:18: Phos-NaK) [place] phosphate 00 Each 1.5 250 mg-280 gm [...] in a separate lumen from TPN. Potassium 2019-0 No Notes: Memori a Chloride 3-03 (Same as: l 20:18: KCL) [place] 00 Infuse over 2 hours. Calcium No Notes: Memoria Gluconate 3-03 WASTE: F/P l 20:18: - Sink; E [place] - Municipal Trash Bin Magnesium No Notes: Memori a Oxide 3-03 (Same as: l 20:18: Mag-Ox [place] 00 400) Magnesium oxide 086cx=637o g elemental magnesium Dose=____m g magnesium oxide (___mg elemental magnesium) Calcium No Notes: Memoria Carbonate 3-03 (Same As: l 500 MG 20:18: Tums) [place] Chewable 00 Calcium Tablet Carbonate 500 mg = 200 mg elemental calcium Dose = mg calcium carbonate ( mg elemental calcium) potassium No Notes: Memori a phosphate 3-03 (Same as: l 20:18: K [place] 00 Phosphate. ) Do not infuse phosphorou s concurrent ly in the same line as TPN or IVF that contains calcium. For double lumen central lines, phosphorou s may be infused in a separate lumen from TPN. 1 mMol phoshate has 1.47 mEq potassium Infuse over 4 hours potassium No Notes: Memori a phosphate-s 3-03 (Same as: l odium 20:18: Phos-NaK) [place] phosphate 00 Each 1.5 250 mg-280 gm [...] 20:18: Mag-Ox [place] 00 400) Magnesium oxide 476bb=030y g elemental magnesium Dose=____m g magnesium oxide [...] 3-03 (Same as: l odium 20:18: Phos-NaK) phosphate 00 Each 1.5 250 mg-280 gm pkt has mg-160 mg 250mg oral powder phosphorou for s. Mix reconstitut w/2.5oz ion water and stir. Magnesium No Notes: Memori a Sulfate 3- WASTE: F/P l 20:18: - Sink; E - Municipal Trash Bin sodium No Notes: Memoria phosphate 3-03 Infuse l 20:18: over 4 [place] 00 hour. Do not infuse phosphorou s concurrent ly in the same line as TPN or IVF that contains calcium. For double lumen central lines, phosphorou s may be infused in a separate lumen from TPN. Potassium No Notes: Memori a Chloride 3-03 (Same as: l 20:18: KCL) [place] 00 Infuse over 2 hours. Calcium No Notes: Memoria Gluconate 3-03 WASTE: F/P l 20:18: - Sink; E - Municipal Trash Bin Magnesium No Notes: Memori a Oxide 3-03 (Same as: l 20:18: Mag-Ox [place] 00 400) Magnesium oxide 619ed=024z g elemental magnesium Dose=____m g magnesium oxide (___mg elemental magnesium) Calcium No Notes: Memoria Carbonate 3-03 (Same As: l 500 MG 20:18: Tums) [place] Chewable 00 Calcium Tablet Carbonate 500 mg = 200 mg elemental calcium Dose = mg calcium carbonate ( mg elemental calcium) potassium No Notes: Memori a phosphate 3-03 (Same as: l 20:18: K [place] 00 Phosphate. ) Do not infuse phosphorou [...] PRN Hypertensi on, Start date: 10/08/18 14:13:00 ADMITTED ATTORNEYS, Duration: 30 day, Stop date: 11/07/18 14:12:00 CDT Hydralazine 2019-0 No Notes: Edison anny 3-03 (Same as: l 20:13: Apresoline [place] 00 ) Push over 5 minutes Labetalol 2019-0 No 10 mg, 2 Edison anny 3-03 mL, Route: l 20:13: IVP, Drug [place] form: INJ, Q4H, Dosing Weight 95.455, kg, PRN Hypertensi on, Start date: 10/08/18 14:13:00 ADMITTED ATTORNEYS, Duration: 30 day, Stop date: 11/07/18 14:12:00 CDT Hydralazine 2019-0 No Notes: Edison anny 3-03 (Same as: l 20:13: Apresoline [place] 00 ) Push over 5 minutes Labetalol 2019-0 No 10 mg, 2 Edison anny 3-03 mL, Route: l 20:13: IVP, Drug [place] 00 form: INJ, Q4H, Dosing Weight 95.455, kg, PRN Hypertensi on, Start date: 10/08/18 14:13:00 ADMITTED ATTORNEYS, Duration: 30 day, Stop date: 11/07/18 14:12:00 CDT Hydralazine 2019-0 No Notes: Edison anny 3-03 (Same as: l 20:13: Apresoline [place] 00 ) Push over 5 minutes Labetalol 2018-0 No 10 mg, 2 Edison anny 3-03 mL, Route: l 20:13: IVP, Drug [place] 00 form: INJ, Q4H, Dosing Weight 95.455, kg, PRN Hypertensi on, Start date: 10/08/18 14:13:00 ADMITTED ATTORNEYS, Duration: 30 day, Stop date: 11/07/18 14:12:00 CDT sugammadex 2019-0 No Route: IV, M emoria (ANES) 3-03 Drug form: l 18:30: SOLN, [place] 00 ONCE, Stop date: 10/08/18 12:30:00 ADMITTED ATTORNEYS sugammadex 2019-0 No Route: IV, M emoria (ANES) 3-03 Drug form: l 18:30: SOLN, [place] 00 ONCE, Stop date: 10/08/18 12:30:00 ADMITTED ATTORNEYS sugammadex 2019-0 No Route: IV, M emoria (ANES) 10-08 Drug form: l 18:30: SOLN, [place] 00 ONCE, Stop date: 10/08/18 12:30:00 ADMITTED ATTORNEYS sugammadex 2019-0 No Route: IV, Norma emoria (ANES) 10-08 Drug form: l 18:30: SOLN, [place] 00 ONCE, Stop date: 10/08/18 12:30:00 ADMITTED ATTORNEYS Hydralazine 2019-0 No 10 mg, Edison anny - Route: l 18:18: IVP, [place] 00 Q20Min, Dosing Weight 95.455, kg, PRN Elevated BP, Start date: 10/08/18 12:18:00 ADMITTED ATTORNEYS, Duration: 2 doses or times, Stop date: Limited # of times Labetalol 2019-0 No 10 mg, 2 Edison anny 3-03 mL, Route: l 18:18: IVP, Drug [place] 00 form: INJ, Q5Min, Dosing Weight 95.455, kg, PRN Elevated BP, Start date: 10/08/18 12:18:00 ADMITTED ATTORNEYS, Duration: 5 doses or times, Stop date: 10/09/18 0:00:00 ADMITTED ATTORNEYS Acetaminoph 2019-0 No 1,000 mg, M emoria en 10-08 Route: PO, l 18:18: Drug form: [place] 00 TAB, ONCE, Dosing Weight 95.455, kg, PRN Pain Score 1-3, Start date: 10/08/18 12:18:00 ADMITTED ATTORNEYS Promethazin 2019-0 No 6.25 mg, Me moria e 10-08 Route: l 18:18: IVPB, [place] 00 ONCE, Dosing Weight 95.455, kg, PRN Nausea & Vomiting, Start date: 10/08/18 12:18:00 ADMITTED ATTORNEYS Ondansetron 2019-0 No 4 mg, Memor ia 10-08 Route: l 18:18: IVP, ONCE, Dosing Weight 95.455, kg, PRN Nausea & Vomiting, Start date: 10/08/18 12:18:00 ADMITTED ATTORNEYS Dexamethaso 2019-0 No 4 mg, Memor ia ne 10-08 Route: l 18:18: IVP, ONCE, Dosing Weight 95.455, kg, PRN Nausea & Vomiting, Start date: 10/08/18 12:18:00 ADMITTED ATTORNEYS Naloxone 2019-0 No 0.4 mg, Memori a 3- Route: l 18:18: IVP, [place] 00 Q2MIN, Dosing Weight 95.455, kg, PRN Narcotic Reversal, Start date: 10/08/18 12:18:00 ADMITTED ATTORNEYS, Duration: 8 doses or times, Stop date: Limited # of times Flumazenil 2019-0 No 0.2 mg, Edison anny 3- Route: l 18:18: IVP, PRN, [place] 00 Dosing Weight 95.455, kg, PRN Benzodiaze pine Reversal, Initial dose, Start date: 10/08/18 12:18:00 ADMITTED ATTORNEYS, Duration: 30 day, Stop date: 11/07/18 13:17:00 CDT Hydromorpho 2019-0 No 0.5 mg, Mem oria ne 3 Route: l 18:18: IVP, [place] 00 Q5Min, Dosing Weight 95.455, kg, PRN Pain Score 7-10, Start date: 10/08/18 12:18:00 ADMITTED ATTORNEYS, Duration: 4 doses or times, Stop date: Limited # of times Hydralazine 2019-0 No 10 mg, Edison anny 3-03 Route: l 18:18: IVP, [place] 00 Q20Min, Dosing Weight 95.455, kg, PRN Elevated BP, Start date: 10/08/18 12:18:00 ADMITTED ATTORNEYS, Duration: 2 doses or times, Stop date: Limited # of times Labetalol 2019-0 No 10 mg, 2 Edison anny 3-03 mL, Route: l 18:18: IVP, Drug [place] 00 form: INJ, Q5Min, Dosing Weight 95.455, kg, PRN Elevated BP, Start date: 10/08/18 12:18:00 ADMITTED ATTORNEYS, Duration: 5 doses or times, Stop date: 10/09/18 0:00:00 ADMITTED ATTORNEYS Acetaminoph 2019-0 No 1,000 mg, M emoria en 3-03 Route: PO, l 18:18: Drug form: [place] 00 TAB, ONCE, Dosing Weight 95.455, kg, PRN Pain Score 1-3, Start date: 10/08/18 12:18:00 ADMITTED ATTORNEYS Promethazin 2019-0 No 6.25 mg, Me moria e 3- Route: l 18:18: IVPB, [place] 00 ONCE, Dosing Weight 95.455, kg, PRN Nausea & Vomiting, Start date: 10/08/18 12:18:00 ADMITTED ATTORNEYS Ondansetron 2019-0 No 4 mg, Memor ia 3- Route: l 18:18: IVP, ONCE, [place] 00 Dosing Weight 95.455, kg, PRN Nausea & Vomiting, Start date: 10/08/18 12:18:00 ADMITTED ATTORNEYS Dexamethaso 2019-0 No 4 mg, Memor ia ne 3 Route: l 18:18: IVP, ONCE, [place] 00 Dosing Weight 95.455, kg, PRN Nausea & Vomiting, Start date: 10/08/18 12:18:00 ADMITTED ATTORNEYS Naloxone 2019-0 No 0.4 mg, Memori a 10-08 Route: l 18:18: IVP, [place] 00 Q2MIN, Dosing Weight 95.455, kg, PRN Narcotic Reversal, Start date: 10/08/18 12:18:00 ADMITTED ATTORNEYS, Duration: 8 doses or times, Stop date: Limited # of times Flumazenil 2019-0 No 0.2 mg, Edison anny 10-08 Route: l 18:18: IVP, PRN, [place] 00 Dosing Weight 95.455, kg, PRN Benzodiaze pine Reversal, Initial dose, Start date: 10/08/18 12:18:00 ADMITTED ATTORNEYS, Duration: 30 day, Stop date: 11/07/18 13:17:00 CDT Hydromorpho 2019-0 No 0.5 mg, Mem oria ne 10-08 Route: l 18:18: IVP, [place] 00 Q5Min, Dosing Weight 95.455, kg, PRN Pain Score 7-10, Start date: 10/08/18 12:18:00 ADMITTED ATTORNEYS, Duration: 4 doses or times, Stop date: Limited # of times Hydralazine 2019-0 No 10 mg, Edison anny 3- Route: l 18:18: IVP, [place] 00 Q20Min, Dosing Weight 95.455, kg, PRN Elevated BP, Start date: 10/08/18 12:18:00 ADMITTED ATTORNEYS, Duration: 2 doses or times, Stop date: Limited # of times Labetalol 2019-0 No 10 mg, 2 Edison anny 3-03 mL, Route: l 18:18: IVP, Drug form: INJ, Q5Min, Dosing Weight 95.455, kg, PRN Elevated BP, Start date: 10/08/18 12:18:00 ADMITTED ATTORNEYS, Duration: 5 doses or times, Stop date: 10/09/18 0:00:00 ADMITTED ATTORNEYS Acetaminoph 2019-0 No 1,000 mg, M emoria en 10-08 Route: PO, l 18:18: Drug form: [place] 00 TAB, ONCE, Dosing Weight 95.455, kg, PRN Pain Score 1-3, Start date: 10/08/18 12:18:00 ADMITTED ATTORNEYS Promethazin 2019-0 No 6.25 mg, Me moria e 10-08 Route: l 18:18: IVPB, ONCE, Dosing Weight 95.455, kg, PRN Nausea & Vomiting, Start date: 10/08/18 12:18:00 ADMITTED ATTORNEYS Ondansetron 2019-0 No 4 mg, Memor ia 10-08 Route: l 18:18: IVP, ONCE, Dosing Weight 95.455, kg, PRN Nausea & Vomiting, Start date: 10/08/18 12:18:00 ADMITTED ATTORNEYS Dexamethaso 2019-0 No 4 mg, Memor ia ne 10-08 Route: l 18:18: IVP, ONCE, Dosing Weight 95.455, kg, PRN Nausea & Vomiting, Start date: 10/08/18 12:18:00 ADMITTED ATTORNEYS Naloxone 2019-0 No 0.4 mg, Memori a 10-08 Route: l 18:18: IVP, Q2MIN, Dosing Weight 95.455, kg, PRN Narcotic Reversal, Start date: 10/08/18 12:18:00 ADMITTED ATTORNEYS, Duration: 8 doses or times, Stop date: Limited # of times Flumazenil 2019-0 No 0.2 mg, Edison anny 10-08 Route: l 18:18: IVP, PRN, Dosing Weight 95.455, kg, PRN Benzodiaze pine Reversal, Initial dose, Start date: 10/08/18 12:18:00 ADMITTED ATTORNEYS, Duration: 30 day, Stop date: 11/07/18 13:17:00 CDT Hydromorpho 2019-0 No 0.5 mg, Mem oria ne 3- Route: l 18:18: IVP, [place] 00 Q5Min, Dosing Weight 95.455, kg, PRN Pain Score 7-10, Start date: 10/08/18 12:18:00 ADMITTED ATTORNEYS, Duration: 4 doses or times, Stop date: Limited # of times Hydralazine 2019-0 No 10 mg, Edison anny 3-03 Route: l 18:18: IVP, [place] 00 Q20Min, Dosing Weight 95.455, kg, PRN Elevated BP, Start date: 10/08/18 12:18:00 ADMITTED ATTORNEYS, Duration: 2 doses or times, Stop date: Limited # of times Labetalol 2019-0 No 10 mg, 2 Edison anny 3-03 mL, Route: l 18:18: IVP, Drug form: INJ, Q5Min, Dosing Weight 95.455, kg, PRN Elevated BP, Start date: 10/08/18 12:18:00 ADMITTED ATTORNEYS, Duration: 5 doses or times, Stop date: 10/09/18 0:00:00 ADMITTED ATTORNEYS Acetaminoph 2019-0 No 1,000 mg, M emoria en 10-08 Route: PO, l 18:18: Drug form: [place] 00 TAB, ONCE, Dosing Weight 95.455, kg, PRN Pain Score 1-3, Start date: 10/08/18 12:18:00 ADMITTED ATTORNEYS Promethazin 2019-0 No 6.25 mg, Me moria e 3 Route: l 18:18: IVPB, ONCE, Dosing Weight 95.455, kg, PRN Nausea & Vomiting, Start date: 10/08/18 12:18:00 ADMITTED ATTORNEYS Ondansetron 2019-0 No 4 mg, Memor ia 3- Route: l 18:18: IVP, ONCE, Dosing Weight 95.455, kg, PRN Nausea & Vomiting, Start date: 10/08/18 12:18:00 ADMITTED ATTORNEYS Dexamethaso 2019-0 No 4 mg, Memor ia ne 3- Route: l 18:18: IVP, ONCE, Dosing Weight 95.455, kg, PRN Nausea & Vomiting, Start date: 10/08/18 12:18:00 ADMITTED ATTORNEYS Naloxone 2018- No 0.4 mg, Memori a 10-08 Route: l 18:18: IVP, [place] 00 Q2MIN, Dosing Weight 95.455, kg, PRN Narcotic Reversal, Start date: 10/08/18 12:18:00 ADMITTED ATTORNEYS, Duration: 8 doses or times, Stop date: Limited # of times Flumazenil No 0.2 mg, Edison anny 10-08 Route: l 18:18: IVP, PRN, [place] 00 Dosing Weight 95.455, kg, PRN Benzodiaze pine Reversal, Initial dose, Start date: 10/08/18 12:18:00 ADMITTED ATTORNEYS, Duration: 30 day, Stop date: 11/07/18 13:17:00 CDT Hydromorpho No 0.5 mg, Mem oria ne 10-08 Route: l 18:18: IVP, [place] 00 Q5Min, Dosing Weight 95.455, kg, PRN Pain Score 7-10, Start date: 10/08/18 12:18:00 ADMITTED ATTORNEYS, Duration: 4 doses or times, Stop date: Limited # of times sugammadex No Notes: Memor ia 3-03 (Same as: l 18:00: [place]) sugammadex No Notes: Memor ia 3-03 (Same as: l 18:00: [place]) sugammadex No Notes: Memor ia 3-03 (Same as: l 18:00: [place]) sugammadex No Notes: Memor ia 3-03 (Same as: l 18:00: [place]) famotidine No Route: IV, M emoria (ANES) 10-08 Drug form: l 17:59: INJ, ONCE, Stop date: 10/08/18 11:59:00 ADMITTED ATTORNEYS metoclopram No Route: IV, Memoria anais (ANES) 10-08 Drug form: l 17:59: INJ, ONCE, Stop date: 10/08/18 11:59:00 ADMITTED ATTORNEYS ondansetron No Route: IV, Memoria (ANES) 3- Drug form: l 17:59: INJ, ONCE, Stop date: 10/08/18 11:59:00 ADMITTED ATTORNEYS famotidine 2019-0 No Route: IV, M emoria (ANES) 10-08 Drug form: l 17:59: INJ, ONCE, Stop date: 10/08/18 11:59:00 ADMITTED ATTORNEYS metoclopram 2019-0 No Route: IV, Memoria anais (ANES) 10-08 Drug form: l 17:59: INJ, ONCE, Stop date: 10/08/18 11:59:00 ADMITTED ATTORNEYS ondansetron 2019-0 No Route: IV, Memoria (ANES) 10-08 Drug form: l 17:59: INJ, ONCE, Stop date: 10/08/18 11:59:00 ADMITTED ATTORNEYS famotidine 2019-0 No Route: IV, M emoria (ANES) 10-08 Drug form: l 17:59: INJ, ONCE, Stop date: 10/08/18 11:59:00 ADMITTED ATTORNEYS metoclopram 2019-0 No Route: IV, Memoria anais (ANES) 10-08 Drug form: l 17:59: INJ, ONCE, Stop date: 10/08/18 11:59:00 ADMITTED ATTORNEYS ondansetron 2019-0 No Route: IV, Memoria (ANES) 10-08 Drug form: l 17:59: INJ, ONCE, Stop date: 10/08/18 11:59:00 ADMITTED ATTORNEYS famotidine 2018-0 No Route: IV, M emoria (ANES) 10-08 Drug form: l 17:59: INJ, ONCE, Stop date: 10/08/18 11:59:00 ADMITTED ATTORNEYS metoclopram 2019-0 No Route: IV, Memoria anais (ANES) 10-08 Drug form: l 17:59: INJ, ONCE, Stop date: 10/08/18 11:59:00 ADMITTED ATTORNEYS ondansetron 2019-0 No Route: IV, Memoria (ANES) 10-08 Drug form: l 17:59: INJ, ONCE, Stop date: 10/08/18 11:59:00 ADMITTED ATTORNEYS phenylephri 2018-0 No Route: IV, Memoria ne (ANES) 10-08 Drug form: l 17:57: INJ, ONCE, Stop date: 10/08/18 11:57:00 ADMITTED ATTORNEYS phenylephri 2018-0 No Route: IV, Memoria ne (ANES) 10-08 Drug form: l 17:57: INJ, ONCE, Stop date: 10/08/18 11:57:00 ADMITTED ATTORNEYS phenylephri 2018-0 No Route: IV, Memoria ne (ANES) 10-08 Drug form: l 17:57: INJ, ONCE, Stop date: 10/08/18 11:57:00 ADMITTED ATTORNEYS phenylephri 2018-0 No Route: IV, Memoria ne (ANES) 10-08 Drug form: l 17:57: INJ, ONCE, Stop date: 10/08/18 11:57:00 ADMITTED ATTORNEYS lidocaine 2018-0 No Route: IV, Me moria (ANES) 10-08 Drug form: l 17:51: INJ, ONCE, Stop date: 10/08/18 11:51:00 ADMITTED ATTORNEYS dexamethaso 2018-0 No Route: IV, Memoria ne (ANES) 10-08 Drug form: l 17:51: INJ, ONCE, Stop date: 10/08/18 11:51:00 ADMITTED ATTORNEYS propofol 2018-0 No Route: IV, Mem oria (ANES) 10-08 Drug form: l 17:51: INJ, ONCE, Stop date: 10/08/18 11:51:00 ADMITTED ATTORNEYS rocuronium 2018-0 No Route: IV, M emoria (ANES) 10-08 Drug form: l 17:51: INJ, ONCE, Stop date: 10/08/18 11:51:00 ADMITTED ATTORNEYS levETIRAcet 2018-0 No Route: IV, Memoria am (ANES) 10-08 Drug form: l 17:51: INJ, ONCE, Stop date: 10/08/18 11:51:00 ADMITTED ATTORNEYS fentaNYL 2019-0 No Route: IV, Mem oria (ANES) 10-08 Drug form: l 17:51: INJ, ONCE, Stop date: 10/08/18 11:51:00 ADMITTED ATTORNEYS lidocaine 2019-0 No Route: IV, Me moria (ANES) 10-08 Drug form: l 17:51: INJ, ONCE, Stop date: 10/08/18 11:51:00 ADMITTED ATTORNEYS dexamethaso 2019-0 No Route: IV, Memoria ne (ANES) 10-08 Drug form: l 17:51: INJ, ONCE, Stop date: 10/08/18 11:51:00 ADMITTED ATTORNEYS propofol 2019-0 No Route: IV, Mem oria (ANES) 10-08 Drug form: l 17:51: INJ, ONCE, Stop date: 10/08/18 11:51:00 ADMITTED ATTORNEYS rocuronium 2019-0 No Route: IV, M emoria (ANES) 10-08 Drug form: l 17:51: INJ, ONCE, Stop date: 10/08/18 11:51:00 ADMITTED ATTORNEYS levETIRAcet 2019-0 No Route: IV, Memoria am (ANES) 10-08 Drug form: l 17:51: INJ, ONCE, Stop date: 10/08/18 11:51:00 ADMITTED ATTORNEYS fentaNYL 2019-0 No Route: IV, Mem oria (ANES) 10-08 Drug form: l 17:51: INJ, ONCE, Stop date: 10/08/18 11:51:00 ADMITTED ATTORNEYS lidocaine 2019-0 No Route: IV, Me moria (ANES) 10-08 Drug form: l 17:51: INJ, ONCE, Stop date: 10/08/18 11:51:00 ADMITTED ATTORNEYS dexamethaso 2019-0 No Route: IV, Memoria ne (ANES) 10-08 Drug form: l 17:51: INJ, ONCE, Stop date: 10/08/18 11:51:00 ADMITTED ATTORNEYS propofol 2019-0 No Route: IV, Mem oria (ANES) 10-08 Drug form: l 17:51: INJ, ONCE, Stop date: 10/08/18 11:51:00 ADMITTED ATTORNEYS rocuronium 2019-0 No Route: IV, M emoria (ANES) 10-08 Drug form: l 17:51: INJ, ONCE, Stop date: 10/08/18 11:51:00 ADMITTED ATTORNEYS levETIRAcet 2019-0 No Route: IV, Memoria am (ANES) 10-08 Drug form: l 17:51: INJ, ONCE, Stop date: 10/08/18 11:51:00 ADMITTED ATTORNEYS fentaNYL 2019-0 No Route: IV, Mem oria (ANES) 10-08 Drug form: l 17:51: INJ, ONCE, Stop date: 10/08/18 11:51:00 ADMITTED ATTORNEYS lidocaine 2019-0 No Route: IV, Me moria (ANES) 10-08 Drug form: l 17:51: INJ, ONCE, Stop date: 10/08/18 11:51:00 ADMITTED ATTORNEYS dexamethaso 2018-0 No Route: IV, Memoria ne (ANES) 10-08 Drug form: l 17:51: INJ, ONCE, Stop date: 10/08/18 11:51:00 ADMITTED ATTORNEYS propofol 2019-0 No Route: IV, Mem oria (ANES) 10-08 Drug form: l 17:51: INJ, ONCE, Stop date: 10/08/18 11:51:00 ADMITTED ATTORNEYS rocuronium 2018-0 No Route: IV, M emoria (ANES) 10-08 Drug form: l 17:51: INJ, ONCE, Stop date: 10/08/18 11:51:00 ADMITTED ATTORNEYS levETIRAcet 2018-0 No Route: IV, Memoria am (ANES) 10-08 Drug form: l 17:51: INJ, ONCE, Stop date: 10/08/18 11:51:00 ADMITTED ATTORNEYS fentaNYL 2019-0 No Route: IV, Mem oria (ANES) 10-08 Drug form: l 17:51: INJ, ONCE, Stop date: 10/08/18 11:51:00 ADMITTED ATTORNEYS propofol 2019-0 No Route: IV, Mem oria (ANES) 10 10-08 Drug form: l mg 16:30: INJ, Start date: 10/08/18 10:30:00 ADMITTED ATTORNEYS, Stop date: 10/08/18 11:30:00 ADMITTED ATTORNEYS remifentani 2019-0 No Route: IV, Memoria l (ANES) 1 10-08 Drug form: l mg 16:30: INJ, Start date: 10/08/18 10:30:00 ADMITTED ATTORNEYS, Stop date: 10/08/18 11:30:00 ADMITTED ATTORNEYS propofol 2019-0 No Route: IV, Mem oria (ANES) 10 10-08 Drug form: l mg 16:30: INJ, Start [place] 00 date: 10/08/18 10:30:00 ADMITTED ATTORNEYS, Stop date: 10/08/18 11:30:00 ADMITTED ATTORNEYS remifentani 2019-0 No Route: IV, Memoria l (ANES) 1 10-08 Drug form: l mg 16:30: INJ, Start [place] 00 date: 10/08/18 10:30:00 ADMITTED ATTORNEYS, Stop date: 10/08/18 11:30:00 ADMITTED ATTORNEYS propofol 2019-0 No Route: IV, Mem oria (ANES) 10 10-08 Drug form: l mg 16:30: INJ, Start date: 10/08/18 10:30:00 ADMITTED ATTORNEYS, Stop date: 10/08/18 11:30:00 ADMITTED ATTORNEYS remifentani 2019-0 No Route: IV, Memoria l (ANES) 1 10-08 Drug form: l mg 16:30: INJ, Start date: 10/08/18 10:30:00 ADMITTED ATTORNEYS, Stop date: 10/08/18 11:30:00 ADMITTED ATTORNEYS propofol 2019-0 No Route: IV, Mem oria (ANES) 10 10-08 Drug form: l mg 16:30: INJ, Start [place] 00 date: 10/08/18 10:30:00 ADMITTED ATTORNEYS, Stop date: 10/08/18 11:30:00 ADMITTED ATTORNEYS remifentani 2019-0 No Route: IV, Memoria l (ANES) 1 10-08 Drug form: l mg 16:30: INJ, Start [place] 00 date: 10/08/18 10:30:00 ADMITTED ATTORNEYS, Stop date: 10/08/18 11:30:00 ADMITTED ATTORNEYS Sodium 2019-0 No Route: IV, Memor ia Chloride 3- Drug form: l 0.9% IV 16:25: INJ, Start Herm ree (ANES) date: mL + 10/08/18 vancomycin 10:25:00 (ANES) 1500 ADMITTED ATTORNEYS, Stop mg date: 10/08/18 11:25:00 ADMITTED ATTORNEYS Sodium 2019-0 No Route: IV, Memor ia Chloride 3- Drug form: l 0.9% IV 16:25: INJ, Start Herm ree (ANES) date: mL + 10/08/18 vancomycin 10:25:00 (ANES) 1500 ADMITTED ATTORNEYS, Stop mg date: 10/08/18 11:25:00 ADMITTED ATTORNEYS Sodium 2019-0 No Route: IV, Memor ia Chloride 3-03 Drug form: l 0.9% IV 16:25: INJ, Start Herm ree (ANES) date: mL + 10/08/18 vancomycin 10:25:00 (ANES) 1500 ADMITTED ATTORNEYS, Stop mg date: 10/08/18 11:25:00 ADMITTED ATTORNEYS Sodium 2019-0 No Route: IV, Memor ia Chloride 3-03 Drug form: l 0.9% IV 16:25: INJ, Start Herm ree (ANES) date: mL + 10/08/18 vancomycin 10:25:00 (ANES) 1500 ADMITTED ATTORNEYS, Stop mg date: 10/08/18 11:25:00 ADMITTED ATTORNEYS Isolyte S 2019-0 No Route: IV, Me moria PH 7.4 3-03 Total l (ANES) 1000 16:09: Volume: Her salas mL 00 1,000, Start date: 10/08/18 10:09:00 ADMITTED ATTORNEYS, Stop date: 10/08/18 11:09:00 ADMITTED ATTORNEYS Isolyte S 2019-0 No Route: IV, Me moria PH 7.4 3-03 Total l (ANES) 1000 16:09: Volume: Her sal[place] mL 00 1,000, Start date: 10/08/18 10:09:00 ADMITTED ATTORNEYS, Stop date: 10/08/18 11:09:00 ADMITTED ATTORNEYS Isolyte S 2019-0 No Route: IV, Me moria PH 7.4 3-03 Total l (ANES) 1000 16:09: Volume: Her salas mL 00 1,000, Start date: 10/08/18 10:09:00 ADMITTED ATTORNEYS, Stop date: 10/08/18 11:09:00 ADMITTED ATTORNEYS Isolyte S 2019-0 No Route: IV, Me moria PH 7.4 3-03 Total l (ANES) 1000 16:09: Volume: Her sal[place] mL 00 1,000, Start date: 10/08/18 10:09:00 ADMITTED ATTORNEYS, Stop date: 10/08/18 11:09:00 ADMITTED ATTORNEYS Saline 2019-0 No Notes: Memoria Flush 0.9% 3-03 (Same as: l 15:57: BD [place] 00 Posiflush) Albuterol 2019-0 No 3 ml, Memoria 0.833 MG/ML 10-08 Route: l / 15:57: NEB, Drug [place] Ipratropium 00 Form: [place] SOLN, 0.167 MG/ML Dosing Inhalant Weight Solution 95.455, kg, RQ4H, PRN Wheezing, Start date: 10/08/18 9:57:00 ADMITTED ATTORNEYS, Duration: 30 day, Stop date: 11/07/18 9:56:00 CDT Labetalol 2019-0 No 10 mg, 2 Edison anny 3-03 mL, Route: l 15:57: IVP, Drug form: INJ, Q15Min, Dosing Weight 95.455, kg, PRN Hypertensi on, Start date: 10/08/18 9:57:00 ADMITTED ATTORNEYS, Duration: 30 day, Stop date: 11/07/18 10:56:00 CDT Hydralazine 2018-0 No 20 mg, 1 Me moria 3-03 mL, Route: l 15:57: IVP, Drug form: INJ, Q4H, Dosing Weight 95.455, kg, PRN Hypertensi on, Start date: 10/08/18 9:57:00 ADMITTED ATTORNEYS, Duration: 30 day, Stop date: 11/07/18 9:56:00 CDT Sodium 2018-0 No 1,000 mL, Memori a Chloride 10-08 Rate: 50 l 0.9% IV 15:57: ml/hr, [place] 1,000 mL 00 Infuse over: 20 hr, Route: IV, Dosing Weight 95.455 kg, Total Volume: 1,000, Start date: 10/08/18 9:57:00 ADMITTED ATTORNEYS, Duration: 30 day, Stop date: 11/07/18 9:56:00 CDT, 2.16, m2 Levetiracet 2018-0 No Notes: Edison anny am 10-08 Same as l 15:57: Keppra Mix [place] 00 with 100 mL NS, LR or D5W MEDICATION WASTE Product Size: 500 mg Product Wasted: ___ mg Acetaminoph 2018-0 No 100.4 F, M emoria en 03 Start l 15:57: date: [place] 00 10/08/18 9:57:00 ADMITTED ATTORNEYS, Duration: 30 day, Stop date: 11/07/18 9:56:00 CDT Ondansetron 2019-0 No Notes: Memoria 3- MEDICATION l 15:57: WASTE Product Size: 4 mg Product Wasted: ___ mg Bisacodyl 2019-0 No 10 mg, 1 Edison anny 3-03 supp, l 15:57: Route: SC, Drug form: SUPP, Daily, Dosing Weight 95.455, kg, PRN Constipati on, Start date: 10/08/18 9:57:00 ADMITTED ATTORNEYS, Duration: 30 day, Stop date: 11/07/18 9:56:00 CDT Saline 2019-0 No Notes: Memoria Flush 0.9% 10-08 (Same as: l 15:57: BD Posiflush) Albuterol 2019-0 No 3 ml, Memoria 0.833 MG/ML 10-08 Route: l / 15:57: NEB, Drug Ipratropium 00 Form: [place] SOLN, 0.167 MG/ML Dosing Inhalant Weight Solution 95.455, kg, RQ4H, PRN Wheezing, Start date: 10/08/18 9:57:00 ADMITTED ATTORNEYS, Duration: 30 day, Stop date: 11/07/18 9:56:00 CDT Labetalol 2019-0 No 10 mg, 2 Edison anny 3-03 mL, Route: l 15:57: IVP, Drug form: INJ, Q15Min, Dosing Weight 95.455, kg, PRN Hypertensi on, Start date: 10/08/18 9:57:00 ADMITTED ATTORNEYS, Duration: 30 day, Stop date: 11/07/18 10:56:00 CDT Hydralazine 2018-0 No 20 mg, 1 Me moria 3-03 mL, Route: l 15:57: IVP, Drug form: INJ, Q4H, Dosing Weight 95.455, kg, PRN Hypertensi on, Start date: 10/08/18 9:57:00 ADMITTED ATTORNEYS, Duration: 30 day, Stop date: 11/07/18 9:56:00 CDT Sodium 2019-0 No 1,000 mL, Memori a Chloride 3-03 Rate: 50 l 0.9% IV 15:57: ml/hr, [place] 1,000 mL 00 Infuse over: 20 hr, Route: IV, Dosing Weight 95.455 kg, Total Volume: 1,000, Start date: 10/08/18 9:57:00 ADMITTED ATTORNEYS, Duration: 30 day, Stop date: 11/07/18 9:56:00 CDT, 2.16, m2 Levetiracet 2018-0 No Notes: Edison anny am 10-08 Same as l 15:57: Keppra Mix with 100 mL NS, LR or D5W MEDICATION WASTE Product Size: 500 mg Product Wasted: ___ mg Acetaminoph No 100.4 F, M emoria en 10-08 Start l 15:57: date: [place] 00 10/08/18 9:57:00 ADMITTED ATTORNEYS, Duration: 30 day, Stop date: 11/07/18 9:56:00 CDT Ondansetron 2018-0 No Notes: Memoria - MEDICATION l 15:57: WASTE Product Size: 4 mg Product Wasted: ___ mg Bisacodyl 0 No 10 mg, 1 Eidson anny 10-08 supp, l 15:57: Route: SC, Drug form: SUPP, Daily, Dosing Weight 95.455, kg, PRN Constipati on, Start date: 10/08/18 9:57:00 ADMITTED ATTORNEYS, Duration: 30 day, Stop date: 11/07/18 9:56:00 CDT Saline 2018-0 No Notes: Memoria Flush 0.9% 10-08 (Same as: l 15:57: BD Posiflush) Albuterol 0 No 3 ml, Memoria 0.833 MG/ML 10-08 Route: l / 15:57: NEB, Drug Ipratropium Form: [place] SOLN, 0.167 MG/ML Dosing Inhalant Weight Solution 95.455, kg, RQ4H, PRN Wheezing, Start date: 10/08/18 9:57:00 ADMITTED ATTORNEYS, Duration: 30 day, Stop date: 11/07/18 9:56:00 CDT Labetalol 0 No 10 mg, 2 Edison anny 3-03 mL, Route: l 15:57: IVP, Drug form: INJ, Q15Min, Dosing Weight 95.455, kg, PRN Hypertensi on, Start date: 10/08/18 9:57:00 ADMITTED ATTORNEYS, Duration: 30 day, Stop date: 11/07/18 10:56:00 CDT Hydralazine No 20 mg, 1 Me moria 3-03 mL, Route: l 15:57: IVP, Drug form: INJ, Q4H, Dosing Weight 95.455, kg, PRN Hypertensi on, Start date: 10/08/18 9:57:00 ADMITTED ATTORNEYS, Duration: 30 day, Stop date: 11/07/18 9:56:00 CDT Sodium No 1,000 mL, Memori a Chloride 10-08 Rate: 50 l 0.9% IV 15:57: ml/hr, [place] 1,000 mL 00 Infuse over: 20 hr, Route: IV, Dosing Weight 95.455 kg, Total Volume: 1,000, Start date: 10/08/18 9:57:00 ADMITTED ATTORNEYS, Duration: 30 day, Stop date: 11/07/18 9:56:00 CDT, 2.16, m2 Levetiracet No Notes: Edison anny am 03 Same as l 15:57: Keppra Mix with 100 mL NS, LR or D5W MEDICATION WASTE Product Size: 500 mg Product Wasted: ___ mg Acetaminoph No 100.4 F, M emoria en 03 Start l 15:57: date: [place] 00 10/08/18 9:57:00 ADMITTED ATTORNEYS, Duration: 30 day, Stop date: 11/07/18 9:56:00 CDT Ondansetron 2018-0 No Notes: Memoria - MEDICATION l 15:57: WASTE Product Size: 4 mg Product Wasted: ___ mg Bisacodyl 0 No 10 mg, 1 Edison anny 3-03 supp, l 15:57: Route: SC, Drug form: SUPP, Daily, Dosing Weight 95.455, kg, PRN Constipati on, Start date: 10/08/18 9:57:00 ADMITTED ATTORNEYS, Duration: 30 day, Stop date: 11/07/18 9:56:00 CDT Saline 2018-0 No Notes: Memoria Flush 0.9% 10-08 (Same as: l 15:57: BD [place] 00 Posiflush) Albuterol 2018-0 No 3 ml, Memoria 0.833 MG/ML 10-08 Route: l / 15:57: NEB, Drug [place] Ipratropium 00 Form: [place] SOLN, 0.167 MG/ML Dosing Inhalant Weight Solution 95.455, kg, RQ4H, PRN Wheezing, Start date: 10/08/18 9:57:00 ADMITTED ATTORNEYS, Duration: 30 day, Stop date: 11/07/18 9:56:00 CDT Labetalol 0 No 10 mg, 2 Edison anny 3-03 mL, Route: l 15:57: IVP, Drug form: INJ, Q15Min, Dosing Weight 95.455, kg, PRN Hypertensi on, Start date: 10/08/18 9:57:00 ADMITTED ATTORNEYS, Duration: 30 day, Stop date: 11/07/18 10:56:00 CDT Hydralazine 0 No 20 mg, 1 Me moria 3-03 mL, Route: l 15:57: IVP, Drug form: INJ, Q4H, Dosing Weight 95.455, kg, PRN Hypertensi on, Start date: 10/08/18 9:57:00 ADMITTED ATTORNEYS, Duration: 30 day, Stop date: 11/07/18 9:56:00 CDT Sodium 2018-0 No 1,000 mL, Memori a Chloride 10-08 Rate: 50 l 0.9% IV 15:57: ml/hr, [place] 1,000 mL 00 Infuse over: 20 hr, Route: IV, Dosing Weight 95.455 kg, Total Volume: 1,000, Start date: 10/08/18 9:57:00 ADMITTED ATTORNEYS, Duration: 30 day, Stop date: 11/07/18 9:56:00 CDT, 2.16, m2 Levetiracet 2018-0 No Notes: Edison anny am 03 Same as l 15:57: Keppra Mix [place] 00 with 100 mL NS, LR or D5W MEDICATION WASTE Product Size: 500 mg Product Wasted: ___ mg Acetaminoph 2019-0 No 100.4 F, M emoria en 10-08 Start l 15:57: date: [place] 00 10/08/18 9:57:00 ADMITTED ATTORNEYS, Duration: 30 day, Stop date: 11/07/18 9:56:00 CDT Ondansetron 2018-0 No Notes: Memoria 3- MEDICATION l 15:57: WASTE Product Size: 4 mg Product Wasted: ___ mg Bisacodyl 2018-0 No 10 mg, 1 Edison anny - supp, l 15:57: Route: SC, [place] 00 Drug form: SUPP, Daily, Dosing Weight 95.455, kg, PRN Constipati on, Start date: 10/08/18 9:57:00 ADMITTED ATTORNEYS, Duration: 30 day, Stop date: 11/07/18 9:56:00 CDT Zofran 2018-0 No 4 mg, Memoria 10-08 Route: l 15:09: IVP, Drug form: INJ, ONCE, Dosing Weight 95.455, kg, Priority: STAT, Start date: 10/08/18 9:09:00 ADMITTED ATTORNEYS, Stop date: 10/08/18 9:09:00 ADMITTED ATTORNEYS Morphine 2018-0 No 4 mg, Memoria - Route: l 15:09: IVP, ONCE, Dosing Weight 95.455, kg, Priority: STAT, Start date: 10/08/18 9:09:00 ADMITTED ATTORNEYS, Stop date: 10/08/18 9:09:00 ADMITTED ATTORNEYS Sodium 2019-0 No 1,000 mL, Memori a Chloride 10-08 Infuse l 0.9% 15:09: Over: 1 [place] (Bolus) IV 00 hr, Route: IV, ONCE, Priority: STAT, Dosing Weight 95.455 kg, Start date: 10/08/18 9:09:00 ADMITTED ATTORNEYS, Stop date: 10/08/18 9:09:00 ADMITTED ATTORNEYS Zofran 2019-0 No 4 mg, Memoria - Route: l 15:09: IVP, Drug form: INJ, ONCE, Dosing Weight 95.455, kg, Priority: STAT, Start date: 10/08/18 9:09:00 ADMITTED ATTORNEYS, Stop date: 10/08/18 9:09:00 ADMITTED ATTORNEYS Morphine 2019-0 No 4 mg, Memoria 3-03 Route: l 15:09: IVP, ONCE, [place] 00 Dosing Weight 95.455, kg, Priority: STAT, Start date: 10/08/18 9:09:00 ADMITTED ATTORNEYS, Stop date: 10/08/18 9:09:00 ADMITTED ATTORNEYS Sodium 2019-0 No 1,000 mL, Memori a Chloride 3-03 Infuse l 0.9% 15:09: Over: 1 [place] ([place]) IV 00 hr, Route: IV, ONCE, Priority: STAT, Dosing Weight 95.455 kg, Start date: 10/08/18 9:09:00 ADMITTED ATTORNEYS, Stop date: 10/08/18 9:09:00 ADMITTED ATTORNEYS Zofran 2019-0 No 4 mg, Memoria 3-03 Route: l 15:09: IVP, Drug [place] 00 form: INJ, ONCE, Dosing Weight 95.455, kg, Priority: STAT, Start date: 10/08/18 9:09:00 ADMITTED ATTORNEYS, Stop date: 10/08/18 9:09:00 ADMITTED ATTORNEYS Morphine 2019-0 No 4 mg, Memoria 3-03 Route: l 15:09: IVP, ONCE, [place] 00 Dosing Weight 95.455, kg, Priority: STAT, Start date: 10/08/18 9:09:00 ADMITTED ATTORNEYS, Stop date: 10/08/18 9:09:00 ADMITTED ATTORNEYS Sodium 2019-0 No 1,000 mL, Memori a Chloride 3-03 Infuse l 0.9% 15:09: Over: 1 [place] ([place]) IV 00 hr, Route: IV, ONCE, Priority: STAT, Dosing Weight 95.455 kg, Start date: 10/08/18 9:09:00 ADMITTED ATTORNEYS, Stop date: 10/08/18 9:09:00 ADMITTED ATTORNEYS Zofran 2019-0 No 4 mg, Memoria 3-03 Route: l 15:09: IVP, Drug [place] 00 form: INJ, ONCE, Dosing Weight 95.455, kg, Priority: STAT, Start date: 10/08/18 9:09:00 ADMITTED ATTORNEYS, Stop date: 10/08/18 9:09:00 ADMITTED ATTORNEYS Morphine 2019-0 No 4 mg, Memoria 3-03 Route: l 15:09: IVP, ONCE, [place] 00 Dosing Weight 95.455, kg, Priority: STAT, Start date: 10/08/18 9:09:00 ADMITTED ATTORNEYS, Stop date: 10/08/18 9:09:00 ADMITTED ATTORNEYS Sodium 2019-0 No 1,000 mL, Memori a Chloride 3-03 Infuse l 0.9% 15:09: Over: 1 [place] ([place]) IV 00 hr, Route: IV, ONCE, Priority: STAT, Dosing Weight 95.455 kg, Start date: 10/08/18 9:09:00 ADMITTED ATTORNEYS, Stop date: 10/08/18 9:09:00 ADMITTED ATTORNEYS Sulfamethox Sulfamethox Yes Parminder not Common azole-TMP azole-TMP Velez defined S pirit DS DS - [facility] Tramadol Tramadol Yes Parminder 1 tablet C ommon HCl HCl Velez as needed Spirit - [facility] Naproxen Naproxen Yes Parminder 1 tablet C ommon Velez with food Spirit or milk as - [facility] Gabapentin Gabapentin No 1{capsu Gabapentin 300 MG 300 MG le} 300 MG Sulfamethox Sulfamethox No Sulfametho azole-TMP azole-TMP xazole-TMP DS DS DS Naproxen Naproxen No BID Naproxen 500 MG 500 MG 500 MG traMADol traMADol No 1{table QD traMADol HCl 50 MG HCl 50 MG t_as_ne HCl 50 MG eded} Sulfamethox Sulfamethox No Sulfametho azole-TMP azole-TMP xazole-TMP DS DS DS Naproxen Naproxen No BID Naproxen 500 MG 500 MG 500 MG Methocarbam Methocarbam No Methocarba ol 750 MG ol 750 MG mol 750 MG DULoxetine DULoxetine No DULoxetine HCl 30 MG HCl 30 MG HCl 30 MG traMADol traMADol No 1{table QD traMADol HCl 50 MG HCl 50 MG t_as_ne HCl 50 MG eded} Methocarbam Methocarbam No Methocarba ol 750 MG ol 750 MG mol 750 MG Sulfamethox Sulfamethox No Sulfametho azole-TMP azole-TMP xazole-TMP DS DS DS Naproxen Naproxen No BID Naproxen 500 MG 500 MG 500 MG DULoxetine DULoxetine No DULoxetine HCl 30 MG HCl 30 MG HCl 30 MG traMADol traMADol No 1{table QD traMADol HCl 50 MG HCl 50 MG t_as_ne HCl 50 MG eded} Methocarbam Methocarbam No Methocarba ol 750 MG ol 750 MG mol 750 MG Sulfamethox Sulfamethox No Sulfametho azole-TMP azole-TMP xazole-TMP DS DS DS Naproxen Naproxen No BID Naproxen 500 MG 500 MG 500 MG DULoxetine DULoxetine No DULoxetine HCl 30 MG HCl 30 MG HCl 30 MG Naproxen Naproxen No BID Naproxen 500 MG 500 MG 500 MG Sulfamethox Sulfamethox No Sulfametho azole-TMP azole-TMP xazole-TMP DS DS DS DULoxetine DULoxetine No DULoxetine HCl 30 MG HCl 30 MG HCl 30 MG traMADol traMADol No 1{table QD traMADol HCl 50 MG HCl 50 MG t_as_ne HCl 50 MG eded} Methocarbam Methocarbam No Methocarba ol 750 MG ol 750 MG mol 750 MG Naproxen Naproxen No BID Naproxen 500 MG 500 MG 500 MG Sulfamethox Sulfamethox No Sulfametho azole-TMP azole-TMP xazole-TMP DS DS DS DULoxetine DULoxetine No DULoxetine HCl 30 MG HCl 30 MG HCl 30 MG traMADol traMADol No 1{table QD traMADol HCl 50 MG HCl 50 MG t_as_ne HCl 50 MG eded} Methocarbam Methocarbam No Methocarba ol 750 MG ol 750 MG mol 750 MG Naproxen Naproxen No BID Naproxen 500 MG 500 MG 500 MG Sulfamethox Sulfamethox No Sulfametho azole-TMP azole-TMP xazole-TMP DS DS DS DULoxetine DULoxetine No DULoxetine HCl 30 MG HCl 30 MG HCl 30 MG traMADol traMADol No 1{table QD traMADol HCl 50 MG HCl 50 MG t_as_ne HCl 50 MG eded} Methocarbam Methocarbam No Methocarba ol 750 MG ol 750 MG mol 750 MG Naproxen Naproxen No BID Naproxen 500 MG 500 MG 500 MG Sulfamethox Sulfamethox No Sulfametho azole-TMP azole-TMP xazole-TMP DS DS DS Methocarbam Methocarbam No Methocarba ol 750 MG ol 750 MG mol 750 MG traMADol traMADol No 1{table QD traMADol HCl 50 MG HCl 50 MG t_as_ne HCl 50 MG eded} DULoxetine DULoxetine No DULoxetine HCl 30 MG HCl 30 MG HCl 30 MG Naproxen Naproxen No BID Naproxen 500 MG 500 MG 500 MG Sulfamethox Sulfamethox No Sulfametho azole-TMP azole-TMP xazole-TMP DS DS DS Methocarbam Methocarbam No Methocarba ol 750 MG ol 750 MG mol 750 MG traMADol traMADol No 1{table QD traMADol HCl 50 MG HCl 50 MG t_as_ne HCl 50 MG eded} DULoxetine DULoxetine No DULoxetine HCl 30 MG HCl 30 MG HCl 30 MG Cetirizine Cetirizine No 1{table QD Cetirizine HCl 10 MG HCl 10 MG t} HCl 10 MG Gabapentin Gabapentin No 1{capsu Gabapentin 300 MG 300 MG le} 300 MG Oxybutynin Oxybutynin No 1{table Oxybutynin Chloride 5 Chloride 5 t} Chloride 5 MG MG MG Ibuprofen Ibuprofen No QID Ibuprofen 200 MG 200 MG 200 MG Tamsulosin Tamsulosin No 1{capsu Tamsulosin HCl 0.4 MG HCl 0.4 MG le} HCl 0.4 MG Solifenacin Solifenacin No 1{table QD Solifenaci Succinate Succinate t} n 10 MG 10 MG Succinate 10 MG Naproxen Naproxen No BID Naproxen 500 MG 500 MG 500 MG Acetaminoph Acetaminoph No 1{table QID Acetaminop en 325 MG en 325 MG t_as_ne hen 325 MG eded} tiZANidine tiZANidine No 1{capsu TID tiZANidine HCl 4 MG HCl 4 MG le_as_n HCl 4 MG eeded} Methocarbam Methocarbam No Methocarba ol 750 MG ol 750 MG mol 750 MG traMADol traMADol No 1{table QD traMADol HCl 50 MG HCl 50 MG t_as_ne HCl 50 MG eded} Phenazopyri Phenazopyri No 1{table TID Phenazopyr dine HCl dine HCl t_after idine HCl 100 MG 100 MG _meals} 100 MG DULoxetine DULoxetine No DULoxetine HCl 20 MG HCl 20 MG HCl 20 MG Sulfamethox Sulfamethox No Sulfametho azole-TMP azole-TMP xazole-TMP DS DS DS Oxybutynin Oxybutynin No 1{table Oxybutynin Chloride 5 Chloride 5 t} Chloride 5 MG MG MG Cetirizine Cetirizine No 1{table QD Cetirizine HCl 10 MG HCl 10 MG t} HCl 10 MG Solifenacin Solifenacin No 1{table QD Solifenaci Succinate Succinate t} n 10 MG 10 MG Succinate 10 MG traMADol traMADol No 1{table QD traMADol HCl 50 MG HCl 50 MG t_as_ne HCl 50 MG eded} Sulfamethox Sulfamethox No Sulfametho azole-TMP azole-TMP xazole-TMP DS DS DS Phenazopyri Phenazopyri No 1{table TID Phenazopyr dine HCl dine HCl t_after idine HCl 100 MG 100 MG _meals} 100 MG Tamsulosin Tamsulosin No 1{capsu Tamsulosin HCl 0.4 MG HCl 0.4 MG le} HCl 0.4 MG Naproxen Naproxen No BID Naproxen 500 MG 500 MG 500 MG Acetaminoph Acetaminoph No 1{table QID Acetaminop en 325 MG en 325 MG t_as_ne hen 325 MG eded} Ibuprofen Ibuprofen No QID Ibuprofen 200 MG 200 MG 200 MG DULoxetine DULoxetine No DULoxetine HCl 20 MG HCl 20 MG HCl 20 MG tiZANidine tiZANidine No 1{capsu TID tiZANidine HCl 4 MG HCl 4 MG le_as_n HCl 4 MG eeded} Methocarbam Methocarbam No Methocarba ol 750 MG ol 750 MG mol 750 MG Gabapentin Gabapentin No 1{capsu Gabapentin 300 MG 300 MG le} 300 MG Oxybutynin Oxybutynin No 1{table Oxybutynin Chloride 5 Chloride 5 t} Chloride 5 MG MG MG Cetirizine Cetirizine No 1{table QD Cetirizine HCl 10 MG HCl 10 MG t} HCl 10 MG Solifenacin Solifenacin No 1{table QD Solifenaci Succinate Succinate t} n 10 MG 10 MG Succinate 10 MG traMADol traMADol No 1{table QD traMADol HCl 50 MG HCl 50 MG t_as_ne HCl 50 MG eded} Sulfamethox Sulfamethox No Sulfametho azole-TMP azole-TMP xazole-TMP DS DS DS Phenazopyri Phenazopyri No 1{table TID Phenazopyr dine HCl dine HCl t_after idine HCl 100 MG 100 MG _meals} 100 MG Tamsulosin Tamsulosin No 1{capsu Tamsulosin HCl 0.4 MG HCl 0.4 MG le} HCl 0.4 MG Naproxen Naproxen No BID Naproxen 500 MG 500 MG 500 MG Acetaminoph Acetaminoph No 1{table QID Acetaminop en 325 MG en 325 MG t_as_ne hen 325 MG eded} Ibuprofen Ibuprofen No QID Ibuprofen 200 MG 200 MG 200 MG DULoxetine DULoxetine No DULoxetine HCl 20 MG HCl 20 MG HCl 20 MG tiZANidine tiZANidine No 1{capsu TID tiZANidine HCl 4 MG HCl 4 MG le_as_n HCl 4 MG eeded} Methocarbam Methocarbam No Methocarba ol 750 MG ol 750 MG mol 750 MG Gabapentin Gabapentin No 1{capsu Gabapentin 300 MG 300 MG le} 300 MG Oxybutynin Oxybutynin No 1{table Oxybutynin Chloride 5 Chloride 5 t} Chloride 5 MG MG MG Cetirizine Cetirizine No 1{table QD Cetirizine HCl 10 MG HCl 10 MG t} HCl 10 MG Solifenacin Solifenacin No 1{table QD Solifenaci Succinate Succinate t} n 10 MG 10 MG Succinate 10 MG traMADol traMADol No 1{table QD traMADol HCl 50 MG HCl 50 MG t_as_ne HCl 50 MG eded} Sulfamethox Sulfamethox No Sulfametho azole-TMP azole-TMP xazole-TMP DS DS DS Phenazopyri Phenazopyri No 1{table TID Phenazopyr dine HCl dine HCl t_after idine HCl 100 MG 100 MG _meals} 100 MG Tamsulosin Tamsulosin No 1{capsu Tamsulosin HCl 0.4 MG HCl 0.4 MG le} HCl 0.4 MG Naproxen Naproxen No BID Naproxen 500 MG 500 MG 500 MG Acetaminoph Acetaminoph No 1{table QID Acetaminop en 325 MG en 325 MG t_as_ne hen 325 MG eded} Ibuprofen Ibuprofen No QID Ibuprofen 200 MG 200 MG 200 MG DULoxetine DULoxetine No DULoxetine HCl 20 MG HCl 20 MG HCl 20 MG tiZANidine tiZANidine No 1{capsu TID tiZANidine HCl 4 MG HCl 4 MG le_as_n HCl 4 MG eeded} Methocarbam Methocarbam No Methocarba ol 750 MG ol 750 MG mol 750 MG Gabapentin Gabapentin No 1{capsu Gabapentin 300 MG 300 MG le} 300 MG traMADol traMADol No 1{table QD traMADol HCl 50 MG HCl 50 MG t_as_ne HCl 50 MG eded} Acetaminoph Acetaminoph No 1{table QID Acetaminop en 325 MG en 325 MG t_as_ne hen 325 MG eded} Ibuprofen Ibuprofen No QID Ibuprofen 200 MG 200 MG 200 MG Gabapentin Gabapentin No 1{capsu Gabapentin 300 MG 300 MG le} 300 MG Oxybutynin Oxybutynin No 1{table Oxybutynin Chloride 5 Chloride 5 t} Chloride 5 MG MG MG Cetirizine Cetirizine No 1{table QD Cetirizine HCl 10 MG HCl 10 MG t} HCl 10 MG Sulfamethox Sulfamethox No Sulfametho azole-TMP azole-TMP xazole-TMP DS DS DS DULoxetine DULoxetine No DULoxetine HCl 20 MG HCl 20 MG HCl 20 MG tiZANidine tiZANidine No 1{capsu TID tiZANidine HCl 4 MG HCl 4 MG le_as_n HCl 4 MG eeded} Naproxen Naproxen No BID Naproxen 500 MG 500 MG 500 MG Solifenacin Solifenacin No 1{table QD Solifenaci Succinate Succinate t} n 10 MG 10 MG Succinate 10 MG Tamsulosin Tamsulosin No 1{capsu Tamsulosin HCl 0.4 MG HCl 0.4 MG le} HCl 0.4 MG Methocarbam Methocarbam No Methocarba ol 750 MG ol 750 MG mol 750 MG Phenazopyri Phenazopyri No 1{table TID Phenazopyr dine HCl dine HCl t_after idine HCl 100 MG 100 MG _meals} 100 MG Tamsulosin Tamsulosin No 1{capsu Tamsulosin HCl 0.4 MG HCl 0.4 MG le} HCl 0.4 MG Phenazopyri Phenazopyri No 1{table TID Phenazopyr dine HCl dine HCl t_after idine HCl 100 MG 100 MG _meals} 100 MG DULoxetine DULoxetine No DULoxetine HCl 20 MG HCl 20 MG HCl 20 MG Acetaminoph Acetaminoph No 1{table QID Acetaminop en 325 MG en 325 MG t_as_ne hen 325 MG eded} Ibuprofen Ibuprofen No QID Ibuprofen 200 MG 200 MG 200 MG Solifenacin Solifenacin No 1{table QD Solifenaci Succinate Succinate t} n 10 MG 10 MG Succinate 10 MG Methocarbam Methocarbam No Methocarba ol 750 MG ol 750 MG mol 750 MG tiZANidine tiZANidine No 1{capsu TID tiZANidine HCl 4 MG HCl 4 MG le_as_n HCl 4 MG eeded} Cetirizine Cetirizine No 1{table QD Cetirizine HCl 10 MG HCl 10 MG t} HCl 10 MG Oxybutynin Oxybutynin No 1{table Oxybutynin Chloride 5 Chloride 5 t} Chloride 5 MG MG MG traMADol traMADol No 1{table QD traMADol HCl 50 MG HCl 50 MG t_as_ne HCl 50 MG eded} Gabapentin Gabapentin No 1{capsu Gabapentin 300 MG 300 MG le} 300 MG Sulfamethox Sulfamethox No Sulfametho azole-TMP azole-TMP xazole-TMP DS DS DS Naproxen Naproxen No BID Naproxen 500 MG 500 MG 500 MG Sulfamethox Sulfamethox No Sulfametho azole-TMP azole-TMP xazole-TMP DS DS DS tiZANidine tiZANidine No 1{capsu TID tiZANidine HCl 4 MG HCl 4 MG le_as_n HCl 4 MG eeded} Naproxen Naproxen No BID Naproxen 500 MG 500 MG 500 MG Ibuprofen Ibuprofen No QID Ibuprofen 200 MG 200 MG 200 MG Solifenacin Solifenacin No 1{table QD Solifenaci Succinate Succinate t} n 10 MG 10 MG Succinate 10 MG DULoxetine DULoxetine No DULoxetine HCl 20 MG HCl 20 MG HCl 20 MG Phenazopyri Phenazopyri No 1{table TID Phenazopyr dine HCl dine HCl t_after idine HCl 100 MG 100 MG _meals} 100 MG Gabapentin Gabapentin No 1{capsu Gabapentin 300 MG 300 MG le} 300 MG Cetirizine Cetirizine No 1{table QD Cetirizine HCl 10 MG HCl 10 MG t} HCl 10 MG Acetaminoph Acetaminoph No 1{table QID Acetaminop en 325 MG en 325 MG t_as_ne hen 325 MG eded} Tamsulosin Tamsulosin No 1{capsu Tamsulosin HCl 0.4 MG HCl 0.4 MG le} HCl 0.4 MG Oxybutynin Oxybutynin No 1{table Oxybutynin Chloride 5 Chloride 5 t} Chloride 5 MG MG MG traMADol traMADol No 1{table QD traMADol HCl 50 MG HCl 50 MG t_as_ne HCl 50 MG eded} Methocarbam Methocarbam No Methocarba ol 750 MG ol 750 MG mol 750 MG Tamsulosin Tamsulosin No 1{capsu Tamsulosin HCl 0.4 MG HCl 0.4 MG le} HCl 0.4 MG Phenazopyri Phenazopyri No 1{table TID Phenazopyr dine HCl dine HCl t_after idine HCl 100 MG 100 MG _meals} 100 MG DULoxetine DULoxetine No DULoxetine HCl 20 MG HCl 20 MG HCl 20 MG Acetaminoph Acetaminoph No 1{table QID Acetaminop en 325 MG en 325 MG t_as_ne hen 325 MG eded} Ibuprofen Ibuprofen No QID Ibuprofen 200 MG 200 MG 200 MG Solifenacin Solifenacin No 1{table QD Solifenaci Succinate Succinate t} n 10 MG 10 MG Succinate 10 MG Methocarbam Methocarbam No Methocarba ol 750 MG ol 750 MG mol 750 MG tiZANidine tiZANidine No 1{capsu TID tiZANidine HCl 4 MG HCl 4 MG le_as_n HCl 4 MG eeded} Cetirizine Cetirizine No 1{table QD Cetirizine HCl 10 MG HCl 10 MG t} HCl 10 MG Oxybutynin Oxybutynin No 1{table Oxybutynin Chloride 5 Chloride 5 t} Chloride 5 MG MG MG traMADol traMADol No 1{table QD traMADol HCl 50 MG HCl 50 MG t_as_ne HCl 50 MG eded} Vital Signs Vital Name Observation Time Observation Value Comments Source Systolic blood 2022-07-28 16:13:00 134 mm[Hg] [facility] Diastolic blood 2022-07-28 16:13:00 87 mm[Hg] [facility] Heart rate 2022-07-28 16:13:00 92 /min [facility] Body temperature 2022-07-28 16:13:00 36.56 [facility] 2022-07-28 16[facility]13:00 18 /min [facility] Body height 2022-07-28 16:13:00 170.2 cm [facility] Body weight 2022-07-28 16:13:00 95.981 kg [facility] BMI 2022-07-28 16:13:00 33.14 kg/m2 [facility] [facility] Oxygen saturation in 2022-07-28 16:13:00 99 /min [facility] blood by [facility] Pulse oximetry Branch height 2022-07-28 09:20:00 68.5 [in_i] [facility] weight 2022-07-28 09:20:00 213 [lb_av] [facility] temperature 2022-07-28 09:20:00 98 [degF] [facility] bmi 2022-07-28 09:20:00 31.91 kg/m2 [facility] blood pressure 2022-07-28 09:20:00 125 mm[Hg] [facility] - systolic [facility] blood pressure 2022-07-28 09:20:00 72 mm[Hg] [facility] - diastolic [facility] Systolic blood 2022-07-13 18:25:00 136 mm[Hg] [facility] Diastolic blood 2022-07-13 18:25:00 92 mm[Hg] [facility] Heart rate 2022-07-13 18:25:00 84 /min [facility] height 2022-07-13 18:25:00 172.7 cm [facility] weight 2022-07-13 18:25:00 [facility].255 [facility] BMI 2022-07-13 18:25:00 31.93 kg[facility]m2 [facility] height 2022-04-28 16:10:00 68.5 [in_i] Common [facility] weight 2022-04-28 16:10:00 215 [lb_av] [facility] temperature 2022-04-28 16:10:00 97 [degF] [facility] bmi 2022-04-28 16:10:00 32.21 kg/m2 Common S pirit [facility] blood pressure 2022-04-28 16:10:00 122 mm[Hg] [facility] - systolic [facility] blood pressure 2022-04-28 16:10:00 75 mm[Hg] [facility] - diastolic [facility] height 2022-01-27 09:10:00 68.5 [in_i] Common [facility] weight 2022-01-27 09:10:00 212 [lb_av] [facility] temperature 2022-01-27 09:10:00 98 [degF] Common [facility] bmi 2022-01-27 09:10:00 31.76 kg/m2 [facility] 2022-01-27 09:10:00 128 mm[Hg] [facility] - systolic [facility] blood pressure 2022-01-27 09:10:00 76 mm[Hg] [facility] - diastolic [facility] Systolic blood 2022-01-25 19:43:00 131 mm[Hg] Univer sity of pressure [facility] Diastolic blood 2022-01-25 19:43:00 85 mm[Hg] Unive rsity of pressure [facility] Heart rate 2022-01-25 19:43:00 80 /min Universi ty [facility] Body temperature 2022-01-25 19:43:00 35.94 [facility] ersity [facility] Respiratory rate 2022-01-25 19:43:00 18 /min [facility] height 2022-01-25 19:43:00 172.7 cm Universi ty [facility] Body weight 2022-01-25 19:43:00 94.802 kg [facility] BMI 2022-01-25 19:43:00 31.78 kg/m2 [facility] height 2021-12-25 10:40:00 68.5 [in_i] [facility] - [facility] weight 2021-12-25 10:40:00 211.8 [lb_av] [facility] - [facility] temperature 2021-12-25 10:40:00 97.8 [degF] Common S pirit [facility] bmi 2021-12-25 10:40:00 31.73 kg/m2 [facility] oximetry 2021-12-25 10:40:00 96 % Common [facility] respiratory rate 2021-12-25 10:40:00 17 /min Comm on [facility] blood pressure 2021-12-25 10:40:00 132 mm[Hg] Common [facility] - systolic [facility] blood pressure 2021-12-25 10:40:00 70 mm[Hg] [facility] - [facility] height 2021-09-22 16:20:00 68.5 [in_i] Common S [facility] weight 2021-09-22 16:20:00 215 [lb_av] [facility] bmi 2021-09-22 16:20:00 32.21 kg/m2 [facility] S [facility] height 2021-06-30 07:40:00 68.5 [in_i] [facility] S pirit [facility] weight 2021-06-30 07:40:00 215 [lb_av] Common S pirit [facility] temperature 2021-06-30 07:40:00 97.3 [degF] [facility] bmi 2021-06-30 07:40:00 32.21 kg/m2 [facility] blood pressure 2021-06-30 07:40:00 135 mm[Hg] [facility] - systolic [facility] blood pressure 2021-06-30 07:40:00 72 mm[Hg] [facility] - diastolic [facility] Heart Rate 2018-10-11 17:26:00 [facility] [place] Temperature Oral (F) 2018-10-11 17:26:00 97.9 F [facility] [place] Respitory Rate 2018-10-11 17:26:00 [facility] al [facility] Systolic (mm Hg) 2018-10-11 17:26:00 [facility] [place] Diastolic (mm Hg) 2018-10-11 17:26:00 Mem orial [facility] Systolic (mm Hg) 2018-10-11 13:44:00 Edison [facility] Diastolic (mm Hg) 2018-10-11 13:44:00 Mem orial [place] Respitory Rate 2018-10-11 13:44:00 Mem[facility] al [facility] Heart Rate 2018-10-11 13:44:00 [facility] Temperature Oral (F) 2018-10-11 13:44:00 99.1 F [facility] [place] Temperature Oral (F) 2018-10-11 10:47:00 97.9 F [facility] Heart Rate 2018-10-11 10:47:00 [facility] Respitory Rate 2018-10-11 10:47:00 [facility] [place] Systolic (mm Hg) 2018-10-11 10:47:00 Edison [facility] Diastolic (mm Hg) 2018-10-11 10:47:00 Mem orial [facility] Weight 2018-10-08 21:12:00 [facility] [place] Weight 2018-10-08 14:38:00 [facility] Height 2018-10-08 14:38:00 172.72 cm [facility] BMI Calculated 2018-10-08 14:38:00 Mem[facility] Procedures Procedure Date / Time Performing Clinician Source Performed CT ABDOMEN PELVIS WO 2022-08-17 21:33:21 Lien Ayala [facility] CONTRAST Medical Branch AUTHORIZATION TO RELEASE 2022-08-12 06:01:00 Doctor Unassigned, [facility] PHI TO [facility] [place] Medical [facility] US RETROPERITONEAL 2022-03-16 15:37:56 Chris Crane [facility] COMPLETE Medical Branch POCT URINALYSIS AUTO 2022-01-25 19:47:00 Chris Crane [facility] Medical Branch AUTHORIZATION FOR RELEASE 2021-11-10 05:01:00 Doctor Unassigned, [facility] [place] Medical Branch Encounters Start End Encounter Admission Attending Care Care Encounter Source Date/Time Date/Time Type Type Clinicians Facility Department ID 2022-07-27 Outpatient Velez, STLMLC STLMLC [id number] Common 11:26:02 [facility] 2022-07-15 Outpatient [facility] [id number] [place] 15:14:16 [id number] [facility] 2022-07-13 Outpatient [facility] [id number] [place] 10:08:40 [id number] [facility] 2022-07-12 Outpatient [facility] [id number] [place] 09:49:05 [id number] [facility] 2022-07-07 Outpatient [facility] [id number] [place] 16:25:20 [id number] [facility] 2022-07-06 Outpatient [facility] [id number] [place] 14:50:41 [id number] [facility] 2022-01-27 Outpatient Velez, STLMLC STLMLC [id number] Common 09:17:01 [facility] 2021-12-28 Outpatient Velez, STLMLC STLMLC [id number] Common 14:58:02 [facility] 2021-12-23 Outpatient Velez, STLMLC STLMLC [id number] Common 10:50:32 [facility] 2021-09-07 Outpatient Velez, STLMLC STLMLC [id number] Common 10:55:02 [facility] 2021-09-02 Outpatient Velez, STLMLC STLMLC [id number] Common 14:16:27 [facility] 2021-09-02 Outpatient Velez, STLMLC STLMLC [id number] Common 14:04:31 [facility] 2021-09-02 Outpatient Velez, STLMLC STLMLC [id number] Common 13:55:58 [facility] 2021-09-02 Outpatient Velez, STLMLC STLMLC [id number] Common 13:16:30 [facility] 41595 [facility] 2021-09-02 Outpatient Velez, STLMLC STLMLC [id number] Common 13:09:28 Parminder 03980 [facility] 2021-09-02 Outpatient Velez, STLMLC STLMLC [id number] Common 13:08:55 Parminder 39822 [facility] 2021-09-02 Outpatient Velez, STLMLC STLMLC [id number] Common 12:53:51 Parminder 86202 [facility] 2021-09-02 Outpatient Velez, STLMLC STLMLC [id number] Common 12:45:22 Parminder 66164 [facility] 2021-09-02 Outpatient Velez, STLMLC STLMLC [id number] Common 12:36:15 Parminder 34956 [facility] 2021-09-02 Outpatient Velez, STLMLC STLMLC [id number] Common 12:19:27 Parminder 56531 [facility] 2021-09-02 Outpatient Velez, STLMLC STLMLC [id number] Common 12:07:47 Parminder 86010 [facility] 2021-09-02 Outpatient Velez, STLMLC STLMLC [id number] Common 12:07:23 Parminder 08877 [facility] 2021-09-02 Outpatient Velez, STLMLC STLMLC [id number] Common 11:44:55 Parminder 54975 [facility] 2021-09-02 Outpatient Velez, STLMLC STLMLC [id number] Common 11:42:01 Parminder 77743 [facility] 2021-09-02 Outpatient Velez, STLMLC STLMLC [id number] Common 11:39:14 Parminder 01507 [facility] 2021-09-02 Outpatient Velez, STLMLC STLMLC [id number] Common 11:33:37 Parminder [id number] [facility] 2018-10-08 Inpatient E [facility] [id number] [facility] H 09:57:00 2022-08-20 2022-08-20 DEBORA Calloway 1.2.840.114 [id number] Univers 00:00:00 00:00:00 Management Lien LUN[place] 350.1.13.10 [place] [id number] [facility] 204 [facility] 2022-08-17 2022-08-17 [facility] [id number] Univers 14:58:30 23:59:00 LIEN ity o f [facility] 2022-08-17 2022-08-17 [facility] 1.2.840.114 [id number] Univers 14:58:30 23:59:00 Encounter Lien LUNDY 350.1.13.10 [place] [id number] [facility] [address] 2022-08-17 2022-08-17 Senior Portfolio Analyst Taylor, Adc Lab Main [facility] 1.2.8 40.114 [id number] Univers 08:45:00 09:00:00 Visit Lien Ayala 350.1.13. 10 [place] [id number] [facility] 353 [facility] 2022-08-12 2022-08-12 Orders Doctor KEDAR 1.2.840.114 [id number] Univers 00:00:00 00:00:00 Only Unassigned, NIKO 350.1.13.10 ity of [place] 4.2.7.2.686 Alli as [id number] [facility] [address] 2022-08-02 2022-08-02 Telephone [facility] 1.2.840.114 [id number] Univers 00:00:00 00:00:00 Lien NIKKIE [id number] [place] [id number] [facility] 204 [facility] 2022-07-28 2022-07-28 [facility] 1.2.840.114 [id number] Univers 10:30:00 11:07:33 Visit Lien LUNDY 350.1.13.10 [place] of [place]I [id number] Fl dical [facility] 204 [facility] 2022-07-28 2022-07-28 [facility] [id number] Co mmon 00:00:00 00:00:00 VISIT Spirit ESTAB PT - CHI LEVEL 4 [facility] 2022-07-28 2022-07-28 Outpatient R RADIOLOGY [facility] [id number] Univers 00:00:00 00:00:00 ity of [facility] 2022-07-22 2022-07-22 Outpatient R AKINSIPE, [facility] [id number] Univers 09:15:00 09:15:00 ZOIE ity o f [facility] 2022-07-13 2022-07-13 Office VERONICA Velez [facility] 1.2.840.114 [id number] [place] 09:40:00 12:09:13 Visit Karmen R SE MED [id number] [address] 9.2.7.2.686 [id number] 2022-06-16 2022-06-16 Telephone MIKAYLA Be 1.2.062.[id number] [facility] 00:00:00 00:00:00 Betty HAYES 350.1.13.10 [place] [id number] [address] 2022-04-28 2022-04-28 OFFICE [facility] [id number] Co mmon 00:00:00 00:00:00 VISIT EST Spir it PT LEVEL 3 - CHI [facility] 2022-03-16 2022-03-16 Outpatient R ROYCE [facility] [id number] Univers 10:05:27 23:59:00 CHRIS ity [facility] 2022-03-16 2022-03-16 [facility] 1.2.186.486 [id number] Univers 09:06:20 23:59:00 Encounter Chris LUNDY 350.1.13.10 ity of [place] 4.2.7.2.686 [facility] [id number] [facility] [address] 2022-02-04 2022-02-04 Outpatient R RYAN [facility] [id number] Univers 09:00:00 09:00:00 ATTENDING ity [facility] 2022-02-03 2022-02-03 [facility] [id number] Univers 16:15:00 16:15:00 PATSY itstevie [facility] 2022-01-27 2022-01-27 [facility] [id number] Univers 00:00:00 00:00:00 [facility] 2022-01-27 2022-01-27 [facility] [id number] Co mmon 00:00:00 00:00:00 VISIT Fausto LYNCH PT - CHI LEVEL 4 [facility] 2022-01-25 2022-01-25 [facility] [id number] Univers 13:45:00 14:56:27 [facility] 2022-01-25 2022-01-25 [facility] 1.2.840.114 [id number] Univers 13:45:00 14:56:27 Visit Chris LUNDY 350.1.13.10 i ty of [place] 4.2.7.2.686 [facility] [id number] Fl dical NAL 204 [facility] 2022-01-25 2022-01-25 Outpatient [facility] [id number] Univers 13:45:00 14:56:27 CHRIS ity [facility] 2022-01-18 2022-01-18 Outpatient [facility] [id number] Univers 14:45:00 14:45:00 [facility] 2022-01-08 2022-01-08 Orders Doctor KEDAR 1.2.840.114 [id number] Univers 00:00:00 00:00:00 Only Unassigned, NIKO 350.1.13.10 ity of [place] [facility] 4.2.7.2.686 Alli [id number] [facility] [address] Branch 2022-01-07 2022-01-07 (TEL) STLC STLC [id number] Co mmon 00:00:00 00:00:00 [facility] 2021-12-28 2021-12-28 Emergency [facility] [id number] Univers 12:29:00 14:39:00 SEBASTIAN ity [facility] 2021-12-28 2021-12-28 Emergency [facility] 1.2.840.114 [id number] Univers 12:29:00 14:39:00 Sebastian LUNDY 350.1.13.10 i ty [facility] 4.2.7.2.686 [facility] [id number] [facility] 084 Branch 2021-12-28 2021-12-28 (TEL) STLC STLC [id number] Co mmon 00:00:00 00:00:00 [facility] 2021-12-25 2021-12-25 PREV [facility] [id number] Common 00:00:00 00:00:00 EST AGE [facility] 40-64 - [facility] 2021-11-12 2021-11-12 (TEL) STLC STLMLC [id number] Co mmon 00:00:00 00:00:00 [facility] 2021-11-10 2021-11-10 Orders Doctor KEDAR 1.2.840.114 [id number] Univers 00:00:00 00:00:00 Only Unassigned, NIKO 350.1.13.10 ity of [facility] 4.2.7.2.[address] [facility] [id number] [facility] [address] 2021-11-02 2021-11-02 Outpatient R ROYCE [facility] [id number] Univers 13:30:00 13:35:36 CHRIS contreras [facility] 2021-11-02 2021-11-02 Nurse Nurse, Adc Surgery [facility] 1.2. 840.114 [id number] Univers 13:30:00 13:35:36 Visit Chris Crane 350.1.13.10 ity [facility] [place] [id number] Fl dical NAL [address] [place] [address] 2021-11-02 2021-11-02 Outpatient R [facility] [id number] Univers 13:30:00 13:30:00 ity of [facility] 2021-11-02 2021-11-02 Letter Royce [facility] 1.2.840.114 [id number] Univers 00:00:00 00:00:00 (Out) Chris LUNDY 350.1.13.10 i ty [facility] [place] [id number] Fl dic[address] 2021-10-29 2021-10-29 [facility] [id number] Univers 14:00:00 14:57:31 [facility] 2021-10-29 2021-10-29 Office Chris Crane [facility] 1.2.840.114 [id number] Univers 14:00:00 14:57:31 Visit Adiel Mitchell 350.1.13.10 ity [facility] 4[place] [id number] [address] 2021-10-29 2021-10-29 Outpatient [facility] [id number] Univers 14:00:00 14:57:31 [facility] 2021-10-28 2021-10-28 Outpatient U [facility] SUU [id number] Univers 01:14:00 18:00:00 [facility] 2021-10-28 2021-10-28 [facility] 1.2.840. 114 [id number] Univers 01:14:00 18:00:00 Encounter Chris Crane 350.1.13.10 ity [facility] 4.2.7.2.686 Alli as [id number] [address] 2021-10-28 2021-10-28 [facility] 1.2.840.114 [id number] Univers 00:00:00 00:00:00 Chris [place] 350.1.13.10 i ty [place] [id number] Fl dical NAL [address] [facility] 2021-10-28 2021-10-28 Orders Doctor KEDAR 1.2.840.114 [id number] Univers 00:00:00 00:00:00 Only Unassigned, NIKO 350.1.13.10 ity of [place] [facility] 4.2.7.2.686 Alli as [id number] [facility] [address] 2021-10-27 2021-10-27 Hospital RUTHANN Crane 1.2.098.976 [id number] Univers 05:30:00 11:13:00 Encounter Chris NIKO 350.1.13.10 ity of [facility] 4.2.7.2.686 Alli as [id number] [facility] 104 [address] 2021-10-27 2021-10-[address] [id number] Univers 05:30:00 11:13:00 CHRIS ity of [facility] 2021-10-27 2021-10-27 Surgery RUTHANN Crane 1.2.840.114 [id number] Univers 07:15:00 09:32:00 Chris NIKO 350.1.13.10 it y of [facility] 4.2.7.2.686 Alli as [id number] [facility] 103 [address] 2021-10-27 2021-10-27 Telephone Royce [facility] 1.2.840.114 [id number] Univers 00:00:00 00:00:00 Chris [place] 350.1.13.10 i [place] [id number] Fl dical [facility] 204 [facility] 2021-10-24 2021-10-24 Laboratory Only, Adc Test [facility] 1.2.840. 114 [id number] Univers 11:30:00 11:45:00 Only Chris Crane 350.1.13.10 [place] [id number] [facility] [address] 2021-10-24 2021-10-24 Outpatient R [facility] [id number] Univers 11:30:00 11:30:00 CHRIS ity [facility] 2021-10-19 2021-10-19 Telephone [facility] 1.2.840.114 [id number] Univers 00:00:00 00:00:00 Chris [place] 350.1.13.10 i ty [place] [id number] [address] 2021-10-16 2021-10-16 Telephone [facility] 1.2.840.114 [id number] Univers 00:00:00 00:00:00 Chris [place] 350.1.13.10 i ty [place] [id number] [address] 2021-10-14 2021-10-14 [facility] 1.2.295.778 [id number] Univers 00:00:00 00:00:00 Jeanna A [place] 350.1.13.10 [place] [id number] [address] 2021-10-13 2021-10-13 Outpatient R [facility] SUU [id number] Univers 11:26:00 16:22:00 CHRIS ity of [facility] 2021-10-13 2021-10-13 Hospital RUTHANN Crane 1.2.597.311 [id number] Univers 11:26:00 16:22:00 Encounter Chris NIKO 350.1.13.10 ity of [facility] 4.2.7.2.686 Alli as [id number] [facility] [address] 2021-10-13 2021-10-13 Surgery RUTHANN Crane 1.2.840.114 [id number] Univers 12:50:00 14:52:00 Chris NIKO 350.1.13.10 it y of [facility] 4.2.7.2.686 Alli as [id number] [facility] 103 [address] 2021-10-12 2021-10-12 [facility] 1.2.840.114 [id number] Univers 09:12:54 23:59:00 Encounter Jeanna LUNDY 350.1.13.10 ity of [place] [id number] [facility] [address] 2021-10-12 2021-10-12 Laboratory Only, Adc Test [facility] 1.2.840. 114 [id number] Univers 16:00:00 16:15:00 Only Kyle Stanley 350.1.13.10 [facility] [place] [id number] [facility] [address] 2021-10-12 2021-10-12 Outpatient [facility] [id number] Univers 16:00:00 16:00:00 KYLE contreras [facility] 2021-10-12 2021-10-12 Senior Portfolio Analyst Taylor, [facility] Lab Main [facility] 1.2.8 40.114 [id number] Univers 11:15:00 11:30:00 Visit Jeanna Vilchis 350.1.13.10 ity of [place] [id number] [facility] 353 [facility] 2021-10-12 2021-10-12 Outpatient [facility] [id number] Univers 08:00:00 08:57:20 JEANNA ity of [facility] 2021-10-12 2021-10-12 Office [facility] 1.2.840.114 [id number] Univers 08:00:00 08:57:20 Visit Jeanna QU[place]AT[place] 350.1.13.10 ity of [place] [id number] Fl dicid NAL 204 [facility] 2021-10-12 2021-10-12 Letter [facility] 1.2.840.114 [id number] Univers 00:00:00 00:00:00 (Out) Jeanna [place] 350.1.13.10 [facility] [place] [id number] [address] 2021-10-12 2021-10-12 Orders Doctor KEDAR 1.2.840.114 [id number] Univers 00:00:00 00:00:00 Only Unassigned, NIKO 350.1.13.10 ity of [place] 4.2.7.2.686 Alli as [id number] [facility] [address] 2021-10-12 2021-10-12 Prep For [facility] 1.2.840.114 [id number] Univers 00:00:00 00:00:00 Surgery Jeanna LUNDY 350.1.13.10 [place] [id number] [address] 2021-10-12 2021-10-12 Case [facility] 1.2.840.114 [id number] Univers 00:00:00 00:00:00 Management Jeanna LUNDY 350.1.13.10 [place] [id number] [address] 2021-10-12 2021-10-12 Telephone [facility] 1.2.755.245 [id number] Univers 00:00:00 00:00:00 Jeanna LUNDY 350.1.13.10 [place] of [place] [id number] [address] 2021-10-12 2021-10-12 Telephone KEDAR Cook 1.2.633.749 [id number] Univers 00:00:00 00:00:00 Jason POPE 350.1.13.10 ity of [facility] 4.2.7.2.686 Alli as [id number] [facility] [address] 2021-10-09 2021-10-09 Outpatient R CECILE KEITA [facility] [id number] Univers 10:30:00 10:30:00 CECILE KEITA [facility] 2021-10-09 2021-10-09 Outpatient R CECILE KEITA [facility] [id number] Univers 10:30:00 10:30:00 CECILE KEITA [facility] 2021-10-09 2021-10-09 Outpatient R CECILE KEITA [facility] [id number] Univers 10:30:00 10:30:00 CECILE KEITA [facility] 2021-10-09 2021-10-09 Outpatient R CECILE KEITA [facility] [id number] Univers 10:30:00 10:30:00 CECILE KEITA stevie [facility] 2021-10-05 2021-10-05 Senior Portfolio Analyst 2, Adc Lab [facility] 1.2.840.114 [id number] Univers 10:15:00 10:30:00 Visit Chris Crane 350.1.13.10 ity of [facility] [place] [phone] Fl dical NAL 353 [facility] 2021-10-05 2021-10-05 Outpatient R ROYCE [facility] [id number] Univers 09:00:00 10:00:16 [facility] 2021-10-05 2021-10-05 Office Royce [facility] 1.2.840.114 [id number] Univers 09:00:00 10:00:16 Visit Chris LUNDY 350.1.13.10 i ty of [place] [phone] Fl dical NAL 204 [facility] 2021-10-05 2021-10-05 Outpatient R ROYCE [facility] [id number] Univers 09:00:00 10:00:16 [facility] 2021-10-05 2021-10-05 Letter Royce [facility] 1.2.840.114 [id number] Univers 00:00:00 00:00:00 (Out) Chris LUNDY 350.1.13.10 i [place] [phone] Me dical NAL 204 [facility] 2021-09-30 2021-09-30 Orders Doctor KEDAR 1.2.840.114 [id number] Univers 00:00:00 00:00:00 Only Unassigned, NIKO 350.1.13.10 ity of [facility] 4.2.7.2.686 Alli as [phone] [facility] [address] [place] 2021-09-29 2021-09-29 Outpatient R NORA PEACOCK [facility] [id number] Univers 13:30:00 13:30:00 NORA PEACOCK [facility] 2021-09-29 2021-09-29 Emergency [facility] E[facility] [id number] Univers 06:54:00 11:22:00 NATALYA [facility] 2021-09-29 2021-09-29 Emergency [facility] 1.2.840.114 [id number] Univers 06:54:00 11:22:00 Natalya LUNDY 350.1.13.10 ity [facility] 4.2.7.2.686 [facility] [phone] [facility] 0[address] 2021-09-29 2021-09-29 (TEL) STLMLC STLMLC [id number] Co mmon 00:00:00 00:00:00 [facility] 2021-09-29 2021-09-29 Orders Doctor KEDAR 1.2.840.114 [id number] Univers 00:00:00 00:00:00 Only Unassigned, NIKO 350.1.13.10 ity of [facility] 4.2.7.2.686 Alli as [phone] [address] 2021-09-23 2021-09-23 (TEL) STLMLC STLMLC [id number] Co mmon 00:00:00 00:00:00 [facility] 2021-09-22 2021-09-22 (TEL) STLMLC STLMLC [id number] Co mmon 00:00:00 00:00:00 [facility] 2021-09-22 2021-09-22 OFFICE STLMLC STLMLC [id number] Co mmon 00:00:00 00:00:00 VISIT EST Spir it PT LEVEL 3 - [facility] 2021-09-21 2021-09-21 Outpatient LONDON [facility] [id number] [place] 08:39:13 08:39:13 [facility] 2021-09-21 2021-09-21 (TEL) STLMLC STLMLC [id number] Co mmon 00:00:00 00:00:00 Spirit - [facility] 2021-09-18 2021-09-18 Outpatient Katie VELIZ [facility] [id number] Univers 11:30:00 11:30:00 KELBY contreras [facility] [place] 2021-09-17 2021-09-17 Telephone Nilda Serrano [facility] 1.2.840. 114 [id number] [place] 00:00:00 00:00:00 Nilda Serrano MED 350.1.13.58 Health PLA[place] 2 9.2.7.2.686 [phone] 6 2021-09-16 2021-09-16 Telephone VERONICA Velez 6400 1.2.840.114 [id number] [place] 00:00:00 00:00:[address] 350.1.13.58 Health 9.2.7.2.686 [id number] [id number] 2021-08-21 2021-08-21 Outpatient Katie VELIZ [facility] [id number] Univers 10:30:00 11:04:23 KELBY contreras [facility] 2021-08-21 2021-08-21 Office [facility] 1.2.840.114 [id number] Univers 10:30:00 11:00:00 Visit Kelby LUNDY 350.1.13.10 i ty of [facility] 4.2.7.2.686 Zahira headley PROFESSIO [phone] Fl dical NAL [address] [place] [address] 2021-08-21 2021-08-21 Outpatient Katie VELIZ [facility] [id number] Univers 10:30:00 10:30:00 KELBY contreras [facility] 2021-08-21 2021-08-21 Outpatient Katie VELIZ [facility] [id number] Univers 10:30:00 10:30:00 KELBY harisstevie [facility] 2021-08-10 2021-08-10 Outpatient R MARGOT [facility] [id number] Univers 15:20:00 15:20:00 PATSY contreras [facility] 2021-08-10 2021-08-10 Outpatient R MARGOT [facility] [id number] Univers 15:20:00 15:20:00 PATSY harisstevie [facility] 2021-08-05 2021-08-05 Outpatient R CECILE KEITA [facility] [id number] Univers 09:00:00 10:19:52 BOSSMAN, CECILE contreras [facility] 2021-08-05 2021-08-05 Office [facility] 1.2.840.114 [id number] Univers 09:00:00 10:19:52 Visit Cecile NAJERA 350.1.13.10 ity [place] [phone] [address] [facility] 2021-07-27 2021-07-27 Telephone [facility] 1.2.840.114 [id number] Univers 00:00:00 00:00:00 Kelby HEALTH 350.1.13.10 it y of [place] 4.2.7.2.686 [facility] [place] [phone] [place] [address] [place] OFFICE BUILDING 2021-07-24 2021-07-24 [facility] [id number] Univers 10:30:00 12:01:02 KELBY contreras [facility] [place] 2021-07-24 2021-07-24 Office [facility] 1.2.840.114 [id number] Univers 10:30:00 12:01:02 Visit Kelby LUNDY 350.1.13.10 i ty of [place]2.7.2.686 [place] [facility] [phone] [place] [address]9918 Branch BUILDING 2021-07-24 2021-07-24 Outpatient R [facility] [id number] Univers 10:30:00 10:30:00 [facility] 2021-07-21 2021-07-21 Refill Julio Cesar [facility] 1.2.777.579 [id number] Univers 00:00:00 00:00:00 Ifeoma HEALTH 350.1.13.10 it y of SURGICAL 4.2.7.2.686 Alli as SPECIALTI [phone] Fl dical ES [address] [place] 2021-07-20 2021-07-20 Office [employer], Clc Bls Urogyn [facility] 1.2.840.114 [id number] Univers 09:04:35 10:09:39 Visit Elizabeth Moreau [facility] 350.1.13. 10 ity of [place].2.686 [place] [phone] [address] OFFICE BUILDING 2021-07-20 2021-07-20 Outpatient R [facility] [id number] Univers 09:00:00 10:09:39 [facility] 2021-07-20 2021-07-20 Outpatient R [facility] [id number] Univers 09:00:00 10:09:39 [facility] 2021-07-20 2021-07-20 Orders Doctor KEDAR 1.2.840.114 [id number] Univers 00:00:00 00:00:00 Only Unassigned, NIKO 350.1.13.10 ity of [facility] 4.2.7.2.686 Alli as [phone] [place] [address] [place] 2021-07-01 2021-07-01 [facility]TEL[facility] [id number] Co mmon 00:00:00 00:00:00 Spirit - [facility] 2021-06-30 2021-06-30 [facility] [id number] Co mmon 00:00:00 00:00:00 VISIT Spirit ESTAB PT - CHI LEVEL 4 [facility] 2021-06-18 2021-06-18 Outpatient [facility] [id number] Univers 10:30:00 10:30:00 KELBY stevie [facility] 2021-06-18 2021-06-18 Letter [facility] 1.2.840.114 [id number] Univers 00:00:00 00:00:00 (Out) Kelby HEALTH 350.1.13.10 it y of [place] 4.2.7.2.686 [place] kayode PERALES [phone] [facility] [address] [place] OFFICE BUILDING 2021-06-05 2021-06-05 Outpatient [facility] [id number] Univers 10:00:00 11:11:01 ERICK [facility] 2021-06-05 2021-06-05 [facility] 1.2.042.205 [id number] Univers 09:59:23 11:11:01 Visit Erick Dillard HEALTH 350.1.13.10 it y of [place] 4.2.7.2.686 Alli as TRAM?BLEA [phone] Fl shawn [facility] 220 [facility] OFFICE [facility] 2021-06-05 2021-06-05 Outpatient R [facility] [id number] Univers 10:00:00 10:00:00 ERICK [facility] 2021-06-05 2021-06-05 Orders Doctor KEDAR 1.2.840.114 [id number] Univers 00:00:00 00:00:00 Only Unassigned, NIKO 350.1.13.10 ity of [facility] 4.2.7.2.686 Alli as [phone] [address] 2021-05-18 2021-05-18 Orders Doctor KEDAR 1.2.840.114 [id number] Univers 00:00:00 00:00:00 Only Unassigned, NIKO 350.1.13.10 ity of [facility] 4.2.7.2.686 Alli as [phone] [address] 2021-05-05 2021-05-05 (TEL) STLMLC STLMLC [id number] Co mmon 00:00:00 00:00:00 [facility] 2021-04-24 2021-04-24 Outpatient [facility] [id number] Univers 10:00:00 10:00:00 JARROD y [facility] 2021-03-30 2021-03-30 Outpatient R [facility] [id number] Univers 10:00:00 10:00:00 ity [facility] 2021-02-27 2021-02-27 Outpatient R [facility] [id number] Univers 10:00:00 10:00:00 ity [facility] 2021-02-23 2021-02-23 Outpatient STLMLC STLMLC [id number] Common 00:00:00 00:00:00 [facility] 2021-02-23 2021-02-23 Outpatient STLMLC STLMLC [id number] Common 00:00:00 00:00:00 [facility] 2021-01-26 2021-01-26 Outpatient STLMLC STLMLC [id number] Common 00:00:00 00:00:00 [facility] 2021-01-23 2021-01-23 Office [facility] 1.2.840.114 [id number] 08:50:29 10:03:02 Visit [facility] 350.1.13.10 Clear 4.2.7.2.686 [place] [phone] [place] [address] Office Building 2021-01-23 2021-01-23 Office [facility] 1.2.840.[id number] [facility] 08:50:29 10:03:02 Visit [facility] 350.1.13.10 ity of [place]2.[place].2.686 [place] [phone] [place] [address] Branch Office Building 2021-01-23 2021-01-23 Outpatient R [facility] [id number] Univers 08:30:00 08:30:00 PENELOPESHSUNDEEPA ity [facility] 2021-01-23 2021-01-23 Orders Doctor THACKER 1.2.840.114 [id number] 00:00:00 00:00:00 Only Unassigned, NIKO 350.1.13.10 [facility] 4.2.7.2.686 [id number] [id number] 2021-01-23 2021-01-23 Orders Doctor THACKER 1.2.840.114 [id number] Univers 00:00:00 00:00:00 Only Unassigned, NIKO 350.1.13.10 ity [facility] 4.2.7.2.[address] [facility] [phone] [facility] 009 [address] 2021-01-15 2021-01-15 Outpatient STLMLC STLMLC [id number] Common 00:00:00 00:00:00 [facility] 2021-01-11 2021-01-11 Telephone [facility] 1.2.840.114 [id number] Univers 00:00:00 00:00:00 [facility] 350.1.13.10 ity of [facility] 4.2.7.2.686 [facility] [place] [phone] [address] [facility] 2021-01-07 2021-01-07 Office [facility] 1.2.840.114 [id number] Univers 09:07:55 10:07:55 Visit [facility] 350.1.13.10 ity of [facility] 4.2.7.2.686 [facility] [place] [phone] [address] [facility] 2021-01-07 2021-01-07 Out[facility] [id number] Univers 09:15:00 09:15:00 [facility] 2021-01-06 2021-01-06 Outpatient STLMLC STLMLC [id number] Common 00:00:00 00:00:00 [facility] 2020-12-12 2020-12-12 Office [facility] 1.2.686.116 [id number] Univers 15:02:22 16:06:02 Visit Erick Lundy 350.1.13.10 i ty of [place] 4.2.7.2.686 [facility] [phone] [facility] 220 [facility] 2020-12-12 2020-12-12 Outpatient [facility] [id number] Univers 15:00:00 15:00:00 ERICK contreras [facility] 2020-12-04 2020-12-04 Orders Doctor KEDAR 1.2.840.114 [id number] Univers 00:00:00 00:00:00 Only Unassigned, NIKO 350.1.13.10 ity of [facility] 4.2.7.2.686 Alli as [phone] [address] 2020-11-25 2020-11-25 Outpatient STLMLC STLMLC [id number] Common 00:00:00 00:00:00 [facility] 2020-10-23 2020-10-23 Patient Jimmy [facility] 1.2.840.114 [id number] Univers 00:00:00 00:00:00 Outreach [place] [facility] 350.1.13.10 i jj [facility] 4.2.7.2.686 [place] [phone] [place] [address] Branch 2020-09-11 2020-09-11 Outpatient STLMLC STLMLC [id number] Common 00:00:00 00:00:00 [facility] 2020-09-11 2020-09-11 Outpatient STLMLC STLMLC [id number] Common 00:00:00 00:00:00 [facility] 2020-08-20 2020-08-20 Orders Doctor KEDAR 1.2.840.114 [id number] Univers 00:00:00 00:00:00 Only Unassigned, NIKO 350.1.13.10 ity of [facility] 4.2.7.2.686 Alli as [phone] [address] 2020-08-14 2020-08-14 Outpatient STLMLC STLMLC [id number] Common 00:00:00 00:00:00 [facility] 2020-07-16 2020-07-16 Outpatient STLMLC STLMLC [id number] Common 00:00:00 00:00:00 [facility] 2020-07-08 2020-07-09 Emergency X SUSANA TXWILBUR ERT [id number] Univers 23:13:00 05:01:00 JERMAINE contreras of [facility] 2020-07-08 2020-07-09 Emergency Razia Grant [facility] 1.2.840. 114 [id number] Univers 23:13:00 05:01:00 Razia Grant Nikkie 350.1.13.10 ity of Rachelevinriri Efejennifer Kayode [place] 4.2.7.2.686 [facility] [phone] [address] 2020-03-26 2020-03-26 Outpatient [facility] [id number] Common 15:00:00 15:00:[address] Spir it Drive [facility] 2020-03-24 2020-03-24 Outpatient [facility] [id number] Common 08:34:00 08:34:00 t [place] [address] Spir it Drive [facility] 2020-03-18 2020-03-18 Outpatient [facility] [id number] Common 16:45:00 16:45:00 t [place] [address] Spir it Drive [facility] 2020-03-18 2020-03-18 Outpatient [facility] [id number] Common 15:30:00 15:30:00 t [place] [address] Spir it Drive [facility] 2020-03-05 2020-03-05 Outpatient [facility] [id number] Common 10:30:00 10:30:00 t [place] [address] Spir it Drive [facility] 2020-01-25 2020-01-25 Office [facility] [id number] Univers 09:00:00 09:30:00 Visit Erick Lundy 350.1.13.10 i ty antonio Madsen 4.2.7.2.686 [facility] [phone] Fl dical nal 220 [facility] 2020-01-25 2020-01-25 Outpatient R HODAN [facility] [id number] Univers 09:00:00 09:00:00 ERICK contreras of [facility] 2019-12-20 2019-12-20 Case Bebeto [facility] 1.2.840.114 [id number] Univers 00:00:00 00:00:00 Management Diana NAJERA 350.1.13.10 ity of [place]2.7.2.686 [place] [phone] [facility] AND [address] [facility] 2019-12-19 2019-12-19 Outpatient R WENDYMARILUZ [facility] [id number] Univers 14:15:00 14:15:00 JESSICA contreras o f [facility] 2019-12-18 2019-12-18 Outpatient R JOSE [facility] [id number] Univers 13:45:00 13:45:00 NILS contreras [facility] 2019-11-13 2019-11-13 Refill [facility] 1.2.882.703 [id number] Univers 00:00:00 00:00:00 [facility] 350.1.13.10 it y of Surgical 4.2.7.2.686 Alli as Specialti [phone] Fl dical es 370 [facility] 2019-10-22 2019-10-22 Urgent Julio Cesar [facility] 1.2.840.11 [id number] Univers 18:16:28 18:31:28 Care Unknown, [facility] 350.1.13.10 ity of Surgical 4.2.7.2.686 Alli as Specialti [phone] Fl dical es 370 [facility] 2019-10-22 2019-10-22 Outpatient Katie METCALF [facility] [id number] Univers 07:40:00 07:40:00 MATTHEW diane [facility] 2019-07-25 2019-07-25 Outpatient Katie PETTIT [facility] [id number] Univers 15:59:42 23:59:00 ERICK diane [facility] 2019-04-04 2019-04-06 Phone nullFlavo MNA [id number] Memoria 17:21:53 04:59:59 Message r Neurosurger 05 l y [facility] 2019-04-04 2019-04-06 Phone nullFlavo MNA [id number] Memoria 17:21:53 04:59:59 Message r Neurosurger 05 l y [facility] 2019-04-04 2019-04-05 [id number] 12:21:53 23:59:59 2018-12-21 2018-12-23 Phone nullFlavo MNA [id number] Memoria 15:05:32 04:59:59 Message r Neurosurger 04 l y [facility] 2018-12-21 2018-12-23 Phone nullFlavo MNA [id number] Memoria 15:05:32 04:59:59 Message r Neurosurger 04 l y [facility] 2018-12-21 2018-12-22 Outpatient MHNDSCHER MHMISCHER [id number] 10:05:32 23:59:59 2018-12-08 2018-12-10 Phone nullFlavo MNA [id number] Memoria 18:27:20 04:59:59 Message r Neurosurger 03 l y [facility] 2018-12-08 2018-12-10 Phone nullFlavo MNA [id number] Memoria 18:27:20 04:59:59 Message r Neurosurger 03 l y [facility] 2018-12-08 2018-12-09 [facility] [id number] 13:27:20 23:59:59 2018-12-07 2018-12-08 Outpatient nullFlavo MNA [id number] Memoria 16:15:00 04:59:59 r Neurosurger 01 l y [facility] 2018-12-07 2018-12-08 Outpatient nullFlavo MNA [id number] Memoria 16:15:00 04:59:59 r Neurosurger 01 l y [facility] 2018-12-07 2018-12-08 Outpt Diag nullFlavo [facility] [id number] Memoria 15:09:00 04:59:00 Services r Outpatient 01 l Imaging [facility] 2018-12-07 2018-12-08 Outpt Diag nullFlavo [facility] [id number] Memoria 15:09:00 04:59:00 Services r Outpatient 01 l Imaging [facility] 2018-12-07 2018-12-07 Outpatient VISIT, MHMISCHER MISCHER [id number] 11:15:00 23:59:59 [facility] 2018-12-07 2018-12-07 [facility] [id number] 10:09:00 23:59:00 Edis Mckeon 2018-12-07 2018-12-07 Outpatient MHIE MHIE [id number] Memoria 11:15:00 11:15:00 01 pauly [place] 2018-10-31 2018-11-02 Phone nullFlavo MNA [id number] Memoria 17:52:00 04:59:59 Message r Neurosurger 02 l y [facility] 2018-10-31 2018-11-02 Phone nullFlavo MNA [id number] Memoria 17:52:00 04:59:59 Message r Neurosurger 02 l y [facility] 2018-10-31 2018-11-01 Outpatient MHMISCHER MHMISCHER [id number] 12:52:00 23:59:59 2018-10-27 2018-10-29 Phone nullFlavo MNA [id number] Memoria 14:49:00 04:59:59 Message r Neurosurger 01 l y [facility] 2018-10-27 2018-10-29 Phone nullFlavo MNA [id number] Memoria 14:49:00 04:59:59 Message r Neurosurger 01 l y [facility] 2018-10-27 2018-10-28 Outpatient MHMISCHER MHMISCHER [id number] 09:49:00 23:59:59 2018-10-26 2018-10-27 Outpatient nullFlavo MNA [id number] Memoria 17:15:00 04:59:59 r Neurosurger 00 l y [facility] 2018-10-26 2018-10-27 Outpatient nullFlavo MNA [id number] Memoria 17:15:00 04:59:59 r Neurosurger 00 l y [facility] 2018-10-26 2018-10-26 Outpatient VISIT, MHMISCHER MHMISCHER [id number] 12:15:00 23:59:[address] [place] [address] 2018-10-26 2018-10-26 Outpatient MHIE MHIE [id number] Memoria 12:15:00 12:15:00 00 [facility] 2018-10-24 2018-10-25 Outpt Diag nullFlavo [facility] [id number] Memoria 13:26:00 04:59:00 Services r Outpatient [address] [place] [address] 2018-10-24 2018-10-25 Outpt Diag nullFlavo [facility] [id number] Memoria 13:26:00 04:59:00 Services r Outpatient 00 l [facility] 2018-10-24 2018-10-24 Outpatient Suellen [facility] [id number] 08:26:00 23:59:00 Edis iji 00 2018-10-17 2018-10-19 Phone nullFlavo MNA [id number] Memoria 15:08:00 04:59:59 Message r Neurosurger 00 l y [facility] 2018-10-17 2018-10-19 Phone nullFlavo MNA [id number] Memoria 15:08:00 04:59:59 Message r Neurosurger 00 l y [facility] 2018-10-17 2018-10-18 [facility] [id number] 10:08:00 23:59:59 00 2018-10-08 2018-10-11 Inpatient nullFlavo [facility] [id number] Memoria 14:37:00 21:18:[address] 2018-10-08 2018-10-11 Inpatient nullFlavo [facility] [id number] Memoria 14:37:00 21:18:[address] 2018-10-08 2018-10-11 Outpatient Marin [facility] [id number] 08:37:00 15:18:00 Bryan Pisano Results Test Description [...] 3267) clear Lab Interpretation (test code = 70469-1) Abnormal [facility], [id number] 19:47:00 Test Item Value Reference Range Interpretation [...] 3267) Lab Interpretation (test code = Abnormal 09590-8) [facility]2019-03-06 06:11:00 Test Item Value Reference Range Interpretation Comments MCH (test code = MCH) 29.6 pg 27.0-31.0 [facility]oRFCPZGDBIM7249-53-68 06:11:00 Test Item Value Reference Range Interpretation Comments Hct (test code = Hct) 38.3 36.0-48.0 [facility] AustinXklgumoNNCUKNCURE4646-20-10 06:11:00 Test Item Value Reference Range Interpretation Comments RBC (test code = RBC) 4.30 4.20-5.40 [facility] AustinUrfkqlfYRJUFQMDVD9541-14-30 06:11:00 Test Item Value Reference Range Interpretation Comments MCV (test code = MCV) 89.1 80.0-98.0 [facility] AustinNitlmygMUDNHXBBWW1930-68-63 06:11:00 Test Item Value Reference Range Interpretation Comments Hgb (test code = Hgb) 12.7 12.0-16.0 [facility] AustinCqmiljtEWPXPKVYZS0342-75-15 06:11:00 Test Item Value Reference Range Interpretation Comments Eosinophils (test code = 2.9 See_Comment [A utomated message] The Eosinophils) system which ge nerated this result tra nsmitted reference range : <=4.0. The reference r kunal was not used to int erpret this result as normal/abnormal . [facility] AustinAowfomiKGCCNMKTNU8568-73-65 06:11:00 Test Item Value Reference Range Interpretation Comments Lymphocytes (test code = Lymphocytes) 28.7 20.0-40.0 [facility] AustinKlavhnlFRCKTRMIGM6931-70-21 06:11:00 Test Item Value Reference Range Interpretation Comments Monocytes (test code = Monocytes) 9.5 2.0-12.0 [facility] AustinXavansfJZOQCAONAM9071-26-37 06:11:00 Test Item Value Reference Range Interpretation Comments Segs (test code = Segs) 58.7 45.0-75.0 [facility] AustinPguakurUZBFRPGYUP9616-96-19 06:11:00 Test Item Value Reference Range Interpretation Comments Lymphocytes # (test code = Lymphocytes 2.6 1.0-5.5 #) [facility] AustinHdczabmOGIJDLLPAA0582-70-59 06:11:00 Test Item Value Reference Range Interpretation Comments Eosinophils # (test code 0.3 See_Comment [A utomated message] The = Eosinophils #) system whic h generated this result tra nsmitted reference range : <=0.5. The reference r kunal was not used to int erpret this result as normal/abnormal . [facility] AustinGqzzmbwKZGXNYHZLY0846-16-58 06:11:00 Test Item Value Reference Range Interpretation Comments Basophils (test code = 0.2 See_Comment [Aut omated message] The Basophils) system which ge nerated this result tra nsmitted reference range : <=1.0. The reference r kunal was not used to int erpret this result as normal/abnormal . [facility] [id number] 06:11:00 Test Item Value Reference Range Interpretation Comments Neutrophils # (test code = Neutrophils 5.3 1.5-8.1 #) [id number] 06:11:00 Test Item Value Reference Range Interpretation Comments Monocytes # (test code 0.9 See_Comment [Aut omated message] The = Monocytes #) system which generated this result tra nsmitted reference range : <=0.8. The reference r kunal was not used to int erpret this result as normal/abnormal . [facility]2019-03-06 06:11:00 Test Item Value Reference Range Interpretation Comments eGFR (test code = eGFR) 73 [facility]2019-03-06 06:11:00 Test Item Value Reference Range Interpretation Comments Glucose Lvl (test code = Glucose Lvl) 74 70-99 [facility]2019-03-06 06:11:00 Test Item Value Reference Range Interpretation Comments Creatinine Lvl (test code = Creatinine 0.93 0.50-1.40 Lvl) [facility]2019-03-06 06:11:00 Test Item Value Reference Range Interpretation Comments Sodium Lvl (test code = Sodium Lvl) 140 135-145 [facility]2019-03-06 06:11:00 Test Item Value Reference Range Interpretation Comments BUN (test code = BUN) 18 - [facility]2019-03-06 06:11:00 Test Item Value Reference Range Interpretation Comments Calcium Lvl (test code = Calcium Lvl) 8.9 8.5-10.5 [facility]2019-03-06 06:11:00 Test Item Value Reference Range Interpretation Comments Potassium Lvl (test code = Potassium 3.9 3.5-5.1 Lvl) [facility]2019-03-06 06:11:00 Test Item Value Reference Range Interpretation Comments Chloride Lvl (test code = Chloride Lvl) 106 95-109 [facility]2019-03-06 06:11:00 Test Item Value Reference Range Interpretation Comments BUN (test code = BUN) 18 - [facility]2019-03-06 06:11:00 Test Item Value Reference Range Interpretation Comments Calcium Lvl (test code = Calcium Lvl) 8.9 8.5-10.5 [facility]2019-03-06 06:11:00 Test Item Value Reference Range Interpretation Comments CO2 (test code = CO2) 26 24-32 [facility]2019-03-06 06:11:00 Test Item Value Reference Range Interpretation Comments Potassium Lvl (test code = Potassium 3.9 3.5-5.1 Lvl) [facility]2019-03-06 06:11:00 Test Item Value Reference Range Interpretation Comments Chloride Lvl (test code = Chloride Lvl) 106 95-109 [facility]2019-03-06 06:11:00 Test Item Value Reference Range Interpretation Comments CO2 (test code = CO2) 26 24-32 [facility]2019-03-06 06:11:00 Test Item Value Reference Range Interpretation Comments AGAP (test code = AGAP) 11.9 10.0-20.0 [facility]ImsghjnQIBNJASUSQ0258-18-61 06:11:00 Test Item Value Reference Range Interpretation Comments WBC (test code = WBC) 9.0 3.7-10.4 [facility] AustinHvekuikDMITYUDYPU8261-04-27 06:11:00 Test Item Value Reference Range Interpretation Comments Platelet (test code = Platelet) 319 133-450 [facility] AustinVnmvaaiTOICRGOULT1641-77-74 06:11:00 Test Item Value Reference Range Interpretation Comments MPV (test code = MPV) 8.7 7.4-10.4 [facility] AustinLgmndvfCJBYONMYHH0283-96-03 06:11:00 Test Item Value Reference Range Interpretation Comments RDW (test code = RDW) 13.6 11.5-14.5 [facility] AustinVrxtnrnYRZFQTFPPC7199-08-05 06:11:00 Test Item Value Reference Range Interpretation Comments MCHC (test code = MCHC) 33.2 32.0-36.0 [facility] AustinErkqewfGWTOAYHZBN8487-87-59 06:11:00 Test Item Value Reference Range Interpretation Comments MCH (test code = MCH) 29.6 pg 27.0-31.0 [facility] AustinAnxiglxYPECEJXGHS8439-93-61 06:11:00 Test Item Value Reference Range Interpretation Comments Hct (test code = Hct) 38.3 36.0-48.0 [facility] AustinAlladmlZIPJQNHDOX8309-59-34 06:11:00 Test Item Value Reference Range Interpretation Comments RBC (test code = RBC) 4.30 4.20-5.40 [facility] AustinJbovvisHKHQJOXZWJ1090-99-24 06:11:00 Test Item Value Reference Range Interpretation Comments MCV (test code = MCV) 89.1 80.0-98.0 [facility] AustinPdevwxxXDHXKLGSDJ9664-77-55 06:11:00 Test Item Value Reference Range Interpretation Comments Hgb (test code = Hgb) 12.7 12.0-16.0 [facility] AustinKeayjuuGVCFGCYJVF2952-82-66 06:11:00 Test Item Value Reference Range Interpretation Comments Eosinophils (test code = 2.9 See_Comment [A utomated message] The Eosinophils) system which ge nerated this result tra nsmitted reference range : <=4.0. The reference r kunal was not used to int erpret this result as normal/abnormal . [facility] AustinVjkybfyULQHXIDWWW1456-37-91 06:11:00 Test Item Value Reference Range Interpretation Comments Lymphocytes (test code = Lymphocytes) 28.7 20.0-40.0 [facility] AustinUzivyucJVEOCXNERD8199-29-82 06:11:00 Test Item Value Reference Range Interpretation Comments Monocytes (test code = Monocytes) 9.5 2.0-12.0 [facility] AustinBklpusjVYFZBFZSYQ9375-07-24 06:11:00 Test Item Value Reference Range Interpretation Comments Segs (test code = Segs) 58.7 45.0-75.0 [facility] AustinZwnnhltYDYBOJSADC5193-52-28 06:11:00 Test Item Value Reference Range Interpretation Comments Lymphocytes # (test code = Lymphocytes 2.6 1.0-5.5 #) [facility] AustinIredygkCWTJSCZIDB8202-96-71 06:11:00 Test Item Value Reference Range Interpretation Comments Eosinophils # (test code 0.3 See_Comment [A utomated message] The = Eosinophils #) system wh h generated this result tra nsmitted reference range : <=0.5. The reference r kunal was not used to int erpret this result as normal/abnormal . [facility] AustinVpepqyeJQBAHMLNZK5135-31-23 06:11:00 Test Item Value Reference Range Interpretation Comments Basophils (test code = 0.2 See_Comment [Aut omated message] The Basophils) system which ge nerated this result tra nsmitted reference range : <=1.0. The reference r kunal was not used to int erpret this result as normal/abnormal . [facility] AustinAslrxwuJGHCZNLRQV4665-77-18 06:11:00 Test Item Value Reference Range Interpretation Comments Neutrophils # (test code = Neutrophils 5.3 1.5-8.1 #) [facility] AustinWapliomTDVUANFGVT1527-14-51 06:11:00 Test Item Value Reference Range Interpretation Comments Monocytes # (test code 0.9 See_Comment [Aut omated message] The = Monocytes #) system which generated this result tra nsmitted reference range : <=0.8. The reference r kunal was not used to int erpret this result as normal/abnormal . [facility]2019-03-06 06:11:00 Test Item Value Reference Range Interpretation Comments eGFR (test code = eGFR) 73 [facility]2019-03-06 06:11:00 Test Item Value Reference Range Interpretation Comments Glucose Lvl (test code = Glucose Lvl) 74 70-99 [facility]2019-03-06 06:11:00 Test Item Value Reference Range Interpretation Comments Creatinine Lvl (test code = Creatinine 0.93 0.50-1.40 Lvl) [facility]2019-03-06 06:11:00 Test Item Value Reference Range Interpretation Comments Sodium Lvl (test code = Sodium Lvl) 140 135-145 [facility]2019-03-06 06:11:00 Test Item Value Reference Range Interpretation Comments AGAP (test code = AGAP) 11.9 10.0-20.0 [facility] AustinLynrbaeEHEAMUMJYB0420-23-57 06:11:00 Test Item Value Reference Range Interpretation Comments WBC (test code = WBC) 9.0 3.7-10.4 [facility] AustinLoeinzeTLSHTPLSHE4603-41-61 06:11:00 Test Item Value Reference Range Interpretation Comments Platelet (test code = Platelet) 319 133-450 [facility] AustinNmewmxuMXVOWOUCLB5632-90-92 06:11:00 Test Item Value Reference Range Interpretation Comments MPV (test code = MPV) 8.7 7.4-10.4 [facility] AustinWfmlyhbBHGFNLQQMM1133-27-12 06:11:00 Test Item Value Reference Range Interpretation Comments RDW (test code = RDW) 13.6 11.5-14.5 [facility] AustinPkfossmIYZIXXCFZN9803-98-88 06:11:00 Test Item Value Reference Range Interpretation Comments MCHC (test code = MCHC) 33.2 32.0-36.0 [facility] AustinOpdllboEHCGDJCYOQ4086-91-68 06:11:00 Test Item Value Reference Range Interpretation Comments MCH (test code = MCH) 29.6 pg 27.0-31.0 [facility] AustinZulpeieMXDRAHIKPC1125-73-00 06:11:00 Test Item Value Reference Range Interpretation Comments Hct (test code = Hct) 38.3 36.0-48.0 [facility] AustinAkccuvwNKKYOSSQNI6603-24-45 06:11:00 Test Item Value Reference Range Interpretation Comments RBC (test code = RBC) 4.30 4.20-5.40 [facility] AustinDinhyboFIGGDFPKGY1942-84-15 06:11:00 Test Item Value Reference Range Interpretation Comments MCV (test code = MCV) 89.1 80.0-98.0 [facility] AustinOiymgnjZALGNUUTQX8289-03-51 06:11:00 Test Item Value Reference Range Interpretation Comments Hgb (test code = Hgb) 12.7 12.0-16.0 [facility] AustinJyxhtssTJDQRVNGKJ7838-64-26 06:11:00 Test Item Value Reference Range Interpretation Comments Eosinophils (test code = 2.9 See_Comment [A utomated message] The Eosinophils) system which ge nerated this result tra nsmitted reference range : <=4.0. The reference r kunal was not used to int erpret this result as normal/abnormal . [facility] AustinQzecljbATCIEGYFQC8863-32-79 06:11:00 Test Item Value Reference Range Interpretation Comments Lymphocytes (test code = Lymphocytes) 28.7 20.0-40.0 [facility] AustinUakelkuBOSEVFSFAM1246-03-16 06:11:00 Test Item Value Reference Range Interpretation Comments Monocytes (test code = Monocytes) 9.5 2.0-12.0 [facility] AustinFflkoiqBFJERVLXWM6588-81-48 06:11:00 Test Item Value Reference Range Interpretation Comments Segs (test code = Segs) 58.7 45.0-75.0 [facility] AustinZdanpcyCDEFOGEHLW8029-52-18 06:11:00 Test Item Value Reference Range Interpretation Comments Lymphocytes # (test code = Lymphocytes 2.6 1.0-5.5 #) [facility] AustinZzfagdkADHJXHEOYR9150-74-91 06:11:00 Test Item Value Reference Range Interpretation Comments Eosinophils # (test code 0.3 See_Comment [A utomated message] The = Eosinophils #) system whic h generated this result tra nsmitted reference range : <=0.5. The reference r kunal was not used to int erpret this result as normal/abnormal . [place] 959139-03-06 06:11:00 Test Item Value Reference Range Interpretation Comments Basophils (test code = 0.2 See_Comment [Aut omated message] The Basophils) system which ge nerated this result tra nsmitted reference range : <=1.0. The reference r kunal was not used to int erpret this result as normal/abnormal . [place] 959139-03-06 06:11:00 Test Item Value Reference Range Interpretation Comments Neutrophils # (test code = Neutrophils 5.3 1.5-8.1 #) [facility] AustinCqffsgsEBZJKYWIDO6287-06-70 06:11:00 Test Item Value Reference Range Interpretation Comments Monocytes # (test code 0.9 See_Comment [Aut omated message] The = Monocytes #) system which generated this result tra nsmitted reference range : <=0.8. The reference r uknal was not used to int erpret this result as normal/abnormal . [place] 330339-03-06 06:11:00 Test Item Value Reference Range Interpretation Comments eGFR (test code = eGFR) 73 [facility]2019-03-06 06:11:00 Test Item Value Reference Range Interpretation Comments Glucose Lvl (test code = Glucose Lvl) 74 70-99 [facility]2019-03-06 06:11:00 Test Item Value Reference Range Interpretation Comments Creatinine Lvl (test code = Creatinine 0.93 0.50-1.40 Lvl) [facility]2019-03-06 06:11:00 Test Item Value Reference Range Interpretation Comments Sodium Lvl (test code = Sodium Lvl) 140 135-145 [facility]2019-03-06 06:11:00 Test Item Value Reference Range Interpretation Comments BUN (test code = BUN) 18 7-22 [place] 330339-03-06 06:11:00 Test Item Value Reference Range Interpretation Comments Calcium Lvl (test code = Calcium Lvl) 8.9 8.5-10.5 [facility]2019-03-06 06:11:00 Test Item Value Reference Range Interpretation Comments Potassium Lvl (test code = Potassium 3.9 3.5-5.1 Lvl) [facility]2019-03-06 06:11:00 Test Item Value Reference Range Interpretation Comments Chloride Lvl (test code = Chloride Lvl) 106 95-109 [facility] CVGWH5637-14-07 06:11:00 Test Item Value Reference Range Interpretation Comments CO2 (test code = CO2) 26 24-32 [facility] RQXNQ7461-51-58 06:11:00 Test Item Value Reference Range Interpretation Comments AGAP (test code = AGAP) 11.9 10.0-20.0 [facility] AustinQhzkegtZUPEZEVHOA4629-34-01 06:11:00 Test Item Value Reference Range Interpretation Comments WBC (test code = WBC) 9.0 3.7-10.4 [facility] AustinDskxiufYZXZPMXSQL0107-31-77 06:11:00 Test Item Value Reference Range Interpretation Comments Platelet (test code = Platelet) 319 633-450 [facility] AustinMmvlqzeJEGHZOHOJT6440-69-70 06:11:00 Test Item Value Reference Range Interpretation Comments MPV (test code = MPV) 8.7 7.4-10.4 [facility] AustinUzrferhXRECNVROHU1149-91-80 06:11:00 Test Item Value Reference Range Interpretation Comments RDW (test code = RDW) 13.6 11.5-14.5 [facility] AustinTmbqnjeZQGHDCTFFM3178-25-40 06:11:00 Test Item Value Reference Range Interpretation Comments MCHC (test code = MCHC) 33.2 32.0-36.0 [facility] AustinCokwkhnNKSMDRKUBA0285-03-56 06:11:00 Test Item Value Reference Range Interpretation Comments MCH (test code = MCH) 29.6 pg 27.0-31.0 [facility] AustinVcwdfnrDRQKYGIYKO6056-90-86 06:11:00 Test Item Value Reference Range Interpretation Comments Hct (test code = Hct) 38.3 36.0-48.0 [facility] AustinQrqgbumCZKIMQOAPC2971-48-57 06:11:00 Test Item Value Reference Range Interpretation Comments RBC (test code = RBC) 4.30 4.20-5.40 [facility] AustinYaspqaeZFVIMSXIKX3005-15-56 06:11:00 Test Item Value Reference Range Interpretation Comments MCV (test code = MCV) 89.1 80.0-98.0 [facility] AustinCkqrzxkUWMVATZDER4078-47-00 06:11:00 Test Item Value Reference Range Interpretation Comments Hgb (test code = Hgb) 12.7 12.0-16.0 [facility] AustinDmfphcdXUKNGBSGUD6131-65-48 06:11:00 Test Item Value Reference Range Interpretation Comments Eosinophils (test code = 2.9 See_Comment [A utomated message] The Eosinophils) system which ge nerated this result tra nsmitted reference range : <=4.0. The reference r kunal was not used to int erpret this result as normal/abnormal . [facility] AustinZxchtnrREKWQWYCNW6283-24-88 06:11:00 Test Item Value Reference Range Interpretation Comments Lymphocytes (test code = Lymphocytes) 28.7 20.0-40.0 [facility] AustinFnhngegSDGFXVTBLB1237-53-66 06:11:00 Test Item Value Reference Range Interpretation Comments Monocytes (test code = Monocytes) 9.5 2.0-12.0 [facility] AustinPwnvqcrNQKLMKCSTL2794-20-62 06:11:00 Test Item Value Reference Range Interpretation Comments Segs (test code = Segs) 58.7 45.0-75.0 [facility] AustinViqcrsgUMYZRIHCFP9803-02-95 06:11:00 Test Item Value Reference Range Interpretation Comments Lymphocytes # (test code = Lymphocytes 2.6 1.0-5.5 #) [facility] AustinRaxigpiTOCMKLTFGC9883-87-44 06:11:00 Test Item Value Reference Range Interpretation Comments Eosinophils # (test code 0.3 See_Comment [A utomated message] The = Eosinophils #) system [facility] h generated this result tra nsmitted reference range : <=0.5. The reference r kunal was not used to int erpret this result as normal/abnormal . [facility] AustinKnofvetLWIJDCNTVF9843-13-09 06:11:00 Test Item Value Reference Range Interpretation Comments Basophils (test code = 0.2 See_Comment [Aut omated message] The Basophils) system which ge nerated this result tra nsmitted reference range : <=1.0. The reference r kunal was not used to int erpret this result as normal/abnormal . [facility] AustinLaahmcuZJJTDOZSFD4388-28-62 06:11:00 Test Item Value Reference Range Interpretation Comments Neutrophils # (test code = Neutrophils 5.3 1.5-8.1 #) [facility] AustinKnvlcnmAGEXLNJBRY1936-40-27 06:11:00 Test Item Value Reference Range Interpretation Comments Monocytes # (test code 0.9 See_Comment [Aut omated message] The = Monocytes #) system which generated this result tra nsmitted reference range : <=0.8. The reference r kunal was not used to int erpret this result as normal/abnormal . [facility]2019-03-06 06:11:00 Test Item Value Reference Range Interpretation Comments eGFR (test code = eGFR) 73 [facility]2019-03-06 06:11:00 Test Item Value Reference Range Interpretation Comments Glucose Lvl (test code = Glucose Lvl) 74 70-99 [facility]2019-03-06 06:11:00 Test Item Value Reference Range Interpretation Comments Creatinine Lvl (test code = Creatinine 0.93 0.50-1.40 Lvl) [facility]2019-03-06 06:11:00 Test Item Value Reference Range Interpretation Comments Sodium Lvl (test code = Sodium Lvl) 140 135-145 [facility]2019-03-06 06:11:00 Test Item Value Reference Range Interpretation Comments BUN (test code = BUN) 18 7-22 [facility]2019-03-06 06:11:00 Test Item Value Reference Range Interpretation Comments Calcium Lvl (test code = Calcium Lvl) 8.9 8.5-10.5 [facility]2019-03-06 06:11:00 Test Item Value Reference Range Interpretation Comments Potassium Lvl (test code = Potassium 3.9 3.5-5.1 Lvl) [facility]2019-03-06 06:11:00 Test Item Value Reference Range Interpretation Comments Chloride Lvl (test code = Chloride Lvl) 106 95-109 [facility]2019-03-06 06:11:00 Test Item Value Reference Range Interpretation Comments CO2 (test code = CO2) 26 24-32 [place] 330339-03-06 06:11:00 Test Item Value Reference Range Interpretation Comments AGAP (test code = AGAP) 11.9 10.0-20.0 [facility] AustinFuqbvknFKKSSQZIEM8295-96-46 06:11:00 Test Item Value Reference Range Interpretation Comments WBC (test code = WBC) 9.0 3.7-10.4 [facility] AustinSjnbihsZQSQWZDAFF6108-77-15 06:11:00 Test Item Value Reference Range Interpretation Comments Platelet (test code = Platelet) 319 133-450 [facility] AustinRylntllMQYJDOGZPS0339-28-04 06:11:00 Test Item Value Reference Range Interpretation Comments MPV (test code = MPV) 8.7 7.4-10.4 [facility] AustinHjapuhjEYIZIHGMNT9829-18-89 06:11:00 Test Item Value Reference Range Interpretation Comments RDW (test code = RDW) 13.6 11.5-14.5 [facility] AustinFgdbsbwFGYNTDCXAI8575-71-97 06:11:00 Test Item Value Reference Range Interpretation Comments MCHC (test code = MCHC) 33.2 32.0-36.0 [facility]2019-03-05 06:24:00 Test Item [...] Phosphorus (test code = Phosphorus) 3.9 2.5-4.5 [facility] AustinTcjdodhIKTJLZTPOA5797-68-04 06:24:00 Test Item Value Reference Range Interpretation Comments Basophils # (test code 0.1 See_Comment [Aut omated message] The = Basophils #) system which generated this result tra nsmitted reference range : <=0.2. The reference r kunal was not used to int erpret this result as normal/abnormal . [facility] AustinBpnjbhzYURDZUZJEI7110-93-95 06:24:00 Test Item Value Reference Range Interpretation Comments Eosinophils # (test code 0.2 See_Comment [A utomated message] The = Eosinophils #) system whic h generated this result tra nsmitted reference range : <=0.5. The reference r kunal was not used to int erpret this result as normal/abnormal . [facility] AustinMijlgzkYDJYBQPBOX4168-87-68 06:24:00 Test Item Value Reference Range Interpretation Comments Eosinophils (test code = 2.0 See_Comment [A utomated message] The Eosinophils) system which ge nerated this result tra nsmitted reference range : <=4.0. The reference r kunal was not used to int erpret this result as normal/abnormal . [facility] AustinHestdvtILGVMWDVQL8083-38-76 06:24:00 Test Item Value Reference Range Interpretation Comments Lymphocytes # (test code = Lymphocytes 2.1 1.0-5.5 #) [facility] AustinMumynobIQIYNNNYIO0435-13-01 06:24:00 Test Item Value Reference Range Interpretation Comments Monocytes # (test code 0.8 See_Comment [Aut omated message] The = Monocytes #) system which generated this result tra nsmitted reference range : <=0.8. The reference r kunal was not used to int erpret this result as normal/abnormal . [facility] AustinUldefalSTIODOBWSP8197-91-12 06:24:00 Test Item Value Reference Range Interpretation Comments Basophils (test code = 0.8 See_Comment [Aut omated message] The Basophils) system which ge nerated this result tra nsmitted reference range : <=1.0. The reference r kunal was not used to int erpret this result as normal/abnormal . [facility] AustinXecizwzSYXZOVZDAU8095-14-37 06:24:00 Test Item Value Reference Range Interpretation Comments Neutrophils # (test code = Neutrophils 5.4 1.5-8.1 #) [facility] AustinGqeiwqkKMZRAUSCZD1972-90-79 06:24:00 Test Item Value Reference Range Interpretation Comments Lymphocytes (test code = Lymphocytes) 24.5 20.0-40.0 [facility] AustinUikobvwIJLMMDIYIP5339-24-16 06:24:00 Test Item Value Reference Range Interpretation Comments Segs (test code = Segs) 63.8 45.0-75.0 [facility] AustinJgwhuoiSOOBIRHCJM2002-75-70 06:24:00 Test Item Value Reference Range Interpretation Comments Monocytes (test code = Monocytes) 8.9 2.0-12.0 [facility] AustinRkdjosgIASWGZGYVV1433-84-39 06:24:00 Test Item Value Reference Range Interpretation Comments Platelet (test code = Platelet) 262 133-450 [facility] AustinQjabfsoXPFLPMDSPD1611-75-63 06:24:00 Test Item Value Reference Range Interpretation Comments MPV (test code = MPV) 8.2 7.4-10.4 [facility] AustinGrvvhqcDOUHUAKTON0398-31-78 06:24:00 Test Item Value Reference Range Interpretation Comments Hgb (test code = Hgb) 12.3 12.0-16.0 [facility] AustinGmhmtkiECXDRXXGCJ8146-58-18 06:24:00 Test Item Value Reference Range Interpretation Comments RBC (test code = RBC) 4.13 4.20-5.40 [facility] AustinLiobcliCDJHSCQOXI1213-20-44 06:24:00 Test Item Value Reference Range Interpretation Comments WBC (test code = WBC) 8.4 3.7-10.4 [facility] AustinGfbzjwoHQVRGZGMCN1032-27-88 06:24:00 Test Item Value Reference Range Interpretation Comments MCV (test code = MCV) 88.9 80.0-98.0 [facility] AustinOtvejofZLHSQVWNAF1565-38-69 06:24:00 Test Item Value Reference Range Interpretation Comments MCH (test code = MCH) 29.9 pg 27.0-31.0 [facility] AustinUathrhpGPGRDXMAGT6582-89-43 06:24:00 Test Item Value Reference Range Interpretation Comments Hct (test code = Hct) 36.7 36.0-48.0 [facility] AustinLsarchmRBQSPYXZKU1965-73-40 06:24:00 Test Item Value Reference Range Interpretation Comments RDW (test code = RDW) 13.6 11.5-14.5 [facility] AustinXsmpzhrCSQMCXFBJY3964-27-05 06:24:00 Test Item Value Reference Range Interpretation Comments MCHC (test code = MCHC) 33.6 32.0-36.[address] [facility]2019-03-05 06:24:00 Test Item Value Reference Range Interpretation Comments Ca Norm WB (test code = Ca Norm WB) 1.14 1.05-1.[address] [facility]2019-03-05 06:24:00 Test Item Value Reference Range Interpretation Comments Ca Ion WB (test code = Ca Ion WB) 1.15 1.05-1.25 [facility]2019-03-05 06:24:00 Test Item [...] Phosphorus (test code = Phosphorus) 3.9 2.5-4.5 [facility] AustinTsykkutEWXTBRYDEV5802-05-14 06:24:00 Test Item Value Reference Range Interpretation Comments Basophils # (test code 0.1 See_Comment [Aut omated message] The = Basophils #) system which generated this result tra nsmitted reference range : <=0.2. The reference r kunal was not used to int erpret this result as normal/abnormal . [facility] AustinPndfdgzUBSSPDONFI0593-77-98 06:24:00 Test Item Value Reference Range Interpretation Comments Eosinophils # (test code 0.2 See_Comment [A utomated message] The = Eosinophils #) system whic h generated this result tra nsmitted reference range : <=0.5. The reference r kunal was not used to int erpret this result as normal/abnormal . [facility] AustinRrrowxmHFKGOUNWQT1807-88-45 06:24:00 Test Item Value Reference Range Interpretation Comments Eosinophils (test code = 2.0 See_Comment [A utomated message] The Eosinophils) system which ge nerated this result tra nsmitted reference range : <=4.0. The reference r kunal was not used to int erpret this result as normal/abnormal . [facility] AustinEtwybryFRAFWQAGTV7442-29-64 06:24:00 Test Item Value Reference Range Interpretation Comments Lymphocytes # (test code = Lymphocytes 2.1 1.0-5.5 #) [facility] AustinVpsizgdRGCNNBMHNL5645-59-19 06:24:00 Test Item Value Reference Range Interpretation Comments Monocytes # (test code 0.8 See_Comment [Aut omated message] The = Monocytes #) system which generated this result tra nsmitted reference range : <=0.8. The reference r kunal was not used to int erpret this result as normal/abnormal . [facility] AustinKarxysoPUNJOYSYJM3669-25-35 06:24:00 Test Item Value Reference Range Interpretation Comments Basophils (test code = 0.8 See_Comment [Aut omated message] The Basophils) system which ge nerated this result tra nsmitted reference range : <=1.0. The reference r kunal was not used to int erpret this result as normal/abnormal . [facility] AustinNgqumtfHTHKRJMXID7488-97-32 06:24:00 Test Item Value Reference Range Interpretation Comments Neutrophils # (test code = Neutrophils 5.4 1.5-8.1 #) [facility] AustinHvruqzjNHOTQJNRRF6081-97-88 06:24:00 Test Item Value Reference Range Interpretation Comments Lymphocytes (test code = Lymphocytes) 24.5 20.0-40.0 [facility] AustinQwqszkoCCMSMUCEDI8516-87-83 06:24:00 Test Item Value Reference Range Interpretation Comments Segs (test code = Segs) 63.8 45.0-75.0 [facility] AustinOpsjzcyHMLFDXJSTA2120-86-57 06:24:00 Test Item Value Reference Range Interpretation Comments Monocytes (test code = Monocytes) 8.9 2.0-12.0 [facility] AustinAhtpzorLFWQDFJNPM9533-72-33 06:24:00 Test Item Value Reference Range Interpretation Comments Platelet (test code = Platelet) 262 133-450 [facility] AustinDgicmobJLEUDRUKTG3141-80-00 06:24:00 Test Item Value Reference Range Interpretation Comments MPV (test code = MPV) 8.2 7.4-10.4 [facility] AustinMrbskxpLYLTVPQWJS7551-24-19 06:24:00 Test Item Value Reference Range Interpretation Comments Hgb (test code = Hgb) 12.3 12.0-16.0 [facility] AustinFdyplfiZMAMQLZWOP4083-63-66 06:24:00 Test Item Value Reference Range Interpretation Comments RBC (test code = RBC) 4.13 4.20-5.40 [facility] AustinNuzuziuVSSBNIMPSK4829-32-21 06:24:00 Test Item Value Reference Range Interpretation Comments WBC (test code = WBC) 8.4 3.7-10.4 [facility] AustinSgdcnfhSODPMAAEYA3492-44-32 06:24:00 Test Item Value Reference Range Interpretation Comments MCV (test code = MCV) 88.9 80.0-98.0 [facility] AustinHnwpnfkUSGJFPYGFY9355-30-83 06:24:00 Test Item Value Reference Range Interpretation Comments MCH (test code = MCH) 29.9 pg 27.0-31.0 [facility] AustinSnuozyyQETCFYQPXI4684-23-89 06:24:00 Test Item Value Reference Range Interpretation Comments Hct (test code = Hct) 36.7 36.0-48.0 [facility] AustinTbzdjdhILCRTQZFVQ3832-54-09 06:24:00 Test Item Value Reference Range Interpretation Comments RDW (test code = RDW) 13.6 11.5-14.5 [facility] AustinSoatlpfJAUCNVINPD4024-22-55 06:24:00 Test Item Value Reference Range Interpretation Comments MCHC (test code = MCHC) 33.6 32.0-36.0 [facility] EVNAVEB4598-97-40 06:24:00 Test Item Value Reference Range Interpretation Comments Ca Norm WB (test code = Ca Norm WB) 1.14 1.05-1.[address] [facility]2019-03-05 06:24:00 Test Item Value Reference Range Interpretation Comments Ca Ion WB (test code = Ca Ion WB) 1.15 1.05-1.25 [facility]2019-03-05 06:24:00 Test Item [...] Phosphorus (test code = Phosphorus) 3.9 2.5-4.5 [facility] AustinErzsxwpFRQQSSUNNQ4622-08-08 06:24:00 Test Item Value Reference Range Interpretation Comments Basophils # (test code 0.1 See_Comment [Aut omated message] The = Basophils #) system which generated this result tra nsmitted reference range : <=0.2. The reference r kunal was not used to int erpret this result as normal/abnormal . [facility] AustinLknhjgwFPNRKPTPOK8347-92-79 06:24:00 Test Item Value Reference Range Interpretation Comments Eosinophils # (test code 0.2 See_Comment [A utomated message] The = Eosinophils #) system whic h generated this result tra nsmitted reference range : <=0.5. The reference r kunal was not used to int erpret this result as normal/abnormal . [facility] AustinVhubnhwXGELADUKMX6043-03-27 06:24:00 Test Item Value Reference Range Interpretation Comments Eosinophils (test code = 2.0 See_Comment [A utomated message] The Eosinophils) system which ge nerated this result tra nsmitted reference range : <=4.0. The reference r kunal was not used to int erpret this result as normal/abnormal . [place] 959139-03-05 06:24:00 Test Item Value Reference Range Interpretation Comments Lymphocytes # (test code = Lymphocytes 2.1 1.0-5.5 #) [facility] AustinVdjkvmlETCRAYWTXS8269-15-92 06:24:00 Test Item Value Reference Range Interpretation Comments Monocytes # (test code 0.8 See_Comment [Aut omated message] The = Monocytes #) system which generated this result tra nsmitted reference range : <=0.8. The reference r kunal was not used to int erpret this result as normal/abnormal . [facility] AustinGuenamuOVGGVDTAYC6846-85-18 06:24:00 Test Item Value Reference Range Interpretation Comments Basophils (test code = 0.8 See_Comment [Aut omated message] The Basophils) system which ge nerated this result tra nsmitted reference range : <=1.0. The reference r kunal was not used to int erpret this result as normal/abnormal . [facility] AustinNcutnnvUSXHDERDPG5427-06-53 06:24:00 Test Item Value Reference Range Interpretation Comments Neutrophils # (test code = Neutrophils 5.4 1.5-8.1 #) [facility] AustinRqbnscaXBTTKQEDPL1724-44-21 06:24:00 Test Item Value Reference Range Interpretation Comments Lymphocytes (test code = Lymphocytes) 24.5 20.0-40.0 [facility] AustinKfzmxbdKATIHOAGIE1303-06-40 06:24:00 Test Item Value Reference Range Interpretation Comments Segs (test code = Segs) 63.8 45.0-75.0 [facility] AustinVzuoaxqKFQTSYLLOO0299-63-57 06:24:00 Test Item Value Reference Range Interpretation Comments Monocytes (test code = Monocytes) 8.9 2.0-12.0 [facility] AustinMmmrlthPGZITDNJIM8263-33-93 06:24:00 Test Item Value Reference Range Interpretation Comments Platelet (test code = Platelet) 262 133-450 [facility] AustinKjvgjdfRAHBWSDTHA1512-19-08 06:24:00 Test Item Value Reference Range Interpretation Comments MPV (test code = MPV) 8.2 7.4-10.4 [facility] AustinXyhdhynVLFXDFVAIN5146-21-14 06:24:00 Test Item Value Reference Range Interpretation Comments Hgb (test code = Hgb) 12.3 12.0-16.0 [facility] AustinMohcchmIFJEWVAGIG4895-65-48 06:24:00 Test Item Value Reference Range Interpretation Comments RBC (test code = RBC) 4.13 4.20-5.40 [facility] AustinKsknjbsUQULRZQAOG8972-03-44 06:24:00 Test Item Value Reference Range Interpretation Comments WBC (test code = WBC) 8.4 3.7-10.4 [facility] AustinUwadjfjRCVGCLXMID1839-29-29 06:24:00 Test Item Value Reference Range Interpretation Comments MCV (test code = MCV) 88.9 80.0-98.0 [facility] AustinUsgbnccRSBGCSAHEV8078-96-52 06:24:00 Test Item Value Reference Range Interpretation Comments MCH (test code = MCH) 29.9 pg 27.0-31.0 [facility] AustinPtxicomURPLNJWPNO6432-19-02 06:24:00 Test Item Value Reference Range Interpretation Comments Hct (test code = Hct) 36.7 36.0-48.0 [facility] AustinGhuodhiPWYREZIFBR1159-80-75 06:24:00 Test Item Value Reference Range Interpretation Comments RDW (test code = RDW) 13.6 11.5-14.5 [facility] AustinJpviuekMHIJLVILBW1655-84-32 06:24:00 Test Item Value Reference Range Interpretation Comments MCHC (test code = MCHC) 33.6 32.0-36.0 [facility] DistrictPARATHYROID NRVXJXF8669-96-08 06:24:00 Test Item Value Reference Range Interpretation Comments Ca Norm WB (test code = Ca Norm WB) 1.14 1.05-1.25 [facility]ATHY[facility]ID VCFVNJP0562-27-95 06:24:00 Test Item Value Reference Range Interpretation Comments Ca Ion WB (test code = Ca Ion WB) 1.15 1.05-1.25 [facility] DistrictCHEM KVWOK3291-07-87 06:24:00 Test Item Value Reference Range Interpretation Comments Magnesium Lvl (test code = Magnesium 2.0 1.8-2.4 Lvl) [facility]annDU[facility] HEALTHSZCDA6384-93-20 06:24:00 Test Item Value Reference Range Interpretation [...] Phosphorus (test code = Phosphorus) 3.9 2.5-4.5 [facility] AustinHgxparmGYFZUEBAJG9873-55-98 06:24:00 Test Item Value Reference Range Interpretation Comments Basophils # (test code 0.1 See_Comment [Aut omated message] The = Basophils #) system which generated this result tra nsmitted reference range : <=0.2. The reference r kunal was not used to int erpret this result as normal/abnormal . [facility] AustinQyvxnjyKKQQCLSFSZ1552-50-24 06:24:00 Test Item Value Reference Range Interpretation Comments Eosinophils # (test code 0.2 See_Comment [A utomated message] The = Eosinophils #) system whic h generated this result tra nsmitted reference range : <=0.5. The reference r kunal was not used to int erpret this result as normal/abnormal . [facility] AustinDlxtrmeOXDBVAZAYG6166-46-31 06:24:00 Test Item Value Reference Range Interpretation Comments Eosinophils (test code = 2.0 See_Comment [A utomated message] The Eosinophils) system which ge nerated this result tra nsmitted reference range : <=4.0. The reference r kunal was not used to int erpret this result as normal/abnormal . [facility] AustinZjpgzbaXZVWWSHDKO5258-90-35 06:24:00 Test Item Value Reference Range Interpretation Comments Lymphocytes # (test code = Lymphocytes 2.1 1.0-5.5 #) [facility] AustinCatarakEILZYXUZKY7624-24-06 06:24:00 Test Item Value Reference Range Interpretation Comments Monocytes # (test code 0.8 See_Comment [Aut omated message] The = Monocytes #) system which generated this result tra nsmitted reference range : <=0.8. The reference r kunal was not used to int erpret this result as normal/abnormal . [facility] AustinUqszaljDHZXUZTLVP9185-68-21 06:24:00 Test Item Value Reference Range Interpretation Comments Basophils (test code = 0.8 See_Comment [Aut omated message] The Basophils) system which ge nerated this result tra nsmitted reference range : <=1.0. The reference r kunal was not used to int erpret this result as normal/abnormal . [facility] AustinHfkoazjCOHBRSHYCX5599-45-82 06:24:00 Test Item Value Reference Range Interpretation Comments Neutrophils # (test code = Neutrophils 5.4 1.5-8.1 #) [facility] AustinFjuunucCKYRUKIQNT2435-45-89 06:24:00 Test Item Value Reference Range Interpretation Comments Lymphocytes (test code = Lymphocytes) 24.5 20.0-40.0 [facility] AustinGdipixgYVJIANTWYF8369-22-08 06:24:00 Test Item Value Reference Range Interpretation Comments Segs (test code = Segs) 63.8 45.0-75.0 [facility] AustinRhmedxkSYDFRHRUPL5956-28-22 06:24:00 Test Item Value Reference Range Interpretation Comments Monocytes (test code = Monocytes) 8.9 2.0-12.0 [facility] AustinQxmxkknWHWMPLFUXH3035-42-10 06:24:00 Test Item Value Reference Range Interpretation Comments Platelet (test code = Platelet) 262 133-450 [facility] AustinGhhrodkPIESWOJLBQ4245-50-05 06:24:00 Test Item Value Reference Range Interpretation Comments MPV (test code = MPV) 8.2 7.4-10.4 [facility] AustinWwvrbakWNGYYCKMYT0989-27-98 06:24:00 Test Item Value Reference Range Interpretation Comments Hgb (test code = Hgb) 12.3 12.0-16.0 [facility] AustinYfftqsbPYIEGMTQUN5013-68-33 06:24:00 Test Item Value Reference Range Interpretation Comments RBC (test code = RBC) 4.13 4.20-5.40 [facility] AustinNvosclmZPCVMGLVZB6575-74-08 06:24:00 Test Item Value Reference Range Interpretation Comments WBC (test code = WBC) 8.4 3.7-10.4 [facility] AustinLacoydzDDNTSAKBCQ0784-00-62 06:24:00 Test Item Value Reference Range Interpretation Comments MCV (test code = MCV) 88.9 80.0-98.0 [facility] AustinTgejbuoIWRHXZWSRW2917-57-96 06:24:00 Test Item Value Reference Range Interpretation Comments MCH (test code = MCH) 29.9 pg 27.0-31.0 [facility] AustinCnagsroIJICHYYECI0446-66-20 06:24:00 Test Item Value Reference Range Interpretation Comments Hct (test code = Hct) 36.7 36.0-48.0 [facility] AustinUapgnyrFWKYZUIYTR7680-15-90 06:24:00 Test Item Value Reference Range Interpretation Comments RDW (test code = RDW) 13.6 11.5-14.5 [facility] AustinYiaajklFXOLDLFBHS8769-98-90 06:24:00 Test Item Value Reference Range Interpretation Comments MCHC (test code = MCHC) 33.6 32.0-36.0 [facility] DistrictPARATHYROID NBJRXFI7471-59-25 06:24:00 Test Item Value Reference Range Interpretation Comments Ca Norm WB (test code = Ca Norm WB) 1.14 1.05-1.25 [facility] DistrictPARATHYROID IEPEUCC0039-53-33 06:24:00 Test Item Value Reference Range Interpretation Comments Ca Ion WB (test code = Ca Ion WB) 1.15 1.05-1.25 [facility] DistrictCHEM KDJFB9838-06-37 07:49:00 Test Item Value Reference Range Interpretation Comments Phosphorus (test code = Phosphorus) 3.2 2.5-4.5 [facility] DistrictCHEM LJYBV3015-87-02 07:49:00 Test Item Value Reference Range Interpretation Comments Magnesium Lvl (test code = Magnesium 1.9 1.8-2.4 Lvl) [facility]2019-03-04 07:49:00 Test Item Value Reference Range Interpretation Comments eGFR (test code = eGFR) 81 [facility]2019-03-04 07:49:00 Test Item Value Reference Range Interpretation Comments AGAP (test code = AGAP) 10.9 10.0-20.0 [facility]2019-03-04 07:49:00 Test Item Value Reference Range Interpretation Comments Calcium Lvl (test code = Calcium Lvl) 8.5 8.5-10.5 [facility]2019-03-04 07:49:00 Test Item Value Reference Range Interpretation Comments Potassium Lvl (test code = Potassium 3.9 3.5-5.1 Lvl) [place] 330339-03-04 07:49:00 Test Item Value Reference Range Interpretation [...] CO2 (test code = CO2) 24 24-32 [facility] AustinYwgirmoIXSUDRRBLJ5343-14-37 07:49:00 Test Item Value Reference Range Interpretation Comments Segs (test code = Segs) 86.1 45.0-75.0 [facility] AustinHhmspmwERVRLGQQRI7596-45-54 07:49:00 Test Item Value Reference Range Interpretation Comments Basophils (test code = 0.4 See_Comment [Aut omated message] The Basophils) system which ge nerated this result tra nsmitted reference range : <=1.0. The reference r kunal was not used to int erpret this result as normal/abnormal . [facility] AustinXhsoyatCXPQRYSDDO6623-49-61 07:49:00 Test Item Value Reference Range Interpretation Comments Neutrophils # (test code = Neutrophils 12.7 1.5-8.1 #) [facility] AustinKbyhzcrJJMVKSWCZX8193-30-45 07:49:00 Test Item Value Reference Range Interpretation Comments Lymphocytes (test code = Lymphocytes) 6.3 20.0-40.0 [facility] AustinDlopxewZAHUYAQEJE2198-83-28 07:49:00 Test Item Value Reference Range Interpretation Comments Monocytes (test code = Monocytes) 7.2 2.0-12.0 [facility] AustinGakhtwePDZQZECMZV2321-61-43 07:49:00 Test Item Value Reference Range Interpretation Comments Lymphocytes # (test code = Lymphocytes 0.9 1.0-5.5 #) [facility] AustinMrgvtqoREPKKAZHLA4493-07-04 07:49:00 Test Item Value Reference Range Interpretation Comments Basophils # (test code 0.1 See_Comment [Aut omated message] The = Basophils #) system which generated this result tra nsmitted reference range : <=0.2. The reference r kunal was not used to int erpret this result as normal/abnormal . [facility] AustinZdxnoypCMZLBXXEOW7514-73-58 07:49:00 Test Item Value Reference Range Interpretation Comments Monocytes # (test code 1.1 See_Comment [Aut omated message] The = Monocytes #) system which generated this result tra nsmitted reference range : <=0.8. The reference r kunal was not used to int erpret this result as normal/abnormal . [facility] AustinHtvsyzoORNWFKSFTA7984-64-66 07:49:00 Test Item Value Reference Range Interpretation Comments MPV (test code = MPV) 8.3 7.4-10.4 [facility] AustinTzagozhQTGYVFUHZW9483-79-77 07:49:00 Test Item Value Reference Range Interpretation Comments MCHC (test code = MCHC) 33.3 32.0-36.0 [facility] AustinQykbtbiPHCUKWUQGW6506-72-27 07:49:00 Test Item Value Reference Range Interpretation Comments RDW (test code = RDW) 13.5 11.5-14.5 [facility] AustinHdyxrfcSAAJMRHBGH8932-13-87 07:49:00 Test Item Value Reference Range Interpretation Comments Platelet (test code = Platelet) 330 133-450 [facility] AustinSwvjihuWTUYRAMGKC6569-04-49 07:49:00 Test Item Value Reference Range Interpretation Comments Hgb (test code = Hgb) 12.8 12.0-16.0 [facility] AustinJrklqzeTVXZDJNCSH0340-56-86 07:49:00 Test Item Value Reference Range Interpretation Comments Hct (test code = Hct) 38.4 36.0-48.0 [facility] AustinAjdufnqSNOQUMRXPU9809-98-15 07:49:00 Test Item Value Reference Range Interpretation Comments MCV (test code = MCV) 88.1 80.0-98.0 [facility] AustinZhyajylTGTIBGDZRC3522-58-71 07:49:00 Test Item Value Reference Range Interpretation Comments MCH (test code = MCH) 29.4 pg 27.0-31.0 [facility] AustinZuxkxxpDEDSBELEWQ5987-56-63 07:49:00 Test Item Value Reference Range Interpretation Comments WBC (test code = WBC) 14.7 3.7-10.4 [facility] AustinJwxfsvaZVQKJELEGD0048-07-74 07:49:00 Test Item Value Reference Range Interpretation Comments RBC (test code = RBC) 4.36 4.20-5.40 [facility] DistrictPARATHYROID MPWCMPJ3118-70-20 07:49:00 Test Item Value Reference Range Interpretation Comments Ca Ion WB (test code = Ca Ion WB) 1.15 1.05-1.25 [facility]ATHYROID RDSEFOS4447-49-90 07:49:00 Test Item Value Reference Range Interpretation Comments Ca Norm WB (test code = Ca Norm WB) 1.16 1.05-1.25 [facility] AustinFojphgmMVUAJMKLIQ1123-08-88 07:49:00 Test Item Value Reference Range Interpretation Comments Segs (test code = Segs) 86.1 45.0-75.0 [facility] AustinLeeorbgXURFNADHRU9957-61-82 07:49:00 Test Item Value Reference Range Interpretation Comments Basophils (test code = 0.4 See_Comment [Aut omated message] The Basophils) system which ge nerated this result tra nsmitted reference range : <=1.0. The reference r kunal was not used to int erpret this result as normal/abnormal . [facility] AustinHijfomyEZPLONHLXD3664-87-24 07:49:00 Test Item Value Reference Range Interpretation Comments Neutrophils # (test code = Neutrophils 12.7 1.5-8.1 #) [facility] AustinLuowogfRMAILHQBWW1680-80-74 07:49:00 Test Item Value Reference Range Interpretation Comments Lymphocytes (test code = Lymphocytes) 6.3 20.0-40.0 [facility] AustinLmijwsxZISGNEMTNR5388-89-90 07:49:00 Test Item Value Reference Range Interpretation Comments Monocytes (test code = Monocytes) 7.2 2.0-12.0 [facility] AustinAjgawgzLTSBZQZEGB0596-55-67 07:49:00 Test Item Value Reference Range Interpretation Comments Lymphocytes # (test code = Lymphocytes 0.9 1.0-5.5 #) [facility] AustinLfxqmleBSDMANHUTW1836-01-38 07:49:00 Test Item Value Reference Range Interpretation Comments Basophils # (test code 0.1 See_Comment [Aut omated message] The = Basophils #) system which generated this result tra nsmitted reference range : <=0.2. The reference r kunal was not used to int erpret this result as normal/abnormal . [facility] AustinHblqowmLSNTLAEYRK9228-72-87 07:49:00 Test Item Value Reference Range Interpretation Comments Monocytes # (test code 1.1 See_Comment [Aut omated message] The = Monocytes #) system which generated this result tra nsmitted reference range : <=0.8. The reference r kunal was not used to int erpret this result as normal/abnormal . [facility] AustinGgynpepFGWZTFYSLZ2812-94-03 07:49:00 Test Item Value Reference Range Interpretation Comments MPV (test code = MPV) 8.3 7.4-10.4 [facility] AustinNtsiaoiJTJOBSBEQA8305-12-11 07:49:00 Test Item Value Reference Range Interpretation Comments MCHC (test code = MCHC) 33.3 32.0-36.0 [facility] AustinYxuijseGXLHKKRDGL5701-93-86 07:49:00 Test Item Value Reference Range Interpretation Comments RDW (test code = RDW) 13.5 11.5-14.5 [facility] AustinGmuctbwSLAXLTTKQK2447-87-44 07:49:00 Test Item Value Reference Range Interpretation Comments Platelet (test code = Platelet) 330 133-450 [facility] AustinQlasncrEOWNOOGZTN3400-70-25 07:49:00 Test Item Value Reference Range Interpretation Comments Hgb (test code = Hgb) 12.8 12.0-16.0 [facility] DistrictUbbissfKXDKKVOJDP7701-31-74 07:49:00 Test Item Value Reference Range Interpretation Comments Hct (test code = Hct) 38.4 36.0-48.0 [facility] DistrictVgldprnVBKXMVSGEV9289-08-25 07:49:00 Test Item Value Reference Range Interpretation Comments MCV (test code = MCV) 88.1 80.0-98.0 [facility] AustinWzgstyhAGSKUVVRBM8280-94-71 07:49:00 Test Item Value Reference Range Interpretation Comments MCH (test code = MCH) 29.4 pg 27.0-31.0 [facility] AustinGasdlmbPXIENOODDS3237-67-20 07:49:00 Test Item Value Reference Range Interpretation Comments WBC (test code = WBC) 14.7 3.7-10.4 [facility] AustinAfcaupdHVZNQZRKDF4521-78-80 07:49:00 Test Item Value Reference Range Interpretation Comments RBC (test code = RBC) 4.36 4.20-5.40 [facility] DistrictPARATHYROID OBRWCRV7885-24-43 07:49:00 Test Item Value Reference Range Interpretation Comments Ca Ion WB (test code = Ca Ion WB) 1.15 1.05-1.25 [facility]annPARATHYROID ZENELXU2307-97-05 07:49:00 Test Item Value Reference Range Interpretation Comments Ca Norm WB (test code = Ca Norm WB) 1.16 1.05-1.25 [facility]annCHEM VZLRW2220-49-68 07:49:00 Test Item Value Reference Range Interpretation Comments Phosphorus (test code = Phosphorus) 3.2 2.5-4.5 [facility]annCHEM VFRHN5653-10-50 07:49:00 Test Item Value Reference Range Interpretation Comments Magnesium Lvl (test code = Magnesium 1.9 1.8-2.4 Lvl) [facility]annCHEM SGAUB6200-04-48 07:49:00 Test Item Value Reference Range Interpretation Comments eGFR (test code = eGFR) 81 [facility] CenterannCHEM UTUAP3517-38-77 07:49:00 Test Item Value Reference Range Interpretation Comments AGAP (test code = AGAP) 10.9 10.0-20.0 [facility] DistrictWacai WOIVB3292-13-19 07:49:00 Test Item Value Reference Range Interpretation Comments Calcium Lvl (test code = Calcium Lvl) 8.5 8.5-10.5 [place] 330339-03-04 07:49:00 Test Item Value Reference Range Interpretation Comments Potassium Lvl (test code = Potassium 3.9 3.5-5.1 Lvl) [place] 330339-03-04 07:49:00 Test Item Value Reference Range Interpretation Comments Sodium Lvl (test code = Sodium Lvl) 142 135-145 [place] 330339-03-04 07:49:00 Test Item Value Reference Range Interpretation Comments Chloride Lvl (test code = Chloride Lvl) 111 95-109 [place] 330339-03-04 07:49:00 Test Item Value Reference Range Interpretation Comments Creatinine Lvl (test code = Creatinine 0.96 0.50-1.40 Lvl) [facility]2019-03-04 07:49:00 Test Item Value Reference Range Interpretation Comments BUN (test code = BUN) 17 7-22 [place] 330339-03-04 07:49:00 Test Item Value Reference Range Interpretation Comments Glucose Lvl (test code = Glucose Lvl) 126 70-99 [facility]2019-03-04 07:49:00 Test Item Value Reference Range Interpretation Comments CO2 (test code = CO2) 24 24-32 [facility] AustinIivkjuhEALPBRAFED0246-32-45 07:49:00 Test Item Value Reference Range Interpretation Comments Segs (test code = Segs) 86.1 45.0-75.0 [place] 959139-03-04 07:49:00 Test Item Value Reference Range Interpretation Comments Basophils (test code = 0.4 See_Comment [Aut omated message] The Basophils) system which ge nerated this result tra nsmitted reference range : <=1.0. The reference r kunal was not used to int erpret this result as normal/abnormal . [facility] AustinSipbshiWVTLWKQPFI5023-95-92 07:49:00 Test Item Value Reference Range Interpretation Comments Neutrophils # (test code = Neutrophils 12.7 1.5-8.1 #) [facility] AustinLgddyvmEDNAQKGZTD2730-96-29 07:49:00 Test Item Value Reference Range Interpretation Comments Lymphocytes (test code = Lymphocytes) 6.3 20.0-40.0 [place] 959139-03-04 07:49:00 Test Item Value Reference Range Interpretation Comments Monocytes (test code = Monocytes) 7.2 2.0-12.0 [facility] AustinPtmmihkJHGBUBSDEF1507-30-39 07:49:00 Test Item Value Reference Range Interpretation Comments Lymphocytes # (test code = Lymphocytes 0.9 1.0-5.5 #) [facility]HfygrplYCHYMXKIUT6185-61-41 07:49:00 Test Item Value Reference Range Interpretation Comments Basophils # (test code 0.1 See_Comment [Aut omated message] The = Basophils #) system which generated this result tra nsmitted reference range : <=0.2. The reference r kunal was not used to int erpret this result as normal/abnormal . [facility] AustinEisgwzyQJMZWSFVSX7827-36-41 07:49:00 Test Item Value Reference Range Interpretation Comments Monocytes # (test code 1.1 See_Comment [Aut omated message] The = Monocytes #) system which generated this result tra nsmitted reference range : <=0.8. The reference r kunal was not used to int erpret this result as normal/abnormal . [facility] AustinNukmjidXUCHUSLTRE4234-96-14 07:49:00 Test Item Value Reference Range Interpretation Comments MPV (test code = MPV) 8.3 7.4-10.4 [facility] AustinLkpxkmpITEAOHPCSI9547-45-65 07:49:00 Test Item Value Reference Range Interpretation Comments MCHC (test code = MCHC) 33.3 32.0-36.0 [facility] AustinBdpnlpwHQWBTNYUAX5992-54-68 07:49:00 Test Item Value Reference Range Interpretation Comments RDW (test code = RDW) 13.5 11.5-14.5 [facility] AustinRfsdocfURPFFYXUDH5489-34-10 07:49:00 Test Item Value Reference Range Interpretation Comments Platelet (test code = Platelet) 330 133-450 [facility] AustinTaqecyuUAYDWKOYNY1294-01-91 07:49:00 Test Item Value Reference Range Interpretation Comments Hgb (test code = Hgb) 12.8 12.0-16.0 [facility] AustinEeffqelCEZSHXLNPD1282-44-73 07:49:00 Test Item Value Reference Range Interpretation Comments Hct (test code = Hct) 38.4 36.0-48.0 [facility] AustinTvytqrgFKRCUPXQDS6061-58-92 07:49:00 Test Item Value Reference Range Interpretation Comments MCV (test code = MCV) 88.1 80.0-98.0 [facility] AustinAelhwxnRQSLLQXKDE7775-85-00 07:49:00 Test Item Value Reference Range Interpretation Comments MCH (test code = MCH) 29.4 pg 27.0-31.0 [facility] AustinPhlskciEBADAVHUQF5908-00-45 07:49:00 Test Item Value Reference Range Interpretation Comments WBC (test code = WBC) 14.7 3.7-10.4 [facility] AustinUiwlclbYDLQPSOSEJ2539-25-30 07:49:00 Test Item Value Reference Range Interpretation Comments RBC (test code = RBC) 4.36 4.20-5.[address] [facility]2019-03-04 07:49:00 Test Item Value Reference Range Interpretation Comments Ca Ion WB (test code = Ca Ion WB) 1.15 1.05-1.[address] [facility]2019-03-04 07:49:00 Test Item Value Reference Range Interpretation Comments Ca Norm WB (test code = Ca Norm WB) 1.16 1.05-1.25 [facility]2019-03-04 07:49:00 Test Item Value Reference Range Interpretation Comments Phosphorus (test code = Phosphorus) 3.2 2.5-4.5 [facility]2019-03-04 07:49:00 Test Item Value Reference Range Interpretation Comments Magnesium Lvl (test code = Magnesium 1.9 1.8-2.4 Lvl) [facility]2019-03-04 07:49:00 Test Item Value Reference Range Interpretation Comments eGFR (test code = eGFR) 81 [facility]2019-03-04 07:49:00 Test Item Value Reference Range Interpretation Comments AGAP (test code = AGAP) 10.9 10.0-20.0 [facility]2019-03-04 07:49:00 Test Item Value Reference Range Interpretation Comments Calcium Lvl (test code = Calcium Lvl) 8.5 8.5-10.5 [facility]2019-03-04 07:49:00 Test Item Value Reference Range Interpretation Comments Potassium Lvl (test code = Potassium 3.9 3.5-5.1 Lvl) [facility]2019-03-04 07:49:00 Test Item Value Reference Range Interpretation Comments Sodium Lvl (test code = Sodium Lvl) 142 135-145 [place] 330339-03-04 07:49:00 Test Item Value Reference Range Interpretation [...] CO2 (test code = CO2) 24 24-32 [place] 959139-03-04 07:49:00 Test Item Value Reference Range Interpretation Comments Segs (test code = Segs) 86.1 45.0-75.0 [facility] AustinIbpczuvHKIXLQHERH9261-22-46 07:49:00 Test Item Value Reference Range Interpretation Comments Basophils (test code = 0.4 See_Comment [Aut omated message] The Basophils) system which ge nerated this result tra nsmitted reference range : <=1.0. The reference r kunal was not used to int erpret this result as normal/abnormal . [facility] AustinMmtcuugQQPPFWIBDO3267-91-21 07:49:00 Test Item Value Reference Range Interpretation Comments Neutrophils # (test code = Neutrophils 12.7 1.5-8.1 #) [facility] AustinHcnppbqFYPIDWMSFO5571-62-17 07:49:00 Test Item Value Reference Range Interpretation Comments Lymphocytes (test code = Lymphocytes) 6.3 20.0-40.0 [facility] AustinFzcyklyBPTFFWRXZT9432-87-96 07:49:00 Test Item Value Reference Range Interpretation Comments Monocytes (test code = Monocytes) 7.2 2.0-12.0 [facility] AustinIjswpseCMULHWVEXW9389-75-90 07:49:00 Test Item Value Reference Range Interpretation Comments Lymphocytes # (test code = Lymphocytes 0.9 1.0-5.5 #) [facility] AustinJsfqmjvADUSKYHTLK9094-36-68 07:49:00 Test Item Value Reference Range Interpretation Comments Basophils # (test code 0.1 See_Comment [Aut omated message] The = Basophils #) system which generated this result tra nsmitted reference range : <=0.2. The reference r kunal was not used to int erpret this result as normal/abnormal . [facility] AustinPldgahrPWAUHCGCXS7464-16-61 07:49:00 Test Item Value Reference Range Interpretation Comments Monocytes # (test code 1.1 See_Comment [Aut omated message] The = Monocytes #) system which generated this result tra nsmitted reference range : <=0.8. The reference r kunal was not used to int erpret this result as normal/abnormal . [facility] AustinUdtlyedDGFRJQQZKR5688-84-13 07:49:00 Test Item Value Reference Range Interpretation Comments MPV (test code = MPV) 8.3 7.4-10.4 [facility] AustinUrjnaciLGBKSQHROP3697-16-25 07:49:00 Test Item Value Reference Range Interpretation Comments MCHC (test code = MCHC) 33.3 32.0-36.0 [facility] AustinDdkkzarDDDTBHFJIA9197-30-82 07:49:00 Test Item Value Reference Range Interpretation Comments RDW (test code = RDW) 13.5 11.5-14.5 [facility] AustinVamjptvYVECIUUNTS5977-28-54 07:49:00 Test Item Value Reference Range Interpretation Comments Platelet (test code = Platelet) 330 133-450 [facility] AustinOzchluvAKVYQTKXOB6829-19-20 07:49:00 Test Item Value Reference Range Interpretation Comments Hgb (test code = Hgb) 12.8 12.0-16.0 [facility] AustinOohumnaFOQNUJCAMS4863-94-40 07:49:00 Test Item Value Reference Range Interpretation Comments Hct (test code = Hct) 38.4 36.0-48.0 [facility] AustinXuvqkvhHXINHDJXWZ1595-24-14 07:49:00 Test Item Value Reference Range Interpretation Comments MCV (test code = MCV) 88.1 80.0-98.0 [facility] AustinOtscaqhCJFEDASWRG6166-47-56 07:49:00 Test Item Value Reference Range Interpretation Comments MCH (test code = MCH) 29.4 pg 27.0-31.0 [facility] AustinWbubzsyVSYMMSUJBB3635-37-79 07:49:00 Test Item Value Reference Range Interpretation Comments WBC (test code = WBC) 14.7 3.7-10.4 [facility] AustinIufzjouXOKHBBHXOM5492-33-51 07:49:00 Test Item Value Reference Range Interpretation Comments RBC (test code = RBC) 4.36 4.20-5.40 [facility]PAR[facility]ID [id number] 07:49:00 Test Item Value Reference Range Interpretation Comments Ca Ion WB (test code = Ca Ion WB) 1.15 1.05-1.25 [facility] FFSWHGI4176-65-69 07:49:00 Test Item Value Reference Range Interpretation Comments Ca Norm WB (test code = Ca Norm WB) 1.16 1.05-1.25 [facility]2019-03-04 07:49:00 Test Item Value Reference Range Interpretation Comments Phosphorus (test code = Phosphorus) 3.2 2.5-4.5 [facility]2019-03-04 07:49:00 Test Item Value Reference Range Interpretation Comments Magnesium Lvl (test code = Magnesium 1.9 1.8-2.4 Lvl) [facility]2019-03-04 07:49:00 Test Item Value Reference Range Interpretation Comments eGFR (test code = eGFR) 81 [facility]2019-03-04 07:49:00 Test Item Value Reference Range Interpretation Comments AGAP (test code = AGAP) 10.9 10.0-20.0 [facility]2019-03-04 07:49:00 Test Item [...] BUN (test code = BUN) 17 7-22 [facility] [id number] 07:49:00 Test Item Value Reference Range Interpretation Comments Glucose Lvl (test code = Glucose Lvl) 126 70-99 [facility] [id number] 07:49:00 Test Item Value Reference Range Interpretation Comments CO2 (test code = CO2) 24 24-32 [facility] DistrictPan[facility] [id number] 18:27:00 Test Item Value Reference Range Interpretation Comments Troponin-I (test code no gt See_Comment [Auto mated message] The = Troponin-I) system which g enerated this result transmit matthew reference range : <=0.40. The reference r kunal was not used to interpr et this result as carmen l/abnormal. [facility] [id number] 18:27:00 Test Item Value Reference Range Interpretation Comments Troponin-I (test code no gt See_Comment [Auto mated message] The = Troponin-I) system which g enerated this result transmit matthew reference range : <=0.40. The reference r kunal was not used to interpr et this result as carmen l/abnormal. [facility] [id number] 18:27:00 Test Item Value Reference Range Interpretation Comments Troponin-I (test code no gt See_Comment [Auto mated message] The = Troponin-I) system which g enerated this result transmit matthew reference range : <=0.40. The reference r kunal was not used to interpr et this result as carmen l/abnormal. [facility] [id number] 18:27:00 Test Item Value Reference Range Interpretation Comments Troponin-I (test code no gt See_Comment [Auto mated message] The = Troponin-I) system which g enerated this result transmit matthew reference range : <=0.40. The reference r kunal was not used to interpr et this result as carmen l/abnormal. [facility] AND [id number] 15:59:00 Test Item Value Reference Range Interpretation Comments UA Urobilinogen (test code = UA 0.2 0.1-1.0 Urobilinogen) [facility] AND [id number] 15:59:00 Test Item Value Reference Range Interpretation Comments UA Bacteria (test code = UA Occasional /HPF Bacteria) [facility] AND [id number] 15:59:00 Test Item Value Reference Range Interpretation Comments UA RBC (test code = 0-2 /HPF See_Comment [Automa matthew message] The UA RBC) system which ge nerated this result tra nsmitted reference range : <=2. The reference range was not used to interpr et this result as carmen l/abnormal. [facility] AND [id number] 15:59:00 Test Item Value Reference Range Interpretation Comments UA WBC (test code = UA WBC) 0-2 /HPF [facility] AND [id number] 15:59:00 Test Item Value Reference Range Interpretation Comments UA Sq Epi (test code = UA Sq Moderate /LPF Epi) [facility] AND [id number] 15:59:00 Test Item Value Reference Range Interpretation Comments UA Bili (test code = Negative *NA*(10/08/18 UA Bili) 9:59 AM) [facility] AND [id number] 15:59:00 Test Item Value Reference Range Interpretation Comments UA Glucose (test code Negative (10/08/18 9:59 = UA Glucose) AM) [facility] AND [id number] 15:59:00 Test Item Value Reference Range Interpretation Comments UA Ketones (test code Negative *NA*(10/08/18 = UA Ketones) 9:59 AM) [facility] AND [id number] 15:59:00 Test Item Value Reference Range Interpretation Comments UA Spec Grav (test code = UA Spec 1.010 1 Grav) [facility] AND [id number] 15:59:00 Test Item Value Reference Range Interpretation Comments UA pH (test code = UA pH) 6.0 1 5.0-8.0 [facility] AND [id number] 15:59:00 Test Item Value Reference Range Interpretation Comments UA Color (test code = Yellow *NA*(10/08/18 9:59 UA Color) AM) [facility] AND [id number] 15:59:00 Test Item Value Reference Range Interpretation Comments UA Turbidity (test code = Clear (10/08/18 9:59 UA Turbidity) AM) [facility] AND [id number] 15:59:00 Test Item Value Reference Range Interpretation Comments UA Nitrite (test code Negative (10/08/18 9:59 = UA Nitrite) AM) [facility] AND [id number] 15:59:00 Test Item Value Reference Range Interpretation Comments UA Protein (test code Negative (10/08/18 9:59 = UA Protein) AM) [facility] AND [id number] 15:59:00 Test Item Value Reference Range Interpretation Comments UA Blood (test code = Small *ABN*(10/08/18 UA Blood) 9:59 AM) [facility] AND [id number] 15:59:00 Test Item Value Reference Range Interpretation Comments UA Leuk Est (test Negative (10/08/18 9:59 code = UA Leuk Est) AM) [facility] AND [id number] 15:59:00 Test Item Value Reference Range Interpretation Comments UA Urobilinogen (test code = UA 0.2 0.1-1.0 Urobilinogen) [facility] AND [id number] 15:59:00 Test Item Value Reference Range Interpretation Comments UA Bacteria (test code = UA Occasional /HPF Bacteria) [facility] AND [id number] 15:59:00 Test Item Value Reference Range Interpretation Comments UA RBC (test code = 0-2 /HPF See_Comment [Automa matthew message] The UA RBC) system which ge nerated this result tra nsmitted reference range : <=2. The reference range was not used to interpr et this result as carmen l/abnormal. [facility] AND [id number] 15:59:00 Test Item Value Reference Range Interpretation Comments UA WBC (test code = UA WBC) 0-2 /HPF [facility] AND [id number] 15:59:00 Test Item Value Reference Range Interpretation Comments UA Sq Epi (test code = UA Sq Moderate /LPF Epi) [facility] AND [id number] 15:59:00 Test Item Value Reference Range Interpretation Comments UA Bili (test code = Negative *NA*(10/08/18 UA Bili) 9:59 AM) [facility] AND [id number] 15:59:00 Test Item Value Reference Range Interpretation Comments UA Glucose (test code Negative (10/08/18 9:59 = UA Glucose) AM) [facility] AND [id number] 15:59:00 Test Item Value Reference Range Interpretation Comments UA Ketones (test code Negative *NA*(10/08/18 = UA Ketones) 9:59 AM) [facility] AND [id number] 15:59:00 Test Item Value Reference Range Interpretation Comments UA Spec Grav (test code = UA Spec 1.010 1 Grav) [facility] AND [id number] 15:59:00 Test Item Value Reference Range Interpretation Comments UA pH (test code = UA pH) 6.0 1 5.0-8.0 [facility] AND [id number] 15:59:00 Test Item Value Reference Range Interpretation Comments UA Color (test code = Yellow *NA*(10/08/18 9:59 UA Color) AM) [facility] AND [id number] 15:59:00 Test Item Value Reference Range Interpretation Comments UA Turbidity (test code = Clear (10/08/18 9:59 UA Turbidity) AM) [facility] AND [id number] 15:59:00 Test Item Value Reference Range Interpretation Comments UA Nitrite (test code Negative (10/08/18 9:59 = UA Nitrite) AM) [facility] AND [id number] 15:59:00 Test Item Value Reference Range Interpretation Comments UA Protein (test code Negative (10/08/18 9:59 = UA Protein) AM) [facility] AND [id number] 15:59:00 Test Item Value Reference Range Interpretation Comments UA Blood (test code = Small *ABN*(10/08/18 UA Blood) 9:59 AM) [facility] AND [id number] 15:59:00 Test Item Value Reference Range Interpretation Comments UA Leuk Est (test Negative (10/08/18 9:59 code = UA Leuk Est) AM) [facility] AND [id number] 15:59:00 Test Item Value Reference Range Interpretation Comments UA Urobilinogen (test code = UA 0.2 0.1-1.0 Urobilinogen) [facility] AND [id number] 15:59:00 Test Item Value Reference Range Interpretation Comments UA Bacteria (test code = UA Occasional /HPF Bacteria) [facility] AND [id number] 15:59:00 Test Item Value Reference Range Interpretation Comments UA RBC (test code = 0-2 /HPF See_Comment [Automa matthew message] The UA RBC) system which ge nerated this result tra nsmitted reference range : <=2. The reference range was not used to interpr et this result as carmen l/abnormal. [facility] AND [id number] 15:59:00 Test Item Value Reference Range Interpretation Comments UA WBC (test code = UA WBC) 0-2 /HPF [facility] AND [id number] 15:59:00 Test Item Value Reference Range Interpretation Comments UA Sq Epi (test code = UA Sq Moderate /LPF Epi) [facility] AND [id number] 15:59:00 Test Item Value Reference Range Interpretation Comments UA Bili (test code = Negative *NA*(10/08/18 UA Bili) 9:59 AM) [facility] AND [id number] 15:59:00 Test Item Value Reference Range Interpretation Comments UA Glucose (test code Negative (10/08/18 9:59 = UA Glucose) AM) [facility] AND [id number] 15:59:00 Test Item Value Reference Range Interpretation Comments UA Ketones (test code Negative *NA*(10/08/18 = UA Ketones) 9:59 AM) [facility] AND [id number] 15:59:00 Test Item Value Reference Range Interpretation Comments UA Spec Grav (test code = UA Spec 1.010 1 Grav) [facility] AND [id number] 15:59:00 Test Item Value Reference Range Interpretation Comments UA pH (test code = UA pH) 6.0 1 5.0-8.0 [facility] AND [id number] 15:59:00 Test Item Value Reference Range Interpretation Comments UA Color (test code = Yellow *NA*(10/08/18 9:59 UA Color) AM) [facility] AND [id number] 15:59:00 Test Item Value Reference Range Interpretation Comments UA Turbidity (test code = Clear (3/3/19 9:59 UA Turbidity) AM) [facility] AND [id number] 15:59:00 Test Item Value Reference Range Interpretation Comments UA Nitrite (test code Negative (10/08/18 9:59 = UA Nitrite) AM) [facility] AND [id number] 15:59:00 Test Item Value Reference Range Interpretation Comments UA Protein (test code Negative (10/08/18 9:59 = UA Protein) AM) [facility] AND [id number] 15:59:00 Test Item Value Reference Range Interpretation Comments UA Blood (test code = Small *ABN*(10/08/18 UA Blood) 9:59 AM) [facility] AND [id number] 15:59:00 Test Item Value Reference Range Interpretation Comments UA Leuk Est (test Negative (10/08/18 9:59 code = UA Leuk Est) AM) [facility] AND [id number] 15:59:00 Test Item Value Reference Range Interpretation Comments UA Urobilinogen (test code = UA 0.2 0.1-1.0 Urobilinogen) [facility] AND [id number] 15:59:00 Test Item Value Reference Range Interpretation Comments UA Bacteria (test code = UA Occasional /HPF Bacteria) [facility] AND [id number] 15:59:00 Test Item Value Reference Range Interpretation Comments UA RBC (test code = 0-2 /HPF See_Comment [Automa matthew message] The UA RBC) system which ge nerated this result tra nsmitted reference range : <=2. The reference range was not used to interpr et this result as carmen l/abnormal. [facility] AND [id number] 15:59:00 Test Item Value Reference Range Interpretation Comments UA WBC (test code = UA WBC) 0-2 /HPF [facility] AND [id number] 15:59:00 Test Item Value Reference Range Interpretation Comments UA Sq Epi (test code = UA Sq Moderate /LPF Epi) [facility] AND [id number] 15:59:00 Test Item Value Reference Range Interpretation Comments UA Bili (test code = Negative *NA*(10/08/18 UA Bili) 9:59 AM) [facility] AND [id number] 15:59:00 Test Item Value Reference Range Interpretation Comments UA Glucose (test code Negative (10/08/18 9:59 = UA Glucose) AM) [facility] AND [id number] 15:59:00 Test Item Value Reference Range Interpretation Comments UA Ketones (test code Negative *NA*(10/08/18 = UA Ketones) 9:59 AM) [facility] AND [id number] 15:59:00 Test Item Value Reference Range Interpretation Comments UA Spec Grav (test code = UA Spec 1.010 1 Grav) [facility] AND [id number] 15:59:00 Test Item Value Reference Range Interpretation Comments UA pH (test code = UA pH) 6.0 1 5.0-8.0 [facility] AND [id number] 15:59:00 Test Item Value Reference Range Interpretation Comments UA Color (test code = Yellow *NA*(10/08/18 9:59 UA Color) AM) [facility] AND [id number] 15:59:00 Test Item Value Reference Range Interpretation Comments UA Turbidity (test code = Clear (10/08/18 9:59 UA Turbidity) AM) [facility] AND [id number] 15:59:00 Test Item Value Reference Range Interpretation Comments UA Nitrite (test code Negative (10/08/18 9:59 = UA Nitrite) AM) [facility] AND [id number] 15:59:00 Test Item Value Reference Range Interpretation Comments UA Protein (test code Negative (10/08/18 9:59 = UA Protein) AM) [facility] AND [id number] 15:59:00 Test Item Value Reference Range Interpretation Comments UA Blood (test code = Small *ABN*(10/08/18 UA Blood) 9:59 AM) [facility] AND [id number] 15:59:00 Test Item Value Reference Range Interpretation Comments UA Leuk Est (test Negative (10/08/18 9:59 code = UA Leuk Est) AM) [facility]qrrcbuPYEGFUZXNF0904-08-18 15:21:00 Test Item Value Reference Range Interpretation Comments PTT (test code = PTT) 36.5 s 22.9-35.8 [facility] [id number] 15:21:00 Test Item Value Reference Range Interpretation Comments PT (test code = PT) 13.3 s 12.0-14.7 [facility] [id number] 15:21:00 Test Item Value Reference Range Interpretation Comments INR (test code = INR) 1.03 1 0.85-1.17 [facility] [id number] 15:21:00 Test Item Value Reference Range Interpretation Comments Split Point Rapid (test code = Split 0.6 min Point Rapid) [facility] [id number] 15:21:00 Test Item Value Reference Range Interpretation Comments R-time Rapid (test code = R-time 0.7 min 0.4-0.7 Rapid) [facility] [id number] 15:21:00 Test Item Value Reference Range Interpretation Comments ACT (TEG) Rapid (test code = ACT (TEG) 113 s 86-118 Rapid) [facility] [id number] 15:21:00 Test Item Value Reference Range Interpretation Comments G-value Rapid (test code = G-value 15.0 5.0-11.6 Rapid) [facility] [id number] 15:21:00 Test Item Value Reference Range Interpretation Comments K-time Rapid (test code = K-time 0.8 min 0.6-2.3 Rapid) [facility] [id number] 15:21:00 Test Item Value Reference Range Interpretation Comments Estimated % Lysis Rapid 0.3 See_Comment [Au tomated message] The (test code = Estimated syste m which generated % Lysis Rapid) this result t ransmitted reference range : <=7.5. The reference r kunal was not used to int erpret this result as normal/abnormal . [facility] [id number] 15:21:00 Test Item Value Reference Range Interpretation Comments Angle Rapid (test code = Angle 79 degrees 64-80 Rapid) [facility]JkfporjMSNGPLIKWU4835-90-62 15:21:00 Test Item Value Reference Range Interpretation Comments Max Amplitude Rapid (test code = Max 75 mm 52-71 Amplitude Rapid) [facility] AustinUlwrchxSTOPVQTUML0683-21-19 15:21:00 Test Item Value Reference Range Interpretation Comments PTT (test code = PTT) 36.5 s 22.9-35.8 [facility] AustinSnjsotzRHZFWJAHFD5023-81-94 15:21:00 Test Item Value Reference Range Interpretation Comments PT (test code = PT) 13.3 s 12.0-14.7 [facility] AustinUbeftsfSQNZYWTHLW9738-13-67 15:21:00 Test Item Value Reference Range Interpretation Comments INR (test code = INR) 1.03 1 0.85-1.17 [facility] AustinPyblqwaTLSQJAHKDD8479-86-44 15:21:00 Test Item Value Reference Range Interpretation Comments Split Point Rapid (test code = Split 0.6 min Point Rapid) [facility] AustinRztkqvvLMRPIDUGEU7510-24-32 15:21:00 Test Item Value Reference Range Interpretation Comments R-time Rapid (test code = R-time 0.7 min 0.4-0.7 Rapid) [facility] AustinLlgeeeoYODULFXFZV3762-21-19 15:21:00 Test Item Value Reference Range Interpretation Comments ACT (TEG) Rapid (test code = ACT (TEG) 113 s 86-118 Rapid) [facility] AustinRvyxvpoMGMJRVZPSR2394-75-84 15:21:00 Test Item Value Reference Range Interpretation Comments G-value Rapid (test code = G-value 15.0 5.0-11.6 Rapid) [facility] AustinKotosygCPUOXLAZKV8321-65-99 15:21:00 Test Item Value Reference Range Interpretation Comments K-time Rapid (test code = K-time 0.8 min 0.6-2.3 Rapid) [facility] AustinMofncioFRSJDRGHPM0169-60-69 15:21:00 Test Item Value Reference Range Interpretation Comments Estimated % Lysis Rapid 0.3 See_Comment [Au tomated message] The (test code = Estimated syste m which generated % Lysis Rapid) this result t ransmitted reference range : <=7.5. The reference r kunal was not used to int erpret this result as normal/abnormal . [facility] AustinZihticpIPRAVXVDRC9319-79-69 15:21:00 Test Item Value Reference Range Interpretation Comments Angle Rapid (test code = Angle 79 degrees 64-80 Rapid) [facility] AustinCgjnxbqEOQRSJATHM3244-41-51 15:21:00 Test Item Value Reference Range Interpretation Comments Max Amplitude Rapid (test code = Max 75 mm 52-71 Amplitude Rapid) [facility] AustinVsddoxaZULQTDUCAW2129-37-36 15:21:00 Test Item Value Reference Range Interpretation Comments PTT (test code = PTT) 36.5 s 22.9-35.8 [facility] AustinSmsiblvBHRCKLJAMP7838-82-22 15:21:00 Test Item Value Reference Range Interpretation Comments PT (test code = PT) 13.3 s 12.0-14.7 [facility] AustinXfiincwXBZLAHEFJB8490-04-73 15:21:00 Test Item Value Reference Range Interpretation Comments INR (test code = INR) 1.03 1 0.85-1.17 [facility] AustinRcnkocjUJFCYOXHIG6921-07-56 15:21:00 Test Item Value Reference Range Interpretation Comments Split Point Rapid (test code = Split 0.6 min Point Rapid) [facility] AustinLlekifeTKHIZPFUDE1509-55-23 15:21:00 Test Item Value Reference Range Interpretation Comments R-time Rapid (test code = R-time 0.7 min 0.4-0.7 Rapid) [facility] AustinNgluewiXEYTWUNJRS4560-23-71 15:21:00 Test Item Value Reference Range Interpretation Comments ACT (TEG) Rapid (test code = ACT (TEG) 113 s 86-118 Rapid) [facility] AustinLimhrttKZDCSXBTMV2526-36-68 15:21:00 Test Item Value Reference Range Interpretation Comments G-value Rapid (test code = G-value 15.0 5.0-11.6 Rapid) [facility] AustinTwfvjixQFKOSTQHKK0023-93-40 15:21:00 Test Item Value Reference Range Interpretation Comments K-time Rapid (test code = K-time 0.8 min 0.6-2.3 Rapid) [facility] AustinRrxrkvsNNWULFYVPR3767-01-18 15:21:00 Test Item Value Reference Range Interpretation Comments Estimated % Lysis Rapid 0.3 See_Comment [Au tomated message] The (test code = Estimated syste m which generated % Lysis Rapid) this result t ransmitted reference range : <=7.5. The reference r kunal was not used to int erpret this result as normal/abnormal . [facility] AustinZtfqkxsGKDKGVDZXM7033-89-15 15:21:00 Test Item Value Reference Range Interpretation Comments Angle Rapid (test code = Angle 79 degrees 64-80 Rapid) [facility] AustinSfnghgcOEHANYJBJQ5156-21-81 15:21:00 Test Item Value Reference Range Interpretation Comments Max Amplitude Rapid (test code = Max 75 mm 52-71 Amplitude Rapid) [facility] AustinRirtyocZJRTEGTISP0343-34-17 15:21:00 Test Item Value Reference Range Interpretation Comments PTT (test code = PTT) 36.5 s 22.9-35.8 [facility] AustinEjpkmxpHSJMCJZWBU6760-53-26 15:21:00 Test Item Value Reference Range Interpretation Comments PT (test code = PT) 13.3 s 12.0-14.7 [facility] AustinJcbzmgsBKIWRAMCRR0758-84-93 15:21:00 Test Item Value Reference Range Interpretation Comments INR (test code = INR) 1.03 1 0.85-1.17 [facility] AustinMvagxaiKFRZOTEVUH2353-87-98 15:21:00 Test Item Value Reference Range Interpretation Comments Split Point Rapid (test code = Split 0.6 min Point Rapid) [facility] AustinIamdsqvUNDZXUWLLV4680-35-91 15:21:00 Test Item Value Reference Range Interpretation Comments R-time Rapid (test code = R-time 0.7 min 0.4-0.7 Rapid) [facility] AustinWhkkyniSBZXBLCSHZ0091-65-10 15:21:00 Test Item Value Reference Range Interpretation Comments ACT (TEG) Rapid (test code = ACT (TEG) 113 s 86-118 Rapid) [facility] AustinNplkahsPZHMDEDMDV0399-32-80 15:21:00 Test Item Value Reference Range Interpretation Comments G-value Rapid (test code = G-value 15.0 5.0-11.6 Rapid) [facility] AustinFheaspeTYKLNZBXSD7582-98-04 15:21:00 Test Item Value Reference Range Interpretation Comments K-time Rapid (test code = K-time 0.8 min 0.6-2.3 Rapid) [facility] AustinVarufchAFEQTOVTRK9918-92-77 15:21:00 Test Item Value Reference Range Interpretation Comments Estimated % Lysis Rapid 0.3 See_Comment [Au tomated message] The (test code = Estimated syste m which generated % Lysis Rapid) this result t ransmitted reference range : <=7.5. The reference r kunal was not used to int erpret this result as normal/abnormal . [facility] AustinUfnvpuvGBBGJOLHFS3786-60-01 15:21:00 Test Item Value Reference Range Interpretation Comments Angle Rapid (test code = Angle 79 degrees 64-80 Rapid) [facility] AustinMdazpsgLGWOKLQGNE7812-85-11 15:21:00 Test Item Value Reference Range Interpretation Comments Max Amplitude Rapid (test code = Max 75 mm 52-71 Amplitude Rapid) [facility] [id number] 15:20:00 Test Item Value Reference Range Interpretation Comments ABO/Rh (test code = ABO/Rh) O POS [employer] [id number] 15:20:00 Test Item Value Reference Range Interpretation Comments Antibody Scrn (test Negative (10/08/18 9:20 code = Antibody Scrn) AM) [employer] [id number] 15:20:00 Test Item Value Reference Range Interpretation Comments ABO/Rh (test code = ABO/Rh) O POS [employer] [id number] 15:20:00 Test Item Value Reference Range Interpretation Comments Antibody Scrn (test Negative (10/08/18 9:20 code = Antibody Scrn) AM) [employer] [id number] 15:20:00 Test Item Value Reference Range Interpretation Comments ABO/Rh (test code = ABO/Rh) O POS [employer] [id number] 15:20:00 Test Item Value Reference Range Interpretation Comments Antibody Scrn (test Negative (10/08/18 9:20 code = Antibody Scrn) AM) [employer] [id number] 15:20:00 Test Item Value Reference Range Interpretation Comments ABO/Rh (test code = ABO/Rh) O POS [employer] [id number] 15:20:00 Test Item Value Reference Range Interpretation Comments Antibody Scrn (test Negative (10/08/18 9:20 code = Antibody Scrn) AM) [employer] [id number] 15:18:00 Test Item Value Reference Range Interpretation Comments Troponin-I (test code no gt See_Comment [Auto mated message] The = Troponin-I) system which g enerated this result transmit matthew reference range : <=0.40. The reference r kunal was not used to interpr et this result as carmen l/abnormal. [employer] [id number] 15:18:00 Test Item Value Reference Range Interpretation Comments Phosphorus (test code = Phosphorus) 3.9 2.5-4.5 [employer] [id number] 15:18:00 Test Item Value Reference Range Interpretation Comments Magnesium Lvl (test code = Magnesium 1.9 1.8-2.4 Lvl) [employer] [id number] 15:18:00 Test Item Value Reference Range Interpretation Comments Lactic Acid Lvl (test code = Lactic 0.8 0.5-2.2 Acid Lvl) [facility]107[facility]54-46 15:18:00 Test Item Value Reference Range Interpretation Comments Basophils # (test code 0.1 See_Comment [Aut omated message] The = Basophils #) system which generated this result tra nsmitted reference range : <=0.2. The reference r kunal was not used to int erpret this result as normal/abnormal . [facility]JdedyfyQENNLMVQCG4346-91-79 15:18:00 Test Item Value Reference Range Interpretation Comments Eosinophils # (test code 0.1 See_Comment [A utomated message] The = Eosinophils #) system whic h generated this result tra nsmitted reference range : <=0.5. The reference r kunal was not used to int erpret this result as normal/abnormal . [facility] AustinSfxdnckGWJGJCOOJE8089-30-48 15:18:00 Test Item Value Reference Range Interpretation Comments Eosinophils (test code = 1.8 See_Comment [A utomated message] The Eosinophils) system which ge nerated this result tra nsmitted reference range : <=4.0. The reference r kunal was not used to int erpret this result as normal/abnormal . [facility] [id number] 15:18:00 Test Item Value Reference Range Interpretation Comments Troponin-I (test code no gt See_Comment [Auto mated message] The = Troponin-I) system which g enerated this result transmit matthew reference range : <=0.40. The reference r kunal was not used to interpr et this result as carmen l/abnormal. [facility] [id number] 15:18:00 Test Item Value Reference Range Interpretation Comments Phosphorus (test code = Phosphorus) 3.9 2.5-4.5 [facility] [id number] 15:18:00 Test Item Value Reference Range Interpretation Comments Magnesium Lvl (test code = Magnesium 1.9 1.8-2.4 Lvl) [facility] [id number] 15:18:00 Test Item Value Reference Range Interpretation Comments Lactic Acid Lvl (test code = Lactic 0.8 0.5-2.2 Acid Lvl) [facility]OlhovnkASDLQLYGHS3892-23-15 15:18:00 Test Item Value Reference Range Interpretation Comments Basophils # (test code 0.1 See_Comment [Aut omated message] The = Basophils #) system which generated this result tra nsmitted reference range : <=0.2. The reference r kunal was not used to int erpret this result as normal/abnormal . [facility] AustinWdgtoadWXYLJZLUTN5351-51-28 15:18:00 Test Item Value Reference Range Interpretation Comments Eosinophils # (test code 0.1 See_Comment [A utomated message] The = Eosinophils #) system whic h generated this result tra nsmitted reference range : <=0.5. The reference r kunal was not used to int erpret this result as normal/abnormal . [facility] AustinPhozrosTEOBJMWJUA6110-78-54 15:18:00 Test Item Value Reference Range Interpretation Comments Eosinophils (test code = 1.8 See_Comment [A utomated message] The Eosinophils) system which ge nerated this result tra nsmitted reference range : <=4.0. The reference r kunal was not used to int erpret this result as normal/abnormal . [facility] [id number] 15:18:00 Test Item Value Reference Range Interpretation Comments Troponin-I (test code no gt See_Comment [Auto mated message] The = Troponin-I) system which g enerated this result transmit matthew reference range : <=0.40. The reference r kunal was not used to interpr et this result as carmen l/abnormal. [facility] [id number] 15:18:00 Test Item Value Reference Range Interpretation Comments Phosphorus (test code = Phosphorus) 3.9 2.5-4.5 [facility] [id number] 15:18:00 Test Item Value Reference Range Interpretation Comments Magnesium Lvl (test code = Magnesium 1.9 1.8-2.4 Lvl) [facility] [id number] 15:18:00 Test Item Value Reference Range Interpretation Comments Lactic Acid Lvl (test code = Lactic 0.8 0.5-2.2 Acid Lvl) [facility] H[id number] 15:18:00 Test Item Value Reference Range Interpretation Comments Basophils # (test code 0.1 See_Comment [Aut omated message] The = Basophils #) system which generated this result tra nsmitted reference range : <=0.2. The reference r kunal was not used to int erpret this result as normal/abnormal . [facility] H[id number] 15:18:00 Test Item Value Reference Range Interpretation Comments Eosinophils # (test code 0.1 See_Comment [A utomated message] The = Eosinophils #) system whic h generated this result tra nsmitted reference range : <=0.5. The reference r kunal was not used to int erpret this result as normal/abnormal . [facility] AustinUlvhvpnVPQTVYTNAM9210-79-96 15:18:00 Test Item Value Reference Range Interpretation Comments Eosinophils (test code = 1.8 See_Comment [A utomated message] The Eosinophils) system which ge nerated this result tra nsmitted reference range : <=4.0. The reference r kunal was not used to int erpret this result as normal/abnormal . [facility] [id number] 15:18:00 Test Item Value Reference Range Interpretation Comments Troponin-I (test code no gt See_Comment [Auto mated message] The = Troponin-I) system which g enerated this result transmit matthew reference range : <=0.40. The reference r kunal was not used to interpr et this result as carmen l/abnormal. [facility] [id number] 15:18:00 Test Item Value Reference Range Interpretation Comments Phosphorus (test code = Phosphorus) 3.9 2.5-4.5 [facility] [id number] 15:18:00 Test Item Value Reference Range Interpretation Comments Magnesium Lvl (test code = Magnesium 1.9 1.8-2.4 Lvl) [facility] [id number] 15:18:00 Test Item Value Reference Range Interpretation Comments Lactic Acid Lvl (test code = Lactic 0.8 0.5-2.2 Acid Lvl) [facility] AustinDfvjobbEDKWFYKUAS2535-72-14 15:18:00 Test Item Value Reference Range Interpretation Comments Basophils # (test code 0.1 See_Comment [Aut omated message] The = Basophils #) system which generated this result tra nsmitted reference range : <=0.2. The reference r kunal was not used to int erpret this result as normal/abnormal . [facility] AustinZdvsnadQZEUVEUTOJ6919-09-96 15:18:00 Test Item Value Reference Range Interpretation Comments Eosinophils # (test code 0.1 See_Comment [A utomated message] The = Eosinophils #) system whic h generated this result tra nsmitted reference range : <=0.5. The reference r kunal was not used to int erpret this result as normal/abnormal . [facility] AustinOxwncrwRQLCIHGDTM5443-73-75 15:18:00 Test Item Value Reference Range Interpretation Comments Eosinophils (test code = 1.8 See_Comment [A utomated message] The Eosinophils) system which ge nerated this result tra nsmitted reference range : <=4.0. The reference r kunal was not used to int erpret this result as normal/abnormal . [facility]
--- NOTE | 2022-08-24 22:25 | RAD REPORT ---
EXAM DESCRIPTION: CTStone Protocol - 08/24/2022 10:08 pm CLINICAL HISTORY: suprapubic and back pain COMPARISON: Stone Protocol dated 10/27/2021; Abdomen Pelvis W Contrast dated 06/13/2021; Stone Kay col dated 04/19/2021; Stone Protocol dated 07/15/2018 TECHNIQUE: CT of the abdomen and pelvis was performed without IV contrast. All CT scans are performed using dose optimization technique as appropriate and may include automated exposure control or mA/KV adjustment according to patient size. FINDINGS: Lower chest: No acute abnormality. Liver: Multiple low-density liver lesions are identified. These are unchanged from prior and consiste nt with benign etiologies. Biliary: No biliary ductal dilatation. Stomach: No significant focal abnormality. Duodenum: No significant focal abnormality. Pancreas: No significant abnormality. Spleen: No significant abnormality. Adrenal: No suspicious lesions. Kidney/ureter: No hydronephrosis. 4 mm stone in the left lower pole kidney. 2 mm stone in the upper p ole the right kidney. 5 mm stone in the left renal pelvis. Similar prominence of the left renal pelvi s. Retroperitoneum: No retroperitoneal adenopathy. Vascular: No aneurysm. Bowel: Normal appendix. No bowel obstruction .. Peritoneum: No ascites or free air. Bladder: Grossly unremarkable. Reproductive: No adnexal masses. Bones: No acute fracture. Other: n/a IMPRESSION: 5 mm stone in the left renal pelvis without hydronephrosis. No ureteral calculi. The le ft renal pelvis stone could be intermittently causing obstruction and pain. No other specific finding s to explain the patient's reported symptoms.
[2022-08-24 22:37] LABS: Absolute Lymphocytes (CBC) 2.2 K/uL (0.7-4.9); Hematocrit 38.4 % (36.0-45.0); Lymphocytes % 28.6 % (15.3-44.8); MCV 88.5 fL (80-100); MPV 8.4 fL (7.6-11.3); RBC Red Blood Cell Count 4.35 M/uL (3.86-4.86)
[2022-08-24 22:44] LABS: Albumin 3.3 g/dL (3.4-5.0); Bilirubin Total 0.3 mg/dL (0.2-1.0); Potassium 3.4 mmol/L (3.5-5.1); Protein, Total 6.9 g/dL (6.4-8.2)
[2022-08-24 23:27] LABS: Urine Blood 2+ (Negative); Urine Glucose Negative (Negative); Urine Protein 2+ (Negative); Urine Specific Gravity >=1.030 (1.005-1.030); Urine pH 5.5 (5.0-7.0)
[2022-08-24 23:42] LABS: Calcium Oxalate Crystals- Ur Few /HPF (None Seen); Urine Bacteria <20 /HPF (<20); Urine Mucus 1+ /HPF (None Seen); Urine RBC >50 /HPF (None Seen)
--- NOTE | 2022-08-25 05:07 | EDPHYS ---
Physician Documentation [facility] Name: Joanna Lim Age: 52 yrs Sex: Female : 1970 Arrival Date: 08/24/2022 Time: 21:26 Bed 15 Private MD: ED Physician aSrkis Munoz HPI: 08/24 22:18 This 52 yrs old Black Female presents to ER via Ambulatory with complaints of Possible rn Kidney Stone, Abdominal Pain, Cyst. 22:18 The patient presents with abdominal pain in the lower abdomen. Onset: The rn symptoms/episode began/occurred 2 week(s) ago. The symptoms radiate to back. Associated signs and symptoms: Pertinent negatives: nausea and vomiting, blood in stools, chest pain, constipation, diarrhea, dysuria, fever, hematuria, shortness of breath, vaginal discharge, vomiting, vomiting blood. The symptoms are described as achy, crampy. Modifying factors: The symptoms are alleviated by nothing, the symptoms are aggravated by nothing. Severity of pain: At its worst the pain was moderate in the emergency department the pain has improved. The patient has experienced similar episodes in the past. The patient has been recently seen by a physician:. Pt reports 1-2 weeks of lower abd pain and back pain, had CT scan last week by pcp and told had kidney stones, told to come to ER if pain persisted. Patient denies acute worsening of pain. No urinary symptoms. No fever. NO trauma. No fever. . [employer]: 21:43 LMP N/A - Hysterectomy ll3 Historical: - Allergies: 21:43 PENICILLINS; ll3 21:43 Tramadol HCl; ll3 - PMHx: 21:43 Back pain; ll3 - PSHx: 21:43 Lithotripsy; renal stent; Total abdominal hysterectomy; ll3 - Immunization history:: Client reports receiving the 2nd dose of the Covid vaccine. - Social history:: Smoking status: Patient denies any tobacco usage or history of. - Family history:: not pertinent. - Hospitalizations: : No recent hospitalization is reported. ROS: 22:18 Constitutional: Negative for fever, chills, and weight loss, Eyes: Negative for injury, rn pain, redness, and discharge, Neck: Negative for injury, pain, and swelling, Cardiovascular: Negative for chest pain, palpitations, and edema, Respiratory: Negative for shortness of breath, cough, wheezing, and pleuritic chest pain, Abdomen/GI: + lower abd pain Back: + lower back pain : Negative for injury, bleeding, discharge, and swelling, MS/Extremity: Negative for injury and deformity, Skin: Negative for injury, rash, and discoloration, Neuro: Negative for weakness, numbness, tingling, and seizure. Exam: 22:18 Constitutional: This is a well developed, well nourished patient who is awake, alert, rn and in no acute distress. Head/Face: Normocephalic, atraumatic. Eyes: Pupils equal round and reactive to light, extra-ocular motions intact. Lids and lashes normal. Conjunctiva and sclera are non-icteric and not injected. Cornea within normal limits. Periorbital areas with no swelling, redness, or edema. Neck: Supple, full range of motion without nuchal rigidity, or vertebral point tenderness. No Meningismus. Cardiovascular: Regular rate and rhythm. No pulse deficits. Respiratory: No increased work of breathing, no retractions or nasal flaring. Abdomen/GI: soft, mild suprapubic tenderness, no masses, no rebound or peritoneal signs. Skin: Warm, dry MS/ Extremity: Pulses equal, no cyanosis. Neurovascular intact. Full, normal range of motion. Equal circumference. Neuro: Awake and alert, GCS 15, strength and sensation intact and equal in all 4 ext. Vital Signs: 21:41 BP 137 / 83; Pulse 85; Resp 17; Temp 98.2(O); Pulse Ox 100% on R/A; Weight 95.25 kg ll3 (R); Height 5 ft. 9 in. (175.26 cm) (R); Pain 7/10; 22:45 BP 143 / 96; Pulse 75; Resp 16 S; Pulse Ox 100% on R/A; as6 23:29 BP 141 / 101; Pulse 78; Resp 17 S; Pulse Ox 100% on R/A; as6 08/25 00:02 BP 149 / 105; Pulse 83; Resp 18 S; Pulse Ox 100% on R/A; as6 08/24 21:41 Body Mass Index 31.01 (95.25 kg, 175.26 cm) ll3 MDM: 08/24 21:39 Patient medically screened. rn 22:59 Differential diagnosis: diverticulitis, non-specific abd pain, Ureterolithiasis, rn urinary tract infection. Data reviewed: vital signs, nurses notes, lab test result(s), radiologic studies, CT scan, and as a result, I will discharge patient. Care significantly affected by the following chronic conditions: kidney stones. Counseling: I had a detailed discussion with the patient and/or guardian regarding: the historical points, exam findings, and any diagnostic results supporting the discharge/admit diagnosis, lab results, radiology results, the need for outpatient follow up, to return to the emergency department if symptoms worsen or persist or if there are any questions or concerns that arise at home. Special discussion: I discussed with the patient/guardian in detail that at this point there is no indication for admission to the hospital. It is understood, however, that if the symptoms persist or worsen the patient needs to return immediately for re-evaluation. Based on the history and exam findings, there is no indication for further emergent testing or inpatient evaluation. I discussed with the patient/guardian the need to see the urologist for further evaluation of the symptoms. ED course: Pt with kidney stones, nothing in ureter, no hydronephrosis, normal cbc and BMP. Stable vitals. Recent ct showed similar kidney stones. No gross change in pain. Will dc home with urological f/u and return precautions.. 08/24 21:50 Order name: CBC with Diff; Complete Time: 22:57 rn 08/24 21:50 Order name: CMP; Complete Time: 22:45 rn 08/24 21:50 Order name: Lipase; Complete Time: 22:45 rn 08/24 21:50 Order name: Urine Microscopic Only rn 08/24 21:50 Order name: CT Stone Protocol; Complete Time: 22:45 rn 08/24 23:27 Order name: Urine Dipstick-Ancillary; Complete Time: 23:58 EDMS 08/24 21:50 Order name: IV Saline Lock; Complete Time: 22:04 rn 08/24 21:50 Order name: Labs collected and sent; Complete Time: 22:04 rn 08/24 21:50 Order name: Urine Dipstick-Ancillary (obtain specimen); Complete Time: 23:26 rn Administered Medications: No medications were administered Disposition Summary: 08/24/22 23:59 Discharge Ordered Location: Home rn Problem: an ongoing problem rn Symptoms: have improved rn Condition: Stable rn Diagnosis - Calculus of kidney rn Followup: rn - With: - When: As needed - Reason: Recheck today's complaints, Re-evaluation by your physician Discharge Instructions: - Discharge Summary Sheet rn - Kidney Stones rn Forms: - Medication Reconciliation Form rn - Thank You Letter rn - Antibiotic recovery room rn - Prescription Opioid Use rn Signatures: Dispatcher [employer] Sarkis Duron MD MD rn Loubet, Lynsea, RN RN ll3
--- NOTE | 2022-08-25 05:07 | ER ---
Nurse's Notes [facility] Name: Joanna Lim Age: 52 yrs Sex: Female : 1970 Arrival Date: 08/24/2022 Time: 21:26 Bed 15 Private MD: Diagnosis: Calculus of kidney Presentation: 08/24 21:41 Chief complaint: Patient states: C/O right and left lower quadrant pain, back and ll3 bilateral leg pain, and H/A. Coronavirus screen: Vaccine status: Patient reports receiving the 2nd dose of the covid vaccine. At this time, the client does not indicate any symptoms associated with coronavirus-19. Ebola Screen: No symptoms or risks identified at this time. Initial Sepsis Screen: Does the patient meet any 2 criteria? No. Patient's initial sepsis screen is negative. Does the patient have a suspected source of infection? No. Patient's initial sepsis screen is negative. Risk Assessment: Do you want to hurt yourself or someone else? Patient reports no desire to harm self or others. Onset of symptoms. 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 - Social history:: Smoking status: Patient denies any tobacco usage or history of. - Family history:: not pertinent. - Hospitalizations: : No recent hospitalization is reported. Screenin:27 [facility] ED Fall Risk Assessment (Adult) Score/Fall Risk Level 0 - 2 = Low Risk. Abuse as6 screen: Denies threats or abuse. Denies injuries from another. Nutritional screening: No deficits noted. Tuberculosis screening: No symptoms or risk factors identified. Assessment: 21:50 General: Appears in no apparent distress. Behavior is calm, cooperative. Pain: as6 Complains of pain in abdomen. Neuro: Level of Consciousness is awake, alert, obeys commands, Oriented to person, place, time, situation. Cardiovascular: Capillary refill < 3 seconds Patient's skin is warm and dry. Respiratory: Respiratory effort is even, unlabored, Respiratory pattern is regular, symmetrical. GI: Reports lower abdominal pain. Vital Signs: 21:41 BP 137 / 83; Pulse 85; Resp 17; Temp 98.2(O); Pulse Ox 100% on R/A; Weight 95.25 kg ll3 (R); Height 5 ft. 9 in. (175.26 cm) (R); Pain 7/10; 22:45 BP 143 / 96; Pulse 75; Resp 16 S; Pulse Ox 100% on R/A; as6 23:29 BP 141 / 101; Pulse 78; Resp 17 S; Pulse Ox 100% on R/A; as6 08/25 00:02 BP 149 / 105; Pulse 83; Resp 18 S; Pulse Ox 100% on R/A; as6 08/24 21:41 Body Mass Index 31.01 (95.25 kg, 175.26 cm) ll3 ED Course: 08/24 21:26 Patient arrived in ED. ja2 21:39 Sarkis Munoz MD is Attending Physician. rn 21:43 Triage completed. ll3 21:43 Arm band placed on Patient placed in an exam room, on a stretcher, on pulse oximetry. ll3 21:51 Ravi Bautista RN is Primary Nurse. as6 22:00 Inserted saline lock: 20 gauge in right antecubital area, using aseptic technique. as6 Blood collected. 22:10 CT Stone Protocol In Process Unspecified. EDMS 23:26 Urine Microscopic Only Sent. as6 23:27 Bed in low position. Call light in reach. Side rails up X 1. as6 23:59 Vidal Alicea MD is Referral Physician. rn 08/25 00:04 No provider procedures requiring assistance completed. IV discontinued, intact, as6 bleeding controlled, No redness/swelling at site. Pressure dressing applied. Administered Medications: No medications were administered Medication: 08/24 23:27 VIS not applicable for this client. as6 Outcome: 23:59 Discharge ordered by . rn 08/25 00:05 Discharged to home ambulatory. as6 Condition: stable Discharge instructions given to patient, Instructed on discharge instructions, follow up and referral plans. Demonstrated understanding of instructions, follow-up care. 00:05 Patient left the ED. as6 Signatures: Dispatcher [employer] EDMS Munoz, Sarkis, MD MD rn Wicho, Ravi Del Castillo, RN RN as6 Anna Trammell RN RN ll3
[2022-08-25 05:56] VITALS: TEMP 98.2; O2SAT 100
[2022-08-25 06:00] VITALS: BP 149/105
== END 2022-08-25 00:05 | disposition home or self-care (01) ==
LOC: ER 21:22
DX: N20.0 Calculus of kidney (principal); Z88.0 Allergy status to penicillin; Z88.5 Allergy status to narcotic agent
CPT/HCPCS: 36415; 74176; 76377; 80053; 81003; 81015; 83690; 85025; 87086; 87088

== ENCOUNTER 2022-09-14 13:22 | Emergency (ER) | payer OTHER ==
--- OUTSIDE RECORDS SUMMARY | 2022-09-14 13:46 | XMS REPORT | Continuity of Care Document ---
:1970 Author Organization [facility] t Address [address] [place] [address] Support Name Relationship Address Phone Yolanda Ruiz Other [address] [place] [address] L Dane Ruiz Relative [address] [place] [address] N Jonah Lim [address] [place] [address] JONAH LIM N [address] [place] [address] DANE RUIZ L Relative [address] [place] [address] Carina Joanna Unavailable [address] [phone] [place] [address] Lim, Joanna Unavailable [address] [phone] [place] [address] Care Team Providers Name Role Phone Parminder Velez Primary Care Physician [phone] Parminder Velez Attending Clinician Unavailable LIEN AYALA Attending Clinician Unavailable Lien Ramachandran Attending Clinician Pob, [facility] Main Attending Clinician Unavailable Doctor Unassigned, [place] Attending Clinician Unavailable RADIOLOGY Attending Clinician Unavailable ZOIE VASQUEZ Attending Clinician Unavailable Karmen Velez MD Attending Clinician Betty Be MA Attending Clinician Unavailable CHRIS CRANE Attending Clinician Unavailable Chris Crane MD Attending Clinician UNKNOWN, ATTENDING Attending Clinician Unavailable PATSY FROST Attending Clinician Unavailable SEBASTIAN KHAN Attending Clinician Unavailable Sebastian Franklin Attending Clinician Nurse, [facility] Surgery Gu Attending Clinician Unavailable Adiel Mitchell MD Attending Clinician ADIEL MITCHELL Attending Clinician Unavailable Only, Adc Test Attending Clinician Unavailable Jeanna Gar Attending Clinician Jaden LOPEZ, Kyle Attending Clinician KYLE STANLEY Attending Clinician Unavailable Jason Cook RN Attending Clinician Unavailable CECILE KEITA Attending Clinician Unavailable CECILE KEITA Attending Clinician Unavailable 2, [facility] Attending Clinician Unavailable NORA PEACOCK Attending Clinician Unavailable NORA PEACOCK Attending Clinician Unavailable NATALYA FUNES Attending Clinician Unavailable Natalya Funes DO Attending Clinician KLEBY VELIZ Attending Clinician Unavailable Nilda Serrano MA Attending Clinician Unavailable Cecile Keita MD Attending Clinician Ifeoma Harrell PA-C Attending Clinician [employer] Attending Clinician Unavailable Elizabeth Wolf Attending Clinician [phone] ELIZABETH MOREAU Attending Clinician Unavailable ERICK [...] Number Effective Date Expiration Date S marcella [facility] [id number] 2016 HEALTH PLAN CHIP 00:00:00 [facility] [id number] 2022 00:00:00 [facility] [id number] 2021 COMM 00:00:00 [place] [address] [id number] 2020 Common HEALTH PLAN 00:00:00 [place] [address] [id number] 2020 Common HEALTH PLAN 00:00:00 [place] [address] [id number] 2020 Common HEALTH PLAN 00:00:00 [facility] Problems Condition Condition Condition Status Onset Resolution Last Treating Co mments Source Name Details Category Date Date Treatment Clinician Date Left Left Disease Active Overview: [facility] s ureteral ureteral 10-12 Formattin ity of stone stone 00:00: g of this [place] note Medical might be Branch different from the original. Added automatic ally from request for surgery [id number] CHRONIC CHRONIC Diagnosis Active 2019-02-01 Memoria SDH SDH Active 10-08 10:05:00 l 00:00: Narinder Darling [address] NON NON Diagnosis Active 2018-10-08 Mem oria SUBACUTE SUBACUTE 10-08 10:22:00 l TRAUMATIC TRAUMATIC 00:00: Alon keenan SUBDURAL SUBDURAL 00 HEMATOMA HEMATOMA Active 10/08/2018 [facility] Status Status Disease Active Univers post post [...] NONTRAUMAT Diagnosis Active 2019-02-01 Memoria IC CHRONIC NONTRAUMAT 10:05:00 l SUBDURAL IC CHRONIC Herm ree HEMORRHAGE SUBDURAL HEMORRHAGE Active [facility] [id number] Mixed Problem Common hyperlipid Spirit emia - [facility] [id number] Body mass Problem Com mon index Spirit [BMI] - [facility] 32.0-32.9[facility] [id number] Other Problem Common obesity Spirit due to - [facility] excess [facility] [id number] 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 - [facility] region [facility] myelopathy Medica l or Center radiculopa thy [id number] Other Problem Common chronic Spirit pain - [facility] [id number] Thyroid Problem Commo n nodule Spirit - [facility] [id number] Renal Problem Common calculus Spirit or stone - [facility] [id number] Urinary Problem Commo n incontinen Spirit ce, - [facility] unspecifie [facility] Allergies, Adverse Reactions, Alerts Allergy Allergy Status [...] Active hives Common amine amine Spirit - [facility] Social History Social Habit Start Date Stop Date Quantity Comments Source History SDOH University o f Alcohol Frequency [place] [facility]ical Branch History SDWA University o f Alcohol Std [place] [facility] Drinks Branch History [facility] University o f Alcohol Binge [place] Medic al Branch History of Common Spirit - Tobacco Use [facility] Sex Assigned At Common Sp jaylene - [facility] Exposure to 2022-08-07 2022-08-17 Not sure [facility] SARS-CoV-2 00:00:00 14:58:00 [facility] (event) [place] Alcohol intake 2022-07-29 2022-07-29 0 /d University of 00:00:00 00:00:00 [facility] Tobacco use and 2022-07-28 2022-07-28 Smokeless tobacco Un iversity of exposure 00:00:00 00:00:[address] [facility] Tobacco Comment 2022-07-13 2022-07-13 [facility] Packs/day: N. Recorded:10/09/19 21 Alcohol Comment 2021-07-24 2021-07-24 occasional [facility] 00:00:00 00:00:00 [facility] Smoking Status Start Date Stop Date Source Social History [facility] Medications Ordered Filled Start Stop Current Ordering Indication Dosage Frequency Signature Comments Components Source Medication Medication Date Date Medication? Clinician (SIG) Name Name celecoxib 2021-08- Yes [id number] 100mg Q.5D Take 1 [facility] (CeleBREX) 09-13 capsule [facility]alt [facility] 100 MG 00:00: 05:59 (100 mg capsule 00 :00 total) by mouth in the morning and 1 capsule (100 mg total) in the evening. orphenadrin 2021-08 Yes 100mg Q.5D Take 100 U T e (Norflex) 1-20 mg by Health 100 MG 12 00:00: mouth 2 hr tablet 00 (two) times a day if needed. NAPROXEN 2021-0 Yes 1{tbl} Take 1 Unive rs ORAL 6-20 tablet by ity of 14:45: mouth. [address] tiZANidine 2-0 Yes 4mg Take 4 mg Un leonel 4 mg 6-20 by mouth 3 ity of capsule 14:45: (three) [place] 04 times Medical daily. Branch NAPROXEN 2-0 Yes 1{tbl} Take 1 Unive rs ORAL 6-20 tablet by ity of 14:45: mouth. [address] tiZANidine 2-0 Yes 4mg Take 4 mg Un leonel 4 mg 6-20 by mouth 3 ity of capsule 14:45: (three) [place] 04 times Medical daily. Branch NAPROXEN 2-0 Yes 1{tbl} Take 1 Unive rs ORAL 6-20 tablet by ity of 14:45: mouth. [address] tiZANidine 2-0 Yes 4mg Take 4 mg Un leonel 4 mg 6-20 by mouth 3 ity of capsule 14:45: (three) [place] 04 times Medical daily. Branch NAPROXEN 2-0 Yes 1{tbl} Take 1 Unive rs ORAL 6-20 tablet by ity of 14:45: mouth. [address] tiZANidine 2-0 Yes 4mg Take 4 mg Un leonel 4 mg 6-20 by mouth 3 ity of capsule 14:45: (three) [place] 04 times Medical daily. Branch NAPROXEN 2-0 Yes 1{tbl} Take 1 Unive rs ORAL 6-20 tablet by ity of 14:45: mouth. [address] tiZANidine 2-0 Yes 4mg Take 4 mg Un leonel 4 mg 6-20 by mouth 3 ity of capsule 14:45: (three) [place] 04 times Medical daily. Branch NAPROXEN 2-0 Yes 1{tbl} Take 1 Unive rs ORAL 6-20 tablet by ity of 14:45: mouth. [address] tiZANidine 2-0 Yes 4mg Take 4 mg Un leonel 4 mg 6-20 by mouth 3 ity of capsule 14:45: (three) [place] 04 times Medical daily. Branch NAPROXEN 2022-0 Yes 1{tbl} Take 1 Unive rs ORAL 6-20 tablet by ity of 14:45: mouth. [address] Branch tiZANidine 2022-0 Yes 4mg Take 4 mg Un leonel 4 mg 6-20 by mouth 3 ity of capsule 14:45: (three) [place] 04 times Medical daily. Branch NAPROXEN 2022-0 Yes 1{tbl} Take 1 Unive rs ORAL 6-20 tablet by ity of 14:45: mouth. [address] Branch tiZANidine 2022-0 Yes 4mg Take 4 mg Un leonel 4 mg 6-20 by mouth 3 ity of capsule 14:45: (three) [place] 04 times Medical daily. Branch NAPROXEN 2022-0 Yes 1{tbl} Take 1 Unive rs ORAL 6-20 tablet by ity of 14:45: mouth. [address] tiZANidine 2022-0 Yes 4mg Take 4 mg Un leonel 4 mg 6-20 by mouth 3 ity of capsule 14:45: (three) [place] 04 times Medical daily. Branch NAPROXEN 2022-0 Yes 1{tbl} Take 1 Unive rs ORAL 6-20 tablet by ity of 14:45: mouth. [address] tiZANidine 2022-0 Yes 4mg Take 4 mg Un leonel 4 mg 6-20 by mouth 3 ity of capsule 14:45: (three) [place] 04 times Medical daily. Branch NAPROXEN 2022-0 Yes 1{tbl} Take 1 Unive rs ORAL 6-20 tablet by ity of 14:45: mouth. [address] tiZANidine 2022-0 Yes 4mg Take 4 mg Un leonel 4 mg 6-20 by mouth 3 ity of capsule 14:45: (three) [place] 04 times Medical daily. Branch NAPROXEN 2022-0 Yes 1{tbl} Take 1 Unive rs ORAL 6-20 tablet by ity of 14:45: mouth. [address] tiZANidine 2022-0 Yes 4mg Take 4 mg Un leonel 4 mg 6-20 by mouth 3 ity of capsule 14:45: (three) [place] 04 times Medical daily. Branch NAPROXEN 2022-0 Yes 1{tbl} Take 1 Unive rs ORAL 6-20 tablet by ity of 14:45: mouth. [address] Branch tiZANidine 2021-0 Yes 4mg Take 4 mg Un leonel 4 mg 6-20 by mouth 3 ity of capsule 14:45: (three) [place] [address] times Medical daily. Branch DULoxetine 2021-0 Yes 20mg Take 20 mg U nivers 20 mg 3-23 by mouth ity of capsule 19:13: daily. [address] Branch DULoxetine 2021-0 Yes 20mg Take 20 mg U nivers 20 mg 3-23 by mouth ity of capsule 19:13: daily. [address] DULoxetine 2021-0 Yes 20mg Take 20 mg U nivers 20 mg 3-23 by mouth ity of capsule 19:13: daily. [address] DULoxetine 2021-0 Yes 20mg Take 20 mg U nivers 20 mg 3-23 by mouth ity of capsule 19:13: daily. [address] DULoxetine 2021-0 Yes 20mg Take 20 mg U nivers 20 mg 3-23 by mouth ity of capsule 19:13: daily. [address] DULoxetine 2021-0 Yes 20mg Take 20 mg U nivers 20 mg 3-23 by mouth ity of capsule 19:13: daily. [address] DULoxetine 2021-0 Yes 20mg Take 20 mg U nivers 20 mg 3-23 by mouth ity of capsule 19:13: daily. [address] DULoxetine 2021-0 Yes 20mg Take 20 mg U nivers 20 mg 3-23 by mouth ity of capsule 19:13: daily. [address] DULoxetine 2021-0 Yes 20mg Take 20 mg U nivers 20 mg 3-23 by mouth ity of capsule 19:13: daily. [address] DULoxetine 2021-0 Yes 20mg Take 20 mg U nivers 20 mg 3-23 by mouth ity of capsule 19:13: daily. [address] DULoxetine 2021-0 Yes 20mg Take 20 mg U nivers 20 mg 3-23 by mouth ity of capsule 19:13: daily. [address] DULoxetine 2021-0 Yes 20mg Take 20 mg U nivers 20 mg 3-23 by mouth ity of capsule 19:13: daily. [place] 47 Medical Branch DULoxetine 2-0 Yes 20mg Take 20 mg U nivers 20 mg 3-23 by mouth ity of capsule 19:13: daily. [place] [address] Medical Branch TAMSULOSIN 2021-0 Yes [id number] TAKE 1 U nivers 0.4 mg 24 3-23 CAPSULE BY ity of hr capsule 00:00: MOUTH [place] EVERY DAY Medical Branch TAMSULOSIN 2-0 Yes [id number] TAKE 1 U nivers 0.4 mg 24 3-23 CAPSULE BY ity of hr capsule 00:00: MOUTH [place] EVERY DAY Medical Branch TAMSULOSIN 2-0 Yes [id number] TAKE 1 U nivers 0.4 mg 24 3-23 CAPSULE BY ity of hr capsule 00:00: MOUTH [place] EVERY DAY Medical Branch TAMSULOSIN 2-0 Yes [id number] TAKE 1 U nivers 0.4 mg 24 3-23 CAPSULE BY ity of hr capsule 00:00: MOUTH [place] EVERY DAY Medical Branch TAMSULOSIN 2-0 Yes [id number] TAKE 1 U nivers 0.4 mg 24 3-23 CAPSULE BY ity of hr capsule 00:00: [facility] EVERY DAY Medical Branch TAMSULOSIN 2-0 Yes [id number] TAKE 1 U nivers 0.4 mg 24 3-23 CAPSULE BY ity of hr capsule 00:00: [facility] EVERY DAY Medical Branch TAMSULOSIN 2-0 Yes [id number] TAKE 1 U nivers 0.4 mg 24 3-23 CAPSULE BY ity of hr capsule 00:00: [facility] EVERY DAY Medical Branch TAMSULOSIN 2-0 Yes [id number] TAKE 1 U nivers 0.4 mg 24 3-23 CAPSULE BY ity of hr capsule 00:00: [facility] EVERY DAY Medical Branch TAMSULOSIN 2022-0 Yes [id number] TAKE 1 U nivers 0.4 mg 24 3-23 CAPSULE BY ity of hr capsule 00:00: MOUTH [place] EVERY DAY Medical Branch TAMSULOSIN 2022-0 Yes [id number] TAKE 1 U nivers 0.4 mg 24 3-23 CAPSULE BY ity of hr capsule 00:00: MOUTH [place] EVERY DAY Medical Branch TAMSULOSIN 2022-0 Yes [id number] TAKE 1 U nivers 0.4 mg 24 3-23 CAPSULE BY ity of hr capsule 00:00: MOUTH [place] 00 EVERY DAY Medical Branch TAMSULOSIN 2021-0 Yes [id number] TAKE 1 U nivers 0.4 mg 24 3-23 CAPSULE BY ity of hr capsule 00:00: MOUTH [place] 00 EVERY DAY Medical Branch TAMSULOSIN 2021-0 Yes [id number] TAKE 1 U nivers 0.4 mg 24 3-23 CAPSULE BY ity of hr capsule 00:00: MOUTH [place] 00 EVERY DAY Medical Branch ibuprofen 2021-0 Yes [id number] 400mg Take 2 U nivers (MOTRIN IB) 3-22 tablets by it y of 200 mg 00:00: mouth [place] tablet 00 every 6 Medical (six) Branch hours as needed for Pain (scale 1-3). ibuprofen 2021-0 Yes [id number] 400mg Take 2 U nivers (MOTRIN IB) 3-22 tablets by it y of 200 mg 00:00: mouth [place] tablet 00 every 6 Medical (six) Branch hours as needed for Pain (scale 1-3). ibuprofen 2021-0 Yes [id number] 400mg Take 2 U nivers (MOTRIN IB) 3-22 tablets by it y of 200 mg 00:00: mouth [place] tablet 00 every 6 Medical (six) Branch hours as needed for Pain (scale 1-3). ibuprofen 2021-0 Yes [id number] 400mg Take 2 U nivers (MOTRIN IB) 3-22 tablets by it y of 200 mg 00:00: mouth [place] tablet 00 every 6 Medical (six) Branch hours as needed for Pain (scale 1-3). ibuprofen 2021-0 Yes [id number] 400mg Take 2 U nivers (MOTRIN IB) 3-22 tablets by it y of 200 mg 00:00: mouth [place] tablet 00 every 6 Medical (six) Branch hours as needed for Pain (scale 1-3). ibuprofen 2021-0 Yes [id number] 400mg Take 2 U nivers (MOTRIN IB) 3-22 tablets by it y of 200 mg 00:00: mouth [place] tablet 00 every 6 Medical (six) Branch hours as needed for Pain (scale 1-3). ibuprofen 2021-0 Yes [id number] 400mg Take 2 U nivers (MOTRIN IB) 3-22 tablets by it y of 200 mg 00:00: mouth [place] tablet 00 every 6 Medical (six) Branch hours as needed for Pain (scale 1-3). ibuprofen 2021-0 Yes [id number] 400mg Take 2 U nivers (MOTRIN IB) 3-22 tablets by it y of 200 mg 00:00: mouth [place] tablet 00 every 6 Medical (six) Branch hours as needed for Pain (scale 1-3). ibuprofen 2021-0 Yes [id number] 400mg Take 2 U nivers (MOTRIN IB) 3-22 tablets by it y of 200 mg 00:00: mouth [place] tablet 00 every 6 Medical (six) Branch hours as needed for Pain (scale 1-3). ibuprofen 2021-0 Yes [id number] 400mg Take 2 U nivers (MOTRIN IB) 3-22 tablets by it y of 200 mg 00:00: mouth [place] tablet 00 every 6 Medical (six) Branch hours as needed for Pain (scale 1-3). ibuprofen 2021-0 Yes [id number] 400mg Take 2 U nivers (MOTRIN IB) 3-22 tablets by it y of 200 mg 00:00: mouth [place] tablet 00 every 6 Medical (six) Branch hours as needed for Pain (scale 1-3). ibuprofen 0 Yes [id number] 400mg Take 2 U nivers (MOTRIN IB) 3-22 tablets by it y of 200 mg 00:00: mouth [place] tablet 00 every 6 Medical (six) Branch hours as needed for Pain (scale 1-3). ibuprofen 0 Yes [id number] 400mg Take 2 U nivers (MOTRIN IB) 3-22 tablets by it y of 200 mg 00:00: mouth [place] tablet 00 every 6 Medical (six) Branch hours as needed for Pain (scale 1-3). acetaminoph 2022- No [id number] 650mg Take 2 Univers en 325 mg 3-22 03-23 tablets by ity of tablet 00:00: 04:59 mouth [place] 00 :00 every 6 Medical (six) Branch hours as needed for Pain (scale 1-3). acetaminoph 2021-0 2022- No [id number] 650mg Take 2 Univers en 325 mg 3-22 03-23 tablets by ity of tablet 00:00: 04:59 mouth [place] 00 :00 every 6 Medical (six) Branch hours as needed for Pain (scale 1-3). acetaminoph 2021-0 2022- No [id number] 650mg Take 2 Univers en 325 mg 3-22 -23 tablets by ity of tablet 00:00: 04:59 mouth [place] 00 :00 every 6 Medical (six) Branch hours as needed for Pain (scale 1-3). acetaminoph 2022- No [id number] 650mg Take 2 Univers en 325 mg 3-22 03-23 tablets by ity of tablet 00:00: 04:59 mouth [place] 00 :00 every 6 Medical (six) Branch hours as needed for Pain (scale 1-3). acetaminoph 2022- No [id number] 650mg Take 2 Univers en 325 mg 3-22 03-23 tablets by ity of tablet 00:00: 04:59 mouth [place] 00 :00 every 6 Medical (six) Branch hours as needed for Pain (scale 1-3). acetaminoph 2021-2022- No [id number] 650mg Take 2 Univers en 325 mg 3-22 03-23 tablets by ity of tablet 00:00: 04:59 mouth [place] 00 :00 every 6 Medical (six) Branch hours as needed for Pain (scale 1-3). acetaminoph 2022- No [id number] 650mg Take 2 Univers en 325 mg 3-22 03-23 tablets by ity of tablet 00:00: 04:59 mouth [place] 00 :00 every 6 Medical (six) Branch hours as needed for Pain (scale 1-3). acetaminoph 2022- No [id number] 650mg Take 2 Univers en 325 mg 3-22 03-23 tablets by ity of tablet 00:00: 04:59 mouth [place] 00 :00 every 6 Medical (six) Branch hours as needed for Pain (scale 1-3). acetaminoph 2022- No [id number] 650mg Take 2 Univers en 325 mg 3-22 03-23 tablets by ity of tablet 00:00: 04:59 mouth [place] 00 :00 every 6 Medical (six) Branch hours as needed for Pain (scale 1-3). acetaminoph 2021-2022- No [id number] 650mg Take 2 Univers en 325 mg 3-22 03-23 tablets by ity of tablet 00:00: 04:59 mouth [place] 00 :00 every 6 Medical (six) Branch hours as needed for Pain (scale 1-3). acetaminoph 2021-2022- No [id number] 650mg Take 2 Univers en 325 mg 3-22 -23 tablets by ity of tablet 00:00: 04:59 mouth [place] 00 :00 every 6 Medical (six) Branch hours as needed for Pain (scale 1-3). acetaminoph 2021-0 3- No [id number] 650mg Take 2 Univers en 325 mg 3-27 10-23 tablets by ity of tablet 00:00: 04:59 mouth [place] 00 :00 every 6 Medical (six) Branch hours as needed for Pain (scale 1-3). acetaminoph 2021-0 2022- No [id number] 650mg Take 2 Univers en 325 mg 3-27 10-23 tablets by ity of tablet 00:00: 04:59 mouth [place] 00 :00 every 6 Medical (six) Branch hours as needed for Pain (scale 1-3). ibuprofen 2021-0 Yes [id number] 400mg Take 2 U nivers (MOTRIN IB) 3-08 tablets by it y of 200 mg 00:00: mouth [place] tablet 00 every 6 Medical (six) Branch hours as needed for Pain (scale 1-3). phenazopyri 0 Yes [id number] 100mg Take 1 Univers dine 100 mg 3-08 tablet by ity of tablet 00:00: mouth 3 [place] 00 (three) Medical times Branch daily as needed (Bladder Pain). ibuprofen 2021-0 Yes [id number] 400mg Take 2 U nivers (MOTRIN IB) 3-08 tablets by it y of 200 mg 00:00: mouth [place] tablet 00 every 6 Medical (six) Branch hours as needed for Pain (scale 1-3). phenazopyri 2021-0 Yes [id number] 100mg Take 1 Univers dine 100 mg 3-08 tablet by ity of tablet 00:00: mouth 3 [place] 00 (three) Medical times Branch daily as needed (Bladder Pain). ibuprofen 2021-0 Yes [id number] 400mg Take 2 U nivers (MOTRIN IB) 3-08 tablets by it y of 200 mg 00:00: mouth [place] tablet 00 every 6 Medical (six) Branch hours as needed for Pain (scale 1-3). phenazopyri 2021-0 Yes [id number] 100mg Take 1 Univers dine 100 mg 3-08 tablet by ity of tablet 00:00: mouth 3 [place] 00 (three) Medical times Branch daily as needed (Bladder Pain). ibuprofen 202-0 Yes [id number] 400mg Take 2 U nivers (MOTRIN IB) 3-08 tablets by it y of 200 mg 00:00: mouth [place] tablet 00 every 6 Medical (six) Branch hours as needed for Pain (scale 1-3). phenazopyri 2022-0 Yes [id number] 100mg Take 1 Univers dine 100 mg 3-08 tablet by ity of tablet 00:00: mouth 3 [place] 00 (three) Medical times Branch daily as needed (Bladder Pain). ibuprofen 2021-0 Yes [id number] 400mg Take 2 U nivers (MOTRIN IB) 3-08 tablets by it y of 200 mg 00:00: mouth [place] tablet 00 every 6 Medical (six) Branch hours as needed for Pain (scale 1-3). phenazopyri 2021-0 Yes [id number] 100mg Take 1 Univers dine 100 mg 3-08 tablet by ity of tablet 00:00: mouth 3 [place] 00 (three) Medical times Branch daily as needed (Bladder Pain). ibuprofen 2021-0 Yes [id number] 400mg Take 2 U nivers (MOTRIN IB) 3-08 tablets by it y of 200 mg 00:00: mouth [place] tablet 00 every 6 Medical (six) Branch hours as needed for Pain (scale 1-3). phenazopyri 2021-0 Yes [id number] 100mg Take 1 Univers dine 100 mg 3-08 tablet by ity of tablet 00:00: mouth 3 [place] 00 (three) Medical times Branch daily as needed (Bladder Pain). ibuprofen 2-0 Yes [id number] 400mg Take 2 U nivers (MOTRIN IB) 3-08 tablets by it y of 200 mg 00:00: mouth [place] tablet 00 every 6 Medical (six) Branch hours as needed for Pain (scale 1-3). phenazopyri 2022-0 Yes [id number] 100mg Take 1 Univers dine 100 mg 3-08 tablet by ity of tablet 00:00: mouth 3 [place] 00 (three) Medical times Branch daily as needed (Bladder Pain). ibuprofen 2022-0 Yes [id number] 400mg Take 2 U nivers (MOTRIN IB) 3-08 tablets by it y of 200 mg 00:00: mouth [place] tablet 00 every 6 Medical (six) Branch hours as needed for Pain (scale 1-3). phenazopyri 2022-0 Yes [id number] 100mg Take 1 Univers dine 100 mg 3-08 tablet by ity of tablet 00:00: mouth 3 [place] 00 (three) Medical times Branch daily as needed (Bladder Pain). ibuprofen 2-0 Yes [id number] 400mg Take 2 U nivers (MOTRIN IB) 3-08 tablets by it y of 200 mg 00:00: mouth [place] tablet 00 every 6 Medical (six) Branch hours as needed for Pain (scale 1-3). phenazopyri 2-0 Yes [id number] 100mg Take 1 Univers dine 100 mg 3-08 tablet by ity of tablet 00:00: mouth 3 [place] 00 (three) Medical times Branch daily as needed (Bladder Pain). ibuprofen 2-0 Yes [id number] 400mg Take 2 U nivers (MOTRIN IB) 3-08 tablets by it y of 200 mg 00:00: mouth [place] tablet 00 every 6 Medical (six) Branch hours as needed for Pain (scale 1-3). phenazopyri 2-0 Yes [id number] 100mg Take 1 Univers dine 100 mg 3-08 tablet by ity of tablet 00:00: mouth 3 [place] 00 (three) Medical times Branch daily as needed (Bladder Pain). ibuprofen 2022-0 Yes [id number] 400mg Take 2 U nivers (MOTRIN IB) 3-08 tablets by it y of 200 mg 00:00: mouth [place] tablet 00 every 6 Medical (six) Branch hours as needed for Pain (scale 1-3). phenazopyri 2022-0 Yes [id number] 100mg Take 1 Univers dine 100 mg 3-08 tablet by ity of tablet 00:00: mouth 3 [place] 00 (three) Medical times Branch daily as needed (Bladder Pain). ibuprofen 2022-0 Yes [id number] 400mg Take 2 U nivers (MOTRIN IB) 3-08 tablets by it y of 200 mg 00:00: mouth [place] tablet 00 every 6 Medical (six) Branch hours as needed for Pain (scale 1-3). phenazopyri 2022-0 Yes [id number] 100mg Take 1 Univers dine 100 mg 3-08 tablet by ity of tablet 00:00: mouth 3 [place] 00 (three) Medical times Branch daily as needed (Bladder Pain). ibuprofen Yes [id number] 400mg Take 2 U nivers (MOTRIN IB) 3-08 tablets by it y of 200 mg 00:00: mouth [place] tablet 00 every 6 Medical (six) Branch hours as needed for Pain (scale 1-3). phenazopyri Yes [id number] 100mg Take 1 Univers dine 100 mg 3-08 tablet by ity of tablet 00:00: mouth 3 [place] 00 (three) Medical times Branch daily as needed (Bladder Pain). acetaminoph 2022- No [id number] 650mg Take 2 Univers en 325 mg 3-08 03-09 tablets by ity of tablet 00:00: 05:59 mouth [place] 00 :00 every 6 Medical (six) Branch hours as needed for Pain (scale 1-3). acetaminoph 2022- No [id number] 650mg Take 2 Univers en 325 mg 3-08 03-09 tablets by ity of tablet 00:00: 05:59 mouth [place] 00 :00 every 6 Medical (six) Branch hours as needed for Pain (scale 1-3). acetaminoph 2022- No [id number] 650mg Take 2 Univers en 325 mg 3-08 03-09 tablets by ity of tablet 00:00: 05:59 mouth [place] 00 :00 every 6 Medical (six) Branch hours as needed for Pain (scale 1-3). acetaminoph 2022- No [id number] 650mg Take 2 Univers en 325 mg 3-08 03-09 tablets by ity of tablet 00:00: 05:59 mouth [place] 00 :00 every 6 Medical (six) Branch hours as needed for Pain (scale 1-3). acetaminoph 3- No [id number] 650mg Take 2 Univers en 325 mg 3-08 03-09 tablets by ity of tablet 00:00: 05:59 mouth [place] 00 :00 every 6 Medical (six) Branch hours as needed for Pain (scale 1-3). acetaminoph 2022- No [id number] 650mg Take 2 Univers en 325 mg 3-08 03-09 tablets by ity of tablet 00:00: 05:59 mouth [place] 00 :00 every 6 Medical (six) Branch hours as needed for Pain (scale 1-3). acetaminoph 2022- No [id number] 650mg Take 2 [facility] en 325 mg 3- 03-09 tablets by ity of tablet 00:00: 05:59 mouth [place] 00 :00 every 6 Medical (six) Branch hours as needed for Pain (scale 1-3). acetaminoph 3- No [id number] 650mg Take 2 [facility] en 325 mg 3- 03-09 tablets by ity of tablet 00:00: 05:59 mouth [place] 00 :00 every 6 Medical (six) Branch hours as needed for Pain (scale 1-3). acetaminoph 2021-2022- No [id number] 650mg Take 2 [facility] en 325 mg 3- 03-09 tablets by ity of tablet 00:00: 05:59 mouth [place] 00 :00 every 6 Medical (six) Branch hours as needed for Pain (scale 1-3). acetaminoph 2022- No [id number] 650mg Take 2 [facility] en 325 mg 3- 03-09 tablets by ity of tablet 00:00: 05:59 mouth [place] 00 :00 every 6 Medical (six) Branch hours as needed for Pain (scale 1-3). acetaminoph 3- No [id number] 650mg Take 2 [facility] en 325 mg 3- 03-09 tablets by ity of tablet 00:00: 05:59 mouth [place] 00 :00 every 6 Medical (six) Branch hours as needed for Pain (scale 1-3). acetaminoph 3- No [id number] 650mg Take 2 [facility] en 325 mg 3- 03-09 tablets by ity of tablet 00:00: 05:59 mouth [place] 00 :00 every 6 Medical (six) Branch hours as needed for Pain (scale 1-3). acetaminoph 2021-3- No [id number] 650mg Take 2 [facility] en 325 mg 3-08 03-09 tablets by ity of tablet 00:00: 05:59 mouth [place] 00 :00 every 6 Medical (six) Branch hours as needed for Pain (scale 1-3). sulfamethox 2021-0 Yes [id number] 1{tbl} Take 1 [facility] azole-trime 3-07 tablet by ity of thoprim 00:00: mouth 2 [place] (BACTRIM 00 (two) Medical DS) 800-160 times Branch mg per daily. tablet sulfamethox 2022-0 Yes [id number] 1{tbl} Take 1 [facility] azole-trime 3-07 tablet by ity of thoprim 00:00: mouth 2 [place] (BACTRIM 00 (two) Medical DS) 800-160 times Branch mg per daily. tablet sulfamethox 2022-0 Yes [id number] 1{tbl} Take 1 [facility] azole-trime 3-07 tablet by ity of thoprim 00:00: mouth 2 [place] (BACTRIM 00 (two) Medical DS) 800-160 times Branch mg per daily. tablet sulfamethox 2022-0 Yes [id number] 1{tbl} Take 1 [facility] azole-trime 3-07 tablet by ity of thoprim 00:00: mouth 2 [place] (BACTRIM 00 (two) Medical DS) 800-160 times Branch mg per daily. tablet sulfamethox 2022-0 Yes [id number] 1{tbl} Take 1 [facility] azole-trime 3-07 tablet by ity of thoprim 00:00: mouth 2 [place] (BACTRIM 00 (two) Medical DS) 800-160 times Branch mg per daily. tablet sulfamethox 2022-0 Yes [id number] 1{tbl} Take 1 [facility] azole-trime 3-07 tablet by ity of thoprim 00:00: mouth 2 [place] (BACTRIM 00 (two) Medical DS) 800-160 times Branch mg per daily. tablet sulfamethox 2022-0 Yes [id number] 1{tbl} Take 1 [facility] azole-trime 3-07 tablet by ity of thoprim 00:00: mouth 2 [place] (BACTRIM 00 (two) Medical DS) 800-160 times Branch mg per daily. tablet sulfamethox 2022-0 Yes [id number] 1{tbl} Take 1 [facility] azole-trime 3-07 tablet by ity of thoprim 00:00: mouth 2 [place] (BACTRIM 00 (two) Medical DS) 800-160 times Branch mg per daily. tablet sulfamethox 2022-0 Yes [id number] 1{tbl} Take 1 [facility] azole-trime 3-07 tablet by ity of thoprim 00:00: mouth 2 [place] (BACTRIM 00 (two) Medical DS) 800-160 times Branch mg per daily. tablet sulfamethox 2022-0 Yes [id number] 1{tbl} Take 1 [facility] azole-trime 3-07 tablet by ity of thoprim 00:00: mouth 2 [place] (BACTRIM 00 (two) Medical DS) 800-160 times Branch mg per daily. tablet sulfamethox 2022-0 Yes [id number] 1{tbl} Take 1 [facility] azole-trime 3-07 tablet by ity of thoprim 00:00: mouth 2 [place] (BACTRIM 00 (two) Medical DS) 800-160 times Branch mg per daily. tablet sulfamethox 2022-0 Yes [id number] 1{tbl} Take 1 [facility] azole-trime 3-07 tablet by ity of thoprim 00:00: mouth 2 [place] (BACTRIM 00 (two) Medical DS) 800-160 times Branch mg per daily. tablet sulfamethox 2022-0 Yes [id number] 1{tbl} Take 1 [facility] azole-trime 3-07 tablet by ity of thoprim 00:00: mouth 2 [place] (BACTRIM 00 (two) Medical DS) 800-160 times Branch mg per daily. tablet ketorolac 2022-0 Yes [id number] 10mg Take 1 [facility] le[facility] 10 mg 2-22 tablet by ity of tablet 00:00: mouth [place] 00 every 6 Medical (six) Branch hours as needed for Pain (scale 1-3). ketorolac 2022-0 Yes [id number] 10mg Take 1 [facility] 10 mg 2-22 tablet by ity of tablet 00:00: mouth [place] 00 every 6 Medical (six) Branch hours as needed for Pain (scale 1-3). ketorolac 2022-0 Yes [id number] 10mg Take 1 [facility] 10 mg 2-22 tablet by ity of tablet 00:00: mouth [place] 00 every 6 Medical (six) Branch hours as needed for Pain (scale 1-3). ketorolac 2022-0 Yes [id number] 10mg Take 1 [facility] 10 mg 2-22 tablet by ity of tablet 00:00: mouth [place] 00 every 6 Medical (six) Branch hours as needed for Pain (scale 1-3). ketorolac 2022-0 Yes [id number] 10mg Take 1 [facility] 10 mg 2-22 tablet by ity of tablet 00:00: mouth [place] 00 every 6 Medical (six) Branch hours as needed for Pain (scale 1-3). ketorolac 2022-0 Yes [id number] 10mg Take 1 [facility] [place] 10 mg 2-22 tablet by ity of tablet 00:00: mouth [place] 00 every 6 Medical (six) Branch hours as needed for Pain (scale 1-3). ketorolac 2022-0 Yes [id number] 10mg Take 1 [facility] [place] 10 mg 2-22 tablet by ity of tablet 00:00: mouth [place] 00 every 6 Medical (six) Branch hours as needed for Pain (scale 1-3). ketorolac 2022-0 Yes [id number] 10mg Take 1 [facility] [place] 10 mg 2-22 tablet by ity of tablet 00:00: mouth [place] 00 every 6 Medical (six) Branch hours as needed for Pain (scale 1-3). ketorolac 2022-0 Yes [id number] 10mg Take 1 [facility] [place] 10 mg 2-22 tablet by ity of tablet 00:00: mouth [place] 00 every 6 Medical (six) Branch hours as needed for Pain (scale 1-3). ketorolac 2022-0 Yes [id number] 10mg Take 1 [facility] [place] 10 mg 2-22 tablet by ity of tablet 00:00: mouth [place] 00 every 6 Medical (six) Branch hours as needed for Pain (scale 1-3). ketorolac 2022-0 Yes [id number] 10mg Take 1 [facility] [place] 10 mg 2-22 tablet by ity of tablet 00:00: mouth [place] 00 every 6 Medical (six) Branch hours as needed for Pain (scale 1-3). ketorolac 2022-0 Yes [id number] 10mg Take 1 [facility] [place] 10 mg 2-22 tablet by ity of tablet 00:00: mouth [place] 00 every 6 Medical (six) Branch hours as needed for Pain (scale 1-3). ketorolac 2022-0 Yes [id number] 10mg Take 1 [facility] [place] 10 mg 2-22 tablet by ity of tablet 00:00: mouth [place] 00 every 6 Medical (six) Branch hours as needed for Pain (scale 1-3). Sulfamethox Sulfamethox 2022-0 202- No 1{table BID Sulfametho azole-Trime azole-Trime 2-15 -20 t} xazole-Tri thoprim thoprim 00:00: 00:00 methoprim 800-160 MG 800-160 MG 00 :00 800-160 MG Sulfamethox Sulfamethox 2021-0 2022- No 1{table BID Sulfametho azole-Trime azole-Trime 2-15 09-27 t} xazole-Tri thoprim thoprim 00:00: 00:00 methoprim 800-160 MG 800-160 MG 00 :00 800-160 MG Sulfamethox Sulfamethox 2021-0 2022- No 1{table BID Sulfametho azole-Trime azole-Trime 2-15 - t} xazole-Tri thoprim thoprim 00:00: 00:00 methoprim 800-160 MG 800-160 MG 00 :00 800-160 MG solifenacin 2020-08 Yes [id number] 10mg Take 1 [facility] (VESICARE) 2-17 tablet by ity of 10 mg 00:00: mouth at [place] tablet 00 bedtime. Medical Branch solifenacin 2020-08 Yes [id number] 10mg Take 1 [facility] (VESICARE) 2-17 tablet by ity of 10 mg 00:00: mouth at [place] tablet 00 bedtime. Medical Branch solifenacin 2020-08 Yes [id number] 10mg Take 1 [facility] (VESICARE) 2-17 tablet by ity of 10 mg 00:00: mouth at [place] tablet 00 bedtime. Medical Branch solifenacin 2020-08 Yes [id number] 10mg Take 1 [facility] (VESICARE) 2-17 tablet by ity of 10 mg 00:00: mouth at [place] tablet 00 bedtime. Medical Branch solifenacin 2020-08 Yes [id number] 10mg Take 1 [facility] (VESICARE) 2-17 tablet by ity of 10 mg 00:00: mouth at [place] tablet 00 bedtime. Medical Branch solifenacin 2020-08 Yes [id number] 10mg Take 1 [facility] (VESICARE) 2-17 tablet by ity of 10 mg 00:00: mouth at [place] tablet 00 bedtime. Medical Branch solifenacin 2020-08 Yes [id number] 10mg Take 1 [facility] (VESICARE) 2-17 tablet by ity of 10 mg 00:00: mouth at [place] tablet 00 bedtime. Medical Branch solifenacin 2020-08 Yes [id number] 10mg Take 1 [facility] (VESICARE) 2-17 tablet by ity of 10 mg 00:00: mouth at [place] tablet 00 bedtime. Medical Branch solifenacin 2020-08 Yes [id number] 10mg Take 1 [facility] (VESICARE) 2-17 tablet by ity of 10 mg 00:00: mouth at [place] tablet 00 bedtime. Medical Branch solifenacin 2020-08 Yes [id number] 10mg Take 1 [facility] (VESICARE) 2-17 tablet by ity of 10 mg 00:00: mouth at [place] tablet 00 bedtime. Medical Branch solifenacin 2020-08 Yes [id number] 10mg Take 1 [facility] (VESICARE) 2-17 tablet by ity of 10 mg 00:00: mouth at [place] tablet 00 bedtime. Medical Branch solifenacin 2020-08 Yes [id number] 10mg Take 1 [facility] (VESICARE) 2-17 tablet by ity of 10 mg 00:00: mouth at [place] tablet 00 bedtime. Medical Branch solifenacin 2020-08 Yes [id number] 10mg Take 1 [facility] (VESICARE) 2-17 tablet by ity of 10 mg 00:00: mouth at [place] tablet 00 bedtime. Medical Branch DULoxetine Yes TAKE 1 [facility] (Cymbalta) 8-11 CAPSULE BY [facility] l[facility] [address] 00:00: MOUTH capsule 00 EVERY 12 HOURS DIRECTED traMADoL 2019-08 Yes [id number] 50mg Take 1 [facility] (ULTRAM) 50 2-02 tablet by ity of mg tablet 00:00: mouth [place] 00 every 6 Medical (six) Branch hours as needed for Pain (scale 7-10). Indication s: acute pain methocarbam 2019-08 Yes [id number] 750mg Take 1 [facility] oL 750 mg [...] Indication s: acute pain methocarbam 2019- Yes [id number] 750mg Take 1 [facility] oL 750 mg [...] Indication s: acute pain methocarbam 2019-08 Yes [id number] 750mg Take 1 [facility] oL 750 mg [...] Indication s: acute pain methocarbam 2019-08 Yes [id number] 750mg Take 1 [facility] oL 750 mg [...] Indication s: acute pain methocarbam 2019-08 Yes [id number] 750mg Take 1 [facility] oL 750 mg [...] Indication s: acute pain methocarbam 2019-08 Yes [id number] 750mg Take 1 [facility] oL 750 mg [...] Indication s: acute pain methocarbam 2019-08 Yes [id number] 750mg Take 1 [facility] oL 750 mg [...] Indication s: acute pain methocarbam 2019-08 Yes [id number] 750mg Take 1 [facility] oL 750 mg [...] Indication s: acute pain methocarbam 2019-08 Yes [id number] 750mg Take 1 [facility] oL 750 mg [...] Indication s: acute pain methocarbam 2019-08 Yes [id number] 750mg Take 1 [facility] oL 750 mg [...] Indication s: acute pain methocarbam 2019-1 Yes [id number] 750mg Take 1 [facility] oL 750 mg [...] Indication s: acute pain methocarbam 2019- Yes [id number] 750mg Take 1 [facility] oL 750 mg [...] Indication s: acute pain methocarbam 2019- Yes [id number] 750mg Take 1 [facility] oL 750 mg 2-02 tablet by ity o f tablet 00:00: mouth [place] 00 every 6 Medical (six) Branch hours as needed (MUSCLE SPASM). cetirizine 2020-0 Yes [id number] 10mg Take 1 [facility] 10 mg 3-16 tablet by ity of tablet 00:00: mouth [place] 00 daily. Medical Branch fluticasone 2020-0 Yes [id number] 2{spray Use 2 [facility] propionate 3-16 } Sprays in ity of 50 00:00: each [place] mcg/actuati 00 nostril Medic al on nasal daily. Branch spray cetirizine 2020-0 Yes [id number] 10mg Take 1 [facility] 10 mg 3-16 tablet by ity of tablet 00:00: mouth [place] 00 daily. Medical Branch fluticasone 2020-0 Yes [id number] 2{spray Use 2 [facility] propionate 3-16 } Sprays in ity of 50 00:00: each [place] mcg/actuati 00 nostril Medic al on nasal daily. Branch spray cetirizine 2020-0 Yes [id number] 10mg Take 1 [facility] 10 mg 3-16 tablet by ity of tablet 00:00: mouth [place] 00 daily. Medical Branch fluticasone 2020-0 Yes [id number] 2{spray Use 2 [facility] propionate 3-16 } Sprays in ity of 50 00:00: each [place] mcg/actuati 00 nostril Medic al on nasal daily. Branch spray cetirizine 2020-0 Yes [id number] 10mg Take 1 [facility] 10 mg 3-16 tablet by ity of tablet 00:00: mouth [place] 00 daily. Medical Branch fluticasone 2020-0 Yes [id number] 2{spray Use 2 [facility] propionate 3-16 } Sprays in ity of 50 00:00: each [place] mcg/actuati 00 nostril Medic al on nasal daily. Branch spray cetirizine 2020-0 Yes [id number] 10mg Take 1 [facility] 10 mg 3-16 tablet by ity of tablet 00:00: mouth [place] 00 daily. Medical Branch fluticasone 2020-0 Yes [id number] 2{spray Use 2 [facility] propionate 3-16 } Sprays in ity of 50 00:00: each [place] mcg/actuati 00 nostril Medic al on nasal daily. Branch spray cetirizine 2020-0 Yes [id number] 10mg Take 1 [facility] 10 mg 3-16 tablet by ity of tablet 00:00: mouth [place] 00 daily. Medical Branch fluticasone 2020-0 Yes [id number] 2{spray Use 2 [facility] propionate 3-16 } Sprays in ity of 50 00:00: each [place] mcg/actuati 00 nostril Medic al on nasal daily. Branch spray cetirizine 2020-0 Yes [id number] 10mg Take 1 [facility] 10 mg 3-16 tablet by ity of tablet 00:00: mouth [place] 00 daily. Medical Branch fluticasone 2020-0 Yes [id number] 2{spray Use 2 [facility] propionate 3-16 } Sprays in ity of 50 00:00: each [place] mcg/actuati 00 nostril Medic al on nasal daily. Branch spray cetirizine 2020-0 Yes [id number] 10mg Take 1 [facility] 10 mg 3-16 tablet by ity of tablet 00:00: mouth [place] 00 daily. Medical Branch fluticasone 2020-0 Yes [id number] 2{spray Use 2 [facility] propionate 3-16 } Sprays in ity of 50 00:00: each [place] mcg/actuati 00 nostril Medic al on nasal daily. Branch spray cetirizine 2020-0 Yes [id number] 10mg Take 1 [facility] 10 mg 3-16 tablet by ity of tablet 00:00: mouth [place] 00 daily. Medical Branch fluticasone 2020-0 Yes [id number] 2{spray Use 2 [facility] propionate 3-16 } Sprays in ity of 50 00:00: each [place] mcg/actuati 00 nostril Medic al on nasal daily. Branch spray cetirizine 2020-0 Yes [id number] 10mg Take 1 [facility] 10 mg 3-16 tablet by ity of tablet 00:00: mouth [place] 00 daily. Medical Branch fluticasone 2020-0 Yes [id number] 2{spray Use 2 [facility] propionate 3-16 } Sprays in ity of 50 00:00: each [place] mcg/actuati 00 nostril Medic al on nasal daily. Branch spray cetirizine 2020-0 Yes [id number] 10mg Take 1 [facility] 10 mg 3-16 tablet by ity of tablet 00:00: mouth [place] 00 daily. Medical Branch fluticasone 2020-0 Yes [id number] 2{spray Use 2 [facility] propionate 3-16 } Sprays in ity of 50 00:00: each [place] mcg/actuati 00 nostril Medic al on nasal daily. Branch spray cetirizine 2020-0 Yes [id number] 10mg Take 1 [facility] 10 mg 3-16 tablet by ity of tablet 00:00: mouth [place] 00 daily. Medical Branch fluticasone 2020-0 Yes [id number] 2{spray Use 2 [facility] propionate 3-16 } Sprays in ity of 50 00:00: each [place] mcg/actuati 00 nostril Medic al on nasal daily. Branch spray cetirizine 2020-0 Yes [id number] 10mg Take 1 [facility] 10 mg 3-16 tablet by ity of tablet 00:00: mouth [place] 00 daily. Medical Branch fluticasone 2020-0 Yes [id number] 2{spray Use 2 [facility] propionate 3-16 } Sprays in ity of 50 00:00: each [place] mcg/actuati 00 nostril Medic al on nasal daily. Branch spray methocarbam 2018-0 Yes 500 mg = 1 [facility] ol [...] / 15:24: Wheezing, [place] Ipratropium 00 0 [place] Refill(s) 0.167 MG/ML Inhalant Solution Acetaminoph 2019-0 Yes 100.4 F, M emoria en 325 MG 3-06 0 l Oral Tablet 15:24: Refill(s) H erm methocarbam 2019-0 Yes 500 mg = 1 [facility] ol 500 mg 3-06 tab, PO, l oral tablet 15:24: Q8H, X 5 He , # 15 tab, 0 Refill(s) Levetiracet 2019-0 Yes 500 mg = 1 [facility] am 500 MG 3-06 tab, PO, l Oral Tablet 15:24: Q12H, # 6 H [place] 00 tab, 0 Refill(s) Albuterol 2019-0 Yes 3 mL, NEB, Me moria 0.833 MG/ML 3-06 RQ4H, PRN l / 15:24: Wheezing, [place] Ipratropium 00 0 [place] Refill(s) 0.167 MG/ML Inhalant Solution Acetaminoph 2019-0 Yes 100.4 F, M emoria en 325 MG 3-06 0 l Oral Tablet 15:24: Refill(s) H erm methocarbam 2019-0 Yes 500 mg = 1 [facility] ol 500 mg 3-06 tab, PO, l oral tablet 15:24: Q8H, X 5 He day, # 15 tab, 0 Refill(s) Levetiracet 2019-0 Yes 500 mg = 1 [facility] am 500 MG 3-06 tab, PO, l Oral Tablet 15:24: Q12H, # 6 [facility] [place] 00 tab, 0 Refill(s) Albuterol 2019-0 Yes 3 mL, NEB, Me moria 0.833 MG/ML 3-06 RQ4H, PRN l / 15:24: Wheezing, [place] Ipratropium 00 0 [place] Refill(s) 0.167 MG/ML Inhalant Solution Acetaminoph 2019-0 Yes 100.4 F, M emoria en 325 MG 3-06 0 l Oral Tablet 15:24: Refill(s) H erm methocarbam 2019-0 Yes 500 mg = 1 [facility] ol 500 mg 3-06 tab, PO, l oral tablet 15:24: Q8H, X 5 He day, # 15 tab, 0 Refill(s) Levetiracet 2019-0 Yes 500 mg = 1 [facility] am 500 MG 3-06 tab, PO, l Oral Tablet 15:24: Q12H, # 6 [facility] [place] 00 tab, 0 Refill(s) Albuterol 2019-0 Yes 3 mL, NEB, Me moria 0.833 MG/ML 3-06 RQ4H, PRN l / 15:24: Wheezing, [place] Ipratropium 00 0 [place] Refill(s) 0.167 MG/ML Inhalant Solution Acetaminoph 2019-0 Yes 100.4 F, M emoria en 325 MG 3-06 0 l Oral Tablet 15:24: Refill(s) H erm methocarbam 20190 Yes 500 mg = 1 [facility] ol 500 mg 3-06 tab, PO, l oral tablet 15:24: Q8H, X 5 He day, # 15 tab, 0 Refill(s) Levetiracet 2019-0 Yes 500 mg = 1 [facility] am 500 MG 3-06 tab, PO, l Oral Tablet 15:24: Q12H, # 6 H [place] 00 tab, 0 Refill(s) Albuterol 2019-0 Yes 3 mL, NEB, Me moria 0.833 MG/ML 3-06 RQ4H, PRN l / 15:24: Wheezing, [place] Ipratropium 00 0 [place] Refill(s) 0.167 MG/ML Inhalant Solution Acetaminoph 2019-0 Yes 100.4 F, M emoria en 325 MG 3-06 0 l Oral Tablet 15:24: Refill(s) H erm Bisacodyl 2019-0 No Notes: [facility] a 3-05 (Same As: l 20:47: Dulcolax, [place] 00 Bisco-Lax) Bisacodyl No Notes: [facility] a 3-05 (Same As: l 20:47: Dulcolax, [place] 00 Bisco-Lax) Bisacodyl No Notes: [facility] a 3-05 (Same As: l 20:47: Dulcolax, [place] 00 Bisco-Lax) Bisacodyl No Notes: [facility] a 3-05 (Same As: l 20:47: Dulcolax, [place] 00 Bisco-Lax) Bisacodyl No Notes: [facility] a 3-05 (Same As: l 20:47: Dulcolax, [place] 00 Bisco-Lax) Tramadol No Notes: Not Mem o[facility] 3-05 to exceed l 19:56: 400mg/day. [place] 00 (Same As: Ultram) Tramadol No Notes: Not Mem [facility] 3-05 to exceed l 19:56: 400mg/day. [place] 00 (Same As: Ultram) Tramadol No Notes: Not Mem [facility] 3-05 to exceed l 19:56: 400mg/day. [place] 00 (Same As: Ultram) Tramadol No Notes: Not Mem o[facility] 3-05 to exceed l 19:56: 400mg/day. [place] 00 (Same As: Ultram) Tramadol No Notes: Not Mem [facility] 3-05 to exceed l 19:56: 400mg/day. [place] 00 (Same As: Ultram) heparin No Notes: [facility] 3-05 porcine l 05:55: heparin [place] heparin No Notes: [facility] 3-05 porcine l 05:55: heparin [place] 00 heparin No Notes: [facility] 3-05 porcine l 05:55: heparin [place] 00 heparin No Notes: [facility] 3-05 porcine l 05:55: heparin [place] 00 heparin No Notes: [facility] 3-05 porcine l 05:55: heparin [place] 00 remove No 1 patch, [facility] patch 3-05 Route: l 03:00: TOP, [place] 00 Bedtime, Drug form: ERFILM, Start date: 10/09/18 21:00:00 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, Duration: 30 day, Stop date: 11/07/18 21:00:00 CDT remove 2019-0 No 1 patch, [facility] patch 3-05 Route: l 03:00: TOP, [place] 00 Bedtime, Drug form: ERFILM, Start date: 10/09/18 21:00:00 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, Duration: 30 day, Stop date: 11/07/18 21:00:00 CDT remove 2019-0 No 1 patch, [facility] patch 3-05 Route: l 03:00: TOP, [place] 00 Bedtime, Drug form: ERFILM, Start date: 10/09/18 21:00:00 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, Duration: 30 day, Stop date: 11/07/18 21:00:00 CDT remove 2018-0 No 1 patch, [facility] patch 3-05 Route: l 03:00: TOP, [place] 00 Bedtime, Drug form: ERFILM, Start date: 10/09/18 21:00:00 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, Duration: 30 day, Stop date: 11/07/18 21:00:00 CDT remove 2018-0 No 1 patch, [facility] patch 3-05 Route: l 03:00: TOP, [place] 00 Bedtime, Drug form: ERFILM, Start date: 10/09/18 21:00:00 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, Duration: 30 day, Stop date: 11/07/18 21:00:00 CDT Robaxin No Notes: [facility] 3-04 (Same l 19:00: as:Robaxin [place] 00 ) Robaxin 0 No Notes: [facility] 3-04 (Same l 19:00: as:Robaxin [place] 00 ) Robaxin 0 No Notes: [facility] 3-04 (Same l 19:00: as:Robaxin [place] 00 ) Robaxin 0 No Notes: [facility] 3-04 (Same l 19:00: as:Robaxin [place] 00 ) Robaxin 0 No Notes: [facility] 3-04 (Same l 19:00: as:Robaxin [place] 00 ) Lyrica 0 No Notes: [facility] 3-04 (Same as: l 15:18: Lyrica) [place] 00 Lyrica 0 No Notes: [facility] 3-04 (Same as: l 15:18: Lyrica) [place] Lyrica No Notes: [facility] 3-04 (Same as: l 15:18: Lyrica) [place] Lyrica No Notes: [facility] 3-04 (Same as: l 15:18: Lyrica) [place] 00 Lyrica No Notes: [facility] 3-04 (Same as: l 15:18: Lyrica) [place] 00 Miralax No Notes: [facility] 3-04 Dissolve l 15:17: in 8 oz of [place] 00 water or juice. (Same as: Miralax) Miralax No Notes: [facility] 3-04 Dissolve l 15:17: in 8 oz of [place] 00 water or juice. (Same as: Miralax) Miralax No Notes: [facility] 3-04 Dissolve l 15:17: in 8 oz of [place] 00 water or juice. (Same as: Miralax) [...] Drug form: FILM, Start date: 10/09/18 9:00:00 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, Duration: 30 day, Stop date: 11/07/18 9:00:00 CDT Lidocaine 2018-0 No 1 patch, [facility] anny 0.05 MG/MG 3-04 Route: l Transdermal 15:00: TOP, Narinder n Patch 00 Daily, Drug form: FILM, Start date: 10/09/18 9:00:00 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, Duration: 30 day, Stop date: 11/07/18 9:00:00 CDT Lidocaine 2018-0 No 1 patch, [place] ann[facility] 0.05 MG/MG 3-04 Route: l Transdermal 15:00: TOP, Narinder n Patch 00 Daily, Drug form: FILM, Start date: 10/09/18 9:00:00 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, Duration: 30 day, Stop date: 11/07/18 9:00:00 CDT Lidocaine 2018-0 No 1 patch, [place] ann[facility] 0.05 MG/MG 3-04 Route: l Transdermal 15:00: TOP, Narinder n Patch 00 Daily, Drug form: FILM, Start date: 10/09/18 9:00:00 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, Duration: 30 day, Stop date: 11/07/18 9:00:00 CDT Lidocaine No 1 patch, [facility] ann[facility] 0.05 MG/MG 3-04 Route: l Transdermal 15:00: TOP, Narinder n Patch 00 Daily, Drug form: FILM, Start date: 10/09/18 9:00:00 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, Duration: 30 day, Stop date: 11/07/18 9:00:00 CDT Tramadol No Notes: Not Mem [facility] 3-04 to exceed l 04:24: 400mg/day. [place] 00 (Same As: Ultram) Tramadol No Notes: Not Mem [facility] 3-04 to exceed l 04:24: 400mg/day. [place] 00 (Same As: Ultram) Tramadol No Notes: Not Mem [facility] 3-04 to exceed l 04:24: 400mg/day. [place] 00 (Same As: Ultram) Tramadol No Notes: Not Mem [facility] 3-04 to exceed l 04:24: 400mg/day. [place] 00 (Same As: Ultram) Tramadol No Notes: [...] FACILITY 3-04 (Same as: l 03:00: Senokot) [place] 00 Docusate No 100 mg, 1 [facility] 3-04 cap, l 03:00: Route: PO, [place] 00 Drug form: CAP, Q12H, Dosing Weight 95.455, kg, Start date: 10/08/18 21:00:00 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, Duration: 30 day, Stop date: 11/07/18 9:00:00 CDT Keppra No Notes: [facility] 3-04 (Same l 03:00: as:Keppra) [place] 00 Saline No Notes: [facility] Flush 0.9% 3-04 (Same as: l 03:00: BD [place] 00 Posiflush) Levetiracet No Notes: [facility] am 3-04 MEDICATION l 03:00: WASTE Product Size: 500 mg Product Wasted: ___ mg sennosides, No Notes: [facility] anny [facility] 3-04 (Same as: l 03:00: Senokot) Docusate No 100 mg, 1 [facility] anny 3-04 cap, l 03:00: Route: PO, [place] 00 Drug form: CAP, Q12H, Dosing Weight 95.455, kg, Start date: 10/08/18 21:00:00 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, Duration: 30 day, Stop date: 11/07/18 9:00:00 CDT Keppra No Notes: [facility] 3-04 (Same l 03:00: as:Keppra) [place] 00 Saline No Notes: [facility] Flush 0.9% 3-04 (Same as: l 03:00: BD [place] 00 Posiflush) Levetiracet No Notes: [facility] am 3-04 MEDICATION l 03:00: WASTE Product Size: 500 mg Product Wasted: ___ mg sennosides, No Notes: [facility] anny [facility] 3-04 (Same as: l 03:00: Senokot) [place] 00 Docusate No 100 mg, 1 [facility] 3-04 cap, l 03:00: Route: PO, [place] 00 Drug form: CAP, Q12H, Dosing Weight 95.455, kg, Start date: 10/08/18 21:00:00 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, Duration: 30 day, Stop date: 11/07/18 9:00:00 CDT Keppra No Notes: [facility] 3-04 (Same l 03:00: as:Keppra) [place] 00 Saline No Notes: [facility] Flush 0.9% 3-04 (Same as: l 03:00: BD [place] 00 Posiflush) Levetiracet No Notes: [facility] am 3-04 MEDICATION l 03:00: WASTE Product Size: 500 mg Product Wasted: ___ mg sennosides, No Notes: [facility] anny [facility] 3-04 (Same as: l 03:00: Senokot) Docusate No 100 mg, 1 [facility] 3-04 cap, l 03:00: Route: PO, Drug form: CAP, Q12H, Dosing Weight 95.455, kg, Start date: 10/08/18 21:00:00 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, Duration: 30 day, Stop date: 11/07/18 9:00:00 [...] Weight 95.455, kg, Start date: 10/08/18 21:00:00 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, Duration: 30 day, Stop date: 11/07/18 9:00:00 CDT Vancomycin 2019-0 No 2001 mg: Me moria 3-04 infuse l 00:00: over 2.5 [place] 00 hours For adult patients only: Round to nearest 250 mg per Medical Staff approval MEDICATION WASTE Product Size: 1000 mg Product Wasted: ___ mg Vancomycin 2019-0 No 2000 mg: Me moria 3-04 infuse l 00:00: over 2.5 [place] 00 hours For adult patients only: Round [...] moria 3-04 infuse l 00:00: over 2.5 [place] 00 hours For adult patients only: Round to nearest 250 mg per Medical Staff approval MEDICATION WASTE Product Size: 1000 mg Product Wasted: ___ mg Vancomycin 2019-0 No 2000 mg: Me moria 3-04 infuse l 00:00: over 2.5 [place] 00 hours For adult patients only: Round to nearest 250 mg per Medical Staff approval MEDICATION WASTE Product Size: 1000 mg Product Wasted: ___ mg Artificial 2019-0 No 2 drp, Memor ia Tears 3- Route: l 23:00: BOTH EYES, [place] 00 BID, Drug form: SOLN, Start date: 10/08/18 17:00:00 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, Duration: 30 day, Stop date: 11/07/18 9:00:00 CDT Artificial 2019-0 No 2 drp, Mem[facility] ia Tears 3- Route: l 23:00: BOTH EYES, [place] 00 BID, Drug form: SOLN, Start date: 10/08/18 17:00:00 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, Duration: 30 day, Stop date: 11/07/18 9:00:00 CDT Artificial 2019-0 No 2 drp, Mem[facility] ia Tears 3- Route: l 23:00: BOTH EYES, [place] 00 BID, Drug form: SOLN, Start date: 10/08/18 17:00:00 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, Duration: 30 day, Stop date: 11/07/18 9:00:00 CDT Artificial 2019-0 No 2 drp, Mem[facility] ia Tears 3- Route: l 23:00: BOTH EYES, [place] 00 BID, Drug form: SOLN, Start date: 10/08/18 17:00:00 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, Duration: 30 day, Stop date: 11/07/18 9:00:00 CDT Artificial 2019-0 No 2 drp, Mem[facility] ia Tears 3- Route: l 23:00: BOTH EYES, [place] 00 BID, Drug form: SOLN, Start date: 10/08/18 17:00:00 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, Duration: 30 day, Stop date: 11/07/18 9:00:00 CDT Vancomycin 2019-0 No 1 gm, Memori a 3-03 Route: IV, l 22:00: Q8H, [place] 00 Dosing Weight 95.455, kg, Start date: 10/08/18 16:00:00 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, Duration: 1 day, Stop date: 10/09/18 8:00:00 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, ABX Indication : Surgical Prophylaxi s Vancomycin 2019-0 No 1 gm, Memori a 3-03 Route: IV, l 22:00: Q8H, [place] 00 Dosing Weight 95.455, kg, Start date: 10/08/18 16:00:00 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, Duration: 1 day, Stop date: 10/09/18 8:00:00 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, ABX Indication : Surgical Prophylaxi s Vancomycin 2019-0 No 1 gm, Memori a 3-03 Route: IV, l 22:00: Q8H, [place] 00 Dosing Weight 95.455, kg, Start date: 10/08/18 16:00:00 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, Duration: 1 day, Stop date: 10/09/18 8:00:00 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, ABX Indication : Surgical Prophylaxi s Vancomycin 2019-0 No 1 gm, Memori a 3-03 Route: IV, l 22:00: Q8H, [place] 00 Dosing Weight 95.455, kg, Start date: 10/08/18 16:00:00 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, Duration: 1 day, Stop date: 10/09/18 8:00:00 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, ABX Indication : Surgical Prophylaxi s Vancomycin 2019-0 No 1 gm, Memori a 3- Route: IV, l 22:00: Q8H, [place] 00 Dosing Weight 95.455, kg, Start date: 10/08/18 16:00:00 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, Duration: 1 day, Stop date: 10/09/18 8:00:00 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, ABX Indication : Surgical Prophylaxi s Glucagon 2019-0 No 1 mg, Memoria - Route: IM, l 20:19: Drug form: [place] 00 PDR/INJ, PRN, Dosing Weight 95.455, kg, PRN Blood Glucose Results, Start date: 10/08/18 14:19:00 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, Duration: 30 day, Stop date: 11/07/18 15:18:00 CDT Dextrose 2019-0 No 25 gm, 50 [facility] anny 50% Syringe 3-03 mL, Route: l 20:19: IVP, Drug Form: INJ, Dosing Weight 95.455, kg, PRN, PRN Blood Glucose Results, Start date: 10/08/18 14:19:00 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, Duration: 30 day, Stop date: 11/07/18 15:18:00 CDT Insulin 2019-0 No 60 units) Edison anny regular 10-08 WASTE: F/P l 20:19: - Black; E - [facility] Trash Bin Stable for 28 days at room temperatur e Expires in days from ____Date Glucagon 2019-0 No 1 mg, Memoria 10-08 Route: IM, l 20:19: Drug form: [place] 00 PDR/INJ, PRN, Dosing Weight 95.455, kg, PRN Blood Glucose Results, Start date: 10/08/18 14:19:00 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, Duration: 30 day, Stop date: 11/07/18 15:18:00 CDT Dextrose 2019-0 No 25 gm, 50 [facility] anny 50% Syringe 3-03 mL, Route: l 20:19: IVP, Drug Form: INJ, Dosing Weight 95.455, kg, PRN, PRN Blood Glucose Results, Start date: 10/08/18 14:19:00 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, Duration: 30 day, Stop date: 11/07/18 15:18:00 CDT Insulin 2019-0 No 60 units) [facility] anny regular - WASTE: l 20:19: F/P - [place] Black; E - [facility] Trash [facility] Stable for 28 days at room temperatur e Expires in days from ____Date Glucagon 2019-0 No 1 mg, Memoria 3- Route: IM, l 20:19: Drug form: [place] 00 PDR/INJ, PRN, Dosing Weight 95.455, kg, PRN Blood Glucose Results, Start date: 10/08/18 14:19:00 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, Duration: 30 day, Stop date: 11/07/18 15:18:00 CDT Dextrose 2019-0 No 25 gm, 50 [facility] anny 50% Syringe 3-03 mL, Route: l 20:19: IVP, Drug Form: INJ, Dosing Weight 95.455, kg, PRN, PRN Blood Glucose Results, Start date: 10/08/18 14:19:00 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, Duration: 30 day, Stop date: 11/07/18 15:18:00 CDT Insulin 2019-0 No 60 units) Edison anny regular - WASTE: F/P l 20:19: - Black; E [place] [facility] Trash Bin Stable for 28 days at room temperatur e Expires in days from ____Date Glucagon 2018-0 No 1 mg, Memoria 3 Route: IM, l 20:19: Drug form: [place] 00 PDR/INJ, PRN, Dosing Weight 95.455, kg, PRN Blood Glucose Results, Start date: 10/08/18 14:19:00 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, Duration: 30 day, Stop date: 11/07/18 15:18:00 CDT Dextrose 2019-0 No 25 gm, 50 [facility] anny 50% Syringe 3-03 mL, Route: l 20:19: IVP, Drug [place] 00 Form: INJ, Dosing Weight 95.455, kg, PRN, PRN Blood Glucose Results, Start date: 10/08/18 14:19:00 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, Duration: 30 day, Stop date: 11/07/18 15:18:00 [...] Blood Glucose Results, Start date: 10/08/18 14:19:00 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, Duration: 30 day, Stop date: 11/07/18 15:18:00 CDT Dextrose 2019-0 No 25 gm, 50 [facility] anny 50% Syringe 3-03 mL, Route: l 20:19: IVP, Drug Form: INJ, Dosing Weight 95.455, kg, PRN, PRN Blood Glucose Results, Start date: 10/08/18 14:19:00 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, Duration: 30 day, Stop date: 11/07/18 15:18:00 CDT Insulin 2019-0 No 60 units) Edison anny regular - WASTE: F/P l 20:19: - Black; E - [facility] Trash [facility] Stable for 28 days at room temperatur e Expires in days from ____Date Potassium 2018-0 No Notes: Memori a Chloride 3- (Same as: l 20:18: KCL) Infuse over 2 hours. Calcium 2018-0 No Notes: [facility] Gluconate 3- WASTE: F/P l 20:18: - Sink; E - [facility] Trash [facility] Magnesium 2018-0 No Notes: Memori a Oxide 3-03 (Same as: l 20:18: Mag-Ox [place] 00 400) Magnesium oxide 456bu=594f g elemental magnesium Dose=____m g magnesium oxide (___mg elemental magnesium) Calcium 2018-0 No Notes: [facility] Carbonate 3-03 (Same As: l 500 MG 20:18: Tums) [place] Chewable 00 Calcium Tablet Carbonate 500 mg = 200 mg elemental calcium Dose = mg calcium carbonate ( mg elemental calcium) potassium No Notes: Memori a phosphate 3-03 (Same as: l 20:18: K [place] 00 Phosphate. ) Do not infuse phosphorou s concurrent ly in the same line as TPN or IVF that contains calcium. For double lumen central lines, phosphorou s may be infused in a separate lumen from TPN. 1 mMol phoshate has 1.47 mEq potassium Infuse over 4 hours potassium No Notes: Memori a phosphate-s 3- (Same as: l odium 20:18: Phos-NaK) [place] phosphate 00 Each 1.5 250 mg-280 gm pkt has mg-160 mg 250mg oral powder phosphorou for s. Mix reconstitut w/2.5oz ion water and stir. Magnesium No Notes: Memori a Sulfate - WASTE: F/P l 20:18: - Sink; E [place] - [facility] Trash Bin sodium No Notes: [...] Chloride - (Same as: l 20:18: KCL) [place] 00 Infuse over 2 hours. Calcium No Notes: [facility] Gluconate - WASTE: F/P l 20:18: - Sink; E [place] 00 - [facility] Trash Bin Magnesium No Notes: Memori a Oxide 3-03 (Same as: l 20:18: Mag-Ox [place] 00 400) Magnesium oxide 556hy=149c g elemental magnesium Dose=____m g magnesium oxide (___mg elemental magnesium) Calcium No Notes: [facility] Carbonate 3-03 (Same As: l 500 MG 20:18: Tums) [place] Chewable 00 Calcium Tablet Carbonate 500 mg = 200 mg elemental calcium Dose = mg calcium carbonate ( mg elemental calcium) potassium No Notes: Memori a phosphate 3-03 (Same as: l 20:18: K [place] 00 Phosphate. ) Do not infuse phosphorou s concurrent ly in the same line as TPN or IVF that contains calcium. For double lumen central lines, phosphorou s may be infused in a separate lumen from TPN. 1 mMol phoshate has 1.47 mEq potassium Infuse over 4 hours potassium 2019- No Notes: Memori a phosphate-s 3-03 (Same as: l odium 20:18: Phos-NaK) [place] phosphate 00 Each 1.5 250 mg-280 gm pkt has mg-160 mg 250mg oral powder phosphorou for s. Mix reconstitut w/2.5oz ion water and stir. Magnesium 2018- No Notes: Memori a Sulfate 3-03 WASTE: F/P l 20:18: - Sink; E [place] - [facility] Trash Bin sodium 2018- No Notes: [facility]oria phosphate 3-03 Infuse l 20:18: over 4 [place] 00 hour. Do not infuse phosphorou s concurrent ly in the same line as TPN or IVF that contains calcium. For double lumen central lines, phosphorou s may be infused in a separate lumen from TPN. Potassium 2018- No Notes: Memori a Chloride 3-03 (Same as: l 20:18: KCL) [place] 00 Infuse over 2 hours. Calcium 2018- No Notes: [facility] Gluconate 3-03 WASTE: F/P l 20:18: - Sink; E [place] - [facility] Trash [facility] Magnesium 2019- No Notes: Memori a Oxide 3-03 (Same as: l 20:18: Mag-Ox [place] 00 400) Magnesium oxide [id number] g elemental magnesium Dose=____m g magnesium oxide (___mg elemental magnesium) Calcium 2019- No Notes: [facility]oria Carbonate 3-03 (Same As: l 500 MG 20:18: Tums) [place] Chewable 00 Calcium Tablet Carbonate 500 mg = 200 mg elemental calcium Dose = mg calcium carbonate ( mg elemental calcium) potassium 2019- No Notes: Memori a phosphate 3-03 (Same [...] Chloride 3-03 (Same as: l 20:18: KCL) [place] 00 Infuse over 2 hours. Calcium No Notes: [facility] Gluconate 3-03 WASTE: F/P l 20:18: - Sink; E [place] [facility] Trash [facility] Magnesium No Notes: Memori a Oxide 3-03 (Same as: l 20:18: Mag-Ox [place] 00 400) Magnesium oxide 273nz=452w g elemental magnesium Dose=____m g magnesium oxide (___mg elemental magnesium) Calcium No Notes: [facility] Carbonate 3-03 (Same As: l 500 MG 20:18: Tums) [place] Chewable 00 Calcium Tablet Carbonate 500 mg = 200 mg elemental calcium Dose = mg calcium carbonate ( mg elemental calcium) potassium No Notes: Memori a phosphate 3-03 (Same as: l 20:18: K [place] 00 Phosphate. ) Do not infuse phosphorou s concurrent ly in the same line as TPN or IVF that contains calcium. For double lumen central lines, phosphorou s may be infused in a separate lumen from TPN. 1 mMol phoshate has 1.47 mEq potassium Infuse over 4 hours potassium No Notes: Memori a phosphate-s 3-03 (Same as: l odium 20:18: Phos-NaK) [place] phosphate 00 Each 1.5 250 mg-280 gm pkt has mg-160 mg 250mg oral powder phosphorou for s. Mix reconstitut w/2.5oz ion water and stir. Magnesium No Notes: Memori a Sulfate 3-03 WASTE: F/P l 20:18: - Sink; E [place] 00 - [facility] Trash Bin sodium No Notes: Memoria phosphate 3-03 Infuse l 20:18: over 4 [place] 00 hour. Do not infuse phosphorou s [...] 20:18: Mag-Ox [place] 00 400) Magnesium oxide 389kb=100s g elemental magnesium Dose=____m g magnesium oxide (___mg elemental magnesium) Calcium No Notes: [facility] Carbonate 3-03 (Same As: l 500 MG 20:18: Tums) [place] Chewable 00 Calcium Tablet Carbonate 500 mg [...] 3-03 (Same as: l odium 20:18: Phos-NaK) [place] phosphate 00 Each 1.5 250 mg-280 gm pkt has mg-160 mg 250mg oral powder phosphorou for s. Mix reconstitut w/2.5oz ion water and stir. Magnesium No Notes: Memori a Sulfate 10-08 WASTE: F/P l 20:18: - Sink; E [place] 00 - [facility] Trash Bin sodium No Notes: Memoria phosphate 3-03 Infuse l 20:18: over 4 [place] 00 hour. Do not infuse phosphorou s concurrent ly in the same line as TPN or IVF that contains calcium. For double lumen central lines, phosphorou s may be infused in a separate lumen from TPN. Labetalol No 10 mg, 2 [facility] anny 3-03 mL, Route: l 20:13: IVP, Drug form: INJ, Q4H, Dosing Weight 95.455, kg, PRN Hypertensi on, Start date: 10/08/18 14:13:00 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, Duration: 30 day, Stop date: 11/07/18 14:12:00 CDT Hydralazine No Notes: Edison anny 3-03 (Same as: l 20:13: Apresoline ) Push over 5 minutes Labetalol No 10 mg, 2 [facility] anny 3-03 mL, Route: l 20:13: IVP, Drug form: INJ, Q4H, Dosing Weight 95.455, kg, PRN Hypertensi on, Start date: 10/08/18 14:13:00 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, Duration: 30 day, Stop date: 11/07/18 14:12:00 CDT Hydralazine No Notes: Edison anny 3-03 (Same as: l 20:13: Apresoline ) Push over 5 minutes Labetalol No 10 mg, 2 [facility] anny 3-03 mL, Route: l 20:13: IVP, Drug form: INJ, Q4H, Dosing Weight 95.455, kg, PRN Hypertensi on, Start date: 10/08/18 14:13:00 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, Duration: 30 day, Stop date: 11/07/18 14:12:00 CDT Hydralazine 0 No Notes: Edison anny 3-03 (Same as: l 20:13: Apresoline [place] 00 ) Push over 5 minutes Labetalol 2018-0 No 10 mg, 2 Edison anny 3-03 mL, Route: l 20:13: IVP, Drug [place] 00 form: INJ, Q4H, Dosing Weight 95.455, kg, PRN Hypertensi on, Start date: 10/08/18 14:13:00 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, Duration: 30 day, Stop date: 11/07/18 14:12:00 CDT Hydralazine 2019-0 No Notes: Edison anny 3-03 (Same as: l 20:13: Apresoline [place] 00 ) Push over 5 minutes Labetalol 2018-0 No 10 mg, 2 Edison anny 3-03 mL, Route: l 20:13: IVP, Drug [place] 00 form: INJ, Q4H, Dosing Weight 95.455, kg, PRN Hypertensi on, Start date: 10/08/18 14:13:00 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, Duration: 30 day, Stop date: 11/07/18 14:12:00 CDT Hydralazine 2019-0 No Notes: Edison anny 3-03 (Same as: l 20:13: Apresoline [place] 00 ) Push over 5 minutes sugammadex 2018-0 No Route: IV, M emoria (ANES) 10-08 Drug form: l 18:30: SOLN, [place] 00 ONCE, Stop date: 10/08/18 12:30:00 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 sugammadex 2018-0 No Route: IV, M emoria (ANES) 10-08 Drug form: l 18:30: SOLN, [place] 00 ONCE, Stop date: 10/08/18 12:30:00 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 sugammadex 2018-0 No Route: IV, M emoria (ANES) - Drug form: l 18:30: SOLN, [place] 00 ONCE, Stop date: 10/08/18 12:30:00 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 sugammadex 2019-0 No Route: IV, M emoria (ANES) 10-08 Drug form: l 18:30: SOLN, [place] 00 ONCE, Stop date: 10/08/18 12:30:00 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 sugammadex 2018-0 No Route: IV, M emoria (ANES) 10-08 Drug form: l 18:30: SOLN, [place] 00 ONCE, Stop date: 10/08/18 12:30:00 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 Hydralazine 2019-0 No 10 mg, Edison anny 10-08 Route: l 18:18: IVP, [place] 00 Q20Min, Dosing Weight 95.455, kg, PRN Elevated BP, Start date: 10/08/18 12:18:00 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, Duration: 2 doses or times, Stop date: Limited # of times Labetalol 2019-0 No 10 mg, 2 Edison anny - mL, Route: l 18:18: IVP, Drug form: INJ, Q5Min, Dosing Weight 95.455, kg, PRN Elevated BP, Start date: 10/08/18 12:18:00 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, Duration: 5 doses or times, Stop date: 10/09/18 0:00:00 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 Acetaminoph 2019-0 No 1,000 mg, M emoria en 10-08 Route: PO, l 18:18: Drug form: [place] 00 TAB, ONCE, Dosing Weight 95.455, kg, PRN Pain Score 1-3, Start date: 10/08/18 12:18:00 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 Promethazin 2019-0 No 6.25 mg, Me moria e 10-08 Route: l 18:18: IVPB, [place] 00 ONCE, Dosing Weight 95.455, kg, PRN Nausea & Vomiting, Start date: 10/08/18 12:18:00 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 Ondansetron 2019-0 No 4 mg, Memor ia 10-08 Route: l 18:18: IVP, ONCE, Dosing Weight 95.455, kg, PRN Nausea & Vomiting, Start date: 10/08/18 12:18:00 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 Dexamethaso 2019-0 No 4 mg, Memor ia ne 10-08 Route: l 18:18: IVP, ONCE, [place] 00 Dosing Weight 95.455, kg, PRN Nausea & Vomiting, Start date: 10/08/18 12:18:00 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 Naloxone 2019-0 No 0.4 mg, Memori a 10-08 Route: l 18:18: IVP, [place] 00 Q2MIN, Dosing Weight 95.455, kg, PRN Narcotic Reversal, Start date: 10/08/18 12:18:00 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, Duration: 8 doses or times, Stop date: Limited # of times Flumazenil 2019-0 No 0.2 mg, Edison anny 3-03 Route: l 18:18: IVP, PRN, [place] 00 Dosing Weight 95.455, kg, PRN Benzodiaze pine Reversal, Initial dose, Start date: 10/08/18 12:18:00 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, Duration: 30 day, Stop date: 11/07/18 13:17:00 CDT Hydromorpho 2019-0 No 0.5 mg, Mem oria ne 3-03 Route: l 18:18: IVP, [place] 00 Q5Min, Dosing Weight 95.455, kg, PRN Pain Score 7-10, Start date: 10/08/18 12:18:00 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, Duration: 4 doses or times, Stop date: Limited # of times Hydralazine 2019-0 No 10 mg, Edison anny 3-03 Route: l 18:18: IVP, [place] 00 Q20Min, Dosing Weight 95.455, kg, PRN Elevated BP, Start date: 10/08/18 12:18:00 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, Duration: 2 doses or times, Stop date: Limited # of times Labetalol 2019-0 No 10 mg, 2 Edison anny 3-03 mL, Route: l 18:18: IVP, Drug [place] 00 form: INJ, Q5Min, Dosing Weight 95.455, kg, PRN Elevated BP, Start date: 10/08/18 12:18:00 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, Duration: 5 doses or times, Stop date: 10/09/18 0:00:00 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 Acetaminoph 2019-0 No 1,000 mg, M emoria en 3- Route: PO, l 18:18: Drug form: [place] 00 TAB, ONCE, Dosing Weight 95.455, kg, PRN Pain Score 1-3, Start date: 10/08/18 12:18:00 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 Promethazin 2019-0 No 6.25 mg, Me moria e 3 Route: l 18:18: IVPB, [place] 00 ONCE, Dosing Weight 95.455, kg, PRN Nausea & Vomiting, Start date: 10/08/18 12:18:00 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 Ondansetron 2019-0 No 4 mg, Memor ia 3-03 Route: l 18:18: IVP, ONCE, [place] 00 Dosing Weight 95.455, kg, PRN Nausea & Vomiting, Start date: 10/08/18 12:18:00 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 Dexamethaso 2019-0 No 4 mg, Memor ia ne 3- Route: l 18:18: IVP, ONCE, [place] 00 Dosing Weight 95.455, kg, PRN Nausea & Vomiting, Start date: 10/08/18 12:18:00 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 Naloxone 2019-0 No 0.4 mg, Memori a 3- Route: l 18:18: IVP, [place] 00 Q2MIN, Dosing Weight 95.455, kg, PRN Narcotic Reversal, Start date: 10/08/18 12:18:00 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, Duration: 8 doses or times, Stop date: Limited # of times Flumazenil 2019-0 No 0.2 mg, Edison anny 3-03 Route: l 18:18: IVP, PRN, Dosing Weight 95.455, kg, PRN Benzodiaze pine Reversal, Initial dose, Start date: 10/08/18 12:18:00 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, Duration: 30 day, Stop date: 11/07/18 13:17:00 CDT Hydromorpho 2019-0 No 0.5 mg, Mem oria ne 3 Route: l 18:18: IVP, [place] 00 Q5Min, Dosing Weight 95.455, kg, PRN Pain Score 7-10, Start date: 10/08/18 12:18:00 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, Duration: 4 doses or times, Stop date: Limited # of times Hydralazine 2019-0 No 10 mg, Edison anny 3-03 Route: l 18:18: IVP, [place] 00 Q20Min, Dosing Weight 95.455, kg, PRN Elevated BP, Start date: 10/08/18 12:18:00 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, Duration: 2 doses or times, Stop date: Limited # of times Labetalol 2019-0 No 10 mg, 2 [facility] anny 3-03 mL, Route: l 18:18: IVP, Drug [place] 00 form: INJ, Q5Min, Dosing Weight 95.455, kg, PRN Elevated BP, Start date: 10/08/18 12:18:00 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, Duration: 5 doses or times, Stop date: 10/09/18 0:00:00 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 Acetaminoph 2019-0 No 1,000 mg, M emoria en 10-08 Route: PO, l 18:18: Drug form: [place] 00 TAB, ONCE, Dosing Weight 95.455, kg, PRN Pain Score 1-3, Start date: 10/08/18 12:18:00 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 Promethazin 2019-0 No 6.25 mg, Me moria e 10-08 Route: l 18:18: IVPB, [place] 00 ONCE, Dosing Weight 95.455, kg, PRN Nausea & Vomiting, Start date: 10/08/18 12:18:00 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 Ondansetron 2019-0 No 4 mg, Memor ia 10-08 Route: l 18:18: IVP, ONCE, [place] 00 Dosing Weight 95.455, kg, PRN Nausea & Vomiting, Start date: 10/08/18 12:18:00 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 Dexamethaso 2019-0 No 4 mg, Memor ia ne 10-08 Route: l 18:18: IVP, ONCE, Dosing Weight 95.455, kg, PRN Nausea & Vomiting, Start date: 10/08/18 12:18:00 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 Naloxone 2019-0 No 0.4 mg, Memori a 10-08 Route: l 18:18: IVP, [place] 00 Q2MIN, Dosing Weight 95.455, kg, PRN Narcotic Reversal, Start date: 10/08/18 12:18:00 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, Duration: 8 doses or times, Stop date: Limited # of times Flumazenil 2019-0 No 0.2 mg, Edison anny 10-08 Route: l 18:18: IVP, PRN, Dosing Weight 95.455, kg, PRN Benzodiaze pine Reversal, Initial dose, Start date: 10/08/18 12:18:00 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, Duration: 30 day, Stop date: 11/07/18 13:17:00 CDT Hydromorpho 2019-0 No 0.5 mg, Mem oria ne 10-08 Route: l 18:18: IVP, [place] 00 Q5Min, Dosing Weight 95.455, kg, PRN Pain Score 7-10, Start date: 10/08/18 12:18:00 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, Duration: 4 doses or times, Stop date: Limited # of times Hydralazine 2019-0 No 10 mg, Edison anny 3- Route: l 18:18: IVP, [place] 00 Q20Min, Dosing Weight 95.455, kg, PRN Elevated BP, Start date: 10/08/18 12:18:00 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, Duration: 2 doses or times, Stop date: Limited # of times Labetalol 2019-0 No 10 mg, 2 Edison anny 3-03 mL, Route: l 18:18: IVP, Drug [place] 00 form: INJ, Q5Min, Dosing Weight 95.455, kg, PRN Elevated BP, Start date: 10/08/18 12:18:00 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, Duration: 5 doses or times, Stop date: 10/09/18 0:00:00 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 Acetaminoph 2019-0 No 1,000 mg, M emoria en 10-08 Route: PO, l 18:18: Drug form: [place] 00 TAB, ONCE, Dosing Weight 95.455, kg, PRN Pain Score 1-3, Start date: 10/08/18 12:18:00 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 Promethazin 2019-0 No 6.25 mg, Me moria e 10-08 Route: l 18:18: IVPB, [place] 00 ONCE, Dosing Weight 95.455, kg, PRN Nausea & Vomiting, Start date: 10/08/18 12:18:00 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 Ondansetron 2019-0 No 4 mg, Memor ia 10-08 Route: l 18:18: IVP, ONCE, Dosing Weight 95.455, kg, PRN Nausea & Vomiting, Start date: 10/08/18 12:18:00 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 Dexamethaso 2019-0 No 4 mg, Memor ia ne 10-08 Route: l 18:18: IVP, ONCE, [place] 00 Dosing Weight 95.455, kg, PRN Nausea & Vomiting, Start date: 10/08/18 12:18:00 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 Naloxone 2019-0 No 0.4 mg, Memori a 10-08 Route: l 18:18: IVP, [place] 00 Q2MIN, Dosing Weight 95.455, kg, PRN Narcotic Reversal, Start date: 10/08/18 12:18:00 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, Duration: 8 doses or times, Stop date: Limited # of times Flumazenil 2019-0 No 0.2 mg, Edison anny 3-03 Route: l 18:18: IVP, PRN, [place] 00 Dosing Weight 95.455, kg, PRN Benzodiaze pine Reversal, Initial dose, Start date: 10/08/18 12:18:00 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, Duration: 30 day, Stop date: 11/07/18 13:17:00 CDT Hydromorpho 2019-0 No 0.5 mg, Mem oria ne 3- Route: l 18:18: IVP, [place] 00 Q5Min, Dosing Weight 95.455, kg, PRN Pain Score 7-10, Start date: 10/08/18 12:18:00 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, Duration: 4 doses or times, Stop date: Limited # of times Hydralazine 2019-0 No 10 mg, Edison anny 3-03 Route: l 18:18: IVP, [place] 00 Q20Min, Dosing Weight 95.455, kg, PRN Elevated BP, Start date: 10/08/18 12:18:00 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, Duration: 2 doses or times, Stop date: Limited # of times Labetalol 2019-0 No 10 mg, 2 Edison anny 3-03 mL, Route: l 18:18: IVP, Drug [place] 00 form: INJ, Q5Min, Dosing Weight 95.455, kg, PRN Elevated BP, Start date: 10/08/18 12:18:00 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, Duration: 5 doses or times, Stop date: 10/09/18 0:00:00 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 Acetaminoph 2019-0 No 1,000 mg, M emoria en 10-08 Route: PO, l 18:18: Drug form: [place] 00 TAB, ONCE, Dosing Weight 95.455, kg, PRN Pain Score 1-3, Start date: 10/08/18 12:18:00 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 Promethazin 2019-0 No 6.25 mg, Me moria e 10-08 Route: l 18:18: IVPB, [place] 00 ONCE, Dosing Weight 95.455, kg, PRN Nausea & Vomiting, Start date: 10/08/18 12:18:00 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 Ondansetron 2019-0 No 4 mg, Memor ia 3-03 Route: l 18:18: IVP, ONCE, [place] 00 Dosing Weight 95.455, kg, PRN Nausea & Vomiting, Start date: 10/08/18 12:18:00 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 Dexamethaso 2019-0 No 4 mg, Memor ia ne 3- Route: l 18:18: IVP, ONCE, [place] 00 Dosing Weight 95.455, kg, PRN Nausea & Vomiting, Start date: 10/08/18 12:18:00 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 Naloxone 2019-0 No 0.4 mg, Memori a 3- Route: l 18:18: IVP, [place] 00 Q2MIN, Dosing Weight 95.455, kg, PRN Narcotic Reversal, Start date: 10/08/18 12:18:00 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, Duration: 8 doses or times, Stop date: Limited # of times Flumazenil 2018-0 No 0.2 mg, Edison anny 3- Route: l 18:18: IVP, PRN, [place] 00 Dosing Weight 95.455, kg, PRN Benzodiaze pine Reversal, Initial dose, Start date: 10/08/18 12:18:00 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, Duration: 30 day, Stop date: 11/07/18 13:17:00 CDT Hydromorpho 2018-0 No 0.5 mg, Mem oria ne 3- Route: l 18:18: IVP, [place] 00 Q5Min, Dosing Weight 95.455, kg, PRN Pain Score 7-10, Start date: 10/08/18 12:18:00 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, Duration: 4 doses or times, Stop date: [...] 17:59: INJ, ONCE, Stop date: 10/08/18 11:59:00 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 metoclopram 2019-0 No Route: IV, Memoria anais (ANES) 10-08 Drug form: l 17:59: INJ, ONCE, Stop date: 10/08/18 11:59:00 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 ondansetron 2019-0 No Route: IV, Memoria (ANES) 10-08 Drug form: l 17:59: INJ, ONCE, Stop date: 10/08/18 11:59:00 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 famotidine 2019-0 No Route: IV, M emoria (ANES) 10-08 Drug form: l 17:59: INJ, ONCE, Stop date: 10/08/18 11:59:00 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 metoclopram 2019-0 No Route: IV, Memoria anais (ANES) 10-08 Drug form: l 17:59: INJ, ONCE, Stop date: 10/08/18 11:59:00 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 ondansetron 2019-0 No Route: IV, Memoria (ANES) 10-08 Drug form: l 17:59: INJ, ONCE, Stop date: 10/08/18 11:59:00 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 famotidine 2018-0 No Route: IV, M emoria (ANES) 10-08 Drug form: l 17:59: INJ, ONCE, Stop date: 10/08/18 11:59:00 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 metoclopram 2019-0 No Route: IV, Memoria anais (ANES) 10-08 Drug form: l 17:59: INJ, ONCE, Stop date: 10/08/18 11:59:00 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 ondansetron 2019-0 No Route: IV, Memoria (ANES) 10-08 Drug form: l 17:59: INJ, ONCE, Stop date: 10/08/18 11:59:00 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 famotidine 2019-0 No Route: IV, M emoria (ANES) 10-08 Drug form: l 17:59: INJ, ONCE, Stop date: 10/08/18 11:59:00 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 metoclopram 2018-0 No Route: IV, Memoria anais (ANES) 10-08 Drug form: l 17:59: INJ, ONCE, Stop date: 10/08/18 11:59:00 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 ondansetron 2019-0 No Route: IV, Memoria (ANES) 10-08 Drug form: l 17:59: INJ, ONCE, Stop date: 10/08/18 11:59:00 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 famotidine 2018-0 No Route: IV, M emoria (ANES) 10-08 Drug form: l 17:59: INJ, ONCE, Stop date: 10/08/18 11:59:00 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 metoclopram 2018-0 No Route: IV, Memoria anais (ANES) 10-08 Drug form: l 17:59: INJ, ONCE, Stop date: 10/08/18 11:59:00 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 ondansetron 2018-0 No Route: IV, Memoria (ANES) 10-08 Drug form: l 17:59: INJ, ONCE, Stop date: 10/08/18 11:59:00 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 phenylephri 2019-0 No Route: IV, Memoria ne (ANES) 10-08 Drug form: l 17:57: INJ, ONCE, Stop date: 10/08/18 11:57:00 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 phenylephri 2019-0 No Route: IV, Memoria ne (ANES) 10-08 Drug form: l 17:57: INJ, ONCE, Stop date: 10/08/18 11:57:00 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 phenylephri 2019-0 No Route: IV, Memoria ne (ANES) 10-08 Drug form: l 17:57: INJ, ONCE, Stop date: 10/08/18 11:57:00 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 phenylephri 2019-0 No Route: IV, Memoria ne (ANES) 10-08 Drug form: l 17:57: INJ, ONCE, Stop date: 10/08/18 11:57:00 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 phenylephri 2019-0 No Route: IV, Memoria ne (ANES) 10-08 Drug form: l 17:57: INJ, ONCE, Stop date: 10/08/18 11:57:00 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 lidocaine 2019-0 No Route: IV, Me moria (ANES) 10-08 Drug form: l 17:51: INJ, ONCE, Stop date: 10/08/18 11:51:00 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 dexamethaso 2019-0 No Route: IV, Memoria ne (ANES) 10-08 Drug form: l 17:51: INJ, ONCE, Stop date: 10/08/18 11:51:00 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 propofol 2019-0 No Route: IV, Mem oria (ANES) 10-08 Drug form: l 17:51: INJ, ONCE, Stop date: 10/08/18 11:51:00 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 rocuronium 2019-0 No Route: IV, M emoria (ANES) 10-08 Drug form: l 17:51: INJ, ONCE, Stop date: 10/08/18 11:51:00 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 levETIRAcet 2019-0 No Route: IV, Memoria am (ANES) 10-08 Drug form: l 17:51: INJ, ONCE, Stop date: 10/08/18 11:51:00 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 fentaNYL 2019-0 No Route: IV, Mem oria (ANES) 10-08 Drug form: l 17:51: INJ, ONCE, Stop date: 10/08/18 11:51:00 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 lidocaine 2019-0 No Route: IV, Me moria (ANES) 10-08 Drug form: l 17:51: INJ, ONCE, Stop date: 10/08/18 11:51:00 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 dexamethaso 2019-0 No Route: IV, Memoria ne (ANES) 10-08 Drug form: l 17:51: INJ, ONCE, Stop date: 10/08/18 11:51:00 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 propofol 2019-0 No Route: IV, Mem oria (ANES) 10-08 Drug form: l 17:51: INJ, ONCE, Stop date: 10/08/18 11:51:00 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 rocuronium 2019-0 No Route: IV, M emoria (ANES) 10-08 Drug form: l 17:51: INJ, ONCE, Stop date: 10/08/18 11:51:00 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 levETIRAcet 2019-0 No Route: IV, Memoria am (ANES) 10-08 Drug form: l 17:51: INJ, ONCE, Stop date: 10/08/18 11:51:00 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 fentaNYL 2019-0 No Route: IV, Mem oria (ANES) 10-08 Drug form: l 17:51: INJ, ONCE, Stop date: 10/08/18 11:51:00 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 lidocaine 2019-0 No Route: IV, Me moria (ANES) 10-08 Drug form: l 17:51: INJ, ONCE, Stop date: 10/08/18 11:51:00 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 dexamethaso 2019-0 No Route: IV, Memoria ne (ANES) 10-08 Drug form: l 17:51: INJ, ONCE, Stop date: 10/08/18 11:51:00 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 propofol 2019-0 No Route: IV, Mem oria (ANES) 10-08 Drug form: l 17:51: INJ, ONCE, Stop date: 10/08/18 11:51:00 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 rocuronium 2019-0 No Route: IV, M emoria (ANES) 10-08 Drug form: l 17:51: INJ, ONCE, Stop date: 10/08/18 11:51:00 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 levETIRAcet 2019-0 No Route: IV, Memoria am (ANES) 10-08 Drug form: l 17:51: INJ, ONCE, Stop date: 10/08/18 11:51:00 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 fentaNYL 2019-0 No Route: IV, Mem oria (ANES) 10-08 Drug form: l 17:51: INJ, ONCE, Stop date: 10/08/18 11:51:00 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 lidocaine 2019-0 No Route: IV, Me moria (ANES) 3- Drug form: l 17:51: INJ, ONCE, Stop date: 10/08/18 11:51:00 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 dexamethaso 2019-0 No Route: IV, Memoria ne (ANES) 10-08 Drug form: l 17:51: INJ, ONCE, Stop date: 10/08/18 11:51:00 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 propofol 2019-0 No Route: IV, Mem oria (ANES) 10-08 Drug form: l 17:51: INJ, ONCE, Stop date: 10/08/18 11:51:00 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 rocuronium 2019-0 No Route: IV, M emoria (ANES) 10-08 Drug form: l 17:51: INJ, ONCE, Stop date: 10/08/18 11:51:00 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 levETIRAcet 2019-0 No Route: IV, Memoria am (ANES) 10-08 Drug form: l 17:51: INJ, ONCE, Stop date: 10/08/18 11:51:00 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 fentaNYL 2019-0 No Route: IV, Mem oria (ANES) 10-08 Drug form: l 17:51: INJ, ONCE, Stop date: 10/08/18 11:51:00 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 lidocaine 2019-0 No Route: IV, Me moria (ANES) 10-08 Drug form: l 17:51: INJ, ONCE, Stop date: 10/08/18 11:51:00 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 dexamethaso 2019-0 No Route: IV, Memoria ne (ANES) 10-08 Drug form: l 17:51: INJ, ONCE, Stop date: 10/08/18 11:51:00 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 propofol 2019-0 No Route: IV, Mem oria (ANES) 10-08 Drug form: l 17:51: INJ, ONCE, Stop date: 10/08/18 11:51:00 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 rocuronium 2019-0 No Route: IV, M emoria (ANES) 10-08 Drug form: l 17:51: INJ, ONCE, Stop date: 10/08/18 11:51:00 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 levETIRAcet 2019-0 No Route: IV, Memoria am (ANES) 3- Drug form: l 17:51: INJ, ONCE, Stop date: 10/08/18 11:51:00 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 fentaNYL 2019-0 No Route: IV, Mem oria (ANES) 3 Drug form: l 17:51: INJ, ONCE, Stop date: 10/08/18 11:51:00 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 propofol 2019-0 No Route: IV, Mem oria (ANES) 10 10-08 Drug form: l mg 16:30: INJ, date: 10/08/18 10:30:00 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, Stop date: 10/08/18 11:30:00 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 remifentani 2019-0 No Route: IV, Memoria l (ANES) 1 10-08 Drug form: l mg 16:30: INJ, date: 10/08/18 10:30:00 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, Stop date: 10/08/18 11:30:00 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 propofol 2019-0 No Route: IV, Mem oria (ANES) 10 10-08 Drug form: l mg 16:30: INJ, date: 10/08/18 10:30:00 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, Stop date: 10/08/18 11:30:00 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 remifentani 2019-0 No Route: IV, Memoria l (ANES) 1 10-08 Drug form: l mg 16:30: INJ, date: 10/08/18 10:30:00 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, Stop date: 10/08/18 11:30:00 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 propofol 2019-0 No Route: IV, Mem oria (ANES) 10 10-08 Drug form: l mg 16:30: INJ, date: 10/08/18 10:30:00 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, Stop date: 10/08/18 11:30:00 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 remifentani 2019-0 No Route: IV, Memoria l (ANES) 1 10-08 Drug form: l mg 16:30: INJ, date: 10/08/18 10:30:00 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, Stop date: 10/08/18 11:30:00 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 propofol 2019-0 No Route: IV, Mem oria (ANES) 10 10-08 Drug form: l mg 16:30: INJ, date: 10/08/18 10:30:00 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, Stop date: 10/08/18 11:30:00 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 remifentani 2019-0 No Route: IV, Memoria l (ANES) 1 10-08 Drug form: l mg 16:30: INJ, date: 10/08/18 10:30:00 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, Stop date: 10/08/18 11:30:00 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 propofol 2019-0 No Route: IV, Mem oria (ANES) 10 3 Drug form: l mg 16:30: INJ, Start [place] date: 10/08/18 10:30:00 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, Stop date: 10/08/18 11:30:00 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 remifentani 2019-0 No Route: IV, Memoria l (ANES) 1 10-08 Drug form: l mg 16:30: INJ, Start [place] date: 10/08/18 10:30:00 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, Stop date: 10/08/18 11:30:00 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 Sodium 2019-0 No Route: IV, Memor ia Chloride 3-03 Drug form: l 0.9% IV 16:25: INJ, Start Herm ree (ANES) date: mL + 10/08/18 vancomycin 10:25:00 (ANES) 1500 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, Stop mg date: 10/08/18 11:25:00 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 Sodium 2019-0 No Route: IV, Memor ia Chloride 3-03 Drug form: l 0.9% IV 16:25: INJ, Start Herm ree (ANES) date: mL 10/08/18 vancomycin 10:25:00 (ANES) 1500 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, Stop mg date: 10/08/18 11:25:00 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 Sodium 2019-0 No Route: IV, Memor ia Chloride 3-03 Drug form: l 0.9% IV 16:25: INJ, Start Herm ree (ANES) date: mL 10/08/18 vancomycin 10:25:00 (ANES) 1500 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, Stop mg date: 10/08/18 11:25:00 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 Sodium 2019-0 No Route: IV, Memor ia Chloride 3-03 Drug form: l 0.9% IV 16:25: INJ, Start Herm ree (ANES) date: mL 10/08/18 vancomycin 10:25:00 (ANES) 1500 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, Stop mg date: 10/08/18 11:25:00 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 Sodium 2019-0 No Route: IV, Memor ia Chloride 3-03 Drug form: l 0.9% IV 16:25: INJ, Start Herm ree (ANES) date: mL + 10/08/18 vancomycin 10:25:00 (ANES) 1500 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, Stop mg date: 10/08/18 11:25:00 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 Isolyte S 2019-0 No Route: IV, Me moria PH 7.4 3-03 Total l (ANES) 1000 16:09: Volume: Her salas mL 00 1,000, Start date: 10/08/18 10:09:00 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, Stop date: 10/08/18 11:09:00 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 Isolyte S 2018-0 No Route: IV, Me moria PH 7.4 3-03 Total l (ANES) 1000 16:09: Volume: Her salas mL 00 1,000, Start date: 10/08/18 10:09:00 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, Stop date: 10/08/18 11:09:00 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 Isolyte S 2019-0 No Route: IV, Me moria PH 7.4 3-03 Total l (ANES) 1000 16:09: Volume: Her salas mL 00 1,000, Start date: 10/08/18 10:09:00 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, Stop date: 10/08/18 11:09:00 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 Isolyte S 2019-0 No Route: IV, Me moria PH 7.4 3-03 Total l (ANES) 1000 16:09: Volume: Her salas mL 00 1,000, Start date: 10/08/18 10:09:00 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, Stop date: 10/08/18 11:09:00 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 Isolyte S 2019-0 No Route: IV, Me moria PH 7.4 3-03 Total l (ANES) 1000 16:09: Volume: Her salas mL 00 1,000, Start date: 10/08/18 10:09:00 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, Stop date: 10/08/18 11:09:00 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 Saline 2018-0 No Notes: Memoria Flush 0.9% 10-08 (Same as: l 15:57: BD [place] 00 Posiflush) Albuterol No 3 ml, Memoria 0.833 MG/ML 10-08 Route: l / 15:57: NEB, Drug [place] Ipratropium 00 Form: [place] SOLN, 0.167 MG/ML Dosing Inhalant Weight Solution 95.455, kg, RQ4H, PRN Wheezing, Start date: 10/08/18 9:57:00 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, Duration: 30 day, Stop date: 11/07/18 9:56:00 CDT Labetalol 2018-0 No 10 mg, 2 Edison anny 3-03 mL, Route: l 15:57: IVP, Drug form: INJ, Q15Min, Dosing Weight 95.455, kg, PRN Hypertensi on, Start date: 10/08/18 9:57:00 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, Duration: 30 day, Stop date: 11/07/18 10:56:00 CDT Hydralazine 0 No 20 mg, 1 Me moria 3-03 mL, Route: l 15:57: IVP, Drug form: INJ, Q4H, Dosing Weight 95.455, kg, PRN Hypertensi on, Start date: 10/08/18 9:57:00 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, Duration: 30 day, Stop date: 11/07/18 9:56:00 CDT Sodium 2018-0 No 1,000 mL, Memori a Chloride 10-08 Rate: 50 l 0.9% IV 15:57: ml/hr, [place] 1,000 mL 00 Infuse over: 20 hr, Route: IV, Dosing Weight 95.455 kg, Total Volume: 1,000, Start date: 10/08/18 9:57:00 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, Duration: 30 day, Stop date: 11/07/18 9:56:00 CDT, 2.16, m2 Levetiracet 2018-0 No Notes: Edison anny am 3-03 Same as l 15:57: Keppra Mix with 100 mL NS, LR or D5W MEDICATION WASTE Product Size: 500 mg Product Wasted: ___ mg Acetaminoph 2019-0 No 100.4 F, M emoria en 3-03 Start l 15:57: date: [place] 00 10/08/18 9:57:00 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, Duration: 30 day, Stop date: 11/07/18 9:56:00 CDT Ondansetron 2018-0 No Notes: Memoria 3-03 MEDICATION l 15:57: WASTE Product Size: 4 mg Product Wasted: ___ mg Bisacodyl 2019-0 No 10 mg, 1 Edison anny 3-03 supp, l 15:57: Route: MT, [place] 00 Drug form: SUPP, Daily, Dosing Weight 95.455, kg, PRN Constipati on, Start date: 10/08/18 9:57:00 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, Duration: 30 day, Stop date: 11/07/18 9:56:00 CDT Saline 2019-0 No Notes: Memoria Flush 0.9% 3 (Same as: l 15:57: BD [place] 00 Posiflush) Albuterol 2019-0 No 3 ml, Memoria 0.833 MG/ML 10-08 Route: l / 15:57: NEB, Drug [place] Ipratropium 00 Form: [place] SOLN, 0.167 MG/ML Dosing Inhalant Weight Solution 95.455, kg, RQ4H, PRN Wheezing, Start date: 10/08/18 9:57:00 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, Duration: 30 day, Stop date: 11/07/18 9:56:00 CDT Labetalol 2019-0 No 10 mg, 2 Edison anny 3-03 mL, Route: l 15:57: IVP, Drug [place] 00 form: INJ, Q15Min, Dosing Weight 95.455, kg, PRN Hypertensi on, Start date: 10/08/18 9:57:00 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, Duration: 30 day, Stop date: 11/07/18 10:56:00 CDT Hydralazine 2019-0 No 20 mg, 1 Me moria 3-03 mL, Route: l 15:57: IVP, Drug form: INJ, Q4H, Dosing Weight 95.455, kg, PRN Hypertensi on, Start date: 10/08/18 9:57:00 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, Duration: 30 day, Stop date: 11/07/18 9:56:00 CDT Sodium 2019-0 No 1,000 mL, Memori a Chloride 10-08 Rate: 50 l 0.9% IV 15:57: ml/hr, [place] 1,000 mL 00 Infuse over: 20 hr, Route: IV, Dosing Weight 95.455 kg, Total Volume: 1,000, Start date: 10/08/18 9:57:00 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, Duration: 30 day, Stop date: 11/07/18 9:56:00 CDT, 2.16, m2 Levetiracet 2018-0 No Notes: Edison anny am - Same as l 15:57: Keppra Mix with 100 mL NS, LR or D5W MEDICATION WASTE Product Size: 500 mg Product Wasted: ___ mg Acetaminoph 2018-0 No 100.4 F, M emoria en 303 Start l 15:57: date: [place] 00 10/08/18 9:57:00 [employer], Duration: 30 day, Stop date: 11/07/18 9:56:00 CDT Ondansetron 2018-0 No Notes: Memoria - MEDICATION l 15:57: WASTE Product Size: 4 mg Product Wasted: ___ mg Bisacodyl 0 No 10 mg, 1 Edison anny - supp, l 15:57: Route: MT, Drug form: SUPP, Daily, Dosing Weight 95.455, kg, PRN Constipati on, Start date: 10/08/18 9:57:00 [employer], Duration: 30 day, Stop date: 11/07/18 9:56:00 CDT Saline 2018-0 No Notes: Memoria Flush 0.9% 10-08 (Same as: l 15:57: BD Posiflush) Albuterol No 3 ml, Memoria 0.833 MG/ML 10-08 Route: l 15:57: NEB, Drug Ipratropium Form: [place] SOLN, 0.167 MG/ML Dosing Inhalant Weight Solution 95.455, kg, RQ4H, PRN Wheezing, Start date: 10/08/18 9:57:00 [employer], Duration: 30 day, Stop date: 11/07/18 9:56:00 CDT Labetalol No 10 mg, 2 Edison anny 3-03 mL, Route: l 15:57: IVP, Drug form: INJ, Q15Min, Dosing Weight 95.455, kg, PRN Hypertensi on, Start date: 10/08/18 9:57:00 [employer], Duration: 30 day, Stop date: 11/07/18 10:56:00 CDT Hydralazine 2019-0 No 20 mg, 1 Me moria 3-03 mL, Route: l 15:57: IVP, Drug form: INJ, Q4H, Dosing Weight 95.455, kg, PRN Hypertensi on, Start date: 10/08/18 9:57:00 [employer], Duration: 30 day, Stop date: 11/07/18 9:56:00 CDT Sodium 2019-0 No 1,000 mL, Memori a Chloride 10-08 Rate: 50 l 0.9% IV 15:57: ml/hr, [place] 1,000 mL 00 Infuse over: 20 hr, Route: IV, Dosing Weight 95.455 kg, Total Volume: 1,000, Start date: 10/08/18 9:57:00 [employer], Duration: 30 day, Stop date: 11/07/18 9:56:00 CDT, 2.16, m2 Levetiracet 2018-0 No Notes: Edison anny am 3-03 Same as l 15:57: Keppra Mix with 100 mL NS, LR or D5W MEDICATION WASTE Product Size: 500 mg Product Wasted: ___ mg Acetaminoph 2018- No 100.4 F, M emoria en 3-03 Start l 15:57: date: 10/08/18 9:57:00 [employer], Duration: 30 day, Stop date: 11/07/18 9:56:00 CDT Ondansetron 2018-0 No Notes: Memoria 3-03 MEDICATION l 15:57: WASTE Product Size: 4 mg Product Wasted: ___ mg Bisacodyl 2019- No 10 mg, 1 Edison anny 3-03 supp, l 15:57: Route: MT, Drug form: SUPP, Daily, Dosing Weight 95.455, kg, PRN Constipati on, Start date: 10/08/18 9:57:00 [employer], Duration: 30 day, Stop date: 11/07/18 9:56:00 CDT Saline 2018-0 No Notes: Memoria Flush 0.9% 10-08 (Same as: l 15:57: BD Posiflush) Albuterol 2018-0 No 3 ml, Memoria 0.833 MG/ML 10-08 Route: l / 15:57: NEB, Drug [place] Ipratropium 00 Form: [place] SOLN, 0.167 MG/ML Dosing Inhalant Weight Solution 95.455, kg, RQ4H, PRN Wheezing, Start date: 10/08/18 9:57:00 [employer], Duration: 30 day, Stop date: 11/07/18 9:56:00 CDT Labetalol 2018-0 No 10 mg, 2 Edison anny 3-03 mL, Route: l 15:57: IVP, Drug [place] 00 form: INJ, Q15Min, Dosing Weight 95.455, kg, PRN Hypertensi on, Start date: 10/08/18 9:57:00 [employer], Duration: 30 day, Stop date: 11/07/18 10:56:00 CDT Hydralazine 2018-0 No 20 mg, 1 Me moria 3-03 mL, Route: l 15:57: IVP, Drug form: INJ, Q4H, Dosing Weight 95.455, kg, PRN Hypertensi on, Start date: 10/08/18 9:57:00 [employer], Duration: 30 day, Stop date: 11/07/18 9:56:00 CDT Sodium 2018-0 No 1,000 mL, Memori a Chloride 10-08 Rate: 50 l 0.9% IV 15:57: ml/hr, [place] 1,000 mL 00 Infuse over: 20 hr, Route: IV, Dosing Weight 95.455 kg, Total Volume: 1,000, Start date: 10/08/18 9:57:00 [employer], Duration: 30 day, Stop date: 11/07/18 9:56:00 CDT, 2.16, m2 Levetiracet 2018-0 No Notes: Edison anny am 3-03 Same as l 15:57: Keppra Mix [place] 00 with 100 mL NS, LR or D5W MEDICATION WASTE Product Size: 500 mg Product Wasted: ___ mg Acetaminoph 2018-0 No 100.4 F, M emoria en 3-03 Start l 15:57: date: [place] 10/08/18 9:57:00 [employer], Duration: 30 day, Stop date: 11/07/18 9:56:00 CDT Ondansetron 2019-0 No Notes: Memoria 3-03 MEDICATION l 15:57: WASTE Product Size: 4 mg Product Wasted: ___ mg Bisacodyl 2019-0 No 10 mg, 1 Edison anny 3-03 supp, l 15:57: Route: MT, [place] 00 Drug form: SUPP, Daily, Dosing Weight 95.455, kg, PRN Constipati on, Start date: 10/08/18 9:57:00 [employer], Duration: 30 day, Stop date: 11/07/18 9:56:00 CDT Saline 2019-0 No Notes: Memoria Flush 0.9% 10-08 (Same as: l 15:57: BD [place] 00 Posiflush) Albuterol 2019-0 No 3 ml, Memoria 0.833 MG/ML 10-08 Route: l / 15:57: NEB, Drug Ipratropium 00 Form: [place] SOLN, 0.167 MG/ML Dosing Inhalant Weight Solution 95.455, kg, RQ4H, PRN Wheezing, Start date: 10/08/18 9:57:00 [employer], Duration: 30 day, Stop date: 11/07/18 9:56:00 CDT Labetalol 2019-0 No 10 mg, 2 Edison anny 3-03 mL, Route: l 15:57: IVP, Drug form: INJ, Q15Min, Dosing Weight 95.455, kg, PRN Hypertensi on, Start date: 10/08/18 9:57:00 [employer], Duration: 30 day, Stop date: 11/07/18 10:56:00 CDT Hydralazine 2018-0 No 20 mg, 1 Me moria 3-03 mL, Route: l 15:57: IVP, Drug form: INJ, Q4H, Dosing Weight 95.455, kg, PRN Hypertensi on, Start date: 10/08/18 9:57:00 [employer], Duration: 30 day, Stop date: 11/07/18 9:56:00 CDT Sodium 2019-0 No 1,000 mL, Memori a Chloride 10-08 Rate: 50 l 0.9% IV 15:57: ml/hr, [place] 1,000 mL 00 Infuse over: 20 hr, Route: IV, Dosing Weight 95.455 kg, Total Volume: 1,000, Start date: 10/08/18 9:57:00 [employer], Duration: 30 day, Stop date: 11/07/18 9:56:00 CDT, 2.16, m2 Levetiracet 2019-0 No Notes: Edison nany am 10-08 Same as l 15:57: Keppra Mix with 100 mL NS, LR or D5W MEDICATION WASTE Product Size: 500 mg Product Wasted: ___ mg Acetaminoph 2018-0 No 100.4 F, M emoria en 3-03 Start l 15:57: date: Carlos 00 10/08/18 9:57:00 [employer], Duration: 30 day, Stop date: 11/07/18 9:56:00 CDT Ondansetron 2018-0 No Notes: Memoria - MEDICATION l 15:57: WASTE Product Size: 4 mg Product Wasted: ___ mg Bisacodyl 2019-0 No 10 mg, 1 Edison anny 10-08 supp, l 15:57: Route: MT, Drug form: SUPP, Daily, Dosing Weight 95.455, kg, PRN Constipati on, Start date: 10/08/18 9:57:00 [employer], Duration: 30 day, Stop date: 11/07/18 9:56:00 CDT Zofran 2018-0 No 4 mg, Memoria 10-08 Route: l 15:09: IVP, Drug form: INJ, ONCE, Dosing Weight 95.455, kg, Priority: STAT, Start date: 10/08/18 9:09:00 [employer], Stop date: 10/08/18 9:09:00 [employer] Morphine 2018-0 No 4 mg, Memoria - Route: l 15:09: IVP, ONCE, Dosing Weight 95.455, kg, Priority: STAT, Start date: 10/08/18 9:09:00 [employer], Stop date: 10/08/18 9:09:00 [employer] Sodium 2019-0 No 1,000 mL, Memori a Chloride 10-08 Infuse l 0.9% 15:09: Over: 1 Carlos (Bolus) IV 00 hr, Route: IV, ONCE, Priority: STAT, Dosing Weight 95.455 kg, Start date: 10/08/18 9:09:00 [employer], Stop date: 10/08/18 9:09:00 [employer] Zofran 2019-0 No 4 mg, Memoria 3-03 Route: l 15:09: IVP, Drug [place] 00 form: INJ, ONCE, Dosing Weight 95.455, kg, Priority: STAT, Start date: 10/08/18 9:09:00 [employer], Stop date: 10/08/18 9:09:00 [employer] Morphine 2019-0 No 4 mg, Memoria 3-03 Route: l 15:09: IVP, ONCE, Carlos 00 Dosing Weight 95.455, kg, Priority: STAT, Start date: 10/08/18 9:09:00 [employer], Stop date: 10/08/18 9:09:00 [employer] Sodium 2019-0 No 1,000 mL, Memori a Chloride 3-03 Infuse l 0.9% 15:09: Over: 1 Carlos (Bolus) IV 00 hr, Route: IV, ONCE, Priority: STAT, Dosing Weight 95.455 kg, Start date: 10/08/18 9:09:00 [employer], Stop date: 10/08/18 9:09:00 [employer] Zofran 2019-0 No 4 mg, Memoria 3-03 Route: l 15:09: IVP, Drug [place] 00 form: INJ, ONCE, Dosing Weight 95.455, kg, Priority: STAT, Start date: 10/08/18 9:09:00 [employer], Stop date: 10/08/18 9:09:00 [employer] Morphine 2019-0 No 4 mg, Memoria 3-03 Route: l 15:09: IVP, ONCE, [place] 00 Dosing Weight 95.455, kg, Priority: STAT, Start date: 10/08/18 9:09:00 [employer], Stop date: 10/08/18 9:09:00 [employer] Sodium 2019-0 No 1,000 mL, Memori a Chloride 3-03 Infuse l 0.9% 15:09: Over: 1 [place] (Bolus) IV 00 hr, Route: IV, ONCE, Priority: STAT, Dosing Weight 95.455 kg, Start date: 10/08/18 9:09:00 [employer], Stop date: 10/08/18 9:09:00 [employer] Zofran 2019-0 No 4 mg, Memoria 3-03 Route: l 15:09: IVP, Drug [place] 00 form: INJ, ONCE, Dosing Weight 95.455, kg, Priority: STAT, Start date: 10/08/18 9:09:00 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, Stop date: 10/08/18 9:09:00 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 Morphine 2019-0 No 4 mg, Memoria 3-03 Route: l 15:09: IVP, ONCE, [place] 00 Dosing Weight 95.455, kg, Priority: STAT, Start date: 10/08/18 9:09:00 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, Stop date: 10/08/18 9:09:00 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 Sodium 2019-0 No 1,000 mL, Memori a Chloride 3-03 Infuse l 0.9% 15:09: Over: 1 Carlos (Bolus) IV 00 hr, Route: IV, ONCE, Priority: STAT, Dosing Weight 95.455 kg, Start date: 10/08/18 9:09:00 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, Stop date: 10/08/18 9:09:00 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 Zofran 2019-0 No 4 mg, Memoria 3-03 Route: l 15:09: IVP, Drug [place] 00 form: INJ, ONCE, Dosing Weight 95.455, kg, Priority: STAT, Start date: 10/08/18 9:09:00 PROFESSOR OF SPORT MANAGEMENT, Stop date: 10/08/18 9:09:00 PROFESSOR OF SPORT MANAGEMENT Morphine 2019-0 No 4 mg, Memoria 3-03 Route: l 15:09: IVP, ONCE, [place] 00 Dosing Weight 95.455, kg, Priority: STAT, Start date: 10/08/18 9:09:00 PROFESSOR OF SPORT MANAGEMENT, Stop date: 10/08/18 9:09:00 PROFESSOR OF SPORT MANAGEMENT Sodium 2019-0 No 1,000 mL, Memori a Chloride 3-03 Infuse l 0.9% 15:09: Over: 1 [place] (Bolus) IV 00 hr, Route: IV, ONCE, Priority: STAT, Dosing Weight 95.455 kg, Start date: 10/08/18 9:09:00 PROFESSOR OF SPORT MANAGEMENT, Stop date: 10/08/18 9:09:00 PROFESSOR OF SPORT MANAGEMENT Sulfamethox Sulfamethox Yes Parminder not Common azole-TMP azole-TMP Velez defined S pirit DS DS - [facility] Tramadol Tramadol Yes Parminder 1 tablet C ommon HCl HCl Velez as needed Spirit - [facility] Naproxen Naproxen Yes Parminder 1 tablet C ommon Velez with food Spirit or milk as - [facility] Gabapentin Gabapentin No 1{capsu Gabapentin 300 MG [...] blood 2022-07-28 16:13:00 134 mm[Hg] Univer sity [facility] Diastolic blood 2022-07-28 16:13:00 87 mm[Hg] [facility] rate 2022-07-28 16:13:00 92 /min [facility] Body temperature 2022-07-28 16:13:00 36.56 Ursula [facility] Respiratory rate 2022-07-28 16:13:00 18 /min [facility] Body height 2022-07-28 16:13:00 170.2 cm [facility] Body weight 2022-07-28 16:13:00 95.981 kg [facility] BMI 2022-07-28 16:13:00 33.14 kg/m2 [facility] Oxygen saturation in 2022-07-28 16:13:00 99 /min [facility] Arterial blood by [facility] Pulse oximetry Branch height 2022-07-28 09:20:00 68.5 [in_i] [facility] weight 2022-07-28 09:20:00 213 [lb_av] [facility] temperature 2022-07-28 09:20:00 98 [degF] [facility] bmi 2022-07-28 09:20:00 31.91 kg/m2 [facility] blood pressure 2022-07-28 09:20:00 125 mm[Hg] [facility] blood pressure 2022-07-28 09:20:00 72 mm[Hg] [facility] - diastolic [facility] Systolic blood 2022-07-13 18:25:00 136 mm[facility]Hg[facility] Diastolic blood 2022-07-13 18:25:00 92 mm[Hg] [facility] Heart rate 2022-07-13 18:25:00 84 [facility] height 2022-07-13 18:25:00 172.7 [facility] weight 2022-07-13 18:25:00 [facility].255 [facility] BMI 2022-07-13 18:25:00 31.93 [facility] 2022-[facility]-28 16:10:00 68.5 [in_i] Common [facility] weight 2022-04-28 16:10:00 215 [lb_av] Common [facility] temperature 2022-04-28 16:10:00 97 [degF] [facility] bmi 2022-04-28 16:10:00 32.21 kg/m2 Common [facility] blood pressure 2022-04-28 16:10:00 122 mm[Hg] [facility] - systolic [facility] blood pressure 2022-04-28 16:10:00 75 mm[Hg] [facility] - diastolic [facility] height 2022-01-27 09:10:00 68.5 [in_i] Common S pirit [facility] weight 2022-01-27 09:10:00 212 [lb_av] Common [facility] temperature 2022-01-27 09:10:00 98 [degF] Common [facility] bmi 2022-01-27 09:10:00 31.76 kg/m2 Common [facility] blood pressure 2022-01-27 09:10:00 128 mm[Hg] [facility] - [facility] blood pressure 2022-01-27 09:10:00 76 mm[Hg] [facility] - diastolic [facility] Systolic blood 2022-01-25 19:43:00 131 mm[Hg] Univer sity of pressure [facility] Diastolic blood 2022-01-25 19:43:00 85 mm[Hg] Unive rsity [facility] Heart rate 2022-01-25 19:43:00 80 /min Universi [facility] Body temperature 2022-01-25 19:43:00 35.94 [facility] Res[facility] rate 2022-01-25 19:43:00 18 /min [facility] Body height 2022-01-25 19:43:00 172.7 cm Universi [facility] Body weight 2022-01-25 19:43:00 94.802 kg [facility] BMI 2022-01-25 19:43:00 31.78 kg/m2 [facility] height 2021-12-25 10:40:00 68.5 [in_i] Common [facility] weight 2021-12-25 10:40:00 211.8 [lb_av] Common [facility] temperature 2021-12-25 10:40:00 97.8 [degF] Common [facility] bmi 2021-12-25 10:40:00 31.73 kg/m2 [facility] oximetry 2021-12-25 10:40:00 96 % [facility] respiratory rate 2021-12-25 10:40:00 17 /min Comm on [facility] blood pressure 2021-12-25 10:40:00 132 mm[Hg] Common [facility] - systolic [facility] blood pressure 2021-12-25 10:40:00 70 mm[Hg] Common [facility] - diastolic [facility] height 2021-09-22 16:20:00 68.5 [in_i] Common [facility] weight 2021-09-22 16:20:00 215 [lb_av] Common [facility] bmi 2021-09-22 16:20:00 32.21 kg/m2 [facility] height 2021-06-30 07:40:00 68.5 [in_i] [facility] weight 2021-06-30 07:40:00 215 [lb_av] [facility] temperature 2021-06-30 07:40:00 97.3 [degF] [facility] bmi 2021-06-30 07:40:00 32.21 kg/m2 [facility] blood pressure 2021-06-30 07:40:00 135 mm[Hg] [facility] - systolic [facility] blood pressure 2021-06-30 07:40:00 72 mm[Hg] [facility] - diastolic [facility] Heart Rate 2018-10-11 17:26:00 [facility] [place] Temperature Oral (F) 2018-10-11 17:26:00 97.9 F [facility] [place] Respitory Rate 2018-10-11 17:26:00 Memori al [place] Systolic (mm Hg) 2018-10-11 17:26:00 Edison rial [place] Diastolic (mm Hg) 2018-10-11 17:26:00 Mem orial [place] Systolic (mm Hg) 2018-10-11 13:44:00 Edison rial [place] Diastolic (mm Hg) 2018-10-11 13:44:00 Mem orial [place] Respitory Rate 2018-10-11 13:44:00 Memori al [place] Heart Rate 2018-10-11 13:44:00 [facility] [place] Temperature Oral (F) 2018-10-11 13:44:00 99.1 F [facility] Temperature Oral (F) 2018-10-11 10:47:00 97.9 F [facility] [place] Heart Rate 2018-10-11 10:47:00 [facility] [place] Respitory Rate 2018-10-11 10:47:00 Memori al [place] Systolic (mm Hg) 2018-10-11 10:47:00 Edison rial [place] Diastolic (mm Hg) 2018-10-11 10:47:00 Mem orial [place] Weight 2018-10-08 21:12:00 [facility] [place] Weight 2018-10-08 14:38:00 Tracy Chiann Height 2018-10-08 14:38:00 172.72 cm [facility] BMI Calculated 2018-10-08 14:38:00 Kathy Otero Procedures Procedure Date / Time Performing Clinician Source Performed CT ABDOMEN PELVIS WO 2022-08-17 21:33:21 Lien Ayala [facility] CONTRAST [facility] Branch AUTHORIZATION TO RELEASE 2022-08-12 06:01:00 Doctor Unassigned, [facility] PHI TO [facility] [place] [facility] US RETROPERITONEAL 2022-03-16 15:37:56 Chris Crane [facility] COMPLETE Medical Branch POCT URINALYSIS AUTO 2022-01-25 19:47:00 Royce Chris [facility] AUTHORIZATION FOR RELEASE 2021-11-10 05:01:00 Doctor Aleksandar, [facility] [place] [facility] Encounters Start End Encounter Admission Attending Care Care Encounter Source Date/Time Date/Time Type Type Clinicians Facility Department ID 2022-07-27 Outpatient Velez, STLMLC STLMLC Common 11:26:02 [facility] 2022-07-15 Outpatient [facility] [id number] [place] 15:14:16 [id number] [facility] 2022-07-13 Outpatient [facility] [id number] [place] 10:08:40 [id number] [facility] 2022-07-12 Outpatient [facility] [id number] [place] 09:49:05 [id number] [facility] 2022-07-07 Outpatient [facility] [id number] [place] 16:25:20 [id number] [facility] 2022-07-06 Outpatient [facility] [id number] [place] 14:50:41 [id number] [facility] 2022-01-27 Outpatient Velez, STLMLC STLMLC Common 09:17:01 [facility] 2021-12-28 Outpatient Velez, STLMLC STLMLC Common 14:58:02 [facility] 2021-12-23 Outpatient Velez, STLMLC STLMLC [id number] Common 10:50:32 [facility] 2021-09-07 Outpatient Velez, STLMLC STLMLC [id number] Common 10:55:02 Parminder [facility] 2021-09-02 Outpatient Velez, STLMLC STLMLC [id number] Common 14:16:27 Parminder [id number] [facility] 2021-09-02 Outpatient Velez, STLMLC STLMLC [id number] Common 14:04:31 Parminder [id number] [facility] 2021-09-02 Outpatient Velez, STLMLC STLMLC [id number] Common 13:55:58 Parminder [facility] 2021-09-02 Outpatient Velez, STLMLC STLMLC [id number] Common 13:16:30 Parminder [id number] [facility] 2021-09-02 Outpatient Velez, STLMLC STLMLC [id number] Common 13:09:28 Parminder [id number] [facility] 2021-09-02 Outpatient Velez, STLMLC STLMLC [id number] Common 13:08:55 Parminder [id number] [facility] 2021-09-02 Outpatient Velez, STLMLC STLMLC [id number] Common 12:53:51 Parminder [id number] [facility] 2021-09-02 Outpatient Velez, STLMLC STLMLC [id number] Common 12:45:22 Parminder [id number] [facility] 2021-09-02 Outpatient Velez, STLMLC STLMLC [id number] Common 12:36:15 Parminder [id number] [facility] 2021-09-02 Outpatient Velez, STLMLC STLMLC [id number] Common 12:19:27 Parminder [id number] [facility] 2021-09-02 Outpatient Velez, STLMLC STLMLC [id number] Common 12:07:47 Parminder [id number] [facility] 2021-09-02 Outpatient Velez, STLMLC STLMLC [id number] Common 12:07:23 Parminder [id number] [facility] 2021-09-02 Outpatient Velez, STLMLC STLMLC [id number] Common 11:44:55 Parminder [id number] [facility] 2021-09-02 Outpatient Velez, STLMLC STLMLC [id number] Common 11:42:01 Parminder [id number] [facility] 2021-09-02 Outpatient Velez, STLMLC STLMLC [id number] Common 11:39:14 Parminder [id number] [facility] 2021-09-02 Outpatient Velez, STLMLC STLMLC [id number] Common 11:33:37 Parminder 53283 [facility] 2018-10-08 [facility] [id number] [facility] 09:57:00 2022-09-09 2022-09-09 [id number] Univers 09:15:00 09:15:00 LIEN contreras o f [facility] 2022-08-24 2022-08-24 (TEL) [facility] [id number] Co mmon 00:00:00 00:00:00 [facility] 2022-08-20 2022-08-20 Case Ayala, [facility] 1.2.840.114 [id number] Univers 00:00:00 00:00:00 Management Lien LUNDY [id number] ity of [place] 4.2.7.2.686 [facility] [phone] Wa dical [facility] 204 Branch BUILDING 2022-08-17 2022-08-17 [facility] 1.2.840.114 [id number] Univers 14:58:30 23:59:00 Encounter Lien LUNDY [id number] ity of [place] 4.2.7.2.686 [facility] [phone] [place] [address] Branch 2022-08-17 2022-08-17 Sewing Line Baler Taylor, Adc Lab Main [facility] 1.2.8 40.114 [id number] Univers 08:45:00 09:00:00 Visit Lien Ayala 350.1.13. 10 ity of [facility] [id number] [phone] Wa dical NAL [address] [facility] 2022-08-17 2022-08-17 Outpatient R [facility] [id number] Univers 08:45:00 08:45:00 LIEN contreras o oniel [facility] 2022-08-12 2022-08-12 Orders Doctor THACKER 1.2.840.114 [id number] Univers 00:00:00 00:00:00 Only Unassigned, NIKO [id number] ity of [place] [facility] [id number] Alli as [phone] [address] 2022-08-02 2022-08-02 Telephone Ayala, [facility] 1.2.840.114 [id number] [facility] 00:00:00 00:00:00 Lien DWIGHTRICHARD [id number] ity of [facility] [id number] [phone] Wa dical NAL [address] [facility] 2022-07-28 2022-07-28 Outpatient R [facility] [id number] Univers 10:30:00 11:07:[address] [facility] 2022-07-28 2022-07-28 [facility] 1.2.840.114 [id number] Univers 10:30:00 11:07:33 Visit Lien LUNDY [id number] ity [facility] [id number] [phone] Wa dical [facility] [address] [facility] 2022-07-28 2022-07-28 OFFICE [facility] [id number] Co mmon 00:00:00 00:00:00 VISIT Spirit ESTAB PT - [facility] LEVEL [facility] 2022-07-22 2022-07-22 Outpatient R CHRISTINA [facility] [id number] Univers 09:15:00 09:15:00 ZOIE contreras o [facility] 2022-07-13 2022-07-13 Office VERONICA Velez [facility] 1.2.840.114 [id number] [place] 09:40:00 12:09:13 Visit Karmen R MED 350.1.13.58 He [place] [id number] [id number] 6 2022-06-16 2022-06-16 Telephone MIKAYLA Be [id number] Univers 00:00:00 00:00:00 Betty SANCHEZY 350.1.13.10 it y of [place] 4.2.7.2.686 [facility] [phone] [address] 2022-04-28 2022-04-28 OFFICE STLMLC STLMLC [id number] Co mmon 00:00:00 00:00:00 VISIT EST Spir it PT LEVEL 3 - [facility] 2022-03-16 2022-03-16 [facility] [id number] Univers 10:05:27 23:59:00 CHRIS ity [facility] 2022-03-16 2022-03-16 [facility] [id number] Univers 09:06:20 23:59:00 Encounter Chris LUNDY [id number] ity antonio KNIGHT 4.2.7.2.686 [facility] [id number] [address] 2022-02-04 2022-02-04 Outpatient R RYAN [facility] [id number] Univers 09:00:00 09:00:00 ATTENDING itstevie [facility] 2022-02-03 2022-02-03 Outpatient [facility] [id number] Univers 16:15:00 16:15:00 PATSY ity [facility] 2022-01-27 2022-01-27 Out[facility] [id number] Univers 00:00:00 00:00:00 CHRIS ity [facility] 2022-01-27 2022-01-27 OFFICE STLMLC STLMLC [id number] Co mmon 00:00:00 00:00:00 VISIT Spirit ESTAB PT - [facility] LEVEL 4 [facility] 2022-01-25 2022-01-25 Outpatient [facility] [id number] Univers 13:45:00 14:56:27 [facility]22-01-25 2022-01-25 Office [facility] 1.2.840.114 [id number] Univers 13:45:00 14:56:27 Visit Chris LUNDY 350.1.13.10 i ty of [id number] [place] [facility] [phone] Wa dical [facility] [address] [facility] 2022-01-25 2022-01-25 Outpatient R [facility] [id number] Univers 13:45:00 14:56:27 [facility] 2022-01-18 2022-01-18 Outpatient R [facility] [id number] Univers 14:45:00 14:45:00 PATSY [facility] 2022-01-08 2022-01-08 Orders Doctor KEDAR 1.2.840.114 [id number] Univers 00:00:00 00:00:00 Only Unassigned, NIKO [id number] ity of [place] [facility] [id number] Alli as [phone] [facility] [address] Branch 2022-01-07 2022-01-07 (TEL) [facility] [id number] Co mmon 00:00:00 00:00:00 [facility] 2021-12-28 2021-12-28 Emergency X [facility] ERT [id number] Univers 12:29:00 14:39:00 [facility]STIAN [facility] 2021-12-28 2021-12-28 Emergency [facility] 1.2.840.114 [id number] Univers 12:29:00 14:39:00 Sebastian [facility] 350.1.13.10 i ty of [facility] [id number] [place] [phone] [facility] 084 Branch 2021-12-28 2021-12-28 (TEL) [facility] [id number] Co mmon 00:00:00 00:00:00 [facility] 2021-12-25 2021-12-25 PREV VISIT STLMLC STLMLC [id number] Common 00:00:00 00:00:00 EST A[age] Fausto 40-65 [facility] 2021-11-12 2021-11-12 (TEL) STLMLC STLC [id number] Co mmon 00:00:00 00:00:00 [facility] 2021-11-10 2021-11-10 Orders Doctor KEDAR 1.2.840.114 [id number] Univers 00:00:00 00:00:00 Only Unassigned, NIKO 350.1.13.10 ity of [facility] [id number] Alli as [phone] [address] 2021-11-02 2021-11-02 Outpatient [facility] [id number] Univers 13:30:00 13:35:36 CHRIS ity [facility] 2021-11-02 2021-11-02 Outpatient R [facility] [id number] Univers 13:30:00 13:35:36 CHRIS ity [facility] 2021-11-02 2021-11-02 Nurse Nurse, Adc Surgery [facility] 1.2. 840.114 [id number] Univers 13:30:00 13:35:36 Visit Chris Crane 350.1.13.10 ity of [id number] [id number] [address] 2021-11-02 2021-11-02 Letter [facility] 1.2.840.114 [id number] Univers 00:00:00 00:00:00 (Out) Chris LUNDY 350.1.13.10 i ty of [place].2.7.2.[place] [id number] Wa dic[address] 2021-10-29 2021-10-29 Outpatient [facility] [id number] Univers 14:00:00 14:57:31 CHRIS ity [facility] 2021-10-292021-10-29 Office Chris Crane [facility] 1.2.840.114 [id number] Univers 14:00:00 14:57:31 Visit Adiel Mitchell NIKKIE 350.1.13.10 ity of [place] 4.2.7.2.[place] [phone] Wa dical [facility] [address] [facility] 2021-10-29 2021-10-29 Outpatient R ROYCE [facility] [id number] Univers 14:00:00 14:57:31 CHRIS ity [facility] 2021-10-28 2021-10-28 Outpatient U [facility] [id number] Univers 01:14:00 18:00:00 ADIEL diane [facility] 2021-10-28 2021-10-28 Hospital [facility] Adiel HUBERNIE 1.2.840. 114 [id number] Univers 01:14:00 18:00:00 Encounter Royce Chris POPE 350.1.13.10 ity of [facility] 4.2.7.2.686 Alli as [phone] [facility] [address] [place] 2021-10-28 2021-10-28 Refill [facility] 1.2.840.114 [id number] Univers 00:00:00 00:00:00 Chris NIKKIE 350.1.13.10 i ty [place].7.2.[place] [phone] Wa dical NAL [address] [facility] 2021-10-28 2021-10-28 Orders Doctor KEDAR 1.2.840.114 [id number] Univers 00:00:00 00:00:00 Only Unassigned, NIKO 350.1.13.10 ity of [place] [facility] 4.2.7.2.686 Alli as [phone] [facility] [address] Branch 2021-10-27 2021-10-27 Hospital RoyceMAYORUTHANN [id number] Univers 05:30:00 11:13:00 Encounter Chris POPE 350.1.13.10 ity of [facility] 4.2.7.2.686 Alli as [phone] [facility] 104 Branch 2021-10-27 2021-10-27 Outpatient [facility] SUU [id number] Univers 05:30:00 11:13:[address] of [facility] 2021-10-27 2021-10-27 Surgery RUTHANN Crane 1.2.840.114 [id number] Univers 07:15:00 09:32:00 Chris NIKO 350.1.13.10 it y of [facility] 4.2.7.2.686 Alli as [phone] [facility] [address] 2021-10-27 2021-10-27 Telephone [facility] 1.2.840.114 [id number] Univers 00:00:00 00:00:00 Chris [place] 350.1.13.10 i ty [place] [phone] [facility] [address] [facility] 2021-10-24 2021-10-24 Laboratory Only, Adc Test [facility] 1.2.840. 114 [id number] Univers 11:30:00 11:45:00 Only Chris Crane [place] 350.1.13.10 ity of [place] 4.2.7.2.[place] [phone] [facility] [address] [place] 2021-10-24 2021-10-24 Outpatient R ROYCE [facility] [id number] Univers 11:30:00 11:30:00 CHRIS ity [facility] 2021-10-19 2021-10-19 [facility] 1.2.840.114 [id number] Univers 00:00:00 00:00:00 Chris [place] 350.1.13.10 i ty of [facility] 4.2.7.2.[place] [id number] Wa dicmi NAL [address] [facility] 2021-10-16 2021-10-16 Telephone [facility] 1.2.840.114 [id number] Univers 00:00:00 00:00:00 Chris [place] 350.1.13.10 i ty of [facility] 4.2.7.2.[place] [id number] Wa dical NAL [address] [facility] 2021-10-14 2021-10-14 [facility] 1.2.745.591 [id number] Univers 00:00:00 00:00:00 Jeanna LUNDY 350.1.13.10 ity [place] 4.[place].7.2.[place] [phone] Wa dical NAL [address] [facility] 2021-10-13 2021-10-13 Out[facility] [id number] Univers 11:26:00 16:22:[address] of [facility] 2021-10-13 2021-10-13 Hospital RUTHANN Crane 1.2.240.931 [id number] Univers 11:26:00 16:22:00 Encounter Chris NIKO 350.1.13.10 ity of [facility] 4.2.7.2.686 Alli as [id number] [facility] [address] 2021-10-13 2021-10-13 Surgery RUTHANN Crane 1.2.840.114 [id number] Univers 12:50:00 14:52:00 Chris NIKO 350.1.13.10 it y of [facility] [id number] Alli as [phone] [facility] [address] 2021-10-12 2021-10-12 [facility] [id number] [id number] Univers 09:12:54 23:59:00 Encounter Jeanna LUNDY [id number] ity of [place] 4.2.7.2.686 [facility] [id number] [facility] [address] 2021-10-12 2021-10-12 Laboratory Only, Adc Test [facility] 1.2.840. 114 [id number] [facility] 16:00:00 16:15:00 Only Kyle Stanley [id number] [place]2.[place] [id number] [facility] [address] 2021-10-12 2021-10-12 Outpatient R JADEN [facility] [id number] [facility] 16:00:00 16:00:00 KYLE contreras [facility] 2021-10-12 2021-10-12 Outpatient R JADEN [facility] [id number] [facility] 16:00:00 16:00:00 KYLE contreras [facility] 2021-10-12 2021-10-12 Sewing Line Baler Julito Vazquez Lab Main [facility] 1.2.8 40.114 [id number] [facility] 11:15:00 11:30:00 Visit Jeanna Markham 350.1.13.10 ity of [place] [phone] Wa dical NAL [address] [facility] 2021-10-12 2021-10-12 Office [facility] 1.2.840.114 [id number] Univers 08:00:00 08:57:20 Visit Jeanna LUNDY 350.1.13.10 ity [facility] 4.2.7.2.[place] [phone] Wa dical NAL [address] [facility] 2021-10-12 2021-10-12 Letter Rashi [facility] 1.2.840.114 [id number] Univers 00:00:00 00:00:00 (Out) Jeanna LUNDY 350.1.13.10 ity [facility] 4.2.7.2.[place] [phone] Wa dical NAL [address] [facility] 2021-10-12 2021-10-12 Orders Doctor KEDAR 1.2.840.114 [id number] Univers 00:00:00 00:00:00 Only Unassigned, NIKO 350.1.13.10 ity of [place] [facility] 4.2.7.2.686 Alli as [phone] [address] 2021-10-12 2021-10-12 Prep For Rashi [facility] 1.2.840.114 [id number] Univers 00:00:00 00:00:00 Surgery Jeanna LUNDY 350.1.13.10 it[place] of [place] [phone] Wa dical NAL [address] [facility] 2021-10-12 2021-10-12 Case Gramm, [facility] 1.2.840.114 [id number] Univers 00:00:00 00:00:00 Management Jeanna LUNDY 350.1.13.10 [place] of [place] [phone] Wa dic[address] 2021-10-12 2021-10-12 Telephone Rashi, [facility] 1.2.395.906 [id number] Univers 00:00:00 00:00:00 Jeanna LUNDY 350.1.13.10 [place] of [place] [phone] [address] 2021-10-12 2021-10-12 Telephone Joey KEDAR 1.2.054.790 [id number] Univers 00:00:00 00:00:00 Jason POPE 350.1.13.10 ity of [facility] 4.2.7.2.686 Alli as [phone] [address] 2021-10-09 2021-10-09 Outpatient R CECILE KEITA [facility] [id number] Univers 10:30:00 10:30:00 CECILE KEITA [facility] 2021-10-09 2021-10-09 Outpatient R CECILE KEITA [facility] [id number] Univers 10:30:00 10:30:00 CECILE KEITA [facility] 2021-10-09 2021-10-09 Outpatient R CECILE KEITA [facility] [id number] Univers 10:30:00 10:30:00 CECILE KEITA [facility] 2021-10-09 2021-10-09 Outpatient R CECILE KEITA [facility] [id number] Univers 10:30:00 10:30:00 CECILE KEITA [facility] 2021-10-05 2021-10-05 Sewing Line Baler 2, Adc Lab [facility] 1.2.840.114 [id number] Univers 10:15:00 10:30:00 Visit Chris Crane 350.1.13.10 it[place] of [place] [phone] Wa dical NAL [address] [facility] 2021-10-05 2021-10-05 Out[facility] [id number] Univers 09:00:00 10:00:16 CHRIS ity [facility] 2021-10-05 2021-10-05 [facility] 1.2.840.114 [id number] Univers 09:00:00 10:00:16 Visit Chris LUNDY 350.1.13.10 i ty of [place] [phone] Wa dical NAL [address] [facility] 2021-10-05 2021-10-05 Outpatient [facility] [id number] Univers 09:00:00 10:00:16 CHRIS ity [facility] 2021-10-05 2021-10-05 Letter [facility] 1.2.840.114 [id number] Univers 00:00:00 00:00:00 (Out) Chris LUNDY 350.1.13.10 i ty of [place].2.[place] [phone] Wa dical [facility] 2021-09-30 2021-09-30 Orders Doctor KEDAR 1.2.840.114 [id number] Univers 00:00:00 00:00:00 Only Unassigned, NIKO 350.1.13.10 ity of [place] [facility] 4.2.7.2.686 Alli as [phone] [address] 2021-09-29 2021-09-29 Outpatient R NORA PEACOCK [facility] [id number] Univers 13:30:00 13:30:00 NORA PEACOCK [facility] 2021-09-29 2021-09-29 Emergency X [facility] ERT [id number] Univers 06:54:00 11:22:00 NATALYA contreras [facility] 2021-09-29 2021-09-29 Emergency [facility] 1.2.840.114 [id number] Univers 06:54:00 11:22:00 Natalya LUNDY 350.1.13.10 ity [facility] 4.2.7.2.686 [facility] [phone] [facility] [address] 2021-09-29 2021-09-29 (TEL) STLMLC STLMLC [id number] Co mmon 00:00:00 00:00:00 [facility] 2021-09-29 2021-09-29 Orders Doctor KEDAR 1.2.840.114 [id number] [facility] 00:00:00 00:00:00 Only Unassigned, NIKO 350.1.13.10 ity [facility] 4.2.7.2.686 [facility] [phone] [facility] [address] 2021-09-23 2021-09-23 (TEL) STLMLC STLMLC [id number] Co mmon 00:00:00 00:00:00 [facility] 2021-09-22 2021-09-22 (TEL) STLMLC STLMLC [id number] Co mmon 00:00:00 00:00:00 [facility] 2021-09-22 2021-09-22 OFFICE STLMLC STLMLC [id number] Co mmon 00:00:00 00:00:00 VISIT EST Spir it PT LEVEL 3 - [facility] 2021-09-21 2021-09-21 Outpatient [facility] [id number] [place] 08:39:13 08:39:13 [facility] 2021-09-21 2021-09-21 (TEL) STLMLC STLMLC [id number] Co mmon 00:00:00 00:00:00 [facility] 2021-09-18 2021-09-18 Outpatient Katie VELIZ [facility] [id number] [facility] 11:30:00 11:30:00 KELBY carballoy [facility] 2021-09-17 2021-09-17 Telephone iNlda Serrano [facility] 1.2.840. 114 [id number] [place] 00:00:00 00:00:00 Nilda Serrano [facility] 350.1.13.58 Health POCASSET 2 [id number] 6 2021-09-16 2021-09-16 Telephone VERONICA Velez 6400 1.2.840.114 [id number] [place] 00:00:00 00:00:00 Karmen GALE 350.1.13.58 Health [id number] 0 2021-08-21 2021-08-21 Outpatient [facility] [id number] Univers 10:30:00 11:04:23 [facility] 2021-08-21 2021-08-21 Office [facility] 1.2.840.114 [id number] Univers 10:30:00 11:00:00 Visit Kelby LUNDY 350.1.13.10 i Tabatha 4.2.7.2.686 Allialphonso kayode PROFESSIO [phone] Wa dical NAL 0[address] [facility] 2021-08-21 2021-08-21 Outpatient R HASMUKH [facility] [id number] Univers 10:30:00 10:30:00 [facility] 2021-08-21 2021-08-21 Outpatient Katie [facility] [id number] Univers 10:30:00 10:30:00 [facility] 2021-08-10 2021-08-10 Outpatient [facility] [id number] Univers 15:20:00 15:20:00 [facility] 2021-08-10 2021-08-10 Outpatient R MARGOT [facility] [id number] Univers 15:20:00 15:20:00 [facility] 2021-08-05 2021-08-05 Outpatient CECILE RODARTE [facility] [id number] Univers 09:00:00 10:19:52 CECILE KEITA [facility] 2021-08-05 2021-08-05 Office [facility] 1.2.840.114 [id number] Univers 09:00:00 10:19:52 Visit Cecile NAJERA 350.1.13.10 ity of [place].2.[place] [phone] [address] [facility] 2021-07-27 2021-07-27 Telephone [facility] 1.2.840.114 [id number] Univers 00:00:00 00:00:00 [facility] 350.1.13.10 it y of [place].2.[place] [phone] [address] OFFICE BUILDING 2021-07-24 2021-07-24 Outpatient R [facility] [id number] Univers 10:30:00 12:01:02 [facility] 2021-07-24 2021-07-24 Office [facility] 1.2.840.114 [id number] Univers 10:30:00 12:01:02 Visit [facility] 350.1.13.10 i ty of [place] 4.2.7.2.686 [place] [facility] [phone] Wa dical [address] 2021-07-24 2021-07-24 Outpatient R [facility] [id number] Univers 10:30:00 10:30:00 [facility] 2021-07-21 2021-07-21 Refill Julio [facility] 1.2.111.699 [id number] Univers 00:00:00 00:00:00 Ifeoma HEALTH 350.1.13.10 it y of [place]GICAL 4.2.7.2.686 Alli as SPECIALTI [phone] Wa dical ES 370 [facility] 2021-07-20 2021-07-20 Office Urodynamics, Clc Bls Urogyn [facility] 1.2.840.114 [id number] Univers 09:04:35 10:09:39 Visit Elizabeth Moreau HEALTH 350.1.13. 10 it[place] of [place].2.686 [place] [phone] [address] OFFICE BUILDING 2021-07-20 2021-07-20 Outpatient [facility] [id number] Univers 09:00:00 10:09:39 ELIZABETH contreras [facility] 2021-07-20 2021-07-20 Outpatient R [facility] [id number] Univers 09:00:00 10:09:39 ELIZABETH contreras [facility] 2021-07-20 2021-07-20 Orders Doctor THACKER 1.2.840.114 [id number] Univers 00:00:00 00:00:00 Only Unassigned, NIKO 350.1.13.10 [facility] 4.2.7.2.686 Alli as [phone] [address] 2021-07-01 2021-07-01 (TEL) STLMLC STLMLC [id number] Co mmon 00:00:00 00:00:00 [facility] 2021-06-30 2021-06-30 [facility] [id number] Co mmon 00:00:00 00:00:00 VISIT [facility] 2021-06-18 2021-06-18 Outpatient R [facility] [id number] Univers 10:30:00 10:30:00 KELBY stevie [facility] 2021-06-18 2021-06-18 Letter [facility] 1.2.840.114 [id number] Univers 00:00:00 00:00:00 (Out) [employer] 350.1.13.10 it y of [place].2.686 [place] [phone] [place] [id number] [place] OFFICE BUILDING 2021-06-05 2021-06-05 Outpatient [facility] [id number] Univers 10:00:00 11:11:01 ERICK stevie [facility] 2021-06-05 2021-06-05 Office [facility] 1.2.879.564 [id number] Univers 09:59:23 11:11:01 Visit Erick Dillard ROXIMITY 350.1.13.10 it y of [place] 4.2.7.2.686 Alli as TRAM?BLEA [phone] [address] MEDICAL OFFICE BUILDING 2021-06-05 2021-06-05 Outpatient R HODAN [facility] [id number] Univers 10:00:00 10:00:00 ERICK stevie [facility] 2021-06-05 2021-06-05 Orders Doctor KEDAR 1.2.840.114 [id number] Univers 00:00:00 00:00:00 Only Unassigned, NIKO 350.1.13.10 ity of [place] [facility] 4.2.7.2.686 Alli as [phone] [address] 2021-05-18 2021-05-18 Orders Doctor KEDAR 1.2.840.114 [id number] Univers 00:00:00 00:00:00 Only Unassigned, NIKO 350.1.13.10 ity of [place] [facility] 4.2.7.2.686 Alli as [phone] [address] 2021-05-05 2021-05-05 (TEL) STLMLC STLMLC [id number] Co mmon 00:00:00 00:00:00 [facility] 2021-04-24 2021-04-24 Outpatient R ANGEL [facility] [id number] Univers 10:00:00 10:00:00 JARROD [facility] 2021-03-30 2021-03-30 Outpatient R [facility] [id number] Univers 10:00:00 10:00:00 [facility] 2021-02-27 2021-02-27 Outpatient R [facility] [id number] Univers 10:00:00 10:00:00 [facility] 2021-02-23 2021-02-23 Outpatient STLMLC STLMLC [id number] Common 00:00:00 00:00:00 [facility] 2021-02-23 2021-02-23 Outpatient STLMLC STLMLC [id number] Common 00:00:00 00:00:00 [facility] 2021-01-26 2021-01-26 Outpatient STLMLC STLMLC [id number] Common 00:00:00 00:00:00 [facility] 2021-01-23 2021-01-23 Office [facility] 1.2.840.114 [id number] 08:50:29 10:03:02 Visit [facility] 350.1.13.10 Clear 4.2.7.2.686 [place] [phone] [facility] Office Building 2021-01-23 2021-01-23 Office [facility] 1.2.840.114 [id number] Univers 08:50:29 10:03:02 Visit [facility] 350.1.13.10 ity of [place] 4.2.7.2.686 [facility] Nolan [phone] [address] Office Building 2021-01-23 2021-01-23 Outpatient R [facility] [id number] [facility] 08:30:00 08:30:00 [facility] 2021-01-23 2021-01-23 Orders Doctor KEDAR 1.2.840.114 [id number] 00:00:00 00:00:00 Only Unassigned, NIKO 350.1.13.10 [place] [facility] 4.2.7.2.686 [id number] 009 2021-01-23 2021-01-23 Orders Doctor KEDAR 1.2.840.114 [id number] Univers 00:00:00 00:00:00 Only Unassigned, NIKO 350.1.13.10 ity of [place] [facility] 4.2.7.2.686 Alli [phone] [facility] [address] 2021-01-15 2021-01-15 Outpatient [facility] [id number] Common 00:00:00 00:00:00 [facility] 2021-01-11 2021-01-11 Telephone [facility] 1.2.840.114 [id number] Univers 00:00:00 00:00:00 Brooke MULTISPEC 350.1.13.10 ity of [place] 4.2.7.2.686 [facility] [id number] [facility] AND [place] [address] [address] [facility] 2021-01-07 2021-01-07 Office Nidhi [facility] 1.2.840.114 [id number] Univers 09:07:55 10:07:55 Visit Brooke CISNEROSPEC 350.1.13.10 ity of [place] 4.2.7.2.686 [place] [phone] [facility] AND [facility] [address] [facility] 2021-01-07 2021-01-07 Outpatient [facility] [id number] Univers 09:15:00 09:15:00 BROOKE harisstevie [facility] 2021-01-06 2021-01-06 Outpatient STLMLC STLC [id number] Common 00:00:00 00:00:00 [facility] 2020-12-12 2020-12-12 Office [facility] 1.2.381.746 [id number] Univers 15:02:22 16:06:02 Visit Erick Lundy 350.1.13.10 i ty of [place] 4.2.7.2.686 [place] [phone] Wa dical nal [address] Building 2020-12-12 2020-12-12 Outpatient [facility] [id number] Univers 15:00:00 15:00:00 ERICK stevie [facility] 2020-12-04 2020-12-04 Orders Doctor KEDAR 1.2.840.114 [id number] Univers 00:00:00 00:00:00 Only Unassigned, NIKO 350.1.13.10 ity of [place] [facility] 4.2.7.2.686 Alli as [phone] [facility] [address] 2020-11-25 2020-11-25 Outpatient STLMLC STLMLC [id number] Common 00:00:00 00:00:00 [facility] 2020-10-23 2020-10-23 Patient Jimmy [facility] 1.2.840.114 [id number] Univers 00:00:00 00:00:00 Outreach Keyon MARTINEZ 350.1.13.10 i ty of Jan [facility] 4.2.7.2.686 [place] [phone] Wa dical [address] 2020-09-11 2020-09-11 Outpatient STLMLC STLMLC [id number] Common 00:00:00 00:00:00 [facility] 2020-09-11 2020-09-11 Outpatient STLMLC STLMLC [id number] Common 00:00:00 00:00:00 [facility] 2020-08-20 2020-08-20 Orders Doctor THACKER 1.2.840.114 [id number] Univers 00:00:00 00:00:00 Only Unassigned, NIKO 350.1.13.10 ity of [facility] 4.2.7.2.686 [facility] [phone] [facility] calderon [address] 2020-08-14 2020-08-14 Outpatient STLMLC STLMLC [id number] Common 00:00:00 00:00:00 [facility] 2020-07-16 2020-07-16 Outpatient STLMLC STLMLC [id number] Common 00:00:00 00:00:00 [facility] 2020-07-08 2020-07-09 Emergency X SHELBYELIZABETHNILO FLWILBUR ERT [id number] Univers 23:13:00 05:01:00 JERMAINE ity [facility] 2020-07-08 2020-07-09 Emergency Razia Grant [facility] 1.2.840. 114 [id number] Univers 23:13:00 05:01:00 Razia Grant [place] 350.1.13.10 ity of [place] 4.2.7.2.686 [facility] [phone] [facility] calderon [address] 2020-03-26 2020-03-26 Outpatient [facility] [id number] Common 15:00:00 15:00:[address] [facility] 2020-03-24 2020-03-24 Outpatient [facility] [id number] Common 08:34:00 08:34:[address] Sp[address] [facility] 2020-03-18 2020-03-18 Outpatient [facility] [id number] Common 16:45:00 16:45:[address] [facility] 2020-03-18 2020-03-18 Outpatient [facility] [id number] Common 15:30:00 15:30:[address] [facility] 2020-03-05 2020-03-05 Outpatient Marta [facility] [id number] Common 10:30:00 10:30:[address] Sp[address] [facility] 2020-01-25 2020-01-25 Office [facility] 1.2.247.092 [id number] Univers 09:00:00 09:30:00 Visit Erick Lundy 350.1.13.10 i ty antonio RuggieroKincaid 4.2.7.2.686 [facility] [phone] Me dical nal [facility] 2020-01-25 2020-01-25 Outpatient [facility] [id number] Univers 09:00:00 09:00:00 ERICK contreras [facility] 2019-12-20 2019-12-20 Bg [facility] 1.2.840.114 [id number] Univers 00:00:00 00:00:00 Management Diana CISNEROSPEC 350.1.13.10 ity of [place] 4.2.7.2.686 [facility] [place] [phone] [facility] AND [address] DIABETES CLINIC 2019-12-19 2019-12-19 Outpatient [facility] [id number] Univers 14:15:00 14:15:00 JESSICA contreras o f [facility] 2019-12-18 2019-12-18 Outpatient Katie [facility] [id number] Univers 13:45:00 13:45:00 NILS contreras [facility] 2019-11-13 2019-11-13 Nazario [facility] 1.2.579.798 [id number] Univers 00:00:00 00:00:00 [facility] 350.1.13.10 it y of Surgical 4.2.7.2.686 Alli as Special [phone] Me dical es [address] [place] 2019-10-22 2019-10-22 Urgent Ifeoma Harrell [facility] 1.2.840.11 [id number] Univers 18:16:28 18:31:28 Care Unknown, Attending Health 350.1.13.10 ity of Surgical 4.2.7.2.686 Alli as Specialti [id number] Wa dical es [address] [place] 2019-10-22 2019-10-22 Outpatient R DIXON [facility] [id number] Univers 07:40:00 07:40:00 MATTHEW stevie [facility] 2019-07-25 2019-07-25 Outpatient R HODAN, [facility] [id number] Univers 15:59:42 23:59:00 ERICK contreras [facility] 2019-04-04 2019-04-06 Phone nullFlavo MNA [id number] Memoria 17:21:53 04:59:59 Message r Neurosurger 05 l y [facility] 2019-04-04 2019-04-06 Phone nullFlavo MNA [id number] Memoria 17:21:53 04:59:59 Message r Neurosurger 05 l y [facility] 2019-04-04 2019-04-05 Outpatient MHMISCHER MHMISCHER [id number] 12:21:53 23:59:59 2018-12-21 2018-12-23 Phone nullFlavo MNA [id number] Memoria 15:05:32 04:59:59 Message r Neurosurger 04 l y [facility] 2018-12-21 2018-12-23 Phone nullFlavo MNA [id number] Memoria 15:05:32 04:59:59 Message r Neurosurger 04 l y [facility] 2018-12-21 2018-12-22 Outpatient MHMISCHER MHMISCHER [id number] 10:05:32 23:59:59 2018-12-08 2018-12-10 Phone nullFlavo MNA [id number] Memoria 18:27:20 04:59:59 Message r Neurosurger 03 l y [facility] 2018-12-08 2018-12-10 Phone nullFlavo MNA [id number] Memoria 18:27:20 04:59:59 Message r Neurosurger 03 l y [facility] 2018-12-08 2018-12-09 Outpatient MHMISCHER MHMISCHER [id number] 13:27:20 23:59:59 03 2018-12-07 2018-12-08 Outpatient nullFlavo MNA [id number] Memoria 16:15:00 04:59:59 r Neurosurger 01 l y [facility] 2018-12-07 2018-12-08 Outpatient nullFlavo MNA [id number] Memoria 16:15:00 04:59:59 r Neurosurger 01 l y [facility] 2018-12-07 2018-12-08 Outpt Diag nullFlavo [facility] [id number] Memoria 15:09:00 04:59:00 Services r Outpatient 01 [facility] 2018-12-07 2018-12-08 Outpt Diag nullFlavo [facility] [id number] Memoria 15:09:00 04:59:00 Services r Outpatient 01 [facility] 2018-12-07 2018-12-07 Outpatient VISIT, MHMISCHER MHMISCHER [id number] 11:15:00 23:59:59 TRAUMA 01 CLINIC 2018-12-07 2018-12-07 Outpatient Aravindcheryl, [facility] [id number] 10:09:00 23:59:00 Edis Mckeon 2018-12-07 2018-12-07 Outpatient MHIE MHIE [id number] Memoria 11:15:00 11:15:00 01 [facility] 2018-10-31 2018-11-02 Phone nullFlavo MNA [id number] Memoria 17:52:00 04:59:59 Message r Neurosurger 02 l y [facility] 2018-10-31 2018-11-02 Phone nullFlavo MNA [id number] Memoria 17:52:00 04:59:59 Message r Neurosurger 02 l y [facility] 2018-10-31 2018-11-01 Outpatient MHMISCHER MHMISCHER [id number] 12:52:00 23:59:59 2018-10-27 2018-10-29 Phone nullFlavo MNA [id number] Memoria 14:49:00 04:59:59 Message r Neurosurger 01 l y [facility] 2018-10-27 2018-10-29 Phone nullFlavo MNA [id number] Memoria 14:49:00 04:59:59 Message r Neurosurger 01 l y [facility] 2018-10-27 2018-10-28 Outpatient MHMISCHER MISCHER [id number] 09:49:00 23:59:59 2018-10-26 2018-10-27 Outpatient nullFlavo MNA [id number] Memoria 17:15:00 04:59:59 r Neurosurger 00 l y [facility] 2018-10-26 2018-10-27 Outpatient nullFlavo MNA [id number] Memoria 17:15:00 04:59:59 r Neurosurger 00 l y [facility] 2018-10-26 2018-10-26 Outpatient VISIT, MHMISCHER MISCHER [id number] 12:15:00 23:59:59 TRAUMA 00 CLINIC 2018-10-26 2018-10-26 Outpatient MHIE MHIE [id number] Memoria 12:15:00 12:15:00 00 [facility] 2018-10-24 2018-10-25 Outpt Diag nullFlavo [facility] [id number] Memoria 13:26:00 04:59:00 Services r Outpatient 00 l Imaging [facility] 2018-10-24 2018-10-25 Outpt Diag nullFlavo [facility] [id number] Memoria 13:26:00 04:59:00 Services r Outpatient 00 l Imaging [facility] 2018-10-24 2018-10-24 Outpatient [facility] OIP [facility] [id number] 08:26:00 23:59:00 Edis Seiji 00 2018-10-17 2018-10-19 Phone nullFlavo MNA [id number] Memoria 15:08:00 04:59:59 Message r Neurosurger 00 l y [facility] 2018-10-17 2018-10-19 Phone nullFlavo MNA [id number] Memoria 15:08:00 04:59:59 Message r Neurosurger 00 l y [facility] 2018-10-17 2018-10-18 [id number] 10:08:00 23:59:59 00 2018-10-08 2018-10-11 Inpatient [facility] [id number] Memoria 14:37:00 21:18:00 r Carlos Pisano [facility] 2018-10-08 2018-10-11 Inpatient [facility] [id number] Memoria 14:37:00 21:18:00 katie Pisano [facility] 2018-10-08 2018-10-11 Outpatient [facility] [id number] 08:37:00 15:18:00 Bryan Xiomy Norris Results Test Description Test Time Test Comments [...] 3267) clear Lab Interpretation (test code = 03014-3) Abnormal [facility] URINALYSIS, [id number] 19:47:00 Test Item Value Reference Range Interpretation [...] UROBILI (test code = 0.2 mg/dl 0.2-1 0) POCT U BILI (test code = 3261) negative Negative - Negative POCT U BLD (test code = 3257) negative Negative - Negative POCT U COLOR (test code = 3266) yellow POCT U APPEAR (test code = clear 3267) Lab Interpretation (test code = Abnormal 43469-1) [facility]11[facility]00 Test Item Value Reference Range Interpretation Comments Lymphocytes (test code = Lymphocytes) 28.7 20.0-40.0 [id number] 06:11:00 Test Item Value Reference Range Interpretation Comments Monocytes (test code = Monocytes) 9.5 2.0-12.0 [facility]akhvucCLZMDUZAHA0505-50-14 06:11:00 Test Item Value Reference Range Interpretation Comments Segs (test code = Segs) 58.7 45.0-75.0 [facility]KyaoiajKFHJHJLBQO4088-53-51 06:11:00 Test Item Value Reference Range Interpretation Comments Lymphocytes # (test code = Lymphocytes 2.6 1.0-5.5 #) [facility]BzbblyrHJYGYNJMIA3066-64-96 06:11:00 Test Item Value Reference Range Interpretation Comments Eosinophils # (test code 0.3 See_Comment [A utomated message] The = Eosinophils #) system whic h generated this result tra nsmitted reference range : <=0.5. The reference r kunal was not used to int erpret this result as normal/abnormal . [facility]entonRjtfoosRXSDMPRJNJ6195-50-37 06:11:00 Test Item Value Reference Range Interpretation Comments Basophils (test code = 0.2 See_Comment [Aut omated message] The Basophils) system which ge nerated this result tra nsmitted reference range : <=1.0. The reference r kunal was not used to int erpret this result as normal/abnormal . [facility]XbffgqnSBAGNJTVRV0894-42-25 06:11:00 Test Item Value Reference Range Interpretation Comments Neutrophils # (test code = Neutrophils 5.3 1.5-8.1 #) [facility]CojrkcmTVFUAGTKEZ9010-75-75 06:11:00 Test Item Value Reference Range Interpretation Comments Monocytes # (test code 0.9 See_Comment [Aut omated message] The = Monocytes #) system which generated this result tra nsmitted reference range : <=0.8. The reference r kunal was not used to int erpret this result as normal/abnormal . [facility]2019-03-06 06:11:00 Test Item Value Reference Range Interpretation Comments eGFR (test code = eGFR) 73 [facility]2019-03-06 06:11:00 Test Item Value Reference Range Interpretation Comments Glucose Lvl (test code = Glucose Lvl) 74 70-99 [facility]2019-03-06 06:11:00 Test Item Value Reference Range Interpretation Comments Creatinine Lvl (test code = Creatinine 0.93 0.50-1.40 Lvl) [facility]2019-03-06 06:11:00 Test Item Value Reference Range Interpretation Comments Sodium Lvl (test code = Sodium Lvl) 140 135-145 [facility]2019-03-06 06:11:00 Test Item Value Reference Range Interpretation Comments BUN (test code = BUN) 18 7-22 [facility]2019-03-06 06:11:00 Test Item Value Reference Range Interpretation Comments Calcium Lvl (test code = Calcium Lvl) 8.9 8.5-10.5 [facility]2019-03-06 06:11:00 Test Item Value Reference Range Interpretation Comments Potassium Lvl (test code = Potassium 3.9 3.5-5.1 Lvl) [facility]2019-03-06 06:11:00 Test Item Value Reference Range Interpretation Comments Chloride Lvl (test code = Chloride Lvl) 106 95-109 [facility]2019-03-06 06:11:00 Test Item Value Reference Range Interpretation Comments CO2 (test code = CO2) 26 24-32 [facility]2019-03-06 06:11:00 Test Item Value Reference Range Interpretation Comments AGAP (test code = AGAP) 11.9 10.0-20.0 [facility]NijuntyUJSNKWCWKQ5075-06-84 06:11:00 Test Item Value Reference Range Interpretation Comments WBC (test code = WBC) 9.0 3.7-10.4 [facility]entonKyvgmfsPJTGHESLFN5444-38-42 06:11:00 Test Item Value Reference Range Interpretation Comments Platelet (test code = Platelet) 319 133-450 [facility]entonGwocrgiEQTUHJSBHB4295-09-36 06:11:00 Test Item Value Reference Range Interpretation Comments MPV (test code = MPV) 8.7 7.4-10.4 [facility]CmewixhFFSGDCQKSG6451-72-78 06:11:00 Test Item Value Reference Range Interpretation Comments RDW (test code = RDW) 13.6 11.5-14.5 [facility]entonChumxvcWKRLHBJIQM6970-51-91 06:11:00 Test Item Value Reference Range Interpretation Comments MCHC (test code = MCHC) 33.2 32.0-36.0 [facility]RtwzmtgMBYAVDCTJV1540-65-22 06:11:00 Test Item Value Reference Range Interpretation Comments MCH (test code = MCH) 29.6 pg 27.0-31.0 [facility]entonTurctmvJCBLTGJKVM9082-09-58 06:11:00 Test Item Value Reference Range Interpretation Comments Hct (test code = Hct) 38.3 36.0-48.0 [facility]entonLiyoevjFAJNTMBNHW3216-94-05 06:11:00 Test Item Value Reference Range Interpretation Comments RBC (test code = RBC) 4.30 4.20-5.40 [facility]entonGwsxapdWFJDWPBLRL4214-35-44 06:11:00 Test Item Value Reference Range Interpretation Comments MCV (test code = MCV) 89.1 80.0-98.0 [facility]IcqgcelLXQZKBCTFS2434-48-56 06:11:00 Test Item Value Reference Range Interpretation Comments Hgb (test code = Hgb) 12.7 12.0-16.0 [facility]entonAozcurvKFRXKKNDYJ2571-25-52 06:11:00 Test Item Value Reference Range Interpretation Comments Eosinophils (test code = 2.9 See_Comment [A utomated message] The Eosinophils) system which ge nerated this result tra nsmitted reference range : <=4.0. The reference r kunal was not used to int erpret this result as normal/abnormal . [facility]entonZqfzcawPQYDQHQRPH1175-27-86 06:11:00 Test Item Value Reference Range Interpretation Comments Lymphocytes (test code = Lymphocytes) 28.7 20.0-40.0 [facility]NvvejwlEKBGDGWXBT3117-80-64 06:11:00 Test Item Value Reference Range Interpretation Comments Monocytes (test code = Monocytes) 9.5 2.0-12.0 [facility]XszprlzVHLLQWJQAB7455-91-60 06:11:00 Test Item Value Reference Range Interpretation Comments Segs (test code = Segs) 58.7 45.0-75.0 [facility]entonZpcupksKPFADLFONP6642-30-18 06:11:00 Test Item Value Reference Range Interpretation Comments Lymphocytes # (test code = Lymphocytes 2.6 1.0-5.5 #) [facility]entonFotyivsVGQZXXTUTU5021-66-74 06:11:00 Test Item Value Reference Range Interpretation Comments Eosinophils # (test code 0.3 See_Comment [A utomated message] The = Eosinophils #) system whic h generated this result tra nsmitted reference range : <=0.5. The reference r kunal was not used to int erpret this result as normal/abnormal . [facility]entonGxsxottPXMEPDIRSW1945-81-27 06:11:00 Test Item Value Reference Range Interpretation Comments Basophils (test code = 0.2 See_Comment [Aut omated message] The Basophils) system which ge nerated this result tra nsmitted reference range : <=1.0. The reference r kunal was not used to int erpret this result as normal/abnormal . [facility]entonFfoyxwiWOPCIYFDFB0771-14-15 06:11:00 Test Item Value Reference Range Interpretation Comments Neutrophils # (test code = Neutrophils 5.3 1.5-8.1 #) [facility]entonFungiapQZPEDQRQRQ7170-71-18 06:11:00 Test Item Value Reference Range Interpretation Comments Monocytes # (test code 0.9 See_Comment [Aut omated message] The = Monocytes #) system which generated this result tra nsmitted reference range : <=0.8. The reference r kunal was not used to int erpret this result as normal/abnormal . [facility]2019-03-06 06:11:00 Test Item Value Reference Range Interpretation Comments eGFR (test code = eGFR) 73 [facility]2019-03-06 06:11:00 Test Item Value Reference Range Interpretation Comments Glucose Lvl (test code = Glucose Lvl) 74 70-99 [facility]2019-03-06 06:11:00 Test Item Value Reference Range Interpretation Comments Creatinine Lvl (test code = Creatinine 0.93 0.50-1.40 Lvl) [facility]2019-03-06 06:11:00 Test Item Value Reference Range Interpretation Comments Sodium Lvl (test code = Sodium Lvl) 140 135-145 [facility]2019-03-06 06:11:00 Test Item Value Reference Range Interpretation Comments BUN (test code = BUN) 18 7-22 [facility]2019-03-06 06:11:00 Test Item Value Reference Range Interpretation Comments Calcium Lvl (test code = Calcium Lvl) 8.9 8.5-10.5 [facility]2019-03-06 06:11:00 Test Item Value Reference Range Interpretation Comments Potassium Lvl (test code = Potassium 3.9 3.5-5.1 Lvl) [facility]2019-03-06 06:11:00 Test Item Value Reference Range Interpretation Comments Chloride Lvl (test code = Chloride Lvl) 106 95-109 [facility]2019-03-06 06:11:00 Test Item Value Reference Range Interpretation Comments CO2 (test code = CO2) [facility]2019-03-06 06:11:00 Test Item Value Reference Range Interpretation Comments AGAP (test code = AGAP) 11.9 10.0-20.0 [facility]IpngithUYBRYAVESR1251-86-77 06:11:00 Test Item Value Reference Range Interpretation Comments WBC (test code = WBC) 9.0 3.7-10.4 [facility]2019-03-06 06:11:00 Test Item Value Reference Range Interpretation Comments Calcium Lvl (test code = Calcium Lvl) 8.9 8.5-10.5 [facility]2019-03-06 06:11:00 Test Item Value Reference Range Interpretation Comments Potassium Lvl (test code = Potassium 3.9 3.5-5.1 Lvl) [facility]2019-03-06 06:11:00 Test Item Value Reference Range Interpretation Comments Chloride Lvl (test code = Chloride Lvl) 106 95-109 [facility]2019-03-06 06:11:00 Test Item Value Reference Range Interpretation Comments CO2 (test code = CO2) [facility]2019-03-06 06:11:00 Test Item Value Reference Range Interpretation Comments AGAP (test code = AGAP) 11.9 10.0-20.0 [facility]WeitvldHXEBMGGXMR6923-98-66 06:11:00 Test Item Value Reference Range Interpretation Comments WBC (test code = WBC) 9.0 3.7-10.4 [facility]MbxvwypYRECNDTONV1841-64-87 06:11:00 Test Item Value Reference Range Interpretation Comments Platelet (test code = Platelet) 109 092-262 [facility]NzekmlgGVDCIEDARE3328-70-33 06:11:00 Test Item Value Reference Range Interpretation Comments MPV (test code = MPV) 8.7 7.4-10.4 [facility]OeehbspXGIBBPWOFS0957-82-43 06:11:00 Test Item Value Reference Range Interpretation Comments RDW (test code = RDW) 13.6 11.5-14.5 [facility]QmaddtjWPKQQVBBWY2122-69-94 06:11:00 Test Item Value Reference Range Interpretation Comments Platelet (test code = Platelet) 973 770-081 [facility]TywlofmRSWWGEVZMO4197-63-96 06:11:00 Test Item Value Reference Range Interpretation Comments MCHC (test code = MCHC) 33.2 32.0-36.0 [facility]NtpoeaePXAYMJASVZ1035-67-87 06:11:00 Test Item Value Reference Range Interpretation Comments MCH (test code = MCH) 29.6 pg 27.0-31.0 [facility]QcatzziOPSNHWXFLX9936-36-50 06:11:00 Test Item Value Reference Range Interpretation Comments Hct (test code = Hct) 38.3 36.0-48.0 [facility]UnbmpyeLSFXWQFJKJ0823-28-93 06:11:00 Test Item Value Reference Range Interpretation Comments RBC (test code = RBC) 4.30 4.20-5.40 [facility]NiaycawPGHBUZCXBM7774-46-16 06:11:00 Test Item Value Reference Range Interpretation Comments MCV (test code = MCV) 89.1 80.0-98.0 [facility]JmjzodsQTYWMOJUES5014-23-53 06:11:00 Test Item Value Reference Range Interpretation Comments Hgb (test code = Hgb) 12.7 12.0-16.0 [facility]entonEskiygsZRTOFZQWCR2859-84-90 06:11:00 Test Item Value Reference Range Interpretation Comments Eosinophils (test code = 2.9 See_Comment [A utomated message] The Eosinophils) system which ge nerated this result tra nsmitted reference range : <=4.0. The reference r kunal was not used to int erpret this result as normal/abnormal . [facility]SyfkvimDUGGBJLXFZ8952-06-99 06:11:00 Test Item Value Reference Range Interpretation Comments Lymphocytes (test code = Lymphocytes) 28.7 20.0-40.0 [facility]DrpbdviDIXEXWGIMB5962-67-94 06:11:00 Test Item Value Reference Range Interpretation Comments Monocytes (test code = Monocytes) 9.5 2.0-12.0 [facility]EeupbyrSCDCKMUSWG8483-22-51 06:11:00 Test Item Value Reference Range Interpretation Comments Segs (test code = Segs) 58.7 45.0-75.0 [facility]OjyylhpNIYQSKGDWC9347-71-83 06:11:00 Test Item Value Reference Range Interpretation Comments MPV (test code = MPV) 8.7 7.4-10.4 [facility]KlywqodGSQFXAFGSV0498-09-23 06:11:00 Test Item Value Reference Range Interpretation Comments Lymphocytes # (test code = Lymphocytes 2.6 1.0-5.5 #) [facility]MwskiniPAEEYULBYB9664-72-71 06:11:00 Test Item Value Reference Range Interpretation Comments Eosinophils # (test code 0.3 See_Comment [A utomated message] The = Eosinophils #) system whic h generated this result tra nsmitted reference range : <=0.5. The reference r kunal was not used to int erpret this result as normal/abnormal . [facility]entonYwwkndjWROHPBMMPT4838-76-64 06:11:00 Test Item Value Reference Range Interpretation Comments Basophils (test code = 0.2 See_Comment [Aut omated message] The Basophils) system which ge nerated this result tra nsmitted reference range : <=1.0. The reference r kunal was not used to int erpret this result as normal/abnormal . [facility]entonDgqzcdtDOUXYIOKHP4922-95-30 06:11:00 Test Item Value Reference Range Interpretation Comments Neutrophils # (test code = Neutrophils 5.3 1.5-8.1 #) [facility]WeacdwyDKFPVWVUTH7516-94-75 06:11:00 Test Item Value Reference Range Interpretation Comments Monocytes # (test code 0.9 See_Comment [Aut omated message] The = Monocytes #) system which generated this result tra nsmitted reference range : <=0.8. The reference r kunal was not used to int erpret this result as normal/abnormal . [facility]2019-03-06 06:11:00 Test Item Value Reference Range Interpretation Comments eGFR (test code = eGFR) 73 [place] 485549-03-06 06:11:00 Test Item Value Reference Range Interpretation Comments Glucose Lvl (test code = Glucose Lvl) 74 70-99 [facility]2019-03-06 06:11:00 Test Item Value Reference Range Interpretation Comments Creatinine Lvl (test code = Creatinine 0.93 0.50-1.40 Lvl) [facility]2019-03-06 06:11:00 Test Item Value Reference Range Interpretation Comments Sodium Lvl (test code = Sodium Lvl) 140 135-145 [facility]2019-03-06 06:11:00 Test Item Value Reference Range Interpretation Comments BUN (test code = BUN) 18 7-22 [facility]FseoajfMSUCJATBQZ6199-27-82 06:11:00 Test Item Value Reference Range Interpretation Comments RDW (test code = RDW) 13.6 11.5-14.5 [facility]XafbtbhTWTHHYVAAS8157-47-10 06:11:00 Test Item Value Reference Range Interpretation Comments MCHC (test code = MCHC) 33.2 32.0-36.0 [facility]entonSarhkpgXDVYVEKQGW3916-28-80 06:11:00 Test Item Value Reference Range Interpretation Comments MCH (test code = MCH) 29.6 pg 27.0-31.0 [facility]OpdecagZKLPGYNXHK9583-98-75 06:11:00 Test Item Value Reference Range Interpretation Comments Hct (test code = Hct) 38.3 36.0-48.0 [facility]entonRhrnqgnOWKLJTCULM1832-19-60 06:11:00 Test Item Value Reference Range Interpretation Comments RBC (test code = RBC) 4.30 4.20-5.40 [facility]entonAyodrdpPBYJBQURHY7812-39-55 06:11:00 Test Item Value Reference Range Interpretation Comments MCV (test code = MCV) 89.1 80.0-98.0 [place] [address]-03-06 06:11:00 Test Item Value Reference Range Interpretation Comments Hgb (test code = Hgb) 12.7 12.0-16.0 [facility]entonNbeqhvhGPFRBSGWNO0851-85-80 06:11:00 Test Item Value Reference Range Interpretation Comments Eosinophils (test code = 2.9 See_Comment [A utomated message] The Eosinophils) system which ge nerated this result tra nsmitted reference range : <=4.0. The reference r kunal was not used to int erpret this result as normal/abnormal . [facility]entonMeaxpanYPNQLJMQIH5804-70-80 06:11:00 Test Item Value Reference Range Interpretation Comments Lymphocytes (test code = Lymphocytes) 28.7 20.0-40.0 [facility]entonCaksnnaKVTVQXFHQQ2043-24-85 06:11:00 Test Item Value Reference Range Interpretation Comments Monocytes (test code = Monocytes) 9.5 2.0-12.0 [facility]entonLtlcxwkGEJPBRHDPH9729-07-11 06:11:00 Test Item Value Reference Range Interpretation Comments Segs (test code = Segs) 58.7 45.0-75.0 [facility]entonSokqvdrQMVPGLELHG3271-06-04 06:11:00 Test Item Value Reference Range Interpretation Comments Lymphocytes # (test code = Lymphocytes 2.6 1.0-5.5 #) [facility]QreparuAZUHPXIQFH5205-54-66 06:11:00 Test Item Value Reference Range Interpretation Comments Eosinophils # (test code 0.3 See_Comment [A utomated message] The = Eosinophils #) system [facility] h generated this result tra nsmitted reference range : <=0.5. The reference r kunal was not used to int erpret this result as normal/abnormal . [facility]entonBkyqbcjHSAUFYUBVX3387-84-61 06:11:00 Test Item Value Reference Range Interpretation Comments Basophils (test code = 0.2 See_Comment [Aut omated message] The Basophils) system which ge nerated this result tra nsmitted reference range : <=1.0. The reference r kunal was not used to int erpret this result as normal/abnormal . [facility]entonAqmkubaPDRMUALFXS6028-09-71 06:11:00 Test Item Value Reference Range Interpretation Comments Neutrophils # (test code = Neutrophils 5.3 1.5-8.1 #) [facility]entonKwcbytvUODMGVSRYR0060-31-26 06:11:00 Test Item Value Reference Range Interpretation Comments Monocytes # (test code 0.9 See_Comment [Aut omated message] The = Monocytes #) system which generated this result tra nsmitted reference range : <=0.8. The reference r kunal was not used to int erpret this result as normal/abnormal . [facility]2019-03-06 06:11:00 Test Item Value Reference Range Interpretation Comments eGFR (test code = eGFR) 73 [facility]2019-03-06 06:11:00 Test Item Value Reference Range Interpretation Comments Glucose Lvl (test code = Glucose Lvl) 74 70-99 [facility]2019-03-06 06:11:00 Test Item Value Reference Range Interpretation Comments Creatinine Lvl (test code = Creatinine 0.93 0.50-1.40 Lvl) [facility]2019-03-06 06:11:00 Test Item Value Reference Range Interpretation Comments Sodium Lvl (test code = Sodium Lvl) 140 135-145 [facility]2019-03-06 06:11:00 Test Item Value Reference Range Interpretation Comments BUN (test code = BUN) 18 7-22 [facility]2019-03-06 06:11:00 Test Item Value Reference Range Interpretation Comments Calcium Lvl (test code = Calcium Lvl) 8.9 8.5-10.5 [facility]2019-03-06 06:11:00 Test Item Value Reference Range Interpretation Comments Potassium Lvl (test code = Potassium 3.9 3.5-5.1 Lvl) [facility]2019-03-06 06:11:00 Test Item Value Reference Range Interpretation Comments Chloride Lvl (test code = Chloride Lvl) 106 95-109 [facility]2019-03-06 06:11:00 Test Item Value Reference Range Interpretation Comments CO2 (test code = CO2) 26 24-32 [facility]2019-03-06 06:11:00 Test Item Value Reference Range Interpretation Comments AGAP (test code = AGAP) 11.9 10.0-20.0 [facility]AadgvcpRGRCDFIUWK4478-35-12 06:11:00 Test Item Value Reference Range Interpretation Comments WBC (test code = WBC) 9.0 3.7-10.4 [facility]entonRodluqxFMPAYETMRK3076-85-70 06:11:00 Test Item Value Reference Range Interpretation Comments Platelet (test code = Platelet) 319 133-450 [facility]GsikozaXCRCBBGVXT5128-30-41 06:11:00 Test Item Value Reference Range Interpretation Comments MPV (test code = MPV) 8.7 7.4-10.4 [facility]entonFtyozhmBXCNTLLXIZ7705-27-84 06:11:00 Test Item Value Reference Range Interpretation Comments RDW (test code = RDW) 13.6 11.5-14.5 [facility]entonBzgymokUARVEUPOLR1952-72-54 06:11:00 Test Item Value Reference Range Interpretation Comments MCHC (test code = MCHC) 33.2 32.0-36.0 [facility]entonTylgnvhJWRHSUZZHX8052-20-85 06:11:00 Test Item Value Reference Range Interpretation Comments MCH (test code = MCH) 29.6 pg 27.0-31.0 [facility]entonPwfuszyIWIHWUBBBW1594-70-42 06:11:00 Test Item Value Reference Range Interpretation Comments Hct (test code = Hct) 38.3 36.0-48.0 [facility]entonTxkkyvlLGUNFNMDNJ2817-06-57 06:11:00 Test Item Value Reference Range Interpretation Comments RBC (test code = RBC) 4.30 4.20-5.40 [facility]entonCmvfuggUPHWZPXJMT1477-76-49 06:11:00 Test Item Value Reference Range Interpretation Comments MCV (test code = MCV) 89.1 80.0-98.0 [facility]QtpxpitURMLVVVLAT6138-68-64 06:11:00 Test Item Value Reference Range Interpretation Comments Hgb (test code = Hgb) 12.7 12.0-16.0 [facility]entonVeotsjsSJVNMQPOWE3237-91-76 06:11:00 Test Item Value Reference Range Interpretation Comments Eosinophils (test code = 2.9 See_Comment [A utomated message] The Eosinophils) system which ge nerated this result tra nsmitted reference range : <=4.0. The reference r kunal was not used to int erpret this result as normal/abnormal . [facility]entonMtushlfBWVVFMMZLA0711-57-42 06:11:00 Test Item Value Reference Range Interpretation Comments Lymphocytes (test code = Lymphocytes) 28.7 20.0-40.0 [facility]entonJkyjxiwGQOIPOCBRD8840-44-07 06:11:00 Test Item Value Reference Range Interpretation Comments Monocytes (test code = Monocytes) 9.5 2.0-12.0 [facility]entonMjpjmriSACIYIZDAE7732-51-20 06:11:00 Test Item Value Reference Range Interpretation Comments Segs (test code = Segs) 58.7 45.0-75.0 [facility]entonJfgebwaHXSRLRPURM3315-05-63 06:11:00 Test Item Value Reference Range Interpretation Comments Lymphocytes # (test code = Lymphocytes 2.6 1.0-5.5 #) [facility]entonDetqupeYYYQENHXEJ5225-28-87 06:11:00 Test Item Value Reference Range Interpretation Comments Eosinophils # (test code 0.3 See_Comment [A utomated message] The = Eosinophils #) system whic h generated this result tra nsmitted reference range : <=0.5. The reference r kunal was not used to int erpret this result as normal/abnormal . [facility]entonHegzyjfZSGHLUNCFZ8006-65-87 06:11:00 Test Item Value Reference Range Interpretation Comments Basophils (test code = 0.2 See_Comment [Aut omated message] The Basophils) system which ge nerated this result tra nsmitted reference range : <=1.0. The reference r kunal was not used to int erpret this result as normal/abnormal . [facility]entonJxdxgblDAGVUPJYXW7299-01-89 06:11:00 Test Item Value Reference Range Interpretation Comments Neutrophils # (test code = Neutrophils 5.3 1.5-8.1 #) [facility]entonPboulpbOHYJJHKVIL7691-90-42 06:11:00 Test Item Value Reference Range Interpretation Comments Monocytes # (test code 0.9 See_Comment [Aut omated message] The = Monocytes #) system which generated this result tra nsmitted reference range : <=0.8. The reference r kunal was not used to int erpret this result as normal/abnormal . [facility]2019-03-06 06:11:00 Test Item Value Reference Range Interpretation Comments eGFR (test code = eGFR) 73 [facility]2019-03-06 06:11:00 Test Item Value Reference Range Interpretation Comments Glucose Lvl (test code = Glucose Lvl) 74 70-99 [facility]2019-03-06 06:11:00 Test Item Value Reference Range Interpretation Comments Creatinine Lvl (test code = Creatinine 0.93 0.50-1.40 Lvl) [facility]2019-03-06 06:11:00 Test Item Value Reference Range Interpretation Comments Sodium Lvl (test code = Sodium Lvl) 140 135-145 [facility]2019-03-06 06:11:00 Test Item Value Reference Range Interpretation Comments BUN (test code = BUN) 18 7-22 [facility]2019-03-06 06:11:00 Test Item Value Reference Range Interpretation Comments Calcium Lvl (test code = Calcium Lvl) 8.9 8.5-10.5 [facility]2019-03-06 06:11:00 Test Item Value Reference Range Interpretation Comments Potassium Lvl (test code = Potassium 3.9 3.5-5.1 Lvl) [facility]2019-03-06 06:11:00 Test Item Value Reference Range Interpretation Comments Chloride Lvl (test code = Chloride Lvl) 106 95-109 [facility]2019-03-06 06:11:00 Test Item Value Reference Range Interpretation Comments CO2 (test code = CO2) 26 24-32 [facility]2019-03-06 06:11:00 Test Item Value Reference Range Interpretation Comments AGAP (test code = AGAP) 11.9 10.0-20.0 [facility]RrqtafmMHCTYZLHBT5652-37-05 06:11:00 Test Item Value Reference Range Interpretation Comments WBC (test code = WBC) 9.0 3.7-10.4 [facility]entonFxefvexWCBBPVXBZK6103-64-04 06:11:00 Test Item Value Reference Range Interpretation Comments Platelet (test code = Platelet) 319 133-450 [facility] [place]EruukjrIKOMWVFEWX2695-53-59 06:11:00 Test Item Value Reference Range Interpretation Comments MPV (test code = MPV) 8.7 7.4-10.4 [facility]GxmqrgjRXFWFGKERV4720-68-03 06:11:00 Test Item Value Reference Range Interpretation Comments RDW (test code = RDW) 13.6 11.5-14.5 [facility]entonIgfhomuSCYROBOYKO7272-56-34 06:11:00 Test Item Value Reference Range Interpretation Comments MCHC (test code = MCHC) 33.2 32.0-36.0 [facility]entonWwapyuiEGSCRIRKDR0940-38-73 06:11:00 Test Item Value Reference Range Interpretation Comments MCH (test code = MCH) 29.6 pg 27.0-31.0 [facility]entonUjkyrxyUZWSKMDPNN4074-81-48 06:11:00 Test Item Value Reference Range Interpretation Comments Hct (test code = Hct) 38.3 36.0-48.0 [facility]entonQafolytVFRESOEVNY1592-95-23 06:11:00 Test Item Value Reference Range Interpretation Comments RBC (test code = RBC) 4.30 4.20-5.40 [facility]entonLfbzlcxLQZDYQIESL2599-47-50 06:11:00 Test Item Value Reference Range Interpretation Comments MCV (test code = MCV) 89.1 80.0-98.0 [facility]entonVwlhluyQNWVZSNTWX1425-96-30 06:11:00 Test Item Value Reference Range Interpretation Comments Hgb (test code = Hgb) 12.7 12.0-16.0 [facility]entonCdbkktuWGSXWJAIVI3875-54-43 06:11:00 Test Item Value Reference Range Interpretation Comments Eosinophils (test code = 2.9 See_Comment [A utomated message] The Eosinophils) system which ge nerated this result tra nsmitted reference range : <=4.0. The reference r kunal was not used to int erpret this result as normal/abnormal . [facility]2019-03-05 06:24:00 Test Item Value Reference Range Interpretation Comments Magnesium Lvl (test code = Magnesium 2.0 1.8-2.4 Lvl) [facility]2019-03-05 06:24:00 Test Item Value Reference Range Interpretation Comments eGFR (test code = eGFR) 68 [facility]2019-03-05 06:24:00 Test Item Value Reference Range Interpretation Comments Potassium Lvl (test code = Potassium 3.9 3.5-5.1 Lvl) [facility]2019-03-05 06:24:00 Test Item Value Reference Range Interpretation Comments Chloride Lvl (test code = Chloride Lvl) 112 95-109 [facility]2019-03-05 06:24:00 Test Item Value Reference Range Interpretation Comments Sodium Lvl (test code = Sodium Lvl) 144 135-145 [facility]2019-03-05 06:24:00 Test Item Value Reference Range Interpretation Comments Creatinine Lvl (test code = Creatinine 1.00 0.50-1.40 Lvl) [facility]2019-03-05 06:24:00 Test Item Value Reference Range Interpretation Comments Glucose Lvl (test code = Glucose Lvl) 90 70-99 [facility]2019-03-05 06:24:00 Test Item Value Reference Range Interpretation Comments BUN (test code = BUN) 21 7-22 [facility]2019-03-05 06:24:00 Test Item Value Reference Range Interpretation Comments CO2 (test code = CO2) 28 24-32 [facility]2019-03-05 06:24:00 Test Item Value Reference Range Interpretation Comments Calcium Lvl (test code = Calcium Lvl) 8.6 8.5-10.5 [facility]2019-03-05 06:24:00 Test Item Value Reference Range Interpretation Comments AGAP (test code = AGAP) 7.9 10.0-20.0 [facility]2019-03-05 06:24:00 Test Item Value Reference Range Interpretation Comments Phosphorus (test code = Phosphorus) 3.9 2.5-4.5 [facility]entonKxyxwuvTELZQHYZZJ9494-31-12 06:24:00 Test Item Value Reference Range Interpretation Comments Basophils # (test code 0.1 See_Comment [Aut omated message] The = Basophils #) system which generated this result tra nsmitted reference range : <=0.2. The reference r kunal was not used to int erpret this result as normal/abnormal . [facility]entonActqdtkVXVNIQGWXP3704-11-91 06:24:00 Test Item Value Reference Range Interpretation Comments Eosinophils # (test code 0.2 See_Comment [A utomated message] The = Eosinophils #) system whic h generated this result tra nsmitted reference range : <=0.5. The reference r kunal was not used to int erpret this result as normal/abnormal . [facility]entonVkllcazIWOXDOGQUW9833-33-28 06:24:00 Test Item Value Reference Range Interpretation Comments Eosinophils (test code = 2.0 See_Comment [A utomated message] The Eosinophils) system which ge nerated this result tra nsmitted reference range : <=4.0. The reference r kunal was not used to int erpret this result as normal/abnormal . [facility]entonKjpmkitBMUCUSILMT6900-89-05 06:24:00 Test Item Value Reference Range Interpretation Comments Lymphocytes # (test code = Lymphocytes 2.1 1.0-5.5 #) [place] 726949-03-05 06:24:00 Test Item Value Reference Range Interpretation Comments Monocytes # (test code 0.8 See_Comment [Aut omated message] The = Monocytes #) system which generated this result tra nsmitted reference range : <=0.8. The reference r kunal was not used to int erpret this result as normal/abnormal . [facility]entonHfnyemuQZWGSNOAJE3157-57-36 06:24:00 Test Item Value Reference Range Interpretation Comments Basophils (test code = 0.8 See_Comment [Aut omated message] The Basophils) system which ge nerated this result tra nsmitted reference range : <=1.0. The reference r kunal was not used to int erpret this result as normal/abnormal . [facility]entonTuczhviYJTWSMSCIO0800-80-24 06:24:00 Test Item Value Reference Range Interpretation Comments Neutrophils # (test code = Neutrophils 5.4 1.5-8.1 #) [facility]entonZcngvecYHCVGQQBHR5933-35-95 06:24:00 Test Item Value Reference Range Interpretation Comments Lymphocytes (test code = Lymphocytes) 24.5 20.0-40.0 [facility]entonPcahgnwATFNMIQMSP1364-21-49 06:24:00 Test Item Value Reference Range Interpretation Comments Segs (test code = Segs) 63.8 45.0-75.0 [facility]entonJjpsodvCZQOQQNMSL5861-53-73 06:24:00 Test Item Value Reference Range Interpretation Comments Monocytes (test code = Monocytes) 8.9 2.0-12.0 [facility]entonEtlefphAXUYWWIDSS3655-04-74 06:24:00 Test Item Value Reference Range Interpretation Comments Platelet (test code = Platelet) 262 133-450 [facility]entonRxwtqosDDRAABPFUE9316-21-50 06:24:00 Test Item Value Reference Range Interpretation Comments MPV (test code = MPV) 8.2 7.4-10.4 [facility]entonKeniykiOWYWGJDAVJ5409-79-72 06:24:00 Test Item Value Reference Range Interpretation Comments Hgb (test code = Hgb) 12.3 12.0-16.0 [facility]entonAdcndwfJLNHGEHNIU3202-50-95 06:24:00 Test Item Value Reference Range Interpretation Comments RBC (test code = RBC) 4.13 4.20-5.40 [facility]entonRlawconDOHFBRCPOV8769-53-62 06:24:00 Test Item Value Reference Range Interpretation Comments WBC (test code = WBC) 8.4 3.7-10.4 [facility]entonDrqlllzTEVKVEJUXF2852-60-55 06:24:00 Test Item Value Reference Range Interpretation Comments MCV (test code = MCV) 88.9 80.0-98.0 [facility]entonZazhiiyRKJANUVMJN0404-16-38 06:24:00 Test Item Value Reference Range Interpretation Comments MCH (test code = MCH) 29.9 pg 27.0-31.0 [facility]entonYmhfeerCTISUNKUBK6720-42-25 06:24:00 Test Item Value Reference Range Interpretation Comments Hct (test code = Hct) 36.7 36.0-48.0 [facility]entonLppydevUNRNFJXBWY2904-46-21 06:24:00 Test Item Value Reference Range Interpretation Comments RDW (test code = RDW) 13.6 11.5-14.5 [facility]entonZranoudLLZZMJVNSS9019-85-51 06:24:00 Test Item Value Reference Range Interpretation Comments MCHC (test code = MCHC) 33.6 32.0-36.0 [facility] ZLTUBMM6516-74-08 06:24:00 Test Item Value Reference Range Interpretation Comments Ca Norm WB (test code = Ca Norm WB) 1.14 1.05-1.25 [facility] [id number] 06:24:00 Test Item Value Reference Range Interpretation Comments Ca Ion WB (test code = Ca Ion WB) 1.15 1.05-1.25 [facility]2019-03-05 06:24:00 Test Item Value Reference Range Interpretation Comments Magnesium Lvl (test code = Magnesium 2.0 1.8-2.4 Lvl) [facility]2019-03-05 06:24:00 Test Item Value Reference Range Interpretation Comments eGFR (test code = eGFR) 68 [facility]2019-03-05 06:24:00 Test Item Value Reference Range Interpretation Comments Potassium Lvl (test code = Potassium 3.9 3.5-5.1 Lvl) [facility]2019-03-05 06:24:00 Test Item Value Reference Range Interpretation Comments Chloride Lvl (test code = Chloride Lvl) 112 95-109 [facility]2019-03-05 06:24:00 Test Item Value Reference Range Interpretation Comments Sodium Lvl (test code = Sodium Lvl) 144 135-145 [facility]2019-03-05 06:24:00 Test Item Value Reference Range Interpretation Comments Creatinine Lvl (test code = Creatinine 1.00 0.50-1.40 Lvl) [facility]2019-03-05 06:24:00 Test Item Value Reference Range Interpretation Comments Glucose Lvl (test code = Glucose Lvl) 90 70-99 [facility]2019-03-05 06:24:00 Test Item Value Reference Range Interpretation Comments BUN (test code = BUN) 21 7-22 [place] 485549-03-05 06:24:00 Test Item Value Reference Range Interpretation Comments CO2 (test code = CO2) 28 24-32 [facility]2019-03-05 06:24:00 Test Item Value Reference Range Interpretation Comments Calcium Lvl (test code = Calcium Lvl) 8.6 8.5-10.5 [facility]2019-03-05 06:24:00 Test Item Value Reference Range Interpretation Comments AGAP (test code = AGAP) 7.9 10.0-20.0 [facility]2019-03-05 06:24:00 Test Item Value Reference Range Interpretation Comments Phosphorus (test code = Phosphorus) 3.9 2.5-4.5 [facility]entonOndywpeWKLLQCVBFB2572-02-07 06:24:00 Test Item Value Reference Range Interpretation Comments Basophils # (test code 0.1 See_Comment [Aut omated message] The = Basophils #) system which generated this result tra nsmitted reference range : <=0.2. The reference r kunal was not used to int erpret this result as normal/abnormal . [facility]entonBjsmbdmEFMXOTHNCM0188-94-38 06:24:00 Test Item Value Reference Range Interpretation Comments Eosinophils # (test code 0.2 See_Comment [A utomated message] The = Eosinophils #) system whic h generated this result tra nsmitted reference range : <=0.5. The reference r kunal was not used to int erpret this result as normal/abnormal . [facility]JtepwlqTEBYQKQGQZ9375-74-18 06:24:00 Test Item Value Reference Range Interpretation Comments Eosinophils (test code = 2.0 See_Comment [A utomated message] The Eosinophils) system which ge nerated this result tra nsmitted reference range : <=4.0. The reference r kunal was not used to int erpret this result as normal/abnormal . [facility]entonGtkihftIEPDRAXDPM0746-66-57 06:24:00 Test Item Value Reference Range Interpretation Comments Lymphocytes # (test code = Lymphocytes 2.1 1.0-5.5 #) [facility]entonOjgebblXRRQMPAPNH2359-69-35 06:24:00 Test Item Value Reference Range Interpretation Comments Monocytes # (test code 0.8 See_Comment [Aut omated message] The = Monocytes #) system which generated this result tra nsmitted reference range : <=0.8. The reference r kunal was not used to int erpret this result as normal/abnormal . [facility]entonCmlpmnqABBDRBOXWN4455-03-48 06:24:00 Test Item Value Reference Range Interpretation Comments Basophils (test code = 0.8 See_Comment [Aut omated message] The Basophils) system which ge nerated this result tra nsmitted reference range : <=1.0. The reference r kunal was not used to int erpret this result as normal/abnormal . [facility]entonCkodekzOLHYCPZYAH7322-17-01 06:24:00 Test Item Value Reference Range Interpretation Comments Neutrophils # (test code = Neutrophils 5.4 1.5-8.1 #) [facility]entonYbnvefxYBINQBWOXA1411-03-74 06:24:00 Test Item Value Reference Range Interpretation Comments Lymphocytes (test code = Lymphocytes) 24.5 20.0-40.0 [facility]entonNuujwjgWWYPRGVOHB2013-34-64 06:24:00 Test Item Value Reference Range Interpretation Comments Segs (test code = Segs) 63.8 45.0-75.0 [facility]CnwtkcsWCWSNEGCXA7222-84-81 06:24:00 Test Item Value Reference Range Interpretation Comments Monocytes (test code = Monocytes) 8.9 2.0-12.0 [facility]PupwpnvHQCZORKUNL0127-00-43 06:24:00 Test Item Value Reference Range Interpretation Comments Platelet (test code = Platelet) 262 133-450 [facility]HtwxjnrQGAJOGZHRO7511-48-29 06:24:00 Test Item Value Reference Range Interpretation Comments MPV (test code = MPV) 8.2 7.4-10.4 [facility]entonRwtajniNPOTCLNHWX3143-41-18 06:24:00 Test Item Value Reference Range Interpretation Comments Hgb (test code = Hgb) 12.3 12.0-16.0 [facility]entonJccimzpNCUTKUQBLR5488-18-46 06:24:00 Test Item Value Reference Range Interpretation Comments RBC (test code = RBC) 4.13 4.20-5.40 [facility]entonAxgktsvWEYOYIIJIO9144-63-25 06:24:00 Test Item Value Reference Range Interpretation Comments WBC (test code = WBC) 8.4 3.7-10.4 [facility]entonIgmaglyHRRJNKQSOF0314-27-83 06:24:00 Test Item Value Reference Range Interpretation Comments MCV (test code = MCV) 88.9 80.0-98.0 [facility]entonFtopxjfSXBSMUXTQJ9376-56-65 06:24:00 Test Item Value Reference Range Interpretation Comments MCH (test code = MCH) 29.9 pg 27.0-31.0 [facility]entonHtwjgxtUYZAPLGVSR1541-29-45 06:24:00 Test Item Value Reference Range Interpretation Comments Hct (test code = Hct) 36.7 36.0-48.0 [facility]entonTbmmnckOFQLQUGWNY7135-41-55 06:24:00 Test Item Value Reference Range Interpretation Comments RDW (test code = RDW) 13.6 11.5-14.5 [facility]entonCkelajkUAVCRDFRUV3452-65-48 06:24:00 Test Item Value Reference Range Interpretation Comments MCHC (test code = MCHC) 33.6 32.0-36.0 [facility]2019-03-05 06:24:00 Test Item Value Reference Range Interpretation Comments Ca Norm WB (test code = Ca Norm WB) 1.14 1.05-1.25 [facility]2019-03-05 06:24:00 Test Item Value Reference Range Interpretation Comments Ca Ion WB (test code = Ca Ion WB) 1.15 1.05-1.25 [facility]2019-03-05 06:24:00 Test Item Value Reference Range Interpretation Comments Magnesium Lvl (test code = Magnesium 2.0 1.8-2.4 Lvl) [facility]2019-03-05 06:24:00 Test Item Value Reference Range Interpretation Comments eGFR (test code = eGFR) 68 [facility]2019-03-05 06:24:00 Test Item Value Reference Range Interpretation Comments Potassium Lvl (test code = Potassium 3.9 3.5-5.1 Lvl) [facility]2019-03-05 06:24:00 Test Item Value Reference Range Interpretation Comments Chloride Lvl (test code = Chloride Lvl) 112 95-109 [facility]2019-03-05 06:24:00 Test Item Value Reference Range Interpretation Comments Sodium Lvl (test code = Sodium Lvl) 144 135-145 [facility]2019-03-05 06:24:00 Test Item Value Reference Range Interpretation Comments Creatinine Lvl (test code = Creatinine 1.00 0.50-1.40 Lvl) [facility]2019-03-05 06:24:00 Test Item Value Reference Range Interpretation Comments Glucose Lvl (test code = Glucose Lvl) 90 70-99 [facility]2019-03-05 06:24:00 Test Item Value Reference Range Interpretation Comments BUN (test code = BUN) 21 7-22 [place] 485549-03-05 06:24:00 Test Item Value Reference Range Interpretation Comments CO2 (test code = CO2) 28 24-32 [place] 485549-03-05 06:24:00 Test Item Value Reference Range Interpretation Comments Calcium Lvl (test code = Calcium Lvl) 8.6 8.5-10.5 [facility]2019-03-05 06:24:00 Test Item Value Reference Range Interpretation Comments AGAP (test code = AGAP) 7.9 10.0-20.0 [facility]2019-03-05 06:24:00 Test Item Value Reference Range Interpretation Comments Phosphorus (test code = Phosphorus) 3.9 2.5-4.5 [facility]entonSwercmxEFNDIMWJVD3259-38-25 06:24:00 Test Item Value Reference Range Interpretation Comments Basophils # (test code 0.1 See_Comment [Aut omated message] The = Basophils #) system which generated this result tra nsmitted reference range : <=0.2. The reference r kunal was not used to int erpret this result as normal/abnormal . [facility]entonUuxagonUJEKYJMWLW7822-13-68 06:24:00 Test Item Value Reference Range Interpretation Comments Eosinophils # (test code 0.2 See_Comment [A utomated message] The = Eosinophils #) system whic h generated this result tra nsmitted reference range : <=0.5. The reference r kunal was not used to int erpret this result as normal/abnormal . [facility]entonDlfzqirGIIONALUMP3217-32-74 06:24:00 Test Item Value Reference Range Interpretation Comments Eosinophils (test code = 2.0 See_Comment [A utomated message] The Eosinophils) system which ge nerated this result tra nsmitted reference range : <=4.0. The reference r kunal was not used to int erpret this result as normal/abnormal . [facility]entonCupkusvRAYFIADEQK8014-66-86 06:24:00 Test Item Value Reference Range Interpretation Comments Lymphocytes # (test code = Lymphocytes 2.1 1.0-5.5 #) [facility]entonRovpjmdSFQWGMSTFO0234-69-00 06:24:00 Test Item Value Reference Range Interpretation Comments Monocytes # (test code 0.8 See_Comment [Aut omated message] The = Monocytes #) system which generated this result tra nsmitted reference range : <=0.8. The reference r kunal was not used to int erpret this result as normal/abnormal . [facility]entonOlkkharBXQREVLDZC9400-09-79 06:24:00 Test Item Value Reference Range Interpretation Comments Basophils (test code = 0.8 See_Comment [Aut omated message] The Basophils) system which ge nerated this result tra nsmitted reference range : <=1.0. The reference r kunal was not used to int erpret this result as normal/abnormal . [facility]entonLvdyoemXPEFGOCQIZ5428-29-89 06:24:00 Test Item Value Reference Range Interpretation Comments Neutrophils # (test code = Neutrophils 5.4 1.5-8.1 #) [facility]entonQabnbvzBEVOMHPQBE8209-84-61 06:24:00 Test Item Value Reference Range Interpretation Comments Lymphocytes (test code = Lymphocytes) 24.5 20.0-40.0 [facility]entonFbaxjniYAGRPNTRUM6909-22-27 06:24:00 Test Item Value Reference Range Interpretation Comments Segs (test code = Segs) 63.8 45.0-75.0 [facility]entonTtkysxtCYRISHVDCY6136-02-39 06:24:00 Test Item Value Reference Range Interpretation Comments Monocytes (test code = Monocytes) 8.9 2.0-12.0 [facility]entonLejcqeaGPBUVREAFG7260-23-43 06:24:00 Test Item Value Reference Range Interpretation Comments Platelet (test code = Platelet) 262 328-450 [facility]CrwzdmvVXDEJATMDE0755-44-40 06:24:00 Test Item Value Reference Range Interpretation Comments MPV (test code = MPV) 8.2 7.4-10.4 [facility]entonZgpzfamTQFUQDUHYO2417-96-04 06:24:00 Test Item Value Reference Range Interpretation Comments Hgb (test code = Hgb) 12.3 12.0-16.0 [facility]entonAdswhybLKEGWMRSBT2033-28-64 06:24:00 Test Item Value Reference Range Interpretation Comments RBC (test code = RBC) 4.13 4.20-5.40 [facility]entonCaiwidzCGZJVLZNQQ1539-14-82 06:24:00 Test Item Value Reference Range Interpretation Comments WBC (test code = WBC) 8.4 3.7-10.4 [facility]entonPiyhdepCSBQWOVURS7888-86-35 06:24:00 Test Item Value Reference Range Interpretation Comments MCV (test code = MCV) 88.9 80.0-98.0 [facility]entonFkgpyxaLROGHWZHXD8306-16-25 06:24:00 Test Item Value Reference Range Interpretation Comments MCH (test code = MCH) 29.9 pg 27.0-31.0 [facility]entonTsbreegGHJVREOSQE5439-36-72 06:24:00 Test Item Value Reference Range Interpretation Comments Hct (test code = Hct) 36.7 36.0-48.0 [facility]entonMbawdjtEFKSLUDICE9495-91-43 06:24:00 Test Item Value Reference Range Interpretation Comments RDW (test code = RDW) 13.6 11.5-14.5 [facility]entonFpgrsnlTUASRXSDXC1067-04-35 06:24:00 Test Item Value Reference Range Interpretation Comments MCHC (test code = MCHC) 33.6 32.0-36.0 [facility] FPEBKNY7866-07-66 06:24:00 Test Item Value Reference Range Interpretation Comments Ca Norm WB (test code = Ca Norm WB) 1.14 1.05-1.25 [facility] ZPRBGWD0849-66-78 06:24:00 Test Item Value Reference Range Interpretation Comments Ca Ion WB (test code = Ca Ion WB) 1.15 1.05-1.25 [facility]CHE[facility] IRPZG2148-11-21 06:24:00 Test Item Value Reference Range Interpretation Comments Magnesium Lvl (test code = Magnesium 2.0 1.8-2.4 Lvl) [facility]2019-03-05 06:24:00 Test Item Value Reference Range Interpretation Comments eGFR (test code = eGFR) 68 [facility]2019-03-05 06:24:00 Test Item Value Reference Range Interpretation Comments Potassium Lvl (test code = Potassium 3.9 3.5-5.1 Lvl) [facility]2019-03-05 06:24:00 Test Item Value Reference Range Interpretation Comments Chloride Lvl (test code = Chloride Lvl) 112 95-109 [facility]2019-03-05 06:24:00 Test Item Value Reference Range Interpretation Comments Sodium Lvl (test code = Sodium Lvl) 144 135-145 [facility]2019-03-05 06:24:00 Test Item Value Reference Range Interpretation Comments Creatinine Lvl (test code = Creatinine 1.00 0.50-1.40 Lvl) [facility]2019-03-05 06:24:00 Test Item Value Reference Range Interpretation Comments Glucose Lvl (test code = Glucose Lvl) 90 70-99 [facility]2019-03-05 06:24:00 Test Item Value Reference Range Interpretation Comments BUN (test code = BUN) 21 7-22 [facility]2019-03-05 06:24:00 Test Item Value Reference Range Interpretation Comments CO2 (test code = CO2) 28 24-32 [facility]2019-03-05 06:24:00 Test Item Value Reference Range Interpretation Comments Calcium Lvl (test code = Calcium Lvl) 8.6 8.5-10.5 [facility]2019-03-05 06:24:00 Test Item Value Reference Range Interpretation Comments AGAP (test code = AGAP) 7.9 10.0-20.0 [facility]2019-03-05 06:24:00 Test Item Value Reference Range Interpretation Comments Phosphorus (test code = Phosphorus) 3.9 2.5-4.5 [facility]nd[facility]kjCPPAEJWIAY0085-35-83 06:24:00 Test Item Value Reference Range Interpretation Comments Basophils # (test code 0.1 See_Comment [Aut omated message] The = Basophils #) system which generated this result tra nsmitted reference range : <=0.2. The reference r kunal was not used to int erpret this result as normal/abnormal . [facility]entonTntmoxiWGRCVUBBDF8170-40-67 06:24:00 Test Item Value Reference Range Interpretation Comments Eosinophils # (test code 0.2 See_Comment [A utomated message] The = Eosinophils #) system whic h generated this result tra nsmitted reference range : <=0.5. The reference r kunal was not used to int erpret this result as normal/abnormal . [facility]entonWehskewCRKHQRPYFC2797-14-27 06:24:00 Test Item Value Reference Range Interpretation Comments Eosinophils (test code = 2.0 See_Comment [A utomated message] The Eosinophils) system which ge nerated this result tra nsmitted reference range : <=4.0. The reference r kunal was not used to int erpret this result as normal/abnormal . [facility]entonUvuanokLKMGOZHIAT0467-59-09 06:24:00 Test Item Value Reference Range Interpretation Comments Lymphocytes # (test code = Lymphocytes 2.1 1.0-5.5 #) [facility]entonJcfacyfPFVAQFHBWC6244-54-38 06:24:00 Test Item Value Reference Range Interpretation Comments Monocytes # (test code 0.8 See_Comment [Aut omated message] The = Monocytes #) system which generated this result tra nsmitted reference range : <=0.8. The reference r kunal was not used to int erpret this result as normal/abnormal . [facility]entonNtjiaqbMGBZTLHTXR0867-99-84 06:24:00 Test Item Value Reference Range Interpretation Comments Basophils (test code = 0.8 See_Comment [Aut omated message] The Basophils) system which ge nerated this result tra nsmitted reference range : <=1.0. The reference r kunal was not used to int erpret this result as normal/abnormal . [facility]entonCfkpvuzPTATPEQANZ1763-52-60 06:24:00 Test Item Value Reference Range Interpretation Comments Neutrophils # (test code = Neutrophils 5.4 1.5-8.1 #) [facility]entonCxorebmUSXRZOHOWQ1108-62-40 06:24:00 Test Item Value Reference Range Interpretation Comments Lymphocytes (test code = Lymphocytes) 24.5 20.0-40.0 [facility]entonXovugsrAFCEZUWTLX8928-83-31 06:24:00 Test Item Value Reference Range Interpretation Comments Segs (test code = Segs) 63.8 45.0-75.0 [facility]BglailpKAYUUBCWFF0492-94-27 06:24:00 Test Item Value Reference Range Interpretation Comments Monocytes (test code = Monocytes) 8.9 2.0-12.0 [facility] CenterTirhfkoETMCZYLZYG8297-22-39 06:24:00 Test Item Value Reference Range Interpretation Comments Platelet (test code = Platelet) 262 133-450 [facility] CenterPyfafdyRRKDSUWXRG9520-91-66 06:24:00 Test Item Value Reference Range Interpretation Comments MPV (test code = MPV) 8.2 7.4-10.4 [facility] CenterYhpjslrJGCDHWRXJO6191-39-86 06:24:00 Test Item Value Reference Range Interpretation Comments Hgb (test code = Hgb) 12.3 12.0-16.0 [facility]ptqkxiTYPDCZGCUP9721-57-28 06:24:00 Test Item Value Reference Range Interpretation Comments RBC (test code = RBC) 4.13 4.20-5.40 [facility] CenterJazqcpxKIZBHCJZZJ4520-10-28 06:24:00 Test Item Value Reference Range Interpretation Comments WBC (test code = WBC) 8.4 3.7-10.4 [facility] CenterQjdkzvwTETDFVIXWK2858-85-96 06:24:00 Test Item Value Reference Range Interpretation Comments MCV (test code = MCV) 88.9 80.0-98.0 [facility] CenterJwoupogOBABNSXVOR2151-62-85 06:24:00 Test Item Value Reference Range Interpretation Comments MCH (test code = MCH) 29.9 pg 27.0-31.0 [facility] CenterVdtvqyqKMPCZPZTMC3952-89-15 06:24:00 Test Item Value Reference Range Interpretation Comments Hct (test code = Hct) 36.7 36.0-48.0 [facility] CenterZtylbvcIYUCIEQLKN1036-35-55 06:24:00 Test Item Value Reference Range Interpretation Comments RDW (test code = RDW) 13.6 11.5-14.5 [facility] CenterZctsrffREQACKOUVQ4337-81-41 06:24:00 Test Item Value Reference Range Interpretation Comments MCHC (test code = MCHC) 33.6 32.0-36.0 [facility] CenterPARATHYROID OYWEYFV8233-19-79 06:24:00 Test Item Value Reference Range Interpretation Comments Ca Norm WB (test code = Ca Norm WB) 1.14 1.05-1.25 [facility] CenterPARATHYROID KAPEJRC5014-43-54 06:24:00 Test Item Value Reference Range Interpretation Comments Ca Ion WB (test code = Ca Ion WB) 1.15 1.05-1.25 [facility]2019-03-05 06:24:00 Test Item Value Reference Range Interpretation Comments Magnesium Lvl (test code = Magnesium 2.0 1.8-2.4 Lvl) [facility]2019-03-05 06:24:00 Test Item Value Reference Range Interpretation Comments eGFR (test code = eGFR) 68 [facility]2019-03-05 06:24:00 Test Item Value Reference Range Interpretation Comments Potassium Lvl (test code = Potassium 3.9 3.5-5.1 Lvl) [facility]2019-03-05 06:24:00 Test Item Value Reference Range Interpretation Comments Chloride Lvl (test code = Chloride Lvl) 112 95-109 [facility]2019-03-05 06:24:00 Test Item Value Reference Range Interpretation Comments Sodium Lvl (test code = Sodium Lvl) 144 135-145 [facility]2019-03-05 06:24:00 Test Item Value Reference Range Interpretation Comments Creatinine Lvl (test code = Creatinine 1.00 0.50-1.40 Lvl) [facility]2019-03-05 06:24:00 Test Item Value Reference Range Interpretation Comments Glucose Lvl (test code = Glucose Lvl) 90 70-99 [facility]2019-03-05 06:24:00 Test Item Value Reference Range Interpretation Comments BUN (test code = BUN) 21 7-22 [facility]2019-03-05 06:24:00 Test Item Value Reference Range Interpretation Comments CO2 (test code = CO2) 28 24-32 [facility]2019-03-05 06:24:00 Test Item Value Reference Range Interpretation Comments Calcium Lvl (test code = Calcium Lvl) 8.6 8.5-10.5 [facility]2019-03-05 06:24:00 Test Item Value Reference Range Interpretation Comments AGAP (test code = AGAP) 7.9 10.0-20.0 [place] 485549-03-05 06:24:00 Test Item Value Reference Range Interpretation Comments Phosphorus (test code = Phosphorus) 3.9 2.5-4.5 [facility]AhyzgvxQQTQTLYWBS6884-58-84 06:24:00 Test Item Value Reference Range Interpretation Comments Basophils # (test code 0.1 See_Comment [Aut omated message] The = Basophils #) system which generated this result tra nsmitted reference range : <=0.2. The reference r kunal was not used to int erpret this result as normal/abnormal . [facility]HpbebmmUOZMBUCUXJ2100-94-96 06:24:00 Test Item Value Reference Range Interpretation Comments Eosinophils # (test code 0.2 See_Comment [A utomated message] The = Eosinophils #) system whic h generated this result tra nsmitted reference range : <=0.5. The reference r kunal was not used to int erpret this result as normal/abnormal . [facility]TtjjjroTWMOLYVHHC8346-40-81 06:24:00 Test Item Value Reference Range Interpretation Comments Eosinophils (test code = 2.0 See_Comment [A utomated message] The Eosinophils) system which ge nerated this result tra nsmitted reference range : <=4.0. The reference r kunal was not used to int erpret this result as normal/abnormal . [facility]EhbqwmqEVZWVBXVBZ4250-89-20 06:24:00 Test Item Value Reference Range Interpretation Comments Lymphocytes # (test code = Lymphocytes 2.1 1.0-5.5 #) [facility]SvtftkyAGUQZOIIQJ4207-65-44 06:24:00 Test Item Value Reference Range Interpretation Comments Monocytes # (test code 0.8 See_Comment [Aut omated message] The = Monocytes #) system which generated this result tra nsmitted reference range : <=0.8. The reference r kunal was not used to int erpret this result as normal/abnormal . [facility]entonWvvpyuaCJIODNZBTL6954-09-15 06:24:00 Test Item Value Reference Range Interpretation Comments Basophils (test code = 0.8 See_Comment [Aut omated message] The Basophils) system which ge nerated this result tra nsmitted reference range : <=1.0. The reference r kunal was not used to int erpret this result as normal/abnormal . [facility]CcsbxuwNDPWHWYYDU2893-58-68 06:24:00 Test Item Value Reference Range Interpretation Comments Neutrophils # (test code = Neutrophils 5.4 1.5-8.1 #) [facility]YvkqyooQXTTPNAHTO7365-88-89 06:24:00 Test Item Value Reference Range Interpretation Comments Lymphocytes (test code = Lymphocytes) 24.5 20.0-40.0 [facility]JtrxjmgXPWFVMIYLO9156-96-28 06:24:00 Test Item Value Reference Range Interpretation Comments Segs (test code = Segs) 63.8 45.0-75.0 [facility]entonFasadpcJSFFDXJPGW9163-49-53 06:24:00 Test Item Value Reference Range Interpretation Comments Monocytes (test code = Monocytes) 8.9 2.0-12.0 [facility]RgybgvpYAWWMIEONG3816-01-53 06:24:00 Test Item Value Reference Range Interpretation Comments Platelet (test code = Platelet) 262 133-450 [facility]XzmekdcDKFHXDAOQP6407-00-37 06:24:00 Test Item Value Reference Range Interpretation Comments MPV (test code = MPV) 8.2 7.4-10.4 [facility]VzkzbwdSGFULAPQHH7639-49-60 06:24:00 Test Item Value Reference Range Interpretation Comments Hgb (test code = Hgb) 12.3 12.0-16.0 [facility]NqhpuntRTNYORKDGH4046-84-96 06:24:00 Test Item Value Reference Range Interpretation Comments RBC (test code = RBC) 4.13 4.20-5.40 [facility]IvhhbtwFFJSNAPJOL2170-06-37 06:24:00 Test Item Value Reference Range Interpretation Comments WBC (test code = WBC) 8.4 3.7-10.4 [facility]MdjtfzyYXPRWDDJBJ4853-97-90 06:24:00 Test Item Value Reference Range Interpretation Comments MCV (test code = MCV) 88.9 80.0-98.0 [facility]entonUchqndpPIUWGBBMYK0856-65-39 06:24:00 Test Item Value Reference Range Interpretation Comments MCH (test code = MCH) 29.9 pg 27.0-31.0 [facility]entonBaodlsrEGHGRZCXVF8088-92-51 06:24:00 Test Item Value Reference Range Interpretation Comments Hct (test code = Hct) 36.7 36.0-48.0 [facility]entonDstlczpPVBPDDKQBN3174-22-88 06:24:00 Test Item Value Reference Range Interpretation Comments RDW (test code = RDW) 13.6 11.5-14.5 [facility] CenterAidztpwWNPDLBQCZM0362-03-85 06:24:00 Test Item Value Reference Range Interpretation Comments MCHC (test code = MCHC) 33.6 32.0-36.0 [facility] YUDFAMC6300-32-18 06:24:00 Test Item Value Reference Range Interpretation Comments Ca Norm WB (test code = Ca Norm WB) 1.14 1.05-1.25 [facility]RO[facility] CLTCQOF3701-00-31 06:24:00 Test Item Value Reference Range Interpretation Comments Ca Ion WB (test code = Ca Ion WB) 1.15 1.05-1.25 [facility] [id number] 07:49:00 Test Item Value Reference Range Interpretation Comments Phosphorus (test code = Phosphorus) 3.2 2.5-4.5 [facility]2019-03-04 07:49:00 Test Item Value Reference Range Interpretation Comments Magnesium Lvl (test code = Magnesium 1.9 1.8-2.4 Lvl) [facility]2019-03-04 07:49:00 Test Item Value Reference Range Interpretation Comments eGFR (test code = eGFR) 81 [facility]2019-03-04 07:49:00 Test Item Value Reference Range Interpretation Comments AGAP (test code = AGAP) 10.9 10.0-20.0 [facility]2019-03-04 07:49:00 Test Item Value Reference Range Interpretation Comments Calcium Lvl (test code = Calcium Lvl) 8.5 8.5-10.5 [facility]2019-03-04 07:49:00 Test Item Value Reference Range Interpretation Comments Potassium Lvl (test code = Potassium 3.9 3.5-5.1 Lvl) [facility]2019-03-04 07:49:00 Test Item Value Reference Range Interpretation Comments Sodium Lvl (test code = Sodium Lvl) 142 135-145 [facility]2019-03-04 07:49:00 Test Item Value Reference Range Interpretation Comments Chloride Lvl (test code = Chloride Lvl) 111 95-109 [facility]2019-03-04 07:49:00 Test Item Value Reference Range Interpretation Comments Creatinine Lvl (test code = Creatinine 0.96 0.50-1.40 Lvl) [facility]2019-03-04 07:49:00 Test Item Value Reference Range Interpretation Comments BUN (test code = BUN) 17 7-22 [facility]2019-03-04 07:49:00 Test Item Value Reference Range Interpretation Comments Glucose Lvl (test code = Glucose Lvl) 126 70-99 [facility]2019-03-04 07:49:00 Test Item Value Reference Range Interpretation Comments CO2 (test code = CO2) 24 24-32 [place] 726949-03-04 07:49:00 Test Item Value Reference Range Interpretation Comments Segs (test code = Segs) 86.1 45.0-75.0 [place] 726949-03-04 07:49:00 Test Item Value Reference Range Interpretation Comments Basophils (test code = 0.4 See_Comment [Aut omated message] The Basophils) system which ge nerated this result tra nsmitted reference range : <=1.0. The reference r kunal was not used to int erpret this result as normal/abnormal . [facility]YmnfkraQCDTYUYASL6888-41-49 07:49:00 Test Item Value Reference Range Interpretation Comments Neutrophils # (test code = Neutrophils 12.7 1.5-8.1 #) [facility]entonHcrinheWQJZVILZJG2958-99-27 07:49:00 Test Item Value Reference Range Interpretation Comments Lymphocytes (test code = Lymphocytes) 6.3 20.0-40.0 [facility]LjeyyvbCSFMULEWHA0015-06-12 07:49:00 Test Item Value Reference Range Interpretation Comments Monocytes (test code = Monocytes) 7.2 2.0-12.0 [facility]entonYyrvqptKTXMJRLVJP0218-82-03 07:49:00 Test Item Value Reference Range Interpretation Comments Lymphocytes # (test code = Lymphocytes 0.9 1.0-5.5 #) [place] [address]-03-04 07:49:00 Test Item Value Reference Range Interpretation Comments Basophils # (test code 0.1 See_Comment [Aut omated message] The = Basophils #) system which generated this result tra nsmitted reference range : <=0.2. The reference r kunal was not used to int erpret this result as normal/abnormal . [place] 726949-03-04 07:49:00 Test Item Value Reference Range Interpretation Comments Monocytes # (test code 1.1 See_Comment [Aut omated message] The = Monocytes #) system which generated this result tra nsmitted reference range : <=0.8. The reference r kunal was not used to int erpret this result as normal/abnormal . [facility]BczxhywEUXJMWWSTO6921-76-17 07:49:00 Test Item Value Reference Range Interpretation Comments MPV (test code = MPV) 8.3 7.4-10.4 [facility]CbaempiPIKDGWPQVY2594-54-50 07:49:00 Test Item Value Reference Range Interpretation Comments MCHC (test code = MCHC) 33.3 32.0-36.0 [facility]entonDlljjwcHFZBGCQJNG3339-72-02 07:49:00 Test Item Value Reference Range Interpretation Comments RDW (test code = RDW) 13.5 11.5-14.5 [facility]UpaxzaiJXRECJTPIE5188-35-66 07:49:00 Test Item Value Reference Range Interpretation Comments Platelet (test code = Platelet) 330 133-450 [facility]DmjolcnHPHQXYQBRW8189-37-78 07:49:00 Test Item Value Reference Range Interpretation Comments Hgb (test code = Hgb) 12.8 12.0-16.0 [facility]entonRxsplwhCTKHSXZQPI1193-49-43 07:49:00 Test Item Value Reference Range Interpretation Comments Hct (test code = Hct) 38.4 36.0-48.0 [facility]entonZavgcxfMPMEJVWXSA0870-67-87 07:49:00 Test Item Value Reference Range Interpretation Comments MCV (test code = MCV) 88.1 80.0-98.0 [facility]AirmrwnRNBHDZRGKL0152-82-25 07:49:00 Test Item Value Reference Range Interpretation Comments MCH (test code = MCH) 29.4 pg 27.0-31.0 [facility]entonUchexjxDGRJTDCLSK9063-17-29 07:49:00 Test Item Value Reference Range Interpretation Comments WBC (test code = WBC) 14.7 3.7-10.4 [facility]XxirpveRCMJKGKKXI3211-21-33 07:49:00 Test Item Value Reference Range Interpretation Comments RBC (test code = RBC) 4.36 4.20-5.40 [facility] CenterPARATHYROID MWTPQUK4384-77-77 07:49:00 Test Item Value Reference Range Interpretation Comments Ca Ion WB (test code = Ca Ion WB) 1.15 1.05-1.25 [facility]2019-03-04 07:49:00 Test Item Value Reference Range Interpretation Comments Ca Norm WB (test code = Ca Norm WB) 1.16 1.05-1.25 [facility]RriebbxSVXZJBIHTC6375-42-42 07:49:00 Test Item Value Reference Range Interpretation Comments Segs (test code = Segs) 86.1 45.0-75.0 [facility]UatjavnVASXFTCYQQ5483-71-55 07:49:00 Test Item Value Reference Range Interpretation Comments Basophils (test code = 0.4 See_Comment [Aut omated message] The Basophils) system which ge nerated this result tra nsmitted reference range : <=1.0. The reference r kunal was not used to int erpret this result as normal/abnormal . [facility]entonVowqfelTJCZEMMZXO3154-08-09 07:49:00 Test Item Value Reference Range Interpretation Comments Neutrophils # (test code = Neutrophils 12.7 1.5-8.1 #) [facility]entonSlucbreLHHAYRTTVT5529-70-60 07:49:00 Test Item Value Reference Range Interpretation Comments Lymphocytes (test code = Lymphocytes) 6.3 20.0-40.0 [facility]RxmxjjfZGSSRESUVV1958-41-87 07:49:00 Test Item Value Reference Range Interpretation Comments Monocytes (test code = Monocytes) 7.2 2.0-12.0 [facility]entonFvtcyvqZDPDDBWOWS3316-49-28 07:49:00 Test Item Value Reference Range Interpretation Comments Lymphocytes # (test code = Lymphocytes 0.9 1.0-5.5 #) [facility]SxlfhgmMHNLWIWQNU3946-50-27 07:49:00 Test Item Value Reference Range Interpretation Comments Basophils # (test code 0.1 See_Comment [Aut omated message] The = Basophils #) system which generated this result tra nsmitted reference range : <=0.2. The reference r kunal was not used to int erpret this result as normal/abnormal . [facility]VlqelkwDTPLNNUMFB6373-07-94 07:49:00 Test Item Value Reference Range Interpretation Comments Monocytes # (test code 1.1 See_Comment [Aut omated message] The = Monocytes #) system which generated this result tra nsmitted reference range : <=0.8. The reference r kunal was not used to int erpret this result as normal/abnormal . [facility]entonKzknqgzSHKBYBFECO3937-03-33 07:49:00 Test Item Value Reference Range Interpretation Comments MPV (test code = MPV) 8.3 7.4-10.4 [facility]entonZebrhmcTOQUANMHKU8824-48-91 07:49:00 Test Item Value Reference Range Interpretation Comments MCHC (test code = MCHC) 33.3 32.0-36.0 [facility]entonNnliicwSXPDCQITAG1002-50-33 07:49:00 Test Item Value Reference Range Interpretation Comments RDW (test code = RDW) 13.5 11.5-14.5 [facility]entonKfhbwbzHHITDJHQHD2859-99-98 07:49:00 Test Item Value Reference Range Interpretation Comments Platelet (test code = Platelet) 330 133-450 [facility]entonGpdjgozYJPIGSCGCA6417-67-81 07:49:00 Test Item Value Reference Range Interpretation Comments Hgb (test code = Hgb) 12.8 12.0-16.0 [facility]entonBweqwodSWMSGOKUAK4446-01-34 07:49:00 Test Item Value Reference Range Interpretation Comments Hct (test code = Hct) 38.4 36.0-48.0 [facility]entonIhlkuumZPFIUADZWW1376-34-31 07:49:00 Test Item Value Reference Range Interpretation Comments MCV (test code = MCV) 88.1 80.0-98.0 [facility]EgozhggLTAHURDDPD8155-38-64 07:49:00 Test Item Value Reference Range Interpretation Comments MCH (test code = MCH) 29.4 pg 27.0-31.0 [facility]entonJcnnwegWUDNTQWIIL9187-70-54 07:49:00 Test Item Value Reference Range Interpretation Comments WBC (test code = WBC) 14.7 3.7-10.4 [facility]entonPkhzicsCOSJJYVVYL6707-94-74 07:49:00 Test Item Value Reference Range Interpretation Comments RBC (test code = RBC) 4.36 4.20-5.40 [facility] CenterPARATHYROID CXVHNKW0255-76-97 07:49:00 Test Item Value Reference Range Interpretation Comments Ca Ion WB (test code = Ca Ion WB) 1.15 1.05-1.25 [facility] JOXBPBU5214-30-32 07:49:00 Test Item Value Reference Range Interpretation Comments Ca Norm WB (test code = Ca Norm WB) 1.16 1.05-1.25 [facility]2019-03-04 07:49:00 Test Item Value Reference Range Interpretation Comments Phosphorus (test code = Phosphorus) 3.2 2.5-4.5 [facility]2019-03-04 07:49:00 Test Item Value Reference Range Interpretation Comments Magnesium Lvl (test code = Magnesium 1.9 1.8-2.4 Lvl) [facility]2019-03-04 07:49:00 Test Item Value Reference Range Interpretation Comments eGFR (test code = eGFR) 81 [facility]2019-03-04 07:49:00 Test Item Value Reference Range Interpretation Comments AGAP (test code = AGAP) 10.9 10.0-20.0 [facility]2019-03-04 07:49:00 Test Item Value Reference Range Interpretation Comments Calcium Lvl (test code = Calcium Lvl) 8.5 8.5-10.5 [facility]2019-03-04 07:49:00 Test Item Value Reference Range Interpretation Comments Potassium Lvl (test code = Potassium 3.9 3.5-5.1 Lvl) [facility]2019-03-04 07:49:00 Test Item Value Reference Range Interpretation Comments Sodium Lvl (test code = Sodium Lvl) 142 135-145 [facility]2019-03-04 07:49:00 Test Item Value Reference Range Interpretation Comments Chloride Lvl (test code = Chloride Lvl) 111 95-109 [facility]2019-03-04 07:49:00 Test Item Value Reference Range Interpretation Comments Creatinine Lvl (test code = Creatinine 0.96 0.50-1.40 Lvl) [facility]2019-03-04 07:49:00 Test Item Value Reference Range Interpretation Comments BUN (test code = BUN) 17 7-22 [facility]2019-03-04 07:49:00 Test Item Value Reference Range Interpretation Comments Glucose Lvl (test code = Glucose Lvl) 126 70-99 [facility]2019-03-04 07:49:00 Test Item Value Reference Range Interpretation Comments CO2 (test code = CO2) 24 24-32 [facility]HfvvxddDCQTRQAYJB3731-34-95 07:49:00 Test Item Value Reference Range Interpretation Comments Segs (test code = Segs) 86.1 45.0-75.0 [facility]YerthhyQGBMBJSKCH3659-30-54 07:49:00 Test Item Value Reference Range Interpretation Comments Basophils (test code = 0.4 See_Comment [Aut omated message] The Basophils) system which ge nerated this result tra nsmitted reference range : <=1.0. The reference r kunal was not used to int erpret this result as normal/abnormal . [facility]entonAmhndmdDVEOVSCXUK4393-26-10 07:49:00 Test Item Value Reference Range Interpretation Comments Neutrophils # (test code = Neutrophils 12.7 1.5-8.1 #) [facility]entonUzwkefuMPHEBYTQPJ3547-30-85 07:49:00 Test Item Value Reference Range Interpretation Comments Lymphocytes (test code = Lymphocytes) 6.3 20.0-40.0 [facility]entonUopsgqgSHAYFUDLKP0663-69-36 07:49:00 Test Item Value Reference Range Interpretation Comments Monocytes (test code = Monocytes) 7.2 2.0-12.0 [facility]entonQfnwneeSTZCAEWOVQ5784-63-06 07:49:00 Test Item Value Reference Range Interpretation Comments Lymphocytes # (test code = Lymphocytes 0.9 1.0-5.5 #) [facility]entonHevoezlCTIBGCIGOT5027-51-57 07:49:00 Test Item Value Reference Range Interpretation Comments Basophils # (test code 0.1 See_Comment [Aut omated message] The = Basophils #) system which generated this result tra nsmitted reference range : <=0.2. The reference r kunal was not used to int erpret this result as normal/abnormal . [facility]entonJbllwmrVUNNNVVBJI3364-30-19 07:49:00 Test Item Value Reference Range Interpretation Comments Monocytes # (test code 1.1 See_Comment [Aut omated message] The = Monocytes #) system which generated this result tra nsmitted reference range : <=0.8. The reference r kunal was not used to int erpret this result as normal/abnormal . [facility]entonVlnmalqJODVGUVVCE3915-80-10 07:49:00 Test Item Value Reference Range Interpretation Comments MPV (test code = MPV) 8.3 7.4-10.4 [facility]entonWiynznuJOHSHKJORF1475-30-23 07:49:00 Test Item Value Reference Range Interpretation Comments MCHC (test code = MCHC) 33.3 32.0-36.0 [facility] CenterLllijcsTOLYSKHHIN0285-97-67 07:49:00 Test Item Value Reference Range Interpretation Comments RDW (test code = RDW) 13.5 11.5-14.5 [facility] CenterGshyfwnKUIUSOHULR3742-04-47 07:49:00 Test Item Value Reference Range Interpretation Comments Platelet (test code = Platelet) 330 133-450 [facility] CenterRzngnziZMYVAAOYKN6720-69-60 07:49:00 Test Item Value Reference Range Interpretation Comments Hgb (test code = Hgb) 12.8 12.0-16.0 [facility]entonGqqtjhxCJSDJYZOYC1243-47-82 07:49:00 Test Item Value Reference Range Interpretation Comments Hct (test code = Hct) 38.4 36.0-48.0 [facility]entonEjzvlcdENAZKMNCLT1379-09-67 07:49:00 Test Item Value Reference Range Interpretation Comments MCV (test code = MCV) 88.1 80.0-98.0 [facility] CenterXuczmcaHXNPONAZOL1740-69-58 07:49:00 Test Item Value Reference Range Interpretation Comments MCH (test code = MCH) 29.4 pg 27.0-31.0 [facility] CenterPkapnbpSQQBRCLEJH4661-38-71 07:49:00 Test Item Value Reference Range Interpretation Comments WBC (test code = WBC) 14.7 3.7-10.4 [facility] CenterGcioeriWXWUQNVGPY9931-99-16 07:49:00 Test Item Value Reference Range Interpretation Comments RBC (test code = RBC) 4.36 4.20-5.40 [facility] CenterPARATHYROID [id number] 07:49:00 Test Item Value Reference Range Interpretation Comments Ca Ion WB (test code = Ca Ion WB) 1.15 1.05-1.25 [facility]annPAR[facility] OFUUHFD5900-41-76 07:49:00 Test Item Value Reference Range Interpretation Comments Ca Norm WB (test code = Ca Norm WB) 1.16 1.05-1.25 [facility] CenterCHEM YJLLF5619-50-58 07:49:00 Test Item Value Reference Range Interpretation Comments Phosphorus (test code = Phosphorus) 3.2 2.5-4.5 [facility] CenterIP Ghoster PSUOM7315-15-22 07:49:00 Test Item Value Reference Range Interpretation Comments Magnesium Lvl (test code = Magnesium 1.9 1.8-2.4 Lvl) [facility]2019-03-04 07:49:00 Test Item Value Reference Range Interpretation Comments eGFR (test code = eGFR) 81 [facility]2019-03-04 07:49:00 Test Item Value Reference Range Interpretation Comments AGAP (test code = AGAP) 10.9 10.0-20.0 [facility]2019-03-04 07:49:00 Test Item Value Reference Range Interpretation Comments Calcium Lvl (test code = Calcium Lvl) 8.5 8.5-10.5 [facility]2019-03-04 07:49:00 Test Item Value Reference Range Interpretation Comments Potassium Lvl (test code = Potassium 3.9 3.5-5.1 Lvl) [facility]2019-03-04 07:49:00 Test Item Value Reference Range Interpretation Comments Sodium Lvl (test code = Sodium Lvl) 142 135-145 [facility]2019-03-04 07:49:00 Test Item Value Reference Range Interpretation Comments Chloride Lvl (test code = Chloride Lvl) 111 95-109 [facility]2019-03-04 07:49:00 Test Item Value Reference Range Interpretation Comments Creatinine Lvl (test code = Creatinine 0.96 0.50-1.40 Lvl) [facility]2019-03-04 07:49:00 Test Item Value Reference Range Interpretation Comments BUN (test code = BUN) 17 7-22 [place] 485549-03-04 07:49:00 Test Item Value Reference Range Interpretation Comments Glucose Lvl (test code = Glucose Lvl) 126 70-99 [facility]2019-03-04 07:49:00 Test Item Value Reference Range Interpretation Comments CO2 (test code = CO2) 24 24-32 [id number] 07:49:00 Test Item Value Reference Range Interpretation Comments Segs (test code = Segs) 86.1 45.0-75.0 [id number] 07:49:00 Test Item Value Reference Range Interpretation Comments Basophils (test code = 0.4 See_Comment [Aut omated message] The Basophils) system which ge nerated this result tra nsmitted reference range : <=1.0. The reference r kunal was not used to int erpret this result as normal/abnormal . [facility]UankapvSAQAPQGRTI0424-55-11 07:49:00 Test Item Value Reference Range Interpretation Comments Neutrophils # (test code = Neutrophils 12.7 1.5-8.1 #) [facility]DutqcxxZTMEHGVRFF6147-17-61 07:49:00 Test Item Value Reference Range Interpretation Comments Lymphocytes (test code = Lymphocytes) 6.3 20.0-40.0 [facility]CgaxhyqSTSADPENTE1888-76-72 07:49:00 Test Item Value Reference Range Interpretation Comments Monocytes (test code = Monocytes) 7.2 2.0-12.0 [facility]VbdixzgMFXVCQOQSY4141-40-44 07:49:00 Test Item Value Reference Range Interpretation Comments Lymphocytes # (test code = Lymphocytes 0.9 1.0-5.5 #) [facility]EesfheiKWTVSJYJCH3877-30-20 07:49:00 Test Item Value Reference Range Interpretation Comments Basophils # (test code 0.1 See_Comment [Aut omated message] The = Basophils #) system which generated this result tra nsmitted reference range : <=0.2. The reference r kunal was not used to int erpret this result as normal/abnormal . [facility]entonTqgfcnyFGWJRHLNPZ9110-18-87 07:49:00 Test Item Value Reference Range Interpretation Comments Monocytes # (test code 1.1 See_Comment [Aut omated message] The = Monocytes #) system which generated this result tra nsmitted reference range : <=0.8. The reference r kunal was not used to int erpret this result as normal/abnormal . [facility]entonIycpybqCLLRPKQFVX1388-54-21 07:49:00 Test Item Value Reference Range Interpretation Comments MPV (test code = MPV) 8.3 7.4-10.4 [facility]entonAyahnzkNZTYPJNCCM3146-85-24 07:49:00 Test Item Value Reference Range Interpretation Comments MCHC (test code = MCHC) 33.3 32.0-36.0 [facility]entonCddfxrmSOHGHPKGEK9273-41-67 07:49:00 Test Item Value Reference Range Interpretation Comments RDW (test code = RDW) 13.5 11.5-14.5 [facility]EifjhfpCRQTAHUBUN4994-63-17 07:49:00 Test Item Value Reference Range Interpretation Comments Platelet (test code = Platelet) 330 133-450 [facility]OjztopeBIHQTAHDVT0894-69-98 07:49:00 Test Item Value Reference Range Interpretation Comments Hgb (test code = Hgb) 12.8 12.0-16.0 [facility]entonUvcajpmCMVWTHNMFB8054-93-34 07:49:00 Test Item Value Reference Range Interpretation Comments Hct (test code = Hct) 38.4 36.0-48.0 [facility]entonTmvmcerXUYFWEXNFB8147-83-79 07:49:00 Test Item Value Reference Range Interpretation Comments MCV (test code = MCV) 88.1 80.0-98.0 [facility]entonPlgfmocYXXAQWFIQX1160-27-10 07:49:00 Test Item Value Reference Range Interpretation Comments MCH (test code = MCH) 29.4 pg 27.0-31.0 [facility]ent[id number] 07:49:00 Test Item Value Reference Range Interpretation Comments WBC (test code = WBC) 14.7 3.7-10.4 [facility]entonG[id number] 07:49:00 Test Item Value Reference Range Interpretation Comments RBC (test code = RBC) 4.36 4.20-5.40 [facility]PAR[facility] [id number] 07:49:00 Test Item Value Reference Range Interpretation Comments Ca Ion WB (test code = Ca Ion WB) 1.15 1.05-1.25 [facility] [id number] 07:49:00 Test Item Value Reference Range Interpretation Comments Ca Norm WB (test code = Ca Norm WB) 1.16 1.05-1.25 [facility] CenterCHEM [id number] 07:49:00 Test Item Value Reference Range Interpretation Comments Phosphorus (test code = Phosphorus) 3.2 2.5-4.5 [facility]2019-03-04 07:49:00 Test Item Value Reference Range Interpretation Comments Magnesium Lvl (test code = Magnesium 1.9 1.8-2.4 Lvl) [facility]2019-03-04 07:49:00 Test Item Value Reference Range Interpretation Comments eGFR (test code = eGFR) 81 [facility]2019-03-04 07:49:00 Test Item Value Reference Range Interpretation Comments AGAP (test code = AGAP) 10.9 10.0-20.0 [facility]2019-03-04 07:49:00 Test Item Value Reference Range Interpretation Comments Calcium Lvl (test code = Calcium Lvl) 8.5 8.5-10.5 [facility]2019-03-04 07:49:00 Test Item Value Reference Range Interpretation Comments Potassium Lvl (test code = Potassium 3.9 3.5-5.1 Lvl) [facility]2019-03-04 07:49:00 Test Item Value Reference Range Interpretation Comments Sodium Lvl (test code = Sodium Lvl) 142 135-145 [facility]2019-03-04 07:49:00 Test Item Value Reference Range Interpretation Comments Chloride Lvl (test code = Chloride Lvl) 111 95-109 [facility]2019-03-04 07:49:00 Test Item Value Reference Range Interpretation Comments Creatinine Lvl (test code = Creatinine 0.96 0.50-1.40 Lvl) [facility]2019-03-04 07:49:00 Test Item Value Reference Range Interpretation Comments BUN (test code = BUN) 17 7-22 [place] 485549-03-04 07:49:00 Test Item Value Reference Range Interpretation Comments Glucose Lvl (test code = Glucose Lvl) 126 70-99 [facility]2019-03-04 07:49:00 Test Item Value Reference Range Interpretation Comments CO2 (test code = CO2) 24 24-32 [facility]FuqqnjyTOKHPEKLNR0046-31-05 07:49:00 Test Item Value Reference Range Interpretation Comments Segs (test code = Segs) 86.1 45.0-75.0 [facility]entonBzqneasICGYBPMNDJ8414-41-88 07:49:00 Test Item Value Reference Range Interpretation Comments Basophils (test code = 0.4 See_Comment [Aut omated message] The Basophils) system which ge nerated this result tra nsmitted reference range : <=1.0. The reference r kunal was not used to int erpret this result as normal/abnormal . [facility]entonXvtmtchBWFDHDGTEU0163-66-36 07:49:00 Test Item Value Reference Range Interpretation Comments Neutrophils # (test code = Neutrophils 12.7 1.5-8.1 #) [place] 726949-03-04 07:49:00 Test Item Value Reference Range Interpretation Comments Lymphocytes (test code = Lymphocytes) 6.3 20.0-40.0 [facility]entonYpsbygnRHNBKZNHFS4840-59-10 07:49:00 Test Item Value Reference Range Interpretation Comments Monocytes (test code = Monocytes) 7.2 2.0-12.0 [facility]entonFsojjhrOZUWGZUAHZ5041-59-17 07:49:00 Test Item Value Reference Range Interpretation Comments Lymphocytes # (test code = Lymphocytes 0.9 1.0-5.5 #) [facility]SpsphzzSJHVTKGWDE2655-23-09 07:49:00 Test Item Value Reference Range Interpretation Comments Basophils # (test code 0.1 See_Comment [Aut omated message] The = Basophils #) system which generated this result tra nsmitted reference range : <=0.2. The reference r kunal was not used to int erpret this result as normal/abnormal . [facility]entonHzmvwckUGHVAKUCNS5770-22-16 07:49:00 Test Item Value Reference Range Interpretation Comments Monocytes # (test code 1.1 See_Comment [Aut omated message] The = Monocytes #) system which generated this result tra nsmitted reference range : <=0.8. The reference r kunal was not used to int erpret this result as normal/abnormal . [facility]entonOugzqjrXRZVLKCRQI1734-09-52 07:49:00 Test Item Value Reference Range Interpretation Comments MPV (test code = MPV) 8.3 7.4-10.4 [facility]entonNqcvpkpNQOFDSBHHN2533-38-59 07:49:00 Test Item Value Reference Range Interpretation Comments MCHC (test code = MCHC) 33.3 32.0-36.0 [facility]entonQvyqkguBMYJYYPFNE2889-69-17 07:49:00 Test Item Value Reference Range Interpretation Comments RDW (test code = RDW) 13.5 11.5-14.5 [facility]entonFktsozwPOBDRIVCLF0033-93-12 07:49:00 Test Item Value Reference Range Interpretation Comments Platelet (test code = Platelet) 330 133-450 [facility]QrmzsyhELNHRVWMED7901-46-30 07:49:00 Test Item Value Reference Range Interpretation Comments Hgb (test code = Hgb) 12.8 12.0-16.0 [facility][id number] 07:49:00 Test Item Value Reference Range Interpretation Comments Hct (test code = Hct) 38.4 36.0-48.0 [facility]entonVgkdsbuGYVLVYRNLB5820-93-99 07:49:00 Test Item Value Reference Range Interpretation Comments MCV (test code = MCV) 88.1 80.0-98.0 [facility]entonPeuaghxNTBSZPWSPD8408-50-03 07:49:00 Test Item Value Reference Range Interpretation Comments MCH (test code = MCH) 29.4 pg 27.0-31.0 [facility]entonDyvttcsGACPIQHVVS2991-44-04 07:49:00 Test Item Value Reference Range Interpretation Comments WBC (test code = WBC) 14.7 3.7-10.4 [facility]entonBvwltdrCJFDZAFOLP3485-29-22 07:49:00 Test Item Value Reference Range Interpretation Comments RBC (test code = RBC) 4.36 4.20-5.40 [facility] [id number] 07:49:00 Test Item Value Reference Range Interpretation Comments Ca Ion WB (test code = Ca Ion WB) 1.15 1.05-1.25 [facility]2019-03-04 07:49:00 Test Item Value Reference Range Interpretation Comments Ca Norm WB (test code = Ca Norm WB) 1.16 1.05-1.25 [facility]2019-03-04 07:49:00 Test Item Value Reference Range Interpretation Comments Phosphorus (test code = Phosphorus) 3.2 2.5-4.5 [facility]2019-03-04 07:49:00 Test Item Value Reference Range Interpretation Comments Magnesium Lvl (test code = Magnesium 1.9 1.8-2.4 Lvl) [facility]2019-03-04 07:49:00 Test Item Value Reference Range Interpretation Comments eGFR (test code = eGFR) 81 [facility]2019-03-04 07:49:00 Test Item Value Reference Range Interpretation Comments AGAP (test code = AGAP) 10.9 10.0-20.0 [facility]annRANDOL[facility] [id number] 07:49:00 Test Item Value Reference Range Interpretation Comments Calcium Lvl (test code = Calcium Lvl) 8.5 8.5-10.5 [facility]2019-03-04 07:49:00 Test Item Value Reference Range Interpretation Comments Potassium Lvl (test code = Potassium 3.9 3.5-5.1 Lvl) [facility]annRANDOLPH [id number] 07:49:00 Test Item Value Reference Range Interpretation Comments Sodium Lvl (test code = Sodium Lvl) 142 135-145 [facility] CenterIP Ghoster [id number] 07:49:00 Test Item Value Reference Range Interpretation Comments Chloride Lvl (test code = Chloride Lvl) 111 95-109 [facility]IP [facility] [id number] 07:49:00 Test Item Value Reference Range Interpretation Comments Creatinine Lvl (test code = Creatinine 0.96 0.50-1.40 Lvl) [facility]2019-03-04 07:49:00 Test Item Value Reference Range Interpretation Comments BUN (test code = BUN) 17 7-22 [facility] HospitalHemp [facility] [place] [id number] 07:49:00 Test Item Value Reference Range Interpretation Comments Glucose Lvl (test code = Glucose Lvl) 126 70-99 [facility] CenterIP [facility] [id number] 07:49:00 Test Item Value Reference Range Interpretation Comments CO2 (test code = CO2) 24 24-32 [facility] HospitalChannel [facility]2019-03-03 18:27:00 Test Item Value Reference Range Interpretation Comments Troponin-I (test code no gt See_Comment [Auto mated message] The = Troponin-I) system which g enerated this result transmit matthew reference range : <=0.40. The reference r kunal was not used to interpr et this result as carmen l/abnormal. [facility]2019-03-03 18:27:00 Test Item Value Reference Range Interpretation Comments Troponin-I (test code no gt See_Comment [Auto mated message] The = Troponin-I) system which g enerated this result transmit matthew reference range : <=0.40. The reference r kunal was not used to interpr et this result as carmen l/abnormal. [facility]2019-03-03 18:27:00 Test Item Value Reference Range Interpretation Comments Troponin-I (test code no gt See_Comment [Auto mated message] The = Troponin-I) system which g enerated this result transmit matthew reference range : <=0.40. The reference r kunal was not used to interpr et this result as carmen l/abnormal. [facility]2019-03-03 18:27:00 Test Item Value Reference Range Interpretation Comments Troponin-I (test code no gt See_Comment [Auto mated message] The = Troponin-I) system which g enerated this result transmit matthew reference range : <=0.40. The reference r kunal was not used to interpr et this result as carmen l/abnormal. [facility] AlonannCARDIAC [id number] 18:27:00 Test Item Value Reference Range Interpretation Comments Troponin-I (test code no gt See_Comment [Auto mated message] The = Troponin-I) system which g enerated this result transmit matthew reference range : <=0.40. The reference r kunal was not used to interpr et this result as carmen l/abnormal. [facility] [id number] 15:59:00 Test Item Value Reference Range Interpretation Comments UA Bacteria (test code = UA Occasional /HPF Bacteria) [facility] [id number] 15:59:00 Test Item Value Reference Range Interpretation Comments UA RBC (test code = 0-2 /HPF See_Comment [Automa matthew message] The UA RBC) system which ge nerated this result tra nsmitted reference range : <=2. The reference range was not used to interpr et this result as carmen l/abnormal. [facility] [id number] 15:59:00 Test Item Value Reference Range Interpretation Comments UA WBC (test code = UA WBC) 0-2 /HPF [facility] AND [id number] 15:59:00 Test Item Value Reference Range Interpretation Comments UA Sq Epi (test code = UA Sq Moderate /LPF Epi) [facility] AND [id number] 15:59:00 Test Item Value Reference Range Interpretation Comments UA Bili (test code = Negative *NA*(10/08/18 UA Bili) 9:59 AM) [facility] [id number] 15:59:00 Test Item Value Reference Range Interpretation Comments UA Glucose (test code Negative (10/08/18 9:59 = UA Glucose) AM) [facility] [id number] 15:59:00 Test Item Value Reference Range Interpretation Comments UA Ketones (test code Negative *NA*(10/08/18 = UA Ketones) 9:59 AM) [facility] [id number] 15:59:00 Test Item Value Reference Range Interpretation Comments UA Spec Grav (test code = UA Spec 1.010 1 Grav) [facility] AND [id number] 15:59:00 Test Item Value Reference Range Interpretation Comments UA pH (test code = UA pH) 6.0 1 5.0-8.0 [facility] AND [id number] 15:59:00 Test Item Value Reference Range Interpretation Comments UA Color (test code = Yellow *NA*(10/08/18 9:59 UA Color) AM) [facility] AND [id number] 15:59:00 Test Item Value Reference Range Interpretation Comments UA Turbidity (test code = Clear (10/08/18 9:59 UA Turbidity) AM) [facility] AND [id number] 15:59:00 Test Item Value Reference Range Interpretation Comments UA Nitrite (test code Negative (10/08/18 9:59 = UA Nitrite) AM) [facility] AND [id number] 15:59:00 Test Item Value Reference Range Interpretation Comments UA Protein (test code Negative (10/08/18 9:59 = UA Protein) AM) [facility] AND [id number] 15:59:00 Test Item Value Reference Range Interpretation Comments UA Blood (test code = Small *ABN*(10/08/18 UA Blood) 9:59 AM) [facility] AND [id number] 15:59:00 Test Item Value Reference Range Interpretation Comments UA Leuk Est (test Negative (10/08/18 9:59 code = UA Leuk Est) AM) [facility] AND [id number] 15:59:00 Test Item Value Reference Range Interpretation Comments UA Urobilinogen (test code = UA 0.2 0.1-1.0 Urobilinogen) [facility] AND [id number] 15:59:00 Test Item Value Reference Range Interpretation Comments UA Bacteria (test code = UA Occasional /HPF Bacteria) [facility] AND [id number] 15:59:00 Test Item Value Reference Range Interpretation Comments UA RBC (test code = 0-2 /HPF See_Comment [Automa matthew message] The UA RBC) system which ge nerated this result tra nsmitted reference range : <=2. The reference range was not used to interpr et this result as carmen l/abnormal. [facility] AND [id number] 15:59:00 Test Item Value Reference Range Interpretation Comments UA WBC (test code = UA WBC) 0-2 /HPF [facility] AND [id number] 15:59:00 Test Item Value Reference Range Interpretation Comments UA Sq Epi (test code = UA Sq Moderate /LPF Epi) [facility] AND [id number] 15:59:00 Test Item Value Reference Range Interpretation Comments UA Bili (test code = Negative *NA*(10/08/18 UA Bili) 9:59 AM) [facility] AND [id number] 15:59:00 Test Item Value Reference Range Interpretation Comments UA Glucose (test code Negative (10/08/18 9:59 = UA Glucose) AM) [facility] AND [id number] 15:59:00 Test Item Value Reference Range Interpretation Comments UA Ketones (test code Negative *NA*(10/08/18 = UA Ketones) 9:59 AM) [facility] AND [id number] 15:59:00 Test Item Value Reference Range Interpretation Comments UA Spec Grav (test code = UA Spec 1.010 1 Grav) [facility] AND [id number] 15:59:00 Test Item Value Reference Range Interpretation Comments UA pH (test code = UA pH) 6.0 1 5.0-8.0 [facility] AND [id number] 15:59:00 Test Item Value Reference Range Interpretation Comments UA Color (test code = Yellow *NA*(10/08/18 9:59 UA Color) AM) [facility] AND [id number] 15:59:00 Test Item Value Reference Range Interpretation Comments UA Turbidity (test code = Clear (10/08/18 9:59 UA Turbidity) AM) [facility] AND [id number] 15:59:00 Test Item Value Reference Range Interpretation Comments UA Nitrite (test code Negative (10/08/18 9:59 = UA Nitrite) AM) [facility] AND [id number] 15:59:00 Test Item Value Reference Range Interpretation Comments UA Protein (test code Negative (10/08/18 9:59 = UA Protein) AM) [facility] AND [id number] 15:59:00 Test Item Value Reference Range Interpretation Comments UA Blood (test code = Small *ABN*(10/08/18 UA Blood) 9:59 AM) [facility] AND [id number] 15:59:00 Test Item Value Reference Range Interpretation Comments UA Leuk Est (test Negative (10/08/18 9:59 code = UA Leuk Est) AM) [facility] AND [id number] 15:59:00 Test Item Value Reference Range Interpretation Comments UA Urobilinogen (test code = UA 0.2 0.1-1.0 Urobilinogen) [facility] AND [id number] 15:59:00 Test Item Value Reference Range Interpretation Comments UA Bacteria (test code = UA Occasional /HPF Bacteria) [facility] AND [id number] 15:59:00 Test Item Value Reference Range Interpretation Comments UA RBC (test code = 0-2 /HPF See_Comment [Automa matthew message] The UA RBC) system which ge nerated this result tra nsmitted reference range : <=2. The reference range was not used to interpr et this result as carmen l/abnormal. [facility] AND [id number] 15:59:00 Test Item Value Reference Range Interpretation Comments UA WBC (test code = UA WBC) 0-2 /HPF [facility] AND [id number] 15:59:00 Test Item Value Reference Range Interpretation Comments UA Sq Epi (test code = UA Sq Moderate /LPF Epi) [facility] AND [id number] 15:59:00 Test Item Value Reference Range Interpretation Comments UA Bili (test code = Negative *NA*(10/08/18 UA Bili) 9:59 AM) [facility] AND [id number] 15:59:00 Test Item Value Reference Range Interpretation Comments UA Glucose (test code Negative (10/08/18 9:59 = UA Glucose) AM) [facility] AND [id number] 15:59:00 Test Item Value Reference Range Interpretation Comments UA Ketones (test code Negative *NA*(10/08/18 = UA Ketones) 9:59 AM) [facility] AND [id number] 15:59:00 Test Item Value Reference Range Interpretation Comments UA Spec Grav (test code = UA Spec 1.010 1 Grav) [facility] AND [id number] 15:59:00 Test Item Value Reference Range Interpretation Comments UA pH (test code = UA pH) 6.0 1 5.0-8.0 [facility] AND [id number] 15:59:00 Test Item Value Reference Range Interpretation Comments UA Color (test code = Yellow *NA*(10/08/18 9:59 UA Color) AM) [facility] AND [id number] 15:59:00 Test Item Value Reference Range Interpretation Comments UA Turbidity (test code = Clear (10/08/18 9:59 UA Turbidity) AM) [facility] AND [id number] 15:59:00 Test Item Value Reference Range Interpretation Comments UA Nitrite (test code Negative (10/08/18 9:59 = UA Nitrite) AM) [facility] AND [id number] 15:59:00 Test Item Value Reference Range Interpretation Comments UA Protein (test code Negative (10/08/18 9:59 = UA Protein) AM) [facility] AND [id number] 15:59:00 Test Item Value Reference Range Interpretation Comments UA Blood (test code = Small *ABN*(10/08/18 UA Blood) 9:59 AM) [facility] AND [id number] 15:59:00 Test Item Value Reference Range Interpretation Comments UA Leuk Est (test Negative (10/08/18 9:59 code = UA Leuk Est) AM) [facility] AND [id number] 15:59:00 Test Item Value Reference Range Interpretation Comments UA Urobilinogen (test code = UA 0.2 0.1-1.0 Urobilinogen) [facility] AND [id number] 15:59:00 Test Item Value Reference Range Interpretation Comments UA Bacteria (test code = UA Occasional /HPF Bacteria) [facility] AND [id number] 15:59:00 Test Item Value Reference Range Interpretation Comments UA RBC (test code = 0-2 /HPF See_Comment [Automa matthew message] The UA RBC) system which ge nerated this result tra nsmitted reference range : <=2. The reference range was not used to interpr et this result as carmen l/abnormal. [facility] AND [id number] 15:59:00 Test Item Value Reference Range Interpretation Comments UA WBC (test code = UA WBC) 0-2 /HPF [facility] AND [id number] 15:59:00 Test Item Value Reference Range Interpretation Comments UA Sq Epi (test code = UA Sq Moderate /LPF Epi) [facility] AND [id number] 15:59:00 Test Item Value Reference Range Interpretation Comments UA Bili (test code = Negative *NA*(10/08/18 UA Bili) 9:59 AM) [facility] AND [id number] 15:59:00 Test Item Value Reference Range Interpretation Comments UA Glucose (test code Negative (10/08/18 9:59 = UA Glucose) AM) [facility] AND [id number] 15:59:00 Test Item Value Reference Range Interpretation Comments UA Ketones (test code Negative *NA*(10/08/18 = UA Ketones) 9:59 AM) [facility] AND [id number] 15:59:00 Test Item Value Reference Range Interpretation Comments UA Spec Grav (test code = UA Spec 1.010 1 Grav) [facility] AND [id number] 15:59:00 Test Item Value Reference Range Interpretation Comments UA pH (test code = UA pH) 6.0 1 5.0-8.0 [facility] AND [id number] 15:59:00 Test Item Value Reference Range Interpretation Comments UA Color (test code = Yellow *NA*(10/08/18 9:59 UA Color) AM) [facility] AND [id number] 15:59:00 Test Item Value Reference Range Interpretation Comments UA Turbidity (test code = Clear (10/08/18 9:59 UA Turbidity) AM) [facility] AND [id number] 15:59:00 Test Item Value Reference Range Interpretation Comments UA Nitrite (test code Negative (10/08/18 9:59 = UA Nitrite) AM) [facility] AND [id number] 15:59:00 Test Item Value Reference Range Interpretation Comments UA Protein (test code Negative (10/08/18 9:59 = UA Protein) AM) [facility] AND [id number] 15:59:00 Test Item Value Reference Range Interpretation Comments UA Blood (test code = Small *ABN*(10/08/18 UA Blood) 9:59 AM) [facility] AND [id number] 15:59:00 Test Item Value Reference Range Interpretation Comments UA Leuk Est (test Negative (10/08/18 9:59 code = UA Leuk Est) AM) [facility] AND [id number] 15:59:00 Test Item Value Reference Range Interpretation Comments UA Urobilinogen (test code = UA 0.2 0.1-1.0 Urobilinogen) [facility] AND [id number] 15:59:00 Test Item Value Reference Range Interpretation Comments UA Bacteria (test code = UA Occasional /HPF Bacteria) [facility] AND [id number] 15:59:00 Test Item Value Reference Range Interpretation Comments UA RBC (test code = 0-2 /HPF See_Comment [Automa matthew message] The UA RBC) system which ge nerated this result tra nsmitted reference range : <=2. The reference range was not used to interpr et this result as carmen l/abnormal. [facility] AND [id number] 15:59:00 Test Item Value Reference Range Interpretation Comments UA WBC (test code = UA WBC) 0-2 /HPF [facility] AND [id number] 15:59:00 Test Item Value Reference Range Interpretation Comments UA Sq Epi (test code = UA Sq Moderate /LPF Epi) [facility] AND [id number] 15:59:00 Test Item Value Reference Range Interpretation Comments UA Bili (test code = Negative *NA*(10/08/18 UA Bili) 9:59 AM) [facility] AND [id number] 15:59:00 Test Item Value Reference Range Interpretation Comments UA Glucose (test code Negative (10/08/18 9:59 = UA Glucose) AM) [facility] AND [id number] 15:59:00 Test Item Value Reference Range Interpretation Comments UA Ketones (test code Negative *NA*(10/08/18 = UA Ketones) 9:59 AM) [facility] AND [id number] 15:59:00 Test Item Value Reference Range Interpretation Comments UA Spec Grav (test code = UA Spec 1.010 1 Grav) [facility] AND [id number] 15:59:00 Test Item Value Reference Range Interpretation Comments UA pH (test code = UA pH) 6.0 1 5.0-8.0 [facility] AND [id number] 15:59:00 Test Item Value Reference Range Interpretation Comments UA Color (test code = Yellow *NA*(10/08/18 9:59 UA Color) AM) [facility] AND [id number] 15:59:00 Test Item Value Reference Range Interpretation Comments UA Turbidity (test code = Clear (10/08/18 9:59 UA Turbidity) AM) [facility] AND [id number] 15:59:00 Test Item Value Reference Range Interpretation Comments UA Nitrite (test code Negative (10/08/18 9:59 = UA Nitrite) AM) [facility] AND [id number] 15:59:00 Test Item Value Reference Range Interpretation Comments UA Protein (test code Negative (10/08/18 9:59 = UA Protein) AM) [facility] AND [id number] 15:59:00 Test Item Value Reference Range Interpretation Comments UA Blood (test code = Small *ABN*(10/08/18 UA Blood) 9:59 AM) [facility] AND [id number] 15:59:00 Test Item Value Reference Range Interpretation Comments UA Leuk Est (test Negative (10/08/18 9:59 code = UA Leuk Est) AM) [facility] AND [id number] 15:59:00 Test Item Value Reference Range Interpretation Comments UA Urobilinogen (test code = UA 0.2 0.1-1.0 Urobilinogen) [id number] 15:21:00 Test Item Value Reference Range Interpretation Comments PTT (test code = PTT) 36.5 s 22.9-35.8 [id number] 15:21:00 Test Item Value Reference Range Interpretation Comments PT (test code = PT) 13.3 s 12.0-14.7 [id number] 15:21:00 Test Item Value Reference Range Interpretation Comments INR (test code = INR) 1.03 1 0.85-1.17 [id number] 15:21:00 Test Item Value Reference Range Interpretation Comments Split Point Rapid (test code = Split 0.6 min Point Rapid) [id number] 15:21:00 Test Item Value Reference Range Interpretation Comments R-time Rapid (test code = R-time 0.7 min 0.4-0.7 Rapid) [id number] 15:21:00 Test Item Value Reference Range Interpretation Comments ACT (TEG) Rapid (test code = ACT (TEG) 113 s 86-118 Rapid) [id number] 15:21:00 Test Item Value Reference Range Interpretation Comments G-value Rapid (test code = G-value 15.0 5.0-11.6 Rapid) [id number] 15:21:00 Test Item Value Reference Range Interpretation Comments K-time Rapid (test code = K-time 0.8 min 0.6-2.3 Rapid) [id number] 15:21:00 Test Item Value Reference Range Interpretation Comments Estimated % Lysis Rapid 0.3 See_Comment [Au tomated message] The (test code = Estimated syste m which generated % Lysis Rapid) this result t ransmitted reference range : <=7.5. The reference r kunal was not used to int erpret this result as normal/abnormal . [id number] 15:21:00 Test Item Value Reference Range Interpretation Comments Angle Rapid (test code = Angle 79 degrees 64-80 Rapid) [facility]entonMbbdotfFCKBBSKNGR3005-06-97 15:21:00 Test Item Value Reference Range Interpretation Comments Max Amplitude Rapid (test code = Max 75 mm 52-71 Amplitude Rapid) [id number] 15:21:00 Test Item Value Reference Range Interpretation Comments PTT (test code = PTT) 36.5 s 22.9-35.8 [id number] 15:21:00 Test Item Value Reference Range Interpretation Comments PT (test code = PT) 13.3 s 12.0-14.7 [place] [id number] 15:21:00 Test Item Value Reference Range Interpretation Comments INR (test code = INR) 1.03 1 0.85-1.17 [id number] 15:21:00 Test Item Value Reference Range Interpretation Comments Split Point Rapid (test code = Split 0.6 min Point Rapid) [facility]ent[id number] 15:21:00 Test Item Value Reference Range Interpretation Comments R-time Rapid (test code = R-time 0.7 min 0.4-0.7 Rapid) [id number] 15:21:00 Test Item Value Reference Range Interpretation Comments ACT (TEG) Rapid (test code = ACT (TEG) 113 s 86-118 Rapid) [id number] 15:21:00 Test Item Value Reference Range Interpretation Comments G-value Rapid (test code = G-value 15.0 5.0-11.6 Rapid) [id number] 15:21:00 Test Item Value Reference Range Interpretation Comments K-time Rapid (test code = K-time 0.8 min 0.6-2.3 Rapid) [facility]ent[id number] 15:21:00 Test Item Value Reference Range Interpretation Comments Estimated % Lysis Rapid 0.3 See_Comment [Au tomated message] The (test code = Estimated syste m which generated % Lysis Rapid) this result t ransmitted reference range : <=7.5. The reference r kunal was not used to int erpret this result as normal/abnormal . [facility]entonMnuqtnqTYNKSNIHET0777-05-71 15:21:00 Test Item Value Reference Range Interpretation Comments Angle Rapid (test code = Angle 79 degrees 64-80 Rapid) [id number] 15:21:00 Test Item Value Reference Range Interpretation Comments Max Amplitude Rapid (test code = Max 75 mm 52-71 Amplitude Rapid) [facility]ent[id number] 15:21:00 Test Item Value Reference Range Interpretation Comments PTT (test code = PTT) 36.5 s 22.9-35.8 [id number] 15:21:00 Test Item Value Reference Range Interpretation Comments PT (test code = PT) 13.3 s 12.0-14.7 [place] [id number] 15:21:00 Test Item Value Reference Range Interpretation Comments INR (test code = INR) 1.03 1 0.85-1.17 [id number] 15:21:00 Test Item Value Reference Range Interpretation Comments Split Point Rapid (test code = Split 0.6 min Point Rapid) [id number] 15:21:00 Test Item Value Reference Range Interpretation Comments R-time Rapid (test code = R-time 0.7 min 0.4-0.7 Rapid) [id number] 15:21:00 Test Item Value Reference Range Interpretation Comments ACT (TEG) Rapid (test code = ACT (TEG) 113 s 86-118 Rapid) [id number] 15:21:00 Test Item Value Reference Range Interpretation Comments G-value Rapid (test code = G-value 15.0 5.0-11.6 Rapid) [id number] 15:21:00 Test Item Value Reference Range Interpretation Comments K-time Rapid (test code = K-time 0.8 min 0.6-2.3 Rapid) [facility]ent[id number] 15:21:00 Test Item Value Reference Range Interpretation Comments Estimated % Lysis Rapid 0.3 See_Comment [Au tomated message] The (test code = Estimated syste m which generated % Lysis Rapid) this result t ransmitted reference range : <=7.5. The reference r kunal was not used to int erpret this result as normal/abnormal . [id number] 15:21:00 Test Item Value Reference Range Interpretation Comments Angle Rapid (test code = Angle 79 degrees 64-80 Rapid) [facility]entonKscqysbRZHAHQCVPI0617-00-02 15:21:00 Test Item Value Reference Range Interpretation Comments Max Amplitude Rapid (test code = Max 75 mm 52-71 Amplitude Rapid) [facility]ent[id number] 15:21:00 Test Item Value Reference Range Interpretation Comments PTT (test code = PTT) 36.5 s 22.9-35.8 [facility][id number] 15:21:00 Test Item Value Reference Range Interpretation Comments PT (test code = PT) 13.3 s 12.0-14.7 [facility]ent[id number] 15:21:00 Test Item Value Reference Range Interpretation Comments INR (test code = INR) 1.03 1 0.85-1.17 [facility]entonRzcigcvRAPEIXNFEB1506-99-01 15:21:00 Test Item Value Reference Range Interpretation Comments Split Point Rapid (test code = Split 0.6 min Point Rapid) [id number] 15:21:00 Test Item Value Reference Range Interpretation Comments R-time Rapid (test code = R-time 0.7 min 0.4-0.7 Rapid) [facility][id number] 15:21:00 Test Item Value Reference Range Interpretation Comments ACT (TEG) Rapid (test code = ACT (TEG) 113 s 86-118 Rapid) [id number] 15:21:00 Test Item Value Reference Range Interpretation Comments G-value Rapid (test code = G-value 15.0 5.0-11.6 Rapid) [id number] 15:21:00 Test Item Value Reference Range Interpretation Comments K-time Rapid (test code = K-time 0.8 min 0.6-2.3 Rapid) [facility]ent[id number] 15:21:00 Test Item Value Reference Range Interpretation Comments Estimated % Lysis Rapid 0.3 See_Comment [Au tomated message] The (test code = Estimated syste m which generated % Lysis Rapid) this result t ransmitted reference range : <=7.5. The reference r kunal was not used to int erpret this result as normal/abnormal . [facility][id number] 15:21:00 Test Item Value Reference Range Interpretation Comments Angle Rapid (test code = Angle 79 degrees 64-80 Rapid) [facility]entonSokkilnPJSYRKUCYY2497-23-10 15:21:00 Test Item Value Reference Range Interpretation Comments Max Amplitude Rapid (test code = Max 75 mm 52-71 Amplitude Rapid) [facility]ent[id number] 15:21:00 Test Item Value Reference Range Interpretation Comments PTT (test code = PTT) 36.5 s 22.9-35.8 [facility]entonIesaarlITCYCGQLFJ1514-43-05 15:21:00 Test Item Value Reference Range Interpretation Comments PT (test code = PT) 13.3 s 12.0-14.7 [facility]entonZwxydgsBYBTOCIMIE3025-17-99 15:21:00 Test Item Value Reference Range Interpretation Comments INR (test code = INR) 1.03 1 0.85-1.17 [facility]entonWewniquHBRMRUYEEO6079-02-38 15:21:00 Test Item Value Reference Range Interpretation Comments Split Point Rapid (test code = Split 0.6 min Point Rapid) [id number] 15:21:00 Test Item Value Reference Range Interpretation Comments R-time Rapid (test code = R-time 0.7 min 0.4-0.7 Rapid) [facility]entonTfqxgweXVHOSNVJVT5612-85-60 15:21:00 Test Item Value Reference Range Interpretation Comments ACT (TEG) Rapid (test code = ACT (TEG) 113 s 86-118 Rapid) [facility]entonKhjarjjVOQCRHZXNP3533-04-45 15:21:00 Test Item Value Reference Range Interpretation Comments G-value Rapid (test code = G-value 15.0 5.0-11.6 Rapid) [facility][id number] 15:21:00 Test Item Value Reference Range Interpretation Comments K-time Rapid (test code = K-time 0.8 min 0.6-2.3 Rapid) [facility]ent[id number] 15:21:00 Test Item Value Reference Range Interpretation Comments Estimated % Lysis Rapid 0.3 See_Comment [Au tomated message] The (test code = Estimated syste m which generated % Lysis Rapid) this result t ransmitted reference range : <=7.5. The reference r kunal was not used to int erpret this result as normal/abnormal . [facility][id number] 15:21:00 Test Item Value Reference Range Interpretation Comments Angle Rapid (test code = Angle 79 degrees 64-80 Rapid) [facility]entonDuabowaIPERAZHYEF5356-62-10 15:21:00 Test Item Value Reference Range Interpretation Comments Max Amplitude Rapid (test code = Max 75 mm 52-71 Amplitude Rapid) [facility] [id number] 15:20:00 Test Item Value Reference Range Interpretation Comments ABO/Rh (test code = ABO/Rh) O POS [facility] [id number] 15:20:00 Test Item Value Reference Range Interpretation Comments Antibody Scrn (test Negative (10/08/18 9:20 code = Antibody Scrn) AM) [facility] [employer] [id number] 15:20:00 Test Item Value Reference Range Interpretation Comments ABO/Rh (test code = ABO/Rh) O POS [facility] [employer] [id number] 15:20:00 Test Item Value Reference Range Interpretation Comments Antibody Scrn (test Negative (10/08/18 9:20 code = Antibody Scrn) AM) [facility] [employer] [id number] 15:20:00 Test Item Value Reference Range Interpretation Comments ABO/Rh (test code = ABO/Rh) O POS [facility] [employer] [id number] 15:20:00 Test Item Value Reference Range Interpretation Comments Antibody Scrn (test Negative (10/08/18 9:20 code = Antibody Scrn) AM) [facility] [employer] [id number] 15:20:00 Test Item Value Reference Range Interpretation Comments ABO/Rh (test code = ABO/Rh) O POS [facility] [employer] [id number] 15:20:00 Test Item Value Reference Range Interpretation Comments Antibody Scrn (test Negative (10/08/18 9:20 code = Antibody Scrn) AM) [facility] [employer] [id number] 15:20:00 Test Item Value Reference Range Interpretation Comments ABO/Rh (test code = ABO/Rh) O POS [facility] [employer] [id number] 15:20:00 Test Item Value Reference Range Interpretation Comments Antibody Scrn (test Negative (10/08/18 9:20 code = Antibody Scrn) AM) [facility] [employer]uldronCARDIAC [id number] 15:18:00 Test Item Value Reference Range Interpretation Comments Troponin-I (test code no gt See_Comment [Auto mated message] The = Troponin-I) system which g enerated this result transmit matthew reference range : <=0.40. The reference r kunal was not used to interpr et this result as carmen l/abnormal. [employer] SystemsCHEM [id number] 15:18:00 Test Item Value Reference Range Interpretation Comments Phosphorus (test code = Phosphorus) 3.9 2.5-4.5 [facility]2019-03-03 15:18:00 Test Item Value Reference Range Interpretation Comments Magnesium Lvl (test code = Magnesium 1.9 1.8-2.4 Lvl) [facility] [id number] 15:18:00 Test Item Value Reference Range Interpretation Comments Lactic Acid Lvl (test code = Lactic 0.8 0.5-2.2 Acid Lvl) [id number] 15:18:00 Test Item Value Reference Range Interpretation Comments Basophils # (test code 0.1 See_Comment [Aut omated message] The = Basophils #) system which generated this result tra nsmitted reference range : <=0.2. The reference r kunal was not used to int erpret this result as normal/abnormal . [id number] 15:18:00 Test Item Value Reference Range Interpretation Comments Eosinophils # (test code 0.1 See_Comment [A utomated message] The = Eosinophils #) system whic h generated this result tra nsmitted reference range : <=0.5. The reference r kunal was not used to int erpret this result as normal/abnormal . [facility]ent[id number] 15:18:00 Test Item Value Reference Range Interpretation Comments Eosinophils (test code = 1.8 See_Comment [A utomated message] The Eosinophils) system which ge nerated this result tra nsmitted reference range : <=4.0. The reference r kunal was not used to int erpret this result as normal/abnormal . [facility] [id number] 15:18:00 Test Item Value Reference Range Interpretation Comments Troponin-I (test code no gt See_Comment [Auto mated message] The = Troponin-I) system which g enerated this result transmit matthew reference range : <=0.40. The reference r kunal was not used to interpr et this result as carmen l/abnormal. [facility] [id number] 15:18:00 Test Item Value Reference Range Interpretation Comments Phosphorus (test code = Phosphorus) 3.9 2.5-4.5 [facility]2019-03-03 15:18:00 Test Item Value Reference Range Interpretation Comments Magnesium Lvl (test code = Magnesium 1.9 1.8-2.4 Lvl) [facility] [id number] 15:18:00 Test Item Value Reference Range Interpretation Comments Lactic Acid Lvl (test code = Lactic 0.8 0.5-2.2 Acid Lvl) [id number] 15:18:00 Test Item Value Reference Range Interpretation Comments Basophils # (test code 0.1 See_Comment [Aut omated message] The = Basophils #) system which generated this result tra nsmitted reference range : <=0.2. The reference r kunal was not used to int erpret this result as normal/abnormal . [facility][id number] 15:18:00 Test Item Value Reference Range Interpretation Comments Eosinophils # (test code 0.1 See_Comment [A utomated message] The = Eosinophils #) system whic h generated this result tra nsmitted reference range : <=0.5. The reference r kunal was not used to int erpret this result as normal/abnormal . [facility]entonEkdcgwxELPJGUZCIT2212-10-64 15:18:00 Test Item Value Reference Range Interpretation Comments Eosinophils (test code = 1.8 See_Comment [A utomated message] The Eosinophils) system which ge nerated this result tra nsmitted reference range : <=4.0. The reference r kunal was not used to int erpret this result as normal/abnormal . [facility] [id number] 15:18:00 Test Item Value Reference Range Interpretation Comments Troponin-I (test code no gt See_Comment [Auto mated message] The = Troponin-I) system which g enerated this result transmit matthew reference range : <=0.40. The reference r kunal was not used to interpr et this result as carmen l/abnormal. [facility] [id number] 15:18:00 Test Item Value Reference Range Interpretation Comments Phosphorus (test code = Phosphorus) 3.9 2.5-4.5 [facility] [id number] 15:18:00 Test Item Value Reference Range Interpretation Comments Magnesium Lvl (test code = Magnesium 1.9 1.8-2.4 Lvl) [facility] [id number] 15:18:00 Test Item Value Reference Range Interpretation Comments Lactic Acid Lvl (test code = Lactic 0.8 0.5-2.2 Acid Lvl) [facility] [id number] 15:18:00 Test Item Value Reference Range Interpretation Comments Basophils # (test code 0.1 See_Comment [Aut omated message] The = Basophils #) system which generated this result tra nsmitted reference range : <=0.2. The reference r kunal was not used to int erpret this result as normal/abnormal . [id number] 15:18:00 Test Item Value Reference Range Interpretation Comments Eosinophils # (test code 0.1 See_Comment [A utomated message] The = Eosinophils #) system whic h generated this result tra nsmitted reference range : <=0.5. The reference r kunal was not used to int erpret this result as normal/abnormal . [id number] 15:18:00 Test Item Value Reference Range Interpretation Comments Eosinophils (test code = 1.8 See_Comment [A utomated message] The Eosinophils) system which ge nerated this result tra nsmitted reference range : <=4.0. The reference r kunal was not used to int erpret this result as normal/abnormal . [facility] [id number] 15:18:00 Test Item Value Reference Range Interpretation Comments Troponin-I (test code no gt See_Comment [Auto mated message] The = Troponin-I) system which g enerated this result transmit matthew reference range : <=0.40. The reference r kunal was not used to interpr et this result as carmen l/abnormal. [facility] [place] [id number] 15:18:00 Test Item Value Reference Range Interpretation Comments Phosphorus (test code = Phosphorus) 3.9 2.5-4.5 [facility] [place] [id number] 15:18:00 Test Item Value Reference Range Interpretation Comments Magnesium Lvl (test code = Magnesium 1.9 1.8-2.4 Lvl) [facility] [id number] 15:18:00 Test Item Value Reference Range Interpretation Comments Lactic Acid Lvl (test code = Lactic 0.8 0.5-2.2 Acid Lvl) [id number] 15:18:00 Test Item Value Reference Range Interpretation Comments Basophils # (test code 0.1 See_Comment [Aut omated message] The = Basophils #) system which generated this result tra nsmitted reference range : <=0.2. The reference r kunal was not used to int erpret this result as normal/abnormal . [facility] [id number] 15:18:00 Test Item Value Reference Range Interpretation Comments Eosinophils # (test code 0.1 See_Comment [A utomated message] The = Eosinophils #) system whic h generated this result tra nsmitted reference range : <=0.5. The reference r kunal was not used to int erpret this result as normal/abnormal . [facility][id number] 15:18:00 Test Item Value Reference Range Interpretation Comments Eosinophils (test code = 1.8 See_Comment [A utomated message] The Eosinophils) system which ge nerated this result tra nsmitted reference range : <=4.0. The reference r kunal was not used to int erpret this result as normal/abnormal . [facility] [id number] 15:18:00 Test Item Value Reference Range Interpretation Comments Troponin-I (test code no gt See_Comment [Auto mated message] The = Troponin-I) system which g enerated this result transmit matthew reference range : <=0.40. The reference r kunal was not used to interpr et this result as carmen l/abnormal. [facility] CenterIP [facility] [id number] 15:18:00 Test Item Value Reference Range Interpretation Comments Phosphorus (test code = Phosphorus) 3.9 2.5-4.5 [facility] [id number] 15:18:00 Test Item Value Reference Range Interpretation Comments Magnesium Lvl (test code = Magnesium 1.9 1.8-2.4 Lvl) [facility] [id number] 15:18:00 Test Item Value Reference Range Interpretation Comments Lactic Acid Lvl (test code = Lactic 0.8 0.5-2.2 Acid Lvl) [id number] 15:18:00 Test Item Value Reference Range Interpretation Comments Basophils # (test code 0.1 See_Comment [Aut omated message] The = Basophils #) system which generated this result tra nsmitted reference range : <=0.2. The reference r kunal was not used to int erpret this result as normal/abnormal . [id number] 15:18:00 Test Item Value Reference Range Interpretation Comments Eosinophils # (test code 0.1 See_Comment [A utomated message] The = Eosinophils #) system whic h generated this result tra nsmitted reference range : <=0.5. The reference r kunal was not used to int erpret this result as normal/abnormal . [id number] 15:18:00 Test Item Value Reference Range Interpretation Comments Eosinophils (test code = 1.8 See_Comment [A utomated message] The Eosinophils) system which ge nerated this result tra nsmitted reference range : <=4.0. The reference r kunal was not used to int erpret this result as normal/abnormal . [facility]
[2022-09-14 14:28] LABS: Absolute Lymphocytes (CBC) 1.7 K/uL (0.7-4.9); Hematocrit 39.5 % (36.0-45.0); Lymphocytes % 23.3 % (15.3-44.8); MCV 87.9 fL (80-100); MPV 7.7 fL (7.6-11.3)
--- NOTE | 2022-09-14 14:43 | RAD REPORT ---
EXAM DESCRIPTION: CT - Abdomen Pelvis Wo Contrast - 09/14/2022 2:33 pm CLINICAL HISTORY: Abdominal pain. ABD PAIN COMPARISON: Stone Protocol dated 08/24/2022 TECHNIQUE: CT imaging of the abdomen and pelvis was performed without contrast. Solid organ, bowel a nd vascular assessment is limited due to lack of IV and oral contrast. All CT scans are performed using dose optimization technique as appropriate and may include automated exposure control or mA/KV adjustment according to patient size. FINDINGS: The lower lung callejas are clear. The liver, spleen, pancreas, adrenal glands are within normal limits for a limited non-contrast exami nation. 7 mm stone is present left UPJ resulting in mild left hydronephrosis. Additional punctate calculi rosaura ateral kidneys. No bowel obstruction, free air, free fluid or abscess. The appendix is normal. The osseous structures are within normal limits. IMPRESSION: 7 mm stone left UPJ resulting in mild left hydronephrosis. A limited non-contrast examination was performed as detailed.
[2022-09-14 14:44] LABS: Albumin 3.6 g/dL (3.4-5.0); Bilirubin Total 0.3 mg/dL (0.2-1.0); Potassium 3.5 mmol/L (3.5-5.1); Protein, Total 7.3 g/dL (6.4-8.2)
[2022-09-14] MEDS ORDERED: NA CHLORIDE 0.9% 1,000 ML ONE (15:08)
[2022-09-14] MEDS ORDERED: KETOROLAC 30 MG/ML INJ ONE (15:08)
[2022-09-14 16:37] LABS: Urine Bacteria None Seen /HPF (<20); Urine Crystals Unidentified Many /HPF (None Seen); Urine RBC >50 /HPF (None Seen); Urine WBC Clump Many /HPF (None Seen)
--- NOTE | 2022-09-14 17:15 | ER ---
Nurse's Notes [facility] Name: Joanna Lim Age: 52 yrs Sex: Female : 1970 Arrival Date: 09/14/2022 Time: 13:25 Bed 7 Private MD: Parminder Velez Diagnosis: Ureterolithiasis Presentation: 09/14 13:58 Chief complaint: Patient states: LLQ pain, flank pain, blood in urine, frequent ld1 urination. Coronavirus screen: At this time, the client does not indicate any symptoms associated with coronavirus-19. Ebola Screen: No symptoms or risks identified at this time. Initial Sepsis Screen: Does the patient meet any 2 criteria? No. Patient's initial sepsis screen is negative. Does the patient have a suspected source of infection? No. Patient's initial sepsis screen is negative. Risk Assessment: Do you want to hurt yourself or someone else? Patient reports no desire to harm self or others. Onset of symptoms was September 14, 2022 at 13:59. 13:58 Method Of Arrival: Ambulatory ld1 13:58 Acuity: JAYSHREE 3 ld1 Triage Assessment: 13:58 General: Appears in no apparent distress. comfortable, Behavior is calm, cooperative, ld1 appropriate for age. Pain: Complains of pain in low back area and left lower quadrant Pain does not radiate. Pain currently is 7 out of 10 on a pain scale. Quality of pain is described as throbbing. EENT: No signs and/or symptoms were reported regarding the EENT system. Neuro: Level of Consciousness is awake, alert, obeys commands, Oriented to person, place, time, situation. Cardiovascular: Capillary refill < 3 seconds Patient's skin is warm and dry. Respiratory: Airway is patent Respiratory effort is even, unlabored. GI: Abdomen is round non-distended, Reports lower abdominal pain. : Reports urinary frequency. Derm: No signs and/or symptoms reported regarding the dermatologic system. Musculoskeletal: No signs and/or symptoms reported regarding the musculoskeletal system. 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 - Social history:: Smoking status: Patient denies any tobacco usage or history of. Patient/guardian denies using alcohol. Screenin:12 [facility] ED Fall Risk Assessment (Adult) History of falling in the last 3 months, ko1 including since admission No falls in past 3 months (0 pts) Confusion or Disorientation No (0 pts) Intoxicated or Sedated No (0 pts) Impaired Gait No (0 pts) Mobility Assist Device Used No (0 pt) Altered Elimination No (0 pt) Score/Fall Risk Level 0 - 2 = Low Risk Oriented to surroundings, Maintained a safe environment, Educated pt \T\ family on fall prevention, incl call for assistance when getting out of bed, Assessed \T\ reinforced patient's understanding of fall precautions, Provided non-skid footwear, Hourly rounding (assess needs \T\ fall precautionary measures) done, Used ambulatory aids as needed (educated on \T\ assisted with), Used gait belt as appropriate. Abuse screen: Denies threats or abuse. Denies injuries from another. Nutritional screening: No deficits noted. Tuberculosis screening: No symptoms or risk factors identified. Assessment: 15:12 General: Appears in no apparent distress. uncomfortable, Behavior is calm, cooperative, ko1 appropriate for age. Pain: Complains of pain in abdomen and back and left lower quadrant and low back area. Neuro: No deficits noted. Cardiovascular: No deficits noted. Respiratory: No deficits noted. GI: No deficits noted. : Urine is sammy blood, Reports. EENT: No deficits noted. Derm: No deficits noted. Musculoskeletal: No deficits noted. Vital Signs: 13:58 BP 142 / 85; Pulse 80; Resp 18; Pulse Ox 98% on R/A; Weight 89.81 kg; Height 5 ft. 3 ld1 in. (160.02 cm); Pain 7/10; 15:12 BP 138 / 82; Pulse 84; Resp 18; Pulse Ox 99% ; ko1 16:54 BP 135 / 78; Pulse 82; Resp 18; Pulse Ox 99% ; ko1 13:58 Body Mass Index 35.07 (89.81 kg, 160.02 cm) ld1 ED Course: 13:25 Patient arrived in ED. am2 13:25 Parminder Velez DO is Private Physician. am2 13:38 Luis Alberto Hollins DO is Attending Physician. ms3 13:58 Arm band placed on right wrist. ld1 13:59 Triage completed. ld1 14:34 CT Abd/Pelvis - Without Contrast In Process Unspecified. EDMS 14:54 Amber Serna, RN is Primary Nurse. ko1 15:01 Urine Microscopic Only Sent. ko1 15:12 Patient has correct armband on for positive identification. Bed in low position. Call ko1 light in reach. Side rails up X 1. Client placed on continuous cardiac and pulse oximetry monitoring. NIBP monitoring applied. environmental monitoring technician on. 15:12 Inserted saline lock: 20 gauge in right antecubital area, using aseptic technique. ko1 Blood collected. 15:12 Urine collected: clean catch specimen, sammy blood. ko1 17:32 No provider procedures requiring assistance completed. ko1 18:06 IV discontinued, intact, bleeding controlled, No redness/swelling at site. Pressure ko1 dressing applied. Administered Medications: 15:06 Drug: TORadol - (ketorolac) 15 mg Route: IVP; Site: right antecubital; ko1 18:08 Follow up: Response: No adverse reaction; Pain is decreased ko1 15:07 Drug: NS 0.9% 1000 ml Route: IV; Rate: 1 bolus; Site: right antecubital; ko1 17:00 Follow up: Response: No adverse reaction; IV Status: Completed infusion; IV Intake: ko1 1000ml 17:25 Drug: LevaQUIN (levofloxacin) 750 mg Route: IVPB; Site: right antecubital; ko1 18:07 Follow up: Response: No adverse reaction ko1 Medication: 17:32 VIS not applicable for this client. ko1 Intake: 17:00 IV: 1000ml; Total: 1000ml. ko1 Outcome: 17:14 Discharge ordered by . ms3 18:08 Discharged to home ambulatory. ko1 18:08 Condition: improved 18:08 Discharge instructions given to patient, Instructed on discharge instructions, follow up and referral plans. medication usage, Demonstrated understanding of instructions, follow-up care, medications, Prescriptions given X 3. 18:19 Patient left the ED. ko1 Signatures: Dispatcher [employer] EDMS Bessie Dia am2 Luis Alberto Hollins DO DO ms3 Kimberly Casas, RN RN ld1 Amber Serna RN RN ko1
--- NOTE | 2022-09-14 17:15 | EDPHYS ---
Physician Documentation [facility] Name: Joanna Lim Age: 52 yrs Sex: Female : 1970 Arrival Date: 09/14/2022 Time: 13:25 Bed 7 Private MD: Agustin [facility] ED Physician Luis Alberto Hollins HPI: 09/14 17:47 This 52 yrs old Black Female presents to ER via Ambulatory with complaints of Urinary ms3 Problem - blood, Flank Pain - left. 17:47 52-year-old female with past medical history of back pain and kidney stones presents ms3 for left lower quadrant abdominal pain for 1 month and blood in her urine that began today. Patient states she is having 7/10 left lower quadrant discomfort. Patient denies alleviating or inciting factors. Patient endorses frequency and hematuria. Patient denies dysuria, fevers, chills.. 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 - Social history:: Smoking status: Patient denies any tobacco usage or history of. Patient/guardian denies using alcohol. ROS: 17:47 Constitutional: Negative for fever, and chills. Neck: Negative for injury, pain, and ms3 swelling, Cardiovascular: Negative for chest pain, and palpitations. Respiratory: Negative for shortness of breath, cough, wheezing, and pleuritic chest pain, Abdomen/GI: Negative for abdominal pain, nausea, vomiting, diarrhea, and constipation, MS/Extremity: Negative for injury and deformity, Skin: Negative for injury, rash, and discoloration. 17:47 : Positive for urinary frequency, hematuria, Negative for burning with urination. 17:47 All other systems are negative. Exam: 17:47 Constitutional: This is a well developed, well nourished patient who is awake, alert, ms3 and in no acute distress. Head/Face: Normocephalic, atraumatic. Neck: Trachea midline, no cervical lymphadenopathy. Supple, full range of motion without nuchal rigidity, or vertebral point tenderness. No Meningismus. Chest/axilla: Normal chest wall appearance and motion. Nontender with no deformity. Cardiovascular: Regular rate and rhythm with a normal S1 and S2. No gallops, murmurs, or rubs. Normal PMI, no JVD. No pulse deficits. Respiratory: Lungs have equal breath sounds bilaterally, clear to auscultation and percussion. No rales, rhonchi or wheezes noted. No increased work of breathing, no retractions or nasal flaring. 17:47 Skin: Warm, dry with normal turgor. Normal color with no rashes, no lesions, and no evidence of cellulitis. MS/ Extremity: Pulses equal, no cyanosis. Neurovascular intact. Full, normal range of motion. 17:47 Abdomen/GI: Inspection: abdomen appears normal, Bowel sounds: normal, Palpation: mild abdominal tenderness, in the left lower quadrant. 17:47 Back: pain, is absent, ROM is normal, CVA tenderness, is absent. Vital Signs: 13:58 BP 142 / 85; Pulse 80; Resp 18; Pulse Ox 98% on R/A; Weight 89.81 kg; Height 5 ft. 3 ld1 in. (160.02 cm); Pain 7/10; 15:12 BP 138 / 82; Pulse 84; Resp 18; Pulse Ox 99% ; ko1 16:54 BP 135 / 78; Pulse 82; Resp 18; Pulse Ox 99% ; ko1 13:58 Body Mass Index 35.07 (89.81 kg, 160.02 cm) ld1 MDM: 14:01 Patient medically screened. ms3 17:47 Differential diagnosis: nephrolithiasis, UTI, diverticulitis. Data reviewed: vital ms3 signs, nurses notes, lab test result(s), radiologic studies, and as a result, I will discharge patient. Consideration of Admission/Observation Escalation of care including admission/observation considered. I considered the following discharge prescriptions or medication management in the emergency department Medications were administered in the Emergency Department. See MAR. Counseling: I had a detailed discussion with the patient and/or guardian regarding: the historical points, exam findings, and any diagnostic results supporting the discharge/admit diagnosis, lab results, radiology results, the need for outpatient follow up, to return to the emergency department if symptoms worsen or persist or if there are any questions or concerns that arise at home. ED course: Discussed CT findings and labs with patient. Patient with red blood cells and white blood cells in urine, no bacteria seen. Will empirically place patient on Levaquin pending urology follow-up. Discussed with patient low likelihood of passing 7 mm stone. Patient understands and states she will follow-up with her primary care physician in 1 to 2 days as discussed.. 09/14 14:03 Order name: CBC with Diff; Complete Time: 14:47 ms3 09/14 14:03 Order name: CMP; Complete Time: 14:47 ms3 09/14 14:03 Order name: Urine Microscopic Only; Complete Time: 17:02 ms3 09/14 14:03 Order name: CT Abd/Pelvis - Without Contrast; Complete Time: 14:47 ms3 09/14 16:40 Order name: Urine Culture EDMS 09/14 14:03 Order name: IV Saline Lock; Complete Time: 14:30 ms3 09/14 14:03 Order name: Labs collected and sent; Complete Time: 14:30 ms3 09/14 14:03 Order name: Urine Dipstick-Ancillary (obtain specimen); Complete Time: 15:01 ms3 Administered Medications: 15:06 Drug: TORadol - (ketorolac) 15 mg Route: IVP; Site: right antecubital; ko1 18:08 Follow up: Response: No adverse reaction; Pain is decreased ko1 15:07 Drug: NS 0.9% 1000 ml Route: IV; Rate: 1 bolus; Site: right antecubital; ko1 17:00 Follow up: Response: No adverse reaction; IV Status: Completed infusion; IV Intake: ko1 1000ml 17:25 Drug: LevaQUIN (levofloxacin) 750 mg Route: IVPB; Site: right antecubital; ko1 18:07 Follow up: Response: No adverse reaction ko1 Disposition Summary: 09/14/22 17:14 Discharge Ordered Location: Home ms3 Condition: Stable ms3 Diagnosis - Ureterolithiasis ms3 Followup: ms3 - With: Private Physician - When: 1 - 2 days - Reason: Recheck today's complaints Discharge Instructions: - Discharge Summary Sheet ms3 - Kidney Stones, [id number] ms3 Forms: - Medication Reconciliation Form ms3 - Thank You Letter ms3 - Antibiotic Education ms3 - Prescription Opioid Use ms3 Prescriptions: - levofloxacin 750 mg Oral Tablet - take 1 tablet by ORAL route once daily for 5 days; 5 tablet; Refills: 0, ms3 Product Selection Permitted - Tylenol-Codeine #3 300 mg-30 mg Oral - take 1 tablet by ORAL route every 6 hours; 12 tablet; Refills: 0, Product ms3 Selection Permitted - tamsulosin 0.4 mg Oral capsule - take 1 capsule by ORAL route once daily 1/2 hour following the same meal each ms3 day; 15 capsule; Refills: 0, Product Selection Permitted Signatures: Dispatcher [employer] Toyin Sifuentes RN RN Luis Alberto Hollins DO DO ms3 Kimberly Casas RN RN ld1 Amber Serna RN RN ko1
[2022-09-14] MEDS ORDERED: Levofloxacin 750mg IV 750 MG/150 ML BAG IV ONE (17:26)
[2022-09-14 18:47] VITALS: O2SAT 99
[2022-09-14 18:49] VITALS: BP 135/78
== END 2022-09-14 18:19 | disposition home or self-care (01) ==
LOC: ER 13:22
DX: N20.1 Calculus of ureter (principal); Z87.442 Personal history of urinary calculi; Z88.0 Allergy status to penicillin; Z88.5 Allergy status to narcotic agent
CPT/HCPCS: 87088; 85025; 87086; 36415; 81015; 80053; 74176; J7030

== ENCOUNTER 2024-05-26 19:59 | Emergency (ER) | payer OTHER, SELFPAY ==
[2024-05-26] MEDS ORDERED: ACETAMINOPHEN 500 MG TAB ONE (21:42)
[2024-05-26] MEDS ORDERED: DIPHENHYDRAMINE 25 MG TAB/CAP ONE (21:42)
[2024-05-26] MEDS ORDERED: IBUPROFEN 400 MG TAB ONE (21:42)
[2024-05-26] MEDS ORDERED: GUAIFENESIN/DM 5 ML UCUP ONE (21:43)
[2024-05-26 22:09] LABS: SARS-CoV-2 Antigen CONTROL BLUE LINE VIS/BG OK; SARS-CoV-2 Antigen Rapid Res Negative (Negative)
--- NOTE | 2024-05-26 22:19 | ER ---
Nurse's Notes [facility] Name: Joanna Lim Age: 54 yrs Sex: Female : 1970 Arrival Date: 05/26/2024 Time: 19:59 Bed 3 Private MD: Diagnosis: Acute viral syndrome ;Acute upper respiratory infection, unspecified Presentation: 05/26 21:01 Chief complaint: Patient states: Pt states congestion, runny nose, body aches, and dd2 cough x3 days. Coronavirus screen: congestion, cough unrelated to allergies, difficulty breathing, headache, muscle pain, runny nose. Ebola Screen: No symptoms or risks identified at this time. Initial Sepsis Screen: Does the patient meet any 2 criteria? No. Patient's initial sepsis screen is negative. Does the patient have a suspected source of infection? No. Patient's initial sepsis screen is negative. Risk Assessment: Do you want to hurt yourself or someone else? Patient reports no desire to harm self or others. Onset of symptoms is unknown. 21:01 Method Of Arrival: Ambulatory dd2 21:01 Acuity: JAYSHREE 3 dd2 Triage Assessment: 21:04 General: Appears uncomfortable, Behavior is calm, cooperative, appropriate for age. dd2 Pain: Complains of pain in generalized body aches. Respiratory: Reports shortness of breath at rest on exertion cough that is non-productive, Airway is patent Respiratory effort is even, unlabored, Respiratory pattern is regular, symmetrical, Onset: The symptoms/episode began/occurred x3-4 days ago, the patient has mild shortness of breath. 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 - Infectious Disease History:: Denies. - Social history:: Smoking status: Patient denies any tobacco usage or history of. - Family history:: not pertinent. Screenin:51 [facility] ED Fall Risk Assessment (Adult) History of falling in the last 3 months, al5 including since admission No falls in past 3 months (0 pts) Confusion or Disorientation No (0 pts) Intoxicated or Sedated No (0 pts) Impaired Gait No (0 pts) Mobility Assist Device Used No (0 pt) Altered Elimination No (0 pt) Score/Fall Risk Level 0 - 2 = Low Risk Oriented to surroundings, Maintained a safe environment, Hourly rounding (assess needs \T\ fall precautionary measures) done. Abuse screen: Denies threats or abuse. Denies injuries from another. Nutritional screening: No deficits noted. Tuberculosis screening: No symptoms or risk factors identified. Assessment: 21:53 General: Appears in no apparent distress. Behavior is calm, cooperative. Neuro: Level al5 of Consciousness is awake, alert, obeys commands, Oriented to person, place, time, situation. Cardiovascular: Rhythm is sinus rhythm. Respiratory: Reports cough that is Airway is patent Respiratory effort is even, unlabored, Respiratory pattern is regular, symmetrical, Breath sounds are clear bilaterally. GI: No signs and/or symptoms were reported involving the gastrointestinal system. : No signs and/or symptoms were reported regarding the genitourinary system. EENT: Reports flu like symptoms x2 days. Derm: Skin is intact, Skin is pink, warm \T\ dry. normal. Musculoskeletal: No signs and/or symptoms reported regarding the musculoskeletal system. 22:52 Reassessment: Patient and/or family updated on plan of care and expected duration. Pain ha1 level reassessed. Patient is alert, oriented x 3, equal unlabored respirations, skin warm/dry/pink. Patient states feeling better. Patient states symptoms have improved. Vital Signs: 21:01 BP 139 / 99; Pulse 95; Resp 16; Temp 97.8(TE); Pulse Ox 99% ; Weight 97.52 kg; dd2 21:15 BP 151 / 88; Pulse 80; Resp 18; Pulse Ox 96% ; al5 21:30 BP 158 / 99; Pulse 79; Resp 17; Pulse Ox 96% on R/A; al5 21:45 BP 164 / 90; Pulse 84; Resp 18; Pulse Ox 98% on R/A; al5 22:52 BP 155 / 89; Pulse 87; Resp 18 S; Temp 98.9(T); Pulse Ox 99% on R/A; ha1 Jeffrey Coma Score: 05/27 06:55 Eye Response: spontaneous(4). Motor Response: obeys commands(6). Verbal Response: sp4 oriented(5). Total: 15. ED Course: 05/26 19:59 Patient arrived in ED. im 20:04 Willam Caal MD is Attending Physician. sp4 21:04 Triage completed. dd2 21:04 Arm band placed on right wrist. Patient placed in waiting room. dd2 21:29 Bessie Thomas RN is Primary Nurse. al5 21:34 Influenza Screen (a \T\ B) Sent. al5 21:34 SARS RAPID Sent. al5 21:52 Patient has correct armband on for positive identification. Bed in low position. Call al5 light in reach. Side rails up X2. Provided Education on: plan of care, medications. 21:52 Warm blanket given. socks given, juice and crackers given. al5 21:57 No provider procedures requiring assistance completed. al5 22:54 Patient did not have IV access during this emergency room visit. ha1 Administered Medications: 21:51 Drug: Ibuprofen PO 800 mg PO once Route: PO; al5 22:55 Follow up: Response: No adverse reaction; Marked relief of symptoms ha1 21:51 Drug: Acetaminophen PO 1000 mg PO once Route: PO; al5 22:55 Follow up: Response: No adverse reaction; Marked relief of symptoms ha1 21:51 Drug: diphenhydrAMINE PO 25 mg PO once Route: PO; al5 22:55 Follow up: Response: No adverse reaction; Marked relief of symptoms ha1 21:51 Drug: Dextromethorphan-Guaifenesin PO Liquid 10 mg-100 mg/5 mL 10 ml PO once Route: PO; al5 22:55 Follow up: Response: No adverse reaction; Marked relief of symptoms ha1 Medication: 21:57 VIS not applicable for this client. al5 Outcome: 22:18 Discharge ordered by . sp4 22:54 Discharged to home ambulatory, ha1 22:54 Condition: improved 22:54 Discharge instructions given to patient, Instructed on discharge instructions, follow up and referral plans. medication usage, Demonstrated understanding of instructions, follow-up care, medications, Prescriptions given X 2, 22:56 Patient left the ED. ha1 Signatures: Day Mitchell RN RN ha1 Willam Caal MD MD sp4 Carson, Bessie Peterson, RN RN al5 SHANDRA ADKINS RN RN dd2 Corrections: (The following items were deleted from the chart) 21:05 21:04 Allergies: Tramadol HCl; dd2 dd2
--- NOTE | 2024-05-26 22:19 | EDPHYS ---
Physician Documentation [facility] Name: Joanna Lim Age: 54 yrs Sex: Female : 1970 Arrival Date: 05/26/2024 Time: 19:59 Bed 3 Private MD: ED Physician Willam Caal HPI: 05/26 20:04 This 54 yrs old Black Female presents to ER via Unassigned with complaints of Flu sp4 Symptoms, Shortness Of Breath. 05/27 06:55 Ms. Lim presents with complaint of cough congestion and discomfort. 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 - Infectious Disease History:: Denies. - Social history:: Smoking status: Patient denies any tobacco usage or history of. - Family history:: not pertinent. ROS: 05/27 06:55 Constitutional: Negative for fever, chills, and weight loss, positive for shortness of sp4 breath cough and congestion All other systems are negative, Exam: 06:55 Constitutional: This is a well developed, well nourished patient who is awake, alert, sp4 and in no acute distress. Head/Face: Normocephalic, atraumatic. Eyes: Pupils equal round and reactive to light, extra-ocular motions intact. Lids and lashes normal. Conjunctiva and sclera are not injected. Cornea within normal limits. Periorbital areas with no swelling, redness, or edema. ENT: Nares patent. No nasal discharge, no septal abnormalities noted. Tympanic membranes are normal and external auditory canals are clear. Oropharynx with no redness, swelling, or masses, exudates, or evidence of obstruction, uvula midline. Mucous membranes moist. Neck: Trachea midline, no thyromegaly or masses palpated, and no cervical lymphadenopathy. Supple, full range of motion without nuchal rigidity, or vertebral point tenderness. Chest/axilla: Normal chest wall appearance and motion. Nontender with no deformity. No lesions are appreciated. Cardiovascular: Regular rate and rhythm with a normal S1 and S2. No gallops, murmurs, or rubs. Normal PMI, no JVD. No pulse deficits. Respiratory: Lungs have equal breath sounds bilaterally, clear to auscultation and percussion. No rales, rhonchi or wheezes noted. No increased work of breathing, no retractions or nasal flaring. Abdomen/GI: Soft, with normal bowel sounds. No distension or tympany. No guarding or rebound. No evidence of tenderness throughout. Back: No spinal tenderness. No costovertebral tenderness. Skin: Warm, dry with normal turgor. Normal color with no rashes, no lesions, and no evidence of cellulitis. MS/ Extremity: Pulses equal, no cyanosis. Neurovascular intact. Full, normal range of motion. Neuro: Awake and alert, GCS 15, oriented to person, place, time, and situation. Cranial nerves II-XII grossly intact. Motor strength 5/5 in all extremities. Sensory grossly intact. Psych: Awake, alert, with orientation to person, place and time. Behavior, mood, and affect are within normal limits Vital Signs: 05/26 21:01 BP 139 / 99; Pulse 95; Resp 16; Temp 97.8(TE); Pulse Ox 99% ; Weight 97.52 kg; dd2 21:15 BP 151 / 88; Pulse 80; Resp 18; Pulse Ox 96% ; al5 21:30 BP 158 / 99; Pulse 79; Resp 17; Pulse Ox 96% on R/A; al5 21:45 BP 164 / 90; Pulse 84; Resp 18; Pulse Ox 98% on R/A; al5 22:52 BP 155 / 89; Pulse 87; Resp 18 S; Temp 98.9(T); Pulse Ox 99% on R/A; ha1 Henna Coma Score: 05/27 06:55 Eye Response: spontaneous(4). Motor Response: obeys commands(6). Verbal Response: sp4 oriented(5). Total: 15. MDM: 05/26 22:18 Medical Screening Exam initiated sp4 05/27 06:55 Differential diagnosis: asthma, Bronchitis reactive airway disease. Data reviewed: sp4 vital signs, nurses notes, old medical records, lab test result(s), Flu: negative. ED course: Patient has nasal congestion and symptoms of upper respiratory illness of viral nature.. 05/26 20:05 Order name: SARS RAPID; Complete Time: 22:12 sp4 05/26 20:05 Order name: Influenza Screen (a \T\ B); Complete Time: 22:12 sp4 Administered Medications: 05/26 21:51 Drug: Ibuprofen PO 800 mg PO once Route: PO; al5 22:55 Follow up: Response: No adverse reaction; Marked relief of symptoms ha1 21:51 Drug: Acetaminophen PO 1000 mg PO once Route: PO; al5 22:55 Follow up: Response: No adverse reaction; Marked relief of symptoms ha1 21:51 Drug: diphenhydrAMINE PO 25 mg PO once Route: PO; al5 22:55 Follow up: Response: No adverse reaction; Marked relief of symptoms ha1 21:51 Drug: Dextromethorphan-Guaifenesin PO Liquid 10 mg-100 mg/5 mL 10 ml PO once Route: PO; al5 22:55 Follow up: Response: No adverse reaction; Marked relief of symptoms ha1 Disposition Summary: 05/26/24 22:18 Discharge Ordered Notes: Location: Home sp4 Problem: new sp4 Symptoms: have improved sp4 Condition: Stable sp4 Diagnosis - Acute viral syndrome sp4 - Acute upper respiratory infection, unspecified sp4 Followup: sp4 - With: Private Physician - When: 7 - 10 days - Reason: Recheck today's complaints Discharge Instructions: - Discharge Summary Sheet sp4 - Upper Respiratory Infection, Adult sp4 Forms: - Patient Portal Instructions sp4 Prescriptions: - dextromethorphan-guaifenesin 60-1,200 mg Oral Tablet, Extended Release 12 hr - take 1 tablet ORAL route every 12 hours PRN cough; 40 tablet; Refills: 0, sp4 Product Selection Permitted - Ibuprofen 800 mg Oral tablet - take 1 tablet ORAL route every 6 hours As needed take with food; 30 tablet; sp4 Refills: 0, Product Selection Permitted 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 EDMS EDMS 20:05 20:05 Influenza Screen (A \T\ B)+BA.LAB.BRZ ordered. EDMS EDMS 21:05 21:04 Allergies: Tramadol HCl; dd2 dd2
[2024-05-27 03:52] VITALS: BP 155/89; TEMP 98.9; O2SAT 99
== END 2024-05-26 22:56 | disposition home or self-care (01) ==
LOC: ER 19:59
DX: B34.9 Viral infection, unspecified (principal); J06.9 Acute upper respiratory infection, unspecified; Z11.52 Encounter for screening for COVID-19
CPT/HCPCS: 36415; 87804; 87811; 99284

== ENCOUNTER 2025-05-15 20:16 | Emergency (ER) | payer OTHER ==
--- OUTSIDE RECORDS SUMMARY | 2025-05-15 20:26 | XMS REPORT | Continuity of Care Document ---
Author Name Unknown Address [address] [facility] [place] [address] [facility] Address [address] [facility] [place] [address] Support Name Relationship Address Phone Yolanda Ruiz Other [address] [place] [address] L Leila Ruizn Relative [address] [place] [address] N Jonah Lim Child [address] [address] Joanna Lim Personal Relationship [address] [place] [address] Joanna Lim Personal Relationship [address] [place] [id number] JONAH LIM N E [address] [address] Unavailable DANE RUIZ Relative 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 Name Role Phone Parminder Callahan Primary Care Physician Parminder Callahan Attending Clinician Unavailable CHRIS CRANE Attending Clinician Unavailable BETTY IVERSON Attending Clinician UnavailBHARTI Hernández Attending Clinician Unavailable KARMEN CALLAHAN Attending Clinician Unavailable LIEN AYALA Attending Clinician UnavailBetty Garza CNM Attending Clinician Doctor Unassigned, Bradner Attending Clinician U navailBharti Epps Attending Clinician Lab, Ang - Db Attending Clinician Unavailable Lucy CONTROLS PROJECT ENGINEER, Lien Attending Clinician Indra MCKAY, Katie Attending Clinician [phone] ADIEL CHANDRA Attending Clinician Bree juan Eckert CONTROLS PROJECT ENGINEER, Diogenes Deanna Attending Clinician [phone] Adiel Chandra MD Attending Clinician Chris Crane MD Attending Clinician [phone] Zuri Lloyd MD Attending Clinician [phone] Bryan Masterson MD Attending Clinician [phone] Pob, Adc Lab Main Attending Clinician Unavailabl e RADIOLOGY Attending Clinician Unavailable ZOIE VASQUEZ Attending Clinician Unavail able Betty Be MA Attending Clinician Unavailabl e UNKNOWN, ATTENDING Attending Clinician Unavailab PATSY Robles Attending Clinician Unavailabl e SEBASTIAN NÚÑEZ Attending Clinician Unavailable Wilton CONTROLS PROJECT ENGINEER, Sebastian Attending Clinician [phone] Nurse, [facility] Surgery Gu Attending Clinician Unajcai Mitchell MD, Adiel Attending Clinician [phone] ADIEL MITCHELL Attending Clinician Unavailable Only, Adc Test Attending Clinician Unavailable Rashi MANRIQUEZ, Jeanna Shaffer Attending Clinician [phone] Kyle Stanley MD Attending Clinician [phone] KYLE STANLEY Attending Clinician Unavailabl e JEANNA VILCHIS Attending Clinician Unavailable Jason Cook RN Attending Clinician UnaCECILE Corona Attending Clinician Unavail able CECILE KEITA Attending Clinician Unavail able 2, Adc Lab Attending Clinician Unavailable NORA PEACOCK Attending Clinician Unavailable NORA PEACOCK Attending Clinician Unavailable NATALYA FUNES Attending Clinician Unavailab Natalya Giron DO Attending Clinician [phone] KELBY NOE Attending Clinician Unavailable Nilda Serrano MA Attending Clinician Unavailab amanda Keita MD, Cecile Patel Attending Clinician Ifeoma Harrell PA-C Attending Clinician [phone] Urodynamics, Clc Bls Urogyn Attending Clinician Unavailable Elizabeth Wolf Attending Clinician [phone] ELIZABETH MOREAU Attending Clinician Unavail able ERICK PETTIT Attending Clinician Unavailabl Erick Mane MD Attending Clinician [phone] JARROD ORTIZ Attending Clinician Unavailable Brooke Terrell MD Attending Clinician [phone] BROOKE TERRELL Attending Clinician Unavailable Keyon Marquez DO Attending Clinician JERMAINE LE Attending Clinician Unavailable Razia Rock Attending Clinician [phone] Jermaine Le MD Attending Clinician [phone] Diana Tate MD Attending Clinician [phone] JESSICA HE Attending Clinician Unavailable NILS GARCIA Attending Clinician Unavailab le King, Attending Attending Clinician Unavailab MATTHEW Jeffers Attending Clinician Unavailable CHRIS CRANE Admitting Clinician Unavailable ADIEL CHANDRA Admitting Clinician Bree Adiel Tubbs MD Admitting Clinician Chris Crane MD Admitting Clinician [phone] SEBASTIAN NÚÑEZ Admitting Clinician Unavailable ADIEL MITCHELL Admitting Clinician Unavailable Adiel Mitchell MD Admitting Clinician [phone] NATALYA FUNSE Admitting Clinician Unavailab RAZIA Mera Admitting Clinician Unavailable ERICK PETTIT Admitting Clinician Unavailkathrin rosales Payers Payer Name Policy Type Policy Number Effective Date Expirati on Date Source [facility] CHIP [id number] 2016 00:00:00 [facility] [id number] 2022 00:00:00 Miranda Reyna [id number] 2024 00:00:00 [facility] [place] [place] C1 [id number] 2020 00:00:00 [facility] [place] [place] C1 [id number] 2020 00:00:00 [facility] C1 [id number] 2020 00:00:00 [facility] Problems Condition Name Condition Details Condition Category Status Onset Date Resolution Date Last Treatment Date Treating Clinician Comments Source Flank pain Flank pain Disease Active 09-22 00:00: 00 [facility] Hydronephr osis of left kidney Hydronephr osis of left kidney Disease Active 09-15 00:00: 00 Overview: Formattin g of this note might be different from the original. Added automatic ally from request for surgery [id number] [facility] Left ureteral stone Left ureteral stone Disease Active 10-12 00:00: 00 Overview: Formattin g of this note might be different from the original. 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 For AUB, Has right ovary [facility] Status post vaginal hysterecto my Status post vaginal hysterecto my Disease Active 09-30 00:00: 00 [facility] Post-opera tive state Post-opera tive state Disease Active 09-30 00:00: 00 [facility] Uterine polyp Uterine polyp Disease Active 08-12 00:00: 00 [facility] Goiter Goiter Disease Active 2014-08 00:00: 00 [facility] Simple obesity (disorder) Simple obesity (disorder) Active Problem 04/08/2019 [facility], TALD Carlos, OPID [place] Problem Active 2019-04-08 00:24:36 Dmitry Gonzalez NONTRAUMAT IC CHRONIC SUBDURAL HEMORRHAGE NONTRAUMAT IC CHRONIC SUBDURAL HEMORRHAGE Active [facility] Diagnosis Active 2019-02-01 10:05:00 Dmitry Gonzalez Mixed hyperlipid emia Mixed hyperlipid emia Problem [facility] Body mass index [BMI] 32.0-32.9, adult Body mass index [BMI] 32.0-32.9, adult Problem [facility] Other obesity due to excess calories Other obesity due to excess calories Problem [facility] Herpes simplex virus HSV (herpes simplex virus) infection Problem [facility] 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 Problem [facility] Other chronic pain Other chronic pain Problem [facility] Thyroid nodule Thyroid nodule Problem [facility] Renal calculus or stone Renal calculus or stone Problem [facility] Urinary incontinen ce, unspecifie d type Urinary incontinen ce, unspecifie d type Problem [facility] Allergies, Adverse Reactions, Alerts Allergy Name Allergy Type Status Severity Reaction(s) Onset Date Inactive Date Treating Clinician Comments Source Penicill ins - CLASS Propensi ty to adverse reaction to drug Active 11-19 00:00: 00 Jace Donato Penicill amine Allergy to substanc e Active Hives 2021-08 00:00: 00 [facility] PENICILL AMINE DRUG INGREDI Active Hives 2021-08 00:00: 00 [facility] Penicill amine Drug Allergy Active Hives 2021-08 00:00: 00 [facility] Penicill ins Propensi ty to adverse reaction to drug Active 08 00:00: 00 Jace Donato Penicill ins Propensi ty to adverse reaction s Active Other - See comments 2014-08 0 00:00: 00 Childhood allergy [facility] PENICILL INS Drug Class Active Other-Cmnt 2014-08 0 00:00: 00 [facility] Penicill ins Propensi ty to adverse reaction s Active Other - See comments 2014-08 00:00: 00 Childhood allergy [facility] penicill in penicill in Active Dmitry Gonzalez Social History Social Habit Start Date Stop Date Quantity Comments Source History SDOH Social Connections Get Together [facility] History SDOH Social Connections Confucianist [facility] History SDOH Social Connections Membership [facility] History SDOH Social Connections Meetings [facility] History SDOH Social Connections Living [facility] Gender identity [facility] of Tobacco Use [facility] Sex Assigned At [facility] Exposure to SARS-CoV-2 (event) 2022-12-26 00:00:00 2023-01-05 09:55:00 Not sure [facility] History SDOH Social Connections Phone 2022-09-22 00:00:00 2022-09-22 00:00:00 5 [facility] History SDOH Physical Activity DPW 2022-09-22 00:00:00 2022-09-22 00:00:00 0 [facility] History SDOH Physical Activity MPS 2022-09-22 00:00:00 2022-09-22 00:00:00 0 [facility] History SDOH Financial 2022-09-22 00:00:00 2022-09-22 00:00:00 4 [facility] History SDOH Food Worry 2022-09-22 00:00:00 2022-09-22 00:00:00 1 [facility] History SDOH Food Scarcity 2022-09-22 00:00:00 2022-09-22 00:00:00 1 [facility] History SDOH Transport Med 2022-09-22 00:00:00 2022-09-22 00:00:00 2 [facility] History SDOH Transport Non-Med 2022-09-22 00:00:00 2022-09-22 00:00:00 2 [facility] History SDOH Alcohol Frequency 2022-09-22 00:00:00 2022-09-22 00:00:00 1 [facility] History SDOH Alcohol Std Drinks 2022-09-22 00:00:00 2022-09-22 00:00:00 0 [facility] History SDOH Alcohol Binge 2022-09-22 00:00:00 2022-09-22 00:00:00 1 [facility] History of Social function 2022-09-17 00:00:00 2022-09-17 00:00:00 [facility] Tobacco Comment 2022-07-13 00:00:00 2022-07-13 00:00:00 Smoking History Packs/day: N. Recorded:10/09/19 21 [facility] Alcohol intake 2022-01-25 00:00:00 2022-01-25 00:00:00 0 /d [facility] Alcohol Comment 2021-07-24 00:00:00 2021-07-24 00:00:00 occasional [facility] Tobacco use and exposure 2019-02-01 00:00:00 2019-02-01 00:00:00 Smokeless tobacco non-user [facility] Smoking Status Start Date Stop Date Source Social History [facility] Medications Ordered Medication Name Filled Medication Name Start Date Stop Date Current Medication? Ordering Clinician Indication Dosage Frequency Signature (SIG) Comments Components Source Mucinex 600 mg tablet, extended release 09-06 00:00: 00 Yes 1mg Jace Donato Flonase Allergy Relief 50 mcg/actuati on nasal spray,suspe nsion 09-06 00:00: 00 Yes 12mcg/a ctuatio n Jace Donato Macrobid 100 mg capsule 09-06 00:00: 00 Yes 1mg Jace Donato Bromfed DM 2 mg-30 mg-10 mg/5 mL oral syrup 09-06 00:00: 00 Yes 10mg/5 mL Jace Donato Macrobid 100 mg capsule 10-08 00:00: 00 Yes 1mg Jace Donato TAKE ONE TABLET NOW AND ANOTHER IN 3 DAYS 2022-08 00:00: 00 10-12 00:00 :00 No 150 Jace Donato TAKE 1 CAPSULE TWICE DAILY. 2022-08 1-27 00:00: 00 10-12 00:00 :00 No 100 Jace Donato boric acid 600 mg vaginal suppository 6-05 00:00: 00 Yes [id number] 600mg Insert 1 Suppositor y into vagina at bedtime. [facility] boric acid 600 mg vaginal suppository 6- 00:00: 00 02-04 00:00 :00 No [id number] 600mg Insert 1 Suppositor y into vagina at bedtime. [facility] boric acid 600 mg vaginal suppository 6 00:00: 00 01-14 04:59 :00 No [id number] 600mg Insert 1 Suppositor y into vagina at bedtime for 7 days. [facility] TAKE ONE TABLET NOW AND ANOTHER IN 3 DAYS -19 00:00: 00 10-12 00:00 :00 No 150 Jace Donato TAKE 1 TABLET BID NEEDED 11-19 00:00: 00 10-12 00:00 :00 No 600 Jace Donato TAKE ONE TABLET EVERY 12 HOURS 11-19 00:00: 00 10-12 00:00 :00 No 500 Jace Donato TAKE 1 TABLET TWICE A DAY NEEDED 11-19 00:00: 00 10-12 00:00 :00 No 500 Jace Donato FLUCONAZOLE 3-03 00:00: 00 Yes Jaec Donato HYDROcodone -acetaminop hen (NORCO 5) 5-325 mg tablet 1 tablet 09-22 16:45: 00 09-22 17:18 :00 No 1{tbl} 1 tablet, Oral, ONCE, 1 dose, On Tue09/22/22 at 1045, Routine, PACU [facility] FENTanyl PF (SUBLIMAZE (PF)) injection 25 mcg 09-22 16:37: 02 09-22 17:41 :05 No 25ug 25 mcg, Slow IV Push, Q5MIN PRN, 4 doses, Starting on Tue09/22/22 at 1037, Until Tue09/22/22 at 1141, Routine, Pain (scale 7-10), PACU [facility] sennosides (SENOKOT) tablet 8.6 mg 09-22 15:00: 00 Yes 8.6mg 8.6 mg, Oral, DAILY, First dose on Tue09/22/22 at 0900, Until Discontinu ed, Routine [facility] gentamicin 240 mg in NaCl 0.9% (NS) 100 mL 09-22 12:45: 00 Yes IV Piggyback, Q24H ABX, First dose on Tue09/22/22 at 0645, Until Discontinu ed, Routine
Reason for Anti-Infec tive: Surgical Prophylaxi s
Surgi calderon Prophylaxi s: Genitourin estrella
Dur ation of therapy: within 24 hours of surgery [facility] levoFLOXaci n in D5W (LEVAQUIN) 750 mg/150 mL Piggyback 750 mg 09-22 11:00: 00 09-22 11:37 :28 No 750mg 750 mg, IV Piggyback, at 100 mL/hr Administer over 90 Minutes, Q24H ABX, 7 doses, First dose on Tue09/22/22 at 0500, Last dose on Tue09/28/22 at 0500, LAURA
Re ason for Anti-Infec tive: Documented Infection< br>Documen matthew Infection Site: Urine
D uration of Therapy: 7 days [facility] tamsulosin (FLOMAX) capsule 0.4 mg 09-22 06:30: 00 Yes .4mg 0.4 mg, Oral, QHS, First dose on Tue09/22/22 at 0030, Until Discontinu ed, Routine [facility] lactated ringers IV infusion 1,000 mL 09-22 06:30: 00 Yes 1000mL at 125 mL/hr, 1,000 mL, IV Infusion, CONTINUOUS , Starting on Tue09/22/22 at 0030, Until Discontinu ed, Routine [facility] acetaminoph en (TYLENOL) tablet 650 mg 09-22 06:30: 00 Yes 650mg 650 mg, Oral, Q6H, First dose on Tue09/22/22 at 0030, Until Discontinu ed, Routine [facility] gabapentin (NEURONTIN) capsule 300 mg 09-22 06:30: 00 Yes 300mg 300 mg, Oral, TID, First dose on Tue09/22/22 at 0030, Until Discontinu ed, [facility] ketorolac (TORADOL) injection 30 mg 09-22 06:20: 44 09-27 05:59 :00 No 30mg 30 mg, Slow IV Push, Q6HPRN, 4 doses, Starting on Tue09/22/22 at 0020, Until Tue09/26/22 at 2359, Routine, Pain (scale 7-10) [facility] oxybutynin chloride (DITROPAN) tablet 5 mg 09-22 06:20: 24 Yes 5mg 5 mg, Oral, TIDPRN, Starting on Tue09/22/22 at 0020, Until Discontinu ed, Routine, Bladder spasms [facility] ondansetron (ZOFRAN (PF)) injection 4 mg 09-22 06:18: 49 Yes 4mg 4 mg, Slow IV Push, Q4HPRN, Starting on Tue09/22/22 at 0018, Until Discontinu ed, Routine, Nausea and Vomiting (N/V) [facility] iopamidol (ISOVUE 370-500 mL) injection 75 mL 09-22 01:15: 00 09-22 01:15 :00 No [id number] 75mL 75 mL, Intravenou s, ONCE, 1 dose, On Tue09/21/22 at 1915, Routine [facility] morpHINE (4 mg/mL) injection 4 mg 09-21 23:00: 00 09-21 21:55 :00 No 4mg 4 mg, Slow IV Push, ONCE, 1 dose, On Tue09/21/22 at 1700, Routine [facility] NaCl 0.9% (NS) bolus infusion 1,000 mL 09-21 22:45: 00 09-21 23:40 :00 No 1000mL at 999 mL/hr, 1,000 mL, IV Infusion, ONCE, 1 dose, On Tue09/21/22 at 1645, [facility] ondansetron (ZOFRAN (PF)) injection 4 mg 09-21 22:00: 00 09-21 21:53 :00 No 4mg 4 mg, Slow IV Push, ONCE, 1 dose, On Tue09/21/22 at 1600, [facility] ondansetron (ZOFRAN (PF)) injection 4 mg 09-17 22:11: 01 Yes 4mg 4 mg, Slow IV Push, PRN, 1 dose, Starting on Tue09/17/22 at 1611, Until Discontinu ed, Routine, Nausea and Vomiting (N/V), PACU [facility] FENTanyl PF (SUBLIMAZE (PF)) injection 25 mcg 09-17 22:11: 01 09-18 01:42 :56 No 25ug 25 mcg, Slow IV Push, Q5MIN PRN, 4 doses, Starting on Tue09/17/22 at 1611, Until Tue09/17/22 at 1942, Routine, Pain (scale 7-10), PACU [facility] traMADoL (ULTRAM) tablet 50 mg 09-17 22:08: 22 09-18 01:42 :56 No 50mg 50 mg, Oral, PRN, 1 dose, Starting on Tue09/17/22 at 1608, Until Tue09/17/22 at 1942, Routine, Pain (scale 7-10), DSU Recovery [facility] traMADoL (ULTRAM) tablet 50 mg 09-17 22:08: 21 Yes 50mg 50 mg, Oral, PRN, 1 dose, Starting on Tue09/17/22 at 1608, Until Discontinu ed, Routine, Pain (scale 1-3), DSU Recovery [facility] ondansetron (ZOFRAN (PF)) injection 4 mg 2023-0 2-10 22:08: 21 Yes 4mg 4 mg, Slow IV Push, Q4HPRN, 1 dose, Starting on Tue09/17/22 at 1608, Until Discontinu ed, Routine, Nausea and Vomiting (N/V), DSU Recovery [facility] iopamidol (ISOVUE 370-500 mL) injection 09-17 21:44: 00 Yes PRN, Starting on Tue09/17/22 at 1544, Until Discontinu ed, Routine, Intra-op [facility] sodium chloride 0.9 % irrigation solution 09-17 20:55: 00 Yes PRN, Starting on Tue09/17/22 at 1455, Until Discontinu ed, Intra-op [facility] lactated ringers IV infusion 1,000 mL 09-17 20:00: 00 09-17 20:15 :00 No 1000mL at 42 mL/hr, 1,000 mL, IV Infusion, ONCE, 1 dose, On Tue09/17/22 at 1400, Routine, DSU Pre-op [facility] OXYBUTYNIN 09-17 00:00: 00 Yes Jace Donato oxybutynin chloride 5 mg tablet 09-17 00:00: 00 02-04 00:00 :00 No [id number] 5mg Take 1 tablet by mouth 3 (three) times daily as needed for Bladder spasms for up to 9 doses. For bladder spasms or stent pain. [facility] acetaminoph en 325 mg tablet 09-17 00:00: 00 10-02 05:59 :00 No [id number] 650mg Take 2 tablets by mouth every 6 (six) hours as needed for Pain (scale 1-3) for up to 14 days. [facility] ibuprofen 600 mg tablet 09-17 00:00: 00 10-02 05:59 :00 No [id number] 600mg Take 1 tablet by mouth every 6 (six) hours as needed for Pain (scale 1-3) for up to 14 days. [facility] tamsulosin 0.4 mg 24 hr capsule 09-17 00:00: 00 10-02 05:59 :00 No [id number] .4mg Take 1 capsule by mouth in the morning for 14 days. [facility] NAPROXEN ORAL 09-16 08:: 09-16 00:00 :00 No 1{tbl} Take 1 tablet by mouth. [facility] DULoxetine 20 mg capsule 09-16 08:: 09-16 00:00 :00 No 20mg Take 20 mg by mouth daily. [facility] tiZANidine 4 mg capsule 09-16 08:: 09-16 00:00 :00 No 4mg Take 4 mg by mouth 3 (three) times daily. [facility] TAKE 1 TABLET BY MOUTH EVERY 5 DAYS. 09-14 00:00: 00 Yes Jace Donato TAMSULOSIN 09-14 00:00: 00 Yes Jace Donato APAP/CODEIN E 300-30MG 09-14 00:00: 00 Yes Jace Donato levoFLOXaci n 750 mg tablet 09-14 00:00: 00 09-22 00:00 :00 No 750mg Take 750 mg by mouth every 24 (twenty-fo ur) hours. Started on 09/18/22 for five days [facility] celecoxib (CeleBREX) 100 MG capsule 2021-08 00:00: 00 08-13 05:59 :00 No [id number] 100mg Q.5D Take 1 capsule (100 mg total) by mouth in the morning and 1 capsule (100 mg total) in the evening. [facility] orphenadrin e (Norflex) 100 MG 12 hr tablet 2021-08 00:00: 00 Yes 100mg Q.5D Take 100 mg by mouth 2 (two) times a day if needed. [facility] SMZ/TMP DS [id number] 0700-0 9-24 00:00: 00 Yes Jace Donato TAKE 1 TABLET BY MOUTH TWICE A DAY NEEDED 04-14 00:00: 00 Yes Jace Donato TAKE 1 TABLET BY MOUTH TWICE A DAY 07 00:00: 00 Yes Jace Donato TAKE 1 TABLET BY MOUTH EVERY 12 HOURS 03-26 00:00: 00 Yes Jace Donato DISSOLVE 1 TABLET UNDER TONGUE EVERY 8 HOURS NEEDED 02-22 00:00: 00 Yes Jace Donato TAKE 1 CAPSULE BY MOUTH EVERY 8 HOURS NEEDED FOR COUGH AND CONGESTION 02-22 00:00: 00 Yes Jace Donato TAKE 2 TABLETS BY MOUTH TODAY, THEN TAKE 1 TABLET DAILY FOR 4 DAYS 02-22 00:00: 00 Yes Jace Donato INHALE 1 PUFF BY MOUTH EVERY 6 HOURS NEEDED 02-22 00:00: 00 Yes Jace Donato NAPROXEN ORAL 01-25 14:45: 04 Yes 1{tbl} Take 1 tablet by mouth. [facility] tiZANidine 4 mg capsule 01-25 14:45: 04 Yes 4mg Take 4 mg by mouth 3 (three) times daily. [facility] CEPHALEXIN 12-28 00:00: 00 Yes 500 Jace Donato TAKE 1 TABLET BY MOUTH EVERY 6 (SIX) HOURS NEEDED FOR PAIN (SCALE 7-10) FOR UP TO 7 DAYS. 12-28 00:00: 00 Yes Jace Donato DULoxetine 20 mg capsule 10-28 19:13: 47 Yes 20mg Take 20 mg by mouth daily. [facility] TAMSULOSIN 0.4 mg 24 hr capsule 10-28 00:00: 00 02-04 00:00 :00 No [id number] TAKE 1 CAPSULE BY MOUTH EVERY DAY [facility] ibuprofen (MOTRIN IB) 200 mg tablet 10-27 00:00: 00 09-16 00:00 :00 No [id number] 400mg Take 2 tablets by mouth every 6 (six) hours as needed for Pain (scale 1-3). [facility] acetaminoph en 325 mg tablet 10-27 00:00: 00 09-16 00:00 :00 No [id number] 650mg Take 2 tablets by mouth every 6 (six) hours as needed for Pain (scale 1-3). [facility] ibuprofen (MOTRIN IB) 200 mg tablet 10-13 00:00: 00 09-16 00:00 :00 No [id number] 400mg Take 2 tablets by mouth every 6 (six) hours as needed for Pain (scale 1-3). [facility] acetaminoph en 325 mg tablet 10-13 00:00: 00 09-16 00:00 :00 No [id number] 650mg Take 2 tablets by mouth every 6 (six) hours as needed for Pain (scale 1-3). [facility] phenazopyri dine 100 mg tablet 10-13 00:00: 00 09-16 00:00 :00 No [id number] 100mg Take 1 tablet by mouth 3 (three) times daily as needed (Bladder Pain). [facility] sulfamethox azole-trime thoprim (BACTRIM DS) 800-160 mg per tablet 10-12 00:00: 00 09-16 00:00 :00 No [id number] 1{tbl} Take 1 tablet by mouth 2 (two) times daily. [facility] ketorolac 10 mg tablet 09-29 00:00: 00 09-16 00:00 :00 No [id number] 10mg Take 1 tablet by mouth every 6 (six) hours as needed for Pain (scale 1-3). [facility] solifenacin (VESICARE) 10 mg tablet 2020-08 00:00: 00 09-16 00:00 :00 No [id number] 10mg Take 1 tablet by mouth at bedtime. [facility] DULoxetine (Cymbalta) [address] capsule 03-18 00:00: 00 Yes TAKE 1 CAPSULE BY MOUTH EVERY 12 HOURS DIRECTED [facility] traMADoL (ULTRAM) 50 mg tablet 2019-08 00:00: 00 09-16 00:00 :00 No [id number] 50mg Take 1 tablet by mouth every 6 (six) hours as needed for Pain (scale 7-10). Indication s: acute pain [facility] methocarbam oL 750 mg tablet 2019-08 00:00: 09-16 00:00 :00 No [id number] 750mg Take 1 tablet by mouth every 6 (six) hours as needed (MUSCLE SPASM). [facility] metronidazo le 0.75 % vaginal gel 12-24 00:00: 00 Yes 1% Jace Donato furosemide 20 mg tablet 12-24 00:00: 00 Yes 1mg Jace Donato ibuprofen 600 mg tablet 12-24 00:00: 00 Yes 1mg Jace Donato cetirizine 10 mg tablet 10-21 00:00: 00 09-16 00:00 :00 No [id number] 10mg Take 1 tablet by mouth daily. [facility] fluticasone propionate 50 mcg/actuati on nasal spray 10-21 00:00: 00 09-16 00:00 :00 No [id number] 2{spray } Use 2 Sprays in each nostril daily. [facility] metronidazo le 500 mg tablet 09-28 00:00: 00 Yes 1mg Jace Donato naproxen 500 mg tablet 09-28 00:00: 00 Yes 1mg Jace Donato fluconazole 150 mg tablet 09-28 00:00: 00 Yes mg Jace Donato clindamycin HCl 300 mg capsule 09-28 00:00: 00 Yes 1mg Jace Donato ipratropium bromide 0.02 % solution for inhalation 04-16 00:00: 00 Yes % Jace Donato prednisone 20 mg tablet 03-14 00:00: 00 Yes 1mg Jace Donato cyclobenzap rine 5 mg tablet 03-14 00:00: 00 Yes 12mg Jace Donato cyclobenzap rine 10 mg tablet 03-14 00:00: 00 Yes 1mg Jace Donato tizanidine 4 mg tablet 03-14 00:00: 00 Yes 1mg Jace Donato methocarbam ol 500 mg oral tablet 10-11 15:24: 00 Yes 500 mg = 1 tab, PO, Q8H, X 5 day, # 15 tab, 0 Refill(s) Dmitry Gonzalez heparin 10-10 05:55: 00 No Notes: porcine heparin Dmitry Gonzalez remove patch 10-10 03:00: 00 No 1 patch, Route: TOP, Bedtime, Drug form: ERFILM, Start date: 10/09/18 21:00:00 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, Duration: 30 day, Stop date: 11/07/18 21:00:00 CDT Dmitry Gonzalez Robaxin 10-09 19:00: 00 No Notes: (Same as:Robaxin ) Dmitry Gonzalez Lyrica 10-09 15:18: 00 No Notes: (Same as: Lyrica) Dmitry Gonzalez Miralax 10-09 15:17: 00 No Notes: Dissolve in 8 oz of water or juice. (Same as: Miralax) Dmitry Gonzalez Lidocaine 0.05 MG/MG Transdermal Patch 10-09 15:00: 00 No 1 patch, Route: TOP, Daily, Drug form: FILM, Start date: 10/09/18 9:00:00 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, Duration: 30 day, Stop date: 11/07/18 9:00:00 CDT Dmitry Gonzalez Tramadol 10-09 04:24: 00 No Notes: Not to exceed 400mg/day. (Same As: Ultram) Dmitry Gonzalez Keppra 10-09 03:00: 00 No Notes: (Same as:Keppra) Dmitry Gonzalez sennosides, LONGTERM 10-09 03:00: 00 No Notes: (Same as: Senokot) Dmitry Gonzalez Docusate 10-09 03:00: 00 No 100 mg, 1 cap, Route: PO, Drug form: CAP, Q12H, Dosing Weight 95.455, kg, Start date: 10/08/18 21:00:00 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, Duration: 30 day, Stop date: 11/07/18 9:00:00 CDT Dmitry Gonzalez Artificial Tears 10-08 23:00: 00 No 2 drp, Route: BOTH EYES, BID, Drug form: SOLN, Start date: 10/08/18 17:00:00 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, Duration: 30 day, Stop date: 11/07/18 9:00:00 CDT Dmitry Gonzalez Vancomycin 10-08 22:00: 00 No 1 gm, Route: IV, Q8H, Dosing Weight 95.455, kg, Start date: 10/08/18 16:00:00 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, Duration: 1 day, Stop date: 10/09/18 8:00:00 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, ABX Indication : Surgical Prophylaxi s Dmitry Gonzalez Glucagon 10-08 20:19: 00 No 1 mg, Route: IM, Drug form: PDR/INJ, PRN, Dosing Weight 95.455, kg, PRN Blood Glucose Results, Start date: 10/08/18 14:19:00 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, Duration: 30 day, Stop date: 11/07/18 15:18:00 CDT Dmitry Gonzalez Dextrose 50% Syringe 10-08 20:19: 00 No 25 gm, 50 mL, Route: IVP, Drug Form: INJ, Dosing Weight 95.455, kg, PRN, PRN Blood Glucose Results, Start date: 10/08/18 14:19:00 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, Duration: 30 day, Stop date: 11/07/18 15:18:00 CDT Dmitry Gonzalez Insulin regular 10-08 20:19: 00 No 60 units) WASTE: F/P - Black; E - Municipal Trash Bin Stable for 28 days at room temperatur e Expires in days from ____Date Dmitry Gonzalez Potassium Chloride 10-08 20:18: 00 No Notes: (Same as: KCL) Infuse over 2 hours. Dmitry Gonzalez Calcium Gluconate 10-08 20:18: 00 No Notes: WASTE: F/P - Sink; E - Municipal Trash Bin Dmitry Gonzalez Magnesium Oxide 10-08 20:18: 00 No Notes: (Same as: Mag-Ox 400) Magnesium oxide [id number] g elemental magnesium Dose=____m g magnesium oxide (___mg elemental magnesium) Dmitry Gonzalez Calcium Carbonate 500 MG Chewable Tablet 10-08 20:18: 00 No Notes: (Same As: Tums) Calcium Carbonate 500 mg = 200 mg elemental calcium Dose = mg calcium carbonate ( mg elemental calcium) Dmitry Gonzalez potassium phosphate 10-08 20:18: 00 No Notes: (Same as: K Phosphate. ) Do not infuse phosphorou s concurrent ly in the same line as TPN or IVF that contains calcium. For double lumen central lines, phosphorou s may be infused in a separate lumen from TPN. 1 mMol phoshate has 1.47 mEq potassium Infuse over 4 hours Dmitry pauly Carlos potassium phosphate-s odium phosphate 250 mg-280 mg-160 mg oral powder for reconstitut ion 10-08 20:18: 00 No Notes: (Same as: Phos-NaK) Each 1.5 gm pkt has 250mg phosphorou s. Mix w/2.5oz water and stir. Dmitry Gonzalez Magnesium Sulfate 10-08 20:18: 00 No Notes: WASTE: F/P - Sink; E - Municipal Trash Bin Dmitry Gonzalez sodium phosphate 10-08 20:18: 00 No Notes: Infuse over 4 hour. Do not infuse phosphorou s concurrent ly in the same line as TPN or IVF that contains calcium. For double lumen central lines, phosphorou s may be infused in a separate lumen from TPN. Dmitry Gonzalez Hydralazine 10-08 18:18: 00 No 10 mg, Route: IVP, Q20Min, Dosing Weight 95.455, kg, PRN Elevated BP, Start date: 10/08/18 12:18:00 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, Duration: 2 doses or times, Stop date: Limited # of times Dmitry Gonzalez Labetalol 10-08 18:18: 00 No 10 mg, 2 mL, Route: IVP, Drug form: INJ, Q5Min, Dosing Weight 95.455, kg, PRN Elevated BP, Start date: 10/08/18 12:18:00 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, Duration: 5 doses or times, Stop date: 10/09/18 0:00:00 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 Dmitry Gonzalez Acetaminoph en 10-08 18:18: 00 No 1,000 mg, Route: PO, Drug form: TAB, ONCE, Dosing Weight 95.455, kg, PRN Pain Score 1-3, Start date: 10/08/18 12:18:00 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 Dmitry Gonzalez Promethazin e 10-08 18:18: 00 No 6.25 mg, Route: IVPB, ONCE, Dosing Weight 95.455, kg, PRN Nausea & Vomiting, Start date: 10/08/18 12:18:00 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 Dmitry Gonzalez Naloxone 10-08 18:18: 00 No 0.4 mg, Route: IVP, Q2MIN, Dosing Weight 95.455, kg, PRN Narcotic Reversal, Start date: 10/08/18 12:18:00 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, Duration: 8 doses or times, Stop date: Limited # of times Dmitry Gonzalez Flumazenil 10-08 18:18: 00 No 0.2 mg, Route: IVP, PRN, Dosing Weight 95.455, kg, PRN Benzodiaze pine Reversal, Initial dose, Start date: 10/08/18 12:18:00 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, Duration: 30 day, Stop date: 11/07/18 13:17:00 CDT Dmitry Gonzalez Hydromorpho ne 10-08 18:18: 00 No 0.5 mg, Route: IVP, Q5Min, Dosing Weight 95.455, kg, PRN Pain Score 7-10, Start date: 10/08/18 12:18:00 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, Duration: 4 doses or times, Stop date: Limited # of times Dmitry Gonzalez sugammadex 10-08 18:00: 00 No Notes: (Same as: Bridion) Dmitry Gonzalez famotidine (ANES) 10-08 17:59: 00 No Route: IV, Drug form: INJ, ONCE, Stop date: 10/08/18 11:59:00 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 Dmitry Gonzalez metoclopram anais (ANES) 10-08 17:59: 00 No Route: IV, Drug form: INJ, ONCE, Stop date: 10/08/18 11:59:00 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 Dmitry Gonzalez ondansetron (ANES) 10-08 17:59: 00 No Route: IV, Drug form: INJ, ONCE, Stop date: 10/08/18 11:59:00 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 Dmitry Gonzalez phenylephri ne (ANES) 10-08 17:57: 00 No Route: IV, Drug form: INJ, ONCE, Stop date: 10/08/18 11:57:00 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 Dmitry Gonzalez dexamethaso ne (ANES) 10-08 17:51: 00 No Route: IV, Drug form: INJ, ONCE, Stop date: 10/08/18 11:51:00 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 Dmitry Gonzalez lidocaine (ANES) 10-08 17:51: 00 No Route: IV, Drug form: INJ, ONCE, Stop date: 10/08/18 11:51:00 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 Dmitry Gonzalez rocuronium (ANES) 10-08 17:51: 00 No Route: IV, Drug form: INJ, ONCE, Stop date: 10/08/18 11:51:00 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[employer] Dmitry Gonzalez levETIRAcet am (ANES) 10-08 17:51: 00 No Route: IV, Drug form: INJ, ONCE, Stop date: 10/08/18 11:51:00 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[employer] Dmitry Gonzalez fentaNYL (ANES) 10-08 17:51: 00 No Route: IV, Drug form: INJ, ONCE, Stop date: 10/08/18 11:51:00 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 Dmitry Gonzalez propofol (ANES) 10 mg 10-08 16:30: 00 No Route: IV, Drug form: INJ, Start date: 10/08/18 10:30:00 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, Stop date: 10/08/18 11:30:00 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[employer] Dmitry Gonzalez remifentani l (ANES) 1 mg 10-08 16:30: 00 No Route: IV, Drug form: INJ, Start date: 10/08/18 10:30:00 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, Stop date: 10/08/18 11:30:00 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 Dmitry Gonzalez Sodium Chloride 0.9% IV (ANES) 235 mL + vancomycin (ANES) 1500 mg 10-08 16:25: 00 No Route: IV, Drug form: INJ, Start date: 10/08/18 10:25:00 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, Stop date: 10/08/18 11:25:00 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[employer] Dmitry Gonzalez Isolyte S PH 7.4 (ANES) 1000 mL 10-08 16:09: 00 No Route: IV, Total Volume: 1,000, Start date: 10/08/18 10:09:00 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, Stop date: 10/08/18 11:09:00 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[employer] Dmitry Gonzalez Levetiracet am 10-08 15:57: 00 No Notes: Same as Keppra Mix with 100 mL NS, LR or D5W MEDICATION WASTE Product Size: 500 mg Product Wasted: ___ mg Dmitry Gonzalez Albuterol 0.833 MG/ML / Ipratropium [place] 0.167 MG/ML Inhalant Solution 10-08 15:57: 00 No 3 ml, Route: NEB, Drug Form: SOLN, Dosing Weight 95.455, kg, RQ4H, PRN Wheezing, Start date: 10/08/18 9:57:00 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, Duration: 30 day, Stop date: 11/07/18 9:56:00 CDT Dmitry Gonzalez Acetaminoph en 10-08 15:57: 00 No 100.4 F, Start date: 10/08/18 9:57:00 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, Duration: 30 day, Stop date: 11/07/18 9:56:00 CDT Dmitry Gonzalez Bisacodyl 10-08 15:57: 00 No 10 mg, 1 supp, Route: VT, Drug form: SUPP, Daily, Dosing Weight 95.455, kg, PRN Constipati on, Start date: 10/08/18 9:57:00 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, Duration: 30 day, Stop date: 11/07/18 9:56:00 CDT Dmitry Gonzalez Saline Flush 0.9% 10-08 15:57: 00 No Notes: (Same as: BD Posiflush) Dmitry Gonzalez Hydralazine 10-08 15:57: 00 No 20 mg, 1 mL, Route: IVP, Drug form: INJ, Q4H, Dosing Weight 95.455, kg, PRN Hypertensi on, Start date: 10/08/18 9:57:00 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, Duration: 30 day, Stop date: 11/07/18 9:56:00 CDT Dmitry Gonzalez Labetalol 10-08 15:57: 00 No 10 mg, 2 mL, Route: IVP, Drug form: INJ, Q15Min, Dosing Weight 95.455, kg, PRN Hypertensi on, Start date: 10/08/18 9:57:00 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, Duration: 30 day, Stop date: 11/07/18 10:56:00 CDT Dmitry Gonzalez Ondansetron 10-08 15:57: 00 No Notes: MEDICATION WASTE Product Size: 4 mg Product Wasted: ___ mg Dmitry Gonzalez Zofran 10-08 15:09: 00 No 4 mg, Route: IVP, Drug form: INJ, ONCE, Dosing Weight 95.455, kg, Priority: STAT, Start date: 10/08/18 9:09:00 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, Stop date: 10/08/18 9:09:00 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 Dmitry Gonzalez Sodium Chloride 0.9% (Bolus) IV 10-08 15:09: 00 No 1,000 mL, Infuse Over: 1 hr, Route: IV, ONCE, Priority: STAT, Dosing Weight 95.455 kg, Start date: 10/08/18 9:09:00 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, Stop date: 10/08/18 9:09:00 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 Dmitry Gonzalez Morphine 10-08 15:09: 00 No 4 mg, Route: IVP, ONCE, Dosing Weight 95.455, kg, Priority: STAT, Start date: 10/08/18 9:09:00 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, Stop date: 10/08/18 9:09:00 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[employer] Ebenlacey coats Carlos Cipro 500 mg tablet 2017-08 00:00: 00 Yes 1mg Jace Donato ciprofloxac in 500 mg tablet 02-21 00:00: 00 Yes 1mg Jace Donato cyclobenzap rine 10 mg tablet 02-21 00:00: 00 Yes 1mg Jace Donato Flagyl 500 mg tablet 10-18 00:00: 00 Yes 1mg Jace Donato naproxen 500 mg tablet 10-28 00:00: 00 Yes 1mg Jace Donato Cipro 500 mg tablet 10-28 00:00: 00 Yes 1mg Jace Donato cyclobenzap rine 10 mg tablet 10-28 00:00: 00 Yes 1mg Jace Donato promethazin e-DM 6.25 mg-15 mg/5 mL syrup 10-28 00:00: 00 Yes 10mg/5 mL Jace Donato hydroxyzine HCl 50 mg tablet 12-02 00:00: 00 Yes 1mg Jace Donato tramadol 50 mg tablet 11-13 00:00: 00 Yes 1mg Jace Donato No Known Medications No Known Medications No [facility] Vital Signs Vital Name Observation Time Observation Value Comments S ource height 2025-04-23 13:45:00 68.5 [in_i] Comm on [facility] weight 2025-04-23 13:45:00 195 [lb_av] Comm on [facility] temperature 2025-04-23 13:45:00 97.6 [degF] Com [facility] bmi 2025-04-23 13:45:00 29.22 kg/m2 Comm on [facility] oximetry 2025-04-23 13:45:00 98 % Commo n [facility] respiratory rate 2025-04-23 13:45:00 18 /min [facility] blood pressure systolic 2025-04-23 13:45:00 137 mm[Hg] [facility] blood pressure diastolic 2025-04-23 13:45:00 70 mm[Hg] [facility] height 2024-02-29 14:10:00 68.5 [in_i] Comm on [facility] weight 2024-02-29 14:10:00 218 [lb_av] Comm on [facility] temperature 2024-02-29 14:10:00 97.3 [degF] Com mon [facility] bmi 2024-02-29 14:10:00 32.66 kg/m2 Comm on [facility] oximetry 2024-02-29 14:10:00 98 % Commo n [facility] blood pressure systolic 2024-02-29 14:10:00 138 mm[Hg] [facility] blood pressure diastolic 2024-02-29 14:10:00 74 mm[Hg] [facility] height 2024-01-30 08:30:00 68.5 [in_i] Comm on [facility] weight 2024-01-30 08:30:00 219.0 [lb_av] Co mmon [facility] temperature 2024-01-30 08:30:00 98.0 [degF] Com mon [facility] bmi 2024-01-30 08:30:00 32.81 kg/m2 Comm on [facility] oximetry 2024-01-30 08:30:00 97 % Commo n [facility] respiratory rate 2024-01-30 08:30:00 18 /min [facility] blood pressure systolic 2024-01-30 08:30:00 130 mm[Hg] [facility] blood pressure diastolic 2024-01-30 08:30:00 76 mm[Hg] [facility] height 2023-02-17 07:50:00 68.5 [in_i] Comm on [facility] weight 2023-02-17 07:50:00 215 [lb_av] Comm on [facility] bmi 2023-02-17 07:50:00 32.21 kg/m2 Comm on [facility] blood pressure systolic 2023-02-17 07:50:00 132 mm[Hg] [facility] blood pressure diastolic 2023-02-17 07:50:00 70 mm[Hg] Common [facility] Systolic blood pressure 2023-02-04 16:33:00 137 mm[Hg] [facility] Diastolic blood pressure 2023-02-04 16:33:00 82 mm[Hg] [facility] Heart rate 2023-02-04 16:33:00 92 /min [facility] Respiratory rate 2023-02-04 16:33:00 18 /min [facility] Body height 2023-02-04 16:33:00 172.7 cm [facility] Body weight 2023-02-04 16:33:00 99.338 kg [facility] BMI 2023-02-04 16:33:00 33.30 kg/m2 [facility] Oxygen saturation in Arterial blood by Pulse oximetry 2023-02-04 16:33:00 98 /min [facility] Systolic blood pressure 2023-01-05 19:46:00 132 mm[Hg] [facility] Diastolic blood pressure 2023-01-05 19:46:00 89 mm[Hg] [facility] Heart rate 2023-01-05 19:46:00 79 /min [facility] Body temperature 2023-01-05 19:46:00 36.11 [facility] Respiratory rate 2023-01-05 19:46:00 18 /min [facility] Body height 2023-01-05 19:46:00 172.7 cm [facility] Body weight 2023-01-05 19:46:00 99.565 kg [facility] BMI 2023-01-05 19:46:00 33.37 kg/m2 [facility] height 2022-12-31 09:00:00 68.5 [in_i] Comm on [facility] weight 2022-12-31 09:00:00 216.2 [lb_av] Co mmon [facility] temperature 2022-12-31 09:00:00 98.3 [degF] Com mon [facility] bmi 2022-12-31 09:00:00 32.39 kg/m2 Comm on [facility] oximetry 2022-12-31 09:00:00 98 % Commo n [facility] respiratory rate 2022-12-31 09:00:00 18 /min Common [facility] blood pressure systolic 2022-12-31 09:00:00 136 mm[Hg] [facility] blood pressure diastolic 2022-12-31 09:00:00 77 mm[Hg] [facility] Systolic blood pressure 2022-10-28 17:06:00 145 mm[Hg] [facility] Diastolic blood pressure 2022-10-28 17:06:00 92 mm[Hg] [facility] Heart rate 2022-10-28 17:06:00 76 /min [facility] Oxygen saturation in Arterial blood by Pulse oximetry 2022-10-28 16:56:00 96 /min [facility] Body temperature 2022-10-28 16:54:00 36.5 [facility] Respiratory rate 2022-10-28 16:54:00 18 /min [facility] Body height 2022-10-28 16:54:00 172.7 cm [facility] Body weight 2022-10-28 16:54:00 96.616 kg [facility] BMI 2022-10-28 16:54:00 32.39 kg/m2 [facility] height 2022-10-08 16:00:00 68.5 [in_i] Comm on [facility] weight 2022-10-08 16:00:00 213 [lb_av] Comm on [facility] bmi 2022-10-08 16:00:00 31.91 kg/m2 Comm on [facility] Systolic blood pressure 2022-09-22 17:55:00 144 mm[Hg] [facility] Diastolic blood pressure 2022-09-22 17:55:00 81 mm[Hg] [facility] Heart rate 2022-09-22 17:55:00 70 /min [facility] Body temperature 2022-09-22 17:55:00 36.33 [facility] Oxygen saturation in Arterial blood by Pulse oximetry 2022-09-22 17:55:00 92 /min [facility] Respiratory rate 2022-09-22 17:30:00 18 /min [facility] Body height 2022-09-22 06:07:00 172.7 cm [facility] Body weight 2022-09-22 06:07:00 96.616 kg [facility] BMI 2022-09-22 06:07:00 32.39 kg/m2 [facility] Systolic blood pressure 2022-09-22 16:45:00 141 mm[Hg] [facility] Diastolic blood pressure 2022-09-22 16:45:00 84 mm[Hg] [facility] Respiratory rate 2022-09-22 16:45:00 19 /min [facility] Oxygen saturation in Arterial blood by Pulse oximetry 2022-09-22 16:45:00 97 /min [facility] Heart rate 2022-09-22 16:38:00 92 /min [facility] Body temperature 2022-09-22 16:38:00 36 [facility] Body height 2022-09-22 06:07:00 172.7 cm [facility] Body weight 2022-09-22 06:07:00 96.616 kg [facility] BMI 2022-09-22 06:07:00 32.39 kg/m2 [facility] Systolic blood pressure 2022-09-17 23:20:00 152 mm[Hg] [facility] Diastolic blood pressure 2022-09-17 23:20:00 88 mm[Hg] [facility] Heart rate 2022-09-17 23:20:00 75 /min [facility] Respiratory rate 2022-09-17 23:20:00 16 /min [facility] Oxygen saturation in Arterial blood by Pulse oximetry 2022-09-17 23:20:00 97 /min [facility] Body temperature 2022-09-17 22:02:00 36.44 [facility] Body height 2022-09-17 20:03:00 [facility]7 [facility] 2022-09-17 20:03:00 96.616 kg [facility] BMI 2022-09-17 20:03:00 32.39 kg/m2 [facility] Systolic blood pressure 2022-09-17 20:03:00 135 mm[Hg] [facility] Diastolic blood pressure 2022-09-17 20:03:00 88 mm[Hg] [facility] Heart rate 2022-09-17 20:03:00 75 /min [facility] Body temperature 2022-09-17 20:03:00 36.5 [facility] Respiratory rate 2022-09-17 20:03:00 18 /min [facility] Body height 2022-09-17 20:03:00 172.7 cm [facility] Body weight 2022-09-17 20:03:00 96.616 kg [facility] BMI 2022-09-17 20:03:00 32.39 kg/m2 [facility] Oxygen saturation in Arterial blood by Pulse oximetry 2022-09-17 20:03:00 99 /min [facility] Systolic blood pressure 2022-09-15 21:32:00 146 mm[Hg] [facility] Diastolic blood pressure 2022-09-15 21:32:00 96 mm[Hg] [facility] Heart rate 2022-09-15 21:32:00 83 /min [facility] Body temperature 2022-09-15 21:31:00 36.28 [facility] Respiratory rate 2022-09-15 21:31:00 18 /min [facility] Body height 2022-09-15 21:31:00 172.7 cm [facility] Body weight 2022-09-15 21:31:00 96.888 kg [facility] BMI 2022-09-15 21:31:00 32.48 kg/m2 [facility] Oxygen saturation in Arterial blood by Pulse oximetry 2022-09-15 21:31:00 98 /min [facility] Systolic blood pressure 2022-07-28 16:13:00 134 mm[Hg] [facility] Diastolic blood pressure 2022-07-28 16:13:00 87 mm[Hg] [facility] Heart rate 2022-07-28 16:13:00 92 /min [facility] Body temperature 2022-07-28 16:13:00 36.56 [facility] Respiratory rate 2022-07-28 16:13:00 18 /min [facility] Body height 2022-07-28 16:13:00 170.2 cm [facility] Body weight 2022-07-28 16:13:00 95.981 kg [facility] BMI 2022-07-28 16:13:00 33.14 kg/m2 [facility] Oxygen saturation in Arterial blood by Pulse oximetry 2022-07-28 16:13:00 99 /min [facility] height 2022-07-28 09:20:00 68.5 [in_i] Comm on [facility] weight 2022-07-28 09:20:00 213 [lb_av] Comm on [facility] temperature 2022-07-28 09:20:00 98 [degF] Comm on [facility] bmi 2022-07-28 09:20:00 31.91 kg/m2 Comm on [facility] blood pressure systolic 2022-07-28 09:20:00 125 mm[Hg] Common [facility] blood pressure diastolic 2022-07-28 09:20:00 72 mm[Hg] [facility] Systolic blood pressure 2022-07-13 18:25:00 136 mm[Hg] [facility] Diastolic blood pressure 2022-07-13 18:25:00 92 mm[Hg] [facility] Heart rate 2022-07-13 18:25:00 84 /min [facility] Body height 2022-07-13 18:25:00 [facility].7 [facility] Body weight 2022-07-13 18:25:00 [facility]255 [facility] BMI 2022-07-13 18:25:00 31.93 kg[facility]m2 [facility] height 2022-04-28 16:10:00 68.5 [in_i] Comm on [facility] weight 2022-04-28 16:10:00 215 [lb_av] Comm on [facility] temperature 2022-04-28 16:10:00 97 [degF] Comm on [facility] bmi 2022-04-28 16:10:00 32.21 kg/m2 Comm on [facility] blood pressure systolic 2022-04-28 16:10:00 122 mm[Hg] [facility] blood pressure diastolic 2022-04-28 16:10:00 75 mm[Hg] [facility] height 2022-01-27 09:10:00 68.5 [in_i] Comm on [facility] weight 2022-01-27 09:10:00 212 [lb_av] Comm on [facility] temperature 2022-01-27 09:10:00 98 [degF] Comm on [facility] bmi 2022-01-27 09:10:00 31.76 kg/m2 Comm on [facility] blood pressure systolic 2022-01-27 09:10:00 128 mm[Hg] Common [facility] blood pressure diastolic 2022-01-27 09:10:00 76 mm[Hg] [facility] Systolic blood pressure 2022-01-25 19:43:00 131 mm[Hg] [facility] Diastolic blood pressure 2022-01-25 19:43:00 85 mm[Hg] [facility] Heart rate 2022-01-25 19:43:00 80 /min [facility] 2022-01-25 19:43:00 35.94 [facility] Respiratory rate 2022-01-25 19:43:00 18 /min [facility] Body height 2022-01-25 19:43:00 172.7 cm [facility] Body weight 2022-01-25 19:43:00 94.802 kg [facility] BMI 2022-01-25 19:43:00 31.78 kg/m2 [facility] height 2021-12-25 10:40:00 68.5 [in_i] Comm on [facility] weight 2021-12-25 10:40:00 211.8 [lb_av] Co mmon [facility] temperature 2021-12-25 10:40:00 97.8 [degF] Com mon [facility] bmi 2021-12-25 10:40:00 31.73 kg/m2 Comm on [facility] oximetry 2021-12-25 10:40:00 96 % Commo n [facility] respiratory rate 2021-12-25 10:40:00 17 /min Common [facility] blood pressure systolic 2021-12-25 10:40:00 132 mm[Hg] [facility] [facility] blood pressure diastolic 2021-12-25 10:40:00 70 mm[Hg] [facility] height 2021-09-22 16:20:00 68.5 [in_i] Comm on [facility] weight 2021-09-22 16:20:00 215 [lb_av] Comm on [facility] bmi 2021-09-22 16:20:00 32.21 kg/m2 Comm on [facility] height 2021-06-30 07:40:00 68.5 [in_i] Comm on [facility] weight 2021-06-30 07:40:00 215 [lb_av] Comm on [facility] temperature 2021-06-30 07:40:00 97.3 [degF] Com mon [facility] bmi 2021-06-30 07:40:00 32.21 kg/m2 Comm on [facility] blood pressure systolic 2021-06-30 07:40:00 135 mm[Hg] [facility] blood pressure diastolic 2021-06-30 07:40:00 72 mm[Hg] [facility] BP Systolic 2024-09-06 11:34:00 140 mm[Hg] Step hen F Tanmay BP Diastolic 2024-09-06 11:34:00 97 mm[Hg] Ernie phen F Tanmay Weight Measured 2024-09-06 11:34:00 225.00 pounds Jace F Tanmay Height Measured 2024-09-06 11:34:00 68.00 inches Jace F Tanmay Body Temperature 2024-09-06 11:34:00 97.60 degrees Jace F Tanmay Heart Rate 2024-09-06 11:34:00 75.00 /min Shama en F Tanmay Respiratory Rate 2024-09-06 11:34:00 18.00 /min Jace F Tanmay BP Systolic 2023-10-06 14:56:00 137 mm[Hg] Step hen F Tanmay BP Diastolic 2023-10-06 14:56:00 87 mm[Hg] Ernie phen F Tanmay Weight Measured 2023-10-06 14:56:00 215.80 pounds Jace F Tanmay Height Measured 2023-10-06 14:56:00 68.00 inches Jace F Tanmay Body Temperature 2023-10-06 14:56:00 98.20 degrees Jace F Tanmay Heart Rate 2023-10-06 14:56:00 75.00 /min Shama en F Tanmay Respiratory Rate 2023-10-06 14:56:00 Jace F Tanmay BP Systolic 2023-07-04 14:06:00 149 mm[Hg] Step hen F Tanmay BP Diastolic 2023-07-04 14:06:00 91 mm[Hg] Ernie phen F Tanmay Weight Measured 2023-07-04 14:06:00 215.20 pounds Jace F Tanmay Height Measured 2023-07-04 14:06:00 68.00 inches Jace F Tanmay Body Temperature 2023-07-04 14:06:00 98.10 degrees Jace F Tanmay Heart Rate 2023-07-04 14:06:00 83.00 /min Shama en F Tanmay Respiratory Rate 2023-07-04 14:06:00 16.00 /min Jace F Tanmay BP Systolic 2023-07-04 13:51:00 149 mm[Hg] Step hen F Tanmay BP Diastolic 2023-07-04 13:51:00 91 mm[Hg] Ernie phen F Tanmay Weight Measured 2023-07-04 13:51:00 215.20 pounds Jace F Tanmay Height Measured 2023-07-04 13:51:00 68.00 inches Jace F Tanmay Body Temperature 2023-07-04 13:51:00 98.10 degrees Jace F Tanmay Heart Rate 2023-07-04 13:51:00 83.00 /min Shama en F Tanmay Respiratory Rate 2023-07-04 13:51:00 16.00 /min Jace F Tanmay BP Systolic 2022-11-19 14:28:00 147 mm[Hg] Step hen F Tanmay BP Diastolic 2022-11-19 14:28:00 98 mm[Hg] Ernie phen F Tanmay Weight Measured 2022-11-19 14:28:00 215.80 pounds Jace F Tanmay Height Measured 2022-11-19 14:28:00 68.00 inches Jace F Tanmay Body Temperature 2022-11-19 14:28:00 98.00 degrees Jace F Tanmay Heart Rate 2022-11-19 14:28:00 74.00 /min Shama en F Tanmay Respiratory Rate 2022-11-19 14:28:00 16.00 /min Jace F Tanmay BP Systolic 2019-09-28 16:58:00 137 mm[Hg] Step hen F Tanmay BP Diastolic 2019-09-28 16:58:00 87 mm[Hg] Ernie phen F Tanmay Weight Measured 2019-09-28 16:58:00 219.20 pounds Jace F Tanmay Height Measured 2019-09-28 16:58:00 68.00 inches Jace F Tanmay Body Temperature 2019-09-28 16:58:00 98.00 degrees Jace F Tanmay Heart Rate 2019-09-28 16:58:00 79.00 /min Shama en F Tanmay Respiratory Rate 2019-09-28 16:58:00 16.00 /min Jace F Tanmay BP Systolic 2019-04-16 16:31:00 127 mm[Hg] Step hen F Tanmay BP Diastolic 2019-04-16 16:31:00 82 mm[Hg] Ernie phen F Tanmay Weight Measured 2019-04-16 16:31:00 206.40 pounds Jace F Tanmay Height Measured 2019-04-16 16:31:00 68.00 inches Jace F Tanmay Body Temperature 2019-04-16 16:31:00 98.70 degrees Jace F Tanmay Heart Rate 2019-04-16 16:31:00 88.00 /min Shama en F Tanmay Respiratory Rate 2019-04-16 16:31:00 16.00 /min Jace F Tanmay BP Systolic 2019-03-14 15:12:00 130 mm[Hg] Step hen F Tanmay BP Diastolic 2019-03-14 15:12:00 86 mm[Hg] Ernie phen F Tanmay Weight Measured 2019-03-14 15:12:00 215.20 pounds Jace Donato Height Measured 2019-03-14 15:12:00 68.00 inches Jace F Tanmay Body Temperature 2019-03-14 15:12:00 98.10 degrees Jace F Tanmay Heart Rate 2019-03-14 15:12:00 88.00 /min Shama en F Tanmay Respiratory Rate 2019-03-14 15:12:00 17.00 /min Jace F Tanmay Heart Rate 2018-10-11 17:26:00 [facility] [place] Temperature Oral (F) 2018-10-11 17:26:00 97.9 F [facility] Respitory Rate 2018-10-11 17:26:00 [facility] Systolic (mm Hg) 2018-10-11 17:26:00 [facility] [place] Diastolic (mm Hg) 2018-10-11 17:26:00 [facility] [place] Systolic (mm Hg) 2018-10-11 13:44:00 [facility] Diastolic (mm Hg) 2018-10-11 13:44:00 [facility] [place] Respitory Rate 2018-10-11 13:44:00 [facility] [place] Heart Rate 2018-10-11 13:44:00 [facility] [place] Temperature Oral (F) 2018-10-11 13:44:00 99.1 F [facility] Temperature Oral (F) 2018-10-11 10:47:00 97.9 F [facility] Heart Rate 2018-10-11 10:47:00 [facility] [place] Respitory Rate 2018-10-11 10:47:00 [facility] Systolic (mm Hg) 2018-10-11 10:47:00 [facility] [place] Diastolic (mm Hg) 2018-10-11 10:47:00 [facility] Weight 2018-10-08 21:12:00 [facility] [place] Weight 2018-10-08 14:38:00 [facility] [place] Height 2018-10-08 14:38:00 172.72 cm [facility] BMI Calculated 2018-10-08 14:38:00 [facility] BP Systolic 2018-07-06 14:28:00 124 mm[Hg] Step hen F Tanmay BP Diastolic 2018-07-06 14:28:00 86 mm[Hg] Ernie phen F Tanmay Weight Measured 2018-07-06 14:28:00 215.20 pounds Jace F Tanmay Height Measured 2018-07-06 14:28:00 68.00 inches Jace F Tanmay Body Temperature 2018-07-06 14:28:00 98.10 degrees Jace F Tanmay Heart Rate 2018-07-06 14:28:00 85.00 /min Shama en F Tanmay Respiratory Rate 2018-07-06 14:28:00 18.00 /min Jace F Tanmay BP Systolic 2018-02-21 10:10:00 131 mm[Hg] Step hen F Tanmay BP Diastolic 2018-02-21 10:10:00 91 mm[Hg] Ernie phen F Tanmay Weight Measured 2018-02-21 10:10:00 209.40 pounds Jace F Tanmay Height Measured 2018-02-21 10:10:00 68.00 inches Jace F Tanmay Body Temperature 2018-02-21 10:10:00 98.30 degrees Jace F Tanmay Heart Rate 2018-02-21 10:10:00 70.00 /min Shama en F Tanmay Respiratory Rate 2018-02-21 10:10:00 18.00 /min Jace F Tanmay Procedures Procedure Date / Time Performed Performing Clinician Source EXTERNAL PROVIDER RECORDS 2023-02-21 05:01:00 Do ctor Unassigned, [facility] EXTERNAL PROVIDER RECORDS 2023-02-15 05:01:00 Do ctor Unassigned, [facility] REFERRAL- REQUEST/RESPONSE 2023-02-07 05:01:00 D octor Unassigned, [facility] EXTERNAL PROVIDER RECORDS 2023-01-25 05:01:00 Do ctor Unassigned, [facility] GALV ONLY - VAGINAL PATHOGENS BY NUCLEIC ACID TESTING 2023-01-05 20:29:00 Betty Iverson [facility] POCT URINALYSIS W/O SPECIFIC GRAVITY 2023-01-05 19:49:00 Betty Iverson [facility] ASSIGNMENT OF BENEFITS 2023-01-05 19:26:01 Docto r Unassigned, [facility] POCT URINALYSIS AUTO 2022-10-28 17:08:00 Alfred Ayala [facility] FL TIME OR (NON-REPORTABLE) 2022-09-22 16:22:00 Zuri Lloyd [facility] FL TIME OR (NON-REPORTABLE) 2022-09-22 16:22:00 Zuri Lloyd [facility] URETEROSCOPIC STONE MANIPULATION 2022-09-22 15:25:00 Adiel Chandra [facility] PROTHROMBIN TIME / INR 2022-09-22 10:08:00 Zuri Lloyd [facility] PROTHROMBIN TIME / INR 2022-09-22 10:08:00 Zuri Lloyd [facility] BASIC METABOLIC PANEL (NA, K, CL, CO2, GLUCOSE, BUN, CREATININE, CA) 2022-09-22 10:03:00 Zuri Lloyd [facility] CBC WITHOUT DIFF 2022-09-22 10:03:00 Zuri Lloyd [facility] BASIC METABOLIC PANEL (NA, K, CL, CO2, GLUCOSE, BUN, CREATININE, CA) 2022-09-22 10:03:00 Zuri Lloyd [facility] CBC WITHOUT DIFF 2022-09-22 10:03:00 [facility]EL[facility] W CONTRAST 2022-09-22 00:18:00 Diogenes Eckert [facility] CT ABDOMEN PELVIS W CONTRAST 2022-09-22 00:18:00 Diogenes Eckert [facility] COMP. METABOLIC PANEL ([id number]) 2022-09-21 21:39:00 Diogenes Eckert [facility] CBC WITH DIFF 2022-09-21 21:39:00 Diogenes Eckert [facility] URINALYSIS 2022-09-21 21:39:00 Diogenes Eckert [facility] LACTIC ACID WHOLE BLOOD 2022-09-21 21:39:00 Diogenes Eckert [facility] COMP. METABOLIC PANEL ([id number]) 2022-09-21 21:39:00 Diogenes Eckert [facility] CBC WITH DIFF 2022-09-21 21:39:00 Diogenes Eckert Uni [facility] URINALYSIS 2022-09-21 21:39:00 Diogenes Eckert [facility] URINE CULTURE 2022-09-21 21:39:00 Diogenes Eckert [facility] LACTIC ACID WHOLE BLOOD 2022-09-21 21:39:00 Diogenes Eckert B [facility] CONSENT/REFUSAL FOR DIAGNOSIS AND TREATMENT 2022-09-21 21:11:56 Doctor Unassigned, [facility] CONSENT/REFUSAL FOR DIAGNOSIS AND TREATMENT 2022-09-21 21:11:56 Doctor Unassigned, [facility] HOSPITAL ADMISSION 2022-09-21 06:01:00 Doctor Un assigned, [facility] HOSPITAL ADMISSION 2022-09-21 06:01:00 Doctor Un assigned, [facility] FL TIME OR (NON-REPORTABLE) 2022-09-17 22:06:20 Aleja [facility] FL TIME OR (NON-REPORTABLE) 2022-09-17 22:06:20 Aleja [facility] URINE CULTURE 2022-09-17 21:43[facility] STENT URETER 2022-09-17 20:59:00 Chris Crane [facility] RETROGRADE PYELOGRAM 2022-09-17 20:59:00 Charlene Crane [facility] CONSENT/REFUSAL FOR DIAGNOSIS AND TREATMENT 2022-09-17 19:44:57 Doctor Unassigned, [facility] CONSENT/REFUSAL FOR DIAGNOSIS AND TREATMENT 2022-09-17 19:44:57 Doctor Unassigned, [facility] ASSIGNMENT OF BENEFITS 2022-09-17 19:43:58 Docto r Unassigned, [facility] ASSIGNMENT OF BENEFITS 2022-09-17 19:43:58 Docto r Unassigned, [facility] DAY SURGERY - [place] 2022-09-17 06:01:00 Doctor Unassigned, [facility] POCT URINALYSIS AUTO 2022-09-15 21:31:00 Charlene Crane [facility] CT ABDOMEN PELVIS WO CONTRAST 2022-08-17 21:33:21 Lien Ayala [facility] AUTHORIZATION TO RELEASE PHI TO [facility] 2022-08-12 06:01:00 Doctor Unassigned, [facility] US RETROPERITONEAL COMPLETE 2022-03-16 15:37:56 Chris Crane [facility] POCT URINALYSIS AUTO 2022-01-25 19:47:00 Charlene Crane [facility] AUTHORIZATION FOR RELEASE OF PHI 2021-11-10 05:01:00 Doctor Unassigned, [facility] Encounters Start Date/Time End Date/Time Encounter Type Admission Type Attending [facility] Care Facility Care Department Encounter ID Source 2024-02-29 13:54:00 Outpatient [facility]ahan[facility]h [facility] [id number] [facility] 2024-02-23 10:30:00 Outpatient Callahan, Parminder [facility] [id number] [facility] 2024-01-30 08:44:00 Outpatient Callahan Parminder [facility] [id number] [facility] 2024-01-26 13:57:00 Outpatient Callahan, Parminder STL[facility] ST[facility] [id number] [facility] 2023-02-23 15:14:55 Outpatient [facility] [id number] [facility] 2023-02-15 07:48:00 Outpatient Callahan, Parminder STLMLC STL[facility]C [id number] [facility] 2023-02-03 14:02:22 Outpatient [facility] [id number] [facility] 2023-01-26 10:38:00 Outpatient Callahan, Parminder STLMLC STL[facility]C [id number] [facility] 2023-01-10 10:39:33 Outpatient [facility] [id number] [facility] 2022-10-26 15:46:01 Outpatient Callahan, Parminder STLMLC STL[facility]C [id number] [facility] 2022-09-20 10:55:47 Outpatient CHRIS KELLEY [facility] [id number] [facility] 2022-07-27 11:26:02 Outpatient Callahan, Parminder STLMLC STLMLC [id number] [facility] 2022-07-15 15:14:16 Outpatient [facility] [id number] [facility] 2022-07-13 10:08:40 Outpatient [facility] [id number] [facility] 2022-07-12 09:49:05 Outpatient [facility] [id number] [facility] 2022-07-07 16:25:20 Outpatient [facility] [id number] [facility] 2022-07-06 14:50:41 Outpatient [facility] [id number] [facility] 2022-01-27 09:17:01 Outpatient Callahan, Parminder STLMLC ST[facility]C [id number] [facility] 2021-12-28 14:58:02 Outpatient Callahan, Parminder [facility]C ST[facility] [id number] [facility] 2021-12-23 10:50:32 Outpatient Callahan, Parminder ST[facility] ST[facility] [id number] [facility] 2021-09-07 10:55:02 Outpatient Callahan, Parminder [facility] STL[facility]C [id number] [facility] 2021-09-02 14:16:27 Outpatient Callahan, Parminder ST[facility] STL[facility] [id number] [facility] 2021-09-02 14:04:31 Outpatient Callahan, Parminder ST[facility]C STL[facility]C [id number] [facility] 2021-09-02 13:55:58 Outpatient Callahan, Parminder [facility] ST[facility] [id number] [facility] 2021-09-02 13:16:30 Outpatient Callahan, Parminder ST[facility] ST[facility] [id number] [facility] 2021-09-02 13:09:28 Outpatient Callahan, Parminder [facility] ST[facility] [id number] [facility] 2021-09-02 13:08:55 Outpatient Callahan, Parminder [facility] ST[facility] [id number] [facility] 2021-09-02 12:53:51 Outpatient Callahan, Parminder [facility] ST[facility] [id number] [facility] 2021-09-02 12:45:22 Outpatient Callahan, Parminder [facility] ST[facility] [id number] [facility] 2021-09-02 12:36:15 Outpatient Callahan, Parminder [facility] ST[facility] [id number] [facility] 2021-09-02 12:19:27 Outpatient Callahan, Parminder [facility] ST[facility] [id number] [facility] 2021-09-02 12:07:47 Outpatient Callahan, Parminder [facility] ST[facility] [id number] [facility] 2021-09-02 12:07:23 Outpatient Callahan, Parminder STLC STLC [id number] [facility] 2021-09-02 11:44:55 Outpatient Callahan, Parminder STLC STLC [id number] [facility] 2021-09-02 11:42:01 Outpatient Callahan, Parminder STLC STLC [id number] [facility] 2021-09-02 11:39:14 Outpatient Callahan, Parminder STLC STLC [id number] [facility] 2021-09-02 11:33:37 Outpatient Callahan, Parminder STLC STLC [id number] [facility] 2018-10-08 09:57:00 Inpatient E [facility] [id number] [facility] 2025-04-23 00:00:00 2025-04-23 00:00:00 (WELLNESS) [facility] [id number] [facility] 2024-09-06 11:25:03 2024-09-06 11:25:03 Outpatient SFA SFA [id number] Jace F Tanmay 2024-09-06 00:00:00 2024-09-06 00:00:00 Outpatient Visit SFA [id number] Jace F Tanmay 2024-02-29 00:00:00 2024-02-29 00:00:00 OFFICE VISIT ESTAB PT LEVEL 4 STLMLC STLC [id number] [facility] 2024-01-30 00:00:00 2024-01-30 00:00:00 PREV VISIT EST AGE 40-64 STLMLC STLMLC [id number] [facility] 2024-01-09 00:00:00 2024-01-09 00:00:00 (TEL) STLMLC STLMLC [id number] [facility] 2023-10-06 14:52:52 2023-10-06 14:52:[address] [facility] [id number] Jace Donato 2023-07-04 14:25:14 2023-07-04 14:25:[address] [facility] [id number] Jace Donato 2023-05-11 10:21:34 2023-05-11 10:21:[address] [facility] [id number] Jace Donato 2023-04-21 00:00:00 2023-04-21 00:00:00 Outpatient BETTY TONY [facility] [id number] [facility] 2023-04-08 00:00:00 2023-04-08 00:00:00 Outpatient BHARTI CHEN [facility] [id number] [facility] 2023-03-09 14:40:00 2023-03-09 14:40:00 Outpatient KARMEN CALLAHAN [facility] [id number] [facility] 2023-03-07 00:00:00 2023-03-07 00:00:00 Outpatient BHARTI CHEN [facility] [id number] [facility] 2023-02-23 16:30:00 2023-02-23 16:30:00 Outpatient LIEN BENJAMIN [facility] [id number] [facility] 2023-02-21 07:08:24 2023-02-21 23:59:00 Outpatient BETTY TONY [facility] [id number] [facility] 2023-02-21 07:08:24 2023-02-21 23:59:00 Hospital Encounter Betty Iverson [facility] 1.2.840.114 350.1.13.10 4.2.7.2.686 [id number] [facility] 2023-02-17 00:00:00 2023-02-17 00:00:00 OFFICE VISIT ESTAB PT LEVEL 3 [facility] STLC [id number] [facility] 2023-02-15 00:00:00 2023-02-15 00:00:00 Orders Only Doctor Unassigned, [facility] 1.2.840.114 350.1.13.10 4.2.7.2.686 [id number] [facility] 2023-02-11 00:00:00 2023-02-11 00:00:00 Telephone Adrian [facility] 1.2.840.114 350.1.13.10 4.2.7.2.686 [id number] [facility] 2023-02-07 00:00:00 2023-02-07 00:00:00 Orders Only Doctor Unassigned, [facility] 1.2.840.114 350.1.13.10 4.2.7.2.686 [id number] [facility] 2023-02-04 13:30:00 2023-02-04 13:45:00 Warhead Maintenance Specialist Visit Lab, Ang - Db [facility] 1..840.114 350.1.13.10 4.2.7.2.686 [id number] [facility] 2023-02-04 11:30:00 2023-02-04 12:45:27 Outpatient R CORKY [facility] [id number] [facility] 2023-02-04 11:30:00 2023-02-04 12:45:27 Office Visit [facility] 1.2.840.114 350.1.13.10 4.2.7.2.686 [id number] [facility] 2023-02-04 00:00:00 2023-02-04 00:00:00 (TEL) STLMLC STLC [id number] [facility] 2023-02-04 00:00:00 2023-02-04 00:00:00 Patient Secure Msg Doctor Unassigned, [facility] 1..840.114 350.1.13.10 4.2.7.2.686 [id number] [facility] 2023-02-02 00:00:00 2023-02-02 00:00:00 (TEL) STLMLC STLMLC [id number] [facility] 2023-01-26 11:00:00 2023-01-26 11:00:00 Outpatient LIEN BENJAMIN [facility] [id number] [facility] 2023-01-25 00:00:00 2023-01-25 00:00:00 Orders Only Doctor Unassigned, [facility] 1.840.114 350.1.13.10 4.2.7.2.686 [id number] [facility] 2023-01-10 00:00:00 2023-01-10 00:00:00 Telephone Betty Iverson [facility] FILE CLERK [facility] ..840.114 350.1.13.10 4.2.7.2.686 [id number] [facility] 2023-01-07 00:00:00 2023-01-07 00:00:00 Outpatient LIEN BENJAMIN [facility] [id number] [facility] 2023-01-06 00:00:00 2023-01-06 00:00:00 Case Management Betty Iverson [facility] FILE CLERK [facility] & CHILD [facility] ..840.114 350.1.13.10 4.2.7.2.686 [id number] [facility] 2023-01-06 00:00:00 2023-01-06 00:00:00 Patient Secure Msg Betty Iverson [facility] FILE CLERK [facility] & [facility]ILD [facility] 1.2.840.114 350.1.13.10 4.2.7.2.686 [id number] [facility] 2023-01-05 14:30:00 2023-01-05 15:33:17 Outpatient R WILLYZAYRA BETTY [facility] [id number] [facility] 2023-01-05 14:30:00 2023-01-05 15:33:17 Office Visit Betty Iverson [facility] FILE CLERK [facility] & CHILD [facility] 1.2.840.114 350.1.13.10 4.2.7.2.686 [id number] [facility] 2023-01-05 00:00:00 2023-01-05 00:00:00 Orders Only Doctor Unassigned, [facility] 1.2.840.114 350.1.13.10 4.2.7.2.686 [id number] [facility] 2022-12-31 00:00:00 2022-12-31 00:00:00 PREV VISIT EST AGE 40-64 [facility] [id number] [facility] 2022-12-03 00:00:00 2022-12-03 00:00:00 Outpatient LIEN BENJAMIN [facility] [id number] [facility] 2022-11-24 16:43:33 2022-11-24 16:43:33 Outpatient SFA WANDA [id number] Jace Donato 2022-11-24 00:00:00 2022-11-24 00:00:00 (TEL) STLC STLC [id number] [facility] 2022-11-19 14:16:56 2022-11-19 14:16:56 Outpatient SFA SFA [id number] Jace Donato 2022-10-28 11:30:00 2022-10-28 12:18:35 Outpatient R LIEN AYALA [facility] [id number] [facility] 2022-10-28 11:30:00 2022-10-28 12:18:35 Office Visit Lien Ayala [facility] 1.2840.114 350.1.13.10 4.2.7.2.686 [id number] [facility] 2022-10-08 00:00:00 2022-10-08 00:00:00 OFFICE VISIT ESTAB PT LEVEL 3 STLMLC STLMLC [id number] [facility] 2022-10-07 00:00:00 2022-10-07 00:00:00 (TEL) STLMLC STLMLC [id number] [facility] 2022-09-23 00:00:00 2022-09-23 00:00:00 Transition of Care Katie Burrell [facility] 1.2840.114 350.1.13.10 4.2.7.2.686 [id number] [facility] 2022-09-21 15:22:00 2022-09-22 17:47:00 Inpatient [facility] [id number] [facility] 2022-09-21 15:22:00 2022-09-22 17:47:00 [facility] 1.20.114 350.1.13.10 4.2.7.2.686 [id number] [facility] 2022-09-22 09:00:00 2022-09-22 10:46:[address] [facility] 1.2840.114 350.1.13.10 4.2.7.2.686 [id number] [facility] 2022-09-21 00:00:00 2022-09-21 00:00:00 Telephone [facility] 1.2.840.114 350.1.13.10 4.2.7.2.686 [id number] [facility] 2022-09-21 00:00:00 2022-09-21 00:00:00 Case Management Mavishao Z[facility] 1.2.840.114 350.1.13.10 4.2.7.2.686 [id number] [facility] 2022-09-17 13:43:00 2022-09-17 17:35:00 [facility] SUDenise [id number] [facility] 2022-09-17 13:43:00 2022-09-17 17:35:00 Hospital Encounter Royce [facility] ([facility]) 1.2.840.114 350.1.13.10 4.2.7.2.686 [id number] [facility] 2022-09-17 14:39:00 2022-09-17 15:53:00 Surgery Royce [facility] 1.2.840.114 350.1.13.10 4.2.7.2.686 [id number] [facility] 2022-09-17 00:00:00 2022-09-17 00:00:00 Case Management Bryan Masterson [facility] 1.2.840.114 350.1.13.10 4.2.7.2.686 [id number] [facility] 2022-09-15 15:15:00 2022-09-15 16:16:36 [facility] [id number] [facility] 2022-09-15 15:15:00 2022-09-15 16:16:36 Office Visit Chris Crane [facility] 1.2.840.114 350.1.13.10 4.2.7.2.686 [id number] [facility] 2022-09-09 09:15:00 2022-09-09 09:15:00 [facility] [id number] [facility] 2022-08-24 00:00:00 2022-08-24 00:00:00 (TEL) STLMLC STLMLC [id number] [facility] 2022-08-20 00:00:00 2022-08-20 00:00:00 Case Management Gisell Ayalatney [facility] 1.2.840.114 350.1.13.10 4.2.7.2.686 [id number] [facility] 2022-08-17 14:58:30 2022-08-17 23:59:00 Hospital Encounter Gisell Ayalatney [facility] 1.2840.114 350.1.13.10 4.2.7.2.686 [id number] [facility] 2022-08-17 08:45:00 2022-08-17 09:00:00 Warhead Maintenance Specialist Visit Pob, Adc Lab Main Lucy [facility] 1.2.840.114 350.1.13.10 4.2.7.2.686 [id number] [facility] 2022-08-17 08:45:00 2022-08-17 08:45:00 Outpatient R [facility] [id number] [facility] 2022-08-12 00:00:00 2022-08-12 00:00:00 Orders Only Doctor Unassigned, Bradner [facility] 1.2840.114 350.1.13.10 4.2.7.2.686 [id number] [facility] 2022-08-02 00:00:00 2022-08-02 00:00:00 [facility] 1.2.840.114 350.1.13.10 4.2.7.2.686 [id number] [facility] 2022-07-28 10:30:00 2022-07-28 11:07:33 Outpatient R LUCY [facility] [id number] [facility] 2022-07-28 10:30:00 2022-07-28 11:07:33 [facility] 1.2.840.114 350.1.13.10 4.2.7.2.686 [id number] [facility] 2022-07-28 00:00:00 2022-07-28 00:00:00 OFFICE VISIT ESTAB PT LEVEL 4 STLMLC STLMLC [id number] [facility] 2022-07-22 09:15:00 2022-07-22 09:15:00 Outpatient R ZOIE VASQUEZ [facility] [id number] [facility] 2022-07-13 09:40:00 2022-07-13 12:09:13 Office Visit Karmen Callahan [facility] [address] 1.2.840.114 350.1.13.58 9.2.7.2.686 [id number] [facility] 2022-06-16 00:00:00 2022-06-16 00:00:00 Telephone Betty Be [place] 1.2.840.114 350.1.13.10 4.2.7.2.686 [id number] [facility] 2022-04-28 00:00:00 2022-04-28 00:00:00 OFFICE VISIT EST PT LEVEL 3 STLMLC STLMLC [id number] [facility] 2022-03-16 10:05:27 2022-03-16 23:59:00 [facility] [id number] [facility] 2022-03-16 09:06:20 2022-03-16 23:59:00 Hospital Encounter Royce [facility] 1.2.840.114 350.1.13.10 4.2.7.2.686 [id number] [facility] 2022-03-14 00:00:00 2022-03-14 00:00:00 Patient Secure Msg Doctor Unassigned, Bradner [facility] 1..840.114 350.1.13.10 4.2.7.2.686 [id number] [facility] 2022-02-04 09:00:00 2022-02-04 09:00:00 Outpatient R LEILANI DAVIS [facility] [id number] [facility] 2022-02-03 16:15:00 2022-02-03 16:15:00 Outpatient R PATSY FROST [facility] [id number] [facility] 2022-01-27 00:00:00 2022-01-27 00:00:00 [facility] [id number] [facility] 2022-01-27 00:00:00 2022-01-27 00:00:00 OFFICE VISIT ESTAB PT LEVEL 4 STLMLC STLMLC [id number] [facility] 2022-01-25 13:45:00 2022-01-25 14:56:27 Outpatient [facility] [id number] [facility] 2022-01-25 13:45:00 2022-01-25 14:56:27 [facility] 1..840.114 350.1.13.10 4.2.7.2.686 [id number] [facility] 2022-01-25 13:45:00 2022-01-25 14:56:27 Outpatient R ROYCECHRIS [facility] [id number] [facility] 2022-01-18 14:45:00 2022-01-18 14:45:00 Outpatient PATSY ROSARIO [facility] [id number] [facility] 2022-01-08 00:00:00 2022-01-08 00:00:00 Orders Only Doctor Unassigned, Bradner [facility] 1..840.114 350.1.13.10 4.2.7.2.686 [id number] [facility] 2022-01-07 00:00:00 2022-01-07 00:00:00 (TEL) STLC STLC [id number] [facility] 2021-12-28 12:29:00 2021-12-28 14:39:00 Emergency X SEBASTIAN N[facility]EZ [facility] [id number] [facility] 2021-12-28 12:29:00 2021-12-28 14:39:00 Emergency Sebastian Núñez [facility] 1..840.114 350.1.13.10 4.2.7.2.686 [id number] [facility] 2021-12-28 00:00:00 2021-12-28 00:00:00 (TEL) STLMLC STLMLC [id number] [facility] 2021-12-25 00:00:00 2021-12-25 00:00:00 PREV VISIT EST AGE 40-64 STLMLC STLMLC [id number] [facility] 2021-11-12 00:00:00 2021-11-12 00:00:00 (TEL) STLMLC STLMLC [id number] [facility] 2021-11-10 00:00:00 2021-11-10 00:00:00 Orders Only Doctor Unassigned, Bradner [facility] 1.2.840.114 350.1.13.10 4.2.7.2.686 [id number] [facility] 2021-11-02 13:30:00 2021-11-02 13:35:36 [facility] [id number] [facility] 2021-11-02 13:30:00 2021-11-02 13:35:36 Outpatient R DANTECHARLOTTE [facility] [id number] [facility] 2021-11-02 13:30:00 2021-11-02 13:35:36 Nurse Visit Nurse, [facility] Surgery Gu Royce [facility] BUILDING 1.2.840.114 350.1.13.10 4.2.7.2.686 [id number] 204 [id number] [facility] 2021-11-02 00:00:00 2021-11-02 00:00:00 Letter (Out) Royce [facility] 1.2.840.114 350.1.13.10 4.2.7.2.686 [id number] [facility] 2021-10-29 14:00:00 2021-10-29 14:57:31 [facility] [id number] [facility] 2021-10-29 14:00:00 2021-10-29 14:57:31 Office Visit Chris Crane Joseph [facility] 1.2.840.114 350.1.13.10 4.2.7.2.686 [id number] [facility] 2021-10-29 14:00:00 2021-10-29 14:57:31 Outpatient [facility] [id number] [facility] 2021-10-28 01:14:00 2021-10-28 18:00:00 Outpatient U ADIEL MITCHELL [facility] [id number] [facility] 2021-10-28 01:14:00 2021-10-28 18:00:00 Hospital Encounter Adiel Mitchell [facility] 1.2.840.114 350.1.13.10 4.2.7.2.686 [id number] [facility] 2021-10-28 00:00:00 2021-10-28 00:00:00 [facility]ill [facility] 1.2.840.114 350.1.13.10 4.2.7.2.686 [id number] [facility] 2021-10-28 00:00:00 2021-10-28 00:00:00 Orders Only Doctor Unassigned, Bradner [facility] 1.2.840.114 350.1.13.10 4.2.7.2.686 [id number] [facility] 2021-10-27 05:30:00 2021-10-27 11:13:00 Hospital Encounter [facility] 1.2.840.114 350.1.13.10 4.2.7.2.686 [id number] [facility] 2021-10-27 05:30:00 2021-10-27 11:13:00 Outpatient R [facility] [id number] [facility] 2021-10-27 07:15:00 2021-10-27 09:32:00 Surgery [facility] 1.2.840.114 350.1.13.10 4.2.7.2.686 [id number] [facility] 2021-10-27 00:00:00 2021-10-27 00:00:00 Telephone Royce [facility] 1.2.840.114 350.1.13.10 4.2.7.2.686 [id number] 204 [id number] [facility] 2021-10-24 11:30:00 2021-10-24 11:45:00 Laboratory Only Only, Adc Test Royce [facility] 1.2.840.114 350.1.13.10 4.2.7.2.686 [id number] [facility] 2021-10-24 11:30:00 2021-10-24 11:30:00 Outpatient R ROYCE [facility] [id number] [facility] 2021-10-19 00:00:00 2021-10-19 00:00:00 Telephone Royce [facility] 1.2.840.114 350.1.13.10 4.2.7.2.686 [id number] 204 [id number] [facility] 2021-10-16 00:00:00 2021-10-16 00:00:00 Telephone Royce [facility] 1.2.840.114 350.1.13.10 4.2.7.2.686 [id number] 204 [id number] [facility] 2021-10-14 00:00:00 2021-10-14 00:00:00 Telephone Jeanna Vilchis [facility] 1.2.840.114 350.1.13.10 4.2.7.2.686 [id number] [facility] 2021-10-13 11:26:00 2021-10-13 16:22:00 [facility] [id number] 2021-10-13 11:26:00 2021-10-13 16:22:00 Hospital Encounter [facility] 1.2.840.114 350.1.13.10 4.2.7.2.686 [id number] [facility] 2021-10-13 12:50:00 2021-10-13 14:52:00 Surgery [facility] 1.2.840.114 350.1.13.10 4.2.7.2.686 [id number] [facility] 2021-10-12 09:12:54 2021-10-12 23:59:00 Hospital Encounter Jeanna Vilchis [facility] 1.2840.114 350.1.13.10 4.2.7.2.686 [id number] [facility] 2021-10-12 16:00:00 2021-10-12 16:15:00 Laboratory Only Only, Adc Test Jaden [facility] 1.2840.114 350.1.13.10 4.2.7.2.686 [id number] [facility] 2021-10-12 16:00:00 2021-10-12 16:00:00 Outpatient R KYLE STANLEY [facility] [id number] [facility] 2021-10-12 11:15:00 2021-10-12 11:30:00 Warhead Maintenance Specialist Visit Pob, Adc Lab Main [facility] 1.2840.114 350.1.13.10 4.2.7.2.686 [id number] [facility] 2021-10-12 08:00:00 2021-10-12 08:57:20 Outpatient R JEANNA VILCHIS [facility] [id number] [facility] 2021-10-12 08:00:00 2021-10-12 08:57:20 Office Visit Jeanna Vilchis [facility] 1.2.840.114 350.1.13.10 4.2.7.2.686 [id number] [facility] 2021-10-12 00:00:00 2021-10-12 00:00:00 Letter (Out) Jeanna Vilchis [facility] 1.2.840.114 350.1.13.10 4.2.7.2.686 [id number] [facility] 2021-10-12 00:00:00 2021-10-12 00:00:00 Orders Only Doctor Unassigned, Bradner [facility] 1.2840.114 350.1.13.10 4.2.7.2.686 [id number] [id number] [facility] 2021-10-12 00:00:00 2021-10-12 00:00:00 Prep For Surgery Jeanna Vilchis [facility] 1.2.840.114 350.1.13.10 4.2.7.2.686 [id number] 204 [id number] [facility] 2021-10-12 00:00:00 2021-10-12 00:00:00 Case Management Jeanna Vilchis [facility] 1.2.840.114 350.1.13.10 4.2.7.2.686 [id number] 204 [id number] [facility] 2021-10-12 00:00:00 2021-10-12 00:00:00 Telephone Jeanna Vilchis [facility] 1.2.840.114 350.1.13.10 4.2.7.2.686 [id number] [facility] 2021-10-12 00:00:00 2021-10-12 00:00:00 Telephone JoeyYusufepifaniochrisakosua Pauly [facility] 1..840.114 350.1.13.10 4.2.7.2.686 [id number] [facility] 2021-10-09 10:30:00 2021-10-09 10:30:00 Outpatient R CECILE KEITA DENISE [facility] [id number] [facility] 2021-10-09 10:30:00 2021-10-09 10:30:00 Outpatient R CECILE KEITA DENISE [facility] [id number] [facility] 2021-10-09 10:30:00 2021-10-09 10:30:00 Outpatient R CECILE KEITA DENISE [facility] [id number] [facility] 2021-10-09 10:30:00 2021-10-09 10:30:00 Outpatient R CECILE KEITA DENISE [facility] [id number] [facility] 2021-10-05 10:15:00 2021-10-05 10:30:00 Warhead Maintenance Specialist Visit 2, Adc [facility] 1.2.840.114 350.1.13.10 4.2.7.2.686 [id number] [facility] 2021-10-05 09:00:00 2021-10-05 10:00:16 [facility] [id number] [facility] 2021-10-05 09:00:00 2021-10-05 10:00:16 Office [facility] 1.2.840.114 350.1.13.10 4.2.7.2.686 [id number] [facility] 2021-10-05 09:00:00 2021-10-05 10:00:16 [facility] [id number] [facility] 2021-10-05 00:00:00 2021-10-05 00:00:00 Letter (Out) Royce [facility] 1.2.840.114 350.1.13.10 4.2.7.2.686 [id number] [facility] 2021-09-30 00:00:00 2021-09-30 00:00:00 Orders Only Doctor Unassigned, Bradner [facility] 1.840.114 350.1.13.10 4.2.7.2.686 [id number] [facility] 2021-09-29 13:30:00 2021-09-29 13:30:00 Outpatient R NORA PEACOCK GABRIELA [facility] [id number] [facility] 2021-09-29 06:54:00 2021-09-29 11:22:00 Emergency X NATALYA FUNES [facility] [id number] [facility] 2021-09-29 06:54:00 2021-09-29 11:22:00 Emergency Natalya Funes [facility] 1.840.114 350.1.13.10 4.2.7.2.686 [id number] [facility] 2021-09-29 00:00:00 2021-09-29 00:00:00 (TEL) STLMLC STLMLC [id number] [facility] 2021-09-29 00:00:00 2021-09-29 00:00:00 Orders Only Doctor Unassigned, Bradner [facility] 1.840.114 350.1.13.10 4.2.7.2.686 [id number] [facility] 2021-09-23 00:00:00 2021-09-23 00:00:00 (TEL) STLMLC STLMLC [id number] [facility] 2021-09-22 00:00:00 2021-09-22 00:00:00 (TEL) STLMLC STLMLC [id number] [facility] 2021-09-22 00:00:00 2021-09-22 00:00:00 OFFICE VISIT EST PT LEVEL 3 STLMLC STLMLC [id number] [facility] 2021-09-21 08:39:13 2021-09-21 08:39:13 Outpatient KARMEN CLALAHAN [facility] [id number] [facility] 2021-09-21 00:00:00 2021-09-21 00:00:00 (TEL) STLMLC STLMLC [id number] [facility] 2021-09-18 11:30:00 2021-09-18 11:30:00 Outpatient KELBY SALCEDO [facility] [id number] [facility] 2021-09-17 00:00:00 2021-09-17 00:00:00 Telephone Nilda Serrano [place] [id number] 1..840.114 350.1.13.58 9.2.7.2.686 [id number] [facility] 2021-09-16 00:00:00 2021-09-16 00:00:00 Telephone Karmen Callahan [address] .840.114 350.1.13.58 9.2.7.2.686 [id number] [facility] 2021-08-21 10:30:00 2021-08-21 11:04:23 Outpatient KELBY SALCEDO [facility] [id number] [facility] 2021-08-21 10:30:00 2021-08-21 11:00:00 Office Visit Kelby Noe [facility] 1..840.114 350.1.13.10 4.2.7.2.686 [id number] [facility] 2021-08-21 10:30:00 2021-08-21 10:30:00 Outpatient R KEREN KELBY [facility] [id number] [facility] 2021-08-21 10:30:00 2021-08-21 10:30:00 Outpatient R KELBY NOE [facility] [id number] [facility] 2021-08-10 15:20:00 2021-08-10 15:20:00 Outpatient R PATSY FROST [facility] [id number] [facility] 2021-08-10 15:20:00 2021-08-10 15:20:00 Outpatient R PATSY FROST [facility] [id number] [facility] 2021-08-05 09:00:00 2021-08-05 10:19:52 Outpatient CECILE RODARTE DENISE [facility] [id number] [facility] 2021-08-05 09:00:00 2021-08-05 10:19:52 Office Visit Cecile Keita [facility] 1.840.114 350.1.13.10 4.2.7.2.686 [id number] [facility] 2021-07-27 00:00:00 2021-07-27 00:00:00 Telephone Kelby Noe [facility] 1..840.114 350.1.13.10 4.2.7.2.686 [id number] [facility] 2021-07-24 10:30:00 2021-07-24 12:01:02 Outpatient R KELBY NOE [facility] [id number] [facility] 2021-07-24 10:30:00 2021-07-24 12:01:02 [facility] 1..840.114 350.1.13.10 4.2.7.2.686 [id number] [facility] 2021-07-24 10:30:00 2021-07-24 10:30:00 Outpatient KELBY SALCEDO [facility] [id number] [facility] 2021-07-21 00:00:00 2021-07-21 00:00:00 Ifeoma Mccoy [facility] 1..840.114 350.1.13.10 4.2.7.2.686 [id number] [facility] 2021-07-20 09:04:35 2021-07-20 10:09:39 Office Visit [employer] , Clc Marcos Uronabor Moreau Jarrodcristina Beaulieu [facility] 1..840.114 350.1.13.10 4.2.7.2.686 [id number] [facility] 2021-07-20 09:00:00 2021-07-20 10:09:39 Outpatient Katie LIZZETHCODIE DUNLAPDeena [facility] [id number] [facility] 2021-07-20 09:00:00 2021-07-20 10:09:39 Outpatient ELIZABETH DUQUE [facility] [id number] [facility] 2021-07-20 00:00:00 2021-07-20 00:00:00 Orders Only Doctor Unassigned, [place]ner [facility] 1..840.114 350.1.13.10 4.2.7.2.686 [id number] [facility] 2021-07-01 00:00:00 2021-07-01 00:00:00 (TEL) STLMLC STLMLC [id number] [facility] 2021-06-30 00:00:00 2021-06-30 00:00:00 OFFICE VISIT ESTAB PT LEVEL 4 STLMLC STLMLC [id number] [facility] 2021-06-18 10:30:00 2021-06-18 10:30:00 Outpatient R KELBY NOE [facility] [id number] [facility] 2021-06-18 00:00:00 2021-06-18 00:00:00 Letter (Out) Kelby Noe [facility] 1.2.840.114 350.1.13.10 4.2.7.2.686 [id number] [facility] 2021-06-05 10:00:00 2021-06-05 11:11:01 Outpatient R ERICK PETTIT [facility] [id number] [facility] 2021-06-05 09:59:23 2021-06-05 11:11:01 Office Visit Erick Pettit [facility] NIKKIE [facility]GALDE[facility] 1.2.840.114 350.1.13.10 4.2.7.2.686 [id number] [facility] 2021-06-05 10:00:00 2021-06-05 10:00:00 Outpatient R ERICK PETTIT [facility] [id number] [facility] 2021-06-05 00:00:00 2021-06-05 00:00:00 Orders Only Doctor Unassigned, [place] [address].2.840.114 350.1.13.10 4.2.7.2.686 [id number] [facility] 2021-05-18 00:00:00 2021-05-18 00:00:00 Orders Only Doctor Unassigned, Bradner [facility] 1.2.840.114 350.1.13.10 4.2.7.2.686 [id number] [facility] 2021-05-05 00:00:00 2021-05-05 00:00:00 (TEL) STLMLC STLMLC [id number] [facility] 2021-04-24 10:00:00 2021-04-24 10:00:00 Outpatient R JARROD ORTIZ [facility] [id number] [facility] 2021-03-30 10:00:00 2021-03-30 10:00:00 Outpatient R [facility] [id number] [facility] 2021-02-27 10:00:00 2021-02-27 10:00:00 Outpatient R [facility] [id number] [facility] 2021-02-23 00:00:00 2021-02-23 00:00:00 Outpatient STLMLC STLMLC [id number] [facility] 2021-02-23 00:00:00 2021-02-23 00:00:00 Outpatient STLMLC STLMLC [id number] [facility] 2021-01-26 00:00:00 2021-01-26 00:00:00 Outpatient STLMLC STLMLC [id number] [facility] 2021-01-23 08:50:29 2021-01-23 10:03:02 [facility] 1.2.840.114 350.1.13.10 4.2.7.2.686 [id number] 2021-01-23 08:50:29 2021-01-23 10:03:02 [facility] 1.2.840.114 350.1.13.10 4.2.7.2.686 [id number] [facility] 2021-01-23 08:30:00 2021-01-23 08:30:00 Outpatient R ELIZABETH MOREAU [facility] [id number] [facility] 2021-01-23 00:00:00 2021-01-23 00:00:00 Orders Only Doctor Unassigned, [facility] 1.2.840.114 350.1.13.10 4.2.7.2.686 [id number] 2021-01-23 00:00:00 2021-01-23 00:00:00 Orders Only Doctor Unassigned, [facility] 1.84.114 350.1.13.10 4.2.7.2.686 [id number] [facility] 2021-01-15 00:00:00 2021-01-15 00:00:00 Outpatient STLMLC STLMLC [id number] [facility] 2021-01-11 00:00:00 2021-01-11 00:00:00 Telephone [facility] 1.84.114 350.1.13.10 4.2.7.2.686 [id number] [facility] 2021-01-07 09:07:55 2021-01-07 10:07:55 [facility] 1.114 350.1.13.10 4.2.7.2.686 [id number] [facility] 2021-01-07 09:15:00 2021-01-07 09:15:00 Outpatient R [facility] [id number] [facility] 2021-01-06 00:00:00 2021-01-06 00:00:00 Outpatient STLMLC STLMLC [id number] [facility] 2020-12-12 15:02:22 2020-12-12 16:06:02 Office Visit [facility] 1.284.114 350.1.13.10 4.2.7.2.686 [id number] [facility] 2020-12-12 15:00:00 2020-12-12 15:00:00 Outpatient ERICK OLNG [facility] [id number] [facility] 2020-12-04 00:00:00 2020-12-04 00:00:00 Orders Only Doctor Unassigned, [facility] 1.2.840.114 350.1.13.10 4.2.7.2.686 [id number] [facility] 2020-11-25 00:00:00 2020-11-25 00:00:00 Outpatient STLMLC STLMLC [id number] [facility] 2020-10-23 00:00:00 2020-10-23 00:00:00 Patient Outreach Keyon Marquez [facility] 1..840.114 350.1.13.10 4.2.7.2.686 [id number] [facility] 2020-09-11 00:00:00 2020-09-11 00:00:00 Outpatient STLMLC STLMLC [id number] [facility] 2020-09-11 00:00:00 2020-09-11 00:00:00 Outpatient STLMLC STLMLC [id number] [facility] 2020-08-20 00:00:00 2020-08-20 00:00:00 Orders Only Doctor Unassigned, [facility] 1.2.840.114 350.1.13.10 4.2.7.2.686 [id number] [facility] 2020-08-14 00:00:00 2020-08-14 00:00:00 Outpatient STLMLC STLMLC [id number] [facility] 2020-07-16 00:00:00 2020-07-16 00:00:00 Outpatient STLMLC STLMLC [id number] [facility] 2020-07-08 23:13:00 2020-07-09 05:01:00 Emergency X JERMAINE LE [facility] [id number] [facility] 2020-07-08 23:13:00 2020-07-09 05:01:00 Emergency Rudy, Razia Grant, Jermaine Wong [facility] 1..840.114 350.1.13.10 4.2.7.2.686 [id number] [facility] 2020-03-26 15:00:00 2020-03-26 15:00:00 [facility] [place] [place] [facility] [id number] [facility] 2020-03-24 08:34:00 2020-03-24 08:34:00 [facility] [place] [place] [facility] [id number] [facility] 2020-03-18 16:45:00 2020-03-18 16:45:00 [facility] [place] [place] [facility] [id number] [facility] 2020-03-18 15:30:00 2020-03-18 15:30:00 [facility] [place] [place] [facility] [id number] [facility] 2020-03-05 10:30:00 2020-03-05 10:30:00 [facility] [place] [place] [facility] [id number] [facility] 2020-01-25 09:00:00 2020-01-25 09:30:00 Office Visit Erick Pettit [facility] 1..840.114 350.1.13.10 [id number] [id number] [facility] 2020-01-25 09:00:00 2020-01-25 09:00:00 Outpatient R ERICK PETTIT [facility] [id number] [facility] 2019-12-20 00:00:00 2019-12-20 00:00:00 Case Management Diana Tate [facility] 1..840.114 350.1.13.10 [id number] [id number] [facility] 2019-12-19 14:15:00 2019-12-19 14:15:00 Outpatient R JESSICA HE [facility] [id number] [facility] 2019-12-18 13:45:00 2019-12-18 13:45:00 Outpatient NILS COE [facility] [id number] [facility] 2019-11-13 00:00:00 2019-11-13 00:00:00 Refill Ifeoma Harrell [facility] [place] [id number] 350.1.13.10 4.2.7.2.686 [id number] [facility] 2019-10-22 18:16:28 2019-10-22 18:31:28 Urgent Care Ifeoma Harrell Unknown, Attending [facility] [place] 1.2.840.114 350.1.13.10 4.2.7.2.686 [id number] [facility] 2019-10-22 07:40:00 2019-10-22 07:40:00 Outpatient MATTHEW FREY [facility] [id number] [facility] 2019-07-25 15:59:42 2019-07-25 23:59:00 Outpatient R ERICK PETTIT [facility] [id number] [facility] 2019-04-04 17:21:53 2019-04-06 04:59:59 Phone Message bilylFlavo r MNA Neurosurger y [facility] [id number] Dmitry Gonzalez 2018-12-21 15:05:32 2018-12-23 04:59:59 Phone Message billyFlavo r MNA Neurosurger y [facility] [id number] Dmitry Gonzalez 2018-12-08 18:27:20 2018-12-10 04:59:59 Phone Message nullFlavo r MNA Neurosurger y [facility] [id number] Dmitry Gonzalez 2018-12-07 16:15:00 2018-12-08 04:59:59 Outpatient nullFlavo r MNA Neurosurger y [facility] [id number] Dmitry Gonzalez 2018-12-07 15:09:00 2018-12-08 04:59:00 Outpt Diag Services nullFlavo r [facility] [place] [id number] Dmitry coats Carlos 2018-10-31 17:52:00 2018-11-02 04:59:59 Phone Message nullFlavo r MNA Neurosurger y [facility] [id number] Dmitry coats Carlos 2018-10-27 14:49:00 2018-10-29 04:59:59 Phone Message nullFlavo r MNA Neurosurger y [facility] [id number] Dmitry coats Carlos 2018-10-26 17:15:00 2018-10-27 04:59:59 Outpatient nullFlavo r MNA Neurosurger y [facility] [id number] Dmitry coats Carlos 2018-10-24 13:26:00 2018-10-25 04:59:00 Outpt Diag Services nullFlavo r [facility] Outpatient Imaging [place] [id number] Dmitry coats Carlos 2018-10-17 15:08:00 2018-10-19 04:59:59 Phone Message nullFlavo r MNA Neurosurger y [facility] [id number] Dmitry coats Carlos 2018-10-08 14:37:00 2018-10-11 21:18:00 Inpatient nullFlavo r [facility] [id number] Dmitry coats Carlos Results Test Description Test Time Test Comments Results Result Co mments Source CULTURE, URINE, [id number] 00:00:00REFLEXIVE URINE CULTURECULTURE, URINE 2023-10-08 12:32:59SPECIMEN NUMBER: [id number] CULTURE, URINE SPECIMEN NUMBER: [id number] SPECIMEN COMMENT: URINE SOURCE: URINE REPORT STATUS: FINAL FINAL REPORT: 10/08/2023 50-100,000 CFU/ML UROGENITAL RITA PRESENT NOCOMMON PATHOGENS UNLESS OTHERWISE INDICATED, ALL TESTING PERFORMED AT [facility] [address] [place] [address] AUDIO DIRECTOR: BAM ZHANG M.D. CLIA NUMBER [id number] [place] [place]. [id number], [id number] 00:00:00* Test Item Value Reference Range Interpretation Comme nts CULTURE, URINE (test code = 88753) SPECIMEN NUMBER: [id number] Jace Alexander CalvinPOCT URINALYSIS W/O SPECIFIC [id number] 19:49:00* Test Item Value Reference Range Interpretation Comme nts POCT PH U (test code = 3254) 5 mg/dl 5-8 POCT U LEUK EST (test code = 3263) Neg Negative - Negative POCT U NIT (test code = 3262) Neg Negative - Negati ve POCT U PROT (test code = 3259) Trace Negative - Negat marci POCT U GLU (test code = 3256) Neg Negative - Negati ve POCT U KETONE (test code = 3258) None Negative - Neg ative POCT U BLD (test code = 3257) Trace Negative - [facility]ati ve [facility] SPECIFIC [id number] 19:49:00* Test Item Value Reference Range Interpretation Comme nts POCT PH U (test code = 3254) 5 mg/dl 5-8 POCT U LEUK EST (test code = 3263) Neg Negative - Negative POCT U NIT (test code = 3262) Neg Negative - Negati ve POCT U PROT (test code = 3259) Trace Negative - Negat marci POCT U GLU (test code = 3256) Neg Negative - Negati ve POCT U KETONE (test code = 3258) None Negative - Neg ative POCT U BLD (test code = 3257) Trace Negative - Negati ve [facility] SPECIFIC [id number] 19:49:00* Test Item Value Reference Range Interpretation Comme nts POCT PH U (test code = 3254) 5 mg/dl 5-8 POCT U LEUK EST (test code = 3263) Neg Negative - Negative POCT U NIT (test code = 3262) Neg Negative - Negati ve POCT U PROT (test code = 3259) Trace Negative - Negat amrci POCT U GLU (test code = 3256) Neg Negative - Negati ve POCT U KETONE (test code = 3258) None Negative - Neg ative POCT U BLD (test code = 3257) Trace Negative - Negati ve [facility], TMA, [id number] 00:00:00* Test Item Value Reference Range Interpretation Comme nts CHLAMYDIA, NAAT, URINE (test code = 73427) NEGATIVE GONORRHEA, NAAT, URINE (test code = 41089) NEGATIVE Jace Alexander AustinHIV 1/2 4TH GEN, RFLX [id number] 00:00:00* Test Item Value Reference Range Interpretation Comme nts HIV 1/2 4TH GEN, RFLX CONF ( test code = 3514) NON-REACTIVE Jace Alexander AustinVAGINAL PATHOGENS DNA [id number] 00:00:00* Test Item Value Reference Range Interpretation Comme nts STEVIE SPECIES (test code = 60665) POSITIVE G. VAGINALIS (test code = 98257) POSITIVE T. VAGINALIS (test code = 27371) NEGATIVE Jace Alexander AustinRPR REFLEX TO T. PALLIDUM - [id number] 00:00:00* Test Item Value Reference Range Interpretation Comme nts RPR (test code = 35643) NON-REACTIVE RPR TITER (test code = 3500) NOT INDIC. TITER Jace Alexander AustinPOCT URINALYSIS, [id number] 17:09:00* Test Item Value Reference Range Interpretation Comme nts POCT U SP GRAV (test code = 3255) 1.025 mg/dl 1.005-1.025 POCT PH U (test code = 3254) 6.5 mg/dl 5-8 POCT U LEUK EST (test code = 3263) negative Negative - Negative POCT U NIT (test code = 3262) negative Negative - Negati ve POCT U PROT (test code = 3259) negative Negative - Negative POCT U GLU (test code = 3256) negative Negative - Negati ve POCT U KETONE (test code = 3258) negative Negative - Negative POCT U UROBILI (test code = 3260) 0.2 mg/dl 0.2-1 POCT U BILI (test code = 3261) negative Negative - Negative POCT U BLD (test code = 3257) trace Negative - Negati ve POCT U COLOR (test code = 3266) yellow POCT U APPEAR (test code = 3267) clear Lab Interpretation (test cod e = 18539-3) Normal [facility] URINALYSIS, [id number] 17:09:00 * Test Item Value Reference Range Interpretation Comme nts POCT U SP GRAV (test code = 3255) 1.025 mg/dl 1.005-1.025 POCT PH U (test code = 3254) 6.5 mg/dl 5-8 POCT U LEUK EST (test code = 3263) negative Negative - Negative POCT U NIT (test code = 3262) negative Negative - Negati ve POCT U PROT (test code = 3259) negative Negative - Negative POCT U GLU (test code = 3256) negative Negative - Negati ve POCT U KETONE (test code = 3258) negative Negative - Negative POCT U UROBILI (test code = 3260) 0.2 mg/dl 0.2-1 POCT U BILI (test code = 3261) negative Negative - Negative POCT U BLD (test code = 3257) trace Negative - Negati ve POCT U COLOR (test code = 3266) yellow POCT U APPEAR (test code = 3267) clear Lab Interpretation (test cod e = 01541-2) Normal [facility] URINALYSIS, [id number] 17:09:00 * Test Item Value Reference Range Interpretation Comme nts POCT U SP GRAV (test code = 3255) 1.025 mg/dl 1.005-1.025 POCT PH U (test code = 3254) 6.5 mg/dl 5-8 POCT U LEUK EST (test code = 3263) negative Negative - Negative POCT U NIT (test code = 3262) negative Negative - Negati ve POCT U PROT (test code = 3259) negative Negative - Negative POCT U GLU (test code = 3256) negative Negative - Negati ve POCT U KETONE (test code = 3258) negative Negative - Negative POCT U UROBILI (test code = 3260) 0.2 mg/dl 0.2-1 POCT U BILI (test code = 3261) negative Negative - Negative POCT U BLD (test code = 3257) trace Negative - Negati ve POCT U COLOR (test code = 3266) yellow POCT U APPEAR (test code = 3267) clear Lab Interpretation (test cod e = 11401-7) [facility]OLIC PAN[facility] ([id number])2022-09-21 22:23:24* Test Item Value Reference Range Interpretation Comme nts NA (test code = 0056466146) 142 mmol/L 135-145 K (test code = 7811615696) 4.0 mmol/L 3.5-5.0 CL (test code = 8171243422) 107 mmol/L 98-108 CO2 TOTAL (test code = 9191149995) 28 mmol/L 23-31 AGAP (test code = 4276071676) 7 2-16 BUN (test code = 0818070408) 21 mg/dL 7-23 GLUCOSE (test code = 0732336108) 115 mg/dL 70-110 H CREATININE (test code = 6744049398) 0.90 mg/dL 0.50-1.04 TOTAL BILI (test code = 9503161866) 0.5 mg/dL 0.1-1.1 CALCIUM (test code = 0034592511) 8.8 mg/dL 8.6-10.6 T PROTEIN (test code = 5172221408) 6.6 g/dL 6.3-8.2 ALBUMIN (test code = 3676651823) 3.9 g/dL 3.5-5.0 ALK PHOS (test code = 7494521816) 73 U/L 34-122 ALTv (test code = 1742-6) 12 U/L 5-35 AST(SGOT) (test code = 0229466737) 15 U/L 13-40 eGFR (test code = 5791226466) 66.0 mL/min/1.73m2 HALEY (test code = HALEY) Association of Glomerular Filtration Rate (GFR) and Staging of Kidney Disease* + --+ --+ ------+| GFR (mL/min/1.73 m2) ?| With Kidney Damage ?| ?Without Kidney Damage+ --------+ --------+ +| ?>90 ?| ?Stage one ?| ? Normal ?+ ---+ ---+ -------+| ?60-89 ?| ?Stage two ?| ? Decreased GFR ? + --+ --+ ------+| ?30-59 ?| ?Stage three ?| ? Stage three ? + --+ --+ ------+| ?15-29 ?| ?Stage four ? | ? Stage four ?+ ---+ ---+ -------+| ?<15 (or dialysis) ? ?| ?Stage five ? | ? Stage five ?+ ---+ ---+ -------+ *Each stage assumes the associated GFR level has been in effect for at least three months. ?Stages 1 to 5, with or without kidney disease, indicate chronic kidney disease. Notes: Determination of stages one and two (with eGFR >59mL/min/1.73 m2) requires estimation of kidney damage for at least three months as defined by structural or functional abnormalities of the kidney, manifested by either:Pathological abnormalities or Markers of kidney damage (including abnormalities in the composition of the blood or urine or abnormalities in imaging tests). Lab Interpretation (test code = 82097-0) Abnormal [facility]. METABOLIC PANEL ([id number])2022-09-21 22:23:24* Test Item Value Reference Range Interpretation Comme nts NA (test code = 1382084118) 142 mmol/L 135-145 K (test code = 2116629984) 4.0 mmol/L 3.5-5.0 CL (test code = 8261191648) 107 mmol/L 98-108 CO2 TOTAL (test code = 0838781081) 28 mmol/L 23-31 AGAP (test code = 1406469904) 7 2-16 BUN (test code = 7981394233) 21 mg/dL 7-23 GLUCOSE (test code = 9686691187) 115 mg/dL 70-110 H CREATININE (test code = 5181295883) 0.90 mg/dL 0.50-1.04 TOTAL BILI (test code = 8678421148) 0.5 mg/dL 0.1-1.1 CALCIUM (test code = 2772355456) 8.8 mg/dL 8.6-10.6 T PROTEIN (test code = 2763437057) 6.6 g/dL 6.3-8.2 ALBUMIN (test code = 7889116274) 3.9 g/dL 3.5-5.0 ALK PHOS (test code = 4006136256) 73 U/L 34-122 ALTv (test code = 1742-6) 12 U/L 5-35 AST(SGOT) (test code = 7375481370) 15 U/L 13-40 eGFR (test code = 5730968875) 66.0 mL/min/1.73m2 HALEY (test code = HALEY) Association of Glomerular Filtration Rate (GFR) and Staging of Kidney Disease* + --+ --+ ------+| GFR (mL/min/1.73 m2) ?| With Kidney Damage ?| ?Without Kidney Damage+ --------+ --------+ +| ?>90 ?| ?Stage one ?| ? Normal ?+ ---+ ---+ -------+| ?60-89 ?| ?Stage two ?| ? Decreased GFR ? + --+ --+ ------+| ?30-59 ?| ?Stage three ?| ? Stage three ? + --+ --+ ------+| ?15-29 ?| ?Stage four ? | ? Stage four ?+ ---+ ---+ -------+| ?<15 (or dialysis) ? ?| ?Stage five ? | ? Stage five ?+ ---+ ---+ -------+ *Each stage assumes the associated GFR level has been in effect for at least three months. ?Stages 1 to 5, with or without kidney disease, indicate chronic kidney disease. Notes: Determination of stages one and two (with eGFR >59mL/min/1.73 m2) requires estimation of kidney damage for at least three months as defined by structural or functional abnormalities of the kidney, manifested by either:Pathological abnormalities or Markers of kidney damage (including abnormalities in the composition of the blood or urine or abnormalities in imaging tests). Lab Interpretation (test code = 47642-8) Abnormal [facility] WITH [id number] 22:12:43* Test Item Value Reference Range Interpretation Comme nts WBC (test code = 6690-2) 7.90 See_Comment [Automated [employer]] The system which generated this result transmitted reference range: 4.30 - 11.10 10*3/?L. The reference range was not used to interpret this result as normal/abnormal. RBC (test code = 789-8) 4.26 See_Comment [Automated [employer]] The system which generated this result transmitted reference range: 3.93 - 5.25 10*6/?L. The reference range was not used to interpret this result as normal/abnormal. HGB (test code = 718-7) 12.4 g/dL 11.6-15.0 HCT (test code = 4544-3) 37.6 % 35.7-45.2 MCV (test code = 787-2) 88.3 fL 80.6-95.5 MCH (test code = 785-6) 29.1 pg 25.9-32.8 MCHC (test code = 786-4) 33.0 g/dL 31.6-35.1 RDW-SD (test code = 07674-1) 42.7 fL 39.0-49.9 RDW-CV (test code = 788-0) 13.2 % 12.0-15.5 PLT (test code = 777-3) 296 See_Comment [Automated [employer]] The system which generated this result transmitted reference range: 166 - 358 10*3/?L. The reference range was not used to interpret this result as normal/abnormal. MPV (test code = 34495-8) 9.8 fL 9.5-12.9 NRBC/100 WBC (test code = 8336222052) 0.0 See_Comment [Automated [employer]] The system which generated this result transmitted reference range: 0.0 - 10.0 /100 WBCs. The reference range was not used to interpret this result as normal/abnormal. NRBC x10^3 (test code = 8870095205) See_Comment [Automated [employer]] The system which generated this result transmitted reference range: 10*3/?L. The reference range was not used to interpret this result as normal/abnormal. GRAN MAT (NEUT) % (test code = 770-8) 61.0 % IMM GRAN % (test code = 4460990442) 0.40 % LYMPH % (test code = 736-9) 26.5 % MONO % (test code = 5905-5) 7.1 % EOS % (test code = 713-8) 4.1 % BASO % (test code = 706-2) 0.9 % GRAN MAT x10^3(ANC) (test code = 6246276045) 4.83 10*3/uL 1.88-7.09 IMM GRAN x10^3 (test code = 7991992246) 0.03 10*3/uL 0.00-0.06 LYMPH x10^3 (test code = 731-0) 2.09 10*3/uL 1.32-3.29 MONO x10^3 (test code = 742-7) 0.56 10*3/uL 0.33-0.92 EOS x10^3 (test code = 711-2) 0.32 10*3/uL 0.03-0.39 BASO x10^3 (test code = 704-7) 0.07 10*3/uL 0.01-0.07 [facility] WITH [id number] 22:12:43* Test Item Value Reference Range Interpretation Comme nts WBC (test code = 6690-2) 7.90 See_Comment [Automated messa ge] The system which generated this result transmitted reference range: 4.30 - 11.10 10*3/?L. The reference range was not used to interpret this result as normal/abnormal. RBC (test code = 789-8) 4.26 See_Comment [Automated messa ge] The system which generated this result transmitted reference range: 3.93 - 5.25 10*6/?L. The reference range was not used to interpret this result as normal/abnormal. HGB (test code = 718-7) 12.4 g/dL 11.6-15.0 HCT (test code = 4544-3) 37.6 % 35.7-45.2 MCV (test code = 787-2) 88.3 fL 80.6-95.5 MCH (test code = 785-6) 29.1 pg 25.9-32.8 MCHC (test code = 786-4) 33.0 g/dL 31.6-35.1 RDW-SD (test code = 17598-3) 42.7 fL 39.0-49.9 RDW-CV (test code = 788-0) 13.2 % 12.0-15.5 PLT (test code = 777-3) 296 See_Comment [Automated messa ge] The system which generated this result transmitted reference range: 166 - 358 10*3/?L. The reference range was not used to interpret this result as normal/abnormal. MPV (test code = 85520-8) 9.8 fL 9.5-12.9 NRBC/100 WBC (test code = 9718021622) 0.0 See_Comment [Automated me ssage] The system which generated this result transmitted reference range: 0.0 - 10.0 /100 WBCs. The reference range was not used to interpret this result as normal/abnormal. NRBC x10^3 (test code = 6922292060) See_Comment [Automated me ssage] The system which generated this result transmitted reference range: 10*3/?L. The reference range was not used to interpret this result as normal/abnormal. GRAN MAT (NEUT) % (test code = 770-8) 61.0 % IMM GRAN % (test code = 0760647394) 0.40 % LYMPH % (test code = 736-9) 26.5 % MONO % (test code = 5905-5) 7.1 % EOS % (test code = 713-8) 4.1 % BASO % (test code = 706-2) 0.9 % GRAN MAT x10^3(ANC) (test code = 6336558614) 4.83 10*3/uL 1.88-7.09 IMM GRAN x10^3 (test code = 7398967823) 0.03 10*3/uL 0.00-0.06 LYMPH x10^3 (test code = 731-0) 2.09 10*3/uL 1.32-3.29 MONO x10^3 (test code = 742-7) 0.56 10*3/uL 0.33-0.92 EOS x10^3 (test code = 711-2) 0.32 10*3/uL 0.03-0.39 BASO x10^3 (test code = 704-7) 0.07 10*3/uL 0.01-0.07 [facility] BranchL[facility] Whole [id number] 21:53:08* Test Item Value Reference Range Interpretation Comme nts LACTIC ACID (test code = 3417394636) 0.92 mmol/L 0.50-2.20 Lab Interpretation (test cod e = 35633-3) Normal [facility] [id number] 21:53:08* Test Item Value Reference Range Interpretation Comme nts LACTIC ACID (test code = 5327024229) 0.92 mmol/L 0.50-2.20 Lab Interpretation (test cod e = 43101-6) Normal [facility] [id number] 13:49:38* Test Item Value Reference Range Interpretation Comme nts URINE CULTURE (test code = 630-4) No aerobic growth (< 1000 CFU/mL) [facility] URINALYSIS, [id number] 21:33:00 * Test Item Value Reference Range Interpretation Comme nts POCT U SP GRAV (test code = 3255) 1.030 mg/dl 1.005-1.025 A POCT PH U (test code = 3254) 5.5 mg/dl 5-8 POCT U LEUK EST (test code = 3263) negative Negative - Negative POCT U NIT (test code = 3262) negative Negative - Negative POCT U PROT (test code = 3259) 100 Negative - Negative POCT U GLU (test [...] POCT U APPEAR (test code = 3267) slightly cloudy Lab Interpretation (test code = 45208-5) Abnormal [facility] URINALYSIS, [id number] 21:33:00 * Test Item Value Reference Range Interpretation Comme nts POCT U SP GRAV (test code = 3255) 1.030 mg/dl 1.005-1.025 A POCT PH U (test code = 3254) 5.5 mg/dl 5-8 POCT U LEUK EST (test code = 3263) negative Negative - Negative POCT U NIT (test code = 3262) negative Negative - Negative POCT U PROT (test code = 3259) 100 Negative - Negative POCT U GLU (test [...] POCT U APPEAR (test code = 3267) slightly cloudy Lab Interpretation (test code = 97251-3) Abnormal [facility] URINALYSIS, [id number] 19:47:00 * Test Item Value Reference Range Interpretation Comme nts POCT U SP GRAV (test code = 3255) >1.030 1.005-1.025 A POCT PH U (test code = 3254) 6.0 mg/dl 5-8 POCT U LEUK EST (test code = 3263) negative Negative - Negative POCT U NIT (test code = 3262) negative Negative - Negati ve POCT U PROT (test code = 3259) negative Negative - Negat marci POCT U GLU (test code = 3256) negative Negative - Negati ve POCT U KETONE (test code = 3258) trace Negative - Negative POCT U UROBILI (test code = 3260) 0.2 mg/dl 0.2-1 POCT U BILI (test code = 3261) negative Negative - Negat marci POCT U BLD (test code = 3257) negative Negative - Negati ve POCT U COLOR (test code = 3266) yellow POCT U APPEAR (test code = 3267) clear Lab Interpretation (test cod e = 30569-0) [facility] [id number] 19:47:00 * Test Item Value Reference Range Interpretation Comme nts POCT U SP GRAV (test code = 3255) >1.030 1.005-1.025 A POCT PH U (test code = 3254) 6.0 mg/dl 5-8 POCT U LEUK EST (test code = 3263) negative Negative - Negative POCT U NIT (test code = 3262) negative Negative - Negati ve POCT U PROT (test code = 3259) negative Negative - Negat marci POCT U GLU (test code = 3256) negative Negative - Negati ve POCT U KETONE (test code = 3258) trace Negative - Negative POCT U UROBILI (test code = 3260) 0.2 mg/dl 0.2-1 POCT U BILI (test code = 3261) negative Negative - Negat marci POCT U BLD (test code = 3257) negative Negative - Negati ve POCT U COLOR (test code = 3266) yellow POCT U APPEAR (test code = 3267) clear Lab Interpretation (test cod e = 20715-7) Abnormal [facility] DNA [id number] 00:00:00 * Test Item Value Reference Range Interpretation Comme nts STEVIE SPECIES (test code = 05078) NEGATIVE G. VAGINALIS (test code = 52846) NEGATIVE T. VAGINALIS (test code = 34624) NEGATIVE Jace Alexander TanmayCULTURE, [id number] 00:00:00* Test Item Value Reference Range Interpretation Comme nts CULTURE, URINE (test code = 44533) SPECIMEN NUMBER: [id number] Jace DonatoLIPID [id number] 00:00:00* Test Item Value Reference Range Interpretation Comme nts CHOLESTEROL, TOTAL (test cod e = 2093-3) 165 mg/dL HDL CHOLESTEROL (test code = 2085-9) 55 mg/dL TRIGLYCERIDES (test code = 2571-8) 145 mg/dL LDL-CHOLESTEROL (test code = 20863-2) 85 mg/dL(calc) CHOL/HDLC RATIO (test code = 9830-1) 3.0 (calc) NON HDL CHOLESTEROL (test code = 66625-8) 110 mg/dL(calc) Jace Alexander TanmayCBC (INCLUDES DIFF/PLT)2019-03-16 00:00:00* Test Item Value Reference Range Interpretation Comme nts WHITE BLOOD CELL COUNT (test code = 6690-2) 3.4 Thousand/uL RED BLOOD CELL COUNT (test code = 789-8) 4.50 Million/uL HEMOGLOBIN (test code = 718-7) 13.0 g/dL HEMATOCRIT (test code = 4544-3) 39.9 % MCV (test code = 787-2) 88.7 fL MCH (test code = 785-6) 28.9 pg MCHC (test code = 786-4) 32.6 g/dL RDW (test code = 788-0) 12.9 % PLATELET COUNT (test code = 777-3) 256 Thousand/uL MPV (test code = 776-5) 10.5 fL ABSOLUTE NEUTROPHILS (test code = 751-8) 1176 cells/uL ABSOLUTE BAND NEUTROPHILS (test code = 82928-7) DNR cells/uL ABSOLUTE METAMYELOCYTES (vijay t code = 99990-4) DNR cells/uL ABSOLUTE MYELOCYTES (test code = 01417-6) DNR cells/uL ABSOLUTE PROMYELOCYTES (test code = 38896-2) DNR cells/uL ABSOLUTE LYMPHOCYTES (test code = 731-0) 1418 cells/uL ABSOLUTE MONOCYTES (test cod e = 742-7) 534 cells/uL ABSOLUTE EOSINOPHILS (test code = 711-2) 190 cells/uL ABSOLUTE BASOPHILS (test cod e = 704-7) 82 cells/uL ABSOLUTE BLASTS (test code = 18267-0) DNR cells/uL ABSOLUTE NUCLEATED RBC (test code = 49531-1) DNR cells/uL NEUTROPHILS (test code = 770-8) 34.6 % BAND NEUTROPHILS (test code = 764-1) DNR % METAMYELOCYTES (test code = 740-1) DNR % MYELOCYTES (test code = 749-2) DNR % PROMYELOCYTES (test code = 783-1) DNR % LYMPHOCYTES (test code = 736-9) 41.7 % REACTIVE LYMPHOCYTES (test code = 09707-7) DNR % MONOCYTES (test code = 5905-5) 15.7 % EOSINOPHILS (test code = 713-8) 5.6 % BASOPHILS (test code = 706-2) 2.4 % BLASTS (test code = 709-6) DNR % NUCLEATED RBC (test code = 24603-9) DNR /100WBC Jace DonatoCOMPREHENSIVE METABOLIC [id number] 00:00:00* Test Item Value Reference Range Interpretation Comme nts GLUCOSE (test code = 2345-7) 83 mg/dL UREA NITROGEN (BUN) (test code = 3094-0) 18 mg/dL CREATININE (test code = 2160-0) 0.80 mg/dL eGFR NON-AFR. [place]OVAK (test code = 81398-2) 87 mL/min/1.73m2 eGFR (test code = 41924-7) 101 mL/min/1.73m2 BUN/CREATININE RATIO (test code = 3097-3) NOT APPLICABLE (calc) SODIUM (test code = 2951-2) 141 mmol/L POTASSIUM (test code = 2823-3) 3.8 mmol/L CHLORIDE (test code = 2075-0) 107 mmol/L CARBON DIOXIDE (test code = 2027-9) 27 mmol/L CALCIUM (test code = 46940-2) 9.5 mg/dL PROTEIN, TOTAL (test code = 2885-2) 6.9 g/dL ALBUMIN (test code = 1751-7) 4.2 g/dL GLOBULIN (test code = 10254-7) 2.7 g/dL(calc) ALBUMIN/GLOBULIN RATIO (test code = 1759-0) 1.6 (calc) BILIRUBIN, TOTAL (test code = 1975-2) 0.4 mg/dL ALKALINE PHOSPHATASE (test code = 6768-6) 79 U/L AST (test code = 1920-8) 8 U/L ALT (test code = 1742-6) 8 U/L Jace DonatoCREATINE KINASE, [id number] 00:00:00* Test Item Value Reference Range Interpretation Comme [facility] CREATINE KINASE, TOTAL (test code = 2157-6) 60 U/L Jace DonatoCHEM [id number] 06:11:00* Test Item Value Reference Range Interpretation Comme [facility] eGFR (test code = eGFR) 73 Glucose Lvl (test code = Glucose Lvl) 74 70-99 Creatinine Lvl (test code = Creatinine Lvl) 0.93 0.50-1.40 Sodium Lvl (test code = Sodium Lvl) 140 135-145 BUN (test code = BUN) 18 7-22 Calcium Lvl (test code = Calcium Lvl) 8.9 8.5-10.5 Potassium Lvl (test code = P otassium Lvl) 3.9 3.5-5.1 Chloride Lvl (test code = Chloride Lvl) 106 95-109 CO2 (test code = CO2) 26 24-32 AGAP (test code = AGAP) 11.9 10.0-20.0 [facility] [id number] 06:11:00* Test Item Value Reference Range Interpretation Comme nts WBC (test code = WBC) 9.0 3.7-10.4 Platelet (test code = Platelet) 319 133-450 MPV (test code = MPV) 8.7 7.4-10.4 RDW (test code = RDW) 13.6 11.5-14.5 MCHC (test code = MCHC) 33.2 32.0-36.0 MCH (test code = MCH) 29.6 pg 27.0-31.0 Hct (test code = Hct) 38.3 36.0-48.0 RBC (test code = RBC) 4.30 4.20-5.40 MCV (test code = MCV) 89.1 80.0-98.0 Hgb (test code = Hgb) 12.7 12.0-16.0 Eosinophils (test code = Eosinophils) 2.9 <=4.0 Lymphocytes (test code = Lymphocytes) 28.7 20.0-40.0 Monocytes (test code = Monocytes) 9.5 2.0-12.0 Segs (test code = Segs) 58.7 45.0-75.0 Lymphocytes # (test code = Lymphocytes #) 2.6 1.0-5.5 Eosinophils # (test code = Eosinophils #) 0.3 <=0.5 Basophils (test code = Basophils) 0.2 <=1.0 Neutrophils # (test code = Neutrophils #) 5.3 1.5-8.1 Monocytes # (test code = Monocytes #) 0.9 <=0.8 [facility] HospitalCHEM [id number] 06:24:00* Test Item Value Reference Range Interpretation Comme nts Magnesium Lvl (test code = M agnesium Lvl) 2.0 1.8-2.4 eGFR (test code = eGFR) 68 Potassium Lvl (test code = P otassium Lvl) 3.9 3.5-5.1 Chloride Lvl (test code = Chloride Lvl) 112 95-109 Sodium Lvl (test code = Sodium Lvl) 144 135-145 Creatinine Lvl (test code = Creatinine Lvl) 1.00 0.50-1.40 Glucose Lvl (test code = Glucose Lvl) 90 70-99 BUN (test code = BUN) 21 7-22 CO2 (test code = CO2) 28 24-32 Calcium Lvl (test code = Calcium Lvl) 8.6 8.5-10.5 AGAP (test code = AGAP) 7.9 10.0-20.0 Phosphorus (test code = Phosphorus) 3.9 2.5-4.5 [facility] [id number] 06:24:00* Test Item Value Reference Range Interpretation Comme nts Basophils # (test code = Basophils #) 0.1 <=0.2 Eosinophils # (test code = Eosinophils #) 0.2 <=0.5 Eosinophils (test code = Eosinophils) 2.0 <=4.0 Lymphocytes # (test code = Lymphocytes #) 2.1 1.0-5.5 Monocytes # (test code = Monocytes #) 0.8 <=0.8 Basophils (test code = Basophils) 0.8 <=1.0 Neutrophils # (test code = Neutrophils #) 5.4 1.5-8.1 Lymphocytes (test code = Lymphocytes) 24.5 20.0-40.0 Segs (test code = Segs) 63.8 45.0-75.0 Monocytes (test code = Monocytes) 8.9 2.0-12.0 Platelet (test code = Platelet) 262 133-450 MPV (test code = MPV) 8.2 7.4-10.4 Hgb (test code = Hgb) 12.3 12.0-16.0 RBC (test code = RBC) 4.13 4.20-5.40 WBC (test code = WBC) 8.4 3.7-10.4 MCV (test code = MCV) 88.9 80.0-98.0 MCH (test code = MCH) 29.9 pg 27.0-31.0 Hct (test code = Hct) 36.7 36.0-48.0 RDW (test code = RDW) 13.6 11.5-14.5 MCHC (test code = MCHC) 33.6 32.0-36.0 [facility]ATHY[facility]ID [id number] 06:24:00* Test Item Value Reference Range Interpretation Comme nts Ca Norm WB (test code = Ca Norm WB) 1.14 1.05-1.25 Ca Ion WB (test code = Ca Ion WB) 1.15 1.05-1.25 [facility] HospitalCHEM [id number] 07:49:00* Test Item Value Reference Range Interpretation Comme nts Phosphorus (test code = Phosphorus) 3.2 2.5-4.5 Magnesium Lvl (test code = M agnesium Lvl) 1.9 1.8-2.4 eGFR (test code = eGFR) 81 AGAP (test code = AGAP) 10.9 10.0-20.0 Calcium Lvl (test code = Calcium Lvl) 8.5 8.5-10.5 Potassium Lvl (test code = P otassium Lvl) 3.9 3.5-5.1 Sodium Lvl (test code = Sodium Lvl) 142 135-145 Chloride Lvl (test code = Chloride Lvl) 111 95-109 Creatinine Lvl (test code = Creatinine Lvl) 0.96 0.50-1.40 BUN (test code = BUN) 17 7-22 Glucose Lvl (test code = Glucose Lvl) 126 70-99 CO2 (test code = CO2) 24 24-32 [facility] [id number] 07:49:00* Test Item Value Reference Range Interpretation Comme nts Segs (test code = Segs) 86.1 45.0-75.0 Basophils (test code = Basophils) 0.4 <=1.0 Neutrophils # (test code = Neutrophils #) 12.7 1.5-8.1 Lymphocytes (test code = Lymphocytes) 6.3 20.0-40.0 Monocytes (test code = Monocytes) 7.2 2.0-12.0 Lymphocytes # (test code = Lymphocytes #) 0.9 1.0-5.5 Basophils # (test code = Basophils #) 0.1 <=0.2 Monocytes # (test code = Monocytes #) 1.1 <=0.8 MPV (test code = MPV) 8.3 7.4-10.4 MCHC (test code = MCHC) 33.3 32.0-36.0 RDW (test code = RDW) 13.5 11.5-14.5 Platelet (test code = Platelet) 330 133-450 Hgb (test code = Hgb) 12.8 12.0-16.0 Hct (test code = Hct) 38.4 36.0-48.0 MCV (test code = MCV) 88.1 80.0-98.0 MCH (test code = MCH) 29.4 pg 27.0-31.0 WBC (test code = WBC) 14.7 3.7-10.4 RBC (test code = RBC) 4.36 4.20-5.40 [facility] HospitalPARATHYROID [id number] 07:49:00* Test Item Value Reference Range Interpretation Comme nts Ca Ion WB (test code = Ca Ion WB) 1.15 1.05-1.25 Ca Norm WB (test code = Ca Norm WB) 1.16 1.05-1.25 [facility] HospitalCARDIAC [id number] 18:27:00* Test Item Value Reference Range Interpretation Comme nts Troponin-I (test code = Troponin-I) no gt <=0.40 [facility] HospitalURINE AND [id number] 15:59:00* Test Item Value Reference Range Interpretation Comme nts UA Bacteria (test code = UA Bacteria) Occasional /HPF UA RBC (test code = UA RBC) 0-2 /HPF <=2 UA WBC (test code = UA WBC) 0-2 /HPF UA Sq Epi (test code = UA Sq Epi) Moderate /LPF UA Bili (test code = UA Bili) Negative *NA*(10/08/18 9:59 AM) UA Glucose (test code = UA Glucose) Negative (10/08/18 9:59 AM) UA Ketones (test code = UA Ketones) Negative *NA*(10/08/18 9:59 AM) UA Spec Grav (test code = UA Spec Grav) 1.010 1 UA pH (test code = UA pH) 6.0 1 5.0-8.0 UA Color (test code = UA Color) Yellow *NA*(10/08/18 9:59 AM) UA Turbidity (test code = UA Turbidity) Clear (10/08/18 9:59 AM) UA Nitrite (test code = UA Nitrite) Negative (10/08/18 9:59 AM) UA Protein (test code = UA Protein) Negative (10/08/18 9:59 AM) UA Blood (test code = UA Blood) Small *ABN*(10/08/18 9:59 AM) UA Leuk Est (test code = UA Leuk Est) Negative (10/08/18 9:59 AM) UA Urobilinogen (test code = UA Urobilinogen) 0.2 0.1-1.0 [facility] [id number] 15:21:00* Test Item Value Reference Range Interpretation Comme nts PTT (test code = PTT) 36.5 s 22.9-35.8 PT (test code = PT) 13.3 s 12.0-14.7 INR (test code = INR) 1.03 1 0.85-1.17 Split Point Rapid (test code = Split Point Rapid) 0.6 min R-time Rapid (test code = R- time Rapid) 0.7 min 0.4-0.7 ACT (TEG) Rapid (test code = ACT (TEG) Rapid) 113 s 86-118 G-value Rapid (test code = G -value Rapid) 15.0 5.0-11.6 K-time Rapid (test code = K- time Rapid) 0.8 min 0.6-2.3 Estimated % Lysis Rapid (vijay t code = Estimated % Lysis Rapid) 0.3 <=7.5 Angle Rapid (test code = Ang le Rapid) 79 degrees 64-80 Max Amplitude Rapid (test co de = Max Amplitude Rapid) 75 mm 52-71 [facility]ysideFX B[facility] [id number] 15:20:00* Test Item Value Reference Range Interpretation Comme nts ABO/Rh (test code = ABO/Rh) O POS Antibody Scrn (test code = Antibody Scrn) Negative (10/08/18 9:20 AM) [facility] HospitalCARDIAC [id number] 15:18:00* Test Item Value Reference Range Interpretation Comme nts Troponin-I (test code = Troponin-I) no gt <=0.40 [facility] HospitalCHEM [id number] 15:18:00* Test Item Value Reference Range Interpretation Comme nts Phosphorus (test code = Phosphorus) 3.9 2.5-4.5 Magnesium Lvl (test code = M agnesium Lvl) 1.9 1.8-2.4 Lactic Acid Lvl (test code = Lactic Acid Lvl) 0.8 0.5-2.2 [facility] [id number] 15:18:00* Test Item Value Reference Range Interpretation Comme nts Basophils # (test code = Basophils #) 0.1 <=0.2 Eosinophils # (test code = E osinophils #) 0.1 <=0.5 Eosinophils (test code = Eosinophils) 1.[address] [facility] HospitalannCULTURE, [id number] 00:00:00* Test Item Value Reference Range Interpretation Comme nts CULTURE, URINE (test code = 19437) SPECIMEN NUMBER: [id number] Jace DonatoVAGINAL PATHOGENS DNA [id number] 00:00:00* Test Item Value Reference Range Interpretation Comme nts STEVIE SPECIES (test code = 93774) NEGATIVE G. VAGINALIS (test code = 25606) NEGATIVE T. VAGINALIS (test code = 48992) NEGATIVE Jace DonatoCULTCORA, [id number] 00:00:00* Test Item Value Reference Range Interpretation Comme nts CULTURE, URINE (test code = 73486) SPECIMEN NUMBER: [id number] Jace Donato Notes Date/Time Note Provider Source Jace Donato [facility]2019-05-02 10:20:00EXAM: CT BRAIN WITHOUT CONTRAST DATE: 12/07/2018 10:20 CDT INDICATION: - pt is scheduled w/ Trauma clinic on 12/07 @ 11:15am COMPARISON: CT brain without contrast 10/24/2018 at 08 42. TECHNIQUE: Routine axial images of the brain were obtained without contrast.Coronal and sagittal reformatted images. IV contrast: None. FINDINGS: Surgical changes are again noted related to prior right frontal parietal minerva holes for evacuation of a right cerebral convexity subdural hematoma. Previously demonstrated areas of subdural hemorrhage along the right cerebral convexity and right tentorial leaflet has resolved. Previously seen traumatic subarachnoid hemorrhage along some of the right cerebral convexity sulci has resolved. No new intracranial hemorrhage or mass effect. No midline shift or downward herniation. The gutierrez-white interfaces are preserved. Previously seen small area of hypodense edema or encephalomalacia in the right frontal lobe is less conspicuous on today's exam. The ventricles are normal in size. The basal cisterns are patent. IMPRESSION: No adverse interval change. Previously seen areas of subdural and subarachnoid hemorrhage along the right cerebral convexity have resolved. Postoperative changes related to right frontoparietal cranial minerva holes. KAILEY [id number] 10:20:00* EXAM: CT BRAIN WITHOUT CONTRAST DATE: 12/07/2018 10:20 CDT INDICATION: - pt is scheduled w/ Trauma clinic on 12/07 @ 11:15am COMPARISON: CT brain without contrast 10/24/2018 at 08 42. TECHNIQUE: Routine axial images of the brain were obtained without contrast.Coronal and sagittal reformatted images. IV contrast: None. FINDINGS: Surgical changes are again noted related to prior right frontal parietal minerva holes for evacuation of a right cerebral convexity subdural hematoma. Previously demonstrated areas of subdural hemorrhage along the right cerebral convexity and right tentorial leaflet has resolved. Previously seen traumatic subarachnoid hemorrhage along some of the right cerebral convexity sulci has resolved. No new intracranial hemorrhage or mass effect. No midline shift or downward herniation. The gutierrez-white interfaces are preserved. Previously seen small area of hypodense edema or encephalomalacia in the right frontal lobe is less conspicuous on today's exam. The ventricles are normal in size. The basal cisterns are patent. IMPRESSION: No adverse interval change. Previously seen areas of subdural and subarachnoid hemorrhage along the right cerebral convexity have resolved. Postoperative changes related to right frontoparietal cranial minerva holes. KAILEY JOE [id number] 08:34:00Clinical Indication: -Evaluate for subdural hematoma. Comparison: Comparison is made to CT study of 10/08/2018 TECHNIQUE: CT images were obtained from the foramen magnum to the vertex on a multidetector CT. Coronal and sagittal reconstructions were obtained. CT radiation dose DLP: 436 mGy-cm FINDINGS: BRAIN PARENCHYMA: There is no longer a subdural hematoma along the right frontal convexity or alongthe free edge of the tentorium/falx cerebri. There is no acute cortical infarct or parenchymal hemorrhage. Minimal subcortical gliosis is suspected in the right frontal lobe. Sella and parasellar structures in normal. There is no cerebellar tonsillar ectopia. VENTRICLES: The lateral ventricles, third and fourth ventricles appear unremarkable. The basilar cisterns are normal. ORBITS, MASTOIDS AND PARANASAL SINUSES: The visualized orbits and paranasal sinuses are unremarkable. The mastoid air cells are clear. SKULL: There are 2 minerva holes in the right frontal cranium. IMPRESSION: There is no longer a subdural hematoma along the right frontal convexity or along the free edge of the tentorium/falx cerebri. There is no acute cortical infarct or parenchymal hemorrhage. Minimal subcortical gliosis is suspected in the right frontal lobe. SL: [facility] [id number] 08:34:00* Clinical Indication: -Evaluate for subdural hematoma. Comparison: Comparison is made to CT study of 10/08/2018 TECHNIQUE: CT images were obtained from the foramen magnum to the vertex on a multidetector CT. Coronal and sagittal reconstructions were obtained. CT radiation dose DLP: 436 mGy-cm FINDINGS: BRAIN PARENCHYMA: There is no longer a subdural hematoma along the right frontal convexity or along the free edge of the tentorium/falx cerebri. There is no acute cortical infarct or parenchymal hemorrhage. Minimal subcortical gliosis is suspected in the right frontal lobe. Sella and parasellar structures in normal. There is no cerebellar tonsillar ectopia. VENTRICLES: The lateral ventricles, third and fourth ventricles appear unremarkable. The basilar cisterns are normal. ORBITS, MASTOIDS AND PARANASAL SINUSES: The visualized orbits and paranasal sinuses are unremarkable. The mastoid air cells are clear. SKULL: There are 2 minerva holes in the right frontal cranium. IMPRESSION: There is no longer a subdural hematoma along the right frontal convexity or along the free edge of the tentorium/falx cerebri. There is no acute cortical infarct or parenchymal hemorrhage. Minimal subcortical gliosis is suspected in the right frontal lobe. SL: [facility] [id number] 13:33:00 EXAMINATION: CT head without contrast DATE: 10/08/2018 INDICATION: Subdural hemorrhage. FINDINGS: Noncontrast CT images of the head are compared to an examination performed 8 hours earlier the sameday at an outside institution prior to transfer. Over the interval, minerva hole craniotomies have been performed over the right hemisphere with evacuation of the previously described subdural collection. Extra-axial drainage catheters are in place. There is been some improvement in mass effect and midline shift some residual right to left shift of about 3.5 mm. Brain parenchyma is unremarkable. IMPRESSION: Status post right-sided subdural hematoma evacuation. Unremarkable postoperative appearance. Resident preliminary: 1. 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 2. Extra-axial fluid measuring approximately 9 mm along the right cerebral convexity. 3. Right to left midline shift measures approximately 7 mm centered on the septum pellucidum. 4. 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 [place] SECTION: [facility]2019-03-03 13:33:00* EXAMINATION: CT head without contrast DATE: 10/08/2018 INDICATION: Subdural hemorrhage. FINDINGS: Noncontrast CT images of the head are compared to an examination performed 8 hours earlier the same day at an outside institution prior to transfer. Over the interval, minerva hole craniotomies have been performed over the right hemisphere with evacuation of the previously described subdural collection. Extra-axial drainage catheters are in place. There is been some improvement in mass effect and midline shift some residual right to left shift of about 3.5 mm. Brain parenchyma is unremarkable. IMPRESSION: Status post right-sided subdural hematoma evacuation. Unremarkable postoperative appearance. Resident preliminary: 1. 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 2. Extra-axial fluid measuring approximately 9 mm along the right cerebral convexity. 3. Right to left midline shift measures approximately 7 mm centered on the septum pellucidum. 4. 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 [place] SECTION: [facility]"
[2025-05-15] MEDS ORDERED: HYDROCODONE/APAP 7.5/325 MG TAB ONE (23:32)
[2025-05-15] MEDS ORDERED: LIDOCAINE 1% 20 ML MDV ONE (23:32)
[2025-05-15] MEDS ORDERED: LIDOCAINE 2% W/EPI 1:200,000 MPF 20 ML VIAL IM ONE (23:35)
--- NOTE | 2025-05-16 00:23 | ER ---
Nurse's Notes [facility] Name: Joanna Lim Age: 55 yrs Sex: Female : 1970 Arrival Date: 05/15/2025 Time: 20:16 Bed 16 Private MD: Diagnosis: Localized swelling, mass and lump, trunk-right mid back Presentation: 05/15 21:09 Chief complaint: Patient states: KNOT ON RT MIDDLE BACK X 22 WEEKS. PT REPORTS dd2 DISCOMFORT, NO DRAINAGE. Coronavirus screen: At this time, the client does not indicate any symptoms associated with coronavirus-19. Ebola Screen: No symptoms or risks identified at this time. Initial Sepsis Screen: Does the patient meet any 2 criteria? No. Patient's initial sepsis screen is negative. Does the patient have a suspected source of infection? No. Patient's initial sepsis screen is negative. Risk Assessment: Do you want to hurt yourself or someone else? Patient reports no desire to harm self or others. Onset of symptoms is unknown. 21:09 Method Of Arrival: Ambulatory dd2 21:09 Acuity: JAYSHREE 3 dd2 Triage Assessment: 21:12 General: Appears in no apparent distress. uncomfortable, Behavior is calm, cooperative, dd2 appropriate for age. Pain: Complains of pain in right subscapular area. Derm: SWOLLEN NODULE TO RT MIDDLE BACK. 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 - Infectious Disease History:: Denies. - Social history:: Smoking status: Patient denies any tobacco usage or history of. Screenin/09 00:47 [facility] ED Fall Risk Assessment (Adult) History of falling in the last 3 months, jb4 including since admission No falls in past 3 months (0 pts) Confusion or Disorientation No (0 pts) Intoxicated or Sedated No (0 pts) Impaired Gait No (0 pts) Mobility Assist Device Used No (0 pt) Altered Elimination No (0 pt) Score/Fall Risk Level 0 - 2 = Low Risk Oriented to surroundings, Maintained a safe environment. Abuse screen: Denies threats or abuse. Nutritional screening: No deficits noted. Tuberculosis screening: No symptoms or risk factors identified. Assessment: 00:47 Reassessment: Patient appears in no apparent distress at this time. Patient and/or jb4 family updated on plan of care and expected duration. Pain level reassessed. Patient is alert, oriented x 3, equal unlabored respirations, skin warm/dry/pink. Vital Signs: 05/15 21:09 BP 157 / 100; Pulse 72; Resp 16; Temp 98.6; Pulse Ox 100% on R/A; Weight 88.45 kg; dd2 Height 5 ft. 8 in. ; 21:09 Body Mass Index 29.65 (88.45 kg, 172.72 cm) dd2 ED Course: 20:19 Patient arrived in ED. mr 20:49 Steven Yan PA-C is PHCP. cp 20:49 Kishore Felder DO is Attending Physician. cp 21:12 Triage completed. dd2 21:12 Arm band placed on right wrist. dd2 05/16 00:20 Jose Serrano MD is Referral Physician. cp 00:47 Patient has correct armband on for positive identification. Bed in low position. Call jb4 light in reach. Side rails up X 1. Provided Education on: discharge instructions.. 00:47 No provider procedures requiring assistance completed. Patient did not have IV access jb4 during this emergency room visit. Administered Medications: 05/15 23:40 Drug: Hydrocodone-Acetaminophen PO (7.5 mg-325 mg) 1 tabs PO once; RASS on ADMIN: jb4 Combtv4, Very Agttd3, Agttd2, Rstlss1, AlertClm0, Drwsy-1, Lt Sdtn-2, Mod Sdtn-3, Dp Sdtn-4, UnArsble-5 Route: PO; 05/16 00:45 Follow up: Response: No adverse reaction; Marked relief of symptoms; Pain is decreased jb4 00:00 Drug: Lidocaine Infiltration (1 %) 20 ml 20 ml Infiltration once; with epinephrine jb4 {Note: administered by ER provider.} Volume: 20 ml; Route: Infiltration; Medication: 00:47 VIS not applicable for this client. jb4 Outcome: 00:22 Discharge ordered by . cp 00:47 Discharged to home ambulatory, jb4 00:47 Condition: stable 00:47 Discharge instructions given to patient, Instructed on discharge instructions, follow up and referral plans. medication usage, Demonstrated understanding of instructions, follow-up care, medications, Prescriptions given X 2, 00:50 Patient left the ED. jb4 Signatures: Ramila Haskins, Reg Reg Steven Ivan, PADarrinC PAOrlando Meredith cp, RN RN jb4 SHANDRA ADKINS RN RN dd2
--- NOTE | 2025-05-16 00:23 | EDPHYS ---
Physician Documentation [facility] Name: Joanna Lim Age: 55 yrs Sex: Female : 1970 Arrival Date: 05/15/2025 Time: 20:16 Bed 16 Private MD: ED Physician Kishore Felder HPI: 05/15 22:45 This 55 yrs old Black Female presents to ER via Ambulatory with complaints of Skin sore cp on back. 22:45 tender mass to right mid back that has been there for multiple weeks but over past cp several days become more painful. denies trauma. 22:45 Associated signs and symptoms: Pertinent negatives: fever. 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 - Infectious Disease History:: Denies. - Social history:: Smoking status: Patient denies any tobacco usage or history of. ROS: 22:50 Back: Positive for pain at rest, pain with movement, of the right mid back, tender cp mass, 22:50 Constitutional: Negative for body aches, chills, fever, cp 22:50 Cardiovascular: Negative for chest pain, 22:50 Abdomen/GI: Negative for abdominal pain, 22:50 All other systems are negative, Exam: 22:50 Head/Face: Normocephalic, atraumatic. cp 22:50 Constitutional: The patient appears in no acute distress, alert, awake, non-diaphoretic, non-toxic, well developed, well nourished, 22:50 Eyes: Periorbital structures: appear normal, Conjunctiva: normal, no exudate, no injection, Sclera: no appreciated abnormality, Lids and lashes: appear normal, bilaterally, 22:50 ENT: External ear(s): are unremarkable, Nose: is normal, Mouth: Lips: moist, Oral mucosa: moist, Posterior pharynx: is normal, airway is patent, no erythema, no exudate, 22:50 Chest/axilla: Inspection: normal, 22:50 Cardiovascular: Rate: normal, Rhythm: regular, 22:50 Respiratory: the patient does not display signs of respiratory distress, Respirations: normal, no use of accessory muscles, no retractions, labored breathing, is not present, Breath sounds: are clear throughout, no decreased breath sounds, no stridor, no wheezing, 22:50 Abdomen/GI: Inspection: abdomen appears normal, Palpation: abdomen is soft and non-tender, in all quadrants, 22:50 Back: pain, of the right mid back, tender,fluctuant mass approximately size of soft ball with no erythema noted, Vital Signs: 21:09 BP 157 / 100; Pulse 72; Resp 16; Temp 98.6; Pulse Ox 100% on R/A; Weight 88.45 kg; dd2 Height 5 ft. 8 in. ; 21:09 Body Mass Index 29.65 (88.45 kg, 172.72 cm) dd2 MDM: 21:10 Medical Screening Exam initiated 05/16 00:00 Differential diagnosis: abscess, lipoma, cyst, cellulitis. 00:22 Data reviewed: vital signs, nurses notes. 00:22 I considered the following discharge prescriptions or medication management in the emergency department Medications were administered in the Emergency Department. See OCT. 00:22 Counseling: I had a detailed discussion with the patient and/or guardian regarding the historical points, exam findings, and any diagnostic results supporting the discharge/admit diagnosis. ED course: Vital signs stable. After discussing what I suspect to be a lipoma, I did obtain verbal consent to attempt to aspirate any abscess that may be present. Skin and area was cleaned with Betadine, area was anesthetized with 5 cc of 2% lidocaine with epi. Using an 18-gauge needle I pierced the area with no purulent drainage aspirated. As we discussed I suspect this to be a lipoma that would need surgical evaluation for possible removal. 05/15 22:23 Order name: I\T\D Setup; Complete Time: 23:29 Administered Medications: 05/15 23:40 Drug: Hydrocodone-Acetaminophen PO (7.5 mg-325 mg) 1 tabs PO once; RASS on ADMIN: jb4 Combtv4, Very Agttd3, Agttd2, Rstlss1, AlertClm0, Drwsy-1, Lt Sdtn-2, Mod Sdtn-3, Dp Sdtn-4, UnArsble-5 Route: PO; 05/16 00:45 Follow up: Response: No adverse reaction; Marked relief of symptoms; Pain is decreased jb4 00:00 Drug: Lidocaine Infiltration (1 %) 20 ml 20 ml Infiltration once; with epinephrine jb4 {Note: administered by ER provider.} Volume: 20 ml; Route: Infiltration; Disposition: 05/17 00:39 Chart complete. cp Disposition Summary: 05/16/25 00:22 Discharge Ordered Notes: Location: Home cp Problem: new cp Symptoms: have improved cp Condition: Stable cp Diagnosis - Localized swelling, mass and lump, trunk - right mid back cp Followup: cp - With: Jose Serrano MD - When: 2 - 3 days - Reason: removal of mass of back Discharge Instructions: - Discharge Summary Sheet cp - Lipoma cp - Lipoma Removal cp Forms: - Medication Reconciliation Form cp - Antibiotic Education cp - Prescription Opioid Use cp - Patient Portal Instructions cp - Leadership Thank You Letter cp Prescriptions: - Cephalexin 500 mg Oral Capsule - take 1 capsule ORAL route every 8 hours for 10 days; 30 capsule; Refills: 0, cp Product Selection Permitted - Ibuprofen 800 mg Oral Tablet - take 1 tablet ORAL route every 8 hours As needed take with food; 30 tablet; cp Refills: 0, Product Selection Permitted Addendum: 04:00 Co-signature as Attending Physician, Kishore WALKER reviewed the patient's care t t7 provided by the Advanced Practice Provider and agree with the diagnosis and treatment plan. Signatures: Steven Yan PA-C PA-C cp Bryson, James, RN RN jb4 SHANDRA ADKINS RN RN dd2 Kishore Felder DO DO tt7 Corrections: (The following items were deleted from the chart) 00:34 05/16 22:45 This 55 yrs old Black Female presents to ER via Ambulatory with complaints cp of Skin sore on back. cp
== END 2025-05-16 00:50 | disposition home or self-care (01) ==
LOC: ER 20:16
DX: R22.2 Localized swelling, mass and lump, trunk (principal)
CPT/HCPCS: 99283; J2003